=== PATIENT | female | born 1965 | race Caucasian/White ===

== ENCOUNTER 2016-06-23 14:38 | Outpatient (CLI) | payer OTHER, MEDICAID | END 2016-06-23 14:39 | disposition home or self-care (01) | DX: M47.812 Spondylosis without myelopathy or radiculopathy, cervical region (principal); M50.30 Other cervical disc degeneration, unspecified cervical region ==

== ENCOUNTER 2016-07-12 12:13 | Outpatient (CLI) | payer OTHER, MEDICARE | END 2016-07-12 12:14 | disposition home or self-care (01) | DX: I51.9 Heart disease, unspecified (principal) ==

== ENCOUNTER 2016-11-10 08:10 | Inpatient (IN) | payer OTHER, MEDICARE ==
[2016-11-10] MEDS ORDERED: IPRATROPIUM/ALBUTEROL 3 ML NEB INH ONE (08:17)
[2016-11-10] MEDS ORDERED: SODIUM CHLORIDE 0.9% 1,000 ML IV ONE (08:18)
[2016-11-10] MEDS ORDERED: DEXAMETHASONE 10 MG/ML VIAL IVP STA (08:18)
[2016-11-10] MEDS ORDERED: IPRATROPIUM/ALBUTEROL 3 ML NEB INH STA (08:18)
[2016-11-10] MEDS ORDERED: LEVALBUTEROL 1.25 MG INH ONE ×2 (08:22→10:04)
--- NOTE | 2016-11-10 08:24 | ED Physician Documentation ---
PD HPI DYSPNEA - Stated complaint Stated Complaint: SOA - Chief complaint Chief Complaint: Resp - History obtained from History obtained from: Patient, Family - History of Present Illness Timing - onset: Yesterday Timing - onset during: Rest Timing - duration: Days (1) Timing - details: Gradual onset, Still present Inciting event(s): URI Improved by: Inhaler/neb Worsened by: Exertion, Coughing Associated symptoms: Cough, Wheezing, Other (sinus congestion) Similar symptoms before: Diagnosis (COPD) Recently seen: Not recently seen - Additional information Additional information: 51-year-old female with a history of COPD was well until several days ago when she developed some sinus congestion and a cough. She has had worsening of her symptoms and has developed significant wheezing. She took four neb treatments throughout the night last night without significant relief. She did have temporary relief with each treatment. She is short of breath. She has not had fever and has not coughed up anything. Review of Systems Constitutional: denies: Fever Eyes: denies: Decreased vision Ears: denies: Ear pain Nose: reports: Rhinorrhea / runny nose, Congestion Throat: reports: Sore throat Cardiac: denies: Chest pain / pressure, Palpitations Respiratory: reports: Dyspnea, Cough, Wheezing GI: denies: Abdominal Pain, Nausea, Vomiting : denies: Dysuria, Frequency Skin: denies: Rash Musculoskeletal: denies: Neck pain PD PAST MEDICAL HISTORY - Past Medical History Cardiovascular: Coronary artery disease, [place] Respiratory: Asthma, Pneumonia, Shortness of breath, Sleep apnea, Other Neuro: Headache/migraine, Head injury Endocrine/Autoimmune: None GI: GERD FRENCH [employer]ING [employer]: Ectopic : None HEENT: Other Psych: Depression, Claustrophobia Musculoskeletal: Osteoarthritis, Chronic back pain Derm: None - Past Surgical History Past Surgical History: Yes General: Cholecystectomy, EGD Ortho: Knee replacement /FRENCH B[employer]ING FOL[employer]: Hysterectomy, Other Cardiovascular: Cardiac catheterization HEENT: Rhinoplasty - Present Medications Home Medications: Ambulatory Orders Medication Instructions Recorded Confirmed Albuterol Sulfate [Proair 1 - 52 puffs INH Q4H PRN 11/10/16 11/10/16 Respiclick] Amitriptyline [Elavil] 10 mg PO QPM 11/10/16 11/10/16 Beclomethasone 80 Mcg [Qvar 80] 1 puffs INH BID 11/10/16 11/10/16 Cholecalciferol [Vitamin D3] 5,000 unit PO DAILY 11/10/16 11/10/16 - Allergies Allergies/Adverse Reactions: Allergies Allergy/AdvReac Type Severity Reaction Status Date / Time codeine [Codeine] Allergy Severe Swelling/Hi Verified 11/10/16 08:39 ves erythromycin base Allergy Severe Anaphylaxis Verified 11/10/16 08:39 [Erythromycin Base] gabapentin Allergy Severe Anaphylaxis Verified 11/10/16 08:39 Latex, Natural Rubber Allergy Severe Blisters Verified 11/10/16 08:39 morphine Allergy Severe SOB Verified 11/10/16 08:39 pamabrom [From [facility]] Allergy Severe Respiratory Verified 11/10/16 08:39 pyrilamine maleate * Allergy Severe Respiratory Verified 11/10/16 08:39 [From [facility]] shellfish derived Allergy Severe Anaphylaxis Verified 11/10/16 08:39 venom-honey bee Allergy Severe Anaphylaxis Verified 11/10/16 08:39 [bee venom (honey bee)] chlorhexidine Allergy Intermediate Rash Verified 11/10/16 08:39 diphenhydramine Allergy Diaphoresis Verified 11/10/16 08:39 ondansetron Allergy Respiratory Verified 11/10/16 08:39 CLR AdvReac Severe Respiratory Uncoded 12/24/15 12:14 - Social History Does the pt smoke?: No Smoking Status: Former smoker Does the pt drink ETOH?: Yes Does the pt have substance abuse?: No - Immunizations Immunizations are current?: No Immunizations: Other immun not current - POLST Patient has POLST: No PD ED PE NORMAL - Vitals Vital signs reviewed: Yes (tachypneic, hypertensive and hypoxic) - General General: Well developed/nourished. No: Other (51 y/o female gasping for breath and coughing.) - HEENT HEENT: Atraumatic, PERRL, EOMI, Other (The left TM is inflamed along the umbo the right is clear) - Neck Neck: Supple, no meningeal sign, No bony TTP - Cardiac Cardiac: RRR, No murmur - Respiratory Respiratory: Other (gasping rapid shallow breaths with wheezes throughout. ) - Abdomen Abdomen: Soft, Non tender - Back Back: No CVA TTP, No spinal TTP - Derm Derm: Normal color, No rash - Extremities Extremities: No deformity, No edema - Neuro Neuro: Alert and oriented X 3, No motor deficit, No sensory deficit, Normal speech - Psych Psych: Normal mood, Normal affect Results - Vitals Vitals: Vital Signs - 24 hr 11/10/16 11/10/16 11/10/16 08:13 08:15 08:30 Temperature 36.8 C Heart Rate 99 94 94 Respiratory 42 H 26 H 24 Rate Blood Pressure 166/116 H 166/116 H 152/82 H O2 Saturation 88 L 95 96 11/10/16 11/10/16 09:00 09:25 Temperature Heart Rate 94 95 Respiratory 24 20 Rate Blood Pressure 145/62 H 140/91 H O2 Saturation 97 96 Oxygen O2 Source [With Activity] Room air O2 Source Nasal cannula Oxygen Flow Rate 4 - Labs Labs: Laboratory Tests 11/10/16 11/10/16 11/10/16 08:19 08:19 08:19 WBC 18.3 H RBC 5.08 Hgb 16.0 Hct 48.0 H MCV 94.4 MCH 31.4 H MCHC 33.3 RDW 13.6 Plt Count 212 MPV 8.1 Neut # 15.2 H Lymph # 1.6 [place] # 1.2 H Eos # 0.1 Baso # 0.1 Absolute Nucleated RBC 0.00 Nucleated RBCs 0.0 Sodium 139 Potassium 4.2 Chloride 104 Carbon Dioxide 27 Anion Gap 8.0 BUN 8 Creatinine 0.7 Estimated GFR (MDRD) 88 L Glucose 113 H Calcium 9.1 Total Bilirubin 0.8 AST 20 ALT 23 Alkaline Phosphatase 90 Troponin I < 0.04 B-Natriuretic Peptide Total Protein 7.4 Albumin 3.9 Globulin 3.5 Albumin/Globulin Ratio 1.1 Lipase 28 11/10/16 08:19 WBC RBC Hgb Hct MCV MCH MCHC RDW Plt Count MPV Neut # Lymph # [place] # Eos # Baso # Absolute Nucleated RBC Nucleated RBCs Sodium Potassium Chloride Carbon Dioxide Anion Gap BUN Creatinine Estimated GFR (MDRD) Glucose Calcium Total Bilirubin AST ALT Alkaline Phosphatase Troponin I B-Natriuretic Peptide 142 H Total Protein Albumin Globulin Albumin/Globulin Ratio Lipase - Rads (name of study) 2 view chest Radiology: Prelim report reviewed (Impression: 1. Multifocal right-sided infiltrates. 2 cardiovascular fullness, possible congestive failure.), EMP read indepedently, See rad report Procedures - IVC sono (time) 0930 Bedside IVC sono: IVC measures (cm) (1.57), IVC collapsed c insp (cm) (complete) , Dehydration PD MEDICAL DECISION MAKING - ED course Complexity details: reviewed old records, reviewed results, re-evaluated patient , considered differential, d/w patient, d/w family ED course: 51 y/o female With a history of COPD has developed cough and wheezing over the past 3 days. She normally does not have to use her inhaler more than 3-5 times per week. Today here in the emergency department she has tight wheezes and rhonchi. She is tachypneic and struggling for breath. She is administered dexamethasone 10 mg intravenously and a DuoNeb was administered followed by 3 Xopenex treatments. She remains tachypneic and hypoxic and has evidence of infiltrate on the chest x-ray and elevated white blood cell count. She is administered rocephin 1gm IV and Dr. Smith is consulted in the case and will admit the patient to the hospital. The patient states that this developed rapidly from what she thought was a sinus infection went directly into her chest. She is able to point to her chest where she feels this and she points directly to the area where she has infiltrate on her chest x-ray on the right side. The radiologist reading of the chest x-ray is questioning potential failure I suspect this is unlikely after interrogation of the patient's inferior vena cava shows a collapsing vessel. Departure - Departure Disposition: [facility] DC/Xfer Clinical Impression: COPD with acute exacerbation Pneumonia Qualifiers: Pneumonia type: due to unspecified organism Laterality: right Lung location: unspecified part of lung Qualified Code(s): J18.9 - Pneumonia, unspecified organism Condition: Fair Discharge Date/Time: 11/10/16 10:25
[2016-11-10] MEDS ORDERED: DEXAMETHASONE 10 MG/ML VIAL ONE (08:25)
[2016-11-10 08:28] LABS: BASOPHILS # (AUTO) 0.1 10^3/uL (0.0-0.1); BASOPHILS % (AUTO) 0.5 %; EOSINOPHILS # (AUTO) 0.1 10^3/uL (0.0-0.7); EOSINOPHILS % (AUTO) 0.7 %; LYMPHOCYTES # (AUTO) 1.6 10^3/uL (1.5-3.5); LYMPHOCYTES % (AUTO) 8.7 %; MEAN CORPUSCULAR HEMOGLOBIN 31.4 pg (27.0-31.0); MEAN CORPUSCULAR HGB CONC 33.3 g/dL (32.0-36.0); MEAN CORPUSCULAR VOLUME 94.4 fL (81.0-99.0); MEAN PLATELET VOLUME 8.1 fL (7.9-10.8); MONOCYTES # (AUTO) 1.2 10^3/uL (0.0-1.0); MONOCYTES % (AUTO) 6.8 %; NEUTROPHILS # (AUTO) 15.2 10^3/uL (1.5-6.6); NEUTROPHILS % (AUTO) 83.3 %; RED BLOOD COUNT 5.08 10^6/uL (4.20-5.40); RED CELL DISTRIBUTION WIDTH 13.6 % (12.0-15.0); UNCORRECTED WHITE BLOOD COUNT 18.3 x10^3/uL; WHITE BLOOD COUNT 18.3 x10^3/uL (4.8-10.8)
[2016-11-10 08:40] LABS: ALBUMIN/GLOBULIN RATIO 1.1 (1.0-2.2); BILIRUBIN,TOTAL 0.8 mg/dL (0.2-1.0); CALCIUM 9.1 mg/dL (8.5-10.3); CREATININE 0.7 mg/dL (0.4-1.0); POTASSIUM 4.2 mmol/L (3.5-5.0); TOTAL PROTEIN 7.4 g/dL (6.7-8.2)
[2016-11-10] MEDS ORDERED: LEVALBUTEROL 1.25 MG INH STA ×2 (08:40→10:03)
[2016-11-10] MEDS ORDERED: cefTRIAXone 1 GM in SODIUM CHLORIDE 0.9% MINIBAG 100 ML IV STA (09:10)
--- NOTE | 2016-11-10 09:12 | XRAY Preliminary Report ---
Exam: XR Chest 1 View IMPRESSION: 1. Multifocal right-sided infiltrates. 2. Cardiovascular fullness, possible congestive failure. [facility] SITE ID: [id number]
--- NOTE | 2016-11-10 09:14 | XRAY Report ---
EXAM: CHEST RADIOGRAPHY EXAM DATE: 11/10/2016 08:54 AM. CLINICAL HISTORY: Dyspnea, cough. COMPARISON: 15 October 2015. TECHNIQUE: 1 view. FINDINGS: Lungs/Pleura: Diffuse hazy prominence of lung markings with localized infiltrates in the right lower lobe and the right upper lobe marginating along the minor fissure. No consolidation, definite effusio n, or pneumothorax. Mediastinum: The overall heart size upper limit of normal, probably unchanged. Mild vascular fullness . Other: Degenerative changes. IMPRESSION: 1. Multifocal right-sided infiltrates. 2. Cardiovascular fullness, possible congestive failure. [facility] Referring Provider Line: [phone] SITE ID: [id number]
[2016-11-10] MEDS ORDERED: cefTRIAXone 1 GM VIAL ONE (09:16)
[2016-11-10] MEDS ORDERED: MAGNESIUM SULFATE 2 GRAM 50 ML IV ONE ×2 (09:27→09:29)
[2016-11-10] MEDS ORDERED: DOXYCYCLINE 100 MG TABLET PO STA (09:45)
[2016-11-10] MEDS ORDERED: SODIUM CHLORIDE FLUSH 0.9% 10 ML SYRINGE IVP PRN (09:54)
[2016-11-10] MEDS ORDERED: cefTRIAXone 2 GM in SODIUM CHLORIDE 0.9% MINIBAG 100 ML IV STA (09:58)
[2016-11-10] MEDS ORDERED: DOXYCYCLINE 100 MG TABLET PO ONE (10:01)
[2016-11-10] MEDS ORDERED: SODIUM CHLORIDE INHALATION 3 ML NEB ONE (10:04)
[2016-11-10] MEDS: ALBUTEROL NEB 2.5 MG/3 ML INH PRN ×2 (10:45→15:00)
[2016-11-10] MEDS ORDERED: LORazepam 0.5 MG TABLET PO PRN (10:54)
[2016-11-10] MEDS: MORPHINE 2 MG/ML SYRINGE IVP PRN ×2 (11:06→16:17)
[2016-11-10 11:10] LABS: ABG ANALYSIS TIME 1055; ABG HCO3 25.1 mmol/L (22.0-26.0); ABG O2 DEVICE NASAL CANNULA; ABG OXYGEN SATURATION 98 % (94-98); ABG PCO2 40 mmHg (34-45); ABG PO2 111 mmHg (80-100); ABG SITE OF DRAW RIGHT RADIAL; ALLEN TEST POSITIVE
[2016-11-10] MEDS: methylPREDNISolone SUCCINATE 40 MG/ML VIAL IVP SCH ×3 (11:17→21:48)
[2016-11-10] MEDS: IPRATROPIUM/ALBUTEROL 3 ML NEB INH SCH ×3 (12:30→20:30)
[2016-11-10] MEDS: SODIUM CHLORIDE FLUSH 0.9% 10 ML SYRINGE IVP SCH ×2 (13:08→21:48)
[2016-11-10] MEDS: ACETAMINOPHEN 325 MG TABLET PO PRN (13:10)
[2016-11-10] MEDS: ONDANSETRON ODT 4 MG TABLET TL PRN (18:05)
[2016-11-10] MEDS: DOXYCYCLINE 100 MG TABLET PO SCH (21:48)
[2016-11-11] MEDS: ALBUTEROL NEB 2.5 MG/3 ML INH PRN ×3 (00:05→04:40)
[2016-11-11] MEDS: ACETAMINOPHEN 325 MG TABLET PO PRN ×3 (02:08→22:20)
[2016-11-11] MEDS: guaiFENesin/CODEINE 5 ML UDC PO PRN ×4 (04:20→23:40)
[2016-11-11] MEDS: MORPHINE 2 MG/ML SYRINGE IVP PRN (05:02)
[2016-11-11] MEDS: SODIUM CHLORIDE FLUSH 0.9% 10 ML SYRINGE IVP SCH ×3 (05:03→20:30)
[2016-11-11] MEDS: methylPREDNISolone SUCCINATE 40 MG/ML VIAL IVP SCH (05:03)
--- NOTE | 2016-11-11 06:35 | HISTORY & PHYSICAL EXAMINATION ---
CHIEF COMPLAINT: Shortness of breath and wheeze. HISTORY OF PRESENT ILLNESS: Patient is a 51-year-old female with history of COPD not on home oxygen, tobacco dependence, JAVID not using CPAP, and obesity who presents with a 3 day hx of progressive congestion, cough, sob and wheeze. Pt states she initially developed nasal congestion that went into "my chest". She also reports cough and shortness of breath, as well as muscle and joint aches. On the night prior to admit, she had increased difficulty breathing and coughed up "chunks of whitish stuff covered in blood." She used her nebulizer 4 times between midnight and 7 a.m. with little improvement in her symptoms. She reports chest pain with cough and states her ears hurt and she has head pain. The patient denies nausea and vomiting. She has no dysphagia or heartburn. She states she did not take her temperature, but felt hot and had chills that started on the night prior to admission. She reports chronic lower extremity edema. No change in weight. Denies sick contacts. ALLERGIES: REVIEWED. THE PATIENT HAS A LONG LIST OF ALLERGIES INCLUDING ERYTHROMYCIN, WHICH SHE STATES CAUSES SWELLING. MEDICATIONS 1. Albuterol. 2. Beclomethasone. 3. Amitriptyline. PAST MEDICAL HISTORY: COPD, obstructive sleep apnea, depressive disorder, obesity. SOCIAL HISTORY: The patient is caring for her granddaughter. She smokes about 1/ 2 pack per day. Denies alcohol or drug use. FAMILY HISTORY: Brother of multiple sclerosis at 40. Both her mother and father had coronary artery disease and father had skin cancer. PHYSICAL EXAMINATION VITAL SIGNS: The patient is afebrile with a temperature of 36.8, heart rate is 96, blood pressure 136/90, respiratory rate 24. The patient is 96% on 4 liters and was 88% on room air on admission to the emergency department. GENERAL: The patient is a pleasant obese female. She is alert, has mild to moderate respiratory distress and audible wheeze. She is able to speak in short sentences. Is lying back in a 45-degree angle. HEENT: Pupils equal, round and reactive to light. EOMI, anicteric. Oropharynx is benign. NECK: Supple without adenopathy. HEART: Tachycardic, regular. No murmurs, rubs, or gallops appreciated. LUNGS: Coarse breath sounds, diffuse audible inspiratory and expiratory wheeze. No crackles or rhonchi appreciated. ABDOMEN: Obese, soft, nontender, nondistended. No hepatosplenomegaly appropriated. Positive bowel tones. EXTREMITIES: No clubbing, cyanosis, or edema. LABORATORY: White blood count 18.3, hematocrit 48, platelet count 212. Sodium is 139, potassium is 4.2. BUN is 8, creatinine 0.8. LFTs within normal limits. BNP is 142. Chest x-ray was personally reviewed and interpreted by me and shows right-sided infiltrate. No effusion. Possible mild cardiomegaly. ASSESSMENT AND PLAN: The patient is a 51-year-old female who has a history of chronic obstructive pulmonary disease and tobacco dependence who presents with pneumonia and COPD exacerbation. 1. Acute hypoxic respiratory failure secondary to pneumonia and chronic obstructive pulmonary disease exacerbation. The patient will be admitted to medicine. She was given Decadron in the ER and will be continued on Solu-Medrol 60 mg IV q.6 and tapered as she improves. Continue scheduled DuoNebs and as needed albuterol neb. Antibiotics for pneumonia. Recommend tobacco cessation. 2. Community acquired pneumonia. The patient was started on ceftriaxone and doxycycline. 3. Acute chronic obstructive pulmonary disease exacerbation. Suspect due to pneumonia and ongoing tobacco dependence. Treat with bronchodilators, antibiotics, and pulmonary toilet. 4. Tobacco dependence. Encouraged the patient to quit smoking tobacco. 5. Obesity. Recommend weight reduction. 6. Obstructive sleep apnea. The patient is not using a CPAP. States it was stolen. Encouraged her to follow up with her primary care provider to obtain a new machine. 7. Depressive disorder and anxiety. Suspect this is making it more difficult for her to breathe. Will treat anxiety with Ativan and low dose morphine. Encouraged the patient to follow up with a primary care provider for anxiolytic therapy. CODE STATUS: Discussed with the patient. She is full code. MTDD
[2016-11-11] MEDS: DOXYCYCLINE 100 MG TABLET PO SCH ×2 (08:20→20:26)
[2016-11-11] MEDS: DOCUSATE SODIUM 250 MG CAPSULE PO SCH (08:20)
[2016-11-11] MEDS: POLYETHYLENE GLYCOL 3350 17 GM PACKET PO SCH (08:21)
[2016-11-11] MEDS: SENNA 8.6 MG TABLET PO SCH (08:21)
[2016-11-11] MEDS: ENOXAPARIN 40 MG/0.4 ML SYRINGE SUBQ SCH (08:21)
[2016-11-11] MEDS: IPRATROPIUM/ALBUTEROL 3 ML NEB INH SCH ×3 (09:50→21:00)
[2016-11-11 10:51] LABS: BASOPHILS % (AUTO) 0.1 %; HCT - HEMATOCRIT 47.1 % (37.0-47.0); HGB - HEMOGLOBIN 15.3 g/dL (12.0-16.0); LYMPHOCYTES # (AUTO) 0.8 10^3/uL (1.5-3.5); LYMPHOCYTES % (AUTO) 3.8 %; MEAN CORPUSCULAR HEMOGLOBIN 31.3 pg (27.0-31.0); MEAN CORPUSCULAR HGB CONC 32.5 g/dL (32.0-36.0); MEAN CORPUSCULAR VOLUME 96.1 fL (81.0-99.0); MEAN PLATELET VOLUME 8.5 fL (7.9-10.8); MONOCYTES # (AUTO) 0.7 10^3/uL (0.0-1.0); MONOCYTES % (AUTO) 3.4 %; NEUTROPHILS # (AUTO) 19.9 10^3/uL (1.5-6.6); NEUTROPHILS % (AUTO) 92.7 %; NUCLEATED RED BLOOD CELLS AUTO 0.1 /100WBC; RED CELL DISTRIBUTION WIDTH 13.9 % (12.0-15.0); UNCORRECTED WHITE BLOOD COUNT 21.4 x10^3/uL; WHITE BLOOD COUNT 21.4 x10^3/uL (4.8-10.8)
[2016-11-11 10:58] LABS: CALCIUM 9.9 mg/dL (8.5-10.3); CREATININE 0.8 mg/dL (0.4-1.0); POTASSIUM 4.1 mmol/L (3.5-5.0)
[2016-11-11 11:12] LABS: HEMOGLOBIN A1C 0.71 g/dL
[2016-11-11 11:41] LABS: PLATELET ESTIMATE, MANUAL NORMAL (130-450,000) (NORMAL); PLATELET MORPHOLOGY NORMAL APPEARANCE (NORMAL)
[2016-11-11] MEDS: QUEtiapine 25 MG TABLET PO SCH ×2 (12:00→20:27)
[2016-11-11] MEDS: predniSONE 20 MG TABLET PO SCH (12:04)
--- NOTE | 2016-11-11 14:57 | PROVIDER PROGRESS NOTE ---
Assessment/Plan - Problem List (1) Pneumonia Qualifiers: Pneumonia type: due to unspecified organism Laterality: right Lung location: unspecified part of lung Qualified Code(s): J18.9 - Pneumonia, unspecified organism Assessment/Plan: # Acute hypoxic respiratory failure due to copd exacerbation and CAP supplemental oxygen, abx, steroids and bronchodilators # CAP continue Ceftriaxone and doxycycline # Acute COPD exacerbation not on oxygen at baseline was 88% on RA on admit. continue rx as above # Tobacco dependence recommend cessation # Hyperglycemia - new problem due to steroids pt also eating a lot of sugary / high carb snacks change to carb controlled diet # Morbid obesity BMI 40, encouraged dietary changes and had nutrition make recommendations to pt. - Current Meds Current Meds: Current Medications Generic Name Dose Route Start Last Admin Trade Name Freq PRN Reason Stop Dose Admin Acetaminophen 650 mg 11/10/16 09:54 11/11/16 14:15 Tylenol PO 650 mg Q4HR PRN Administration Pain 1 to 4 Albuterol 2.5 mg 11/10/16 10:15 11/11/16 04:40 INH 11/13/16 10:14 2.5 mg Q2HR PRN Administration Shortness of Air/Wheezing Albuterol/Ipratropium 3 ml 11/10/16 13:00 11/11/16 09:50 Duoneb INH 3 ml RTTID ROMAN Administration Docusate Sodium 250 - 500 mg 11/11/16 09:00 11/11/16 08:20 Colace 250mg Capsule PO 250 mg DAILY ROMAN Administration Doxycycline Hyclate 100 mg 11/10/16 21:00 11/11/16 08:20 Vibramycin PO 100 mg BID ROMAN Administration Enoxaparin Sodium 40 mg 11/11/16 09:00 11/11/16 08:21 Lovenox SUBQ 40 mg DAILY ROMAN Administration Guaifenesin/Codeine Phosphate 5 ml 11/11/16 02:34 11/11/16 12:04 Robitussin Ac PO 5 ml Q6HR PRN Administration Cough Ondansetron HCl 4 mg 11/10/16 09:54 11/10/16 18:05 Zofran Odt TL 4 mg Q6HR PRN Administration Nausea / Vomiting Polyethylene Glycol 17 gm 11/11/16 09:00 11/11/16 08:21 Miralax PO 17 gm DAILY ROMAN Administration Prednisone 60 mg 11/11/16 12:00 11/11/16 12:04 Deltasone PO 60 mg DAILYWM ROMAN Administration Quetiapine Fumarate 25 mg 11/11/16 12:00 11/11/16 12:00 Seroquel PO Not Given BID ROMAN Senna 8.6 - 17.2 mg 11/11/16 09:00 11/11/16 08:21 Senokot PO 8.6 mg DAILY ROMAN Administration Sodium Chloride 10 ml 11/10/16 14:00 11/11/16 14:31 Normal Saline Flush 0.9% IVP 10 ml Q8HR ROMAN Administration - Lab Result Lab results reviewed: Yes Fish Bone Diagrams: 11/11/16 10:34 11/11/16 10:34 - Additional Planning My Orders: My Active Orders 11/10/16 14:00 Sodium Chloride Flush 0.9% [Normal Saline Flush 0.9%] 10 ml IVP Q8HR 11/10/16 21:00 Doxycycline [Vibramycin] 100 mg PO BID 11/11/16 09:00 Docusate Sodium 250Mg Capsule [Colace 250Mg Capsule] 250 - 500 mg PO DAILY Enoxaparin [Lovenox] 40 mg SUBQ DAILY Polyethylene Glycol 3350 [Miralax] 17 gm PO DAILY Senna [Senokot] 8.6 - 17.2 mg PO DAILY 11/11/16 12:00 QUEtiapine [SEROquel] 25 mg PO BID predniSONE [Deltasone] 60 mg PO DAILYWM 11/11/16 Lunch Carb-controlled Diet [DIET] 11/12/16 05:00 CBC W/O DIFF (HEMOGRAM) [HEME] DAILYLAB Chem 8 [BMP - BASIC METABOLIC PANEL] [CHEM] DAILYLAB Subjective - Subjective Patient Reports: Shortness of Breath (pt continues to have sob, wheeze. denies n/v or cp) Nursing Reports: Other (pt's wheeze is not improved with nebs. was better for several hrs after she recieved IV morphine) Objective Vital Signs: Vital Signs - 24 hr 11/10/16 11/10/16 11/10/16 15:00 16:20 17:50 Temperature 36.6 C Heart Rate 89 85 Heart Rate [ 107 H Brachial] Respiratory 20 20 18 Rate Blood Pressure 135/35 H [Right Brachial artery] O2 Saturation 95 11/10/16 11/10/16 11/11/16 20:30 20:45 00:05 Temperature 36.3 C L Heart Rate 93 84 Heart Rate [ 108 H Brachial] Respiratory 22 20 20 Rate Blood Pressure 150/74 H [Right Brachial artery] O2 Saturation 96 11/11/16 11/11/16 11/11/16 00:54 02:15 04:40 Temperature 36.9 C Heart Rate 97 102 H Heart Rate [ 95 Brachial] Respiratory 24 22 20 Rate Blood Pressure 151/76 H [Right Brachial artery] O2 Saturation 92 11/11/16 11/11/16 11/11/16 04:48 08:25 09:50 Temperature 36.6 C 36.5 C Heart Rate 74 Heart Rate [ 67 44 L Brachial] Respiratory 24 20 20 Rate Blood Pressure 124/68 128/46 L [Right Brachial artery] O2 Saturation 100 93 11/11/16 12:41 Temperature 36.5 C Heart Rate Heart Rate [ 80 Brachial] Respiratory 18 Rate Blood Pressure 135/67 H [Right Brachial artery] O2 Saturation 96 Oxygen O2 Source Nasal cannula I&O (Last 24 Hrs): Intake and Output Totals x24h 11/09/16 11/10/16 11/11/16 23:59 23:59 23:59 Intake Total 1640 956 Output Total 500 Balance 1140 956 General: Alert, Oriented x3, No acute distress Cardiovascular: Regular rate, Normal S1, Normal S2, No murmurs Respiratory: Chest non-tender, No respiratory distress, Other (audible wheeze, worse with pt sitting up and when family in room. She appeared comfortable reading when I first entered the room) Abdomen: Normal bowel sounds, Soft, No tenderness, No masses (obese) Extremities: No clubbing, No edema, No tenderness/swelling - Results Results: Laboratory Results WBC 21.4 x10^3/uL (4.8-10.8) H 11/11/16 10:34 RBC 4.90 10^6/uL (4.20-5.40) 11/11/16 10:34 Hgb 15.3 g/dL (12.0-16.0) 11/11/16 10:34 Hct 47.1 % (37.0-47.0) H 11/11/16 10:34 MCV 96.1 fL (81.0-99.0) 11/11/16 10:34 MCH 31.3 pg (27.0-31.0) H 11/11/16 10:34 MCHC 32.5 g/dL (32.0-36.0) 11/11/16 10:34 RDW 13.9 % (12.0-15.0) 11/11/16 10:34 Plt Count 212 10^3/uL (130-450) 11/11/16 10:34 MPV 8.5 fL (7.9-10.8) 11/11/16 10:34 Neut # 19.9 10^3/uL (1.5-6.6) H 11/11/16 10:34 Lymph # 0.8 10^3/uL (1.5-3.5) L 11/11/16 10:34 [place] # 0.7 10^3/uL (0.0-1.0) 11/11/16 10:34 Eos # 0.0 10^3/uL (0.0-0.7) 11/11/16 10:34 Baso # 0.0 10^3/uL (0.0-0.1) 11/11/16 10:34 Absolute Nucleated RBC 0.01 x10^3/uL 11/11/16 10:34 Nucleated RBCs 0.1 /100WBC 11/11/16 10:34 Manual Slide Review Indicated 11/11/16 10:34 Platelet Estimate NORMAL (130-450,000) (NORMAL) 11/11/16 10:34 Platelet Morphology NORMAL APPEARANCE (NORMAL) 11/11/16 10:34 RBC Morph Micro Appear NORMAL APPEARANCE (NORMAL) 11/11/16 10:34 Bld Gas Analysis Time 1055 11/10/16 10:45 Sample Site RIGHT RADIAL 11/10/16 10:45 ABG pH 7.40 (7.35-7.45) 11/10/16 10:45 ABG pCO2 40 mmHg (34-45) 11/10/16 10:45 ABG pO2 111 mmHg (80-100) H 11/10/16 10:45 ABG HCO3 25.1 mmol/L (22.0-26.0) 11/10/16 10:45 ABG Total CO2 26.0 MMOL/L (21.0-29.0) 11/10/16 10:45 ABG O2 Saturation 98 % (94-98) 11/10/16 10:45 ABG Base Excess 0.0 mmol/L (-2.0-3.0) 11/10/16 10:45 Elio Test POSITIVE 11/10/16 10:45 O2 Delivery Device NASAL CANNULA 11/10/16 10:45 O2 Liters/Min 4.00 LPM 11/10/16 10:45 Sodium 137 mmol/L (135-145) 11/11/16 10:34 Potassium 4.1 mmol/L (3.5-5.0) 11/11/16 10:34 Chloride 103 mmol/L (101-111) 11/11/16 10:34 Carbon Dioxide 26 mmol/L (21-32) 11/11/16 10:34 Anion Gap 8.0 (6-13) 11/11/16 10:34 BUN 14 mg/dL (6-20) 11/11/16 10:34 Creatinine 0.8 mg/dL (0.4-1.0) 11/11/16 10:34 Estimated GFR (MDRD) 75 (>89) L 11/11/16 10:34 Glucose 316 mg/dL (70-100) H 11/11/16 10:34 POC Whole Bld Glucose 220 mg/dL (70 - 100) H 11/11/16 07:57 Glycated Hemoglobin 6.0 % (4.6-6.2) 11/11/16 10:34 Estim Average Glucose 126 (70-100) H 11/11/16 10:34 Calcium 9.9 mg/dL (8.5-10.3) 11/11/16 10:34 Total Bilirubin 0.8 mg/dL (0.2-1.0) 11/10/16 08:19 AST 20 IU/L (10-42) 11/10/16 08:19 ALT 23 IU/L (10-60) 11/10/16 08:19 Alkaline Phosphatase 90 IU/L (42-121) 11/10/16 08:19 Troponin I < 0.04 ng/mL (<0.49) 11/10/16 08:19 B-Natriuretic Peptide 142 pg/mL (5-100) H 11/10/16 08:19 Total Protein 7.4 g/dL (6.7-8.2) 11/10/16 08:19 Albumin 3.9 g/dL (3.2-5.5) 11/10/16 08:19 Globulin 3.5 g/dL (2.1-4.2) 11/10/16 08:19 Albumin/Globulin Ratio 1.1 (1.0-2.2) 11/10/16 08:19 Lipase 28 U/L (22-51) 11/10/16 08:19 - Procedures Procedures: Procedures ESOPHAGOGASTRODUODENOSCOPY [EGD] W/CLOSED BIOPSY (11/29/13) MANUAL RUPT JOINT ADHES (04/27/14) TOTAL KNEE REPLACEMENT (06/16/14)
[2016-11-11] MEDS: ONDANSETRON ODT 4 MG TABLET TL PRN (17:29)
[2016-11-11] MEDS ORDERED: BISACODYL 10 MG SUPP PR SCH (19:18)
[2016-11-11] MEDS ORDERED: KETOROLAC 60 MG/2 ML VIAL IVP STA (20:41)
[2016-11-11] MEDS ORDERED: KETOROLAC 30 MG/ML VIAL IVP SCH (22:20)
[2016-11-12] MEDS: ALBUTEROL NEB 2.5 MG/3 ML INH PRN ×2 (02:15)
[2016-11-12] MEDS: ACETAMINOPHEN 325 MG TABLET PO PRN ×2 (02:47→15:17)
[2016-11-12] MEDS: BENZONATATE 100 MG CAPSULE PO PRN (02:48)
[2016-11-12] MEDS: BENZOCAINE/MENTHOL LOZENGE MM PRN ×2 (03:15→13:11)
[2016-11-12 06:39] LABS: HCT - HEMATOCRIT 45.1 % (37.0-47.0); HGB - HEMOGLOBIN 14.9 g/dL (12.0-16.0); MEAN CORPUSCULAR HEMOGLOBIN 31.8 pg (27.0-31.0); MEAN CORPUSCULAR HGB CONC 33.1 g/dL (32.0-36.0); MEAN CORPUSCULAR VOLUME 96.1 fL (81.0-99.0); MEAN PLATELET VOLUME 8.4 fL (7.9-10.8); RED BLOOD COUNT 4.7 10^6/uL (4.20-5.40); RED CELL DISTRIBUTION WIDTH 13.8 % (12.0-15.0); WHITE BLOOD COUNT 21.3 x10^3/uL (4.8-10.8)
[2016-11-12 06:45] LABS: CALCIUM 9.8 mg/dL (8.5-10.3); POTASSIUM 5.5 mmol/L (3.5-5.0)
[2016-11-12] MEDS: SODIUM CHLORIDE FLUSH 0.9% 10 ML SYRINGE IVP SCH ×3 (07:02→20:30)
[2016-11-12] MEDS: IPRATROPIUM/ALBUTEROL 3 ML NEB INH SCH ×4 (07:42→21:05)
[2016-11-12] MEDS ORDERED: SODIUM CHLORIDE 0.9% 1,000 ML IV ONE (07:44)
[2016-11-12] MEDS: guaiFENesin/CODEINE 5 ML UDC PO PRN ×2 (08:48→16:57)
[2016-11-12] MEDS: DOXYCYCLINE 100 MG TABLET PO SCH ×2 (08:51→20:30)
[2016-11-12] MEDS: ENOXAPARIN 40 MG/0.4 ML SYRINGE SUBQ SCH (08:51)
[2016-11-12] MEDS: SENNA 8.6 MG TABLET PO SCH (08:51)
[2016-11-12] MEDS: predniSONE 20 MG TABLET PO SCH (08:51)
[2016-11-12] MEDS: DOCUSATE SODIUM 250 MG CAPSULE PO SCH (08:51)
[2016-11-12] MEDS: POLYETHYLENE GLYCOL 3350 17 GM PACKET PO SCH (08:52)
[2016-11-12] MEDS ORDERED: LACTULOSE 10 GM /15 ML UDC PO SCH (09:00)
--- NOTE | 2016-11-12 12:10 | PROVIDER PROGRESS NOTE ---
Assessment/Plan - Problem List (1) Pneumonia Qualifiers: Pneumonia type: due to unspecified organism Laterality: right Lung location: unspecified part of lung Qualified Code(s): J18.9 - Pneumonia, unspecified organism Assessment/Plan: # Acute hypoxic respiratory failure due to copd exacerbation and CAP overall improving, on RA. supplemental oxygen, abx, steroids and bronchodilators # CAP continue Ceftriaxone and doxycycline # Acute COPD exacerbation not on oxygen at baseline was 88% on RA on admit, now on RA. taper prednisone 60 mg to 40 mg 11/12 continue bronchodilators # Tobacco dependence recommend cessation # Hyperglycemia - new problem due to steroids pt also eating a lot of sugary / high carb snacks improved with change to carb controlled diet # Morbid obesity BMI 40, encouraged dietary changes and had nutrition make recommendations to pt. # DVT ppx Lovenox - Current Meds Current Meds: Current Medications Generic Name Dose Route Start Last Admin Trade Name Freq PRN Reason Stop Dose Admin Acetaminophen 650 mg 11/10/16 09:54 11/12/16 02:47 Tylenol PO 650 mg Q4HR PRN Administration Pain 1 to 4 Albuterol 2.5 mg 11/10/16 10:15 11/12/16 02:15 INH 11/13/16 10:14 2.5 mg Q2HR PRN Administration Shortness of Air/Wheezing Albuterol/Ipratropium 3 ml 11/10/16 13:00 11/12/16 07:42 Duoneb INH 3 ml RTTID ROMAN Administration Benzonatate 100 mg 11/11/16 02:34 11/12/16 02:48 Tessalon PO 100 mg TID PRN Administration Cough Docusate Sodium 250 - 500 mg 11/11/16 09:00 11/12/16 08:51 Colace 250mg Capsule PO 250 mg DAILY ROMAN Administration Doxycycline Hyclate 100 mg 11/10/16 21:00 11/12/16 08:51 Vibramycin PO 100 mg BID ROMAN Administration Enoxaparin Sodium 40 mg 11/11/16 09:00 11/12/16 08:51 Lovenox SUBQ 40 mg DAILY ROMAN Administration Guaifenesin/Codeine Phosphate 5 ml 11/11/16 02:34 11/12/16 08:48 Robitussin Ac PO 5 ml Q6HR PRN Administration Cough Sodium Chloride 1,000 mls @ 200 mls/hr 11/12/16 07:44 11/12/16 08:49 Normal Saline 0.9% IV 11/12/16 12:43 200 mls/hr ONCE ONE Administration Ondansetron HCl 4 mg 11/10/16 09:54 11/11/16 17:29 Zofran Odt TL 4 mg Q6HR PRN Administration Nausea / Vomiting Polyethylene Glycol 17 gm 11/11/16 09:00 11/12/16 08:52 Miralax PO 17 gm DAILY ROMAN Administration Prednisone 60 mg 11/11/16 12:00 11/12/16 08:51 Deltasone PO 60 mg DAILYWM ROMAN Administration Senna 8.6 - 17.2 mg 11/11/16 09:00 11/12/16 08:51 Senokot PO 8.6 mg DAILY ROMAN Administration Sodium Chloride 10 ml 11/10/16 09:54 11/11/16 22:46 Normal Saline Flush 0.9% IVP 10 ml PRN PRN Administration NEEDED PER PROVIDER ORDERS Sodium Chloride 10 ml 11/10/16 14:00 11/12/16 07:02 Normal Saline Flush 0.9% IVP 10 ml Q8HR ROMAN Administration Throat Lozenges 1 lozenge 11/12/16 02:49 11/12/16 03:15 Cepacol MM 1 lozenge Q2HR PRN Administration Throat pain - Lab Result Fish Bone Diagrams: 11/12/16 05:53 11/12/16 05:53 - Additional Planning My Orders: My Active Orders 11/11/16 12:00 predniSONE [Deltasone] 60 mg PO DAILYWM 11/11/16 Lunch Carb-controlled Diet [DIET] 11/12/16 02:49 Benzocaine/Menthol [Cepacol] 1 lozenge MM Q2HR PRN 11/12/16 07:44 Sodium Chloride 0.9% [Normal Saline 0.9%] 1,000 ml IV ONCE Subjective - Subjective Patient Reports: Shortness of Breath (continues to wheeze and feel sob although feeling better than yesterday. doing well with carb controlled diet.) Objective Vital Signs: Vital Signs - 24 hr 11/11/16 11/11/16 11/11/16 12:41 15:57 16:30 Temperature 36.5 C 36.6 C Heart Rate 76 Heart Rate [ 80 70 Brachial] Respiratory 18 16 16 Rate Blood Pressure 135/67 H 129/67 [Right Brachial artery] O2 Saturation 96 92 11/11/16 11/11/16 11/11/16 20:30 21:00 23:43 Temperature 36.7 C 36.6 C Heart Rate 64 Heart Rate [ 67 79 Brachial] Respiratory 16 16 16 Rate Blood Pressure 132/81 H 156/92 H [Right Brachial artery] O2 Saturation 97 92 11/12/16 11/12/16 11/12/16 00:00 02:15 05:00 Temperature 36.6 C Heart Rate 76 78 Heart Rate [ 77 Brachial] Respiratory 16 16 18 Rate Blood Pressure 133/72 H [Right Brachial artery] O2 Saturation 96 11/12/16 11/12/16 11/12/16 07:50 08:31 11:50 Temperature 36.7 C 36.7 C Heart Rate 84 Heart Rate [ 76 66 Brachial] Respiratory 20 16 19 Rate Blood Pressure 137/73 H 84/55 L [Right Brachial artery] O2 Saturation 93 96 Oxygen O2 Source Room air I&O (Last 24 Hrs): Intake and Output Totals x24h 11/10/16 11/11/16 11/12/16 23:59 23:59 23:59 Intake Total 1640 1456 570 Output Total 500 Balance 1140 1456 570 General: Alert (sitting up at side of bed, nad) Cardiovascular: Regular rate, Normal S1, Normal S2 Respiratory: Chest non-tender (diffuse wheeze, less labored/ anxious than yesterday) Abdomen: Normal bowel sounds, Soft (obese), No tenderness, No masses Extremities: No edema, No tenderness/swelling - Results Results: Laboratory Results WBC 21.3 x10^3/uL (4.8-10.8) H 11/12/16 05:53 RBC 4.70 10^6/uL (4.20-5.40) 11/12/16 05:53 Hgb 14.9 g/dL (12.0-16.0) 11/12/16 05:53 Hct 45.1 % (37.0-47.0) 11/12/16 05:53 MCV 96.1 fL (81.0-99.0) 11/12/16 05:53 MCH 31.8 pg (27.0-31.0) H 11/12/16 05:53 MCHC 33.1 g/dL (32.0-36.0) 11/12/16 05:53 RDW 13.8 % (12.0-15.0) 11/12/16 05:53 Plt Count 214 10^3/uL (130-450) 11/12/16 05:53 MPV 8.4 fL (7.9-10.8) 11/12/16 05:53 Neut # 19.9 10^3/uL (1.5-6.6) H 11/11/16 10:34 Lymph # 0.8 10^3/uL (1.5-3.5) L 11/11/16 10:34 [place] # 0.7 10^3/uL (0.0-1.0) 11/11/16 10:34 Eos # 0.0 10^3/uL (0.0-0.7) 11/11/16 10:34 Baso # 0.0 10^3/uL (0.0-0.1) 11/11/16 10:34 Absolute Nucleated RBC 0.01 x10^3/uL 11/11/16 10:34 Nucleated RBCs 0.1 /100WBC 11/11/16 10:34 Manual Slide Review Indicated 11/11/16 10:34 Platelet Estimate NORMAL (130-450,000) (NORMAL) 11/11/16 10:34 Platelet Morphology NORMAL APPEARANCE (NORMAL) 11/11/16 10:34 RBC Morph Micro Appear NORMAL APPEARANCE (NORMAL) 11/11/16 10:34 Bld Gas Analysis Time 1055 11/10/16 10:45 Sample Site RIGHT RADIAL 11/10/16 10:45 ABG pH 7.40 (7.35-7.45) 11/10/16 10:45 ABG pCO2 40 mmHg (34-45) 11/10/16 10:45 ABG pO2 111 mmHg (80-100) H 11/10/16 10:45 ABG HCO3 25.1 mmol/L (22.0-26.0) 11/10/16 10:45 ABG Total CO2 26.0 MMOL/L (21.0-29.0) 11/10/16 10:45 ABG O2 Saturation 98 % (94-98) 11/10/16 10:45 ABG Base Excess 0.0 mmol/L (-2.0-3.0) 11/10/16 10:45 Elio Test POSITIVE 11/10/16 10:45 O2 Delivery Device NASAL CANNULA 11/10/16 10:45 O2 Liters/Min 4.00 LPM 11/10/16 10:45 Sodium 137 mmol/L (135-145) 11/12/16 05:53 Potassium 5.5 mmol/L (3.5-5.0) H 11/12/16 05:53 Chloride 102 mmol/L (101-111) 11/12/16 05:53 Carbon Dioxide 28 mmol/L (21-32) 11/12/16 05:53 Anion Gap 7.0 (6-13) 11/12/16 05:53 BUN 30 mg/dL (6-20) H 11/12/16 05:53 Creatinine 1.0 mg/dL (0.4-1.0) 11/12/16 05:53 Estimated GFR (MDRD) 58 (>89) L 11/12/16 05:53 Glucose 145 mg/dL (70-100) H 11/12/16 05:53 POC Whole Bld Glucose 136 mg/dL (70 - 100) H 11/12/16 07:42 Glycated Hemoglobin 6.0 % (4.6-6.2) 11/11/16 10:34 Estim Average Glucose 126 (70-100) H 11/11/16 10:34 Calcium 9.8 mg/dL (8.5-10.3) 11/12/16 05:53 Total Bilirubin 0.8 mg/dL (0.2-1.0) 11/10/16 08:19 AST 20 IU/L (10-42) 11/10/16 08:19 ALT 23 IU/L (10-60) 11/10/16 08:19 Alkaline Phosphatase 90 IU/L (42-121) 11/10/16 08:19 Troponin I < 0.04 ng/mL (<0.49) 11/10/16 08:19 B-Natriuretic Peptide 142 pg/mL (5-100) H 11/10/16 08:19 Total Protein 7.4 g/dL (6.7-8.2) 11/10/16 08:19 Albumin 3.9 g/dL (3.2-5.5) 11/10/16 08:19 Globulin 3.5 g/dL (2.1-4.2) 11/10/16 08:19 Albumin/Globulin Ratio 1.1 (1.0-2.2) 11/10/16 08:19 Lipase 28 U/L (22-51) 11/10/16 08:19 - Procedures Procedures: Procedures ESOPHAGOGASTRODUODENOSCOPY [EGD] W/CLOSED BIOPSY (11/29/13) MANUAL RUPT JOINT ADHES (04/27/14) TOTAL KNEE REPLACEMENT (06/16/14)
[2016-11-12] MEDS ORDERED: MAGNESIUM CITRATE 296 ML BOTTLE PO PRN (17:00)
[2016-11-13] MEDS: guaiFENesin/CODEINE 5 ML UDC PO PRN ×2 (00:05→06:08)
[2016-11-13] MEDS: BENZOCAINE/MENTHOL LOZENGE MM PRN ×2 (01:17→10:11)
[2016-11-13] MEDS: ALBUTEROL NEB 2.5 MG/3 ML INH PRN (02:05)
[2016-11-13] MEDS: ACETAMINOPHEN 325 MG TABLET PO PRN ×2 (02:23→06:07)
[2016-11-13] MEDS: BENZONATATE 100 MG CAPSULE PO PRN (02:24)
[2016-11-13] MEDS: SODIUM CHLORIDE FLUSH 0.9% 10 ML SYRINGE IVP SCH (06:08)
[2016-11-13] MEDS: IPRATROPIUM/ALBUTEROL 3 ML NEB INH SCH (07:30)
[2016-11-13] MEDS ORDERED: predniSONE 20 MG TABLET PO SCH (08:00)
[2016-11-13 08:03] VITALS: BP 121/70
[2016-11-13] MEDS: SENNA 8.6 MG TABLET PO SCH (08:42)
[2016-11-13] MEDS: DOXYCYCLINE 100 MG TABLET PO SCH (08:42)
[2016-11-13] MEDS: POLYETHYLENE GLYCOL 3350 17 GM PACKET PO SCH (08:42)
[2016-11-13] MEDS: DOCUSATE SODIUM 250 MG CAPSULE PO SCH (08:42)
--- NOTE | 2016-11-13 09:55 | Discharge Plan ---
Discharge Plan Disposition: 01 Home, Self Care Condition: Fair No Smoking: If you smoke, Please STOP! Call for help.
[2016-11-13] MEDS: ENOXAPARIN 40 MG/0.4 ML SYRINGE SUBQ SCH (10:11)
--- NOTE | 2016-11-14 09:46 | DISCHARGE SUMMARY ---
DISCHARGE DATE: 11/13/2016 DISCHARGE DIAGNOSES 1. Acute hypoxic respiratory failure due to chronic obstructive pulmonary disease exacerbation and community-acquired pneumonia. 2. Community-acquired pneumonia. 3. Acute chronic obstructive pulmonary disease exacerbation. 4. Tobacco dependence. 5. Hyperglycemia due to steroids. 6. Morbid obesity. HOSPITAL COURSE 1. Acute hypoxic respiratory failure: The patient presented with significant wheezing, shortness of breath, and hypoxia. This improved fairly rapidly with supplemental oxygen, antibiotics, steroids, and bronchodilators. She appeared much worse off than what her vital signs would suggest, and a lot of her wheezing appeared to be generated from her neck area. Her oxygen saturation on discharge was in the mid-90s even with ambulation. 2. Community-acquired pneumonia: The patient was treated with ceftriaxone and doxycycline. She was discharged home with doxycycline 100 mg b.i.d. for an additional 5 days. 3. Acute chronic obstructive pulmonary disease exacerbation: She was saturating 88% on room air on the day of admission. She was started on Solu-Medrol and switched to prednisone 60 mg and tapered to 40 mg on November 12. On discharge, she was given a steroid taper 40 mg for 5 days, 20 mg for 5 days, and 10 mg for 5 days, and told to continue her bronchodilators. 4. Tobacco dependence: Recommend that the patient quit smoking tobacco, and there is a significant risk for progression of lung disease and recurrent chronic obstructive pulmonary disease exacerbations. 5. Hyperglycemia: The patient was noted to have hyperglycemia and that she was eating a lot of sugary, high-carbohydrate snacks. Her diet was changed to a carbohydrate-control, with some improvement in her blood sugar. Her hemoglobin A1c was 6.0. She has risk factors for progressing to diabetes and was encouraged to stay on a fairly low carbohydrate and low sugar diet. 6. Morbid obesity: Recommend weight reduction with dietary modification and increased activity. DISCHARGE MEDICATIONS The patient was given a prescription for: 1. Prednisone 40 mg x5 days, 20 mg x5 days, and 10 mg x5 days. 2. Doxycycline 100 b.i.d. for 5 days. Continue: 1. Albuterol. 2. Amitriptyline. 3. Qvar. 4. Vitamin D. Stop taking: Augmentin. DISCHARGE CONDITION: The patient was discharged in stable condition. FOLLOWUP: She was instructed to follow up with her primary care provider to be reevaluated in the next one to two weeks. TIME SPENT: Thirty-five minutes were spent on the discharge of this patient. NICHELLE
== END 2016-11-13 10:50 | disposition home or self-care (01) | DRG 189 ==
LOC: ED 08:10 → MS 09:48
PROVIDERS: ADMIT Internal Medicine; ATTEND Internal Medicine
DX: J96.01 Acute respiratory failure with hypoxia (principal); J18.9 Pneumonia, unspecified organism; J44.0 Chronic obstructive pulmonary disease with (acute) lower respiratory infection; J44.1 Chronic obstructive pulmonary disease with (acute) exacerbation; Z68.42 Body mass index [BMI] 45.0-49.9, adult; T38.0X5A Adverse effect of glucocorticoids and synthetic analogues, initial encounter; R73.9 Hyperglycemia, unspecified; E66.01 Morbid (severe) obesity due to excess calories; G47.33 Obstructive sleep apnea (adult) (pediatric); F32.9 Major depressive disorder, single episode, unspecified; F17.210 Nicotine dependence, cigarettes, uncomplicated; F41.9 Anxiety disorder, unspecified; I25.10 Atherosclerotic heart disease of native coronary artery without angina pectoris; Z82.49 Family history of ischemic heart disease and other diseases of the circulatory system; Z79.51 Long term (current) use of inhaled steroids; Z79.52 Long term (current) use of systemic steroids; Z79.899 Other long term (current) drug therapy; Z98.61 Coronary angioplasty status; I25.2 Old myocardial infarction; Z96.659 Presence of unspecified artificial knee joint
CPT/HCPCS: 36415; 36600; 71010; 80048; 80053; 82803; 83036; 83690; 83880; 84484; 85025; 87040; 94640; 96361; 96365; 96368; 96375; 99284; 99285

== ENCOUNTER 2016-11-14 13:59 | Outpatient (CLI) | payer OTHER, MEDICARE ==
--- NOTE | 2016-11-14 15:51 | XRAY Report ---
TWO VIEW CHEST: 11/14/2016 CLINICAL INDICATION: Pneumonia, COPD, followup. COMPARISON: 11/10/2016. FINDINGS: Frontal and lateral views of the chest demonstrate a normal cardiac silhouette. The previo usly seen right-sided infiltrates have resolved. No new consolidation, effusion, or pneumothorax is e vident. IMPRESSION: RESOLUTION OF PREVIOUSLY SEEN RIGHT-SIDED INFILTRATES. NO EVIDENCE OF ACUTE CARDIOPULMON JERMAINE DISEASE. JOB #: [id number] EXT JOB #:[id number]
== END 2016-11-14 14:00 | disposition home or self-care (01) ==
LOC: DI.N 13:59
PROVIDERS: ATTEND Nurse Practitioner Gerontology
DX: J18.9 Pneumonia, unspecified organism (principal)
CPT/HCPCS: 71020

== ENCOUNTER 2017-02-09 14:25 | Outpatient (CLI) | payer OTHER, MEDICARE | END 2017-02-09 14:26 | disposition critical access hospital (66) | LOC: EMS 14:25 | PROVIDERS: ATTEND Surgery | DX: R06.02 Shortness of breath (principal) | CPT/HCPCS: A0425; A0427 ==

== ENCOUNTER 2017-02-09 14:46 | Inpatient (IN) | payer OTHER, MEDICARE ==
[2017-02-09] MEDS ORDERED: ALBUTEROL NEB 2.5 MG/3 ML INH STA ×4 (14:52→19:31)
[2017-02-09] MEDS ORDERED: methylPREDNISolone SUCCINATE 125 MG/2 ML VIAL IVP STA (14:52)
[2017-02-09] MEDS ORDERED: SODIUM CHLORIDE 0.9% 1,000 ML IV ONE (14:52)
[2017-02-09] MEDS ORDERED: ALBUTEROL NEB 2.5 MG/3 ML INH ONE ×5 (14:56→19:28)
--- NOTE | 2017-02-09 14:58 | ED Physician Documentation ---
PD HPI DYSPNEA - Stated complaint Stated Complaint: SOA - Chief complaint Chief Complaint: Resp - History obtained from History obtained from: Patient, EMS - History of Present Illness Timing - onset: Other (This is a 51-year-old woman with history of COPD, not on home oxygen, tobacco use and obstructive sleep apnea as well as morbid obesity who got sick about a week ago with what she describes as sinusitis. It was going around the house and she developed green nasal congestion. There is no associated fever. Over the last couple of days it developed into more of a chest cold with increasing shortness of breath, productive cough with green and yellow sputum. Still no fevers, "I have never run a fever in my life, Even when I was on life support for 2 weeks." For paramedics she was hypoxic down to 88 which responded to supplemental oxygen and she received a DuoNeb en route with some symptomatic improvement. She is supposed to be on multiple medications including Qvar, albuterol, but she says due to some sort of insurance issues she is not getting any medications right now.) Review of Systems Ten Systems: 10 systems reviewed and negative Constitutional: reports: Fatigue. denies: Fever, Chills Ears: reports: Reviewed and negative Nose: reports: Rhinorrhea / runny nose, Congestion, Sinus pressure / pain Throat: denies: Dental pain / toothache, Sore throat Cardiac: denies: Chest pain / pressure, Palpitations Respiratory: reports: Dyspnea, Cough, Wheezing. 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 ADVISOR: Ectopic : None HEENT: Other Psych: Depression, Claustrophobia Musculoskeletal: Osteoarthritis, Chronic back pain Derm: None - Past Surgical History Past Surgical History: Yes General: Cholecystectomy, EGD Ortho: Knee replacement /INFORMATION TECHNOLOGY ADVISOR: Hysterectomy, Other Cardiovascular: Cardiac catheterization HEENT: Rhinoplasty - Allergies Allergies/Adverse Reactions: Allergies Allergy/AdvReac Type Severity Reaction Status Date / Time codeine [Codeine] Allergy Severe Swelling/Hi Verified 11/10/16 08:39 ves erythromycin base Allergy Severe Anaphylaxis Verified 11/10/16 08:39 [Erythromycin Base] gabapentin Allergy Severe Anaphylaxis Verified 11/10/16 08:39 Latex, Natural Rubber Allergy Severe Blisters Verified 11/10/16 08:39 morphine Allergy Severe SOB Verified 11/10/16 08:39 pamabrom [From [facility]] Allergy Severe Respiratory Verified 11/10/16 08:39 pyrilamine maleate * Allergy Severe Respiratory Verified 11/10/16 08:39 [From [facility]] shellfish derived Allergy Severe Anaphylaxis Verified 11/10/16 08:39 venom-honey bee Allergy Severe Anaphylaxis Verified 11/10/16 08:39 [bee venom (honey bee)] chlorhexidine Allergy Intermediate Rash Verified 11/10/16 08:39 ondansetron Allergy Respiratory Verified 11/10/16 08:39 CLR AdvReac Severe Respiratory Uncoded 12/24/15 12:14 - Social History Does the pt smoke?: No Smoking Status: Former smoker Does the pt drink ETOH?: Yes Does the pt have substance abuse?: No - Family History Family history: reports: Non contributory - Immunizations Immunizations are current?: No Immunizations: Other immun not current - POLST Patient has POLST: No PD ED PE NORMAL - Vitals Vital signs reviewed: Yes (Hypoxic, tachypneic, tachycardic) - General General: Alert and oriented X 3, Other (Mildly labored breathing is speaking in full sentences) - HEENT HEENT: PERRL, EOMI, Pharynx benign - Neck Neck: Supple, no meningeal sign, No bony TTP - Cardiac Cardiac: No murmur, Other (tachy, reg) - Respiratory Respiratory: Other (Modest respiratory distress with tachypnea, coarse inspiratory and expiratory rhonchi and wheezes throughout with medium air movement.) - Abdomen Abdomen: Soft, Non tender - Back Back: No CVA TTP, No spinal TTP - Derm Derm: Normal color, Warm and dry - Extremities Extremities: No edema, No calf tenderness / cord - Neuro Neuro: Alert and oriented X 3, Normal speech - Psych Psych: Normal mood, Normal affect Results - Vitals Vitals: Vital Signs - 24 hr 02/09/17 02/09/17 02/09/17 14:50 15:15 15:30 Temperature 36.3 C L 36.4 C L Heart Rate 107 H 80 80 Respiratory 30 H 30 H 36 H Rate Blood Pressure 126/85 H 102/49 L 117/73 O2 Saturation 89 L 95 92 02/09/17 15:38 Temperature Heart Rate 79 Respiratory 20 Rate Blood Pressure O2 Saturation Oxygen O2 Source [] Room air O2 Source Nasal cannula Oxygen Flow Rate 3 - EKG (time done) 1512 Rate: Rate (enter#) (102) Rhythm: NSR (with bogeminal PVCs) [place]: Normal Intervals: Normal MA QRS: Normal Ischemia: Normal ST segments - Labs Labs: Laboratory Tests 02/09/17 02/09/17 02/09/17 15:04 15:04 15:04 WBC 12.3 H RBC 5.15 Hgb 16.1 H Hct 48.6 H MCV 94.2 MCH 31.3 H MCHC 33.3 RDW 13.3 Plt Count 252 MPV 8.0 Neut # 8.1 H Lymph # 2.8 [place] # 1.0 Eos # 0.2 Baso # 0.1 Absolute Nucleated RBC 0.00 Nucleated RBC % 0.0 Sodium 140 Potassium 4.1 Chloride 102 Carbon Dioxide 29 Anion Gap 9.0 BUN 12 Creatinine 1.2 H Estimated GFR (MDRD) 47 L Glucose 102 H Calcium 9.2 Total Bilirubin 0.6 AST 23 ALT 22 Alkaline Phosphatase 92 Troponin I < 0.04 Total Protein 6.8 Albumin 3.5 Globulin 3.3 Albumin/Globulin Ratio 1.1 Lipase 78 H - Rads (name of study) 1v chest Radiology: EMP read contemporaneously (NAD) PD MEDICAL DECISION MAKING - ED course ED course: 51-year-old woman presents with asthma exacerbation/COPD exacerbation in the setting of URI symptoms. She is afebrile with normal blood pressure. Her lungs are quite rhonchorous, she was administered a DuoNeb in route and initially 1 albuterol here which did not improve her much and this was followed by 3 [id number] albuterol's, also Solu-Medrol magnesium IV and IV fluids. Her chest x-ray is clear. On recheck she was still hypoxic if we turned off the oxygen, down to 89% on room air, I spoke with Dr. Harris for admission at 4:17 PM. She was administered Rocephin. - Critical Care Time(min): 42 Time Includes: Direct patient care, Review records, Reassess patient, Document care, Coordinate care, Medical consult Data interpretation: Labs, Pulse ox Procedures excluded from critical care time: EKG Departure - Departure Disposition: 66 [facility] DC/Xfer Clinical Impression: COPD with acute exacerbation, Hypoxia Condition: Serious
[2017-02-09] MEDS ORDERED: SODIUM CHLORIDE FLUSH 0.9% 10 ML SYRINGE IVP ONE (15:01)
[2017-02-09] MEDS ORDERED: methylPREDNISolone SUCCINATE 125 MG/2 ML VIAL ONE (15:01)
[2017-02-09] MEDS ORDERED: MAGNESIUM SULFATE 2 GRAM 2 GM/50 ML BAG IV ONE ×2 (15:06→15:25)
[2017-02-09 15:32] LABS: ALBUMIN/GLOBULIN RATIO 1.1 (1.0-2.2); BASOPHILS # (AUTO) 0.1 10^3/uL (0.0-0.1); BASOPHILS % (AUTO) 0.9 %; BILIRUBIN,TOTAL 0.6 mg/dL (0.2-1.0); CALCIUM 9.2 mg/dL (8.5-10.3); CREATININE 1.2 mg/dL (0.4-1.0); EOSINOPHILS # (AUTO) 0.2 10^3/uL (0.0-0.7); EOSINOPHILS % (AUTO) 1.9 %; HCT - HEMATOCRIT 48.6 % (37.0-47.0); HGB - HEMOGLOBIN 16.1 g/dL (12.0-16.0); LYMPHOCYTES # (AUTO) 2.8 10^3/uL (1.5-3.5); LYMPHOCYTES % (AUTO) 22.9 %; MEAN CORPUSCULAR HEMOGLOBIN 31.3 pg (27.0-31.0); MEAN CORPUSCULAR HGB CONC 33.3 g/dL (32.0-36.0); MEAN CORPUSCULAR VOLUME 94.2 fL (81.0-99.0); MONOCYTES % (AUTO) 8.2 %; NEUTROPHILS # (AUTO) 8.1 10^3/uL (1.5-6.6); NEUTROPHILS % (AUTO) 66.1 %; POTASSIUM 4.1 mmol/L (3.5-5.0); RED BLOOD COUNT 5.15 10^6/uL (4.20-5.40); RED CELL DISTRIBUTION WIDTH 13.3 % (12.0-15.0); TOTAL PROTEIN 6.8 g/dL (6.7-8.2); UNCORRECTED WHITE BLOOD COUNT 12.3 x10^3/uL; WHITE BLOOD COUNT 12.3 x10^3/uL (4.8-10.8)
--- NOTE | 2017-02-09 15:52 | XRAY Preliminary Report ---
Exam: XR Chest 1 View IMPRESSION: No acute intrathoracic plain film abnormality. [facility] SITE ID: [id number]
--- NOTE | 2017-02-09 15:54 | XRAY Report ---
EXAM: CHEST RADIOGRAPHY EXAM DATE: 02/09/2017 03:26 PM. CLINICAL HISTORY: Cough. COMPARISON: 11/14/2016. TECHNIQUE: 1 view. FINDINGS: Lungs/Pleura: No focal opacities evident. No pleural effusion. No pneumothorax. Mediastinum: There is mild cardiomegaly. This is probably accentuated by lordotic AP technique. Other: None. IMPRESSION: No acute intrathoracic plain film abnormality. [facility] Referring Provider Line: [phone] SITE ID: [id number]
[2017-02-09] MEDS ORDERED: BENZONATATE 100 MG CAPSULE PO STA (16:14)
[2017-02-09] MEDS ORDERED: cefTRIAXone 1 GM in SODIUM CHLORIDE 0.9% MINIBAG 100 ML IV STA (16:14)
[2017-02-09] MEDS ORDERED: BENZONATATE 100 MG CAPSULE PO ONE (16:24)
[2017-02-09] MEDS ORDERED: cefTRIAXone 1 GM VIAL ONE (16:25)
[2017-02-09] MEDS ORDERED: IPRATROPIUM/ALBUTEROL 3 ML NEB INH STA ×2 (17:31→18:58)
[2017-02-09] MEDS ORDERED: IPRATROPIUM/ALBUTEROL 3 ML NEB INH ONE (17:42)
[2017-02-09] MEDS ORDERED: methylPREDNISolone SUCCINATE 40 MG/ML VIAL IVP SCH (19:00)
[2017-02-09] MEDS ORDERED: ALBUTEROL NEB 2.5 MG/3 ML INH SCH (19:00)
--- NOTE | 2017-02-09 20:54 | HISTORY & PHYSICAL EXAMINATION ---
DATE OF ADMISSION: 02/09/2017 HISTORY OF PRESENT ILLNESS: This is a 51-year-old white female with history of morbid obesity, tobacco abuse, COPD with multiple exacerbations requiring admission this year. Her last admission was 2 months ago when she had community- acquired pneumonia and hypoxic respiratory failure with a COPD exacerbation. She was placed on ceftriaxone and doxycycline and then discharged home on doxycycline p.o. The patient has known noncompliance of meds and continues to smoke. The patient has been on no medications whatsoever, no inhalers, for unknown duration. She states that she was exposed to somebody with an upper respiratory infection and that this caused her to get nasal congestion and then a new cough and then progressively worsening shortness of breath. When she presented to the emergency room today, she had a respiratory rate of 30, and room air saturation of 89%. She was given multiple inhaler treatments in the emergency room with some improvement of her respiratory distress, minimally improved respiratory rate, and improved wheezing only slightly. She is being admitted for COPD exacerbation. MEDICATIONS AT HOME: None. ALLERGIES: 1. CODEINE. 2. ERYTHROMYCIN. 3. GABAPENTIN. 4. LATEX. 5. NATURAL RUBBER. 6. THERE ARE MORE, NOT LISTED. FAMILY HISTORY: Her brother had multiple sclerosis, mother had coronary disease , father had coronary disease and skin cancer. SOCIAL HISTORY: She smokes 1/2 pack per day, denies drug use or alcohol intake. REVIEW OF SYSTEMS: She has had no fever, chest pain, palpitations, leg edema, syncope. A comprehensive review of systems was performed and the pertinent positives and negatives are stated here and in the HPI. The remainder of the review of systems is negative. PHYSICAL EXAMINATION: GENERAL: Reveals an obese white female. She is sitting upright on a gurney in the emergency room and is in moderate respiratory distress. VITAL SIGNS: Blood pressure 126/85, pulse is 107 and sinus tachycardia. She is afebrile. Her respiratory rate is 30, and as high as 36 in the emergency room. HEENT: Shows moist oral mucosa and she has rubor of her cheeks and cyanosis of her lower lip. Her neck shows no JVD in a vertical position. NECK: No carotid bruits or thyromegaly. CHEST: Increased AP diameter. She has diffuse wheezing in all lung mathews anteriorly and posteriorly, apex to base. ABDOMEN: Obese. I cannot rule out organomegaly or ascites. She is nontender. EXTREMITIES: Trace pedal edema. Her fingernails show cyanosis, but there is no clubbing. NEUROLOGIC: Grossly intact. LABORATORY: BMP within normal limits except BUN 12 and creatinine 1.2, glucose is 102. Normal liver tests. Troponin is not detectable. Lipase is 78, which is mildly elevated, white blood count 12.3 with a left shift, hemoglobin 16.1, platelet count normal. There was no INR done. Blood gas shows pH of 7.4, pCO2 of 40, pO2 111. CHEST X-RAY: No acute intrathoracic process. EKG, Is tachycardia at a rate of 102 with ventricular bigeminy, but otherwise within normal limits. IMPRESSION: 1. Chronic obstructive pulmonary disease exacerbation with diffuse wheezing, respiratory distress, tachypnea, hypoxemia. 2. Tobacco abuse. 3. Morbid obesity. 4. Mild renal insufficiency (probable dehydration.) 5. Elevated lipase. PLAN: Admit the patient, place on telemetry to watch her tachycardia. Start IV hydration at a slow rate. Start IV steroids, IV antibiotics, inhalers and nebulizers and cough medications. Obtain sputum sample for gram stain and culture. If she spikes a temperature, obtain blood culture. Follow her labs and chest x-ray for changes. Tobacco cessation was discussed with the patient. She may require a Nicoderm patch while here. JOB #: [id number] EXT JOB #:[id number] NICHELLE
[2017-02-09] MEDS ORDERED: cefTRIAXone 1 GM in SODIUM CHLORIDE 0.9% MINIBAG 100 ML IV SCH (21:00)
[2017-02-09] MEDS: ACETAMINOPHEN 325 MG TABLET PO PRN (21:34)
[2017-02-09 21:49] LABS: ABG ANALYSIS TIME 2135; ABG HCO3 22.1 mmol/L (22.0-26.0); ABG OXYGEN SATURATION 100 % (94-98); ABG PCO2 37 mmHg (34-45); ABG PH 7.38 (7.35-7.45)
[2017-02-09 21:50] LABS: ABG O2 DEVICE NASAL CANNULA; ABG SATURATION PULSE OXIMETRY% 97 %; ABG SITE OF DRAW LEFT RADIAL; ALLEN TEST POSITIVE
[2017-02-09 21:51] LABS: ABG PO2 207 mmHg (80-100)
[2017-02-09] MEDS: LORazepam 2 MG/ML SYRINGE IVP PRN (22:02)
[2017-02-09] MEDS: SODIUM CHLORIDE FLUSH 0.9% 10 ML SYRINGE IVP SCH (22:03)
[2017-02-09] MEDS: methylPREDNISolone SUCCINATE 40 MG/ML VIAL IVP SCH (23:30)
[2017-02-10] MEDS: IPRATROPIUM/ALBUTEROL 3 ML NEB INH PRN ×6 (00:54→20:40)
[2017-02-10] MEDS ORDERED: cefTRIAXone 1 GM in SODIUM CHLORIDE 0.9% MINIBAG 100 ML IV SCH (04:00)
[2017-02-10] MEDS: ACETAMINOPHEN 325 MG TABLET PO PRN (06:02)
[2017-02-10] MEDS: methylPREDNISolone SUCCINATE 40 MG/ML VIAL IVP SCH ×3 (06:02→23:58)
[2017-02-10] MEDS: SODIUM CHLORIDE FLUSH 0.9% 10 ML SYRINGE IVP SCH ×3 (06:02→23:58)
[2017-02-10 06:13] LABS: PHOSPHORUS 3.2 mg/dL (2.5-4.6)
--- NOTE | 2017-02-10 06:26 | XRAY Preliminary Report ---
Exam: XR Chest 1 View IMPRESSION: New mild/moderate CHF pattern. [facility] SITE ID: [id number]
[2017-02-10] MEDS ORDERED: FUROSEMIDE 20 MG/2 ML VIAL IVP SCH (06:36)
--- NOTE | 2017-02-10 06:37 | XRAY Report ---
EXAM: CHEST RADIOGRAPHY EXAM DATE: 02/10/2017 05:24 AM. CLINICAL HISTORY: COPD exacerbation, followup. COMPARISON: 02/09/2017. TECHNIQUE: 1 view. FINDINGS: Lungs/Pleura: Small lung volume. There is accentuation of the interstitial and vascular markings. Thi s is new from the prior exam. No consolidation, effusion, or definite pneumothorax. Mediastinum: Mild enlargement of the cardiac silhouette is noted. Other: Suspect a hiatal hernia. Right upper quadrant clips indicate prior cholecystectomy. IMPRESSION: New mild/moderate CHF pattern. [facility] Referring Provider Line: [phone] SITE ID: [id number]
[2017-02-10 06:47] LABS: BASOPHILS % (AUTO) 0.3 %; HGB - HEMOGLOBIN 15.5 g/dL (12.0-16.0); LYMPHOCYTES % (AUTO) 4.6 %; MEAN CORPUSCULAR HEMOGLOBIN 31.4 pg (27.0-31.0); MEAN CORPUSCULAR HGB CONC 32.9 g/dL (32.0-36.0); MEAN CORPUSCULAR VOLUME 95.4 fL (81.0-99.0); MEAN PLATELET VOLUME 8.1 fL (7.9-10.8); MONOCYTES % (AUTO) 1.3 %; NEUTROPHILS % (AUTO) 93.8 %; RED BLOOD COUNT 4.93 10^6/uL (4.20-5.40); RED CELL DISTRIBUTION WIDTH 13.4 % (12.0-15.0); UNCORRECTED WHITE BLOOD COUNT 16.3 x10^3/uL; WHITE BLOOD COUNT 16.3 x10^3/uL (4.8-10.8)
[2017-02-10 06:54] LABS: ALBUMIN/GLOBULIN RATIO 1.1 (1.0-2.2); BILIRUBIN,TOTAL 0.5 mg/dL (0.2-1.0); BUN - BLOOD UREA NITROGEN 14 mg/dL (6-20); CALCIUM 9.6 mg/dL (8.5-10.3); CARBON DIOXIDE - CO2 25 mmol/L (21-32); CHLORIDE 103 mmol/L (101-111); CREATININE 0.8 mg/dL (0.4-1.0); GFR - MDRD 75 (>89); GLUCOSE 193 mg/dL (70-100); POTASSIUM 3.8 mmol/L (3.5-5.0); SODIUM 140 mmol/L (135-145); TOTAL PROTEIN 6.9 g/dL (6.7-8.2)
[2017-02-10 07:31] LABS: BAND NEUTROPHILS % (MANUAL) 5 %; LYMPHOCYTES % (MANUAL) 9 %; NEUTROPHILS % (MANUAL) 85 %; PLATELET ESTIMATE, MANUAL NORMAL (130-450,000) (NORMAL); TOTAL CELLS COUNTED 100
[2017-02-10 07:32] LABS: NP AUTO DIFFERENTIAL? YES; NP MAN DIFFERENTIAL? NO
[2017-02-10] MEDS: LORazepam 2 MG/ML SYRINGE IVP PRN ×2 (07:55→10:54)
[2017-02-10] MEDS: SODIUM CHLORIDE FLUSH 0.9% 10 ML SYRINGE IVP PRN ×4 (07:56→19:44)
[2017-02-10] MEDS: FAMOTIDINE 20 MG TABLET PO SCH (08:27)
[2017-02-10] MEDS: POLYETHYLENE GLYCOL 3350 17 GM PACKET PO SCH (08:27)
[2017-02-10] MEDS: oxyCODONE 5 MG TABLET PO PRN ×2 (08:58→16:01)
[2017-02-10] MEDS: cefTRIAXone 1 GM in SODIUM CHLORIDE 0.9% MINIBAG 100 ML IV SCH (12:34)
[2017-02-10] MEDS ORDERED: guaiFENesin/DEXTROMETHORPHAN 10 ML UDC PO PRN (19:01)
--- NOTE | 2017-02-10 19:06 | PROVIDER PROGRESS NOTE ---
Assessment/Plan - Problem List (1) COPD with acute exacerbation Assessment/Plan: Pt was moved into ICU last night due to worsening respiratory distrss, RR 40. Today, she is moving air minimally better, no wheezing. Cough is severe and non-productive and causing a headache. Will add Robitussin, Mucinex, and Pt wants ASA with caffeine for her headache, which we don't carry here. Will try Fioricet. (2) CHF (congestive heart failure) Qualifiers: Congestive heart failure type: systolic Assessment/Plan: New finding of LVEF 45%. Trops were neg. Will continue iv Lasix. Pt will need W/U for cardiomyopathy when respiratory status more stable. - Current Meds Current Meds: Current Medications Generic Name Dose Route Start Last Admin Trade Name Freq PRN Reason Stop Dose Admin Acetaminophen 650 mg 02/09/17 18:05 02/10/17 06:02 Tylenol PO 650 mg Q4HR PRN Administration Pain 1 to 4 Albuterol/Ipratropium 3 ml 02/09/17 18:14 02/10/17 15:28 Duoneb INH 3 ml Q4HR PRN Administration Wheezing Famotidine 20 mg 02/10/17 09:00 02/10/17 08:27 Pepcid PO 20 mg DAILY ROMAN Administration Ceftriaxone Sodium 1 gm/ 100 mls @ 200 mls/hr 02/10/17 12:00 02/10/17 13:05 Sodium Chloride IV Infused DAILY ROMAN Infusion Lorazepam 1 mg 02/09/17 21:33 02/10/17 10:54 Ativan Inj IVP 1 mg Q2HR PRN Administration Anxiety Methylprednisolone 80 mg 02/09/17 23:00 02/10/17 14:57 Solu-Medrol (40mg Vial) IVP 80 mg Q8H ROMAN Administration Polyethylene Glycol 17 gm 02/10/17 09:00 02/10/17 08:27 Miralax PO 17 gm DAILY ROMAN Administration Sodium Chloride 10 ml 02/09/17 18:05 02/10/17 14:59 Normal Saline Flush 0.9% IVP 10 ml PRN PRN Administration NEEDED PER PROVIDER ORDERS Sodium Chloride 10 ml 02/09/17 22:00 02/10/17 12:34 Normal Saline Flush 0.9% IVP 10 ml Q8HR ROMAN Administration - Lab Result Fish Bone Diagrams: 02/10/17 05:00 02/10/17 05:00 - Additional Planning My Orders: My Active Orders 02/09/17 18:14 Ipratropium/Albuterol [Duoneb] 3 ml INH Q4HR PRN 02/09/17 20:30 CUL, MRSA SCREEN [RM] Urgent 02/09/17 23:00 methylPREDNISolone SUCCINATE [SOLU-Medrol (40MG VIAL)] 80 mg IVP Q8H 02/10/17 06:00 CUL, RESPIRATORY [RM] Routine 02/10/17 18:56 Butalb/Acetam/Caff 50/325/40 [Fioricet] 1 tab PO Q4HR PRN 02/10/17 19:01 guaiFENesin/DEXTROMETHORPHAN [Robitussin Dm] 10 ml PO Q6HR PRN 02/10/17 20:00 FUROSEMIDE INJ 40mg VIAL [LASIX INJ 40 mg VIAL] 40 mg IVP BIDDIURETIC guaiFENesin [Mucinex] 1,200 mg PO BID 02/11/17 05:00 BMP - BASIC METABOLIC PANEL [CHEM] DAILYLAB CBC - COMP BLD CT W/AUTO DIFF [HEME] DAILYLAB CBC - COMP BLD CT W/AUTO DIFF [HEME] DAILYLAB Objective Vital Signs: Vital Signs - 24 hr 02/09/17 02/09/17 02/09/17 19:19 19:37 21:08 Temperature 37.2 C Heart Rate 99 103 H Heart Rate [ 100 Apical] Heart Rate [ Monitoring electrodes] Respiratory 42 H 40 H 20 Rate Blood Pressure 153/54 H Blood Pressure 117/58 L [Left Brachial artery] O2 Saturation 92 96 02/09/17 02/10/17 02/10/17 23:00 00:55 01:00 Temperature 36.9 C Heart Rate 97 Heart Rate [ Apical] Heart Rate [ 109 H 94 Monitoring electrodes] Respiratory 17 24 24 Rate Blood Pressure Blood Pressure 113/66 144/70 H [Left Brachial artery] O2 Saturation 100 92 02/10/17 02/10/17 02/10/17 03:00 04:40 05:00 Temperature 36.7 C Heart Rate 92 Heart Rate [ Apical] Heart Rate [ 90 91 Monitoring electrodes] Respiratory 24 28 H 20 Rate Blood Pressure Blood Pressure 150/70 H 139/73 H [Left Brachial artery] O2 Saturation 97 96 02/10/17 02/10/1717 06:57 08:00 08:45 Temperature Heart Rate 104 H Heart Rate [ Apical] Heart Rate [ 91 99 Monitoring electrodes] Respiratory 16 20 30 H Rate Blood Pressure Blood Pressure 125/59 L 136/75 H [Left Brachial artery] O2 Saturation 95 96 02/10/17 02/10/17 02/10/17 09:00 10:04 11:00 Temperature 36.9 C 36.9 C 37.1 C Heart Rate Heart Rate [ Apical] Heart Rate [ 93 102 H 99 Monitoring electrodes] Respiratory 21 26 H 20 Rate Blood Pressure Blood Pressure 145/71 H 142/84 H 135/62 H [Left Brachial artery] O2 Saturation 96 94 95 02/10/17 02/10/17 02/10/17 11:21 11:25 12:00 Temperature Heart Rate 99 Heart Rate [ Apical] Heart Rate [ 102 H Monitoring electrodes] Respiratory 25 H 23 Rate Blood Pressure Blood Pressure 159/74 H [Left Brachial artery] O2 Saturation 94 95 02/10/17 02/10/17 02/10/17 12:40 14:00 15:09 Temperature 36.7 C Heart Rate Heart Rate [ Apical] Heart Rate [ 90 93 Monitoring electrodes] Respiratory 25 H 23 Rate Blood Pressure Blood Pressure 126/56 L 147/88 H [Left Brachial artery] O2 Saturation 95 94 02/10/17 02/10/17 02/10/17 15:30 15:34 17:00 Temperature 37.1 C Heart Rate 97 Heart Rate [ Apical] Heart Rate [ 98 Monitoring electrodes] Respiratory 27 H 27 H 30 H Rate Blood Pressure Blood Pressure 136/70 H [Left Brachial artery] O2 Saturation 96 95 02/10/17 02/10/17 18:00 19:01 Temperature Heart Rate Heart Rate [ Apical] Heart Rate [ 98 97 Monitoring electrodes] Respiratory 32 H 34 H Rate Blood Pressure Blood Pressure 123/75 116/53 L [Left Brachial artery] O2 Saturation 95 95 Oxygen O2 Source Nasal cannula I&O (Last 24 Hrs): Intake and Output Totals x24h 02/08/17 02/09/17 02/10/17 23:59 23:59 23:59 Intake Total 500 4250 Output Total 250 4935 Balance 250 -685 - Results Results: Laboratory Results WBC 16.3 x10^3/uL (4.8-10.8) H 02/10/17 05:00 RBC 4.93 10^6/uL (4.20-5.40) 02/10/17 05:00 Hgb 15.5 g/dL (12.0-16.0) 02/10/17 05:00 Hct 47.0 % (37.0-47.0) 02/10/17 05:00 MCV 95.4 fL (81.0-99.0) 02/10/17 05:00 MCH 31.4 pg (27.0-31.0) H 02/10/17 05:00 MCHC 32.9 g/dL (32.0-36.0) 02/10/17 05:00 RDW 13.4 % (12.0-15.0) 02/10/17 05:00 Plt Count 229 10^3/uL (130-450) 02/10/17 05:00 MPV 8.1 fL (7.9-10.8) 02/10/17 05:00 Neut # Not Reportable 02/10/17 05:00 Lymph # Not Reportable 02/10/17 05:00 [place] # Not Reportable 02/10/17 05:00 Eos # Not Reportable 02/10/17 05:00 Baso # Not Reportable 02/10/17 05:00 Absolute Nucleated RBC Not Reportable 02/10/17 05:00 Total Counted 100 02/10/17 05:00 Band Neuts % (Manual) 5 % (0-10) 02/10/17 05:00 Nucleated RBC % Not Reportable 02/10/17 05:00 Neutrophils # (Manual) 14.7 10^3/uL (1.5-6.6) H 02/10/17 05:00 Lymphocytes # (Manual) 1.5 10^3/uL (1.5-3.5) 02/10/17 05:00 Monocytes # (Manual) 0.2 10^3/uL (0.0-1.0) 02/10/17 05:00 Differential Comment MANUAL DIFFERENTIAL 02/10/17 05:00 Platelet Estimate NORMAL (130-450,000) (NORMAL) 02/10/17 05:00 RBC Morph Micro Appear NORMAL APPEARANCE (NORMAL) 02/10/17 05:00 Bld Gas Analysis Time 213402/09/17 21:35 Sample Site LEFT RADIAL 02/09/17 21:35 ABG pH 7.38 (7.35-7.45) 02/09/17 21:35 ABG pCO2 37 mmHg (34-45) 02/09/17 21:35 ABG pO2 207 mmHg (80-100) H* 02/09/17 21:35 ABG HCO3 22.1 mmol/L (22.0-26.0) 02/09/17 21:35 ABG Total CO2 23.0 MMOL/L (21.0-29.0) 02/09/17 21:35 ABG O2 Saturation 100 % (94-98) H 02/09/17 21:35 ABG Oximetry Spot Check 97 % 02/09/17 21:35 ABG Base Excess -3.0 mmol/L (-2.0-3.0) L 02/09/17 21:35 Elio Test POSITIVE 02/09/17 21:35 O2 Delivery Device NASAL CANNULA 02/09/17 21:35 O2 Liters/Min 6.00 LPM 02/09/17 21:35 Sodium 140 mmol/L (135-145) 02/10/17 05:00 Potassium 3.8 mmol/L (3.5-5.0) 02/10/17 05:00 Chloride 103 mmol/L (101-111) 02/10/17 05:00 Carbon Dioxide 25 mmol/L (21-32) 02/10/17 05:00 Anion Gap 12.0 (6-13) 02/10/17 05:00 BUN 14 mg/dL (6-20) 02/10/17 05:00 Creatinine 0.8 mg/dL (0.4-1.0) 02/10/17 05:00 Estimated GFR (MDRD) 75 (>89) L 02/10/17 05:00 Glucose 193 mg/dL (70-100) H 02/10/17 05:00 Calcium 9.6 mg/dL (8.5-10.3) 02/10/17 05:00 Ionized Calcium NO 02/10/17 05:00 Phosphorus 3.2 mg/dL (2.5-4.6) 02/10/17 05:00 Magnesium 2.0 mg/dL (1.7-2.8) 02/10/17 05:00 Total Bilirubin 0.5 mg/dL (0.2-1.0) 02/10/17 05:00 AST 19 IU/L (10-42) 02/10/17 05:00 ALT 20 IU/L (10-60) 02/10/17 05:00 Alkaline Phosphatase 87 IU/L (42-121) 02/10/17 05:00 Troponin I < 0.04 ng/mL (<0.49) 02/09/17 15:04 Total Protein 6.9 g/dL (6.7-8.2) 02/10/17 05:00 Albumin 3.6 g/dL (3.2-5.5) 02/10/17 05:00 Globulin 3.3 g/dL (2.1-4.2) 02/10/17 05:00 Albumin/Globulin Ratio 1.1 (1.0-2.2) 02/10/17 05:00 Lipase 78 U/L (22-51) H 02/09/17 15:04 - Procedures Procedures: Procedures ESOPHAGOGASTRODUODENOSCOPY [EGD] W/CLOSED BIOPSY (11/29/13) MANUAL RUPT JOINT ADHES (04/27/14) TOTAL KNEE REPLACEMENT (06/16/14)
[2017-02-10] MEDS: FUROSEMIDE 40 MG/4 ML VIAL IVP SCH (19:43)
[2017-02-10] MEDS: guaiFENesin 600 MG TABLET PO SCH ×2 (19:50→23:57)
[2017-02-10] MEDS: BUTALB/ACETAM/CAFF 50/325/40MG TABLET PO PRN (20:05)
[2017-02-11] MEDS ORDERED: cefTRIAXone 1 GM in SODIUM CHLORIDE 0.9% MINIBAG 100 ML IV SCH (04:00)
[2017-02-11 05:59] LABS: BASOPHILS % (AUTO) 0.4 %; HCT - HEMATOCRIT 47.9 % (37.0-47.0); HGB - HEMOGLOBIN 15.5 g/dL (12.0-16.0); LYMPHOCYTES % (AUTO) 3.8 %; MEAN CORPUSCULAR HGB CONC 32.3 g/dL (32.0-36.0); MEAN CORPUSCULAR VOLUME 95.7 fL (81.0-99.0); MONOCYTES % (AUTO) 1.8 %; RED CELL DISTRIBUTION WIDTH 13.8 % (12.0-15.0); UNCORRECTED WHITE BLOOD COUNT 25.6 x10^3/uL; WHITE BLOOD COUNT 25.6 x10^3/uL (4.8-10.8)
[2017-02-11 06:07] LABS: CALCIUM 9.7 mg/dL (8.5-10.3); CREATININE 0.8 mg/dL (0.4-1.0); POTASSIUM 4.6 mmol/L (3.5-5.0)
[2017-02-11] MEDS: SODIUM CHLORIDE FLUSH 0.9% 10 ML SYRINGE IVP SCH ×3 (06:08→21:57)
[2017-02-11] MEDS: FUROSEMIDE 40 MG/4 ML VIAL IVP SCH ×2 (06:08→14:55)
[2017-02-11 07:17] LABS: BAND NEUTROPHILS % (MANUAL) 6 %; LYMPHOCYTES % (MANUAL) 6 %; NEUTROPHILS % (MANUAL) 83 %; NP AUTO DIFFERENTIAL? YES; NP MAN DIFFERENTIAL? NO; PLATELET ESTIMATE, MANUAL NORMAL (130-450,000) (NORMAL); TOTAL CELLS COUNTED 100
[2017-02-11] MEDS: IPRATROPIUM/ALBUTEROL 3 ML NEB INH PRN ×3 (07:32→20:20)
[2017-02-11] MEDS: BUTALB/ACETAM/CAFF 50/325/40MG TABLET PO PRN ×3 (08:18→21:21)
[2017-02-11] MEDS: methylPREDNISolone SUCCINATE 40 MG/ML VIAL IVP SCH ×3 (08:19→23:05)
[2017-02-11] MEDS: cefTRIAXone 1 GM in SODIUM CHLORIDE 0.9% MINIBAG 100 ML IV SCH (10:06)
[2017-02-11] MEDS: POLYETHYLENE GLYCOL 3350 17 GM PACKET PO SCH (10:07)
[2017-02-11] MEDS: FAMOTIDINE 20 MG TABLET PO SCH (10:07)
[2017-02-11] MEDS: guaiFENesin 600 MG TABLET PO SCH ×2 (10:07→21:21)
[2017-02-11] MEDS: SPIRONOLACTONE 25 MG TABLET PO SCH (18:16)
[2017-02-11] MEDS ORDERED: FUROSEMIDE 20 MG/2 ML VIAL IVP STA (21:13)
--- NOTE | 2017-02-11 22:18 | PROVIDER PROGRESS NOTE ---
Assessment/Plan - Problem List (1) COPD with acute exacerbation Assessment/Plan: Pt minimally improved, no wheezing but only moving air minimally Continue present care (2) CHF (congestive heart failure) Qualifiers: Congestive heart failure type: systolic Assessment/Plan: Pt able to give more history, since conversing more, due to less SOB She has had 3 MIs and several angios. She was seen at both [facility] in [place] and at [facility] by Cardiology in last 2 & 3 years Will ask for records of those visits Will continue Lasix and add B-1 selective B-julius, SARAH-I and Spironolactone - Current Meds Current Meds: Current Medications Generic Name Dose Route Start Last Admin Trade Name Freq PRN Reason Stop Dose Admin Acetaminophen 650 mg 02/09/17 18:05 02/10/17 06:02 Tylenol PO 650 mg Q4HR PRN Administration Pain 1 to 4 Acetaminophen/Butalbital/Caffeine 1 tab 02/10/17 18:56 02/11/17 21:21 Fioricet PO 1 tab Q4HR PRN Administration HEADACHE Albuterol/Ipratropium 3 ml 02/09/17 18:14 02/11/17 20:20 Duoneb INH 3 ml Q4HR PRN Administration Wheezing Famotidine 20 mg 02/10/17 09:00 02/11/17 10:07 Pepcid PO 20 mg DAILY ROMAN Administration Furosemide 40 mg 02/10/17 20:00 02/11/17 14:55 Lasix Inj 40 Mg Vial IVP 40 mg BIDDIURETIC ROMAN Administration Guaifenesin 10 ml 02/10/17 19:01 02/11/17 20:04 Robitussin Dm PO 10 ml Q6HR PRN Administration Cough Guaifenesin 1,200 mg 02/10/17 20:00 02/11/17 21:21 Mucinex PO 1,200 mg BID ROMAN Administration Ceftriaxone Sodium 1 gm/ 100 mls @ 200 mls/hr 02/10/17 12:00 02/11/17 10:06 Sodium Chloride IV 200 mls/hr DAILY ROMAN Administration Lorazepam 1 mg 02/09/17 21:33 02/10/17 10:54 Ativan Inj IVP 1 mg Q2HR PRN Administration Anxiety Methylprednisolone 80 mg 02/09/17 23:00 02/11/17 16:01 Solu-Medrol (40mg Vial) IVP 80 mg Q8H ROMAN Administration Polyethylene Glycol 17 gm 02/10/17 09:00 02/11/17 10:07 Miralax PO 17 gm DAILY ROMAN Administration Sodium Chloride 10 ml 02/09/17 18:05 02/10/17 19:44 Normal Saline Flush 0.9% IVP 10 ml PRN PRN Administration NEEDED PER PROVIDER ORDERS Sodium Chloride 10 ml 02/09/17 22:00 02/11/17 21:57 Normal Saline Flush 0.9% IVP 10 ml Q8HR ROMAN Administration Spironolactone 25 mg 02/11/17 18:00 02/11/17 18:16 Aldactone PO 25 mg DAILY ROMAN Administration - Lab Result Fish Bone Diagrams: 02/11/17 05:02 02/12/17 06:21 - Additional Planning My Orders: My Active Orders 02/11/17 18:00 Metoprolol Tartrate [Lopressor] 6.25 mg PO BID Spironolactone [Aldactone] 25 mg PO DAILY 02/12/17 05:00 CALCIUM [CHEM] DAILYLAB MAGNESIUM [CHEM] DAILYLAB PHOSPHORUS [CHEM] DAILYLAB POTASSIUM [CHEM] DAILYLAB 02/12/17 09:00 Lisinopril [Zestril] 5 mg PO DAILY Subjective - Subjective Patient Reports: Headache, Other Nursing Reports: Other (RN reports that Pt vomits about a tbsp when gets nervous ) Objective Vital Signs: Vital Signs - 24 hr 02/10/17 02/11/17 02/11/17 23:00 01:00 03:00 Temperature Heart Rate Heart Rate [ 98 85 87 Monitoring electrodes] Respiratory 25 H 20 18 Rate Blood Pressure 133/74 H 132/72 H 107/71 [Left Brachial artery] O2 Saturation 95 93 98 02/11/17 02/11/17 02/11/17 05:00 07:00 07:34 Temperature Heart Rate 85 Heart Rate [ 71 78 Monitoring electrodes] Respiratory 24 22 20 Rate Blood Pressure 125/72 126/71 [Left Brachial artery] O2 Saturation 94 95 02/11/17 02/11/17 02/11/17 09:00 11:00 13:00 Temperature 36.6 C Heart Rate Heart Rate [ 67 89 89 Monitoring electrodes] Respiratory 20 22 22 Rate Blood Pressure 120/59 L 122/58 L 116/75 [Left Brachial artery] O2 Saturation 95 96 95 02/11/17 02/11/17 02/11/17 14:39 15:00 17:00 Temperature Heart Rate 77 Heart Rate [ 79 94 Monitoring electrodes] Respiratory 22 18 23 Rate Blood Pressure 89/75 L 135/96 H [Left Brachial artery] O2 Saturation 94 91 L 02/11/17 02/11/17 02/11/17 18:00 20:00 20:20 Temperature Heart Rate 87 Heart Rate [ 96 98 Monitoring electrodes] Respiratory 15 36 H 20 Rate Blood Pressure 138/74 H 163/92 H [Left Brachial artery] O2 Saturation 95 92 02/11/17 22:00 Temperature Heart Rate Heart Rate [ 85 Monitoring electrodes] Respiratory 22 Rate Blood Pressure 157/94 H [Left Brachial artery] O2 Saturation 94 Oxygen O2 Source Nasal cannula I&O (Last 24 Hrs): Intake and Output Totals x24h 02/09/17 02/10/17 02/11/17 23:59 23:59 23:59 Intake Total 500 5250 2270 Output Total 250 7120 5025 Balance 250 -1870 -2755 General: Alert, Oriented x3 HEENT: Mucous membr. moist/pink Neck: Supple Cardiovascular: Other (Distant HS) Respiratory: Other (Poor air movement but no rales or wheezes) Abdomen: Other (Obese) Extremities: Other (1+ edema) - Results Results: Laboratory Results WBC 25.6 x10^3/uL (4.8-10.8) H 02/11/17 05:02 RBC 5.00 10^6/uL (4.20-5.40) 02/11/17 05:02 Hgb 15.5 g/dL (12.0-16.0) 02/11/17 05:02 Hct 47.9 % (37.0-47.0) H 02/11/17 05:02 MCV 95.7 fL (81.0-99.0) 02/11/17 05:02 MCH 31.0 pg (27.0-31.0) 02/11/17 05:02 MCHC 32.3 g/dL (32.0-36.0) 02/11/17 05:02 RDW 13.8 % (12.0-15.0) 02/11/17 05:02 Plt Count 237 10^3/uL (130-450) 02/11/17 05:02 MPV 8.0 fL (7.9-10.8) 02/11/17 05:02 Neut # Not Reportable 02/11/17 05:02 Lymph # Not Reportable 02/11/17 05:02 [place] # Not Reportable 02/11/17 05:02 Eos # Not Reportable 02/11/17 05:02 Baso # Not Reportable 02/11/17 05:02 Absolute Nucleated RBC Not Reportable 02/11/17 05:02 Total Counted 100 02/11/17 05:02 Band Neuts % (Manual) 6 % (0-10) 02/11/17 05:02 Metamyelocytes % 1 % (-0) H 02/11/17 05:02 Myelocytes % 1 % (-0) H 02/11/17 05:02 Nucleated RBC % Not Reportable 02/11/17 05:02 Neutrophils # (Manual) 22.8 10^3/uL (1.5-6.6) H 02/11/17 05:02 Lymphocytes # (Manual) 1.5 10^3/uL (1.5-3.5) 02/11/17 05:02 Monocytes # (Manual) 0.8 10^3/uL (0.0-1.0) 02/11/17 05:02 Differential Comment MANUAL DIFFERENTIAL 02/11/17 05:02 Platelet Estimate NORMAL (130-450,000) (NORMAL) 02/11/17 05:02 RBC Morph Micro Appear NORMAL APPEARANCE (NORMAL) 02/11/17 05:02 Bld Gas Analysis Time 213402/09/17 21:35 Sample Site LEFT RADIAL 02/09/17 21:35 ABG pH 7.38 (7.35-7.45) 02/09/17 21:35 ABG pCO2 37 mmHg (34-45) 02/09/17 21:35 ABG pO2 207 mmHg (80-100) H* 02/09/17 21:35 ABG HCO3 22.1 mmol/L (22.0-26.0) 02/09/17 21:35 ABG Total CO2 23.0 MMOL/L (21.0-29.0) 02/09/17 21:35 ABG O2 Saturation 100 % (94-98) H 02/09/17 21:35 ABG Oximetry Spot Check 97 % 02/09/17 21:35 ABG Base Excess -3.0 mmol/L (-2.0-3.0) L 02/09/17 21:35 Elio Test POSITIVE 02/09/17 21:35 O2 Delivery Device NASAL CANNULA 02/09/17 21:35 O2 Liters/Min 6.00 LPM 02/09/17 21:35 Sodium 138 mmol/L (135-145) 02/11/17 05:02 Potassium 4.6 mmol/L (3.5-5.0) 02/11/17 05:02 Chloride 99 mmol/L (101-111) L 02/11/17 05:02 Carbon Dioxide 27 mmol/L (21-32) 02/11/17 05:02 Anion Gap 12.0 (6-13) 02/11/17 05:02 BUN 18 mg/dL (6-20) 02/11/17 05:02 Creatinine 0.8 mg/dL (0.4-1.0) 02/11/17 05:02 Estimated GFR (MDRD) 75 (>89) L 02/11/17 05:02 Glucose 156 mg/dL (70-100) H 02/11/17 05:02 Calcium 9.7 mg/dL (8.5-10.3) 02/11/17 05:02 Ionized Calcium NO 02/10/17 05:00 Phosphorus 3.2 mg/dL (2.5-4.6) 02/10/17 05:00 Magnesium 2.0 mg/dL (1.7-2.8) 02/10/17 05:00 Total Bilirubin 0.5 mg/dL (0.2-1.0) 02/10/17 05:00 AST 19 IU/L (10-42) 02/10/17 05:00 ALT 20 IU/L (10-60) 02/10/17 05:00 Alkaline Phosphatase 87 IU/L (42-121) 02/10/17 05:00 Troponin I < 0.04 ng/mL (<0.49) 02/09/17 15:04 Total Protein 6.9 g/dL (6.7-8.2) 02/10/17 05:00 Albumin 3.6 g/dL (3.2-5.5) 02/10/17 05:00 Globulin 3.3 g/dL (2.1-4.2) 02/10/17 05:00 Albumin/Globulin Ratio 1.1 (1.0-2.2) 02/10/17 05:00 Lipase 78 U/L (22-51) H 02/09/17 15:04 - Procedures Procedures: Procedures ESOPHAGOGASTRODUODENOSCOPY [EGD] W/CLOSED BIOPSY (11/29/13) MANUAL RUPT JOINT ADHES (04/27/14) TOTAL KNEE REPLACEMENT (06/16/14)
[2017-02-11] MEDS: LORazepam 2 MG/ML SYRINGE IVP PRN (23:06)
[2017-02-11] MEDS: SODIUM CHLORIDE FLUSH 0.9% 10 ML SYRINGE IVP PRN (23:08)
[2017-02-12] MEDS: IPRATROPIUM/ALBUTEROL 3 ML NEB INH PRN ×2 (05:30→07:35)
[2017-02-12] MEDS: SODIUM CHLORIDE FLUSH 0.9% 10 ML SYRINGE IVP SCH ×3 (06:22→22:42)
[2017-02-12] MEDS: methylPREDNISolone SUCCINATE 40 MG/ML VIAL IVP SCH ×3 (06:22→22:42)
[2017-02-12] MEDS: FUROSEMIDE 40 MG/4 ML VIAL IVP SCH ×2 (06:22→14:26)
[2017-02-12] MEDS: BUTALB/ACETAM/CAFF 50/325/40MG TABLET PO PRN ×2 (06:39→13:50)
[2017-02-12 07:05] LABS: CALCIUM 9.7 mg/dL (8.5-10.3); MAGNESIUM 2.4 mg/dL (1.7-2.8); PHOSPHORUS 3.9 mg/dL (2.5-4.6); POTASSIUM 4.1 mmol/L (3.5-5.0)
[2017-02-12] MEDS: PROCHLORPERAZINE 10 MG/2 ML VIAL IVP PRN (08:50)
[2017-02-12] MEDS: METOPROLOL TARTRATE 25 MG TABLET PO SCH (09:59)
[2017-02-12] MEDS: guaiFENesin 600 MG TABLET PO SCH ×2 (10:18→20:40)
[2017-02-12] MEDS: METOPROLOL SUCCINATE 25 MG TABLET PO SCH (10:18)
[2017-02-12] MEDS: LISINOPRIL 5 MG TABLET PO SCH (10:18)
[2017-02-12] MEDS: FAMOTIDINE 20 MG TABLET PO SCH (10:19)
[2017-02-12] MEDS: POLYETHYLENE GLYCOL 3350 17 GM PACKET PO SCH (10:19)
[2017-02-12] MEDS: SPIRONOLACTONE 25 MG TABLET PO SCH (10:19)
[2017-02-12] MEDS: cefTRIAXone 1 GM in SODIUM CHLORIDE 0.9% MINIBAG 100 ML IV SCH (10:20)
[2017-02-12] MEDS: LORazepam 2 MG/ML SYRINGE IVP PRN ×2 (12:00→14:00)
[2017-02-12] MEDS: SODIUM CHLORIDE FLUSH 0.9% 10 ML SYRINGE IVP PRN ×2 (14:26→22:42)
--- NOTE | 2017-02-12 14:35 | CT Preliminary Report ---
Exam: CT Head W/O IMPRESSION: 1. No acute intracranial abnormality is identified. 2. Mild left maxillary sinus disease. [facility] SITE ID: [id number]
--- NOTE | 2017-02-12 14:37 | CT Report ---
EXAM: CT HEAD EXAM DATE: 02/12/2017 02:08 PM. CLINICAL HISTORY: Headaches, possible Hx of brain tumor. COMPARISON: 11/30/2012. TECHNIQUE: Multiaxial CT images were obtained from the foramen magnum to the vertex. IV contrast: Non e. Reformats: Coronal. In accordance with CT protocol optimization, one or more of the following dose reduction techniques w ere utilized for this exam: automated exposure control, adjustment of mA and/or KV based on patient s ize, or use of iterative reconstructive technique. FINDINGS: Parenchyma: No intraparenchymal hemorrhage. No evidence of mass, midline shift, or CT findings of inf arction. Garcia-white differentiation is distinct. Extraaxial Spaces: Normal for age. No subdural or epidural collections identified. Ventricles: Normal in size and position. Sinuses: Mild left maxillary sinus disease. Remainder of the paranasal sinuses and mastoid air cells are clear. Bones: No evidence of fracture or calvarial defect. Other: Globes and orbits are unremarkable. IMPRESSION: 1. No acute intracranial abnormality is identified. 2. Mild left maxillary sinus disease. [facility] Referring Provider Line: [phone] SITE ID: [id number]
[2017-02-12] MEDS: SODIUM CHLORIDE INHALATION 3 ML NEB INH PRN ×2 (17:00→21:00)
[2017-02-12] MEDS: LEVALBUTEROL 1.25 MG INH PRN ×2 (17:00→21:00)
--- NOTE | 2017-02-12 17:43 | PROVIDER PROGRESS NOTE ---
Assessment/Plan - Problem List (1) COPD with acute exacerbation Assessment/Plan: Continue present iv antibiotics, steroids and inhalers (2) CHF (congestive heart failure) Qualifiers: Congestive heart failure type: systolic Assessment/Plan: Coronary angio from 2014 showed no CAD, normal LVEF and elevated LVEDP. Continue Lasix, SARAH and Spironolactone, Toprol XL will be ordered. (3) Headache Qualifiers: Headache type: tension-type Assessment/Plan: Will obtain head CT given her new info of "brain tumor". - Current Meds Current Meds: Current Medications Generic Name Dose Route Start Last Admin Trade Name Freq PRN Reason Stop Dose Admin Acetaminophen 650 mg 02/09/17 18:05 02/10/17 06:02 Tylenol PO 650 mg Q4HR PRN Administration Pain 1 to 4 Acetaminophen/Butalbital/Caffeine 1 tab 02/10/17 18:56 02/12/17 13:50 Fioricet PO 1 tab Q4HR PRN Administration HEADACHE Famotidine 20 mg 02/10/17 09:00 02/12/17 10:19 Pepcid PO 20 mg DAILY ROMAN Administration Furosemide 40 mg 02/10/17 20:00 02/12/17 14:26 Lasix Inj 40 Mg Vial IVP 40 mg BIDDIURETIC ROMAN Administration Guaifenesin 10 ml 02/10/17 19:01 02/11/17 20:04 Robitussin Dm PO 10 ml Q6HR PRN Administration Cough Guaifenesin 1,200 mg 02/10/17 20:00 02/12/17 10:18 Mucinex PO 1,200 mg BID ROMAN Administration Ceftriaxone Sodium 1 gm/ 100 mls @ 200 mls/hr 02/10/17 12:00 02/12/17 14:35 Sodium Chloride IV Infused DAILY ROMAN Infusion Levalbuterol HCl 1.25 mg 02/12/17 08:58 02/12/17 17:00 Xopenex INH 1.25 mg RTQ4H PRN Administration WHEEZING/DYSPNEA Lisinopril 5 mg 02/12/17 09:00 02/12/17 10:18 Zestril PO 5 mg DAILY ROMAN Administration Lorazepam 1 mg 02/09/17 21:33 02/12/17 14:00 Ativan Inj IVP 1 mg Q2HR PRN Administration Anxiety Methylprednisolone 80 mg 02/09/17 23:00 02/12/17 15:14 Solu-Medrol (40mg Vial) IVP 80 mg Q8H ROMAN Administration Metoprolol Succinate 12.5 mg 02/12/17 09:00 02/12/17 10:18 Toprol Xl PO 12.5 mg DAILY ROMAN Administration Polyethylene Glycol 17 gm 02/10/17 09:00 02/12/17 10:19 Miralax PO 17 gm DAILY ROMAN Administration Prochlorperazine Edisylate 10 mg 02/09/17 18:05 02/12/17 08:50 Compazine Inj IVP 10 mg Q6HR PRN Administration Nausea / Vomiting Sodium Chloride 10 ml 02/09/17 18:05 02/12/17 14:26 Normal Saline Flush 0.9% IVP 10 ml PRN PRN Administration NEEDED PER PROVIDER ORDERS Sodium Chloride 10 ml 02/09/17 22:00 02/12/17 08:50 Normal Saline Flush 0.9% IVP 10 ml Q8HR ROMAN Administration Sodium Chloride 3 ml 02/12/17 08:58 02/12/17 17:00 Normal Saline INH 3 ml PRN PRN Administration Levalbuterol treatment Spironolactone 25 mg 02/11/17 18:00 02/12/17 10:19 Aldactone PO 25 mg DAILY ROMAN Administration - Lab Result Fish Bone Diagrams: 02/11/17 05:02 02/12/17 06:21 - Additional Planning My Orders: My Active Orders 02/11/17 18:00 Spironolactone [Aldactone] 25 mg PO DAILY 02/12/17 08:58 Levalbuterol [Xopenex] 1.25 mg INH RTQ4H PRN Sodium Chloride [Normal Saline] 3 ml INH PRN PRN 02/12/17 09:00 Lisinopril [Zestril] 5 mg PO DAILY Metoprolol Succinate [Toprol Xl] 12.5 mg PO DAILY Subjective - Subjective Patient Reports: Feeling Better Nursing Reports: Other (Less SOB New info from Pt that she "may have a brain tumor") Objective Vital Signs: Vital Signs - 24 hr 02/11/17 02/11/17 02/11/17 18:00 20:00 20:20 Temperature Heart Rate 87 Heart Rate [ 96 98 Monitoring electrodes] Respiratory 15 36 H 20 Rate Blood Pressure 138/74 H 163/92 H [Left Brachial artery] Blood Pressure [Right Brachial artery] O2 Saturation 95 92 02/11/17 02/12/17 02/12/17 22:00 00:00 02:00 Temperature 36.8 C Heart Rate Heart Rate [ 85 78 72 Monitoring electrodes] Respiratory 22 20 22 Rate Blood Pressure 157/94 H 125/72 [Left Brachial artery] Blood Pressure [Right Brachial artery] O2 Saturation 94 92 92 02/12/17 02/12/17 02/12/17 04:00 05:30 06:00 Temperature 36.7 C Heart Rate 71 Heart Rate [ 71 78 Monitoring electrodes] Respiratory 22 20 24 Rate Blood Pressure [Left Brachial artery] Blood Pressure 162/99 H 138/85 H [Right Brachial artery] O2 Saturation 97 92 02/12/17 02/12/17 02/12/17 07:35 08:00 10:00 Temperature 36.8 C Heart Rate 77 Heart Rate [ 80 78 Monitoring electrodes] Respiratory 16 17 19 Rate Blood Pressure [Left Brachial artery] Blood Pressure 147/96 H 172/120 H [Right Brachial artery] O2 Saturation 92 92 02/12/17 02/12/17 02/12/17 12:00 14:00 16:00 Temperature 36.8 C Heart Rate Heart Rate [ 75 85 66 Monitoring electrodes] Respiratory 23 22 20 Rate Blood Pressure [Left Brachial artery] Blood Pressure 126/70 [Right Brachial artery] O2 Saturation 93 95 02/12/17 17:00 Temperature Heart Rate 73 Heart Rate [ Monitoring electrodes] Respiratory 22 Rate Blood Pressure [Left Brachial artery] Blood Pressure [Right Brachial artery] O2 Saturation Oxygen O2 Source Nasal cannula I&O (Last 24 Hrs): Intake and Output Totals x24h 02/10/17 02/11/17 02/12/17 23:59 23:59 23:59 Intake Total 5350 2470 2840 Output Total 7120 5375 2580 Balance -1770 -2905 260 General: Alert, Oriented x3 HEENT: Mucous membr. moist/pink Neck: Supple Cardiovascular: Other (Distant HS) Respiratory: Wheezes (L base) Abdomen: Other (Obese with pannus) Extremities: No edema (, except hand where iv infiltrated) - Results Results: Laboratory Results WBC 25.6 x10^3/uL (4.8-10.8) H 02/11/17 05:02 RBC 5.00 10^6/uL (4.20-5.40) 02/11/17 05:02 Hgb 15.5 g/dL (12.0-16.0) 02/11/17 05:02 Hct 47.9 % (37.0-47.0) H 02/11/17 05:02 MCV 95.7 fL (81.0-99.0) 02/11/17 05:02 MCH 31.0 pg (27.0-31.0) 02/11/17 05:02 MCHC 32.3 g/dL (32.0-36.0) 02/11/17 05:02 RDW 13.8 % (12.0-15.0) 02/11/17 05:02 Plt Count 237 10^3/uL (130-450) 02/11/17 05:02 MPV 8.0 fL (7.9-10.8) 02/11/17 05:02 Neut # Not Reportable 02/11/17 05:02 Lymph # Not Reportable 02/11/17 05:02 [place] # Not Reportable 02/11/17 05:02 Eos # Not Reportable 02/11/17 05:02 Baso # Not Reportable 02/11/17 05:02 Absolute Nucleated RBC Not Reportable 02/11/17 05:02 Total Counted 100 02/11/17 05:02 Band Neuts % (Manual) 6 % (0-10) 02/11/17 05:02 Metamyelocytes % 1 % (-0) H 02/11/17 05:02 Myelocytes % 1 % (-0) H 02/11/17 05:02 Nucleated RBC % Not Reportable 02/11/17 05:02 Neutrophils # (Manual) 22.8 10^3/uL (1.5-6.6) H 02/11/17 05:02 Lymphocytes # (Manual) 1.5 10^3/uL (1.5-3.5) 02/11/17 05:02 Monocytes # (Manual) 0.8 10^3/uL (0.0-1.0) 02/11/17 05:02 Differential Comment MANUAL DIFFERENTIAL 02/11/17 05:02 Platelet Estimate NORMAL (130-450,000) (NORMAL) 02/11/17 05:02 RBC Morph Micro Appear NORMAL APPEARANCE (NORMAL) 02/11/17 05:02 Bld Gas Analysis Time 213402/09/17 21:35 Sample Site LEFT RADIAL 02/09/17 21:35 ABG pH 7.38 (7.35-7.45) 02/09/17 21:35 ABG pCO2 37 mmHg (34-45) 02/09/17 21:35 ABG pO2 207 mmHg (80-100) H* 02/09/17 21:35 ABG HCO3 22.1 mmol/L (22.0-26.0) 02/09/17 21:35 ABG Total CO2 23.0 MMOL/L (21.0-29.0) 02/09/17 21:35 ABG O2 Saturation 100 % (94-98) H 02/09/17 21:35 ABG Oximetry Spot Check 97 % 02/09/17 21:35 ABG Base Excess -3.0 mmol/L (-2.0-3.0) L 02/09/17 21:35 Elio Test POSITIVE 02/09/17 21:35 O2 Delivery Device NASAL CANNULA 02/09/17 21:35 O2 Liters/Min 6.00 LPM 02/09/17 21:35 Sodium 138 mmol/L (135-145) 02/11/17 05:02 Potassium 4.1 mmol/L (3.5-5.0) 02/12/17 06:21 Chloride 99 mmol/L (101-111) L 02/11/17 05:02 Carbon Dioxide 27 mmol/L (21-32) 02/11/17 05:02 Anion Gap 12.0 (6-13) 02/11/17 05:02 BUN 18 mg/dL (6-20) 02/11/17 05:02 Creatinine 0.8 mg/dL (0.4-1.0) 02/11/17 05:02 Estimated GFR (MDRD) 75 (>89) L 02/11/17 05:02 Glucose 156 mg/dL (70-100) H 02/11/17 05:02 Calcium 9.7 mg/dL (8.5-10.3) 02/12/17 06:21 Ionized Calcium NO 02/10/17 05:00 Phosphorus 3.9 mg/dL (2.5-4.6) 02/12/17 06:21 Magnesium 2.4 mg/dL (1.7-2.8) 02/12/17 06:21 Total Bilirubin 0.5 mg/dL (0.2-1.0) 02/10/17 05:00 AST 19 IU/L (10-42) 02/10/17 05:00 ALT 20 IU/L (10-60) 02/10/17 05:00 Alkaline Phosphatase 87 IU/L (42-121) 02/10/17 05:00 Troponin I < 0.04 ng/mL (<0.49) 02/09/17 15:04 Total Protein 6.9 g/dL (6.7-8.2) 02/10/17 05:00 Albumin 3.6 g/dL (3.2-5.5) 02/10/17 05:00 Globulin 3.3 g/dL (2.1-4.2) 02/10/17 05:00 Albumin/Globulin Ratio 1.1 (1.0-2.2) 02/10/17 05:00 Lipase 78 U/L (22-51) H 02/09/17 15:04 - Procedures Procedures: Procedures ESOPHAGOGASTRODUODENOSCOPY [EGD] W/CLOSED BIOPSY (11/29/13) MANUAL RUPT JOINT ADHES (04/27/14) TOTAL KNEE REPLACEMENT (06/16/14)
[2017-02-12] MEDS: ACETAMINOPHEN 325 MG TABLET PO PRN (20:40)
[2017-02-13] MEDS: SODIUM CHLORIDE INHALATION 3 ML NEB INH PRN ×4 (00:45→16:50)
[2017-02-13] MEDS: LEVALBUTEROL 1.25 MG INH PRN ×4 (00:45→16:50)
[2017-02-13] MEDS: ACETAMINOPHEN 325 MG TABLET PO PRN (00:46)
[2017-02-13] MEDS: LORazepam 2 MG/ML SYRINGE IVP PRN ×2 (01:05→23:45)
[2017-02-13] MEDS: IBUPROFEN 600 MG TABLET PO PRN ×2 (03:38→22:46)
[2017-02-13 06:22] LABS: BASOPHILS % (AUTO) 0.1 %; HCT - HEMATOCRIT 50.1 % (37.0-47.0); HGB - HEMOGLOBIN 16.4 g/dL (12.0-16.0); LYMPHOCYTES # (AUTO) 1.1 10^3/uL (1.5-3.5); LYMPHOCYTES % (AUTO) 7.8 %; MEAN CORPUSCULAR HEMOGLOBIN 31.2 pg (27.0-31.0); MEAN CORPUSCULAR HGB CONC 32.8 g/dL (32.0-36.0); MEAN CORPUSCULAR VOLUME 95.1 fL (81.0-99.0); MEAN PLATELET VOLUME 8.3 fL (7.9-10.8); MONOCYTES # (AUTO) 0.5 10^3/uL (0.0-1.0); MONOCYTES % (AUTO) 3.5 %; NEUTROPHILS # (AUTO) 12.6 10^3/uL (1.5-6.6); NEUTROPHILS % (AUTO) 88.6 %; NUCLEATED RED BLOOD CELLS AUTO 0.1 /100WBC; RED BLOOD COUNT 5.26 10^6/uL (4.20-5.40); RED CELL DISTRIBUTION WIDTH 13.8 % (12.0-15.0); UNCORRECTED WHITE BLOOD COUNT 14.2 x10^3/uL; WHITE BLOOD COUNT 14.2 x10^3/uL (4.8-10.8)
[2017-02-13 06:27] LABS: ALBUMIN/GLOBULIN RATIO 1.1 (1.0-2.2); BILIRUBIN,TOTAL 0.6 mg/dL (0.2-1.0); CALCIUM 9.3 mg/dL (8.5-10.3); MAGNESIUM 2.4 mg/dL (1.7-2.8); PHOSPHORUS 4.6 mg/dL (2.5-4.6); POTASSIUM 3.9 mmol/L (3.5-5.0); TOTAL PROTEIN 6.7 g/dL (6.7-8.2)
[2017-02-13] MEDS: FUROSEMIDE 40 MG/4 ML VIAL IVP SCH ×2 (06:28→15:04)
[2017-02-13] MEDS: methylPREDNISolone SUCCINATE 40 MG/ML VIAL IVP SCH ×3 (06:28→22:39)
[2017-02-13] MEDS: SODIUM CHLORIDE FLUSH 0.9% 10 ML SYRINGE IVP PRN ×2 (06:29→23:45)
[2017-02-13] MEDS: SODIUM CHLORIDE FLUSH 0.9% 10 ML SYRINGE IVP SCH ×3 (06:29→22:39)
[2017-02-13] MEDS: BUTALB/ACETAM/CAFF 50/325/40MG TABLET PO PRN ×3 (06:39→21:16)
[2017-02-13 06:59] LABS: CALCIUM, IONIZED 1.17 mmol/L (1.15-1.33); VBG PH 7.371 (7.31-7.41)
[2017-02-13 08:06] LABS: HEMOGLOBIN A1C 0.85 g/dL
[2017-02-13] MEDS: cefTRIAXone 1 GM in SODIUM CHLORIDE 0.9% MINIBAG 100 ML IV SCH (08:58)
[2017-02-13] MEDS: FAMOTIDINE 20 MG TABLET PO SCH (08:59)
[2017-02-13] MEDS: guaiFENesin 600 MG TABLET PO SCH ×2 (08:59→21:15)
[2017-02-13] MEDS: POLYETHYLENE GLYCOL 3350 17 GM PACKET PO SCH (09:00)
[2017-02-13] MEDS: METOPROLOL SUCCINATE 25 MG TABLET PO SCH (09:00)
[2017-02-13] MEDS: LISINOPRIL 5 MG TABLET PO SCH (09:00)
[2017-02-13] MEDS: SPIRONOLACTONE 25 MG TABLET PO SCH (09:01)
[2017-02-13] MEDS: PROCHLORPERAZINE 10 MG/2 ML VIAL IVP PRN (11:59)
--- NOTE | 2017-02-13 17:17 | PROVIDER PROGRESS NOTE ---
Assessment/Plan - Problem List (1) COPD with acute exacerbation Assessment/Plan: Continue iv antibiotics, iv steroids, inhalers and O2 Pt can be moved out of ICU to Med-Surg room (2) CHF (congestive heart failure) Qualifiers: Congestive heart failure type: systolic Assessment/Plan: Continue diuresis Pt has already had W/U for Cardiomyopathy with L heart cath and cor angio 2 years ago (Outside records reviewed) (3) Headache Qualifiers: Headache type: tension-type Assessment/Plan: Slowly improving Continue Fioricet prn - Current Meds Current Meds: Current Medications Generic Name Dose Route Start Last Admin Trade Name Freq PRN Reason Stop Dose Admin Acetaminophen 650 mg 02/09/17 18:05 02/13/17 00:46 Tylenol PO 650 mg Q4HR PRN Administration Pain 1 to 4 Acetaminophen/Butalbital/Caffeine 1 tab 02/10/17 18:56 02/13/17 11:59 Fioricet PO 1 tab Q4HR PRN Administration HEADACHE Famotidine 20 mg 02/10/17 09:00 02/13/17 08:59 Pepcid PO 20 mg DAILY ROMAN Administration Furosemide 40 mg 02/10/17 20:00 02/13/17 15:04 Lasix Inj 40 Mg Vial IVP 40 mg BIDDIURETIC ROMAN Administration Guaifenesin 10 ml 02/10/17 19:01 02/11/17 20:04 Robitussin Dm PO 10 ml Q6HR PRN Administration Cough Guaifenesin 1,200 mg 02/10/17 20:00 02/13/17 08:59 Mucinex PO 1,200 mg BID ROMAN Administration Ceftriaxone Sodium 1 gm/ 100 mls @ 200 mls/hr 02/10/17 12:00 02/13/17 09:40 Sodium Chloride IV Infused DAILY ROMAN Infusion Ibuprofen 600 mg 02/13/17 03:01 02/13/17 03:38 Motrin PO 600 mg Q6HR PRN Administration PAIN Levalbuterol HCl 1.25 mg 02/12/17 08:58 02/13/17 16:50 Xopenex INH 1.25 mg RTQ4H PRN Administration WHEEZING/DYSPNEA Lisinopril 5 mg 02/12/17 09:00 02/13/17 09:00 Zestril PO Not Given DAILY ROMAN Lorazepam 1 mg 02/09/17 21:33 02/13/17 01:05 Ativan Inj IVP 1 mg Q2HR PRN Administration Anxiety Methylprednisolone 80 mg 02/09/17 23:00 02/13/17 15:05 Solu-Medrol (40mg Vial) IVP 80 mg Q8H ROMAN Administration Metoprolol Succinate 12.5 mg 02/12/17 09:00 02/13/17 09:00 Toprol Xl PO 12.5 mg DAILY ROMAN Administration Polyethylene Glycol 17 gm 02/10/17 09:00 02/13/17 09:00 Miralax PO 17 gm DAILY ROMAN Administration Prochlorperazine Edisylate 10 mg 02/09/17 18:05 02/13/17 11:59 Compazine Inj IVP 10 mg Q6HR PRN Administration Nausea / Vomiting Sodium Chloride 10 ml 02/09/17 18:05 02/13/17 06:29 Normal Saline Flush 0.9% IVP 10 ml PRN PRN Administration NEEDED PER PROVIDER ORDERS Sodium Chloride 10 ml 02/09/17 22:00 02/13/17 15:05 Normal Saline Flush 0.9% IVP 10 ml Q8HR ROMAN Administration Sodium Chloride 3 ml 02/12/17 08:58 02/13/17 16:50 Normal Saline INH 3 ml PRN PRN Administration Levalbuterol treatment Spironolactone 25 mg 02/11/17 18:00 02/13/17 09:01 Aldactone PO 25 mg DAILY ROMAN Administration - Lab Result Fish Bone Diagrams: 02/13/17 04:54 02/13/17 04:54 - Additional Planning My Orders: My Active Orders 02/13/17 17:13 Admit \ Transfer \ Status [RC] .ONCE Subjective - Subjective Patient Reports: Feeling Better Nursing Reports: No Complaints Objective Vital Signs: Vital Signs - 24 hr 02/12/17 02/12/17 02/12/17 18:00 20:00 21:00 Temperature 36.5 C Heart Rate 60 Heart Rate [ 79 79 Monitoring electrodes] Respiratory 21 16 20 Rate Blood Pressure 129/57 L [Left Brachial artery] Blood Pressure 131/69 H [Right Brachial artery] O2 Saturation 96 92 02/12/17 02/13/17 02/13/17 22:00 00:00 00:45 Temperature 36.9 C Heart Rate 62 Heart Rate [ 63 56 L Monitoring electrodes] Respiratory 19 21 16 Rate Blood Pressure [Left Brachial artery] Blood Pressure 142/73 H 155/75 H [Right Brachial artery] O2 Saturation 92 94 02/13/17 02/13/17 02/13/17 02:00 04:00 06:00 Temperature 36.5 C Heart Rate Heart Rate [ 54 L 91 58 L Monitoring electrodes] Respiratory 19 14 21 Rate Blood Pressure [Left Brachial artery] Blood Pressure 122/62 141/75 H 111/68 [Right Brachial artery] O2 Saturation 91 L 96 94 02/13/17 02/13/17 02/13/17 07:30 08:00 09:00 Temperature 36.2 C L Heart Rate 64 Heart Rate [ 67 78 Monitoring electrodes] Respiratory 14 20 18 Rate Blood Pressure [Left Brachial artery] Blood Pressure 117/73 114/66 [Right Brachial artery] O2 Saturation 97 95 02/13/17 02/13/17 02/13/17 10:00 12:14 12:45 Temperature 36.8 C Heart Rate 64 Heart Rate [ 65 70 Monitoring electrodes] Respiratory 20 16 14 Rate Blood Pressure [Left Brachial artery] Blood Pressure 105/58 L 120/69 [Right Brachial artery] O2 Saturation 95 93 02/13/17 02/13/17 02/13/17 14:00 16:00 16:50 Temperature Heart Rate 58 L Heart Rate [ 55 L 63 Monitoring electrodes] Respiratory 18 20 11 L Rate Blood Pressure [Left Brachial artery] Blood Pressure 114/70 108/92 H [Right Brachial artery] O2 Saturation 91 L 92 Oxygen O2 Source Nasal cannula I&O (Last 24 Hrs): Intake and Output Totals x24h 02/11/17 02/12/17 02/13/17 23:59 23:59 23:59 Intake Total 2470 3230 1780 Output Total 5375 4030 2801 Balance -2905 -800 -1021 General: Alert HEENT: Mucous membr. moist/pink Neck: Supple Cardiovascular: Regular rate Respiratory: Other (Slightly improved air movement, intermittent wheezes) Extremities: No edema - Results Results: Laboratory Results WBC 14.2 x10^3/uL (4.8-10.8) H 02/13/17 04:54 RBC 5.26 10^6/uL (4.20-5.40) 02/13/17 04:54 Hgb 16.4 g/dL (12.0-16.0) H 02/13/17 04:54 Hct 50.1 % (37.0-47.0) H 02/13/17 04:54 MCV 95.1 fL (81.0-99.0) 02/13/17 04:54 MCH 31.2 pg (27.0-31.0) H 02/13/17 04:54 MCHC 32.8 g/dL (32.0-36.0) 02/13/17 04:54 RDW 13.8 % (12.0-15.0) 02/13/17 04:54 Plt Count 259 10^3/uL (130-450) 02/13/17 04:54 MPV 8.3 fL (7.9-10.8) 02/13/17 04:54 Neut # 12.6 10^3/uL (1.5-6.6) H 02/13/17 04:54 Lymph # 1.1 10^3/uL (1.5-3.5) L 02/13/17 04:54 [place] # 0.5 10^3/uL (0.0-1.0) 02/13/17 04:54 Eos # 0.0 10^3/uL (0.0-0.7) 02/13/17 04:54 Baso # 0.0 10^3/uL (0.0-0.1) 02/13/17 04:54 Absolute Nucleated RBC 0.01 x10^3/uL 02/13/17 04:54 Total Counted 100 02/11/17 05:02 Band Neuts % (Manual) 6 % (0-10) 02/11/17 05:02 Metamyelocytes % 1 % (-0) H 02/11/17 05:02 Myelocytes % 1 % (-0) H 02/11/17 05:02 Nucleated RBC % 0.1 /100WBC 02/13/17 04:54 Neutrophils # (Manual) 22.8 10^3/uL (1.5-6.6) H 02/11/17 05:02 Lymphocytes # (Manual) 1.5 10^3/uL (1.5-3.5) 02/11/17 05:02 Monocytes # (Manual) 0.8 10^3/uL (0.0-1.0) 02/11/17 05:02 Differential Comment MANUAL DIFFERENTIAL 02/11/17 05:02 Platelet Estimate NORMAL (130-450,000) (NORMAL) 02/11/17 05:02 RBC Morph Micro Appear NORMAL APPEARANCE (NORMAL) 02/11/17 05:02 Bld Gas Analysis Time 213402/09/17 21:35 Sample Site LEFT RADIAL 02/09/17 21:35 ABG pH 7.38 (7.35-7.45) 02/09/17 21:35 ABG pCO2 37 mmHg (34-45) 02/09/17 21:35 ABG pO2 207 mmHg (80-100) H* 02/09/17 21:35 ABG HCO3 22.1 mmol/L (22.0-26.0) 02/09/17 21:35 ABG Total CO2 23.0 MMOL/L (21.0-29.0) 02/09/17 21:35 ABG O2 Saturation 100 % (94-98) H 02/09/17 21:35 ABG Oximetry Spot Check 97 % 02/09/17 21:35 ABG Base Excess -3.0 mmol/L (-2.0-3.0) L 02/09/17 21:35 Elio Test POSITIVE 02/09/17 21:35 VBG pH 7.371 (7.31-7.41) 02/13/17 04:54 Ionized Calcium 1.17 mmol/L (1.15-1.33) 02/13/17 04:54 O2 Delivery Device NASAL CANNULA 02/09/17 21:35 O2 Liters/Min 6.00 LPM 02/09/17 21:35 Sodium 137 mmol/L (135-145) 02/13/17 04:54 Potassium 3.9 mmol/L (3.5-5.0) 02/13/17 04:54 Chloride 95 mmol/L (101-111) L 02/13/17 04:54 Carbon Dioxide 28 mmol/L (21-32) 02/13/17 04:54 Anion Gap 14.0 (6-13) H 02/13/17 04:54 BUN 36 mg/dL (6-20) H 02/13/17 04:54 Creatinine 1.0 mg/dL (0.4-1.0) 02/13/17 04:54 Estimated GFR (MDRD) 58 (>89) L 02/13/17 04:54 Glucose 245 mg/dL (70-100) H 02/13/17 04:54 Glycated Hemoglobin 6.5 % (4.6-6.2) H 02/13/17 04:54 Estim Average Glucose 140 (70-100) H 02/13/17 04:54 Calcium 9.3 mg/dL (8.5-10.3) 02/13/17 04:54 Ionized Calcium NO 02/10/17 05:00 Phosphorus 4.6 mg/dL (2.5-4.6) 02/13/17 04:54 Magnesium 2.4 mg/dL (1.7-2.8) 02/13/17 04:54 Total Bilirubin 0.6 mg/dL (0.2-1.0) 02/13/17 04:54 AST 51 IU/L (10-42) H 02/13/17 04:54 ALT 55 IU/L (10-60) 02/13/17 04:54 Alkaline Phosphatase 80 IU/L (42-121) 02/13/17 04:54 Troponin I < 0.04 ng/mL (<0.49) 02/09/17 15:04 Total Protein 6.7 g/dL (6.7-8.2) 02/13/17 04:54 Albumin 3.5 g/dL (3.2-5.5) 02/13/17 04:54 Globulin 3.2 g/dL (2.1-4.2) 02/13/17 04:54 Albumin/Globulin Ratio 1.1 (1.0-2.2) 02/13/17 04:54 Lipase 78 U/L (22-51) H 02/09/17 15:04 - Procedures Procedures: Procedures ESOPHAGOGASTRODUODENOSCOPY [EGD] W/CLOSED BIOPSY (11/29/13) MANUAL RUPT JOINT ADHES (04/27/14) TOTAL KNEE REPLACEMENT (06/16/14)
[2017-02-14] MEDS: SODIUM CHLORIDE INHALATION 3 ML NEB INH PRN ×4 (04:16→19:58)
[2017-02-14] MEDS: LEVALBUTEROL 1.25 MG INH PRN ×4 (04:16→19:57)
[2017-02-14] MEDS: methylPREDNISolone SUCCINATE 40 MG/ML VIAL IVP SCH ×2 (06:32→15:21)
[2017-02-14] MEDS: SODIUM CHLORIDE FLUSH 0.9% 10 ML SYRINGE IVP SCH ×3 (06:33→20:32)
[2017-02-14] MEDS: FUROSEMIDE 40 MG/4 ML VIAL IVP SCH ×2 (06:33→15:20)
[2017-02-14] MEDS: IBUPROFEN 600 MG TABLET PO PRN ×3 (06:46→20:31)
[2017-02-14] MEDS: BUTALB/ACETAM/CAFF 50/325/40MG TABLET PO PRN ×3 (06:47→20:31)
[2017-02-14] MEDS: cefTRIAXone 1 GM in SODIUM CHLORIDE 0.9% MINIBAG 100 ML IV SCH (08:54)
[2017-02-14] MEDS: FAMOTIDINE 20 MG TABLET PO SCH (08:56)
[2017-02-14] MEDS: guaiFENesin 600 MG TABLET PO SCH ×2 (08:56→20:32)
[2017-02-14] MEDS: METOPROLOL SUCCINATE 25 MG TABLET PO SCH (08:57)
[2017-02-14] MEDS: POLYETHYLENE GLYCOL 3350 17 GM PACKET PO SCH (08:58)
[2017-02-14] MEDS: SPIRONOLACTONE 25 MG TABLET PO SCH (08:58)
[2017-02-14] MEDS: LISINOPRIL 5 MG TABLET PO SCH ×2 (08:59→09:04)
[2017-02-14] MEDS: PROCHLORPERAZINE 10 MG/2 ML VIAL IVP PRN (09:01)
[2017-02-14] MEDS: SODIUM CHLORIDE FLUSH 0.9% 10 ML SYRINGE IVP PRN (09:01)
--- NOTE | 2017-02-14 17:22 | PROVIDER PROGRESS NOTE ---
Assessment/Plan - Problem List (1) COPD with acute exacerbation Assessment/Plan: Continue iv antibiotics, iv steroids, inhalers and O2 Patient improving Down to room air but still feels short of breath with exertion Will have patient ambulate today without O2 If patient does well today could be discharged tomorrow (2) CHF (congestive heart failure) Qualifiers: Congestive heart failure type: systolic Assessment/Plan: Continue diuresis Pt has already had W/U for Cardiomyopathy with L heart cath and cor angio 2 years ago (Outside records reviewed) EF 55-60% Fluid restriction 2L Improving (3) Headache Qualifiers: Headache type: tension-type Assessment/Plan: Slowly improving Continue Fioricet prn (4) Nausea Assessment/Plan: Patient does not feel good this morning she is having nausea after breakfast Patients nausea is likely secondary to constipation Will continue stool softners and patients advised to ambulate the [place] - Current Meds Current Meds: Current Medications Generic Name Dose Route Start Last Admin Trade Name Freq PRN Reason Stop Dose Admin Acetaminophen 650 mg 02/09/17 18:05 02/13/17 00:46 Tylenol PO 650 mg Q4HR PRN Administration Pain 1 to 4 Acetaminophen/Butalbital/Caffeine 1 tab 02/10/17 18:56 02/14/17 10:13 Fioricet PO 1 tab Q4HR PRN Administration HEADACHE Famotidine 20 mg 02/10/17 09:00 02/14/17 08:56 Pepcid PO 20 mg DAILY ROMAN Administration Furosemide 40 mg 02/10/17 20:00 02/14/17 15:20 Lasix Inj 40 Mg Vial IVP 40 mg BIDDIURETIC ROMAN Administration Guaifenesin 10 ml 02/10/17 19:01 02/11/17 20:04 Robitussin Dm PO 10 ml Q6HR PRN Administration Cough Guaifenesin 1,200 mg 02/10/17 20:00 02/14/17 08:56 Mucinex PO 1,200 mg BID ROMAN Administration Ceftriaxone Sodium 1 gm/ 100 mls @ 200 mls/hr 02/10/17 12:00 02/14/17 11:14 Sodium Chloride IV Infused DAILY ROMAN Infusion Ibuprofen 600 mg 02/13/17 03:01 02/14/17 10:12 Motrin PO 600 mg Q6HR PRN Administration PAIN Levalbuterol HCl 1.25 mg 02/12/17 08:58 02/14/17 14:05 Xopenex INH 1.25 mg RTQ4H PRN Administration WHEEZING/DYSPNEA Lisinopril 5 mg 02/12/17 09:00 02/14/17 09:04 Zestril PO Not Given DAILY ROMAN Lorazepam 1 mg 02/09/17 21:33 02/13/17 23:45 Ativan Inj IVP 1 mg Q2HR PRN Administration Anxiety Metoprolol Succinate 12.5 mg 02/12/17 09:00 02/14/17 08:57 Toprol Xl PO 12.5 mg DAILY ROMAN Administration Polyethylene Glycol 17 gm 02/10/17 09:00 02/14/17 08:58 Miralax PO 17 gm DAILY ROMAN Administration Prochlorperazine Edisylate 10 mg 02/09/17 18:05 02/14/17 09:01 Compazine Inj IVP 10 mg Q6HR PRN Administration Nausea / Vomiting Sodium Chloride 10 ml 02/09/17 18:05 02/14/17 09:01 Normal Saline Flush 0.9% IVP 10 ml PRN PRN Administration NEEDED PER PROVIDER ORDERS Sodium Chloride 10 ml 02/09/17 22:00 02/14/17 15:21 Normal Saline Flush 0.9% IVP 10 ml Q8HR ROMAN Administration Sodium Chloride 3 ml 02/12/17 08:58 02/14/17 14:05 Normal Saline INH 3 ml PRN PRN Administration Levalbuterol treatment Spironolactone 25 mg 02/11/17 18:00 02/14/17 08:58 Aldactone PO 25 mg DAILY ROMAN Administration - Lab Result Lab results reviewed: Yes Fish Bone Diagrams: 02/13/17 04:54 02/13/17 04:54 - Diagnostic Imaging Results Diagnostic Imaging Results: Final report reviewed - Additional Planning Condition/Complexity: Guarded My Orders: My Active Orders 02/14/17 15:48 Fluid Restriction [RC] ONCE 02/14/17 16:00 predniSONE [Deltasone] 40 mg PO DAILYWM Plan Discussed with:: Patient Time Spent: 31-60 minutes Subjective - Subjective Patient Reports: Constipation (Patient constipated), Nausea (Patient nauseated this morning after her breakfast.), Shortness of Breath (States she is still short of breath with exertion. No fevers, cough improved. No chest pain.) Nursing Reports: No Complaints Objective Vital Signs: Vital Signs - 24 hr 02/13/17 02/13/17 02/13/17 20:00 21:46 23:37 Temperature 37.2 C 36.9 C Heart Rate Heart Rate [ 62 51 L Monitoring electrodes] Respiratory 22 24 Rate Blood Pressure 117/65 136/77 H [Right Brachial artery] O2 Saturation 93 95 97 02/14/17 02/14/17 02/14/17 04:05 04:16 07:25 Temperature 36.9 C Heart Rate 65 88 Heart Rate [ 73 Monitoring electrodes] Respiratory 20 16 12 Rate Blood Pressure 122/69 [Right Brachial artery] O2 Saturation 93 02/14/17 02/14/17 02/14/17 08:00 08:59 12:00 Temperature 36.6 C 37 C Heart Rate Heart Rate [ 66 73 68 Monitoring electrodes] Respiratory 18 20 16 Rate Blood Pressure 112/59 L 111/55 L 104/65 [Right Brachial artery] O2 Saturation 93 92 93 02/14/17 02/14/17 14:05 15:21 Temperature 36.9 C Heart Rate 64 Heart Rate [ 65 Monitoring electrodes] Respiratory 14 15 Rate Blood Pressure 127/61 [Right Brachial artery] O2 Saturation 95 Oxygen O2 Source Room air I&O (Last 24 Hrs): Intake and Output Totals x24h 02/12/17 02/13/17 02/14/17 23:59 23:59 23:59 Intake Total 3230 2120 1440 Output Total 4030 3751 3600 Balance -800 -1631 -2160 General: Alert, Oriented x3, Cooperative, Other (Obese) HEENT: Atraumatic, PERRLA, EOMI, Mucous membr. moist/pink Neck: Supple, No JVD, No thyromegaly, +2 carotid pulse wo bruit, No LAD Lymphatic: no adenopathy Neuro: Non Focal, CN 2-12 Grossly Intact, Oriented Times 3 Cardiovascular: Regular rate, Normal S1, Normal S2, No murmurs Respiratory: Chest non-tender, No respiratory distress, Wheezes, Rales Abdomen: Normal bowel sounds, Soft, No tenderness, No hepatospenomegaly Extremities: No clubbing, No cyanosis, No edema, Normal pulses, No tenderness/ swelling Skin: No rashes, No breakdown - Results Results: Laboratory Results WBC 14.2 x10^3/uL (4.8-10.8) H 02/13/17 04:54 RBC 5.26 10^6/uL (4.20-5.40) 02/13/17 04:54 Hgb 16.4 g/dL (12.0-16.0) H 02/13/17 04:54 Hct 50.1 % (37.0-47.0) H 02/13/17 04:54 MCV 95.1 fL (81.0-99.0) 02/13/17 04:54 MCH 31.2 pg (27.0-31.0) H 02/13/17 04:54 MCHC 32.8 g/dL (32.0-36.0) 02/13/17 04:54 RDW 13.8 % (12.0-15.0) 02/13/17 04:54 Plt Count 259 10^3/uL (130-450) 02/13/17 04:54 MPV 8.3 fL (7.9-10.8) 02/13/17 04:54 Neut # 12.6 10^3/uL (1.5-6.6) H 02/13/17 04:54 Lymph # 1.1 10^3/uL (1.5-3.5) L 02/13/17 04:54 [place] # 0.5 10^3/uL (0.0-1.0) 02/13/17 04:54 Eos # 0.0 10^3/uL (0.0-0.7) 02/13/17 04:54 Baso # 0.0 10^3/uL (0.0-0.1) 02/13/17 04:54 Absolute Nucleated RBC 0.01 x10^3/uL 02/13/17 04:54 Total Counted 100 02/11/17 05:02 Band Neuts % (Manual) 6 % (0-10) 02/11/17 05:02 Metamyelocytes % 1 % (-0) H 02/11/17 05:02 Myelocytes % 1 % (-0) H 02/11/17 05:02 Nucleated RBC % 0.1 /100WBC 02/13/17 04:54 Neutrophils # (Manual) 22.8 10^3/uL (1.5-6.6) H 02/11/17 05:02 Lymphocytes # (Manual) 1.5 10^3/uL (1.5-3.5) 02/11/17 05:02 Monocytes # (Manual) 0.8 10^3/uL (0.0-1.0) 02/11/17 05:02 Differential Comment MANUAL DIFFERENTIAL 02/11/17 05:02 Platelet Estimate NORMAL (130-450,000) (NORMAL) 02/11/17 05:02 RBC Morph Micro Appear NORMAL APPEARANCE (NORMAL) 02/11/17 05:02 Bld Gas Analysis Time 213402/09/17 21:35 Sample Site LEFT RADIAL 02/09/17 21:35 ABG pH 7.38 (7.35-7.45) 02/09/17 21:35 ABG pCO2 37 mmHg (34-45) 02/09/17 21:35 ABG pO2 207 mmHg (80-100) H* 02/09/17 21:35 ABG HCO3 22.1 mmol/L (22.0-26.0) 02/09/17 21:35 ABG Total CO2 23.0 MMOL/L (21.0-29.0) 02/09/17 21:35 ABG O2 Saturation 100 % (94-98) H 02/09/17 21:35 ABG Oximetry Spot Check 97 % 02/09/17 21:35 ABG Base Excess -3.0 mmol/L (-2.0-3.0) L 02/09/17 21:35 Elio Test POSITIVE 02/09/17 21:35 VBG pH 7.371 (7.31-7.41) 02/13/17 04:54 Ionized Calcium 1.17 mmol/L (1.15-1.33) 02/13/17 04:54 O2 Delivery Device NASAL CANNULA 02/09/17 21:35 O2 Liters/Min 6.00 LPM 02/09/17 21:35 Sodium 137 mmol/L (135-145) 02/13/17 04:54 Potassium 3.9 mmol/L (3.5-5.0) 02/13/17 04:54 Chloride 95 mmol/L (101-111) L 02/13/17 04:54 Carbon Dioxide 28 mmol/L (21-32) 02/13/17 04:54 Anion Gap 14.0 (6-13) H 02/13/17 04:54 BUN 36 mg/dL (6-20) H 02/13/17 04:54 Creatinine 1.0 mg/dL (0.4-1.0) 02/13/17 04:54 Estimated GFR (MDRD) 58 (>89) L 02/13/17 04:54 Glucose 245 mg/dL (70-100) H 02/13/17 04:54 Glycated Hemoglobin 6.5 % (4.6-6.2) H 02/13/17 04:54 Estim Average Glucose 140 (70-100) H 02/13/17 04:54 Calcium 9.3 mg/dL (8.5-10.3) 02/13/17 04:54 Ionized Calcium NO 02/10/17 05:00 Phosphorus 4.6 mg/dL (2.5-4.6) 02/13/17 04:54 Magnesium 2.4 mg/dL (1.7-2.8) 02/13/17 04:54 Total Bilirubin 0.6 mg/dL (0.2-1.0) 02/13/17 04:54 AST 51 IU/L (10-42) H 02/13/17 04:54 ALT 55 IU/L (10-60) 02/13/17 04:54 Alkaline Phosphatase 80 IU/L (42-121) 02/13/17 04:54 Troponin I < 0.04 ng/mL (<0.49) 02/09/17 15:04 Total Protein 6.7 g/dL (6.7-8.2) 02/13/17 04:54 Albumin 3.5 g/dL (3.2-5.5) 02/13/17 04:54 Globulin 3.2 g/dL (2.1-4.2) 02/13/17 04:54 Albumin/Globulin Ratio 1.1 (1.0-2.2) 02/13/17 04:54 Lipase 78 U/L (22-51) H 02/09/17 15:04 - Procedures Procedures: Procedures ESOPHAGOGASTRODUODENOSCOPY [EGD] W/CLOSED BIOPSY (11/29/13) MANUAL RUPT JOINT ADHES (04/27/14) TOTAL KNEE REPLACEMENT (06/16/14)
[2017-02-14] MEDS: predniSONE 20 MG TABLET PO SCH (17:29)
[2017-02-15] MEDS: BUTALB/ACETAM/CAFF 50/325/40MG TABLET PO PRN (01:40)
[2017-02-15] MEDS: SODIUM CHLORIDE FLUSH 0.9% 10 ML SYRINGE IVP SCH (06:01)
[2017-02-15] MEDS: FUROSEMIDE 40 MG/4 ML VIAL IVP SCH (06:01)
[2017-02-15] MEDS: SODIUM CHLORIDE INHALATION 3 ML NEB INH PRN (07:20)
[2017-02-15] MEDS: LEVALBUTEROL 1.25 MG INH PRN (07:20)
[2017-02-15] MEDS: SPIRONOLACTONE 25 MG TABLET PO SCH (09:18)
[2017-02-15] MEDS: METOPROLOL SUCCINATE 25 MG TABLET PO SCH (09:18)
[2017-02-15] MEDS: guaiFENesin 600 MG TABLET PO SCH (09:18)
[2017-02-15] MEDS: FAMOTIDINE 20 MG TABLET PO SCH (09:18)
[2017-02-15] MEDS: LISINOPRIL 5 MG TABLET PO SCH (09:18)
[2017-02-15] MEDS: predniSONE 20 MG TABLET PO SCH (09:26)
[2017-02-15] MEDS: cefTRIAXone 1 GM in SODIUM CHLORIDE 0.9% MINIBAG 100 ML IV SCH (09:31)
--- NOTE | 2017-02-15 10:07 | Discharge Plan ---
Discharge Plan Disposition: 01 Home, Self Care Condition: Fair Prescriptions: Fluticasone/Salmeterol [Advair 250-50 Diskus] 1 each IH BID #1 blst.w.dev Lisinopril [Zestril] 5 mg PO DAILY #30 tablet Metoprolol Succinate [Toprol Xl] 12.5 mg PO DAILY #30 tablet predniSONE [Deltasone] 20 mg PO DAILYWM #8 tablet Spironolactone [Aldactone] 25 mg PO DAILY #30 tablet Diet: Low Sodium Activity Restrictions: No Restrictions Shower Restrictions: No Driving Restrictions: No Weight Bearing: Full Weight Additional Instructions or Follow Up instructions: You have been started on new medications for heart failure which should help to keep the fluid down in your legs and in your lungs. You have also been prescribed a medication (Metoprolol) which should allow your heart to slow down and fill up with every beat to pump more blood. You will also need to complete a taper of steroids with prednisone. I have started you on a new inhaler called Advair that you should take 2 times a day every day and should help to keep you out of the hospital. Please drink no more than 2 L of fluid a day. No Smoking: If you smoke, Please STOP! Call for help. Follow-up with: Fiorella Rivera ARNP [Primary Care Provider] -
[2017-02-15] MEDS: POLYETHYLENE GLYCOL 3350 17 GM PACKET PO SCH (10:52)
[2017-02-15 11:29] VITALS: BP 135/75
--- NOTE | 2017-02-15 17:01 | DISCHARGE SUMMARY ---
Discharge Summary Admit Date: 02/09/17 Discharge Date: 02/15/17 Discharging Provider: Chintan Dean MD Primary Care Provider: Yesenia FLORIAN Code Status: Attempt Resuscitation Condition at Discharge: Fair Discharge Disposition: 01 Home, Self Care - DIAGNOSES Admission Diagnoses: 1. COPD exacerbation 2. Tobacco abuse 3. Morbid obesity 4. Mild renal insufficiency 5. Elevated lipase Discharge Diagnoses with Status of Each Condition: 1. COPD exacerbation: Resolving 2. Diastolic heart failure with preserved ejection fraction 3. Migraine 4. Morbid obesity 5. Tobacco abuse - HPI History of Present Illness: Patient is a 51-year-old female with a history of morbid obesity, tobacco abuse , COPD with multiple exacerbations requiring admission in the past year. She presented to the emergency department with a chief complaint of shortness of air. She stated that she had been exposed to somebody with an upper respiratory infection which it caused her nasal congestion and then she started having a new cough with progressively worsening shortness of breath. When the patient presented to the emergency department she was tachypneic with respiratory rate in the 30s, hypoxic with oxygen saturation in the 80s and was treated in the emergency department with nebulizers and steroids but only had minimal improvement. The patient also had significant wheezing despite treatment in the emergency department. The patient continued to be very tachypneic and eventually was admitted to the intensive care unit on BiPAP. - HOSPITAL COURSE Hospital Course: Patient was admitted with acute respiratory failure secondary to COPD exacerbation and placed on BiPAP in the ICU. The patient was weaned off BiPAP over the course of 1 night. She was also found to have pulmonary edema and was treated with IV Lasix along with duo nebs, IV steroids and antibiotics. The patient's echocardiogram showed a preserved ejection fraction but grade 2 diastolic dysfunction. The patient was placed on optimal treatment for congestive heart failure with lisinopril, spironolactone and metoprolol. The patient received IV Lasix and was placed on a fluid restriction for several days. The patient had significant improvement in her symptoms she was eventually weaned off of oxygen. The patient completed a course of antibiotics in the hospital with IV ceftriaxone. The patient was counseled on smoking cessation and is committed to quitting tobacco use. The patient was also given education on congestive heart failure and understands that she needs to eat a low-salt diet and restrict her fluid intake. The patient was discharged home with prednisone, Advair, lisinopril, metoprolol and spironolactone. The patient was also told to continue using her home nebulizer as needed. At the time of discharge the patient appeared to be in stable condition she was walking the halls without requiring oxygen and was in stable respiratory condition. The patient was asked to follow-up with her primary care physician in the next 1-2 weeks. - ALLERGIES Allergies/Adverse Reactions: Allergies Allergy/AdvReac Type Severity Reaction Status Date / Time codeine [Codeine] Allergy Severe Swelling/Hi Verified 11/10/16 08:39 ves erythromycin base Allergy Severe Anaphylaxis Verified 11/10/16 08:39 [Erythromycin Base] gabapentin Allergy Severe Anaphylaxis Verified 11/10/16 08:39 Latex, Natural Rubber Allergy Severe Blisters Verified 11/10/16 08:39 pamabrom [From Midol] Allergy Severe Respiratory Verified 11/10/16 08:39 pyrilamine maleate * Allergy Severe Respiratory Verified 11/10/16 08:39 [From Midol] shellfish derived Allergy Severe Anaphylaxis Verified 11/10/16 08:39 venom-honey bee Allergy Severe Anaphylaxis Verified 11/10/16 08:39 [bee venom (honey bee)] chlorhexidine Allergy Intermediate Rash Verified 11/10/16 08:39 ondansetron Allergy Respiratory Verified 11/10/16 08:39 CLR AdvReac Severe Respiratory Uncoded 12/24/15 12:14 - MEDICATIONS Home Medications: Ambulatory Orders Medication Instructions Recorded Confirmed Albuterol Sulfate [Proair Hfa 1 puffs INH Q6H PRN 02/10/17 02/10/17 Inhaler] Fluticasone/Salmeterol [Advair 1 each IH BID #1 blst.w.dev 02/15/17 250-50 Diskus] Lisinopril [Zestril] 5 mg PO DAILY #30 tablet 02/15/17 Metoprolol Succinate [Toprol Xl] 12.5 mg PO DAILY #30 tablet 02/15/17 Spironolactone [Aldactone] 25 mg PO DAILY #30 tablet 02/15/17 predniSONE [Deltasone] 20 mg PO DAILYWM #8 tablet 02/15/17 - PHYSICAL EXAM AT DISCHARGE General Appearance: positive: No acute distress, Alert, Other (pbese) Eyes Bilateral: positive: Normal inspection, PERRL, EOMI, No lid inflammation, Conjunctivae nml, No scleral icterus ENT: positive: ENT inspection nml, Pharynx nml, No signs of dehydration. negative: Purulent nasal drainage, Pharyngeal erythema, Oral lesions Neck: positive: Nml inspection, Thyroid nml, No JVD, Trachea midline. negative : Thyromegaly, Lymphadenopathy (R), Lymphadenopathy (L), Carotid bruit, Tracheal deviation Respiratory: positive: Chest non-tender, No respiratory distress, Breath sounds nml. negative: Wheezes, Rales, Rhonchi Cardiovascular: positive: Regular rate & rhythm, No murmur, No gallop Peripheral Pulses: positive: 2+ Abdomen: positive: Non-tender, No organomegaly, Nml bowel sounds, No distention. negative: Guarding, Rebound, Hepatomegaly Back: positive: Nml inspection. negative: CVA tenderness (R), CVA tenderness (L ) Skin: positive: Color nml, No rash, Warm. negative: Cyanosis, Diaphoresis, Pallor Extremities: positive: Non-tender, Full ROM, Nml appearance, No pedal edema Neurologic/Psychiatric: positive: Oriented x3, CN's nml (2-12), Motor nml, Sensation nml, Mood/affect nml - LABS Result Diagrams: 02/13/17 04:54 02/13/17 04:54 Other Lab Results: Laboratory Results WBC 14.2 x10^3/uL (4.8-10.8) H 02/13/17 04:54 RBC 5.26 10^6/uL (4.20-5.40) 02/13/17 04:54 Hgb 16.4 g/dL (12.0-16.0) H 02/13/17 04:54 Hct 50.1 % (37.0-47.0) H 02/13/17 04:54 MCV 95.1 fL (81.0-99.0) 02/13/17 04:54 MCH 31.2 pg (27.0-31.0) H 02/13/17 04:54 MCHC 32.8 g/dL (32.0-36.0) 02/13/17 04:54 RDW 13.8 % (12.0-15.0) 02/13/17 04:54 Plt Count 259 10^3/uL (130-450) 02/13/17 04:54 MPV 8.3 fL (7.9-10.8) 02/13/17 04:54 Neut # 12.6 10^3/uL (1.5-6.6) H 02/13/17 04:54 Lymph # 1.1 10^3/uL (1.5-3.5) L 02/13/17 04:54 [place] # 0.5 10^3/uL (0.0-1.0) 02/13/17 04:54 Eos # 0.0 10^3/uL (0.0-0.7) 02/13/17 04:54 Baso # 0.0 10^3/uL (0.0-0.1) 02/13/17 04:54 Absolute Nucleated RBC 0.01 x10^3/uL 02/13/17 04:54 Total Counted 100 02/11/17 05:02 Band Neuts % (Manual) 6 % (0-10) 02/11/17 05:02 Metamyelocytes % 1 % (-0) H 02/11/17 05:02 Myelocytes % 1 % (-0) H 02/11/17 05:02 Nucleated RBC % 0.1 /100WBC 02/13/17 04:54 Neutrophils # (Manual) 22.8 10^3/uL (1.5-6.6) H 02/11/17 05:02 Lymphocytes # (Manual) 1.5 10^3/uL (1.5-3.5) 02/11/17 05:02 Monocytes # (Manual) 0.8 10^3/uL (0.0-1.0) 02/11/17 05:02 Differential Comment MANUAL DIFFERENTIAL 02/11/17 05:02 Platelet Estimate NORMAL (130-450,000) (NORMAL) 02/11/17 05:02 RBC Morph Micro Appear NORMAL APPEARANCE (NORMAL) 02/11/17 05:02 Bld Gas Analysis Time 213402/09/17 21:35 Sample Site LEFT RADIAL 02/09/17 21:35 ABG pH 7.38 (7.35-7.45) 02/09/17 21:35 ABG pCO2 37 mmHg (34-45) 02/09/17 21:35 ABG pO2 207 mmHg (80-100) H* 02/09/17 21:35 ABG HCO3 22.1 mmol/L (22.0-26.0) 02/09/17 21:35 ABG Total CO2 23.0 MMOL/L (21.0-29.0) 02/09/17 21:35 ABG O2 Saturation 100 % (94-98) H 02/09/17 21:35 ABG Oximetry Spot Check 97 % 02/09/17 21:35 ABG Base Excess -3.0 mmol/L (-2.0-3.0) L 02/09/17 21:35 Elio Test POSITIVE 02/09/17 21:35 VBG pH 7.371 (7.31-7.41) 02/13/17 04:54 Ionized Calcium 1.17 mmol/L (1.15-1.33) 02/13/17 04:54 O2 Delivery Device NASAL CANNULA 02/09/17 21:35 O2 Liters/Min 6.00 LPM 02/09/17 21:35 Sodium 137 mmol/L (135-145) 02/13/17 04:54 Potassium 3.9 mmol/L (3.5-5.0) 02/13/17 04:54 Chloride 95 mmol/L (101-111) L 02/13/17 04:54 Carbon Dioxide 28 mmol/L (21-32) 02/13/17 04:54 Anion Gap 14.0 (6-13) H 02/13/17 04:54 BUN 36 mg/dL (6-20) H 02/13/17 04:54 Creatinine 1.0 mg/dL (0.4-1.0) 02/13/17 04:54 Estimated GFR (MDRD) 58 (>89) L 02/13/17 04:54 Glucose 245 mg/dL (70-100) H 02/13/17 04:54 Glycated Hemoglobin 6.5 % (4.6-6.2) H 02/13/17 04:54 Estim Average Glucose 140 (70-100) H 02/13/17 04:54 Calcium 9.3 mg/dL (8.5-10.3) 02/13/17 04:54 Ionized Calcium NO 02/10/17 05:00 Phosphorus 4.6 mg/dL (2.5-4.6) 02/13/17 04:54 Magnesium 2.4 mg/dL (1.7-2.8) 02/13/17 04:54 Total Bilirubin 0.6 mg/dL (0.2-1.0) 02/13/17 04:54 AST 51 IU/L (10-42) H 02/13/17 04:54 ALT 55 IU/L (10-60) 02/13/17 04:54 Alkaline Phosphatase 80 IU/L (42-121) 02/13/17 04:54 Troponin I < 0.04 ng/mL (<0.49) 02/09/17 15:04 Total Protein 6.7 g/dL (6.7-8.2) 02/13/17 04:54 Albumin 3.5 g/dL (3.2-5.5) 02/13/17 04:54 Globulin 3.2 g/dL (2.1-4.2) 02/13/17 04:54 Albumin/Globulin Ratio 1.1 (1.0-2.2) 02/13/17 04:54 Lipase 78 U/L (22-51) H 02/09/17 15:04 - DIAGNOSTIC IMAGING Diagnostic Imaging Results: Final report reviewed Diagnostic Imaging Results Comments: Chest x-ray Impression: No acute intrathoracic plain film abnormality. Chest x-ray Impression: New mild/moderate CHF pattern CT head Impression: 1. No acute intracranial abnormality is identified. 2. Mild left maxillary sinus disease. - FOLLOW UP Follow Up: Patient discharged home with a course of prednisone and a new prescription for Advair. The patient was also told to continue using her inhaler and nebulizer as needed. Patient was also discharged with new prescription for lisinopril, spironolactone and metoprolol for treatment of congestive heart failure and hypertension. The patient was given education on CHF as well as on tobacco cessation. The patient will follow up with her primary care physician for further outpatient management. - TIME SPENT Time Spent in Discharge (Minutes): 40 (Fax to PCP)
== END 2017-02-15 11:00 | disposition home or self-care (01) | DRG 191 ==
LOC: EDUNIT# → ED 14:46 → MS2 18:05 → ICU 19:41
PROVIDERS: ADMIT Internal Medicine; ATTEND Internal Medicine
DX: J44.1 Chronic obstructive pulmonary disease with (acute) exacerbation (principal); I50.30 Unspecified diastolic (congestive) heart failure; Z68.41 Body mass index [BMI] 40.0-44.9, adult; E66.01 Morbid (severe) obesity due to excess calories; G43.909 Migraine, unspecified, not intractable, without status migrainosus; E86.0 Dehydration; R94.8 Abnormal results of function studies of other organs and systems; F17.210 Nicotine dependence, cigarettes, uncomplicated; J32.0 Chronic maxillary sinusitis; K59.00 Constipation, unspecified; Z87.01 Personal history of pneumonia (recurrent)
CPT/HCPCS: 36415; 36600; 70450; 71010; 80048; 80053; 82310; 82330; 82803; 83036; 83690; 83735; 84100; 84132; 84484; 85025; 87070; 87081; 87205; 93005; 93306; 94640; 94664; 96361; 96365; 96366; 96375; 99285; 99291

== ENCOUNTER 2017-02-21 13:30 | Outpatient (CLI) | payer OTHER, MEDICARE | END 2017-02-21 14:00 | disposition home or self-care (01) | LOC: RT.N 13:30 | PROVIDERS: ATTEND Family Medicine | DX: I50.9 Heart failure, unspecified (principal) | CPT/HCPCS: 93005 ==

== ENCOUNTER 2017-08-29 15:34 | Emergency (ER) | payer OTHER, MEDICARE ==
[2017-08-29 15:42] VITALS: BP 100/55
[2017-08-29] MEDS ORDERED: predniSONE 20 MG TABLET PO STA (15:58)
[2017-08-29] MEDS ORDERED: oxyCOD/ACETAMIN 5 MG/325 MG TABLET PO STA (15:58)
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
== END 2017-08-29 16:11 | disposition home or self-care (01) ==
LOC: ED 15:34
DX: M54.12 Radiculopathy, cervical region (principal); I25.2 Old myocardial infarction; I25.10 Atherosclerotic heart disease of native coronary artery without angina pectoris; J45.909 Unspecified asthma, uncomplicated; Z87.891 Personal history of nicotine dependence
CPT/HCPCS: 99283; A9270; J7512

== ENCOUNTER 2017-09-09 20:23 | Outpatient (CLI) | payer OTHER, MEDICARE | END 2017-09-09 20:24 | disposition critical access hospital (66) | LOC: EMS 20:23 | PROVIDERS: ATTEND Surgery | DX: R06.02 Shortness of breath (principal); R04.2 Hemoptysis | CPT/HCPCS: A0425; A0427 ==

== ENCOUNTER 2017-09-09 20:42 | Inpatient (IN) | payer OTHER, MEDICARE ==
[2017-09-09] MEDS ORDERED: TERBUTALINE 1 MG/ML VIAL SUBQ STA (20:50)
[2017-09-09] MEDS ORDERED: MAGNESIUM SULFATE 2 GRAM 2 GM/50 ML BAG IV ONE (20:50)
[2017-09-09] MEDS: ALBUTEROL NEB 2.5 MG/3 ML INH STA ×2 (20:52→21:16)
[2017-09-09] MEDS ORDERED: ALBUTEROL NEB 2.5 MG/3 ML INH ONE (20:59)
[2017-09-09] MEDS ORDERED: TERBUTALINE 1 MG/ML VIAL SUBQ ONE (21:13)
[2017-09-09 21:14] LABS: BASOPHILS # (AUTO) 0.1 10^3/uL (0.0-0.1); BASOPHILS % (AUTO) 0.7 %; EOSINOPHILS # (AUTO) 0.3 10^3/uL (0.0-0.7); EOSINOPHILS % (AUTO) 1.4 %; HGB - HEMOGLOBIN 16.2 g/dL (12.0-16.0); LYMPHOCYTES % (AUTO) 15.7 %; MEAN CORPUSCULAR HEMOGLOBIN 31.9 pg (27.0-31.0); MEAN CORPUSCULAR HGB CONC 33.5 g/dL (32.0-36.0); MEAN PLATELET VOLUME 8.5 fL (7.9-10.8); MONOCYTES # (AUTO) 1.2 10^3/uL (0.0-1.0); MONOCYTES % (AUTO) 6.3 %; NEUTROPHILS # (AUTO) 14.6 10^3/uL (1.5-6.6); NEUTROPHILS % (AUTO) 75.9 %; PLT - PLATELET COUNT 238 10^3/uL (130-450); RED BLOOD COUNT 5.08 10^6/uL (4.20-5.40); RED CELL DISTRIBUTION WIDTH 14.2 % (12.0-15.0); WHITE BLOOD COUNT 19.3 x10^3/uL (4.8-10.8)
--- NOTE | 2017-09-09 21:21 | ED Physician Documentation ---
PD HPI DYSPNEA - Stated complaint Stated Complaint: SOA - Chief complaint Chief Complaint: Resp - History obtained from History obtained from: Patient, EMS - History of Present Illness Timing - onset: Yesterday Timing - details: Gradual onset, Still present Inciting event(s): URI Improved by: O2, Inhaler/neb Associated symptoms: Cough, Wheezing Similar symptoms before: Work up / diagnostics, Treatment Recently seen: Not recently seen - Additional information Additional information: Patient is a 52 year old female with a history of morbid obesity, copd with multiple admissions for copd who is presenting to the emergency department for shortness of breath. according to patient and ems the symptoms have been going on for the last few days. patient has been using her inhaler with little relief. Review of Systems Constitutional: denies: Fever, Chills Ears: reports: Reviewed and negative Nose: reports: Reviewed and negative Throat: reports: Reviewed and negative Cardiac: denies: Chest pain / pressure, Pedal edema Respiratory: reports: Dyspnea, Cough, Wheezing GI: denies: Nausea, Vomiting Musculoskeletal: denies: Neck pain, Back pain Neurologic: reports: Reviewed and negative Immunocompromised: denies: Immunocompromised PD PAST MEDICAL HISTORY - Past Medical History Cardiovascular: Coronary artery disease, [place] Respiratory: Asthma, Pneumonia, Shortness of breath, Sleep apnea, Other Neuro: Headache/migraine, Head injury Endocrine/Autoimmune: None GI: GERD 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 HEENT: Other Psych: Depression, Claustrophobia Musculoskeletal: Osteoarthritis, Chronic back pain Derm: None - Past Surgical History Past Surgical History: Yes General: Cholecystectomy, EGD Ortho: Knee replacement /LANDSCAPE ACCOUNT MANAGER: Hysterectomy, Other Cardiovascular: Cardiac catheterization HEENT: Rhinoplasty - Present Medications Home Medications: Ambulatory Orders Medication Instructions Recorded Confirmed Lisinopril [Zestril] 5 mg PO DAILY #30 tablet 02/15/17 Spironolactone [Aldactone] 25 mg PO DAILY #30 tablet 02/15/17 Oxycodone HCl/Acetaminophen 1 - 2 tab PO Q4H PRN #15 tablet 08/29/17 [Percocet 5-325 mg Tablet] Physical Therapy 1 unit TD ONCE #1 08/29/17 predniSONE [Deltasone] 60 mg PO DAILY 5 Days tablet 08/29/17 - Allergies Allergies/Adverse Reactions: Allergies Allergy/AdvReac Type Severity Reaction Status Date / Time codeine [Codeine] Allergy Severe Swelling/Hi Verified 08/29/17 15:42 ves erythromycin base Allergy Severe Anaphylaxis Verified 08/29/17 15:42 [Erythromycin Base] gabapentin Allergy Severe Anaphylaxis Verified 08/29/17 15:42 Latex, Natural Rubber Allergy Severe Blisters Verified 08/29/17 15:42 pamabrom [From Midol] Allergy Severe Respiratory Verified 08/29/17 15:42 pyrilamine maleate * Allergy Severe Respiratory Verified 08/29/17 15:42 [From Midol] shellfish derived Allergy Severe Anaphylaxis Verified 08/29/17 15:42 venom-honey bee Allergy Severe Anaphylaxis Verified 08/29/17 15:42 [bee venom (honey bee)] chlorhexidine Allergy Intermediate Rash Verified 08/29/17 15:42 ondansetron Allergy Respiratory Verified 08/29/17 15:42 CLR AdvReac Severe Respiratory Uncoded 12/24/15 12:14 - Social History Does the pt smoke?: No Smoking Status: Never smoker Does the pt drink ETOH?: Yes Does the pt have substance abuse?: No - Immunizations Immunizations are current?: No Immunizations: Other immun not current - POLST Patient has POLST: No PD ED PE NORMAL - General General: Alert and oriented X 3 - HEENT HEENT: Atraumatic - Neck Neck: No JVD - Abdomen Abdomen: Non distended - Derm Derm: Normal color, No rash - Neuro Neuro: Alert and oriented X 3, No motor deficit Eye Opening: Spontaneous PD ED PE EXPANDED - General General: Alert, Disheveled, poorly kept, In distress - Cardiac Cardiac: Tachy - Respiratory Respiratory: Labored, Accessory mm use, Wheezing, Rhonchi, Right upper lobe, Right middle lobe, Right lower lobe, Left upper lobe, Left lower lobe Results - Vitals Vitals: Vital Signs - 24 hr 09/09/17 09/09/17 09/09/17 20:45 21:04 21:05 Temperature 36.3 C L Heart Rate 114 H 99 Respiratory 48 H 18 32 H Rate Blood Pressure 139/76 H O2 Saturation 99 96 09/09/17 09/09/17 09/09/17 21:09 21:19 21:25 Temperature Heart Rate 98 94 100 Respiratory 36 H 18 18 Rate Blood Pressure 111/39 L 111/39 L O2 Saturation 97 96 09/09/17 09/09/17 09/09/17 21:40 21:41 21:48 Temperature 36.7 C Heart Rate 115 H 105 H Respiratory 30 H Rate Blood Pressure 97/58 L 168/81 H O2 Saturation 93 Oxygen O2 Source [With Activity] Room air O2 Source Simple Mask Oxygen Flow Rate 2 - EKG (time done) 2103 Rate: Rate (enter#) (97) Rhythm: NSR [place]: Normal Intervals: Normal AR QRS: LVH Ischemia: Q waves Compare to prior EKG: Unchanged from prior EKG, Other (multiple pvcs) - Labs Labs: Laboratory Tests 09/09/17 09/09/17 09/09/17 21:04 21:04 21:04 WBC 19.3 H RBC 5.08 Hgb 16.2 H Hct 48.2 H MCV 95.0 MCH 31.9 H MCHC 33.5 RDW 14.2 Plt Count 238 MPV 8.5 Neut # 14.6 H Lymph # 3.0 Mora # 1.2 H Eos # 0.3 Baso # 0.1 Absolute Nucleated RBC 0.01 Nucleated RBC % 0.0 Sodium 140 Potassium 3.7 Chloride 103 Carbon Dioxide 28 Anion Gap 9.0 BUN 17 Creatinine 0.7 Estimated GFR (MDRD) 87 L Glucose 131 H Calcium 9.2 Total Bilirubin 0.4 AST 18 ALT 27 Alkaline Phosphatase 99 Troponin I < 0.04 B-Natriuretic Peptide Total Protein 7.4 Albumin 4.0 Globulin 3.4 Albumin/Globulin Ratio 1.2 Lipase 33 09/09/17 21:04 WBC RBC Hgb Hct MCV MCH MCHC RDW Plt Count MPV Neut # Lymph # Mora # Eos # Baso # Absolute Nucleated RBC Nucleated RBC % Sodium Potassium Chloride Carbon Dioxide Anion Gap BUN Creatinine Estimated GFR (MDRD) Glucose Calcium Total Bilirubin AST ALT Alkaline Phosphatase Troponin I B-Natriuretic Peptide 25 Total Protein Albumin Globulin Albumin/Globulin Ratio Lipase - Rads (name of study) chest x-ray Radiology: Final report received (no acute edema or infiltrate) PD MEDICAL DECISION MAKING - ED course Complexity details: reviewed old records, reviewed results, re-evaluated patient , considered differential, d/w patient, d/w applications consultant ED course: Patient was seen and examined. patient was short of breath with accessory muscle use. patient had received duonebs, as well has 5mg of albuterol and solumedrol in the field. patient was placed on another 5mg of albuterol, magnesium and terbutaline. ekg was performed and showed no acute ischemic changes. chest x-ray was performed and showed no acute infiltrate. patient's breathing's improved slightly but patient required prolonged care. Hospitalist was contacted and case was discussed with her. patient was admitted for further evaluation and care. - Critical Care Time(min): 30 Time Includes: Direct patient care Data interpretation: Labs, Pulse ox, CXR, Prior EKG, Cardiac output Departure - Departure Disposition: 66 [facility] DC/Xfer Clinical Impression: COPD with acute exacerbation, Hypoxia Condition: Stable
--- NOTE | 2017-09-09 21:23 | XRAY Report ---
EXAM: CHEST RADIOGRAPHY EXAM DATE: 09/09/2017 09:04 PM. CLINICAL HISTORY: Cough and shortness of breath COMPARISON: 07/26/2015. TECHNIQUE: 1 view. FINDINGS: Lungs/Pleura: No focal consolidation or evidence of edema. No pleural effusion or pneumothorax. Mediastinum: Normal cardiomediastinal contour. Other: Midthoracic spine DISH. IMPRESSION: No acute cardiopulmonary abnormality. [facility] Referring Provider Line: [phone] SITE ID: [id number]
--- NOTE | 2017-09-09 21:23 | XRAY Preliminary Report ---
Exam: XR CHEST 1 VIEW X-RAY IMPRESSION: No acute cardiopulmonary abnormality. [facility] SITE ID: [id number]
[2017-09-09 21:25] LABS: ALBUMIN/GLOBULIN RATIO 1.2 (1.0-2.2); BILIRUBIN,TOTAL 0.4 mg/dL (0.2-1.0); CALCIUM 9.2 mg/dL (8.5-10.3); CREATININE 0.7 mg/dL (0.4-1.0); TOTAL PROTEIN 7.4 g/dL (6.7-8.2)
[2017-09-09] MEDS ORDERED: PROCHLORPERAZINE 10 MG/2 ML VIAL IVP PRN (22:19)
[2017-09-09] MEDS ORDERED: [UNRECOGNIZED DRUG - REMARK] TD SCH (22:30)
--- NOTE | 2017-09-09 22:38 | HISTORY & PHYSICAL EXAMINATION ---
Chief Complaint - Chief Complaint Chief Complaint: shortness of breath, hemoptysis History of Present Illness - Admitted From Admitted From:: home - History Obtained From History obtained from: patient, ED physician - History of Present Illness HPI Comment/Other: Mrs. Ester Benavides is a very pleasant 52-year-old female with a history of COPD who has been having increasing shortness of breath for the last 3-4 days. She came to the emergency department at [facility] when she began experiencing hemoptysis this morning. Upon admission to the emergency department the patient was found to have oxygen saturation in the 70s on room air; this was brought up to 89% on room air following a couple of treatments however the patient remained severely tachypneic and weak and unable to care for herself so she will be admitted to the hospital for an acute exacerbation of COPD. Of note is that the patient relates that she ran out of her cardiac medications 2-3 days ago because her former primary care provider no longer takes her insurance and she ran out of her prescriptions, however a BNP on admission was 25 and the chest x-ray did not show any signs of vascular congestion. She will need to be set up with a new primary care provider on discharge who accepts her insurance. History - Past Medical History Cardiovascular: reports: Coronary artery disease, [place] Respiratory: reports: Asthma, Emphysema, Pneumonia, Shortness of breath, Sleep apnea, Other Neuro: reports: Headache/migraine, Head injury Endocrine/Autoimmune: reports: None GI: reports: GERD SPARE HAND: reports: Ectopic : reports: None HEENT: reports: Other Psych: reports: Depression, Claustrophobia Musculoskeletal: reports: Osteoarthritis, Chronic back pain Derm: reports: None MRSA Hx?: No - Past Surgical History General: reports: Cholecystectomy, EGD Ortho: reports: Knee replacement /SPARE HAND: reports: Hysterectomy, Other Cardiovascular: reports: Cardiac catheterization HEENT: reports: Rhinoplasty - Family & Social History Family History: Mother: Alive and Well, Alzheimer's Disease, Hyperlipidemia, Hypertension, Father: , Cancer, Other family: CVA/TIA, Diabetes, Type 1 , [place] Living arrangement: At home Living Situation: With spouse/s.o. - Substance History Use: Uses substance without health or social issues: NONE Abuse: Recurrent use of substance despite neg consequences: NONE Dependence: Experiences withdrawal or developed tolerances: NONE Tobacco Details: Other (Patient quit smoking 6 months ago.) - POLST Patient has POLST: No POLST Status: Full Code Meds/Allgy - Home Medications Home Medications: Ambulatory Orders Medication Instructions Recorded Confirmed Lisinopril [Zestril] 5 mg PO DAILY #30 tablet 02/15/17 Spironolactone [Aldactone] 25 mg PO DAILY #30 tablet 02/15/17 Oxycodone HCl/Acetaminophen 1 - 2 tab PO Q4H PRN #15 tablet 08/29/17 [Percocet 5-325 mg Tablet] Physical Therapy 1 unit TD ONCE #1 08/29/17 predniSONE [Deltasone] 60 mg PO DAILY 5 Days tablet 08/29/17 - Allergies Allergies/Adverse Reactions: Allergies Allergy/AdvReac Type Severity Reaction Status Date / Time codeine [Codeine] Allergy Severe Swelling/Hi Verified 08/29/17 15:42 ves erythromycin base Allergy Severe Anaphylaxis Verified 08/29/17 15:42 [Erythromycin Base] gabapentin Allergy Severe Anaphylaxis Verified 08/29/17 15:42 Latex, Natural Rubber Allergy Severe Blisters Verified 08/29/17 15:42 pamabrom [From Midol] Allergy Severe Respiratory Verified 08/29/17 15:42 pyrilamine maleate * Allergy Severe Respiratory Verified 08/29/17 15:42 [From Midol] shellfish derived Allergy Severe Anaphylaxis Verified 08/29/17 15:42 venom-honey bee Allergy Severe Anaphylaxis Verified 08/29/17 15:42 [bee venom (honey bee)] chlorhexidine Allergy Intermediate Rash Verified 08/29/17 15:42 ondansetron Allergy Respiratory Verified 08/29/17 15:42 CLR AdvReac Severe Respiratory Uncoded 12/24/15 12:14 Review of Systems - Constitutional Constitutional: reports: Fatigue, Weakness. denies: Fever, Chills, Malaise, Night sweats - Eyes Eyes: denies: Pain, Blurred vision, Vision loss, Dipolpia - Ears, Nose & Throat Ears, Nose & Throat: denies: Ear pain, Hearing aids, Tinnitus, Vertigo, Nasal pain, Nosebleeds - Cardiovascular Cariovascular: reports: Edema. denies: Irregular heart rate, Palpitations, Chest pain, Syncope - Respiratory Respiratory: reports: Cough, Hemoptysis, Orthopnea, SOB at rest, SOB with exertion - Gastrointestinal Gastrointestinal: denies: Abdominal pain, Constipation, Diarrhea, Rectal bleeding, Nausea, Vomiting, Bari blood emesis - Genitourinary Genitourinary: denies: Dysuria, Frequency, Hematuria - Musculoskeletal Musculoskeletal: denies: Muscle pain, Back pain, Muscle aches, Stiffness - Integumentary Integumentary: denies: Rash, Pruritis, Lesions, Dryness - Neurological Neurological: reports: General weakness. denies: Focal weakness, Headache, Dizziness - Psychiatric Psychiatric: denies: Depression, Anxiety, Suicidal, Hallucinations - Endocrine Endocrine: denies: Polyuria, Polydypsia, Polyphagia - Hematologic/Lymphatic Hematologic/Lymphatic: denies: Anemia, Bruising, Petechiae, Lymphadenopathy - All Other Systems All Other Systems: reports: Reviewed and negative Exam - Vital Signs Reviewed Vital Signs: Yes Vital Signs: Vital Signs x48h Temp Pulse Resp BP Pulse Ox 09/09/17 22:17 16 95 09/09/17 22:08 21 96 09/09/17 21:58 32 H 94 09/09/17 21:48 105 H 168/81 H 09/09/17 21:41 36.7 C 09/09/17 21:40 115 H 30 H 97/58 L 93 09/09/17 21:25 100 18 111/39 L 96 09/09/17 21:19 94 18 09/09/17 21:09 98 36 H 111/39 L 97 09/09/17 21:05 99 32 H 09/09/17 21:04 18 96 09/09/17 20:45 36.3 C L 114 H 48 H 139/76 H 99 - Physical Exam General Appearance: positive: Alert, Mild distress, Anxious Eyes Bilateral: positive: Normal inspection, PERRL, EOMI, No lid inflammation, Conjunctivae nml, No scleral icterus ENT: positive: ENT inspection nml, Pharynx nml, No signs of dehydration Neck: positive: Nml inspection, Thyroid nml, No JVD, Trachea midline. negative : Thyromegaly Respiratory: positive: Chest non-tender, Other (Breath sounds diminished in all mathews, patient is tachypneic with respiratory rate in the 30s). negative: Wheezes, Rales, Rhonchi Cardiovascular: positive: Regular rate & rhythm, No murmur, No gallop Peripheral Pulses: positive: 1+ Abdomen: positive: Non-tender, No organomegaly, Nml bowel sounds, No distention. negative: Guarding, Rebound, Hepatomegaly, Splenomegaly, Mass Back: positive: Nml inspection. negative: CVA tenderness (R), CVA tenderness (L ) Skin: positive: Color nml, No rash, Warm, Dry. negative: Cyanosis Extremities: positive: Non-tender, Full ROM, Nml appearance, No pedal edema Neurologic/Psychiatric: positive: Oriented x3, CN's nml (2-12), Motor nml, Sensation nml, Mood/affect nml Conclusion/Plan - Problem List (1) COPD with acute exacerbation Conclusion/Plan: We will admit the patient to medical surgical bed and give her [id number] nebulizer treatments as well as steroids. Although the patient stopped taking her Spironolactone 3 days ago at the onset of this exacerbation, this does not appear to be related as the patient's BNP is not elevated and her chest x-ray shows no signs of vascular congestion. We will therefore treat this as a pure exacerbation of her COPD but will monitor her fluid status while she is inpatient. We will restart her on her home CPAP for obstructive sleep apnea which will likely also help her respiratory status as well. (2) Hypertension Conclusion/Plan: We will restart the patient on her spironolactone and lisinopril which he has not had for several days. If necessary we will add a third blood pressure medication. (3) Obstructive sleep apnea hypopnea, moderate Conclusion/Plan: We will start the patient on a CPAP at night and if possible we will asked the patient to bring in her home mask as this typically fits better than the generic one from the hospital. - Lab Results Fish Bones: 09/09/17 21:04 09/09/17 21:04 - Diagnostic Imaging Results Diagnostic Imaging Results: positive: Final report reviewed Diagnostic Imaging Results Comments: EXAM: CHEST RADIOGRAPHY EXAM DATE: 09/09/2017 09:04 PM. CLINICAL HISTORY: Cough and shortness of breath COMPARISON: 07/26/2015. TECHNIQUE: 1 view. FINDINGS: Lungs/Pleura: No focal consolidation or evidence of edema. No pleural effusion or pneumothorax. Mediastinum: Normal cardiomediastinal contour. Other: Midthoracic spine DISH. IMPRESSION: No acute cardiopulmonary abnormality. Core Measures - Anticipated LOS I expect patient to be DC'd or transferred within 96 hours.: Yes - DVT/VTE - Prophylaxis VTE/DVT Device ordered at admit?: Yes
[2017-09-10] MEDS: D5.45NS W/20 MEQ KCL 1,000 ML IV SCH ×2 (00:19→13:11)
[2017-09-10] MEDS: SODIUM CHLORIDE FLUSH 0.9% 10 ML SYRINGE IVP SCH ×3 (00:19→16:41)
[2017-09-10] MEDS: LORazepam 2 MG/ML VIAL IVP PRN ×4 (03:32→19:29)
[2017-09-10] MEDS ORDERED: IPRATROPIUM/ALBUTEROL 3 ML NEB INH ONE (03:56)
[2017-09-10] MEDS ORDERED: PHENOL THROAT SPRAY 177 ML MM PRN (03:58)
[2017-09-10] MEDS ORDERED: DEXAMETHASONE 10 MG/ML VIAL IVP SCH (06:00)
[2017-09-10] MEDS: SODIUM CHLORIDE FLUSH 0.9% 10 ML SYRINGE IVP PRN (06:36)
[2017-09-10 06:50] LABS: HGB - HEMOGLOBIN 14.9 g/dL (12.0-16.0); MEAN CORPUSCULAR HEMOGLOBIN 31.4 pg (27.0-31.0); MEAN CORPUSCULAR HGB CONC 32.7 g/dL (32.0-36.0); MEAN CORPUSCULAR VOLUME 96.3 fL (81.0-99.0); MEAN PLATELET VOLUME 8.3 fL (7.9-10.8); RED BLOOD COUNT 4.74 10^6/uL (4.20-5.40); RED CELL DISTRIBUTION WIDTH 14.1 % (12.0-15.0)
[2017-09-10 07:05] LABS: CREATININE 0.8 mg/dL (0.4-1.0)
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
[2017-09-10] MEDS: POLYETHYLENE GLYCOL 3350 17 GM PACKET PO SCH (08:53)
[2017-09-10] MEDS ORDERED: predniSONE 20 MG TABLET PO SCH (09:00)
[2017-09-10] MEDS: methylPREDNISolone SUCCINATE 125 MG/2 ML VIAL IVP SCH ×3 (09:01→21:43)
[2017-09-10] MEDS: FAMOTIDINE 20 MG TABLET PO SCH (09:02)
[2017-09-10] MEDS: SPIRONOLACTONE 25 MG TABLET PO SCH (09:02)
[2017-09-10] MEDS: LISINOPRIL 5 MG TABLET PO SCH (09:02)
[2017-09-10] MEDS: guaiFENesin 600 MG TABLET PO SCH ×2 (09:02→21:43)
[2017-09-10] MEDS: MAGNESIUM OXIDE 400 MG TABLET PO SCH ×2 (09:02→21:44)
[2017-09-10] MEDS: MORPHINE 2 MG/ML SYRINGE IVP PRN ×2 (09:05→20:05)
[2017-09-10] MEDS: PIPERACILLIN/TAZOBACTAM 4.5 GM in SODIUM CHLORIDE 0.9% MINIBAG 100 ML IV SCH ×2 (09:09→14:53)
[2017-09-10 09:44] LABS: ABG HCO3 23.3 mmol/L (22.0-26.0); ABG PCO2 45 mmHg (34-45); ABG PH 7.33 (7.35-7.45); ABG PO2 74 mmHg (80-100); ABG TCO2 24.7 MMOL/L (21.0-29.0)
[2017-09-10 09:45] LABS: ABG BASE EXCESS -2.8 mmol/L (-2.0-3.0); ABG OXYGEN SATURATION 95 % (94-98); ALLEN TEST POSITIVE
[2017-09-10] MEDS: IPRATROPIUM/ALBUTEROL 3 ML NEB INH SCH ×4 (12:45→19:19)
[2017-09-10] MEDS: BUDESONIDE 0.5 MG/2 ML NEB INH SCH ×2 (12:45→19:18)
[2017-09-10] MEDS: FUROSEMIDE 20 MG/2 ML VIAL IVP SCH (14:15)
[2017-09-10] MEDS ORDERED: diphenhydrAMINE 25 MG CAPSULE PO SCH (16:18)
[2017-09-10] MEDS: BENZOCAINE/MENTHOL LOZENGE MM PRN (16:33)
[2017-09-10] MEDS: levoFLOXacin 750 MG/150 ML 750 MG/150 ML BAG IV SCH (16:33)
[2017-09-10] MEDS ORDERED: SODIUM CHLORIDE 0.65% NASAL SPRAY NAS PRN (19:27)
[2017-09-10] MEDS: OXYMETAZOLINE NASAL SPRAY NAS SCH (19:44)
[2017-09-10] MEDS ORDERED: TRIAMCINOLONE 55 MCG NASAL SPRAY NAS SCH (20:00)
[2017-09-10] MEDS: TEMAZEPAM 15 MG CAPSULE PO PRN (21:43)
[2017-09-11] MEDS: MORPHINE 2 MG/ML SYRINGE IVP PRN ×6 (01:04→19:37)
[2017-09-11] MEDS: SODIUM CHLORIDE FLUSH 0.9% 10 ML SYRINGE IVP SCH ×3 (01:06→15:31)
[2017-09-11] MEDS: IPRATROPIUM/ALBUTEROL 3 ML NEB INH PRN (01:10)
[2017-09-11] MEDS: LORazepam 2 MG/ML VIAL IVP PRN ×3 (01:16→21:17)
[2017-09-11] MEDS: SODIUM CHLORIDE FLUSH 0.9% 10 ML SYRINGE IVP PRN ×3 (01:16→18:22)
[2017-09-11] MEDS: D5.45NS W/20 MEQ KCL 1,000 ML IV SCH ×2 (04:02→15:30)
[2017-09-11 05:24] LABS: HGB - HEMOGLOBIN 14.6 g/dL (12.0-16.0); MEAN CORPUSCULAR HEMOGLOBIN 30.9 pg (27.0-31.0); MEAN CORPUSCULAR VOLUME 96.5 fL (81.0-99.0); MEAN PLATELET VOLUME 8.1 fL (7.9-10.8); RED BLOOD COUNT 4.75 10^6/uL (4.20-5.40); RED CELL DISTRIBUTION WIDTH 14.3 % (12.0-15.0); WHITE BLOOD COUNT 19.1 x10^3/uL (4.8-10.8)
[2017-09-11 05:33] LABS: CALCIUM 9.3 mg/dL (8.5-10.3); CREATININE 0.8 mg/dL (0.4-1.0)
[2017-09-11] MEDS: methylPREDNISolone SUCCINATE 125 MG/2 ML VIAL IVP SCH ×3 (05:58→21:18)
[2017-09-11] MEDS: IPRATROPIUM/ALBUTEROL 3 ML NEB INH SCH ×4 (07:18→20:30)
[2017-09-11] MEDS: BUDESONIDE 0.5 MG/2 ML NEB INH SCH ×2 (07:18→20:30)
[2017-09-11] MEDS: POLYETHYLENE GLYCOL 3350 17 GM PACKET PO SCH (07:58)
[2017-09-11] MEDS: guaiFENesin 600 MG TABLET PO SCH ×2 (08:23→21:18)
[2017-09-11] MEDS: FAMOTIDINE 20 MG TABLET PO SCH (08:23)
[2017-09-11] MEDS: LISINOPRIL 5 MG TABLET PO SCH (08:23)
[2017-09-11] MEDS: SPIRONOLACTONE 25 MG TABLET PO SCH (08:23)
[2017-09-11] MEDS: MAGNESIUM OXIDE 400 MG TABLET PO SCH ×2 (08:23→21:18)
[2017-09-11] MEDS: FUROSEMIDE 20 MG/2 ML VIAL IVP SCH (08:24)
[2017-09-11] MEDS: FLUTICASONE NASAL SPRAY NAS SCH (08:27)
[2017-09-11] MEDS: OXYMETAZOLINE NASAL SPRAY NAS SCH ×2 (08:27→21:19)
[2017-09-11] MEDS: levoFLOXacin 750 MG/150 ML 750 MG/150 ML BAG IV SCH (15:30)
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
[2017-09-11] MEDS ORDERED: INSULIN ASPART 300 UNIT/3 ML PEN SUBQ SCH (17:00)
[2017-09-11] MEDS ORDERED: INSULIN GLARGINE 300 UNIT/3 ML PEN SUBQ SCH (21:00)
[2017-09-12] MEDS: oxyCOD/ACETAMIN 5 MG/325 MG TABLET PO PRN (00:12)
[2017-09-12] MEDS: MORPHINE 2 MG/ML SYRINGE IVP PRN ×4 (00:13→22:32)
[2017-09-12] MEDS: SODIUM CHLORIDE FLUSH 0.9% 10 ML SYRINGE IVP SCH ×3 (00:13→15:53)
[2017-09-12] MEDS: IPRATROPIUM/ALBUTEROL 3 ML NEB INH PRN (03:11)
[2017-09-12] MEDS: methylPREDNISolone SUCCINATE 125 MG/2 ML VIAL IVP SCH ×3 (05:38→21:09)
[2017-09-12] MEDS: SODIUM CHLORIDE FLUSH 0.9% 10 ML SYRINGE IVP PRN ×6 (05:39→22:33)
[2017-09-12 06:03] LABS: HGB - HEMOGLOBIN 14.5 g/dL (12.0-16.0); MEAN CORPUSCULAR HEMOGLOBIN 31.2 pg (27.0-31.0); MEAN CORPUSCULAR VOLUME 97.4 fL (81.0-99.0); MEAN PLATELET VOLUME 8.2 fL (7.9-10.8); RED BLOOD COUNT 4.65 10^6/uL (4.20-5.40); RED CELL DISTRIBUTION WIDTH 14.5 % (12.0-15.0); WHITE BLOOD COUNT 17.5 x10^3/uL (4.8-10.8)
[2017-09-12 06:14] LABS: ALBUMIN 3.3 g/dL (3.2-5.5); ALBUMIN/GLOBULIN RATIO 1.1 (1.0-2.2); ALKALINE PHOSPHATASE 70 IU/L (42-121); ALT ALANINE AMINOTRANSFERASE 23 IU/L (10-60); AST ASPARTATE AMINOTRANSFERASE 20 IU/L (10-42); BILIRUBIN,TOTAL < 0.2 mg/dL (0.2-1.0); BUN - BLOOD UREA NITROGEN 17 mg/dL (6-20); CALCIUM 9.3 mg/dL (8.5-10.3); CARBON DIOXIDE - CO2 30 mmol/L (21-32); CHLORIDE 100 mmol/L (101-111); CREATININE 0.7 mg/dL (0.4-1.0); GFR - MDRD 87 (>89); GLUCOSE 188 mg/dL (70-100); SODIUM 137 mmol/L (135-145); TOTAL PROTEIN 6.3 g/dL (6.7-8.2)
[2017-09-12 06:27] LABS: HB2 TOTAL 16.7 g/dL; HEMOGLOBIN A1C 0.78 g/dL; HEMOGLOBIN A1C % 6.4 % (4.6-6.2)
[2017-09-12] MEDS: LORazepam 2 MG/ML VIAL IVP PRN ×3 (06:33→20:59)
[2017-09-12] MEDS: BUDESONIDE 0.5 MG/2 ML NEB INH SCH ×2 (08:04→16:50)
[2017-09-12] MEDS: FUROSEMIDE 20 MG/2 ML VIAL IVP SCH (08:09)
[2017-09-12] MEDS: FAMOTIDINE 20 MG TABLET PO SCH (08:10)
[2017-09-12] MEDS: MAGNESIUM OXIDE 400 MG TABLET PO SCH ×2 (08:10→20:58)
[2017-09-12] MEDS: guaiFENesin 600 MG TABLET PO SCH ×2 (08:10→20:58)
[2017-09-12] MEDS: POLYETHYLENE GLYCOL 3350 17 GM PACKET PO SCH (08:10)
[2017-09-12] MEDS: LISINOPRIL 5 MG TABLET PO SCH (08:10)
[2017-09-12] MEDS: SPIRONOLACTONE 25 MG TABLET PO SCH (08:10)
[2017-09-12] MEDS: FLUTICASONE NASAL SPRAY NAS SCH (08:14)
[2017-09-12] MEDS: OXYMETAZOLINE NASAL SPRAY NAS SCH ×2 (08:15→21:12)
[2017-09-12] MEDS: IPRATROPIUM/ALBUTEROL 3 ML NEB INH SCH ×4 (08:18→20:20)
--- NOTE | 2017-09-12 10:29 | XRAY Report ---
FRONTAL CHEST: 09/12/2017 CLINICAL INDICATION: Shortness of breath. COMPARISON: 09/09/2017. FINDINGS: Frontal view of the chest demonstrates a normal cardiac silhouette. There is a developing right basilar infiltrate present. No effusion or pneumothorax is present. IMPRESSION: DEVELOPING RIGHT BASILAR INFILTRATE. TD: 09/12/2017 10:28
[2017-09-12 11:16] LABS: ABG HCO3 29.9 mmol/L (22.0-26.0); ABG PCO2 51 mmHg (34-45); ABG PH 7.39 (7.35-7.45); ABG PO2 71 mmHg (80-100); ABG TCO2 31.5 MMOL/L (21.0-29.0)
[2017-09-12 11:17] LABS: ABG BASE EXCESS 3.7 mmol/L (-2.0-3.0); ABG OXYGEN SATURATION 95 % (94-98); ALLEN TEST POSITIVE
[2017-09-12] MEDS: CALCIUM CARBONATE CHEW 500 MG TABLET PO SCH ×2 (11:55→20:58)
[2017-09-12] MEDS ORDERED: VANCOMYCIN PER PHARMACY 1.5 GM in SODIUM CHLORIDE 0.9% 250 ML IV SCH (14:00)
[2017-09-12] MEDS: CHOLECALCIFEROL 1,000 UNIT TABLET PO SCH (14:09)
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
[2017-09-12] MEDS: levoFLOXacin 750 MG/150 ML 750 MG/150 ML BAG IV SCH (15:53)
[2017-09-12] MEDS: VANCOMYCIN INJ 1.5 GM in SODIUM CHLORIDE 0.9% 500 ML IV SCH (17:32)
[2017-09-13] MEDS: SODIUM CHLORIDE FLUSH 0.9% 10 ML SYRINGE IVP SCH ×4 (00:37→23:53)
[2017-09-13] MEDS: oxyCOD/ACETAMIN 5 MG/325 MG TABLET PO PRN ×4 (00:42→20:30)
[2017-09-13] MEDS: SODIUM CHLORIDE FLUSH 0.9% 10 ML SYRINGE IVP PRN ×2 (04:51→05:20)
[2017-09-13] MEDS: LORazepam 2 MG/ML VIAL IVP PRN ×3 (04:51→17:48)
[2017-09-13] MEDS: methylPREDNISolone SUCCINATE 125 MG/2 ML VIAL IVP SCH ×3 (05:19→21:22)
[2017-09-13] MEDS: VANCOMYCIN INJ 1.5 GM in SODIUM CHLORIDE 0.9% 500 ML IV SCH ×2 (05:20→17:10)
[2017-09-13 05:35] LABS: HGB - HEMOGLOBIN 14.6 g/dL (12.0-16.0); MEAN CORPUSCULAR HEMOGLOBIN 31.2 pg (27.0-31.0); MEAN CORPUSCULAR HGB CONC 32.3 g/dL (32.0-36.0); MEAN CORPUSCULAR VOLUME 96.5 fL (81.0-99.0); MEAN PLATELET VOLUME 8.3 fL (7.9-10.8); RED BLOOD COUNT 4.68 10^6/uL (4.20-5.40); RED CELL DISTRIBUTION WIDTH 14.2 % (12.0-15.0); WHITE BLOOD COUNT 15.7 x10^3/uL (4.8-10.8)
[2017-09-13 05:44] LABS: ALBUMIN 3.4 g/dL (3.2-5.5); ALBUMIN/GLOBULIN RATIO 1.2 (1.0-2.2); BILIRUBIN,TOTAL 0.4 mg/dL (0.2-1.0); CALCIUM 9.4 mg/dL (8.5-10.3); CREATININE 0.7 mg/dL (0.4-1.0); TOTAL PROTEIN 6.2 g/dL (6.7-8.2)
[2017-09-13] MEDS ORDERED: VANCOMYCIN 1 GM VIAL ONE (06:00)
[2017-09-13] MEDS ORDERED: SODIUM CHLORIDE 0.9% 500 ML IV ONE (06:03)
[2017-09-13] MEDS: IPRATROPIUM/ALBUTEROL 3 ML NEB INH SCH ×4 (07:22→19:17)
[2017-09-13] MEDS: BUDESONIDE 0.5 MG/2 ML NEB INH SCH ×2 (07:22→19:17)
[2017-09-13] MEDS: MAGNESIUM OXIDE 400 MG TABLET PO SCH ×2 (08:58→20:30)
[2017-09-13] MEDS: FAMOTIDINE 20 MG TABLET PO SCH (08:58)
[2017-09-13] MEDS: LISINOPRIL 5 MG TABLET PO SCH (08:58)
[2017-09-13] MEDS: CHOLECALCIFEROL 1,000 UNIT TABLET PO SCH (08:58)
[2017-09-13] MEDS: SPIRONOLACTONE 25 MG TABLET PO SCH (08:58)
[2017-09-13] MEDS: guaiFENesin 600 MG TABLET PO SCH ×2 (08:58→20:30)
[2017-09-13] MEDS: POLYETHYLENE GLYCOL 3350 17 GM PACKET PO SCH (08:59)
[2017-09-13] MEDS: FUROSEMIDE 20 MG/2 ML VIAL IVP SCH (08:59)
[2017-09-13] MEDS: CALCIUM CARBONATE CHEW 500 MG TABLET PO SCH ×2 (09:00→20:29)
[2017-09-13] MEDS: OXYMETAZOLINE NASAL SPRAY NAS SCH (09:00)
[2017-09-13] MEDS: FLUTICASONE NASAL SPRAY NAS SCH (09:00)
[2017-09-13] MEDS: MORPHINE 2 MG/ML SYRINGE IVP PRN (11:24)
[2017-09-13] MEDS ORDERED: ALBUTEROL NEB 2.5 MG/3 ML INH PRN (11:42)
[2017-09-13 12:06] LABS: VBG PCO2 54.3 mmHg (41-51); VBG PH 7.394 (7.31-7.41)
[2017-09-13] MEDS ORDERED: IOPAMIDOL-300 100 ML VIAL ONE (15:27)
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
[2017-09-13] MEDS ORDERED: IOPAMIDOL-300 100 ML VIAL IVP ONE (17:38)
--- NOTE | 2017-09-13 18:15 | CT Report ---
EXAM: CT ANGIOGRAM CHEST EXAM DATE: 09/13/2017 05:38 PM. CLINICAL HISTORY: Dyspnea COMPARISON: None. TECHNIQUE: Routine helical imaging was performed through the chest in the pulmonary arterial phase. I V Contrast: 80 cc Isovue 300. Reconstructions: Coronal 3-D MIP reconstructions.Sagittal and coronal. In accordance with CT protocol optimization, one or more of the following dose reduction techniques w ere utilized for this exam: automated exposure control, adjustment of mA and/or KV based on patient s ize, or use of iterative reconstructive technique. FINDINGS: Pulmonary Arteries: Diagnostic quality: Adequate through the proximal to mid segmental arteries. Respiratory motion obscu res portions of distal vessels. No evidence for acute or chronic pulmonary emboli. RV/LV is within normal limits. There is no interventricular septal bowing. There is no reflux of cont rast material in the IVC. Lungs/Pleura: No evidence of lobar infiltrate. There is a calcified granuloma within the right latera l chest. Mild mosaic parenchymal pattern on this expiratory series. No pleural effusion. No pneumotho rax. Mediastinum: There is mild cardiomegaly. There are no enlarged axillary, supraclavicular, mediastinal , or hilar lymph nodes. Thoracic Aorta: Unremarkable. Upper Abdomen: Unremarkable. Other: None. IMPRESSION: 1. No evidence of acute pulmonary embolism through the proximal to mid segmental branch level. 2. No evidence of acute consolidation or effusion. 3. No thoracic aortic dissection. 4. There is mild cardiomegaly. 5. Mild mosaic parenchymal pattern within the lungs on this expiratory study could represent air-trap ping secondary to small to medium airway disease. [facility] Referring Provider Line: [phone] SITE ID: [id number]
[2017-09-13] MEDS ORDERED: levoFLOXacin 750 MG/150 ML 750 MG/150 ML BAG IV SCH (20:00)
[2017-09-14] MEDS: MORPHINE 2 MG/ML SYRINGE IVP PRN ×2 (01:07→07:00)
[2017-09-14] MEDS: LORazepam 2 MG/ML VIAL IVP PRN ×2 (01:26→07:02)
[2017-09-14] MEDS: TEMAZEPAM 15 MG CAPSULE PO PRN (01:58)
[2017-09-14 05:31] LABS: HGB - HEMOGLOBIN 14.6 g/dL (12.0-16.0); MEAN CORPUSCULAR HEMOGLOBIN 31.3 pg (27.0-31.0); MEAN CORPUSCULAR HGB CONC 32.7 g/dL (32.0-36.0); MEAN CORPUSCULAR VOLUME 95.8 fL (81.0-99.0); MEAN PLATELET VOLUME 7.9 fL (7.9-10.8); RED BLOOD COUNT 4.65 10^6/uL (4.20-5.40); RED CELL DISTRIBUTION WIDTH 13.9 % (12.0-15.0); WHITE BLOOD COUNT 12.6 x10^3/uL (4.8-10.8)
[2017-09-14 05:40] LABS: ALBUMIN 3.3 g/dL (3.2-5.5); ALBUMIN/GLOBULIN RATIO 1.1 (1.0-2.2); BILIRUBIN,TOTAL 0.5 mg/dL (0.2-1.0); CALCIUM 9.4 mg/dL (8.5-10.3); CREATININE 0.7 mg/dL (0.4-1.0); TOTAL PROTEIN 6.2 g/dL (6.7-8.2)
[2017-09-14] MEDS: methylPREDNISolone SUCCINATE 125 MG/2 ML VIAL IVP SCH ×3 (05:53→21:47)
[2017-09-14] MEDS: SODIUM CHLORIDE FLUSH 0.9% 10 ML SYRINGE IVP PRN ×2 (07:01→21:48)
[2017-09-14] MEDS: IPRATROPIUM/ALBUTEROL 3 ML NEB INH SCH ×4 (07:45→20:06)
[2017-09-14] MEDS: BUDESONIDE 0.5 MG/2 ML NEB INH SCH ×2 (07:45→20:06)
[2017-09-14] MEDS: FAMOTIDINE 20 MG TABLET PO SCH (09:30)
[2017-09-14] MEDS: CALCIUM CARBONATE CHEW 500 MG TABLET PO SCH ×2 (09:30→21:47)
[2017-09-14] MEDS: LISINOPRIL 5 MG TABLET PO SCH (09:30)
[2017-09-14] MEDS: DOCUSATE SODIUM 250 MG CAPSULE PO SCH (09:30)
[2017-09-14] MEDS: FUROSEMIDE 40 MG TABLET PO SCH (09:30)
[2017-09-14] MEDS: guaiFENesin 600 MG TABLET PO SCH ×2 (09:31→21:47)
[2017-09-14] MEDS: MAGNESIUM OXIDE 400 MG TABLET PO SCH ×2 (09:31→21:47)
[2017-09-14] MEDS: SPIRONOLACTONE 25 MG TABLET PO SCH (09:31)
[2017-09-14] MEDS: POLYETHYLENE GLYCOL 3350 17 GM PACKET PO SCH (09:31)
[2017-09-14] MEDS: SENNA 8.6 MG TABLET PO SCH (09:31)
[2017-09-14] MEDS: CHOLECALCIFEROL 1,000 UNIT TABLET PO SCH (09:31)
[2017-09-14] MEDS: SODIUM CHLORIDE FLUSH 0.9% 10 ML SYRINGE IVP SCH ×2 (09:32→18:13)
[2017-09-14] MEDS: FLUTICASONE NASAL SPRAY NAS SCH (11:04)
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
[2017-09-15] MEDS: oxyCOD/ACETAMIN 5 MG/325 MG TABLET PO PRN ×3 (00:16→07:43)
[2017-09-15] MEDS: TEMAZEPAM 15 MG CAPSULE PO PRN (00:16)
[2017-09-15] MEDS: SODIUM CHLORIDE FLUSH 0.9% 10 ML SYRINGE IVP SCH ×3 (00:18→10:47)
[2017-09-15] MEDS: BUDESONIDE 0.5 MG/2 ML NEB INH SCH (06:03)
[2017-09-15] MEDS: IPRATROPIUM/ALBUTEROL 3 ML NEB INH SCH ×2 (06:03→10:50)
[2017-09-15] MEDS: methylPREDNISolone SUCCINATE 125 MG/2 ML VIAL IVP SCH (06:14)
[2017-09-15] MEDS: SODIUM CHLORIDE FLUSH 0.9% 10 ML SYRINGE IVP PRN (06:14)
[2017-09-15 07:31] VITALS: BP 151/73
[2017-09-15] MEDS: BENZOCAINE/MENTHOL LOZENGE MM PRN (07:59)
[2017-09-15] MEDS: POLYETHYLENE GLYCOL 3350 17 GM PACKET PO SCH (08:00)
[2017-09-15] MEDS: DOCUSATE SODIUM 250 MG CAPSULE PO SCH (08:01)
[2017-09-15] MEDS: SENNA 8.6 MG TABLET PO SCH (08:01)
[2017-09-15] MEDS: guaiFENesin 600 MG TABLET PO SCH (08:02)
[2017-09-15] MEDS: FUROSEMIDE 40 MG TABLET PO SCH (08:03)
[2017-09-15] MEDS: FAMOTIDINE 20 MG TABLET PO SCH (08:03)
[2017-09-15] MEDS: MAGNESIUM OXIDE 400 MG TABLET PO SCH (08:03)
[2017-09-15] MEDS: CHOLECALCIFEROL 1,000 UNIT TABLET PO SCH (08:04)
[2017-09-15] MEDS: LISINOPRIL 5 MG TABLET PO SCH (08:04)
[2017-09-15] MEDS: FLUTICASONE NASAL SPRAY NAS SCH (08:22)
[2017-09-15] MEDS: CALCIUM CARBONATE CHEW 500 MG TABLET PO SCH (08:22)
[2017-09-15 08:49] LABS: BASOPHILS % (AUTO) 0.1 %; HGB - HEMOGLOBIN 15.6 g/dL (12.0-16.0); LYMPHOCYTES % (AUTO) 4.4 %; MEAN CORPUSCULAR HEMOGLOBIN 31.1 pg (27.0-31.0); MEAN CORPUSCULAR HGB CONC 32.5 g/dL (32.0-36.0); MEAN CORPUSCULAR VOLUME 95.7 fL (81.0-99.0); MONOCYTES % (AUTO) 4.9 %; NEUTROPHILS % (AUTO) 90.6 %; PLT - PLATELET COUNT 208 10^3/uL (130-450); RED BLOOD COUNT 5.01 10^6/uL (4.20-5.40); RED CELL DISTRIBUTION WIDTH 14.2 % (12.0-15.0); WHITE BLOOD COUNT 13.5 x10^3/uL (4.8-10.8)
[2017-09-15 08:53] LABS: ABNORMAL LYMPHS % (MANUAL) 0 %; BAND NEUTROPHILS % (MANUAL) 0 %
[2017-09-15 09:22] LABS: CALCIUM 9.5 mg/dL (8.5-10.3)
[2017-09-15 09:23] LABS: BILIRUBIN,TOTAL 0.7 mg/dL (0.2-1.0); TOTAL PROTEIN 6.6 g/dL (6.7-8.2)
[2017-09-15 09:24] LABS: ALBUMIN 3.5 g/dL (3.2-5.5); ALBUMIN/GLOBULIN RATIO 1.1 (1.0-2.2)
[2017-09-15 10:00] LABS: LYMPHOCYTES # (MANUAL) 0.8 10^3/uL (1.5-3.5); LYMPHOCYTES % (MANUAL) 4 %; MONOCYTES # (MANUAL) 0.3 10^3/uL (0.0-1.0); NEUTROPHILS # (MANUAL) 12.4 10^3/uL (1.5-6.6); NEUTROPHILS % (MANUAL) 92 %
[2017-09-15 10:01] LABS: DIFFERENTIAL COMMENT MANUAL DIFFERENTIAL; PLATELET ESTIMATE, MANUAL NORMAL (130-450,000) (NORMAL); PLATELET MORPHOLOGY NORMAL APPEARANCE (NORMAL); RBC MORPHOLOGY (MULTIPLE) NORMAL APPEARANCE (NORMAL)
[2017-09-15] MEDS: MORPHINE 2 MG/ML SYRINGE IVP PRN (10:46)
[2017-09-15] MEDS: SPIRONOLACTONE 25 MG TABLET PO SCH (12:49)
--- NOTE | 2017-09-15 13:44 | Discharge Plan ---
Discharge Plan Disposition: Home Health Service Condition: Poor Prescriptions: oxyCODONE/ACET 5/325 [Percocet 5 mg/325 mg] 1 tab PO Q4HR PRN #20 tablet PRN Reason: Pain Albuterol 2.5 mg INH Q4H PRN #30 neb PRN Reason: Wheezing guaiFENesin/CODEINE [Robitussin AC] 5 ml PO Q6H PRN #20 udc PRN Reason: Cough Ipratropium/Albuterol [Duoneb] 3 ml INH Q6H PRN #30 neb PRN Reason: Wheezing predniSONE [Deltasone] 20 mg PO [id number] #21 tab Diet: Regular Activity Restrictions: Activity as Tolerated Shower Restrictions: No (fall precaution, caregiver closely monitor) Assistance Devices: Walker Weight Bearing: Full Weight Instruction Topics: COPD, Oxygen Home Use, Prednisone tablets, Codeine Guaifenesin oral solution or syrup, Acetaminophen Oxycodone capsules, Albuterol inhalation solution, Albuterol Ipratropium solution for inhalation Additional Instructions or Follow Up instructions: May follow up your PCP in 2-3 days, follow up the pulmonary rehab, follow up hydrator as out-pt, follow up home oxygen safely usage as RT instruction. Should your symptoms return or worsen, may present ER or call 911 for help. Follow-Up Care: [facility] - Pulmonary No Smoking: If you smoke, Please STOP! Call for help. Follow-up with: Lindsey Bolden MD [Physician No Access] -
--- NOTE | 2017-09-15 14:08 | DISCHARGE SUMMARY ---
Discharge Summary Discharge Date: 09/15/17 Discharging Provider: MENDENHALL Primary Care Provider: Dr. Bolden Condition at Discharge: Poor Discharge Disposition: 01 Home, Self Care Discharge Facility Name: home - DIAGNOSES Admission Diagnoses: (1) COPD with acute exacerbation (2) Hypertension (3) Obstructive sleep apnea hypopnea, moderate Discharge Diagnoses with Status of Each Condition: (1) COPD with acute exacerbation Pt state she feels much better breathing today, request to be discharged to home today. Pt was hypoxic with ambulation, room air with O2 sats of 87%, with exertion on 2 lpm her sats were 90% at 50 feet. I am ordering home O2 at 2 lpm via nasal cannula with ambulation. Pt states she smoked cigarette for long time, recent quitted, pt state she will let people smoke at her home more. (2) Depressive disorder stable, continue PCP management (3) Obstructive sleep apnea stable, continue PCP and follow up out-pt education reporter management (4) Cardiomyopathy stable, continue home meds, follow up PCP (5) Hypoxia 97% O2 sats at 3 liter of O2 at hospital. Home O2 is order as the above. The home nebulizer machine ordered for administration of bronchodialators. (6) Hyperglycemia, unspecified stable. A1C 6.4, likely caused by steroid usage in the hospital. follow up PCP - HPI History of Present Illness: refer from Dr. Will's HPI for pt as the following: Mrs. Ester Benavides is a very pleasant 52-year-old female with a history of COPD who has been having increasing shortness of breath for the last 3-4 days. She came to the emergency department at [facility] when she began experiencing hemoptysis this morning. Upon admission to the emergency department the patient was found to have oxygen saturation in the 70s on room air; this was brought up to 89% on room air following a couple of treatments however the patient remained severely tachypneic and weak and unable to care for herself so she will be admitted to the hospital for an acute exacerbation of COPD. Of note is that the patient relates that she ran out of her cardiac medications 2-3 days ago because her former primary care provider no longer takes her insurance and she ran out of her prescriptions, however a BNP on admission was 25 and the chest x-ray did not show any signs of vascular congestion. She will need to be set up with a new primary care provider on discharge who accepts her insurance. - HOSPITAL COURSE Hospital Course: pt was admitted for COPD exacerbation. It was difficult to control her symptoms. After continuing to be treated by INH and steroid, the symptoms was controlled. pt felt better and requested to be d/c today. 97% O2 sats at 3 liter of O2 at hospital. Home O2 is ordered. Pulmonary rehab is arranged for pt. - ALLERGIES Allergies/Adverse Reactions: Allergies Allergy/AdvReac Type Severity Reaction Status Date / Time codeine [Codeine] Allergy Severe Swelling/Hi Verified 08/29/17 15:42 ves erythromycin base Allergy Severe Anaphylaxis Verified 08/29/17 15:42 [Erythromycin Base] gabapentin Allergy Severe Anaphylaxis Verified 08/29/17 15:42 Latex, Natural Rubber Allergy Severe Blisters Verified 08/29/17 15:42 pamabrom [From Midol] Allergy Severe Respiratory Verified 08/29/17 15:42 pyrilamine maleate * Allergy Severe Respiratory Verified 08/29/17 15:42 [From Midol] shellfish derived Allergy Severe Anaphylaxis Verified 08/29/17 15:42 venom-honey bee Allergy Severe Anaphylaxis Verified 08/29/17 15:42 [bee venom (honey bee)] chlorhexidine Allergy Intermediate Rash Verified 08/29/17 15:42 ondansetron Allergy Respiratory Verified 08/29/17 15:42 piperacillin [From Zosyn] AdvReac Rash Verified 09/10/17 15:59 tazobactam [From Zosyn] AdvReac Rash Verified 09/10/17 15:59 CLR AdvReac Severe Respiratory Uncoded 12/24/15 12:14 - MEDICATIONS Home Medications: Ambulatory Orders Medication Instructions Recorded Confirmed Lisinopril [Zestril] 5 mg PO DAILY #30 tablet 02/15/17 09/10/17 Spironolactone [Aldactone] 25 mg PO DAILY #30 tablet 02/15/17 09/10/17 Albuterol Sulfate [Proair Hfa 2 puffs INH Q4H PRN 09/10/17 09/10/17 Inhaler] Fluticasone/Salmeterol [Advair 1 puffs INH BID 09/10/17 09/10/17 250-50 Diskus] Albuterol 2.5 mg INH Q4H PRN #30 neb 09/15/17 Albuterol Sulfate [Proair Hfa 1 - 2 puffs INH Q4H PRN #1 inhaler 09/15/17 Inhaler] Fluticasone/Salmeterol [Advair Hfa 8 gm IH BID PRN #1 hfa.aer.ad 09/15/17 230-21 Mcg Inhaler] Ipratropium/Albuterol [Duoneb] 3 ml INH Q6H PRN #30 neb 09/15/17 guaiFENesin/CODEINE [Robitussin AC] 5 ml PO Q6H PRN #20 udc 09/15/17 oxyCODONE/ACET 5/325 [Percocet 5 1 tab PO Q4HR PRN #20 tablet 09/15/17 mg/325 mg] predniSONE [Deltasone] 20 mg PO [id number] #21 tab 09/15/17 - PHYSICAL EXAM AT DISCHARGE General Appearance: positive: No acute distress, Alert. negative: Lethargic Eyes Bilateral: positive: Normal inspection, PERRL, No lid inflammation, Conjunctivae nml ENT: positive: ENT inspection nml, Pharynx nml, No signs of dehydration. negative: Purulent nasal drainage, Pharyngeal erythema, Oral lesions Neck: positive: Nml inspection, Thyroid nml, No JVD, Trachea midline. negative : Thyromegaly, Lymphadenopathy (R), Lymphadenopathy (L), Stiff neck, Swelling/ bruising, Tracheal deviation Respiratory: positive: Chest non-tender, No respiratory distress, Wheezes (mild wheezes, it is much reduced from the previous. ). negative: Rales, Rhonchi Cardiovascular: positive: Regular rate & rhythm, No murmur, No gallop. negative : Irregularly irregular, Extrasystoles, Tachycardia, Bradycardia, Systolic murmur, Diastolic murmur Peripheral Pulses: positive: 2+ Abdomen: positive: Non-tender, No organomegaly, Nml bowel sounds, No distention. negative: Tenderness, Guarding, Rebound Back: positive: Nml inspection. negative: CVA tenderness (R), CVA tenderness (L ) Skin: positive: Color nml, No rash, Warm, Dry. negative: Cyanosis, Diaphoresis , Pallor Extremities: positive: Non-tender, Full ROM, Nml appearance. negative: Calf tenderness, Joint swelling, Glenny's sign/cords Neurologic/Psychiatric: positive: Oriented x3, Motor nml, Sensation nml. negative: Weakness, Sensory loss, Facial droop, Slurred/abnml speech, Depressed mood/affect - LABS Result Diagrams: 09/15/17 08:40 09/15/17 08:40 - FOLLOW UP Follow Up: May follow up your PCP in 2-3 days, follow up the pulmonary rehab, follow up education reporter as out-pt, follow up home oxygen safely usage as RT instruction. Should your symptoms return or worsen, may present ER or call 911 for help. You request pain medication for your pain around ribs, and cough medication. special education was advised to you. Guaifenesin oral solution or syrup, Acetaminophen Oxycodone capsules were used when you were in the hospital. Because both medications had codeine, you was educated: do not use these two medications at the same time. it must be at least 4 hours interval to be administrated. You stated you understood, and will follow. - TIME SPENT Time Spent in Discharge (Minutes): 55
[2017-09-15] MEDS ORDERED: INSULIN ASPART 300 UNIT/3 ML PEN SUBQ SCH (17:00)
== END 2017-09-15 14:35 | disposition home or self-care (01) | DRG 190 ==
LOC: EDUNIT# → ED 20:42 → MS2 22:19
PROVIDERS: ADMIT Hospitalist; ATTEND Nurse Practitioner Gerontology
DX: J44.1 Chronic obstructive pulmonary disease with (acute) exacerbation (principal); J18.9 Pneumonia, unspecified organism; I42.9 Cardiomyopathy, unspecified; Z68.41 Body mass index [BMI] 40.0-44.9, adult; I10 Essential (primary) hypertension; G47.33 Obstructive sleep apnea (adult) (pediatric); R09.02 Hypoxemia; J44.0 Chronic obstructive pulmonary disease with (acute) lower respiratory infection; F32.9 Major depressive disorder, single episode, unspecified; R73.9 Hyperglycemia, unspecified; T38.0X5A Adverse effect of glucocorticoids and synthetic analogues, initial encounter; E66.01 Morbid (severe) obesity due to excess calories; I25.10 Atherosclerotic heart disease of native coronary artery without angina pectoris; G43.909 Migraine, unspecified, not intractable, without status migrainosus; K21.9 Gastro-esophageal reflux disease without esophagitis; F40.240 Claustrophobia; M19.90 Unspecified osteoarthritis, unspecified site; G89.29 Other chronic pain; M54.9 Dorsalgia, unspecified; Z99.81 Dependence on supplemental oxygen; Z79.52 Long term (current) use of systemic steroids; Z79.891 Long term (current) use of opiate analgesic; Z79.899 Other long term (current) drug therapy; I25.2 Old myocardial infarction; Z96.659 Presence of unspecified artificial knee joint; Z87.01 Personal history of pneumonia (recurrent); Z87.828 Personal history of other (healed) physical injury and trauma; Z87.891 Personal history of nicotine dependence; Z91.19 Patient's noncompliance with other medical treatment and regimen; Z71.3 Dietary counseling and surveillance
CPT/HCPCS: 36415; 36600; 71045; 71275; 80048; 80053; 82803; 83036; 83690; 83735; 83880; 84484; 85025; 87070; 87205; 93005; 93306; 94640; 94761; 96365; 96372; 99284; 99285; 99291

== ENCOUNTER 2017-09-28 08:00 | Outpatient (CLI) | payer OTHER, MEDICARE ==
[2017-09-28 18:52] LABS: HGB - HEMOGLOBIN 15.3 g/dL (12.0-16.0); MEAN CORPUSCULAR HEMOGLOBIN 30.8 pg (27.0-31.0); MEAN CORPUSCULAR HGB CONC 32.3 g/dL (32.0-36.0); MEAN CORPUSCULAR VOLUME 95.1 fL (81.0-99.0); MEAN PLATELET VOLUME 8.8 fL (7.9-10.8); RED BLOOD COUNT 4.98 10^6/uL (4.20-5.40); RED CELL DISTRIBUTION WIDTH 13.9 % (12.0-15.0); WHITE BLOOD COUNT 19.2 x10^3/uL (4.8-10.8)
[2017-09-28 19:10] LABS: CALCIUM 9.7 mg/dL (8.5-10.3); CREATININE 0.8 mg/dL (0.4-1.0)
== END 2017-09-28 08:01 ==
LOC: LAB.WCP 08:00
PROVIDERS: ATTEND Family Medicine
DX: J44.9 Chronic obstructive pulmonary disease, unspecified (principal); I50.9 Heart failure, unspecified
CPT/HCPCS: 36415; 80048; 83880; 85027

== ENCOUNTER 2017-11-21 08:00 | Outpatient (CLI) | payer OTHER, MEDICARE ==
[2017-11-21 19:11] LABS: HGB - HEMOGLOBIN 15.9 g/dL (12.0-16.0); MEAN CORPUSCULAR HEMOGLOBIN 32.8 pg (27.0-31.0); MEAN CORPUSCULAR HGB CONC 33.5 g/dL (32.0-36.0); MEAN CORPUSCULAR VOLUME 97.9 fL (81.0-99.0); RED BLOOD COUNT 4.84 10^6/uL (4.20-5.40); RED CELL DISTRIBUTION WIDTH 14.7 % (12.0-15.0); WHITE BLOOD COUNT 17.2 x10^3/uL (4.8-10.8)
[2017-11-21 19:45] LABS: CALCIUM 9.2 mg/dL (8.5-10.3); CREATININE 0.8 mg/dL (0.4-1.0)
== END 2017-11-21 08:01 | disposition home or self-care (01) ==
LOC: LAB.WCP 08:00
PROVIDERS: ATTEND Family Medicine
DX: I50.9 Heart failure, unspecified (principal); J44.9 Chronic obstructive pulmonary disease, unspecified
CPT/HCPCS: 36415; 80048; 83880; 85027

== ENCOUNTER 2017-12-28 22:16 | Outpatient (CLI) | payer OTHER, MEDICARE | END 2017-12-28 22:17 | disposition critical access hospital (66) | LOC: EMS 22:16 | PROVIDERS: ATTEND Surgery | DX: R06.00 Dyspnea, unspecified (principal); X58.XXXA Exposure to other specified factors, initial encounter; Y92.039 Unspecified place in apartment as the place of occurrence of the external cause | CPT/HCPCS: A0425; A0427 ==

== ENCOUNTER 2017-12-28 22:34 | Inpatient (IN) | payer OTHER, MEDICARE ==
[2017-12-28] MEDS ORDERED: EPINEPHrine 1 MG/ML AMP ONE (22:40)
[2017-12-28] MEDS ORDERED: EPINEPHrine 1 MG/ML AMP IM STA (22:43)
[2017-12-28] MEDS ORDERED: FAMOTIDINE 20 MG/2 ML VIAL IVP STA (22:44)
--- NOTE | 2017-12-28 22:47 | ED Physician Documentation ---
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 She took 2 epi-pens at home, but there efficacy was questionable. She had another EpiPen for paramedics. After that her blood pressure was running about 90/60 with a heart rate of 120 and she was still quite symptomatic. On route she also received 50 mg of Benadryl, 125 mg of Solu -Medrol, and a DuoNeb.) Review of Systems Ten Systems: 10 systems reviewed and negative Constitutional: denies: Fever, Chills Cardiac: denies: Chest pain / pressure Respiratory: reports: Dyspnea, Cough GI: denies: Abdominal Pain PD PAST MEDICAL HISTORY - Past Medical History Cardiovascular: Coronary artery disease, [place] Respiratory: Asthma, Emphysema, Pneumonia, Shortness of breath, Sleep apnea, Other Endocrine/Autoimmune: None GI: GERD DICTAPHONE TYPIST: Ectopic : None, Frequency HEENT: Other Psych: Depression, Claustrophobia Musculoskeletal: Osteoarthritis, Chronic back pain Derm: None - Past Surgical History Past Surgical History: Yes General: Cholecystectomy, EGD Ortho: Knee replacement /DICTAPHONE TYPIST: Hysterectomy, Other Cardiovascular: Cardiac catheterization HEENT: Rhinoplasty - Present Medications Home Medications: Ambulatory Orders Medication Instructions Recorded Confirmed Lisinopril [Zestril] 5 mg PO DAILY #30 tablet 02/15/17 09/10/17 Spironolactone [Aldactone] 25 mg PO DAILY #30 tablet 02/15/17 09/10/17 Albuterol Sulfate [Proair Hfa 2 puffs INH Q4H PRN 09/10/17 09/10/17 Inhaler] Fluticasone/Salmeterol [Advair 1 puffs INH BID 09/10/17 09/10/17 250-50 Diskus] Albuterol 2.5 mg INH Q4H PRN #30 neb 09/15/17 Albuterol Sulfate [Proair Hfa 1 - 2 puffs INH Q4H PRN #1 inhaler 09/15/17 Inhaler] Fluticasone/Salmeterol [Advair Hfa 8 gm IH BID PRN #1 hfa.aer.ad 09/15/17 230-21 Mcg Inhaler] Ipratropium/Albuterol [Duoneb] 3 ml INH Q6H PRN #30 neb 09/15/17 guaiFENesin/CODEINE [Robitussin AC] 5 ml PO Q6H PRN #20 udc 09/15/17 oxyCODONE/ACET 5/325 [Percocet 5 1 tab PO Q4HR PRN #20 tablet 09/15/17 mg/325 mg] predniSONE [Deltasone] 20 mg PO [id number] #21 tab 09/15/17 - Allergies Allergies/Adverse Reactions: Allergies Allergy/AdvReac Type Severity Reaction Status Date / Time codeine [Codeine] Allergy Severe Swelling/Hi Verified 12/28/17 22:36 ves erythromycin base Allergy Severe Anaphylaxis Verified 12/28/17 22:36 [Erythromycin Base] gabapentin Allergy Severe Anaphylaxis Verified 12/28/17 22:36 Latex, Natural Rubber Allergy Severe Blisters Verified 12/28/17 22:36 pamabrom [From Midol] Allergy Severe Respiratory Verified 12/28/17 22:36 pyrilamine maleate * Allergy Severe Respiratory Verified 12/28/17 22:36 [From Midol] shellfish derived Allergy Severe Anaphylaxis Verified 12/28/17 22:36 venom-honey bee Allergy Severe Anaphylaxis Verified 12/28/17 22:36 [bee venom (honey bee)] chlorhexidine Allergy Intermediate Rash Verified 12/28/17 22:36 ondansetron Allergy Respiratory Verified 12/28/17 22:36 piperacillin [From Zosyn] AdvReac Rash Verified 09/10/17 15:59 tazobactam [From Zosyn] AdvReac Rash Verified 09/10/17 15:59 CLR AdvReac Severe Respiratory Uncoded 12/24/15 12:14 - Social History Does the pt smoke?: No Smoking Status: Former smoker Does the pt drink ETOH?: Yes Does the pt have substance abuse?: No - Family History Family history: reports: Non contributory - Immunizations Immunizations are current?: No Immunizations: Other immun not current - POLST Patient has POLST: No POLST Status: Full Code PD ED PE NORMAL - Vitals Vital signs reviewed: Yes - General General: Alert and oriented X 3, Other (She appears breathless with room air sats in the mid 80s and loud expiratory wheezes heard at the bedside.) - HEENT HEENT: PERRL, EOMI, Other (Visualized portions of the oropharynx are without evidence of obvious angina) - Neck Neck: Supple, no meningeal sign, No bony TTP - Cardiac Cardiac: RRR (Tachycardic without murmur) - Respiratory Respiratory: Other (Tachypneic and labored with rhonchi and wheezes throughout.) - Abdomen Abdomen: Normal bowel sounds, Soft, Non tender - Extremities Extremities: No edema, No calf tenderness / cord - Neuro Neuro: Alert and oriented X 3, Normal speech - Psych Psych: Normal mood, Normal affect Results - Vitals Vitals: Vital Signs - 24 hr 12/28/17 12/29/17 22:38 00:09 Temperature 36.5 C Heart Rate 88 95 Respiratory 26 H 28 H Rate Blood Pressure 95/76 134/89 H O2 Saturation 100 99 Oxygen O2 Source [] Room air O2 Source Room air - EKG (time done) 2242 Rate: Rate (enter#) (90) Rhythm: NSR (With frequent PVCs) [place]: Normal Intervals: Normal [place] QRS: Normal Ischemia: Non specific changes Computer interpretation: Agree with computer - Labs Labs: Laboratory Tests 12/28/17 12/28/17 12/28/17 23:30 23:30 23:30 WBC 13.7 H RBC 4.53 Hgb 15.1 Hct 43.8 MCV 96.7 MCH 33.3 H MCHC 34.4 RDW 13.8 Plt Count 234 MPV 8.7 Neut # (Auto) 9.8 H Lymph # (Auto) 2.8 [place] # (Auto) 0.8 Eos # (Auto) 0.2 Baso # (Auto) 0.1 Absolute Nucleated RBC 0.00 Nucleated RBC % 0.0 Sodium 136 Potassium 3.0 L Chloride 104 Carbon Dioxide 26 Anion Gap 6.0 BUN 15 Creatinine 0.9 Estimated GFR (MDRD) 65 L Glucose 251 H Calcium 9.3 Total Bilirubin 0.3 AST 25 ALT 22 Alkaline Phosphatase 87 Total Creatine Kinase 98 CK-MB (CK-2) 3.2 Troponin I < 0.04 Total Protein 6.4 L Albumin 3.5 Globulin 2.9 Albumin/Globulin Ratio 1.2 Lipase 35 Procedures - Central Line Central Line Preparation: Consent Obtained, Time out completed, Ultrasound used , Sterile prep and drape Central line location: Right IJ Central line type: Triple lumen Central line aftercare: Chlorhexidine disc placed, Secured, Placement confirmed , No pneumothorax, No complications, Bundle checklist complete, Pt tolerated well PD MEDICAL DECISION MAKING - ED course ED course: 52-year-old woman with anaphylactic shock after a bee sting reaction on the left arm. Prior to arrival she received 3 EpiPen since still had low blood pressures and tachycardia with respiratory distress. On arrival here we gave her a fourth epinephrine injection, and I placed a central line thinking she would probably need an epinephrine drip, but her blood pressure stabilized after that. She was still quite wheezy. I added Pepcid IV to the Solu-Medrol and Benadryl she had also received prior to arrival and I spoke with Dr. Will for admission at 11:30 PM. - Critical Care Time(min): 42 Time Includes: Direct patient care, Review records, Reassess patient, Document care, Coordinate care, Medical consult, Family consult for tx dec Data interpretation: Labs Procedures excluded from critical care time: Central IV, EKG - Sepsis Event Vital Signs: Vital Signs - 24 hr 12/28/17 12/29/17 22:38 00:09 Temperature 36.5 C Heart Rate 88 95 Respiratory 26 H 28 H Rate Blood Pressure 95/76 134/89 H O2 Saturation 100 99 Oxygen O2 Source [] Room air O2 Source Room air Departure - Departure Disposition: [facility] DC/Xfer Clinical Impression: Anaphylactic shock Condition: Critical
--- NOTE | 2017-12-28 23:09 | XRAY Report ---
Procedure Date: 12/28/2017 Accession Number: [id number] / [id number] Procedure: XR - Chest 1 View X-Ray CPT Code: 29183 FULL RESULT: EXAM: CHEST RADIOGRAPHY EXAM DATE: 12/28/2017 10:54 PM. CLINICAL HISTORY: Dyspnea, anaphylaxis. COMPARISON: CHEST 2 VIEW PA/LAT 11/21/2017. TECHNIQUE: 1 view. FINDINGS: Lungs/Pleura: There is new pulmonary vascular congestion and interstitial edema. No definite effusion or pneumothorax. Mediastinum: Cardiomegaly. Other: None. IMPRESSION: Cardiomegaly, pulmonary vascular congestion, and interstitial edema, compatible with congestive failure. RADIA
[2017-12-28] MEDS ORDERED: EPINEPHrine 1 MG/ML AMP IM PRN (23:41)
[2017-12-28] MEDS ORDERED: D5NS W/20 MEQ KCL 1,000 ML IV SCH (23:45)
--- NOTE | 2017-12-28 23:49 | XRAY Report ---
Procedure Date: 12/28/2017 Accession Number: [id number] / [id number] Procedure: XR - Chest 1 View X-Ray CPT Code: 54597 FULL RESULT: EXAM: CHEST RADIOGRAPHY EXAM DATE: 12/28/2017 11:32 PM. CLINICAL HISTORY: CENTRAL LINE PLACEMENT. COMPARISON: CHEST 1 VIEW 12/28/2017. TECHNIQUE: 1 view. FINDINGS: Lungs/Pleura: Pulmonary vascular congestion. Possible slight interstitial edema. No alveolar consolidation or pleural effusion seen. No pneumothorax. Mediastinum: Mild cardiomegaly. Aortic atherosclerosis. Other: Right internal jugular catheter with the tip at the cavoatrial junction. IMPRESSION: 1. Right IJ catheter tip at the cavoatrial junction. 2. Cardiomegaly with pulmonary vascular congestion and possible slight interstitial edema. RADIA
[2017-12-28 23:51] LABS: BASOPHILS # (AUTO) 0.1 10^3/uL (0.0-0.1); BASOPHILS % (AUTO) 0.5 %; EOSINOPHILS # (AUTO) 0.2 10^3/uL (0.0-0.7); EOSINOPHILS % (AUTO) 1.2 %; HGB - HEMOGLOBIN 15.1 g/dL (12.0-16.0); LYMPHOCYTES # (AUTO) 2.8 10^3/uL (1.5-3.5); LYMPHOCYTES % (AUTO) 20.6 %; MEAN CORPUSCULAR HEMOGLOBIN 33.3 pg (27.0-31.0); MEAN CORPUSCULAR HGB CONC 34.4 g/dL (32.0-36.0); MEAN CORPUSCULAR VOLUME 96.7 fL (81.0-99.0); MEAN PLATELET VOLUME 8.7 fL (7.9-10.8); MONOCYTES # (AUTO) 0.8 10^3/uL (0.0-1.0); NEUTROPHILS # (AUTO) 9.8 10^3/uL (1.5-6.6); NEUTROPHILS % (AUTO) 71.7 %; PLT - PLATELET COUNT 234 10^3/uL (130-450); RED BLOOD COUNT 4.53 10^6/uL (4.20-5.40); RED CELL DISTRIBUTION WIDTH 13.8 % (12.0-15.0); WHITE BLOOD COUNT 13.7 x10^3/uL (4.8-10.8)
[2017-12-28] MEDS ORDERED: SALMETEROL IH PRN (23:53)
[2017-12-28] MEDS ORDERED: FLUTICASONE IH PRN (23:53)
[2017-12-28] MEDS ORDERED: IPRATROPIUM/ALBUTEROL 3 ML NEB INH PRN (23:53)
[2017-12-28] MEDS ORDERED: guaiFENesin/CODEINE 5 ML UDC PO PRN (23:53)
[2017-12-29 00:02] LABS: ALBUMIN 3.5 g/dL (3.2-5.5); ALBUMIN/GLOBULIN RATIO 1.2 (1.0-2.2); BILIRUBIN,TOTAL 0.3 mg/dL (0.2-1.0); CALCIUM 9.3 mg/dL (8.5-10.3); CREATININE 0.9 mg/dL (0.4-1.0); TOTAL PROTEIN 6.4 g/dL (6.7-8.2)
[2017-12-29 00:06] LABS: TROPONIN I < 0.04 ng/mL (<0.49)
[2017-12-29 00:08] LABS: CREATINE KINASE MB 3.2 ng/mL (0.6-6.3)
--- NOTE | 2017-12-29 00:30 | HISTORY & PHYSICAL EXAMINATION ---
Chief Complaint - Chief Complaint Chief Complaint: shortness of breath History of Present Illness - Admitted From Admitted From:: home via EMS - History Obtained From History obtained from: Patient, ED physician - History of Present Illness HPI Comment/Other: Mrs. Ester Benavides is a very pleasant 52-year-old woman with an extensive past medical history significant for chronic bronchitis/COPD, coronary artery disease with 4 myocardial infarctions, and congestive heart failure. 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 This evening, around 10 PM the patient was stung by a bee on her left arm. She had 2 epi-pens at home (with questionable potency) which she took but these failed to relieve her shortness of breath and so she called 911 and was brought to the hospital via EMS. On the way the patient received another dose of epinephrine, and she received a fourth dose in the emergency department which seemed to finally stop her anaphylactic reaction. In the ED the patient's vital signs were stable, however she was very hypoxic without supplemental oxygen and desaturated to the 80s when she was off of supplemental oxygen for just a few minutes. Because her blood pressure kept dropping a central line was placed in the patient's external jugular by the emergency department physician. After the fourth dose of epinephrine the patient's blood pressure stabilized and her wheezing abated. At this time we will admit the patient to the intensive care unit on telemetry and monitor her oxygen saturation rate carefully. She will have around-the- clock Benadryl and glucocorticoids started and we will have epinephrine available should she begin to experience respiratory distress. We will address her comorbidities and when she is stabilized transfer her to the medical floor in anticipation of discharge. History - Past Medical History Cardiovascular: reports: Coronary artery disease, [place] Respiratory: reports: Asthma, Emphysema, Pneumonia, Shortness of breath, Sleep apnea, Other (chronic bronchitis) Endocrine/Autoimmune: reports: None GI: reports: GERD WALL ATTENDANT: reports: Ectopic : reports: None, Frequency HEENT: reports: Other Psych: reports: Depression, Claustrophobia Musculoskeletal: reports: Osteoarthritis, Chronic back pain Derm: reports: None MRSA Hx?: No - Past Surgical History General: reports: Cholecystectomy, EGD Ortho: reports: Knee replacement /WALL ATTENDANT: reports: Hysterectomy, Other Cardiovascular: reports: Cardiac catheterization HEENT: reports: Rhinoplasty - Family & Social History Family History: Mother: Alive and Well, Alzheimer's Disease, Hyperlipidemia, Hypertension, Father: , Cancer, Other family: CVA/TIA, Diabetes, Type 1 , MD Living arrangement: At home Living Situation: With spouse/s.o., With family Social History Notes: The patient lives at home with her and granddaughter - Substance History Use: Uses substance without health or social issues: NONE Tobacco Details: Cigarettes (The patient says she quit smoking the last time she was admitted which was at the end of August 2017.) - POLST Patient has POLST: No POLST Status: Full Code Meds/Allgy - Home Medications Home Medications: Ambulatory Orders Medication Instructions Recorded Confirmed Lisinopril [Zestril] 5 mg PO DAILY #30 tablet 02/15/17 09/10/17 Spironolactone [Aldactone] 25 mg PO DAILY #30 tablet 02/15/17 09/10/17 Albuterol Sulfate [Proair Hfa 2 puffs INH Q4H PRN 09/10/17 09/10/17 Inhaler] Fluticasone/Salmeterol [Advair 1 puffs INH BID 09/10/17 09/10/17 250-50 Diskus] Albuterol 2.5 mg INH Q4H PRN #30 neb 09/15/17 Albuterol Sulfate [Proair Hfa 1 - 2 puffs INH Q4H PRN #1 inhaler 09/15/17 Inhaler] Fluticasone/Salmeterol [Advair Hfa 8 gm IH BID PRN #1 hfa.aer.ad 09/15/17 230-21 Mcg Inhaler] Ipratropium/Albuterol [Duoneb] 3 ml INH Q6H PRN #30 neb 09/15/17 guaiFENesin/CODEINE [Robitussin AC] 5 ml PO Q6H PRN #20 udc 09/15/17 oxyCODONE/ACET 5/325 [Percocet 5 1 tab PO Q4HR PRN #20 tablet 09/15/17 mg/325 mg] predniSONE [Deltasone] 20 mg PO [id number] #21 tab 09/15/17 - Allergies Allergies/Adverse Reactions: Allergies Allergy/AdvReac Type Severity Reaction Status Date / Time codeine [Codeine] Allergy Severe Swelling/Hi Verified 12/28/17 22:36 ves erythromycin base Allergy Severe Anaphylaxis Verified 12/28/17 22:36 [Erythromycin Base] gabapentin Allergy Severe Anaphylaxis Verified 12/28/17 22:36 Latex, Natural Rubber Allergy Severe Blisters Verified 12/28/17 22:36 pamabrom [From Midol] Allergy Severe Respiratory Verified 12/28/17 22:36 pyrilamine maleate * Allergy Severe Respiratory Verified 12/28/17 22:36 [From Midol] shellfish derived Allergy Severe Anaphylaxis Verified 12/28/17 22:36 venom-honey bee Allergy Severe Anaphylaxis Verified 12/28/17 22:36 [bee venom (honey bee)] chlorhexidine Allergy Intermediate Rash Verified 12/28/17 22:36 ondansetron Allergy Respiratory Verified 12/28/17 22:36 piperacillin [From Zosyn] AdvReac Rash Verified 09/10/17 15:59 tazobactam [From Zosyn] AdvReac Rash Verified 09/10/17 15:59 CLR AdvReac Severe Respiratory Uncoded 12/24/15 12:14 Review of Systems - Constitutional Constitutional: reports: Weakness. denies: Fatigue, Fever, Chills, Malaise - Eyes Eyes: denies: Pain, Irritation, Amaurosis, Blurred vision, Vision loss, Dipolpia - Ears, Nose & Throat Ears, Nose & Throat: denies: Ear pain, Hearing loss, Hearing aids, Tinnitus, Vertigo, Nasal pain, Nasal discharge, Nosebleeds - Cardiovascular Cariovascular: denies: Irregular heart rate, Palpitations, Chest pain, Edema, Syncope - Respiratory Respiratory: reports: SOB at rest, SOB with exertion. denies: Cough, Sputum production, Wheezing, Snoring, Hemoptysis, Orthopnea - Gastrointestinal Gastrointestinal: denies: Abdominal pain, Abdominal distention, Constipation, Diarrhea, Change in bowel habits, Rectal bleeding - Genitourinary Genitourinary: denies: Dysuria, Frequency, Urgency, Hematuria - Musculoskeletal Musculoskeletal: denies: Muscle pain, Back pain, Muscle aches, Stiffness, Muscle weakness, Gout, Joint pain - Integumentary Integumentary: denies: Rash, Pruritis, Lesions - Neurological Neurological: denies: General weakness, Focal weakness, Headache, Dizziness - Psychiatric Psychiatric: denies: Depression, Anxiety, Suicidal, Hallucinations - Endocrine Endocrine: denies: Polyuria, Polydypsia, Polyphagia - Hematologic/Lymphatic Hematologic/Lymphatic: denies: Anemia, Bruising, Petechiae - All Other Systems All Other Systems: reports: Reviewed and negative Exam - Vital Signs Reviewed Vital Signs: Yes Vital Signs: Vital Signs x48h Temp Pulse Resp BP Pulse Ox 12/29/17 00:09 95 28 H 134/89 H 99 12/28/17 22:38 36.5 C 88 26 H 95/76 100 - Physical Exam General Appearance: positive: Alert, Mild distress Eyes Bilateral: positive: Normal inspection, PERRL, No lid inflammation, Conjunctivae nml, No scleral icterus ENT: positive: ENT inspection nml, Pharynx nml, No signs of dehydration Neck: positive: Nml inspection, Thyroid nml, No JVD, Trachea midline. negative : Thyromegaly, Stiff neck, Swelling/bruising, Tracheal deviation Respiratory: positive: Chest non-tender, Breath sounds nml, Other (Patient is slightly tachypneic but her oxygen saturation is 100% on 6 L via nasal cannula) . negative: Wheezes, Rales, Rhonchi Cardiovascular: positive: Regular rate & rhythm, No murmur, No gallop Peripheral Pulses: positive: 1+ Abdomen: positive: Non-tender, No organomegaly, Nml bowel sounds, No distention. negative: Guarding, Rebound Back: positive: Nml inspection. negative: CVA tenderness (R), CVA tenderness (L ) Skin: positive: Color nml, No rash, Warm, Dry. negative: Cyanosis Extremities: positive: Non-tender, Full ROM, Nml appearance, No pedal edema Neurologic/Psychiatric: positive: Oriented x3, CN's nml (2-12), Motor nml, Sensation nml, Mood/affect nml Conclusion/Plan - Problem List (1) Anaphylactic reaction Conclusion/Plan: The patient has a known history of allergic reactions to bee stings and had one this evening. The 2 epinephrine pens that she had at home may have been close to expiration and she received 2 further doses of epinephrine which have stopped the reaction. She is still short of breath and requiring supplemental oxygen at this time but her blood pressure has stabilized and overall she appears to be much improved. We will admit her to the intensive care unit under close observation on telemetry and continue with as needed epinephrine dosing as well as [id number] Benadryl and glucocorticoids. When she is stabilized she will be moved to the medical surgical floor in anticipation of discharge. (2) Diastolic congestive heart failure with preserved left ventricular function , NYHA class 2 Conclusion/Plan: The patient has a history of grade 2 diastolic dysfunction with an ejection fraction of 55-60% and mild concentric left ventricular hypertrophy. We will continue her on her home medication regimen. (3) COPD (chronic obstructive pulmonary disease) Conclusion/Plan: Patient has a history of COPD from chronic bronchitis and smoking all of her adult life up until about 4 months ago. We will continue on her on her long acting beta agonists and give her [id number] nebulizer treatments with DuoNeb. She will also receive oral glucocorticoids. (4) Morbid obesity Conclusion/Plan: The patient is morbidly obese with a BMI of 45. Will obtain nutritional consult. - Lab Results Lab results reviewed: Yes Fish Bones: 12/29/17 04:45 12/29/17 04:45 - Diagnostic Imaging Results Diagnostic Imaging Results: positive: Final report reviewed Diagnostic Imaging Results Comments: EXAM: CHEST RADIOGRAPHY EXAM DATE: 12/28/2017 10:54 PM. CLINICAL HISTORY: Dyspnea, anaphylaxis. COMPARISON: CHEST 2 VIEW PA/LAT 11/21/2017. TECHNIQUE: 1 view. FINDINGS: Lungs/Pleura: There is new pulmonary vascular congestion and interstitial edema. No definite effusion or pneumothorax. Mediastinum: Cardiomegaly. Other: None. IMPRESSION: Cardiomegaly, pulmonary vascular congestion, and interstitial edema, compatible with congestive failure. EXAM: CHEST RADIOGRAPHY EXAM DATE: 12/28/2017 11:32 PM. CLINICAL HISTORY: CENTRAL LINE PLACEMENT. COMPARISON: CHEST 1 VIEW 12/28/2017. TECHNIQUE: 1 view. FINDINGS: Lungs/Pleura: Pulmonary vascular congestion. Possible slight interstitial edema. No alveolar consolidation or pleural effusion seen. No pneumothorax. Mediastinum: Mild cardiomegaly. Aortic atherosclerosis. Other: Right internal jugular catheter with the tip at the cavoatrial junction. IMPRESSION: 1. Right IJ catheter tip at the cavoatrial junction. 2. Cardiomegaly with pulmonary vascular congestion and possible slight interstitial edema. - EKG Results EKG Interpreted Independently: Yes EKG Comparison: Old EKG unavailable EKG Findings: Normal sinus rhythm, rate 90 with multiple unifocal PVCs Core Measures - Anticipated LOS I expect patient to be DC'd or transferred within 96 hours.: Yes - DVT/VTE - Prophylaxis VTE/DVT Device ordered at admit?: Yes
[2017-12-29] MEDS: diphenhydrAMINE INJ 50 MG/ML VIAL IVP SCH ×6 (01:31→19:50)
[2017-12-29] MEDS: SODIUM CHLORIDE FLUSH 0.9% 10 ML SYRINGE IVP SCH ×3 (01:31→19:50)
[2017-12-29] MEDS: SODIUM CHLORIDE FLUSH 0.9% 10 ML SYRINGE IVP PRN ×3 (01:32→14:14)
[2017-12-29] MEDS: IPRATROPIUM/ALBUTEROL 3 ML NEB INH SCH ×5 (01:41→16:00)
[2017-12-29] MEDS ORDERED: methylPREDNISolone 4 MG TABLET PO SCH (02:00)
[2017-12-29] MEDS: predniSONE 20 MG TABLET PO SCH ×2 (03:04→08:25)
[2017-12-29 05:20] LABS: MEAN CORPUSCULAR HEMOGLOBIN 33.1 pg (27.0-31.0); MEAN CORPUSCULAR HGB CONC 33.6 g/dL (32.0-36.0); MEAN CORPUSCULAR VOLUME 98.5 fL (81.0-99.0); MEAN PLATELET VOLUME 8.8 fL (7.9-10.8); RED BLOOD COUNT 4.54 10^6/uL (4.20-5.40); RED CELL DISTRIBUTION WIDTH 13.6 % (12.0-15.0); WHITE BLOOD COUNT 11.5 x10^3/uL (4.8-10.8)
[2017-12-29 05:30] LABS: CALCIUM 9.4 mg/dL (8.5-10.3); CREATININE 0.9 mg/dL (0.4-1.0); MAGNESIUM 1.9 mg/dL (1.7-2.8); PHOSPHORUS 2.9 mg/dL (2.5-4.6)
[2017-12-29 05:59] LABS: HB2 TOTAL 16.2 g/dL; HEMOGLOBIN A1C 0.86 g/dL
[2017-12-29] MEDS ORDERED: FLUTICASONE/SALMETEROL 250/50 INHALER INH SCH (07:00)
[2017-12-29] MEDS: POTASSIUM CHLORIDE 20 MEQ TABLET PO SCH ×2 (08:26→16:10)
[2017-12-29] MEDS: FORMOTEROL FUMARATE NEB 20 MCG/2 ML INH SCH ×2 (08:46→19:34)
[2017-12-29] MEDS: BUDESONIDE 0.5 MG/2 ML NEB INH SCH ×2 (08:46→19:34)
[2017-12-29] MEDS ORDERED: SPIRONOLACTONE 25 MG TABLET PO SCH (09:00)
[2017-12-29] MEDS ORDERED: POLYETHYLENE GLYCOL 3350 17 GM PACKET PO SCH (09:00)
[2017-12-29] MEDS ORDERED: LISINOPRIL 5 MG TABLET PO SCH (09:00)
[2017-12-29] MEDS ORDERED: FUROSEMIDE 20 MG/2 ML VIAL IVP SCH (14:01)
--- NOTE | 2017-12-29 16:23 | PROVIDER PROGRESS NOTE ---
Assessment/Plan - Problem List (1) Anaphylactic shock Assessment/Plan: Shock has resolved without pressors, but she got alot of iv fluids i resuscitation. Continue supportive care. (2) COPD (chronic obstructive pulmonary disease) Assessment/Plan: Continue nebs, steroids. (3) Pulmonary edema Assessment/Plan: CXR at admission and today were read as having vascular congestion. Will give iv Lasix. Follow CXR and daily labs. - Current Meds Current Meds: Current Medications Generic Name Dose Route Start Last Admin Trade Name Freq PRN Reason Stop Dose Admin Albuterol/Ipratropium 3 ml 12/29/17 01:00 12/29/17 16:00 Duoneb INH 3 ml Q4HR ROMAN Administration Budesonide 0.5 mg 12/29/17 08:00 12/29/17 08:46 Pulmicort INH 0.5 mg RTBID ROMAN Administration Diphenhydramine HCl 50 mg 12/28/17 23:45 12/29/17 16:10 Benadryl Inj IVP 50 mg Q4H ROMAN Administration Formoterol Fumarate 20 mcg 12/29/17 08:00 12/29/17 08:46 Perforomist INH 20 mcg RTBID ROMAN Administration Polyethylene Glycol 17 gm 12/29/17 09:00 12/29/17 08:27 Miralax PO Not Given DAILY ROMAN Potassium Chloride 20 meq 12/29/17 08:00 12/29/17 16:10 K-Dur PO 20 meq BIDWM ROMAN Administration Prednisone 40 mg 12/29/17 03:00 12/29/17 08:25 Deltasone PO 40 mg DAILYWM ROMAN Administration Sodium Chloride 10 ml 12/28/17 23:46 12/29/17 14:14 Normal Saline Flush 0.9% IVP 10 ml PRN PRN Administration NEEDED PER PROVIDER ORDERS Sodium Chloride 10 ml 12/29/17 01:00 12/29/17 09:09 Normal Saline Flush 0.9% IVP 10 ml 0100,0900,1700 ROMAN Administration Spironolactone 25 mg 12/29/17 09:00 12/29/17 08:42 Aldactone PO 25 mg DAILY ROMAN Administration - Lab Result Fish Bone Diagrams: 12/29/17 04:45 12/29/17 04:45 - Additional Planning My Orders: My Active Orders 12/29/17 08:09 Echo Transthoracic Complete [ECHO] Routine 12/30/17 09:00 Lisinopril [Zestril] 5 mg PO DAILY Subjective - Subjective Patient Reports: Shortness of Breath Objective Vital Signs: Vital Signs - 24 hr 12/29/17 12/29/17 12/29/17 00:09 00:30 01:00 Temperature 37 C Heart Rate 95 Heart Rate [ 90 91 Monitoring electrodes] Respiratory 28 H 30 H 24 Rate Blood Pressure 134/89 H Blood Pressure 118/48 L 120/50 L [Right Brachial artery] O2 Saturation 99 95 95 12/29/17 12/29/17 12/29/17 01:41 02:00 03:00 Temperature Heart Rate 92 Heart Rate [ 94 89 Monitoring electrodes] Respiratory 27 H 28 H 23 Rate Blood Pressure Blood Pressure 117/60 123/56 L [Right Brachial artery] O2 Saturation 93 93 12/29/17 12/29/17 12/29/17 04:00 05:00 05:55 Temperature 37 C Heart Rate 82 Heart Rate [ 88 87 Monitoring electrodes] Respiratory 22 23 21 Rate Blood Pressure Blood Pressure 136/75 H 123/74 [Right Brachial artery] O2 Saturation 94 97 12/29/17 12/29/17 12/29/17 06:00 07:00 07:30 Temperature Heart Rate Heart Rate [ 83 85 78 Monitoring electrodes] Respiratory 21 19 22 Rate Blood Pressure Blood Pressure 112/53 L 131/75 H 131/79 H [Right Brachial artery] O2 Saturation 100 96 95 12/29/17 12/29/17 12/29/17 08:00 08:35 08:49 Temperature 36.6 C Heart Rate 88 Heart Rate [ 65 Monitoring electrodes] Respiratory 16 20 Rate Blood Pressure Blood Pressure 145/76 H [Right Brachial artery] O2 Saturation 96 12/29/17 12/29/17 12/29/17 09:30 09:39 10:15 Temperature Heart Rate Heart Rate [ 100 97 88 Monitoring electrodes] Respiratory 21 22 24 Rate Blood Pressure Blood Pressure 111/67 111/67 134/70 H [Right Brachial artery] O2 Saturation 94 95 96 12/29/17 12/29/17 12/29/17 11:00 12:02 13:00 Temperature Heart Rate 97 Heart Rate [ 92 90 Monitoring electrodes] Respiratory 20 22 22 Rate Blood Pressure Blood Pressure 131/74 H 128/60 [Right Brachial artery] O2 Saturation 95 97 12/29/17 12/29/17 12/29/17 13:07 14:00 15:00 Temperature 36.9 C Heart Rate Heart Rate [ 87 93 85 Monitoring electrodes] Respiratory 24 22 23 Rate Blood Pressure Blood Pressure 115/57 L 117/78 131/75 H [Right Brachial artery] O2 Saturation 96 98 96 12/29/17 12/29/17 16:00 16:01 Temperature Heart Rate 82 Heart Rate [ 100 Monitoring electrodes] Respiratory 22 24 Rate Blood Pressure Blood Pressure 112/54 L [Right Brachial artery] O2 Saturation 98 Oxygen O2 Source Nasal cannula I&O (Last 24 Hrs): Intake and Output Totals x24h 12/27/17 12/28/17 12/29/17 23:59 23:59 23:59 Intake Total 2105 Output Total 2450 Balance -345 General: Mild distress, Other (Cushingoid appearing) HEENT: Mucous membr. moist/pink Neck: Other (Obese) Neuro: Non Focal Cardiovascular: Regular rate Respiratory: Breath sounds nml Abdomen: Other (Obese with pannus) Extremities: No edema - Results Results: Laboratory Results WBC 11.5 x10^3/uL (4.8-10.8) H 12/29/17 04:45 RBC 4.54 10^6/uL (4.20-5.40) 12/29/17 04:45 Hgb 15.0 g/dL (12.0-16.0) 12/29/17 04:45 Hct 44.8 % (37.0-47.0) 12/29/17 04:45 MCV 98.5 fL (81.0-99.0) 12/29/17 04:45 MCH 33.1 pg (27.0-31.0) H 12/29/17 04:45 MCHC 33.6 g/dL (32.0-36.0) 12/29/17 04:45 RDW 13.6 % (12.0-15.0) 12/29/17 04:45 Plt Count 208 10^3/uL (130-450) 12/29/17 04:45 MPV 8.8 fL (7.9-10.8) 12/29/17 04:45 Neut # (Auto) 9.8 10^3/uL (1.5-6.6) H 12/28/17 23:30 Lymph # (Auto) 2.8 10^3/uL (1.5-3.5) 12/28/17 23:30 [place] # (Auto) 0.8 10^3/uL (0.0-1.0) 12/28/17 23:30 Eos # (Auto) 0.2 10^3/uL (0.0-0.7) 12/28/17 23:30 Baso # (Auto) 0.1 10^3/uL (0.0-0.1) 12/28/17 23:30 Absolute Nucleated RBC 0.00 x10^3/uL 12/28/17 23:30 Nucleated RBC % 0.0 /100WBC 12/28/17 23:30 Sodium 138 mmol/L (135-145) 12/29/17 04:45 Potassium 3.7 mmol/L (3.5-5.0) 12/29/17 04:45 Chloride 106 mmol/L (101-111) 12/29/17 04:45 Carbon Dioxide 24 mmol/L (21-32) 12/29/17 04:45 Anion Gap 8.0 (6-13) 12/29/17 04:45 BUN 14 mg/dL (6-20) 12/29/17 04:45 Creatinine 0.9 mg/dL (0.4-1.0) 12/29/17 04:45 Estimated GFR (MDRD) 65 (>89) L 12/29/17 04:45 Glucose 249 mg/dL (70-100) H 12/29/17 04:45 Glycated Hemoglobin 7.0 % (4.6-6.2) H 12/29/17 04:45 Estim Average Glucose 154 (70-100) H 12/29/17 04:45 Calcium 9.4 mg/dL (8.5-10.3) 12/29/17 04:45 Phosphorus 2.9 mg/dL (2.5-4.6) 12/29/17 04:45 Magnesium 1.9 mg/dL (1.7-2.8) 12/29/17 04:45 Total Bilirubin 0.3 mg/dL (0.2-1.0) 12/28/17 23:30 AST 25 IU/L (10-42) 12/28/17 23:30 ALT 22 IU/L (10-60) 12/28/17 23:30 Alkaline Phosphatase 87 IU/L (42-121) 12/28/17 23:30 Total Creatine Kinase 98 IU/L (22-269) 12/28/17 23:30 CK-MB (CK-2) 3.2 ng/mL (0.6-6.3) 12/28/17 23:30 Troponin I < 0.04 ng/mL (<0.49) 12/28/17 23:30 B-Natriuretic Peptide 77 pg/mL (5-100) 12/29/17 04:45 Total Protein 6.4 g/dL (6.7-8.2) L 12/28/17 23:30 Albumin 3.5 g/dL (3.2-5.5) 12/28/17 23:30 Globulin 2.9 g/dL (2.1-4.2) 12/28/17 23:30 Albumin/Globulin Ratio 1.2 (1.0-2.2) 12/28/17 23:30 Lipase 35 U/L (22-51) 12/28/17 23:30 - Procedures Procedures: Procedures ESOPHAGOGASTRODUODENOSCOPY [EGD] W/CLOSED BIOPSY (11/29/13) MANUAL RUPT JOINT ADHES (04/27/14) TOTAL KNEE REPLACEMENT (06/16/14)
[2017-12-29] MEDS ORDERED: SODIUM CHLORIDE FLUSH 0.9% 10 ML SYRINGE IVP PRN (20:00)
[2017-12-29] MEDS ORDERED: MORPHINE 2 MG/ML SYRINGE IVP PRN (20:40)
[2017-12-29] MEDS: ENOXAPARIN 100 MG/ML SYRINGE SUBQ SCH ×2 (20:51→21:14)
[2017-12-29] MEDS ORDERED: NITROGLYCERIN 2% PASTE TOP SCH (21:00)
[2017-12-29] MEDS ORDERED: METOPROLOL TARTRATE 25 MG TABLET PO SCH (21:00)
[2017-12-29] MEDS ORDERED: ATORVASTATIN 40 MG TABLET PO SCH (21:00)
[2017-12-29] MEDS ORDERED: ALTEPLASE 100 MG VIAL ONE (21:22)
[2017-12-29] MEDS ORDERED: ALTEPLASE 100 MG in WATER FOR INJECTION,STERILE 100 ML IV ONE (21:39)
--- NOTE | 2017-12-29 21:46 | Discharge Plan ---
Discharge Plan Disposition: 02 Transfer Acute Care Hosp Condition: Critical Diet: Cardiac Activity Restrictions: Activity as Tolerated Shower Restrictions: No Driving Restrictions: No No Smoking: If you smoke, Please STOP! Call for help.
--- NOTE | 2017-12-29 21:50 | DISCHARGE SUMMARY ---
Discharge Summary Admit Date: 12/29/17 Discharge Date: 12/29/17 Discharging Provider: Dhruv Will DO Primary Care Provider: John Cedillo Code Status: Attempt Resuscitation Condition at Discharge: Critical Discharge Disposition: 02 Transfer Acute Care Hosp Discharge Facility Name: [facility] - DIAGNOSES Admission Diagnoses: 1. Anaphylactic reaction 2. Diastolic congestive heart failure with preserved left ventricular function , [place] Heart Association class II 3. COPD 4. Morbid obesity 5. Coronary artery disease Discharge Diagnoses with Status of Each Condition: 1. Acute myocardial infarction, left anterior descending. The patient will be transferred out via medevac helicopter to [facility] in [place]. She has been started on TPA, has been given 1 mg/kg of Lovenox, has been started on metoprolol, given supplemental oxygen, Nitropaste, and her symptoms have resolved. Dr. Reyes, hog tender manager front office, has accepted her. 2. Anaphylactic reaction- The patient appears to have had an anaphylactic reaction to bee sting about 24 hours ago. This is resolved. 3. Diastolic congestive heart failure with preserved left ventricular function , [place] Heart Association class II- There are no signs of acute exacerbation of CHF at this time. 4. COPD- The patient had been having an oxygen saturation in the mid to high 90s on 3 L of oxygen however we increased this 1 she showed signs of the myocardial infarction. She is not showing any signs of acute exacerbation of the COPD at this time. 5. Morbid obesity. - HPI History of Present Illness: Mrs. Ester Benavides is a very pleasant 52-year-old woman with an extensive past medical history significant for chronic bronchitis/COPD, coronary artery disease with 4 myocardial infarctions, and congestive heart failure. 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 This evening, around 10 PM the patient was stung by a bee on her left arm. She had 2 epi-pens at home (with questionable potency) which she took but these failed to relieve her shortness of breath and so she called 911 and was brought to the hospital via EMS. On the way the patient received another dose of epinephrine, and she received a fourth dose in the emergency department which seemed to finally stop her anaphylactic reaction. In the ED the patient's vital signs were stable, however she was very hypoxic without supplemental oxygen and desaturated to the 80s when she was off of supplemental oxygen for just a few minutes. Because her blood pressure kept dropping a central line was placed in the patient's external jugular by the emergency department physician. After the fourth dose of epinephrine the patient's blood pressure stabilized and her wheezing abated. At this time we will admit the patient to the intensive care unit on telemetry and monitor her oxygen saturation rate carefully. She will have around-the- clock Benadryl and glucocorticoids started and we will have epinephrine available should she begin to experience respiratory distress. We will address her comorbidities and when she is stabilized transfer her to the medical floor in anticipation of discharge. - HOSPITAL COURSE Hospital Course: Patient was admitted from the emergency room to the intensive care unit because of her anaphylactic reaction. Her breathing improved and she was able to be on just a nasal cannula when she arrived to the intensive care unit and her oxygen saturation remained in in the mid to high 90s. She continued to slowly improve until around 8 PM when she began to have chest pain. A 12-lead EKG showed ST segment elevations in leads V2 through V5 and she was diagnosed with a left anterior descending myocardial infarction. Dr. Reyes in [facility] , the hog tender on-call, was presented the case and accepted her, directing us to start her on alteplase and to have her airlifted over. - ALLERGIES Allergies/Adverse Reactions: Allergies Allergy/AdvReac Type Severity Reaction Status Date / Time codeine [Codeine] Allergy Severe Swelling/Hi Verified 12/28/17 22:36 ves erythromycin base Allergy Severe Anaphylaxis Verified 12/28/17 22:36 [Erythromycin Base] gabapentin Allergy Severe Anaphylaxis Verified 12/28/17 22:36 Latex, Natural Rubber Allergy Severe Blisters Verified 12/28/17 22:36 pamabrom [From Midol] Allergy Severe Respiratory Verified 12/28/17 22:36 pyrilamine maleate * Allergy Severe Respiratory Verified 12/28/17 22:36 [From Midol] shellfish derived Allergy Severe Anaphylaxis Verified 12/28/17 22:36 venom-honey bee Allergy Severe Anaphylaxis Verified 12/28/17 22:36 [bee venom (honey bee)] chlorhexidine Allergy Intermediate Rash Verified 12/28/17 22:36 ondansetron Allergy Respiratory Verified 12/28/17 22:36 piperacillin [From Zosyn] AdvReac Rash Verified 09/10/17 15:59 tazobactam [From Zosyn] AdvReac Rash Verified 09/10/17 15:59 CLR AdvReac Severe Respiratory Uncoded 12/24/15 12:14 - MEDICATIONS Home Medications: Ambulatory Orders Medication Instructions Recorded Confirmed Lisinopril [Zestril] 5 mg PO DAILY #30 tablet 02/15/17 12/29/17 Spironolactone [Aldactone] 25 mg PO DAILY #30 tablet 02/15/17 12/29/17 Albuterol Sulfate [Proair Hfa 2 puffs INH Q4H PRN 09/10/17 12/29/17 Inhaler] Albuterol 2.5 mg INH DAILY 12/29/17 12/29/17 Atorvastatin [Lipitor] 20 mg PO QPM tablet 12/29/17 Beclomethasone Dipropionate [Qvar 2 puffs INH TID 12/29/17 12/29/17 Redihaler] Budesonide [Pulmicort] 0.5 mg INH RTBID neb 12/29/17 Formoterol Fumarate [Perforomist] 20 mcg INH RTBID neb 12/29/17 Furosemide 20 mg PO DAILY 12/29/17 12/29/17 Ipratropium/Albuterol Sulfate 3 ml INH BID PRN 12/29/17 12/29/17 [Iprat-Albut 0.5-3(2.5) mg/3 ml] Metoprolol Tartrate [Lopressor] 25 mg PO BID tablet 12/29/17 guaiFENesin/CODEINE [Robitussin AC] 5 ml PO Q6H PRN udc 12/29/17 - PHYSICAL EXAM AT DISCHARGE General Appearance: positive: Alert, Mild distress Eyes Bilateral: positive: Normal inspection, PERRL, EOMI, No lid inflammation, Conjunctivae nml, No scleral icterus ENT: positive: ENT inspection nml, Pharynx nml, No signs of dehydration Neck: positive: Nml inspection, Thyroid nml, No JVD, Trachea midline. negative : Thyromegaly Respiratory: positive: Chest non-tender, No respiratory distress, Breath sounds nml. negative: Wheezes, Rales, Rhonchi Cardiovascular: positive: Regular rate & rhythm, No murmur, No gallop, Extrasystoles Peripheral Pulses: positive: 1+ Abdomen: positive: Non-tender, No organomegaly, Nml bowel sounds, No distention. negative: Guarding, Rebound Back: positive: Nml inspection. negative: CVA tenderness (R), CVA tenderness (L ) Skin: positive: Color nml, No rash, Warm, Dry. negative: Cyanosis Extremities: positive: Non-tender, Full ROM, Nml appearance, No pedal edema Neurologic/Psychiatric: positive: Oriented x3, CN's nml (2-12), Motor nml, Sensation nml, Mood/affect nml - LABS Result Diagrams: 12/29/17 04:45 12/29/17 04:45 - FOLLOW UP Follow Up: The patient should follow-up with her primary care physician and with a hog tender on discharge. - TIME SPENT Time Spent in Discharge (Minutes): 60
[2017-12-29 22:25] VITALS: BP 126/68
[2017-12-29] MEDS ORDERED: SODIUM CHLORIDE 0.9% 1,000 ML IV ONE (22:27)
[2017-12-30] MEDS ORDERED: LISINOPRIL 5 MG TABLET PO SCH (09:00)
== END 2017-12-29 23:00 | disposition short-term general hospital (02) | DRG 917 ==
LOC: EDUNIT# → ED 22:34 → ICU 23:47
PROVIDERS: ADMIT Hospitalist; ATTEND Internal Medicine
PROC: 02HV33Z Insertion of Infusion Device into Superior Vena Cava, Percutaneous Approach (ICD-10-PCS; principal; 2017-12-29)
DX: T63.441A Toxic effect of venom of bees, accidental (unintentional), initial encounter (principal); I21.02 ST elevation (STEMI) myocardial infarction involving left anterior descending coronary artery; T78.2XXA Anaphylactic shock, unspecified, initial encounter; I50.32 Chronic diastolic (congestive) heart failure; Z68.42 Body mass index [BMI] 45.0-49.9, adult; J44.9 Chronic obstructive pulmonary disease, unspecified; Z87.891 Personal history of nicotine dependence; E66.01 Morbid (severe) obesity due to excess calories; I25.2 Old myocardial infarction
CPT/HCPCS: 36415; 71045; 80048; 80053; 82550; 82553; 83036; 83690; 83735; 83880; 84100; 84484; 85025; 85027; 87150; 93005; 93306; 94640; 96372; 96374; 99284; 99291

== ENCOUNTER 2018-05-30 08:55 | Outpatient (CLI) | payer OTHER, MEDICARE ==
[2018-05-30 12:23] LABS: HGB - HEMOGLOBIN 16.6 g/dL (12.0-16.0); MEAN CORPUSCULAR HEMOGLOBIN 32.6 pg (27.0-31.0); MEAN CORPUSCULAR HGB CONC 33.8 g/dL (32.0-36.0); MEAN CORPUSCULAR VOLUME 96.4 fL (81.0-99.0); MEAN PLATELET VOLUME 8.9 fL (7.9-10.8); RED BLOOD COUNT 5.1 10^6/uL (4.20-5.40); RED CELL DISTRIBUTION WIDTH 13.5 % (12.0-15.0); WHITE BLOOD COUNT 10.3 x10^3/uL (4.8-10.8)
[2018-05-30 12:49] LABS: CALCIUM 9.3 mg/dL (8.5-10.3); CREATININE 0.7 mg/dL (0.4-1.0)
== END 2018-05-30 23:59 | disposition home or self-care (01) ==
LOC: LAB.WCP 08:55
PROVIDERS: ATTEND Family Medicine
DX: J44.1 Chronic obstructive pulmonary disease with (acute) exacerbation (principal)
CPT/HCPCS: 36415; 80048; 83880; 85027

== ENCOUNTER 2018-07-09 15:13 | Outpatient (CLI) | payer OTHER, MEDICARE ==
--- NOTE | 2018-07-09 16:32 | XRAY Report ---
Reason: ANKLE JOINT PAIN, LEFT Procedure Date: 07/09/2018 Accession Number: [id number] / [id number] Procedure: WCP - Ankle 2 View LT CPT Code: FULL RESULT: EXAM: LEFT ANKLE RADIOGRAPHY EXAM DATE: 07/09/2018 03:36 PM. CLINICAL HISTORY: ANKLE JOINT PAIN, LEFT. COMPARISON: None available. TECHNIQUE: 2 views. FINDINGS: Bones: There is a very thin sclerotic density projecting at the lateral mortise clear space on the AP projection, which may represent a subtle fracture. Bones are otherwise intact and normally aligned. Degenerative calcaneal spurring along the plantar surface. Joints: No joint effusion. Mild narrowing of the tibiotalar joint space. Soft Tissues: Diffuse soft tissue swelling, lateral more than medial. IMPRESSION: Diffuse soft tissue swelling, lateral more than medial. Possible acute avulsion fracture involving the distal lateral malleolus, as described above. RADIA
--- NOTE | 2018-07-09 16:40 | XRAY Report ---
Reason: WRIST JOINT PAIN, RIGHT LEFT Procedure Date: 07/09/2018 Accession Number: [id number] / [id number] Procedure: WCP - Wrist 3 View BILAT CPT Code: FULL RESULT: EXAM: BILATERAL WRIST RADIOGRAPHY EXAM DATE: 07/09/2018 03:36 PM. CLINICAL HISTORY: WRIST JOINT PAIN, RIGHT LEFT. COMPARISON: WRIST 4 VIEW LT 08/07/2015 11:57 AM. TECHNIQUE: 4 views each. FINDINGS: Bones: The bones are osteopenic. No acute fracture or dislocation visualized. Small lucencies in the right carpal bones, which may represent subchondral cysts. Joints: Moderate to severe degenerative changes at the first carpometacarpal joint bilaterally, left more than right. There is a 4 mm subchondral cyst in the base of the left first metacarpal. Soft Tissues: Unremarkable. IMPRESSION: Osteopenia. No acute fracture or dislocation visualized. RADIA
== END 2018-07-09 15:14 | disposition home or self-care (01) ==
LOC: DI.WCP 15:13
PROVIDERS: ATTEND Family Medicine
DX: M25.472 Effusion, left ankle (principal); M19.072 Primary osteoarthritis, left ankle and foot; M18.0 Bilateral primary osteoarthritis of first carpometacarpal joints; M85.88 Other specified disorders of bone density and structure, other site; M85.68 Other cyst of bone, other site

== ENCOUNTER 2018-08-29 09:54 | Outpatient (CLI) | payer OTHER, MEDICARE ==
--- NOTE | 2018-08-29 10:33 | XRAY Report ---
Reason: ASTHMA WITH ACUTE EXACERBATION Procedure Date: 08/29/2018 Accession Number: [id number] / [id number] Procedure: WCP - Chest 2 View X-Ray CPT Code: 48020 FULL RESULT: EXAM: CHEST RADIOGRAPHY EXAM DATE: 08/29/2018 10:09 AM. CLINICAL HISTORY: ASTHMA WITH ACUTE EXACERBATION. COMPARISON: CHEST 2 VIEW PA/LAT 05/30/2018 8:31 AM. TECHNIQUE: 2 views. FINDINGS: Lungs/Pleura: No significant abnormality. No change in tiny right upper lobe calcified granuloma. No acute consolidation. No hyperinflation. Mediastinum: Heart and mediastinal contours are unremarkable. Other: None. IMPRESSION: 1. Old granulomatous disease. 2. No acute cardiopulmonary abnormality. RADIA
== END 2018-08-29 09:55 | disposition home or self-care (01) ==
LOC: DI.WCP 09:54
PROVIDERS: ATTEND Family Medicine
DX: J45.901 Unspecified asthma with (acute) exacerbation (principal)
CPT/HCPCS: 71046

== ENCOUNTER 2018-09-17 14:46 | Emergency (ER) | payer OTHER, MEDICARE ==
--- NOTE | 2018-09-17 14:54 | ED Physician Documentation ---
PD HPI LOWER EXT INJURY - Stated complaint Stated Complaint: FALL - History obtained from History obtained from: Patient, EMS - History of Present Illness PD HPI LOW EXT INJURY LOCATION: Left (She was standing on a bucket washing her car in the bucket collapsed and she fell down to her left. She injured the left wrist but more so the left leg and ankle. She is unable to walk or bear weight. The pain is severe. No head or neck injury. She has a history of IA, not diabetic.) Review of Systems Ten Systems: 10 systems reviewed and negative Constitutional: reports: Reviewed and negative Throat: reports: Reviewed and negative Cardiac: reports: Reviewed and negative Respiratory: reports: Reviewed and negative PD PAST MEDICAL HISTORY - Past Medical History Cardiovascular: Coronary artery disease, IA Respiratory: Asthma, Emphysema, Pneumonia, Shortness of breath, Sleep apnea, Other (chronic bronchitis) Endocrine/Autoimmune: None GI: GERD MEDIA MARKETING MANAGER: Ectopic : None, Frequency HEENT: Other Psych: Depression, Claustrophobia Musculoskeletal: Osteoarthritis, Chronic back pain Derm: None - Past Surgical History Past Surgical History: Yes General: Cholecystectomy, EGD Ortho: Knee replacement /MEDIA MARKETING MANAGER: Hysterectomy, Other Cardiovascular: Cardiac catheterization HEENT: Rhinoplasty - Present Medications Home Medications: Ambulatory Orders Medication Instructions Recorded Confirmed Lisinopril [Zestril] 5 mg PO DAILY #30 tablet 02/15/17 12/29/17 Spironolactone [Aldactone] 25 mg PO DAILY #30 tablet 02/15/17 12/29/17 Albuterol Sulfate [Proair Hfa 2 puffs INH Q4H PRN 09/10/17 12/29/17 Inhaler] Albuterol 2.5 mg INH DAILY 12/29/17 12/29/17 Atorvastatin [Lipitor] 20 mg PO QPM tablet 12/29/17 Beclomethasone Dipropionate [Qvar 2 puffs INH TID 12/29/17 12/29/17 Redihaler (80 mcg)] Budesonide [Pulmicort] 0.5 mg INH RTBID neb 12/29/17 Formoterol Fumarate [Perforomist] 20 mcg INH RTBID neb 12/29/17 Furosemide 20 mg PO DAILY 12/29/17 12/29/17 Ipratropium/Albuterol Sulfate 3 ml INH BID PRN 12/29/17 12/29/17 [Iprat-Albut 0.5-3(2.5) mg/3 ml] Metoprolol Tartrate [Lopressor] 25 mg PO BID tablet 12/29/17 guaiFENesin/CODEINE [Robitussin AC] 5 ml PO Q6H PRN udc 12/29/17 Oxycodone HCl/Acetaminophen 1 - 2 each PO Q6H PRN #14 tablet 09/17/18 [Percocet 5-325 mg Tablet] - Allergies Allergies/Adverse Reactions: Allergies Allergy/AdvReac Type Severity Reaction Status Date / Time codeine [Codeine] Allergy Severe Swelling/Hi Verified 09/17/18 14:54 ves erythromycin base Allergy Severe Anaphylaxis Verified 09/17/18 14:54 [Erythromycin Base] gabapentin Allergy Severe Anaphylaxis Verified 09/17/18 14:54 Latex, Natural Rubber Allergy Severe Blisters Verified 09/17/18 14:54 pamabrom [From Midol] Allergy Severe Respiratory Verified 09/17/18 14:54 pyrilamine maleate * Allergy Severe Respiratory Verified 09/17/18 14:54 [From Midol] shellfish derived Allergy Severe Anaphylaxis Verified 09/17/18 14:54 venom-honey bee Allergy Severe Anaphylaxis Verified 09/17/18 14:54 [bee venom (honey bee)] chlorhexidine Allergy Intermediate Rash Verified 09/17/18 14:54 ondansetron Allergy Respiratory Verified 09/17/18 14:54 piperacillin [From Zosyn] AdvReac Rash Verified 09/17/18 14:54 tazobactam [From Zosyn] AdvReac Rash Verified 09/17/18 14:54 CLR AdvReac Severe Respiratory Uncoded 09/17/18 14:54 - Social History Does the pt smoke?: No Smoking Status: Former smoker Does the pt drink ETOH?: Yes Does the pt have substance abuse?: No - Immunizations Immunizations are current?: No Immunizations: Other immun not current - POLST Patient has POLST: No POLST Status: Full Code PD ED PE NORMAL - Vitals Vital signs reviewed: Yes - General General: Alert and oriented X 3, No acute distress - HEENT HEENT: PERRL, EOMI - Neck Neck: Supple, no meningeal sign, No bony TTP - Cardiac Cardiac: RRR, No murmur - Respiratory Respiratory: No respiratory distress, Clear bilaterally - Abdomen Abdomen: Normal bowel sounds, Soft, Non tender - Back Back: No CVA TTP, No spinal TTP - Derm Derm: Normal color, Warm and dry - Extremities Extremities: Other (Mild tenderness to the left wrist but no deformity or limited range of motion. She has abrasions over the lateral part of the left calf and severe tenderness about the ankle and mild tenderness to the proximal fibula. The ankle is deformed and internally rotated. The foot is dusky with about 4 to 5-second capillary refill. I do not appreciate pedal pulses, I asked the nurse to Doppler for them. She is having decreased sensation of the lateral part of her foot and says she is insensate on the medial part of the foot.) - Neuro Neuro: Alert and oriented X 3, Normal speech Results - Vitals Vitals: Vital Signs - 24 hr 09/17/18 09/17/18 14:48 17:22 Temperature 36.9 C 36.8 C Heart Rate 90 108 H Respiratory 20 18 Rate Blood Pressure 103/37 L 98/68 O2 Saturation 98 95 Oxygen O2 Source [With Activity] Room air O2 Source Room air - Labs Labs: Laboratory Tests 09/17/18 09/17/18 09/17/18 13:13 13:13 13:13 WBC 15.3 H RBC 5.30 Hgb 16.6 H Hct 50.7 H MCV 95.6 MCH 31.4 H MCHC 32.8 RDW 13.8 Plt Count 256 MPV 8.9 Neut # (Auto) 12.6 H Lymph # (Auto) 1.6 [place] # (Auto) 0.9 Eos # (Auto) 0.0 Baso # (Auto) 0.1 Absolute Nucleated RBC 0.01 Nucleated RBC % 0.0 PT 11.4 INR 1.0 Sodium 140 Potassium 4.4 Chloride 99 L Carbon Dioxide 28 Anion Gap 13.0 BUN 23 H Creatinine 0.9 Estimated GFR (MDRD) 65 L Glucose 112 H Calcium 9.3 - Rads (name of study) Xray L wrist, tib/fib and ankle Radiology: EMP read contemporaneously (neg) PD MEDICAL DECISION MAKING - ED course Complexity details: re-evaluated patient (I am able to doppler pulses in the L foot.) ED course: 53-year-old woman with fall off of the bucket today. She was holding the ankle internally rotated and seems more like a ankle sprain after work-up than anything else. She felt like she could walk at that point. Departure - Departure Disposition: 01 Home, Self Care Clinical Impression: Left ankle sprain Qualifiers: Encounter type: initial encounter Involved ligament of ankle: anterior talofibular ligament Qualified Code(s): S93.492A - Sprain of other ligament of left ankle, initial encounter Left wrist sprain Qualifiers: Encounter type: initial encounter Qualified Code(s): S63.502A - Unspecified sprain of left wrist, initial encounter Condition: Good Record reviewed to determine appropriate education?: Yes Instructions: ED Sprain Ankle W X Ray Prescriptions: Oxycodone HCl/Acetaminophen [Percocet 5-325 mg Tablet] 1 - 2 each PO Q6H PRN #14 tablet PRN Reason: pain Comments: Call your doctor to arrange a follow-up appointment, make the next available appointment. In the interim, return anytime if worse or if new symptoms develop.
[2018-09-17] MEDS ORDERED: ONDANSETRON 4 MG/2 ML VIAL IVP STA (15:06)
[2018-09-17] MEDS ORDERED: HYDROmorphone 1 MG/ML CARPUJECT IVP STA ×2 (15:06→18:03)
[2018-09-17 15:24] LABS: BASOPHILS # (AUTO) 0.1 10^3/uL (0.0-0.1); BASOPHILS % (AUTO) 0.8 %; EOSINOPHILS % (AUTO) 0.2 %; HGB - HEMOGLOBIN 16.6 g/dL (12.0-16.0); LYMPHOCYTES # (AUTO) 1.6 10^3/uL (1.5-3.5); LYMPHOCYTES % (AUTO) 10.5 %; MEAN CORPUSCULAR HEMOGLOBIN 31.4 pg (27.0-31.0); MEAN CORPUSCULAR HGB CONC 32.8 g/dL (32.0-36.0); MEAN CORPUSCULAR VOLUME 95.6 fL (81.0-99.0); MEAN PLATELET VOLUME 8.9 fL (7.9-10.8); MONOCYTES # (AUTO) 0.9 10^3/uL (0.0-1.0); MONOCYTES % (AUTO) 6.2 %; NEUTROPHILS # (AUTO) 12.6 10^3/uL (1.5-6.6); NEUTROPHILS % (AUTO) 82.3 %; PLT - PLATELET COUNT 256 10^3/uL (130-450); RED CELL DISTRIBUTION WIDTH 13.8 % (12.0-15.0); WHITE BLOOD COUNT 15.3 x10^3/uL (4.8-10.8)
[2018-09-17 15:40] LABS: CALCIUM 9.3 mg/dL (8.5-10.3); CREATININE 0.9 mg/dL (0.4-1.0)
[2018-09-17 15:42] LABS: PT - PROTHROMBIN TIME 11.4 secs (9.9-12.6)
[2018-09-17] MEDS ORDERED: KETOROLAC 30 MG/ML VIAL IVP STA (16:04)
--- NOTE | 2018-09-17 16:59 | XRAY Report ---
Reason: leg injury Procedure Date: 09/17/2018 Accession Number: [id number] / [id number] Procedure: XR - Wrist 4 View LT CPT Code: FULL RESULT: EXAM: LEFT WRIST RADIOGRAPHY EXAM DATE: 09/17/2018 03:47 PM. CLINICAL HISTORY: Fall earlier today. Pain. COMPARISON: WRIST 3 VIEW BILAT 07/09/2018 3:16 PM. TECHNIQUE: 4 views. FINDINGS: Bones: Normal. No fractures or bone lesions. Joints: Stable moderate to marked degenerative changes consisting of moderate narrowing and grade 2 subluxation at the first carpometacarpal joint with a moderate amount of subcortical sclerosis and cyst formation. Stable 7 mm subcortical cyst and mild subcortical sclerosis involving the distal radial articulating surface. Soft Tissues: Normal. No soft tissue swelling. IMPRESSION: No acute bony abnormality. RADIA
--- NOTE | 2018-09-17 17:02 | XRAY Report ---
Reason: leg injury Procedure Date: 09/17/2018 Accession Number: [id number] / [id number] Procedure: XR - Tib/Fib LT CPT Code: FULL RESULT: EXAM: LEFT TIBIA/FIBULA RADIOGRAPHY EXAM DATE: 09/17/2018 03:47 PM. CLINICAL HISTORY: Fall today with lower leg pain. COMPARISON: Left ankle 07/09/2018. TECHNIQUE: 4 views. FINDINGS: Bones: Normal. No fracture or bone lesion. Joints: Prior left total knee replacement. Surgical hardware intact. Bones in anatomic alignment. No ankle nor knee effusion. Soft Tissues: Normal. No soft tissue swelling. IMPRESSION: No acute bony abnormality. RADIA
[2018-09-17 17:24] VITALS: BP 98/68
[2018-09-17] MEDS ORDERED: BACITRACIN OINT TOP STA (18:12)
== END 2018-09-17 18:32 | disposition home or self-care (01) ==
LOC: EDUNIT# → ED 14:46
DX: S93.492A Sprain of other ligament of left ankle, initial encounter (principal); S63.502A Unspecified sprain of left wrist, initial encounter; W17.89XA Other fall from one level to another, initial encounter; S80.812A Abrasion, left lower leg, initial encounter; I25.10 Atherosclerotic heart disease of native coronary artery without angina pectoris; Z87.891 Personal history of nicotine dependence
CPT/HCPCS: 36415; 73110; 73590; 73610; 80048; 85025; 85610; 96374; 96375; 96376; 99283; 99284; A9270; J1170

== ENCOUNTER 2018-09-17 19:10 | Outpatient (CLI) | payer OTHER, MEDICARE | END 2018-09-17 19:11 | disposition critical access hospital (66) | LOC: EMS 19:10 | PROVIDERS: ATTEND Surgery | DX: S89.92XA Unspecified injury of left lower leg, initial encounter (principal); W17.89XA Other fall from one level to another, initial encounter; Y92.008 Other place in unspecified non-institutional (private) residence as the place of occurrence of the external cause | CPT/HCPCS: A0425; A0429 ==

== ENCOUNTER 2019-01-10 08:00 | Outpatient (CLI) | payer OTHER, MEDICARE ==
[2019-01-10 12:15] LABS: BASOPHILS # (AUTO) 0.1 10^3/uL (0.0-0.1); BASOPHILS % (AUTO) 0.6 %; EOSINOPHILS # (AUTO) 0.2 10^3/uL (0.0-0.7); EOSINOPHILS % (AUTO) 2.3 %; HGB - HEMOGLOBIN 17.6 g/dL (12.0-16.0); LYMPHOCYTES # (AUTO) 2.4 10^3/uL (1.5-3.5); LYMPHOCYTES % (AUTO) 24.3 %; MEAN CORPUSCULAR HEMOGLOBIN 32.8 pg (27.0-31.0); MEAN CORPUSCULAR HGB CONC 33.4 g/dL (32.0-36.0); MEAN CORPUSCULAR VOLUME 98.1 fL (81.0-99.0); MEAN PLATELET VOLUME 10.8 fL (7.9-10.8); MONOCYTES # (AUTO) 0.9 10^3/uL (0.0-1.0); MONOCYTES % (AUTO) 9.2 %; NEUTROPHILS # (AUTO) 6.2 10^3/uL (1.5-6.6); PLT - PLATELET COUNT 249 10^3/uL (130-450); RED BLOOD COUNT 5.37 10^6/uL (4.20-5.40); RED CELL DISTRIBUTION WIDTH 13.3 % (12.0-15.0); WHITE BLOOD COUNT 9.8 x10^3/uL (4.8-10.8)
[2019-01-10 12:29] LABS: ALBUMIN 3.7 g/dL (3.2-5.5); ALBUMIN/GLOBULIN RATIO 1.1 (1.0-2.2); BILIRUBIN,TOTAL 0.6 mg/dL (0.2-1.0); CALCIUM 9.7 mg/dL (8.5-10.3); CREATININE 0.9 mg/dL (0.4-1.0)
== END 2019-01-10 09:45 | disposition home or self-care (01) ==
LOC: LAB.N 08:00
PROVIDERS: ATTEND Family Medicine
DX: J44.1 Chronic obstructive pulmonary disease with (acute) exacerbation (principal)
CPT/HCPCS: 36415; 80053; 85025

== ENCOUNTER 2019-01-24 10:51 | Outpatient (CLI) | payer OTHER, MEDICARE ==
--- NOTE | 2019-01-24 12:22 | XRAY Report ---
Reason: COPD Procedure Date: 01/24/2019 Accession Number: [id number] / [id number] Procedure: XRN - Chest 2 View X-Ray CPT Code: 91806 FULL RESULT: EXAM: CHEST RADIOGRAPHY EXAM DATE: 01/24/2019 11:11 AM. CLINICAL HISTORY: COPD. Acute exacerbation. Short of breath. COMPARISON: CHEST 2 VIEW 08/29/2018. TECHNIQUE: 2 views. FINDINGS: Lungs/Pleura: Subtle increased reticulonodular opacities throughout both lungs. No large consolidation or effusion. No pneumothorax. Mediastinum: Heart and mediastinal contours are unremarkable. Other: None. IMPRESSION: Increased reticulonodular densities throughout both lungs, suspicious for bronchopneumonia. Differential would include respiratory bronchiolitis and interstitial lung disease or possibly hypersensitivity pneumonitis in the appropriate clinical setting. Chest CT could be considered if indicated. RADIA
== END 2019-01-24 10:52 | disposition home or self-care (01) ==
LOC: DI.N 10:51
PROVIDERS: ATTEND Family Medicine
DX: R91.8 Other nonspecific abnormal finding of lung field (principal)
CPT/HCPCS: 71046

== ENCOUNTER 2019-01-31 13:15 | Outpatient (CLI) | payer OTHER, MEDICARE | END 2019-01-31 13:16 | disposition critical access hospital (66) | LOC: EMS 13:15 | PROVIDERS: ATTEND Surgery | DX: T63.441A Toxic effect of venom of bees, accidental (unintentional), initial encounter (principal); R06.00 Dyspnea, unspecified | CPT/HCPCS: A0425; A0427 ==

== ENCOUNTER 2019-01-31 13:31 | Inpatient (IN) | payer OTHER, MEDICARE ==
[2019-01-31] MEDS ORDERED: DEXAMETHASONE 10 MG/ML VIAL IVP STA (13:37)
[2019-01-31] MEDS ORDERED: IPRATROPIUM/ALBUTEROL 3 ML NEB INH STA ×2 (13:39→16:09)
--- NOTE | 2019-01-31 13:39 | ED Physician Documentation ---
PD HPI DYSPNEA - Stated complaint Stated Complaint: RESPIRATORY DISTRESS - History obtained from History obtained from: Patient, EMS - History of Present Illness Timing - onset: Today Timing - onset during: Rest Timing - duration: Minutes Timing - details: Abrupt onset, Still present Inciting event(s): Other (bee sting) Worsened by: Exertion Associated symptoms: Wheezing, Diaphoresis Similar symptoms before: Diagnosis (bee sting anaphylaxis) Recently seen: Not recently seen - Additional information Additional information: 53-year-old female with a history of bee sting reaction with anaphylaxis has been stung by a bee and she was unable to administer her own EpiPen and law enforcement was able to do this when they arrived at her home. Medics arrived shortly after and were able to infuse 50 mg of Benadryl intravenously and provide a DuoNeb treatment. The patient has some improvement in route to the hospital. Review of Systems Constitutional: denies: Fever Eyes: denies: Decreased vision Ears: denies: Ear pain Nose: denies: Congestion Throat: denies: Sore throat Cardiac: denies: Chest pain / pressure, Palpitations Respiratory: reports: Dyspnea (now). denies: Cough GI: reports: Nausea. denies: Abdominal Pain, Vomiting Skin: reports: Bite / sting PD PAST MEDICAL HISTORY - Past Medical History Cardiovascular: Coronary artery disease, PA Respiratory: Asthma, Emphysema, Pneumonia, Shortness of breath, Sleep apnea, Other (chronic bronchitis) Endocrine/Autoimmune: None GI: GERD PRODUCT SAFETY TECHNICIAN: Ectopic : None, Frequency HEENT: Other Psych: Depression, Claustrophobia Musculoskeletal: Osteoarthritis, Chronic back pain Derm: None - Past Surgical History Past Surgical History: Yes General: Cholecystectomy, EGD Ortho: Knee replacement /PRODUCT SAFETY TECHNICIAN: Hysterectomy, Other Cardiovascular: Cardiac catheterization HEENT: Rhinoplasty - Present Medications Home Medications: Ambulatory Orders Medication Instructions Recorded Confirmed Lisinopril [Zestril] 5 mg PO DAILY #30 tablet 02/15/17 12/29/17 Spironolactone [Aldactone] 25 mg PO DAILY #30 tablet 02/15/17 12/29/17 Albuterol Sulfate [Proair Hfa 2 puffs INH Q4H PRN 09/10/17 12/29/17 Inhaler] Albuterol 2.5 mg INH DAILY 12/29/17 12/29/17 Atorvastatin [Lipitor] 20 mg PO QPM tablet 12/29/17 Beclomethasone Dipropionate [Qvar 2 puffs INH TID 12/29/17 12/29/17 Redihaler (80 mcg)] Budesonide [Pulmicort] 0.5 mg INH RTBID neb 12/29/17 Formoterol Fumarate [Perforomist] 20 mcg INH RTBID neb 12/29/17 Furosemide 20 mg PO DAILY 12/29/17 12/29/17 Ipratropium/Albuterol Sulfate 3 ml INH BID PRN 12/29/17 12/29/17 [Iprat-Albut 0.5-3(2.5) mg/3 ml] Metoprolol Tartrate [Lopressor] 25 mg PO BID tablet 12/29/17 guaiFENesin/CODEINE [Robitussin AC] 5 ml PO Q6H PRN udc 12/29/17 Oxycodone HCl/Acetaminophen 1 - 2 each PO Q6H PRN #14 tablet 09/17/18 [Percocet 5-325 mg Tablet] - Allergies Allergies/Adverse Reactions: Allergies Allergy/AdvReac Type Severity Reaction Status Date / Time codeine [Codeine] Allergy Severe Swelling/Hi Verified 01/31/19 13:38 ves erythromycin base Allergy Severe Anaphylaxis Verified 01/31/19 13:38 [Erythromycin Base] gabapentin Allergy Severe Anaphylaxis Verified 01/31/19 13:38 Latex, Natural Rubber Allergy Severe Blisters Verified 01/31/19 13:38 pamabrom [From Midol] Allergy Severe Respiratory Verified 01/31/19 13:38 pyrilamine maleate * Allergy Severe Respiratory Verified 01/31/19 13:38 [From Midol] shellfish derived Allergy Severe Anaphylaxis Verified 01/31/19 13:38 venom-honey bee Allergy Severe Anaphylaxis Verified 01/31/19 13:38 [bee venom (honey bee)] chlorhexidine Allergy Intermediate Rash Verified 01/31/19 13:38 ondansetron Allergy Respiratory Verified 01/31/19 13:38 piperacillin [From Zosyn] AdvReac Rash Verified 01/31/19 13:38 tazobactam [From Zosyn] AdvReac Rash Verified 01/31/19 13:38 CLR AdvReac Severe Respiratory Uncoded 09/17/18 14:54 - Social History Does the pt smoke?: No Smoking Status: Former smoker Does the pt drink ETOH?: Yes Does the pt have substance abuse?: No - Immunizations Immunizations are current?: No Immunizations: Other immun not current - POLST Patient has POLST: No POLST Status: Full Code PD ED PE NORMAL - Vitals Vital signs reviewed: Yes (wide pulse pressure and tachypnea) - General General: Alert and oriented X 3, Well developed/nourished, Other (The patient is breathing rapidly and shallow She is able to talk 1-2 words at a time. ) - HEENT HEENT: Atraumatic, PERRL, EOMI - Neck Neck: Supple, no meningeal sign, No bony TTP - Cardiac Cardiac: RRR, No murmur - Respiratory Respiratory: Other (tachypnea with short shallow breaths with wheezes and rhonchi throughout) - Abdomen Abdomen: Soft, Non tender - Back Back: No CVA TTP, No spinal TTP - Derm Derm: Normal color, Warm and dry, No rash - Extremities Extremities: No deformity, No edema - Neuro Neuro: Alert and oriented X 3, alarm field technician 2-12 intact, No motor deficit, No sensory deficit, Normal speech Eye Opening: Spontaneous Motor: Obeys Commands Verbal: Oriented GCS Score: 15 - Psych Psych: Normal mood, Normal affect Results - Vitals Vitals: Vital Signs - 24 hr 01/31/19 01/31/19 01/31/19 13:33 13:42 13:56 Temperature 36.5 C Heart Rate 93 80 76 Respiratory 48 H 30 H 29 H Rate Blood Pressure 130/51 L 116/99 H O2 Saturation 94 93 01/31/19 01/31/19 01/31/19 14:04 14:31 14:44 Temperature Heart Rate 77 85 80 Respiratory 27 H 34 H 27 H Rate Blood Pressure 105/58 L 111/56 L O2 Saturation 90 L 92 01/31/19 01/31/19 01/31/19 15:00 15:14 15:34 Temperature Heart Rate 78 83 89 Respiratory 35 H 26 H 26 H Rate Blood Pressure 97/57 L 117/58 L 126/72 O2 Saturation 91 L 90 L 91 L 01/31/19 01/31/19 01/31/19 15:54 16:00 16:30 Temperature Heart Rate 88 85 90 Respiratory 43 H 26 H 46 H Rate Blood Pressure 107/45 L 126/75 126/63 O2 Saturation 92 91 L 92 Oxygen O2 Source [] Room air O2 Source Nasal cannula - EKG (time done) 1455 Rate: Rate (enter#) (82) Rhythm: NSR, Other (PVC's) Intervals: RBBB Compare to prior EKG: Changed from prior EKG (SPT 12-28-17 QRS has widened and the voltage has increased. ) Computer interpretation: Disagree with computer (I do not see ventricular pre- excitation there is LVH with strain ) - Labs Labs: Laboratory Tests 01/31/19 01/31/19 01/31/19 15:12 15:12 15:12 WBC RBC Hgb Hct MCV MCH MCHC RDW Plt Count MPV Neut # (Auto) Lymph # (Auto) [place] # (Auto) Eos # (Auto) Baso # (Auto) Absolute Nucleated RBC Nucleated RBC % Sodium 140 Potassium 3.7 Chloride 104 Carbon Dioxide 25 Anion Gap 11.0 BUN 17 Creatinine 0.9 Estimated GFR (MDRD) 65 L Glucose 108 H Calcium 9.6 Total Bilirubin 0.7 AST 16 ALT 18 Alkaline Phosphatase 72 Troponin I High Sens 13.9 B-Natriuretic Peptide 95 Total Protein 7.0 Albumin 3.9 Globulin 3.1 Albumin/Globulin Ratio 1.3 Lipase 35 01/31/19 15:33 WBC 15.7 H RBC 4.94 Hgb 16.1 H Hct 48.6 H MCV 98.4 MCH 32.6 H MCHC 33.1 RDW 13.6 Plt Count 188 MPV 10.1 Neut # (Auto) 13.2 H Lymph # (Auto) 1.6 [place] # (Auto) 0.6 Eos # (Auto) 0.1 Baso # (Auto) 0.1 Absolute Nucleated RBC 0.00 Nucleated RBC % 0.0 Sodium Potassium Chloride Carbon Dioxide Anion Gap BUN Creatinine Estimated GFR (MDRD) Glucose Calcium Total Bilirubin AST ALT Alkaline Phosphatase Troponin I High Sens B-Natriuretic Peptide Total Protein Albumin Globulin Albumin/Globulin Ratio Lipase - Rads (name of study) chest 1 veiw Radiology: Prelim report reviewed (Impression: New borderline cardiomegaly.), EMP read indepedently, See rad report Procedures - IVC sono (time) 1600 Bedside IVC sono: IVC measures (cm) (1.55), IVC collapsed c insp (cm) (complete), Dehydration (est <500ml deficit) PD MEDICAL DECISION MAKING - ED course Complexity details: reviewed old records, reviewed results, re-evaluated patient, considered differential, d/w patient ED course: 53-year-old female with a prior history of anaphylactic reaction to bee stings was stung by bees she is used an autoinjector at her home she is been given 50 mg of Benadryl intravenously in route to the hospital and a DuoNeb treatment she arrives to the emergency department with some improvement and she is still in respiratory distress. She is administered 10 mg of dexamethasone intravenously as well as a second DuoNeb treatment. She has continued improvement.The right side of her neck where she was stung by a bee is examined carefully with magnification for any remnant of a stinger and none is found. This patient with a history of COPD has had multiple admissions to the hospital for COPD and for bee sting allergy. She arrives short on air and she is treated with the decadron and multiple neb treatments as well as magnesium. She has slow steady improvement. Her record indicates she has had admission each time she arrives to the ED short of breath. She wants to go home today and we are working on achieving that and we are far from out goal. Respiratory therapist has recommended BIPAP and the patient has agreed. Departure - Departure Disposition: [facility] DC/Xfer Clinical Impression: Hypoxia Bee sting-induced anaphylaxis Qualifiers: Encounter type: initial encounter Injury intent: accidental or unintentional Qualified Code(s): T63.441A - Toxic effect of venom of bees, accidental (unintentional), initial encounter
--- NOTE | 2019-01-31 14:08 | XRAY Report ---
Reason: dyspnea Procedure Date: 01/31/2019 Accession Number: [id number] / [id number] Procedure: XR - Chest 1 View X-Ray CPT Code: 54521 FULL RESULT: EXAM: CHEST RADIOGRAPHY EXAM DATE: 01/31/2019 01:45 PM. CLINICAL HISTORY: COPD. Allergic reaction, dyspnea. COMPARISON: CHEST 2 VIEW 01/24/2019 11:12 AM. TECHNIQUE: 1 view. FINDINGS: Lungs/Pleura: No focal opacities evident. No pleural effusion. No pneumothorax. Mediastinum: New borderline cardiomegaly. No tracheal shift. Other: None. IMPRESSION: New borderline cardiomegaly. RADIA
[2019-01-31] MEDS ORDERED: ALBUTEROL NEB 2.5 MG/3 ML INH STA ×2 (14:24→15:05)
[2019-01-31] MEDS ORDERED: MAGNESIUM SULFATE 2 GRAM 2 GM/50 ML BAG IV ONE (14:44)
[2019-01-31 15:37] LABS: BASOPHILS # (AUTO) 0.1 10^3/uL (0.0-0.1); BASOPHILS % (AUTO) 0.4 %; EOSINOPHILS # (AUTO) 0.1 10^3/uL (0.0-0.7); EOSINOPHILS % (AUTO) 0.4 %; HGB - HEMOGLOBIN 16.1 g/dL (12.0-16.0); LYMPHOCYTES # (AUTO) 1.6 10^3/uL (1.5-3.5); LYMPHOCYTES % (AUTO) 10.1 %; MEAN CORPUSCULAR HEMOGLOBIN 32.6 pg (27.0-31.0); MEAN CORPUSCULAR HGB CONC 33.1 g/dL (32.0-36.0); MEAN CORPUSCULAR VOLUME 98.4 fL (81.0-99.0); MEAN PLATELET VOLUME 10.1 fL (7.9-10.8); MONOCYTES # (AUTO) 0.6 10^3/uL (0.0-1.0); MONOCYTES % (AUTO) 3.9 %; NEUTROPHILS # (AUTO) 13.2 10^3/uL (1.5-6.6); NEUTROPHILS % (AUTO) 84.4 %; PLT - PLATELET COUNT 188 10^3/uL (130-450); RED BLOOD COUNT 4.94 10^6/uL (4.20-5.40); RED CELL DISTRIBUTION WIDTH 13.6 % (12.0-15.0); WHITE BLOOD COUNT 15.7 x10^3/uL (4.8-10.8)
[2019-01-31 15:54] LABS: ALBUMIN 3.9 g/dL (3.2-5.5); ALBUMIN/GLOBULIN RATIO 1.3 (1.0-2.2); BILIRUBIN,TOTAL 0.7 mg/dL (0.2-1.0); CALCIUM 9.6 mg/dL (8.5-10.3); CREATININE 0.9 mg/dL (0.4-1.0)
[2019-01-31] MEDS ORDERED: SODIUM CHLORIDE 0.9% 1,000 ML IV ONE ×2 (16:09→20:56)
[2019-01-31] MEDS ORDERED: ONDANSETRON 4 MG/2 ML VIAL IVP PRN (16:50)
[2019-01-31] MEDS ORDERED: PROCHLORPERAZINE 10 MG/2 ML VIAL IVP PRN (17:58)
[2019-01-31 18:17] LABS: ABG PCO2 39 mmHg (34-45); ABG PH 7.35 (7.35-7.45); ABG PO2 72 mmHg (80-100)
[2019-01-31 18:18] LABS: ABG BASE EXCESS -4.2 mmol/L (-2.0-3.0); ABG HCO3 21.1 mmol/L (22.0-26.0); ABG OXYGEN SATURATION 95 % (94-98); ABG TCO2 22.3 MMOL/L (21.0-29.0); ALLEN TEST POSITIVE
[2019-01-31] MEDS: SODIUM CHLORIDE FLUSH 0.9% 10 ML SYRINGE IVP SCH (19:08)
[2019-01-31] MEDS: BUDESONIDE 0.5 MG/2 ML NEB INH SCH (19:17)
[2019-01-31] MEDS: IPRATROPIUM/ALBUTEROL 3 ML NEB INH PRN (19:18)
--- NOTE | 2019-01-31 19:57 | HISTORY & PHYSICAL EXAMINATION ---
DATE OF SERVICE: 01/31/2019 Physician: Loretta Coles MD PRIMARY CARE PROVIDER: CHIQUI Umaña and John Cedillo MD ADMITTING PROVIDER: Loretta Coles MD CHIEF COMPLAINT: Severe shortness of breath after a bee sting. HISTORY OF PRESENT ILLNESS: Obtained from [facility] and [facility]. Patient has BiPAP on and difficult for her to speak. Much of this is "yes" or "no" answers. Patient is a 53-year-old morbidly obese female who is 5 feet 3 inches tall and weighs 99.7 kg. She has a history of asthma with COPD, as well as congestive heart failure. Her first hospitalization for COPD was 01/2014, then 07/2015, then 10/2016, [id number], and 08/2017. She did have an episode of severe shortness of breath with a bee sting in 12/2017. She was seen in the emergency room and had chest pain. EKG showed ST changes, she received tPA, and she was transferred to [facility]. When the case was reviewed in [facility], they disagreed with the reading of ST elevation. Myoview scan was done. The patient is intermittently compliant with her medications. Finances have a large part to play with it. She was also diagnosed with congestive heart failure. Back in approximately 2013, she describes having a stress test where she was told that she had an ejection fraction of 45%. She had global hypokinesia at that time. When she was formally diagnosed with congestive heart failure in 03/2017 and treated with beta blockers, diuretics, SARAH inhibitors, her echocardiogram was with a normal ejection fraction. The most recent echocardiogram was 08/2017 where her ejection fraction was 55-60%, and she has severe left atrial enlargement. She has had intermittent atrial fibrillation in the past, but has not been felt to be chronically atrial fibrillation. She is followed by her primary care provider in the office, most recently seen by Dr. Cedillo, 01/24/2019, for her COPD. She had an exacerbation in December and was put on Levaquin and a 20-day care taper of prednisone. At that time, she was also to get a chest x-ray, but was unable to get to [place]. By 01/24/2019, she was still coughing, but feeling better. She also had a rash at that time with scaling. She is adamant that she has not smoked since 05/2017. Unfortunately today, she was stung by a bee. She was unable to administer her own Epi Pen and law enforcement was able to do this when they arrived at her home. EMS arrived shortly thereafter and gave her 50 mg of Benadryl IV and a DuoNeb treatment. She was having wheezing, sweats, and chest tightness. She had some improvement with this treatment while en route to the hospital. While in the emergency room, she was seen by Dr. Gunn, and received more albuterol, Decadron IV push, DuoNeb, magnesium, IV fluids in the form of normal saline. She was not responding, becoming more and more obtunded, and as such she was put on BiPAP. The patient is now admitted to ICU because of BiPAP protocol. Her x-ray does not show infiltrate. Mild congestive heart failure. Troponin high sensitivity is negative. BNP is 95. PAST MEDICAL HISTORY 1. Asthma, COPD as above. Numerous hospitalizations as elucidated above. She has been referred to pulmonology. I am not quite sure why she has not followed through, although there is a note of pulmonary spirometry. 2. Congestive heart failure that appears to be diastolic by echo report, grade 1. The most severe was grade 2. Above history noted in history of present illness. 3. Morbid obesity. 4. Multiple bilateral knee surgeries. She had a left total knee replacement in 04/2014 and a right total knee replacement 06/2014. 5. Obstructive sleep apnea that is severe. She was noncompliant with the machine because he had broken for 2 years. Then, in the postoperative setting of her left total knee replacement, she had postoperative decompensation and required BiPAP in the ICU. She is very claustrophobic, so it is not clear if she is really using her machine right now. 6. Self diagnosed myocardial infarctions x4. However, a coronary angiogram in 04/2013 showed insignificant coronary artery disease. Again, the tPA given with 12/2017 admission. 7. Gastroesophageal reflux disease. She has had episodes of epigastric abdominal pain. An EGD was done 11/2013. She is treated usually with proton pump inhibitors and H2 blockers intermittently. 8. Depression with anxiety. 9. History of migraine headaches, treated with Elavil, but the medicine is poorly tolerated. 10. Recent fall with left lateral malleolar fracture. 11. Latent TB noted on her problem list from 2016. 12. Chronic neck and back pain treated with intermittent physical therapy, anti-inflammatories, Tylenol. 13. G6, P4-0-2-4. She has had a hysterectomy of only her uterus for cervical cancer. ALLERGIES 1. CODEINE CAUSES SWELLING AND HIVES. 2. ERYTHROMYCIN CAUSES ANAPHYLAXIS. 3. GABAPENTIN ANAPHYLAXIS. 4. LATEX CAUSES BLISTERS. 5. MIDOL CAUSES RESPIRATORY FAILURE. 6. EMESIS WITH PAMABROM AND PYRILAMINE. 7. SHELLFISH CAUSES ANAPHYLAXIS. 8. BEE STINGS CAUSE ANAPHYLAXIS. 9. CHLORHEXIDINE CAUSES A RASH 10. ZOFRAN CAUSES RESPIRATORY FAILURE. 11. PIPERACILLIN FROM ZOSYN AND TAZOBACTAM FROM ZOSYN CAUSES RASH. MEDICATIONS 1. Albuterol via nebulizer every 4 hours as needed. 2. ProAir handheld inhaler 2 puffs every 4 hours as needed. 3. Pulmicort via nebulizer t.i.d. 4. Epinephrine subcutaneous pen as needed. 5. Flonase nasal spray b.i.d. 6. Lasix 20 mg daily. 7. DuoNeb 3 mL via inhaler 4 times a day as needed. 8. Lactulose as needed. 9. Lisinopril 2.5 mg daily. 10. Spironolactone 25 mg daily. SOCIAL HISTORY: She lives with her in their own home. She states she is able to drive a car, do activities of daily living, do shopping, and cleaning house. She smoked anywhere from 1-2 packs per day since the age of 7. She has attempted to quit multiple times. In the medical record alone, she says she quit in 01/2014, 07/2015, 02/2017, and 08/2017. With today's visit, she tells me that she quit in 05/2017. She has no history of alcohol abuse. She currently only lives with her . A granddaughter came to live with her temporarily in 07/2016. Granddaughter was an inpatient psych unit in [place] for 10 months and came to live with her grandparents. Currently, granddaughter lives in her own apartment here in [place]. The patient denies any recreational substance abuse. FAMILY HISTORY: Mom has dementia, cardiac disease with coronary artery disease and arrhythmia, diabetes, hypertension. Dad has coronary artery disease, skin cancer, hypertension and diabetes. Of her siblings, one brother at age of 40 of MS. Two brothers have had myocardial infarctions. There is cancer and rheumatoid arthritis in the rest. Children are healthy. REVIEW OF SYSTEMS: Difficult to obtain. Her has already left. The patient is on BiPAP. Very difficult for her to converse with me. PHYSICAL EXAMINATION: VITAL SIGNS: In the ICU, she is seen with a temperature of 36.6, heart rate of 83, blood pressure 115/65, respirations anywhere from 25-30. She was high as 50 in the ER. In the ER, she was obtunded, and right now she is alert and answering my questions, at least trying to through the mask. She is 95% saturated on 30% FiO2 on the BiPAP. GENERAL: She is a short, stocky, severely obese, middle-aged female. On BiPAP. Looks her stated age. She is 5 feet 3 inches tall and weighs 99.79 kg. HEAD AND NECK: Unremarkable. She seems to have some nasal congestion from the BiPAP, but facial symmetry is intact. Speech is normal. Pupils equal, round and reactive. Neck is short statured. I do not feel any goiter. Difficult to assess for JVD. LUNGS: Coarse upper airway sounds from the BiPAP. Wheezing. Still a little tachypneic, but no use of accessory muscles. Respiratory therapy has been taking care of her nonstop from the ER to now, so she is tremendously improved with less obtundation, slower respiratory rate, but every time we take her off the BiPAP her respiratory rate starts increasing again. CARDIAC: Has a regular rate and rhythm. Difficult to assess for murmurs. ABDOMEN: Obese, soft, nontender. Normal bowel sounds. Unable to assess for organomegaly. EXTREMITIES: Cool. Trace edema. Ropey varicose veins of both calves. All of her toes have quite a bit of prominent rubor. She says her toes are always that color. Good dorsalis pedis pulses. Diffuse onychomycosis of the toenails. She has an interesting way of growing her finger nails. Her thumb and pinky finger of both hands have a severely elongated nail with the other nails cut short. She shrugs her shoulders and says that is just how she likes them. NEUROLOGIC: She appears to be alert, oriented to person, place and time. Is able to follow my commands. No focal deficits on strength testing with hand grasp, movement of arms and legs for me. LABORATORY DATA: Sodium 140, potassium 3.7, BUN 17, creatinine 0.9, random glucose 108. Troponin 13.8. BNP 95. Blood gas after she had been on BiPAP shows a pH of 7.35, pCO2 39, pO2 72, bicarb 21, base excess -1.4. Her respiratory rate is 16, FiO2 30, EPAP 5, IPAP 12. White cell count is 15.7, hemoglobin 16.1, hematocrit 48.6, platelets 188. Chest x-ray has new borderline cardiomegaly not seen on previous x-ray. ASSESSMENT/PLAN 1. Acute respiratory failure with hypoxia secondary to anaphylaxis. PLAN: -Inpatient stay. In review of the record, this patient usually stays anywhere from 2-5 days when she has acute chronic obstructive pulmonary disease exacerbation. -ATTESTATION: The patient will be discharged within 96 hours. -She has already received steroids in the emergency room and they will be continued here with Solu-Medrol q.6 hours. DuoNeb will be 4 times a day with albuterol being supplemental 2 hours p.r.n. -BiPAP to continue. ICU overnight. Hopefully, she will improve enough tomorrow morning that we can remove the BiPAP because she is so claustrophobic and anxious. 2. Chronic obstructive pulmonary disease exacerbation. Treatment as above. 3. Obstructive sleep apnea with risk of obtundation and respiratory failure. Again, on BiPAP. 4. Questionable congestive heart failure history. The echocardiogram from 2012 is unavailable. Even the sizer hand who saw this patient in consultation in 03/2017, had no access to the self reported congestive heart failure. Stress test done at the same time as that first echo was negative. She has been evaluated by cardiology as most recently as 12/2017 for the supposed elevation of ST segments resulting in tPA. Her most recent echocardiogram from 08/2017 shows an ejection fraction of 55-60%, left atrial enlargement. Her usual medication list in the past included spironolactone, Lasix, and metoprolol, as well as lisinopril. Plan: Her current medication lists have been reconciled, and she is on lisinopril 2.5 and spironolactone 25. Those will be resumed in the morning. Currently, she is not in acute failure. 5. Deep venous thrombosis prophylaxis with AVTAR chandler. 6. FULL CODE STATUS. TD: 01/31/2019 19:09 MTDD
[2019-01-31] MEDS ORDERED: METOPROLOL TARTRATE 25 MG TABLET PO SCH (21:00)
[2019-01-31] MEDS ORDERED: CHLORHEXIDINE GLUCONATE 15 ML UDC PO SCH (21:00)
[2019-01-31] MEDS: methylPREDNISolone SUCCINATE 125 MG/2 ML VIAL IVP SCH (22:36)
[2019-02-01 00:49] LABS: BILIRUBIN,URINE NEGATIVE (NEGATIVE); GLUCOSE, URINE (UA) >=1000 mg/dL (NEGATIVE); KETONES,URINE (UA) NEGATIVE (NEGATIVE); LEUKOCYTE ESTERASE, URINE NEGATIVE (NEGATIVE); NITRITE,URINE NEGATIVE (NEGATIVE); OCCULT BLOOD,URINE NEGATIVE (NEGATIVE); PH,URINE 5.5 PH (5.0-7.5); PROTEIN,URINE NEGATIVE (NEGATIVE); UROBILINOGEN,URINE 0.2 (NORMAL) E.U./dL (NORMAL)
[2019-02-01 00:52] LABS: BACTERIA,URINE None Seen /HPF (None Seen); CLARITY,URINE CLEAR (CLEAR); RBC,URINE None Seen /HPF (0-5); SQUAMOUS EPITHELIAL CELL,UR RARE Squamous (<= Few)
[2019-02-01] MEDS: SODIUM CHLORIDE FLUSH 0.9% 10 ML SYRINGE IVP SCH ×4 (04:37→23:52)
[2019-02-01 04:49] LABS: BASOPHILS % (AUTO) 0.1 %; LYMPHOCYTES # (AUTO) 0.6 10^3/uL (1.5-3.5); LYMPHOCYTES % (AUTO) 4.2 %; MEAN CORPUSCULAR HEMOGLOBIN 31.8 pg (27.0-31.0); MEAN CORPUSCULAR HGB CONC 32.3 g/dL (32.0-36.0); MEAN CORPUSCULAR VOLUME 98.6 fL (81.0-99.0); MEAN PLATELET VOLUME 10.5 fL (7.9-10.8); MONOCYTES # (AUTO) 0.2 10^3/uL (0.0-1.0); MONOCYTES % (AUTO) 1.2 %; NEUTROPHILS # (AUTO) 13.8 10^3/uL (1.5-6.6); NEUTROPHILS % (AUTO) 93.8 %; PLT - PLATELET COUNT 205 10^3/uL (130-450); RED BLOOD COUNT 5.03 10^6/uL (4.20-5.40); RED CELL DISTRIBUTION WIDTH 13.9 % (12.0-15.0); WHITE BLOOD COUNT 14.7 x10^3/uL (4.8-10.8)
[2019-02-01 04:59] LABS: CALCIUM 9.7 mg/dL (8.5-10.3); CREATININE 0.8 mg/dL (0.4-1.0)
[2019-02-01] MEDS: methylPREDNISolone SUCCINATE 125 MG/2 ML VIAL IVP SCH (06:20)
[2019-02-01] MEDS: PANTOPRAZOLE 40 MG VIAL IVP SCH (06:20)
[2019-02-01] MEDS: BUDESONIDE 0.5 MG/2 ML NEB INH SCH ×2 (08:10→19:14)
[2019-02-01] MEDS: IPRATROPIUM/ALBUTEROL 3 ML NEB INH PRN (08:10)
[2019-02-01] MEDS ORDERED: LISINOPRIL 5 MG TABLET PO SCH (09:00)
[2019-02-01] MEDS ORDERED: FUROSEMIDE 20 MG TABLET PO SCH (09:00)
[2019-02-01] MEDS ORDERED: SPIRONOLACTONE 25 MG TABLET PO SCH (09:00)
[2019-02-01] MEDS ORDERED: POLYETHYLENE GLYCOL 3350 17 GM PACKET PO SCH (09:00)
[2019-02-01 09:15] LABS: HB2 TOTAL 16.8 g/dL; HEMOGLOBIN A1C 0.78 g/dL; HEMOGLOBIN A1C % 6.4 % (4.6-6.2)
[2019-02-01] MEDS: ACETAMINOPHEN 325 MG TABLET PO PRN ×2 (09:24→23:55)
[2019-02-01] MEDS: SODIUM CHLORIDE FLUSH 0.9% 10 ML SYRINGE IVP PRN ×2 (09:28→15:07)
--- NOTE | 2019-02-01 10:28 | PROVIDER PROGRESS NOTE ---
Subjective - Prog Note Date Prog Note Date: 02/01/19 Prog Note Time: 10:26 - Subjective Pt reports feeling: Improved Subjective: she has been off of BiPAP since 6 am. Resp rate was in 30's all night at best. Still mildly tachypneic. If speaks gets more sob. Granddaughter at bedside and patient is on phone until I can get to her. Current Medications - Current Medications Current Medications: Active Medications Acetaminophen (Tylenol) 650 mg PO Q4HR PRN PRN Reason: Pain 1 to 4 Last Admin: 02/01/19 09:24 Dose: 650 mg Albuterol () 2.5 mg INH RTQ4H PRN PRN Reason: Wheezing Albuterol/Ipratropium (Duoneb) 3 ml INH Q4HR PRN PRN Reason: Wheezing Last Admin: 02/01/19 08:10 Dose: 3 ml Budesonide (Pulmicort) 0.5 mg INH RTBID ROMAN Last Admin: 02/01/19 08:10 Dose: 0.5 mg Furosemide (Lasix) 20 mg PO DAILY [facility] Last Admin: 02/01/19 08:39 Dose: 20 mg Insulin Aspart (Novolog) 1 - 9 unit SUBQ 0800,1200,1700,2100 [facility]; Protocol Lisinopril (Zestril) 5 mg PO DAILY [facility] Last Admin: 02/01/19 08:39 Dose: 5 mg Methylprednisolone (Solu-Medrol (40mg Vial)) 80 mg IVP TID ROMAN Oxycodone HCl (Roxicodone) 5 mg PO Q4HR PRN PRN Reason: Pain 5 to 7 Pantoprazole Sodium (Protonix) 40 mg IVP QDAC [facility] Last Admin: 02/01/19 06:20 Dose: 40 mg Polyethylene Glycol (Miralax) 17 gm PO DAILY [facility] Last Admin: 02/01/19 08:45 Dose: 17 gm Prochlorperazine Edisylate (Compazine Inj) 10 mg IVP Q4HR PRN PRN Reason: Nausea / Vomiting Sodium Chloride (Normal Saline Flush 0.9%) 10 ml IVP PRN PRN PRN Reason: NEEDED PER PROVIDER ORDERS Last Admin: 02/01/19 09:28 Dose: 10 ml Sodium Chloride (Normal Saline Flush 0.9%) 10 ml IVP 0100,0900,1700 [facility] Last Admin: 02/01/19 09:25 Dose: Not Given Spironolactone (Aldactone) 25 mg PO DAILY [facility] Last Admin: 02/01/19 08:39 Dose: 25 mg Albuterol Sulfate [Proair Hfa Inhaler] 2 puffs INH Q4H PRN 09/10/17 Albuterol 2.5 mg INH Q4H PRN 12/29/17 Furosemide 20 mg PO DAILY 12/29/17 Budesonide [Pulmicort] 0.5 mg INH TID 01/31/19 EPINEPHrine [Epinephrine] 0.3 mg IM PRN PRN 01/31/19 Fluticasone [Flonase] 1 sprays CLARISA BID 01/31/19 Ipratropium/Albuterol [Duoneb] 3 ml INH QID PRN 01/31/19 Lactulose [Constulose] 20 g PO Q4H PRN 01/31/19 Lisinopril 2.5 mg PO DAILY 01/31/19 Objective - Vital Signs/Intake & Output Reviewed Vital Signs: Yes Vital Signs: Vital Signs Temp Pulse Pulse Resp BP BP Pulse Ox 02/01/19 10:00 98 25 H 110/86 H 97 02/01/19 09:00 97 25 H 124/78 94 02/01/19 08:10 78 24 02/01/19 08:00 36.7 C 80 24 117/69 98 02/01/19 07:00 90 23 114/66 96 Intake & Output: Intake & Output 01/29/19 01/30/19 01/31/19 02/01/19 23:59 23:59 23:59 23:59 Intake Total 1885 3157 Output Total 350 1800 Balance 1535 1357 - Objective General Appearance: positive: Alert, Mild distress, Other (plethoric appearance. Her face, body is redish hued. Blanches with touch.) Eyes Bilateral: positive: PERRL, EOMI ENT: positive: Pharynx nml Respiratory: positive: Wheezes, Rhonchi, Other (still tachypneia but no use of acessory muscles) Cardiovascular: positive: Regular rate & rhythm. negative: Gallop/S4, Friction rub Abdomen: positive: Non-tender, Nml bowel sounds, No distention. negative: Guarding, Rebound Skin: positive: Warm, Dry, Other (rubor diffusely) Extremities: positive: Full ROM, Pedal edema (1+ edema of skin of thighs, upper calves where there is no compression hose), Other (large ropey varicose veins of legs,) Neurologic/Psychiatric: positive: Oriented x3, CN's nml (2-12), Motor nml - Lab Results Fish Bones: 02/01/19 04:25 02/01/19 04:25 Other Labs: Lab Results x24hrs 02/01/19 02/01/19 02/01/19 Range/Units 04:25 04:25 04:25 WBC 14.7 H (4.8-10.8) x10^3/uL RBC 5.03 (4.20-5.40) 10^6/uL Hgb 16.0 (12.0-16.0) g/dL Hct 49.6 H (37.0-47.0) % MCV 98.6 (81.0-99.0) fL MCH 31.8 H (27.0-31.0) pg MCHC 32.3 (32.0-36.0) g/dL RDW 13.9 (12.0-15.0) % Plt Count 205 (130-450) 10^3/uL MPV 10.5 (7.9-10.8) fL Neut # (Auto) 13.8 H (1.5-6.6) 10^3/uL Lymph # (Auto) 0.6 L (1.5-3.5) 10^3/uL [place] # (Auto) 0.2 (0.0-1.0) 10^3/uL Eos # (Auto) 0.0 (0.0-0.7) 10^3/uL Baso # (Auto) 0.0 (0.0-0.1) 10^3/uL Absolute Nucleated RBC 0.00 x10^3/uL Nucleated RBC % 0.0 /100WBC Bld Gas Analysis Time Sample Site ABG pH (7.35-7.45) ABG pCO2 (34-45) mmHg ABG pO2 (80-100) mmHg ABG HCO3 (22.0-26.0) mmol/L ABG Total CO2 (21.0-29.0) MMOL/L ABG O2 Saturation (94-98) % ABG Base Excess (-2.0-3.0) mmol/L Elio Test Respiration Rate b/min O2 Delivery Device FiO2 EPAP cmH2O IPAP cmH2O Sodium 143 (135-145) mmol/L Potassium 4.5 (3.5-5.0) mmol/L Chloride 111 (101-111) mmol/L Carbon Dioxide 23 (21-32) mmol/L Anion Gap 9.0 (6-13) BUN 16 (6-20) mg/dL Creatinine 0.8 (0.4-1.0) mg/dL Estimated GFR (MDRD) 74 L (>89) Glucose 220 H (70-100) mg/dL Glycated Hemoglobin 6.4 H (4.6-6.2) % Estim Average Glucose 137 H (70-100) Calcium 9.7 (8.5-10.3) mg/dL Total Bilirubin (0.2-1.0) mg/dL AST (10-42) IU/L ALT (10-60) IU/L Alkaline Phosphatase (42-121) IU/L Troponin I High Sens (2.3-14.8) pg/mL B-Natriuretic Peptide (5-100) pg/mL Total Protein (6.7-8.2) g/dL Albumin (3.2-5.5) g/dL Globulin (2.1-4.2) g/dL Albumin/Globulin Ratio (1.0-2.2) Lipase (22-51) U/L Urine Color Urine Clarity (CLEAR) Urine pH (5.0-7.5) PH Ur Specific [place] (1.002-1.030) Urine Protein (NEGATIVE) mg/dL Urine Glucose (UA) (NEGATIVE) mg/dL Urine Ketones (NEGATIVE) mg/dL Urine Occult Blood (NEGATIVE) Urine Nitrite (NEGATIVE) Urine Bilirubin (NEGATIVE) Urine Urobilinogen (NORMAL) E.U./dL Ur Leukocyte Esterase (NEGATIVE) Urine RBC (0-5) /HPF Urine WBC (0-5) /HPF Ur Squamous Epith Cells (<= Few) Urine Bacteria (None Seen) /HPF Urine Culture Comments Nasal Screen MRSA (PCR) (NEGATIVE) 02/01/19 01/31/19 01/31/19 Range/Units 00:15 18:07 17:55 WBC (4.8-10.8) x10^3/uL RBC (4.20-5.40) 10^6/uL Hgb (12.0-16.0) g/dL Hct (37.0-47.0) % MCV (81.0-99.0) fL MCH (27.0-31.0) pg MCHC (32.0-36.0) g/dL RDW (12.0-15.0) % Plt Count (130-450) 10^3/uL MPV (7.9-10.8) fL Neut # (Auto) (1.5-6.6) 10^3/uL Lymph # (Auto) (1.5-3.5) 10^3/uL [place] # (Auto) (0.0-1.0) 10^3/uL Eos # (Auto) (0.0-0.7) 10^3/uL Baso # (Auto) (0.0-0.1) 10^3/uL Absolute Nucleated RBC x10^3/uL Nucleated RBC % /100WBC Bld Gas Analysis Time 1807 Sample Site LEFT RADIAL ABG pH 7.35 (7.35-7.45) ABG pCO2 39 (34-45) mmHg ABG pO2 72 L (80-100) mmHg ABG HCO3 21.1 L (22.0-26.0) mmol/L ABG Total CO2 22.3 (21.0-29.0) MMOL/L ABG O2 Saturation 95 (94-98) % ABG Base Excess -4.2 L (-2.0-3.0) mmol/L Elio Test POSITIVE Respiration Rate 16 b/min O2 Delivery Device BiPAP FiO2 30.00 EPAP 5 cmH2O IPAP 12 cmH2O Sodium (135-145) mmol/L Potassium (3.5-5.0) mmol/L Chloride (101-111) mmol/L Carbon Dioxide (21-32) mmol/L Anion Gap (6-13) BUN (6-20) mg/dL Creatinine (0.4-1.0) mg/dL Estimated GFR (MDRD) (>89) Glucose (70-100) mg/dL Glycated Hemoglobin (4.6-6.2) % Estim Average Glucose (70-100) Calcium (8.5-10.3) mg/dL Total Bilirubin (0.2-1.0) mg/dL AST (10-42) IU/L ALT (10-60) IU/L Alkaline Phosphatase (42-121) IU/L Troponin I High Sens (2.3-14.8) pg/mL B-Natriuretic Peptide (5-100) pg/mL Total Protein (6.7-8.2) g/dL Albumin (3.2-5.5) g/dL Globulin (2.1-4.2) g/dL Albumin/Globulin Ratio (1.0-2.2) Lipase (22-51) U/L Urine Color YELLOW Urine Clarity CLEAR (CLEAR) Urine pH 5.5 (5.0-7.5) PH Ur Specific [place] 1.010 (1.002-1.030) Urine Protein NEGATIVE (NEGATIVE) mg/dL Urine Glucose (UA) >=1000 H (NEGATIVE) mg/dL Urine Ketones NEGATIVE (NEGATIVE) mg/dL Urine Occult Blood NEGATIVE (NEGATIVE) Urine Nitrite NEGATIVE (NEGATIVE) Urine Bilirubin NEGATIVE (NEGATIVE) Urine Urobilinogen 0.2 (NORMAL) (NORMAL) E.U./dL Ur Leukocyte Esterase NEGATIVE (NEGATIVE) Urine RBC None Seen (0-5) /HPF Urine WBC 0-3 (0-5) /HPF Ur Squamous Epith Cells RARE Squamous (<= Few) Urine Bacteria None Seen (None Seen) /HPF Urine Culture Comments NOT INDICATED Nasal Screen MRSA (PCR) NEGATIVE (NEGATIVE) 01/31/19 01/31/19 01/31/19 Range/Units 15:33 15:12 15:12 WBC 15.7 H (4.8-10.8) x10^3/uL RBC 4.94 (4.20-5.40) 10^6/uL Hgb 16.1 H (12.0-16.0) g/dL Hct 48.6 H (37.0-47.0) % MCV 98.4 (81.0-99.0) fL MCH 32.6 H (27.0-31.0) pg MCHC 33.1 (32.0-36.0) g/dL RDW 13.6 (12.0-15.0) % Plt Count 188 (130-450) 10^3/uL MPV 10.1 (7.9-10.8) fL Neut # (Auto) 13.2 H (1.5-6.6) 10^3/uL Lymph # (Auto) 1.6 (1.5-3.5) 10^3/uL [place] # (Auto) 0.6 (0.0-1.0) 10^3/uL Eos # (Auto) 0.1 (0.0-0.7) 10^3/uL Baso # (Auto) 0.1 (0.0-0.1) 10^3/uL Absolute Nucleated RBC 0.00 x10^3/uL Nucleated RBC % 0.0 /100WBC Bld Gas Analysis Time Sample Site ABG pH (7.35-7.45) ABG pCO2 (34-45) mmHg ABG pO2 (80-100) mmHg ABG HCO3 (22.0-26.0) mmol/L ABG Total CO2 (21.0-29.0) MMOL/L ABG O2 Saturation (94-98) % ABG Base Excess (-2.0-3.0) mmol/L Elio Test Respiration Rate b/min O2 Delivery Device FiO2 EPAP cmH2O IPAP cmH2O Sodium (135-145) mmol/L Potassium (3.5-5.0) mmol/L Chloride (101-111) mmol/L Carbon Dioxide (21-32) mmol/L Anion Gap (6-13) BUN (6-20) mg/dL Creatinine (0.4-1.0) mg/dL Estimated GFR (MDRD) (>89) Glucose (70-100) mg/dL Glycated Hemoglobin (4.6-6.2) % Estim Average Glucose (70-100) Calcium (8.5-10.3) mg/dL Total Bilirubin (0.2-1.0) mg/dL AST (10-42) IU/L ALT (10-60) IU/L Alkaline Phosphatase (42-121) IU/L Troponin I High Sens 13.9 (2.3-14.8) pg/mL B-Natriuretic Peptide 95 (5-100) pg/mL Total Protein (6.7-8.2) g/dL Albumin (3.2-5.5) g/dL Globulin (2.1-4.2) g/dL Albumin/Globulin Ratio (1.0-2.2) Lipase (22-51) U/L Urine Color Urine Clarity (CLEAR) Urine pH (5.0-7.5) PH Ur Specific [place] (1.002-1.030) Urine Protein (NEGATIVE) mg/dL Urine Glucose (UA) (NEGATIVE) mg/dL Urine Ketones (NEGATIVE) mg/dL Urine Occult Blood (NEGATIVE) Urine Nitrite (NEGATIVE) Urine Bilirubin (NEGATIVE) Urine Urobilinogen (NORMAL) E.U./dL Ur Leukocyte Esterase (NEGATIVE) Urine RBC (0-5) /HPF Urine WBC (0-5) /HPF Ur Squamous Epith Cells (<= Few) Urine Bacteria (None Seen) /HPF Urine Culture Comments Nasal Screen MRSA (PCR) (NEGATIVE) 01/31/19 Range/Units 15:12 WBC (4.8-10.8) x10^3/uL RBC (4.20-5.40) 10^6/uL Hgb (12.0-16.0) g/dL Hct (37.0-47.0) % MCV (81.0-99.0) fL MCH (27.0-31.0) pg MCHC (32.0-36.0) g/dL RDW (12.0-15.0) % Plt Count (130-450) 10^3/uL MPV (7.9-10.8) fL Neut # (Auto) (1.5-6.6) 10^3/uL Lymph # (Auto) (1.5-3.5) 10^3/uL [place] # (Auto) (0.0-1.0) 10^3/uL Eos # (Auto) (0.0-0.7) 10^3/uL Baso # (Auto) (0.0-0.1) 10^3/uL Absolute Nucleated RBC x10^3/uL Nucleated RBC % /100WBC Bld Gas Analysis Time Sample Site ABG pH (7.35-7.45) ABG pCO2 (34-45) mmHg ABG pO2 (80-100) mmHg ABG HCO3 (22.0-26.0) mmol/L ABG Total CO2 (21.0-29.0) MMOL/L ABG O2 Saturation (94-98) % ABG Base Excess (-2.0-3.0) mmol/L Elio Test Respiration Rate b/min O2 Delivery Device FiO2 EPAP cmH2O IPAP cmH2O Sodium 140 (135-145) mmol/L Potassium 3.7 (3.5-5.0) mmol/L Chloride 104 (101-111) mmol/L Carbon Dioxide 25 (21-32) mmol/L Anion Gap 11.0 (6-13) BUN 17 (6-20) mg/dL Creatinine 0.9 (0.4-1.0) mg/dL Estimated GFR (MDRD) 65 L (>89) Glucose 108 H (70-100) mg/dL Glycated Hemoglobin (4.6-6.2) % Estim Average Glucose (70-100) Calcium 9.6 (8.5-10.3) mg/dL Total Bilirubin 0.7 (0.2-1.0) mg/dL AST 16 (10-42) IU/L ALT 18 (10-60) IU/L Alkaline Phosphatase 72 (42-121) IU/L Troponin I High Sens (2.3-14.8) pg/mL B-Natriuretic Peptide (5-100) pg/mL Total Protein 7.0 (6.7-8.2) g/dL Albumin 3.9 (3.2-5.5) g/dL Globulin 3.1 (2.1-4.2) g/dL Albumin/Globulin Ratio 1.3 (1.0-2.2) Lipase 35 (22-51) U/L Urine Color Urine Clarity (CLEAR) Urine pH (5.0-7.5) PH Ur Specific [place] (1.002-1.030) Urine Protein (NEGATIVE) mg/dL Urine Glucose (UA) (NEGATIVE) mg/dL Urine Ketones (NEGATIVE) mg/dL Urine Occult Blood (NEGATIVE) Urine Nitrite (NEGATIVE) Urine Bilirubin (NEGATIVE) Urine Urobilinogen (NORMAL) E.U./dL Ur Leukocyte Esterase (NEGATIVE) Urine RBC (0-5) /HPF Urine WBC (0-5) /HPF Ur Squamous Epith Cells (<= Few) Urine Bacteria (None Seen) /HPF Urine Culture Comments Nasal Screen MRSA (PCR) (NEGATIVE) Assessment/Plan - Problem List (1) Acute respiratory failure with hypoxia Impression: Has improved to the point that I can take her off BiPAP. However she is still with mild to moderate respiratory distress with wheezing, tachypnea and shortness of breath at rest. Plan: Leave her in the ICU. BiPAP cannot be used on MedSurg. She may need to go back on BiPAP during the day depending on how she improves. Or does not. (2) Anaphylactic reaction Impression: Resolved Qualifiers: Encounter type: subsequent encounter Qualified Code(s): T78.2XXD - Anaphyl actic shock, unspecified, subsequent encounter (3) COPD exacerbation Impression: In combination with her anaphylaxis, COPD flared up. This woman seems already be in the midst of a tapering steroid dose with her PCP. Just getting better from her previous episode treated with Levaquin for 10 days. I think the anaphylaxis and COPD it with caused the acute respiratory failure. Plan: Decrease Solu-Medrol from 125 mg IV every 6 hours to 80 mg IV every 6 hours and then tomorrow at 40 mg IV every 6 hours then p.o. Continue DuoNeb's 4 times a day. Continue albuterol every 2 hours as needed (4) Drug-induced hyperglycemia Impression: In the past, she has had an A1c that is above 6%. But she has not been formally diagnosed with diabetes. Steroids given with her COPD tapering in the outpatient setting, combined with the high-dose steroids in the inpatient setting, have resulted in hyperglycemia. A1c is 6.3%. Plan: Moderate dose SS insulin before meals. (5) JAVID (obstructive sleep apnea) Impression: not using her mask at home. In examining her, because of her plethoric appearance, She has a high hct. I suspect she has obesity hypoventilation as well with chronic hypoxia at home. I will attempt to educate the patient of this pathophysiology to see if it makes a difference for the mask use. But she does have claustrophobia and it makes it more difficult to stay compliant. (6) Chronic diastolic heart failure of unknown etiology Impression: on spironolactone and lisinopril. Check echo to compare to 12/2017 an see if pulmonary pressure are rising with JAVID/COPD/OHS
[2019-02-01] MEDS: oxyCODONE 5 MG TABLET PO PRN ×2 (11:33→20:25)
[2019-02-01] MEDS: INSULIN ASPART 300 UNIT/3 ML PEN SUBQ SCH ×3 (12:01→21:31)
[2019-02-01] MEDS: methylPREDNISolone SUCCINATE 40 MG/ML VIAL IVP SCH ×2 (15:06→21:32)
[2019-02-01] MEDS: ALBUTEROL NEB 2.5 MG/3 ML INH PRN (19:14)
[2019-02-02] MEDS: ALBUTEROL NEB 2.5 MG/3 ML INH PRN (00:04)
[2019-02-02 05:38] LABS: BASOPHILS % (AUTO) 0.1 %; HGB - HEMOGLOBIN 15.5 g/dL (12.0-16.0); LYMPHOCYTES # (AUTO) 0.7 10^3/uL (1.5-3.5); LYMPHOCYTES % (AUTO) 2.9 %; MEAN CORPUSCULAR HEMOGLOBIN 31.6 pg (27.0-31.0); MEAN CORPUSCULAR HGB CONC 32.1 g/dL (32.0-36.0); MEAN CORPUSCULAR VOLUME 98.6 fL (81.0-99.0); MEAN PLATELET VOLUME 10.7 fL (7.9-10.8); MONOCYTES # (AUTO) 0.9 10^3/uL (0.0-1.0); MONOCYTES % (AUTO) 3.8 %; NEUTROPHILS # (AUTO) 21.6 10^3/uL (1.5-6.6); NEUTROPHILS % (AUTO) 92.3 %; PLT - PLATELET COUNT 184 10^3/uL (130-450); RED CELL DISTRIBUTION WIDTH 14.2 % (12.0-15.0); WHITE BLOOD COUNT 23.5 x10^3/uL (4.8-10.8)
[2019-02-02 05:46] LABS: CALCIUM 9.6 mg/dL (8.5-10.3); CREATININE 0.7 mg/dL (0.4-1.0)
[2019-02-02] MEDS: methylPREDNISolone SUCCINATE 40 MG/ML VIAL IVP SCH (06:29)
[2019-02-02] MEDS: SODIUM CHLORIDE FLUSH 0.9% 10 ML SYRINGE IVP PRN (06:29)
[2019-02-02] MEDS: PANTOPRAZOLE 40 MG VIAL IVP SCH (06:29)
--- NOTE | 2019-02-02 07:22 | Discharge Plan ---
Discharge Plan Problem Reviewed?: Yes Disposition: 01 Home, Self Care Condition: Fair Diet: Regular Activity Restrictions: Activity as Tolerated Shower Restrictions: No Driving Restrictions: No Health Concerns: You came to our emergency room already in the midst of a recent tapering of steroids and antibiotics for acute worsening of your COPD. Then you were stung by a bee and had a reaction. You were brought in by ambulance with severe breathing problems due to the bee sting and your COPD. you required breathing support with a machine called BiPAP. Plan of Treatment: 1. We identified you as having body changes from chronic lack of oxygen and you may have 3 diseases at the same time from your weight and your emphysema. Obtructive Sleep Apnea, Obesity Hypoventilation Syndrome and COPD. 2. For the apnea, please have Dr. Interiano refer you to the sleep center and be fitted for a new mask. You already knew you had apnea when you lived in [place] but your machine broke years ago and you never got a new one. 3. For the Obesity hypoventilation syndrome, please have Dr. Interiano refer you for supervised exercise to the [facility] here at the hospital. Also get a consultation with a spray cementer for diet advice. 4. For the COPD, I am not changing your medicines at home. See Dr. Interiano in followup to get your lungs examined to make sure you are on the mend. As of yesterday, [facility] does not have your new senior computer specialist referral. They told me that you had a referral in 03/2017 and they called you 04/11/17 but you were not able to make an appointment. They tried to call you again but you never were able to get back to them. 5. For congestive heart failure, they were able to make an appointment for you 03/14/17 to see a Cider Maker but they discharged you from the practice when you cancelled your next two visits and was a no show for the 04/2017 visit. You explained that your Granddaughter made those appointments and you never knew about them. Please ask Dr. Interiano to re-refer you again for followup. If you would like, the [facility] has Cardiologists that [place] [facility]. That may be easier for you to see. Care Goals: 1. To try and lose 4 lbs a month 2. To walk 0.25 miles a day for the next week. 3. Make sure you take your emphysema meds. 4. To treat the above diseases so you can live a longer, more mobile life. Assessment: Patient will try to follow thru but [place] experience difficulty [place] No Smoking: If you smoke, Please STOP! Call for help. Follow-up with: CHACORTA INTERIANO MD [Primary Care Provider] -
[2019-02-02] MEDS: IPRATROPIUM/ALBUTEROL 3 ML NEB INH PRN (07:46)
[2019-02-02] MEDS: BUDESONIDE 0.5 MG/2 ML NEB INH SCH (07:46)
[2019-02-02 08:03] VITALS: BP 105/67
[2019-02-02] MEDS: oxyCODONE 5 MG TABLET PO PRN (08:09)
[2019-02-02] MEDS: INSULIN ASPART 300 UNIT/3 ML PEN SUBQ SCH (08:09)
--- NOTE | 2019-02-02 09:28 | DISCHARGE SUMMARY ---
Discharge Summary Condition at Discharge: Fair Discharge Disposition: 01 Home, Self Care - DIAGNOSES Discharge Diagnoses with Status of Each Condition: 1. Acute respiratory failure with hypoxia 2. Bee sting induced anaphylaxis 3. COPD exacerbation 4. Drug-induced hyperglycemia 5. Obstructive sleep apnea 6. History of congestive heart failure 7. [place] - ALLERGIES Allergies/Adverse Reactions: Allergies Allergy/AdvReac Type Severity Reaction Status Date / Time codeine [Codeine] Allergy Severe Swelling/Hi Verified 01/31/19 13:38 ves erythromycin base Allergy Severe Anaphylaxis Verified 01/31/19 13:38 [Erythromycin Base] gabapentin Allergy Severe Anaphylaxis Verified 01/31/19 13:38 Latex, Natural Rubber Allergy Severe Blisters Verified 01/31/19 13:38 pamabrom [From Midol] Allergy Severe Respiratory Verified 01/31/19 13:38 pyrilamine maleate * Allergy Severe Respiratory Verified 01/31/19 13:38 [From Midol] shellfish derived Allergy Severe Anaphylaxis Verified 01/31/19 13:38 venom-honey bee Allergy Severe Anaphylaxis Verified 01/31/19 13:38 [bee venom (honey bee)] chlorhexidine Allergy Intermediate Rash Verified 01/31/19 13:38 ondansetron Allergy Respiratory Verified 01/31/19 13:38 piperacillin [From Zosyn] AdvReac Rash Verified 01/31/19 13:38 tazobactam [From Zosyn] AdvReac Rash Verified 01/31/19 13:38 - MEDICATIONS Home Medications: Ambulatory Orders Medication Instructions Recorded Confirmed Spironolactone [Aldactone] 25 mg PO DAILY #30 tablet 02/15/17 01/31/19 Albuterol Sulfate [Proair Hfa 2 puffs INH Q4H PRN 09/10/17 01/31/19 Inhaler] Albuterol 2.5 mg INH Q4H PRN 12/29/17 01/31/19 Furosemide 20 mg PO DAILY 12/29/17 01/31/19 Budesonide [Pulmicort] 0.5 mg INH TID 01/31/19 01/31/19 EPINEPHrine [Epinephrine] 0.3 mg IM PRN PRN 01/31/19 01/31/19 Fluticasone [Flonase] 1 sprays CLARISA BID 01/31/19 01/31/19 Ipratropium/Albuterol [Duoneb] 3 ml INH QID PRN 01/31/19 01/31/19 Lactulose [Constulose] 20 g PO Q4H PRN 01/31/19 01/31/19 Lisinopril 2.5 mg PO DAILY 01/31/19 01/31/19 - LABS Result Diagrams: 02/02/19 05:10 02/02/19 05:10
--- NOTE | 2019-02-02 16:27 | DISCHARGE SUMMARY ---
Discharge Summary Admit Date: 01/31/19 Discharge Date: 02/02/19 Discharging Provider: Loretta Coles MD Primary Care Provider: Jaime Mckee MD Code Status: Attempt Resuscitation Condition at Discharge: Fair Discharge Disposition: 01 Home, Self Care - DIAGNOSES Discharge Diagnoses with Status of Each Condition: 1. Acute respiratory failure with hypoxia 2. Bee sting induced anaphylaxis 3. COPD exacerbation 4. Drug-induced hyperglycemia 5. Obstructive sleep apnea 6. History of congestive heart failure 7. [place] - HPI History of Present Illness: 53-year-old morbidly obese female who is 5 foot 3 inches tall and weighs 99.78 kg the presents with bee sting resulting in respiratory distress superimposed on a patient who has chronic COPD. She had just been seen by her primary care provider in the last month and was placed on a 10-day course of Levaquin as well as a 20-day course of tapering steroids. She says she is no longer on those. But she still having shortness of breath, coughing, and a little bit of wheezing. She was stung by bee. She is very allergic to bee stings. She already had an anaphylaxis admission in December 2017. For the same problem. She was unable to give her self EpiPen, law enforcement did it when they arrived on the scene. EMS arrived shortly thereafter and she received Benadryl and DuoNeb. She was having wheezing, sweats, chest tightness. She was transferred to our ER and received albuterol, Decadron, DuoNeb magnesium, IV fluids. She was not responding and becoming more and more obtunded, as such she was put on BiPAP. The first blood gas was not done until BiPAP at already been done. Dr. Lau am good however you so I have a lady that came in with severe septic shock yesterday and we attributed her septic shock to her ruptured appendix that was q uite massively adhesed with lots of pus in her belly so she got operated on last night she has been on multiple pressors IV fluids antibiotics and she is stable and that we are maintaining urine output but I was the surgeon was concerned that may be her hypotension and shock was out of proportion to the appendix and the appendicitis she is growing out gram-negative rods in her blood so I did try to find her note I did her troponins this morning her EKG looks normal so I was not impressed with that her initial troponin was 165 this morning and again over 161 and then 6 hours later her troponin is 1495 yes I got intubated she is amazingly alert appropriately able to communicate with us just cannot believe she is awake but she has she is 61 years old and let me go to her risk factors a lot of she is 61 female has high cholesterol and that set you okay just for my teaching purposes because I the supersensitive troponins have been just an annoyance week if troponins of 170 they are all positive but the patient clinically just does not message troponins this is a first time ever seen 1400 so went to the alumnae secretary get interested in supersensitive troponin level level is that okay we will defer off problem me know at our facility and has read her echo this was only done Monday through Monday we will have attack on Monday and Monday - CONSULTS | PROCEDURES Procedures: 1. Chest x-ray is with new borderline cardiomegaly. 2. Echocardiogram is limited. Underlying rhythm is atrial fibrillation. Severe left ventricular enlargement. Left ventricular wall thickness normal. Left ventricular ejection fraction moderately impaired with an ejection fraction of 35-40%. As compared to previous echo left ventricular systolic function is reduced left ventricular enlargement is progressed. Normal right particular systolic pressures at less than 35%. - HOSPITAL COURSE Hospital Course: Over the first 24 hours the patient responded well to BiPAP. She is kept in the ICU. Her initial respiratory rate was in the 50s and with BiPAP and steroid she was able to come down into 30s. Even off BiPAP, the patient maintains a high respiratory rate in the 20s. This is at baseline. COPD exacerbation was tr eated with steroids, duo nebs, albuterol. She had some drug-induced hyperglycemia. A1c was 6.3%. On physical examination I noticed quite a bit of plethora of her face chest arms and feet. My concern is a combination of obstructive sleep apnea with obesity hypoventilation syndrome and her COPD. She needs to do cardiopulmonary exercise, lose weight, and be compliant with her BiPAP. She had many reasons why she was not compliant with her cardiology or pulmonology visit. Most of it she laid at the feet of her granddaughter who is "a selfish" person. Apparently her granddaughter made many appointments for her without her knowledge. As such the patient was a no show with cardiology at [facility] and they have refused to see her any further. Pulmonology gave up trying to call her and make appointments. Patient says that she will try to make these appointments again. Transportation is an issue. I explained that she could at least see [facility] cardiology here at the [facility]. [place]. [place] is discharged on her same medication list without change. Strongly encouraged to make an appointment with the sleep lab to get a new sleep mask. Strongly encouraged to keep appointment with primary care provider to she can be referred to appropritate followup, especially pulmonology and cardiology. At discharge she is 5 foot 3 inches tall 99.79 kg. Temperature is 36.7 pulse is 64 blood pressure is 105/67 respirations 22 and 99% on room air. Morbidly obese plethoric female. Neck is short and thick and 2 difficult to assess for JVD. But no goiter palpable and no bruits audible. Lungs have coarse upper airway sounds. Both inspiratory and expiratory. No out right wheezing but she does have very distinct prolonged and exhalation phase. Regular rate and rhythm. Abdomen obese soft and nontender. Extremities without clubbing cyanosis or edema but deformed by onychomycosis of her toenails, and an interesting growth of thumb and fifth finger nails on both hands. - ALLERGIES Allergies/Adverse Reactions: Allergies Allergy/AdvReac Type Severity Reaction Status Date / Time codeine [Codeine] Allergy Severe Swelling/Hi Verified 01/31/19 13:38 ves erythromycin base Allergy Severe Anaphylaxis Verified 01/31/19 13:38 [Erythromycin Base] gabapentin Allergy Severe Anaphylaxis Verified 01/31/19 13:38 Latex, Natural Rubber Allergy Severe Blisters Verified 01/31/19 13:38 pamabrom [From Midol] Allergy Severe Respiratory Verified 01/31/19 13:38 pyrilamine maleate * Allergy Severe Respiratory Verified 01/31/19 13:38 [From Midol] shellfish derived Allergy Severe Anaphylaxis Verified 01/31/19 13:38 venom-honey bee Allergy Severe Anaphylaxis Verified 01/31/19 13:38 [bee venom (honey bee)] chlorhexidine Allergy Intermediate Rash Verified 01/31/19 13:38 ondansetron Allergy Respiratory Verified 01/31/19 13:38 piperacillin [From Zosyn] AdvReac Rash Verified 01/31/19 13:38 tazobactam [From Zosyn] AdvReac Rash Verified 01/31/19 13:38 - MEDICATIONS Home Medications: Ambulatory Orders Medication Instructions Recorded Confirmed Spironolactone [Aldactone] 25 mg PO DAILY #30 tablet 02/15/17 01/31/19 Albuterol Sulfate [Proair Hfa 2 puffs INH Q4H PRN 09/10/17 01/31/19 Inhaler] Albuterol 2.5 mg INH Q4H PRN 12/29/17 01/31/19 Furosemide 20 mg PO DAILY 12/29/17 01/31/19 Budesonide [Pulmicort] 0.5 mg INH TID 01/31/19 01/31/19 EPINEPHrine [Epinephrine] 0.3 mg IM PRN PRN 01/31/19 01/31/19 Fluticasone [Flonase] 1 sprays CLARISA BID 01/31/19 01/31/19 Ipratropium/Albuterol [Duoneb] 3 ml INH QID PRN 01/31/19 01/31/19 Lactulose [Constulose] 20 g PO Q4H PRN 01/31/19 01/31/19 Lisinopril 2.5 mg PO DAILY 01/31/19 01/31/19 - LABS Result Diagrams: 02/02/19 05:10 02/02/19 05:10
== END 2019-02-02 08:40 | disposition home or self-care (01) | DRG 915 ==
LOC: EDUNIT# → ED 13:31 → ICU 16:50 → MS2 02-01 15:56
PROVIDERS: ADMIT Specialist; ATTEND Specialist
DX: T78.2XXA Anaphylactic shock, unspecified, initial encounter (principal); J96.01 Acute respiratory failure with hypoxia; E66.2 Morbid (severe) obesity with alveolar hypoventilation; I50.32 Chronic diastolic (congestive) heart failure; J43.9 Emphysema, unspecified; T63.441A Toxic effect of venom of bees, accidental (unintentional), initial encounter; R23.2 Flushing; I48.91 Unspecified atrial fibrillation; I25.10 Atherosclerotic heart disease of native coronary artery without angina pectoris; K21.9 Gastro-esophageal reflux disease without esophagitis; F41.8 Other specified anxiety disorders; G43.909 Migraine, unspecified, not intractable, without status migrainosus; R76.11 Nonspecific reaction to tuberculin skin test without active tuberculosis; G89.29 Other chronic pain; M54.9 Dorsalgia, unspecified; M54.2 Cervicalgia; R73.9 Hyperglycemia, unspecified; T38.0X5A Adverse effect of glucocorticoids and synthetic analogues, initial encounter; F40.240 Claustrophobia; Z96.659 Presence of unspecified artificial knee joint; Y92.009 Unspecified place in unspecified non-institutional (private) residence as the place of occurrence of the external cause; Z68.39 Body mass index [BMI] 39.0-39.9, adult; Z79.51 Long term (current) use of inhaled steroids; Z87.891 Personal history of nicotine dependence; Z85.41 Personal history of malignant neoplasm of cervix uteri; Z91.19 Patient's noncompliance with other medical treatment and regimen
CPT/HCPCS: 36415; 36600; 71045; 80048; 80053; 81001; 82803; 83036; 83690; 83880; 84484; 85025; 87150; 93005; 93308; 94640; 94660; 96365; 96375; 99284; 99285; A9270; J7626; 87086

== ENCOUNTER 2019-03-15 09:11 | Outpatient (CLI) | payer OTHER, MEDICARE | END 2019-03-15 09:12 | disposition short-term general hospital (02) | LOC: EMS 09:11 | PROVIDERS: ATTEND Surgery | DX: R55 Syncope and collapse (principal); R09.89 Other specified symptoms and signs involving the circulatory and respiratory systems; M54.2 Cervicalgia ==

== ENCOUNTER 2019-03-29 13:13 | Outpatient (CLI) | payer OTHER, MEDICARE ==
[2019-03-29 18:54] LABS: HGB - HEMOGLOBIN 15.9 g/dL (12.0-16.0); MEAN CORPUSCULAR HEMOGLOBIN 31.7 pg (27.0-31.0); MEAN CORPUSCULAR HGB CONC 32.3 g/dL (32.0-36.0); MEAN CORPUSCULAR VOLUME 98.2 fL (81.0-99.0); RED BLOOD COUNT 5.02 10^6/uL (4.20-5.40); WHITE BLOOD COUNT 9.6 x10^3/uL (4.8-10.8)
[2019-03-29 19:05] LABS: CALCIUM 9.3 mg/dL (8.5-10.3); CREATININE 1.1 mg/dL (0.4-1.0)
== END 2019-03-29 23:59 ==
LOC: LAB.N 13:13
PROVIDERS: ATTEND Family Medicine
DX: I50.9 Heart failure, unspecified (principal)
CPT/HCPCS: 36415; 80048; 83880; 85027

== ENCOUNTER 2019-03-29 13:32 | Outpatient (CLI) | payer OTHER, MEDICARE ==
--- NOTE | 2019-03-30 15:47 | XRAY Report ---
Reason: CHF Procedure Date: 03/29/2019 Accession Number: [id number] / [id number] Procedure: XRN - Chest 2 View X-Ray CPT Code: 07852 Final Report FULL RESULT: EXAM: CHEST RADIOGRAPHY EXAM DATE: 03/29/2019 01:53 PM. CLINICAL HISTORY: Congestive heart failure. COMPARISON: CHEST 1 VIEW 01/31/2019 1:30 PM. TECHNIQUE: 2 views. FINDINGS: Lungs/Pleura: No alveolar consolidation or pleural effusion seen. Pulmonary vascular congestion. No pneumothorax. Mediastinum: Mild cardiomegaly. Aortic atherosclerosis. Other: None. IMPRESSION: 1. Cardiomegaly and pulmonary vascular congestion. RADIA
== END 2019-03-29 13:33 | disposition home or self-care (01) ==
LOC: DI.N 13:32
PROVIDERS: ATTEND Family Medicine
DX: I50.9 Heart failure, unspecified (principal); I51.7 Cardiomegaly
CPT/HCPCS: 36415; 71046; 80048; 83880; 85027

== ENCOUNTER 2019-04-19 08:00 | Outpatient (CLI) | payer OTHER, MEDICARE ==
[2019-04-19 18:32] LABS: MEAN CORPUSCULAR HEMOGLOBIN 32.3 pg (27.0-31.0); MEAN CORPUSCULAR HGB CONC 32.9 g/dL (32.0-36.0); MEAN CORPUSCULAR VOLUME 98.1 fL (81.0-99.0); MEAN PLATELET VOLUME 10.8 fL (7.9-10.8); RED BLOOD COUNT 5.27 10^6/uL (4.20-5.40); RED CELL DISTRIBUTION WIDTH 13.2 % (12.0-15.0); WHITE BLOOD COUNT 13.5 x10^3/uL (4.8-10.8)
[2019-04-19 19:02] LABS: CALCIUM 9.8 mg/dL (8.5-10.3)
== END 2019-04-19 23:59 | disposition home or self-care (01) ==
LOC: LAB.N 08:00
PROVIDERS: ATTEND Family Medicine
DX: I50.9 Heart failure, unspecified (principal)
CPT/HCPCS: 36415; 80048; 83880; 85027

== ENCOUNTER 2019-05-17 14:04 | Outpatient (CLI) | payer MEDICARE, OTHER ==
--- NOTE | 2019-05-20 09:16 | XRAY Report ---
Reason: COPD Procedure Date: 05/17/2019 Accession Number: [id number] / [id number] Procedure: XRN - Chest 2 View X-Ray CPT Code: 24924 Final Report FULL RESULT: EXAM: CHEST RADIOGRAPHY EXAM DATE: 05/17/2019 02:26 PM. CLINICAL HISTORY: COPD. Short of breath. COMPARISON: CHEST 2 VIEW 03/29/2019 2:00 PM. TECHNIQUE: 2 views. FINDINGS: Lungs/Pleura: Diffuse prominence of lung markings similar to previous study, with mild hyperexpansion and peribronchial cuffing. No localized infiltrate, consolidation, effusion, or pneumothorax. Mediastinum: Mild cardiomegaly, unchanged. Mild diffuse vascular fullness. Other: Degenerative changes. IMPRESSION: Cardiovascular fullness similar to previous study and other chronic findings. RADIA
== END 2019-05-17 14:05 | disposition home or self-care (01) ==
LOC: DI.N 14:04
PROVIDERS: ATTEND Family Medicine
DX: J44.9 Chronic obstructive pulmonary disease, unspecified (principal); I51.7 Cardiomegaly; I50.9 Heart failure, unspecified
CPT/HCPCS: 36415; 71046; 80048; 83880; 85027

== ENCOUNTER 2019-05-17 14:43 | Outpatient (CLI) | payer MEDICARE, OTHER ==
[2019-05-17 18:39] LABS: CALCIUM 9.7 mg/dL (8.5-10.3); CREATININE 1.3 mg/dL (0.4-1.0)
[2019-05-17 18:42] LABS: HGB - HEMOGLOBIN 17.1 g/dL (12.0-16.0); MEAN CORPUSCULAR HEMOGLOBIN 32.4 pg (27.0-31.0); MEAN CORPUSCULAR HGB CONC 33.6 g/dL (32.0-36.0); MEAN CORPUSCULAR VOLUME 96.6 fL (81.0-99.0); MEAN PLATELET VOLUME 10.3 fL (7.9-10.8); RED BLOOD COUNT 5.27 10^6/uL (4.20-5.40); RED CELL DISTRIBUTION WIDTH 13.2 % (12.0-15.0); WHITE BLOOD COUNT 16.2 x10^3/uL (4.8-10.8)
== END 2019-05-17 23:59 | disposition home or self-care (01) ==
LOC: LAB.N 14:43
PROVIDERS: ATTEND Family Medicine
DX: I50.9 Heart failure, unspecified (principal)
CPT/HCPCS: 36415; 80048; 83880; 85027

== ENCOUNTER 2019-06-26 09:26 | Outpatient (CLI) | payer MEDICARE, OTHER ==
[2019-06-26 12:14] LABS: BASOPHILS # (AUTO) 0.1 10^3/uL (0.0-0.1); BASOPHILS % (AUTO) 0.4 %; EOSINOPHILS # (AUTO) 0.1 10^3/uL (0.0-0.7); HGB - HEMOGLOBIN 16.4 g/dL (12.0-16.0); LYMPHOCYTES % (AUTO) 22.6 %; MEAN CORPUSCULAR HEMOGLOBIN 31.8 pg (27.0-31.0); MEAN CORPUSCULAR HGB CONC 32.7 g/dL (32.0-36.0); MEAN CORPUSCULAR VOLUME 97.3 fL (81.0-99.0); MEAN PLATELET VOLUME 10.6 fL (7.9-10.8); MONOCYTES % (AUTO) 7.4 %; NEUTROPHILS # (AUTO) 9.1 10^3/uL (1.5-6.6); NEUTROPHILS % (AUTO) 67.6 %; PLT - PLATELET COUNT 270 10^3/uL (130-450); RED BLOOD COUNT 5.15 10^6/uL (4.20-5.40); RED CELL DISTRIBUTION WIDTH 13.3 % (12.0-15.0); WHITE BLOOD COUNT 13.5 x10^3/uL (4.8-10.8)
[2019-06-26 12:41] LABS: HB2 TOTAL 16.4 g/dL; HEMOGLOBIN A1C 0.94 g/dL; HEMOGLOBIN A1C % 7.4 % (4.6-6.2)
[2019-06-26 12:53] LABS: ALBUMIN 3.8 g/dL (3.2-5.5); ALBUMIN/GLOBULIN RATIO 1.2 (1.0-2.2); ALKALINE PHOSPHATASE 76 IU/L (42-121); ALT ALANINE AMINOTRANSFERASE 26 IU/L (10-60); AST ASPARTATE AMINOTRANSFERASE 21 IU/L (10-42); BILIRUBIN,TOTAL 0.9 mg/dL (0.2-1.0); BUN - BLOOD UREA NITROGEN 18 mg/dL (6-20); CALCIUM 9.4 mg/dL (8.5-10.3); CARBON DIOXIDE - CO2 30 mmol/L (21-32); CHLORIDE 99 mmol/L (101-111); CHOLESTEROL 190 mg/dL; CREATININE 0.8 mg/dL (0.4-1.0); GFR - MDRD 74 (>89); GLUCOSE 141 mg/dL (70-100); HDL CHOLESTEROL 47 mg/dL; LDL CHOLESTEROL,CALCULATED 93 mg/dL; SODIUM 139 mmol/L (135-145); VLDL CHOLESTEROL 50 mg/dL
== END 2019-06-26 23:59 | disposition home or self-care (01) ==
LOC: LAB.N 09:26
PROVIDERS: ATTEND Family Medicine
DX: I49.9 Cardiac arrhythmia, unspecified (principal); R73.03 Prediabetes; J44.9 Chronic obstructive pulmonary disease, unspecified
CPT/HCPCS: 36415; 80053; 80061; 83036; 83721; 84443; 85025

== ENCOUNTER 2019-07-10 08:40 | Outpatient (CLI) | payer OTHER, MEDICARE ==
--- NOTE | 2019-07-10 16:05 | XRAY Report ---
Reason: COPD Procedure Date: 07/10/2019 Accession Number: [id number] / [id number] Procedure: XRN - Chest 2 View X-Ray CPT Code: 49962 Final Report FULL RESULT: EXAM: CHEST RADIOGRAPHY 2 views EXAM DATE: 07/10/2019 09:09 AM. CLINICAL HISTORY: Chronic obstructive pulmonary disease exacerbation. COMPARISON: PA and lateral chest on 05/17/2019. TECHNIQUE: PA and lateral views. FINDINGS: Lungs/Pleura: Normal vasculature. Linear opacity anterior to the right hilum, not present on the prior examination, and slight increase in density in the posterior inferior left lower lobe. Lungs otherwise appear unchanged. No pleural fluid or pneumothorax. Mediastinum: Mild cardiomegaly is unchanged. Otherwise normal mediastinal contours. Bones: Degenerative changes of the spine. Other: Right upper abdomen cholecystectomy clips. IMPRESSION: Small hazy opacity in the posterior inferior left lower lung consistent with a small region of atelectasis or pneumonia. Diskoid atelectasis anterior to the right hilum, not present on the prior examination. Cardiomegaly and other findings are unchanged. Recommend follow-up chest radiography in 2-3 weeks. RADIA
== END 2019-07-10 08:41 | disposition home or self-care (01) ==
LOC: DI.N 08:40
PROVIDERS: ATTEND Family Medicine
DX: J44.1 Chronic obstructive pulmonary disease with (acute) exacerbation (principal); J98.11 Atelectasis; I51.7 Cardiomegaly
CPT/HCPCS: 71046

== ENCOUNTER 2019-07-10 08:42 | Outpatient (CLI) | payer MEDICARE, OTHER ==
[2019-07-10 12:04] LABS: HGB - HEMOGLOBIN 15.2 g/dL (12.0-16.0); MEAN CORPUSCULAR HEMOGLOBIN 31.7 pg (27.0-31.0); MEAN CORPUSCULAR HGB CONC 32.3 g/dL (32.0-36.0); MEAN CORPUSCULAR VOLUME 98.1 fL (81.0-99.0); MEAN PLATELET VOLUME 10.9 fL (7.9-10.8); RED BLOOD COUNT 4.8 10^6/uL (4.20-5.40); RED CELL DISTRIBUTION WIDTH 13.2 % (12.0-15.0); WHITE BLOOD COUNT 8.8 x10^3/uL (4.8-10.8)
[2019-07-10 12:11] LABS: CREATININE 0.8 mg/dL (0.4-1.0)
== END 2019-07-10 23:59 | disposition home or self-care (01) ==
LOC: LAB.N 08:42
PROVIDERS: ATTEND Family Medicine
DX: I50.9 Heart failure, unspecified (principal)
CPT/HCPCS: 36415; 80048; 83880; 85027

== ENCOUNTER 2019-07-31 08:30 | Outpatient (CLI) | payer OTHER, MEDICARE | END 2019-07-31 08:31 | disposition critical access hospital (66) | LOC: EMS 08:30 | PROVIDERS: ATTEND Surgery | DX: R06.2 Wheezing (principal) | CPT/HCPCS: A0425; A0427 ==

== ENCOUNTER 2019-08-23 08:00 | Outpatient (CLI) | payer OTHER, MEDICARE ==
[2019-08-23 16:50] LABS: HGB - HEMOGLOBIN 16.1 g/dL (12.0-16.0); MEAN CORPUSCULAR HEMOGLOBIN 33.2 pg (27.0-31.0); MEAN CORPUSCULAR HGB CONC 33.6 g/dL (32.0-36.0); MEAN CORPUSCULAR VOLUME 98.8 fL (81.0-99.0); MEAN PLATELET VOLUME 10.6 fL (7.9-10.8); RED BLOOD COUNT 4.85 10^6/uL (4.20-5.40); RED CELL DISTRIBUTION WIDTH 12.2 % (12.0-15.0); WHITE BLOOD COUNT 10.6 x10^3/uL (4.8-10.8)
[2019-08-23 17:02] LABS: CALCIUM 9.1 mg/dL (8.5-10.3); CREATININE 0.9 mg/dL (0.4-1.0)
== END 2019-08-23 23:59 | disposition home or self-care (01) ==
LOC: LAB.WCP 08:00
PROVIDERS: ATTEND Family Medicine
DX: I50.9 Heart failure, unspecified (principal)
CPT/HCPCS: 36415; 80048; 83880; 85027

== ENCOUNTER 2019-09-24 08:57 | Outpatient (CLI) | payer OTHER, MEDICARE | END 2019-09-24 08:58 | disposition critical access hospital (66) | LOC: EMS 08:57 | PROVIDERS: ATTEND Surgery | DX: I46.9 Cardiac arrest, cause unspecified (principal); R55 Syncope and collapse | CPT/HCPCS: A0425; A0433 ==

== ENCOUNTER 2019-09-24 09:14 | Emergency (ER) | payer OTHER, MEDICARE ==
[2019-09-24] MEDS ORDERED: MAGNESIUM SULFATE 1 GM/2 ML VIAL IV ONE (09:15)
[2019-09-24] MEDS ORDERED: EPINEPHrine ABBOJECT 1 MG/10 ML SYRINGE IVP ONE (09:15)
[2019-09-24 09:55] LABS: ABG BASE EXCESS -20.5 mmol/L (-2.0-3.0); ABG PO2 56 mmHg (80-100); ALLEN TEST POSITIVE
[2019-09-24 09:58] LABS: ABG OXYGEN SATURATION 73 % (94-98); ABG PCO2 63 mmHg (34-45); ABG PH 6.94 (7.35-7.45)
[2019-09-24] MEDS: EPINEPHrine 4 MG in DEXTROSE 5% 246 ML IVP STA (10:02)
[2019-09-24] MEDS ORDERED: MIDAZOLAM 2 MG/2 ML VIAL ONE (10:03)
--- NOTE | 2019-09-24 10:03 | ED Physician Documentation ---
PD HPI CPR - Stated complaint Stated Complaint: CPR - History obtained from History obtained from: EMS - History of Present Illness Timing - onset: Enter time (0800), Today Timing - onset during: Rest Preceding symptoms: Unknown Contributing factors: Diabetes, Recent hospital/surgery, Other (COPD) Recently seen: Admitted (in July) Witnessed: Arrest witnessed Fall: No fall Bystander CPR: Bystander CPR EMS findings: Unresponsive, Apneic, Pulseless, V fib Treatment [employer] LAB[employer]ER: CPR, Defibrillated, Intubated, Epi, Amiodarone, Sodium Bicarb, IO Advanced directive: No advanced directive - Additional information Additional information: 54-year-old female with a history of COPD, Diastolic CHF, steroid-induced diabetes and a recent admission for pneumonia with latent TB was on her couch this morning when she was seen by her to collapse and he began CPR immediately. Medics arrived to find the patient in V. fib she received multiple rounds of epinephrine and multiple shocks she was intubated there is significant amount of bloody output from the ET tube with CPR ongoing there appeared to be adequate capnography. On arrival to the hospital the patient was in PEA. She has most recent admission to the hospital in July of this year for pneumonia not responding to antibiotic. Review of Systems Unable to obtain: Intubated PD PAST MEDICAL HISTORY - Past Medical History Cardiovascular: Congestive heart failure, Hypertension, High cholesterol, Coronary artery disease, [place], Atrial fibrillation, Murmur, Arrhythmia Respiratory: Asthma, COPD, Emphysema, Pneumonia, Shortness of breath, Other (recurrent PNA) Neuro: Headaches, Tremors Endocrine/Autoimmune: None GI: GERD ACIDIZER WATER WELL: Ectopic , Other (cervical cancer at age 18) : None, Frequency HEENT: Chronic vision loss, Chronic sinusitis, Chronic hearing loss Psych: Depression, Anxiety, Claustrophobia Musculoskeletal: Osteoarthritis, Fatigue, Chronic back pain Derm: None - Past Surgical History Past Surgical History: Yes General: Cholecystectomy, EGD Ortho: Knee replacement /ACIDIZER WATER WELL: Hysterectomy (partial at age 18 for cervical CA), LEEP (Cervical surgery) Cardiovascular: Cardiac catheterization HEENT: Rhinoplasty - Present Medications Home Medications: Ambulatory Orders Medication Instructions Recorded Confirmed Albuterol Sulfate [Proair Hfa 2 puffs INH Q4H PRN 09/10/17 07/31/19 Inhaler] Albuterol 2.5 mg INH Q4H PRN 12/29/17 07/31/19 Budesonide [Pulmicort] 0.5 mg INH TID 01/31/19 07/31/19 EPINEPHrine [Epinephrine] 0.3 mg IM PRN PRN 01/31/19 07/31/19 Fluticasone [Flonase] 1 sprays CLARISA BID 01/31/19 07/31/[address] [Voltaren] 75 mg PO BIDWM 07/31/19 07/31/19 Ipratropium/Albuterol [Combivent 1 puffs INH QID PRN 07/31/19 07/31/19 Respimat] Azithromycin [Zithromax] 250 mg PO DAILY #30 tab 08/03/19 Furosemide 40 mg PO DAILY #30 tablet 08/03/19 Lactulose 30 gm ORAL DAILY #30 bottle 08/03/19 Metoprolol Succinate [Toprol Xl] 25 mg PO BIDWM #60 tab.er.24h 08/03/19 Spironolactone [Aldactone] 25 mg PO DAILY #30 tablet 08/03/19 Theophylline [Theodur] 150 mg PO BID #30 tablet 08/03/19 guaiFENesin [Mucinex] 600 mg PO BID #60 tablet 08/03/19 - Allergies Allergies/Adverse Reactions: Allergies Allergy/AdvReac Type Severity Reaction Status Date / Time codeine [Codeine] Allergy Severe Swelling/Hi Verified 07/31/19 08:53 ves erythromycin base Allergy Severe Anaphylaxis Verified 07/31/19 08:53 [Erythromycin Base] gabapentin Allergy Severe Anaphylaxis Verified 07/31/19 08:53 Latex, Natural Rubber Allergy Severe Blisters Verified 07/31/19 08:53 pamabrom [From Midol] Allergy Severe Respiratory Verified 07/31/19 08:53 pyrilamine maleate * Allergy Severe Respiratory Verified 07/31/19 08:53 [From Midol] shellfish derived Allergy Severe Anaphylaxis Verified 07/31/19 08:53 venom-honey bee Allergy Severe Anaphylaxis Verified 07/31/19 08:53 [bee venom (honey bee)] chlorhexidine Allergy Intermediate Rash Verified 07/31/19 08:53 morphine Allergy Respiratory Verified 08/01/19 17:47 ondansetron Allergy Respiratory Verified 07/31/19 08:53 piperacillin [From Zosyn] AdvReac Rash Verified 03/18/20 08:53 tazobactam [From Zosyn] AdvReac Rash Verified 07/31/19 08:53 - Social History Does the pt smoke?: No Smoking Status: Former smoker Does the pt drink ETOH?: No Does the pt have substance abuse?: No - Immunizations Immunizations are current?: No Immunizations: Other immun not current - POLST Patient has POLST: No POLST Status: Full Code PD ED PE NORMAL - Vitals Vital signs reviewed: Yes - General General: Well developed/nourished, Other (Mottled patient with ET tube in place with bloody discharge and the patient is making effort to breath. ) - HEENT HEENT: Atraumatic, Other (On initial evaluation her pupils are fixed and dilated. After recusitation pupils are equal and reactive. ) - Neck Neck: No JVD - Cardiac Cardiac: Other (no palpable peripheral pulses and minimal squeeze to the heart on bedside ultrasound. Not much volume in the ventricles) - Respiratory Respiratory: Other (tachypnea with coarse breath sounds bilaterally ) - Abdomen Abdomen: Other (obese mottled skin ) - Extremities Extremities: No edema, Other (mottled extremeties) - Neuro Neuro: Other (pupils equal and reactive. Respiratory effort is present) Results - Vitals Vitals: Vital Signs - 24 hr 09/24/19 09/24/19 09/24/19 09:30 09:40 09:55 Heart Rate 55 L 55 L 62 Respiratory 22 25 H 29 H Rate Blood Pressure 144/118 H 159/144 H 160/118 H O2 Saturation 81 L 68 L 67 L 09/24/19 09/24/19 09/24/19 10:09 10:15 10:30 Heart Rate 61 54 L 61 Respiratory 38 H 24 34 H Rate Blood Pressure 97/61 103/35 L 81/38 L O2 Saturation 70 L 69 L 71 L 09/24/19 09/24/19 09/24/19 10:38 10:45 11:00 Heart Rate 61 63 66 Respiratory 36 H 38 H 38 H Rate Blood Pressure 117/72 107/46 L 118/67 O2 Saturation 73 L 73 L 73 L Oxygen O2 Source [] Room air O2 Source Mechanical ventilator Oxygen Flow Rate 100 - EKG (time done) 0931 Rate: Rate (enter#) (60) Rhythm: NSR Intervals: RBBB, Other (short ND) QRS: LVH (with strain pattern) Ischemia: ST elevation c/w ischemia (inferior ) Compare to prior EKG: Changed from prior EKG (SPT 07-31-[address] elevation has occurrred, T wave inversions in V1/2 are present.) Computer interpretation: Agree with computer - Labs Labs: Laboratory Tests 09/24/19 09/24/19 09/24/19 09:43 10:16 10:16 WBC 25.9 H RBC 4.66 Hgb 15.7 Hct 49.0 H MCV 105.2 H MCH 33.7 H MCHC 32.0 RDW 12.5 Plt Count 202 MPV 10.4 Neut # (Auto) Not Reportable Lymph # (Auto) Not Reportable [place] # (Auto) Not Reportable Eos # (Auto) Not Reportable Baso # (Auto) Not Reportable Absolute Nucleated RBC Not Reportable Total Counted 100 Band Neuts % (Manual) 3 Reactive Lymphs % (Man) 13 Abnorm Lymph % (Manual) 0 Myelocytes % 2 H Nucleated RBC % Not Reportable Neutrophils # (Manual) 18.1 H Lymphocytes # (Manual) 6.7 H Monocytes # (Manual) 0.0 Eosinophils # (Manual) 0.5 Basophils # (Manual) 0.0 Differential Comment MANUAL DIFFERENTIAL Manual Slide Review Indicated RBC Morph Micro Appear 1+ ANISOCYTOSIS Bld Gas Analysis Time 0943 Sample Site RIGHT RADIAL ABG pH 6.94 L* ABG pCO2 63 H* ABG pO2 56 L ABG HCO3 13.0 L ABG Total CO2 15.0 L ABG O2 Saturation 73 L* ABG Base Excess -20.5 L Elio Test POSITIVE Respiration Rate 18 O2 Delivery Device VENTILATOR Vent Mode SIMV FiO2 100.00 Tidal Volume 450 PEEP 5 Pressure Support Vent 10 Sodium Potassium Chloride Carbon Dioxide Anion Gap BUN Creatinine Estimated GFR (MDRD) Glucose Lactic Acid Calcium Total Bilirubin AST ALT Alkaline Phosphatase Troponin I High Sens B-Natriuretic Peptide 160 H Total Protein Albumin Globulin Albumin/Globulin Ratio Lipase 09/24/19 09/24/19 09/24/19 10:16 10:36 10:36 WBC RBC Hgb Hct MCV MCH MCHC RDW Plt Count MPV Neut # (Auto) Lymph # (Auto) [place] # (Auto) Eos # (Auto) Baso # (Auto) Absolute Nucleated RBC Total Counted Band Neuts % (Manual) Reactive Lymphs % (Man) Abnorm Lymph % (Manual) Myelocytes % Nucleated RBC % Neutrophils # (Manual) Lymphocytes # (Manual) Monocytes # (Manual) Eosinophils # (Manual) Basophils # (Manual) Differential Comment Manual Slide Review RBC Morph Micro Appear Bld Gas Analysis Time Sample Site ABG pH ABG pCO2 ABG pO2 ABG HCO3 ABG Total CO2 ABG O2 Saturation ABG Base Excess Elio Test Respiration Rate O2 Delivery Device Vent Mode FiO2 Tidal Volume PEEP Pressure Support Vent Sodium 142 Potassium 3.6 Chloride 106 Carbon Dioxide 19 L Anion Gap 17.0 H BUN 24 H Creatinine 1.4 H Estimated GFR (MDRD) 39 L Glucose 358 H Lactic Acid > 10.0 H* Calcium 7.3 L Total Bilirubin 1.0 AST 140 H ALT 84 H Alkaline Phosphatase 119 Troponin I High Sens 826.3 H* B-Natriuretic Peptide Total Protein 4.7 L Albumin 2.3 L Globulin 2.4 Albumin/Globulin Ratio 1.0 Lipase 55 H - Rads (name of study) chest Radiology: Prelim report reviewed (Impression: 1. ET tube present with tip 4.4 cm from the lai. Diffuse bilateral nodular interstitial airspace opacities which may be due to edema.), EMP read indepedently, See rad report Procedures - Bedside sono Bedside sono by EMP: With use of bedside ultrasound the heart is imaged there is very little motion there is some bowel motion the ventricles are not dilated. - IVC sono (time) 1000 Bedside IVC sono: IVC measures (cm) (1.51), Euvolemia (after 2 liters infused) PD MEDICAL DECISION MAKING - ED course Complexity details: reviewed results, re-evaluated patient, considered different ial, d/w practice management consultant (Dr. Gonsalves steam hoist operator at [facility] will accept. ) ED course: 54-year-old female comes into the emergency department with ongoing CPR that have been ongoing for nearly 1 hour. When she arrived we had little hope that we would have anything to add for her care. She had an IO in the right calf and fluid was infusing she had a rhythm without a palpable pulse and our initial intervention was to apply magnesium sulfate 2 g intravenously with ongoing CPR followed by 1 mg of epinephrine. This was our terminal effort and we stopped CPR at that point to find the patient had a blood pressure and maintain an oxygen saturation. She continued to have a respiratory effort and her pupils return to a normal size and are reactive. Her electrocardiogram was concerning for ST elevation in the inferior leads this was reviewed with the emergency department physician at [facility] who in turn reviewed this with the assistant professor of criminal justice at [facility] and we elected to transfer the patient to the intensive care unit at [facility] for further care. Dr. Gonsalves is accepting to the CCU. This patient with advanced lung disease has had what appears to be a v-fib a rrest now has ROSC and is breathing as well. She has had a significant amount of blood from her ET tube and old blood in the stomach. Chest shows edema. - Critical Care Time(min): 65 Time Includes: Direct patient care, Review records, Reassess patient, Document care, Coordinate care, Medical consult, Family consult for tx dec, See progress note Data interpretation: Labs, Pulse ox, ABG, CXR, Prior EKG Procedures excluded from critical care time: EKG Departure - Departure Disposition: 02 Transfer Acute Care Hosp Clinical Impression: Cardiac arrest Discharge Date/Time: 09/24/19 11:15
--- NOTE | 2019-09-24 10:04 | XRAY Report ---
Reason: ACTIVE CPR Procedure Date: 09/24/2019 Accession Number: [id number] / [id number] Procedure: XR - Chest 1 View X-Ray CPT Code: 31669 Final Report FULL RESULT: EXAM: CHEST RADIOGRAPHY EXAM DATE: 09/24/2019 09:47 AM. CLINICAL HISTORY: ACTIVE CPR. Loss of consciousness. Unresponsive. COMPARISON: CHEST 1 VIEW 08/02/2019 2:47 PM. TECHNIQUE: 1 view. FINDINGS: Lungs/Pleura: Bilateral diffuse nodular interstitial and airspace opacities. No definitive pneumothorax. Mediastinum: Heart size and mediastinal contour are stable. Other: ET tube present with the tip 4.4 cm from the lai. IMPRESSION: 1. ET tube present with the tip 4.4 cm from the lai. 2. Diffuse bilateral nodular interstitial and airspace opacities which may be due to edema. RADIA
[2019-09-24 10:25] LABS: BASOPHILS % (AUTO) 0.7 %; EOSINOPHILS % (AUTO) 1.2 %; HGB - HEMOGLOBIN 15.7 g/dL (12.0-16.0); LYMPHOCYTES % (AUTO) 26.1 %; MEAN CORPUSCULAR HEMOGLOBIN 33.7 pg (27.0-31.0); MEAN CORPUSCULAR VOLUME 105.2 fL (81.0-99.0); MEAN PLATELET VOLUME 10.4 fL (7.9-10.8); NEUTROPHILS % (AUTO) 62.7 %; PLT - PLATELET COUNT 202 10^3/uL (130-450); RED BLOOD COUNT 4.66 10^6/uL (4.20-5.40); RED CELL DISTRIBUTION WIDTH 12.5 % (12.0-15.0); WHITE BLOOD COUNT 25.9 x10^3/uL (4.8-10.8)
[2019-09-24] MEDS ORDERED: fentaNYL 100 MCG/2 ML VIAL ONE (10:30)
[2019-09-24] MEDS: fentaNYL 100 MCG/2 ML VIAL IVP STA (10:39)
[2019-09-24 10:51] LABS: ABNORMAL LYMPHS % (MANUAL) 0 %
[2019-09-24 10:54] LABS: BAND NEUTROPHILS % (MANUAL) 3 %; DIFFERENTIAL COMMENT MANUAL DIFFERENTIAL; EOSINOPHILS # (MANUAL) 0.5 10^3/uL (0-0.7); LYMPHOCYTES # (MANUAL) 6.7 10^3/uL (1.5-3.5); LYMPHOCYTES % (MANUAL) 13 %; MYELOCYTES % (MANUAL) 2 %; RBC MORPHOLOGY (MULTIPLE) 1+ ANISOCYTOSIS (NORMAL)
[2019-09-24 11:00] LABS: ALBUMIN 2.3 g/dL (3.2-5.5); CALCIUM 7.3 mg/dL (8.5-10.3); CREATININE 1.4 mg/dL (0.4-1.0); TOTAL PROTEIN 4.7 g/dL (6.7-8.2)
[2019-09-24] MEDS: MIDAZOLAM DRIP 50 MG/100 ML BAG IV STA (11:09)
[2019-09-24 11:35] VITALS: BP 118/67
== END 2019-09-24 11:15 | disposition short-term general hospital (02) ==
LOC: EDBD → EDUNIT# → ED 09:14
DX: I46.9 Cardiac arrest, cause unspecified (principal); I49.01 Ventricular fibrillation; R94.31 Abnormal electrocardiogram [ECG] [EKG]; I45.10 Unspecified right bundle-branch block; J43.9 Emphysema, unspecified; I11.0 Hypertensive heart disease with heart failure; I50.30 Unspecified diastolic (congestive) heart failure; I25.10 Atherosclerotic heart disease of native coronary artery without angina pectoris; I25.2 Old myocardial infarction; E09.9 Drug or chemical induced diabetes mellitus without complications; T38.0X5A Adverse effect of glucocorticoids and synthetic analogues, initial encounter; Z85.41 Personal history of malignant neoplasm of cervix uteri; Z87.891 Personal history of nicotine dependence
CPT/HCPCS: 36415; 36600; 71045; 80053; 82803; 83605; 83690; 83880; 84484; 85025; 85610; 85730; 92950; 93005; 94770; 96374; 96375; 99291

== ENCOUNTER 2019-11-08 18:04 | Outpatient (CLI) | payer OTHER, MEDICARE | END 2019-11-08 18:05 | disposition short-term general hospital (02) | LOC: EMS 18:04 | PROVIDERS: ATTEND Surgery | DX: R07.9 Chest pain, unspecified (principal) | CPT/HCPCS: A0425; A0427 ==

== ENCOUNTER 2019-11-19 10:02 | Emergency (ER) | payer OTHER, MEDICARE ==
[2019-11-19] MEDS ORDERED: CLINDAMYCIN 900 MG/50 ML 50 ML IV ONE (11:02)
--- NOTE | 2019-11-19 11:05 | ED Physician Documentation ---
History of Present Illness - Stated complaint Stated Complaint: POST OP COMPLICATION - Chief complaint Chief Complaint: General - History obtained from History obtained from: Patient - History of Present Illness Timing: How many weeks ago (1) Pain level max: 0 Pain level now: 0 - Additonal information Additional information: 54-year-old female presents to the emergency department stating that she had a pacemaker placed approximately 2 months ago. She states that the wound opened slightly a few weeks ago and has had some drainage over the past week. Called her doctor and was directed to the emergency department for evaluation. Nothing makes it better or worse. No fevers. No chills. Review of Systems Constitutional: denies: Fever, Chills Ears: denies: Ear pain Nose: denies: Rhinorrhea / runny nose, Congestion Throat: denies: Sore throat Cardiac: denies: Chest pain / pressure, Palpitations Respiratory: denies: Dyspnea GI: denies: Nausea, Vomiting, Diarrhea : denies: Dysuria Skin: denies: Rash Musculoskeletal: denies: Neck pain, Back pain Neurologic: denies: Headache PD PAST MEDICAL HISTORY - Past Medical History Cardiovascular: Congestive heart failure, Hypertension, High cholesterol, Coronary artery disease, [place], Atrial fibrillation, Murmur, Arrhythmia Respiratory: Asthma, COPD, Emphysema, Pneumonia, Shortness of breath, Other (recurrent PNA) Neuro: Headaches, Tremors Endocrine/Autoimmune: None GI: GERD LEAD SCIENTIST: Ectopic , Other (cervical cancer at age 18) : None, Frequency HEENT: Chronic vision loss, Chronic sinusitis, Chronic hearing loss Psych: Depression, Anxiety, Claustrophobia Musculoskeletal: Osteoarthritis, Fatigue, Chronic back pain Derm: None - Past Surgical History Past Surgical History: Yes General: Cholecystectomy, EGD Ortho: Knee replacement /LEAD SCIENTIST: Hysterectomy (partial at age 18 for cervical CA), LEEP (Cervical surgery) Cardiovascular: Cardiac catheterization HEENT: Rhinoplasty - Present Medications Home Medications: Ambulatory Orders Medication Instructions Recorded Confirmed Albuterol Sulfate [Proair Hfa 2 puffs INH Q4H PRN 09/10/17 07/31/19 Inhaler] Albuterol 2.5 mg INH Q4H PRN 12/29/17 07/31/19 Budesonide [Pulmicort] 0.5 mg INH TID 01/31/19 07/31/19 EPINEPHrine [Epinephrine] 0.3 mg IM PRN PRN 01/31/19 07/31/19 Fluticasone [Flonase] 1 sprays CLARISA BID 01/31/19 07/31/[address] [Voltaren] 75 mg PO BIDWM 07/31/19 07/31/19 Ipratropium/Albuterol [Combivent 1 puffs INH QID PRN 07/31/19 07/31/19 Respimat] Azithromycin [Zithromax] 250 mg PO DAILY #30 tab 08/03/19 Furosemide 40 mg PO DAILY #30 tablet 08/03/19 Lactulose 30 gm ORAL DAILY #30 bottle 08/03/19 Metoprolol Succinate [Toprol Xl] 25 mg PO BIDWM #60 tab.er.24h 08/03/19 Spironolactone [Aldactone] 25 mg PO DAILY #30 tablet 08/03/19 Theophylline [Theodur] 150 mg PO BID #30 tablet 08/03/19 guaiFENesin [Mucinex] 600 mg PO BID #60 tablet 08/03/19 Clindamycin HCl [Clindamycin 300MG 300 mg PO Q6H #40 capsule 11/19/19 CAP] - Allergies Allergies/Adverse Reactions: Allergies Allergy/AdvReac Type Severity Reaction Status Date / Time codeine [Codeine] Allergy Severe Swelling/Hi Verified 11/19/19 10:16 ves erythromycin base Allergy Severe Anaphylaxis Verified 11/19/19 10:16 [Erythromycin Base] gabapentin Allergy Severe Anaphylaxis Verified 11/19/19 10:16 Latex, Natural Rubber Allergy Severe Blisters Verified 11/19/19 10:16 pamabrom [From Midol] Allergy Severe Respiratory Verified 11/19/19 10:16 pyrilamine maleate * Allergy Severe Respiratory Verified 11/19/19 10:16 [From Midol] shellfish derived Allergy Severe Anaphylaxis Verified 11/19/19 10:16 venom-honey bee Allergy Severe Anaphylaxis Verified 11/19/19 10:16 [bee venom (honey bee)] chlorhexidine Allergy Intermediate Rash Verified 11/19/19 10:16 morphine Allergy Respiratory Verified 11/19/19 10:16 ondansetron Allergy Respiratory Verified 07/31/19 08:53 piperacillin [From Zosyn] AdvReac Rash Verified 07/31/19 08:53 tazobactam [From Zosyn] AdvReac Rash Verified 07/31/19 08:53 - Social History Does the pt smoke?: No Smoking Status: Former smoker Does the pt drink ETOH?: No Does the pt have substance abuse?: No - Immunizations Immunizations are current?: No Immunizations: Other immun not current - POLST Patient has POLST: No POLST Status: Full Code PD ED PE NORMAL - Vitals Vital signs reviewed: Yes - General General: Alert and oriented X 3, No acute distress, Well developed/nourished - HEENT HEENT: PERRL, Moist mucous membranes - Neck Neck: Supple, no meningeal sign - Cardiac Cardiac: RRR, Strong equal pulses - Respiratory Respiratory: No respiratory distress, Clear bilaterally - Abdomen Abdomen: Normal bowel sounds, Soft, Non tender, Non distended - Derm Derm: Warm and dry - Extremities Extremities: Normal ROM s pain - Neuro Neuro: Alert and oriented X 3 - Psych Psych: Normal mood, Normal affect - Free text exam Free text exam: Incision in the left upper chest with mild dehiscence of approximately 1 cm x 1 cm. There is a small amount of white drainage. No abscess. Minimal erythema s urrounding. No tenderness. Results - Vitals Vitals: Vital Signs - 24 hr 11/19/19 11/19/19 10:17 12:08 Temperature 36.5 C 36.9 C Heart Rate 61 65 Respiratory 16 16 Rate Blood Pressure 95/62 111/53 L O2 Saturation 95 93 Oxygen O2 Source [With Activity] Room air O2 Source Room air - Labs Labs: Microbiology 11/19/19 11:25 Wound Culture - Preliminary Chest Laboratory Tests 11/19/19 11/19/19 11/19/19 11:32 11:32 11:32 WBC 11.9 H RBC 4.52 Hgb 14.8 Hct 44.9 MCV 99.3 H MCH 32.7 H MCHC 33.0 RDW 12.8 Plt Count 244 MPV 9.4 Neut # (Auto) 8.9 H Lymph # (Auto) 1.8 [place] # (Auto) 0.9 Eos # (Auto) 0.3 Baso # (Auto) 0.1 Absolute Nucleated RBC 0.00 Nucleated RBC % 0.0 ESR 17 Sodium 139 Potassium 3.2 L Chloride 96 L Carbon Dioxide 33 H Anion Gap 10.0 BUN 12 Creatinine 0.9 Estimated GFR (MDRD) 65 L Glucose 121 H Calcium 9.3 C-Reactive Protein 3.4 H PD MEDICAL DECISION MAKING - ED course Complexity details: reviewed results, re-evaluated patient, considered differential, d/w patient ED course: Patient with what appears to be a mild cellulitis of the chest wall. Given IV antibiotics and will place on oral antibiotics for home. She is well-appearing, nontoxic. Afebrile. Given clindamycin. No drainable abscess. No fevers. No sepsis. Patient counseled regarding signs and symptoms for which I believe and urgent re-evaluation would be necessary. Patient with good understanding of and agreement to plan and is comfortable going home at this time This document was made in part using voice recognition software. While efforts are made to proofread this document, sound alike and grammatical errors may occur. Departure - Departure Disposition: 01 Home, Self Care Clinical Impression: Wound dehiscence Cellulitis Qualifiers: Site of cellulitis: trunk Site of cellulitis of trunk: chest wall Qualified Code(s): L03.313 - Cellulitis of chest wall Condition: Good Instructions: ED Infec Skin Cellulitis Follow-Up: CHACORTA INTERIANO MD [Primary Care Provider] - Within 3 Days Prescriptions: Clindamycin HCl [Clindamycin 300MG CAP] 300 mg PO Q6H #40 capsule Comments: Follow up with your doctor in 3 days for a wound check. Discharge Date/Time: 11/19/19 12:33
[2019-11-19 11:37] LABS: BASOPHILS # (AUTO) 0.1 10^3/uL (0.0-0.1); BASOPHILS % (AUTO) 0.5 %; EOSINOPHILS # (AUTO) 0.3 10^3/uL (0.0-0.7); EOSINOPHILS % (AUTO) 2.1 %; HGB - HEMOGLOBIN 14.8 g/dL (12.0-16.0); LYMPHOCYTES # (AUTO) 1.8 10^3/uL (1.5-3.5); LYMPHOCYTES % (AUTO) 14.7 %; MEAN CORPUSCULAR HEMOGLOBIN 32.7 pg (27.0-31.0); MEAN CORPUSCULAR VOLUME 99.3 fL (81.0-99.0); MEAN PLATELET VOLUME 9.4 fL (7.9-10.8); MONOCYTES # (AUTO) 0.9 10^3/uL (0.0-1.0); MONOCYTES % (AUTO) 7.9 %; NEUTROPHILS # (AUTO) 8.9 10^3/uL (1.5-6.6); NEUTROPHILS % (AUTO) 74.3 %; PLT - PLATELET COUNT 244 10^3/uL (130-450); RED BLOOD COUNT 4.52 10^6/uL (4.20-5.40); RED CELL DISTRIBUTION WIDTH 12.8 % (12.0-15.0); WHITE BLOOD COUNT 11.9 x10^3/uL (4.8-10.8)
[2019-11-19 11:53] LABS: CALCIUM 9.3 mg/dL (8.5-10.3); CREATININE 0.9 mg/dL (0.4-1.0); CRP - C-REACTIVE PROTEIN 3.4 mg/dL (0-1.0)
[2019-11-19 12:09] VITALS: BP 111/53
== END 2019-11-19 12:33 | disposition home or self-care (01) ==
LOC: ED 10:02
DX: T81.31XA Disruption of external operation (surgical) wound, not elsewhere classified, initial encounter (principal); L03.313 Cellulitis of chest wall; I10 Essential (primary) hypertension; Z87.891 Personal history of nicotine dependence; Z95.0 Presence of cardiac pacemaker
CPT/HCPCS: 36415; 80048; 85025; 85651; 86140; 87070; 87181; 87205; 96365; 99284

== ENCOUNTER 2019-11-21 12:08 | Outpatient (CLI) | payer OTHER, MEDICARE | END 2019-11-21 12:09 | disposition EMS.NT | LOC: EMS 12:08 | PROVIDERS: ATTEND Surgery | DX: R06.02 Shortness of breath (principal) ==

== ENCOUNTER 2020-02-09 19:30 | Outpatient (CLI) | payer OTHER, MEDICARE | END 2020-02-09 23:59 | disposition home or self-care (01) | LOC: SC 19:30 | PROVIDERS: ATTEND Nurse Practitioner Family | DX: R06.83 Snoring (principal); G47.10 Hypersomnia, unspecified; R53.83 Other fatigue; G47.8 Other sleep disorders; R06.81 Apnea, not elsewhere classified; I49.9 Cardiac arrhythmia, unspecified; I51.9 Heart disease, unspecified; E66.9 Obesity, unspecified; Z68.39 Body mass index [BMI] 39.0-39.9, adult | CPT/HCPCS: 95806 ==

== ENCOUNTER 2020-03-04 15:52 | Outpatient (CLI) | payer OTHER, MEDICARE ==
--- NOTE | 2020-03-04 15:15 | SLEEP CARE CONSULTATION ---
Information from patient questionnaire entered by Erlinda Martin. I have reviewed and concur with the information entered by Erlinda Martin. This document represents the service I personally performed and the decisions made by , Rachel Pinon ARNP. History of Present Illness Service Date and Time: 03/04/2020 09 Initial [place] Sleepiness Scale score: 16 (in 2019) Additional HPI information: PATRICE BREWSTER returns for follow up and results of the recently performed home sleep study. The patient was informed of the following findings: HST was poor quality due to almost complete loss of pulse oximeter signal. Results showing average AHI 1.4, supine AHI 21.4 and non-supine 0.7 AHI. Her joe oxygen saturation was 86.3%. Patient does not have significant sleep disordered breathing but has elevated AHI in supine position so advised patient not to sleep supine. Methods to achieve positional management therapy were discussed; such as, positioning with pillows or wearing a T-shirt with tennis balls sewn into the back. Patient has moderate snoring. Snoring can be reduced by weight loss. Weight loss is best achieved with diet consult. Patient instructed to contact PCP for referral. Snoring can also be treated with an oral appliance from a dentist. Ad vised to check insurance coverage. In addition, an ENT evaluation can be do to see if other treatment is indicated. Patient was cautioned about risks of drowsy driving until sleepiness symptoms resolve. Sleep Study - Results Type of Sleep Study: Home sleep study Prior sleep studies: Yes Year and Where: 01/2020 [facility] - not sure when Polysomnography/Home Sleep Study results: SLEEP TIME AND EFFICIENCY: The sleep study recording began at 09:20:18 PM and ended at 02:34:56 AM. Total recording time was 314.6 minutes. The total sleep time was 266.5 minutes. The sleep efficiency was 84.7 percent. The patient spent 8.4 minutes supine, and spent 258.1 minutes non-supine. The patients own estimate of sleep time was 5.20 hours. RESPIRATORY DATA: The AHI in this report is indexed to sleep time based on actigraphy. The AASM defines this as JOSE G. The AHI on this type 3 Home Sleep Study may understate the AHI determined on a type 1 or 2 study, since EEG is not monitored resulting in the inability to score non-desaturating hypopneas. Based on 4% Calculation: The AHI4% calculation of 1.4 per hour of recording time was based on a total of 4 scored apneas and 2 scored hypopneas with 4% desaturations. Supine AHI4%: 21.4 per hour. Non-supine AHI4%: 0.7 per hour. Oxygen Summary: Patient's baseline O2 saturation was 93.7 %. The patient spent 0.1 minutes at an oxygen saturation less than 90%, and 0.0 minutes less than 85%. The desaturation index was 0.7 events per hour sleep time. The lowest saturation was 86.3 %. SNORING: The percent of the study time spent snoring was 0.0 %. The Snoring Count was 0 . The Snoring Index was 0.0 . PULSE RATE REVIEW: The mean heart rate was 61 beats per minute. The rate ranged from a low of 48 to a high of 87 beats per minute. DIAGNOSIS CODE: suspected Obstructive Sleep Apnea (ICD-10 G47.30) Impression: The test quality is poor due to near complete loss of pulse oximeter signal. The test duration is adequate. The respiratory data revealed no significant sleep disordered breathing. The pulse rate was within normal limits. Recommendation: Due to the poor quality, this home sleep apnea test is non-diagnostic. An in- laboratory poloysomnography is recommended. Allergies and Home Medications Drug allergies reviewed: Yes (see chart list) Home medication list reviewed: Yes (no changes) Review of Systems Review of systems same as previous: Yes (no changes) Physical Exam Vital signs obtained and entered by: Telemed visit, did not obtain vital signs Height: 5 ft 3 in Impression and Plan 1. Suspected Obstructive Sleep Apnea-Hypopnea Syndrome, as suggested by a history of loud and irregular snoring, observed cessation of breath while asleep, morning headaches, unrefreshed sleep, and excessive daytime sleepiness. Patient has a history of arrhythmia, CHF, anxiety, and asthma. Patient on a Telehealth visit for follow up on her HST. Her study was non-diagnostic due to the poor quality of the test. I recommend proceeding to in lab polysomnography to confirm the diagnosis and to assess severity. If the patient has significant sleep disordered breathing, a manual CPAP titration study will also be performed to find the optimal treatment pressure. The pathophysiology of obstructive sleep apnea-hypopnea syndrome was discussed with the patient and health risks of cardiovascular and cerebrovascular disease if not treated. * Schedule polysomnography +- manual CPAP titration study. * Avoid long distance driving or driving when feeling sleepy. * Avoid alcohol, sedative and muscle relaxant around bedtime. * Attempt to lose weight. * Review instructions provided by trained office staff on how to prepare for the sleep study. * Return for follow-up after sleep study completed. Counseling Topics: Sleeping position, Weight loss health impact Visit Type: Telehealth Phone Video Type: [facility] Patient Location: [facility] Location of Provider: Home Patient agrees and consents to this telehealth visit type: Yes Patient agrees to have their insurance billed: Yes Time Spent with Patient (minutes): 10 Provider Statement: I spent 100% of the Telehealth Phone Call with the patient with greater than 50% spent counseling the patient and coordination of care.
== END 2020-03-04 15:53 | disposition home or self-care (01) ==
LOC: SC 15:52
PROVIDERS: ATTEND Nurse Practitioner Family
DX: G47.10 Hypersomnia, unspecified (principal); R06.83 Snoring; R53.83 Other fatigue; G47.8 Other sleep disorders; R06.81 Apnea, not elsewhere classified; I49.9 Cardiac arrhythmia, unspecified; R51.9 Headache, unspecified

== ENCOUNTER 2020-06-26 08:00 | Outpatient (CLI) | payer MEDICARE, OTHER ==
--- NOTE | 2020-06-26 09:47 | XRAY Report ---
PROCEDURE: Knee 3 View LT INDICATIONS: LT KNEE PAIN, GLF TECHNIQUE: 2 views of the left knee(s) were acquired. COMPARISON: None. FINDINGS: Bones: Expected appearance of total left knee arthroplasty. No evidence of hardware failure or loosen ing. No fractures or dislocations. No suspicious bony lesions. Soft tissues: No joint effusion. No suspicious soft tissue calcifications. Diffuse edema. Probable varicosities. IMPRESSION: No evidence acute fracture or dislocation. Reviewed by: Papo Reyes MD on 06/26/2020 9:46 AM PST Approved by: Papo Reyes MD on 06/26/2020 9:46 AM PST Station ID: [id number]
--- NOTE | 2020-06-26 09:49 | XRAY Report ---
PROCEDURE: Shoulder 3 View RT INDICATIONS: RT SHOULDER PAIN GLF TECHNIQUE: 3 views of the shoulder were acquired. COMPARISON: None. FINDINGS: Bones: No fractures or dislocations. Mild clinical humeral joint degenerative change. Old healed rig ht rib fractures. No suspicious bony lesions. Visualized ribs appear intact. Soft tissues: No suspicious soft tissue calcifications. IMPRESSION: No evidence acute bony abnormality of the right shoulder. If clinical suspicion and/or symptoms persist, further assessment with repeat plain films or advanced imaging (e.g., CT, MRI, or bone scan) may be helpful for further assessment. Reviewed by: Papo Reyes MD on 06/26/2020 9:47 AM PST Approved by: Papo Reyes MD on 06/26/2020 9:47 AM PST Station ID: [id number]
--- NOTE | 2020-06-26 09:52 | XRAY Report ---
PROCEDURE: Wrist 4 View LT INDICATIONS: LEFT WRIST PAIN, GLF TECHNIQUE: 4 views of the wrist were acquired. COMPARISON: 09/17/2018 FINDINGS: Bones: No fractures or dislocations. No suspicious bony lesions. Severe degenerative arthritis of the first carpometacarpal joint. Small cystic regions in the base of the first metacarpal, scaphoid, and radius are stable. Scaphoid view: Scaphoid intact Soft tissues: No suspicious soft tissue calcifications. IMPRESSION: 1. No evidence acute fracture or dislocation. 2. Stable findings. Advanced degenerative arthritis at the base of the thumb. Reviewed by: Papo Reyes MD on 06/26/2020 9:50 AM PST Approved by: Papo Reyes MD on 06/26/2020 9:50 AM PST Station ID: [id number]
== END 2020-06-26 23:59 | disposition home or self-care (01) ==
LOC: DI.N 08:00
PROVIDERS: ATTEND Family Medicine
DX: M25.562 Pain in left knee (principal); M25.532 Pain in left wrist; M25.511 Pain in right shoulder; M19.042 Primary osteoarthritis, left hand

== ENCOUNTER 2020-09-07 05:14 | Inpatient (IN) | payer MEDICARE, MEDICAID ==
--- OUTSIDE RECORDS SUMMARY | 2020-09-07 05:26 | EXTERNAL MEDICAL SUMMARY RPT | Continuity of Care Document ---
:1965 Demographics Phone Unavailable Preferred Language Unknown Marital Status Unknown [employer] Affiliation Unknown Race Unknown Ethnic Group Unknown Author Organization [facility] Address [address] [phone] Phone Social History date description facility [id number]
[2020-09-07] MEDS ORDERED: IPRATROPIUM/ALBUTEROL 3 ML NEB INH STA (05:36)
--- NOTE | 2020-09-07 05:36 | ED Physician Documentation ---
PD HPI DYSPNEA - Stated complaint Stated Complaint: SOA - Chief complaint Chief Complaint: Resp - History obtained from History obtained from: Patient - History of Present Illness Timing - onset: How many months ago (3) Timing - onset during: Light activity Timing - duration: Months (3) Timing - details: Gradual onset, Still present Inciting event(s): Out of meds Improved by: Inhaler/neb Worsened by: Exertion, Coughing Associated symptoms: Cough, Wheezing. No: Fever, Chest pain / discomfort, Palpitations, Diaphoresis, Bilateral edema, Unilateral edema Similar symptoms before: Diagnosis (COPD., pneumonia) Recently seen: Not recently seen - Additional information Additional information: 55-year-old female with a history of COPD has not been in to see her doctor in over 6 months and over the past 3 months she has required more and more help at home to get up the stairs without collapsing. She has a prior history of cardiac arrest requiring more than 1 hour of CPR and when everything else was given up and CPR was stopped she developed a pulse and blood pressure. She was in the OB delivery room witnessing the of a great grandchild and she had a near syncopal episode. Review of Systems Constitutional: denies: Fever Ears: denies: Ear pain Nose: denies: Congestion Throat: denies: Sore throat Cardiac: denies: Chest pain / pressure Respiratory: reports: Dyspnea, Cough, Wheezing GI: denies: Vomiting PD PAST MEDICAL HISTORY - Past Medical History Cardiovascular: Congestive heart failure, Hypertension, High cholesterol, Coronary artery disease, [place], Atrial fibrillation, Murmur, Arrhythmia Respiratory: Asthma, COPD, Emphysema, Pneumonia, Shortness of breath, Other (recurrent PNA) Neuro: Headaches, Tremors Endocrine/Autoimmune: None GI: GERD PHOTO INTERN: Ectopic , Other (cervical cancer at age 18) : None, Frequency HEENT: Chronic vision loss, Chronic sinusitis, Chronic hearing loss Psych: Depression, Anxiety, Claustrophobia Musculoskeletal: Osteoarthritis, Fatigue, Chronic back pain Derm: None - Past Surgical History Past Surgical History: Yes General: Cholecystectomy, EGD Ortho: Knee replacement /PHOTO INTERN: Hysterectomy (partial at age 18 for cervical CA), LEEP (Cervical surgery) Cardiovascular: Cardiac catheterization HEENT: Rhinoplasty - Present Medications Home Medications: Ambulatory Orders Medication Instructions Recorded Confirmed Albuterol Sulfate [Proair Hfa 2 puffs INH Q4H PRN 09/10/17 07/31/19 Inhaler] Albuterol 2.5 mg INH Q4H PRN 12/29/17 07/31/19 Budesonide [Pulmicort] 0.5 mg INH TID 01/31/19 07/31/19 EPINEPHrine [Epinephrine] 0.3 mg IM PRN PRN 01/31/19 07/31/19 Fluticasone [Flonase] 1 sprays CLARISA BID 01/31/19 07/31/[address] [Voltaren] 75 mg PO BIDWM 07/31/19 07/31/19 Ipratropium/Albuterol [Combivent 1 puffs INH QID PRN 07/31/19 07/31/19 Respimat] Azithromycin [Zithromax] 250 mg PO DAILY #30 tab 08/03/19 Furosemide 40 mg PO DAILY #30 tablet 08/03/19 Lactulose 30 gm ORAL DAILY #30 bottle 08/03/19 Metoprolol Succinate [Toprol Xl] 25 mg PO BIDWM #60 tab.er.24h 08/03/19 Spironolactone [Aldactone] 25 mg PO DAILY #30 tablet 08/03/19 Theophylline [Theodur] 150 mg PO BID #30 tablet 08/03/19 guaiFENesin [Mucinex] 600 mg PO BID #60 tablet 08/03/19 Clindamycin HCl [Clindamycin 300MG 300 mg PO Q6H #40 capsule 11/19/19 CAP] - Allergies Allergies/Adverse Reactions: Allergies Allergy/AdvReac Type Severity Reaction Status Date / Time codeine [Codeine] Allergy Severe Swelling/Hi Verified 11/19/19 10:16 ves erythromycin base Allergy Severe Anaphylaxis Verified 11/19/19 10:16 [Erythromycin Base] gabapentin Allergy Severe Anaphylaxis Verified 11/19/19 10:16 Latex, Natural Rubber Allergy Severe Blisters Verified 11/19/19 10:16 pamabrom [From Midol] Allergy Severe Respiratory Verified 11/19/19 10:16 pyrilamine maleate * Allergy Severe Respiratory Verified 11/19/19 10:16 [From Midol] shellfish derived Allergy Severe Anaphylaxis Verified 11/19/19 10:16 venom-honey bee Allergy Severe Anaphylaxis Verified 11/19/19 10:16 [bee venom (honey bee)] chlorhexidine Allergy Intermediate Rash Verified 11/19/19 10:16 morphine Allergy Respiratory Verified 11/19/19 10:16 ondansetron Allergy Respiratory Verified 07/31/19 08:53 piperacillin [From Zosyn] AdvReac Rash Verified 07/31/19 08:53 tazobactam [From Zosyn] AdvReac Rash Verified 07/31/19 08:53 - Social History Does the pt smoke?: No Smoking Status: Former smoker Does the pt drink ETOH?: No Does the pt have substance abuse?: No - Immunizations Immunizations are current?: No Immunizations: Other immun not current - POLST Patient has POLST: No POLST Status: Full Code PD ED PE NORMAL - Vitals Vital signs reviewed: Yes (hypotensive ) - General General: Alert and oriented X 3, No acute distress, Well developed/nourished - HEENT HEENT: Atraumatic, PERRL, EOMI - Neck Neck: Supple, no meningeal sign, No bony TTP - Cardiac Cardiac: RRR, No murmur - Respiratory Respiratory: Other (wheezes and rhonchi throughout) - Abdomen Abdomen: Soft, Non tender - Back Back: No CVA TTP, No spinal TTP - Derm Derm: Normal color, Warm and dry, No rash - Extremities Extremities: No deformity, No edema - Neuro Neuro: Alert and oriented X 3, student union consultant 2-12 intact, No motor deficit, No sensory deficit, Normal speech Eye Opening: Spontaneous Motor: Obeys Commands Verbal: Oriented GCS Score: 15 - Psych Psych: Normal mood, Normal affect Results - Vitals Vitals: Vital Signs - 24 hr 09/07/20 09/07/20 09/07/20 05:15 05:38 05:39 Temperature 37.1 C Heart Rate 60 66 60 Respiratory 22 20 20 Rate Blood Pressure 109/59 L 115/69 O2 Saturation 97 97 09/07/20 09/07/20 09/07/20 05:50 05:55 06:07 Temperature Heart Rate 60 60 64 Respiratory 17 25 H 26 H Rate Blood Pressure 136/83 H 115/69 O2 Saturation 97 96 Oxygen O2 Source [] Room air O2 Source Nasal cannula Oxygen Flow Rate 2 - Labs Labs: Laboratory Tests 09/07/20 09/07/20 05:54 06:15 WBC 9.5 RBC 4.71 Hgb 15.2 Hct 46.7 MCV 99.2 H MCH 32.3 H MCHC 32.5 RDW 12.6 Plt Count 244 MPV 9.5 Neut # (Auto) 5.9 Lymph # (Auto) 2.5 [place] # (Auto) 0.8 Eos # (Auto) 0.2 Baso # (Auto) 0.1 Absolute Nucleated RBC 0.00 Nucleated RBC % 0.0 Lactic Acid 1.9 - Rads (name of study) chest Radiology: Prelim report reviewed (Impression: 1. Cardiomegaly. No acute pulmonary finding.), EMP read indepedently, See rad report PD MEDICAL DECISION MAKING - ED course Complexity details: considered differential, d/w patient ED course: 55-year-old female with a history of COPD and medical noncompliance has had an event while witnessing the of her great grandchild and she has presented to the emergency department with shortness of breath. She has wheezing and rhonchi on exam a work-up is ensued she is administered a DuoNeb treatment followed by an albuterol treatment and at shift change care is turned over to the capable Dr. Caleb Finch.
[2020-09-07] MEDS ORDERED: ALBUTEROL NEB 2.5 MG/3 ML INH STA ×2 (05:52→06:35)
[2020-09-07 06:25] LABS: BASOPHILS # (AUTO) 0.1 10^3/uL (0.0-0.1); BASOPHILS % (AUTO) 0.5 %; EOSINOPHILS # (AUTO) 0.2 10^3/uL (0.0-0.7); EOSINOPHILS % (AUTO) 2.5 %; HCT - HEMATOCRIT 46.7 % (37.0-47.0); HGB - HEMOGLOBIN 15.2 g/dL (12.0-16.0); LYMPHOCYTES # (AUTO) 2.5 10^3/uL (1.5-3.5); LYMPHOCYTES % (AUTO) 26.1 %; MEAN CORPUSCULAR HEMOGLOBIN 32.3 pg (27.0-31.0); MEAN CORPUSCULAR HGB CONC 32.5 g/dL (32.0-36.0); MEAN CORPUSCULAR VOLUME 99.2 fL (81.0-99.0); MEAN PLATELET VOLUME 9.5 fL (7.9-10.8); MONOCYTES # (AUTO) 0.8 10^3/uL (0.0-1.0); MONOCYTES % (AUTO) 8.4 %; NEUTROPHILS # (AUTO) 5.9 10^3/uL (1.5-6.6); NEUTROPHILS % (AUTO) 61.9 %; PLT - PLATELET COUNT 244 10^3/uL (130-450); RED BLOOD COUNT 4.71 10^6/uL (4.20-5.40); RED CELL DISTRIBUTION WIDTH 12.6 % (12.0-15.0); WHITE BLOOD COUNT 9.5 x10^3/uL (4.8-10.8)
[2020-09-07] MEDS ORDERED: FUROSEMIDE 40 MG/4 ML VIAL IVP STA (06:36)
[2020-09-07 06:38] LABS: ALBUMIN 3.8 g/dL (3.2-5.5); ALBUMIN/GLOBULIN RATIO 1.2 (1.0-2.2); BILIRUBIN,TOTAL 0.6 mg/dL (0.2-1.0); CALCIUM 9.1 mg/dL (8.5-10.3); POTASSIUM 3.6 mmol/L (3.5-5.0); TOTAL PROTEIN 6.9 g/dL (6.7-8.2)
--- NOTE | 2020-09-07 07:03 | ED Physician Documentation ---
ED Addendum - Addendum Addendum: 09/07/20 07:00 He states she has been having increasing troubles with wheezing and dyspnea. She has noticed this over several days or week or more, "this time of year". She states she did not have any help so had to mow the lawn herself over the weekend and this created more wheezing. She had had brief improvement with her inhalers but they did not last according to the patient. She was having more trouble breathing this morning while watching her granddaughter deliver a baby. She is brought to the ER. She came to us on oxygen. I do not know room air oximetry. She states at home she was prescribed oxygen and her insurance had canceled so she is not having it due to being unable to afford it. She states her baseline oxygenation is 92 to 94% on room air. Here for on recheck she still has some prolonged expirations and diffuse wheeziness. There is perhaps some very faint fine crackles at the bases. She has 1+ edema in both legs which she states is common for her. She is able to talk in sentences. She is lying semireclined. Oxygenation is about 92% on 2 L. With some coughing she did go down to 88 to 89% and the nursing pushed her oxygenation supplement up. We will repeat inhalers and nebulizers here in the ER. I gave some Lasix for potential of some element of CHF but it sounds predominantly COPD.
[2020-09-07 07:07] LABS: CORONAVIRUS 229E-RESP PCR NOT DETECTED; CORONAVIRUS HKU1-RESP PCR NOT DETECTED; CORONAVIRUS NL63-RESP PCR NOT DETECTED; CORONAVIRUS OC43-RESP PCR NOT DETECTED; HUMAN METAPNEUMOVIRUS NOT DETECTED; INFLUENZA A- RESP PCR PANEL NOT DETECTED; INFLUENZA B - RESP PCR PANEL NOT DETECTED; PARAINFLUENZA VIRUS 1 NOT DETECTED; PARAINFLUENZA VIRUS 2 NOT DETECTED; PARAINFLUENZA VIRUS 3 NOT DETECTED; RHINOVIRUS/ENTEROVIRUS NOT DETECTED; SARS-CoV-2 -RESP PCR PANEL NOT DETECTED
[2020-09-07 07:08] LABS: B. PARAPERTUSSIS- RESP PCR PAN NOT DETECTED; B. PERTUSSIS- RESP PCR PANEL NOT DETECTED; C. PNEUMONIAE- RESP PCR PANEL NOT DETECTED; M. PNEUMONIAE- RESP PCR PANEL NOT DETECTED; PARAINFLUENZA VIRUS 4 NOT DETECTED; RSV- RESP PCR PANEL NOT DETECTED
[2020-09-07 07:25] LABS: BILIRUBIN,URINE NEGATIVE (NEGATIVE); GLUCOSE, URINE (UA) NEGATIVE (NEGATIVE); KETONES,URINE (UA) NEGATIVE (NEGATIVE); LEUKOCYTE ESTERASE, URINE NEGATIVE (NEGATIVE); NITRITE,URINE NEGATIVE (NEGATIVE); OCCULT BLOOD,URINE NEGATIVE (NEGATIVE); PH,URINE 6.5 PH (5.0-7.5); PROTEIN,URINE NEGATIVE (NEGATIVE); UROBILINOGEN,URINE 0.2 (NORMAL) E.U./dL (NORMAL)
[2020-09-07 07:26] LABS: CLARITY,URINE CLEAR (CLEAR)
[2020-09-07] MEDS ORDERED: ONDANSETRON 4 MG/2 ML VIAL IVP PRN (08:17)
[2020-09-07] MEDS ORDERED: ACETAMINOPHEN 325 MG TABLET PO PRN (08:17)
--- NOTE | 2020-09-07 08:22 | XRAY Report ---
PROCEDURE: Chest 1 View X-Ray INDICATIONS: chest pain TECHNIQUE: One view of the chest was acquired. COMPARISON: 09/24/2019 chest plain film. FINDINGS: Surgical changes and devices: Dual-chamber cardiac pacemaking device and leads appear normal. Lungs and pleura: No pleural effusions or pneumothorax. Lungs are mildly edematous. Mediastinum: Mediastinal contours appear normal. Heart size is normal. Bones and chest wall: No suspicious bony lesions. Overlying soft tissues appear unremarkable. IMPRESSION: Mild cardiomegaly, suspect mild acute CHF. Pacemaker and leads appear normal. Reviewed by: Brody Franks MD on 09/07/2020 8:21 AM PDT Approved by: Brody Franks MD on 09/07/2020 8:21 AM PDT Station ID: [id number]
[2020-09-07] MEDS ORDERED: IPRATROPIUM/ALBUTEROL 3 ML NEB INH PRN (08:23)
--- NOTE | 2020-09-07 08:28 | HISTORY & PHYSICAL EXAMINATION ---
History of Present Illness - Admitted From Admitted From:: ER - History of Present Illness HPI Comment/Other: This is a 55-year-old white female with a history of latent TB, COPD, gets COPD exacerbations in the spring when plants blossom, history of cardiomyopathy with last ejection fraction 40 to 45% 1 year ago, remote history of cardiac arrest, steroid-induced diabetes, morbid obesity, sleep apnea not compliant with CPAP. Patient states that she has been getting more short of breath over the past 1 week as everything is blooming. She had to mow the grass 2 days ago which also worsened her wheezing and shortness of breath. Overnight she was watching her granddaughter deliver a baby in our Labor and Delivery unit and became near syncopal and was brought to the ER. She was found to have significant wheezing and tachypnea and had marked effort in work of breathing. She was given IV Lasix, nebulizers, Decadron and oxygen. She desaturated on room air to 88%. The Hospitalist team was contacted for further inpatient management of a COPD exacerbation. History - Past Medical History Cardiovascular: reports: Congestive heart failure, Hypertension, High cholesterol, Coronary artery disease, MD, Atrial fibrillation, Murmur, Arrhythmia Respiratory: reports: Asthma, COPD, Emphysema, Pneumonia, Shortness of breath, Other (recurrent PNA) Neuro: reports: Headaches, Tremors Endocrine/Autoimmune: reports: None GI: reports: GERD CARD SORTER: reports: Ectopic , Other (cervical cancer at age 18) : reports: None, Frequency HEENT: reports: Chronic vision loss, Chronic sinusitis, Chronic hearing loss Psych: reports: Depression, Anxiety, Claustrophobia Musculoskeletal: reports: Osteoarthritis, Fatigue, Chronic back pain Derm: reports: None MRSA Hx?: No - Past Surgical History General: reports: Cholecystectomy, EGD Ortho: reports: Knee replacement /CARD SORTER: reports: Hysterectomy (partial at age 18 for cervical CA), LEEP (Cervical surgery) Cardiovascular: reports: Cardiac catheterization HEENT: reports: Rhinoplasty - Family & Social History Family History: Mother: Alive and Well, Alzheimer's Disease, Hyperlipidemia, Hypertension, Father: , Cancer, Other family: CVA/TIA, Diabetes, Type 1, MD Family History Comment/Other: Father: arthritis, DM, CAD, osteoporosis, and some type of cancer. Mother: DM, CAD, HTN, ostoporosis Social History Notes: The patient lives at home with her , Rajat. 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 She denies a history of alcoholism, stopped smoking 2 years ago (started at age 7), denies illicit drug use. She wishes to be a FULL code. - Substance History Use: Uses substance without health or social issues: NONE - POLST Patient has POLST: No POLST Status: Full Code Meds/Allgy - Home Medications Home Medications: Ambulatory Orders Medication Instructions Recorded Confirmed Albuterol Sulfate [Proair Hfa 2 puffs INH Q4H PRN 09/10/17 09/07/20 Inhaler] Albuterol 2.5 mg INH Q4H PRN 12/29/17 09/07/20 Budesonide [Pulmicort] 0.5 mg INH BID 01/31/19 09/07/20 Fluticasone [Flonase] 1 sprays CLARISA BID 01/31/19 09/07/20 Spironolactone [Aldactone] 25 mg PO DAILY #30 tablet 08/03/19 09/07/20 Amiodarone HCl 200 mg PO DAILY 09/07/20 09/07/20 Arformoterol Tartrate [Brovana] 15 mcg NEB BID 09/07/20 09/07/20 Aspirin [Aspirin EC] 81 mg PO DAILY 09/07/20 09/07/20 Furosemide 40 mg PO BID 09/07/20 09/07/20 Metoprolol Succinate [Toprol Xl] 100 mg PO BID 09/07/20 09/07/20 Montelukast [Singulair] 10 mg PO QPM 09/07/20 09/07/20 - Allergies Allergies/Adverse Reactions: Allergies Allergy/AdvReac Type Severity Reaction Status Date / Time codeine [Codeine] Allergy Severe Swelling/Hi Verified 11/19/19 10:16 ves erythromycin base Allergy Severe Anaphylaxis Verified 11/19/19 10:16 [Erythromycin Base] gabapentin Allergy Severe Anaphylaxis Verified 11/19/19 10:16 Latex, Natural Rubber Allergy Severe Blisters Verified 11/19/19 10:16 pamabrom [From Midol] Allergy Severe Respiratory Verified 11/19/19 10:16 pyrilamine maleate * Allergy Severe Respiratory Verified 11/19/19 10:16 [From Midol] shellfish derived Allergy Severe Anaphylaxis Verified 11/19/19 10:16 venom-honey bee Allergy Severe Anaphylaxis Verified 11/19/19 10:16 [bee venom (honey bee)] chlorhexidine Allergy Intermediate Rash Verified 11/19/19 10:16 morphine Allergy Respiratory Verified 11/19/19 10:16 ondansetron Allergy Respiratory Verified 07/31/19 08:53 piperacillin [From Zosyn] AdvReac Rash Verified 07/31/19 08:53 tazobactam [From Zosyn] AdvReac Rash Verified 07/31/19 08:53 Review of Systems - Cardiovascular Cariovascular: reports: Edema (She has chronic mild leg edema.), Lightheadednes s, Syncope (Near-syncope today) - Respiratory Respiratory: reports: Cough, Wheezing, SOB at rest, SOB with exertion - All Other Systems All Other Systems: reports: Reviewed and negative Exam - Vital Signs Vital Signs: Vital Signs x48h Temp Pulse Resp BP Pulse Ox 09/07/20 08:03 91 20 133/69 H 92 09/07/20 07:39 59 L 92 09/07/20 07:32 61 22 118/56 L 88 L 09/07/20 07:00 64 108/83 H 100 09/07/20 06:55 66 22 09/07/20 06:10 36.3 C L 60 23 115/69 93 09/07/20 06:07 64 26 H 115/69 96 09/07/20 05:55 60 25 H 09/07/20 05:50 60 17 136/83 H 97 09/07/20 05:39 60 20 115/69 97 09/07/20 05:38 66 20 09/07/20 05:15 37.1 C 60 22 109/59 L 97 - Physical Exam General Appearance: positive: Alert, Mild distress (from SOB) Eyes Bilateral: positive: Normal inspection ENT: positive: No signs of dehydration, Other (Edentulous) Neck: positive: Nml inspection, No JVD Respiratory: positive: Wheezes, Other (Poor air movement) Cardiovascular: positive: Regular rate & rhythm, No murmur (distant heart sounds) Abdomen: positive: Other (Obese with pannus, cannot R/O organomegaly or fluid wave) Skin: positive: Warm, Dry Extremities: positive: Other (1+ pedal edema) Neurologic/Psychiatric: positive: Oriented x3 Conclusion/Plan - Problem List (1) Acute respiratory failure with hypoxia Conclusion/Plan: Related to her slowly worsening pulmonary status and the current COPD exacerbation, since she does not appear fluid overloaded today and has a normal BNP of 68. We will treat her COPD exacerbation (see below). (2) COPD with acute exacerbation Conclusion/Plan: Start scheduled and as needed nebs,IV steroids, empiric IV antibiotics, Mucinex and supplemental oxygen. (3) Near syncope Conclusion/Plan: Her BNP is within normal limits, and she was on diyretics, I suspect she has volume depletion as the cause of the near syncope. Will order orthostatic vital sign checks. If she is orthostatic, will hold her diuretics and give very low-dose IV hydration at 40 or 50 cc/h (4) Cardiomegaly Conclusion/Plan: Will obtain echo to evaluate cardiac size and LVEF (5) HFrEF (heart failure with reduced ejection fraction) Conclusion/Plan: Currently there are no signs of volume overload especially with a normal BNP. We will check echo to reestablish LVEF (6) Steroid-induced diabetes mellitus Conclusion/Plan: As per history in her previous admissions. If morning glucose is elevated, will consider adding sliding scale insulin while she is on high doses of IV steroids (7) Sleep apnea Conclusion/Plan: As per history. She apparently does not use a CPAP. (8) Morbid obesity with BMI of 40.0-44.9, adult Conclusion/Plan: As per Hx (9) History of latent tuberculosis Conclusion/Plan: As per old records - Lab Results Fish Bones: 09/07/20 06:15 09/07/20 06:15
--- OUTSIDE RECORDS SUMMARY | 2020-09-07 08:33 | EXTERNAL MEDICAL SUMMARY RPT | Continuity of Care Document ---
:1965 Demographics Phone Unavailable Preferred Language Unknown Marital Status Unknown Muslim Affiliation Unknown Race Unknown Ethnic Group Unknown Author Organization [place] Address [address] [id number] Phone Social History date description facility [phone]
[2020-09-07] MEDS ORDERED: THEOPHYLLINE ER 300 MG TABLET PO SCH (09:00)
[2020-09-07] MEDS: SPIRONOLACTONE 25 MG TABLET PO SCH (10:48)
[2020-09-07] MEDS: METOPROLOL SUCCINATE 25 MG TABLET PO SCH ×2 (10:48→21:34)
[2020-09-07] MEDS: guaiFENesin 600 MG TABLET PO SCH ×2 (10:49→21:35)
[2020-09-07] MEDS: ENOXAPARIN 40 MG/0.4 ML SYRINGE SUBQ SCH ×2 (10:49→21:35)
[2020-09-07] MEDS: SODIUM CHLORIDE FLUSH 0.9% 10 ML SYRINGE IVP SCH ×2 (10:50→17:44)
--- NOTE | 2020-09-07 11:06 | PHARMACY PROGRESS NOTE ---
- Best Possible Medication History Admit Date and Time: 09/07/20 0815 Processed by: Pharmacy Medication History completed: Yes Patient Interview: Completed Secondary Source(s): Pharmacy records, Insurance records Patient was prescribed Eliquis in April. She filled the 90-day prescription but is unable to afford a refill of the medication so she has not been taking Eliquis since the 90-d supply ran out. She also cannot afford refills of her v itamins so she is not taking them anymore. As the person ultimately responsible for medication therapy, providers are able to order a medication from an existing home medication list in [facility] via the "Reconcile Routine" prior to Confirmation of that medication by product support engineer. Such practice is discouraged except when the physician, in their clinical judgment, deems that a medical need exists for a medication without regard to previous use.
[2020-09-07] MEDS: IPRATROPIUM/ALBUTEROL 3 ML NEB INH SCH ×3 (11:10→20:01)
[2020-09-07] MEDS: methylPREDNISolone SUCCINATE 40 MG/ML VIAL IVP SCH ×2 (14:27→21:43)
[2020-09-07] MEDS: SODIUM CHLORIDE 0.9% 1,000 ML IV SCH (17:44)
[2020-09-07] MEDS ORDERED: BUDESONIDE 0.5 MG/2 ML NEB INH SCH (19:00)
[2020-09-07] MEDS: SODIUM CHLORIDE FLUSH 0.9% 10 ML SYRINGE IVP PRN (19:12)
[2020-09-07] MEDS ORDERED: AZITHROMYCIN 250 MG TABLET PO STA (19:22)
[2020-09-07] MEDS: BUDESONIDE 0.5 MG/2 ML NEB INH SCH ×2 (20:01→20:02)
[2020-09-07] MEDS: PROCHLORPERAZINE 10 MG/2 ML VIAL IVP PRN (21:29)
[2020-09-07] MEDS: levoFLOXacin 750 MG/150 ML 750 MG/150 ML BAG IV SCH (21:50)
[2020-09-07] MEDS ORDERED: ALBUTEROL NEB 2.5 MG/3 ML INH PRN (22:04)
[2020-09-08] MEDS: SODIUM CHLORIDE FLUSH 0.9% 10 ML SYRINGE IVP SCH ×3 (00:14→17:15)
[2020-09-08] MEDS: IPRATROPIUM/ALBUTEROL 3 ML NEB INH SCH ×6 (02:23→22:46)
[2020-09-08] MEDS: methylPREDNISolone SUCCINATE 40 MG/ML VIAL IVP SCH ×3 (06:02→22:09)
[2020-09-08] MEDS: BUDESONIDE 0.5 MG/2 ML NEB INH SCH ×2 (06:16→18:19)
[2020-09-08] MEDS: SODIUM CHLORIDE 0.9% 1,000 ML IV SCH (06:50)
[2020-09-08 08:52] LABS: ESTIMATED AVERAGE GLUCOSE 148 mg/dL (70-100); HEMOGLOBIN A1c% 6.8 % (4.27-6.07)
[2020-09-08] MEDS ORDERED: cefTRIAXone 2 GM VIAL IVP SCH (09:00)
[2020-09-08] MEDS ORDERED: AZITHROMYCIN 250 MG TABLET PO SCH (09:00)
[2020-09-08] MEDS: ENOXAPARIN 40 MG/0.4 ML SYRINGE SUBQ SCH ×2 (09:03→20:31)
[2020-09-08] MEDS: polyethylene glycoL 3350 17 GM PACKET PO SCH (09:03)
[2020-09-08] MEDS: METOPROLOL SUCCINATE 25 MG TABLET PO SCH ×2 (09:03→20:32)
[2020-09-08] MEDS: guaiFENesin 600 MG TABLET PO SCH ×2 (09:03→20:31)
[2020-09-08] MEDS: SPIRONOLACTONE 25 MG TABLET PO SCH (09:04)
[2020-09-08 11:30] LABS: CALCIUM 10.1 mg/dL (8.5-10.3); POTASSIUM 3.7 mmol/L (3.5-5.0)
[2020-09-08] MEDS: INSULIN ASPART 300 UNIT/3 ML PEN SUBQ SCH ×2 (17:14→20:31)
--- NOTE | 2020-09-08 17:48 | PROVIDER PROGRESS NOTE ---
Assessment/Plan - Problem List (1) Acute respiratory failure with hypoxia Assessment/Plan: (1) Acute respiratory failure with hypoxia Conclusion/Plan: Likely r/t COPD exacerbation. No evidence of overload on physical exam, normal BNP, awaiting formal echo. We will treat her COPD exacerbation (see next problem). (2) COPD with acute exacerbation Conclusion/Plan: Continue scheduled and PRN Nebs and steroids. Continue scheduled levofloxacin. Continue to monitor oxygen needs. (3) Near syncope Conclusion/Plan: Pt has received two liters NS since admission. Currently about 1800cc net posit imani. Pt morning BP is not orthostatic. Will continue to hold diuretic today. Will stop IV fluids as patient taking PO. Will reevaluate IV hydration after echo results. If no evidence of syncope or dizziness with ambulation. Will consider restarting diuretics tomorrow. (4) Cardiomegaly Conclusion/Plan: Mild cardiomegaly on CXR. Echo ordered. Waiting for echo to evaluate cardiac size and LVEF (5) HFrEF (heart failure with reduced ejection fraction) Conclusion/Plan: Currently there are no signs of volume overload especially with a normal BNP. We will check echo to reestablish LVEF (6) Steroid-induced diabetes mellitus Conclusion/Plan: Hx of DMII A1C 6.8. Not currently on DM meds. Continuing high dose steroids secondary to problem 2. Ordered daily BMP Started on 5 units lantus at night and sliding scale short acting insulin. (7) Sleep apnea Conclusion/Plan: As per history. She apparently does not use a CPAP. Will need discharge education regarding CPAP and assess patient barriers to use. (8) Morbid obesity with BMI of 40.0-44.9, adult Conclusion/Plan: As per Hx. (9) History of latent tuberculosis Conclusion/Plan: As per old records - Current Meds Current Meds: Current Medications Generic Name Dose Route Start Last Admin Trade Name Freq PRN Reason Stop Dose Admin Albuterol/Ipratropium 3 ml 09/08/20 01:00 09/08/20 15:12 Ipratropium/Albuterol 3 Ml Neb INH 3 ml Q4HR ROMAN Administration Budesonide 0.5 mg 09/07/20 09:00 09/08/20 06:16 Budesonide 0.5 Mg/2 Ml Neb INH 0.5 mg RTBID ROMAN Administration Enoxaparin Sodium 40 mg 09/07/20 09:00 09/08/20 09:03 Enoxaparin 40 Mg/0.4 Ml Syringe SUBQ 40 mg BID ROMAN Administration Guaifenesin 600 mg 09/07/20 09:00 09/08/20 09:03 Guaifenesin 600 Mg Tablet PO 600 mg BID ROMAN Administration Levofloxacin 750 mg in 150 mls @ 100 mls/hr 09/07/20 21:00 09/08/20 00:14 Levaquin 750 Mg/150 Ml IV 09/11/20 22:29 Infused Q24H [facility] Infusion Insulin Aspart 1 - 5 unit 09/08/20 17:00 09/08/20 17:14 Insulin Aspart 300 Unit/3 Ml Pen SUBQ Not Given 0800,1200,1700,2100 [facility] Protocol Methylprednisolone 120 mg 09/07/20 14:00 09/08/20 14:15 Methylprednisolone Succinate 40 Mg/Ml Vial IVP 120 mg TID [facility] Administration Metoprolol Succinate 25 mg 09/07/20 09:00 09/08/20 09:03 Metoprolol Succinate 25 Mg Tablet PO 25 mg BID [facility] Administration Polyethylene Glycol 17 gm 09/08/20 09:00 09/08/20 09:03 Polyethylene Glycol 3350 17 Gm Packet PO Not Given DAILY [facility] Prochlorperazine Edisylate 10 mg 09/07/20 20:15 09/07/20 21:29 Prochlorperazine 10 Mg/2 Ml Vial IVP 10 mg Q6HR PRN Administration Nausea / Vomiting Sodium Chloride 10 ml 09/07/20 08:17 09/07/20 19:12 Sodium Chloride Flush 0.9% 10 Ml Syringe IVP 10 ml PRN PRN Administration NEEDED PER PROVIDER ORDERS Sodium Chloride 10 ml 09/07/20 09:00 09/08/20 17:15 Sodium Chloride Flush 0.9% 10 Ml Syringe IVP Not Given 0100,0900,1700 [facility] Spironolactone 25 mg 09/07/20 09:00 09/08/20 09:04 Spironolactone 25 Mg Tablet PO 25 mg DAILY ROMAN Administration - Lab Result Lab results reviewed: Yes Fish Bone Diagrams: 09/07/20 06:15 09/08/20 05:13 - Additional Planning Condition/Complexity: Stable Plan Discussed with:: Patient Time Spent: 15-30 minutes Subjective - Subjective Patient Reports: Headache (09/21 MOSER, asked if she wanted anything for pain, said no not at this time. She was concerned for being labeled as a drug seaker. I told her she has pain medication available and if she wants to please as the primary RN for pain meds.), Shortness of Breath (Continues to have wheeze, but feels that it is better from when she was admitted.) Nursing Reports: No Complaints Objective Vital Signs: Vital Signs - 24 hr 09/07/20 09/07/20 09/07/20 19:40 21:00 22:04 Temperature 36.9 C Heart Rate 60 63 Heart Rate [ Brachial] Heart Rate [ 59 L Radial] Respiratory 20 24 24 Rate Blood Pressure 126/46 L [Left Brachial artery] Blood Pressure [Right Brachial artery] O2 Saturation 96 09/08/20 09/08/20 09/08/20 00:16 02:26 04:29 Temperature 36.7 C 36.7 C Heart Rate 65 Heart Rate [ Brachial] Heart Rate [ 65 59 L Radial] Respiratory 24 20 22 Rate Blood Pressure 128/60 [Left Brachial artery] Blood Pressure 120/61 [Right Brachial artery] O2 Saturation 98 93 09/08/20 09/08/20 09/08/20 06:20 09:00 09:02 Temperature 36.4 C L Heart Rate 65 Heart Rate [ 65 60 Brachial] Heart Rate [ Radial] Respiratory 24 18 Rate Blood Pressure 112/42 L 101/42 L [Left Brachial artery] Blood Pressure [Right Brachial artery] O2 Saturation 96 09/08/20 09/08/20 09/08/20 10:12 11:00 11:59 Temperature Heart Rate 59 L Heart Rate [ Brachial] Heart Rate [ Radial] Respiratory 24 22 18 Rate Blood Pressure [Left Brachial artery] Blood Pressure [Right Brachial artery] O2 Saturation 98 93 09/08/20 09/08/20 09/08/20 12:19 15:12 15:19 Temperature 36.6 C 36.6 C Heart Rate 68 68 Heart Rate [ 70 Brachial] Heart Rate [ Radial] Respiratory 20 18 18 Rate Blood Pressure 137/54 H [Left Brachial artery] Blood Pressure [Right Brachial artery] O2 Saturation 96 93 09/08/20 16:12 Temperature 36.6 C Heart Rate Heart Rate [ 61 Brachial] Heart Rate [ Radial] Respiratory 20 Rate Blood Pressure 123/51 L [Left Brachial artery] Blood Pressure [Right Brachial artery] O2 Saturation 92 Oxygen O2 Source [With Activity] Room air O2 Source Room air Oxygen Flow Rate 2 I&O (Last 24 Hrs): Intake and Output Totals x24h 09/06/20 09/07/20 09/08/20 23:59 23:59 23:59 Intake Total 1301.53 2628.47 Output Total 1200 850 Balance 101.53 1778.47 General: Alert, Oriented x3, Cooperative, Mild distress HEENT: Atraumatic Neck: Supple Lymphatic: no adenopathy Neuro: Alert, Non Focal, Oriented Times 3 Cardiovascular: Regular rate, Normal S1, Normal S2, No murmurs, Other Respiratory: Chest non-tender, Wheezes (Expiratory wheeze heard in all lung mathews. Wheeze is audible without stethoscope.) Abdomen: Normal bowel sounds (Patients states normal is once a week, followed by a couple episodes of diarrhea. No BM in 5 days.), Soft, Other (Tenderness to papation over the RUQ. Pt states this pain is not new. Pt would not allow for deep palpation for hepatomegaly.) Genitourinary: Normal External, No Bleeding, No Discharge Extremities: Normal pulses, No tenderness/swelling, Other (Edema to BLE which are also tender to touch.) - Results Results: Laboratory Results WBC 9.5 x10^3/uL (4.8-10.8) 09/07/20 06:15 RBC 4.71 10^6/uL (4.20-5.40) 09/07/20 06:15 Hgb 15.2 g/dL (12.0-16.0) 09/07/20 06:15 Hct 46.7 % (37.0-47.0) 09/07/20 06:15 MCV 99.2 fL (81.0-99.0) H 09/07/20 06:15 MCH 32.3 pg (27.0-31.0) H 09/07/20 06:15 MCHC 32.5 g/dL (32.0-36.0) 09/07/20 06:15 RDW 12.6 % (12.0-15.0) 09/07/20 06:15 Plt Count 244 10^3/uL (130-450) 09/07/20 06:15 MPV 9.5 fL (7.9-10.8) 09/07/20 06:15 Neut # (Auto) 5.9 10^3/uL (1.5-6.6) 09/07/20 06:15 Lymph # (Auto) 2.5 10^3/uL (1.5-3.5) 09/07/20 06:15 Davison # (Auto) 0.8 10^3/uL (0.0-1.0) 09/07/20 06:15 Eos # (Auto) 0.2 10^3/uL (0.0-0.7) 09/07/20 06:15 Baso # (Auto) 0.1 10^3/uL (0.0-0.1) 09/07/20 06:15 Absolute Nucleated RBC 0.00 x10^3/uL 09/07/20 06:15 Nucleated RBC % 0.0 /100WBC 09/07/20 06:15 Sodium 139 mmol/L (135-145) 09/08/20 05:13 Potassium 3.7 mmol/L (3.5-5.0) 09/08/20 05:13 Chloride 98 mmol/L (101-111) L 09/08/20 05:13 Carbon Dioxide 28 mmol/L (21-32) 09/08/20 05:13 Anion Gap 13.0 (6-13) 09/08/20 05:13 BUN 20 mg/dL (6-20) 09/08/20 05:13 Creatinine 1.0 mg/dL (0.4-1.0) 09/08/20 05:13 Estimated GFR (MDRD) 57 (>89) L 09/08/20 05:13 Glucose 196 mg/dL (70-100) H 09/08/20 05:13 Estimat Average Glucose 148 mg/dL (70-100) H 09/08/20 05:13 Hemoglobin A1c % 6.8 % (4.27-6.07) H 09/08/20 05:13 Lactic Acid 1.9 mmol/L (0.5-2.2) 09/07/20 05:54 Calcium 10.1 mg/dL (8.5-10.3) 09/08/20 05:13 Magnesium 2.4 mg/dL (1.7-2.8) 09/08/20 05:13 Total Bilirubin 0.6 mg/dL (0.2-1.0) 09/07/20 06:15 AST 19 IU/L (10-42) 09/07/20 06:15 ALT 18 IU/L (10-60) 09/07/20 06:15 Alkaline Phosphatase 107 IU/L (42-121) 09/07/20 06:15 Troponin I High Sens 7.5 ng/L (2.3-14.8) 09/07/20 09:57 B-Natriuretic Peptide 68 pg/mL (5-100) 09/07/20 06:15 Total Protein 6.9 g/dL (6.7-8.2) 09/07/20 06:15 Albumin 3.8 g/dL (3.2-5.5) 09/07/20 06:15 Globulin 3.1 g/dL (2.1-4.2) 09/07/20 06:15 Albumin/Globulin Ratio 1.2 (1.0-2.2) 09/07/20 06:15 Lipase 38 U/L (22-51) 09/07/20 06:15 Urine Color LT. YELLOW 09/07/20 07:10 Urine Clarity CLEAR (CLEAR) 09/07/20 07:10 Urine pH 6.5 PH (5.0-7.5) 09/07/20 07:10 Ur Specific [place] 1.015 (1.002-1.030) 09/07/20 07:10 Urine Protein NEGATIVE mg/dL (NEGATIVE) 09/07/20 07:10 Urine Glucose (UA) NEGATIVE mg/dL (NEGATIVE) 09/07/20 07:10 Urine Ketones NEGATIVE mg/dL (NEGATIVE) 09/07/20 07:10 Urine Occult Blood NEGATIVE (NEGATIVE) 09/07/20 07:10 Urine Nitrite NEGATIVE (NEGATIVE) 09/07/20 07:10 Urine Bilirubin NEGATIVE (NEGATIVE) 09/07/20 07:10 Urine Urobilinogen 0.2 (NORMAL) E.U./dL (NORMAL) 09/07/20 07:10 Ur Leukocyte Esterase NEGATIVE (NEGATIVE) 09/07/20 07:10 Ur Microscopic Review NOT INDICATED 09/07/20 07:10 Urine Culture Comments NOT INDICATED 09/07/20 07:10 Nasal Adenovirus (PCR) NOT DETECTED 09/07/20 06:00 Nasal B. parapertussis DNA (PCR) NOT DETECTED 09/07/20 06:00 Nasal Coronavir 229E PCR NOT DETECTED 09/07/20 06:00 Nasal Coronavir HKU1 PCR NOT DETECTED 09/07/20 06:00 Nasal Coronavir NL63 PCR NOT DETECTED 09/07/20 06:00 Nasal Coronavir OC43 PCR NOT DETECTED 09/07/20 06:00 Nasal Enterovir/Rhinovir PCR NOT DETECTED 09/07/20 06:00 Nasal Influenza B PCR NOT DETECTED 09/07/20 06:00 Nasal Influenza A PCR NOT DETECTED 09/07/20 06:00 Nasal Parainfluen 1 PCR NOT DETECTED 09/07/20 06:00 Nasal Parainfluen 2 PCR NOT DETECTED 09/07/20 06:00 Nasal Parainfluen 3 PCR NOT DETECTED 09/07/20 06:00 Nasal Parainfluen 4 PCR NOT DETECTED 09/07/20 06:00 Nasal RSV (PCR) NOT DETECTED 09/07/20 06:00 Nasal B.pertussis DNA PCR NOT DETECTED 09/07/20 06:00 Nasal C.pneumoniae (PCR) NOT DETECTED 09/07/20 06:00 Clarisa Human Metapneumo PCR NOT DETECTED 09/07/20 06:00 Nasal M.pneumoniae (PCR) NOT DETECTED 09/07/20 06:00 Nasal SARS-CoV-2 (PCR) NOT DETECTED 09/07/20 06:00 - Procedures Procedures: Procedures ESOPHAGOGASTRODUODENOSCOPY [EGD] W/CLOSED BIOPSY (11/29/13) INSERTION OF INFUSION DEV INTO SUP VENA CAVA, PERC APPROACH (12/28/17) MANUAL RUPT JOINT ADHES (04/27/14) TOTAL KNEE REPLACEMENT (06/16/14) ABX Reporting Has patient been on IV antibiotics over the past 48 hours?: Yes Current Medications - Current Medications Current Medications: Active Medications Generic Name Dose Route Start Last Admin Trade Name Freq PRN Reason Stop Dose Admin Acetaminophen 650 mg 09/07/20 08:17 Acetaminophen 325 Mg Tablet PO Q4HR PRN Pain or Fever > 38C (100.4F) Albuterol 2.5 mg 09/07/20 22:04 Albuterol Neb 2.5 Mg/3 Ml INH Q2HR PRN Wheezing Albuterol/Ipratropium 3 ml 09/08/20 01:00 09/08/20 15:12 Ipratropium/Albuterol 3 Ml Neb INH 3 ml Q4HR ROMAN Administration Budesonide 0.5 mg 09/07/20 09:00 09/08/20 06:16 Budesonide 0.5 Mg/2 Ml Neb INH 0.5 mg RTBID ROMAN Administration Enoxaparin Sodium 40 mg 09/07/20 09:00 09/08/20 09:03 Enoxaparin 40 Mg/0.4 Ml Syringe SUBQ 40 mg BID ROMAN Administration Guaifenesin 600 mg 09/07/20 09:00 09/08/20 09:03 Guaifenesin 600 Mg Tablet PO 600 mg BID [facility] Administration Levofloxacin 750 mg in 150 mls @ 100 mls/hr 09/07/20 21:00 09/08/20 00:14 Levaquin 750 Mg/150 Ml IV 09/11/20 22:29 Infused Q24H [facility] Infusion Insulin Aspart 1 - 5 unit 09/08/20 17:00 09/08/20 17:14 Insulin Aspart 300 Unit/3 Ml Pen SUBQ Not Given 0800,1200,1700,2100 [facility] Protocol Insulin Glargine 5 unit 09/08/20 21:00 Insulin Glargine 300 Unit/3 Ml Pen SUBQ QPM [facility] Methylprednisolone 120 mg 09/07/20 14:00 09/08/20 14:15 Methylprednisolone Succinate 40 Mg/Ml Vial IVP 120 mg TID [facility] Administration Metoprolol Succinate 25 mg 09/07/20 09:00 09/08/20 09:03 Metoprolol Succinate 25 Mg Tablet PO 25 mg BID [facility] Administration Polyethylene Glycol 17 gm 09/08/20 09:00 09/08/20 09:03 Polyethylene Glycol 3350 17 Gm Packet PO Not Given DAILY [facility] Prochlorperazine Edisylate 10 mg 09/07/20 20:15 09/07/20 21:29 Prochlorperazine 10 Mg/2 Ml Vial IVP 10 mg Q6HR PRN Administration Nausea / Vomiting Sodium Chloride 10 ml 09/07/20 08:17 09/07/20 19:12 Sodium Chloride Flush 0.9% 10 Ml Syringe IVP 10 ml PRN PRN Administration NEEDED PER PROVIDER ORDERS Sodium Chloride 10 ml 09/07/20 09:00 09/08/20 17:15 Sodium Chloride Flush 0.9% 10 Ml Syringe IVP Not Given 0100,0900,1700 [facility] Spironolactone 25 mg 09/07/20 09:00 09/08/20 09:04 Spironolactone 25 Mg Tablet PO 25 mg DAILY [facility] Administration Albuterol Sulfate [Proair Hfa Inhaler] 2 puffs INH Q4H PRN 09/10/17 Albuterol 2.5 mg INH Q4H PRN 12/29/17 Budesonide [Pulmicort] 0.5 mg INH BID 01/31/19 Fluticasone [Flonase] 1 sprays CLARISA BID 01/31/19 Amiodarone HCl 200 mg PO DAILY 09/07/20 Arformoterol Tartrate [Brovana] 15 mcg NEB BID 09/07/20 Aspirin [Aspirin EC] 81 mg PO DAILY 09/07/20 Furosemide 40 mg PO BID 09/07/20 Metoprolol Succinate [Toprol Xl] 100 mg PO BID 09/07/20 Montelukast [Singulair] 10 mg PO QPM 09/07/20
[2020-09-08] MEDS: levoFLOXacin 750 MG/150 ML 750 MG/150 ML BAG IV SCH (20:27)
[2020-09-08] MEDS: INSULIN GLARGINE 300 UNIT/3 ML PEN SUBQ SCH (20:31)
[2020-09-09] MEDS: SODIUM CHLORIDE FLUSH 0.9% 10 ML SYRINGE IVP SCH ×3 (00:21→18:28)
[2020-09-09] MEDS: IPRATROPIUM/ALBUTEROL 3 ML NEB INH SCH ×5 (02:41→19:15)
[2020-09-09 05:45] LABS: CALCIUM 9.8 mg/dL (8.5-10.3); CREATININE 1.1 mg/dL (0.4-1.0); POTASSIUM 3.9 mmol/L (3.5-5.0)
[2020-09-09] MEDS: methylPREDNISolone SUCCINATE 40 MG/ML VIAL IVP SCH ×3 (06:02→21:30)
[2020-09-09] MEDS: SODIUM CHLORIDE FLUSH 0.9% 10 ML SYRINGE IVP PRN ×3 (06:03→14:52)
[2020-09-09] MEDS: BUDESONIDE 0.5 MG/2 ML NEB INH SCH ×2 (07:25→19:15)
[2020-09-09] MEDS: ENOXAPARIN 40 MG/0.4 ML SYRINGE SUBQ SCH ×2 (08:37→21:39)
[2020-09-09] MEDS: INSULIN ASPART 300 UNIT/3 ML PEN SUBQ SCH ×4 (08:37→21:59)
[2020-09-09] MEDS: guaiFENesin 600 MG TABLET PO SCH ×2 (08:38→21:27)
[2020-09-09] MEDS: levoFLOXacin 250 MG TABLET PO SCH (08:38)
[2020-09-09] MEDS: polyethylene glycoL 3350 17 GM PACKET PO SCH (08:38)
[2020-09-09] MEDS: METOPROLOL SUCCINATE 25 MG TABLET PO SCH ×2 (08:38→21:27)
[2020-09-09] MEDS: SPIRONOLACTONE 25 MG TABLET PO SCH (08:38)
--- NOTE | 2020-09-09 10:27 | PROVIDER PROGRESS NOTE ---
Assessment/Plan - Problem List (1) Acute respiratory failure with hypoxia Assessment/Plan: Likely r/t COPD exacerbation. No evidence of overload on physical exam, normal BNP, no significant changes to Echo to suggest cardiac in nature. We will treat her COPD exacerbation (see next problem). (2) COPD with acute exacerbation Assessment/Plan: Continue scheduled and PRN Nebs and steroids. Continue scheduled levofloxacin transition to PO today. No oxygen requirements now, wheezing improved, will continue to monitor. Oxygen therapy as needed. (3) Near syncope Assessment/Plan: Pt has received two liters NS since admission. Currently remains net positive 2.8L. Pt morning BP is remains non-orthostatic. Echo shows EF of 54% with slightly worsening left ventricular end diastolic diameter. IV fluids stopped. Will restart diuretic today. (4) Cardiomegaly Assessment/Plan: Mild cardiomegaly on CXR. Echo shows EF of 54% with slightly worsening left ventricular end diastolic diameter No evidence of valvular disease noted. (5) HFrEF (heart failure with reduced ejection fraction) Assessment/Plan: Currently there are no signs of volume overload especially with a normal BNP. LVEF improved with EF of 54%. (6) Diabetes mellitus type 2 in obese Assessment/Plan: Hx of DMII on lab A1C 6.8. Previous recorded A1c 7.4. Not currently on DM meds. Pt is refusing BS checks and insulin. Pt feels this will cause her to become diabetes. Provided reeducation regarding fact patient was diabetic prior to admission. Educated patient risks of diabetes and elevated BS on COPD and history of HF and DC. Continues to refuse treatment, will need education from PCP to encourage proper med management and understanding of her underlying health conditions. (7) Sleep apnea Qualifiers: Sleep apnea type: unspecified type Qualified Code(s): G47.30 - Sleep apnea, unspecified Assessment/Plan: As per history. She apparently does not use a CPAP. Will need discharge education regarding CPAP and assess patient barriers to use. (8) Morbid obesity with BMI of 40.0-44.9, adult Assessment/Plan: As per Hx currently 5'3" and 118kg. (9) History of latent tuberculosis Assessment/Plan: As per old records - Current Meds Current Meds: Current Medications Generic Name Dose Route Start Last Admin Trade Name Freq PRN Reason Stop Dose Admin Budesonide 0.5 mg 09/07/20 09:00 09/09/20 07:25 Budesonide 0.5 Mg/2 Ml Neb INH 0.5 mg RTBID ROMAN Administration Enoxaparin Sodium 40 mg 09/07/20 09:00 09/09/20 08:37 Enoxaparin 40 Mg/0.4 Ml Syringe SUBQ 40 mg BID ROMAN Administration Guaifenesin 600 mg 09/07/20 09:00 09/09/20 08:38 Guaifenesin 600 Mg Tablet PO 600 mg BID ROMAN Administration Insulin Aspart 1 - 5 unit 09/08/20 17:00 09/09/20 08:37 Insulin Aspart 300 Unit/3 Ml Pen SUBQ Not Given 0800,1200,1700,2100 [facility] Protocol Insulin Glargine 5 unit 09/08/20 21:00 09/08/20 20:31 Insulin Glargine 300 Unit/3 Ml Pen SUBQ Not Given QPM [facility] Levofloxacin 750 mg 09/09/20 09:00 09/09/20 08:38 Levofloxacin 250 Mg Tablet PO 750 mg DAILY ROMAN Administration Methylprednisolone 120 mg 09/07/20 14:00 09/09/20 06:02 Methylprednisolone Succinate 40 Mg/Ml Vial IVP 120 mg TID ROMAN Administration Metoprolol Succinate 25 mg 09/07/20 09:00 09/09/20 08:38 Metoprolol Succinate 25 Mg Tablet PO 25 mg BID ROMAN Administration Polyethylene Glycol 17 gm 09/08/20 09:00 09/09/20 08:38 Polyethylene Glycol 3350 17 Gm Packet PO Not Given DAILY [facility] Prochlorperazine Edisylate 10 mg 09/07/20 20:15 09/07/20 21:29 Prochlorperazine 10 Mg/2 Ml Vial IVP 10 mg Q6HR PRN Administration Nausea / Vomiting Sodium Chloride 10 ml 09/07/20 08:17 09/09/20 06:03 Sodium Chloride Flush 0.9% 10 Ml Syringe IVP 10 ml PRN PRN Administration NEEDED PER PROVIDER ORDERS Sodium Chloride 10 ml 09/07/20 09:00 09/09/20 08:40 Sodium Chloride Flush 0.9% 10 Ml Syringe IVP 10 ml 0100,0900,1700 ROMAN Administration Spironolactone 25 mg 09/07/20 09:00 09/09/20 08:38 Spironolactone 25 Mg Tablet PO 25 mg DAILY ROMAN Administration - Lab Result Lab results reviewed: Yes Fish Bone Diagrams: 09/07/20 06:15 09/09/20 05:30 - Diagnostic Imaging Results Diagnostic Imaging Results: Final report reviewed - Additional Planning Condition/Complexity: Improved Plan Discussed with:: Patient Time Spent: 31-60 minutes Subjective - Subjective Patient Reports: Abdominal Pain (Pt is upset regarding diagnosis of diabetes and doesnt believe it to be accurate. After explaining her A1c and risks related to not managing her blood sugars, especially in the setting steroid therapy, she still does not want insulin and is refusing BS checks.), Headache, Shortness of Breath Objective Vital Signs: Vital Signs - 24 hr 09/08/20 09/08/20 09/08/20 11:00 11:59 12:19 Temperature 36.6 C Heart Rate 59 L Heart Rate [ 70 Brachial] Respiratory 22 18 20 Rate Blood Pressure 137/54 H [Left Brachial artery] Blood Pressure [Right Brachial artery] O2 Saturation 93 96 09/08/20 09/08/20 09/08/20 15:12 15:19 16:12 Temperature 36.6 C 36.6 C Heart Rate 68 68 Heart Rate [ 61 Brachial] Respiratory 18 18 20 Rate Blood Pressure 123/51 L [Left Brachial artery] Blood Pressure [Right Brachial artery] O2 Saturation 93 92 09/08/20 09/08/20 09/08/20 18:20 21:00 22:46 Temperature 36.8 C Heart Rate 65 65 Heart Rate [ 61 Brachial] Respiratory 18 20 24 Rate Blood Pressure [Left Brachial artery] Blood Pressure 137/65 H [Right Brachial artery] O2 Saturation 95 09/09/20 09/09/20 09/09/20 00:24 02:42 05:00 Temperature 36.8 C 36.4 C L Heart Rate 62 Heart Rate [ 61 69 Brachial] Respiratory 22 20 20 Rate Blood Pressure [Left Brachial artery] Blood Pressure 122/47 L 139/60 H [Right Brachial artery] O2 Saturation 95 97 09/09/20 09/09/20 07:25 09:00 Temperature 36.4 C L Heart Rate 65 Heart Rate [ 59 L Brachial] Respiratory 18 24 Rate Blood Pressure 118/52 L [Left Brachial artery] Blood Pressure [Right Brachial artery] O2 Saturation 94 Oxygen O2 Source [With Activity] Room air O2 Source Room air Oxygen Flow Rate 2 I&O (Last 24 Hrs): Intake and Output Totals x24h 09/07/20 09/08/20 09/09/20 23:59 23:59 23:59 Intake Total 1301.53 4258.47 600 Output Total 1200 1650 510 Balance 101.53 2608.47 90 General: Alert, Oriented x3, Cooperative, Mild distress HEENT: Atraumatic Neck: Supple Lymphatic: no adenopathy Neuro: Alert, Non Focal, Oriented Times 3, Other (Persistant MOSER increased in pain intensity to 7/10, but did not want tylenol) Cardiovascular: Regular rate, Normal S1, Normal S2, No murmurs, Other (Distant heart sounds) Respiratory: Chest non-tender, Wheezes (expiratory wheeze in all lung mathews) Abdomen: Normal bowel sounds, Other (RUQ pain to palpation) Genitourinary: Normal External Extremities: Normal pulses, Other (decreased cap refill in lower extremities) Skin: No rashes, No breakdown, No significant lesion - Results Results: Laboratory Results WBC 9.5 x10^3/uL (4.8-10.8) 09/07/20 06:15 RBC 4.71 10^6/uL (4.20-5.40) 09/07/20 06:15 Hgb 15.2 g/dL (12.0-16.0) 09/07/20 06:15 Hct 46.7 % (37.0-47.0) 09/07/20 06:15 MCV 99.2 fL (81.0-99.0) H 09/07/20 06:15 MCH 32.3 pg (27.0-31.0) H 09/07/20 06:15 MCHC 32.5 g/dL (32.0-36.0) 09/07/20 06:15 RDW 12.6 % (12.0-15.0) 09/07/20 06:15 Plt Count 244 10^3/uL (130-450) 09/07/20 06:15 MPV 9.5 fL (7.9-10.8) 09/07/20 06:15 Neut # (Auto) 5.9 10^3/uL (1.5-6.6) 09/07/20 06:15 Lymph # (Auto) 2.5 10^3/uL (1.5-3.5) 09/07/20 06:15 [place] # (Auto) 0.8 10^3/uL (0.0-1.0) 09/07/20 06:15 Eos # (Auto) 0.2 10^3/uL (0.0-0.7) 09/07/20 06:15 Baso # (Auto) 0.1 10^3/uL (0.0-0.1) 09/07/20 06:15 Absolute Nucleated RBC 0.00 x10^3/uL 09/07/20 06:15 Nucleated RBC % 0.0 /100WBC 09/07/20 06:15 Sodium 138 mmol/L (135-145) 09/09/20 05:30 Potassium 3.9 mmol/L (3.5-5.0) 09/09/20 05:30 Chloride 99 mmol/L (101-111) L 09/09/20 05:30 Carbon Dioxide 29 mmol/L (21-32) 09/09/20 05:30 Anion Gap 10.0 (6-13) 09/09/20 05:30 BUN 24 mg/dL (6-20) H 09/09/20 05:30 Creatinine 1.1 mg/dL (0.4-1.0) H 09/09/20 05:30 Estimated GFR (MDRD) 51 (>89) L 09/09/20 05:30 Glucose 235 mg/dL (70-100) H 09/09/20 05:30 Estimat Average Glucose 148 mg/dL (70-100) H 09/08/20 05:13 Hemoglobin A1c % 6.8 % (4.27-6.07) H 09/08/20 05:13 Lactic Acid 1.9 mmol/L (0.5-2.2) 09/07/20 05:54 Calcium 9.8 mg/dL (8.5-10.3) 09/09/20 05:30 Magnesium 2.4 mg/dL (1.7-2.8) 09/08/20 05:13 Total Bilirubin 0.6 mg/dL (0.2-1.0) 09/07/20 06:15 AST 19 IU/L (10-42) 09/07/20 06:15 ALT 18 IU/L (10-60) 09/07/20 06:15 Alkaline Phosphatase 107 IU/L (42-121) 09/07/20 06:15 Troponin I High Sens 7.5 ng/L (2.3-14.8) 09/07/20 09:57 B-Natriuretic Peptide 68 pg/mL (5-100) 09/07/20 06:15 Total Protein 6.9 g/dL (6.7-8.2) 09/07/20 06:15 Albumin 3.8 g/dL (3.2-5.5) 09/07/20 06:15 Globulin 3.1 g/dL (2.1-4.2) 09/07/20 06:15 Albumin/Globulin Ratio 1.2 (1.0-2.2) 09/07/20 06:15 Lipase 38 U/L (22-51) 09/07/20 06:15 Urine Color LT. YELLOW 09/07/20 07:10 Urine Clarity CLEAR (CLEAR) 09/07/20 07:10 Urine pH 6.5 PH (5.0-7.5) 09/07/20 07:10 Ur Specific [place] 1.015 (1.002-1.030) 09/07/20 07:10 Urine Protein NEGATIVE mg/dL (NEGATIVE) 09/07/20 07:10 Urine Glucose (UA) NEGATIVE mg/dL (NEGATIVE) 09/07/20 07:10 Urine Ketones NEGATIVE mg/dL (NEGATIVE) 09/07/20 07:10 Urine Occult Blood NEGATIVE (NEGATIVE) 09/07/20 07:10 Urine Nitrite NEGATIVE (NEGATIVE) 09/07/20 07:10 Urine Bilirubin NEGATIVE (NEGATIVE) 09/07/20 07:10 Urine Urobilinogen 0.2 (NORMAL) E.U./dL (NORMAL) 09/07/20 07:10 Ur Leukocyte Esterase NEGATIVE (NEGATIVE) 09/07/20 07:10 Ur Microscopic Review NOT INDICATED 09/07/20 07:10 Urine Culture Comments NOT INDICATED 09/07/20 07:10 Nasal Adenovirus (PCR) NOT DETECTED 09/07/20 06:00 Nasal B. parapertussis DNA (PCR) NOT DETECTED 09/07/20 06:00 Nasal Coronavir 229E PCR NOT DETECTED 09/07/20 06:00 Nasal Coronavir HKU1 PCR NOT DETECTED 09/07/20 06:00 Nasal Coronavir NL63 PCR NOT DETECTED 09/07/20 06:00 Nasal Coronavir OC43 PCR NOT DETECTED 09/07/20 06:00 Nasal Enterovir/Rhinovir PCR NOT DETECTED 09/07/20 06:00 Nasal Influenza B PCR NOT DETECTED 09/07/20 06:00 Nasal Influenza A PCR NOT DETECTED 09/07/20 06:00 Nasal Parainfluen 1 PCR NOT DETECTED 09/07/20 06:00 Nasal Parainfluen 2 PCR NOT DETECTED 09/07/20 06:00 Nasal Parainfluen 3 PCR NOT DETECTED 09/07/20 06:00 Nasal Parainfluen 4 PCR NOT DETECTED 09/07/20 06:00 Nasal RSV (PCR) NOT DETECTED 09/07/20 06:00 Nasal B.pertussis DNA PCR NOT DETECTED 09/07/20 06:00 Nasal C.pneumoniae (PCR) NOT DETECTED 09/07/20 06:00 Clarisa Human Metapneumo PCR NOT DETECTED 09/07/20 06:00 Nasal M.pneumoniae (PCR) NOT DETECTED 09/07/20 06:00 Nasal SARS-CoV-2 (PCR) NOT DETECTED 09/07/20 06:00 - Procedures Procedures: Procedures ESOPHAGOGASTRODUODENOSCOPY [EGD] W/CLOSED BIOPSY (11/29/13) INSERTION OF INFUSION DEV INTO SUP VENA CAVA, PERC APPROACH (12/28/17) MANUAL RUPT JOINT ADHES (04/27/14) TOTAL KNEE REPLACEMENT (06/16/14) ABX Reporting Has patient been on IV antibiotics over the past 48 hours?: Yes Current Medications - Current Medications Current Medications: Active Medications Generic Name Dose Route Start Last Admin Trade Name Freq PRN Reason Stop Dose Admin Acetaminophen 650 mg 09/07/20 08:17 Acetaminophen 325 Mg Tablet PO Q4HR PRN Pain or Fever > 38C (100.4F) Albuterol 2.5 mg 09/07/20 22:04 Albuterol Neb 2.5 Mg/3 Ml INH Q2HR PRN Wheezing Albuterol/Ipratropium 3 ml 09/09/20 09:49 Ipratropium/Albuterol 3 Ml Neb INH RTQID ROMAN Budesonide 0.5 mg 09/07/20 09:00 09/09/20 07:25 Budesonide 0.5 Mg/2 Ml Neb INH 0.5 mg RTBID ROMAN Administration Enoxaparin Sodium 40 mg 09/07/20 09:00 09/09/20 08:37 Enoxaparin 40 Mg/0.4 Ml Syringe SUBQ 40 mg BID [facility] Administration Guaifenesin 600 mg 09/07/20 09:00 09/09/20 08:38 Guaifenesin 600 Mg Tablet PO 600 mg BID ROMAN Administration Insulin Aspart 1 - 5 unit 09/08/20 17:00 09/09/20 08:37 Insulin Aspart 300 Unit/3 Ml Pen SUBQ Not Given 0800,1200,1700,2100 [facility] Protocol Insulin Glargine 5 unit 09/08/20 21:00 09/08/20 20:31 Insulin Glargine 300 Unit/3 Ml Pen SUBQ Not Given QPM [facility] Levofloxacin 750 mg 09/09/20 09:00 09/09/20 08:38 Levofloxacin 250 Mg Tablet PO 750 mg DAILY [facility] Administration Methylprednisolone 120 mg 09/07/20 14:00 09/09/20 06:02 Methylprednisolone Succinate 40 Mg/Ml Vial IVP 120 mg TID [facility] Administration Metoprolol Succinate 25 mg 09/07/20 09:00 09/09/20 08:38 Metoprolol Succinate 25 Mg Tablet PO 25 mg BID [facility] Administration Polyethylene Glycol 17 gm 09/08/20 09:00 09/09/20 08:38 Polyethylene Glycol 3350 17 Gm Packet PO Not Given DAILY [facility] Prochlorperazine Edisylate 10 mg 09/07/20 20:15 09/07/20 21:29 Prochlorperazine 10 Mg/2 Ml Vial IVP 10 mg Q6HR PRN Administration Nausea / Vomiting Sodium Chloride 10 ml 09/07/20 08:17 09/09/20 06:03 Sodium Chloride Flush 0.9% 10 Ml Syringe IVP 10 ml PRN PRN Administration NEEDED PER PROVIDER ORDERS Sodium Chloride 10 ml 09/07/20 09:00 09/09/20 08:40 Sodium Chloride Flush 0.9% 10 Ml Syringe IVP 10 ml 0100,0900,1700 [facility] Administration Spironolactone 25 mg 09/07/20 09:00 09/09/20 08:38 Spironolactone 25 Mg Tablet PO 25 mg DAILY ROMAN Administration Albuterol Sulfate [Proair Hfa Inhaler] 2 puffs INH Q4H PRN 09/10/17 Albuterol 2.5 mg INH Q4H PRN 12/29/17 Budesonide [Pulmicort] 0.5 mg INH BID 01/31/19 Fluticasone [Flonase] 1 sprays CLARISA BID 01/31/19 Amiodarone HCl 200 mg PO DAILY 09/07/20 Arformoterol Tartrate [Brovana] 15 mcg NEB BID 09/07/20 Aspirin [Aspirin EC] 81 mg PO DAILY 09/07/20 Furosemide 40 mg PO BID 09/07/20 Metoprolol Succinate [Toprol Xl] 100 mg PO BID 09/07/20 Montelukast [Singulair] 10 mg PO QPM 09/07/20
[2020-09-09] MEDS: PROCHLORPERAZINE 10 MG/2 ML VIAL IVP PRN ×2 (14:51→21:33)
--- NOTE | 2020-09-09 16:52 | CT Report ---
PROCEDURE: HEAD WO INDICATIONS: headache TECHNIQUE: Noncontrast 4.5 mm thick angled axial sections acquired from the foramen magnum to the vertex. For r adiation dose reduction, the following was used: automated exposure control, adjustment of mA and/or kV according to patient size. COMPARISON: 02/12/2017 FINDINGS: Image quality: Streak artifact can be seen through the skull base. CSF spaces: Basal cisterns are patent. No extra-axial fluid collections. Ventricles are normal in size and shape. Brain: No midline shift. No intracranial masses or hemorrhage. Garcia-white matter interface is norm al. Skull and face: Calvarium and visualized facial bones are intact, without suspicious lesions. Sinuses: Visualized sinuses and mastoids are clear. IMPRESSION: A cause of headache cannot be seen on these images. No intracranial hemorrhage is seen. The previously described paranasal sinus disease is no longer seen. Reviewed by: Jaime Fowler MD on 09/09/2020 3:51 PM JORGE L Approved by: Jaime Fowler MD on 09/09/2020 3:51 PM JORGE L Station ID: [id number]
[2020-09-09] MEDS ORDERED: PROMETHAZINE INJ 25 MG in SODIUM CHLORIDE 0.9% 50 ML IV PRN (19:06)
[2020-09-09] MEDS: INSULIN GLARGINE 300 UNIT/3 ML PEN SUBQ SCH (22:00)
[2020-09-10] MEDS: SODIUM CHLORIDE FLUSH 0.9% 10 ML SYRINGE IVP SCH ×3 (01:10→19:22)
[2020-09-10] MEDS: SODIUM CHLORIDE FLUSH 0.9% 10 ML SYRINGE IVP PRN ×3 (05:31→15:02)
[2020-09-10] MEDS: methylPREDNISolone SUCCINATE 40 MG/ML VIAL IVP SCH ×3 (05:31→22:39)
[2020-09-10 05:43] LABS: CALCIUM 9.4 mg/dL (8.5-10.3); CREATININE 1.1 mg/dL (0.4-1.0); POTASSIUM 4.1 mmol/L (3.5-5.0)
[2020-09-10] MEDS: INSULIN ASPART 300 UNIT/3 ML PEN SUBQ SCH ×4 (07:25→21:02)
[2020-09-10] MEDS: BUDESONIDE 0.5 MG/2 ML NEB INH SCH ×2 (07:49→19:05)
[2020-09-10] MEDS: IPRATROPIUM/ALBUTEROL 3 ML NEB INH SCH ×4 (07:49→19:05)
[2020-09-10] MEDS: ENOXAPARIN 40 MG/0.4 ML SYRINGE SUBQ SCH ×2 (08:00→22:45)
[2020-09-10] MEDS: guaiFENesin 600 MG TABLET PO SCH ×2 (08:00→22:39)
[2020-09-10] MEDS: levoFLOXacin 250 MG TABLET PO SCH (08:00)
[2020-09-10] MEDS: SPIRONOLACTONE 25 MG TABLET PO SCH (08:00)
[2020-09-10] MEDS: polyethylene glycoL 3350 17 GM PACKET PO SCH (08:01)
[2020-09-10] MEDS: METOPROLOL SUCCINATE 25 MG TABLET PO SCH ×2 (08:01→22:39)
[2020-09-10] MEDS: PROCHLORPERAZINE 10 MG/2 ML VIAL IVP PRN ×2 (12:31→19:21)
[2020-09-10] MEDS: BUTALB/ACETAM/CAFF 50/325/40MG TABLET PO PRN (19:21)
[2020-09-10] MEDS: INSULIN GLARGINE 300 UNIT/3 ML PEN SUBQ SCH (21:02)
[2020-09-11] MEDS: SODIUM CHLORIDE FLUSH 0.9% 10 ML SYRINGE IVP SCH ×2 (01:00→09:13)
[2020-09-11] MEDS: BUTALB/ACETAM/CAFF 50/325/40MG TABLET PO PRN (04:13)
[2020-09-11 05:28] LABS: CALCIUM 9.3 mg/dL (8.5-10.3); POTASSIUM 4.5 mmol/L (3.5-5.0)
[2020-09-11] MEDS: methylPREDNISolone SUCCINATE 40 MG/ML VIAL IVP SCH (06:35)
[2020-09-11] MEDS: BUDESONIDE 0.5 MG/2 ML NEB INH SCH (08:20)
[2020-09-11] MEDS: IPRATROPIUM/ALBUTEROL 3 ML NEB INH SCH ×2 (08:20→11:34)
[2020-09-11] MEDS: INSULIN ASPART 300 UNIT/3 ML PEN SUBQ SCH ×2 (09:06→11:36)
[2020-09-11] MEDS: polyethylene glycoL 3350 17 GM PACKET PO SCH (09:11)
[2020-09-11] MEDS: levoFLOXacin 250 MG TABLET PO SCH (09:11)
[2020-09-11] MEDS: guaiFENesin 600 MG TABLET PO SCH (09:11)
[2020-09-11] MEDS: SPIRONOLACTONE 25 MG TABLET PO SCH (09:11)
[2020-09-11] MEDS: ENOXAPARIN 40 MG/0.4 ML SYRINGE SUBQ SCH (09:12)
[2020-09-11] MEDS: METOPROLOL SUCCINATE 25 MG TABLET PO SCH (09:13)
[2020-09-11 09:52] VITALS: BP 128/48
--- NOTE | 2020-09-11 11:32 | Discharge Plan ---
Discharge Plan Problem Reviewed?: Yes Disposition: Home, Self Care Condition: Good Diet: Regular Activity Restrictions: Activity as Tolerated Shower Restrictions: No Driving Restrictions: No Health Concerns: You presented to our emergency room with wheezing after mowing the lawn. You had also just been in labor and delivery watching your new great granddaughter get delivered and almost passed out on labor and delivery. In the emergency room and found to have wheezing, low oxygen levels and we admitted you for nebulizers, steroids, and to make sure that you were not passing out because of heart attack, stroke, blocked arteries or valve heart problems. None of those were found. You also shared with us that you run out of your medicine since May of this year since you had lost your insurance. After all of this treatment you have improved but you have a terrible headache. That headache has been getting worse over the last few years. We have also di agnosed you with uncontrolled diabetes. Your previous primary care provider has been checking your sugars here and there and he does feel you have diabetes when we review his notes. You have just been diet control and not needed medications up until now. Plan of Treatment: 1. Reestablish yourself with a primary care provider so that you can get prescriptions 2. Consider entering into a cardiopulmonary rehab program that will help your insurance tremendously 3. Make sure you take your long-acting bronchodilator daily and your short acting rescue inhaler as needed Care Goals: To have your asthma under control and not have to come back to the hospital Assessment: Patient will try and follow through with follow-ups and prescriptions No Smoking: If you smoke, Please STOP! Call for help. Follow-up with: Oren Del Real MD [Primary Care Provider] -
--- NOTE | 2020-09-11 14:23 | DISCHARGE SUMMARY ---
Discharge Summary Admit Date: 09/07/20 Discharge Date: 09/11/20 Discharging Provider: Loretta Coles MD Primary Care Provider: Oren Del Real MD Code Status: Attempt Resuscitation Condition at Discharge: Good Discharge Disposition: 01 Home, Self Care - DIAGNOSES Discharge Diagnoses with Status of Each Condition: 1. Acute respiratory failure with hypoxia 2. COPD with acute exacerbation 3. Near syncope 4. Heart failure with reduced ejection fraction 5. Steroid-induced diabetes mellitus 6. Obstructive sleep apnea 7. Morbid obesity 8. History of latent tuberculosis 9. Headache - HPI History of Present Illness: This is a 55-year-old white female with a history of latent TB, COPD, gets COPD exacerbations in the spring when plants blossom, history of cardiomyopathy with last ejection fraction 40 to 45% 1 year ago, remote history of cardiac arrest, steroid-induced diabetes, morbid obesity, sleep apnea not compliant with CPAP. Patient states that she has been getting more short of breath over the past 1 week as everything is blooming. She had to mow the grass 2 days ago which also worsened her wheezing and shortness of breath. Overnight she was watching her granddaughter deliver a baby in our Labor and Delivery unit and became near syncopal and was brought to the ER. She was found to have significant wheezing and tachypnea and had marked effort in work of breathing. She was given IV Lasix, nebulizers, Decadron and oxygen. She desaturated on room air to 88%. The Hospitalist team was contacted for further inpatient management of a COPD exacerbation. 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 SPECIAL EDUCATION: reports: Ectopic , Other (cervical cancer at age 18) : reports: None, Frequency HEENT: reports: Chronic vision loss, Chronic sinusitis, Chronic hearing loss Psych: reports: Depression, Anxiety, Claustrophobia Musculoskeletal: reports: Osteoarthritis, Fatigue, Chronic back pain Derm: reports: None MRSA Hx?: No - Past Surgical History General: reports: Cholecystectomy, EGD Ortho: reports: Knee replacement /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 Chest x-ray with mild cardiomegaly, suspect mild acute CHF. Pacemaker and leads appear normal. 2. Head CT without intracranial hemorrhage, previously described paranasal sinus disease is no longer seen. 3. Blood cultures negative after 2 days 4. Sputum Gram stain with many epithelial cells, gram-positive cocci, gram- positive cocci in pairs, gram-positive rods and gram-negative rods. - HOSPITAL COURSE Hospital Course: The patient was started on long-acting bronchodilators, short acting bronchod ilators, steroids. Steroids induced worsening of her baseline glucose. Before steroids were started A1c was checked and she was 6.8%. She is stoutly maintains that she does not have diabetes and it is only because of steroids. In review of her medical records with her primary care provider she does have diabetes, and for the most part it is diet controlled. Steroids definitely make it worse. During her stay she refused glucose checks or treatment of the glucose. During her stay she also refused CPAP. She says that she acknowledges that she has obstructive sleep apnea and does not want to use our machine because of claustrophobia. Headache was a problem and CT of the head was done and was negative. We did think about doing an MRI because the headache continued during her stay. It is unilateral, right side, associated with occasional blurred vision and occasional "black spots" floating in front of her eyes but no neurological exam findings. She is too large at 113 kg with her girth to fit on the MRI table. She also balks at an MRI because she is severely claustrophobic. As such if an MRI needs to be done it will need to be done in the outpatient setting with an open MRI center. Initially we thought that her exacerbation was due to allergies since she had recently mowed the lawn. However she later shared with us that she has not had any of her medications since May. She used to be on her 's insurance and it was discontinued before she realized what was happening. She never had a chance to go to a new insurance and as such lost the ability to get refills. Echocardiogram (done for her description of near her syncope) showed improvement. In 2017 her ejection fraction was 50 to 55%. In 2018 she was down to 40 to 45%. July 2019 her ejection fraction was 40% with moderate global hypokinesis and a dilated left ventricle. With the echocardiogram here she has moderate left ventricular enlargement, pacemaker leads in place, and ejection fraction of 54%. She has normal RVSP pressures. It took quite some time to break her wheezing. The main problem at discharge was headache. She herself states that she is almost back to baseline. She does not want to be here anymore and would like to go home. Exam at discharge had a temperature of 36.5. Pulse 58. Supine blood pressure 128/48. Sitting blood pressure 122/57. Standing blood pressure 111/61. She is 94 to 96% on room air. She is 5 feet 3 inches tall and weighs 113 pounds. She is a short statured large abdominal girth female who looks her stated age. Neck is difficult to assess for JVD but supple without bruits. The last few days have been scattered faint wheezing and there is none today. That is at rest. When she tries to get up or speak, she does get dyspneic, still has occasional wheezing. No tachypnea no increased respiratory effort. She has a regular rate and rhythm. Huge abdominal pannus is nontender with hypoactive bowel sounds. She does have 1+ edema. Greater than 30 minutes was spent coordinating discharge. - ALLERGIES Allergies/Adverse Reactions: Allergies Allergy/AdvReac Type Severity Reaction Status Date / Time codeine [Codeine] Allergy Severe Swelling/Hi Verified 11/19/19 10:16 ves erythromycin base Allergy Severe Anaphylaxis Verified 11/19/19 10:16 [Erythromycin Base] gabapentin Allergy Severe Anaphylaxis Verified 11/19/19 10:16 Latex, Natural Rubber Allergy Severe Blisters Verified 11/19/19 10:16 pamabrom [From Midol] Allergy Severe Respiratory Verified 11/19/19 10:16 pyrilamine maleate * Allergy Severe Respiratory Verified 11/19/19 10:16 [From Midol] shellfish derived Allergy Severe Anaphylaxis Verified 11/19/19 10:16 venom-honey bee Allergy Severe Anaphylaxis Verified 11/19/19 10:16 [bee venom (honey bee)] chlorhexidine Allergy Intermediate Rash Verified 11/19/19 10:16 morphine Allergy Respiratory Verified 11/19/19 10:16 ondansetron Allergy Respiratory Verified 07/31/19 08:53 piperacillin [From Zosyn] AdvReac Rash Verified 07/31/19 08:53 tazobactam [From Zosyn] AdvReac Rash Verified 07/31/19 08:53 - MEDICATIONS Home Medications: Ambulatory Orders Medication Instructions Recorded Confirmed Albuterol Sulfate [Proair Hfa 2 puffs INH Q4H PRN 09/10/17 09/07/20 Inhaler] Albuterol 2.5 mg INH Q4H PRN 12/29/17 09/07/20 Budesonide [Pulmicort] 0.5 mg INH BID 01/31/19 09/07/20 Fluticasone [Flonase] 1 sprays CLARISA BID 01/31/19 09/07/20 Spironolactone [Aldactone] 25 mg PO DAILY #30 tablet 08/03/19 09/07/20 Amiodarone HCl 200 mg PO DAILY 09/07/20 09/07/20 Arformoterol Tartrate [Brovana] 15 mcg NEB BID 09/07/20 09/07/20 Aspirin [Aspirin EC] 81 mg PO DAILY 09/07/20 09/07/20 Furosemide 40 mg PO BID 09/07/20 09/07/20 Metoprolol Succinate [Toprol Xl] 100 mg PO BID 09/07/20 09/07/20 Montelukast [Singulair] 10 mg PO QPM 09/07/20 09/07/20 - LABS Result Diagrams: 09/07/20 06:15 09/11/20 05:05
== END 2020-09-11 12:30 | disposition home or self-care (01) | DRG 189 ==
LOC: ED 05:14 → MS2 08:15
PROVIDERS: ADMIT Internal Medicine; ATTEND Internal Medicine
DX: R06.03 Acute respiratory distress (principal); J96.01 Acute respiratory failure with hypoxia; R09.02 Hypoxemia; Z68.41 Body mass index [BMI] 40.0-44.9, adult; I50.20 Unspecified systolic (congestive) heart failure; I43 Cardiomyopathy in diseases classified elsewhere; J43.9 Emphysema, unspecified; E11.9 Type 2 diabetes mellitus without complications; R55 Syncope and collapse; G47.33 Obstructive sleep apnea (adult) (pediatric); J45.909 Unspecified asthma, uncomplicated; E66.01 Morbid (severe) obesity due to excess calories; R51.9 Headache, unspecified; I50.9 Heart failure, unspecified; E78.00 Pure hypercholesterolemia, unspecified; I11.0 Hypertensive heart disease with heart failure; R01.1 Cardiac murmur, unspecified; I48.91 Unspecified atrial fibrillation; I25.10 Atherosclerotic heart disease of native coronary artery without angina pectoris; Z20.822 Contact with and (suspected) exposure to COVID-19; F40.240 Claustrophobia; H54.7 Unspecified visual loss; Z91.120 Patient's intentional underdosing of medication regimen due to financial hardship; H91.90 Unspecified hearing loss, unspecified ear; Z96.659 Presence of unspecified artificial knee joint; R35.0 Frequency of micturition; Z79.82 Long term (current) use of aspirin; Z91.19 Patient's noncompliance with other medical treatment and regimen; Z79.899 Other long term (current) drug therapy; Z87.01 Personal history of pneumonia (recurrent); Z86.15 Personal history of latent tuberculosis infection; Z86.74 Personal history of sudden cardiac arrest; Z87.891 Personal history of nicotine dependence; Z95.0 Presence of cardiac pacemaker; I25.2 Old myocardial infarction
CPT/HCPCS: 36415; 70450; 71045; 80048; 80053; 81003; 83036; 83605; 83690; 83735; 83880; 84484; 85025; 87040; 87205; 87631; 93005; 93306; 94640; 96374; 99284; 99285; A9270; J1650; J7626; 0202U; 81001; 87070; 87086

== ENCOUNTER 2020-09-16 13:52 | Outpatient (CLI) | payer MEDICARE, OTHER ==
[2020-09-16 18:13] LABS: ALBUMIN 3.8 g/dL (3.2-5.5); ALBUMIN/GLOBULIN RATIO 1.3 (1.0-2.2); BILIRUBIN,TOTAL 0.5 mg/dL (0.2-1.0); CALCIUM 9.1 mg/dL (8.5-10.3); CREATININE 1.2 mg/dL (0.4-1.0); POTASSIUM 3.9 mmol/L (3.5-5.0); TOTAL PROTEIN 6.8 g/dL (6.7-8.2)
[2020-09-16 18:32] LABS: BASOPHILS # (AUTO) 0.1 10^3/uL (0.0-0.1); BASOPHILS % (AUTO) 0.4 %; EOSINOPHILS # (AUTO) 0.3 10^3/uL (0.0-0.7); EOSINOPHILS % (AUTO) 2.7 %; HCT - HEMATOCRIT 47.4 % (37.0-47.0); HGB - HEMOGLOBIN 15.5 g/dL (12.0-16.0); LYMPHOCYTES # (AUTO) 3.6 10^3/uL (1.5-3.5); MEAN CORPUSCULAR HEMOGLOBIN 32.6 pg (27.0-31.0); MEAN CORPUSCULAR HGB CONC 32.7 g/dL (32.0-36.0); MEAN CORPUSCULAR VOLUME 99.8 fL (81.0-99.0); MEAN PLATELET VOLUME 10.6 fL (7.9-10.8); MONOCYTES # (AUTO) 1.1 10^3/uL (0.0-1.0); MONOCYTES % (AUTO) 8.9 %; NEUTROPHILS # (AUTO) 7.4 10^3/uL (1.5-6.6); NEUTROPHILS % (AUTO) 58.1 %; PLT - PLATELET COUNT 209 10^3/uL (130-450); RED BLOOD COUNT 4.75 10^6/uL (4.20-5.40); RED CELL DISTRIBUTION WIDTH 13.2 % (12.0-15.0); WHITE BLOOD COUNT 12.7 x10^3/uL (4.8-10.8)
[2020-09-16 19:55] LABS: ESTIMATED AVERAGE GLUCOSE 160 mg/dL (70-100); HEMOGLOBIN A1c% 7.2 % (4.27-6.07)
== END 2020-09-16 13:53 | disposition home or self-care (01) ==
LOC: LAB.N 13:52
PROVIDERS: ATTEND Nurse Practitioner Family
DX: J44.1 Chronic obstructive pulmonary disease with (acute) exacerbation (principal); E11.9 Type 2 diabetes mellitus without complications
CPT/HCPCS: 36415; 80053; 83036; 85025

== ENCOUNTER 2020-09-16 14:02 | Outpatient (CLI) | payer MEDICARE, OTHER ==
--- NOTE | 2020-09-16 14:59 | XRAY Report ---
PROCEDURE: Chest 2 View X-Ray INDICATIONS: COPD TECHNIQUE: 2 view(s) of the chest. COMPARISON: None. FINDINGS: Surgical changes and devices: Left chest wall pacemaker leads are seen in the region of right atrium and right ventricle. Lungs and pleura: No pleural effusions or pneumothorax. There is mild hyperinflation. Likely small c alcified granuloma is again seen in right upper lobe. No focal infiltrate. Mediastinum: Mediastinal contours are normal. Heart size is enlarged. Bones and chest wall: No suspicious bony abnormalities. Soft tissues appear unremarkable. IMPRESSION: Mild hyperinflation. No focal infiltrate, pleural effusion or pneumothorax. Reviewed by: Edgar Bueno MD on 09/16/2020 2:57 PM PDT Approved by: Edgar Bueno MD on 09/16/2020 2:57 PM PDT Station ID: [id number]
== END 2020-09-16 14:03 | disposition home or self-care (01) ==
LOC: DI.N 14:02
PROVIDERS: ATTEND Nurse Practitioner Family
DX: J44.1 Chronic obstructive pulmonary disease with (acute) exacerbation (principal); E11.9 Type 2 diabetes mellitus without complications
CPT/HCPCS: 36415; 80053; 83036; 85025

== ENCOUNTER 2020-10-24 12:29 | Inpatient (IN) | payer MEDICARE, MEDICAID ==
--- OUTSIDE RECORDS SUMMARY | 2020-10-24 12:32 | EXTERNAL MEDICAL SUMMARY RPT | Continuity of Care Document ---
:1965 Demographics Phone Unavailable Preferred Language Unknown Marital Status Unknown Episcopal Affiliation Unknown Race Unknown Ethnic Group Unknown Author Organization [facility] Address [address] [phone] Phone Allergies Encounters Medications Problems Results
--- OUTSIDE RECORDS SUMMARY | 2020-10-24 12:37 | EXTERNAL MEDICAL SUMMARY RPT | Continuity of Care Document ---
:1965 Demographics Phone Unavailable Preferred Language Unknown Marital Status Unknown Mandaeism Affiliation Unknown Race Unknown Ethnic Group Unknown Author Organization [facility] Address [address] [phone] Phone Allergies Encounters Medications Problems Results
[2020-10-24] MEDS ORDERED: IPRATROPIUM/ALBUTEROL 3 ML NEB INH STA (12:49)
[2020-10-24] MEDS ORDERED: methylPREDNISolone SUCCINATE 125 MG/2 ML VIAL IVP STA (12:57)
--- NOTE | 2020-10-24 12:58 | ED Physician Documentation ---
History of Present Illness - Stated complaint Stated Complaint: SOA/DIZZINESS - Chief complaint Chief Complaint: Resp - Additonal information Additional information: 55-year-old female who carries a history COPD, heart failure with reduced ej ection fraction, obstructive sleep apnea, morbid obesity comes to the emergency department with 3 days of shortness of air productive cough and orthopnea. She was hospitalized for 4 days in late August with acute respiratory failure and hypoxia. She is a former smoker quitting 1 year ago. He she does not require home O2 but stated that 3 days ago she began developing a cough and was unable to exert herself without significant shortness of breath. She has been unable to lay supine for at least 3 days. She presents to the emergency department quite dyspneic and labored respiratory rate approaching 30. She was 87% on room air therefore was placed on 3 L nasal cannula with resultant rise in saturations to 92%. Review of Systems Constitutional: denies: Fever, Chills Eyes: reports: Reviewed and negative Ears: reports: Reviewed and negative Nose: reports: Reviewed and negative Throat: reports: Reviewed and negative Cardiac: reports: Palpitations. denies: Chest pain / pressure, Pedal edema, Calf pain Respiratory: reports: Dyspnea, Cough, Wheezing. denies: Hemoptysis GI: denies: Abdominal Pain, Nausea, Vomiting : denies: Dysuria, Frequency Skin: denies: Rash, Lesions Musculoskeletal: denies: Neck pain, Back pain Neurologic: reports: Reviewed and negative PD PAST MEDICAL HISTORY - Past Medical History Cardiovascular: Congestive heart failure, Hypertension, High cholesterol, Coronary artery disease, [place], Atrial fibrillation, Murmur, Arrhythmia Respiratory: Asthma, COPD, Emphysema, Pneumonia, Shortness of breath, Other (recurrent PNA) Neuro: Headaches, Tremors Endocrine/Autoimmune: None GI: GERD QA ARCHITECT: Ectopic , Other (cervical cancer at age 18) : None, Frequency HEENT: Chronic vision loss, Chronic sinusitis, Chronic hearing loss Psych: Depression, Anxiety, Claustrophobia Musculoskeletal: Osteoarthritis, Fatigue, Chronic back pain Derm: None - Past Surgical History Past Surgical History: Yes General: Cholecystectomy, EGD Ortho: Knee replacement /QA ARCHITECT: Hysterectomy (partial at age 18 for cervical CA), LEEP (Cervical surgery) Cardiovascular: Cardiac catheterization HEENT: Rhinoplasty - Present Medications Home Medications: Ambulatory Orders Medication Instructions Recorded Confirmed Albuterol Sulfate [Proair Hfa 2 puffs INH Q4H PRN 09/10/17 10/24/20 Inhaler] Albuterol 2.5 mg INH Q4H PRN 12/29/17 10/24/20 Budesonide [Pulmicort] 0.5 mg INH BID 01/31/19 10/24/20 Fluticasone [Flonase] 1 sprays CLARISA BID 01/31/19 10/24/20 Arformoterol Tartrate [Brovana] 15 mcg NEB BID 09/07/20 10/24/20 Furosemide 40 mg PO BID 09/07/20 10/24/20 Metoprolol Succinate [Toprol Xl] 100 mg PO BID 09/07/20 10/24/20 Apixaban [Eliquis] 5 mg PO BID 10/24/20 10/24/20 - Allergies Allergies/Adverse Reactions: Allergies Allergy/AdvReac Type Severity Reaction Status Date / Time codeine [Codeine] Allergy Severe Swelling/Hi Verified 10/24/20 12:39 ves erythromycin base Allergy Severe Anaphylaxis Verified 10/24/20 12:39 [Erythromycin Base] gabapentin Allergy Severe Anaphylaxis Verified 10/24/20 12:39 Latex, Natural Rubber Allergy Severe Blisters Verified 10/24/20 12:39 pamabrom [From Midol] Allergy Severe Respiratory Verified 10/24/20 12:39 pyrilamine maleate * Allergy Severe Respiratory Verified 10/24/20 12:39 [From Midol] shellfish derived Allergy Severe Anaphylaxis Verified 10/24/20 12:39 venom-honey bee Allergy Severe Anaphylaxis Verified 10/24/20 12:39 [bee venom (honey bee)] chlorhexidine Allergy Intermediate Rash Verified 10/24/20 12:39 morphine Allergy Respiratory Verified 10/24/20 12:39 ondansetron Allergy Respiratory Verified 10/24/20 12:39 piperacillin [From Zosyn] AdvReac Rash Verified 10/24/20 12:39 tazobactam [From Zosyn] AdvReac Rash Verified 10/24/20 12:39 - Social History Does the pt smoke?: No Smoking Status: Former smoker Does the pt drink ETOH?: No Does the pt have substance abuse?: No - Immunizations Immunizations are current?: No Immunizations: Other immun not current - POLST Patient has POLST: No POLST Status: Full Code PD ED PE EXPANDED - General General: In distress, Other (obese) - Neck Neck: Supple w/out meningeal sx - Cardiac Cardiac: Regular Rate, Murmur Present, Radial strong equal, Pedal strong equal, Cap refill < 2 sec - Respiratory Respiratory: Distress, Labored, Accessory mm use, Wheezing, Rhonchi - Abdomen Abdomen: Normal Bowel sounds, Other (could not lay supine for abdominal exam). No: Tender to palpation - Neuro Neuro: Alert and Oriented X 3, CNII-XII intact, Normal speech - GCS Eye Opening: Spontaneous Motor: Obeys Commands Verbal: Oriented Total: 15 Results - Vitals Vitals: Vital Signs - 24 hr 10/24/20 10/24/20 10/24/20 12:36 13:00 13:15 Temperature 36.6 C Heart Rate 64 62 60 Respiratory 26 H 24 30 H Rate Blood Pressure 95/62 122/90 H 125/96 H O2 Saturation 93 87 L 92 10/24/20 10/24/20 10/24/20 13:30 14:00 14:30 Temperature Heart Rate 61 64 60 Respiratory 20 25 H 23 Rate Blood Pressure 115/80 94/56 L 133/59 H O2 Saturation 94 92 94 Oxygen O2 Source [With Activity] Room air O2 Source Nasal cannula Oxygen Flow Rate 2 - EKG (time done) 1236 Rate: Rate (enter#) (64) Rhythm: Other (atrial paced) Intervals: RBBB QRS: LVH Ischemia: Q waves (inferior) Compare to prior EKG: Unchanged from prior EKG Computer interpretation: Agree with computer - Labs Labs: Laboratory Tests 10/24/20 10/24/20 10/24/20 13:00 13:00 13:00 WBC 8.8 RBC 4.81 Hgb 15.8 Hct 47.7 H MCV 99.2 H MCH 32.8 H MCHC 33.1 RDW 12.8 Plt Count 254 MPV 9.8 Neut # (Auto) 6.0 Lymph # (Auto) 1.7 [place] # (Auto) 0.8 Eos # (Auto) 0.2 Baso # (Auto) 0.0 Absolute Nucleated RBC 0.00 Nucleated RBC % 0.0 VBG pH VBG pCO2 VBG pO2 VBG HCO3 VBG Total CO2 VBG O2 Saturation VBG Base Excess Sodium 139 Potassium 3.6 Chloride 98 L Carbon Dioxide 29 Anion Gap 12.0 BUN 18 Creatinine 1.4 H Estimated GFR (MDRD) 39 L Glucose 186 H Calcium 9.3 Total Bilirubin 0.6 AST 22 ALT 25 Alkaline Phosphatase 117 Troponin I High Sens B-Natriuretic Peptide 70 Total Protein 7.4 Albumin 3.9 Globulin 3.5 Albumin/Globulin Ratio 1.1 Lipase 36 Nasal Adenovirus (PCR) Nasal B. parapertussis DNA (PCR) Nasal Coronavir 229E PCR Nasal Coronavir HKU1 PCR Nasal Coronavir NL63 PCR Nasal Coronavir OC43 PCR Nasal Enterovir/Rhinovir PCR Nasal Influenza B PCR Nasal Influenza A PCR Nasal Parainfluen 1 PCR Nasal Parainfluen 2 PCR Nasal Parainfluen 3 PCR Nasal Parainfluen 4 PCR Nasal RSV (PCR) Nasal B.pertussis DNA PCR Nasal C.pneumoniae (PCR) Clarisa Human Metapneumo PCR Nasal M.pneumoniae (PCR) Nasal SARS-CoV-2 (PCR) 10/24/20 10/24/20 10/24/20 13:00 13:10 13:12 WBC RBC Hgb Hct MCV MCH MCHC RDW Plt Count MPV Neut # (Auto) Lymph # (Auto) [place] # (Auto) Eos # (Auto) Baso # (Auto) Absolute Nucleated RBC Nucleated RBC % VBG pH 7.369 VBG pCO2 52.1 H VBG pO2 38.2 VBG HCO3 29.4 H VBG Total CO2 31.0 H VBG O2 Saturation 75.5 VBG Base Excess 2.8 H Sodium Potassium Chloride Carbon Dioxide Anion Gap BUN Creatinine Estimated GFR (MDRD) Glucose Calcium Total Bilirubin AST ALT Alkaline Phosphatase Troponin I High Sens 8.2 B-Natriuretic Peptide Total Protein Albumin Globulin Albumin/Globulin Ratio Lipase Nasal Adenovirus (PCR) NOT DETECTED Nasal B. parapertussis DNA (PCR) NOT DETECTED Nasal Coronavir 229E PCR NOT DETECTED Nasal Coronavir HKU1 PCR NOT DETECTED Nasal Coronavir NL63 PCR NOT DETECTED Nasal Coronavir OC43 PCR NOT DETECTED Nasal Enterovir/Rhinovir PCR DETECTED A Nasal Influenza B PCR NOT DETECTED Nasal Influenza A PCR NOT DETECTED Nasal Parainfluen 1 PCR NOT DETECTED Nasal Parainfluen 2 PCR NOT DETECTED Nasal Parainfluen 3 PCR NOT DETECTED Nasal Parainfluen 4 PCR NOT DETECTED Nasal RSV (PCR) NOT DETECTED Nasal B.pertussis DNA PCR NOT DETECTED Nasal C.pneumoniae (PCR) NOT DETECTED Clarisa Human Metapneumo PCR NOT DETECTED Nasal M.pneumoniae (PCR) NOT DETECTED Nasal SARS-CoV-2 (PCR) NOT DETECTED - Rads (name of study) CXR Radiology: Final report received (Interstitial prominence is seen which is nonspecific. Differential diagnosis includes pulmonary edema. Please also consider atypical infection.) PD MEDICAL DECISION MAKING - ED course Complexity details: reviewed old records, reviewed results, re-evaluated patient, considered differential, d/w patient ED course: 55-year-old female who has a history of COPD and recent admission for hypoxic respiratory failure presents the emergency department with 3 days of cough and d yspnea and orthopnea. On presentation she was quite labored and dyspneic with room air saturations of 87%. She was placed on 4 L nasal cannula with resultant rise in her oxygenation to 92%. Initially patient was given a DuoNeb in the emergency department with minimal relief of her symptoms it was then followed by 5 mg of albuterol nebulizer. Her respiratory rate did slow but patient felt that she continued to be labored. She was still unable to lay supine. Chest x-ray did not show any obvious focal infiltrates. EKG is a paced atrial rhythm. High-sensitivity troponin and BNP are not elevated. However given productive cough hypoxia and dyspnea she will be admitted to the hospital for further evaluation and treatment of what I suspect to be a repeat COPD exacerbation. Respiratory PCR is negative for COVID-19 but she is positive for rhino/enterovirus likely a common cold causing a COPD exacerbation. Patient was given 125 mg of Solu-Medrol in the emergency department as well as ceftriaxone and Levaquin given her allergy history. I spoke with Dr. Nikhil Cespedes who agrees to bring the patient in for further evaluation and treatment of her hypoxic respiratory failure. Departure - Departure Disposition: [facility] DC/Xfer Clinical Impression: Respiratory failure Qualifiers: Chronicity: acute on chronic Respiratory failure complication: hypoxia Qualified Code(s): J96.21 - Acute and chronic respiratory failure with hypoxia COPD (chronic obstructive pulmonary disease) Qualifiers: COPD type: unspecified COPD Qualified Code(s): J44.9 - Chronic obstructive pulmonary disease, unspecified Discharge Date/Time: 10/24/20 15:29
[2020-10-24] MEDS ORDERED: AZITHROMYCIN INJ 500 MG in SODIUM CHLORIDE 0.9% 250 ML IV STA (13:07)
[2020-10-24] MEDS ORDERED: levoFLOXacin 500 MG/100 ML 500 MG/100 ML BAG IV STA (13:08)
[2020-10-24 13:10] LABS: BASOPHILS % (AUTO) 0.5 %; EOSINOPHILS # (AUTO) 0.2 10^3/uL (0.0-0.7); EOSINOPHILS % (AUTO) 1.8 %; HCT - HEMATOCRIT 47.7 % (37.0-47.0); HGB - HEMOGLOBIN 15.8 g/dL (12.0-16.0); LYMPHOCYTES # (AUTO) 1.7 10^3/uL (1.5-3.5); LYMPHOCYTES % (AUTO) 19.9 %; MEAN CORPUSCULAR HEMOGLOBIN 32.8 pg (27.0-31.0); MEAN CORPUSCULAR HGB CONC 33.1 g/dL (32.0-36.0); MEAN CORPUSCULAR VOLUME 99.2 fL (81.0-99.0); MEAN PLATELET VOLUME 9.8 fL (7.9-10.8); MONOCYTES # (AUTO) 0.8 10^3/uL (0.0-1.0); MONOCYTES % (AUTO) 9.2 %; NEUTROPHILS % (AUTO) 68.3 %; PLT - PLATELET COUNT 254 10^3/uL (130-450); RED BLOOD COUNT 4.81 10^6/uL (4.20-5.40); RED CELL DISTRIBUTION WIDTH 12.8 % (12.0-15.0); WHITE BLOOD COUNT 8.8 x10^3/uL (4.8-10.8)
[2020-10-24] MEDS ORDERED: ALBUTEROL NEB 2.5 MG/3 ML INH STA (13:10)
[2020-10-24 13:18] LABS: VBG BASE EXCESS 2.8 mmol/L (-2 - +2); VBG HCO3 29.4 mmol/L (23-28); VBG OXYGEN SATURATION 75.5 % (60-80); VBG PCO2 52.1 mmHg (41-51); VBG PH 7.369 (7.31-7.41); VBG PO2 38.2 mmHg (25-47)
[2020-10-24 13:21] LABS: ALBUMIN 3.9 g/dL (3.2-5.5); ALBUMIN/GLOBULIN RATIO 1.1 (1.0-2.2); BILIRUBIN,TOTAL 0.6 mg/dL (0.2-1.0); CALCIUM 9.3 mg/dL (8.5-10.3); CREATININE 1.4 mg/dL (0.4-1.0); POTASSIUM 3.6 mmol/L (3.5-5.0); TOTAL PROTEIN 7.4 g/dL (6.7-8.2)
--- NOTE | 2020-10-24 13:25 | XRAY Report ---
PROCEDURE: Chest 1 View X-Ray INDICATIONS: Chest Pain TECHNIQUE: One view of the chest was acquired. COMPARISON: 09/16/2020, 09/24/2019 FINDINGS: Surgical changes and devices: An AICD can be seen. Lungs and pleura: No pleural effusions or pneumothorax. Low lung volumes can be seen, causing a microbiology teacher wded appearance to the lung markings. Mild generalized interstitial prominence can be seen. At least one calcified granuloma can be seen. Mediastinum: Mediastinal contours appear normal. Heart size is normal. Calcification is seen of th e aortic arch. Bones and chest wall: No suspicious bony lesions. Age-appropriate degenerative changes are seen. Overlying soft tissues appear unremarkable. IMPRESSION: Interstitial prominence is seen, which is nonspecific. Differential diagnosis includes pulmonary valdo a and artifact. Please also consider atypical infection. Please consider a short-term follow-up 2 view chest series (performed in deep inspiration) for furthe r evaluation. Postoperative and degenerative changes are seen. Reviewed by: Jaime Fowler MD on 10/24/2020 12:24 PM JORGE L Approved by: Jaime Fowler MD on 10/24/2020 12:24 PM JORGE L Station ID: [id number]
[2020-10-24] MEDS ORDERED: ALBUTEROL NEB 2.5 MG/3 ML INH ONE (13:29)
[2020-10-24 14:05] LABS: B. PARAPERTUSSIS- RESP PCR PAN NOT DETECTED; B. PERTUSSIS- RESP PCR PANEL NOT DETECTED; C. PNEUMONIAE- RESP PCR PANEL NOT DETECTED; CORONAVIRUS 229E-RESP PCR NOT DETECTED; CORONAVIRUS HKU1-RESP PCR NOT DETECTED; CORONAVIRUS NL63-RESP PCR NOT DETECTED; CORONAVIRUS OC43-RESP PCR NOT DETECTED; HUMAN METAPNEUMOVIRUS NOT DETECTED; INFLUENZA A- RESP PCR PANEL NOT DETECTED; INFLUENZA B - RESP PCR PANEL NOT DETECTED; M. PNEUMONIAE- RESP PCR PANEL NOT DETECTED; PARAINFLUENZA VIRUS 1 NOT DETECTED; PARAINFLUENZA VIRUS 2 NOT DETECTED; PARAINFLUENZA VIRUS 3 NOT DETECTED; PARAINFLUENZA VIRUS 4 NOT DETECTED; RHINOVIRUS/ENTEROVIRUS DETECTED; RSV- RESP PCR PANEL NOT DETECTED; SARS-CoV-2 -RESP PCR PANEL NOT DETECTED
[2020-10-24] MEDS ORDERED: ALBUTEROL NEB 2.5 MG/3 ML INH PRN (14:42)
[2020-10-24] MEDS ORDERED: PROCHLORPERAZINE 10 MG/2 ML VIAL IVP PRN (14:45)
--- NOTE | 2020-10-24 14:46 | HISTORY & PHYSICAL EXAMINATION ---
Chief Complaint - Chief Complaint Chief Complaint: Shortness of breath. History of Present Illness - Admitted From Admitted From:: Home - History Obtained From Records Reviewed: Yes History obtained from: Patient, ER Provider, EMR - History of Present Illness HPI Comment/Other: This is a 55-year-old female with a past medical history significant for COPD, heart failure with reduced ejection fraction, obstructive sleep apnea, atrial fibrillation, history of cardiac arrest with ICD in place who presents today complaining of shortness of breath. She states she has felt short of breath for the past 3 days and this has progressed. She reports her granddaughter was sick with an upper respiratory infection and she believes that she became ill from her. She reports no cough but she has had significant wheezing. She has tried her home inhalers with only minimal relief. She reports no fevers or chills. Denies chest pain but does have some discomfort with her cough and deep breaths. She reports receiving the [employer] Covid vaccine about 4 days ago. She believes her lower extremities may be a little bit swollen and this has been present over the past 2 weeks. She denies any dysuria, urgency, hematuria but does complain of bilateral flank pain. She denies abdominal pain but does report nausea without vomiting. She states that she has been ill she has had minimal p.o. intake. She believes she may have had a little bit of diarrhea over the past couple of days as well. In the emergency department, she was found to be afebrile. Her heart rate was in the 60s and she was normotensive. She was tachypneic with a respiratory rate in the 20s and required 4 L of oxygen via nasal cannula to maintain oxygen saturation in the 90s. Her labs were significant for a creatinine of 1.4. Her respiratory PCR panel was positive for enterovirus/rhinovirus. Her chest x-ray was concerning for possible edema or artifact versus atypical infection. She was given Levaquin, steroids, duo nebs in the emergency department. Given the above findings, medicine was consulted for admission. We did discuss goals of care and she would like to be a full code. History - Past Medical History Cardiovascular: reports: Congestive heart failure, Hypertension, High cholestero l, Coronary artery disease, PR, Atrial fibrillation, Arrhythmia, Other (History of cardiac arrest.) Respiratory: reports: Asthma, COPD, Emphysema, Pneumonia, Shortness of breath Neuro: reports: Headaches, Tremors Endocrine/Autoimmune: reports: None GI: reports: GERD CONTACT CENTER MANAGER: reports: Ectopic , Other (History of Cervical cancer at age 18) : reports: None, Frequency HEENT: reports: Chronic vision loss, Chronic sinusitis, Chronic hearing loss Psych: reports: Depression, Anxiety, Claustrophobia Musculoskeletal: reports: Osteoarthritis, Fatigue, Chronic back pain Derm: reports: None MRSA Hx?: No - Past Surgical History General: reports: Cholecystectomy, EGD Ortho: reports: Knee replacement /CONTACT CENTER MANAGER: reports: Hysterectomy, LEEP (Cervical surgery) Cardiovascular: reports: AICD, Cardiac catheterization HEENT: reports: Rhinoplasty - Family & Social History Family History: Mother: Alive and Well, Alzheimer's Disease, Hyperlipidemia, Hypertension, Father: , Cancer, Other family: CVA/TIA, Diabetes, Type 1, PR Family History Comment/Other: To her knowledge, her father from an unknown cancer. She denies a family history of heart disease or diabetes but review of prior records reveal that both her parents had coronary artery disease and diabetes. Living arrangement: At home Living Situation: With family Social History Notes: She lives at home with her ex-, federico. She has other by members living there as well. She currently does not work. She denies alcohol use and reports that she quit smoking about a year ago. She started at the age of 7 and smoked up to 1.5 packs a day. - Substance History Use: Uses substance without health or social issues: NONE - POLST Patient has POLST: No POLST Status: Full Code Meds/Allgy - Home Medications Home Medications: Ambulatory Orders Medication Instructions Recorded Confirmed Albuterol Sulfate [Proair Hfa 2 puffs INH Q4H PRN 09/10/17 10/24/20 Inhaler] Albuterol 2.5 mg INH Q4H PRN 12/29/17 10/24/20 Budesonide [Pulmicort] 0.5 mg INH BID 01/31/19 10/24/20 Fluticasone [Flonase] 1 sprays CLARISA BID 01/31/19 10/24/20 Arformoterol Tartrate [Brovana] 15 mcg NEB BID 09/07/20 10/24/20 Furosemide 40 mg PO BID 09/07/20 10/24/20 Metoprolol Succinate [Toprol Xl] 100 mg PO BID 09/07/20 10/24/20 Apixaban [Eliquis] 5 mg PO BID 10/24/20 10/24/20 - Allergies Allergies/Adverse Reactions: Allergies Allergy/AdvReac Type Severity Reaction Status Date / Time codeine [Codeine] Allergy Severe Swelling/Hi Verified 10/24/20 12:39 ves erythromycin base Allergy Severe Anaphylaxis Verified 10/24/20 12:39 [Erythromycin Base] gabapentin Allergy Severe Anaphylaxis Verified 10/24/20 12:39 Latex, Natural Rubber Allergy Severe Blisters Verified 10/24/20 12:39 pamabrom [From Midol] Allergy Severe Respiratory Verified 10/24/20 12:39 pyrilamine maleate * Allergy Severe Respiratory Verified 10/24/20 12:39 [From Midol] shellfish derived Allergy Severe Anaphylaxis Verified 10/24/20 12:39 venom-honey bee Allergy Severe Anaphylaxis Verified 10/24/20 12:39 [bee venom (honey bee)] chlorhexidine Allergy Intermediate Rash Verified 10/24/20 12:39 morphine Allergy Respiratory Verified 10/24/20 12:39 ondansetron Allergy Respiratory Verified 10/24/20 12:39 piperacillin [From Zosyn] AdvReac Rash Verified 10/24/20 12:39 tazobactam [From Zosyn] AdvReac Rash Verified 10/24/20 12:39 Review of Systems - Constitutional Constitutional: reports: Poor appetite. denies: Fever, Chills - Ears, Nose & Throat Ears, Nose & Throat: reports: Nasal congestion. denies: Nasal discharge - Cardiovascular Cariovascular: reports: Edema, Lightheadedness, Exertional dyspnea, Decr. exercise tolerance. denies: Chest pain - Respiratory Respiratory: reports: Wheezing, SOB at rest, SOB with exertion. denies: Cough, Sputum production - Gastrointestinal Gastrointestinal: reports: Diarrhea, Nausea. denies: Abdominal pain, Vomiting - Genitourinary Genitourinary: reports: Flank pain. denies: Dysuria, Frequency, Urgency, Hematuria - Integumentary Integumentary: denies: Rash - Neurological Neurological: reports: General weakness, Dizziness. denies: Focal weakness - Hematologic/Lymphatic Hematologic/Lymphatic: reports: Bruising. denies: Anemia - All Other Systems All Other Systems: reports: Reviewed and negative Prior Level of Functionality: She is independent with her ADLs. Exam - Vital Signs Reviewed Vital Signs: Yes Vital Signs: Vital Signs x48h Temp Pulse Resp BP Pulse Ox 10/24/20 14:30 60 23 133/59 H 94 10/24/20 14:00 64 25 H 94/56 L 92 10/24/20 13:30 61 20 115/80 94 10/24/20 13:15 60 30 H 125/96 H 92 10/24/20 13:00 62 24 122/90 H 87 L 10/24/20 12:36 36.6 C 64 26 H 95/62 93 - Physical Exam General Appearance: positive: Alert, Mild distress Eyes Bilateral: positive: Normal inspection, Conjunctivae nml ENT: positive: ENT inspection nml, Other (Nasal cannula in place.) Neck: positive: Nml inspection Respiratory: positive: No respiratory distress, Wheezes, Rhonchi, Other (She is nondistressed but is tachypneic. She has rhonchi throughout all lung mahtews and expiratory wheezes.) Cardiovascular: positive: Regular rate & rhythm, No murmur. negative: Tachycardia Abdomen: positive: Non-tender, No distention. negative: Tenderness Back: positive: CVA tenderness (R), CVA tenderness (L) Skin: positive: Warm, Dry Extremities: positive: Full ROM, No pedal edema. negative: Pedal edema Neurologic/Psychiatric: negative: Disoriented to person, Disoriented to place Conclusion/Plan - Problem List (1) Acute respiratory failure with hypoxia Conclusion/Plan: This is secondary to a COPD exacerbation and likely viral pneumonia. She is requiring 4 L of oxygen to maintain her saturations. X-ray is concerning for possible atypical infection. Her respiratory PCR panel is positive for enterovirus/rhinovirus. We will admit her under inpatient status and start her on Levaquin IV daily for the COPD exacerbation. We will place her on Solu- Medrol 60 mg IV 3 times daily. Duo nebs [id number] with albuterol as needed. Continue supplemental oxygen for goal saturation greater than 88%. (2) COPD with acute exacerbation Conclusion/Plan: She has been admitted in the past for exacerbation of her COPD. The plan will be as mentioned above. She will need an exercise desaturation test prior to discharge. (3) Rhinovirus infection Conclusion/Plan: Her respiratory PCR panel is positive for enterovirus/rhinovirus. This likely contributed to her COPD exacerbation. Continue supportive measures and management as mentioned above. (4) Acute kidney injury Conclusion/Plan: Her creatinine is elevated at 1.4 compared to her baseline of 1.0. Suspect this is likely prerenal injury. We will hold her home diuretics for time being and gently hydrate her overnight. Recheck renal function in the morning. (5) Chronic HFrEF (heart failure with reduced ejection fraction) Conclusion/Plan: This appears stable and not in exacerbation. Her most recent echocardiogram revealed a preserved ejection fraction. We will continue her home metoprolol. We will hold her Lasix for the time being as we gently hydrate her given the mild acute kidney injury. (6) Flank pain Conclusion/Plan: She reports bilateral flank pain for the past week. Denies a prior history of nephrolithiasis. Although she has no dysuria or urgency, will check a urinalysis to evaluate for pyelonephritisl (7) Chronic atrial fibrillation Conclusion/Plan: She is currently paced. We will continue her home metoprolol and Eliquis. (8) Type 2 diabetes mellitus Conclusion/Plan: She has a history of type 2 diabetes mellitus and her last A1c was 7.2%. This is a diet controlled. Given she will be on steroids, will start her on Lantus 10 units in the evening and sliding scale. Carb controlled diet. - Lab Results Lab results reviewed: Yes Fish Bones: 10/24/20 13:00 10/24/20 13:00 - Diagnostic Imaging Results Diagnostic Imaging Results: positive: Final report reviewed - EKG Results EKG Interpreted Independently: Yes EKG Comparison: Unchanged from prior EKG EKG Findings: EKG reveals an atrial paced rhythm with a right bundle branch block. Core Measures - Anticipated LOS I expect patient to be DC'd or transferred within 96 hours.: Yes - Issues Hospital Issues and Management Plan: This is a 55-year-old female with a past medical history significant for COPD presents with dyspnea found to have a COPD exacerbation and a viral infection. We will admit her for antibiotics, steroids, duo nebs. - DVT/VTE - Prophylaxis VTE/DVT Device ordered at admit?: No VTE/DVT Prophylaxis med ordered at admit?: No
--- OUTSIDE RECORDS SUMMARY | 2020-10-24 15:47 | EXTERNAL MEDICAL SUMMARY RPT | Continuity of Care Document ---
:1965 Demographics Phone Unavailable Preferred Language Unknown Marital Status Unknown Islam Affiliation Unknown Race Unknown Ethnic Group Unknown Author Organization [facility] Address [address] [phone] Phone Allergies Encounters Medications Problems Results
[2020-10-24] MEDS: IPRATROPIUM/ALBUTEROL 3 ML NEB INH SCH ×2 (16:12→20:37)
[2020-10-24] MEDS: LACTATED RINGERS 1,000 ML IV SCH (16:56)
[2020-10-24] MEDS: SODIUM CHLORIDE FLUSH 0.9% 10 ML SYRINGE IVP SCH (16:57)
[2020-10-24] MEDS: INSULIN ASPART 300 UNIT/3 ML PEN SUBQ SCH ×2 (17:33→21:15)
[2020-10-24 19:21] LABS: BILIRUBIN,URINE NEGATIVE (NEGATIVE); GLUCOSE, URINE (UA) NEGATIVE (NEGATIVE); KETONES,URINE (UA) NEGATIVE (NEGATIVE); LEUKOCYTE ESTERASE, URINE NEGATIVE (NEGATIVE); NITRITE,URINE NEGATIVE (NEGATIVE); OCCULT BLOOD,URINE NEGATIVE (NEGATIVE); PROTEIN,URINE NEGATIVE (NEGATIVE); UROBILINOGEN,URINE 0.2 (NORMAL) E.U./dL (NORMAL)
[2020-10-24 19:27] LABS: AMORPHOUS SEDIMENT,UR Rare /LPF; BACTERIA,URINE Rare /HPF (None Seen); CLARITY,URINE CLEAR (CLEAR); MUCUS,URINE Few Strands; RBC,URINE 0-5 /HPF (0-5); SQUAMOUS EPITHELIAL CELL,UR RARE Squamous (<= Few); WBC,URINE 0-3 /HPF (0-5)
[2020-10-24] MEDS ORDERED: INSULIN GLARGINE 300 UNIT/3 ML PEN SUBQ SCH (21:00)
[2020-10-24] MEDS: FLUTICASONE NASAL SPRAY NAS SCH (21:16)
[2020-10-24] MEDS: APIXABAN 5 MG TABLET PO SCH (21:16)
[2020-10-24] MEDS: guaiFENesin 600 MG TABLET PO SCH (21:17)
[2020-10-24] MEDS: METOPROLOL SUCCINATE 50 MG TABLET PO SCH (21:17)
[2020-10-24] MEDS: methylPREDNISolone SUCCINATE 40 MG/ML VIAL IVP SCH (22:15)
[2020-10-25] MEDS: LACTATED RINGERS 1,000 ML IV SCH (03:10)
[2020-10-25] MEDS: SODIUM CHLORIDE FLUSH 0.9% 10 ML SYRINGE IVP SCH ×3 (03:13→17:20)
[2020-10-25] MEDS: IPRATROPIUM/ALBUTEROL 3 ML NEB INH SCH ×7 (04:28→22:43)
[2020-10-25 05:22] LABS: BASOPHILS % (AUTO) 0.2 %; HCT - HEMATOCRIT 46.4 % (37.0-47.0); HGB - HEMOGLOBIN 14.8 g/dL (12.0-16.0); LYMPHOCYTES % (AUTO) 10.9 %; MEAN CORPUSCULAR HGB CONC 31.9 g/dL (32.0-36.0); MEAN CORPUSCULAR VOLUME 100.4 fL (81.0-99.0); PLT - PLATELET COUNT 249 10^3/uL (130-450); RED BLOOD COUNT 4.62 10^6/uL (4.20-5.40); RED CELL DISTRIBUTION WIDTH 12.7 % (12.0-15.0); WHITE BLOOD COUNT 11.1 x10^3/uL (4.8-10.8)
[2020-10-25 05:27] LABS: ABNORMAL LYMPHS % (MANUAL) 0 %; BAND NEUTROPHILS % (MANUAL) 0 %
[2020-10-25 05:32] LABS: CALCIUM 9.8 mg/dL (8.5-10.3); MAGNESIUM 2.2 mg/dL (1.7-2.8); POTASSIUM 4.2 mmol/L (3.5-5.0)
[2020-10-25 05:49] LABS: LYMPHOCYTES % (MANUAL) 9 %; MONOCYTES # (MANUAL) 0.1 10^3/uL (0.0-1.0); PLATELET MORPHOLOGY NORMAL APPEARANCE (NORMAL); RBC MORPHOLOGY (MULTIPLE) NORMAL APPEARANCE (NORMAL)
[2020-10-25 05:50] LABS: DIFFERENTIAL COMMENT MANUAL DIFFERENTIAL; PLATELET ESTIMATE, MANUAL NORMAL (130-450,000) (NORMAL); WBC MORPHOLOGY (MULTIPLE) NORMAL APPEARANCE (NORMAL)
[2020-10-25] MEDS: methylPREDNISolone SUCCINATE 40 MG/ML VIAL IVP SCH ×3 (05:55→21:52)
--- NOTE | 2020-10-25 07:26 | PROVIDER PROGRESS NOTE ---
Subjective - Prog Note Date Prog Note Date: 10/25/20 - Subjective Subjective: She feels improved compared to yesterday but still has a cough and still feels quite dyspneic with minimal exertion. She also has difficulty sleeping as she cannot lay flat in bed due to the concerns that she may stop breathing or her breathing would get worse. Current Medications - Current Medications Current Medications: Active Medications Acetaminophen (Acetaminophen 325 Mg Tablet) 650 mg PO Q4HR PRN PRN Reason: Pain 1 to 4 Albuterol (Albuterol Neb 2.5 Mg/3 Ml) 2.5 mg INH RTQ4H PRN PRN Reason: Wheezing Albuterol/Ipratropium (Ipratropium/Albuterol 3 Ml Neb) 3 ml INH Q4HR [facility] Last Admin: 10/25/20 06:59 Dose: 3 ml Documented by: Apixaban (Apixaban 5 Mg Tablet) 5 mg PO BID [facility] Last Admin: 10/24/20 21:16 Dose: 5 mg Documented by: Benzonatate (Benzonatate 100 Mg Capsule) 100 mg PO TID PRN PRN Reason: Cough Fluticasone Propionate (Fluticasone Nasal [place]) 1 sprays CLARISA BID [facility] Last Admin: 10/24/20 21:16 Dose: 1 spr Documented by: Guaifenesin (Guaifenesin 600 Mg Tablet) 600 mg PO BID [facility] Last Admin: 10/24/20 21:17 Dose: 600 mg Documented by: Levofloxacin (Levaquin 750 Mg/150 Ml) 750 mg in 150 mls @ 100 mls/hr IV Q24H [facility] Stop: 10/28/20 10:29 Insulin Aspart (Insulin Aspart 300 Unit/3 Ml Pen) 1 - 9 unit SUBQ 0800,1200,1700,2100 [facility]; Protocol Last Admin: 10/24/20 21:15 Dose: 5 unit Documented by: Insulin Glargine (Insulin Glargine 300 Unit/3 Ml Pen) 10 unit SUBQ QPM [facility] Last Admin: 10/24/20 21:18 Dose: 10 unit Documented by: Methylprednisolone (Methylprednisolone Succinate 40 Mg/Ml Vial) 60 mg IVP TID [facility] Last Admin: 10/25/20 05:55 Dose: 60 mg Documented by: Metoprolol Succinate (Metoprolol Succinate 50 Mg Tablet) 100 mg PO BID [facility] Last Admin: 10/24/20 21:17 Dose: 100 mg Documented by: Prochlorperazine Edisylate (Prochlorperazine 10 Mg/2 Ml Vial) 10 mg IVP Q6HR PRN PRN Reason: Nausea / Vomiting Sodium Chloride (Sodium Chloride Flush 0.9% 10 Ml Syringe) 10 ml IVP PRN PRN PRN Reason: NEEDED PER PROVIDER ORDERS Sodium Chloride (Sodium Chloride Flush 0.9% 10 Ml Syringe) 10 ml IVP 0100,0900,1700 [facility] Last Admin: 10/25/20 03:13 Dose: Not Given Documented by: Albuterol Sulfate [Proair Hfa Inhaler] 2 puffs INH Q4H PRN 09/10/17 Albuterol 2.5 mg INH Q4H PRN 12/29/17 Budesonide [Pulmicort] 0.5 mg INH BID 01/31/19 Fluticasone [Flonase] 1 sprays CLARISA BID 01/31/19 Arformoterol Tartrate [Brovana] 15 mcg NEB BID 09/07/20 Furosemide 40 mg PO BID 09/07/20 Metoprolol Succinate [Toprol Xl] 100 mg PO BID 09/07/20 Apixaban [Eliquis] 5 mg PO BID 10/24/20 Objective - Vital Signs/Intake & Output Reviewed Vital Signs: Yes Vital Signs: Vital Signs x48h Temp Pulse Pulse Resp BP Pulse Ox 10/25/20 07:01 66 26 H 10/25/20 05:41 68 18 10/25/20 04:50 36.2 C L 62 27 H 118/52 L 93 10/25/20 00:15 36.4 C L 65 24 125/58 L 97 Intake & Output: Intake & Output 10/22/20 10/23/20 10/24/20 10/25/20 23:59 23:59 23:59 23:59 Intake Total 1280 1450 Output Total 800 Balance 480 1450 - Objective General Appearance: positive: Alert Eyes Bilateral: positive: Normal inspection, Conjunctivae nml ENT: positive: ENT inspection nml, Other (Nasal Cannula in place.) Neck: positive: Nml inspection Respiratory: positive: No respiratory distress, Other (She is not in distress but she is slightly tachypneic at rest. Still has expiratory wheezes throughout all lung mathews. Rhonchi sound improved today.) Cardiovascular: positive: Regular rate & rhythm. negative: Tachycardia, Systolic murmur Skin: positive: Warm, Dry Extremities: positive: No pedal edema Neurologic/Psychiatric: negative: Disoriented to person, Disoriented to place - Lab Results Fish Bones: 10/25/20 04:50 10/25/20 04:50 Other Labs: Lab Results x24hrs 10/25/20 10/25/20 10/24/20 Range/Units 04:50 04:50 20:30 WBC 11.1 H (4.8-10.8) x10^3/uL RBC 4.62 (4.20-5.40) 10^6/uL Hgb 14.8 (12.0-16.0) g/dL Hct 46.4 (37.0-47.0) % MCV 100.4 H (81.0-99.0) fL MCH 32.0 H (27.0-31.0) pg MCHC 31.9 L (32.0-36.0) g/dL RDW 12.7 (12.0-15.0) % Plt Count 249 (130-450) 10^3/uL MPV 10.0 (7.9-10.8) fL Neut # (Auto) Not Reportable (1.5-6.6) 10^3/uL Lymph # (Auto) Not Reportable (1.5-3.5) 10^3/uL [place] # (Auto) Not Reportable (0.0-1.0) 10^3/uL Eos # (Auto) Not Reportable (0.0-0.7) 10^3/uL Baso # (Auto) Not Reportable (0.0-0.1) 10^3/uL Absolute Nucleated RBC Not Reportable x10^3/uL Total Counted 100 Band Neuts % (Manual) 0 (0 - 10) % Abnorm Lymph % (Manual) 0 % Nucleated RBC % Not Reportable /100WBC Neutrophils # (Manual) 10.0 H (1.5-6.6) 10^3/uL Lymphocytes # (Manual) 1.0 L (1.5-3.5) 10^3/uL Monocytes # (Manual) 0.1 (0.0-1.0) 10^3/uL Eosinophils # (Manual) 0.0 (0-0.7) 10^3/uL Basophils # (Manual) 0.0 (0-0.1) 10^3/uL Differential Comment MANUAL DIFFERENTIAL WBC Morphology NORMAL APPEARANCE (NORMAL) Platelet Estimate NORMAL (130-450,000) (NORMAL) Platelet Morphology NORMAL APPEARANCE (NORMAL) RBC Morph Micro Appear NORMAL APPEARANCE (NORMAL) VBG pH (7.31-7.41) VBG pCO2 (41-51) mmHg VBG pO2 (25-47) mmHg VBG HCO3 (23-28) mmol/L VBG Total CO2 (24-29) mmol/L VBG O2 Saturation (60-80) % VBG Base Excess (-2 - +2) mmol/L Sodium 138 (135-145) mmol/L Potassium 4.2 (3.5-5.0) mmol/L Chloride 102 (101-111) mmol/L Carbon Dioxide 25 (21-32) mmol/L Anion Gap 11.0 (6-13) BUN 19 (6-20) mg/dL Creatinine 1.0 (0.4-1.0) mg/dL Estimated GFR (MDRD) 57 L (>89) Glucose 192 H (70-100) mg/dL POC Whole Bld Glucose 268 H (70 - 100) mg/dL Calcium 9.8 (8.5-10.3) mg/dL Magnesium 2.2 (1.7-2.8) mg/dL Total Bilirubin (0.2-1.0) mg/dL AST (10-42) IU/L ALT (10-60) IU/L Alkaline Phosphatase (42-121) IU/L Troponin I High Sens (2.3-14.8) ng/L B-Natriuretic Peptide (5-100) pg/mL Total Protein (6.7-8.2) g/dL Albumin (3.2-5.5) g/dL Globulin (2.1-4.2) g/dL Albumin/Globulin Ratio (1.0-2.2) Lipase (22-51) U/L Urine Color Urine Clarity (CLEAR) Urine pH (5.0-7.5) PH Ur Specific [place] (1.002-1.030) Urine Protein (NEGATIVE) mg/dL Urine Glucose (UA) (NEGATIVE) mg/dL Urine Ketones (NEGATIVE) mg/dL Urine Occult Blood (NEGATIVE) Urine Nitrite (NEGATIVE) Urine Bilirubin (NEGATIVE) Urine Urobilinogen (NORMAL) E.U./dL Ur Leukocyte Esterase (NEGATIVE) Urine RBC (0-5) /HPF Urine WBC (0-5) /HPF Ur Squamous Epith Cells (<= Few) Amorphous Sediment /LPF Urine Bacteria (None Seen) /HPF Urine Mucus Urine Culture Comments Nasal Adenovirus (PCR) Nasal B. parapertussis DNA (PCR) Nasal Coronavir 229E PCR Nasal Coronavir HKU1 PCR Nasal Coronavir NL63 PCR Nasal Coronavir OC43 PCR Nasal Enterovir/Rhinovir PCR Nasal Influenza B PCR Nasal Influenza A PCR Nasal Parainfluen 1 PCR Nasal Parainfluen 2 PCR Nasal Parainfluen 3 PCR Nasal Parainfluen 4 PCR Nasal RSV (PCR) Nasal B.pertussis DNA PCR Nasal C.pneumoniae (PCR) Clarisa Human Metapneumo PCR Nasal M.pneumoniae (PCR) Nasal SARS-CoV-2 (PCR) 10/24/20 10/24/20 10/24/20 Range/Units 19:00 16:42 13:12 WBC (4.8-10.8) x10^3/uL RBC (4.20-5.40) 10^6/uL Hgb (12.0-16.0) g/dL Hct (37.0-47.0) % MCV (81.0-99.0) fL MCH (27.0-31.0) pg MCHC (32.0-36.0) g/dL RDW (12.0-15.0) % Plt Count (130-450) 10^3/uL MPV (7.9-10.8) fL Neut # (Auto) (1.5-6.6) 10^3/uL Lymph # (Auto) (1.5-3.5) 10^3/uL [place] # (Auto) (0.0-1.0) 10^3/uL Eos # (Auto) (0.0-0.7) 10^3/uL Baso # (Auto) (0.0-0.1) 10^3/uL Absolute Nucleated RBC x10^3/uL Total Counted Band Neuts % (Manual) (0 - 10) % Abnorm Lymph % (Manual) % Nucleated RBC % /100WBC Neutrophils # (Manual) (1.5-6.6) 10^3/uL Lymphocytes # (Manual) (1.5-3.5) 10^3/uL Monocytes # (Manual) (0.0-1.0) 10^3/uL Eosinophils # (Manual) (0-0.7) 10^3/uL Basophils # (Manual) (0-0.1) 10^3/uL Differential Comment WBC Morphology (NORMAL) Platelet Estimate (NORMAL) Platelet Morphology (NORMAL) RBC Morph Micro Appear (NORMAL) VBG pH (7.31-7.41) VBG pCO2 (41-51) mmHg VBG pO2 (25-47) mmHg VBG HCO3 (23-28) mmol/L VBG Total CO2 (24-29) mmol/L VBG O2 Saturation (60-80) % VBG Base Excess (-2 - +2) mmol/L Sodium (135-145) mmol/L Potassium (3.5-5.0) mmol/L Chloride (101-111) mmol/L Carbon Dioxide (21-32) mmol/L Anion Gap (6-13) BUN (6-20) mg/dL Creatinine (0.4-1.0) mg/dL Estimated GFR (MDRD) (>89) Glucose (70-100) mg/dL POC Whole Bld Glucose 153 H (70 - 100) mg/dL Calcium (8.5-10.3) mg/dL Magnesium (1.7-2.8) mg/dL Total Bilirubin (0.2-1.0) mg/dL AST (10-42) IU/L ALT (10-60) IU/L Alkaline Phosphatase (42-121) IU/L Troponin I High Sens (2.3-14.8) ng/L B-Natriuretic Peptide (5-100) pg/mL Total Protein (6.7-8.2) g/dL Albumin (3.2-5.5) g/dL Globulin (2.1-4.2) g/dL Albumin/Globulin Ratio (1.0-2.2) Lipase (22-51) U/L Urine Color YELLOW Urine Clarity CLEAR (CLEAR) Urine pH 6.0 (5.0-7.5) PH Ur Specific [place] 1.020 (1.002-1.030) Urine Protein NEGATIVE (NEGATIVE) mg/dL Urine Glucose (UA) NEGATIVE (NEGATIVE) mg/dL Urine Ketones NEGATIVE (NEGATIVE) mg/dL Urine Occult Blood NEGATIVE (NEGATIVE) Urine Nitrite NEGATIVE (NEGATIVE) Urine Bilirubin NEGATIVE (NEGATIVE) Urine Urobilinogen 0.2 (NORMAL) (NORMAL) E.U./dL Ur Leukocyte Esterase NEGATIVE (NEGATIVE) Urine RBC 0-5 (0-5) /HPF Urine WBC 0-3 (0-5) /HPF Ur Squamous Epith Cells RARE Squamous (<= Few) Amorphous Sediment Rare /LPF Urine Bacteria Rare (None Seen) /HPF Urine Mucus Few Strands Urine Culture Comments NOT INDICATED Nasal Adenovirus (PCR) NOT DETECTED Nasal B. parapertussis DNA (PCR) NOT DETECTED Nasal Coronavir 229E PCR NOT DETECTED Nasal Coronavir HKU1 PCR NOT DETECTED Nasal Coronavir NL63 PCR NOT DETECTED Nasal Coronavir OC43 PCR NOT DETECTED Nasal Enterovir/Rhinovir PCR DETECTED A Nasal Influenza B PCR NOT DETECTED Nasal Influenza A PCR NOT DETECTED Nasal Parainfluen 1 PCR NOT DETECTED Nasal Parainfluen 2 PCR NOT DETECTED Nasal Parainfluen 3 PCR NOT DETECTED Nasal Parainfluen 4 PCR NOT DETECTED Nasal RSV (PCR) NOT DETECTED Nasal B.pertussis DNA PCR NOT DETECTED Nasal C.pneumoniae (PCR) NOT DETECTED Clarias Human Metapneumo PCR NOT DETECTED Nasal M.pneumoniae (PCR) NOT DETECTED Nasal SARS-CoV-2 (PCR) NOT DETECTED 10/24/20 10/24/20 10/24/20 Range/Units 13:10 13:00 13:00 WBC (4.8-10.8) x10^3/uL RBC (4.20-5.40) 10^6/uL Hgb (12.0-16.0) g/dL Hct (37.0-47.0) % MCV (81.0-99.0) fL MCH (27.0-31.0) pg MCHC (32.0-36.0) g/dL RDW (12.0-15.0) % Plt Count (130-450) 10^3/uL MPV (7.9-10.8) fL Neut # (Auto) (1.5-6.6) 10^3/uL Lymph # (Auto) (1.5-3.5) 10^3/uL [place] # (Auto) (0.0-1.0) 10^3/uL Eos # (Auto) (0.0-0.7) 10^3/uL Baso # (Auto) (0.0-0.1) 10^3/uL Absolute Nucleated RBC x10^3/uL Total Counted Band Neuts % (Manual) (0 - 10) % Abnorm Lymph % (Manual) % Nucleated RBC % /100WBC Neutrophils # (Manual) (1.5-6.6) 10^3/uL Lymphocytes # (Manual) (1.5-3.5) 10^3/uL Monocytes # (Manual) (0.0-1.0) 10^3/uL Eosinophils # (Manual) (0-0.7) 10^3/uL Basophils # (Manual) (0-0.1) 10^3/uL Differential Comment WBC Morphology (NORMAL) Platelet Estimate (NORMAL) Platelet Morphology (NORMAL) RBC Morph Micro Appear (NORMAL) VBG pH 7.369 (7.31-7.41) VBG pCO2 52.1 H (41-51) mmHg VBG pO2 38.2 (25-47) mmHg VBG HCO3 29.4 H (23-28) mmol/L VBG Total CO2 31.0 H (24-29) mmol/L VBG O2 Saturation 75.5 (60-80) % VBG Base Excess 2.8 H (-2 - +2) mmol/L Sodium 139 (135-145) mmol/L Potassium 3.6 (3.5-5.0) mmol/L Chloride 98 L (101-111) mmol/L Carbon Dioxide 29 (21-32) mmol/L Anion Gap 12.0 (6-13) BUN 18 (6-20) mg/dL Creatinine 1.4 H (0.4-1.0) mg/dL Estimated GFR (MDRD) 39 L (>89) Glucose 186 H (70-100) mg/dL POC Whole Bld Glucose (70 - 100) mg/dL Calcium 9.3 (8.5-10.3) mg/dL Magnesium (1.7-2.8) mg/dL Total Bilirubin 0.6 (0.2-1.0) mg/dL AST 22 (10-42) IU/L ALT 25 (10-60) IU/L Alkaline Phosphatase 117 (42-121) IU/L Troponin I High Sens 8.2 (2.3-14.8) ng/L B-Natriuretic Peptide (5-100) pg/mL Total Protein 7.4 (6.7-8.2) g/dL Albumin 3.9 (3.2-5.5) g/dL Globulin 3.5 (2.1-4.2) g/dL Albumin/Globulin Ratio 1.1 (1.0-2.2) Lipase 36 (22-51) U/L Urine Color Urine Clarity (CLEAR) Urine pH (5.0-7.5) PH Ur Specific [place] (1.002-1.030) Urine Protein (NEGATIVE) mg/dL Urine Glucose (UA) (NEGATIVE) mg/dL Urine Ketones (NEGATIVE) mg/dL Urine Occult Blood (NEGATIVE) Urine Nitrite (NEGATIVE) Urine Bilirubin (NEGATIVE) Urine Urobilinogen (NORMAL) E.U./dL Ur Leukocyte Esterase (NEGATIVE) Urine RBC (0-5) /HPF Urine WBC (0-5) /HPF Ur Squamous Epith Cells (<= Few) Amorphous Sediment /LPF Urine Bacteria (None Seen) /HPF Urine Mucus Urine Culture Comments Nasal Adenovirus (PCR) Nasal B. parapertussis DNA (PCR) Nasal Coronavir 229E PCR Nasal Coronavir HKU1 PCR Nasal Coronavir NL63 PCR Nasal Coronavir OC43 PCR Nasal Enterovir/Rhinovir PCR Nasal Influenza B PCR Nasal Influenza A PCR Nasal Parainfluen 1 PCR Nasal Parainfluen 2 PCR Nasal Parainfluen 3 PCR Nasal Parainfluen 4 PCR Nasal RSV (PCR) Nasal B.pertussis DNA PCR Nasal C.pneumoniae (PCR) Clarisa Human Metapneumo PCR Nasal M.pneumoniae (PCR) Nasal SARS-CoV-2 (PCR) 10/24/20 10/24/20 Range/Units 13:00 13:00 WBC 8.8 (4.8-10.8) x10^3/uL RBC 4.81 (4.20-5.40) 10^6/uL Hgb 15.8 (12.0-16.0) g/dL Hct 47.7 H (37.0-47.0) % MCV 99.2 H (81.0-99.0) fL MCH 32.8 H (27.0-31.0) pg MCHC 33.1 (32.0-36.0) g/dL RDW 12.8 (12.0-15.0) % Plt Count 254 (130-450) 10^3/uL MPV 9.8 (7.9-10.8) fL Neut # (Auto) 6.0 (1.5-6.6) 10^3/uL Lymph # (Auto) 1.7 (1.5-3.5) 10^3/uL [place] # (Auto) 0.8 (0.0-1.0) 10^3/uL Eos # (Auto) 0.2 (0.0-0.7) 10^3/uL Baso # (Auto) 0.0 (0.0-0.1) 10^3/uL Absolute Nucleated RBC 0.00 x10^3/uL Total Counted Band Neuts % (Manual) (0 - 10) % Abnorm Lymph % (Manual) % Nucleated RBC % 0.0 /100WBC Neutrophils # (Manual) (1.5-6.6) 10^3/uL Lymphocytes # (Manual) (1.5-3.5) 10^3/uL Monocytes # (Manual) (0.0-1.0) 10^3/uL Eosinophils # (Manual) (0-0.7) 10^3/uL Basophils # (Manual) (0-0.1) 10^3/uL Differential Comment WBC Morphology (NORMAL) Platelet Estimate (NORMAL) Platelet Morphology (NORMAL) RBC Morph Micro Appear (NORMAL) VBG pH (7.31-7.41) VBG pCO2 (41-51) mmHg VBG pO2 (25-47) mmHg VBG HCO3 (23-28) mmol/L VBG Total CO2 (24-29) mmol/L VBG O2 Saturation (60-80) % VBG Base Excess (-2 - +2) mmol/L Sodium (135-145) mmol/L Potassium (3.5-5.0) mmol/L Chloride (101-111) mmol/L Carbon Dioxide (21-32) mmol/L Anion Gap (6-13) BUN (6-20) mg/dL Creatinine (0.4-1.0) mg/dL Estimated GFR (MDRD) (>89) Glucose (70-100) mg/dL POC Whole Bld Glucose (70 - 100) mg/dL Calcium (8.5-10.3) mg/dL Magnesium (1.7-2.8) mg/dL Total Bilirubin (0.2-1.0) mg/dL AST (10-42) IU/L ALT (10-60) IU/L Alkaline Phosphatase (42-121) IU/L Troponin I High Sens (2.3-14.8) ng/L B-Natriuretic Peptide 70 (5-100) pg/mL Total Protein (6.7-8.2) g/dL Albumin (3.2-5.5) g/dL Globulin (2.1-4.2) g/dL Albumin/Globulin Ratio (1.0-2.2) Lipase (22-51) U/L Urine Color Urine Clarity (CLEAR) Urine pH (5.0-7.5) PH Ur Specific [place] (1.002-1.030) Urine Protein (NEGATIVE) mg/dL Urine Glucose (UA) (NEGATIVE) mg/dL Urine Ketones (NEGATIVE) mg/dL Urine Occult Blood (NEGATIVE) Urine Nitrite (NEGATIVE) Urine Bilirubin (NEGATIVE) Urine Urobilinogen (NORMAL) E.U./dL Ur Leukocyte Esterase (NEGATIVE) Urine RBC (0-5) /HPF Urine WBC (0-5) /HPF Ur Squamous Epith Cells (<= Few) Amorphous Sediment /LPF Urine Bacteria (None Seen) /HPF Urine Mucus Urine Culture Comments Nasal Adenovirus (PCR) Nasal B. parapertussis DNA (PCR) Nasal Coronavir 229E PCR Nasal Coronavir HKU1 PCR Nasal Coronavir NL63 PCR Nasal Coronavir OC43 PCR Nasal Enterovir/Rhinovir PCR Nasal Influenza B PCR Nasal Influenza A PCR Nasal Parainfluen 1 PCR Nasal Parainfluen 2 PCR Nasal Parainfluen 3 PCR Nasal Parainfluen 4 PCR Nasal RSV (PCR) Nasal B.pertussis DNA PCR Nasal C.pneumoniae (PCR) Clarisa Human Metapneumo PCR Nasal M.pneumoniae (PCR) Nasal SARS-CoV-2 (PCR) ABX Reporting Has patient been on IV antibiotics over the past 48 hours?: Yes Assessment/Plan - Problem List (1) Acute respiratory failure with hypoxia Impression: This is secondary to the COPD exacerbation. She is still requiring 3 L of oxygen to maintain a saturation in the low 90s. Although improved, she still quite dyspneic and continues to require oxygen. There is no evidence of heart failure at this time given her normal BNP and lack of peripheral edema. At this time we will keep her on Solu-Medrol 60 mg IV 3 times daily with today being day 2. We will keep her on Levaquin IV with today being day 2. Continue duo nebs [id number] with albuterol as needed. Continue oxygen for goal saturation greater than 88%. We did discuss the potential use of morphine but she states last time she took it she felt much more short of breath and so we will hold off on using morphine. (2) COPD with acute exacerbation Impression: This is the cause of her acute respiratory failure with hypoxia. We did obtain an ABG this morning but this was a venous blood gas. This was repeated shortly after and although her PO2 is slightly decreased, her oxygen saturations are in the low 90s which is appropriate given her COPD. There is no evidence of hypercapnia. We will continue with current management as mentioned above. (3) Rhinovirus infection Impression: This is the cause of her COPD exacerbation. Her respiratory PCR panel was positive for enterovirus/rhinovirus. Continue supportive measures and plan as mentioned above. (4) Acute kidney injury Impression: This resolved with IV fluids. This was likely prerenal injury due to poor oral intake from her illness over the past few days. We will discontinue IV fluids and look to resume her Lasix tomorrow. (5) Chronic HFrEF (heart failure with reduced ejection fraction) Impression: Stable and not in exacerbation. Her most recent echocardiogram revealed a preserved ejection fraction. She has a normal BNP without evidence of periphera l edema. We have continued her home metoprolol and will resume her home Lasix tomorrow. (6) Flank pain Impression: Her urinalysis was unremarkable and doubt that she would have nephrolithiasis given lack of blood on her urinalysis and the fact that her pain is bilateral. This is likely secondary to her viral illness and may be musculoskeletal in nature. We will continue with Tylenol as needed. (7) Chronic atrial fibrillation Impression: She is currently paced. We will continue her home metoprolol and Eliquis. (8) Type 2 diabetes mellitus Impression: Her blood glucose was elevated yesterday evening but we did start her on Lantus 10 units and will continue with sliding scale given she is receiving Solu- Medrol. We will continue carb controlled diet.
[2020-10-25 07:27] LABS: ABG PCO2 43 mmHg (34-45)
[2020-10-25 07:28] LABS: ABG BASE EXCESS 1.2 mmol/L (-2.0-3.0); ABG HCO3 26.3 mmol/L (22.0-26.0); ABG PO2 35 mmHg (80-100); ABG TCO2 27.6 MMOL/L (21.0-29.0)
[2020-10-25 07:29] LABS: ABG OXYGEN SATURATION 70 % (94-98); ALLEN TEST POSITIVE
--- NOTE | 2020-10-25 07:40 | PHARMACY PROGRESS NOTE ---
- Best Possible Medication History Admit Date and Time: 10/24/20 1438 Processed by: Nursing Medication History completed: Yes Patient Interview: Completed Secondary Source(s): Pharmacy records, Insurance records As the person ultimately responsible for medication therapy, providers are able to order a medication from an existing home medication list in [facility] via the "Reconcile Routine" prior to Confirmation of that medication by end user support specialist. Such practice is discouraged except when the physician, in their clinical judgment, deems that a medical need exists for a medication without regard to previous use.
[2020-10-25 07:58] LABS: ABG BASE EXCESS 1.7 mmol/L (-2.0-3.0); ABG HCO3 26.9 mmol/L (22.0-26.0); ABG OXYGEN SATURATION 91 % (94-98); ABG PCO2 45 mmHg (34-45); ABG PO2 60 mmHg (80-100); ABG TCO2 28.3 MMOL/L (21.0-29.0)
[2020-10-25] MEDS: INSULIN ASPART 300 UNIT/3 ML PEN SUBQ SCH ×4 (08:19→21:10)
[2020-10-25] MEDS: guaiFENesin 600 MG TABLET PO SCH ×2 (09:05→21:12)
[2020-10-25] MEDS: FLUTICASONE NASAL SPRAY NAS SCH ×2 (09:05→21:11)
[2020-10-25] MEDS: levoFLOXacin 750 MG/150 ML 750 MG/150 ML BAG IV SCH (09:05)
[2020-10-25] MEDS: APIXABAN 5 MG TABLET PO SCH ×2 (09:05→21:11)
[2020-10-25] MEDS: METOPROLOL SUCCINATE 50 MG TABLET PO SCH ×2 (09:13→21:12)
[2020-10-25] MEDS ORDERED: INSULIN GLARGINE 300 UNIT/3 ML PEN SUBQ SCH (21:00)
[2020-10-26] MEDS: SODIUM CHLORIDE FLUSH 0.9% 10 ML SYRINGE IVP SCH ×3 (02:33→16:33)
[2020-10-26] MEDS: IPRATROPIUM/ALBUTEROL 3 ML NEB INH SCH ×5 (02:56→21:26)
[2020-10-26 04:54] LABS: BASOPHILS % (AUTO) 0.2 %; HCT - HEMATOCRIT 44.5 % (37.0-47.0); HGB - HEMOGLOBIN 14.5 g/dL (12.0-16.0); LYMPHOCYTES # (AUTO) 1.2 10^3/uL (1.5-3.5); LYMPHOCYTES % (AUTO) 6.1 %; MEAN CORPUSCULAR HEMOGLOBIN 32.5 pg (27.0-31.0); MEAN CORPUSCULAR HGB CONC 32.6 g/dL (32.0-36.0); MEAN CORPUSCULAR VOLUME 99.8 fL (81.0-99.0); MEAN PLATELET VOLUME 9.8 fL (7.9-10.8); MONOCYTES # (AUTO) 0.6 10^3/uL (0.0-1.0); MONOCYTES % (AUTO) 2.9 %; NEUTROPHILS # (AUTO) 17.2 10^3/uL (1.5-6.6); NEUTROPHILS % (AUTO) 89.7 %; PLT - PLATELET COUNT 241 10^3/uL (130-450); RED BLOOD COUNT 4.46 10^6/uL (4.20-5.40); RED CELL DISTRIBUTION WIDTH 12.9 % (12.0-15.0); WHITE BLOOD COUNT 19.2 x10^3/uL (4.8-10.8)
[2020-10-26 05:12] LABS: CALCIUM 9.7 mg/dL (8.5-10.3); CREATININE 1.3 mg/dL (0.4-1.0); MAGNESIUM 2.6 mg/dL (1.7-2.8); POTASSIUM 3.8 mmol/L (3.5-5.0)
[2020-10-26] MEDS: methylPREDNISolone SUCCINATE 40 MG/ML VIAL IVP SCH ×3 (05:31→21:46)
[2020-10-26] MEDS: SODIUM CHLORIDE FLUSH 0.9% 10 ML SYRINGE IVP PRN (05:31)
[2020-10-26] MEDS: ACETAMINOPHEN 325 MG TABLET PO PRN (05:33)
--- NOTE | 2020-10-26 07:26 | PROVIDER PROGRESS NOTE ---
Subjective - Prog Note Date Prog Note Date: 10/26/20 - Subjective Subjective: She feels like she is improving but still feels short of breath especially with exertion. Still has a significant cough which has not improved with Tessalon. She prefers a heated high flow compared to nasal cannula but she will consider trying the nasal cannula again today. Current Medications - Current Medications Current Medications: Active Medications Acetaminophen (Acetaminophen 325 Mg Tablet) 650 mg PO Q4HR PRN PRN Reason: Pain 1 to 4 Last Admin: 10/26/20 05:33 Dose: 650 mg Documented by: Albuterol (Albuterol Neb 2.5 Mg/3 Ml) 2.5 mg INH RTQ4H PRN PRN Reason: Wheezing Albuterol/Ipratropium (Ipratropium/Albuterol 3 Ml Neb) 3 ml INH Q4HR [facility]AN Last Admin: 10/26/20 02:56 Dose: 3 ml Documented by: Apixaban (Apixaban 5 Mg Tablet) 5 mg PO BID [facility] Last Admin: 10/25/20 21:11 Dose: 5 mg Documented by: Benzonatate (Benzonatate 100 Mg Capsule) 100 mg PO TID PRN PRN Reason: Cough Fluticasone Propionate (Fluticasone Nasal [place]) 1 sprays CLARISA BID [facility] Last Admin: 10/25/20 21:11 Dose: 1 spr Documented by: Guaifenesin (Guaifenesin 600 Mg Tablet) 600 mg PO BID [facility] Last Admin: 10/25/20 21:12 Dose: 600 mg Documented by: Levofloxacin (Levaquin 750 Mg/150 Ml) 750 mg in 150 mls @ 100 mls/hr IV Q24H [facility] Stop: 10/28/20 10:29 Last Infusion: 10/25/20 10:38 Dose: Infused Documented by: Insulin Aspart (Insulin Aspart 300 Unit/3 Ml Pen) 2 - 10 unit SUBQ 0800,1200,1700,2100 [facility]; Protocol Last Admin: 10/25/20 21:10 Dose: 10 unit Documented by: Insulin Glargine (Insulin Glargine 300 Unit/3 Ml Pen) 25 unit SUBQ QPM [facility] Methylprednisolone (Methylprednisolone Succinate 40 Mg/Ml Vial) 60 mg IVP TID [facility] Last Admin: 10/26/20 05:31 Dose: 60 mg Documented by: Metoprolol Succinate (Metoprolol Succinate 50 Mg Tablet) 100 mg PO BID [facility] Last Admin: 10/25/20 21:12 Dose: 100 mg Documented by: Prochlorperazine Edisylate (Prochlorperazine 10 Mg/2 Ml Vial) 10 mg IVP Q6HR PRN PRN Reason: Nausea / Vomiting Sodium Chloride (Sodium Chloride Flush 0.9% 10 Ml Syringe) 10 ml IVP PRN PRN PRN Reason: NEEDED PER PROVIDER ORDERS Last Admin: 10/26/20 05:31 Dose: 10 ml Documented by: Sodium Chloride (Sodium Chloride Flush 0.9% 10 Ml Syringe) 10 ml IVP 0100,0900,1700 [facility] Last Admin: 10/26/20 02:33 Dose: 10 ml Documented by: Albuterol Sulfate [Proair Hfa Inhaler] 2 puffs INH Q4H PRN 09/10/17 Albuterol 2.5 mg INH Q4H PRN 12/29/17 Budesonide [Pulmicort] 0.5 mg INH BID 01/31/19 Fluticasone [Flonase] 1 sprays CLARISA BID 01/31/19 Arformoterol Tartrate [Brovana] 15 mcg NEB BID 09/07/20 Furosemide 40 mg PO BID 09/07/20 Metoprolol Succinate [Toprol Xl] 100 mg PO BID 09/07/20 Apixaban [Eliquis] 5 mg PO BID 10/24/20 Objective - Vital Signs/Intake & Output Reviewed Vital Signs: Yes Vital Signs: Vital Signs x48h Temp Pulse Pulse Resp BP Pulse Ox 10/26/20 05:00 36.3 C L 60 22 123/56 L 93 10/26/20 02:56 68 18 10/26/20 00:25 36.7 C 64 24 123/59 L 95 Intake & Output: Intake & Output 10/23/20 10/24/20 10/25/20 10/26/20 23:59 23:59 23:59 23:59 Intake Total 1280 4220 Output Total 800 Balance 480 4220 - Objective General Appearance: positive: No acute distress, Alert Eyes Bilateral: positive: Normal inspection, Conjunctivae nml ENT: positive: ENT inspection nml Neck: positive: Nml inspection Respiratory: positive: No respiratory distress, Wheezes (Wheezes throughout all lung mathews, slightly improved.), Rhonchi (Faint rhonci bilaterally.) Cardiovascular: positive: Regular rate & rhythm. negative: Tachycardia Skin: positive: Warm, Dry Extremities: positive: Pedal edema (Trace edema in bilateral lower extremities.) Neurologic/Psychiatric: negative: Disoriented to person, Disoriented to place - Lab Results Fish Bones: 10/26/20 04:45 10/26/20 04:45 Other Labs: Lab Results x24hrs 10/26/20 10/26/20 10/25/20 Range/Units 04:45 04:45 20:56 WBC 19.2 H (4.8-10.8) x10^3/uL RBC 4.46 (4.20-5.40) 10^6/uL Hgb 14.5 (12.0-16.0) g/dL Hct 44.5 (37.0-47.0) % MCV 99.8 H (81.0-99.0) fL MCH 32.5 H (27.0-31.0) pg MCHC 32.6 (32.0-36.0) g/dL RDW 12.9 (12.0-15.0) % Plt Count 241 (130-450) 10^3/uL MPV 9.8 (7.9-10.8) fL Neut # (Auto) 17.2 H (1.5-6.6) 10^3/uL Lymph # (Auto) 1.2 L (1.5-3.5) 10^3/uL [place] # (Auto) 0.6 (0.0-1.0) 10^3/uL Eos # (Auto) 0.0 (0.0-0.7) 10^3/uL Baso # (Auto) 0.0 (0.0-0.1) 10^3/uL Absolute Nucleated RBC 0.00 x10^3/uL Nucleated RBC % 0.0 /100WBC Bld Gas Analysis Time Sample Site ABG pH (7.35-7.45) ABG pCO2 (34-45) mmHg ABG pO2 (80-100) mmHg ABG HCO3 (22.0-26.0) mmol/L ABG Total CO2 (21.0-29.0) MMOL/L ABG O2 Saturation (94-98) % ABG Base Excess (-2.0-3.0) mmol/L Elio Test O2 Delivery Device O2 Liters/Min LPM Sodium 139 (135-145) mmol/L Potassium 3.8 (3.5-5.0) mmol/L Chloride 102 (101-111) mmol/L Carbon Dioxide 26 (21-32) mmol/L Anion Gap 11.0 (6-13) BUN 30 H (6-20) mg/dL Creatinine 1.3 H (0.4-1.0) mg/dL Estimated GFR (MDRD) 42 L (>89) Glucose 285 H (70-100) mg/dL POC Whole Bld Glucose 351 H (70 - 100) mg/dL Calcium 9.7 (8.5-10.3) mg/dL Magnesium 2.6 (1.7-2.8) mg/dL 10/25/20 10/25/20 10/25/20 Range/Units 16:25 12:05 07:45 WBC (4.8-10.8) x10^3/uL RBC (4.20-5.40) 10^6/uL Hgb (12.0-16.0) g/dL Hct (37.0-47.0) % MCV (81.0-99.0) fL MCH (27.0-31.0) pg MCHC (32.0-36.0) g/dL RDW (12.0-15.0) % Plt Count (130-450) 10^3/uL MPV (7.9-10.8) fL Neut # (Auto) (1.5-6.6) 10^3/uL Lymph # (Auto) (1.5-3.5) 10^3/uL [place] # (Auto) (0.0-1.0) 10^3/uL Eos # (Auto) (0.0-0.7) 10^3/uL Baso # (Auto) (0.0-0.1) 10^3/uL Absolute Nucleated RBC x10^3/uL Nucleated RBC % /100WBC Bld Gas Analysis Time 0754 Sample Site RIGHT BRACHIAL ABG pH 7.40 (7.35-7.45) ABG pCO2 45 (34-45) mmHg ABG pO2 60 L (80-100) mmHg ABG HCO3 26.9 H (22.0-26.0) mmol/L ABG Total CO2 28.3 (21.0-29.0) MMOL/L ABG O2 Saturation 91 L (94-98) % ABG Base Excess 1.7 (-2.0-3.0) mmol/L Elio Test NOT APPLICABLE O2 Delivery Device NASAL CANNULA O2 Liters/Min 2.00 LPM Sodium (135-145) mmol/L Potassium (3.5-5.0) mmol/L Chloride (101-111) mmol/L Carbon Dioxide (21-32) mmol/L Anion Gap (6-13) BUN (6-20) mg/dL Creatinine (0.4-1.0) mg/dL Estimated GFR (MDRD) (>89) Glucose (70-100) mg/dL POC Whole Bld Glucose 237 H 241 H (70 - 100) mg/dL Calcium (8.5-10.3) mg/dL Magnesium (1.7-2.8) mg/dL 10/25/20 10/25/20 Range/Units 07:41 07:17 WBC (4.8-10.8) x10^3/uL RBC (4.20-5.40) 10^6/uL Hgb (12.0-16.0) g/dL Hct (37.0-47.0) % MCV (81.0-99.0) fL MCH (27.0-31.0) pg MCHC (32.0-36.0) g/dL RDW (12.0-15.0) % Plt Count (130-450) 10^3/uL MPV (7.9-10.8) fL Neut # (Auto) (1.5-6.6) 10^3/uL Lymph # (Auto) (1.5-3.5) 10^3/uL [place] # (Auto) (0.0-1.0) 10^3/uL Eos # (Auto) (0.0-0.7) 10^3/uL Baso # (Auto) (0.0-0.1) 10^3/uL Absolute Nucleated RBC x10^3/uL Nucleated RBC % /100WBC Bld Gas Analysis Time 0723 Sample Site RIGHT RADIAL ABG pH 7.40 (7.35-7.45) ABG pCO2 43 (34-45) mmHg ABG pO2 35 L* (80-100) mmHg ABG HCO3 26.3 H (22.0-26.0) mmol/L ABG Total CO2 27.6 (21.0-29.0) MMOL/L ABG O2 Saturation 70 L* (94-98) % ABG Base Excess 1.2 (-2.0-3.0) mmol/L Elio Test POSITIVE O2 Delivery Device NASAL CANNULA O2 Liters/Min 2.00 LPM Sodium (135-145) mmol/L Potassium (3.5-5.0) mmol/L Chloride (101-111) mmol/L Carbon Dioxide (21-32) mmol/L Anion Gap (6-13) BUN (6-20) mg/dL Creatinine (0.4-1.0) mg/dL Estimated GFR (MDRD) (>89) Glucose (70-100) mg/dL POC Whole Bld Glucose 183 H (70 - 100) mg/dL Calcium (8.5-10.3) mg/dL Magnesium (1.7-2.8) mg/dL ABX Reporting Has patient been on IV antibiotics over the past 48 hours?: Yes Assessment/Plan - Problem List (1) Acute respiratory failure with hypoxia Impression: She was placed on heated high flow nasal cannula yesterday as she felt this made her feel more comfortable. She is requiring 40 L a minute at an FiO2 of 35%. She does appear to be improved but she still does have significant dyspnea and wheezing throughout all lung mathews. Low suspicion for heart failure at this time. I believe this is her COPD that has flared up secondary to the rhinovirus infection. We will keep her on Levaquin, duo nebs [id number] and albuterol as needed. We will continue Solu-Medrol with today being day 3. We will look to switch her to p.o. steroids tomorrow. We we will trial nasal cannula again this afternoon. Continue supplemental oxygen for goal saturation greater than 88%. She is improving but quite slowly and she will likely need a few more days of hospitalization. (2) COPD with acute exacerbation Impression: This is the cause of her respiratory failure as mentioned above. We will continue with management with antibiotics, duo nebs, albuterol, steroids. (3) Rhinovirus infection Impression: This is the likely trigger of her COPD exacerbation. Continue supportive management (4) Acute kidney injury Impression: Creatinine is slightly increased again today. We had discontinued her IV fluids yesterday. We will continue to monitor her renal function off of IV fluids and will continue to hold her Lasix. (5) Chronic HFrEF (heart failure with reduced ejection fraction) Impression: This does not appear to be in exacerbation. We will hold her home Lasix another day given the mild increase in her creatinine. (6) Chronic atrial fibrillation Impression: She is rate controlled. We will continue metoprolol and Eliquis. (7) Type 2 diabetes mellitus Impression: Her blood glucose has been poorly controlled given she received steroids. We did increase her Lantus yesterday evening and we will further increase this today to 25 units. If she remains hyperglycemic we will add NovoLog with meals. Continue carb controlled diet.
[2020-10-26] MEDS: guaiFENesin 600 MG TABLET PO SCH ×2 (08:10→21:45)
[2020-10-26] MEDS: METOPROLOL SUCCINATE 50 MG TABLET PO SCH ×2 (08:10→21:45)
[2020-10-26] MEDS: FLUTICASONE NASAL SPRAY NAS SCH ×2 (08:10→21:46)
[2020-10-26] MEDS: levoFLOXacin 750 MG/150 ML 750 MG/150 ML BAG IV SCH (08:10)
[2020-10-26] MEDS: APIXABAN 5 MG TABLET PO SCH ×2 (08:10→21:45)
[2020-10-26] MEDS: INSULIN ASPART 300 UNIT/3 ML PEN SUBQ SCH ×5 (08:10→21:49)
[2020-10-26] MEDS: guaiFENesin 100 MG/5 ML UDC PO PRN (16:32)
[2020-10-26] MEDS: BENZONATATE 100 MG CAPSULE PO PRN (16:32)
[2020-10-26] MEDS: INSULIN GLARGINE 300 UNIT/3 ML PEN SUBQ SCH (21:49)
[2020-10-27] MEDS: IPRATROPIUM/ALBUTEROL 3 ML NEB INH SCH ×6 (01:45→21:47)
[2020-10-27] MEDS: SODIUM CHLORIDE FLUSH 0.9% 10 ML SYRINGE IVP SCH ×4 (04:40→23:40)
[2020-10-27 05:42] LABS: BASOPHILS % (AUTO) 0.2 %; HCT - HEMATOCRIT 45.1 % (37.0-47.0); HGB - HEMOGLOBIN 14.7 g/dL (12.0-16.0); LYMPHOCYTES % (AUTO) 5.8 %; MEAN CORPUSCULAR HEMOGLOBIN 32.8 pg (27.0-31.0); MEAN CORPUSCULAR HGB CONC 32.6 g/dL (32.0-36.0); MEAN CORPUSCULAR VOLUME 100.7 fL (81.0-99.0); MONOCYTES % (AUTO) 3.4 %; NEUTROPHILS % (AUTO) 88.9 %; PLT - PLATELET COUNT 263 10^3/uL (130-450); RED BLOOD COUNT 4.48 10^6/uL (4.20-5.40); WHITE BLOOD COUNT 18.2 x10^3/uL (4.8-10.8)
[2020-10-27 05:43] LABS: ABNORMAL LYMPHS % (MANUAL) 0 %; BAND NEUTROPHILS % (MANUAL) 0 %
[2020-10-27 05:52] LABS: CALCIUM 9.8 mg/dL (8.5-10.3); MAGNESIUM 2.7 mg/dL (1.7-2.8)
[2020-10-27 06:00] LABS: LYMPHOCYTES % (MANUAL) 11 %; MONOCYTES # (MANUAL) 0.5 10^3/uL (0.0-1.0); NEUTROPHILS # (MANUAL) 15.7 10^3/uL (1.5-6.6); PLATELET ESTIMATE, MANUAL NORMAL (130-450,000) (NORMAL); PLATELET MORPHOLOGY NORMAL APPEARANCE (NORMAL); RBC MORPHOLOGY (MULTIPLE) NORMAL APPEARANCE (NORMAL); WBC MORPHOLOGY (MULTIPLE) NORMAL APPEARANCE (NORMAL)
[2020-10-27 06:01] LABS: DIFFERENTIAL COMMENT MANUAL DIFFERENTIAL
[2020-10-27] MEDS: methylPREDNISolone SUCCINATE 40 MG/ML VIAL IVP SCH ×3 (06:05→21:11)
[2020-10-27] MEDS: guaiFENesin 100 MG/5 ML UDC PO PRN (06:05)
[2020-10-27] MEDS: BENZONATATE 100 MG CAPSULE PO PRN (06:06)
[2020-10-27] MEDS: ACETAMINOPHEN 325 MG TABLET PO PRN ×2 (06:06→13:30)
[2020-10-27] MEDS: INSULIN ASPART 300 UNIT/3 ML PEN SUBQ SCH ×7 (08:09→21:12)
[2020-10-27] MEDS: guaiFENesin 600 MG TABLET PO SCH ×2 (08:24→21:11)
[2020-10-27] MEDS: METOPROLOL SUCCINATE 50 MG TABLET PO SCH ×2 (08:24→21:10)
[2020-10-27] MEDS: APIXABAN 5 MG TABLET PO SCH ×2 (08:24→21:11)
[2020-10-27] MEDS: polyethylene glycoL 3350 17 GM PACKET PO SCH (08:25)
[2020-10-27] MEDS: levoFLOXacin 750 MG/150 ML 750 MG/150 ML BAG IV SCH (08:25)
[2020-10-27] MEDS: FLUTICASONE NASAL SPRAY NAS SCH ×2 (08:26→21:11)
--- NOTE | 2020-10-27 08:43 | PROVIDER PROGRESS NOTE ---
Assessment/Plan - Problem List (1) Acute respiratory failure with hypoxia Assessment/Plan: She still needs O2 suppl and has significant dyspnea and wheezing throughout all lung mathews. I believe this is her COPD that has flared up secondary to the rhinovirus infection. Low suspicion for heart failure at this time, without peg edema. We will keep her on Levaquin, duo nebs [id number] and albuterol as needed. We will continue Solu-Medrol iv. We will look to switch her to p.o. steroids soon. We we will trial nasal cannula again this afternoon. Continue supplemental oxygen for goal saturation greater than 88%. She is improving but quite slowly and she will likely need a few more days of hospitalization. (2) COPD with acute exacerbation Impression: This is the cause of her respiratory failure as mentioned above. We will continue with management with antibiotics, duo nebs, albuterol, steroids. (3) Rhinovirus infection Impression: This is the likely trigger of her COPD exacerbation. Continue supportive management (4) Acute kidney injury Impression: Creatinine has improved, it was slightly increased yesterday, but BUN/creat ratio still up. She is off IV fluids for 2 days. We will continue to monitor her renal function off of IV fluids and will continue to hold her Lasix, possibly resume it tomorrow. (5) Chronic HFrEF (heart failure with reduced ejection fraction) Impression: This does not appear to be in exacerbation. We will hold her home Lasix another day given the mild increase in her BUN/creatinine ratio. (6) Chronic atrial fibrillation Impression: She is rate controlled. We will continue her home doses of metoprolol and Eliquis. (7) Type 2 diabetes mellitus Impression: Her blood glucose has been poorly controlled given she received steroids. We did increase her Lantus evening dose. If she remains hyperglycemic we will add NovoLog with meals. Continue carb controlled diet. (8) Morbid obesity, BMI 40-45 As per hx. - Current Meds Current Meds: Current Medications Generic Name Dose Route Start Last Admin Trade Name Freq PRN Reason Stop Dose Admin Acetaminophen 650 mg 10/24/20 14:38 10/27/20 06:06 Acetaminophen 325 Mg Tablet PO 650 mg Q4HR PRN Administration Pain 1 to 4 Albuterol/Ipratropium 3 ml 10/24/20 17:00 10/27/20 08:17 Ipratropium/Albuterol 3 Ml Neb INH 3 ml Q4HR ROMAN Administration Apixaban 5 mg 10/24/20 21:00 10/27/20 08:24 Apixaban 5 Mg Tablet PO 5 mg BID [facility] Administration Benzonatate 100 mg 10/24/20 14:45 10/27/20 06:06 Benzonatate 100 Mg Capsule PO 100 mg TID PRN Administration Cough Fluticasone Propionate 1 sprays 10/24/20 21:00 10/27/20 08:26 Fluticasone Nasal [place] CLARISA 1 spr BID [facility] Administration Guaifenesin 600 mg 10/24/20 21:00 10/27/20 08:24 Guaifenesin 600 Mg Tablet PO 600 mg BID [facility] Administration Guaifenesin 100 mg 10/26/20 07:58 10/27/20 06:05 Guaifenesin 100 Mg/5 Ml Udc PO 100 mg Q6HR PRN Administration Cough Levofloxacin 750 mg in 150 mls @ 100 mls/hr 10/25/20 09:00 10/27/20 08:25 Levaquin 750 Mg/150 Ml IV 10/28/20 10:29 100 mls/hr Q24H [facility] Administration Insulin Aspart 3 - 11 unit 10/26/20 17:00 10/27/20 08:10 Insulin Aspart 300 Unit/3 Ml Pen SUBQ 7 unit 0800,1200,1700,2100 [facility] Administration Protocol Insulin Aspart 7 unit 10/27/20 08:00 10/27/20 08:09 Insulin Aspart 300 Unit/3 Ml Pen SUBQ 7 unit TIDWM [facility] Administration Insulin Glargine 25 unit 10/26/20 21:00 10/26/20 21:49 Insulin Glargine 300 Unit/3 Ml Pen SUBQ 25 unit QPM [facility] Administration Methylprednisolone 60 mg 10/24/20 22:00 10/27/20 06:05 Methylprednisolone Succinate 40 Mg/Ml Vial IVP 60 mg TID [facility] Administration Metoprolol Succinate 100 mg 10/24/20 21:00 10/27/20 08:24 Metoprolol Succinate 50 Mg Tablet PO 100 mg BID [facility] Administration Polyethylene Glycol 17 gm 10/27/20 09:00 10/27/20 08:25 Polyethylene Glycol 3350 17 Gm Packet PO Not Given DAILY [facility] Sodium Chloride 10 ml 10/24/20 14:38 10/26/20 05:31 Sodium Chloride Flush 0.9% 10 Ml Syringe IVP 10 ml PRN PRN Administration NEEDED PER PROVIDER ORDERS Sodium Chloride 10 ml 10/24/20 17:00 10/27/20 08:25 Sodium Chloride Flush 0.9% 10 Ml Syringe IVP 10 ml 0100,0900,1700 [facility] Administration - Lab Result Fish Bone Diagrams: 10/27/20 05:12 10/27/20 05:12 Subjective - Subjective Patient Reports: Feeling Better ("slowly better each day") Nursing Reports: Shortness of Breath (wheezing still audible, ruth after a neb tx, per RT.) Objective Vital Signs: Vital Signs - 24 hr 10/26/20 10/26/20 10/26/20 12:01 12:59 16:37 Temperature 36.6 C 36.6 C Heart Rate 59 L Heart Rate [ 59 L 60 Monitoring electrodes] Respiratory 18 24 18 Rate Blood Pressure 136/74 H 129/66 [Right Brachial artery] O2 Saturation 96 93 10/26/20 10/26/20 10/26/20 17:38 21:00 21:28 Temperature 36.2 C L Heart Rate 60 62 Heart Rate [ 74 Monitoring electrodes] Respiratory 26 H 18 20 Rate Blood Pressure 116/68 [Right Brachial artery] O2 Saturation 91 L 10/27/20 10/27/20 10/27/20 00:00 01:45 05:24 Temperature 36.4 C L Heart Rate 57 L 62 Heart Rate [ 60 Monitoring electrodes] Respiratory 18 20 20 Rate Blood Pressure 131/54 H [Right Brachial artery] O2 Saturation 95 10/27/20 10/27/20 10/27/20 06:01 07:28 08:18 Temperature 36.4 C L 36.1 C L Heart Rate 65 Heart Rate [ 60 60 Monitoring electrodes] Respiratory 17 20 26 H Rate Blood Pressure 131/57 H 136/63 H [Right Brachial artery] O2 Saturation 97 98 Oxygen O2 Source [With Activity] Room air O2 Source Nasal cannula Oxygen Flow Rate 2 I&O (Last 24 Hrs): Intake and Output Totals x24h 10/25/20 10/26/20 10/27/20 23:59 23:59 23:59 Intake Total 4220 2690 Balance 4220 2690 General: Alert, Oriented x3, Other (Obese, face flushed. Fan in room.) HEENT: Mucous membr. moist/pink Neck: Supple, Other (Cannot visualize neck for JVP, due to obesity.) Neuro: Alert, Non Focal Cardiovascular: Regular rate Respiratory: Wheezes (diffuse posteriorly.) Abdomen: Soft, Other (Obese with pannus) Extremities: No clubbing, No edema - Results Results: Laboratory Results WBC 18.2 x10^3/uL (4.8-10.8) H 10/27/20 05:12 RBC 4.48 10^6/uL (4.20-5.40) 10/27/20 05:12 Hgb 14.7 g/dL (12.0-16.0) 10/27/20 05:12 Hct 45.1 % (37.0-47.0) 10/27/20 05:12 MCV 100.7 fL (81.0-99.0) H 10/27/20 05:12 MCH 32.8 pg (27.0-31.0) H 10/27/20 05:12 MCHC 32.6 g/dL (32.0-36.0) 10/27/20 05:12 RDW 13.0 % (12.0-15.0) 10/27/20 05:12 Plt Count 263 10^3/uL (130-450) 10/27/20 05:12 MPV 10.0 fL (7.9-10.8) 10/27/20 05:12 Neut # (Auto) Not Reportable 10/27/20 05:12 Lymph # (Auto) Not Reportable 10/27/20 05:12 [place] # (Auto) Not Reportable 10/27/20 05:12 Eos # (Auto) Not Reportable 10/27/20 05:12 Baso # (Auto) Not Reportable 10/27/20 05:12 Absolute Nucleated RBC Not Reportable 10/27/20 05:12 Total Counted 100 10/27/20 05:12 Band Neuts % (Manual) 0 % (0-10) 10/27/20 05:12 Abnorm Lymph % (Manual) 0 % 10/27/20 05:12 Nucleated RBC % Not Reportable 10/27/20 05:12 Neutrophils # (Manual) 15.7 10^3/uL (1.5-6.6) H 10/27/20 05:12 Lymphocytes # (Manual) 2.0 10^3/uL (1.5-3.5) 10/27/20 05:12 Monocytes # (Manual) 0.5 10^3/uL (0.0-1.0) 10/27/20 05:12 Eosinophils # (Manual) 0.0 10^3/uL (0-0.7) 10/27/20 05:12 Basophils # (Manual) 0.0 10^3/uL (0-0.1) 10/27/20 05:12 Differential Comment MANUAL DIFFERENTIAL 10/27/20 05:12 WBC Morphology NORMAL APPEARANCE (NORMAL) 10/27/20 05:12 Platelet Estimate NORMAL (130-450,000) (NORMAL) 10/27/20 05:12 Platelet Morphology NORMAL APPEARANCE (NORMAL) 10/27/20 05:12 RBC Morph Micro Appear NORMAL APPEARANCE (NORMAL) 10/27/20 05:12 Bld Gas Analysis Time 0754 10/25/20 07:45 Sample Site RIGHT BRACHIAL 10/25/20 07:45 ABG pH 7.40 (7.35-7.45) 10/25/20 07:45 ABG pCO2 45 mmHg (34-45) 10/25/20 07:45 ABG pO2 60 mmHg (80-100) L 10/25/20 07:45 ABG HCO3 26.9 mmol/L (22.0-26.0) H 10/25/20 07:45 ABG Total CO2 28.3 MMOL/L (21.0-29.0) 10/25/20 07:45 ABG O2 Saturation 91 % (94-98) L 10/25/20 07:45 ABG Base Excess 1.7 mmol/L (-2.0-3.0) 10/25/20 07:45 Elio Test NOT APPLICABLE 10/25/20 07:45 VBG pH 7.369 (7.31-7.41) 10/24/20 13:10 VBG pCO2 52.1 mmHg (41-51) H 10/24/20 13:10 VBG pO2 38.2 mmHg (25-47) 10/24/20 13:10 VBG HCO3 29.4 mmol/L (23-28) H 10/24/20 13:10 VBG Total CO2 31.0 mmol/L (24-29) H 10/24/20 13:10 VBG O2 Saturation 75.5 % (60-80) 10/24/20 13:10 VBG Base Excess 2.8 mmol/L (-2 - +2) H 10/24/20 13:10 O2 Delivery Device NASAL CANNULA 10/25/20 07:45 O2 Liters/Min 2.00 LPM 10/25/20 07:45 Sodium 140 mmol/L (135-145) 10/27/20 05:12 Potassium 4.0 mmol/L (3.5-5.0) 10/27/20 05:12 Chloride 103 mmol/L (101-111) 10/27/20 05:12 Carbon Dioxide 27 mmol/L (21-32) 10/27/20 05:12 Anion Gap 10.0 (6-13) 10/27/20 05:12 BUN 29 mg/dL (6-20) H 10/27/20 05:12 Creatinine 1.0 mg/dL (0.4-1.0) 10/27/20 05:12 Estimated GFR (MDRD) 57 (>89) L 10/27/20 05:12 Glucose 293 mg/dL (70-100) H 10/27/20 05:12 POC Whole Bld Glucose 274 mg/dL (70 - 100) H 10/27/20 07:26 Calcium 9.8 mg/dL (8.5-10.3) 10/27/20 05:12 Magnesium 2.7 mg/dL (1.7-2.8) 10/27/20 05:12 Total Bilirubin 0.6 mg/dL (0.2-1.0) 10/24/20 13:00 AST 22 IU/L (10-42) 10/24/20 13:00 ALT 25 IU/L (10-60) 10/24/20 13:00 Alkaline Phosphatase 117 IU/L (42-121) 10/24/20 13:00 Troponin I High Sens 8.2 ng/L (2.3-14.8) 10/24/20 13:00 B-Natriuretic Peptide 70 pg/mL (5-100) 10/24/20 13:00 Total Protein 7.4 g/dL (6.7-8.2) 10/24/20 13:00 Albumin 3.9 g/dL (3.2-5.5) 10/24/20 13:00 Globulin 3.5 g/dL (2.1-4.2) 10/24/20 13:00 Albumin/Globulin Ratio 1.1 (1.0-2.2) 10/24/20 13:00 Lipase 36 U/L (22-51) 10/24/20 13:00 Urine Color YELLOW 10/24/20 19:00 Urine Clarity CLEAR (CLEAR) 10/24/20 19:00 Urine pH 6.0 PH (5.0-7.5) 10/24/20 19:00 Ur Specific [place] 1.020 (1.002-1.030) 10/24/20 19:00 Urine Protein NEGATIVE mg/dL (NEGATIVE) 10/24/20 19:00 Urine Glucose (UA) NEGATIVE mg/dL (NEGATIVE) 10/24/20 19:00 Urine Ketones NEGATIVE mg/dL (NEGATIVE) 10/24/20 19:00 Urine Occult Blood NEGATIVE (NEGATIVE) 10/24/20 19:00 Urine Nitrite NEGATIVE (NEGATIVE) 10/24/20 19:00 Urine Bilirubin NEGATIVE (NEGATIVE) 10/24/20 19:00 Urine Urobilinogen 0.2 (NORMAL) E.U./dL (NORMAL) 10/24/20 19:00 Ur Leukocyte Esterase NEGATIVE (NEGATIVE) 10/24/20 19:00 Urine RBC 0-5 /HPF (0-5) 10/24/20 19:00 Urine WBC 0-3 /HPF (0-5) 10/24/20 19:00 Ur Squamous Epith Cells RARE Squamous (<= Few) 10/24/20 19:00 Amorphous Sediment Rare /LPF 10/24/20 19:00 Urine Bacteria Rare /HPF (None Seen) 10/24/20 19:00 Urine Mucus Few Strands 10/24/20 19:00 Urine Culture Comments NOT INDICATED 10/24/20 19:00 Nasal Adenovirus (PCR) NOT DETECTED 10/24/20 13:12 Nasal B. parapertussis DNA (PCR) NOT DETECTED 10/24/20 13:12 Nasal Coronavir 229E PCR NOT DETECTED 10/24/20 13:12 Nasal Coronavir HKU1 PCR NOT DETECTED 10/24/20 13:12 Nasal Coronavir NL63 PCR NOT DETECTED 10/24/20 13:12 Nasal Coronavir OC43 PCR NOT DETECTED 10/24/20 13:12 Nasal Enterovir/Rhinovir PCR DETECTED A 10/24/20 13:12 Nasal Influenza B PCR NOT DETECTED 10/24/20 13:12 Nasal Influenza A PCR NOT DETECTED 10/24/20 13:12 Nasal Parainfluen 1 PCR NOT DETECTED 10/24/20 13:12 Nasal Parainfluen 2 PCR NOT DETECTED 10/24/20 13:12 Nasal Parainfluen 3 PCR NOT DETECTED 10/24/20 13:12 Nasal Parainfluen 4 PCR NOT DETECTED 10/24/20 13:12 Nasal RSV (PCR) NOT DETECTED 10/24/20 13:12 Nasal B.pertussis DNA PCR NOT DETECTED 10/24/20 13:12 Nasal C.pneumoniae (PCR) NOT DETECTED 10/24/20 13:12 Clarisa Human Metapneumo PCR NOT DETECTED 10/24/20 13:12 Nasal M.pneumoniae (PCR) NOT DETECTED 10/24/20 13:12 Nasal SARS-CoV-2 (PCR) NOT DETECTED 10/24/20 13:12 - Procedures Procedures: Procedures ESOPHAGOGASTRODUODENOSCOPY [EGD] W/CLOSED BIOPSY (11/29/13) INSERTION OF INFUSION DEV INTO SUP VENA CAVA, PERC APPROACH (12/28/17) MANUAL RUPT JOINT ADHES (04/27/14) TOTAL KNEE REPLACEMENT (06/16/14)
[2020-10-27] MEDS: SODIUM CHLORIDE FLUSH 0.9% 10 ML SYRINGE IVP PRN (13:31)
[2020-10-27] MEDS: INSULIN GLARGINE 300 UNIT/3 ML PEN SUBQ SCH (21:12)
[2020-10-28] MEDS: IPRATROPIUM/ALBUTEROL 3 ML NEB INH SCH ×6 (01:41→21:57)
[2020-10-28 05:05] LABS: BASOPHILS # (AUTO) 0.1 10^3/uL (0.0-0.1); BASOPHILS % (AUTO) 0.5 %; HCT - HEMATOCRIT 45.4 % (37.0-47.0); HGB - HEMOGLOBIN 14.4 g/dL (12.0-16.0); LYMPHOCYTES % (AUTO) 6.6 %; MEAN CORPUSCULAR HEMOGLOBIN 31.9 pg (27.0-31.0); MEAN CORPUSCULAR HGB CONC 31.7 g/dL (32.0-36.0); MEAN CORPUSCULAR VOLUME 100.4 fL (81.0-99.0); MEAN PLATELET VOLUME 9.8 fL (7.9-10.8); MONOCYTES # (AUTO) 0.5 10^3/uL (0.0-1.0); MONOCYTES % (AUTO) 3.2 %; NEUTROPHILS # (AUTO) 13.2 10^3/uL (1.5-6.6); NEUTROPHILS % (AUTO) 87.4 %; PLT - PLATELET COUNT 268 10^3/uL (130-450); RED BLOOD COUNT 4.52 10^6/uL (4.20-5.40); WHITE BLOOD COUNT 15.1 x10^3/uL (4.8-10.8)
[2020-10-28 05:10] LABS: CALCIUM 9.3 mg/dL (8.5-10.3); CREATININE 1.1 mg/dL (0.4-1.0); MAGNESIUM 2.7 mg/dL (1.7-2.8); POTASSIUM 4.4 mmol/L (3.5-5.0)
[2020-10-28] MEDS: methylPREDNISolone SUCCINATE 40 MG/ML VIAL IVP SCH ×3 (05:17→21:46)
[2020-10-28] MEDS: SODIUM CHLORIDE FLUSH 0.9% 10 ML SYRINGE IVP PRN (05:17)
[2020-10-28] MEDS: FLUTICASONE NASAL SPRAY NAS SCH ×2 (08:12→21:41)
[2020-10-28] MEDS: DOCUSATE SODIUM 250 MG CAPSULE PO SCH (08:12)
[2020-10-28] MEDS: polyethylene glycoL 3350 17 GM PACKET PO SCH (08:12)
[2020-10-28] MEDS: SENNA 8.6 MG TABLET PO SCH (08:13)
[2020-10-28] MEDS: INSULIN ASPART 300 UNIT/3 ML PEN SUBQ SCH ×7 (08:14→21:41)
[2020-10-28] MEDS: guaiFENesin 600 MG TABLET PO SCH ×2 (08:15→21:29)
[2020-10-28] MEDS: APIXABAN 5 MG TABLET PO SCH ×2 (08:15→21:29)
[2020-10-28] MEDS: ACETAMINOPHEN 325 MG TABLET PO PRN ×3 (08:15→20:21)
[2020-10-28] MEDS: METOPROLOL SUCCINATE 50 MG TABLET PO SCH ×2 (08:15→23:05)
[2020-10-28] MEDS: SODIUM CHLORIDE FLUSH 0.9% 10 ML SYRINGE IVP SCH ×3 (08:16→23:54)
[2020-10-28] MEDS: levoFLOXacin 750 MG/150 ML 750 MG/150 ML BAG IV SCH (08:19)
--- NOTE | 2020-10-28 08:39 | XRAY Report ---
PROCEDURE: Chest 1 View X-Ray INDICATIONS: CHF vs pneumonia vs bronchitis TECHNIQUE: One view of the chest was acquired. COMPARISON: Chest single view 10/24/2020 and 09/16/2020 FINDINGS: Surgical changes and devices: Pacemaking device and leads in stable over time. Lungs and pleura: No pleural effusions or pneumothorax. Lungs are edematous, moderate in severity, in addition to large body habitus.. Mediastinum: Mediastinal contours appear normal. Heart size is mildly enlarged. Bones and chest wall: No suspicious bony lesions. Overlying soft tissues appear unremarkable. IMPRESSION: Mild cardiomegaly, mild generalized pulmonary edema likely cardiogenic in origin. No pleural effusion seen. No focal pneumonia found. Reviewed by: Brody Franks MD on 10/28/2020 8:37 AM PDT Approved by: Brody Franks MD on 10/28/2020 8:37 AM PDT Station ID: [id number]
[2020-10-28] MEDS: FUROSEMIDE 40 MG TABLET PO SCH ×2 (10:15→14:07)
--- NOTE | 2020-10-28 10:47 | PROVIDER PROGRESS NOTE ---
Assessment/Plan - Problem List (1) Acute respiratory failure with hypoxia Assessment/Plan: She still needs O2 suppl and has wheezing throughout all lung mathews, but appears less dyspneic. This was her COPD that has flared up secondary to the rhinovirus infection. CXR today shows fluid acculumation as well. Continue Levaquin empiric for bronchitis, duo nebs [id number] and albuterol as needed. Continue steroids, will change to p.o. steroids tomorrow. Will add pm Montelukast today. Continue supplemental oxygen for goal saturation greater than 88%. Will need an oximetry walk test at discharge, and may need (?new) home O2 order. Will resume the diuretic today. (2) COPD with acute exacerbation Impression: This was the likely cause of her respiratory failure as mentioned above. We will continue with management with antibiotics, duo nebs, albuterol, steroids. Will add pm Montelukast today. (3) Rhinovirus infection Impression: This is the likely trigger of her COPD exacerbation. Continue supportive man agement (4) Chronic HFrEF (heart failure with reduced ejection fraction) Impression: CXR done today showed mild CHF. Her home Lasix dose will restart today. (5) Acute kidney injury Impression: BUN/creat ratio up. She is off IV fluids for 3 days. Lasix will be resumed today. (6) Chronic atrial fibrillation Impression: She is rate controlled. We will continue her home doses of metoprolol and Eliquis. (7) Type 2 diabetes mellitus Impression: Her blood glucose has been poorly controlled given she received steroids. We did increase her Lantus evening dose. Continue carb controlled diet and ss Insulin coverage. (8) Constipation She has had no BM since admission and says she has a BM sometimes 7-10 days apart. I spoke to the RN regarding bowel protocol and was told she is refusing all bowel meds. I readdressed this with patient and indeed she wants none of it, and no enemas or suppositories. (9) Morbid obesity, BMI 40-45 As per hx. - Current Meds Current Meds: Current Medications Generic Name Dose Route Start Last Admin Trade Name Freq PRN Reason Stop Dose Admin Acetaminophen 650 mg 10/24/20 14:38 10/28/20 08:15 Acetaminophen 325 Mg Tablet PO 650 mg Q4HR PRN Administration Pain 1 to 4 Albuterol/Ipratropium 3 ml 10/24/20 17:00 10/28/20 09:24 Ipratropium/Albuterol 3 Ml Neb INH 3 ml Q4HR ROMAN Administration Apixaban 5 mg 10/24/20 21:00 10/28/20 08:15 Apixaban 5 Mg Tablet PO 5 mg BID ROMAN Administration Benzonatate 100 mg 10/24/20 14:45 10/27/20 06:06 Benzonatate 100 Mg Capsule PO 100 mg TID PRN Administration Cough Docusate Sodium 250 - 500 mg 10/28/20 09:00 10/28/20 08:12 Docusate Sodium 250 Mg Capsule PO Not Given DAILY ROMAN Fluticasone Propionate 1 sprays 10/24/20 21:00 10/28/20 08:12 Fluticasone Nasal [place] CLARISA 1 spr BID ROMAN Administration Furosemide 40 mg 10/28/20 09:30 10/28/20 10:15 Furosemide 40 Mg Tablet PO 40 mg BIDDIURETIC ROMAN Administration Guaifenesin 600 mg 10/24/20 21:00 10/28/20 08:15 Guaifenesin 600 Mg Tablet PO 600 mg BID ROMAN Administration Guaifenesin 100 mg 10/26/20 07:58 10/27/20 06:05 Guaifenesin 100 Mg/5 Ml Udc PO 100 mg Q6HR PRN Administration Cough Insulin Aspart 3 - 11 unit 10/26/20 17:00 10/28/20 08:14 Insulin Aspart 300 Unit/3 Ml Pen SUBQ 7 unit 0800,1200,1700,2100 ROMAN Administration Protocol Insulin Aspart 7 unit 10/27/20 08:00 10/28/20 08:14 Insulin Aspart 300 Unit/3 Ml Pen SUBQ 7 unit TIDWM ROMAN Administration Insulin Glargine 25 unit 10/26/20 21:00 10/27/20 21:12 Insulin Glargine 300 Unit/3 Ml Pen SUBQ 25 unit QPM RMOAN Administration Methylprednisolone 60 mg 10/24/20 22:00 10/28/20 05:17 Methylprednisolone Succinate 40 Mg/Ml Vial IVP 60 mg TID ROMAN Administration Metoprolol Succinate 100 mg 10/24/20 21:00 10/28/20 08:15 Metoprolol Succinate 50 Mg Tablet PO 100 mg BID ROMAN Administration Polyethylene Glycol 17 gm 10/27/20 09:00 10/28/20 08:12 Polyethylene Glycol 3350 17 Gm Packet PO Not Given DAILY ROMAN Senna 8.6 - 17.2 mg 10/28/20 09:00 10/28/20 08:13 Senna 8.6 Mg Tablet PO Not Given DAILY ROMAN Sodium Chloride 10 ml 10/24/20 14:38 10/28/20 05:17 Sodium Chloride Flush 0.9% 10 Ml Syringe IVP 10 ml PRN PRN Administration NEEDED PER PROVIDER ORDERS Sodium Chloride 10 ml 10/24/20 17:00 10/28/20 08:16 Sodium Chloride Flush 0.9% 10 Ml Syringe IVP 10 ml 0100,0900,1700 ROMAN Administration - Lab Result Fish Bone Diagrams: 10/28/20 04:39 10/28/20 04:39 - Diagnostic Imaging Results Diagnostic Imaging Results: Final report reviewed Diagnostic Imaging Results Comments: CXR done today showed mild CHF - Additional Planning My Orders: My Active Orders 10/28/20 07:51 Miscellaenous Nursing Order [RC] QSHIFT 10/28/20 09:00 Docusate Sodium 250Mg Capsule [Colace 250Mg Capsule] 250 - 500 mg PO DAILY Senna [Senokot] 8.6 - 17.2 mg PO DAILY 10/28/20 09:30 Furosemide [Lasix] 40 mg PO BIDDIURETIC 10/28/20 21:00 Montelukast [Singulair] 10 mg PO QPM Subjective - Subjective Patient Reports: Feeling Better, Resting Comfortably, No Complaints Objective Vital Signs: Vital Signs - 24 hr 10/27/20 10/27/20 10/27/20 12:57 13:50 15:48 Temperature 36.5 C 36.6 C Heart Rate 60 Heart Rate [ 63 107 H Brachial] Heart Rate [ Monitoring electrodes] Respiratory 16 24 24 Rate Blood Pressure 126/52 L 110/66 [Right Brachial artery] O2 Saturation 96 97 10/27/20 10/27/20 10/27/20 17:48 19:37 21:50 Temperature 37.7 C Heart Rate 59 L 60 Heart Rate [ 61 Brachial] Heart Rate [ Monitoring electrodes] Respiratory 22 24 20 Rate Blood Pressure 137/63 H [Right Brachial artery] O2 Saturation 95 10/27/20 10/28/20 10/28/20 23:42 01:42 04:11 Temperature 36.4 C L 36.5 C Heart Rate 62 Heart Rate [ 70 Brachial] Heart Rate [ 63 Monitoring electrodes] Respiratory 23 20 24 Rate Blood Pressure 99/76 114/85 H [Right Brachial artery] O2 Saturation 95 93 10/28/20 10/28/20 10/28/20 05:45 07:29 09:24 Temperature 36.5 C Heart Rate 64 60 Heart Rate [ 63 Brachial] Heart Rate [ Monitoring electrodes] Respiratory 20 18 22 Rate Blood Pressure 138/61 H [Right Brachial artery] O2 Saturation 93 Oxygen O2 Source [With Activity] Room air O2 Source Nasal cannula Oxygen Flow Rate 2 I&O (Last 24 Hrs): Intake and Output Totals x24h 10/26/20 10/27/20 10/28/20 23:59 23:59 23:59 Intake Total 2690 2467 690 Balance 2690 2467 690 General: Alert, Oriented x3 HEENT: Mucous membr. moist/pink, Other (Flushed face. Obese.) Neck: Supple Neuro: Alert, Non Focal Cardiovascular: No murmurs Respiratory: Wheezes, Rales (Fine scattered rales and exp wheezing heard in all lung mathews.) Abdomen: Soft (Obese with pannus) Extremities: No clubbing, No edema - Results Results: Laboratory Results WBC 15.1 x10^3/uL (4.8-10.8) H 10/28/20 04:39 RBC 4.52 10^6/uL (4.20-5.40) 10/28/20 04:39 Hgb 14.4 g/dL (12.0-16.0) 10/28/20 04:39 Hct 45.4 % (37.0-47.0) 10/28/20 04:39 MCV 100.4 fL (81.0-99.0) H 10/28/20 04:39 MCH 31.9 pg (27.0-31.0) H 10/28/20 04:39 MCHC 31.7 g/dL (32.0-36.0) L 10/28/20 04:39 RDW 13.0 % (12.0-15.0) 10/28/20 04:39 Plt Count 268 10^3/uL (130-450) 10/28/20 04:39 MPV 9.8 fL (7.9-10.8) 10/28/20 04:39 Neut # (Auto) 13.2 10^3/uL (1.5-6.6) H 10/28/20 04:39 Lymph # (Auto) 1.0 10^3/uL (1.5-3.5) L 10/28/20 04:39 [place] # (Auto) 0.5 10^3/uL (0.0-1.0) 10/28/20 04:39 Eos # (Auto) 0.0 10^3/uL (0.0-0.7) 10/28/20 04:39 Baso # (Auto) 0.1 10^3/uL (0.0-0.1) 10/28/20 04:39 Absolute Nucleated RBC 0.00 x10^3/uL 10/28/20 04:39 Total Counted 100 10/27/20 05:12 Band Neuts % (Manual) 0 % (0-10) 10/27/20 05:12 Abnorm Lymph % (Manual) 0 % 10/27/20 05:12 Nucleated RBC % 0.0 /100WBC 10/28/20 04:39 Neutrophils # (Manual) 15.7 10^3/uL (1.5-6.6) H 10/27/20 05:12 Lymphocytes # (Manual) 2.0 10^3/uL (1.5-3.5) 10/27/20 05:12 Monocytes # (Manual) 0.5 10^3/uL (0.0-1.0) 10/27/20 05:12 Eosinophils # (Manual) 0.0 10^3/uL (0-0.7) 10/27/20 05:12 Basophils # (Manual) 0.0 10^3/uL (0-0.1) 10/27/20 05:12 Differential Comment MANUAL DIFFERENTIAL 10/27/20 05:12 WBC Morphology NORMAL APPEARANCE (NORMAL) 10/27/20 05:12 Platelet Estimate NORMAL (130-450,000) (NORMAL) 10/27/20 05:12 Platelet Morphology NORMAL APPEARANCE (NORMAL) 10/27/20 05:12 RBC Morph Micro Appear NORMAL APPEARANCE (NORMAL) 10/27/20 05:12 Bld Gas Analysis Time 0754 10/25/20 07:45 Sample Site RIGHT BRACHIAL 10/25/20 07:45 ABG pH 7.40 (7.35-7.45) 10/25/20 07:45 ABG pCO2 45 mmHg (34-45) 10/25/20 07:45 ABG pO2 60 mmHg (80-100) L 10/25/20 07:45 ABG HCO3 26.9 mmol/L (22.0-26.0) H 10/25/20 07:45 ABG Total CO2 28.3 MMOL/L (21.0-29.0) 10/25/20 07:45 ABG O2 Saturation 91 % (94-98) L 10/25/20 07:45 ABG Base Excess 1.7 mmol/L (-2.0-3.0) 10/25/20 07:45 Elio Test NOT APPLICABLE 10/25/20 07:45 VBG pH 7.369 (7.31-7.41) 10/24/20 13:10 VBG pCO2 52.1 mmHg (41-51) H 10/24/20 13:10 VBG pO2 38.2 mmHg (25-47) 10/24/20 13:10 VBG HCO3 29.4 mmol/L (23-28) H 10/24/20 13:10 VBG Total CO2 31.0 mmol/L (24-29) H 10/24/20 13:10 VBG O2 Saturation 75.5 % (60-80) 10/24/20 13:10 VBG Base Excess 2.8 mmol/L (-2 - +2) H 10/24/20 13:10 O2 Delivery Device NASAL CANNULA 10/25/20 07:45 O2 Liters/Min 2.00 LPM 10/25/20 07:45 Sodium 137 mmol/L (135-145) 10/28/20 04:39 Potassium 4.4 mmol/L (3.5-5.0) 10/28/20 04:39 Chloride 102 mmol/L (101-111) 10/28/20 04:39 Carbon Dioxide 27 mmol/L (21-32) 10/28/20 04:39 Anion Gap 8.0 (6-13) 10/28/20 04:39 BUN 28 mg/dL (6-20) H 10/28/20 04:39 Creatinine 1.1 mg/dL (0.4-1.0) H 10/28/20 04:39 Estimated GFR (MDRD) 51 (>89) L 10/28/20 04:39 Glucose 302 mg/dL (70-100) H 10/28/20 04:39 POC Whole Bld Glucose 265 mg/dL (70 - 100) H 10/28/20 07:28 Calcium 9.3 mg/dL (8.5-10.3) 10/28/20 04:39 Magnesium 2.7 mg/dL (1.7-2.8) 10/28/20 04:39 Total Bilirubin 0.6 mg/dL (0.2-1.0) 10/24/20 13:00 AST 22 IU/L (10-42) 10/24/20 13:00 ALT 25 IU/L (10-60) 10/24/20 13:00 Alkaline Phosphatase 117 IU/L (42-121) 10/24/20 13:00 Troponin I High Sens 8.2 ng/L (2.3-14.8) 10/24/20 13:00 B-Natriuretic Peptide 70 pg/mL (5-100) 10/24/20 13:00 Total Protein 7.4 g/dL (6.7-8.2) 10/24/20 13:00 Albumin 3.9 g/dL (3.2-5.5) 10/24/20 13:00 Globulin 3.5 g/dL (2.1-4.2) 10/24/20 13:00 Albumin/Globulin Ratio 1.1 (1.0-2.2) 10/24/20 13:00 Lipase 36 U/L (22-51) 10/24/20 13:00 Urine Color YELLOW 10/24/20 19:00 Urine Clarity CLEAR (CLEAR) 10/24/20 19:00 Urine pH 6.0 PH (5.0-7.5) 10/24/20 19:00 Ur Specific [place] 1.020 (1.002-1.030) 10/24/20 19:00 Urine Protein NEGATIVE mg/dL (NEGATIVE) 10/24/20 19:00 Urine Glucose (UA) NEGATIVE mg/dL (NEGATIVE) 10/24/20 19:00 Urine Ketones NEGATIVE mg/dL (NEGATIVE) 10/24/20 19:00 Urine Occult Blood NEGATIVE (NEGATIVE) 10/24/20 19:00 Urine Nitrite NEGATIVE (NEGATIVE) 10/24/20 19:00 Urine Bilirubin NEGATIVE (NEGATIVE) 10/24/20 19:00 Urine Urobilinogen 0.2 (NORMAL) E.U./dL (NORMAL) 10/24/20 19:00 Ur Leukocyte Esterase NEGATIVE (NEGATIVE) 10/24/20 19:00 Urine RBC 0-5 /HPF (0-5) 10/24/20 19:00 Urine WBC 0-3 /HPF (0-5) 10/24/20 19:00 Ur Squamous Epith Cells RARE Squamous (<= Few) 10/24/20 19:00 Amorphous Sediment Rare /LPF 10/24/20 19:00 Urine Bacteria Rare /HPF (None Seen) 10/24/20 19:00 Urine Mucus Few Strands 10/24/20 19:00 Urine Culture Comments NOT INDICATED 10/24/20 19:00 Nasal Adenovirus (PCR) NOT DETECTED 10/24/20 13:12 Nasal B. parapertussis DNA (PCR) NOT DETECTED 10/24/20 13:12 Nasal Coronavir 229E PCR NOT DETECTED 10/24/20 13:12 Nasal Coronavir HKU1 PCR NOT DETECTED 10/24/20 13:12 Nasal Coronavir NL63 PCR NOT DETECTED 10/24/20 13:12 Nasal Coronavir OC43 PCR NOT DETECTED 10/24/20 13:12 Nasal Enterovir/Rhinovir PCR DETECTED A 10/24/20 13:12 Nasal Influenza B PCR NOT DETECTED 10/24/20 13:12 Nasal Influenza A PCR NOT DETECTED 10/24/20 13:12 Nasal Parainfluen 1 PCR NOT DETECTED 10/24/20 13:12 Nasal Parainfluen 2 PCR NOT DETECTED 10/24/20 13:12 Nasal Parainfluen 3 PCR NOT DETECTED 10/24/20 13:12 Nasal Parainfluen 4 PCR NOT DETECTED 10/24/20 13:12 Nasal RSV (PCR) NOT DETECTED 10/24/20 13:12 Nasal B.pertussis DNA PCR NOT DETECTED 10/24/20 13:12 Nasal C.pneumoniae (PCR) NOT DETECTED 10/24/20 13:12 Clarisa Human Metapneumo PCR NOT DETECTED 10/24/20 13:12 Nasal M.pneumoniae (PCR) NOT DETECTED 10/24/20 13:12 Nasal SARS-CoV-2 (PCR) NOT DETECTED 10/24/20 13:12 - Procedures Procedures: Procedures ESOPHAGOGASTRODUODENOSCOPY [EGD] W/CLOSED BIOPSY (11/29/13) INSERTION OF INFUSION DEV INTO SUP VENA CAVA, PERC APPROACH (12/28/17) MANUAL RUPT JOINT ADHES (04/27/14) TOTAL KNEE REPLACEMENT (06/16/14)
[2020-10-28] MEDS ORDERED: MONTELUKAST 10 MG TABLET PO SCH (21:00)
[2020-10-28] MEDS: INSULIN GLARGINE 300 UNIT/3 ML PEN SUBQ SCH (21:42)
[2020-10-29] MEDS: guaiFENesin 100 MG/5 ML UDC PO PRN ×2 (00:16→09:04)
[2020-10-29] MEDS: IPRATROPIUM/ALBUTEROL 3 ML NEB INH SCH ×3 (02:13→11:36)
[2020-10-29] MEDS: BENZONATATE 100 MG CAPSULE PO PRN (02:48)
[2020-10-29] MEDS: ACETAMINOPHEN 325 MG TABLET PO PRN (02:56)
[2020-10-29 05:36] LABS: BASOPHILS # (AUTO) 0.1 10^3/uL (0.0-0.1); BASOPHILS % (AUTO) 0.6 %; HCT - HEMATOCRIT 44.9 % (37.0-47.0); HGB - HEMOGLOBIN 14.7 g/dL (12.0-16.0); LYMPHOCYTES # (AUTO) 0.9 10^3/uL (1.5-3.5); LYMPHOCYTES % (AUTO) 6.9 %; MEAN CORPUSCULAR HEMOGLOBIN 32.3 pg (27.0-31.0); MEAN CORPUSCULAR HGB CONC 32.7 g/dL (32.0-36.0); MEAN CORPUSCULAR VOLUME 98.7 fL (81.0-99.0); MEAN PLATELET VOLUME 9.9 fL (7.9-10.8); MONOCYTES # (AUTO) 0.6 10^3/uL (0.0-1.0); MONOCYTES % (AUTO) 4.2 %; NEUTROPHILS # (AUTO) 11.1 10^3/uL (1.5-6.6); PLT - PLATELET COUNT 263 10^3/uL (130-450); RED BLOOD COUNT 4.55 10^6/uL (4.20-5.40); RED CELL DISTRIBUTION WIDTH 13.1 % (12.0-15.0); WHITE BLOOD COUNT 13.2 x10^3/uL (4.8-10.8)
[2020-10-29 05:40] LABS: CALCIUM 9.1 mg/dL (8.5-10.3); CREATININE 1.2 mg/dL (0.4-1.0); MAGNESIUM 2.8 mg/dL (1.7-2.8); POTASSIUM 4.3 mmol/L (3.5-5.0)
[2020-10-29 06:13] LABS: DIFFERENTIAL COMMENT MANUAL=AUTO DIFF; PLATELET ESTIMATE, MANUAL NORMAL (130-450,000) (NORMAL); RBC MORPHOLOGY (MULTIPLE) NORMAL APPEARANCE (NORMAL)
[2020-10-29] MEDS: FUROSEMIDE 40 MG TABLET PO SCH (06:24)
[2020-10-29] MEDS: methylPREDNISolone SUCCINATE 40 MG/ML VIAL IVP SCH (06:25)
[2020-10-29] MEDS: INSULIN ASPART 300 UNIT/3 ML PEN SUBQ SCH ×4 (08:35→12:22)
[2020-10-29] MEDS: METOPROLOL SUCCINATE 50 MG TABLET PO SCH (09:04)
[2020-10-29] MEDS: guaiFENesin 600 MG TABLET PO SCH (09:04)
[2020-10-29] MEDS: APIXABAN 5 MG TABLET PO SCH (09:04)
[2020-10-29] MEDS: DOCUSATE SODIUM 250 MG CAPSULE PO SCH (09:08)
[2020-10-29] MEDS: FLUTICASONE NASAL SPRAY NAS SCH (09:08)
[2020-10-29] MEDS: polyethylene glycoL 3350 17 GM PACKET PO SCH (09:08)
[2020-10-29] MEDS: SENNA 8.6 MG TABLET PO SCH (09:08)
[2020-10-29] MEDS: SODIUM CHLORIDE FLUSH 0.9% 10 ML SYRINGE IVP SCH (09:09)
--- NOTE | 2020-10-29 11:54 | Discharge Plan ---
Discharge Plan Problem Reviewed?: Yes Disposition: Home, Self Care Condition: Fair Prescriptions: Albuterol 2.5 mg INH Q4H PRN #14 units PRN Reason: Shortness Of Air/Wheezing Spironolactone [Aldactone] 25 mg PO DAILY #30 tablet predniSONE [Deltasone] 15 mg PO 0800 #30 tablet guaiFENesin [Leydi-Tussin] 100 mg PO TID PRN #60 ml PRN Reason: Cough metFORMIN [Glucophage] 850 mg PO BID #60 tablet guaiFENesin [Guaifenesin ER] 600 mg PO BID 7 Days #14 tab Formoterol Fumarate [Perforomist] 20 mcg IH BID #10 ml Albuterol Sulfate [Proair Hfa Inhaler] 2 puffs INH Q4H PRN #1 inh PRN Reason: Wheezing Budesonide [Pulmicort] 0.5 mg INH BID #14 units Benzonatate [Tessalon] 100 mg PO TID PRN #21 cap PRN Reason: Cough Diet: Diabetic Activity Restrictions: Activity as Tolerated Shower Restrictions: No Instruction Topics: Diabetes Carbs Health Concerns: You were admitted with a worsening episode of emphysema, you needed nebulizers, steroids and antibiotics. Your diuretic water pills were restarted when fluid started to accumulate. You are being discharged and should take a course of slowly tapering steroids and the medicines you have requested for refill were ordered electronically to your [facility] pharmacy in [place]. There is also that new order for 15 days of a steroid taper, medicines for the cough and oral Metformin tablets for sugar control. Please resume all your other pre-hospital medications. Please see your Primary Care Provider for hospital follow-up visit at his office in the next 1-2 weeks in order to check your lungs and check your sugar control. Keep the appointment for the pulmonary function test this summer and then the Pulmonology appointment after that. You qualify to restart in pulmonary rehab here at the "[facility]" also. You were tested to see if you need a home oxygen order and you do, therefore a new order for Home O2 is being sent to an oxygen company, to be delivered to your home. Plan of Treatment: As above. Care Goals: Improvement in symptoms and stabilization are the goals. Assessment: Patient understands and is agreeable with the plan. Additional Instructions or Follow Up instructions: If you have new or worsening symptoms, call your PCP for advice or come to the ER. Follow-Up Care: [facility] - Pulmonary No Smoking: If you smoke, Please STOP! Call for help.
[2020-10-29 12:08] VITALS: BP 109/54
--- NOTE | 2020-10-29 12:09 | DISCHARGE SUMMARY ---
Discharge Summary Admit Date: 10/24/20 Discharge Date: 10/29/20 Discharging Provider: Dr Esme Dockery Primary Care Provider: Dr Oren Del Real Condition at Discharge: Fair Discharge Disposition: 01 Home, Self Care - HPI History of Present Illness: From the admission H&P of Dr Nikhil Cespedes: This is a 55-year-old female with a past medical history significant for COPD, heart failure with reduced ejection fraction, obstructive sleep apnea, atrial fibrillation, history of cardiac arrest with ICD in place who presents today complaining of shortness of breath. She states she has felt short of breath for the past 3 days and this has progressed. She reports her granddaughter was sick with an upper respiratory infection and she believes that she became ill from her. She reports no cough but she has had significant wheezing. She has tried her home inhalers with only minimal relief. She reports no fevers or chills. Denies chest pain but does have some discomfort with her cough and deep breaths. She reports receiving the [employer] Covid vaccine about 4 days ago. She believes her lower extremities may be a little bit swollen and this has been present over the past 2 weeks. She denies any dysuria, urgency, hematuria but does complain of bilateral flank pain. She denies abdominal pain but does report nausea without vomiting. She states that she has been ill she has had minimal p.o. intake. She believes she may have had a little bit of diarrhea over the past couple of days as well. In the emergency department, she was found to be afebrile. Her heart rate was in the 60s and she was normotensive. She was tachypneic with a respiratory rate in the 20s and required 4 L of oxygen via nasal cannula to maintain oxygen saturation in the 90s. Her labs were significant for a creatinine of 1.4. Her respiratory PCR panel was positive for enterovirus/rhinovirus. Her chest x-ray was concerning for possible edema or artifact versus atypical infection. She was given Levaquin, steroids, duo nebs in the emergency department. Given the above findings, medicine was consulted for admission. We did discuss goals of care and she would like to be a full code. - HOSPITAL COURSE Hospital Course: (1) Acute respiratory failure with hypoxia She needed O2 supplemental and was treated for her COPD flare up (secondary to the rhinovirus infection). On the day before discharge, a CXR showed fluid accumulation and her Lasix was restarted. On the day of discharge she underwent an oximetry study at rest and with exertion. At rest, on room air, her oxygen saturation was 94%, but with exertion on room air, her O2 sats were 85%. Then adding supplemental oxygen at 2 L/min by nasal cannula, with exertion, gave her oxygen saturations to 90%. I am ordering home O2; room air at rest, 2 L/min with exertion, to help treat her COPD, hypoxia and chronic respiratory failure. (2) COPD with acute exacerbation She has recurrent admissions for COPD exacerbations. She was managed with Levaquin empiric for her cough, duo nebs, albuterol nebs, and iv steroids. She received Mucinex, Robitussin liquid as needed and Tessalon Perles for her cough. She was discharged when oxygen saturations at rest on room air were greater than 90%, with plan to resume her home nebs and inhalers and to take Prednisone 15 mg for 5 days, then 10 mg for 5 days, then 5 mg for 5 days, then stop. This patient requires nocturnal and daytime ventilation prn dyspnea. Home BiPAP is insufficient due to the severity of her COPD (J 44.9) and chronic respiratory failure (J 96.20). I am ordering a Trilogy NHV to decrease work of breathing and to reduce hospitalizations and improve patient health. BiPAP was considered and was deemed ineffective. (3) Rhinovirus infection This was the likely trigger of her COPD exacerbation. Droplet isolation precautions were ordered. (4) Chronic HFrEF (heart failure with reduced ejection fraction) When rales were audible on the day before discharge, her b.i.d. oral Lasix was resumed. There was no leg edema during this admission. Her Echo was not repeated. She requested a refill of her home Spironolactone, at discharge, and is to continue Lasix and Metoprolol. (5) Acute kidney injury BUN/creat ratio was slightly abnormal. She did get iv fluids for a day and Las ix was on hold. When rales were audible on the day before discharge, her b.i.d. oral Lasix was resumed. (6) Chronic atrial fibrillation She had good heart rate control. We continued her home doses of Metoprolol and Eliquis. (7) Type 2 diabetes mellitus, steroid-induced Her blood glucose is poorly controlled when on steroids. She was on a carb- controlled diet, Lantus bid and ss Insulin coverage. She claimed she has "Borderline diabetes" and did not want to use Insulin at home. She did agree to use Metformin, while taking the 15 day slow taper of steroids that she was discharged to get. She was advised to see her PCP in 1-2 weeks for a hospital follow-up visit, for lung and glucose check. (8) Constipation She had no BM since admission and says she has a BM sometimes 7-10 days apart. She was also refusing all bowel meds. I readdressed this with patient and indeed she wanted none of it, and no enemas or suppositories. (9) Morbid obesity, BMI 40-45 As per hx. - ALLERGIES Allergies/Adverse Reactions: Allergies Allergy/AdvReac Type Severity Reaction Status Date / Time codeine [Codeine] Allergy Severe Swelling/Hi Verified 10/24/20 12:39 ves erythromycin base Allergy Severe Anaphylaxis Verified 10/24/20 12:39 [Erythromycin Base] gabapentin Allergy Severe Anaphylaxis Verified 10/24/20 12:39 Latex, Natural Rubber Allergy Severe Blisters Verified 10/24/20 12:39 pamabrom [From Midol] Allergy Severe Respiratory Verified 10/24/20 12:39 pyrilamine maleate * Allergy Severe Respiratory Verified 10/24/20 12:39 [From Midol] shellfish derived Allergy Severe Anaphylaxis Verified 10/24/20 12:39 venom-honey bee Allergy Severe Anaphylaxis Verified 10/24/20 12:39 [bee venom (honey bee)] chlorhexidine Allergy Intermediate Rash Verified 10/24/20 12:39 morphine Allergy Respiratory Verified 10/24/20 12:39 ondansetron Allergy Respiratory Verified 10/24/20 12:39 piperacillin [From Zosyn] AdvReac Rash Verified 10/24/20 12:39 tazobactam [From Zosyn] AdvReac Rash Verified 10/24/20 12:39 - MEDICATIONS Home Medications: Ambulatory Orders Medication Instructions Recorded Confirmed Fluticasone [Flonase] 1 sprays CLARISA BID 01/31/19 10/24/20 Furosemide 40 mg PO BID 09/07/20 10/24/20 Metoprolol Succinate [Toprol Xl] 100 mg PO BID 09/07/20 10/24/20 Apixaban [Eliquis] 5 mg PO BID 10/24/20 10/24/20 Albuterol 2.5 mg INH Q4H PRN #14 units 10/29/20 Albuterol Sulfate [Proair Hfa 2 puffs INH Q4H PRN #1 inh 10/29/20 Inhaler] Benzonatate [Tessalon] 100 mg PO TID PRN #21 cap 10/29/20 Budesonide [Pulmicort] 0.5 mg INH BID #14 units 10/29/20 Formoterol Fumarate [Perforomist] 20 mcg IH BID #10 ml 10/29/20 Spironolactone [Aldactone] 25 mg PO DAILY #30 tablet 10/29/20 guaiFENesin [Leydi-Tussin] 100 mg PO TID PRN #60 ml 10/29/20 guaiFENesin [Guaifenesin ER] 600 mg PO BID 7 Days #14 tab 10/29/20 metFORMIN [Glucophage] 850 mg PO BID #60 tablet 10/29/20 predniSONE [Deltasone] 15 mg PO 0800 #30 tablet 10/29/20 - PHYSICAL EXAM AT DISCHARGE General Appearance: positive: No acute distress, Alert, Other (Onese,face flushed) Eyes Bilateral: positive: Normal inspection, PERRL, EOMI ENT: positive: ENT inspection nml, No signs of dehydration Neck: positive: Nml inspection (Obese, cannot eval JVP) Respiratory: positive: Chest non-tender, Other (Scattered wheezes of the left upper lung, scattered rhonchi of both bases posteriorly, good air movement throughout.) Cardiovascular: positive: No murmur, Irregularly irregular, Other (Distant heart sounds) Abdomen: positive: Non-tender (Obese with a large pannus) Skin: positive: Warm, Dry Extremities: positive: Non-tender, No pedal edema Neurologic/Psychiatric: positive: Oriented x3 (Non-focal exam grossly) - LABS Result Diagrams: 10/29/20 04:45 10/29/20 04:45 - DIAGNOSTIC IMAGING Diagnostic Imaging Results: Final report reviewed - FOLLOW UP Follow Up: See PCP in 1-2 weeks. Keep appointment for PFTs in Dec, then first Pulmonology appointment after that.
== END 2020-10-29 12:45 | disposition home or self-care (01) | DRG 189 ==
LOC: ED 12:29 → MS2 14:38
PROVIDERS: ADMIT Internal Medicine; ATTEND Internal Medicine
DX: J96.21 Acute and chronic respiratory failure with hypoxia (principal); J12.89 Other viral pneumonia; I50.22 Chronic systolic (congestive) heart failure; N17.9 Acute kidney failure, unspecified; Z20.822 Contact with and (suspected) exposure to COVID-19; I48.20 Chronic atrial fibrillation, unspecified; I50.20 Unspecified systolic (congestive) heart failure; Z68.41 Body mass index [BMI] 40.0-44.9, adult; J43.9 Emphysema, unspecified; B34.8 Other viral infections of unspecified site; B34.1 Enterovirus infection, unspecified; I48.91 Unspecified atrial fibrillation; I25.2 Old myocardial infarction; I11.0 Hypertensive heart disease with heart failure; K59.00 Constipation, unspecified; E66.01 Morbid (severe) obesity due to excess calories; G47.33 Obstructive sleep apnea (adult) (pediatric); I25.10 Atherosclerotic heart disease of native coronary artery without angina pectoris; Z87.891 Personal history of nicotine dependence; R10.9 Unspecified abdominal pain; E11.65 Type 2 diabetes mellitus with hyperglycemia; Z95.810 Presence of automatic (implantable) cardiac defibrillator; Z86.74 Personal history of sudden cardiac arrest; Z79.01 Long term (current) use of anticoagulants; Z79.899 Other long term (current) drug therapy
CPT/HCPCS: 36415; 36600; 71045; 80048; 80053; 81001; 82803; 83690; 83735; 83880; 84484; 85025; 87631; 93005; 94640; 94761; 96365; 96368; 96375; 99284; 99285; A9270; J1815; J7120; 0202U; 87086

== ENCOUNTER 2020-11-10 08:00 | Outpatient (CLI) | payer MEDICARE, MEDICAID ==
[2020-11-10 20:44] LABS: CALCIUM 9.5 mg/dL (8.5-10.3); CREATININE 1.3 mg/dL (0.4-1.0); POTASSIUM 3.5 mmol/L (3.5-5.0)
[2020-11-10 20:45] LABS: HCT - HEMATOCRIT 46.5 % (37.0-47.0); HGB - HEMOGLOBIN 15.5 g/dL (12.0-16.0); MEAN CORPUSCULAR HGB CONC 33.3 g/dL (32.0-36.0); MEAN CORPUSCULAR VOLUME 99.1 fL (81.0-99.0); MEAN PLATELET VOLUME 10.5 fL (7.9-10.8); RED BLOOD COUNT 4.69 10^6/uL (4.20-5.40); RED CELL DISTRIBUTION WIDTH 13.2 % (12.0-15.0); WHITE BLOOD COUNT 15.1 x10^3/uL (4.8-10.8)
== END 2020-11-10 23:59 | disposition home or self-care (01) ==
LOC: LAB.N 08:00
PROVIDERS: ATTEND Family Medicine
DX: R06.09 Other forms of dyspnea (principal)
CPT/HCPCS: 36415; 80048; 83880; 85027

== ENCOUNTER 2020-11-10 15:54 | Outpatient (CLI) | payer MEDICARE, MEDICAID ==
--- NOTE | 2020-11-10 17:34 | XRAY Report ---
PROCEDURE: Chest 2 View X-Ray INDICATIONS: DYSPNEA ON EXERTION TECHNIQUE: 2 view(s) of the chest. COMPARISON: Prior chest radiograph dated 10/28/2020. FINDINGS: Surgical changes and devices: Stable appearance of left chest AICD.. Lungs and pleura: No pleural effusions or pneumothorax. Lungs are clear. Mild interstitial densitie s have slightly decreased from prior examination. Mediastinum: Mediastinal contours are normal. Heart size is enlarged. Bones and chest wall: No suspicious bony abnormalities. Soft tissues appear unremarkable. IMPRESSION: Mild CHF which appears slightly decreased from prior examination. Reviewed by: PATTI Camp on 11/10/2020 5:33 PM PDT Approved by: Brody Franks MD on 11/10/2020 5:33 PM PDT Station ID: [id number]
== END 2020-11-10 23:59 | disposition home or self-care (01) ==
LOC: DI.N 15:54
PROVIDERS: ATTEND Family Medicine
DX: I50.9 Heart failure, unspecified (principal); R06.09 Other forms of dyspnea
CPT/HCPCS: 36415; 80048; 83880; 85027

== ENCOUNTER 2020-12-01 14:37 | Outpatient (CLI) | payer MEDICARE, MEDICAID ==
[2020-12-01 18:43] LABS: ALBUMIN 3.7 g/dL (3.2-5.5); ALBUMIN/GLOBULIN RATIO 1.5 (1.0-2.2); BASOPHILS # (AUTO) 0.1 10^3/uL (0.0-0.1); BASOPHILS % (AUTO) 0.5 %; BILIRUBIN,TOTAL 0.7 mg/dL (0.2-1.0); CALCIUM 8.9 mg/dL (8.5-10.3); CREATININE 1.3 mg/dL (0.4-1.0); EOSINOPHILS % (AUTO) 0.3 %; HCT - HEMATOCRIT 43.7 % (37.0-47.0); HGB - HEMOGLOBIN 14.3 g/dL (12.0-16.0); LYMPHOCYTES # (AUTO) 2.5 10^3/uL (1.5-3.5); MEAN CORPUSCULAR HEMOGLOBIN 32.9 pg (27.0-31.0); MEAN CORPUSCULAR HGB CONC 32.7 g/dL (32.0-36.0); MEAN CORPUSCULAR VOLUME 100.5 fL (81.0-99.0); MEAN PLATELET VOLUME 10.4 fL (7.9-10.8); MONOCYTES # (AUTO) 0.9 10^3/uL (0.0-1.0); MONOCYTES % (AUTO) 6.7 %; NEUTROPHILS # (AUTO) 9.5 10^3/uL (1.5-6.6); NEUTROPHILS % (AUTO) 72.1 %; PLT - PLATELET COUNT 216 10^3/uL (130-450); POTASSIUM 3.5 mmol/L (3.5-5.0); RED BLOOD COUNT 4.35 10^6/uL (4.20-5.40); RED CELL DISTRIBUTION WIDTH 13.4 % (12.0-15.0); TOTAL PROTEIN 6.2 g/dL (6.7-8.2); WHITE BLOOD COUNT 13.1 x10^3/uL (4.8-10.8)
== END 2020-12-01 23:59 | disposition home or self-care (01) ==
LOC: LAB.WCP 14:37
PROVIDERS: ATTEND Nurse Practitioner
DX: J44.1 Chronic obstructive pulmonary disease with (acute) exacerbation (principal)
CPT/HCPCS: 36415; 80053; 85025

== ENCOUNTER 2020-12-02 08:41 | Outpatient (CLI) | payer MEDICARE, MEDICAID ==
--- NOTE | 2020-12-02 09:13 | XRAY Report ---
PROCEDURE: Chest 2 View X-Ray INDICATIONS: COPD, ACUTE EXACERBATION TECHNIQUE: 2 view(s) of the chest. COMPARISON: 11/10/2020, 10/28/2020 and 10/24/2020. FINDINGS: Surgical changes and devices: Left chest wall pacemaker leads are seen in the region of right atrium and right ventricle. Lungs and pleura: No pleural effusions or pneumothorax. Lungs are clear. Mediastinum: Mediastinal contours are normal. Heart size is enlarged. Bones and chest wall: Multiple old right anterior rib fractures are again seen unchanged from prior s tudies. Soft tissues appear unremarkable. IMPRESSION: No acute cardiopulmonary pathology. Reviewed by: Edgar Bueno MD on 12/02/2020 9:12 AM PDT Approved by: Edgar Bueno MD on 12/02/2020 9:12 AM PDT Station ID: [id number]
== END 2020-12-02 08:42 | disposition home or self-care (01) ==
LOC: DI.N 08:41
PROVIDERS: ATTEND Nurse Practitioner
DX: J44.1 Chronic obstructive pulmonary disease with (acute) exacerbation (principal)

== ENCOUNTER 2021-01-21 08:19 | Outpatient (CLI) | payer MEDICARE, MEDICAID ==
[2021-01-21 11:56] LABS: BASOPHILS # (AUTO) 0.1 10^3/uL (0.0-0.1); BASOPHILS % (AUTO) 0.6 %; EOSINOPHILS # (AUTO) 0.2 10^3/uL (0.0-0.7); EOSINOPHILS % (AUTO) 1.3 %; HCT - HEMATOCRIT 46.8 % (37.0-47.0); LYMPHOCYTES # (AUTO) 3.1 10^3/uL (1.5-3.5); LYMPHOCYTES % (AUTO) 25.3 %; MEAN CORPUSCULAR HEMOGLOBIN 32.6 pg (27.0-31.0); MEAN CORPUSCULAR HGB CONC 32.1 g/dL (32.0-36.0); MEAN CORPUSCULAR VOLUME 101.7 fL (81.0-99.0); MEAN PLATELET VOLUME 10.6 fL (7.9-10.8); MONOCYTES % (AUTO) 8.1 %; NEUTROPHILS # (AUTO) 7.8 10^3/uL (1.5-6.6); PLT - PLATELET COUNT 274 10^3/uL (130-450); RED CELL DISTRIBUTION WIDTH 13.4 % (12.0-15.0); WHITE BLOOD COUNT 12.2 x10^3/uL (4.8-10.8)
[2021-01-21 12:12] LABS: ALBUMIN 3.8 g/dL (3.2-5.5); ALBUMIN/GLOBULIN RATIO 1.3 (1.0-2.2); BILIRUBIN,TOTAL 0.7 mg/dL (0.2-1.0); CALCIUM 9.6 mg/dL (8.5-10.3); CREATININE 1.2 mg/dL (0.4-1.0); TOTAL PROTEIN 6.8 g/dL (6.7-8.2)
[2021-01-21 12:25] LABS: THYROID STIMULATING HORMONE 3.79 uIU/mL (0.34-5.60)
[2021-01-21 12:56] LABS: ESTIMATED AVERAGE GLUCOSE 169 mg/dL (70-100); HEMOGLOBIN A1c% 7.5 % (4.27-6.07)
== END 2021-01-21 08:20 | disposition home or self-care (01) ==
LOC: LAB.N 08:19
PROVIDERS: ATTEND Physician Assistant Medical
DX: E11.9 Type 2 diabetes mellitus without complications (principal); R55 Syncope and collapse
CPT/HCPCS: 36415; 80053; 83036; 84443; 85025

== ENCOUNTER 2021-01-21 08:33 | Outpatient (CLI) | payer MEDICARE, MEDICAID ==
--- NOTE | 2021-01-21 10:44 | XRAY Report ---
PROCEDURE: Chest 2 View X-Ray INDICATIONS: SYNCOPE TECHNIQUE: 2 view(s) of the chest. COMPARISON: 12/02/2020. FINDINGS: Surgical changes and devices: Left chest wall pacemaker leads are seen in the region of right atrium and right ventricle.. Lungs and pleura: No pleural effusions or pneumothorax. Calcified granuloma is again seen in lateral periphery of right upper lobe. No focal infiltrate. Mediastinum: Mediastinal contours are normal. Heart size is normal. Bones and chest wall: No suspicious bony abnormalities. Soft tissues appear unremarkable. IMPRESSION: No acute cardiopulmonary pathology. Reviewed by: Edgar Bueno MD on 01/21/2021 10:42 AM PDT Approved by: Edgar Bueno MD on 01/21/2021 10:42 AM PDT Station ID: [id number]
== END 2021-01-21 08:34 | disposition home or self-care (01) ==
LOC: DI.N 08:33
PROVIDERS: ATTEND Physician Assistant Medical
DX: R55 Syncope and collapse (principal); E11.9 Type 2 diabetes mellitus without complications
CPT/HCPCS: 36415; 80053; 83036; 84443; 85025

== ENCOUNTER 2021-02-04 09:22 | Inpatient (IN) | payer MEDICARE, MEDICAID ==
[2021-02-04] MEDS ORDERED: IPRATROPIUM/ALBUTEROL 3 ML NEB INH STA (09:38)
--- NOTE | 2021-02-04 09:49 | ED Physician Documentation ---
PD HPI DYSPNEA - Stated complaint Stated Complaint: SOA,CONFUSED - Chief complaint Chief Complaint: Resp - History obtained from History obtained from: Patient - Additional information Additional information: 55-year-old woman, former smoker with COPD and HFrEF, also history of cardiac arrest with AICD in place and A. fib with chronic anticoagulation has been sick for about 2 days with runny nose and shortness of breath. Minimal associated cough. No fevers. No significant chest pain. No increase in baseline pedal edema. She has been vaccinated for covid. Review of Systems Ten Systems: 10 systems reviewed and negative Constitutional: denies: Fever, Chills Nose: reports: Rhinorrhea / runny nose Throat: denies: Sore throat Cardiac: reports: Chest pain / pressure (minor). denies: Palpitations Respiratory: reports: Dyspnea. 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 , Other (cervical cancer at age 18) : None, Frequency HEENT: Chronic vision loss, Chronic sinusitis, Chronic hearing loss Psych: Depression, Anxiety, Claustrophobia Musculoskeletal: Osteoarthritis, Fatigue, Chronic back pain Derm: None - Past Surgical History Past Surgical History: Yes General: Cholecystectomy, EGD Ortho: Knee replacement /AUTOCAD OPERATOR: Hysterectomy (partial at age 18 for cervical CA), LEEP (Cervical surgery) Cardiovascular: Cardiac catheterization HEENT: Rhinoplasty - Present Medications Home Medications: Ambulatory Orders Medication Instructions Recorded Confirmed Furosemide 40 mg PO BID 09/07/20 02/04/21 Metoprolol Succinate [Toprol Xl] 100 mg PO BID 09/07/20 02/04/21 Apixaban [Eliquis] 5 mg PO BID 10/24/20 02/04/21 Albuterol 2.5 mg INH Q4H PRN #14 units 10/29/20 02/04/21 Albuterol Sulfate [Proair Hfa 2 puffs INH Q4H PRN #1 inh 10/29/20 02/04/21 Inhaler] Budesonide [Pulmicort] 0.5 mg INH BID #14 units 10/29/20 02/04/21 Formoterol Fumarate [Perforomist] 20 mcg IH BID #10 ml 10/29/20 02/04/21 Spironolactone [Aldactone] 25 mg PO DAILY #30 tablet 10/29/20 02/04/21 Amiodarone [Pacerone] 200 mg PO DAILY 02/04/21 02/04/21 - Allergies Allergies/Adverse Reactions: Allergies Allergy/AdvReac Type Severity Reaction Status Date / Time codeine [Codeine] Allergy Severe Swelling/Hi Verified 02/04/21 09:38 ves erythromycin base Allergy Severe Anaphylaxis Verified 02/04/21 09:38 [Erythromycin Base] gabapentin Allergy Severe Anaphylaxis Verified 02/04/21 09:38 Latex, Natural Rubber Allergy Severe Blisters Verified 02/04/21 09:38 pamabrom [From Midol] Allergy Severe Respiratory Verified 02/04/21 09:38 pyrilamine maleate * Allergy Severe Respiratory Verified 02/04/21 09:38 [From Midol] shellfish derived Allergy Severe Anaphylaxis Verified 02/04/21 09:38 venom-honey bee Allergy Severe Anaphylaxis Verified 02/04/21 09:38 [bee venom (honey bee)] chlorhexidine Allergy Intermediate Rash Verified 02/04/21 09:38 morphine Allergy Respiratory Verified 02/04/21 09:38 ondansetron Allergy Respiratory Verified 02/04/21 09:38 piperacillin [From Zosyn] AdvReac Rash Verified 02/04/21 09:38 tazobactam [From Zosyn] AdvReac Rash Verified 02/04/21 09:38 - Social History Does the pt smoke?: No Smoking Status: Former smoker Does the pt drink ETOH?: No Does the pt have substance abuse?: No - Immunizations Immunizations are current?: No Immunizations: Other immun not current - POLST Patient has POLST: No POLST Status: Full Code PD ED PE NORMAL - Vitals Vital signs reviewed: Yes - General General: Alert and oriented X 3, No acute distress - HEENT HEENT: PERRL, EOMI - Neck Neck: Supple, no meningeal sign, No bony TTP - Cardiac Cardiac: Other (Heart sounds difficult to hear due to loud respiratory noise.) - Respiratory Respiratory: Other (Moderately labored and rhonchorous throughout with mild expiratory wheezes) - Abdomen Abdomen: Soft, Non tender - Back Back: No CVA TTP, No spinal TTP - Derm Derm: Normal color, Warm and dry - Extremities Extremities: Other (Trace pitting pedal edema, symmetric, nontender calves) - Neuro Neuro: Alert and oriented X 3, Normal speech Eye Opening: Spontaneous Motor: Obeys Commands Verbal: Oriented GCS Score: 15 Results - Vitals Vitals: Vital Signs - 24 hr 02/04/21 02/04/21 02/04/21 09:30 09:45 09:57 Temperature 36.8 C Heart Rate 112 H 84 76 Respiratory 27 H 26 H 39 H Rate Blood Pressure 158/79 H 120/80 O2 Saturation 93 100 02/04/21 02/04/21 02/04/21 10:27 11:00 11:06 Temperature 36.8 C Heart Rate 65 72 72 Respiratory 20 28 H 24 Rate Blood Pressure 117/63 107/69 O2 Saturation 94 95 02/04/21 11:30 Temperature 36.9 C Heart Rate 65 Respiratory 24 Rate Blood Pressure 107/69 O2 Saturation 97 Oxygen O2 Source [With Activity] Room air O2 Source Room air - EKG (time done) 0944 Rate: Rate (enter#) (65) Rhythm: NSR Intervals: LBBB Compare to prior EKG: Changed from prior EKG (2Compared with October 24, 2020, she has progressed from a right bundle left bundle branch block.) Computer interpretation: Agree with computer (except don't think STEMI) - Labs Labs: Laboratory Tests 02/04/21 02/04/21 02/04/21 09:12 09:52 09:52 WBC 8.3 RBC 4.62 Hgb 15.4 Hct 46.3 MCV 100.2 H MCH 33.3 H MCHC 33.3 RDW 13.0 Plt Count 218 MPV 10.1 Neut # (Auto) 5.7 Lymph # (Auto) 1.8 Coos # (Auto) 0.7 Eos # (Auto) 0.1 Baso # (Auto) 0.1 Absolute Nucleated RBC 0.00 Nucleated RBC % 0.0 VBG pH VBG pCO2 VBG pO2 VBG HCO3 VBG Total CO2 VBG O2 Saturation VBG Base Excess Sodium 144 Potassium 3.5 Chloride 103 Carbon Dioxide 30 Anion Gap 11.0 BUN 14 Creatinine 0.9 Estimated GFR (MDRD) 65 L Glucose 184 H Calcium 9.9 Magnesium 2.1 Troponin I High Sens B-Natriuretic Peptide Nasal Adenovirus (PCR) NOT DETECTED Nasal B. parapertussis DNA (PCR) NOT DETECTED Nasal Coronavir 229E PCR NOT DETECTED Nasal Coronavir HKU1 PCR NOT DETECTED Nasal Coronavir NL63 PCR NOT DETECTED Nasal Coronavir OC43 PCR NOT DETECTED Nasal Enterovir/Rhinovir PCR NOT DETECTED Nasal Influenza B PCR NOT DETECTED Nasal Influenza A PCR NOT DETECTED Nasal Parainfluen 1 PCR NOT DETECTED Nasal Parainfluen 2 PCR NOT DETECTED Nasal Parainfluen 3 PCR NOT DETECTED Nasal Parainfluen 4 PCR NOT DETECTED Nasal RSV (PCR) NOT DETECTED Nasal B.pertussis DNA PCR NOT DETECTED Nasal C.pneumoniae (PCR) NOT DETECTED Azar Human Metapneumo PCR NOT DETECTED Nasal M.pneumoniae (PCR) NOT DETECTED Nasal SARS-CoV-2 (PCR) DETECTED A 02/04/21 02/04/21 02/04/21 09:52 09:52 09:52 WBC RBC Hgb Hct MCV MCH MCHC RDW Plt Count MPV Neut # (Auto) Lymph # (Auto) Coos # (Auto) Eos # (Auto) Baso # (Auto) Absolute Nucleated RBC Nucleated RBC % VBG pH 7.344 VBG pCO2 57.5 H VBG pO2 29.5 VBG HCO3 30.6 H VBG Total CO2 32.4 H VBG O2 Saturation 62.2 VBG Base Excess 3.1 H Sodium Potassium Chloride Carbon Dioxide Anion Gap BUN Creatinine Estimated GFR (MDRD) Glucose Calcium Magnesium Troponin I High Sens 9.3 B-Natriuretic Peptide 131 H Nasal Adenovirus (PCR) Nasal B. parapertussis DNA (PCR) Nasal Coronavir 229E PCR Nasal Coronavir HKU1 PCR Nasal Coronavir NL63 PCR Nasal Coronavir OC43 PCR Nasal Enterovir/Rhinovir PCR Nasal Influenza B PCR Nasal Influenza A PCR Nasal Parainfluen 1 PCR Nasal Parainfluen 2 PCR Nasal Parainfluen 3 PCR Nasal Parainfluen 4 PCR Nasal RSV (PCR) Nasal B.pertussis DNA PCR Nasal C.pneumoniae (PCR) Azar Human Metapneumo PCR Nasal M.pneumoniae (PCR) Nasal SARS-CoV-2 (PCR) - Rads (name of study) 1v chest Radiology: EMP read contemporaneously (Vascular congestion, atalectasis) PD MEDICAL DECISION MAKING - ED course ED course: 55-year-old woman with history of COPD, HFrEF, A. fib on Eliquis presents with shortness of breath and pulmonary examination consistent with a primary pulmonary cause as opposed to CAD or active CHF. She had a cardiac arrest on September [id number]. Last echo in September of this year showing moderate LVH, AICD with leads in the right atrium and right ventricle. There is documentation on the chart of coronary disease from prior H&P's but I do not know the details. She has minor chest pain and her EKG has changed. Today's EKG shows a left bundle branch block, previously a right bundle branch block, her axis has changed. Negative Sgarbossa criteria though. As such we will check biomarkers as opposed to calling a STEMI. Especially in light of the clinical syndrome being more consistent with a COPD exacerbation. Found subsequently to be positive for Covid which is probably caused exacerbation of her COPD with tachypnea and presented subsequently to Dr. Cedillo for admission. Departure - Departure Disposition: ED Place in Observation Clinical Impression: Morbid obesity with BMI of 40.0-44.9, adult, HFrEF (heart failure with reduced ejection fraction), COVID-19, Acute exacerbation of COPD with asthma Dyspnea Qualifiers: Dyspnea type: shortness of breath Qualified Code(s): R06.02 - Shortness of breath Condition: Serious Discharge Date/Time: 02/04/21 12:33
[2021-02-04 10:03] LABS: VBG BASE EXCESS 3.1 mmol/L (-2 - +2); VBG HCO3 30.6 mmol/L (23-28); VBG OXYGEN SATURATION 62.2 % (60-80); VBG PCO2 57.5 mmHg (41-51); VBG PH 7.344 (7.31-7.41); VBG PO2 29.5 mmHg (25-47); VBG TOTAL CO2 32.4 mmol/L (24-29)
[2021-02-04 10:04] LABS: BASOPHILS # (AUTO) 0.1 10^3/uL (0.0-0.1); BASOPHILS % (AUTO) 0.6 %; EOSINOPHILS # (AUTO) 0.1 10^3/uL (0.0-0.7); EOSINOPHILS % (AUTO) 1.7 %; HCT - HEMATOCRIT 46.3 % (37.0-47.0); HGB - HEMOGLOBIN 15.4 g/dL (12.0-16.0); LYMPHOCYTES # (AUTO) 1.8 10^3/uL (1.5-3.5); LYMPHOCYTES % (AUTO) 21.1 %; MEAN CORPUSCULAR HEMOGLOBIN 33.3 pg (27.0-31.0); MEAN CORPUSCULAR HGB CONC 33.3 g/dL (32.0-36.0); MEAN CORPUSCULAR VOLUME 100.2 fL (81.0-99.0); MEAN PLATELET VOLUME 10.1 fL (7.9-10.8); MONOCYTES # (AUTO) 0.7 10^3/uL (0.0-1.0); MONOCYTES % (AUTO) 7.8 %; NEUTROPHILS # (AUTO) 5.7 10^3/uL (1.5-6.6); NEUTROPHILS % (AUTO) 68.4 %; PLT - PLATELET COUNT 218 10^3/uL (130-450); RED BLOOD COUNT 4.62 10^6/uL (4.20-5.40); WHITE BLOOD COUNT 8.3 x10^3/uL (4.8-10.8)
--- NOTE | 2021-02-04 10:08 | XRAY Report ---
PROCEDURE: Chest 1 View X-Ray INDICATIONS: dyspnea TECHNIQUE: One view of the chest was acquired. COMPARISON: 01/21/2021 FINDINGS: Surgical changes and devices: Left chest wall pacer is in good position. Lungs and pleura: No pleural effusions or pneumothorax. Mild bibasilar atelectasis appears unchan ged compared to prior studies. There is pulmonary vascular congestion. Mediastinum: Mediastinal contours appear normal. Heart size is normal. Bones and chest wall: No suspicious bony lesions. Overlying soft tissues appear unremarkable. IMPRESSION: 1. Pulmonary vascular congestion or early CHF. 2. Bibasilar atelectasis. Reviewed by: Moi Gray on 02/04/2021 10:07 AM PDT Approved by: Moi Gray on 02/04/2021 10:07 AM PDT Station ID: [id number]
[2021-02-04 10:12] LABS: CALCIUM 9.9 mg/dL (8.5-10.3); CREATININE 0.9 mg/dL (0.4-1.0); MAGNESIUM 2.1 mg/dL (1.7-2.8); POTASSIUM 3.5 mmol/L (3.5-5.0)
[2021-02-04] MEDS ORDERED: ALBUTEROL NEB 2.5 MG/3 ML INH STA (10:42)
[2021-02-04 11:04] LABS: B. PARAPERTUSSIS- RESP PCR PAN NOT DETECTED; B. PERTUSSIS- RESP PCR PANEL NOT DETECTED; C. PNEUMONIAE- RESP PCR PANEL NOT DETECTED; CORONAVIRUS 229E-RESP PCR NOT DETECTED; CORONAVIRUS HKU1-RESP PCR NOT DETECTED; CORONAVIRUS NL63-RESP PCR NOT DETECTED; CORONAVIRUS OC43-RESP PCR NOT DETECTED; HUMAN METAPNEUMOVIRUS NOT DETECTED; INFLUENZA A- RESP PCR PANEL NOT DETECTED; INFLUENZA B - RESP PCR PANEL NOT DETECTED; M. PNEUMONIAE- RESP PCR PANEL NOT DETECTED; PARAINFLUENZA VIRUS 1 NOT DETECTED; PARAINFLUENZA VIRUS 2 NOT DETECTED; PARAINFLUENZA VIRUS 3 NOT DETECTED; PARAINFLUENZA VIRUS 4 NOT DETECTED; RHINOVIRUS/ENTEROVIRUS NOT DETECTED; RSV- RESP PCR PANEL NOT DETECTED
[2021-02-04 11:07] LABS: SARS-CoV-2 -RESP PCR PANEL DETECTED
[2021-02-04] MEDS ORDERED: DEXAMETHASONE 10 MG/ML VIAL IVP STA (11:12)
[2021-02-04] MEDS ORDERED: ONDANSETRON 4 MG/2 ML VIAL IVP PRN (11:33)
[2021-02-04] MEDS ORDERED: PROCHLORPERAZINE 10 MG/2 ML VIAL IVP PRN (11:37)
[2021-02-04] MEDS ORDERED: AMIODARONE 200 MG TABLET PO SCH (12:00)
--- NOTE | 2021-02-04 12:23 | PHARMACY PROGRESS NOTE ---
- Best Possible Medication History Admit Date and Time: 02/04/21 1133 Processed by: Nursing Medication History completed: Yes Patient Interview: Completed (MED REC COMPLETED BY NURSING) As the person ultimately responsible for medication therapy, providers are able to order a medication from an existing home medication list in [facility] via the "Reconcile Routine" prior to Confirmation of that medication by product support engineer. Such practice is discouraged except when the physician, in their clinical judgment, deems that a medical need exists for a medication without regard to previous use.
--- NOTE | 2021-02-04 12:40 | HISTORY & PHYSICAL EXAMINATION ---
Chief Complaint - Chief Complaint Chief Complaint: SOB, wheezy, and mild chest pain History of Present Illness - Admitted From Admitted From:: medical floor - History Obtained From Records Reviewed: [facility] History obtained from: pt Exam Limitations: no - History of Present Illness HPI Comment/Other: This is a 55-years old female with a past med medical history significant for hypertension, hyperlipidemia, coronary artery disease, congenital heart failure, history of DC, atrial fibrillation, heart murmur, arrhythmia, asthma, COPD, emphysema, previous pneumonia, shortness of breathing, headache, GERD, urinary frequency, chronic vision loss, chronic sinusitis, chronic hearing loss who present ER complain of Shortness of breathing, wheezy, mild chest pain. Patient reported she feel short of breathing, whole body ache, no energy, wheezing, cough, also she complained of mild chest pain but she denies fever, chill. She reported she have COPD with oxygen in the home as needed, she reported she is a previous cigarette smoker. Patient also report she had a pacemaker with ICD. She also was recently tested COVID-19 positive. She also reported she was vaccinated for COVID-19. VBG testing in the ER show PCO2 58, pH 7.34. Troponin test 1.3 is negative for acute DC. BNP 131.EKG show left bundle branch block which is di fferent from her previous RBBB. In the ER, patient is afebrile, with tachycardia and tachypnea on 93% to 100% oxygen saturation on room air. Chest x-ray show pulmonary vascular congestion or early CHF, bibasilar atelectasis. Discussed the care goal with the patient, patient requests full code. 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 , Other (cervical cancer at age 18) : reports: None, Frequency HEENT: reports: Chronic vision loss, Chronic sinusitis, Chronic hearing loss Psych: reports: Depression, Anxiety, Claustrophobia Musculoskeletal: reports: Osteoarthritis, Fatigue, Chronic back pain Derm: reports: None MRSA Hx?: No - Past Surgical History General: reports: Cholecystectomy, EGD Ortho: reports: Knee replacement /INSTRUMENT 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 She denies a family history of heart disease or diabetes but review of prior records reveal that both her parents had coronary artery disease and diabetes. Living Situation: With family Social History Notes: She lives at home with her ex-, federico. She has other by members living there as well. She currently does not work. She denies alcohol use and reports that she quit smoking about a year ago. She started at the age of 7 and smoked up to 1.5 packs a day.She reported she is alcoholism before but she quit her alcohol now. - Substance History Use: Uses substance without health or social issues: NONE - POLST Patient has POLST: No POLST Status: Full Code Meds/Allgy - Home Medications Home Medications: Ambulatory Orders Medication Instructions Recorded Confirmed Furosemide 40 mg PO BID 09/07/20 02/04/21 Metoprolol Succinate [Toprol Xl] 100 mg PO BID 09/07/20 02/04/21 Apixaban [Eliquis] 5 mg PO BID 10/24/20 02/04/21 Albuterol 2.5 mg INH Q4H PRN #14 units 10/29/20 02/04/21 Albuterol Sulfate [Proair Hfa 2 puffs INH Q4H PRN #1 inh 10/29/20 02/04/21 Inhaler] Budesonide [Pulmicort] 0.5 mg INH BID #14 units 10/29/20 02/04/21 Formoterol Fumarate [Perforomist] 20 mcg IH BID #10 ml 10/29/20 02/04/21 Spironolactone [Aldactone] 25 mg PO DAILY #30 tablet 10/29/20 02/04/21 Amiodarone [Pacerone] 200 mg PO DAILY 02/04/21 02/04/21 - Allergies Allergies/Adverse Reactions: Allergies Allergy/AdvReac Type Severity Reaction Status Date / Time codeine [Codeine] Allergy Severe Swelling/Hi Verified 02/04/21 09:38 ves erythromycin base Allergy Severe Anaphylaxis Verified 02/04/21 09:38 [Erythromycin Base] gabapentin Allergy Severe Anaphylaxis Verified 02/04/21 09:38 Latex, Natural Rubber Allergy Severe Blisters Verified 02/04/21 09:38 pamabrom [From Midol] Allergy Severe Respiratory Verified 02/04/21 09:38 pyrilamine maleate * Allergy Severe Respiratory Verified 02/04/21 09:38 [From Midol] shellfish derived Allergy Severe Anaphylaxis Verified 02/04/21 09:38 venom-honey bee Allergy Severe Anaphylaxis Verified 02/04/21 09:38 [bee venom (honey bee)] chlorhexidine Allergy Intermediate Rash Verified 02/04/21 09:38 morphine Allergy Respiratory Verified 02/04/21 09:38 ondansetron Allergy Respiratory Verified 02/04/21 09:38 piperacillin [From Zosyn] AdvReac Rash Verified 02/04/21 09:38 tazobactam [From Zosyn] AdvReac Rash Verified 02/04/21 09:38 Review of Systems - Constitutional Constitutional: reports: Fatigue, Malaise, Weakness. denies: Fever, Chills - Eyes Eyes: denies: Pain, Field loss, Vision loss - Ears, Nose & Throat Ears, Nose & Throat: denies: Ear pain, Nosebleeds - Cardiovascular Cariovascular: reports: Chest pain, Exertional dyspnea, Decr. exercise tolerance. denies: Irregular heart rate, Palpitations, Edema, Lightheadedness, Syncope - Respiratory Respiratory: reports: Cough, Wheezing, SOB with exertion. denies: Sputum production, Snoring, SOB at rest - Gastrointestinal Gastrointestinal: reports: Abdominal pain. denies: Diarrhea, Nausea, Vomiting - Genitourinary Genitourinary: denies: Dysuria - Musculoskeletal Musculoskeletal: reports: Muscle aches. denies: Muscle pain - Integumentary Integumentary: denies: Rash - Neurological Neurological: reports: General weakness. denies: Focal weakness, Headache, Dizziness, Numbness, Memory problems, Abnormal gait, Seizures, Incoordination, Slurred speech - Psychiatric Psychiatric: denies: Depression - Endocrine Endocrine: denies: Polyuria Exam - Vital Signs Vital Signs: Vital Signs x48h Temp Pulse Resp BP Pulse Ox 02/04/21 12:00 36.9 C 67 17 128/65 97 02/04/21 11:30 36.9 C 65 24 107/69 97 02/04/21 11:06 72 24 02/04/21 11:00 36.8 C 72 28 H 107/69 95 02/04/21 10:27 65 20 117/63 94 02/04/21 09:57 76 39 H 120/80 100 02/04/21 09:45 84 26 H 02/04/21 09:30 36.8 C 112 H 27 H 158/79 H 93 - Physical Exam General Appearance: positive: No acute distress, Alert. negative: Lethargic Eyes Bilateral: positive: Normal inspection, No lid inflammation ENT: positive: ENT inspection nml, No signs of dehydration. negative: Purulent nasal drainage, Dry mucous membranes Neck: positive: Nml inspection, Trachea midline. negative: Thyromegaly, Tracheal deviation Respiratory: positive: Chest non-tender, No respiratory distress, Wheezes Cardiovascular: positive: Regular rate & rhythm, Systolic murmur. negative: Tachycardia, Bradycardia Peripheral Pulses: positive: 2+ Abdomen: positive: Non-tender, Nml bowel sounds, No distention. negative: Tenderness Back: positive: Nml inspection Skin: positive: Color nml, Warm, Dry. negative: Cyanosis Extremities: positive: Non-tender, Full ROM, Nml appearance. negative: Calf tenderness Neurologic/Psychiatric: positive: Oriented x3, Motor nml, Sensation nml, Mood/affect nml. negative: Weakness, Sensory loss, Facial droop, Slurred/abnml speech, Depressed mood/affect Conclusion/Plan - Problem List (1) Acute exacerbation of COPD with asthma Conclusion/Plan: Patient present bilaterally significant respiratory wheezy. Patient also present shortness of breathing special on exertion. Patient also had significantly tachycardia and tachypnea in the initial admission. But the patient also has 93- 100 oxygen saturation on Room air at admission. Patient has a history of asthma and COPD and long-term cigarette smoke for 49 years. Patient also take oxygen in the home as needed. We will treated patient for COPD with asthma exacerbation, we will start with intravenous Solu-Medrol, continue Albuterol inhaler. Pulmicort inhaler. Unfortunately patient also is COVID-19 positive. We cannot use nebulization treatment for patient. (2) COVID-19 Conclusion/Plan: Patient is COVID-19 positive in the test. patient also report whole body ache, no energy. Fortunately patient had a vaccination for the COVID-19. Now she is not required oxygen. Pharmacy report because the patient has no oxygen required, we will not restart COVID-19 treatment such as Remdesivir. We will continue supportive to patient, supplemental oxygen as needed (3) Chest pain Conclusion/Plan: Patient reported she had mild chest pain, initial troponin is negative but her EKG show left bundle branch block. Patient already take Eliquis in the home. We will resume Eliquis, we will resume patient home medication metoprolol, We will continue finish serial troponin test, school lunch monitor patient, Laboratory and vital signs monitor patient. Nitroglycerin as needed for patient. We will have echo study for patient. (4) Hx of coronary artery disease Conclusion/Plan: Patient has a history of CAD, patient is hemodynamic stable now. Will resume patient home medication Eliquis, metoprolol, Lasix, Continue telemetry, laboratory, vital signs monitor patient (5) Hx of cardiac arrhythmia Conclusion/Plan: Patient has a history of cardiac arrhythmia, patient had a pacemaker with ICD. We will resume patient home medication Amiodarone, Continue phototypesetting equipment monitor patient. (6) HTN (hypertension) Conclusion/Plan: Patient is a hx of hypertension, will resume patient home blood pressure medicine, continue vital signs monitor - Lab Results Fish Bones: 02/04/21 09:52 02/04/21 09:52 Core Measures - Anticipated LOS I expect patient to be DC'd or transferred within 96 hours.: Yes - DVT/VTE - Prophylaxis VTE/DVT Device ordered at admit?: Yes VTE/DVT Prophylaxis med ordered at admit?: Yes
[2021-02-04] MEDS: methylPREDNISolone SUCCINATE 40 MG/ML VIAL IVP SCH ×2 (14:02→21:22)
[2021-02-04] MEDS ORDERED: NITROGLYCERIN SL 0.4 MG TABLET SL PRN (14:25)
[2021-02-04] MEDS: guaiFENesin 600 MG TABLET PO SCH ×2 (14:28→21:16)
[2021-02-04] MEDS ORDERED: IPRATROPIUM 0.2 MG/ML NEB INH SCH (15:00)
[2021-02-04] MEDS: ALBUTEROL 1 PUFF INH PRN ×2 (15:13→19:41)
[2021-02-04] MEDS: FLUTICASONE/SALMETEROL 250/50 INHALER INH SCH ×2 (18:20→19:42)
[2021-02-04] MEDS: SODIUM CHLORIDE FLUSH 0.9% 10 ML SYRINGE IVP SCH ×2 (18:21→20:02)
[2021-02-04] MEDS: FUROSEMIDE 40 MG TABLET PO SCH (19:58)
[2021-02-04] MEDS ORDERED: BUDESONIDE 0.5 MG/2 ML NEB INH SCH (21:00)
[2021-02-04] MEDS ORDERED: FORMOTEROL FUMARATE NEB 20 MCG/2 ML INH SCH (21:00)
[2021-02-04] MEDS: APIXABAN 5 MG TABLET PO SCH (21:17)
[2021-02-04] MEDS: METOPROLOL SUCCINATE 50 MG TABLET PO SCH (21:21)
[2021-02-04] MEDS: SODIUM CHLORIDE FLUSH 0.9% 10 ML SYRINGE IVP PRN (21:22)
[2021-02-04] MEDS: ACETAMINOPHEN 325 MG TABLET PO PRN (21:24)
[2021-02-05 05:46] LABS: BASOPHILS % (AUTO) 0.1 %; HCT - HEMATOCRIT 44.7 % (37.0-47.0); HGB - HEMOGLOBIN 14.6 g/dL (12.0-16.0); LYMPHOCYTES # (AUTO) 0.7 10^3/uL (1.5-3.5); LYMPHOCYTES % (AUTO) 4.6 %; MEAN CORPUSCULAR HEMOGLOBIN 32.7 pg (27.0-31.0); MEAN CORPUSCULAR HGB CONC 32.7 g/dL (32.0-36.0); MEAN PLATELET VOLUME 11.1 fL (7.9-10.8); MONOCYTES # (AUTO) 0.2 10^3/uL (0.0-1.0); MONOCYTES % (AUTO) 1.4 %; NEUTROPHILS # (AUTO) 14.2 10^3/uL (1.5-6.6); NEUTROPHILS % (AUTO) 93.4 %; PLT - PLATELET COUNT 226 10^3/uL (130-450); RED BLOOD COUNT 4.47 10^6/uL (4.20-5.40); RED CELL DISTRIBUTION WIDTH 12.9 % (12.0-15.0); WHITE BLOOD COUNT 15.2 x10^3/uL (4.8-10.8)
[2021-02-05 05:54] LABS: CALCIUM 9.8 mg/dL (8.5-10.3); CREATININE 1.1 mg/dL (0.4-1.0); POTASSIUM 3.7 mmol/L (3.5-5.0)
[2021-02-05] MEDS: SODIUM CHLORIDE FLUSH 0.9% 10 ML SYRINGE IVP PRN (06:16)
[2021-02-05] MEDS: methylPREDNISolone SUCCINATE 40 MG/ML VIAL IVP SCH ×3 (06:16→21:39)
[2021-02-05] MEDS: FUROSEMIDE 40 MG TABLET PO SCH (06:19)
[2021-02-05] MEDS: METOPROLOL SUCCINATE 50 MG TABLET PO SCH ×2 (08:19→21:40)
[2021-02-05] MEDS: guaiFENesin 600 MG TABLET PO SCH ×2 (08:19→21:40)
[2021-02-05] MEDS: APIXABAN 5 MG TABLET PO SCH ×2 (08:19→21:40)
[2021-02-05] MEDS: SPIRONOLACTONE 25 MG TABLET PO SCH (08:19)
[2021-02-05] MEDS: AMIODARONE 200 MG TABLET PO SCH (08:20)
[2021-02-05] MEDS: SODIUM CHLORIDE FLUSH 0.9% 10 ML SYRINGE IVP SCH ×2 (08:21→17:36)
[2021-02-05] MEDS: FLUTICASONE/SALMETEROL 250/50 INHALER INH SCH ×2 (08:42→20:32)
[2021-02-05] MEDS: ALBUTEROL 1 PUFF INH PRN ×2 (08:42→20:33)
--- NOTE | 2021-02-05 09:44 | XRAY Report ---
PROCEDURE: Chest 1 View X-Ray INDICATIONS: sob TECHNIQUE: One view of the chest was acquired. COMPARISON: CXR 02/04/2021, 01/21/2021. FINDINGS: Surgical changes and devices: Left pacemaker. Lungs and pleura: No significant pleural effusions or pneumothorax. Subtle perihilar opacity bilater ally. Mediastinum: Mediastinal contours appear unchanged. Heart size is prominent. Bones and chest wall: No suspicious bony lesions. Overlying soft tissues appear unremarkable. IMPRESSION: Suspect mild fluid overload/CHF. Reviewed by: Meet Caban MD on 02/05/2021 9:42 AM PDT Approved by: Meet Caban MD on 02/05/2021 9:42 AM PDT Station ID: [id number]
[2021-02-05] MEDS ORDERED: REMDESIVIR 100MG VIAL 200 MG in SODIUM CHLORIDE 0.9% 250 ML IV SCH (10:00)
[2021-02-05] MEDS ORDERED: INSULIN ASPART 300 UNIT/3 ML PEN SUBQ ONE ×3 (10:15→16:43)
--- NOTE | 2021-02-05 10:46 | PROVIDER PROGRESS NOTE ---
Assessment/Plan - Problem List (1) Respiratory failure with hypoxia Assessment/Plan: 02/05Patient present difficult breathing special on exertion, and present more wheezing and SOB. consult with RT, now pt need 40 HHFNC with 80% Fio2 then pt had 90% O2 sat. after treatment, pt is feeling comfortable at bed, she is playing cell phone now. ABGs is pending. we increased steroid dosage and start to treat pt with Covid 19, Continue supplemental oxygen (2) Acute exacerbation of COPD with asthma Conclusion/Plan: , patient show more wheezy, more difficulty breathing, Special on exertion. We will increase steroid dosage, Continue breathing treatment, Patient is also COVID-19 positive, Continue supplemental oxygen as needed. Patient present bilaterally significant respiratory wheezy. Patient also present shortness of breathing special on exertion. Patient also had significantly tachycardia and tachypnea in the initial admission. But the patient also has 93- 100 oxygen saturation on Room air at admission. Patient has a history of asthma and COPD and long-term cigarette smoke for 49 years. Patient also take oxygen in the home as needed. We will treated patient for COPD with asthma exacerbation, we will start with intravenous Solu-Medrol, continue Albuterol inhaler. Pulmicort inhaler. Unfortunately patient also is COVID-19 positive. We cannot use nebulization treatment for patient. (3) COVID-19 pneumonia Conclusion/Plan: , patient is a COVID-19 positive, today patient needed high flow oxygen, so called pharmacy. we will start with COVID-19 treatment we will add Remdisvir for patient, continue Eliquis, Solu-Medrol, Continue supplemental oxygen as needed Patient is COVID-19 positive in the test. patient also report whole body ache, no energy. Fortunately patient had a vaccination for the COVID-19. Now she is not required oxygen. Pharmacy report because the patient has no oxygen required, we will not restart COVID-19 treatment such as Remdesivir. We will continue supportive to patient, supplemental oxygen as needed (4) Chest pain Conclusion/Plan: 924, patient has no more complaint of chest pain, 3 time troponin test is negative, pt may have out-pt stress by her PCP. Patient reported she had mild chest pain, initial troponin is negative but her EKG show left bundle branch block. Patient already take Eliquis in the home. 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 Nitroglycerin as needed for patient. We will have echo study for patient. (5) Hx of coronary artery disease Conclusion/Plan: Patient has a history of CAD, patient is hemodynamic stable now. Will resume patient home medication Eliquis, metoprolol, Lasix, Continue telemetry, laboratory, vital signs monitor patient (6) Hx of cardiac arrhythmia Conclusion/Plan: Patient has a history of cardiac arrhythmia, patient had a pacemaker with ICD. We will resume patient home medication Amiodarone, Continue silver buffer patient. (7) HTN (hypertension) Conclusion/Plan: Patient is a hx of hypertension, will resume patient home blood pressure medicine, continue vital signs monitor (8)Systolic heart failure, NYHA, class III 02/05 new ECHO study show pt has 35-40% EF, CXR reveals Suspect mild fluid overloaded, Patient also present acute hypoxia With respiratory distress Special on exertion. we will continue Metoprolol, IV Diuretics, spironolactone, eliquis. Continue telemetry and vital signs monitor. (9)Hyperglycemia pt has close 400 glucose level, pt is on steroid. pt denies her hx of diabetes. We will check patient's A1c, we will start with sliding scale, add additional Novolog, also start with Lantus as well. - Current Meds Current Meds: Current Medications Generic Name Dose Route Start Last Admin Trade Name Freq PRN Reason Stop Dose Admin Acetaminophen 650 mg 02/04/21 11:33 02/04/21 21:24 Acetaminophen 325 Mg Tablet PO 650 mg Q4HR PRN Administration Pain 1 to 4 Albuterol 2 puffs 02/04/21 12:19 02/05/21 08:42 Albuterol 1 Puff INH 2 puffs Q4H PRN Administration Wheezing Amiodarone HCl 100 mg 02/05/21 09:00 02/05/21 08:20 Amiodarone 200 Mg Tablet PO 100 mg DAILY ROMAN Administration Apixaban 5 mg 02/04/21 21:00 02/05/21 08:19 Apixaban 5 Mg Tablet PO 5 mg BID ROMAN Administration Guaifenesin 600 mg 02/04/21 14:00 02/05/21 08:19 Guaifenesin 600 Mg Tablet PO 600 mg BID ROMAN Administration Metoprolol Succinate 100 mg 02/04/21 21:00 02/05/21 08:19 Metoprolol Succinate 50 Mg Tablet PO 100 mg BID ROMAN Administration Fluticasone/Salmeterol 1 puffs 02/05/21 09:00 02/05/21 08:42 Fluticasone/Salmeterol 250/50 Inhaler INH 1 puffs BID ROMAN Administration Sodium Chloride 10 ml 02/04/21 11:33 02/05/21 06:16 Sodium Chloride Flush 0.9% 10 Ml Syringe IVP 10 ml PRN PRN Administration NEEDED PER PROVIDER ORDERS Sodium Chloride 10 ml 02/04/21 17:00 02/05/21 08:21 Sodium Chloride Flush 0.9% 10 Ml Syringe IVP 10 ml 0100,0900,1700 ROMAN Administration Spironolactone 25 mg 02/05/21 09:00 02/05/21 08:19 Spironolactone 25 Mg Tablet PO 25 mg DAILY ROMAN Administration - Lab Result Fish Bone Diagrams: 02/05/21 04:36 02/05/21 04:36 - Additional Planning My Orders: My Active Orders 02/04/21 11:33 Activity Orders [RC] Q2HR IO [RC] IOSHIFT Initiate Bowel Care Protocol [RC] .protocol Initiate Bronchodialator Aleksey [RC] .PROTOCOL Initiate Line Care Protocol [RC] QSHIFT Initiate Personal Care Protoco [RC] .protocol Telemetry- [RC] Q4HR Vital Signs [RC] Q4HR Acetaminophen [Tylenol] 650 mg PO Q4HR PRN Ondansetron Inj [Zofran Inj] 4 mg IVP Q6HR PRN Sodium Chloride Flush 0.9% [Normal Saline Flush 0.9%] 10 ml IVP PRN PRN Code Status [OTHERS] Routine Condition of Patient [OTHERS] Routine DVT Prophylaxis [OTHERS] Routine 02/04/21 11:36 SCDs [RC] QSHIFT 02/04/21 11:37 Prochlorperazine Inj [Compazine Inj] 10 mg IVP Q6HR PRN 02/04/21 12:19 Mdi: Albuterol 2 puffs INH Q4H PRN 02/04/21 12:51 Echo Transthoracic Complete [ECHO] Routine 02/04/21 13:36 Nebulizer/MDI Tx. [RC] .Q4 PRN Resp Teach Nebulizer/MDI [RC] .ONCE 02/04/21 14:00 guaiFENesin [Mucinex] 600 mg PO BID 02/04/21 14:25 Nitroglycerin [Nitrostat] 0.4 mg SL Q5MIN PRN 02/04/21 Dinner Cardiac Diet [DIET] 02/04/21 17:00 Sodium Chloride Flush 0.9% [Normal Saline Flush 0.9%] 10 ml IVP 0100,0900,1700 02/04/21 20:10 Oxygen Therapy [RC] .PRN 02/04/21 21:00 Apixaban [Eliquis] 5 mg PO BID Metoprolol Succinate [Toprol Xl] 100 mg PO BID 02/05/21 04:36 HEMOGLOBIN A1c% [CHEM] Urgent 02/05/21 07:49 Daily Weight [RC] 0600 Fluid Restriction [RC] ONCE 02/05/21 08:50 RT - Obtain Arterial Specimen [RC] .ONCE ABG - ARTERIAL BLOOD GAS [BG] Stat 02/05/21 09:00 Amiodarone [Pacerone] 100 mg PO DAILY Fluticasone/Salmeterol 250/50 [Advair 250 Mcg/50 Mcg] 1 puffs INH BID Spironolactone [Aldactone] 25 mg PO DAILY 02/05/21 10:00 Remdesivir 100Mg Vial [Veklury] 200 mg Sodium Chloride 0.9% [Normal Saline 0.9%] 250 ml IV ONCE 02/05/21 10:15 Blood Glucose Checks - Eating [RC] 0800,1200,1700,2100 Insulin Aspart [NovoLOG] 10 unit SUBQ ONCE ONE 02/05/21 10:27 Blood Glucose Checks - Eating [RC] 0800,1200,1700,2100 Initiate Hypoglycemia Protocol [RC] .protocol 02/05/21 12:00 Insulin Aspart [NovoLOG] 2 - 10 unit SUBQ 0800,1200,1700,2100 02/05/21 14:00 FUROSEMIDE INJ 40mg VIAL [LASIX INJ 40 mg VIAL] 40 mg IVP BIDDIURETIC methylPREDNISolone SUCCINATE [SOLU-Medrol (40MG VIAL)] 60 mg IVP TID 02/06/21 05:00 BMP - BASIC METABOLIC PANEL [CHEM] DAILYLAB BNP - B-NATRIURETIC PEPTIDE [IAI] DAILYLAB CBC - COMP BLD CT W/AUTO DIFF [HEME] DAILYLAB 02/06/21 09:00 Remdesivir 100Mg Vial [Veklury] 100 mg Sodium Chloride 0.9% 100Ml [Normal Saline 0.9% 100Ml] 100 ml IV DAILY 02/07/21 05:00 BMP - BASIC METABOLIC PANEL [CHEM] DAILYLAB BNP - B-NATRIURETIC PEPTIDE [IAI] DAILYLAB CBC - COMP BLD CT W/AUTO DIFF [HEME] DAILYLAB 02/08/21 05:00 BMP - BASIC METABOLIC PANEL [CHEM] DAILYLAB BNP - B-NATRIURETIC PEPTIDE [IAI] DAILYLAB CBC - COMP BLD CT W/AUTO DIFF [HEME] DAILYLAB 02/09/21 05:00 BMP - BASIC METABOLIC PANEL [CHEM] DAILYLAB BNP - B-NATRIURETIC PEPTIDE [IAI] DAILYLAB CBC - COMP BLD CT W/AUTO DIFF [HEME] DAILYLAB Subjective - Subjective Patient Reports: Shortness of Breath Objective Vital Signs: Vital Signs - 24 hr 02/04/21 02/04/21 02/04/21 11:00 11:06 11:30 Temperature 36.8 C 36.9 C Heart Rate 72 72 65 Heart Rate [ Brachial] Heart Rate [ Radial] Respiratory 28 H 24 24 Rate Blood Pressure 107/69 107/69 Blood Pressure [Left Brachial artery] Blood Pressure [Right Brachial artery] O2 Saturation 95 97 02/04/21 02/04/21 02/04/21 12:00 12:50 15:20 Temperature 36.9 C 36.6 C Heart Rate 67 70 Heart Rate [ 68 Brachial] Heart Rate [ Radial] Respiratory 17 24 24 Rate Blood Pressure 128/65 Blood Pressure [Left Brachial artery] Blood Pressure 98/59 L [Right Brachial artery] O2 Saturation 97 96 02/04/21 02/04/21 02/04/21 15:42 15:56 18:12 Temperature 36.3 C L 36.3 C L 36.3 C L Heart Rate 64 Heart Rate [ 60 71 Brachial] Heart Rate [ Radial] Respiratory 22 22 30 H Rate Blood Pressure Blood Pressure 112/48 L [Left Brachial artery] Blood Pressure 128/54 L [Right Brachial artery] O2 Saturation 93 94 92 02/04/21 02/04/21 02/04/21 19:43 19:55 23:53 Temperature 36.4 C L 36.4 C L Heart Rate 68 Heart Rate [ Brachial] Heart Rate [ 72 74 Radial] Respiratory 18 24 24 Rate Blood Pressure Blood Pressure 127/40 L 109/46 L [Left Brachial artery] Blood Pressure [Right Brachial artery] O2 Saturation 94 94 02/05/21 02/05/21 02/05/21 05:02 08:23 08:43 Temperature 36.3 C L Heart Rate 65 Heart Rate [ Brachial] Heart Rate [ 61 69 Radial] Respiratory 24 30 H 26 H Rate Blood Pressure Blood Pressure 106/81 H 121/74 [Left Brachial artery] Blood Pressure [Right Brachial artery] O2 Saturation 96 78 L 02/05/21 10:13 Temperature Heart Rate Heart Rate [ Brachial] Heart Rate [ Radial] Respiratory Rate Blood Pressure Blood Pressure [Left Brachial artery] Blood Pressure [Right Brachial artery] O2 Saturation 90 L Oxygen O2 Source [With Activity] Room air O2 Source Oxymizer I&O (Last 24 Hrs): Intake and Output Totals x24h 02/03/21 02/04/21 02/05/21 23:59 23:59 23:59 Intake Total 1900 850 Output Total 250 Balance 1900 600 General: Alert, Oriented x3, Cooperative, Mild distress HEENT: Atraumatic Neck: Supple Lymphatic: no adenopathy Neuro: Alert, Non Focal, Oriented Times 3 Cardiovascular: Regular rate, Normal S1, Normal S2 Respiratory: Chest non-tender, Wheezes Abdomen: Normal bowel sounds, Soft, No tenderness Extremities: Normal pulses - Results Results: Laboratory Results WBC 15.2 x10^3/uL (4.8-10.8) H 02/05/21 04:36 RBC 4.47 10^6/uL (4.20-5.40) 02/05/21 04:36 Hgb 14.6 g/dL (12.0-16.0) 02/05/21 04:36 Hct 44.7 % (37.0-47.0) 02/05/21 04:36 MCV 100.0 fL (81.0-99.0) H 02/05/21 04:36 MCH 32.7 pg (27.0-31.0) H 02/05/21 04:36 MCHC 32.7 g/dL (32.0-36.0) 02/05/21 04:36 RDW 12.9 % (12.0-15.0) 02/05/21 04:36 Plt Count 226 10^3/uL (130-450) 02/05/21 04:36 MPV 11.1 fL (7.9-10.8) H 02/05/21 04:36 Neut # (Auto) 14.2 10^3/uL (1.5-6.6) H 02/05/21 04:36 Lymph # (Auto) 0.7 10^3/uL (1.5-3.5) L 02/05/21 04:36 Bond # (Auto) 0.2 10^3/uL (0.0-1.0) 02/05/21 04:36 Eos # (Auto) 0.0 10^3/uL (0.0-0.7) 02/05/21 04:36 Baso # (Auto) 0.0 10^3/uL (0.0-0.1) 02/05/21 04:36 Absolute Nucleated RBC 0.00 x10^3/uL 02/05/21 04:36 Nucleated RBC % 0.0 /100WBC 02/05/21 04:36 VBG pH 7.344 (7.31-7.41) 02/04/21 09:52 VBG pCO2 57.5 mmHg (41-51) H 02/04/21 09:52 VBG pO2 29.5 mmHg (25-47) 02/04/21 09:52 VBG HCO3 30.6 mmol/L (23-28) H 02/04/21 09:52 VBG Total CO2 32.4 mmol/L (24-29) H 02/04/21 09:52 VBG O2 Saturation 62.2 % (60-80) 02/04/21 09:52 VBG Base Excess 3.1 mmol/L (-2 - +2) H 02/04/21 09:52 Sodium 137 mmol/L (135-145) 02/05/21 04:36 Potassium 3.7 mmol/L (3.5-5.0) 02/05/21 04:36 Chloride 97 mmol/L (101-111) L 02/05/21 04:36 Carbon Dioxide 24 mmol/L (21-32) 02/05/21 04:36 Anion Gap 16.0 (6-13) H 02/05/21 04:36 BUN 20 mg/dL (6-20) 02/05/21 04:36 Creatinine 1.1 mg/dL (0.4-1.0) H 02/05/21 04:36 Estimated GFR (MDRD) 51 (>89) L 02/05/21 04:36 Glucose 376 mg/dL (70-100) H 02/05/21 04:36 Calcium 9.8 mg/dL (8.5-10.3) 02/05/21 04:36 Magnesium 2.1 mg/dL (1.7-2.8) 02/04/21 09:52 Troponin I High Sens 5.5 ng/L (2.3-14.8) 02/04/21 23:44 B-Natriuretic Peptide 316 pg/mL (5-100) H 02/05/21 04:36 Nasal Adenovirus (PCR) NOT DETECTED 02/04/21 09:12 Nasal B. parapertussis DNA (PCR) NOT DETECTED 02/04/21 09:12 Nasal Coronavir 229E PCR NOT DETECTED 02/04/21 09:12 Nasal Coronavir HKU1 PCR NOT DETECTED 02/04/21 09:12 Nasal Coronavir NL63 PCR NOT DETECTED 02/04/21 09:12 Nasal Coronavir OC43 PCR NOT DETECTED 02/04/21 09:12 Nasal Enterovir/Rhinovir PCR NOT DETECTED 02/04/21 09:12 Nasal Influenza B PCR NOT DETECTED 02/04/21 09:12 Nasal Influenza A PCR NOT DETECTED 02/04/21 09:12 Nasal Parainfluen 1 PCR NOT DETECTED 02/04/21 09:12 Nasal Parainfluen 2 PCR NOT DETECTED 02/04/21 09:12 Nasal Parainfluen 3 PCR NOT DETECTED 02/04/21 09:12 Nasal Parainfluen 4 PCR NOT DETECTED 02/04/21 09:12 Nasal RSV (PCR) NOT DETECTED 02/04/21 09:12 Nasal B.pertussis DNA PCR NOT DETECTED 02/04/21 09:12 Nasal C.pneumoniae (PCR) NOT DETECTED 02/04/21 09:12 Azar Human Metapneumo PCR NOT DETECTED 02/04/21 09:12 Nasal M.pneumoniae (PCR) NOT DETECTED 02/04/21 09:12 Nasal SARS-CoV-2 (PCR) DETECTED A 02/04/21 09:12 - Procedures Procedures: Procedures ESOPHAGOGASTRODUODENOSCOPY [EGD] W/CLOSED BIOPSY (11/29/13) INSERTION OF INFUSION DEV INTO SUP VENA CAVA, PERC APPROACH (12/28/17) MANUAL RUPT JOINT ADHES (04/27/14) TOTAL KNEE REPLACEMENT (06/16/14) ABX Reporting Has patient been on IV antibiotics over the past 48 hours?: No Current Medications - Current Medications Current Medications: Active Medications Acetaminophen (Acetaminophen 325 Mg Tablet) 650 mg PO Q4HR PRN PRN Reason: Pain 1 to 4 Last Admin: 02/04/21 21:24 Dose: 650 mg Documented by: Albuterol (Albuterol 1 Puff) 2 puffs INH Q4H PRN PRN Reason: Wheezing Last Admin: 02/05/21 08:42 Dose: 2 puffs Documented by: Amiodarone HCl (Amiodarone 200 Mg Tablet) 100 mg PO DAILY [facility] Last Admin: 02/05/21 08:20 Dose: 100 mg Documented by: Apixaban (Apixaban 5 Mg Tablet) 5 mg PO BID ROMAN Last Admin: 02/05/21 08:19 Dose: 5 mg Documented by: Furosemide (Furosemide 40 Mg/4 Ml Vial) 40 mg IVP BIDDIURETIC ROMAN Guaifenesin (Guaifenesin 600 Mg Tablet) 600 mg PO BID ROMAN Last Admin: 02/05/21 08:19 Dose: 600 mg Documented by: Remdesivir 200 mg/ Sodium (Chloride) 250 mls @ 250 mls/hr IV ONCE ROMAN Stop: 02/05/21 13:00 Remdesivir 100 mg/ Sodium (Chloride) 100 mls @ 200 mls/hr IV DAILY ROMAN Stop: 02/09/21 09:29 Insulin Aspart (Insulin Aspart 300 Unit/3 Ml Pen) 2 - 10 unit SUBQ 0800,1200,1700,2100 ROMAN; Protocol Insulin Aspart (Insulin Aspart 300 Unit/3 Ml Pen) 5 unit SUBQ TIDWM ROMAN Insulin Aspart (Insulin Aspart 300 Unit/3 Ml Pen) 10 unit SUBQ ONCE ONE Stop: 02/05/21 11:13 Insulin Glargine (Insulin Glargine 300 Unit/3 Ml Pen) 10 unit SUBQ QPM ROMAN Methylprednisolone (Methylprednisolone Succinate 40 Mg/Ml Vial) 60 mg IVP TID ROMAN Metoprolol Succinate (Metoprolol Succinate 50 Mg Tablet) 100 mg PO BID [facility] Last Admin: 02/05/21 08:19 Dose: 100 mg Documented by: Nitroglycerin (Nitroglycerin Sl 0.4 Mg Tablet) 0.4 mg SL Q5MIN PRN PRN Reason: Chest Pain Ondansetron HCl (Ondansetron 4 Mg/2 Ml Vial) 4 mg IVP Q6HR PRN PRN Reason: Nausea / Vomiting Prochlorperazine Edisylate (Prochlorperazine 10 Mg/2 Ml Vial) 10 mg IVP Q6HR PRN PRN Reason: Nausea / Vomiting Fluticasone/Salmeterol (Fluticasone/Salmeterol 250/50 Inhaler) 1 puffs INH BID [facility] Last Admin: 02/05/21 08:42 Dose: 1 puffs Documented by: Sodium Chloride (Sodium Chloride Flush 0.9% 10 Ml Syringe) 10 ml IVP PRN PRN PRN Reason: NEEDED PER PROVIDER ORDERS Last Admin: 02/05/21 06:16 Dose: 10 ml Documented by: Sodium Chloride (Sodium Chloride Flush 0.9% 10 Ml Syringe) 10 ml IVP 0100,0900,1700 [facility] Last Admin: 02/05/21 08:21 Dose: 10 ml Documented by: Spironolactone (Spironolactone 25 Mg Tablet) 25 mg PO DAILY [facility] Last Admin: 02/05/21 08:19 Dose: 25 mg Documented by: Furosemide 40 mg PO BID 09/07/20 Metoprolol Succinate [Toprol Xl] 100 mg PO BID 09/07/20 Apixaban [Eliquis] 5 mg PO BID 10/24/20 Amiodarone [Pacerone] 100 mg PO DAILY 02/04/21 Loratadine [Claritin] 10 mg PO DAILY 02/04/21
[2021-02-05] MEDS: INSULIN ASPART 300 UNIT/3 ML PEN SUBQ SCH ×5 (11:37→21:39)
[2021-02-05 12:33] LABS: ESTIMATED AVERAGE GLUCOSE 171 mg/dL (70-100); HEMOGLOBIN A1c% 7.6 % (4.27-6.07)
[2021-02-05] MEDS: FUROSEMIDE 40 MG/4 ML VIAL IVP SCH (15:00)
[2021-02-05] MEDS ORDERED: INSULIN GLARGINE 300 UNIT/3 ML PEN SUBQ SCH (21:00)
[2021-02-05] MEDS: INSULIN GLARGINE 300 UNIT/3 ML PEN SUBQ SCH (21:44)
[2021-02-06] MEDS: SODIUM CHLORIDE FLUSH 0.9% 10 ML SYRINGE IVP SCH ×3 (01:31→16:58)
[2021-02-06 05:04] LABS: BASOPHILS % (AUTO) 0.2 %; EOSINOPHILS % (AUTO) 0.2 %; HGB - HEMOGLOBIN 13.9 g/dL (12.0-16.0); LYMPHOCYTES # (AUTO) 0.6 10^3/uL (1.5-3.5); LYMPHOCYTES % (AUTO) 3.2 %; MEAN CORPUSCULAR HEMOGLOBIN 32.6 pg (27.0-31.0); MEAN CORPUSCULAR HGB CONC 32.3 g/dL (32.0-36.0); MEAN CORPUSCULAR VOLUME 100.9 fL (81.0-99.0); MEAN PLATELET VOLUME 10.5 fL (7.9-10.8); MONOCYTES # (AUTO) 0.5 10^3/uL (0.0-1.0); MONOCYTES % (AUTO) 2.4 %; NEUTROPHILS # (AUTO) 18.3 10^3/uL (1.5-6.6); NEUTROPHILS % (AUTO) 93.2 %; PLT - PLATELET COUNT 224 10^3/uL (130-450); RED BLOOD COUNT 4.26 10^6/uL (4.20-5.40); RED CELL DISTRIBUTION WIDTH 13.2 % (12.0-15.0); WHITE BLOOD COUNT 19.7 x10^3/uL (4.8-10.8)
[2021-02-06 05:22] LABS: CALCIUM 9.3 mg/dL (8.5-10.3); POTASSIUM 4.1 mmol/L (3.5-5.0)
[2021-02-06 05:31] LABS: CHOL/HDL RATIO 3.3 (<4.4); CHOLESTEROL 167 mg/dL; HDL CHOLESTEROL 50 mg/dL; LDL CHOLESTEROL,CALCULATED 107 mg/dL; LDL/HDL RATIO 2.1 (<4.4); TRIGLYCERIDES 48 mg/dL; VLDL CHOLESTEROL 10 mg/dL
[2021-02-06] MEDS: methylPREDNISolone SUCCINATE 40 MG/ML VIAL IVP SCH ×3 (06:46→21:10)
[2021-02-06] MEDS: FUROSEMIDE 40 MG/4 ML VIAL IVP SCH ×2 (06:46→13:32)
[2021-02-06] MEDS: ALBUTEROL 1 PUFF INH PRN ×2 (07:33→20:00)
[2021-02-06] MEDS: FLUTICASONE/SALMETEROL 250/50 INHALER INH SCH ×2 (07:34→20:01)
[2021-02-06] MEDS: INSULIN ASPART 300 UNIT/3 ML PEN SUBQ SCH ×8 (07:50→21:09)
--- NOTE | 2021-02-06 08:08 | PROVIDER PROGRESS NOTE ---
Assessment/Plan - Problem List (1) Respiratory failure with hypoxia Qualifiers: Chronicity: acute on chronic Qualified Code(s): J96.21 - Acute and chronic respiratory failure with hypoxia Assessment/Plan: Likely multifactorial. Secondary to COPD exacerbation and Covid 19 pneumonia. On remdesivir day 06/19. Solu-Medrol 60 mg IV 3 times daily. Currently on 4 L of oxygen via oxygen mask with oxygen saturation at 95%. This is a significant improvement from the previous day when the patient was on high flow nasal cannula. Patient was started on Rocephin and azithromycin on 02/06/2021 due to elevated WBC at 19. (2) Acute exacerbation of COPD with asthma Assessment/Plan: On remdesivir day 06/19. Solu-Medrol 60 mg IV 3 times daily. On fluticasone/salmeterol 1 puff inhalation twice daily. Currently on 4 L of oxygen via oxygen mask with oxygen saturation at 95%. This is a significant improvement from the previous day when the patient was on high flow nasal cannula. Patient was started on Rocephin and azithromycin on 02/06/2021 due to elevated WBC at 19. (3) Pneumonia due to COVID-19 virus Assessment/Plan: On remdesivir day 06/19. Solu-Medrol 60 mg IV 3 times daily. Currently on 4 L of oxygen via oxygen mask with oxygen saturation at 95%. This is a significant improvement from the previous day when the patient was on high flow nasal cannula. Patient was started on Rocephin and azithromycin on 02/06/2021 due to elevated WBC at 19. (4) Systolic heart failure Assessment/Plan: Recent echocardiogram showed EF of 35 to 40%. Patient is on metoprolol, spironolactone, Lasix, Eliquis. (5) Diabetes mellitus Assessment/Plan: Hemoglobin A1c on 02/05/2021 was 7.6. She does not take any diabetic medications at home because she maintains that she is not diabetic. Blood glucose is further elevated by steroid administration for respiratory problems. She is on Lantus 15 units every afternoon. Regular insulin 7 units 3 times daily with meals and sliding scale insulin. (6) Chest pain Assessment/Plan: Likely Musculoskeletal. Due to coughing. The chest pain was reproducible on palpation. Troponin has been trended x3 and negative. (7) HTN (hypertension) Assessment/Plan: On metoprolol succinate, spironolactone and Lasix. (8) Hx of cardiac arrhythmia Assessment/Plan: On amiodarone 100 mg p.o. daily. On metoprolol succinate Milligrams p.o. twice daily (9) Hx of coronary artery disease Assessment/Plan: On metoprolol succinate, Eliquis, - Current Meds Current Meds: Current Medications Generic Name Dose Route Start Last Admin Trade Name Freq PRN Reason Stop Dose Admin Acetaminophen 650 mg 02/04/21 11:33 02/04/21 21:24 Acetaminophen 325 Mg Tablet PO 650 mg Q4HR PRN Administration Pain 1 to 4 Albuterol 2 puffs 02/04/21 12:19 02/06/21 07:33 Albuterol 1 Puff INH 2 puffs Q4H PRN Administration Wheezing Amiodarone HCl 100 mg 02/05/21 09:00 02/05/21 08:20 Amiodarone 200 Mg Tablet PO 100 mg DAILY ROMAN Administration Apixaban 5 mg 02/04/21 21:00 02/05/21 21:40 Apixaban 5 Mg Tablet PO 5 mg BID ROMAN Administration Furosemide 40 mg 02/05/21 14:00 02/06/21 06:46 Furosemide 40 Mg/4 Ml Vial IVP 40 mg BIDDIURETIC ROMAN Administration Guaifenesin 600 mg 02/04/21 14:00 02/05/21 21:40 Guaifenesin 600 Mg Tablet PO 600 mg BID ROMAN Administration Insulin Aspart 2 - 10 unit 02/05/21 12:00 02/06/21 07:50 Insulin Aspart 300 Unit/3 Ml Pen SUBQ 4 unit 0800,1200,1700,2100 ROMAN Administration Protocol Insulin Glargine 15 unit 02/05/21 21:00 02/05/21 21:44 Insulin Glargine 300 Unit/3 Ml Pen SUBQ 15 unit QPM ROMAN Administration Methylprednisolone 60 mg 02/05/21 14:00 02/06/21 06:46 Methylprednisolone Succinate 40 Mg/Ml Vial IVP 60 mg TID ROMAN Administration Metoprolol Succinate 100 mg 02/04/21 21:00 02/05/21 21:40 Metoprolol Succinate 50 Mg Tablet PO 100 mg BID ROMAN Administration Fluticasone/Salmeterol 1 puffs 02/05/21 09:00 02/06/21 07:34 Fluticasone/Salmeterol 250/50 Inhaler INH 1 puffs BID ROMAN Administration Sodium Chloride 10 ml 02/04/21 11:33 02/05/21 06:16 Sodium Chloride Flush 0.9% 10 Ml Syringe IVP 10 ml PRN PRN Administration NEEDED PER PROVIDER ORDERS Sodium Chloride 10 ml 02/04/21 17:00 02/06/21 01:31 Sodium Chloride Flush 0.9% 10 Ml Syringe IVP 10 ml 0100,0900,1700 ROMAN Administration Spironolactone 25 mg 02/05/21 09:00 02/05/21 08:19 Spironolactone 25 Mg Tablet PO 25 mg DAILY ROMAN Administration - Lab Result Fish Bone Diagrams: 02/06/21 04:53 02/06/21 04:53 - Additional Planning My Orders: My Active Orders 02/05/21 21:00 Insulin Glargine [Lantus Solostar] 15 unit SUBQ QPM 02/06/21 08:00 Insulin Aspart [NovoLOG] 7 unit SUBQ TIDWM 02/06/21 09:00 Azithromycin Inj [Zithromax Inj] 500 mg Sodium Chloride 0.9% [Normal Saline 0.9%] 250 ml IV DAILY cefTRIAXone [Rocephin] 1 gm Sodium Chloride 0.9% Minibag [Normal Saline 0.9% Minibag] 100 ml IV DAILY Subjective - Subjective Patient Reports: Other (Patient was resting in bed at time of exam. She has a significant audible wheeze. She also appears flushed. She also has a +1 lower extremity edema. Her respiratory status is significantly improved today when compared to the previous day.) Objective Vital Signs: Vital Signs - 24 hr 02/05/21 02/05/21 02/05/21 08:23 08:43 10:13 Temperature Heart Rate 65 Heart Rate [ 69 Radial] Respiratory 30 H 26 H Rate Blood Pressure 121/74 [Left Brachial artery] O2 Saturation 78 L 90 L 02/05/21 02/05/21 02/05/21 11:11 16:38 20:30 Temperature 36.6 C 36.7 C Heart Rate 81 Heart Rate [ 74 82 Radial] Respiratory 24 24 24 Rate Blood Pressure 95/67 123/51 L [Left Brachial artery] O2 Saturation 98 97 02/05/21 02/06/2121 21:00 01:00 04:43 Temperature 36.6 C 36.4 C L Heart Rate Heart Rate [ 73 61 60 Radial] Respiratory 24 20 20 Rate Blood Pressure 103/62 105/48 L 114/52 L [Left Brachial artery] O2 Saturation 94 95 97 02/06/21 02/06/21 07:34 07:37 Temperature 36.4 C L Heart Rate 72 Heart Rate [ 78 Radial] Respiratory 22 24 Rate Blood Pressure 99/59 L [Left Brachial artery] O2 Saturation 98 Oxygen O2 Source [With Activity] Room air O2 Source [facility] I&O (Last 24 Hrs): Intake and Output Totals x24h 02/04/21 02/05/21 02/06/21 23:59 23:59 23:59 Intake Total 1900 2300 10 Output Total 1950 600 Balance 1900 350 -590 General: Alert, Oriented x3, Mild distress HEENT: PERRLA, EOMI Neck: Supple, No JVD Neuro: Alert, Non Focal, Oriented Times 3 Cardiovascular: Regular rate Respiratory: Other (Musculoskeletal pain, Significant inspiratory and expiratory wheezes.) Abdomen: Normal bowel sounds, Soft, No tenderness, No masses Extremities: No clubbing, Other (+1 edema) Skin: No rashes, No breakdown - Results Results: Laboratory Results WBC 19.7 x10^3/uL (4.8-10.8) H 02/06/21 04:53 RBC 4.26 10^6/uL (4.20-5.40) 02/06/21 04:53 Hgb 13.9 g/dL (12.0-16.0) 02/06/21 04:53 Hct 43.0 % (37.0-47.0) 02/06/21 04:53 MCV 100.9 fL (81.0-99.0) H 02/06/21 04:53 MCH 32.6 pg (27.0-31.0) H 02/06/21 04:53 MCHC 32.3 g/dL (32.0-36.0) 02/06/21 04:53 RDW 13.2 % (12.0-15.0) 02/06/21 04:53 Plt Count 224 10^3/uL (130-450) 02/06/21 04:53 MPV 10.5 fL (7.9-10.8) 02/06/21 04:53 Neut # (Auto) 18.3 10^3/uL (1.5-6.6) H 02/06/21 04:53 Lymph # (Auto) 0.6 10^3/uL (1.5-3.5) L 02/06/21 04:53 [place] # (Auto) 0.5 10^3/uL (0.0-1.0) 02/06/21 04:53 Eos # (Auto) 0.0 10^3/uL (0.0-0.7) 02/06/21 04:53 Baso # (Auto) 0.0 10^3/uL (0.0-0.1) 02/06/21 04:53 Absolute Nucleated RBC 0.00 x10^3/uL 02/06/21 04:53 Nucleated RBC % 0.0 /100WBC 02/06/21 04:53 VBG pH 7.344 (7.31-7.41) 02/04/21 09:52 VBG pCO2 57.5 mmHg (41-51) H 02/04/21 09:52 VBG pO2 29.5 mmHg (25-47) 02/04/21 09:52 VBG HCO3 30.6 mmol/L (23-28) H 02/04/21 09:52 VBG Total CO2 32.4 mmol/L (24-29) H 02/04/21 09:52 VBG O2 Saturation 62.2 % (60-80) 02/04/21 09:52 VBG Base Excess 3.1 mmol/L (-2 - +2) H 02/04/21 09:52 Sodium 140 mmol/L (135-145) 02/06/21 04:53 Potassium 4.1 mmol/L (3.5-5.0) 02/06/21 04:53 Chloride 102 mmol/L (101-111) 02/06/21 04:53 Carbon Dioxide 27 mmol/L (21-32) 02/06/21 04:53 Anion Gap 11.0 (6-13) 02/06/21 04:53 BUN 26 mg/dL (6-20) H 02/06/21 04:53 Creatinine 1.0 mg/dL (0.4-1.0) 02/06/21 04:53 Estimated GFR (MDRD) 57 (>89) L 02/06/21 04:53 Glucose 215 mg/dL (70-100) H 02/06/21 04:53 POC Whole Bld Glucose 217 mg/dL (70 - 100) H 02/06/21 07:36 Estimat Average Glucose 171 mg/dL (70-100) H 02/05/21 04:36 Hemoglobin A1c % 7.6 % (4.27-6.07) H 02/05/21 04:36 Calcium 9.3 mg/dL (8.5-10.3) 02/06/21 04:53 Magnesium 2.1 mg/dL (1.7-2.8) 02/04/21 09:52 Troponin I High Sens 7.4 ng/L (2.3-14.8) 02/05/21 17:14 B-Natriuretic Peptide 233 pg/mL (5-100) H 02/06/21 04:53 Triglycerides 48 mg/dL (-149) 02/06/21 04:53 Cholesterol 167 mg/dL (-199) 02/06/21 04:53 LDL Cholesterol, Calc 107 mg/dL (-129) 02/06/21 04:53 VLDL Cholesterol 10 mg/dL 02/06/21 04:53 HDL Cholesterol 50 mg/dL (60-) L 02/06/21 04:53 LDL/HDL Ratio 2.1 (<4.4) 02/06/21 04:53 Cholesterol/HDL Ratio 3.3 (<4.4) 02/06/21 04:53 Nasal Adenovirus (PCR) NOT DETECTED 02/04/21 09:12 Nasal B. parapertussis DNA (PCR) NOT DETECTED 02/04/21 09:12 Nasal Coronavir 229E PCR NOT DETECTED 02/04/21 09:12 Nasal Coronavir HKU1 PCR NOT DETECTED 02/04/21 09:12 Nasal Coronavir NL63 PCR NOT DETECTED 02/04/21 09:12 Nasal Coronavir OC43 PCR NOT DETECTED 02/04/21 09:12 Nasal Enterovir/Rhinovir PCR NOT DETECTED 02/04/21 09:12 Nasal Influenza B PCR NOT DETECTED 02/04/21 09:12 Nasal Influenza A PCR NOT DETECTED 02/04/21 09:12 Nasal Parainfluen 1 PCR NOT DETECTED 02/04/21 09:12 Nasal Parainfluen 2 PCR NOT DETECTED 02/04/21 09:12 Nasal Parainfluen 3 PCR NOT DETECTED 02/04/21 09:12 Nasal Parainfluen 4 PCR NOT DETECTED 02/04/21 09:12 Nasal RSV (PCR) NOT DETECTED 02/04/21 09:12 Nasal B.pertussis DNA PCR NOT DETECTED 02/04/21 09:12 Nasal C.pneumoniae (PCR) NOT DETECTED 02/04/21 09:12 Azar Human Metapneumo PCR NOT DETECTED 02/04/21 09:12 Nasal M.pneumoniae (PCR) NOT DETECTED 02/04/21 09:12 Nasal SARS-CoV-2 (PCR) DETECTED A 02/04/21 09:12 - Procedures Procedures: Procedures ESOPHAGOGASTRODUODENOSCOPY [EGD] W/CLOSED BIOPSY (11/29/13) INSERTION OF INFUSION DEV INTO SUP VENA CAVA, PERC APPROACH (12/28/17) MANUAL RUPT JOINT ADHES (04/27/14) TOTAL KNEE REPLACEMENT (06/16/14) ABX Reporting Has patient been on IV antibiotics over the past 48 hours?: Yes
[2021-02-06] MEDS: AMIODARONE 200 MG TABLET PO SCH (08:42)
[2021-02-06] MEDS: METOPROLOL SUCCINATE 50 MG TABLET PO SCH ×2 (08:42→21:10)
[2021-02-06] MEDS: APIXABAN 5 MG TABLET PO SCH ×2 (08:42→21:08)
[2021-02-06] MEDS: SPIRONOLACTONE 25 MG TABLET PO SCH (08:43)
[2021-02-06] MEDS: guaiFENesin 600 MG TABLET PO SCH ×2 (08:43→21:07)
[2021-02-06] MEDS: cefTRIAXone 1 GM in SODIUM CHLORIDE 0.9% MINIBAG 100 ML IV SCH (08:43)
[2021-02-06] MEDS ORDERED: AZITHROMYCIN INJ 500 MG in SODIUM CHLORIDE 0.9% 250 ML IV SCH (09:00)
[2021-02-06] MEDS: REMDESIVIR 100MG VIAL 100 MG in SODIUM CHLORIDE 0.9% 100ML 100 ML IV SCH (09:19)
[2021-02-06] MEDS: AZITHROMYCIN INJ 500 MG in SODIUM CHLORIDE 0.9% 250 ML IV SCH (10:02)
[2021-02-06] MEDS: SODIUM CHLORIDE FLUSH 0.9% 10 ML SYRINGE IVP PRN (13:33)
[2021-02-06] MEDS: ACETAMINOPHEN 325 MG TABLET PO PRN ×2 (15:56→21:07)
[2021-02-06] MEDS: INSULIN GLARGINE 300 UNIT/3 ML PEN SUBQ SCH (21:09)
[2021-02-07] MEDS: SODIUM CHLORIDE FLUSH 0.9% 10 ML SYRINGE IVP SCH ×4 (01:12→23:59)
[2021-02-07] MEDS: ACETAMINOPHEN 325 MG TABLET PO PRN ×4 (01:17→23:59)
[2021-02-07] MEDS ORDERED: KETOROLAC 15 MG/ML VIAL IVP SCH (03:00)
[2021-02-07] MEDS ORDERED: KETOROLAC 30 MG/ML VIAL IVP ONE (05:13)
[2021-02-07] MEDS: FUROSEMIDE 40 MG/4 ML VIAL IVP SCH ×2 (05:41→13:33)
[2021-02-07] MEDS: methylPREDNISolone SUCCINATE 40 MG/ML VIAL IVP SCH ×3 (05:42→21:03)
[2021-02-07 06:02] LABS: BASOPHILS % (AUTO) 0.1 %; HCT - HEMATOCRIT 43.7 % (37.0-47.0); HGB - HEMOGLOBIN 13.9 g/dL (12.0-16.0); LYMPHOCYTES # (AUTO) 0.7 10^3/uL (1.5-3.5); LYMPHOCYTES % (AUTO) 4.5 %; MEAN CORPUSCULAR HEMOGLOBIN 32.6 pg (27.0-31.0); MEAN CORPUSCULAR HGB CONC 31.8 g/dL (32.0-36.0); MEAN CORPUSCULAR VOLUME 102.3 fL (81.0-99.0); MEAN PLATELET VOLUME 10.7 fL (7.9-10.8); MONOCYTES # (AUTO) 0.4 10^3/uL (0.0-1.0); MONOCYTES % (AUTO) 2.6 %; NEUTROPHILS # (AUTO) 13.4 10^3/uL (1.5-6.6); NEUTROPHILS % (AUTO) 92.2 %; PLT - PLATELET COUNT 217 10^3/uL (130-450); RED BLOOD COUNT 4.27 10^6/uL (4.20-5.40); RED CELL DISTRIBUTION WIDTH 13.4 % (12.0-15.0); WHITE BLOOD COUNT 14.5 x10^3/uL (4.8-10.8)
[2021-02-07 06:05] LABS: CALCIUM 9.1 mg/dL (8.5-10.3); CREATININE 1.2 mg/dL (0.4-1.0); POTASSIUM 3.9 mmol/L (3.5-5.0)
--- NOTE | 2021-02-07 07:33 | PROVIDER PROGRESS NOTE ---
Assessment/Plan - Problem List (1) Respiratory failure with hypoxia Qualifiers: Chronicity: acute on chronic Qualified Code(s): J96.21 - Acute and chronic respiratory failure with hypoxia Assessment/Plan: Likely multifactorial. Secondary to COPD exacerbation and Covid 19 pneumonia. On remdesivir day 07/17. Solu-Medrol decreased to 40 mg IV 3 times daily. Currently on 2 L of oxygen via oxygen mask with oxygen saturation at 98%. She continues to improve daily Patient was started on Rocephin and azithromycin on 02/06/2021 due to elevated WBC at 19. WBC today 14.5. (2) Acute exacerbation of COPD with asthma Assessment/Plan: On remdesivir day 07/17. Solu-Medrol decreased to 40 mg IV 3 times daily. Currently on 2 L of oxygen via oxygen mask with oxygen saturation at 98%. She continues to improve daily Patient was started on Rocephin and azithromycin on 02/06/2021 due to elevated WBC at 19. WBC today 14.5. (3) Pneumonia due to COVID-19 virus Assessment/Plan: On remdesivir day 07/17. Solu-Medrol decreased to 40 mg IV 3 times daily. Currently on 2 L of oxygen via oxygen mask with oxygen saturation at 98%. She continues to improve daily Patient was started on Rocephin and azithromycin on 02/06/2021 due to elevated WBC at 19. WBC today 14.5. (4) Systolic heart failure Assessment/Plan: Recent echocardiogram showed EF of 35 to 40%. Patient is on metoprolol, spironolactone, Lasix, Eliquis. (5) Diabetes mellitus Assessment/Plan: Hemoglobin A1c on 02/05/2021 was 7.6. She does not take any diabetic medications at home because she maintains that she is not diabetic. Blood glucose is further elevated by steroid administration for respiratory problems. She is on Lantus 15 units every afternoon. Regular insulin 7 units 3 times daily with meals and sliding scale insulin. (6) Chest pain Assessment/Plan: Likely Musculoskeletal. Due to coughing. The chest pain was reproducible on palpation. Troponin has been trended x3 and negative. (7) HTN (hypertension) Assessment/Plan: On metoprolol succinate, spironolactone and Lasix. (8) Hx of cardiac arrhythmia Assessment/Plan: On amiodarone 100 mg p.o. daily. On metoprolol succinate Milligrams p.o. twice daily (9) Hx of coronary artery disease Assessment/Plan: On metoprolol succinate, Eliquis, - Current Meds Current Meds: Current Medications Generic Name Dose Route Start Last Admin Trade Name Freq PRN Reason Stop Dose Admin Acetaminophen 650 mg 02/04/21 11:33 02/07/21 01:17 Acetaminophen 325 Mg Tablet PO 650 mg Q4HR PRN Administration Pain 1 to 4 Albuterol 2 puffs 02/04/21 12:19 02/06/21 20:00 Albuterol 1 Puff INH 2 puffs Q4H PRN Administration Wheezing Amiodarone HCl 100 mg 02/05/21 09:00 02/06/21 08:42 Amiodarone 200 Mg Tablet PO 100 mg DAILY ROMAN Administration Apixaban 5 mg 02/04/21 21:00 02/06/21 21:08 Apixaban 5 Mg Tablet PO 5 mg BID ROMAN Administration Furosemide 40 mg 02/05/21 14:00 02/07/21 05:41 Furosemide 40 Mg/4 Ml Vial IVP 40 mg BIDDIURETIC ROMAN Administration Guaifenesin 600 mg 02/04/21 14:00 02/06/21 21:07 Guaifenesin 600 Mg Tablet PO 600 mg BID ROMAN Administration Remdesivir 100 mg/ Sodium 100 mls @ 200 mls/hr 02/06/21 09:00 02/06/21 10:00 Chloride IV 02/09/21 09:29 Infused DAILY ROMAN Infusion Ceftriaxone Sodium 1 gm/ 100 mls @ 200 mls/hr 02/06/21 09:00 02/06/21 09:15 Sodium Chloride IV 02/10/21 09:29 Infused DAILY ROMAN Infusion Azithromycin 500 mg/ Sodium 250 mls @ 250 mls/hr 02/06/21 10:30 02/06/21 11:05 Chloride IV 02/08/21 11:29 Infused 1030 ROMAN Infusion Insulin Aspart 2 - 10 unit 02/05/21 12:00 02/06/21 21:09 Insulin Aspart 300 Unit/3 Ml Pen SUBQ 8 unit 0800,1200,1700,2100 ROMAN Administration Protocol Insulin Aspart 7 unit 02/06/21 08:00 02/06/21 16:57 Insulin Aspart 300 Unit/3 Ml Pen SUBQ 7 unit TIDWM ROMAN Administration Insulin Glargine 15 unit 02/05/21 21:00 02/06/21 21:09 Insulin Glargine 300 Unit/3 Ml Pen SUBQ 15 unit QPM ROMAN Administration Metoprolol Succinate 100 mg 02/04/21 21:00 02/06/21 21:10 Metoprolol Succinate 50 Mg Tablet PO Not Given BID ROMAN Fluticasone/Salmeterol 1 puffs 02/05/21 09:00 02/06/21 20:01 Fluticasone/Salmeterol 250/50 Inhaler INH 1 puffs BID ROMAN Administration Sodium Chloride 10 ml 02/04/21 11:33 02/06/21 13:33 Sodium Chloride Flush 0.9% 10 Ml Syringe IVP 10 ml PRN PRN Administration NEEDED PER PROVIDER ORDERS Sodium Chloride 10 ml 02/04/21 17:00 02/07/21 01:12 Sodium Chloride Flush 0.9% 10 Ml Syringe IVP 10 ml 0100,0900,1700 ROMAN Administration Spironolactone 25 mg 02/05/21 09:00 02/06/21 08:43 Spironolactone 25 Mg Tablet PO 25 mg DAILY ROMAN Administration - Lab Result Fish Bone Diagrams: 02/07/21 05:06 02/07/21 05:06 - Additional Planning My Orders: My Active Orders 02/06/21 08:00 Insulin Aspart [NovoLOG] 7 unit SUBQ TIDWM 02/06/21 09:00 cefTRIAXone [Rocephin] 1 gm Sodium Chloride 0.9% Minibag [Normal Saline 0.9% Minibag] 100 ml IV DAILY 02/06/21 10:30 Azithromycin Inj [Zithromax Inj] 500 mg Sodium Chloride 0.9% [Normal Saline 0.9%] 250 ml IV 1030 02/07/21 14:00 methylPREDNISolone SUCCINATE [SOLU-Medrol (40MG VIAL)] 40 mg IVP TID Subjective - Subjective Patient Reports: Other (Patient complains of headache today. She reports improvement in her breathing but does not feel she is back to her baseline. She is currently on 2 L of oxygen via nasal cannula with oxygen saturation at 98%.) Objective Vital Signs: Vital Signs - 24 hr 02/06/21 02/06/21 02/06/21 07:34 07:37 11:40 Temperature 36.4 C L 36.6 C Heart Rate 72 Heart Rate [ Brachial] Heart Rate [ 78 62 Radial] Respiratory 22 24 20 Rate Blood Pressure 99/59 L 107/48 L [Left Brachial artery] Blood Pressure [Right Brachial artery] O2 Saturation 98 95 02/06/21 02/06/21 02/06/21 15:14 20:00 20:29 Temperature 36.7 C 36.4 C L Heart Rate 72 Heart Rate [ Brachial] Heart Rate [ 52 L 80 Radial] Respiratory 18 24 20 Rate Blood Pressure 91/61 105/77 [Left Brachial artery] Blood Pressure [Right Brachial artery] O2 Saturation 97 98 02/07/21 02/07/21 02/07/21 01:00 02:13 04:47 Temperature 36.5 C 36.3 C L Heart Rate Heart Rate [ 67 Brachial] Heart Rate [ 74 Radial] Respiratory 22 20 Rate Blood Pressure 110/51 L 194/87 H [Left Brachial artery] Blood Pressure 113/51 L [Right Brachial artery] O2 Saturation 94 97 Oxygen O2 Source [With Activity] Room air O2 Source [facility] I&O (Last 24 Hrs): Intake and Output Totals x24h 02/05/21 02/06/21 02/07/21 23:59 23:59 23:59 Intake Total 2300 1260 250 Output Total 1950 600 650 Balance 350 660 -400 General: Alert, Oriented x3, Moderate distress HEENT: Atraumatic, PERRLA, EOMI Neck: Supple, No JVD Neuro: Alert, Non Focal, Oriented Times 3 Cardiovascular: Regular rate Respiratory: Chest non-tender, Wheezes Abdomen: Normal bowel sounds, Soft Extremities: No clubbing, No cyanosis Skin: No rashes, No breakdown, No significant lesion - Results Results: Laboratory Results WBC 14.5 x10^3/uL (4.8-10.8) H 02/07/21 05:06 RBC 4.27 10^6/uL (4.20-5.40) 02/07/21 05:06 Hgb 13.9 g/dL (12.0-16.0) 02/07/21 05:06 Hct 43.7 % (37.0-47.0) 02/07/21 05:06 MCV 102.3 fL (81.0-99.0) H 02/07/21 05:06 MCH 32.6 pg (27.0-31.0) H 02/07/21 05:06 MCHC 31.8 g/dL (32.0-36.0) L 02/07/21 05:06 RDW 13.4 % (12.0-15.0) 02/07/21 05:06 Plt Count 217 10^3/uL (130-450) 02/07/21 05:06 MPV 10.7 fL (7.9-10.8) 02/07/21 05:06 Neut # (Auto) 13.4 10^3/uL (1.5-6.6) H 02/07/21 05:06 Lymph # (Auto) 0.7 10^3/uL (1.5-3.5) L 02/07/21 05:06 [place] # (Auto) 0.4 10^3/uL (0.0-1.0) 02/07/21 05:06 Eos # (Auto) 0.0 10^3/uL (0.0-0.7) 02/07/21 05:06 Baso # (Auto) 0.0 10^3/uL (0.0-0.1) 02/07/21 05:06 Absolute Nucleated RBC 0.00 x10^3/uL 02/07/21 05:06 Nucleated RBC % 0.0 /100WBC 02/07/21 05:06 VBG pH 7.344 (7.31-7.41) 02/04/21 09:52 VBG pCO2 57.5 mmHg (41-51) H 02/04/21 09:52 VBG pO2 29.5 mmHg (25-47) 02/04/21 09:52 VBG HCO3 30.6 mmol/L (23-28) H 02/04/21 09:52 VBG Total CO2 32.4 mmol/L (24-29) H 02/04/21 09:52 VBG O2 Saturation 62.2 % (60-80) 02/04/21 09:52 VBG Base Excess 3.1 mmol/L (-2 - +2) H 02/04/21 09:52 Sodium 139 mmol/L (135-145) 02/07/21 05:06 Potassium 3.9 mmol/L (3.5-5.0) 02/07/21 05:06 Chloride 99 mmol/L (101-111) L 02/07/21 05:06 Carbon Dioxide 28 mmol/L (21-32) 02/07/21 05:06 Anion Gap 12.0 (6-13) 02/07/21 05:06 BUN 36 mg/dL (6-20) H 02/07/21 05:06 Creatinine 1.2 mg/dL (0.4-1.0) H 02/07/21 05:06 Estimated GFR (MDRD) 46 (>89) L 02/07/21 05:06 Glucose 211 mg/dL (70-100) H 02/07/21 05:06 POC Whole Bld Glucose 313 mg/dL (70 - 100) H 02/06/21 20:04 Estimat Average Glucose 171 mg/dL (70-100) H 02/05/21 04:36 Hemoglobin A1c % 7.6 % (4.27-6.07) H 02/05/21 04:36 Calcium 9.1 mg/dL (8.5-10.3) 02/07/21 05:06 Magnesium 2.1 mg/dL (1.7-2.8) 02/04/21 09:52 Troponin I High Sens 7.4 ng/L (2.3-14.8) 02/05/21 17:14 B-Natriuretic Peptide 254 pg/mL (5-100) H 02/07/21 05:06 Triglycerides 48 mg/dL (-149) 02/06/21 04:53 Cholesterol 167 mg/dL (-199) 02/06/21 04:53 LDL Cholesterol, Calc 107 mg/dL (-129) 02/06/21 04:53 VLDL Cholesterol 10 mg/dL 02/06/21 04:53 HDL Cholesterol 50 mg/dL (60-) L 02/06/21 04:53 LDL/HDL Ratio 2.1 (<4.4) 02/06/21 04:53 Cholesterol/HDL Ratio 3.3 (<4.4) 02/06/21 04:53 Nasal Adenovirus (PCR) NOT DETECTED 02/04/21 09:12 Nasal B. parapertussis DNA (PCR) NOT DETECTED 02/04/21 09:12 Nasal Coronavir 229E PCR NOT DETECTED 02/04/21 09:12 Nasal Coronavir HKU1 PCR NOT DETECTED 02/04/21 09:12 Nasal Coronavir NL63 PCR NOT DETECTED 02/04/21 09:12 Nasal Coronavir OC43 PCR NOT DETECTED 02/04/21 09:12 Nasal Enterovir/Rhinovir PCR NOT DETECTED 02/04/21 09:12 Nasal Influenza B PCR NOT DETECTED 02/04/21 09:12 Nasal Influenza A PCR NOT DETECTED 02/04/21 09:12 Nasal Parainfluen 1 PCR NOT DETECTED 02/04/21 09:12 Nasal Parainfluen 2 PCR NOT DETECTED 02/04/21 09:12 Nasal Parainfluen 3 PCR NOT DETECTED 02/04/21 09:12 Nasal Parainfluen 4 PCR NOT DETECTED 02/04/21 09:12 Nasal RSV (PCR) NOT DETECTED 02/04/21 09:12 Nasal B.pertussis DNA PCR NOT DETECTED 02/04/21 09:12 Nasal C.pneumoniae (PCR) NOT DETECTED 02/04/21 09:12 Azar Human Metapneumo PCR NOT DETECTED 02/04/21 09:12 Nasal M.pneumoniae (PCR) NOT DETECTED 02/04/21 09:12 Nasal SARS-CoV-2 (PCR) DETECTED A 02/04/21 09:12 - Procedures Procedures: Procedures ESOPHAGOGASTRODUODENOSCOPY [EGD] W/CLOSED BIOPSY (11/29/13) INSERTION OF INFUSION DEV INTO SUP VENA CAVA, PERC APPROACH (12/28/17) MANUAL RUPT JOINT ADHES (04/27/14) TOTAL KNEE REPLACEMENT (06/16/14) ABX Reporting Has patient been on IV antibiotics over the past 48 hours?: Yes
[2021-02-07] MEDS: ALBUTEROL 1 PUFF INH PRN ×2 (07:58→21:26)
[2021-02-07] MEDS: FLUTICASONE/SALMETEROL 250/50 INHALER INH SCH ×2 (07:58→21:27)
[2021-02-07] MEDS: INSULIN ASPART 300 UNIT/3 ML PEN SUBQ SCH ×7 (08:11→21:03)
[2021-02-07] MEDS: METOPROLOL SUCCINATE 50 MG TABLET PO SCH ×2 (08:44→21:00)
[2021-02-07] MEDS: SPIRONOLACTONE 25 MG TABLET PO SCH (08:44)
[2021-02-07] MEDS: AMIODARONE 200 MG TABLET PO SCH (08:44)
[2021-02-07] MEDS: guaiFENesin 600 MG TABLET PO SCH ×2 (08:44→21:00)
[2021-02-07] MEDS: cefTRIAXone 1 GM in SODIUM CHLORIDE 0.9% MINIBAG 100 ML IV SCH (08:45)
[2021-02-07] MEDS: APIXABAN 5 MG TABLET PO SCH ×2 (08:45→21:00)
[2021-02-07] MEDS: REMDESIVIR 100MG VIAL 100 MG in SODIUM CHLORIDE 0.9% 100ML 100 ML IV SCH (09:21)
[2021-02-07] MEDS: AZITHROMYCIN INJ 500 MG in SODIUM CHLORIDE 0.9% 250 ML IV SCH (10:03)
[2021-02-07] MEDS: INSULIN GLARGINE 300 UNIT/3 ML PEN SUBQ SCH (21:01)
[2021-02-08] MEDS ORDERED: MORPHINE 2 MG/ML CARPUJECT ONE (00:18)
[2021-02-08] MEDS: IBUPROFEN 600 MG TABLET PO SCH ×5 (00:58→23:43)
[2021-02-08] MEDS: methylPREDNISolone SUCCINATE 40 MG/ML VIAL IVP SCH ×3 (05:29→21:03)
[2021-02-08] MEDS: FUROSEMIDE 40 MG/4 ML VIAL IVP SCH ×2 (05:29→14:03)
[2021-02-08] MEDS: SODIUM CHLORIDE FLUSH 0.9% 10 ML SYRINGE IVP PRN ×3 (05:30→14:06)
[2021-02-08 05:43] LABS: BASOPHILS % (AUTO) 0.1 %; HCT - HEMATOCRIT 44.6 % (37.0-47.0); HGB - HEMOGLOBIN 14.4 g/dL (12.0-16.0); LYMPHOCYTES # (AUTO) 0.6 10^3/uL (1.5-3.5); LYMPHOCYTES % (AUTO) 4.6 %; MEAN CORPUSCULAR HEMOGLOBIN 32.4 pg (27.0-31.0); MEAN CORPUSCULAR HGB CONC 32.3 g/dL (32.0-36.0); MEAN CORPUSCULAR VOLUME 100.5 fL (81.0-99.0); MEAN PLATELET VOLUME 10.2 fL (7.9-10.8); MONOCYTES # (AUTO) 0.4 10^3/uL (0.0-1.0); MONOCYTES % (AUTO) 3.3 %; NEUTROPHILS # (AUTO) 11.3 10^3/uL (1.5-6.6); NEUTROPHILS % (AUTO) 90.9 %; PLT - PLATELET COUNT 226 10^3/uL (130-450); RED BLOOD COUNT 4.44 10^6/uL (4.20-5.40); RED CELL DISTRIBUTION WIDTH 13.2 % (12.0-15.0); WHITE BLOOD COUNT 12.5 x10^3/uL (4.8-10.8)
[2021-02-08 05:50] LABS: CALCIUM 8.8 mg/dL (8.5-10.3); CREATININE 1.3 mg/dL (0.4-1.0); POTASSIUM 4.1 mmol/L (3.5-5.0)
[2021-02-08] MEDS: FLUTICASONE/SALMETEROL 250/50 INHALER INH SCH ×2 (07:38→21:01)
[2021-02-08] MEDS: ALBUTEROL 1 PUFF INH PRN (07:38)
--- NOTE | 2021-02-08 08:01 | PROVIDER PROGRESS NOTE ---
Assessment/Plan - Problem List (1) Respiratory failure with hypoxia Qualifiers: Chronicity: acute on chronic Qualified Code(s): J96.21 - Acute and chronic respiratory failure with hypoxia Assessment/Plan: Likely multifactorial. Secondary to COPD exacerbation and Covid 19 pneumonia. On remdesivir day 08/17. Solu-Medrol 40 mg IV 3 times daily. Currently on 2 L of oxygen via nasal canula with oxygen saturation at 93%. She continues to improve daily Patient was started on Rocephin and azithromycin on 02/06/2021 due to elevated WBC at 19. WBC today 12.5. Anticipate discharge tomorrow (2) Acute exacerbation of COPD with asthma Assessment/Plan: On remdesivir day 08/17. Solu-Medrol 40 mg IV 3 times daily. Currently on 2 L of oxygen via nasal canula with oxygen saturation at 93%. She continues to improve daily Patient was started on Rocephin and azithromycin on 02/06/2021 due to elevated WBC at 19. WBC today 12.5. (3) Pneumonia due to COVID-19 virus Assessment/Plan: On remdesivir day 08/17. Solu-Medrol 40 mg IV 3 times daily. Currently on 2 L of oxygen via nasal canula with oxygen saturation at 93%. She continues to improve daily Patient was started on Rocephin and azithromycin on 02/06/2021 due to elevated WBC at 19. WBC today 12.5. (4) Systolic heart failure Assessment/Plan: Recent echocardiogram showed EF of 35 to 40%. Patient is on metoprolol, spironolactone, Lasix, Eliquis. (5) Diabetes mellitus Assessment/Plan: Hemoglobin A1c on 02/05/2021 was 7.6. She does not take any diabetic medications at home because she maintains that she is not diabetic. Blood glucose is further elevated by steroid administration for respiratory problems. Lantus increased to 18 units every afternoon today. Regular insulin increased to 10 units 3 times daily with meals and sliding scale insulin. (6) Chest pain Assessment/Plan: Likely Musculoskeletal. Due to coughing. The chest pain was reproducible on palpation. Troponin has been trended x3 and negative. (7) HTN (hypertension) Assessment/Plan: On metoprolol succinate, spironolactone and Lasix. (8) Hx of cardiac arrhythmia Assessment/Plan: On amiodarone 100 mg p.o. daily. On metoprolol succinate Milligrams p.o. twice daily (9) Hx of coronary artery disease Assessment/Plan: On metoprolol succinate, Eliquis - Current Meds Current Meds: Current Medications Generic Name Dose Route Start Last Admin Trade Name Freq PRN Reason Stop Dose Admin Acetaminophen 650 mg 02/04/21 11:33 02/07/21 23:59 Acetaminophen 325 Mg Tablet PO 650 mg Q4HR PRN Administration Pain 1 to 4 Albuterol 2 puffs 02/04/21 12:19 02/08/21 07:38 Albuterol 1 Puff INH 2 puffs Q4H PRN Administration Wheezing Amiodarone HCl 100 mg 02/05/21 09:00 02/07/21 08:44 Amiodarone 200 Mg Tablet PO 100 mg DAILY ROMAN Administration Apixaban 5 mg 02/04/21 21:00 02/07/21 21:00 Apixaban 5 Mg Tablet PO 5 mg BID ROMAN Administration Furosemide 40 mg 02/05/21 14:00 02/08/21 05:29 Furosemide 40 Mg/4 Ml Vial IVP 40 mg BIDDIURETIC ROMAN Administration Guaifenesin 600 mg 02/04/21 14:00 02/07/21 21:00 Guaifenesin 600 Mg Tablet PO 600 mg BID ROMAN Administration Remdesivir 100 mg/ Sodium 100 mls @ 200 mls/hr 02/06/21 09:00 02/07/21 10:00 Chloride IV 02/09/21 09:29 Infused DAILY ROMAN Infusion Ceftriaxone Sodium 1 gm/ 100 mls @ 200 mls/hr 02/06/21 09:00 02/07/21 09:15 Sodium Chloride IV 02/10/21 09:29 Infused DAILY ROMAN Infusion Azithromycin 500 mg/ Sodium 250 mls @ 250 mls/hr 02/06/21 10:30 02/07/21 11:15 Chloride IV 02/08/21 11:29 Infused 1030 [facility]AN Infusion Ibuprofen 600 mg 02/08/21 01:00 02/08/21 05:29 Ibuprofen 600 Mg Tablet PO 600 mg Q6HR ROMAN Administration Insulin Aspart 2 - 10 unit 02/05/21 12:00 02/07/21 21:03 Insulin Aspart 300 Unit/3 Ml Pen SUBQ 8 unit 0800,1200,1700,2100 ROMAN Administration Protocol Insulin Aspart 7 unit 02/06/21 08:00 02/07/21 17:04 Insulin Aspart 300 Unit/3 Ml Pen SUBQ 7 unit TIDWM ROMAN Administration Methylprednisolone 40 mg 02/07/21 14:00 02/08/21 05:29 Methylprednisolone Succinate 40 Mg/Ml Vial IVP 40 mg TID ROMAN Administration Metoprolol Succinate 100 mg 02/04/21 21:00 02/07/21 21:00 Metoprolol Succinate 50 Mg Tablet PO 100 mg BID ROMAN Administration Nitroglycerin 0.4 mg 02/04/21 14:25 02/08/21 00:19 Nitroglycerin Sl 0.4 Mg Tablet SL 0.4 mg Q5MIN PRN Administration Chest Pain Fluticasone/Salmeterol 1 puffs 02/05/21 09:00 02/08/21 07:38 Fluticasone/Salmeterol 250/50 Inhaler INH 1 puffs BID ROMAN Administration Sodium Chloride 10 ml 02/04/21 11:33 02/08/21 05:30 Sodium Chloride Flush 0.9% 10 Ml Syringe IVP 10 ml PRN PRN Administration NEEDED PER PROVIDER ORDERS Sodium Chloride 10 ml 02/04/21 17:00 02/07/21 23:59 Sodium Chloride Flush 0.9% 10 Ml Syringe IVP 10 ml 0100,0900,1700 ROMAN Administration Spironolactone 25 mg 02/05/21 09:00 02/07/21 08:44 Spironolactone 25 Mg Tablet PO 25 mg DAILY ROMAN Administration - Lab Result Fish Bone Diagrams: 02/08/21 05:24 02/08/21 05:24 - Additional Planning My Orders: My Active Orders 02/07/21 14:00 methylPREDNISolone SUCCINATE [SOLU-Medrol (40MG VIAL)] 40 mg IVP TID 02/08/21 21:00 Insulin Glargine [Lantus Solostar] 18 unit SUBQ QPM Subjective - Subjective Patient Reports: Other (Patient's respiratory status is significantly better today. Her wheezing has significantly diminished.She is currently on 2L oxygen via nasal cannula with oxygen saturation at 93%. This is her baseline requirement at home) Objective Vital Signs: Vital Signs - 24 hr 02/07/21 02/07/21 02/07/21 12:07 16:27 20:37 Temperature 36.5 C 36.4 C L 36.6 C Heart Rate Heart Rate [ 61 60 63 Brachial] Heart Rate [ Radial] Respiratory 22 24 24 Rate Blood Pressure Blood Pressure 117/54 L 125/64 120/67 [Left Brachial artery] Blood Pressure [Right Brachial artery] Blood Pressure [Right Radial artery] O2 Saturation 97 94 95 02/07/21 02/08/21 02/08/21 21:28 00:00 00:11 Temperature 36.3 C L Heart Rate 60 Heart Rate [ 84 58 L Brachial] Heart Rate [ Radial] Respiratory 20 22 Rate Blood Pressure Blood Pressure 135/71 H [Left Brachial artery] Blood Pressure 103/70 [Right Brachial artery] Blood Pressure [Right Radial artery] O2 Saturation 97 02/08/21 02/08/21 02/08/21 00:19 00:24 05:28 Temperature 36.3 C L Heart Rate 60 Heart Rate [ 59 L Brachial] Heart Rate [ 59 L Radial] Respiratory 24 Rate Blood Pressure 135/71 H Blood Pressure [Left Brachial artery] Blood Pressure 126/79 [Right Brachial artery] Blood Pressure 127/63 [Right Radial artery] O2 Saturation 97 02/08/21 07:39 Temperature Heart Rate 69 Heart Rate [ Brachial] Heart Rate [ Radial] Respiratory 14 Rate Blood Pressure Blood Pressure [Left Brachial artery] Blood Pressure [Right Brachial artery] Blood Pressure [Right Radial artery] O2 Saturation Oxygen O2 Source [With Activity] Room air O2 Source Nasal cannula I&O (Last 24 Hrs): Intake and Output Totals x24h 02/06/21 02/07/21 02/08/21 23:59 23:59 23:59 Intake Total 1260 1940 Output Total 600 2125 700 Balance 660 -185 -700 Comments/Notes: General: Alert, Oriented x3, Mild distress HEENT: Atraumatic, PERRLA, EOMI Neck: Supple, No JVD Neuro: Alert, Non Focal, Oriented Times 3 Cardiovascular: Regular rate Respiratory: Chest non-tender, Wheezes Abdomen: Normal bowel sounds, Soft Extremities: No clubbing, No cyanosis Skin: No rashes, No breakdown, No significant lesion - Results Results: Laboratory Results WBC 12.5 x10^3/uL (4.8-10.8) H 02/08/21 05:24 RBC 4.44 10^6/uL (4.20-5.40) 02/08/21 05:24 Hgb 14.4 g/dL (12.0-16.0) 02/08/21 05:24 Hct 44.6 % (37.0-47.0) 02/08/21 05:24 MCV 100.5 fL (81.0-99.0) H 02/08/21 05:24 MCH 32.4 pg (27.0-31.0) H 02/08/21 05:24 MCHC 32.3 g/dL (32.0-36.0) 02/08/21 05:24 RDW 13.2 % (12.0-15.0) 02/08/21 05:24 Plt Count 226 10^3/uL (130-450) 02/08/21 05:24 MPV 10.2 fL (7.9-10.8) 02/08/21 05:24 Neut # (Auto) 11.3 10^3/uL (1.5-6.6) H 02/08/21 05:24 Lymph # (Auto) 0.6 10^3/uL (1.5-3.5) L 02/08/21 05:24 Ray # (Auto) 0.4 10^3/uL (0.0-1.0) 02/08/21 05:24 Eos # (Auto) 0.0 10^3/uL (0.0-0.7) 02/08/21 05:24 Baso # (Auto) 0.0 10^3/uL (0.0-0.1) 02/08/21 05:24 Absolute Nucleated RBC 0.00 x10^3/uL 02/08/21 05:24 Nucleated RBC % 0.0 /100WBC 02/08/21 05:24 VBG pH 7.344 (7.31-7.41) 02/04/21 09:52 VBG pCO2 57.5 mmHg (41-51) H 02/04/21 09:52 VBG pO2 29.5 mmHg (25-47) 02/04/21 09:52 VBG HCO3 30.6 mmol/L (23-28) H 02/04/21 09:52 VBG Total CO2 32.4 mmol/L (24-29) H 02/04/21 09:52 VBG O2 Saturation 62.2 % (60-80) 02/04/21 09:52 VBG Base Excess 3.1 mmol/L (-2 - +2) H 02/04/21 09:52 Sodium 143 mmol/L (135-145) 02/08/21 05:24 Potassium 4.1 mmol/L (3.5-5.0) 02/08/21 05:24 Chloride 101 mmol/L (101-111) 02/08/21 05:24 Carbon Dioxide 30 mmol/L (21-32) 02/08/21 05:24 Anion Gap 12.0 (6-13) 02/08/21 05:24 BUN 44 mg/dL (6-20) H 02/08/21 05:24 Creatinine 1.3 mg/dL (0.4-1.0) H 02/08/21 05:24 Estimated GFR (MDRD) 42 (>89) L 02/08/21 05:24 Glucose 219 mg/dL (70-100) H 02/08/21 05:24 POC Whole Bld Glucose 274 mg/dL (70 - 100) H 02/08/21 07:25 Estimat Average Glucose 171 mg/dL (70-100) H 02/05/21 04:36 Hemoglobin A1c % 7.6 % (4.27-6.07) H 02/05/21 04:36 Calcium 8.8 mg/dL (8.5-10.3) 02/08/21 05:24 Magnesium 2.1 mg/dL (1.7-2.8) 02/04/21 09:52 Troponin I High Sens 7.4 ng/L (2.3-14.8) 02/05/21 17:14 B-Natriuretic Peptide 285 pg/mL (5-100) H 02/08/21 05:24 Triglycerides 48 mg/dL (-149) 02/06/21 04:53 Cholesterol 167 mg/dL (-199) 02/06/21 04:53 LDL Cholesterol, Calc 107 mg/dL (-129) 02/06/21 04:53 VLDL Cholesterol 10 mg/dL 02/06/21 04:53 HDL Cholesterol 50 mg/dL (60-) L 02/06/21 04:53 LDL/HDL Ratio 2.1 (<4.4) 02/06/21 04:53 Cholesterol/HDL Ratio 3.3 (<4.4) 02/06/21 04:53 Nasal Adenovirus (PCR) NOT DETECTED 02/04/21 09:12 Nasal B. parapertussis DNA (PCR) NOT DETECTED 02/04/21 09:12 Nasal Coronavir 229E PCR NOT DETECTED 02/04/21 09:12 Nasal Coronavir HKU1 PCR NOT DETECTED 02/04/21 09:12 Nasal Coronavir NL63 PCR NOT DETECTED 02/04/21 09:12 Nasal Coronavir OC43 PCR NOT DETECTED 02/04/21 09:12 Nasal Enterovir/Rhinovir PCR NOT DETECTED 02/04/21 09:12 Nasal Influenza B PCR NOT DETECTED 02/04/21 09:12 Nasal Influenza A PCR NOT DETECTED 02/04/21 09:12 Nasal Parainfluen 1 PCR NOT DETECTED 02/04/21 09:12 Nasal Parainfluen 2 PCR NOT DETECTED 02/04/21 09:12 Nasal Parainfluen 3 PCR NOT DETECTED 02/04/21 09:12 Nasal Parainfluen 4 PCR NOT DETECTED 02/04/21 09:12 Nasal RSV (PCR) NOT DETECTED 02/04/21 09:12 Nasal B.pertussis DNA PCR NOT DETECTED 02/04/21 09:12 Nasal C.pneumoniae (PCR) NOT DETECTED 02/04/21 09:12 Azar Human Metapneumo PCR NOT DETECTED 02/04/21 09:12 Nasal M.pneumoniae (PCR) NOT DETECTED 02/04/21 09:12 Nasal SARS-CoV-2 (PCR) DETECTED A 02/04/21 09:12 - Procedures Procedures: Procedures ESOPHAGOGASTRODUODENOSCOPY [EGD] W/CLOSED BIOPSY (11/29/13) INSERTION OF INFUSION DEV INTO SUP VENA CAVA, PERC APPROACH (12/28/17) MANUAL RUPT JOINT ADHES (04/27/14) TOTAL KNEE REPLACEMENT (06/16/14) ABX Reporting Has patient been on IV antibiotics over the past 48 hours?: Yes
[2021-02-08] MEDS: AMIODARONE 200 MG TABLET PO SCH (08:27)
[2021-02-08] MEDS: SPIRONOLACTONE 25 MG TABLET PO SCH (08:29)
[2021-02-08] MEDS: APIXABAN 5 MG TABLET PO SCH ×2 (08:29→21:01)
[2021-02-08] MEDS: guaiFENesin 600 MG TABLET PO SCH ×2 (08:30→21:01)
[2021-02-08] MEDS: cefTRIAXone 1 GM in SODIUM CHLORIDE 0.9% MINIBAG 100 ML IV SCH (08:47)
[2021-02-08] MEDS: SODIUM CHLORIDE FLUSH 0.9% 10 ML SYRINGE IVP SCH ×3 (08:51→23:44)
[2021-02-08] MEDS: INSULIN ASPART 300 UNIT/3 ML PEN SUBQ SCH ×7 (08:51→21:04)
[2021-02-08] MEDS: REMDESIVIR 100MG VIAL 100 MG in SODIUM CHLORIDE 0.9% 100ML 100 ML IV SCH (10:25)
[2021-02-08] MEDS: polyethylene glycoL 3350 17 GM PACKET PO SCH (10:26)
[2021-02-08] MEDS: AZITHROMYCIN INJ 500 MG in SODIUM CHLORIDE 0.9% 250 ML IV SCH (11:31)
[2021-02-08] MEDS: METOPROLOL SUCCINATE 50 MG TABLET PO SCH ×2 (11:32→21:01)
[2021-02-08] MEDS: DOCUSATE SODIUM 250 MG CAPSULE PO SCH (12:16)
[2021-02-08] MEDS ORDERED: AZITHROMYCIN 250 MG TABLET PO STA (13:18)
[2021-02-08] MEDS ORDERED: INSULIN GLARGINE 300 UNIT/3 ML PEN SUBQ SCH (21:00)
[2021-02-09] MEDS: ACETAMINOPHEN 325 MG TABLET PO PRN ×3 (01:51→18:06)
[2021-02-09 05:14] LABS: BASOPHILS % (AUTO) 0.2 %; HCT - HEMATOCRIT 45.2 % (37.0-47.0); HGB - HEMOGLOBIN 14.7 g/dL (12.0-16.0); LYMPHOCYTES # (AUTO) 0.6 10^3/uL (1.5-3.5); LYMPHOCYTES % (AUTO) 4.5 %; MEAN CORPUSCULAR HEMOGLOBIN 32.5 pg (27.0-31.0); MEAN CORPUSCULAR HGB CONC 32.5 g/dL (32.0-36.0); MEAN CORPUSCULAR VOLUME 99.8 fL (81.0-99.0); MEAN PLATELET VOLUME 10.3 fL (7.9-10.8); MONOCYTES # (AUTO) 0.6 10^3/uL (0.0-1.0); MONOCYTES % (AUTO) 4.6 %; NEUTROPHILS # (AUTO) 11.8 10^3/uL (1.5-6.6); NEUTROPHILS % (AUTO) 89.6 %; PLT - PLATELET COUNT 228 10^3/uL (130-450); RED BLOOD COUNT 4.53 10^6/uL (4.20-5.40); RED CELL DISTRIBUTION WIDTH 13.1 % (12.0-15.0); WHITE BLOOD COUNT 13.2 x10^3/uL (4.8-10.8)
[2021-02-09 05:24] LABS: CALCIUM 8.5 mg/dL (8.5-10.3); CREATININE 1.3 mg/dL (0.4-1.0)
[2021-02-09] MEDS: IBUPROFEN 600 MG TABLET PO SCH ×3 (05:54→18:06)
[2021-02-09] MEDS: FUROSEMIDE 40 MG/4 ML VIAL IVP SCH (05:54)
[2021-02-09] MEDS: methylPREDNISolone SUCCINATE 40 MG/ML VIAL IVP SCH (05:54)
[2021-02-09] MEDS: SODIUM CHLORIDE FLUSH 0.9% 10 ML SYRINGE IVP PRN (05:55)
[2021-02-09] MEDS: SODIUM CHLORIDE FLUSH 0.9% 10 ML SYRINGE IVP SCH ×2 (05:55→16:56)
[2021-02-09] MEDS: INSULIN ASPART 300 UNIT/3 ML PEN SUBQ SCH ×6 (08:01→20:20)
[2021-02-09] MEDS: guaiFENesin 600 MG TABLET PO SCH ×2 (08:49→20:20)
[2021-02-09] MEDS: DOCUSATE SODIUM 250 MG CAPSULE PO SCH (08:49)
[2021-02-09] MEDS: SPIRONOLACTONE 25 MG TABLET PO SCH (08:49)
[2021-02-09] MEDS: AMIODARONE 200 MG TABLET PO SCH (08:49)
[2021-02-09] MEDS: METOPROLOL SUCCINATE 50 MG TABLET PO SCH ×2 (08:50→20:22)
[2021-02-09] MEDS: cefTRIAXone 1 GM in SODIUM CHLORIDE 0.9% MINIBAG 100 ML IV SCH (08:51)
[2021-02-09] MEDS: polyethylene glycoL 3350 17 GM PACKET PO SCH (08:52)
[2021-02-09] MEDS ORDERED: FUROSEMIDE 40 MG TABLET PO SCH (09:00)
[2021-02-09] MEDS: APIXABAN 5 MG TABLET PO SCH ×2 (09:01→20:20)
[2021-02-09] MEDS: REMDESIVIR 100MG VIAL 100 MG in SODIUM CHLORIDE 0.9% 100ML 100 ML IV SCH (09:50)
[2021-02-09] MEDS: lisinopriL 5 MG TABLET PO SCH (09:50)
[2021-02-09] MEDS ORDERED: PANTOPRAZOLE 40 MG TABLET PO STA (11:37)
--- NOTE | 2021-02-09 11:37 | PROVIDER PROGRESS NOTE ---
Subjective - Prog Note Date Prog Note Date: 02/09/21 - Subjective Subjective: She reports feeling worse today compared to yesterday. She complains of mild abdominal pain. She reports she not had a bowel movement in quite a few days which is not unusual for her. She feels like her breathing is relatively stable although may be slightly worse today. She does want to go home but understands that she may need to stay given she feels worse. She also complains of chest pressure which has been present for about 40 hours. Current Medications - Current Medications Current Medications: Active Medications Acetaminophen (Acetaminophen 325 Mg Tablet) 650 mg PO Q4HR PRN PRN Reason: Pain 1 to 4 Last Admin: 02/09/21 08:52 Dose: 650 mg Documented by: Albuterol (Albuterol 1 Puff) 2 puffs INH Q4H PRN PRN Reason: Wheezing Last Admin: 02/08/21 07:38 Dose: 2 puffs Documented by: Amiodarone HCl (Amiodarone 200 Mg Tablet) 100 mg PO DAILY [facility] Last Admin: 02/09/21 08:49 Dose: 100 mg Documented by: Apixaban (Apixaban 5 Mg Tablet) 5 mg PO BID [facility] Last Admin: 02/09/21 09:01 Dose: 5 mg Documented by: Docusate Sodium (Docusate Sodium 250 Mg Capsule) 250 - 500 mg PO DAILY [facility] Last Admin: 02/09/21 08:49 Dose: 250 mg Documented by: Furosemide (Furosemide 40 Mg Tablet) 40 mg PO BIDDIURETIC ROMAN Guaifenesin (Guaifenesin 600 Mg Tablet) 600 mg PO BID [facility] Last Admin: 02/09/21 08:49 Dose: 600 mg Documented by: Ceftriaxone Sodium 1 gm/ (Sodium Chloride) 100 mls @ 200 mls/hr IV DAILY ROMAN Stop: 02/10/21 09:29 Last Infusion: 02/09/21 09:25 Dose: Infused Documented by: Ibuprofen (Ibuprofen 600 Mg Tablet) 600 mg PO Q6HR [facility] Last Admin: 02/09/21 11:37 Dose: 600 mg Documented by: Insulin Aspart (Insulin Aspart 300 Unit/3 Ml Pen) 3 - 11 unit SUBQ 0800,1200, 1700,2100 ROMAN; Protocol Last Admin: 02/09/21 11:37 Dose: 7 unit Documented by: Insulin Aspart (Insulin Aspart 300 Unit/3 Ml Pen) 10 unit SUBQ TIDWM [facility] Last Admin: 02/09/21 11:38 Dose: 10 unit Documented by: Insulin Glargine (Insulin Glargine 300 Unit/3 Ml Pen) 18 unit SUBQ QPM [facility] Last Admin: 02/08/21 21:03 Dose: 18 unit Documented by: Lisinopril (Lisinopril 5 Mg Tablet) 5 mg PO DAILY [facility] Last Admin: 02/09/21 09:50 Dose: 5 mg Documented by: Metoprolol Succinate (Metoprolol Succinate 50 Mg Tablet) 100 mg PO BID [facility] Last Admin: 02/09/21 08:50 Dose: 100 mg Documented by: Nitroglycerin (Nitroglycerin Sl 0.4 Mg Tablet) 0.4 mg SL Q5MIN PRN PRN Reason: Chest Pain Last Admin: 02/08/21 00:19 Dose: 0.4 mg Documented by: Ondansetron HCl (Ondansetron 4 Mg/2 Ml Vial) 4 mg IVP Q6HR PRN PRN Reason: Nausea / Vomiting Polyethylene Glycol (Polyethylene Glycol 3350 17 Gm Packet) 17 gm PO DAILY [facility] Last Admin: 02/09/21 08:52 Dose: Not Given Documented by: Prochlorperazine Edisylate (Prochlorperazine 10 Mg/2 Ml Vial) 10 mg IVP Q6HR PRN PRN Reason: Nausea / Vomiting Fluticasone/Salmeterol (Fluticasone/Salmeterol 250/50 Inhaler) 1 puffs INH BID [facility] Last Admin: 02/08/21 21:01 Dose: 1 puffs Documented by: Sodium Chloride (Sodium Chloride Flush 0.9% 10 Ml Syringe) 10 ml IVP PRN PRN PRN Reason: NEEDED PER PROVIDER ORDERS Last Admin: 02/09/21 05:55 Dose: 10 ml Documented by: Sodium Chloride (Sodium Chloride Flush 0.9% 10 Ml Syringe) 10 ml IVP 0100,0 900,1700 [facility] Last Admin: 02/09/21 05:55 Dose: 10 ml Documented by: Spironolactone (Spironolactone 25 Mg Tablet) 25 mg PO DAILY [facility] Last Admin: 02/09/21 08:49 Dose: 25 mg Documented by: Furosemide 40 mg PO BID 09/07/20 Metoprolol Succinate [Toprol Xl] 100 mg PO BID 09/07/20 Apixaban [Eliquis] 5 mg PO BID 10/24/20 Amiodarone [Pacerone] 100 mg PO DAILY 02/04/21 Loratadine [Claritin] 10 mg PO DAILY 02/04/21 Objective - Vital Signs/Intake & Output Reviewed Vital Signs: Yes Vital Signs: Vital Signs x48h Temp Pulse Resp BP Pulse Ox 02/09/21 07:59 36.8 C 60 20 118/48 L 97 Intake & Output: Intake & Output 02/06/21 02/07/21 02/08/21 02/09/21 23:59 23:59 23:59 23:59 Intake Total 1260 1940 3547.205 1664 Output Total 600 2125 4700 1300 Balance 998 -604 -2274.833 -270 - Objective General Appearance: positive: No acute distress, Alert Eyes Bilateral: positive: Normal inspection, Conjunctivae nml ENT: positive: ENT inspection nml, Other (Nasal cannula in place.) Neck: positive: Nml inspection Respiratory: positive: Wheezes (Faint expiratory wheezes.) Cardiovascular: positive: Regular rate & rhythm. negative: Tachycardia, Systolic murmur Abdomen: positive: Nml bowel sounds, No distention, Tenderness (Diffuse tenderness.). negative: Guarding, Rebound Skin: positive: Warm, Dry Extremities: positive: Pedal edema (Trace edema in bilateral lower extremities.) Neurologic/Psychiatric: positive: Motor nml. negative: Disoriented to person, Disoriented to place - Lab Results Fish Bones: 02/09/21 04:50 02/09/21 04:50 Other Labs: Lab Results x24hrs 02/09/21 02/09/21 02/09/21 Range/Units 11:23 07:55 04:50 WBC (4.8-10.8) x10^3/uL RBC (4.20-5.40) 10^6/uL Hgb (12.0-16.0) g/dL Hct (37.0-47.0) % MCV (81.0-99.0) fL MCH (27.0-31.0) pg MCHC (32.0-36.0) g/dL RDW (12.0-15.0) % Plt Count (130-450) 10^3/uL MPV (7.9-10.8) fL Neut # (Auto) (1.5-6.6) 10^3/uL Lymph # (Auto) (1.5-3.5) 10^3/uL [place] # (Auto) (0.0-1.0) 10^3/uL Eos # (Auto) (0.0-0.7) 10^3/uL Baso # (Auto) (0.0-0.1) 10^3/uL Absolute Nucleated RBC x10^3/uL Nucleated RBC % /100WBC Sodium (135-145) mmol/L Potassium (3.5-5.0) mmol/L Chloride (101-111) mmol/L Carbon Dioxide (21-32) mmol/L Anion Gap (6-13) BUN (6-20) mg/dL Creatinine (0.4-1.0) mg/dL Estimated GFR (MDRD) (>89) Glucose (70-100) mg/dL POC Whole Bld Glucose 244 H 263 H (70 - 100) mg/dL Calcium (8.5-10.3) mg/dL B-Natriuretic Peptide 177 H (5-100) pg/mL 02/09/21 02/09/21 02/08/21 Range/Units 04:50 04:50 20:30 WBC 13.2 H (4.8-10.8) x10^3/uL RBC 4.53 (4.20-5.40) 10^6/uL Hgb 14.7 (12.0-16.0) g/dL Hct 45.2 (37.0-47.0) % MCV 99.8 H (81.0-99.0) fL MCH 32.5 H (27.0-31.0) pg MCHC 32.5 (32.0-36.0) g/dL RDW 13.1 (12.0-15.0) % Plt Count 228 (130-450) 10^3/uL MPV 10.3 (7.9-10.8) fL Neut # (Auto) 11.8 H (1.5-6.6) 10^3/uL Lymph # (Auto) 0.6 L (1.5-3.5) 10^3/uL [place] # (Auto) 0.6 (0.0-1.0) 10^3/uL Eos # (Auto) 0.0 (0.0-0.7) 10^3/uL Baso # (Auto) 0.0 (0.0-0.1) 10^3/uL Absolute Nucleated RBC 0.00 x10^3/uL Nucleated RBC % 0.0 /100WBC Sodium 139 (135-145) mmol/L Potassium 4.0 (3.5-5.0) mmol/L Chloride 99 L (101-111) mmol/L Carbon Dioxide 30 (21-32) mmol/L Anion Gap 10.0 (6-13) BUN 41 H (6-20) mg/dL Creatinine 1.3 H (0.4-1.0) mg/dL Estimated GFR (MDRD) 42 L (>89) Glucose 309 H (70-100) mg/dL POC Whole Bld Glucose 311 H (70 - 100) mg/dL Calcium 8.5 (8.5-10.3) mg/dL B-Natriuretic Peptide (5-100) pg/mL 02/08/21 Range/Units 16:34 WBC (4.8-10.8) x10^3/uL RBC (4.20-5.40) 10^6/uL Hgb (12.0-16.0) g/dL Hct (37.0-47.0) % MCV (81.0-99.0) fL MCH (27.0-31.0) pg MCHC (32.0-36.0) g/dL RDW (12.0-15.0) % Plt Count (130-450) 10^3/uL MPV (7.9-10.8) fL Neut # (Auto) (1.5-6.6) 10^3/uL Lymph # (Auto) (1.5-3.5) 10^3/uL [place] # (Auto) (0.0-1.0) 10^3/uL Eos # (Auto) (0.0-0.7) 10^3/uL Baso # (Auto) (0.0-0.1) 10^3/uL Absolute Nucleated RBC x10^3/uL Nucleated RBC % /100WBC Sodium (135-145) mmol/L Potassium (3.5-5.0) mmol/L Chloride (101-111) mmol/L Carbon Dioxide (21-32) mmol/L Anion Gap (6-13) BUN (6-20) mg/dL Creatinine (0.4-1.0) mg/dL Estimated GFR (MDRD) (>89) Glucose (70-100) mg/dL POC Whole Bld Glucose 295 H (70 - 100) mg/dL Calcium (8.5-10.3) mg/dL B-Natriuretic Peptide (5-100) pg/mL ABX Reporting Has patient been on IV antibiotics over the past 48 hours?: No Assessment/Plan - Problem List (1) Acute on chronic respiratory failure with hypoxia Impression: This is resolved and she is now back to her baseline oxygen requirements of 2 L of oxygen. This was likely multifactorial related to a COPD exacerbation as well as acute on chronic systolic heart failure. There may have also been a component of COVID-19 infection. She has already completed 5 days of remdesivir. She was treated with IV diuretics and was transitioned to oral diuretics today. If she remains stable on oral diuretics and will look to discharge her tomorrow. We will perform an exercise desaturation test prior to discharge. Continue supplemental oxygen for goal saturation greater than 88%. (2) Acute exacerbation of COPD with asthma Impression: There was concern for acute exacerbation of her COPD contributing to her acute on chronic respiratory failure. She still has faint expiratory wheezes but this is improved. She already completed 5 days of Solu-Medrol so steroids to be discontinued. She also completed azithromycin but she does remain on ceftriaxone which she will continue to complete 5 days of therapy. Continue with her current inhaler therapy. (3) COVID-19 Impression: She is Covid positive and is vaccinated with [employer] vaccine. Her x- ray does not really suggest your typical viral pneumonia. She has already completed a course of remdesivir and she was on Solu-Medrol for her COPD which h ave since been discontinued. We will hold off steroids at this time given she is back to her baseline oxygen requirements. Continue contact precautions. (4) Chronic HFrEF (heart failure with reduced ejection fraction) Impression: This was initially in exacerbation but now appears to be stable. We have changed her to oral Lasix. She remains on Toprol and we have initiated lisinopril given her ejection fraction of 35 to 40%. 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 (5) Chest pain Impression: Initial EKG showed left bundle branch block troponins have been negative. Although low suspicion for ACS, we will repeat an EKG and recheck a troponin. Suspect her chest pain is likely related to her COPD dissipation and Covid infection. (6) Abdominal pain Impression: Her pain is generalized and I suspect related to constipation. We will order abdominal film to evaluate for potential obstruction. If there is no evidence obstruction will trial her on a laxative. If her pain persists then we can consider CT although I do not think this will show much at this time given she is tolerating a diet and appears relatively comfortable. We will also start her on Protonix given she had been on steroids and there could be a component of gastritis. (7) Chronic atrial fibrillation Impression: Currently paced. We will continue her metoprolol and Eliquis. (8) Steroid-induced diabetes mellitus Impression: Has been poorly controlled to the use of Solu-Medrol. She has been started on Lantus and NovoLog. Her blood glucose is improved today to the 200s now we have discontinued the Solu-Medrol. We discussed the diagnosis of steroid-induced diabetes and I recommended management with Metformin or insulin. She has declined both of these and prefers to follow-up with her primary care physician. I have asked her to at least monitor her blood glucose on discharge and she is agreeable to this. We will continue her current insulin regimen for the time being.
--- NOTE | 2021-02-09 12:14 | XRAY Report ---
PROCEDURE: Abdomen 1 View X-Ray INDICATIONS: Abdominal pain. Constipation. TECHNIQUE: 1 view of the abdomen were acquired. COMPARISON: 08/02/2019 FINDINGS: Exam is limited by patient body habitus. There is no obviously abnormally dilated loops of bowel. No gross evidence of pneumoperitoneum. No suspicious abdominal or pelvic calcification identified. IMPRESSION: Exam limited due to patient body habitus. No gross acute abnormality. Reviewed by: Gaston Thorne MD on 02/09/2021 12:13 PM PDT Approved by: Gaston Thorne MD on 02/09/2021 12:13 PM PDT Station ID: [id number]
[2021-02-09] MEDS: ALBUTEROL 1 PUFF INH PRN (13:00)
[2021-02-09] MEDS: FUROSEMIDE 40 MG TABLET PO SCH (13:46)
[2021-02-09] MEDS ORDERED: MAGNESIUM HYDROXIDE 2,400 MG/30 ML UDC PO ONE (17:05)
[2021-02-09] MEDS: FLUTICASONE/SALMETEROL 250/50 INHALER INH SCH ×2 (19:42→20:20)
[2021-02-09] MEDS ORDERED: BISACODYL 10 MG SUPP PR ONE (20:57)
[2021-02-10] MEDS: IBUPROFEN 600 MG TABLET PO SCH ×4 (02:18→20:57)
[2021-02-10] MEDS: SODIUM CHLORIDE FLUSH 0.9% 10 ML SYRINGE IVP SCH ×3 (02:18→15:56)
[2021-02-10] MEDS: FUROSEMIDE 40 MG TABLET PO SCH ×2 (06:57→14:11)
[2021-02-10 07:07] LABS: CALCIUM 8.5 mg/dL (8.5-10.3); CREATININE 1.1 mg/dL (0.4-1.0); MAGNESIUM 3.2 mg/dL (1.7-2.8)
[2021-02-10 07:13] LABS: BASOPHILS % (AUTO) 0.3 %; EOSINOPHILS % (AUTO) 0.2 %; HGB - HEMOGLOBIN 15.2 g/dL (12.0-16.0); LYMPHOCYTES # (AUTO) 2.2 10^3/uL (1.5-3.5); LYMPHOCYTES % (AUTO) 18.8 %; MEAN CORPUSCULAR HEMOGLOBIN 32.2 pg (27.0-31.0); MEAN CORPUSCULAR HGB CONC 32.3 g/dL (32.0-36.0); MEAN CORPUSCULAR VOLUME 99.6 fL (81.0-99.0); MEAN PLATELET VOLUME 10.7 fL (7.9-10.8); MONOCYTES % (AUTO) 8.7 %; NEUTROPHILS # (AUTO) 8.3 10^3/uL (1.5-6.6); NEUTROPHILS % (AUTO) 70.4 %; PLT - PLATELET COUNT 221 10^3/uL (130-450); RED BLOOD COUNT 4.72 10^6/uL (4.20-5.40); WHITE BLOOD COUNT 11.8 x10^3/uL (4.8-10.8)
[2021-02-10] MEDS: ALBUTEROL 1 PUFF INH PRN ×2 (07:33→22:25)
[2021-02-10] MEDS: FLUTICASONE/SALMETEROL 250/50 INHALER INH SCH ×2 (07:33→22:24)
[2021-02-10] MEDS: INSULIN ASPART 300 UNIT/3 ML PEN SUBQ SCH ×4 (08:17→20:46)
[2021-02-10] MEDS: DOCUSATE SODIUM 250 MG CAPSULE PO SCH (08:21)
[2021-02-10] MEDS: lisinopriL 5 MG TABLET PO SCH (08:22)
[2021-02-10] MEDS: AMIODARONE 200 MG TABLET PO SCH (08:23)
[2021-02-10] MEDS: guaiFENesin 600 MG TABLET PO SCH ×2 (08:24→20:46)
[2021-02-10] MEDS: METOPROLOL SUCCINATE 50 MG TABLET PO SCH ×2 (08:25→20:45)
[2021-02-10] MEDS: APIXABAN 5 MG TABLET PO SCH ×2 (08:25→20:46)
[2021-02-10] MEDS: SPIRONOLACTONE 25 MG TABLET PO SCH (08:25)
[2021-02-10] MEDS: polyethylene glycoL 3350 17 GM PACKET PO SCH (08:26)
[2021-02-10] MEDS ORDERED: IOVERSOL 320 100 ML VIAL IVP ONE (09:08)
[2021-02-10] MEDS ORDERED: IOVERSOL 320 50 ML VIAL ONE (09:23)
--- NOTE | 2021-02-10 10:45 | Discharge Plan ---
Discharge Plan Problem Reviewed?: Yes Disposition: Home, Self Care Condition: Stable Prescriptions: Metoprolol Succinate [Toprol Xl] 50 mg PO DAILY #30 tablet lisinopriL [Zestril] 2.5 mg PO DAILY #30 tablet Diet: Cardiac Activity Restrictions: Activity as Tolerated Instruction Topics: COPD, Heart Failure Meds Control, Heart Failure Dc Health Concerns: You were admitted to the hospital because of a COPD exacerbation likely due to COVID-19 infection. You were treated with steroids and antibiotics. We are also concerned that he may have been in heart failure and so we gave you IV Lasix. Your breathing has since improved and you are now back to baseline. We did do an ultrasound of your heart which showed that your ejection fraction is about 35%. You need to continue Lasix and metoprolol at home. Please take the new prescription of lisinopril. You will need to follow-up with your gas singer for further evaluation of this heart failure. We have decreased the dose of the metoprolol as your blood pressure has been low at times. Given you had nausea as well as abdominal pain, we ordered a CT scan which showed nonspecific edema in your abdomen. You have been able to tolerate a diet and finally had a bowel movement and so you are now stable for discharge. Plan of Treatment: The plan is to take your inhalers as previously prescribed. Please continue take your Lasix twice a day as well as metoprolol. Please begin to take lisinopril 2.55 mg every day. This is to help with your heart failure. Please now take metoprolol 50 mg daily instead of 100 mg twice daily. Because of your COVID-19 infection, you should still quarantine and self isolate for another week as you are still contagious. Care Goals: The goal is to prevent further exacerbations of your COPD. Assessment: The patient expressed understanding of the treatment plan. Additional Instructions or Follow Up instructions: Please follow-up with your primary care for in 1 week. You will also need follow-up with your gas singer. Follow-Up Care: [facility], [facility] No Smoking: If you smoke, Please STOP! Call for help. Follow-up with: Rohini Ceron PA-C [Primary Care Provider] -
--- NOTE | 2021-02-10 13:02 | CT Report ---
PROCEDURE: Abdomen/Pelvis WO INDICATIONS: Abdominal pain, vomiting, constipation TECHNIQUE: Noncontrast 5 mm thick sections acquired from the diaphragms to the symphysis. 5 mm coronal and sagi ttal reformats were then performed. For radiation dose reduction, the following was used: automated exposure control, adjustment of mA and/or kV according to patient size. COMPARISON: None. FINDINGS: Image quality: Excellent. ABDOMEN: Lung bases: Lung bases are clear. Heart size is normal. Solid organs: Evaluation is limited due to the lack of IV contrast. Grossly unremarkable unenhanced l iver, spleen, adrenal glands, and pancreas. Status post cholecystectomy. Peritoneum and bowel: There is no abnormally dilated or thickened loops of bowel. There is no pericol onic fat stranding. There is diffuse edema in the central and left mesentery, nonspecific. Nodes and vessels: No retroperitoneal or mesenteric adenopathy by size criteria. Aorta and inferior vena cava are normal in caliber. Miscellaneous: No ventral hernias. PELVIS: Genitourinary: Bladder wall thickness is normal. Status post hysterectomy. Miscellaneous: No inguinal hernias or adenopathy. Bones: No suspicious bony lesions. No vertebral body compression fractures. IMPRESSION: Edema in the central and left mesentery is of uncertain clinical significance. This could indicate an acute infectious or inflammatory small bowel process versus mesenteric radiculitis. There are no enl arged mesenteric lymph nodes to suggest mesenteric lymphoma. Reviewed by: Gaston Thorne MD on 02/10/2021 1:00 PM PDT Approved by: Gaston Thorne MD on 02/10/2021 1:00 PM PDT Station ID: [id number]
--- NOTE | 2021-02-10 17:27 | PROVIDER PROGRESS NOTE ---
Subjective - Prog Note Date Prog Note Date: 02/10/21 - Subjective Subjective: She feels improved compared to yesterday afternoon but did have emesis last night and again today after lunch. She states she still abdominal pain although this feels better. Still no bowel movement. She feels her breathing is "okay." She feels close to her baseline. Current Medications - Current Medications Current Medications: Active Medications Acetaminophen (Acetaminophen 325 Mg Tablet) 650 mg PO Q4HR PRN PRN Reason: Pain 1 to 4 Last Admin: 02/09/21 18:06 Dose: 650 mg Documented by: Albuterol (Albuterol 1 Puff) 2 puffs INH Q4H PRN PRN Reason: Wheezing Last Admin: 02/10/21 07:33 Dose: 2 puffs Documented by: Amiodarone HCl (Amiodarone 200 Mg Tablet) 100 mg PO DAILY [facility] Last Admin: 02/10/21 08:23 Dose: 100 mg Documented by: Apixaban (Apixaban 5 Mg Tablet) 5 mg PO BID [facility] Last Admin: 02/10/21 08:25 Dose: 5 mg Documented by: Cefuroxime Axetil (Cefuroxime Axetil 250 Mg Tablet) 500 mg PO BID [facility] Last Admin: 02/10/21 09:26 Dose: 500 mg Documented by: Docusate Sodium (Docusate Sodium 250 Mg Capsule) 250 - 500 mg PO DAILY [facility] Last Admin: 02/10/21 08:21 Dose: 250 mg Documented by: Furosemide (Furosemide 40 Mg Tablet) 40 mg PO BIDDIURETIC [facility] Last Admin: 02/10/21 14:11 Dose: 40 mg Documented by: Guaifenesin (Guaifenesin 600 Mg Tablet) 600 mg PO BID [facility] Last Admin: 02/10/21 08:24 Dose: 600 mg Documented by: Ibuprofen (Ibuprofen 600 Mg Tablet) 600 mg PO Q6H [facility] Last Admin: 02/10/21 14:11 Dose: 600 mg Documented by: Insulin Aspart (Insulin Aspart 300 Unit/3 Ml Pen) 3 - 11 unit SUBQ 0800,1200,1700,2100 [facility]; Protocol Last Admin: 02/10/21 12:07 Dose: 5 unit Documented by: Lisinopril (Lisinopril 5 Mg Tablet) 5 mg PO DAILY [facility] Last Admin: 02/10/21 08:22 Dose: 5 mg Documented by: Metoprolol Succinate (Metoprolol Succinate 50 Mg Tablet) 100 mg PO BID [facility] Last Admin: 02/10/21 08:25 Dose: 100 mg Documented by: Nitroglycerin (Nitroglycerin Sl 0.4 Mg Tablet) 0.4 mg SL Q5MIN PRN PRN Reason: Chest Pain Last Admin: 02/08/21 00:19 Dose: 0.4 mg Documented by: Ondansetron HCl (Ondansetron 4 Mg/2 Ml Vial) 4 mg IVP Q6HR PRN PRN Reason: Nausea / Vomiting Last Admin: 02/09/21 18:11 Dose: 4 mg Documented by: Polyethylene Glycol (Polyethylene Glycol 3350 17 Gm Packet) 17 gm PO DAILY [facility] Last Admin: 02/10/21 08:26 Dose: Not Given Documented by: Prochlorperazine Edisylate (Prochlorperazine 10 Mg/2 Ml Vial) 10 mg IVP Q6HR P RN PRN Reason: Nausea / Vomiting Last Admin: 02/09/21 20:23 Dose: 10 mg Documented by: Fluticasone/Salmeterol (Fluticasone/Salmeterol 250/50 Inhaler) 1 puffs INH BID [facility] Last Admin: 02/10/21 07:33 Dose: 1 puffs Documented by: Sodium Chloride (Sodium Chloride Flush 0.9% 10 Ml Syringe) 10 ml IVP PRN PRN PRN Reason: NEEDED PER PROVIDER ORDERS Last Admin: 02/09/21 05:55 Dose: 10 ml Documented by: Sodium Chloride (Sodium Chloride Flush 0.9% 10 Ml Syringe) 10 ml IVP 0100,0900,1700 [facility] Last Admin: 02/10/21 15:56 Dose: Not Given Documented by: Spironolactone (Spironolactone 25 Mg Tablet) 25 mg PO DAILY [facility] Last Admin: 02/10/21 08:25 Dose: 25 mg Documented by: Furosemide 40 mg PO BID 09/07/20 Metoprolol Succinate [Toprol Xl] 100 mg PO BID 09/07/20 Apixaban [Eliquis] 5 mg PO BID 10/24/20 Amiodarone [Pacerone] 100 mg PO DAILY 02/04/21 Loratadine [Claritin] 10 mg PO DAILY 02/04/21 Objective - Vital Signs/Intake & Output Reviewed Vital Signs: Yes Vital Signs: Vital Signs x48h Temp Pulse Resp BP BP Pulse Ox 02/10/21 15:49 36.5 C 61 18 104/47 L 93 02/10/21 13:22 56 L 17 108/44 L 02/10/21 13:04 36.4 C L 63 20 73/42 L 95 Intake & Output: Intake & Output 02/07/21 02/08/21 02/09/21 02/10/21 23:59 23:59 23:59 23:59 Intake Total 1940 8505.603 3642 1550 Output Total 2125 4700 3000 2575 Balance -185 -0568.833 -3650 -1025 - Objective General Appearance: positive: Alert, Mild distress Eyes Bilateral: positive: Normal inspection, Conjunctivae nml ENT: positive: ENT inspection nml, Other (Nasal cannula in place.) Neck: positive: Nml inspection Respiratory: positive: No respiratory distress, Wheezes (Faint expiratory wheezes.) Cardiovascular: negative: Irregularly irregular, Tachycardia, Systolic murmur Abdomen: positive: No distention, Tenderness (Mild diffuse tenderness.). negative: Non-tender, Guarding, Rebound Skin: positive: Warm, Dry Extremities: positive: Pedal edema (Trace edema.) Neurologic/Psychiatric: negative: Disoriented to person, Disoriented to place - Lab Results Fish Bones: 02/10/21 03:44 02/10/21 03:44 Other Labs: Lab Results x24hrs 02/10/21 02/10/21 02/10/21 Range/Units 17:04 11:36 07:36 WBC (4.8-10.8) x10^3/uL RBC (4.20-5.40) 10^6/uL Hgb (12.0-16.0) g/dL Hct (37.0-47.0) % MCV (81.0-99.0) fL MCH (27.0-31.0) pg MCHC (32.0-36.0) g/dL RDW (12.0-15.0) % Plt Count (130-450) 10^3/uL MPV (7.9-10.8) fL Neut # (Auto) (1.5-6.6) 10^3/uL Lymph # (Auto) (1.5-3.5) 10^3/uL [place] # (Auto) (0.0-1.0) 10^3/uL Eos # (Auto) (0.0-0.7) 10^3/uL Baso # (Auto) (0.0-0.1) 10^3/uL Absolute Nucleated RBC x10^3/uL Nucleated RBC % /100WBC Sodium (135-145) mmol/L Potassium (3.5-5.0) mmol/L Chloride (101-111) mmol/L Carbon Dioxide (21-32) mmol/L Anion Gap (6-13) BUN (6-20) mg/dL Creatinine (0.4-1.0) mg/dL Estimated GFR (MDRD) (>89) Glucose (70-100) mg/dL POC Whole Bld Glucose 256 H 204 H 177 H (70 - 100) mg/dL Calcium (8.5-10.3) mg/dL Magnesium (1.7-2.8) mg/dL 02/10/21 02/10/21 02/09/21 Range/Units 03:44 03:44 20:14 WBC 11.8 H (4.8-10.8) x10^3/uL RBC 4.72 (4.20-5.40) 10^6/uL Hgb 15.2 (12.0-16.0) g/dL Hct 47.0 (37.0-47.0) % MCV 99.6 H (81.0-99.0) fL MCH 32.2 H (27.0-31.0) pg MCHC 32.3 (32.0-36.0) g/dL RDW 13.0 (12.0-15.0) % Plt Count 221 (130-450) 10^3/uL MPV 10.7 (7.9-10.8) fL Neut # (Auto) 8.3 H (1.5-6.6) 10^3/uL Lymph # (Auto) 2.2 (1.5-3.5) 10^3/uL [place] # (Auto) 1.0 (0.0-1.0) 10^3/uL Eos # (Auto) 0.0 (0.0-0.7) 10^3/uL Baso # (Auto) 0.0 (0.0-0.1) 10^3/uL Absolute Nucleated RBC 0.00 x10^3/uL Nucleated RBC % 0.0 /100WBC Sodium 143 (135-145) mmol/L Potassium 4.0 (3.5-5.0) mmol/L Chloride 99 L (101-111) mmol/L Carbon Dioxide 34 H (21-32) mmol/L Anion Gap 10.0 (6-13) BUN 42 H (6-20) mg/dL Creatinine 1.1 H (0.4-1.0) mg/dL Estimated GFR (MDRD) 51 L (>89) Glucose 194 H (70-100) mg/dL POC Whole Bld Glucose 255 H (70 - 100) mg/dL Calcium 8.5 (8.5-10.3) mg/dL Magnesium 3.2 H (1.7-2.8) mg/dL - Diagnostic Imaging Diagnostic Imaging Results: positive: Final report reviewed Assessment/Plan - Problem List (1) Abdominal pain Impression: Now having emesis and her abdominal pain persists. Although low suspicion for bowel obstruction given the unremarkable abdominal film yesterday, we will pro ceed with a CT of the abdomen and pelvis. She has no IV access and given treatment difficult stick and the plan is to discharge her tomorrow, we will obtain this with just p.o. contrast. This ultimately ended up showing nonspecific mesenteric edema. Given she had emesis with lunch, we will observe for 1 more night and continue with antiemetics and pain control with plan to discharge tomorrow. (2) Acute on chronic respiratory failure with hypoxia Impression: She is back to her baseline oxygen requirements of 2 L. This was likely secondary to COPD dissipation as well as acute on chronic systolic heart failure. She completed treatment with remdesivir and received sign Medrol for 5 days. She is now on oral diuretics. We will perform an exercise desaturation test and then discharge her home tomorrow. (3) Acute exacerbation of COPD with asthma Impression: This is resolved. She completed 5 days of Solu-Medrol as well as the azithromycin. Today's last day of Ceftin. (4) COVID-19 Impression: She is Covid positive and is vaccinated with [employer] vaccine. Her x- ray does not really suggest your typical viral pneumonia. She has already completed a course of remdesivir and she was on Solu-Medrol for her COPD which have since been discontinued. We will hold off steroids at this time given she is back to her baseline oxygen requirements. Continue contact precautions. (5) Chronic HFrEF (heart failure with reduced ejection fraction) Impression: Impression: This was initially in exacerbation but now appears to be stable. We have changed her to oral Lasix. She remains on Toprol and we have initiated mitra nopril given her ejection fraction of 35 to 40%. She will need outpatient follow-up with her machine buffer on discharge. (6) Chest pain Impression: This is likely musculoskeletal or pleuritic in nature. Low suspicion for ACS given unremarkable EKG and troponins. (7) Chronic atrial fibrillation Impression: Currently paced. We will continue her metoprolol and Eliquis. (8) Steroid-induced diabetes mellitus Impression: Her blood glucose is improved since discontinuing the steroids. We also stopped her Lantus given she will not be on insulin on discharge as she declined this. Her blood glucose has varied from 170 to 210s. We will discussed once again with her regarding the importance of Metformin and insulin but she has declined these therapies in the past and she prefers to follow-up with her primary care physician.
[2021-02-11] MEDS: IBUPROFEN 600 MG TABLET PO SCH ×2 (02:36→08:41)
[2021-02-11] MEDS: SODIUM CHLORIDE FLUSH 0.9% 10 ML SYRINGE IVP SCH ×2 (05:12→08:48)
[2021-02-11] MEDS: ACETAMINOPHEN 325 MG TABLET PO PRN (05:29)
[2021-02-11] MEDS ORDERED: FUROSEMIDE 40 MG TABLET PO SCH (07:11)
[2021-02-11 07:49] LABS: BASOPHILS % (AUTO) 0.2 %; EOSINOPHILS # (AUTO) 0.3 10^3/uL (0.0-0.7); EOSINOPHILS % (AUTO) 2.4 %; HCT - HEMATOCRIT 45.7 % (37.0-47.0); HGB - HEMOGLOBIN 15.2 g/dL (12.0-16.0); LYMPHOCYTES # (AUTO) 2.5 10^3/uL (1.5-3.5); LYMPHOCYTES % (AUTO) 20.6 %; MEAN CORPUSCULAR HGB CONC 33.3 g/dL (32.0-36.0); MEAN CORPUSCULAR VOLUME 99.3 fL (81.0-99.0); MEAN PLATELET VOLUME 10.2 fL (7.9-10.8); MONOCYTES # (AUTO) 0.9 10^3/uL (0.0-1.0); MONOCYTES % (AUTO) 7.7 %; NEUTROPHILS # (AUTO) 8.2 10^3/uL (1.5-6.6); NEUTROPHILS % (AUTO) 67.9 %; PLT - PLATELET COUNT 208 10^3/uL (130-450); RED CELL DISTRIBUTION WIDTH 12.8 % (12.0-15.0)
[2021-02-11 07:51] LABS: CALCIUM 8.4 mg/dL (8.5-10.3); CREATININE 1.2 mg/dL (0.4-1.0); POTASSIUM 3.9 mmol/L (3.5-5.0)
[2021-02-11] MEDS: ALBUTEROL 1 PUFF INH PRN (07:55)
[2021-02-11] MEDS: FLUTICASONE/SALMETEROL 250/50 INHALER INH SCH (07:56)
[2021-02-11] MEDS: DOCUSATE SODIUM 250 MG CAPSULE PO SCH (08:42)
[2021-02-11] MEDS: APIXABAN 5 MG TABLET PO SCH (08:43)
[2021-02-11] MEDS: AMIODARONE 200 MG TABLET PO SCH (08:43)
[2021-02-11] MEDS: guaiFENesin 600 MG TABLET PO SCH (08:43)
[2021-02-11] MEDS: polyethylene glycoL 3350 17 GM PACKET PO SCH (08:47)
[2021-02-11] MEDS: METOPROLOL SUCCINATE 50 MG TABLET PO SCH (08:47)
[2021-02-11] MEDS: INSULIN ASPART 300 UNIT/3 ML PEN SUBQ SCH ×2 (08:49→12:16)
[2021-02-11] MEDS ORDERED: lisinopriL 5 MG TABLET PO SCH (09:00)
[2021-02-11] MEDS: SPIRONOLACTONE 25 MG TABLET PO SCH (09:25)
[2021-02-11 11:10] VITALS: BP 113/54
--- NOTE | 2021-02-11 11:23 | DISCHARGE SUMMARY ---
"Discharge Summary Admit Date: 02/04/21 Discharge Date: 02/11/21 Discharging Provider: Nikhil Cespedes Primary Care Provider: Rohini Ceron Code Status: Attempt Resuscitation Condition at Discharge: Stable Discharge Disposition: 01 Home, Self Care - DIAGNOSES Admission Diagnoses: Acute exacerbation of COPD with asthma COVID-19 Chest pain History of coronary artery disease History of cardiac arrhythmia Hypertension Discharge Diagnoses with Status of Each Condition: Abdominal pain - improved. Acute on chronic respiratory failure with hypoxia - resolved. Acute exacerbation of COPD - resolved. COVID-19 - stable. Chronic HFrEF - stable. Chest pain - resolved. Chronic atrial fibrillation - stable. Steroid-induced diabetes mellitus - stable. - HPI History of Present Illness: H&P per CHIQUI Alvarez: This is a 55-years old female with a past med medical history significant for hypertension, hyperlipidemia, coronary artery disease, congenital heart failure, history of KS, atrial fibrillation, heart murmur, arrhythmia, asthma, COPD, emphysema, previous pneumonia, shortness of breathing, headache, GERD, urinary frequency, chronic vision loss, chronic sinusitis, chronic hearing loss who present ER complain of Shortness of breathing, wheezy, mild chest pain. Patient reported she feel short of breathing, whole body ache, no energy, wheezing, cough, also she complained of mild chest pain but she denies fever, chill. She reported she have COPD with oxygen in the home as needed, she reported she is a previous cigarette smoker. Patient also report she had a pacemaker with ICD. She also was recently tested COVID-19 positive. She also reported she was vaccinated for COVID-19. VBG testing in the ER show PCO2 58, pH 7.34. Troponin test 1.3 is negative for acute KS. BNP 131.EKG show left bundle branch block which is different from her previous RBBB. In the ER, patient is afebrile, with tachycardia and tachypnea on 93% to 100% oxygen saturation on room air. Chest x- ray show pulmonary vascular congestion or early CHF, bibasilar atelectasis. Discussed the care goal with the patient, patient requests full code. - CONSULTS | PROCEDURES Procedures: Echocardiogram showed an ejection fraction of 35 to 40%. Pacemaker lead seen in the right atrium and right ventricle. No significant cardiac valve disease. - HOSPITAL COURSE Hospital Course: She was admitted for acute on chronic respiratory failure secondary to COPD exacerbation which was felt to be triggered by COVID-19. She was treated empirically with Solu-Medrol, ceftriaxone, azithromycin. She was also started on remdesivir which she completed 5 days of. Her respiratory status improved over the next 3 days but she remained hypoxic and it was felt that there could be a component of acute on chronic congestive heart failure with reduced ej ection fraction. An echocardiogram was obtained which showed her EF was decreased at 35%. She was started on IV diuretics with further improvement in her oxygenation. She was then transition to oral diuretics. She completed 5 days of antibiotics, remdesivir, and Solu-Medrol. She returned back to her baseline oxygen requirements. The plan was to discharge her home but then she developed nausea/vomiting as well as abdominal pain. EKG and troponins were rechecked and these were unremarkable. We initially ordered an abdominal film which was unremarkable. She was observed again overnight but continued to have emesis and so a CT of the abdomen pelvis was obtained which showed nonspecific mesenteric edema. She felt that her vomiting had improved and her pain was tolerable that she requested to go home. She felt that she can continue her recovery at home. We did adjust her medications during his hospitalization given her new heart failure. We decreased her Toprol to 50 mg daily for monitor milligrams twice daily due to borderline hypotension at times. She is also started on lisinopril 2.5 mg daily. She was asked to follow-up with her disciplinary hearing officer given the reduction in her ejection fraction and she will need a repeat echocardiogram down the road. She was asked to continue her diuretics as previously prescribed. She was referred to a CHF class. We did discuss managing her steroid-induced diabetes but she declined therapies including Metformin and insulin. She prefers to follow-up with her primary care physician. - ALLERGIES Allergies/Adverse Reactions: Allergies Allergy/AdvReac Type Severity Reaction Status Date / Time codeine [Codeine] Allergy Severe Swelling/Hi Verified 02/04/21 09:38 ves erythromycin base Allergy Severe Anaphylaxis Verified 02/04/21 09:38 [Erythromycin Base] gabapentin Allergy Severe Anaphylaxis Verified 02/04/21 09:38 Latex, Natural Rubber Allergy Severe Blisters Verified 02/04/21 09:38 pamabrom [From Midol] Allergy Severe Respiratory Verified 02/04/21 09:38 pyrilamine maleate * Allergy Severe Respiratory Verified 02/04/21 09:38 [From Midol] shellfish derived Allergy Severe Anaphylaxis Verified 02/04/21 09:38 venom-honey bee Allergy Severe Anaphylaxis Verified 02/04/21 09:38 [bee venom (honey bee)] chlorhexidine Allergy Intermediate Rash Verified 02/04/21 09:38 morphine Allergy Respiratory Verified 02/04/21 09:38 ondansetron Allergy Respiratory Verified 02/04/21 09:38 piperacillin [From Zosyn] AdvReac Rash Verified 02/04/21 09:38 tazobactam [From Zosyn] AdvReac Rash Verified 02/04/21 09:38 - MEDICATIONS Home Medications: Ambulatory Orders Medication Instructions Recorded Confirmed Furosemide 40 mg PO BID 09/07/20 02/04/21 Apixaban [Eliquis] 5 mg PO BID 10/24/20 02/04/21 Albuterol 2.5 mg INH Q4H PRN #14 units 10/29/20 02/04/21 Albuterol Sulfate [Proair Hfa 2 puffs INH Q4H PRN #1 inh 10/29/20 02/04/21 Inhaler] Budesonide [Pulmicort] 0.5 mg INH BID #14 units 10/29/20 02/04/21 Formoterol Fumarate [Perforomist] 20 mcg IH BID #10 ml 10/29/20 02/04/21 Spironolactone [Aldactone] 25 mg PO DAILY #30 tablet 10/29/20 02/04/21 Amiodarone [Pacerone] 100 mg PO DAILY 02/04/21 02/04/21 Loratadine [Claritin] 10 mg PO DAILY 02/04/21 02/04/21 Metoprolol Succinate [Toprol Xl] 50 mg PO DAILY #30 tablet 02/11/21 lisinopriL [Zestril] 2.5 mg PO DAILY #30 tablet 02/11/21 - PHYSICAL EXAM AT DISCHARGE General Appearance: positive: No acute distress, Alert Eyes Bilateral: positive: Normal inspection, Conjunctivae nml ENT: positive: ENT inspection nml, Other (Nasal cannula in place.) Neck: positive: Nml inspection Respiratory: positive: No respiratory distress, Wheezes (Faint expiratory wheezes.) Cardiovascular: positive: Regular rate & rhythm. negative: Tachycardia, Systolic murmur Abdomen: positive: Nml bowel sounds, Tenderness (Mild diffuse tenderness). n egative: Guarding, Rebound Skin: positive: Warm, Dry Extremities: positive: Pedal edema (Trace edema in bilateral lower extremities.). negative: No pedal edema Neurologic/Psychiatric: positive: Motor nml. negative: Disoriented to person, Disoriented to time Physical Exam Other/Comments: Vital Signs - 24 hr 02/10/21 02/10/21 02/11/21 20:43 22:25 00:49 Temperature 36.5 C Heart Rate 59 L Heart Rate [ Brachial] Heart Rate [ 59 L 68 Radial] Respiratory 18 18 20 Rate Blood Pressure 99/43 L [Left Radial artery] Blood Pressure 110/38 L [Right Brachial artery] Blood Pressure [Right Radial artery] O2 Saturation 93 97 02/11/21 02/11/21 02/11/21 02:34 05:32 07:56 Temperature Heart Rate 72 Heart Rate [ 58 L 52 L Brachial] Heart Rate [ Radial] Respiratory 20 20 Rate Blood Pressure [Left Radial artery] Blood Pressure 100/40 L 96/43 L [Right Brachial artery] Blood Pressure [Right Radial artery] O2 Saturation 94 02/11/21 02/11/21 02/11/21 07:58 09:01 11:09 Temperature Heart Rate 84 Heart Rate [ Brachial] Heart Rate [ 50 L Radial] Respiratory 17 Rate Blood Pressure [Left Radial artery] Blood Pressure [Right Brachial artery] Blood Pressure 98/41 L 113/54 L [Right Radial artery] O2 Saturation 97 Oxygen O2 Source [With Activity] Room air O2 Source Nasal cannula - LABS Result Diagrams: 02/11/21 07:35 02/11/21 07:35 - DIAGNOSTIC IMAGING Diagnostic Imaging Results: Final report reviewed - FOLLOW UP Follow Up: She was asked to follow-up with her primary care physician in 1 week and to follow-up with her disciplinary hearing officer given her new heart failure with reduced ejec tion fraction. - TIME SPENT Time Spent in Discharge (Minutes): 35"
[2021-02-12] MEDS ORDERED: METOPROLOL SUCCINATE 50 MG TABLET PO SCH (09:00)
== END 2021-02-11 12:25 | disposition home or self-care (01) | DRG 177 ==
LOC: ED 09:22 → MS2 11:33 → OBSVTOIN 02-05 11:01
PROVIDERS: ADMIT Nurse Practitioner Gerontology; ATTEND Internal Medicine
PROC: XW033E5 Introduction of Remdesivir Anti-infective into Peripheral Vein, Percutaneous Approach, New Technology Group 5 (ICD-10-PCS; principal; 2021-02-05)
DX: U07.1 COVID-19 (principal); J96.91 Respiratory failure, unspecified with hypoxia; J96.21 Acute and chronic respiratory failure with hypoxia; I50.23 Acute on chronic systolic (congestive) heart failure; J45.901 Unspecified asthma with (acute) exacerbation; R73.9 Hyperglycemia, unspecified; I48.20 Chronic atrial fibrillation, unspecified; J43.9 Emphysema, unspecified; I48.91 Unspecified atrial fibrillation; I11.0 Hypertensive heart disease with heart failure; I44.7 Left bundle-branch block, unspecified; E09.65 Drug or chemical induced diabetes mellitus with hyperglycemia; T38.0X5A Adverse effect of glucocorticoids and synthetic analogues, initial encounter; I34.0 Nonrheumatic mitral (valve) insufficiency; R07.89 Other chest pain; R10.9 Unspecified abdominal pain; E78.5 Hyperlipidemia, unspecified; K21.9 Gastro-esophageal reflux disease without esophagitis; F10.21 Alcohol dependence, in remission; I25.10 Atherosclerotic heart disease of native coronary artery without angina pectoris; J32.9 Chronic sinusitis, unspecified; R35.0 Frequency of micturition; H54.7 Unspecified visual loss; F40.240 Claustrophobia; H91.90 Unspecified hearing loss, unspecified ear; Z96.659 Presence of unspecified artificial knee joint; Z99.81 Dependence on supplemental oxygen; I25.2 Old myocardial infarction; Z87.891 Personal history of nicotine dependence; Z87.01 Personal history of pneumonia (recurrent); Z79.01 Long term (current) use of anticoagulants; Z79.899 Other long term (current) drug therapy; Z95.0 Presence of cardiac pacemaker
CPT/HCPCS: 36415; 71045; 74018; 74176; 80048; 80061; 82803; 83036; 83735; 83880; 84484; 85025; 87631; 93005; 93306; 94640; 96374; 96375; 96376; 99285; A9270; C9399; G0378; J1815; 0202U; 83721

== ENCOUNTER 2021-03-15 09:33 | Inpatient (IN) | payer MEDICARE, MEDICAID ==
[2021-03-15 10:31] LABS: BASOPHILS # (AUTO) 0.1 10^3/uL (0.0-0.1); BASOPHILS % (AUTO) 0.4 %; EOSINOPHILS # (AUTO) 0.1 10^3/uL (0.0-0.7); EOSINOPHILS % (AUTO) 1.1 %; HCT - HEMATOCRIT 48.2 % (37.0-47.0); HGB - HEMOGLOBIN 15.6 g/dL (12.0-16.0); LYMPHOCYTES # (AUTO) 2.6 10^3/uL (1.5-3.5); MEAN CORPUSCULAR HEMOGLOBIN 32.6 pg (27.0-31.0); MEAN CORPUSCULAR HGB CONC 32.4 g/dL (32.0-36.0); MEAN CORPUSCULAR VOLUME 100.8 fL (81.0-99.0); MEAN PLATELET VOLUME 10.2 fL (7.9-10.8); MONOCYTES # (AUTO) 0.9 10^3/uL (0.0-1.0); MONOCYTES % (AUTO) 7.3 %; NEUTROPHILS # (AUTO) 8.5 10^3/uL (1.5-6.6); NEUTROPHILS % (AUTO) 69.5 %; PLT - PLATELET COUNT 216 10^3/uL (130-450); RED BLOOD COUNT 4.78 10^6/uL (4.20-5.40); RED CELL DISTRIBUTION WIDTH 12.6 % (12.0-15.0); WHITE BLOOD COUNT 12.2 x10^3/uL (4.8-10.8)
--- NOTE | 2021-03-15 10:42 | XRAY Report ---
PROCEDURE: Chest 1 View X-Ray INDICATIONS: Chest pain TECHNIQUE: One view of the chest was acquired. COMPARISON: February 05, 2021 FINDINGS: SUPPORT DEVICES: Redemonstrated left cardiac device. LUNGS/PLEURA: No focal consolidation, pleural effusion or space-occupying pneumothorax. Mildly promin ent interstitial markings. MEDIASTINUM: The cardiomediastinal silhouette is within normal limits. BONES/SOFT TISSUES: No acute abnormality. Remote right rib fracture deformities. IMPRESSION: 1.Mildly prominent interstitial markings, which may reflect pulmonary vascular congestion and/or violent crimes detective rachel change. Reviewed by: Edmundo Becker MD on 03/15/2021 10:40 AM PDT Approved by: Edmundo Becker MD on 03/15/2021 10:40 AM PDT Station ID: [id number]
[2021-03-15 10:48] LABS: ALBUMIN 3.9 g/dL (3.2-5.5); ALBUMIN/GLOBULIN RATIO 1.3 (1.0-2.2); BILIRUBIN,TOTAL 0.8 mg/dL (0.2-1.0); CALCIUM 9.8 mg/dL (8.5-10.3); CREATININE 1.3 mg/dL (0.4-1.0); POTASSIUM 3.8 mmol/L (3.5-5.0); TOTAL PROTEIN 6.8 g/dL (6.7-8.2)
--- NOTE | 2021-03-15 11:23 | ED Physician Documentation ---
History of Present Illness - Stated complaint Stated Complaint: LOW BLOOD PRESSURE - Chief complaint Chief Complaint: Cardiac - History obtained from History obtained from: Patient, Family - History of Present Illness Timing: How many weeks ago (4) - Additonal information Additional information: 55-year-old female with a history of COPD has recovered from Covid in the hospital 1 month ago and she is having increased shortness of breath and is feeling weak. She has a history of A. fib is on Eliquis and she has a history of cardiac arrest from which she was resuscitated after a prolonged resuscitation. She has a AICD. She went in to her doctors office this morning and was sent to the ED with low blood pressure. Her chief complaint is weakness and shortness of breath. Review of Systems Constitutional: reports: Fatigue, Sweats. denies: Fever Eyes: denies: Photophobia Ears: denies: Ear pain Nose: reports: Congestion. denies: Rhinorrhea / runny nose Throat: denies: Sore throat Cardiac: denies: Chest pain / pressure, Palpitations, Pedal edema, Calf pain Respiratory: reports: Dyspnea, Cough, Wheezing GI: denies: Abdominal Pain, Nausea, Vomiting : denies: Dysuria, Frequency Skin: denies: Rash Musculoskeletal: denies: Neck pain, Back pain, Extremity pain Neurologic: reports: Generalized weakness. 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 , Other : None, Frequency HEENT: Chronic vision loss, Chronic sinusitis, Chronic hearing loss Psych: Depression, Anxiety, Claustrophobia Musculoskeletal: Osteoarthritis, Fatigue, Chronic back pain Derm: None - Past Surgical History Past Surgical History: Yes General: Cholecystectomy, EGD Ortho: Knee replacement /MACHINE CLOTHING MAN: Hysterectomy, LEEP (Cervical surgery) Cardiovascular: Cardiac catheterization HEENT: Rhinoplasty - Present Medications Home Medications: Ambulatory Orders Medication Instructions Recorded Confirmed Furosemide 40 mg PO BID 09/07/20 02/04/21 Apixaban [Eliquis] 5 mg PO BID 10/24/20 02/04/21 Albuterol 2.5 mg INH Q4H PRN #14 units 10/29/20 02/04/21 Albuterol Sulfate [Proair Hfa 2 puffs INH Q4H PRN #1 inh 10/29/20 02/04/21 Inhaler] Budesonide [Pulmicort] 0.5 mg INH BID #14 units 10/29/20 02/04/21 Formoterol Fumarate [Perforomist] 20 mcg IH BID #10 ml 10/29/20 02/04/21 Spironolactone [Aldactone] 25 mg PO DAILY #30 tablet 10/29/20 02/04/21 Amiodarone [Pacerone] 100 mg PO DAILY 02/04/21 02/04/21 Loratadine [Claritin] 10 mg PO DAILY 02/04/21 02/04/21 Metoprolol Succinate [Toprol Xl] 50 mg PO DAILY #30 tablet 02/11/21 lisinopriL [Zestril] 2.5 mg PO DAILY #30 tablet 02/11/21 - Allergies Allergies/Adverse Reactions: Allergies Allergy/AdvReac Type Severity Reaction Status Date / Time codeine [Codeine] Allergy Severe Swelling/Hi Verified 03/15/21 09:43 ves erythromycin base Allergy Severe Anaphylaxis Verified 03/15/21 09:43 [Erythromycin Base] gabapentin Allergy Severe Anaphylaxis Verified 03/15/21 09:43 Latex, Natural Rubber Allergy Severe Blisters Verified 03/15/21 09:43 pamabrom [From Midol] Allergy Severe Respiratory Verified 03/15/21 09:43 pyrilamine maleate * Allergy Severe Respiratory Verified 03/15/21 09:43 [From Midol] shellfish derived Allergy Severe Anaphylaxis Verified 03/15/21 09:43 venom-honey bee Allergy Severe Anaphylaxis Verified 03/15/21 09:43 [bee venom (honey bee)] chlorhexidine Allergy Intermediate Rash Verified 03/15/21 09:43 morphine Allergy Respiratory Verified 03/15/21 09:43 ondansetron Allergy Respiratory Verified 03/15/21 09:43 piperacillin [From Zosyn] AdvReac Rash Verified 03/15/21 09:43 tazobactam [From Zosyn] AdvReac Rash Verified 03/15/21 09:43 - Social History Does the pt smoke?: No Smoking Status: Never smoker Does the pt drink ETOH?: No Does the pt have substance abuse?: No - Immunizations Immunizations are current?: No Immunizations: Other immun not current - POLST Patient has POLST: No POLST Status: Full Code PD ED PE NORMAL - Vitals Vital signs reviewed: Yes (hypotensive ) - General General: Alert and oriented X 3, Well developed/nourished, Other (covered with blankets moves slowly and has speech latency of 2-3 sec .) - HEENT HEENT: Atraumatic, PERRL, EOMI, Other (dry mucous membranes) - Neck Neck: Supple, no meningeal sign, No bony TTP - Cardiac Cardiac: RRR, No murmur - Respiratory Respiratory: No respiratory distress, Other (rhonchi bilat worse on the right mid lung field) - Abdomen Abdomen: Soft, Non tender - Back Back: No CVA TTP, No spinal TTP - Derm Derm: Normal color, Warm and dry, No rash - Extremities Extremities: No deformity, No edema - Neuro Neuro: Alert and oriented X 3, voucher examiner 2-12 intact, No motor deficit, No sensory deficit, Normal speech Eye Opening: Spontaneous Motor: Obeys Commands Verbal: Oriented GCS Score: 15 - Psych Psych: Other (mood is withdrawn and affect is blunted. ) Results - Vitals Vitals: Vital Signs - 24 hr 03/15/21 03/15/21 03/15/21 09:43 10:24 12:00 Temperature 36.8 C Heart Rate 75 73 60 Respiratory 20 16 18 Rate Blood Pressure 92/59 L 89/41 L 101/72 O2 Saturation 97 98 95 03/15/21 03/15/21 03/15/21 13:20 13:59 14:55 Temperature Heart Rate 65 66 77 Respiratory 25 H 18 16 Rate Blood Pressure 91/41 L O2 Saturation 93 03/15/21 15:30 Temperature Heart Rate 84 Respiratory 26 H Rate Blood Pressure 103/57 L O2 Saturation 91 L Oxygen O2 Source [] Room air O2 Source Room air - EKG (time done) 1007 Rate: Rate (enter#) (74) Rhythm: NSR Intervals: LBBB Ischemia: ST elevation c/w repol (LBBB) Compare to prior EKG: Unchanged from prior EKG (SPT 02-04-2021 no sig changes ) Computer interpretation: Agree with computer - Labs Labs: Laboratory Tests 03/15/21 03/15/21 03/15/21 10:22 10:22 10:22 WBC 12.2 H RBC 4.78 Hgb 15.6 Hct 48.2 H MCV 100.8 H MCH 32.6 H MCHC 32.4 RDW 12.6 Plt Count 216 MPV 10.2 Neut # (Auto) 8.5 H Lymph # (Auto) 2.6 Bledsoe # (Auto) 0.9 Eos # (Auto) 0.1 Baso # (Auto) 0.1 Absolute Nucleated RBC 0.00 Nucleated RBC % 0.0 Sodium 139 Potassium 3.8 Chloride 99 L Carbon Dioxide 31 Anion Gap 9.0 BUN 28 H Creatinine 1.3 H Estimated GFR (MDRD) 42 L Glucose 167 H Calcium 9.8 Total Bilirubin 0.8 AST 14 ALT 22 Alkaline Phosphatase 73 Troponin I High Sens 8.1 Total Protein 6.8 Albumin 3.9 Globulin 2.9 Albumin/Globulin Ratio 1.3 Lipase 99 H Nasal Adenovirus (PCR) Nasal B. parapertussis DNA (PCR) Nasal Coronavir 229E PCR Nasal Coronavir HKU1 PCR Nasal Coronavir NL63 PCR Nasal Coronavir OC43 PCR Nasal Enterovir/Rhinovir PCR Nasal Influenza B PCR Nasal Influenza A PCR Nasal Parainfluen 1 PCR Nasal Parainfluen 2 PCR Nasal Parainfluen 3 PCR Nasal Parainfluen 4 PCR Nasal RSV (PCR) Nasal B.pertussis DNA PCR Nasal C.pneumoniae (PCR) Azar Human Metapneumo PCR Nasal M.pneumoniae (PCR) Nasal SARS-CoV-2 (PCR) 03/15/21 11:58 WBC RBC Hgb Hct MCV MCH MCHC RDW Plt Count MPV Neut # (Auto) Lymph # (Auto) Bledsoe # (Auto) Eos # (Auto) Baso # (Auto) Absolute Nucleated RBC Nucleated RBC % Sodium Potassium Chloride Carbon Dioxide Anion Gap BUN Creatinine Estimated GFR (MDRD) Glucose Calcium Total Bilirubin AST ALT Alkaline Phosphatase Troponin I High Sens Total Protein Albumin Globulin Albumin/Globulin Ratio Lipase Nasal Adenovirus (PCR) NOT DETECTED Nasal B. parapertussis DNA (PCR) NOT DETECTED Nasal Coronavir 229E PCR NOT DETECTED Nasal Coronavir HKU1 PCR NOT DETECTED Nasal Coronavir NL63 PCR NOT DETECTED Nasal Coronavir OC43 PCR NOT DETECTED Nasal Enterovir/Rhinovir PCR NOT DETECTED Nasal Influenza B PCR NOT DETECTED Nasal Influenza A PCR NOT DETECTED Nasal Parainfluen 1 PCR NOT DETECTED Nasal Parainfluen 2 PCR NOT DETECTED Nasal Parainfluen 3 PCR NOT DETECTED Nasal Parainfluen 4 PCR NOT DETECTED Nasal RSV (PCR) NOT DETECTED Nasal B.pertussis DNA PCR NOT DETECTED Nasal C.pneumoniae (PCR) NOT DETECTED Azar Human Metapneumo PCR NOT DETECTED Nasal M.pneumoniae (PCR) NOT DETECTED Nasal SARS-CoV-2 (PCR) NOT DETECTED - Rads (name of study) chest Radiology: Prelim report reviewed (Impression: 1. Mildly prominent interstitial markings, which may reflect pulmonary vascular congestion and/or chronic change.), EMP read indepedently, See rad report Procedures - IVC sono (time) 1130 Bedside IVC sono: IVC measures (cm) (0.83), Dehydration (est 2 liter deficit) PD MEDICAL DECISION MAKING - ED course Complexity details: reviewed old records, reviewed results, re-evaluated patient, considered differential, d/w patient, d/w family ED course: 55-year-old female with a complicated medical history including a past history of cardiac arrest with prolonged resuscitation and survival after the code was called. She has been treated for Covid here in the hospital with a 10-day stay starting on 02 February. She finished all of her treatment and went home she was on no specific treatment at home for Covid and she is complained of weakness and fatigue. She is having some difficulty breathing which is worsening over time. She was seen in the doctor's office today in follow-up and sent to the emergency department for evaluation with hypotension. She arrived to the emergency department chilling and under the covers withdrawn. She was found to be dehydrated was given intravenous saline and had some improvement. She has wheezing on exam and she was administered a DuoNeb treatment without much improvement and an albuterol treatment again without much further improvement. She has remained hypotensive with systolics in the 90s. In review of her case she has been given steroid for an extended period of time 1 month ago and she is given a dose of steroid for potential Telfair's. Departure - Departure Disposition: [facility] DC/Xfer Clinical Impression: Dehydration COPD (chronic obstructive pulmonary disease) Qualifiers: COPD type: COPD with acute exacerbation Qualified Code(s): J44.1 - Chronic obstructive pulmonary disease with (acute) exacerbation Hypotension Qualifiers: Hypotension type: unspecified hypotension type Qualified Code(s): I95.9 - Hypotension, unspecified
[2021-03-15] MEDS ORDERED: SODIUM CHLORIDE 0.9% 1,000 ML IV STA ×2 (11:38→13:36)
[2021-03-15 13:16] LABS: B. PARAPERTUSSIS- RESP PCR PAN NOT DETECTED; B. PERTUSSIS- RESP PCR PANEL NOT DETECTED; C. PNEUMONIAE- RESP PCR PANEL NOT DETECTED; CORONAVIRUS 229E-RESP PCR NOT DETECTED; CORONAVIRUS HKU1-RESP PCR NOT DETECTED; CORONAVIRUS NL63-RESP PCR NOT DETECTED; CORONAVIRUS OC43-RESP PCR NOT DETECTED; HUMAN METAPNEUMOVIRUS NOT DETECTED; INFLUENZA A- RESP PCR PANEL NOT DETECTED; INFLUENZA B - RESP PCR PANEL NOT DETECTED; M. PNEUMONIAE- RESP PCR PANEL NOT DETECTED; PARAINFLUENZA VIRUS 1 NOT DETECTED; PARAINFLUENZA VIRUS 2 NOT DETECTED; PARAINFLUENZA VIRUS 3 NOT DETECTED; PARAINFLUENZA VIRUS 4 NOT DETECTED; RHINOVIRUS/ENTEROVIRUS NOT DETECTED; RSV- RESP PCR PANEL NOT DETECTED; SARS-CoV-2 -RESP PCR PANEL NOT DETECTED
[2021-03-15] MEDS ORDERED: IPRATROPIUM/ALBUTEROL 3 ML NEB INH STA (13:36)
[2021-03-15] MEDS ORDERED: ALBUTEROL NEB 2.5 MG/3 ML INH STA (14:40)
[2021-03-15] MEDS ORDERED: DEXAMETHASONE 10 MG/ML VIAL IVP STA (15:24)
--- NOTE | 2021-03-15 16:50 | HISTORY & PHYSICAL EXAMINATION ---
Chief Complaint - Chief Complaint Chief Complaint: sent in from doctor's office for low BP History of Present Illness - Admitted From Admitted From:: ED - History Obtained From History obtained from: ED provider and the patient - History of Present Illness HPI Comment/Other: This is a 55-year-old female with history of morbid obesity, ex-smoker, COPD on inhalers and Trilogy mask, steroid induced DM, cardiomyopathy with EF 35% on Echo done 3 months ago, history of cardiac arrest requiring resuscitation and subsequent AICD implant. She was hospitalized here a month ago for Covid pneumonia and was has been home and recently developed shortness of breath and weakness and went to see her doctor today. At the doctor's office her blood pressure was 60 and she was sent into the ED for evaluation. On presentation to the ED she described being short of breath, feeling weak and the first blood pressure was 89 systolic. She was felt to be dehydrated by ED work-up and has received 2 L of saline. She has received inhaler treatment with minimal improvement. Because of being on previous steroids she received a dose of Decadron for the possibility of Addisonian crisis causing the hypotension. Despite this her blood pressure is still "soft" at 100 systolic and she is still short of breath and is being admitted to manage these. History - Past Medical History Cardiovascular: reports: Congestive heart failure, Hypertension, High cholesterol, Coronary artery disease, [place], Atrial fibrillation, Murmur, Arrhythmia Respiratory: reports: Asthma, COPD, Emphysema, Pneumonia, Shortness of breath, Other Neuro: reports: Headaches, Tremors Endocrine/Autoimmune: reports: None GI: reports: GERD SENIOR DEVELOPER: reports: Ectopic , Other : reports: None, Frequency HEENT: reports: Chronic vision loss, Chronic sinusitis, Chronic hearing loss Psych: reports: Depression, Anxiety, Claustrophobia Musculoskeletal: reports: Osteoarthritis, Fatigue, Chronic back pain Derm: reports: None MRSA Hx?: No - Past Surgical History General: reports: Cholecystectomy, EGD Ortho: reports: Knee replacement /SENIOR DEVELOPER: reports: Hysterectomy, LEEP (Cervical surgery) Cardiovascular: reports: Cardiac catheterization HEENT: reports: Rhinoplasty - Family & Social History Family History: Mother: Alive and Well, Alzheimer's Disease, Hyperlipidemia, Hypertension, Father: , Cancer, Other family: CVA/TIA, Diabetes, Type 1, [place] Family History Comment/Other: To her knowledge, her father from an unknown cancer. She denies a family history of heart disease or diabetes but review of prior records reveal that both her parents had coronary artery disease and diabetes. Living arrangement: At home Living Situation: With family Social History Notes: She lives with her grand-daughter's boyfriend who she is trying to evict. 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 She reports that she quit smoking about a year ago. She started at the age of 7 and smoked up to 1.5 packs a day. She reported she had alcoholism but she quit alcohol use. - Substance History Use: Uses substance without health or social issues: NONE - POLST Patient has POLST: No POLST Status: Full Code Meds/Allgy - Home Medications Home Medications: Ambulatory Orders Medication Instructions Recorded Confirmed Furosemide 40 mg PO BID 09/07/20 03/16/21 Apixaban [Eliquis] 5 mg PO BID 10/24/20 03/16/21 Albuterol 2.5 mg INH Q4H PRN #14 units 10/29/20 03/16/21 Albuterol Sulfate [Proair Hfa 2 puffs INH Q4H PRN #1 inh 10/29/20 03/16/21 Inhaler] Budesonide [Pulmicort] 0.5 mg INH BID #14 units 10/29/20 03/16/21 Formoterol Fumarate [Perforomist] 20 mcg IH BID #10 ml 10/29/20 03/16/21 Amiodarone [Pacerone] 100 mg PO DAILY 02/04/21 03/16/21 Loratadine [Claritin] 10 mg PO DAILY 02/04/21 03/16/21 Metoprolol Succinate [Toprol Xl] 50 mg PO DAILY #30 tablet 02/11/21 03/16/21 lisinopriL [Zestril] 2.5 mg PO DAILY #30 tablet 02/11/21 03/16/21 Arformoterol Tartrate [Brovana] 2 ml INH BID 03/16/21 03/16/21 Metformin HCl [Glumetza] 500 mg PO DAILY 03/16/21 03/16/21 Montelukast [Singulair] 10 mg PO DAILY 11/02/21 11/02/21 Nitroglycerin [Nitrostat] 0.4 mg PO Q5MIN PRN 03/16/21 03/16/21 - Allergies Allergies/Adverse Reactions: Allergies Allergy/AdvReac Type Severity Reaction Status Date / Time codeine [Codeine] Allergy Severe Swelling/Hi Verified 03/15/21 09:43 ves erythromycin base Allergy Severe Anaphylaxis Verified 03/15/21 09:43 [Erythromycin Base] gabapentin Allergy Severe Anaphylaxis Verified 03/15/21 09:43 Latex, Natural Rubber Allergy Severe Blisters Verified 03/15/21 09:43 pamabrom [From Midol] Allergy Severe Respiratory Verified 03/15/21 09:43 pyrilamine maleate * Allergy Severe Respiratory Verified 03/15/21 09:43 [From Midol] shellfish derived Allergy Severe Anaphylaxis Verified 03/15/21 09:43 venom-honey bee Allergy Severe Anaphylaxis Verified 03/15/21 09:43 [bee venom (honey bee)] chlorhexidine Allergy Intermediate Rash Verified 03/15/21 09:43 morphine Allergy Respiratory Verified 03/15/21 09:43 ondansetron Allergy Respiratory Verified 03/15/21 09:43 piperacillin [From Zosyn] AdvReac Rash Verified 03/15/21 09:43 tazobactam [From Zosyn] AdvReac Rash Verified 03/15/21 09:43 Review of Systems - Constitutional Constitutional: reports: Fatigue, Weakness, Other (Having EF of 35%, she is never experienced leg edema and wonders if it is from being Addisonian and having a chronic low BP) - All Other Systems All Other Systems: reports: Reviewed and negative Exam - Vital Signs Vital Signs: Vital Signs x48h Temp Pulse Resp BP Pulse Ox 03/15/21 15:30 84 26 H 103/57 L 91 L 03/15/21 14:55 77 16 03/15/21 13:59 66 18 03/15/21 13:20 65 25 H 91/41 L 93 03/15/21 12:00 60 18 101/72 95 03/15/21 10:24 73 16 89/41 L 98 03/15/21 09:43 36.8 C 75 20 92/59 L 97 - Physical Exam General Appearance: positive: No acute distress, Alert Eyes Bilateral: positive: Normal inspection, EOMI ENT: positive: ENT inspection nml, No signs of dehydration, Other (Wearing O2 by nasal cannula) Neck: positive: Nml inspection, No JVD Respiratory: positive: Wheezes (Diffuse anterior and posterior prolonged wheezes and prolonged expiratory phase) Cardiovascular: positive: Regular rate & rhythm, No murmur Abdomen: positive: Non-tender, Other (Obese with pannus) Skin: positive: Warm, Dry Extremities: positive: Non-tender, No pedal edema Neurologic/Psychiatric: positive: Oriented x3 (Non-focal) Conclusion/Plan - Problem List (1) Hypotension Conclusion/Plan: The ED provider, Dr. Gunn, felt that she had dehydration and she has received saline to manage her low blood pressure which has brought it up somewhat. By her labs showing prerenal azotemia, she is probably somewhat dehydrated, being on Lasix and spironolactone. After 2 L of IV saline, will not give any more fluids until she equilibrates this fluid load. We will rule out septic shock by obtaining lactic acid level. We will rule out cardiogenic shock by obtaining troponins. Monitor vital signs frequently to make adjustments in meds. We will hold several of her home medications that cause a drop in blood pressure. Qualifiers: Hypotension type: unspecified hypotension type Qualified Code(s): I95.9 - Hypotension, unspecified (2) Dyspnea Conclusion/Plan: Since this patient's dyspnea was her symptom before getting 2 L of IV fluid, suspect that her this current presentation is a COPD exacerbation. Alternatively she may have cardiac ischemia causing dyspnea, without chest pain. Finally, her shortness of breath may be getting worse if she is getting volume overloaded after 2 L of IV fluids were administered. Today, she has tested Covid negative; she had Covid pneumonia a month ago. Plan to start the patient on scheduled nebulizers 4 times daily and as needed every 4 hours. Will start IV steroids. Will continue any other respiratory medications such as Singulair or Mucinex. We will give supplemental oxygen to keep saturations greater than 88% if needed. We will order her home trilogy machine if she is really using this. Will follow her I's and O's strictly, so that we do not institute pulmonary vascular congestion. Qualifiers: Dyspnea type: shortness of breath Qualified Code(s): R06.02 - Shortness of breath; R06.00 - Dyspnea, unspecified; R06.01 - Orthopnea (3) Chronic HFrEF (heart failure with reduced ejection fraction) Conclusion/Plan: Echo was done about 3 months ago and showed LVEF of 35%. After 2 L of fluid given in the ED, will not order further IV hydration We will continue with telemetry and she has her AICD in place. We will resume her beta-julius, SARAH and spironolactone when blood pressure has improved. Follow strict I's and O's so that we do not add to pulmonary vascular congestion. (4) Diabetes mellitus Conclusion/Plan: Will order a carb controlled diet, fingerstick checks and cover with sliding scale insulin coverage. Starting IV steroids will likely raise her sugars, watch for this. Check A1c with morning lab Qualifiers: Diabetes mellitus type: type 2 - Lab Results Fish Bones: 03/17/21 05:40 03/17/21 05:40
[2021-03-15] MEDS ORDERED: LEVALBUTEROL 1.25 MG/3 ML NEB INH SCH (17:00)
[2021-03-15] MEDS: LEVALBUTEROL 1.25 MG/3 ML NEB INH SCH (19:35)
[2021-03-16] MEDS: SODIUM CHLORIDE FLUSH 0.9% 10 ML SYRINGE IVP SCH ×5 (00:17→23:31)
[2021-03-16] MEDS: methylPREDNISolone SUCCINATE 40 MG/ML VIAL IVP SCH ×4 (00:17→21:40)
[2021-03-16] MEDS: LEVALBUTEROL 1.25 MG/3 ML NEB INH SCH ×4 (07:40→19:30)
--- NOTE | 2021-03-16 11:14 | PHARMACY PROGRESS NOTE ---
- Best Possible Medication History Admit Date and Time: 03/15/21 1637 Processed by: Pharmacy Medication History completed: Yes Patient Interview: Completed Secondary Source(s): Physician records, Pharmacy records, Insurance records (patient able to confirm home medications ) As the person ultimately responsible for medication therapy, providers are able to order a medication from an existing home medication list in [facility] via the "Reconcile Routine" prior to Confirmation of that medication by business support liaison. Such practice is discouraged except when the physician, in their clinical judgment, deems that a medical need exists for a medication without regard to previous use.
[2021-03-16] MEDS ORDERED: INSULIN ASPART 300 UNIT/3 ML PEN SUBQ SCH ×2 (12:00→21:39)
[2021-03-16] MEDS: SODIUM CHLORIDE FLUSH 0.9% 10 ML SYRINGE IVP PRN (14:11)
[2021-03-16] MEDS: INSULIN ASPART 300 UNIT/3 ML PEN SUBQ SCH ×2 (17:25→21:41)
--- NOTE | 2021-03-16 21:33 | PROVIDER PROGRESS NOTE ---
Assessment/Plan - Problem List (1) Hypotension Qualifiers: Hypotension type: unspecified hypotension type Qualified Code(s): I95.9 - Hypotension, unspecified Assessment/Plan: Improved/ Resolved BP currently 120/60 Hypotension was likely due to dehydration and from antihypertensive medication Patient was give 2 L of IV fluids. Will continue to monitor overnight and resume patient's home medications tomorrow (2) COPD (chronic obstructive pulmonary disease) Qualifiers: COPD type: COPD with acute exacerbation Qualified Code(s): J44.1 - Chronic obstructive pulmonary disease with (acute) exacerbation Assessment/Plan: On 2-3L of O2 at baseline O2Sats currently 95-97% Solumedrol 40mg tid Xopenex q4h (3) Chronic HFrEF (heart failure with reduced ejection fraction) Assessment/Plan: Plan to resume beta-julius, SARAH and spironolactonein the morning 03/17/21 if blood pressure permits (4) Diabetes mellitus Qualifiers: Diabetes mellitus type: type 2 Assessment/Plan: On carb controlled diet On SSI. Accu checks qAC and hs Lantus 10 units qpm added Patient may also require insulin tid with meals - Current Meds Current Meds: Current Medications Generic Name Dose Route Start Last Admin Trade Name Freq PRN Reason Stop Dose Admin Insulin Aspart 1 - 9 unit 03/16/21 17:00 03/16/21 17:25 Insulin Aspart 300 Unit/3 Ml Pen SUBQ 9 unit 0800,1200,1700,2100 ROMAN Administration Protocol Levalbuterol HCl 1.25 mg 03/15/21 19:00 03/16/21 19:30 Levalbuterol 1.25 Mg/3 Ml Neb INH 1.25 mg RTQ4H ROMAN Administration Methylprednisolone 40 mg 03/15/21 22:00 03/16/21 14:10 Methylprednisolone Succinate 40 Mg/Ml Vial IVP 40 mg TID ROMAN Administration Sodium Chloride 10 ml 03/15/21 16:37 03/16/21 14:11 Sodium Chloride Flush 0.9% 10 Ml Syringe IVP 10 ml PRN PRN Administration NEEDED PER PROVIDER ORDERS Sodium Chloride 10 ml 03/15/21 17:00 03/16/21 17:25 Sodium Chloride Flush 0.9% 10 Ml Syringe IVP 10 ml 0100,0900,1700 ROMAN Administration - Lab Result Fish Bone Diagrams: 03/15/21 10:22 03/15/21 10:22 Subjective - Subjective Patient Reports: Other (Resting comfortably in bed. Appeared to be breathing comfortably. Has significant inspiratory and expiratory wheezes.) Objective Vital Signs: Vital Signs - 24 hr 03/15/21 03/16/21 03/16/21 23:00 01:00 03:00 Temperature 36.7 C 37.0 C 36.6 C Heart Rate Heart Rate [ 77 70 65 Brachial] Respiratory 24 21 24 Rate Blood Pressure 122/57 L 129/57 L 122/55 L [Right Brachial artery] O2 Saturation 94 94 93 03/16/21 03/16/21 03/16/21 05:00 07:00 07:40 Temperature 36.6 C 37.2 C Heart Rate 68 Heart Rate [ 76 40 L Brachial] Respiratory 23 22 20 Rate Blood Pressure 113/61 114/48 L [Right Brachial artery] O2 Saturation 92 92 03/16/21 03/16/21 03/16/21 09:00 11:13 11:20 Temperature 36.8 C 36.8 C Heart Rate 76 Heart Rate [ 68 78 Brachial] Respiratory 20 20 20 Rate Blood Pressure 131/54 H 121/75 [Right Brachial artery] O2 Saturation 95 97 03/16/21 03/16/21 03/16/21 13:00 14:52 15:30 Temperature 37.2 C 36.6 C Heart Rate 78 Heart Rate [ 89 79 Brachial] Respiratory 18 20 16 Rate Blood Pressure 128/46 L 134/72 H [Right Brachial artery] O2 Saturation 94 94 03/16/21 03/16/21 03/16/21 16:10 19:00 19:30 Temperature 37.4 C 36.8 C Heart Rate 77 Heart Rate [ 85 72 Brachial] Respiratory 24 26 H 20 Rate Blood Pressure 126/60 120/57 L [Right Brachial artery] O2 Saturation 96 96 Oxygen O2 Source [With Activity] Room air O2 Source Room air I&O (Last 24 Hrs): Intake and Output Totals x24h 03/14/21 03/15/21 03/16/21 23:59 23:59 23:59 Intake Total 2750 1920 Balance 2750 1920 General: Alert, Oriented x3, Mild distress HEENT: PERRLA, EOMI Neck: Supple, No JVD Neuro: Alert, Oriented Times 3 Cardiovascular: Regular rate Respiratory: Chest non-tender, No respiratory distress, Wheezes Abdomen: Normal bowel sounds, Soft, No tenderness Extremities: No clubbing, No cyanosis, No edema Skin: No rashes, No breakdown, No significant lesion - Results Results: Laboratory Results WBC 12.2 x10^3/uL (4.8-10.8) H 03/15/21 10:22 RBC 4.78 10^6/uL (4.20-5.40) 03/15/21 10:22 Hgb 15.6 g/dL (12.0-16.0) 03/15/21 10:22 Hct 48.2 % (37.0-47.0) H 03/15/21 10:22 MCV 100.8 fL (81.0-99.0) H 03/15/21 10:22 MCH 32.6 pg (27.0-31.0) H 03/15/21 10:22 MCHC 32.4 g/dL (32.0-36.0) 03/15/21 10:22 RDW 12.6 % (12.0-15.0) 03/15/21 10:22 Plt Count 216 10^3/uL (130-450) 03/15/21 10:22 MPV 10.2 fL (7.9-10.8) 03/15/21 10:22 Neut # (Auto) 8.5 10^3/uL (1.5-6.6) H 03/15/21 10:22 Lymph # (Auto) 2.6 10^3/uL (1.5-3.5) 03/15/21 10:22 [place] # (Auto) 0.9 10^3/uL (0.0-1.0) 03/15/21 10:22 Eos # (Auto) 0.1 10^3/uL (0.0-0.7) 03/15/21 10:22 Baso # (Auto) 0.1 10^3/uL (0.0-0.1) 03/15/21 10:22 Absolute Nucleated RBC 0.00 x10^3/uL 03/15/21 10:22 Nucleated RBC % 0.0 /100WBC 03/15/21 10:22 Sodium 139 mmol/L (135-145) 03/15/21 10:22 Potassium 3.8 mmol/L (3.5-5.0) 03/15/21 10:22 Chloride 99 mmol/L (101-111) L 03/15/21 10:22 Carbon Dioxide 31 mmol/L (21-32) 03/15/21 10:22 Anion Gap 9.0 (6-13) 03/15/21 10:22 BUN 28 mg/dL (6-20) H 03/15/21 10:22 Creatinine 1.3 mg/dL (0.4-1.0) H 03/15/21 10:22 Estimated GFR (MDRD) 42 (>89) L 03/15/21 10:22 Glucose 167 mg/dL (70-100) H 03/15/21 10:22 POC Whole Bld Glucose 402 mg/dL (70 - 100) H 03/16/21 16:36 Lactic Acid 2.9 mmol/L (0.5-2.2) H 03/15/21 16:52 Calcium 9.8 mg/dL (8.5-10.3) 03/15/21 10:22 Total Bilirubin 0.8 mg/dL (0.2-1.0) 03/15/21 10:22 AST 14 IU/L (10-42) 03/15/21 10:22 ALT 22 IU/L (10-60) 03/15/21 10:22 Alkaline Phosphatase 73 IU/L (42-121) 03/15/21 10:22 Troponin I High Sens 8.1 ng/L (2.3-14.8) 03/15/21 16:52 B-Natriuretic Peptide 32 pg/mL (5-100) 03/15/21 10:22 Total Protein 6.8 g/dL (6.7-8.2) 03/15/21 10:22 Albumin 3.9 g/dL (3.2-5.5) 03/15/21 10:22 Globulin 2.9 g/dL (2.1-4.2) 03/15/21 10:22 Albumin/Globulin Ratio 1.3 (1.0-2.2) 03/15/21 10:22 Lipase 99 U/L (22-51) H 03/15/21 10:22 Nasal Adenovirus (PCR) NOT DETECTED 03/15/21 11:58 Nasal B. parapertussis DNA (PCR) NOT DETECTED 03/15/21 11:58 Nasal Coronavir 229E PCR NOT DETECTED 03/15/21 11:58 Nasal Coronavir HKU1 PCR NOT DETECTED 03/15/21 11:58 Nasal Coronavir NL63 PCR NOT DETECTED 03/15/21 11:58 Nasal Coronavir OC43 PCR NOT DETECTED 03/15/21 11:58 Nasal Enterovir/Rhinovir PCR NOT DETECTED 03/15/21 11:58 Nasal Influenza B PCR NOT DETECTED 03/15/21 11:58 Nasal Influenza A PCR NOT DETECTED 03/15/21 11:58 Nasal Parainfluen 1 PCR NOT DETECTED 03/15/21 11:58 Nasal Parainfluen 2 PCR NOT DETECTED 03/15/21 11:58 Nasal Parainfluen 3 PCR NOT DETECTED 03/15/21 11:58 Nasal Parainfluen 4 PCR NOT DETECTED 03/15/21 11:58 Nasal RSV (PCR) NOT DETECTED 03/15/21 11:58 Nasal B.pertussis DNA PCR NOT DETECTED 03/15/21 11:58 Nasal C.pneumoniae (PCR) NOT DETECTED 03/15/21 11:58 Azar Human Metapneumo PCR NOT DETECTED 03/15/21 11:58 Nasal M.pneumoniae (PCR) NOT DETECTED 03/15/21 11:58 Nasal SARS-CoV-2 (PCR) NOT DETECTED 03/15/21 11:58 - Procedures Procedures: Procedures (02/05/21) ESOPHAGOGASTRODUODENOSCOPY [EGD] W/CLOSED BIOPSY (11/29/13) INSERTION OF INFUSION DEV INTO SUP VENA CAVA, PERC APPROACH (12/28/17) MANUAL RUPT JOINT ADHES (04/27/14) TOTAL KNEE REPLACEMENT (06/16/14) ABX Reporting Has patient been on IV antibiotics over the past 48 hours?: No
[2021-03-16] MEDS: INSULIN GLARGINE 300 UNIT/3 ML PEN SUBQ SCH (22:41)
[2021-03-16] MEDS ORDERED: INSULIN GLARGINE 300 UNIT/3 ML PEN SUBQ ONE (22:42)
[2021-03-17] MEDS: methylPREDNISolone SUCCINATE 40 MG/ML VIAL IVP SCH ×2 (05:31→21:08)
[2021-03-17] MEDS: LEVALBUTEROL 1.25 MG/3 ML NEB INH SCH ×4 (07:25→20:15)
[2021-03-17] MEDS ORDERED: INSULIN ASPART 300 UNIT/3 ML PEN SUBQ SCH (08:00)
[2021-03-17] MEDS: INSULIN ASPART 300 UNIT/3 ML PEN SUBQ SCH ×4 (08:03→22:10)
[2021-03-17] MEDS ORDERED: ALBUTEROL SULFATE 90 MCG INH PRN (09:00)
[2021-03-17] MEDS ORDERED: METOPROLOL SUCCINATE 50 MG TABLET PO SCH (09:00)
[2021-03-17] MEDS ORDERED: ALBUTEROL NEB 2.5 MG/3 ML INH PRN (09:00)
[2021-03-17] MEDS ORDERED: ARFORMOTEROL TARTRATE 15 MCG/2 ML INH SCH (09:00)
[2021-03-17 09:11] LABS: BASOPHILS % (AUTO) 0.2 %; HCT - HEMATOCRIT 43.9 % (37.0-47.0); HGB - HEMOGLOBIN 14.1 g/dL (12.0-16.0); LYMPHOCYTES # (AUTO) 0.7 10^3/uL (1.5-3.5); LYMPHOCYTES % (AUTO) 3.5 %; MEAN CORPUSCULAR HEMOGLOBIN 32.4 pg (27.0-31.0); MEAN CORPUSCULAR HGB CONC 32.1 g/dL (32.0-36.0); MEAN CORPUSCULAR VOLUME 100.9 fL (81.0-99.0); MONOCYTES # (AUTO) 0.6 10^3/uL (0.0-1.0); MONOCYTES % (AUTO) 2.8 %; NEUTROPHILS # (AUTO) 19.3 10^3/uL (1.5-6.6); NEUTROPHILS % (AUTO) 92.7 %; PLT - PLATELET COUNT 206 10^3/uL (130-450); RED BLOOD COUNT 4.35 10^6/uL (4.20-5.40); RED CELL DISTRIBUTION WIDTH 12.6 % (12.0-15.0); WHITE BLOOD COUNT 20.8 x10^3/uL (4.8-10.8)
[2021-03-17 09:15] LABS: CALCIUM 9.9 mg/dL (8.5-10.3)
[2021-03-17 09:17] LABS: SLIDE REVIEW? Indicated
[2021-03-17] MEDS: APIXABAN 5 MG TABLET PO SCH ×2 (09:40→22:08)
[2021-03-17] MEDS: AMIODARONE 200 MG TABLET PO SCH (09:40)
[2021-03-17] MEDS: MONTELUKAST 10 MG TABLET PO SCH (09:40)
[2021-03-17] MEDS: lisinopriL 5 MG TABLET PO SCH (09:41)
[2021-03-17] MEDS: guaiFENesin 600 MG TABLET PO SCH ×2 (09:41→22:08)
[2021-03-17] MEDS: LORATADINE 10 MG TABLET PO SCH (09:41)
[2021-03-17] MEDS: SODIUM CHLORIDE FLUSH 0.9% 10 ML SYRINGE IVP SCH ×2 (09:44→17:44)
[2021-03-17 10:05] LABS: RBC MORPHOLOGY (MULTIPLE) 1+ ANISOCYTOSIS (NORMAL)
[2021-03-17] MEDS: FORMOTEROL FUMARATE NEB 20 MCG/2 ML INH SCH ×2 (11:07→20:15)
[2021-03-17] MEDS: BUDESONIDE 0.5 MG/2 ML NEB INH SCH ×2 (11:07→20:15)
[2021-03-17 11:30] LABS: ESTIMATED AVERAGE GLUCOSE 186 mg/dL (70-100); HEMOGLOBIN A1c% 8.1 % (4.27-6.07)
[2021-03-17] MEDS: ACETAMINOPHEN 325 MG TABLET PO PRN (16:00)
--- NOTE | 2021-03-17 16:27 | PROVIDER PROGRESS NOTE ---
Assessment/Plan - Problem List (1) Hypotension Qualifiers: Hypotension type: unspecified hypotension type Qualified Code(s): I95.9 - Hypotension, unspecified Assessment/Plan: By her admission labs showing prerenal azotemia, she was probably somewhat dehydrated, being on Lasix and spironolactone. She got 2L saline in ED, then none further due to LVEF 35%. We held several of her home medications until BP improved today to 120's systolic We ruled out septic shock by normal lactic acid level. We ruled out cardiogenic shock with stable troponins. Her morning cortisol is very low, suggesting sever adrenal insufficiency. Will start replacement doses of adrenal meds. We resumed her beta-julius, SARAH and spironolactone today, since her blood press ure has improved. I suspect her doses will need to be adjusted down however. Qualifiers: Hypotension type: unspecified hypotension type Qualified Code(s): I95.9 - Hypotension, unspecified (2) Fall during current hospitalization Qualifiers: Encounter type: initial encounter Qualified Code(s): W19.XXXA - Unspecified fall, initial encounter; Y92.239 - Unspecified place in hospital as the place of occurrence of the external cause Assessment/Plan: She was not lightheaded and had a normal BP today. She describes getting tangled in her oxygen tubing, causing the fall. A STAT head CT was ordered and showed no fracture and no bleeding. (3) COPD exacerbation Assessment/Plan: Since this patient's dyspnea was her symptom before getting 2 L of IV fluid, suspect gianna this current presentation was also a COPD exacerbation. She has tested Covid negative; she had Covid pneumonia a month ago. Continue scheduled nebulizers 4 times daily and prn every 4 hours. Conture IV steroids. Will continue any other respiratory medications such as Singulair or Mucinex. We will give supplemental oxygen to keep saturations greater than 88% We will order her home Trilogy machine if she is really using this. Will follow her I's and O's strictly, so that we do not institute pulmonary vascular congestion. (4) Chronic HFrEF (heart failure with reduced ejection fraction) Assessment/Plan: Echo was done about 3 months ago and showed LVEF of 35%. After 2 L of fluid given in the ED, will not order further IV hydration We will continue with telemetry and she has her AICD in place. We resumed her beta-julius, SARAH and spironolactone since her blood pressure has improved. I suspect her doses will need to be adjusted down however. Follow strict I's and O's so that we do not add to pulmonary vascular congestion. (5) Diabetes mellitus Qualifiers: Diabetes mellitus type: type 2 Assessment/Plan: She was ordered to take Metformin only when she was on Prednisone, she claimed. her A1c came back at 8.1 We ordered a carb controlled diet, fingerstick checks and cover with sliding scale insulin coverage. Starting IV steroids is raising her sugars, and we need to add Lantus. - Current Meds Current Meds: Current Medications Generic Name Dose Route Start Last Admin Trade Name Freq PRN Reason Stop Dose Admin Acetaminophen 650 mg 03/15/21 16:37 03/17/21 16:00 Acetaminophen 325 Mg Tablet PO 650 mg Q4HR PRN Administration Pain 1 to 4 Amiodarone HCl 100 mg 03/17/21 09:00 03/17/21 09:40 Amiodarone 200 Mg Tablet PO 100 mg DAILY ROMAN Administration Apixaban 5 mg 03/17/21 09:00 03/17/21 09:40 Apixaban 5 Mg Tablet PO 5 mg BID ROMAN Administration Budesonide 0.5 mg 03/17/21 09:00 03/17/21 11:07 Budesonide 0.5 Mg/2 Ml Neb INH 0.5 mg RTBID ROMAN Administration Formoterol Fumarate 20 mcg 03/17/21 09:00 03/17/21 11:07 Formoterol Fumarate Neb 20 Mcg/2 Ml INH 20 mcg RTBID ROMAN Administration Guaifenesin 600 mg 03/17/21 09:00 03/17/21 09:41 Guaifenesin 600 Mg Tablet PO 600 mg BID ROMAN Administration Insulin Aspart 3 - 11 unit 03/17/21 08:00 03/17/21 13:56 Insulin Aspart 300 Unit/3 Ml Pen SUBQ Not Given 0800,1200,1700,2100 ROMAN Protocol Insulin Glargine 10 unit 03/16/21 21:00 03/16/21 22:41 Insulin Glargine 300 Unit/3 Ml Pen SUBQ 10 unit QPM ROMAN Administration Levalbuterol HCl 1.25 mg 03/15/21 19:00 03/17/21 15:02 Levalbuterol 1.25 Mg/3 Ml Neb INH 1.25 mg RTQ4H ROMAN Administration Lisinopril 2.5 mg 03/17/21 09:00 03/17/21 09:41 Lisinopril 5 Mg Tablet PO 2.5 mg DAILY ROMAN Administration Loratadine 10 mg 03/17/21 09:00 03/17/21 09:41 Loratadine 10 Mg Tablet PO 10 mg DAILY ROMAN Administration Methylprednisolone 40 mg 03/15/21 22:00 03/17/21 05:31 Methylprednisolone Succinate 40 Mg/Ml Vial IVP 40 mg TID ROMAN Administration Montelukast Sodium 10 mg 03/17/21 09:00 03/17/21 09:40 Montelukast 10 Mg Tablet PO 10 mg DAILY ROMAN Administration Sodium Chloride 10 ml 03/15/21 16:37 03/16/21 14:11 Sodium Chloride Flush 0.9% 10 Ml Syringe IVP 10 ml PRN PRN Administration NEEDED PER PROVIDER ORDERS Sodium Chloride 10 ml 03/15/21 17:00 03/17/21 09:44 Sodium Chloride Flush 0.9% 10 Ml Syringe IVP 10 ml 0100,0900,1700 ROMAN Administration - Lab Result Fish Bone Diagrams: 03/17/21 05:40 03/17/21 05:40 - Additional Planning My Orders: My Active Orders 03/17/21 08:00 Insulin Aspart [NovoLOG] 3 - 11 unit SUBQ 0800,1200,1700,2100 03/17/21 08:48 Dietary [Nutrition Consult] [CONS] Routine 03/17/21 08:55 Orthostatic [Vital Signs - Orthostatic] [RC] QSHIFT 03/17/21 09:00 Albuterol 2.5 mg INH Q4H PRN Amiodarone [Pacerone] 100 mg PO DAILY Apixaban [Eliquis] 5 mg PO BID Budesonide [Pulmicort] 0.5 mg INH RTBID Formoterol Fumarate [Perforomist] 20 mcg INH RTBID Loratadine [Claritin] 10 mg PO DAILY Montelukast [Singulair] 10 mg PO DAILY guaiFENesin [Mucinex] 600 mg PO BID lisinopriL [Zestril] 2.5 mg PO DAILY 03/17/21 Dinner DIET [Regular Diet] [DIET] 03/17/21 16:25 HEAD WO [CT] Stat 03/18/21 09:00 Metoprolol Succinate [Toprol Xl] 25 mg PO DAILY Subjective - Subjective Patient Reports: Other (Fell in her room, got tanbgled in O2 tubing, landed on floor om back of head, no syncope. Feels unchanged SOB.) Objective Vital Signs: Vital Signs - 24 hr 03/16/21 03/16/21 03/16/21 19:00 19:30 21:00 Temperature 36.8 C 36.7 C Heart Rate 77 Heart Rate [ 72 75 Brachial] Heart Rate [ Monitoring electrodes] Respiratory 26 H 20 18 Rate Blood Pressure [Left Brachial artery] Blood Pressure 120/57 L 121/60 [Right Brachial artery] O2 Saturation 96 97 03/16/21 03/17/21 03/17/21 23:30 03:19 07:26 Temperature 36.5 C 37.1 C Heart Rate 64 Heart Rate [ 79 Brachial] Heart Rate [ 75 Monitoring electrodes] Respiratory 24 18 20 Rate Blood Pressure 122/62 [Left Brachial artery] Blood Pressure 111/41 L [Right Brachial artery] O2 Saturation 95 95 03/17/21 03/17/21 03/17/21 07:44 09:36 11:02 Temperature 36.6 C Heart Rate 70 Heart Rate [ 61 Brachial] Heart Rate [ 51 L Monitoring electrodes] Respiratory 20 20 Rate Blood Pressure [Left Brachial artery] Blood Pressure 108/53 L 106/45 L [Right Brachial artery] O2 Saturation 96 03/17/21 03/17/21 03/17/21 13:06 15:02 15:47 Temperature 36.6 C 36.8 C Heart Rate 80 Heart Rate [ 69 Brachial] Heart Rate [ 60 Monitoring electrodes] Respiratory 22 16 28 H Rate Blood Pressure [Left Brachial artery] Blood Pressure 131/50 H 121/57 L [Right Brachial artery] O2 Saturation 99 97 Oxygen O2 Source [With Activity] Room air O2 Source Nasal cannula I&O (Last 24 Hrs): Intake and Output Totals x24h 03/15/21 03/16/21 03/17/21 23:59 23:59 23:59 Intake Total 2750 2570 1470 Balance 2750 2570 1470 General: Alert, Oriented x3 HEENT: Mucous membr. moist/pink, Other (Tender over occiput, no swelling or bleeding) Neck: Supple, No JVD Neuro: Alert, Non Focal Cardiovascular: Regular rate, No murmurs Respiratory: Wheezes Abdomen: Soft (Obese with pannus) Extremities: No clubbing, No edema - Results Results: Laboratory Results WBC 20.8 x10^3/uL (4.8-10.8) H 03/17/21 05:40 RBC 4.35 10^6/uL (4.20-5.40) 03/17/21 05:40 Hgb 14.1 g/dL (12.0-16.0) 03/17/21 05:40 Hct 43.9 % (37.0-47.0) 03/17/21 05:40 MCV 100.9 fL (81.0-99.0) H 03/17/21 05:40 MCH 32.4 pg (27.0-31.0) H 03/17/21 05:40 MCHC 32.1 g/dL (32.0-36.0) 03/17/21 05:40 RDW 12.6 % (12.0-15.0) 03/17/21 05:40 Plt Count 206 10^3/uL (130-450) 03/17/21 05:40 MPV 11.0 fL (7.9-10.8) H 03/17/21 05:40 Neut # (Auto) 19.3 10^3/uL (1.5-6.6) H 03/17/21 05:40 Lymph # (Auto) 0.7 10^3/uL (1.5-3.5) L 03/17/21 05:40 Miner # (Auto) 0.6 10^3/uL (0.0-1.0) 03/17/21 05:40 Eos # (Auto) 0.0 10^3/uL (0.0-0.7) 03/17/21 05:40 Baso # (Auto) 0.0 10^3/uL (0.0-0.1) 03/17/21 05:40 Absolute Nucleated RBC 0.00 x10^3/uL 03/17/21 05:40 Nucleated RBC % 0.0 /100WBC 03/17/21 05:40 Manual Slide Review Indicated 03/17/21 05:40 RBC Morph Micro Appear 1+ ANISOCYTOSIS (NORMAL) 03/17/21 05:40 Sodium 138 mmol/L (135-145) 03/17/21 05:40 Potassium 5.0 mmol/L (3.5-5.0) 03/17/21 05:40 Chloride 106 mmol/L (101-111) 03/17/21 05:40 Carbon Dioxide 23 mmol/L (21-32) 03/17/21 05:40 Anion Gap 9.0 (6-13) 03/17/21 05:40 BUN 23 mg/dL (6-20) H 03/17/21 05:40 Creatinine 1.0 mg/dL (0.4-1.0) 03/17/21 05:40 Estimated GFR (MDRD) 57 (>89) L 03/17/21 05:40 Glucose 298 mg/dL (70-100) H 03/17/21 05:40 POC Whole Bld Glucose 429 mg/dL (70 - 100) H 03/17/21 11:11 Estimat Average Glucose 186 mg/dL (70-100) H 03/17/21 05:40 Hemoglobin A1c % 8.1 % (4.27-6.07) H 03/17/21 05:40 Lactic Acid 2.9 mmol/L (0.5-2.2) H 03/15/21 16:52 Calcium 9.9 mg/dL (8.5-10.3) 03/17/21 05:40 Total Bilirubin 0.8 mg/dL (0.2-1.0) 03/15/21 10:22 AST 14 IU/L (10-42) 03/15/21 10:22 ALT 22 IU/L (10-60) 03/15/21 10:22 Alkaline Phosphatase 73 IU/L (42-121) 03/15/21 10:22 Troponin I High Sens 8.1 ng/L (2.3-14.8) 03/15/21 16:52 B-Natriuretic Peptide 32 pg/mL (5-100) 03/15/21 10:22 Total Protein 6.8 g/dL (6.7-8.2) 03/15/21 10:22 Albumin 3.9 g/dL (3.2-5.5) 03/15/21 10:22 Globulin 2.9 g/dL (2.1-4.2) 03/15/21 10:22 Albumin/Globulin Ratio 1.3 (1.0-2.2) 03/15/21 10:22 Lipase 99 U/L (22-51) H 03/15/21 10:22 Cortisol AM Sample 2.7 ug/dL 03/17/21 05:40 Nasal Adenovirus (PCR) NOT DETECTED 03/15/21 11:58 Nasal B. parapertussis DNA (PCR) NOT DETECTED 03/15/21 11:58 Nasal Coronavir 229E PCR NOT DETECTED 03/15/21 11:58 Nasal Coronavir HKU1 PCR NOT DETECTED 03/15/21 11:58 Nasal Coronavir NL63 PCR NOT DETECTED 03/15/21 11:58 Nasal Coronavir OC43 PCR NOT DETECTED 03/15/21 11:58 Nasal Enterovir/Rhinovir PCR NOT DETECTED 03/15/21 11:58 Nasal Influenza B PCR NOT DETECTED 03/15/21 11:58 Nasal Influenza A PCR NOT DETECTED 03/15/21 11:58 Nasal Parainfluen 1 PCR NOT DETECTED 03/15/21 11:58 Nasal Parainfluen 2 PCR NOT DETECTED 03/15/21 11:58 Nasal Parainfluen 3 PCR NOT DETECTED 03/15/21 11:58 Nasal Parainfluen 4 PCR NOT DETECTED 03/15/21 11:58 Nasal RSV (PCR) NOT DETECTED 03/15/21 11:58 Nasal B.pertussis DNA PCR NOT DETECTED 03/15/21 11:58 Nasal C.pneumoniae (PCR) NOT DETECTED 03/15/21 11:58 Azar Human Metapneumo PCR NOT DETECTED 03/15/21 11:58 Nasal M.pneumoniae (PCR) NOT DETECTED 03/15/21 11:58 Nasal SARS-CoV-2 (PCR) NOT DETECTED 03/15/21 11:58 - Procedures Procedures: Procedures (02/05/21) ESOPHAGOGASTRODUODENOSCOPY [EGD] W/CLOSED BIOPSY (11/29/13) INSERTION OF INFUSION DEV INTO SUP VENA CAVA, PERC APPROACH (12/28/17) MANUAL RUPT JOINT ADHES (04/27/14) TOTAL KNEE REPLACEMENT (06/16/14)
--- NOTE | 2021-03-17 17:33 | CT Report ---
PROCEDURE: HEAD WO INDICATIONS: fell in hosp room, hit posterior head TECHNIQUE: Noncontrast 4.5 mm thick angled axial sections acquired from the foramen magnum to the vertex. For r adiation dose reduction, the following was used: automated exposure control, adjustment of mA and/or kV according to patient size. COMPARISON: None. FINDINGS: Image quality: Excellent. CSF spaces: Basal cisterns are patent. No extra-axial fluid collections. Ventricles are normal in size and shape. Brain: No midline shift. No intracranial masses or hemorrhage. Garcia-white matter interface is norm al. Skull and face: Calvarium and visualized facial bones are intact, without suspicious lesions. Sinuses: Visualized sinuses and mastoids are clear. IMPRESSION: No acute intracranial disease process. Reviewed by: aMra Payne MD, PhD on 03/17/2021 4:32 PM [email or web address] Approved by: Mara Payne MD, PhD on 03/17/2021 4:32 PM [facility]DT Station ID: [id number]
[2021-03-17] MEDS: traMADol 50 MG TABLET PO PRN (21:22)
[2021-03-17] MEDS: INSULIN GLARGINE 300 UNIT/3 ML PEN SUBQ SCH (22:15)
[2021-03-18] MEDS: traMADol 50 MG TABLET PO PRN ×3 (03:54→21:14)
[2021-03-18] MEDS: methylPREDNISolone SUCCINATE 40 MG/ML VIAL IVP SCH ×3 (05:40→21:15)
[2021-03-18] MEDS: ACETAMINOPHEN 325 MG TABLET PO PRN (05:40)
[2021-03-18] MEDS: LEVALBUTEROL 1.25 MG/3 ML NEB INH SCH ×4 (07:22→19:44)
[2021-03-18] MEDS: FORMOTEROL FUMARATE NEB 20 MCG/2 ML INH SCH ×2 (07:23→19:44)
[2021-03-18] MEDS: BUDESONIDE 0.5 MG/2 ML NEB INH SCH ×2 (07:23→19:44)
[2021-03-18] MEDS ORDERED: METOPROLOL SUCCINATE 50 MG TABLET PO SCH (09:00)
--- NOTE | 2021-03-18 09:13 | PROVIDER PROGRESS NOTE ---
Assessment/Plan - Problem List (1) Adrenal insufficiency Assessment/Plan: This is felt to be the cause of her marked hypotension She had been sent into the ED because blood pressure at a PCP visit was 60 sys tolic. The patient reported that she has been feeling very weak ever since discharge from her Covid admission a month ago (perhaps people felt she had "long Covid"). She then reported that she always runs low blood pressures, measures them at home because she is on cardiac meds and has many days of running 68/40, 70/50. By her admission labs showing prerenal azotemia, she was probably somewhat d ehydrated, being on Lasix and spironolactone. She got 2L saline in ED, then none further due to LVEF 35%. We held several of her home medications until BP improved yesterday to 120's systolic, then meds resumed. We ruled out septic shock by normal lactic acid level. We ruled out cardiogenic shock with stable troponins. Her morning cortisol is very low, suggesting severe adrenal insufficiency. Will start replacement doses of adrenal meds: will change the solumedrol to Predisone daily (and then she needs a taper down very slowly as an outpt to probably 10 mg daily chronically. Will also start a.m. Fludrocortisome 0.1 mg daily. Follow BMP daily. I moved the Lisinopril to hs, since she is developing supine HTN. She should go home with dosing Lisinopril that way. I explained this amd all the above to her. She understood and is agreeable with the plan. (2) COPD exacerbation Assessment/Plan: Since this patient's dyspnea was her symptom before getting 2 L of IV fluid in the ED, suspect that this current presentation with SOB complaint, was a COPD exacerbation. This parallels her stating that she had just come off her oral steroids, it was tapered to off. Continue scheduled nebulizers 4 times daily and prn every 4 hours. Continue IV steroids today, then change to oral Prednisone tomorrow. Will continue all other respiratory medications such as Singulair or Mucinex. She was on home O2. We will give supplemental oxygen to keep saturations greater than 88%. We will order her home Trilogy machine to use here. Patient states her home nebulizer machine is broken, therefore I am ordering a home nebulizer machine to administer bronchodilators to treat her COPD. (3) Supine hypertension Assessment/Plan: This was documented with orthostatic VS checks. I moved the Lisinopril to hs, since she is developing supine HTN. She should go home with dosing Lisinopril that way. (4) Chronic HFrEF (heart failure with reduced ejection fraction) Assessment/Plan: Echo was done about 3 months ago and showed LVEF of 35%. After 2 L of fluid given in the ED, we did not order further IV hydration We will continue with telemetry and she has her AICD in place. We resumed her beta-julius, SARAH and spironolactone since her blood pressure has improved. I moved her SARAH to bedtime, for supine HTN management. Follow strict I's and O's so that we do not add to pulmonary vascular congestion. (5) Diabetes mellitus Qualifiers: Diabetes mellitus type: type 2 Assessment/Plan: She was ordered to take Metformin at home only when she was on Prednisone, she claimed. She is on a Reg diet (at her request to Dietary), fingerstick checks and coverage with sliding scale insulin coverage. Her A1c came back at 8.1 Starting IV steroids is raising her sugars, and we need to add Lantus. The plan is to start oral agents chronically, and maximize their doses, because she refuses to take insulin at home. She does understand she has to be on some diabetic management because she will now be on some form of steroids chronically. (6) Morbid obesity with BMI of 45.0-49.9, adult Assessment/Plan: As per Hx (7) Fall during current hospitalization Qualifiers: Encounter type: subsequent encounter Qualified Code(s): W19.XXXD - Unspecified fall, subsequent encounter; Y92.239 - Unspecified place in hospital as the place of occurrence of the external cause Assessment/Plan: This happened on 03/17/21 at about 1330. She was not lightheaded and had a normal BP. She describes getting tangled in her oxygen tubing, causing the fall. A STAT head CT was ordered and showed no fracture and no bleeding. - Current Meds Current Meds: Current Medications Generic Name Dose Route Start Last Admin Trade Name Freq PRN Reason Stop Dose Admin Acetaminophen 650 mg 03/15/21 16:37 03/18/21 05:40 Acetaminophen 325 Mg Tablet PO 650 mg Q4HR PRN Administration Pain 1 to 4 Amiodarone HCl 100 mg 03/17/21 09:00 03/17/21 09:40 Amiodarone 200 Mg Tablet PO 100 mg DAILY ROMAN Administration Apixaban 5 mg 03/17/21 09:00 03/17/21 22:08 Apixaban 5 Mg Tablet PO 5 mg BID ROMAN Administration Budesonide 0.5 mg 03/17/21 09:00 03/18/21 07:23 Budesonide 0.5 Mg/2 Ml Neb INH 0.5 mg RTBID ROMAN Administration Formoterol Fumarate 20 mcg 03/17/21 09:00 03/18/21 07:23 Formoterol Fumarate Neb 20 Mcg/2 Ml INH 20 mcg RTBID ROMAN Administration Guaifenesin 600 mg 03/17/21 09:00 03/17/21 22:08 Guaifenesin 600 Mg Tablet PO 600 mg BID ROMAN Administration Insulin Aspart 3 - 11 unit 03/17/21 08:00 03/17/21 22:10 Insulin Aspart 300 Unit/3 Ml Pen SUBQ 11 unit 0800,1200,1700,2100 ROMAN Administration Protocol Insulin Glargine 10 unit 03/16/21 21:00 03/17/21 22:15 Insulin Glargine 300 Unit/3 Ml Pen SUBQ 10 unit QPM ROMAN Administration Levalbuterol HCl 1.25 mg 03/15/21 19:00 03/18/21 07:22 Levalbuterol 1.25 Mg/3 Ml Neb INH 1.25 mg RTQ4H ROMAN Administration Lisinopril 2.5 mg 03/17/21 09:00 03/17/21 09:41 Lisinopril 5 Mg Tablet PO 2.5 mg DAILY ROMAN Administration Loratadine 10 mg 03/17/21 09:00 03/17/21 09:41 Loratadine 10 Mg Tablet PO 10 mg DAILY ROMAN Administration Methylprednisolone 40 mg 03/15/21 22:00 03/18/21 05:40 Methylprednisolone Succinate 40 Mg/Ml Vial IVP 40 mg TID ROMAN Administration Montelukast Sodium 10 mg 03/17/21 09:00 03/17/21 09:40 Montelukast 10 Mg Tablet PO 10 mg DAILY ROMAN Administration Sodium Chloride 10 ml 03/15/21 16:37 03/16/21 14:11 Sodium Chloride Flush 0.9% 10 Ml Syringe IVP 10 ml PRN PRN Administration NEEDED PER PROVIDER ORDERS Sodium Chloride 10 ml 03/15/21 17:00 03/18/21 00:00 Sodium Chloride Flush 0.9% 10 Ml Syringe IVP 10 ml 0100,0900,1700 ROMAN Administration Tramadol HCl 50 mg 03/17/21 20:57 03/18/21 03:54 Tramadol 50 Mg Tablet PO 50 mg Q4HR PRN Administration PAIN - Lab Result Fish Bone Diagrams: 03/17/21 05:40 03/17/21 05:40 - Additional Planning My Orders: My Active Orders 03/17/21 08:48 Dietary [Nutrition Consult] [CONS] Routine 03/17/21 08:55 Orthostatic [Vital Signs - Orthostatic] [RC] QSHIFT 03/17/21 09:00 Albuterol 2.5 mg INH Q4H PRN Amiodarone [Pacerone] 100 mg PO DAILY Apixaban [Eliquis] 5 mg PO BID Budesonide [Pulmicort] 0.5 mg INH RTBID Formoterol Fumarate [Perforomist] 20 mcg INH RTBID Loratadine [Claritin] 10 mg PO DAILY Montelukast [Singulair] 10 mg PO DAILY guaiFENesin [Mucinex] 600 mg PO BID lisinopriL [Zestril] 2.5 mg PO DAILY 03/17/21 Dinner DIET [Regular Diet] [DIET] 03/18/21 09:00 Metoprolol Succinate [Toprol Xl] 25 mg PO DAILY 03/19/21 05:00 BMP - BASIC METABOLIC PANEL [CHEM] DAILYLAB CBC - COMP BLD CT W/AUTO DIFF [HEME] DAILYLAB 03/20/21 05:00 BMP - BASIC METABOLIC PANEL [CHEM] DAILYLAB CBC - COMP BLD CT W/AUTO DIFF [HEME] DAILYLAB 03/21/21 05:00 BMP - BASIC METABOLIC PANEL [CHEM] DAILYLAB CBC - COMP BLD CT W/AUTO DIFF [HEME] DAILYLAB Subjective - Subjective Patient Reports: Dizzines (and Lightheaded when walks to bathroom), Shortness of Breath (Wheezy) Objective Vital Signs: Vital Signs - 24 hr 03/17/21 03/17/21 03/17/21 09:36 11:02 13:06 Temperature 36.6 C Heart Rate 70 Heart Rate [ 61 69 Brachial] Heart Rate [ Monitoring electrodes] Respiratory 20 22 Rate Blood Pressure 106/45 L 131/50 H [Right Brachial artery] O2 Saturation 99 03/17/21 03/17/21 03/17/21 15:02 15:47 20:03 Temperature 36.8 C 36.8 C Heart Rate 80 Heart Rate [ 76 Brachial] Heart Rate [ 60 46 L Monitoring electrodes] Respiratory 16 28 H 24 Rate Blood Pressure 121/57 L 110/38 L [Right Brachial artery] O2 Saturation 97 97 03/17/21 03/17/21 03/17/21 20:17 20:31 22:33 Temperature Heart Rate 46 L Heart Rate [ Brachial] Heart Rate [ 83 Monitoring electrodes] Respiratory 18 Rate Blood Pressure 116/40 L [Right Brachial artery] O2 Saturation 03/18/21 03/18/21 03/18/21 00:03 05:19 07:30 Temperature 36.4 C L 36.6 C Heart Rate 37 L Heart Rate [ 60 Brachial] Heart Rate [ 75 Monitoring electrodes] Respiratory 20 20 18 Rate Blood Pressure 125/72 124/61 [Right Brachial artery] O2 Saturation 100 98 Oxygen O2 Source [With Activity] Room air O2 Source Nasal cannula I&O (Last 24 Hrs): Intake and Output Totals x24h 03/16/21 03/17/21 03/18/21 23:59 23:59 23:59 Intake Total 2570 1870 440 Balance 2570 1870 440 General: Alert, Oriented x3 HEENT: Mucous membr. moist/pink Neck: Supple, Other (Obese) Neuro: Alert, Non Focal Cardiovascular: Regular rate, No murmurs Respiratory: Wheezes (diffuse ant and posterior) Abdomen: Soft (Obese with pannus) Extremities: No edema, No tenderness/swelling - Results Results: Laboratory Results WBC 20.8 x10^3/uL (4.8-10.8) H 03/17/21 05:40 RBC 4.35 10^6/uL (4.20-5.40) 03/17/21 05:40 Hgb 14.1 g/dL (12.0-16.0) 03/17/21 05:40 Hct 43.9 % (37.0-47.0) 03/17/21 05:40 MCV 100.9 fL (81.0-99.0) H 03/17/21 05:40 MCH 32.4 pg (27.0-31.0) H 03/17/21 05:40 MCHC 32.1 g/dL (32.0-36.0) 03/17/21 05:40 RDW 12.6 % (12.0-15.0) 03/17/21 05:40 Plt Count 206 10^3/uL (130-450) 03/17/21 05:40 MPV 11.0 fL (7.9-10.8) H 03/17/21 05:40 Neut # (Auto) 19.3 10^3/uL (1.5-6.6) H 03/17/21 05:40 Lymph # (Auto) 0.7 10^3/uL (1.5-3.5) L 03/17/21 05:40 [place] # (Auto) 0.6 10^3/uL (0.0-1.0) 03/17/21 05:40 Eos # (Auto) 0.0 10^3/uL (0.0-0.7) 03/17/21 05:40 Baso # (Auto) 0.0 10^3/uL (0.0-0.1) 03/17/21 05:40 Absolute Nucleated RBC 0.00 x10^3/uL 03/17/21 05:40 Nucleated RBC % 0.0 /100WBC 03/17/21 05:40 Manual Slide Review Indicated 03/17/21 05:40 RBC Morph Micro Appear 1+ ANISOCYTOSIS (NORMAL) 03/17/21 05:40 Sodium 138 mmol/L (135-145) 03/17/21 05:40 Potassium 5.0 mmol/L (3.5-5.0) 03/17/21 05:40 Chloride 106 mmol/L (101-111) 03/17/21 05:40 Carbon Dioxide 23 mmol/L (21-32) 03/17/21 05:40 Anion Gap 9.0 (6-13) 03/17/21 05:40 BUN 23 mg/dL (6-20) H 03/17/21 05:40 Creatinine 1.0 mg/dL (0.4-1.0) 03/17/21 05:40 Estimated GFR (MDRD) 57 (>89) L 03/17/21 05:40 Glucose 298 mg/dL (70-100) H 03/17/21 05:40 POC Whole Bld Glucose 332 mg/dL (70 - 100) H 03/18/21 07:57 Estimat Average Glucose 186 mg/dL (70-100) H 03/17/21 05:40 Hemoglobin A1c % 8.1 % (4.27-6.07) H 03/17/21 05:40 Lactic Acid 2.9 mmol/L (0.5-2.2) H 03/15/21 16:52 Calcium 9.9 mg/dL (8.5-10.3) 03/17/21 05:40 Total Bilirubin 0.8 mg/dL (0.2-1.0) 03/15/21 10:22 AST 14 IU/L (10-42) 03/15/21 10:22 ALT 22 IU/L (10-60) 03/15/21 10:22 Alkaline Phosphatase 73 IU/L (42-121) 03/15/21 10:22 Troponin I High Sens 8.1 ng/L (2.3-14.8) 03/15/21 16:52 B-Natriuretic Peptide 32 pg/mL (5-100) 03/15/21 10:22 Total Protein 6.8 g/dL (6.7-8.2) 03/15/21 10:22 Albumin 3.9 g/dL (3.2-5.5) 03/15/21 10:22 Globulin 2.9 g/dL (2.1-4.2) 03/15/21 10:22 Albumin/Globulin Ratio 1.3 (1.0-2.2) 03/15/21 10:22 Lipase 99 U/L (22-51) H 03/15/21 10:22 Cortisol AM Sample 2.7 ug/dL 03/17/21 05:40 Nasal Adenovirus (PCR) NOT DETECTED 03/15/21 11:58 Nasal B. parapertussis DNA (PCR) NOT DETECTED 03/15/21 11:58 Nasal Coronavir 229E PCR NOT DETECTED 03/15/21 11:58 Nasal Coronavir HKU1 PCR NOT DETECTED 03/15/21 11:58 Nasal Coronavir NL63 PCR NOT DETECTED 03/15/21 11:58 Nasal Coronavir OC43 PCR NOT DETECTED 03/15/21 11:58 Nasal Enterovir/Rhinovir PCR NOT DETECTED 03/15/21 11:58 Nasal Influenza B PCR NOT DETECTED 03/15/21 11:58 Nasal Influenza A PCR NOT DETECTED 03/15/21 11:58 Nasal Parainfluen 1 PCR NOT DETECTED 03/15/21 11:58 Nasal Parainfluen 2 PCR NOT DETECTED 03/15/21 11:58 Nasal Parainfluen 3 PCR NOT DETECTED 03/15/21 11:58 Nasal Parainfluen 4 PCR NOT DETECTED 03/15/21 11:58 Nasal RSV (PCR) NOT DETECTED 03/15/21 11:58 Nasal B.pertussis DNA PCR NOT DETECTED 03/15/21 11:58 Nasal C.pneumoniae (PCR) NOT DETECTED 03/15/21 11:58 Azar Human Metapneumo PCR NOT DETECTED 03/15/21 11:58 Nasal M.pneumoniae (PCR) NOT DETECTED 03/15/21 11:58 Nasal SARS-CoV-2 (PCR) NOT DETECTED 03/15/21 11:58 - Procedures Procedures: Procedures (02/05/21) ESOPHAGOGASTRODUODENOSCOPY [EGD] W/CLOSED BIOPSY (11/29/13) INSERTION OF INFUSION DEV INTO SUP VENA CAVA, PERC APPROACH (12/28/17) MANUAL RUPT JOINT ADHES (04/27/14) TOTAL KNEE REPLACEMENT (06/16/14)
[2021-03-18] MEDS: INSULIN ASPART 300 UNIT/3 ML PEN SUBQ SCH ×4 (10:31→21:19)
[2021-03-18] MEDS: MONTELUKAST 10 MG TABLET PO SCH (10:34)
[2021-03-18] MEDS: APIXABAN 5 MG TABLET PO SCH ×2 (10:34→21:14)
[2021-03-18] MEDS: guaiFENesin 600 MG TABLET PO SCH ×2 (10:35→21:14)
[2021-03-18] MEDS: LORATADINE 10 MG TABLET PO SCH (10:35)
[2021-03-18] MEDS: lisinopriL 5 MG TABLET PO SCH ×2 (10:35→21:13)
[2021-03-18] MEDS: METOPROLOL SUCCINATE 25 MG TABLET PO SCH (10:36)
[2021-03-18] MEDS: AMIODARONE 200 MG TABLET PO SCH (12:36)
[2021-03-18] MEDS: FLUDROCORTISONE 0.1 MG TABLET PO SCH (12:38)
[2021-03-18] MEDS: metFORMIN 500 MG TABLET PO SCH (12:38)
[2021-03-18] MEDS: SODIUM CHLORIDE FLUSH 0.9% 10 ML SYRINGE IVP SCH ×4 (12:45→23:46)
[2021-03-18] MEDS: SODIUM CHLORIDE FLUSH 0.9% 10 ML SYRINGE IVP PRN (15:11)
[2021-03-18] MEDS ORDERED: INSULIN GLARGINE 300 UNIT/3 ML PEN SUBQ SCH (21:00)
[2021-03-18] MEDS: ZOLPIDEM 5 MG TABLET PO PRN (21:14)
[2021-03-19] MEDS: traMADol 50 MG TABLET PO PRN ×5 (02:56→21:29)
[2021-03-19 06:09] LABS: BASOPHILS % (AUTO) 0.3 %; HCT - HEMATOCRIT 44.7 % (37.0-47.0); HGB - HEMOGLOBIN 14.5 g/dL (12.0-16.0); LYMPHOCYTES # (AUTO) 0.7 10^3/uL (1.5-3.5); LYMPHOCYTES % (AUTO) 4.2 %; MEAN CORPUSCULAR HEMOGLOBIN 32.4 pg (27.0-31.0); MEAN CORPUSCULAR HGB CONC 32.4 g/dL (32.0-36.0); MEAN CORPUSCULAR VOLUME 99.8 fL (81.0-99.0); MEAN PLATELET VOLUME 10.6 fL (7.9-10.8); MONOCYTES # (AUTO) 0.6 10^3/uL (0.0-1.0); MONOCYTES % (AUTO) 3.5 %; NEUTROPHILS # (AUTO) 14.3 10^3/uL (1.5-6.6); PLT - PLATELET COUNT 218 10^3/uL (130-450); RED BLOOD COUNT 4.48 10^6/uL (4.20-5.40); RED CELL DISTRIBUTION WIDTH 12.8 % (12.0-15.0); WHITE BLOOD COUNT 15.9 x10^3/uL (4.8-10.8)
[2021-03-19 06:22] LABS: CALCIUM 9.5 mg/dL (8.5-10.3); CREATININE 1.1 mg/dL (0.4-1.0); MAGNESIUM 2.3 mg/dL (1.7-2.8); POTASSIUM 4.9 mmol/L (3.5-5.0)
--- NOTE | 2021-03-19 09:01 | PROVIDER PROGRESS NOTE ---
Subjective - Prog Note Date Prog Note Date: 03/19/21 - Subjective Subjective: She still complains of headache since she fell. Still feels short of breath and sometimes lightheaded when standing up quickly. She been able to ambulate and shower. Current Medications - Current Medications Current Medications: Active Medications Acetaminophen (Acetaminophen 325 Mg Tablet) 650 mg PO Q4HR PRN PRN Reason: Pain 1 to 4 Last Admin: 03/18/21 05:40 Dose: 650 mg Documented by: Albuterol (Albuterol Neb 2.5 Mg/3 Ml) 2.5 mg INH Q4H PRN PRN Reason: Shortness of Air/Wheezing Amiodarone HCl (Amiodarone 200 Mg Tablet) 100 mg PO DAILY [facility] Last Admin: 03/18/21 12:36 Dose: 100 mg Documented by: Apixaban (Apixaban 5 Mg Tablet) 5 mg PO BID [facility] Last Admin: 03/18/21 21:14 Dose: 5 mg Documented by: Budesonide (Budesonide 0.5 Mg/2 Ml Neb) 0.5 mg INH RTBID [facility] Last Admin: 03/18/21 19:44 Dose: 0.5 mg Documented by: Fludrocortisone Acetate (Fludrocortisone 0.1 Mg Tablet) 0.1 mg PO DAILY [facility] Last Admin: 03/18/21 12:38 Dose: 0.1 mg Documented by: Formoterol Fumarate (Formoterol Fumarate Neb 20 Mcg/2 Ml) 20 mcg INH RTBID [facility] Last Admin: 03/18/21 19:44 Dose: 20 mcg Documented by: Guaifenesin (Guaifenesin 600 Mg Tablet) 600 mg PO BID [facility] Last Admin: 03/18/21 21:14 Dose: 600 mg Documented by: Insulin Aspart (Insulin Aspart 300 Unit/3 Ml Pen) 3 - 11 unit SUBQ 0800 ,1200,1700,2100 [facility]; Protocol Last Admin: 03/18/21 21:19 Dose: 7 unit Documented by: Insulin Glargine (Insulin Glargine 300 Unit/3 Ml Pen) 14 unit SUBQ QPM [facility] Last Admin: 03/18/21 21:18 Dose: 14 unit Documented by: Lisinopril (Lisinopril 5 Mg Tablet) 2.5 mg PO QPM [facility] Last Admin: 03/18/21 21:13 Dose: 2.5 mg Documented by: Loratadine (Loratadine 10 Mg Tablet) 10 mg PO DAILY [facility] Last Admin: 03/18/21 10:35 Dose: 10 mg Documented by: Metformin HCl (Metformin 500 Mg Tablet) 500 mg PO DAILYWM [facility] Last Admin: 03/18/21 12:38 Dose: 500 mg Documented by: Metoprolol Succinate (Metoprolol Succinate 25 Mg Tablet) 25 mg PO DAILY [facility] Last Admin: 03/18/21 10:36 Dose: 25 mg Documented by: Montelukast Sodium (Montelukast 10 Mg Tablet) 10 mg PO DAILY [facility] Last Admin: 03/18/21 10:34 Dose: 10 mg Documented by: Prednisone (Prednisone 20 Mg Tablet) 40 mg PO DAILYWM [facility] Sodium Chloride (Sodium Chloride Flush 0.9% 10 Ml Syringe) 10 ml IVP PRN PRN PRN Reason: NEEDED PER PROVIDER ORDERS Last Admin: 03/18/21 15:11 Dose: 10 ml Documented by: Sodium Chloride (Sodium Chloride Flush 0.9% 10 Ml Syringe) 10 ml IVP 0100,0900,1700 [facility] Last Admin: 03/18/21 23:46 Dose: 10 ml Documented by: Tramadol HCl (Tramadol 50 Mg Tablet) 50 mg PO Q4HR PRN PRN Reason: PAIN Last Admin: 03/19/21 07:28 Dose: 50 mg Documented by: Zolpidem Tartrate (Zolpidem 5 Mg Tablet) 5 mg PO QPM PRN PRN Reason: Insomnia Last Admin: 03/18/21 21:14 Dose: 5 mg Documented by: Furosemide 40 mg PO BID 09/07/20 Apixaban [Eliquis] 5 mg PO BID 10/24/20 Amiodarone [Pacerone] 100 mg PO DAILY 02/04/21 Loratadine [Claritin] 10 mg PO DAILY 02/04/21 Arformoterol Tartrate [Brovana] 2 ml INH BID 03/16/21 Metformin HCl [Glumetza] 500 mg PO DAILY 03/16/21 Montelukast [Singulair] 10 mg PO DAILY 03/16/21 Nitroglycerin [Nitrostat] 0.4 mg PO Q5MIN PRN 03/16/21 Objective - Vital Signs/Intake & Output Reviewed Vital Signs: Yes Vital Signs: Vital Signs x48h Temp Pulse Resp BP Pulse Ox 03/19/21 04:58 36.7 C 78 18 124/48 L 96 Intake & Output: Intake & Output 03/16/21 03/17/21 03/18/21 03/19/21 23:59 23:59 23:59 23:59 Intake Total 2570 1870 2620 900 Balance 2570 1870 2620 900 - Objective General Appearance: positive: No acute distress, Alert Eyes Bilateral: positive: Normal inspection, Conjunctivae nml ENT: positive: ENT inspection nml, Other (Nasal cannula in place.) Neck: positive: Nml inspection Respiratory: positive: No respiratory distress, Wheezes, Other (She is tachypneic and has wheezing throughout all lung mathews.) Cardiovascular: positive: Regular rate & rhythm. negative: Tachycardia Abdomen: positive: Non-tender, No distention. negative: Tenderness Skin: positive: Warm, Dry Extremities: positive: Pedal edema (Trace edema.) Neurologic/Psychiatric: negative: Disoriented to person, Disoriented to place - Lab Results Fish Bones: 03/19/21 05:35 03/19/21 05:35 Other Labs: Lab Results x24hrs 03/19/21 03/19/21 03/19/21 Range/Units 07:24 05:35 05:35 WBC 15.9 H (4.8-10.8) x10^3/uL RBC 4.48 (4.20-5.40) 10^6/uL Hgb 14.5 (12.0-16.0) g/dL Hct 44.7 (37.0-47.0) % MCV 99.8 H (81.0-99.0) fL MCH 32.4 H (27.0-31.0) pg MCHC 32.4 (32.0-36.0) g/dL RDW 12.8 (12.0-15.0) % Plt Count 218 (130-450) 10^3/uL MPV 10.6 (7.9-10.8) fL Neut # (Auto) 14.3 H (1.5-6.6) 10^3/uL Lymph # (Auto) 0.7 L (1.5-3.5) 10^3/uL [place] # (Auto) 0.6 (0.0-1.0) 10^3/uL Eos # (Auto) 0.0 (0.0-0.7) 10^3/uL Baso # (Auto) 0.0 (0.0-0.1) 10^3/uL Absolute Nucleated RBC 0.00 x10^3/uL Nucleated RBC % 0.0 /100WBC Sodium 131 L (135-145) mmol/L Potassium 4.9 (3.5-5.0) mmol/L Chloride 97 L (101-111) mmol/L Carbon Dioxide 22 (21-32) mmol/L Anion Gap 12.0 (6-13) BUN 31 H (6-20) mg/dL Creatinine 1.1 H (0.4-1.0) mg/dL Estimated GFR (MDRD) 51 L (>89) Glucose 356 H (70-100) mg/dL POC Whole Bld Glucose 271 H (70 - 100) mg/dL Calcium 9.5 (8.5-10.3) mg/dL Magnesium 2.3 (1.7-2.8) mg/dL 03/18/21 03/18/21 03/18/21 Range/Units 21:04 16:33 11:49 WBC (4.8-10.8) x10^3/uL RBC (4.20-5.40) 10^6/uL Hgb (12.0-16.0) g/dL Hct (37.0-47.0) % MCV (81.0-99.0) fL MCH (27.0-31.0) pg MCHC (32.0-36.0) g/dL RDW (12.0-15.0) % Plt Count (130-450) 10^3/uL MPV (7.9-10.8) fL Neut # (Auto) (1.5-6.6) 10^3/uL Lymph # (Auto) (1.5-3.5) 10^3/uL [place] # (Auto) (0.0-1.0) 10^3/uL Eos # (Auto) (0.0-0.7) 10^3/uL Baso # (Auto) (0.0-0.1) 10^3/uL Absolute Nucleated RBC x10^3/uL Nucleated RBC % /100WBC Sodium (135-145) mmol/L Potassium (3.5-5.0) mmol/L Chloride (101-111) mmol/L Carbon Dioxide (21-32) mmol/L Anion Gap (6-13) BUN (6-20) mg/dL Creatinine (0.4-1.0) mg/dL Estimated GFR (MDRD) (>89) Glucose (70-100) mg/dL POC Whole Bld Glucose 260 H 253 H 374 H (70 - 100) mg/dL Calcium (8.5-10.3) mg/dL Magnesium (1.7-2.8) mg/dL Assessment/Plan - Problem List (1) COPD exacerbation Impression: This is improved but still ongoing. She is down to her baseline oxygen requirements but still has wheezing throughout all lung mathews and appears tachypneic at rest. She is now on prednisone 40 mg daily we will continue with duo nebs [id number]. I am hopeful she will be able to be discharged home tomorrow on a prednisone taper. (2) Hypotension Impression: This is now resolved. Suspect this is likely related to her heart failure medications although there is concern as well for potentially secondary adrenal insufficiency due to her frequent steroid use. Continue to monitor on her current dose of antihypertensives. Qualifiers: Hypotension type: unspecified hypotension type Qualified Code(s): I95.9 - Hypotension, unspecified (3) Adrenal insufficiency Impression: There was concern for adrenal insufficiency given her a.m. cortisol was 2.7. This was unfortunately checked while she was receiving IV Solu-Medrol for the COPD exacerbation which can cause cortisol suppression. She has been started on fludrocortisone 0.1 mg daily and is currently on prednisone for COPD exacerbation. I discussed with the patient today that at this point in time, I cannot definitively say that she has secondary adrenal insufficiency secondary to her prednisone use but that at this time, we will continue to treat her with fludrocortisone and will discharge her on a prednisone taper when she is stable. I have recommended that she follow-up with her primary care provider for recheck of her morning cortisol and ACTH stim test when she is off of steroids for a brief period of time. I discussed with her that we cannot do this during this hospitalization as she requires the steroids for the COPD exacerbation. (4) Diabetes mellitus Impression: Her blood glucose has been poorly controlled due to her diabetes and the fact she is receiving steroids. Her Lantus dose was increased yesterday evening. She is also now on Metformin. She is once again adamant that she will not take any insulin. She is agreeable to Metformin and we discussed willing to taper this over 1 to 2 weeks. She will also likely need a second oral hypoglycemic agent such as glipizide. She will need close follow-up with her primary care physician. Qualifiers: Diabetes mellitus type: type 2 (5) Chronic HFrEF (heart failure with reduced ejection fraction) Impression: Stable and not in exacerbation. We are continuing her metoprolol but decrease the dose to 5 mg daily given the hypotension. She is also on lisinopril 2.5 mg but this is given in the evening. We will resume her home diuretics today. (6) Chronic atrial fibrillation Impression: She is rate controlled and has varied from a sinus rhythm to a paced rhythm. She is on metoprolol and amiodarone. She also remains on Eliquis for anticoagulation. (7) Fall during current hospitalization Impression: She fell on March 17 this was a mechanical fall has her oxygen tubing became tangled in her bed. Head CT showed no acute abnormalities. Qualifiers: Encounter type: subsequent encounter Qualified Code(s): W19.XXXD - Unspecified fall, subsequent encounter; Y92.239 - Unspecified place in hospital as the place of occurrence of the external cause
[2021-03-19] MEDS: INSULIN ASPART 300 UNIT/3 ML PEN SUBQ SCH ×4 (09:07→21:31)
[2021-03-19] MEDS: ACETAMINOPHEN 325 MG TABLET PO PRN ×3 (09:15→21:27)
[2021-03-19] MEDS: AMIODARONE 200 MG TABLET PO SCH (09:22)
[2021-03-19] MEDS: APIXABAN 5 MG TABLET PO SCH ×2 (09:23→21:28)
[2021-03-19] MEDS: FLUDROCORTISONE 0.1 MG TABLET PO SCH (09:23)
[2021-03-19] MEDS: guaiFENesin 600 MG TABLET PO SCH ×2 (09:24→21:28)
[2021-03-19] MEDS: METOPROLOL SUCCINATE 25 MG TABLET PO SCH (09:25)
[2021-03-19] MEDS: LORATADINE 10 MG TABLET PO SCH (09:25)
[2021-03-19] MEDS: MONTELUKAST 10 MG TABLET PO SCH (09:25)
[2021-03-19] MEDS: SODIUM CHLORIDE FLUSH 0.9% 10 ML SYRINGE IVP SCH ×2 (09:26→16:09)
[2021-03-19] MEDS: metFORMIN 500 MG TABLET PO SCH (09:38)
[2021-03-19] MEDS: predniSONE 20 MG TABLET PO SCH (09:39)
[2021-03-19] MEDS: FUROSEMIDE 40 MG TABLET PO SCH ×2 (09:39→21:28)
[2021-03-19] MEDS: FORMOTEROL FUMARATE NEB 20 MCG/2 ML INH SCH ×2 (10:26→20:23)
[2021-03-19] MEDS: IPRATROPIUM/ALBUTEROL 3 ML NEB INH SCH ×3 (10:26→20:23)
[2021-03-19] MEDS: BUDESONIDE 0.5 MG/2 ML NEB INH SCH ×2 (10:26→20:23)
[2021-03-19] MEDS ORDERED: PROCHLORPERAZINE 10 MG/2 ML VIAL IVP PRN (18:21)
[2021-03-19] MEDS ORDERED: lisinopriL 5 MG TABLET PO SCH (21:00)
[2021-03-19] MEDS ORDERED: INSULIN GLARGINE 300 UNIT/3 ML PEN SUBQ SCH (21:00)
[2021-03-19] MEDS: lisinopriL 5 MG TABLET PO SCH (21:28)
[2021-03-19] MEDS: ZOLPIDEM 5 MG TABLET PO PRN (21:44)
[2021-03-20] MEDS: IPRATROPIUM/ALBUTEROL 3 ML NEB INH SCH ×2 (07:16→10:39)
[2021-03-20] MEDS: FORMOTEROL FUMARATE NEB 20 MCG/2 ML INH SCH (07:16)
[2021-03-20] MEDS: BUDESONIDE 0.5 MG/2 ML NEB INH SCH (07:16)
[2021-03-20 07:36] LABS: BASOPHILS # (AUTO) 0.1 10^3/uL (0.0-0.1); BASOPHILS % (AUTO) 0.5 %; EOSINOPHILS # (AUTO) 0.1 10^3/uL (0.0-0.7); EOSINOPHILS % (AUTO) 0.3 %; HCT - HEMATOCRIT 46.4 % (37.0-47.0); HGB - HEMOGLOBIN 15.3 g/dL (12.0-16.0); LYMPHOCYTES # (AUTO) 2.8 10^3/uL (1.5-3.5); LYMPHOCYTES % (AUTO) 18.8 %; MEAN CORPUSCULAR HEMOGLOBIN 32.8 pg (27.0-31.0); MEAN CORPUSCULAR VOLUME 99.4 fL (81.0-99.0); MEAN PLATELET VOLUME 10.3 fL (7.9-10.8); MONOCYTES # (AUTO) 1.4 10^3/uL (0.0-1.0); MONOCYTES % (AUTO) 9.1 %; NEUTROPHILS # (AUTO) 10.4 10^3/uL (1.5-6.6); NEUTROPHILS % (AUTO) 69.3 %; PLT - PLATELET COUNT 216 10^3/uL (130-450); RED BLOOD COUNT 4.67 10^6/uL (4.20-5.40); RED CELL DISTRIBUTION WIDTH 12.8 % (12.0-15.0); WHITE BLOOD COUNT 15.1 x10^3/uL (4.8-10.8)
[2021-03-20] MEDS: SODIUM CHLORIDE FLUSH 0.9% 10 ML SYRINGE IVP SCH ×2 (07:48→09:55)
[2021-03-20] MEDS: INSULIN ASPART 300 UNIT/3 ML PEN SUBQ SCH ×2 (07:48→11:43)
[2021-03-20 07:50] LABS: CALCIUM 9.5 mg/dL (8.5-10.3); CREATININE 1.2 mg/dL (0.4-1.0); POTASSIUM 3.9 mmol/L (3.5-5.0)
[2021-03-20] MEDS: ACETAMINOPHEN 325 MG TABLET PO PRN (08:34)
[2021-03-20] MEDS: metFORMIN 500 MG TABLET PO SCH (08:35)
[2021-03-20] MEDS: AMIODARONE 200 MG TABLET PO SCH (08:36)
[2021-03-20] MEDS: predniSONE 20 MG TABLET PO SCH (08:36)
[2021-03-20] MEDS: LORATADINE 10 MG TABLET PO SCH (08:36)
[2021-03-20] MEDS: APIXABAN 5 MG TABLET PO SCH (08:38)
[2021-03-20] MEDS: MONTELUKAST 10 MG TABLET PO SCH (08:38)
[2021-03-20] MEDS: FLUDROCORTISONE 0.1 MG TABLET PO SCH (08:38)
[2021-03-20] MEDS: FUROSEMIDE 40 MG TABLET PO SCH (08:38)
[2021-03-20] MEDS: METOPROLOL SUCCINATE 25 MG TABLET PO SCH (08:38)
[2021-03-20] MEDS: guaiFENesin 600 MG TABLET PO SCH (08:38)
--- NOTE | 2021-03-20 09:04 | Discharge Plan ---
Discharge Plan Problem Reviewed?: Yes Disposition: Home, Self Care Condition: Stable Prescriptions: predniSONE [Deltasone] 1 tablet PO 0800 #40 tablet Metoprolol Succinate [Toprol Xl] 25 mg PO DAILY #30 tablet Diet: Cardiac Activity Restrictions: Activity as Tolerated Health Concerns: You were seen in the hospital because of low blood pressure. This was felt to be due to some of the medications you are taking at home like metoprolol and lisinopril. Your metoprolol dose was reduced. There was also concern that there may be adrenal insufficiency which is when your adrenal glands do not make enough thyroid hormone. This can happen in someone who takes chronic steroids. As mentioned, it is unclear if this applies to you as the lab value was checked when you are already receiving steroids which would make the lab value low. We will therefore recommend you continue taking the prednisone taper as prescribed and then follow-up with your primary care physician to have repeat testing in the future when you are off of steroids. Plan of Treatment: Take the prednisone taper as prescribed. You will need to be tested again in the future to see if you truly have adrenal insufficiency or not. If your cortisol levels are okay in the future then these medications may be discontinued but it would be important to follow-up with your primary care physician. Please also take a reduced dose of metoprolol. You will now take 25 mg once a day. Please take your lisinopril in the evening. Care Goals: The goal is to treat your underlying COPD and to prevent further episodes of low blood pressure. Assessment: Patient expressed understanding of the treatment plan. Additional Instructions or Follow Up instructions: It is important that you follow-up with your primary care physician as you will need repeat testing to evaluate for adrenal insufficiency when you are off of steroids. You should see your primary care physician in 1 week. No Smoking: If you smoke, Please STOP! Call for help. Follow-up with: Rohini Ceron PA-C [Primary Care Provider] -
--- NOTE | 2021-03-20 11:04 | DISCHARGE SUMMARY ---
Discharge Summary Admit Date: 03/15/21 Discharge Date: 03/20/21 Discharging Provider: iNkhil Cespedes Primary Care Provider: Rohini Ceron Code Status: Attempt Resuscitation Condition at Discharge: Stable Discharge Disposition: Home, Self Care - DIAGNOSES Admission Diagnoses: Hypotension Dyspnea Chronic HFrEF Diabetes mellitus Discharge Diagnoses with Status of Each Condition: COPD exacerbation - improved. Hypotension - resolved. Possible adrenal insufficiency - stable. Diabetes mellitus - stable. Chronic HFrEF - stable. Chronic atrial fibrillation - stable. Fall during current hospitalization - resolved. - HPI History of Present Illness: H&P per Dr. Dockery: This is a 55-year-old female with history of morbid obesity, ex-smoker, COPD on inhalers and Trilogy mask, steroid induced DM, cardiomyopathy with EF 35% on Echo done 3 months ago, history of cardiac arrest requiring resuscitation and subsequent AICD implant. She was hospitalized here a month ago for Covid pneumonia and was has been home and recently developed shortness of breath and weakness and went to see her doctor today. At the doctor's office her blood pressure was 60 and she was sent into the ED for evaluation. On presentation to the ED she described being short of breath, feeling weak and the first blood pressure was 89 systolic. She was felt to be dehydrated by ED work-up and has received 2 L of saline. She has received inhaler treatment with minimal improvement. Because of being on previous steroids she received a dose of Decadron for the possibility of Addisonian crisis causing the hypotension. Despite this her blood pressure is still "soft" at 100 systolic and she is still short of breath and is being admitted to manage these. - HOSPITAL COURSE Hospital Course: She was admitted to the floor for hypotension and a COPD exacerbation. She was given 2 L normal saline initially with improvement in her blood pressure. She was treated with Solu-Medrol and duo nebs for her COPD exacerbation. She had improvement in her dyspnea with this treatment. Her blood pressure also improved as we decreased her home antihypertensives. An a.m. cortisol was checked but this was obtained while she had already received Solu-Medrol and was noted to be quite low at 2.3. She was started on fludrocortisone in addition to the prednisone as it was thought she may have adrenal insufficiency. The patient's blood pressure and dyspnea remained stable. She was transitioned to oral prednisone. She was ultimately discharged on a prednisone taper but not fludrocortisone as it was felt to likely did not have adrenal insufficiency and if she did it may be from her chronic prednisone use over the past few months due to her multiple COPD exacerbations. Because of this, she was discharged on a prednisone taper and asked to follow-up with her primary care physician to have a recheck of an a.m. cortisol when she is off of steroids. She was agreeable to Metformin for her diabetes but absolutely declined the use of insulin. Her blood sugars were difficult to control during his hospitalization due to the steroids but she did receive Lantus while she was here. She was discharged on Metformin and this will be titrated by her primary care physician. She may ultimately need a second oral hypoglycemic agent. The patient did have a fall during his hospitalization after she tripped over her oxygen tubing after he got tangled of the bed. CT of the head showed no acute abnormalities. - ALLERGIES Allergies/Adverse Reactions: Allergies Allergy/AdvReac Type Severity Reaction Status Date / Time codeine [Codeine] Allergy Severe Swelling/Hi Verified 03/15/21 09:43 ves erythromycin base Allergy Severe Anaphylaxis Verified 03/15/21 09:43 [Erythromycin Base] gabapentin Allergy Severe Anaphylaxis Verified 03/15/21 09:43 Latex, Natural Rubber Allergy Severe Blisters Verified 03/15/21 09:43 pamabrom [From Midol] Allergy Severe Respiratory Verified 03/15/21 09:43 pyrilamine maleate * Allergy Severe Respiratory Verified 03/15/21 09:43 [From Midol] shellfish derived Allergy Severe Anaphylaxis Verified 03/15/21 09:43 venom-honey bee Allergy Severe Anaphylaxis Verified 03/15/21 09:43 [bee venom (honey bee)] chlorhexidine Allergy Intermediate Rash Verified 03/15/21 09:43 morphine Allergy Respiratory Verified 03/15/21 09:43 ondansetron Allergy Respiratory Verified 03/15/21 09:43 piperacillin [From Zosyn] AdvReac Rash Verified 03/15/21 09:43 tazobactam [From Zosyn] AdvReac Rash Verified 03/15/21 09:43 - MEDICATIONS Home Medications: Ambulatory Orders Medication Instructions Recorded Confirmed Furosemide 40 mg PO BID 09/07/20 03/16/21 Apixaban [Eliquis] 5 mg PO BID 10/24/20 03/16/21 Albuterol 2.5 mg INH Q4H PRN #14 units 10/29/20 03/16/21 Albuterol Sulfate [Proair Hfa 2 puffs INH Q4H PRN #1 inh 10/29/20 03/16/21 Inhaler] Budesonide [Pulmicort] 0.5 mg INH BID #14 units 10/29/20 03/16/21 Formoterol Fumarate [Perforomist] 20 mcg IH BID #10 ml 10/29/20 03/16/21 Amiodarone [Pacerone] 100 mg PO DAILY 02/04/21 03/16/21 lisinopriL [Zestril] 2.5 mg PO DAILY #30 tablet 02/11/21 03/16/21 Metformin HCl [Glumetza] 500 mg PO DAILY 03/16/21 03/16/21 Montelukast [Singulair] 10 mg PO DAILY 03/16/21 03/16/21 Nitroglycerin [Nitrostat] 0.4 mg PO Q5MIN PRN 03/16/21 03/16/21 Metoprolol Succinate [Toprol Xl] 25 mg PO DAILY #30 tablet 03/20/21 predniSONE [Deltasone] 1 tablet PO 0800 #40 tablet 03/20/21 - PHYSICAL EXAM AT DISCHARGE General Appearance: positive: No acute distress, Alert Eyes Bilateral: positive: Normal inspection, Conjunctivae nml ENT: positive: ENT inspection nml, Other (Nasal cannula in place.) Neck: positive: Nml inspection Respiratory: positive: No respiratory distress, Wheezes. negative: Rales, Rhonchi Cardiovascular: positive: Regular rate & rhythm, No murmur. negative: Tachycardia Abdomen: positive: Non-tender, No distention. negative: Tenderness Skin: positive: Warm, Dry Extremities: positive: Pedal edema (Trace edema in bilateral lower extremities.) Neurologic/Psychiatric: negative: Disoriented to person, Disoriented to place Physical Exam Other/Comments: Vital Signs - 24 hr 03/19/21 03/19/21 03/19/21 20:25 21:00 23:59 Temperature 36.5 C 36.4 C L Heart Rate 59 L Heart Rate [ 60 59 L Brachial] Respiratory 20 18 16 Rate Blood Pressure 131/65 H [Left Brachial artery] Blood Pressure 138/72 H [Right Brachial artery] O2 Saturation 96 97 03/20/21 03/20/21 03/20/21 04:40 07:15 08:00 Temperature 36.5 C 36.7 C Heart Rate 60 Heart Rate [ 60 64 Brachial] Respiratory 18 22 20 Rate Blood Pressure 127/58 L [Left Brachial artery] Blood Pressure 142/65 H [Right Brachial artery] O2 Saturation 100 100 03/20/21 03/20/21 10:40 12:52 Temperature 36.8 C Heart Rate 65 Heart Rate [ 69 Brachial] Respiratory 22 16 Rate Blood Pressure 101/52 L [Left Brachial artery] Blood Pressure [Right Brachial artery] O2 Saturation 96 Oxygen O2 Source [With Activity] Room air O2 Source Room air - LABS Result Diagrams: 03/20/21 07:18 03/20/21 07:18 - DIAGNOSTIC IMAGING Diagnostic Imaging Results: Final report reviewed - FOLLOW UP Follow Up: She was asked to follow-up with her primary care physician in 1 week. She will need a repeat a.m. cortisol and possibly an ACTH stim test when she is off of steroids to see if she truly does have adrenal insufficiency. - TIME SPENT Time Spent in Discharge (Minutes): 34
[2021-03-20] MEDS: traMADol 50 MG TABLET PO PRN (11:51)
[2021-03-20 12:54] VITALS: BP 101/52
== END 2021-03-20 13:20 | disposition home or self-care (01) | DRG 191 ==
LOC: ED 09:33 → MS2 16:37
PROVIDERS: ADMIT Internal Medicine; ATTEND Internal Medicine
DX: J43.9 Emphysema, unspecified (principal); I50.22 Chronic systolic (congestive) heart failure; I48.20 Chronic atrial fibrillation, unspecified; I42.9 Cardiomyopathy, unspecified; E27.40 Unspecified adrenocortical insufficiency; Z20.822 Contact with and (suspected) exposure to COVID-19; I25.10 Atherosclerotic heart disease of native coronary artery without angina pectoris; I48.91 Unspecified atrial fibrillation; Z68.42 Body mass index [BMI] 45.0-49.9, adult; I50.9 Heart failure, unspecified; Z79.899 Other long term (current) drug therapy; I95.9 Hypotension, unspecified; I11.0 Hypertensive heart disease with heart failure; Z79.01 Long term (current) use of anticoagulants; Z87.891 Personal history of nicotine dependence; E09.9 Drug or chemical induced diabetes mellitus without complications; T38.0X5A Adverse effect of glucocorticoids and synthetic analogues, initial encounter; Z86.74 Personal history of sudden cardiac arrest; Z95.810 Presence of automatic (implantable) cardiac defibrillator; E66.01 Morbid (severe) obesity due to excess calories; Z86.16 Personal history of COVID-19; E86.0 Dehydration; R79.89 Other specified abnormal findings of blood chemistry; W01.0XXA Fall on same level from slipping, tripping and stumbling without subsequent striking against object, initial encounter; Y92.239 Unspecified place in hospital as the place of occurrence of the external cause
CPT/HCPCS: 36415; 70450; 71045; 80048; 80053; 82533; 83036; 83605; 83690; 83735; 83880; 84484; 85025; 87631; 93005; 94640; 94664; 96361; 96374; 99283; 99285; A9270; J1815; J7512; J7626; 0202U

== ENCOUNTER 2021-03-23 07:00 | Outpatient (CLI) | payer MEDICARE, MEDICAID ==
[2021-03-23 17:49] LABS: BASOPHILS # (AUTO) 0.1 10^3/uL (0.0-0.1); BASOPHILS % (AUTO) 0.5 %; EOSINOPHILS % (AUTO) 0.1 %; HCT - HEMATOCRIT 45.6 % (37.0-47.0); HGB - HEMOGLOBIN 14.9 g/dL (12.0-16.0); LYMPHOCYTES # (AUTO) 1.2 10^3/uL (1.5-3.5); LYMPHOCYTES % (AUTO) 6.2 %; MEAN CORPUSCULAR HEMOGLOBIN 32.1 pg (27.0-31.0); MEAN CORPUSCULAR HGB CONC 32.7 g/dL (32.0-36.0); MEAN CORPUSCULAR VOLUME 98.3 fL (81.0-99.0); MEAN PLATELET VOLUME 11.1 fL (7.9-10.8); MONOCYTES # (AUTO) 0.5 10^3/uL (0.0-1.0); MONOCYTES % (AUTO) 2.8 %; NEUTROPHILS # (AUTO) 16.3 10^3/uL (1.5-6.6); NEUTROPHILS % (AUTO) 88.6 %; PLT - PLATELET COUNT 244 10^3/uL (130-450); RED BLOOD COUNT 4.64 10^6/uL (4.20-5.40); RED CELL DISTRIBUTION WIDTH 12.8 % (12.0-15.0); WHITE BLOOD COUNT 18.4 x10^3/uL (4.8-10.8)
[2021-03-23 17:50] LABS: BILIRUBIN,URINE NEGATIVE (NEGATIVE); GLUCOSE, URINE (UA) >=1000 mg/dL (NEGATIVE); KETONES,URINE (UA) NEGATIVE (NEGATIVE); LEUKOCYTE ESTERASE, URINE NEGATIVE (NEGATIVE); NITRITE,URINE NEGATIVE (NEGATIVE); OCCULT BLOOD,URINE NEGATIVE (NEGATIVE); PROTEIN,URINE NEGATIVE (NEGATIVE); UROBILINOGEN,URINE 0.2 (NORMAL) E.U./dL (NORMAL)
[2021-03-23 17:51] LABS: CLARITY,URINE CLEAR (CLEAR)
[2021-03-23 17:58] LABS: ALBUMIN 3.5 g/dL (3.2-5.5); ALBUMIN/GLOBULIN RATIO 1.3 (1.0-2.2); BILIRUBIN,TOTAL 0.5 mg/dL (0.2-1.0); CALCIUM 9.4 mg/dL (8.5-10.3); CREATININE 1.3 mg/dL (0.4-1.0); POTASSIUM 3.6 mmol/L (3.5-5.0); TOTAL PROTEIN 6.2 g/dL (6.7-8.2)
[2021-03-23 18:14] LABS: BACTERIA,URINE None Seen /HPF (None Seen); CRYSTALS,URINE 11-25 Ca Oxalate /LPF; RBC,URINE None Seen /HPF (0-5); SQUAMOUS EPITHELIAL CELL,UR FEW Squamous (<= Few); WBC,URINE 0-3 /HPF (0-5)
== END 2021-03-23 23:59 | disposition home or self-care (01) ==
LOC: LAB.WCP 07:00
PROVIDERS: ATTEND Nurse Practitioner
DX: I42.9 Cardiomyopathy, unspecified (principal); E11.9 Type 2 diabetes mellitus without complications; N28.9 Disorder of kidney and ureter, unspecified; I10 Essential (primary) hypertension; R30.0 Dysuria
CPT/HCPCS: 36415; 80053; 81001; 85025; 87086

== ENCOUNTER 2021-05-20 07:00 | Outpatient (CLI) | payer MEDICARE, MEDICAID ==
[2021-05-20 11:57] LABS: BASOPHILS % (AUTO) 0.5 %; EOSINOPHILS # (AUTO) 0.2 10^3/uL (0.0-0.7); HCT - HEMATOCRIT 44.3 % (37.0-47.0); HGB - HEMOGLOBIN 14.3 g/dL (12.0-16.0); LYMPHOCYTES # (AUTO) 1.8 10^3/uL (1.5-3.5); LYMPHOCYTES % (AUTO) 30.5 %; MEAN CORPUSCULAR HEMOGLOBIN 32.3 pg (27.0-31.0); MEAN CORPUSCULAR HGB CONC 32.3 g/dL (32.0-36.0); MEAN PLATELET VOLUME 10.5 fL (7.9-10.8); MONOCYTES # (AUTO) 0.6 10^3/uL (0.0-1.0); MONOCYTES % (AUTO) 10.3 %; NEUTROPHILS # (AUTO) 3.3 10^3/uL (1.5-6.6); NEUTROPHILS % (AUTO) 55.5 %; PLT - PLATELET COUNT 228 10^3/uL (130-450); RED BLOOD COUNT 4.43 10^6/uL (4.20-5.40); RED CELL DISTRIBUTION WIDTH 13.5 % (12.0-15.0)
[2021-05-20 12:24] LABS: ALBUMIN 3.5 g/dL (3.2-5.5); ALBUMIN/GLOBULIN RATIO 1.1 (1.0-2.2); BILIRUBIN,TOTAL 0.4 mg/dL (0.2-1.0); CREATININE 0.9 mg/dL (0.4-1.0); POTASSIUM 3.9 mmol/L (3.5-5.0); TOTAL PROTEIN 6.6 g/dL (6.7-8.2)
== END 2021-05-20 23:59 | disposition home or self-care (01) ==
LOC: LAB.WCP 07:00
PROVIDERS: ATTEND Nurse Practitioner
DX: I10 Essential (primary) hypertension (principal); E11.9 Type 2 diabetes mellitus without complications; E27.40 Unspecified adrenocortical insufficiency
CPT/HCPCS: 36415; 80053; 82533; 85025

== ENCOUNTER 2021-05-26 16:52 | Outpatient (CLI) | payer MEDICARE, MEDICAID | END 2021-05-26 16:53 | disposition EMS.NT | LOC: EMS 16:52 | DX: R53.1 Weakness (principal) ==

== ENCOUNTER 2021-07-06 12:50 | Outpatient (CLI) | payer MEDICARE, MEDICAID | END 2021-07-06 12:51 | disposition short-term general hospital (02) | LOC: EMS 12:50 | DX: M25.551 Pain in right hip (principal); M25.571 Pain in right ankle and joints of right foot; M25.561 Pain in right knee; M25.522 Pain in left elbow; W01.0XXA Fall on same level from slipping, tripping and stumbling without subsequent striking against object, initial encounter; Y92.000 Kitchen of unspecified non-institutional (private) residence as the place of occurrence of the external cause; Z79.01 Long term (current) use of anticoagulants | CPT/HCPCS: A0425; A0427 ==

== ENCOUNTER 2021-12-10 12:42 | Inpatient (IN) | payer MEDICARE, MEDICAID ==
[2021-12-10 13:41] LABS: BASOPHILS # (AUTO) 0.1 10^3/uL (0.0-0.1); BASOPHILS % (AUTO) 0.4 %; EOSINOPHILS # (AUTO) 0.3 10^3/uL (0.0-0.7); EOSINOPHILS % (AUTO) 2.2 %; HCT - HEMATOCRIT 46.4 % (37.0-47.0); HGB - HEMOGLOBIN 15.7 g/dL (12.0-16.0); LYMPHOCYTES # (AUTO) 2.4 10^3/uL (1.5-3.5); LYMPHOCYTES % (AUTO) 20.8 %; MEAN CORPUSCULAR HEMOGLOBIN 32.2 pg (27.0-31.0); MEAN CORPUSCULAR HGB CONC 33.8 g/dL (32.0-36.0); MEAN CORPUSCULAR VOLUME 95.1 fL (81.0-99.0); MEAN PLATELET VOLUME 9.9 fL (7.9-10.8); MONOCYTES # (AUTO) 1.1 10^3/uL (0.0-1.0); NEUTROPHILS # (AUTO) 7.8 10^3/uL (1.5-6.6); NEUTROPHILS % (AUTO) 67.2 %; PLT - PLATELET COUNT 234 10^3/uL (130-450); RED BLOOD COUNT 4.88 10^6/uL (4.20-5.40); RED CELL DISTRIBUTION WIDTH 12.7 % (12.0-15.0); WHITE BLOOD COUNT 11.6 x10^3/uL (4.8-10.8)
[2021-12-10 13:51] LABS: ALBUMIN 3.9 g/dL (3.2-5.5); ALBUMIN/GLOBULIN RATIO 1.2 (1.0-2.2); BILIRUBIN,TOTAL 0.6 mg/dL (0.2-1.0); CALCIUM 9.6 mg/dL (8.5-10.3); CREATININE 2.5 mg/dL (0.4-1.0); POTASSIUM 3.7 mmol/L (3.5-5.0); TOTAL PROTEIN 7.1 g/dL (6.7-8.2)
[2021-12-10] MEDS ORDERED: SODIUM CHLORIDE 0.9% 1,000 ML IV STA ×2 (14:55→16:16)
--- NOTE | 2021-12-10 15:10 | ED Physician Documentation ---
History of Present Illness - Stated complaint Stated Complaint: DIZZY/LOW BP - Chief complaint Chief Complaint: General - Additonal information Additional information: 56-year-old female was referred to the emergency department from her primary care office for evaluation of hypotension. She had been at her PCP [facility] this morning to discuss tingling and pain over the last few weeks in her right forearm. While there they noted that she was hypotensive. Patient describes a blood pressure in the 70s over 40s. At baseline she has a history of hypertension, congestive heart failure as well as COPD. She does have an AICD/pacer in place. She is anticoagulated on Eliquis. She reports that she has been feeling generally unwell and weak for the last few weeks. No changes in her routine medications. No fevers or vomiting. She is denying chest pain. On arrival to the emergency department she is alert and oriented. She has a paced ECG rhythm at the bedside. Room air saturations are 97%. She is modestly hypotensive in the 80s over 50s Meds: Spironolactone, lisinopril, budesonide, albuterol, furosemide, metoprolol, Eliquis. Review of Systems Constitutional: denies: Fever, Chills Eyes: reports: Reviewed and negative Nose: reports: Reviewed and negative Throat: reports: Reviewed and negative Cardiac: denies: Chest pain / pressure, Palpitations Respiratory: reports: Dyspnea (baseline) GI: reports: Reviewed and negative : reports: Reviewed and negative Skin: reports: Reviewed and negative Musculoskeletal: reports: Extremity pain Neurologic: reports: Generalized weakness. denies: Syncope, Seizure, Headache PD PAST MEDICAL HISTORY - Past Medical History Cardiovascular: Congestive heart failure, Hypertension, High cholesterol, Coronary artery disease, HI, Atrial fibrillation, Murmur, Arrhythmia Respiratory: Asthma, COPD, Emphysema, Pneumonia, Shortness of breath, Other Neuro: Headaches, Tremors Endocrine/Autoimmune: None GI: GERD [employer]: Ectopic , Other : None, Frequency HEENT: Chronic vision loss, Chronic sinusitis, Chronic hearing loss Psych: Depression, Anxiety, Claustrophobia Musculoskeletal: Osteoarthritis, Fatigue, Chronic back pain Derm: None - Past Surgical History Past Surgical History: Yes General: Cholecystectomy, EGD Ortho: Knee replacement /[employer]: Hysterectomy, LEEP (Cervical surgery) Cardiovascular: Cardiac catheterization HEENT: Rhinoplasty - Present Medications Home Medications: Ambulatory Orders Medication Instructions Recorded Confirmed Furosemide 40 mg PO BID 09/07/20 03/16/21 Apixaban [Eliquis] 5 mg PO BID 10/24/20 03/16/21 Albuterol 2.5 mg INH Q4H PRN #14 units 10/29/20 03/16/21 Albuterol Sulfate [Proair Hfa 2 puffs INH Q4H PRN #1 inh 10/29/20 03/16/21 Inhaler] Budesonide [Pulmicort] 0.5 mg INH BID #14 units 10/29/20 03/16/21 Formoterol Fumarate [Perforomist] 20 mcg IH BID #10 ml 10/29/20 03/16/21 Amiodarone [Pacerone] 100 mg PO DAILY 02/04/21 03/16/21 lisinopriL [Zestril] 2.5 mg PO DAILY #30 tablet 02/11/21 03/16/21 Metformin HCl [Glumetza] 500 mg PO DAILY 03/16/21 03/16/21 Montelukast [Singulair] 10 mg PO DAILY 03/16/21 03/16/21 Nitroglycerin [Nitrostat] 0.4 mg PO Q5MIN PRN 03/16/21 03/16/21 Metoprolol Succinate [Toprol Xl] 25 mg PO DAILY #30 tablet 03/20/21 predniSONE [Deltasone] 1 tablet PO 0800 #40 tablet 03/20/21 Azithromycin [Zithromax] 0 mg PO DAILY #6 tablet 10/21/21 Guaifenesin/Pseudoephedrne HCl 1 each PO BID #14 10/21/21 [Mucinex D ER 1,200-120 mg Tab] predniSONE [Deltasone] 40 mg PO DAILY 5 Days #10 tablet 10/21/21 - Allergies Allergies/Adverse Reactions: Allergies Allergy/AdvReac Type Severity Reaction Status Date / Time codeine [Codeine] Allergy Severe Swelling/Hi Verified 12/10/21 12:54 ves erythromycin base Allergy Severe Anaphylaxis Verified 12/10/21 12:54 [Erythromycin Base] gabapentin Allergy Severe Anaphylaxis Verified 12/10/21 12:54 Latex, Natural Rubber Allergy Severe Blisters Verified 12/10/21 12:54 pamabrom [From Midol] Allergy Severe Respiratory Verified 12/10/21 12:54 pyrilamine maleate * Allergy Severe Respiratory Verified 12/10/21 12:54 [From Midol] shellfish derived Allergy Severe Anaphylaxis Verified 12/10/21 12:54 venom-honey bee Allergy Severe Anaphylaxis Verified 12/10/21 12:54 [bee venom (honey bee)] chlorhexidine Allergy Intermediate Rash Verified 12/10/21 12:54 morphine Allergy Respiratory Verified 12/10/21 12:54 ondansetron Allergy Respiratory Verified 10/21/21 16:09 piperacillin [From Zosyn] AdvReac Rash Verified 10/21/21 16:09 tazobactam [From Zosyn] AdvReac Rash Verified 10/21/21 16:09 - Social History Does the pt smoke?: No Smoking Status: Former smoker Does the pt drink ETOH?: No Does the pt have substance abuse?: No - Immunizations Immunizations are current?: No Immunizations: Other immun not current - POLST Patient has POLST: No POLST Status: Full Code PD ED PE EXPANDED - General General: Alert, Other (Appearsolder than stated age) - Cardiac Cardiac: Regular Rate, Radial strong equal, Pedal strong equal, Cap refill < 2 sec, Other (paced) - Respiratory Respiratory: Clear to ausultation nura. No: Distress, Labored - Abdomen Abdomen: Normal Bowel sounds. No: Tender to palpation - Back Back: Normal exam. No: Vertebral tenderness - Neuro Neuro: Alert and Oriented X 3, CNII-XII intact - GCS Eye Opening: Spontaneous Motor: Obeys Commands Verbal: Oriented Total: 15 Results - Vitals Vitals: Vital Signs - 24 hr 12/10/21 12/10/21 12:49 15:18 Temperature 36.3 C L Heart Rate 60 63 Respiratory 18 11 L Rate Blood Pressure 94/39 L 82/53 L O2 Saturation 98 99 Oxygen O2 Source [With Activity] Room air O2 Source Room air - Labs Labs: Laboratory Tests 12/10/21 12/10/21 12/10/21 13:30 13:30 13:30 WBC 11.6 H RBC 4.88 Hgb 15.7 Hct 46.4 MCV 95.1 MCH 32.2 H MCHC 33.8 RDW 12.7 Plt Count 234 MPV 9.9 Neut # (Auto) 7.8 H Lymph # (Auto) 2.4 Cascade # (Auto) 1.1 H Eos # (Auto) 0.3 Baso # (Auto) 0.1 Absolute Nucleated RBC 0.00 Nucleated RBC % 0.0 Sodium 136 Potassium 3.7 Chloride 95 L Carbon Dioxide 29 Anion Gap 12.0 BUN 50 H Creatinine 2.5 H Estimated GFR (MDRD) 20 L Glucose 117 H Calcium 9.6 Magnesium 2.0 Total Bilirubin 0.6 AST 18 ALT 18 Alkaline Phosphatase 92 B-Natriuretic Peptide 32 Total Protein 7.1 Albumin 3.9 Globulin 3.2 Albumin/Globulin Ratio 1.2 Lipase 74 H SARS-CoV-2 (PCR) 12/10/21 12/10/21 15:15 15:23 WBC RBC Hgb Hct MCV MCH MCHC RDW Plt Count MPV Neut # (Auto) Lymph # (Auto) Cascade # (Auto) Eos # (Auto) Baso # (Auto) Absolute Nucleated RBC Nucleated RBC % Sodium Potassium Chloride Carbon Dioxide Anion Gap BUN Creatinine Estimated GFR (MDRD) Glucose Calcium Magnesium Total Bilirubin AST ALT Alkaline Phosphatase B-Natriuretic Peptide 37 Total Protein Albumin Globulin Albumin/Globulin Ratio Lipase SARS-CoV-2 (PCR) NOT DETECTED PD MEDICAL DECISION MAKING - ED course Complexity details: reviewed results, re-evaluated patient, d/w patient, d/w family ED course: 56-year-old female comes to the emergency department for evaluation of hypotension noted at her primary care office. She was there to follow-up on bilateral arm pain and neck pain that she is been having for quite some time. She does have a history of COPD, congestive heart failure, atrial fib anticoagulant Eliquis. She is on multiple antihypertensives. In the primary office her blood pressures in the 70s over 40s. They have typically been in the 80s over 50s here. Despite these pressures she is alert oriented and well- appearing. Screening labs show some likely modest dehydration and acute kidney injury. She was initially given a liter of crystalloid here in the emergency department with transient response in her blood pressure thus it was repeated again. There is some concerning history in the past for possible cortisone/cortisol insufficiency. Thus cortisol level was obtained randomly but she was given 100 mg of hydrocortisone here in the ER. Given the hypotension however we did consult our hospitalist Dr. Cedillo for admission and he graciously agrees to admit the patient. A CT of the cervical spine is pending for evaluation of possible cervical radiculopathy leading to the bilateral arm pain and numbness Departure - Departure Disposition: 66 [facility] DC/Xfer Clinical Impression: Bilateral arm pain Hypotension Qualifiers: Hypotension type: unspecified hypotension type Qualified Code(s): I95.9 - Hypotension, unspecified
--- NOTE | 2021-12-10 15:31 | XRAY Report ---
PROCEDURE: Chest 1 View X-Ray INDICATIONS: chest pain TECHNIQUE: One view of the chest was acquired. COMPARISON: Chest radiographs 10/21/2021, 03/15/2021. CT pulmonary angiogram 09/13/2017. FINDINGS: Surgical changes and devices: Left chest AICD. Lungs and pleura: No suspicious focal airspace opacity. Redemonstrated calcified granuloma right mid- upper lung. No pleural effusion or pneumothorax. Mediastinum: Cardiac silhouette is at the upper limits of normal in size. Mediastinal and hilar cont ours are similar to before. Bones and chest wall: No suspicious bony lesions. Overlying soft tissues appear unremarkable. IMPRESSION: No acute cardiopulmonary abnormality. Reviewed by: Amari Burgos MD on 12/10/2021 3:29 PM PDT Approved by: Amari Burgos MD on 12/10/2021 3:29 PM PDT Station ID: [id number]
[2021-12-10] MEDS ORDERED: HYDROCORTISONE SUCCINATE 100 MG/2 ML VIAL IVP STA (16:17)
[2021-12-10] MEDS ORDERED: HYDROmorphone 1 MG/ML CARPUJECT IVP STA (16:42)
[2021-12-10] MEDS ORDERED: SODIUM CHLORIDE FLUSH 0.9% 10 ML SYRINGE IVP PRN (16:48)
[2021-12-10] MEDS ORDERED: ACETAMINOPHEN 325 MG TABLET PO PRN (16:55)
[2021-12-10] MEDS ORDERED: ONDANSETRON 4 MG/2 ML VIAL IVP PRN (16:55)
--- NOTE | 2021-12-10 17:02 | HISTORY & PHYSICAL EXAMINATION ---
Chief Complaint - Chief Complaint Chief Complaint: hypotension History of Present Illness - Admitted From [facility] - History Obtained From Records Reviewed: yes History obtained from: patient - History of Present Illness HPI Comment/Other: Patient is a 56-year-old female with medical history significant for COPD, heart failure with reduced ejection fraction, obstructive sleep apnea, atrial fibrillation, history of cardiac arrest with ICD in place who presented to the ED today at the request of her primary care provider because she was noted to have very low blood pressure at her appointment today. Her blood pressure was as low as 70/40. She had gone to see her primary care physician because of bilateral upper extre mity numbness from her elbow down to her fingers and pain around her neck. In the ED she was found to have a systolic blood pressure of about 85. Despite 1 L bolus of fluid she stayed in the 80s. She is on several antihypertensives and diuretics which include Lisinopril, furosemide and metoprolol. She has been experiencing increased urination and diarrhea lately as well. Work-up in the ED showed a creatinine of 2.5, BUN 50 and estimated GFR 20. As a result of the above she was presented for admission for further treatment. She has chronic dyspnea due to COPD and CHF. She reports abdominal pain lately associated with the diarrhea. She reported some nausea but no vomiting. She does not have fever or chills. Picking her upper extremities full ranges of motion at the shoulder produces significant pain in her shoulders and neck. History - Past Medical History Cardiovascular: reports: Congestive heart failure, Hypertension, High cholesterol, Coronary artery disease, SC, Atrial fibrillation, Murmur, Arrhythmia Respiratory: reports: Asthma, COPD, Emphysema, Pneumonia, Shortness of breath, Other Neuro: reports: Headaches, Tremors Endocrine/Autoimmune: reports: None GI: reports: GERD WEB CONTENT EXECUTIVE: reports: Ectopic , Other : reports: None, Frequency HEENT: reports: Chronic vision loss, Chronic sinusitis, Chronic hearing loss Psych: reports: Depression, Anxiety, Claustrophobia Musculoskeletal: reports: Osteoarthritis, Fatigue, Chronic back pain Derm: reports: None MRSA Hx?: No - Past Surgical History General: reports: Cholecystectomy, EGD Ortho: reports: Knee replacement /WEB CONTENT EXECUTIVE: reports: Hysterectomy, LEEP (Cervical surgery) Cardiovascular: reports: Cardiac catheterization HEENT: reports: Rhinoplasty - Family & Social History Family History: Mother: Alive and Well, Alzheimer's Disease, Hyperlipidemia, Hypertension, Father: , Cancer, Other family: CVA/TIA, Diabetes, Type 1, SC Family History Comment/Other: To her knowledge, her father from an unknown cancer. She denies a family history of heart disease or diabetes but review of prior records reveal that both her parents had coronary artery disease and diabetes. Living Situation: With family Social History Notes: She lives with her grand-daughter's boyfriend who she is trying to evict. 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 She reports that she quit smoking about a year ago. She started at the age of 7 and smoked up to 1.5 packs a day. She reported she had alcoholism but she quit alcohol use. - Substance History Use: Uses substance without health or social issues: NONE - POLST Patient has POLST: No POLST Status: Full Code Meds/Allgy - Home Medications Home Medications: Ambulatory Orders Medication Instructions Recorded Confirmed Furosemide 40 mg PO BID 09/07/20 03/16/21 Apixaban [Eliquis] 5 mg PO BID 10/24/20 03/16/21 Albuterol 2.5 mg INH Q4H PRN #14 units 10/29/20 03/16/21 Albuterol Sulfate [Proair Hfa 2 puffs INH Q4H PRN #1 inh 10/29/20 03/16/21 Inhaler] Budesonide [Pulmicort] 0.5 mg INH BID #14 units 10/29/20 03/16/21 Formoterol Fumarate [Perforomist] 20 mcg IH BID #10 ml 10/29/20 03/16/21 Amiodarone [Pacerone] 100 mg PO DAILY 02/04/21 03/16/21 lisinopriL [Zestril] 2.5 mg PO DAILY #30 tablet 02/11/21 03/16/21 Metformin HCl [Glumetza] 500 mg PO DAILY 03/16/21 03/16/21 Montelukast [Singulair] 10 mg PO DAILY 03/16/21 03/16/21 Nitroglycerin [Nitrostat] 0.4 mg PO Q5MIN PRN 11/02/21 11/02/21 Metoprolol Succinate [Toprol Xl] 25 mg PO DAILY #30 tablet 03/20/21 predniSONE [Deltasone] 1 tablet PO 0800 #40 tablet 03/20/21 Azithromycin [Zithromax] 0 mg PO DAILY #6 tablet 10/21/21 Guaifenesin/Pseudoephedrne HCl 1 each PO BID #14 10/21/21 [Mucinex D ER 1,200-120 mg Tab] predniSONE [Deltasone] 40 mg PO DAILY 5 Days #10 tablet 10/21/21 - Allergies Allergies/Adverse Reactions: Allergies Allergy/AdvReac Type Severity Reaction Status Date / Time codeine [Codeine] Allergy Severe Swelling/Hi Verified 12/10/21 12:54 ves erythromycin base Allergy Severe Anaphylaxis Verified 12/10/21 12:54 [Erythromycin Base] gabapentin Allergy Severe Anaphylaxis Verified 12/10/21 12:54 Latex, Natural Rubber Allergy Severe Blisters Verified 12/10/21 12:54 pamabrom [From Midol] Allergy Severe Respiratory Verified 12/10/21 12:54 pyrilamine maleate * Allergy Severe Respiratory Verified 12/10/21 12:54 [From Midol] shellfish derived Allergy Severe Anaphylaxis Verified 12/10/21 12:54 venom-honey bee Allergy Severe Anaphylaxis Verified 12/10/21 12:54 [bee venom (honey bee)] chlorhexidine Allergy Intermediate Rash Verified 12/10/21 12:54 morphine Allergy Respiratory Verified 12/10/21 12:54 ondansetron Allergy Respiratory Verified 10/21/21 16:09 piperacillin [From Zosyn] AdvReac Rash Verified 10/21/21 16:09 tazobactam [From Zosyn] AdvReac Rash Verified 10/21/21 16:09 Review of Systems - Other Findings Other Findings: A 12 point review of system was done and found to be negative except was mentioned in the HPI Prior Level of Functionality: She is normally independent of activities of daily living Exam - Vital Signs Vital Signs: Vital Signs x48h Temp Pulse Resp BP Pulse Ox 12/10/21 15:18 63 11 L 82/53 L 99 12/10/21 12:49 36.3 C L 60 18 94/39 L 98 - Physical Exam General Appearance: positive: Alert, Moderate distress Eyes Bilateral: positive: PERRL, EOMI ENT: positive: Dry mucous membranes Neck: positive: No JVD, Trachea midline Respiratory: positive: Chest non-tender, No respiratory distress, Wheezes Cardiovascular: positive: Other (regular rate, irregular rhythm) Abdomen: positive: Non-tender, Nml bowel sounds, No distention. negative: Guarding, Rebound Back: positive: Nml inspection Skin: positive: Color nml, No rash, Warm, Dry Extremities: positive: No pedal edema, Other (Pain with range of motion at shoulders) Neurologic/Psychiatric: positive: Oriented x3, Mood/affect nml Conclusion/Plan - Problem List (1) Hypotension Conclusion/Plan: Systolic blood pressure was 82 in the ED. Suspect etiology is multifactorial from volume depletion and medication use. We will hold patient's lisinopril, Lasix and metoprolol. Will administer IV hydration with normal saline at 100 mL/h. Patient was given a liter bolus of normal saline in the ED. Patient was also given a dose of Solu-Cortef 100 mg IV x1. Will continue Cortef 10 mg p.o. daily. Qualifiers: Hypotension type: unspecified hypotension type Qualified Code(s): I95.9 - Hypotension, unspecified (2) Acute on chronic kidney failure Conclusion/Plan: Prerenal Due to diarrhea. Also likely secondary to medication. We will hold patient's Lasix, lisinopril and metoprolol. IV hydration with normal saline (3) Cervical radiculopathy Conclusion/Plan: This is likely the cause of the patient's numbness and her upper extremities bilaterally. Patient had significant pain in the neck and shoulder region when range of m otion was attempted. Pain management as needed with Tylenol, oxycodone and Dilaudid. Cervical CT ordered. Patient may subsequently need cervical MRI (4) Chronic atrial fibrillation Conclusion/Plan: Currently rate controlled. We will continue patient's Eliquis at a reduced dose of 2.5 mg p.o. twice daily while renal function is poor with an estimated GFR of 20. Will resume metoprolol when patient's blood pressure is improved. Will continue amiodarone (5) Chronic pain Conclusion/Plan: Pain management as needed with Tylenol, oxycodone and Dilaudid as needed (6) Diabetes mellitus type 2 in obese Conclusion/Plan: Accu-Cheks q. ACH S. Sliding scale insulin. Metformin held due to acute kidney injury. (7) Systolic heart failure Conclusion/Plan: Currently not in exacerbation. We will hold metoprolol, lisinopril and Lasix while hydrating patient for hypotension. Will resume medications once blood pressure improves (8) Tobacco dependence in remission Conclusion/Plan: Nicotine patch ordered. - Lab Results Fish Bones: 12/10/21 13:30 12/10/21 13:30 Core Measures - Anticipated LOS I expect patient to be DC'd or transferred within 96 hours.: Yes - DVT/VTE - Prophylaxis VTE/DVT Device ordered at admit?: Yes
[2021-12-10] MEDS ORDERED: HYDROmorphone 0.5 MG/0.5 ML SYRINGE IVP PRN (17:04)
--- NOTE | 2021-12-10 17:19 | CT Report ---
PROCEDURE: CERVICAL SPINE WO INDICATIONS: Bilateral arm and shoulder pain TECHNIQUE: Noncontrast 3 mm thick sections acquired from the skull base to the T4 level. Sagittal and coronal r eformats were then constructed. For radiation dose reduction, the following was used: automated exp osure control, adjustment of mA and/or kV according to patient size. COMPARISON: None. FINDINGS: Image quality: Excellent. Bones: No acute fractures or dislocations. Straightening of normal cervical lordosis. Moderate-sever e multilevel cervical spondylosis with degenerative endplate changes, disc space loss, and endplate o steophyte formation. Findings are most severe from C6-7 through C7-T1. Advanced bilateral facet arthr opathy throughout the imaged cervical spine. Cranial cervical junction is intact. Moderate bilateral neuroforaminal stenosis at C3-4 through C5-6, as well as C6-7. No significant spinal canal stenosis. Visualized superior ribs are intact. Soft tissues: Prevertebral soft tissues are normal in thickness. No paravertebral hematomas. No ap ical pneumothoraces. IMPRESSION: Cervical spine without acute fracture or traumatic malalignment. Straightening of cervical lordosis likely related to positioning and/or concurrent muscle spasms Moderate-severe multilevel cervical spondylosis with moderate bilateral neural foraminal stenosis fro m C3-4 through C6-7. No significant spinal canal stenosis. Reviewed by: Jorge Luis Snow MD on 12/10/2021 5:17 PM PDT Approved by: Jorge Luis Snow MD on 12/10/2021 5:17 PM PDT Station ID: [id number]
[2021-12-10] MEDS ORDERED: NICOTINE 14 MG PATCH TOP STA (17:52)
[2021-12-10] MEDS: SODIUM CHLORIDE 0.9% 1,000 ML IV SCH (18:20)
[2021-12-10] MEDS: SODIUM CHLORIDE FLUSH 0.9% 10 ML SYRINGE IVP SCH (18:27)
[2021-12-10] MEDS: INSULIN LISPRO 300 UNIT/3 ML PEN SUBQ SCH (21:06)
[2021-12-10] MEDS: APIXABAN 2.5 MG TABLET PO SCH (21:06)
[2021-12-11] MEDS: oxyCODONE 5 MG TABLET PO PRN ×3 (01:33→23:58)
[2021-12-11] MEDS: SODIUM CHLORIDE 0.9% 1,000 ML IV SCH ×3 (04:38→23:57)
[2021-12-11 05:58] LABS: BASOPHILS % (AUTO) 0.4 %; EOSINOPHILS # (AUTO) 0.2 10^3/uL (0.0-0.7); EOSINOPHILS % (AUTO) 1.7 %; HCT - HEMATOCRIT 39.9 % (37.0-47.0); HGB - HEMOGLOBIN 13.4 g/dL (12.0-16.0); LYMPHOCYTES # (AUTO) 2.5 10^3/uL (1.5-3.5); LYMPHOCYTES % (AUTO) 23.5 %; MEAN CORPUSCULAR HEMOGLOBIN 32.2 pg (27.0-31.0); MEAN CORPUSCULAR HGB CONC 33.6 g/dL (32.0-36.0); MEAN CORPUSCULAR VOLUME 95.9 fL (81.0-99.0); MEAN PLATELET VOLUME 10.2 fL (7.9-10.8); MONOCYTES # (AUTO) 0.8 10^3/uL (0.0-1.0); MONOCYTES % (AUTO) 7.1 %; NEUTROPHILS # (AUTO) 7.1 10^3/uL (1.5-6.6); PLT - PLATELET COUNT 186 10^3/uL (130-450); RED BLOOD COUNT 4.16 10^6/uL (4.20-5.40); RED CELL DISTRIBUTION WIDTH 12.8 % (12.0-15.0); WHITE BLOOD COUNT 10.5 x10^3/uL (4.8-10.8)
[2021-12-11 06:06] LABS: CALCIUM 8.5 mg/dL (8.5-10.3); CREATININE 1.5 mg/dL (0.4-1.0); POTASSIUM 3.8 mmol/L (3.5-5.0)
[2021-12-11] MEDS: INSULIN LISPRO 300 UNIT/3 ML PEN SUBQ SCH ×4 (08:26→21:02)
[2021-12-11] MEDS: HYDROCORTISONE 10 MG TABLET PO SCH (08:26)
[2021-12-11] MEDS: APIXABAN 2.5 MG TABLET PO SCH ×2 (08:26→19:41)
[2021-12-11] MEDS: AMIODARONE 200 MG TABLET PO SCH (08:26)
[2021-12-11] MEDS: SODIUM CHLORIDE FLUSH 0.9% 10 ML SYRINGE IVP SCH ×4 (08:27→20:21)
--- NOTE | 2021-12-11 08:29 | PROVIDER PROGRESS NOTE ---
Assessment/Plan - Problem List (1) Hypotension Qualifiers: Hypotension type: unspecified hypotension type Qualified Code(s): I95.9 - Hypotension, unspecified Assessment/Plan: Likely secondary to dehydration and medication use. Continue to hold lis inopril, Lasix and metoprolol. Patient's systolic blood pressure improved with reading of 112 today. Continue IV hydration with normal saline at 100 mL/h. Continue Cortef 10 mg p.o. daily. (2) Acute on chronic kidney failure Assessment/Plan: Improved. Patient's creatinine today was 1.5. This is an improvement from 2.5 the previous day. Suspected that acute kidney injury was due to dehydration in the setting of continued use of Lasix, lisinopril and metoprolol. (3) Cervical radiculopathy Assessment/Plan: Cervical spine CT done yesterday was negative for any acute fracture or traumatic malalignment. Straightening of the cervical lordosis was thought to be related to concurrent muscle spasm. Moderate to severe multilevel cervical spondylosis With moderate bilateral neural foraminal stenosis from C3-C4 through C6-C7 No significant spinal canal stenosis noted. Continue pain management with Tylenol, oxycodone and Dilaudid as needed. Flexeril was ordered for muscle relaxant. (4) Chronic atrial fibrillation Assessment/Plan: Currently rate controlled. We will continue patient's Eliquis at a reduced dose of 2.5 mg p.o. twice daily while renal function is poor with an estimated GFR of 20. Will resume metoprolol when patient's blood pressure is improved. Will continue amiodarone (5) Chronic pain Assessment/Plan: Pain management as needed with Tylenol, oxycodone and Dilaudid as neede (6) Diabetes mellitus type 2 in obese Assessment/Plan: Accu-Cheks q. ACH S. Sliding scale insulin. Metformin held due to acute kidney injury. (7) Systolic heart failure Assessment/Plan: Currently not in exacerbation. We will hold metoprolol, lisinopril and Lasix while hydrating patient for hypotension. Will resume medications once blood pressure improves (8) Tobacco dependence in remission Assessment/Plan: Nicotine patch ordered. - Current Meds Current Meds: Current Medications Generic Name Dose Route Start Last Admin Trade Name Freq PRN Reason Stop Dose Admin Acetaminophen 650 mg 12/10/21 16:55 12/11/21 01:33 Acetaminophen 325 Mg Tablet PO 650 mg Q4HR PRN Administration Pain 1 to 4, or Fever Amiodarone HCl 100 mg 12/11/21 09:00 12/11/21 08:26 Amiodarone 200 Mg Tablet PO 100 mg DAILY ROMAN Administration Apixaban 2.5 mg 12/10/21 21:00 12/11/21 08:26 Apixaban 2.5 Mg Tablet PO 2.5 mg BID ROMAN Administration Hydrocortisone 10 mg 12/11/21 08:00 12/11/21 08:26 Hydrocortisone 10 Mg Tablet PO 10 mg DAILYWM ROMAN Administration Sodium Chloride 1,000 mls @ 100 mls/hr 12/10/21 17:00 12/11/21 04:38 Normal Saline 0.9% IV 100 mls/hr .Q10H ROMAN Administration Insulin Human Lispro 1 - 9 unit 12/10/21 21:00 12/11/21 08:26 Insulin Lispro 300 Unit/3 Ml Pen SUBQ Not Given 0800,1200,1700,2100 [facility] Protocol Oxycodone HCl 5 mg 12/10/21 16:55 12/11/21 01:33 Oxycodone 5 Mg Tablet PO 5 mg Q4HR PRN Administration Pain 5 to 7 Sodium Chloride 10 ml 12/10/21 17:00 12/11/21 08:27 Sodium Chloride Flush 0.9% 10 Ml Syringe IVP 10 ml 0100,0900,1700 ROMAN Administration - Lab Result Fish Bone Diagrams: 12/11/21 05:45 12/11/21 05:45 - Additional Planning My Orders: My Active Orders 12/10/21 Dinner Carb-controlled Diet [DIET] 12/10/21 16:48 Activity Orders [RC] Q2HR IO [RC] IOSHIFT Incentive Spirometry - RT [RC] TID Initiate Bowel Care Protocol [RC] .protocol Initiate Line Care Protocol [RC] QSHIFT Initiate Personal Care Protoco [RC] .protocol Oxygen Therapy [RC] .PRN Telemetry- [RC] Q4HR Vital Signs [RC] Q4HR Sodium Chloride Flush 0.9% [Normal Saline Flush 0.9%] 10 ml IVP PRN PRN Code Status [OTHERS] Routine Condition of Patient [OTHERS] Routine DVT Prophylaxis [OTHERS] Routine 12/10/21 16:55 Acetaminophen [Tylenol] 650 mg PO Q4HR PRN Ondansetron Inj [Zofran Inj] 4 mg IVP Q6HR PRN oxyCODONE [Roxicodone] 5 mg PO Q4HR PRN 12/10/21 17:00 Sodium Chloride 0.9% [Normal Saline 0.9%] 1,000 ml IV 100 mls/hr Sodium Chloride Flush 0.9% [Normal Saline Flush 0.9%] 10 ml IVP 0100,0900,1700 12/10/21 17:04 Blood Glucose Checks - Eating [RC] 0800,1200,1700,2100 Initiate Hypoglycemia Protocol [RC] .protocol HYDROmorphone 0.5MG SYRINGE [Dilaudid 0.5MG Syringe] 0.5 mg IVP Q3H PRN 12/10/21 21:00 Apixaban [Eliquis] 2.5 mg PO BID Insulin Lispro [Humalog Kwikpen U-100] 1 - 9 unit SUBQ 0800,1200,1700,2100 12/11/21 08:00 Hydrocortisone [Cortef] 10 mg PO DAILYWM 12/11/21 09:00 Amiodarone [Pacerone] 100 mg PO DAILY 12/12/21 05:00 BMP - BASIC METABOLIC PANEL [CHEM] DAILYLAB CBC - COMP BLD CT W/AUTO DIFF [HEME] DAILYLAB 12/13/21 05:00 BMP - BASIC METABOLIC PANEL [CHEM] DAILYLAB CBC - COMP BLD CT W/AUTO DIFF [HEME] DAILYLAB 12/14/21 05:00 BMP - BASIC METABOLIC PANEL [CHEM] DAILYLAB CBC - COMP BLD CT W/AUTO DIFF [HEME] DAILYLAB 12/15/21 05:00 BMP - BASIC METABOLIC PANEL [CHEM] DAILYLAB CBC - COMP BLD CT W/AUTO DIFF [HEME] DAILYLAB Subjective - Subjective Patient Reports: Other (Patient was resting comfortably in bed. Neck pain persists.) Objective Vital Signs: Vital Signs - 24 hr 12/10/21 12/10/21 12/10/21 12:49 15:18 17:08 Temperature 36.3 C L 36.6 C Heart Rate 60 63 60 Heart Rate [ Brachial] Respiratory 18 11 L 19 Rate Blood Pressure 94/39 L 82/53 L 88/47 L Blood Pressure [Left Brachial artery] Blood Pressure [Left Radial artery] Blood Pressure [Right Brachial artery] O2 Saturation 98 99 96 12/10/21 12/10/21 12/10/21 18:20 21:00 21:22 Temperature 36.5 C 37.2 C Heart Rate Heart Rate [ 68 64 64 Brachial] Respiratory 22 24 Rate Blood Pressure Blood Pressure 91/41 L [Left Brachial artery] Blood Pressure 106/55 L [Left Radial artery] Blood Pressure 100/64 [Right Brachial artery] O2 Saturation 97 90 L 12/10/21 12/11/21 12/11/21 23:47 04:34 07: Temperature 36.4 C L 36.5 C Heart Rate Heart Rate [ 59 L 59 L 61 Brachial] Respiratory 20 18 18 Rate Blood Pressure Blood Pressure 96/39 L 93/38 L 92/50 L [Left Brachial artery] Blood Pressure [Left Radial artery] Blood Pressure [Right Brachial artery] O2 Saturation 94 91 L 95 Oxygen O2 Source [With Activity] Room air O2 Source Room air I&O (Last 24 Hrs): Intake and Output Totals x24h 12/09/21 12/10/21 12/11/21 23:59 23:59 23:59 Intake Total 2820 1540 Output Total 700 600 Balance 2120 940 General: Alert, Oriented x3, No acute distress HEENT: PERRLA, EOMI Neck: Supple, No JVD Neuro: Alert, Oriented Times 3 Cardiovascular: Regular rate, Normal S1, Normal S2 Respiratory: Chest non-tender, No respiratory distress, Wheezes Abdomen: Normal bowel sounds, Soft Extremities: No clubbing, No edema Skin: No rashes, No breakdown, No significant lesion - Results Results: Laboratory Results WBC 10.5 x10^3/uL (4.8-10.8) 12/11/21 05:45 RBC 4.16 10^6/uL (4.20-5.40) L 12/11/21 05:45 Hgb 13.4 g/dL (12.0-16.0) 12/11/21 05:45 Hct 39.9 % (37.0-47.0) 12/11/21 05:45 MCV 95.9 fL (81.0-99.0) 12/11/21 05:45 MCH 32.2 pg (27.0-31.0) H 12/11/21 05:45 MCHC 33.6 g/dL (32.0-36.0) 12/11/21 05:45 RDW 12.8 % (12.0-15.0) 12/11/21 05:45 Plt Count 186 10^3/uL (130-450) 12/11/21 05:45 MPV 10.2 fL (7.9-10.8) 12/11/21 05:45 Neut # (Auto) 7.1 10^3/uL (1.5-6.6) H 12/11/21 05:45 Lymph # (Auto) 2.5 10^3/uL (1.5-3.5) 12/11/21 05:45 [place] # (Auto) 0.8 10^3/uL (0.0-1.0) 12/11/21 05:45 Eos # (Auto) 0.2 10^3/uL (0.0-0.7) 12/11/21 05:45 Baso # (Auto) 0.0 10^3/uL (0.0-0.1) 12/11/21 05:45 Absolute Nucleated RBC 0.00 x10^3/uL 12/11/21 05:45 Nucleated RBC % 0.0 /100WBC 12/11/21 05:45 Sodium 136 mmol/L (135-145) 12/11/21 05:45 Potassium 3.8 mmol/L (3.5-5.0) 12/11/21 05:45 Chloride 104 mmol/L (101-111) 12/11/21 05:45 Carbon Dioxide 24 mmol/L (21-32) 12/11/21 05:45 Anion Gap 8.0 (6-13) 12/11/21 05:45 BUN 39 mg/dL (6-20) H 12/11/21 05:45 Creatinine 1.5 mg/dL (0.4-1.0) H 12/11/21 05:45 Estimated GFR (MDRD) 36 (>89) L 12/11/21 05:45 Glucose 172 mg/dL (70-100) H 12/11/21 05:45 POC Whole Bld Glucose 120 mg/dL (70 - 100) H 12/11/21 07:23 Lactic Acid 0.9 mmol/L (0.5-2.2) 12/10/21 16:26 Calcium 8.5 mg/dL (8.5-10.3) 12/11/21 05:45 Magnesium 2.0 mg/dL (1.7-2.8) 12/10/21 13:30 Total Bilirubin 0.6 mg/dL (0.2-1.0) 12/10/21 13:30 AST 18 IU/L (10-42) 12/10/21 13:30 ALT 18 IU/L (10-60) 12/10/21 13:30 Alkaline Phosphatase 92 IU/L (42-121) 12/10/21 13:30 B-Natriuretic Peptide 37 pg/mL (5-100) 12/10/21 15:23 Total Protein 7.1 g/dL (6.7-8.2) 12/10/21 13:30 Albumin 3.9 g/dL (3.2-5.5) 12/10/21 13:30 Globulin 3.2 g/dL (2.1-4.2) 12/10/21 13:30 Albumin/Globulin Ratio 1.2 (1.0-2.2) 12/10/21 13:30 Lipase 74 U/L (22-51) H 12/10/21 13:30 Cortisol 3.6 ug/dL 12/10/21 16:26 SARS-CoV-2 (PCR) NOT DETECTED 12/10/21 15:15 - Procedures Procedures: Procedures (02/05/21) ESOPHAGOGASTRODUODENOSCOPY [EGD] W/CLOSED BIOPSY (11/29/13) INSERTION OF INFUSION DEV INTO SUP VENA CAVA, PERC APPROACH (12/28/17) MANUAL RUPT JOINT ADHES (04/27/14) TOTAL KNEE REPLACEMENT (06/16/14) ABX Reporting Has patient been on IV antibiotics over the past 48 hours?: No
[2021-12-11] MEDS: CYCLOBENZAPRINE 10 MG TABLET PO PRN ×2 (12:32→19:41)
--- NOTE | 2021-12-11 13:31 | PHARMACY PROGRESS NOTE ---
- Best Possible Medication History Admit Date and Time: 12/10/21 2134 Processed by: Pharmacy Medication History completed: Yes Secondary Source(s): Physician records, Pharmacy records, Insurance records, Previous admit records As the person ultimately responsible for medication therapy, providers are able to order a medication from an existing home medication list in [facility] via the "Reconcile Routine" prior to Confirmation of that medication by windows server support technician. Such practice is discouraged except when the physician, in their clinical judgment, deems that a medical need exists for a medication without regard to previous use.
[2021-12-12] MEDS ORDERED: ZINC OXIDE 20% OINT 30 GM TUBE TOP PRN (05:00)
[2021-12-12 05:09] LABS: BASOPHILS % (AUTO) 0.4 %; EOSINOPHILS # (AUTO) 0.2 10^3/uL (0.0-0.7); EOSINOPHILS % (AUTO) 2.4 %; HCT - HEMATOCRIT 45.9 % (37.0-47.0); HGB - HEMOGLOBIN 14.8 g/dL (12.0-16.0); LYMPHOCYTES # (AUTO) 2.4 10^3/uL (1.5-3.5); LYMPHOCYTES % (AUTO) 30.4 %; MEAN CORPUSCULAR HEMOGLOBIN 31.2 pg (27.0-31.0); MEAN CORPUSCULAR HGB CONC 32.2 g/dL (32.0-36.0); MEAN CORPUSCULAR VOLUME 96.8 fL (81.0-99.0); MEAN PLATELET VOLUME 10.3 fL (7.9-10.8); MONOCYTES # (AUTO) 0.7 10^3/uL (0.0-1.0); MONOCYTES % (AUTO) 9.2 %; NEUTROPHILS # (AUTO) 4.5 10^3/uL (1.5-6.6); NEUTROPHILS % (AUTO) 57.3 %; PLT - PLATELET COUNT 194 10^3/uL (130-450); RED BLOOD COUNT 4.74 10^6/uL (4.20-5.40); RED CELL DISTRIBUTION WIDTH 12.7 % (12.0-15.0); WHITE BLOOD COUNT 7.9 x10^3/uL (4.8-10.8)
[2021-12-12 05:13] LABS: CALCIUM 9.2 mg/dL (8.5-10.3); POTASSIUM 4.2 mmol/L (3.5-5.0)
--- NOTE | 2021-12-12 07:24 | Discharge Plan ---
Discharge Plan Problem Reviewed?: Yes Disposition: Home, Self Care Condition: Stable Prescriptions: Cyclobenzaprine [Flexeril] 10 mg PO TID PRN 6 Days #20 tablet PRN Reason: Spasms HYDROcod/ACETAM 5/325 [[place] 5/325] 1 tab PO Q6H PRN #15 tablet PRN Reason: Pain Diet: Cardiac Activity Restrictions: Activity as Tolerated Weight Bearing: Full Weight Health Concerns: Patient is a 56-year-old female Who was admitted on 12/10/2021 with hypotension. Systolic blood pressure was as low as 70 at the primary care physician's office. This was suspected to be due to dehydration while continuing to take her cardiac medications. Her creatinine at time of presentation was 2.5. Patient was given 2 L bolus of normal saline in the ED and started on IV hydration with normal saline at 100 mL/h upon admission to the [facility] floor. Over 24 hours her blood pressure improved to the 90s. Her creatinine was 1.5. By the day of discharge creatinine was 1.0 with estimated GFR 57. The patient was also treated with Cortef 10 mg p.o. daily during her hospital stay. She has cervical radiculopathy and due to significant neck and shoulder pain a Cervical spine CT was done. It was negative for any acute fracture or traumatic malalignment. Straightening of the cervical lordosis was thought to be related to concurrent muscle spasm. Moderate to severe multilevel cervical spondylosis with moderate bilateral neural foraminal stenosis from C3-C4 through C6-C7. No significant spinal canal stenosis noted. She will be prescribed [place] and Flexeril upon discharge. Patient will need to follow-up with her primary care physician for referral to a spine surgeon. She would likely need to undergo significant cardiac evaluation by a gear machine operator prior to any potential surgery. The above was explained to the patient, she expressed understanding and was in agreement No Smoking: If you smoke, Please STOP! Call for help. Follow-up with: Yolanda Thacker ARNP [Primary Care Provider] -
--- NOTE | 2021-12-12 07:24 | DISCHARGE SUMMARY ---
Discharge Summary Admit Date: 12/10/21 Discharge Date: 12/12/21 Discharging Provider: Shayne Cedillo Primary Care Provider: Yolanda Thacker Code Status: Attempt Resuscitation Condition at Discharge: Stable Discharge Disposition: 01 Home, Self Care - DIAGNOSES Admission Diagnoses: Hypotension Acute on chronic kidney failure Cervical radiculopathy Chronic atrial fibrillation Chronic pain Diabetes mellitus type 2 in obese Systolic heart failure Tobacco dependence in remission Discharge Diagnoses with Status of Each Condition: Hypotension: Acute. Resolved. This was secondary to dehydration while taking cardiac medications. Acute on chronic kidney failure: Resolved. This was secondary to dehydration. Cervical radiculopathy: Chronic. Moderate spondylosis. Patient to follow-up with her primary care physician for referral to a spine surgeon. Chronic atrial fibrillation: Stable. Continue home medications Chronic pain: Diabetes mellitus type 2 in obese: Continue home medications Systolic heart failure: Stable. Continue home medications Tobacco dependence in remission - HPI History of Present Illness: Patient is a 56-year-old female with medical history significant for COPD, heart failure with reduced ejection fraction, obstructive sleep apnea, atrial fibrillation, history of cardiac arrest with ICD in place who presented to the ED today at the request of her primary care provider because she was noted to have very low blood pressure at her appointment today. Her blood pressure was as low as 70/40. She had gone to see her primary care physician because of bilateral upper extremity numbness from her elbow down to her fingers and pain around her neck. In the ED she was found to have a systolic blood pressure of about 85. Despite 1 L bolus of fluid she stayed in the 80s. She is on several antihypertensives and diuretics which include Lisinopril, furosemide and metoprolol. She has been experiencing increased urination and diarrhea lately as well. Work-up in the ED showed a creatinine of 2.5, BUN 50 and estimated GFR 20. As a result of the above she was presented for admission for further treatment. She has chronic dyspnea due to COPD and CHF. She reports abdominal pain lately associated with the diarrhea. She reported some nausea but no vomiting. She does not have fever or chills. Picking her upper extremities full ranges of motion at the shoulder produces significant pain in her shoulders and neck. - HOSPITAL COURSE Hospital Course: Patient is a 56-year-old female Who was admitted on 12/10/2021 with hypotension. Systolic blood pressure was as low as 70 at the primary care physician's office. This was suspected to be due to dehydration while continuing to take her cardiac medications. Her creatinine at time of presentation was 2.5. Patient was given 2 L bolus of normal saline in the ED and started on IV hy dration with normal saline at 100 mL/h upon admission to the [facility] floor. Over 24 hours her blood pressure improved to the 90s. Her creatinine was 1.5. By the day of discharge creatinine was 1.0 with estimated GFR 57. The patient was also treated with Cortef 10 mg p.o. daily during her hospital s isaac. She has cervical radiculopathy and due to significant neck and shoulder pain a Cervical spine CT was done. It was negative for any acute fracture or traumatic malalignment. Straightening of the cervical lordosis was thought to be related to concurrent muscle spasm. Moderate to severe multilevel cervical spondylosis with moderate bilateral neural foraminal stenosis from C3-C4 through C6-C7. No significant spinal canal stenosis noted. She will be prescribed [place] and Flexeril upon discharge. Patient will need to follow-up with her primary care physician for referral to a spine surgeon. She would likely need to undergo significant cardiac evaluation by a soap drier tender prior to any potential surgery. The above was explained to the patient, she expressed understanding and was in agreement - ALLERGIES Allergies/Adverse Reactions: Allergies Allergy/AdvReac Type Severity Reaction Status Date / Time codeine [Codeine] Allergy Severe Swelling/Hi Verified 12/10/21 12:54 ves erythromycin base Allergy Severe Anaphylaxis Verified 12/10/21 12:54 [Erythromycin Base] gabapentin Allergy Severe Anaphylaxis Verified 12/10/21 12:54 Latex, Natural Rubber Allergy Severe Blisters Verified 12/10/21 12:54 pamabrom [From Midol] Allergy Severe Respiratory Verified 12/10/21 12:54 pyrilamine maleate * Allergy Severe Respiratory Verified 12/10/21 12:54 [From Midol] shellfish derived Allergy Severe Anaphylaxis Verified 12/10/21 12:54 venom-honey bee Allergy Severe Anaphylaxis Verified 12/10/21 12:54 [bee venom (honey bee)] chlorhexidine Allergy Intermediate Rash Verified 12/10/21 12:54 morphine Allergy Respiratory Verified 12/10/21 12:54 ondansetron Allergy Respiratory Verified 10/21/21 16:09 piperacillin [From Zosyn] AdvReac Rash Verified 10/21/21 16:09 tazobactam [From Zosyn] AdvReac Rash Verified 10/21/21 16:09 - MEDICATIONS Home Medications: Ambulatory Orders Medication Instructions Recorded Confirmed Furosemide 40 mg PO BIDDIURETIC 09/07/20 12/11/21 Apixaban [Eliquis] 5 mg PO BID 10/24/20 12/11/21 Albuterol Sulfate [Proair Hfa 2 puffs INH Q4H PRN #1 inh 10/29/20 12/11/21 Inhaler] Amiodarone [Pacerone] 100 mg PO DAILY 02/04/21 12/11/21 Nitroglycerin [Nitrostat] 0.4 mg PO Q5MIN PRN 03/16/21 12/11/21 EPINEPHrine [Epinephrine] 0.3 mg IM PRN PRN 12/11/21 12/11/21 Glipizide [Glipizide ER] 5 mg PO DAILY 12/11/21 12/11/21 Metoprolol Succinate [Toprol Xl] 50 mg PO BID 12/11/21 12/11/21 Spironolactone [Aldactone] 25 mg PO DAILY 12/11/21 12/11/21 lisinopriL [Zestril] 5 mg PO DAILY 12/11/21 12/11/21 Cyclobenzaprine [Flexeril] 10 mg PO TID PRN 6 Days #20 tablet 12/12/21 HYDROcod/ACETAM 5/325 [[place] 5/325] 1 tab PO Q6H PRN #15 tablet 12/12/21 - PHYSICAL EXAM AT DISCHARGE General Appearance: positive: Moderate distress Eyes Bilateral: positive: PERRL, EOMI ENT: positive: No signs of dehydration Neck: positive: No JVD, Trachea midline Respiratory: positive: Chest non-tender, No respiratory distress, Wheezes (chronic) Cardiovascular: positive: Irregularly irregular. negative: Tachycardia Abdomen: positive: Non-tender, No organomegaly, Nml bowel sounds, No distention. negative: Guarding, Rebound Back: positive: Nml inspection Skin: positive: Color nml, No rash, Warm, Dry Extremities: positive: No pedal edema Neurologic/Psychiatric: positive: Oriented x3, Mood/affect nml - LABS Result Diagrams: 12/12/21 04:36 12/12/21 04:36 - TIME SPENT Time Spent in Discharge (Minutes): 20
[2021-12-12] MEDS: INSULIN LISPRO 300 UNIT/3 ML PEN SUBQ SCH (07:38)
[2021-12-12] MEDS: APIXABAN 2.5 MG TABLET PO SCH (08:44)
[2021-12-12] MEDS: AMIODARONE 200 MG TABLET PO SCH (08:44)
[2021-12-12] MEDS: CYCLOBENZAPRINE 10 MG TABLET PO PRN (08:44)
[2021-12-12] MEDS: SODIUM CHLORIDE FLUSH 0.9% 10 ML SYRINGE IVP SCH (08:44)
[2021-12-12] MEDS: HYDROCORTISONE 10 MG TABLET PO SCH (08:44)
[2021-12-12 10:51] VITALS: BP 96/48
== END 2021-12-12 12:15 | disposition home or self-care (01) | DRG 641 ==
LOC: ED 12:42 → MS2 16:48 → OBSVTOIN 12-11 12:21
PROVIDERS: ADMIT Internal Medicine; ATTEND Internal Medicine
DX: I95.9 Hypotension, unspecified (principal); E86.0 Dehydration; I13.0 Hypertensive heart and chronic kidney disease with heart failure and stage 1 through stage 4 chronic kidney disease, or unspecified chronic kidney disease; N17.9 Acute kidney failure, unspecified; I50.22 Chronic systolic (congestive) heart failure; I48.20 Chronic atrial fibrillation, unspecified; N18.9 Chronic kidney disease, unspecified; M47.22 Other spondylosis with radiculopathy, cervical region; E11.22 Type 2 diabetes mellitus with diabetic chronic kidney disease; E78.00 Pure hypercholesterolemia, unspecified; G89.29 Other chronic pain; M54.9 Dorsalgia, unspecified; I25.10 Atherosclerotic heart disease of native coronary artery without angina pectoris; F17.201 Nicotine dependence, unspecified, in remission; J43.9 Emphysema, unspecified; H54.7 Unspecified visual loss; H91.90 Unspecified hearing loss, unspecified ear; F32.A Depression, unspecified; M79.602 Pain in left arm; M79.601 Pain in right arm; M25.511 Pain in right shoulder; M25.512 Pain in left shoulder; M48.02 Spinal stenosis, cervical region; G47.33 Obstructive sleep apnea (adult) (pediatric); F41.9 Anxiety disorder, unspecified; I25.2 Old myocardial infarction; Z20.822 Contact with and (suspected) exposure to COVID-19; K21.9 Gastro-esophageal reflux disease without esophagitis; Z79.01 Long term (current) use of anticoagulants; Z79.52 Long term (current) use of systemic steroids; Z79.84 Long term (current) use of oral hypoglycemic drugs; Z79.899 Other long term (current) drug therapy; Z80.9 Family history of malignant neoplasm, unspecified; Z82.3 Family history of stroke; Z82.49 Family history of ischemic heart disease and other diseases of the circulatory system; Z83.3 Family history of diabetes mellitus; Z90.49 Acquired absence of other specified parts of digestive tract; Z90.710 Acquired absence of both cervix and uterus; Z95.810 Presence of automatic (implantable) cardiac defibrillator; Z96.659 Presence of unspecified artificial knee joint
CPT/HCPCS: 36415; 71045; 72125; 80048; 80053; 82533; 83605; 83690; 83735; 83880; 85025; 87635; 93005; 96361; 96374; 96375; 99283; 99285; A9270; J1170

== ENCOUNTER 2022-02-07 19:49 | Inpatient (IN) | payer OTHER, MEDICARE, MEDICAID ==
[2022-02-07] MEDS ORDERED: SODIUM CHLORIDE 0.9% 1,000 ML IV STA ×2 (20:29→20:31)
[2022-02-07] MEDS ORDERED: IPRATROPIUM/ALBUTEROL 3 ML NEB INH STA (20:33)
[2022-02-07 20:36] LABS: BASOPHILS # (AUTO) 0.1 10^3/uL (0.0-0.1); BASOPHILS % (AUTO) 0.5 %; EOSINOPHILS # (AUTO) 0.1 10^3/uL (0.0-0.7); EOSINOPHILS % (AUTO) 1.1 %; HCT - HEMATOCRIT 46.5 % (37.0-47.0); HGB - HEMOGLOBIN 15.9 g/dL (12.0-16.0); LYMPHOCYTES # (AUTO) 1.7 10^3/uL (1.5-3.5); LYMPHOCYTES % (AUTO) 12.6 %; MEAN CORPUSCULAR HEMOGLOBIN 32.3 pg (27.0-31.0); MEAN CORPUSCULAR HGB CONC 34.2 g/dL (32.0-36.0); MEAN CORPUSCULAR VOLUME 94.5 fL (81.0-99.0); MEAN PLATELET VOLUME 9.9 fL (7.9-10.8); MONOCYTES # (AUTO) 1.3 10^3/uL (0.0-1.0); MONOCYTES % (AUTO) 9.7 %; NEUTROPHILS % (AUTO) 75.6 %; PLT - PLATELET COUNT 242 10^3/uL (130-450); RED BLOOD COUNT 4.92 10^6/uL (4.20-5.40); RED CELL DISTRIBUTION WIDTH 12.6 % (12.0-15.0); WHITE BLOOD COUNT 13.2 x10^3/uL (4.8-10.8)
[2022-02-07 20:46] LABS: ALBUMIN 3.9 g/dL (3.2-5.5); ALBUMIN/GLOBULIN RATIO 1.1 (1.0-2.2); BILIRUBIN,TOTAL 0.7 mg/dL (0.2-1.0); CALCIUM 9.7 mg/dL (8.5-10.3); CREATININE 1.8 mg/dL (0.4-1.0); POTASSIUM 4.1 mmol/L (3.5-5.0); TOTAL PROTEIN 7.3 g/dL (6.7-8.2)
[2022-02-07] MEDS ORDERED: LORazepam 2 MG/ML VIAL IVP STA (20:47)
--- NOTE | 2022-02-07 20:51 | XRAY Report ---
PROCEDURE: Chest 1 View X-Ray INDICATIONS: Chest pain TECHNIQUE: One view of the chest was acquired. COMPARISON: 12/10/2021 FINDINGS: Surgical changes and devices: Left chest wall cardiac pacing device again noted. Lungs and pleura: No pleural effusions or pneumothorax. Mild pulmonary vascular engorgement/congesti on. Mediastinum: Mediastinal contours appear normal. Heart size is normal. Bones and chest wall: No suspicious bony lesions. Overlying soft tissues appear unremarkable. IMPRESSION: No acute finding. Mild pulmonary vascular congestion. Reviewed by: Gaston Thorne MD on 02/07/2022 8:50 PM PDT Approved by: Gaston Thorne MD on 02/07/2022 8:50 PM PDT Station ID: [id number]
[2022-02-07] MEDS ORDERED: KETOROLAC 30 MG/ML VIAL IVP STA (20:57)
[2022-02-07] MEDS ORDERED: HYDROmorphone 1 MG/ML CARPUJECT IVP STA (20:57)
[2022-02-07] MEDS ORDERED: DEXAMETHASONE 10 MG/ML VIAL IV STA (20:57)
[2022-02-07] MEDS ORDERED: ALBUTEROL NEB 2.5 MG/3 ML INH STA (20:58)
[2022-02-07 22:03] LABS: CORONAVIRUS 229E-RESP PCR NOT DETECTED; CORONAVIRUS HKU1-RESP PCR NOT DETECTED; CORONAVIRUS NL63-RESP PCR NOT DETECTED; CORONAVIRUS OC43-RESP PCR NOT DETECTED; HUMAN METAPNEUMOVIRUS NOT DETECTED; INFLUENZA A- RESP PCR PANEL NOT DETECTED; INFLUENZA B - RESP PCR PANEL NOT DETECTED; RHINOVIRUS/ENTEROVIRUS NOT DETECTED; SARS-CoV-2 -RESP PCR PANEL NOT DETECTED
[2022-02-07 22:04] LABS: B. PARAPERTUSSIS- RESP PCR PAN NOT DETECTED; B. PERTUSSIS- RESP PCR PANEL NOT DETECTED; C. PNEUMONIAE- RESP PCR PANEL NOT DETECTED; M. PNEUMONIAE- RESP PCR PANEL NOT DETECTED; PARAINFLUENZA VIRUS 1 NOT DETECTED; PARAINFLUENZA VIRUS 2 NOT DETECTED; PARAINFLUENZA VIRUS 3 NOT DETECTED; PARAINFLUENZA VIRUS 4 NOT DETECTED; RSV- RESP PCR PANEL DETECTED
[2022-02-08] MEDS ORDERED: ALBUTEROL SULFATE 90 MCG INH PRN (00:27)
--- NOTE | 2022-02-08 00:32 | ED Physician Documentation ---
PD HPI DYSPNEA - Stated complaint Stated Complaint: HEAD PAIN,BODY ACHE,DIZZY - Chief complaint Chief Complaint: Resp - History obtained from History obtained from: Patient, Family - Additional information Additional information: Patient comes to the emergency department with chief complaint of shortness of breath and dizziness. She was exposed to her grandchild who is positive for RSV and has not been feeling well for the last few days. She has had a cough, congestion, and shortness of breath. Patient has a history of COPD and CHF, as well as pacemaker/defibrillator placement and anxiety/panic disorder. The patient has a nebulizer machine at home but for unclear reasons has not tried using it. She states she hurts everywhere. No measured fevers. She states that she has lower extremity edema chronically but it is not any worse right now than usual. No other complaints at this time. Review of Systems Ten Systems: 10 systems reviewed and negative Constitutional: reports: Reviewed and negative Eyes: reports: Reviewed and negative Ears: reports: Reviewed and negative Nose: reports: Rhinorrhea / runny nose, Congestion Throat: reports: Reviewed and negative Cardiac: reports: Pedal edema Respiratory: reports: Dyspnea, Cough GI: reports: Reviewed and negative : reports: Reviewed and negative Skin: reports: Reviewed and negative Musculoskeletal: reports: Reviewed and negative Neurologic: reports: Reviewed and negative Psychiatric: reports: Reviewed and negative Endocrine: reports: Reviewed and negative Immunocompromised: reports: Reviewed and negative PD PAST MEDICAL HISTORY - Past Medical History Past Medical History: Yes Cardiovascular: Congestive heart failure, Hypertension, High cholesterol, Coronary artery disease, [place], Atrial fibrillation, Murmur, Arrhythmia Respiratory: Asthma, COPD, Emphysema, Pneumonia, Shortness of breath, Other Neuro: Headaches, Tremors Endocrine/Autoimmune: None GI: GERD 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: Ectopic , Other : None, Frequency HEENT: Chronic vision loss, Chronic sinusitis, Chronic hearing loss Psych: Depression, Anxiety, Claustrophobia Musculoskeletal: Osteoarthritis, Fatigue, Chronic back pain Derm: None - Past Surgical History Past Surgical History: Yes General: Cholecystectomy, EGD Ortho: Knee replacement /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 TECHNICIAN: Hysterectomy, LEEP (Cervical surgery) Cardiovascular: Cardiac catheterization HEENT: Rhinoplasty - Present Medications Home Medications: Ambulatory Orders Medication Instructions Recorded Confirmed Furosemide 40 mg PO BIDDIURETIC 09/07/20 02/07/22 Apixaban [Eliquis] 5 mg PO BID 10/24/20 02/07/22 Albuterol Sulfate [Proair Hfa 2 puffs INH Q4H PRN #1 inh 10/29/20 02/07/22 Inhaler] Amiodarone [Pacerone] 100 mg PO DAILY 02/04/21 02/07/22 Nitroglycerin [Nitrostat] 0.4 mg PO Q5MIN PRN 03/16/21 02/07/22 EPINEPHrine [Epinephrine] 0.3 mg IM PRN PRN 12/11/21 02/07/22 Glipizide [Glipizide ER] 5 mg PO DAILY 12/11/21 02/07/22 Metoprolol Succinate [Toprol Xl] 50 mg PO BID 12/11/21 02/07/22 Spironolactone [Aldactone] 25 mg PO DAILY 12/11/21 02/07/22 lisinopriL [Zestril] 5 mg PO DAILY 12/11/21 02/07/22 Cyclobenzaprine [Flexeril] 10 mg PO TID PRN 6 Days #20 tablet 12/12/21 02/07/22 HYDROcod/ACETAM 5/325 [[place] 5/325] 1 tab PO Q6H PRN #15 tablet 12/12/21 02/07/22 - Allergies Allergies/Adverse Reactions: Allergies Allergy/AdvReac Type Severity Reaction Status Date / Time codeine [Codeine] Allergy Severe Swelling/Hi Verified 02/07/22 20:12 ves erythromycin base Allergy Severe Anaphylaxis Verified 02/07/22 20:12 [Erythromycin Base] gabapentin Allergy Severe Anaphylaxis Verified 02/07/22 20:12 Latex, Natural Rubber Allergy Severe Blisters Verified 02/07/22 20:12 pamabrom [From Midol] Allergy Severe Respiratory Verified 02/07/22 20:12 pyrilamine maleate * Allergy Severe Respiratory Verified 02/07/22 20:12 [From Midol] shellfish derived Allergy Severe Anaphylaxis Verified 02/07/22 20:12 venom-honey bee Allergy Severe Anaphylaxis Verified 02/07/22 20:12 [bee venom (honey bee)] chlorhexidine Allergy Intermediate Rash Verified 02/07/22 20:12 morphine Allergy Respiratory Verified 02/07/22 20:12 ondansetron Allergy Respiratory Verified 02/07/22 20:12 piperacillin [From Zosyn] AdvReac Rash Verified 02/07/22 20:12 tazobactam [From Zosyn] AdvReac Rash Verified 02/07/22 20:12 - Social History Does the pt smoke?: No Smoking Status: Never smoker Does the pt drink ETOH?: No Does the pt have substance abuse?: No - Immunizations Immunizations are current?: No Immunizations: Other immun not current - POLST Patient has POLST: No POLST Status: Full Code PD ED PE NORMAL - Vitals Vital signs reviewed: Yes - General General: Alert and oriented X 3, No acute distress, Well developed/nourished - HEENT HEENT: Atraumatic, PERRL, EOMI, Moist mucous membranes - Neck Neck: Supple, no meningeal sign - Cardiac Cardiac: RRR, No murmur, Strong equal pulses - Respiratory Respiratory: Other (Moderate respiratory distress, decreased air movement, moderate, bilaterally; expiratory wheezes throughout all lung mathews) - Abdomen Abdomen: Soft, Non tender, Non distended - Derm Derm: Normal color, Warm and dry, No rash - Extremities Extremities: No deformity, Other (Trace pitting edema bilateral lower extremities) - Neuro Neuro: Alert and oriented X 3, airline security representative 2-12 intact, Normal speech - Psych Psych: Other (The patient is anxious) Results - Vitals Vitals: Vital Signs - 24 hr 02/07/22 02/07/22 02/07/22 20:08 20:41 20:49 Temperature 36.8 C Heart Rate 91 88 79 Respiratory 26 H 29 H 20 Rate Blood Pressure 69/39 L 73/42 L O2 Saturation 89 L 94 If not protocol 2 3 : Oxygen Flow, liters/minute 02/07/22 02/07/22 02/07/22 20:55 21:12 21:28 Temperature Heart Rate 82 90 82 Respiratory 27 H 26 H 27 H Rate Blood Pressure 83/40 L 83/61 L 80/48 L O2 Saturation 92 94 95 If not protocol 3 4 : Oxygen Flow, liters/minute 02/07/22 02/07/22 02/07/22 21:30 21:31 21:56 Temperature Heart Rate 78 78 74 Respiratory 25 H 20 26 H Rate Blood Pressure 88/70 L 102/36 L O2 Saturation 93 92 If not protocol 3 3 3 : Oxygen Flow, liters/minute 02/07/22 02/07/22 02/07/22 22:00 22:14 22:23 Temperature Heart Rate 74 73 84 Respiratory 22 25 H 24 Rate Blood Pressure 125/80 101/50 L 99/50 L O2 Saturation 93 92 92 If not protocol 3 3 3 : Oxygen Flow, liters/minute 02/07/22 02/07/22 02/07/22 22:30 23:00 23:25 Temperature 36.8 C Heart Rate 74 74 63 Respiratory 21 23 26 H Rate Blood Pressure 91/48 L 93/50 L 96/55 L O2 Saturation 91 L 91 L 91 L If not protocol 3 3 3 : Oxygen Flow, liters/minute 02/07/22 02/08/22 02/08/22 23:30 00:00 00:07 Temperature Heart Rate 63 62 67 Respiratory 25 H 25 H 28 H Rate Blood Pressure 93/46 L 91/50 L 96/52 L O2 Saturation 914 H 91 L 91 L If not protocol 3 3 3 : Oxygen Flow, liters/minute 02/08/22 00:30 Temperature Heart Rate 61 Respiratory 16 Rate Blood Pressure 98/52 L O2 Saturation 92 If not protocol 3 : Oxygen Flow, liters/minute Oxygen O2 Source [With Activity] Room air O2 Source Oxymask Oxygen Flow Rate 3 - EKG (time done) 2021 Rate: Rate (enter#) (96) Rhythm: NSR [place]: Normal Intervals: Normal RI, RBBB QRS: LVH Ischemia: Normal ST segments, Non specific changes Compare to prior EKG: Old EKG unavailable Computer interpretation: Agree with computer - Labs Labs: Laboratory Tests 02/07/22 02/07/22 02/07/22 20:21 20:21 20:21 WBC 13.2 H RBC 4.92 Hgb 15.9 Hct 46.5 MCV 94.5 MCH 32.3 H MCHC 34.2 RDW 12.6 Plt Count 242 MPV 9.9 Neut # (Auto) 10.0 H Lymph # (Auto) 1.7 [place] # (Auto) 1.3 H Eos # (Auto) 0.1 Baso # (Auto) 0.1 Absolute Nucleated RBC 0.00 Nucleated RBC % 0.0 Sodium 137 Potassium 4.1 Chloride 99 L Carbon Dioxide 27 Anion Gap 11.0 BUN 18 Creatinine 1.8 H Estimated GFR (MDRD) 29 L Glucose 170 H Lactic Acid 1.5 Calcium 9.7 Total Bilirubin 0.7 AST 21 ALT 20 Alkaline Phosphatase 101 Troponin I High Sens B-Natriuretic Peptide Total Protein 7.3 Albumin 3.9 Globulin 3.4 Albumin/Globulin Ratio 1.1 Lipase 42 Nasal Adenovirus (PCR) Nasal B. parapertussis DNA (PCR) Nasal Coronavir 229E PCR Nasal Coronavir HKU1 PCR Nasal Coronavir NL63 PCR Nasal Coronavir OC43 PCR Nasal Enterovir/Rhinovir PCR Nasal Influenza B PCR Nasal Influenza A PCR Nasal Parainfluen 1 PCR Nasal Parainfluen 2 PCR Nasal Parainfluen 3 PCR Nasal Parainfluen 4 PCR Nasal RSV (PCR) Nasal B.pertussis DNA PCR Nasal C.pneumoniae (PCR) [place] Human Metapneumo PCR Nasal M.pneumoniae (PCR) Nasal SARS-CoV-2 (PCR) 02/07/22 02/07/22 02/07/22 20:21 20:21 20:30 WBC RBC Hgb Hct MCV MCH MCHC RDW Plt Count MPV Neut # (Auto) Lymph # (Auto) [place] # (Auto) Eos # (Auto) Baso # (Auto) Absolute Nucleated RBC Nucleated RBC % Sodium Potassium Chloride Carbon Dioxide Anion Gap BUN Creatinine Estimated GFR (MDRD) Glucose Lactic Acid Calcium Total Bilirubin AST ALT Alkaline Phosphatase Troponin I High Sens 9.8 B-Natriuretic Peptide 42 Total Protein Albumin Globulin Albumin/Globulin Ratio Lipase Nasal Adenovirus (PCR) NOT DETECTED Nasal B. parapertussis DNA (PCR) NOT DETECTED Nasal Coronavir 229E PCR NOT DETECTED Nasal Coronavir HKU1 PCR NOT DETECTED Nasal Coronavir NL63 PCR NOT DETECTED Nasal Coronavir OC43 PCR NOT DETECTED Nasal Enterovir/Rhinovir PCR NOT DETECTED Nasal Influenza B PCR NOT DETECTED Nasal Influenza A PCR NOT DETECTED Nasal Parainfluen 1 PCR NOT DETECTED Nasal Parainfluen 2 PCR NOT DETECTED Nasal Parainfluen 3 PCR NOT DETECTED Nasal Parainfluen 4 PCR NOT DETECTED Nasal RSV (PCR) DETECTED A Nasal B.pertussis DNA PCR NOT DETECTED Nasal C.pneumoniae (PCR) NOT DETECTED [place] Human Metapneumo PCR NOT DETECTED Nasal M.pneumoniae (PCR) NOT DETECTED Nasal SARS-CoV-2 (PCR) NOT DETECTED 02/07/22 22:23 WBC RBC Hgb Hct MCV MCH MCHC RDW Plt Count MPV Neut # (Auto) Lymph # (Auto) [place] # (Auto) Eos # (Auto) Baso # (Auto) Absolute Nucleated RBC Nucleated RBC % Sodium Potassium Chloride Carbon Dioxide Anion Gap BUN Creatinine Estimated GFR (MDRD) Glucose Lactic Acid Calcium Total Bilirubin AST ALT Alkaline Phosphatase Troponin I High Sens 8.5 B-Natriuretic Peptide Total Protein Albumin Globulin Albumin/Globulin Ratio Lipase Nasal Adenovirus (PCR) Nasal B. parapertussis DNA (PCR) Nasal Coronavir 229E PCR Nasal Coronavir HKU1 PCR Nasal Coronavir NL63 PCR Nasal Coronavir OC43 PCR Nasal Enterovir/Rhinovir PCR Nasal Influenza B PCR Nasal Influenza A PCR Nasal Parainfluen 1 PCR Nasal Parainfluen 2 PCR Nasal Parainfluen 3 PCR Nasal Parainfluen 4 PCR Nasal RSV (PCR) Nasal B.pertussis DNA PCR Nasal C.pneumoniae (PCR) [place] Human Metapneumo PCR Nasal M.pneumoniae (PCR) Nasal SARS-CoV-2 (PCR) - Rads (name of study) Chest x-ray Radiology: Final report received, EMP read indepedently, See rad report (Mild pulmonary vascular congestion) PD MEDICAL DECISION MAKING - ED course Complexity details: reviewed results, re-evaluated patient, considered differential, d/w patient, d/w solutions consultant ED course: The patient was given a DuoNeb as well as an albuterol nebulizer treatment and a dose of Decadron. She was also given IV Ativan and Dilaudid. The patient felt a little better but was still significantly wheezy and was still reporting dyspnea. She had come in hypotensive and was treated with IV fluid bolus with improvement in her blood pressure. She was also hypoxic when she arrived with O2 sats on room air in the mid 80s but did improve to the low 90s after treatments and with 2 L of oxygen per nasal cannula. EKG was unremarkable and labs showed a normal BNP and normal serial troponins. I felt this patient was having COPD exacerbation secondary to RSV, which she was found to have on her PCR panel. I did not feel this patient had improved enough to go home and felt she was in need of admission to the hospital. I spoke with telemetry hospitalist Dr. Kim, who agreed to admit the patient. Patient is also agreeable to the plan. - Critical Care Time(min): 45 Comments: Critical care time was necessary, secondary to high likelihood of imminent decline leading to , due to COPD exacerbation with hypoxia and Also due to hypotension. Time Includes: Direct patient care, Review records, Reassess patient, Document care, Coordinate care, Medical consult, See progress note Data interpretation: Labs, Pulse ox, CXR, Cardiac output, See progress note Departure - Departure Disposition: ED Place in Observation Clinical Impression: COPD exacerbation, RSV infection, Hypoxia, Dehydration Hypotension Qualifiers: Hypotension type: unspecified hypotension type Qualified Code(s): I95.9 - Hypotension, unspecified Condition: Serious Discharge Date/Time: 02/08/22 01:32
--- NOTE | 2022-02-08 01:11 | HISTORY & PHYSICAL EXAMINATION ---
Chief Complaint - Chief Complaint Chief Complaint: sob History of Present Illness - History Obtained From History obtained from: ED staff - History of Present Illness HPI Comment/Other: pt presents with progressive SOB and decreased PO intake for several days. pt's grandchild diagnosed with RSV. no chest pain reported but pt has felt tired and SOB. h/o copd. not on home O2. no fevers or chills reported. History - Past Medical History Cardiovascular: reports: Congestive heart failure, Hypertension, High cholesterol, Coronary artery disease, [place], Atrial fibrillation, Murmur, Arrhythmia Respiratory: reports: Asthma, COPD, Emphysema, Pneumonia, Shortness of breath, Other Neuro: reports: Headaches, Tremors Endocrine/Autoimmune: reports: None GI: reports: GERD TOOL/DIE MAKER: reports: Ectopic , Other : reports: None, Frequency HEENT: reports: Chronic vision loss, Chronic sinusitis, Chronic hearing loss Psych: reports: Depression, Anxiety, Claustrophobia Musculoskeletal: reports: Osteoarthritis, Fatigue, Chronic back pain Derm: reports: None MRSA Hx?: No - Past Surgical History General: reports: Cholecystectomy, EGD Ortho: reports: Knee replacement /TOOL/DIE MAKER: reports: Hysterectomy, LEEP (Cervical surgery) Cardiovascular: reports: Cardiac catheterization HEENT: reports: Rhinoplasty - Family & Social History Family History: Mother: Alive and Well, Alzheimer's Disease, Hyperlipidemia, Hypertension, Father: , Cancer, Other family: CVA/TIA, Diabetes, Type 1, [place] Family History Comment/Other: To her knowledge, her father from an unknown cancer. She denies a family history of heart disease or diabetes but review of prior records reveal that both her parents had coronary artery disease and diabetes. Living Situation: With family Social History Notes: She lives with her grand-daughter's boyfriend who she is trying to evict. 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 She reports that she quit smoking about a year ago. She started at the age of 7 and smoked up to 1.5 packs a day. She reported she had alcoholism but she quit alcohol use. - Substance History Use: Uses substance without health or social issues: NONE - POLST Patient has POLST: No POLST Status: Full Code Meds/Allgy - Home Medications Home Medications: Ambulatory Orders Medication Instructions Recorded Confirmed Furosemide 40 mg PO BIDDIURETIC 09/07/20 02/07/22 Apixaban [Eliquis] 5 mg PO BID 10/24/20 02/07/22 Albuterol Sulfate [Proair Hfa 2 puffs INH Q4H PRN #1 inh 10/29/20 02/07/22 Inhaler] Amiodarone [Pacerone] 100 mg PO DAILY 02/04/21 02/07/22 Nitroglycerin [Nitrostat] 0.4 mg PO Q5MIN PRN 03/16/21 02/07/22 EPINEPHrine [Epinephrine] 0.3 mg IM PRN PRN 12/11/21 02/07/22 Glipizide [Glipizide ER] 5 mg PO DAILY 12/11/21 02/07/22 Metoprolol Succinate [Toprol Xl] 50 mg PO BID 12/11/21 02/07/22 Spironolactone [Aldactone] 25 mg PO DAILY 12/11/21 02/07/22 lisinopriL [Zestril] 5 mg PO DAILY 12/11/21 02/07/22 Cyclobenzaprine [Flexeril] 10 mg PO TID PRN 6 Days #20 tablet 12/12/21 02/07/22 HYDROcod/ACETAM 5/325 [[place] 5/325] 1 tab PO Q6H PRN #15 tablet 12/12/21 02/07/22 - Allergies Allergies/Adverse Reactions: Allergies Allergy/AdvReac Type Severity Reaction Status Date / Time codeine [Codeine] Allergy Severe Swelling/Hi Verified 02/07/22 20:12 ves erythromycin base Allergy Severe Anaphylaxis Verified 02/07/22 20:12 [Erythromycin Base] gabapentin Allergy Severe Anaphylaxis Verified 02/07/22 20:12 Latex, Natural Rubber Allergy Severe Blisters Verified 02/07/22 20:12 pamabrom [From Midol] Allergy Severe Respiratory Verified 02/07/22 20:12 pyrilamine maleate * Allergy Severe Respiratory Verified 02/07/22 20:12 [From Midol] shellfish derived Allergy Severe Anaphylaxis Verified 02/07/22 20:12 venom-honey bee Allergy Severe Anaphylaxis Verified 02/07/22 20:12 [bee venom (honey bee)] chlorhexidine Allergy Intermediate Rash Verified 02/07/22 20:12 morphine Allergy Respiratory Verified 02/07/22 20:12 ondansetron Allergy Respiratory Verified 02/07/22 20:12 piperacillin [From Zosyn] AdvReac Rash Verified 02/07/22 20:12 tazobactam [From Zosyn] AdvReac Rash Verified 02/07/22 20:12 Review of Systems - Other Findings Other Findings: unable to obtain as pt is very sleepy / tired. wakes up and falls back asleep. Exam - Vital Signs Vital Signs: Vital Signs x48h Temp Pulse Resp BP Pulse Ox O2 Flow Rate 02/08/22 01:00 62 21 97/80 91 L 3 02/08/22 00:30 61 16 98/52 L 92 3 02/08/22 00:07 67 28 H 96/52 L 91 L 3 02/08/22 00:00 62 25 H 91/50 L 91 L 3 02/07/22 23:30 63 25 H 93/46 L 914 H 3 02/07/22 23:25 36.8 C 63 26 H 96/55 L 91 L 3 02/07/22 23:00 74 23 93/50 L 91 L 3 02/07/22 22:30 74 21 91/48 L 91 L 3 02/07/22 22:23 84 24 99/50 L 92 3 02/07/22 22:14 73 25 H 101/50 L 92 3 02/07/22 22:00 74 22 125/80 93 3 02/07/22 21:56 74 26 H 102/36 L 92 3 02/07/22 21:31 78 20 3 02/07/22 21:30 78 25 H 88/70 L 93 3 02/07/22 21:28 82 27 H 80/48 L 95 02/07/22 21:12 90 26 H 83/61 L 94 4 02/07/22 20:55 82 27 H 83/40 L 92 3 02/07/22 20:49 79 20 73/42 L 94 3 02/07/22 20:41 88 29 H 2 02/07/22 20:08 36.8 C 91 26 H 69/39 L 89 L - Physical Exam Comments/Other: unable to perform exam d/t cart IT issues. please refer to ED and hospital recruiter Conclusion/Plan - Lab Results Fish Bones: 02/07/22 20:21 02/07/22 20:21 - Other Other Results/Comments: pt with - - acute, hypoxemic resp failure in setting of copd exacerbation in setting of RSV infection on O2 via face mask, CXR without infiltrates further details below - copd exacerbation contributory to above no infiltrates on CXR --> hold of on antibiotics O2, steroids, nebs, supportive mgmt - LESLEY vs LESLEY on CKD stage 3 likely d/t decreased PO intake gentle IVF, check renal sono - low BP contributory to LESLEY gentle IVF f/u labs, replete electrolytes further orders per clinical course
[2022-02-08] MEDS: IPRATROPIUM/ALBUTEROL 3 ML NEB INH SCH ×5 (01:52→20:16)
[2022-02-08] MEDS: BUDESONIDE 0.5 MG/2 ML NEB INH SCH ×3 (01:53→20:16)
[2022-02-08] MEDS: SODIUM CHLORIDE 0.9% 1,000 ML IV SCH ×2 (01:56→15:51)
[2022-02-08] MEDS: SODIUM CHLORIDE FLUSH 0.9% 10 ML SYRINGE IVP SCH ×3 (01:57→18:38)
[2022-02-08] MEDS: BENZONATATE 100 MG CAPSULE PO PRN ×2 (02:39→16:59)
[2022-02-08 05:32] LABS: BASOPHILS % (AUTO) 0.2 %; HGB - HEMOGLOBIN 14.1 g/dL (12.0-16.0); LYMPHOCYTES % (AUTO) 7.3 %; MEAN CORPUSCULAR HEMOGLOBIN 32.2 pg (27.0-31.0); MEAN CORPUSCULAR HGB CONC 33.6 g/dL (32.0-36.0); MEAN CORPUSCULAR VOLUME 95.9 fL (81.0-99.0); MEAN PLATELET VOLUME 10.1 fL (7.9-10.8); NEUTROPHILS % (AUTO) 90.6 %; PLT - PLATELET COUNT 226 10^3/uL (130-450); RED BLOOD COUNT 4.38 10^6/uL (4.20-5.40); RED CELL DISTRIBUTION WIDTH 12.9 % (12.0-15.0); WHITE BLOOD COUNT 12.2 x10^3/uL (4.8-10.8)
[2022-02-08 05:47] LABS: BAND NEUTROPHILS % (MANUAL) 0 %
[2022-02-08 05:54] LABS: ABNORMAL LYMPHS % (MANUAL) 1 %; LYMPHOCYTES # (MANUAL) 0.7 10^3/uL (1.5-3.5); LYMPHOCYTES % (MANUAL) 5 %; MONOCYTES # (MANUAL) 0.5 10^3/uL (0.0-1.0)
[2022-02-08 05:55] LABS: DIFFERENTIAL COMMENT MANUAL DIFFERENTIAL; PLATELET ESTIMATE, MANUAL NORMAL (130-450,000) (NORMAL); PLATELET MORPHOLOGY NORMAL APPEARANCE (NORMAL); RBC MORPHOLOGY (MULTIPLE) NORMAL APPEARANCE (NORMAL); WBC MORPHOLOGY (MULTIPLE) NORMAL APPEARANCE (NORMAL)
[2022-02-08 05:56] LABS: ALBUMIN 3.3 g/dL (3.2-5.5); ALKALINE PHOSPHATASE 91 IU/L (42-121); ALT ALANINE AMINOTRANSFERASE 19 IU/L (10-60); AST ASPARTATE AMINOTRANSFERASE 16 IU/L (10-42); BILIRUBIN,TOTAL 0.5 mg/dL (0.2-1.0); BUN - BLOOD UREA NITROGEN 25 mg/dL (6-20); CALCIUM 8.7 mg/dL (8.5-10.3); CARBON DIOXIDE - CO2 22 mmol/L (21-32); CHLORIDE 104 mmol/L (101-111); CHOL/HDL RATIO 4.3 (<4.4); CHOLESTEROL 146 mg/dL; CREATININE 2.3 mg/dL (0.4-1.0); GFR - MDRD 22 (>89); GLUCOSE 198 mg/dL (70-100); HDL CHOLESTEROL 34 mg/dL; LDL CHOLESTEROL,CALCULATED 102 mg/dL; POTASSIUM 4.1 mmol/L (3.5-5.0); SODIUM 134 mmol/L (135-145); TOTAL PROTEIN 6.6 g/dL (6.7-8.2); TRIGLYCERIDES 50 mg/dL; VLDL CHOLESTEROL 10 mg/dL
[2022-02-08] MEDS: FUROSEMIDE 40 MG TABLET PO SCH ×2 (06:32→15:49)
[2022-02-08 08:35] LABS: ABG PCO2 45 mmHg (34-45); ABG PH 7.32 (7.35-7.45); ABG PO2 63 mmHg (80-100)
[2022-02-08 08:36] LABS: ABG BASE EXCESS -3.8 mmol/L (-2.0-3.0); ABG HCO3 22.4 mmol/L (22.0-26.0); ABG OXYGEN SATURATION 92 % (94-98); ABG TCO2 23.8 MMOL/L (21.0-29.0); ALLEN TEST POSITIVE
[2022-02-08] MEDS ORDERED: lisinopriL 5 MG TABLET PO SCH (09:00)
[2022-02-08] MEDS ORDERED: SPIRONOLACTONE 25 MG TABLET PO SCH (09:00)
[2022-02-08] MEDS: ASCORBIC ACID 500 MG TABLET PO SCH (09:42)
[2022-02-08] MEDS: METOPROLOL SUCCINATE 50 MG TABLET PO SCH ×2 (09:42→21:03)
[2022-02-08] MEDS: APIXABAN 5 MG TABLET PO SCH ×2 (09:42→21:01)
[2022-02-08] MEDS: predniSONE 20 MG TABLET PO SCH (09:42)
[2022-02-08] MEDS: guaiFENesin 600 MG TABLET PO SCH (09:43)
[2022-02-08] MEDS: MULTIVITAMIN TABLET PO SCH (09:43)
[2022-02-08] MEDS: AMIODARONE 200 MG TABLET PO SCH (09:43)
--- NOTE | 2022-02-08 11:24 | Ultrasound Report ---
PROCEDURE: Arterial Visceral Complete INDICATIONS: LESLEY TECHNIQUE: Real time scanning was performed of both kidneys, followed by Color and pulsed Doppler in terrogation of the renal vessels. COMPARISON: CT abdomen pelvis 12/10/2020 FINDINGS: Aortic peak systolic velocity: 111 cm/s. Right side: Garcia-scale imaging: Kidney is 12.2 cm long; renal cortical thickness is 1.2 cm. No hydronephrosis. No nephrolithiasis. Renal cortex is normal in echogenicity. No suspicious solid renal masses. Proximal renal artery peak systolic velocity: 338 cm/s. Mid renal artery peak systolic velocity: 348 cm/s. Distal renal artery peak systolic velocity: 234 cm/s. Renal vein: Patent, without thrombus. Peak renal/aortic ratio (RAR): 3.1. Left side: Garcia-scale imaging: Kidney is 11.2 cm long; renal cortical thickness is 1.6 cm. No hydronephrosis. No nephrolithiasis. Renal cortex is normal in echogenicity. No suspicious solid renal masses. Proximal renal artery peak systolic velocity: 246 cm/s. Mid-renal artery peak systolic velocity: 355 cm/s. Distal renal artery peak systolic velocity: 245 cm/s. Renal vein: Patent, without thrombus. Peak renal/aortic ratio (RAR): 3.2. IMPRESSION: It is noted that there is elevated peak renal artery systolic velocities greater than 300 cm/s, most suggestive of stenosis greater than 60% bilaterally, right greater than left. Reviewed by: Tania Kat MD on 02/08/2022 11:23 AM PDT Approved by: Tania Kat MD on 02/08/2022 11:23 AM PDT Station ID: [id number]
[2022-02-08] MEDS ORDERED: PROCHLORPERAZINE 5 MG TABLET PO PRN (12:57)
[2022-02-08] MEDS: PROCHLORPERAZINE 10 MG/2 ML VIAL IVP PRN (13:22)
[2022-02-08 13:24] LABS: ESTIMATED AVERAGE GLUCOSE 128 mg/dL (70-100); HEMOGLOBIN A1c% 6.1 % (4.27-6.07)
--- NOTE | 2022-02-08 13:31 | PROVIDER PROGRESS NOTE ---
Subjective - Prog Note Date Prog Note Date: 02/08/22 Prog Note Time: 13:28 - Subjective Subjective: She is on droplet precaution. She reported to the emergency room yesterday feeling short of breath with a known history of COPD. She had a cough, body ach es, headache, dizziness and sinus and chest congestion for 2 days. Getting steadily worse over the day of admission. Her grandchild has respiratory syncytial virus. She was evaluated by ER MD and she was then admitted by Telemedicine. In the emergency room her room air saturation was 89%. She was struggling to breathe. Chest x-ray did not have any infiltrate. Respiratory panel was positive for respiratory syncytial virus. Overnight she did receive albuterol, DuoNeb, Pulmicort, ketorolac 15 mg once, dexamethasone once, and has received Lasix 40 p.o. this morning. Lisinopril was held because of low blood pressure. She did receive 2 L wide-open in the ER. And she is on a maintenance 75 cc an hour of normal saline. This morning she continues to be coughing, short of breath. Overnight she required oxy mask, 3 L. This morning she is down to 2 L nasal cannula and is saturating 94%. Still has some congestion. But overall feels improved. She was hypotensive in the emergency room and continues to be hypotensive on Med Surg. Systolic is 91, 101, 102. Her baseline creatinine is 1.0. Yesterday in the ER she was 1.8 and today she is 2.3. She has had almost no urine output. Between midnight and this morning she is at 100 cc out and that is it. Arterial ultrasound was done of her kidneys and she is felt to have right greater than left arterial disease. Nothing approaching more than 60%. She does not have hydronephrosis. No nephrolithiasis. No suspicious renal masses. She has had several echocardiograms. December 2017, January 2019, July 2019, August 2020, and finally February 04, 2021. She has been steadily losing ejection fraction. In 2017 she was 50 to 55%. In 2018 she was 40 to 45%. In July 2019 she was 40% with moderately global hypokinesia. This January 2021 echo shows her overall left ventricular systolic function is globally impaired with an ejection fraction of 35 to 40%. Moderate right ventricular enlargement. Right ventricular systolic function normal. Pacemaker lead seen in the right atrium and right ventricle. Current Medications - Current Medications Current Medications: Active Medications Albuterol (Albuterol Neb 2.5 Mg/3 Ml) 2.5 mg INH RTQ4H PRN PRN Reason: Wheezing Albuterol/Ipratropium (Ipratropium/Albuterol 3 Ml Neb) 3 ml INH Q4HR [facility] Last Admin: 02/08/22 11:42 Dose: 3 ml Amiodarone HCl (Amiodarone 200 Mg Tablet) 100 mg PO DAILY [facility] Last Admin: 02/08/22 09:43 Dose: 100 mg Apixaban (Apixaban 5 Mg Tablet) 5 mg PO BID [facility] Last Admin: 02/08/22 09:42 Dose: 5 mg Ascorbic Acid (Ascorbic Acid 500 Mg Tablet) 500 mg PO DAILY [facility] Last Admin: 02/08/22 09:42 Dose: 500 mg Benzonatate (Benzonatate 100 Mg Capsule) 100 mg PO TID PRN PRN Reason: Cough Last Admin: 02/08/22 02:39 Dose: 100 mg Budesonide (Budesonide 0.5 Mg/2 Ml Neb) 0.5 mg INH RTBID [facility] Last Admin: 02/08/22 07:34 Dose: 0.5 mg Furosemide (Furosemide 40 Mg Tablet) 40 mg PO BIDDIURETIC [facility] Last Admin: 02/08/22 06:32 Dose: 40 mg Guaifenesin (Guaifenesin 600 Mg Tablet) 600 mg PO DAILY [facility] Last Admin: 02/08/22 09:43 Dose: 600 mg Sodium Chloride (Normal Saline 0.9%) 1,000 mls @ 75 mls/hr IV .[id number] [facility] Last Admin: 02/08/22 01:56 Dose: 75 mls/hr Lisinopril (Lisinopril 5 Mg Tablet) 2.5 mg PO DAILY [facility] Metoprolol Succinate (Metoprolol Succinate 50 Mg Tablet) 50 mg PO BID [facility] Last Admin: 02/08/22 09:42 Dose: 50 mg Multivitamins (Multivitamin Tablet) 1 tab PO DAILYWM [facility] Last Admin: 02/08/22 09:43 Dose: 1 tab Prednisone (Prednisone 20 Mg Tablet) 20 mg PO DAILYWM [facility] Last Admin: 02/08/22 09:42 Dose: 20 mg Prochlorperazine Edisylate (Prochlorperazine 10 Mg/2 Ml Vial) 10 mg IVP Q6HR PRN PRN Reason: Nausea / Vomiting Last Admin: 02/08/22 13:22 Dose: 10 mg Prochlorperazine Maleate (Prochlorperazine 5 Mg Tablet) 5 mg PO Q6HR PRN PRN Reason: Nausea / Vomiting Sodium Chloride (Sodium Chloride Flush 0.9% 10 Ml Syringe) 10 ml IVP PRN PRN PRN Reason: NEEDED PER PROVIDER ORDERS Sodium Chloride (Sodium Chloride Flush 0.9% 10 Ml Syringe) 10 ml IVP 0100,0900,1700 ROMAN Last Admin: 02/08/22 12:05 Dose: Not Given Spironolactone (Spironolactone 25 Mg Tablet) 25 mg PO DAILY [facility] Furosemide 40 mg PO BIDDIURETIC 09/07/20 Apixaban [Eliquis] 5 mg PO BID 10/24/20 Amiodarone [Pacerone] 100 mg PO DAILY 02/04/21 Nitroglycerin [Nitrostat] 0.4 mg PO Q5MIN PRN 03/16/21 EPINEPHrine [Epinephrine] 0.3 mg IM PRN PRN 12/11/21 Glipizide [Glipizide ER] 5 mg PO DAILY 12/11/21 Metoprolol Succinate [Toprol Xl] 50 mg PO BID 12/11/21 Spironolactone [Aldactone] 25 mg PO DAILY 12/11/21 lisinopriL [Zestril] 5 mg PO DAILY 12/11/21 Cetirizine [ZyrTEC] 10 mg PO DAILY PRN 02/08/22 Fluticasone [Flonase] 2 sprays CLARISA DAILY 02/08/22 Montelukast [Singulair] 10 mg PO QPM PRN 02/08/22 Objective - Vital Signs/Intake & Output Reviewed Vital Signs: Yes Vital Signs: Vital Signs x48h Temp Pulse Pulse Resp BP Pulse Ox O2 Flow Rate 02/08/22 12:36 84 102/40 L 02/08/22 11:43 74 22 02/08/22 11:04 36.7 C 74 24 91/39 L 94 2 02/08/22 07:35 36.6 C 64 59 L 20 101/38 L 92 3 02/08/22 06:33 60 103/43 L 02/08/22 06:00 36.6 C 64 20 104/46 L 95 3 Intake & Output: Intake & Output 02/05/22 02/06/22 02/07/22 02/08/22 23:59 23:59 23:59 23:59 Intake Total 2009 200 Output Total 100 Balance 2009 100 - Objective General Appearance: positive: Alert, Other (Short statured moderately obese female who looks older than stated age, hoarse voice, congested voice. No rhin orrhea or coryza but is I can hear wheezing even without stethoscope) Eyes Bilateral: positive: PERRL, EOMI Neck: negative: Stiff neck Respiratory: positive: Wheezes. negative: Rales, Rhonchi Cardiovascular: positive: Regular rate & rhythm Abdomen: positive: Non-tender, No organomegaly, Nml bowel sounds, No distention Skin: positive: Warm, Dry Extremities: positive: Full ROM, No pedal edema Neurologic/Psychiatric: positive: Oriented x3, CN's nml (2-12), Motor nml - Lab Results Fish Bones: 02/08/22 05:10 02/08/22 05:10 Other Labs: Lab Results x24hrs 02/08/22 02/08/22 02/08/22 Range/Units 08:29 05:10 05:10 WBC 12.2 H (4.8-10.8) x10^3/uL RBC 4.38 (4.20-5.40) 10^6/uL Hgb 14.1 (12.0-16.0) g/dL Hct 42.0 (37.0-47.0) % MCV 95.9 (81.0-99.0) fL MCH 32.2 H (27.0-31.0) pg MCHC 33.6 (32.0-36.0) g/dL RDW 12.9 (12.0-15.0) % Plt Count 226 (130-450) 10^3/uL MPV 10.1 (7.9-10.8) fL Neut # (Auto) Not Reportable (1.5-6.6) 10^3/uL Lymph # (Auto) Not Reportable (1.5-3.5) 10^3/uL [place] # (Auto) Not Reportable (0.0-1.0) 10^3/uL Eos # (Auto) Not Reportable (0.0-0.7) 10^3/uL Baso # (Auto) Not Reportable (0.0-0.1) 10^3/uL Absolute Nucleated RBC Not Reportable x10^3/uL Total Counted 100 Band Neuts % (Manual) 0 (0 - 10) % Abnorm Lymph % (Manual) 1 % Nucleated RBC % Not Reportable /100WBC Neutrophils # (Manual) 11.0 H (1.5-6.6) 10^3/uL Lymphocytes # (Manual) 0.7 L (1.5-3.5) 10^3/uL Monocytes # (Manual) 0.5 (0.0-1.0) 10^3/uL Eosinophils # (Manual) 0.0 (0-0.7) 10^3/uL Basophils # (Manual) 0.0 (0-0.1) 10^3/uL Differential Comment MANUAL DIFFERENTIAL WBC Morphology NORMAL APPEARANCE (NORMAL) Platelet Estimate NORMAL (130-450,000) (NORMAL) Platelet Morphology NORMAL APPEARANCE (NORMAL) RBC Morph Micro Appear NORMAL APPEARANCE (NORMAL) Bld Gas Analysis Time 0829 Sample Site RIGHT RADIAL ABG pH 7.32 L (7.35-7.45) ABG pCO2 45 (34-45) mmHg ABG pO2 63 L (80-100) mmHg ABG HCO3 22.4 (22.0-26.0) mmol/L ABG Total CO2 23.8 (21.0-29.0) MMOL/L ABG O2 Saturation 92 L (94-98) % ABG Base Excess -3.8 L (-2.0-3.0) mmol/L Elio Test POSITIVE O2 Delivery Device NASAL CANNULA O2 Liters/Min 2.00 LPM Sodium (135-145) mmol/L Potassium (3.5-5.0) mmol/L Chloride (101-111) mmol/L Carbon Dioxide (21-32) mmol/L Anion Gap (6-13) BUN (6-20) mg/dL Creatinine (0.4-1.0) mg/dL Estimated GFR (MDRD) (>89) Glucose (70-100) mg/dL Lactic Acid (0.5-2.2) mmol/L Calcium (8.5-10.3) mg/dL Magnesium (1.7-2.8) mg/dL Total Bilirubin (0.2-1.0) mg/dL AST (10-42) IU/L ALT (10-60) IU/L Alkaline Phosphatase (42-121) IU/L Troponin I High Sens (2.3-14.8) ng/L B-Natriuretic Peptide (5-100) pg/mL Total Protein (6.7-8.2) g/dL Albumin (3.2-5.5) g/dL Globulin (2.1-4.2) g/dL Albumin/Globulin Ratio (1.0-2.2) Triglycerides ( - 149) mg/dL Cholesterol ( - 199) mg/dL LDL Cholesterol, Calc ( - 129) mg/dL VLDL Cholesterol mg/dL HDL Cholesterol (60 - ) mg/dL LDL/HDL Ratio (<4.4) Cholesterol/HDL Ratio (<4.4) Lipase (22-51) U/L TSH 1.49 (0.34-5.60) uIU/mL Nasal Adenovirus (PCR) Nasal B. parapertussis DNA (PCR) Nasal Coronavir 229E PCR Nasal Coronavir HKU1 PCR Nasal Coronavir NL63 PCR Nasal Coronavir OC43 PCR Nasal Enterovir/Rhinovir PCR Nasal Influenza B PCR Nasal Influenza A PCR Nasal Parainfluen 1 PCR Nasal Parainfluen 2 PCR Nasal Parainfluen 3 PCR Nasal Parainfluen 4 PCR Nasal RSV (PCR) Nasal B.pertussis DNA PCR Nasal C.pneumoniae (PCR) Clarisa Human Metapneumo PCR Nasal M.pneumoniae (PCR) Nasal SARS-CoV-2 (PCR) 02/08/22 02/07/22 02/07/22 Range/Units 05:10 22:23 20:30 WBC (4.8-10.8) x10^3/uL RBC (4.20-5.40) 10^6/uL Hgb (12.0-16.0) g/dL Hct (37.0-47.0) % MCV (81.0-99.0) fL MCH (27.0-31.0) pg MCHC (32.0-36.0) g/dL RDW (12.0-15.0) % Plt Count (130-450) 10^3/uL MPV (7.9-10.8) fL Neut # (Auto) (1.5-6.6) 10^3/uL Lymph # (Auto) (1.5-3.5) 10^3/uL [place] # (Auto) (0.0-1.0) 10^3/uL Eos # (Auto) (0.0-0.7) 10^3/uL Baso # (Auto) (0.0-0.1) 10^3/uL Absolute Nucleated RBC x10^3/uL Total Counted Band Neuts % (Manual) (0 - 10) % Abnorm Lymph % (Manual) % Nucleated RBC % /100WBC Neutrophils # (Manual) (1.5-6.6) 10^3/uL Lymphocytes # (Manual) (1.5-3.5) 10^3/uL Monocytes # (Manual) (0.0-1.0) 10^3/uL Eosinophils # (Manual) (0-0.7) 10^3/uL Basophils # (Manual) (0-0.1) 10^3/uL Differential Comment WBC Morphology (NORMAL) Platelet Estimate (NORMAL) Platelet Morphology (NORMAL) RBC Morph Micro Appear (NORMAL) Bld Gas Analysis Time Sample Site ABG pH (7.35-7.45) ABG pCO2 (34-45) mmHg ABG pO2 (80-100) mmHg ABG HCO3 (22.0-26.0) mmol/L ABG Total CO2 (21.0-29.0) MMOL/L ABG O2 Saturation (94-98) % ABG Base Excess (-2.0-3.0) mmol/L Elio Test O2 Delivery Device O2 Liters/Min LPM Sodium 134 L (135-145) mmol/L Potassium 4.1 (3.5-5.0) mmol/L Chloride 104 (101-111) mmol/L Carbon Dioxide 22 (21-32) mmol/L Anion Gap 8.0 (6-13) BUN 25 H (6-20) mg/dL Creatinine 2.3 H (0.4-1.0) mg/dL Estimated GFR (MDRD) 22 L (>89) Glucose 198 H (70-100) mg/dL Lactic Acid (0.5-2.2) mmol/L Calcium 8.7 (8.5-10.3) mg/dL Magnesium 2.0 (1.7-2.8) mg/dL Total Bilirubin 0.5 (0.2-1.0) mg/dL AST 16 (10-42) IU/L ALT 19 (10-60) IU/L Alkaline Phosphatase 91 (42-121) IU/L Troponin I High Sens 8.5 (2.3-14.8) ng/L B-Natriuretic Peptide (5-100) pg/mL Total Protein 6.6 L (6.7-8.2) g/dL Albumin 3.3 (3.2-5.5) g/dL Globulin 3.3 (2.1-4.2) g/dL Albumin/Globulin Ratio 1.0 (1.0-2.2) Triglycerides 50 ( - 149) mg/dL Cholesterol 146 ( - 199) mg/dL LDL Cholesterol, Calc 102 ( - 129) mg/dL VLDL Cholesterol 10 mg/dL HDL Cholesterol 34 L (60 - ) mg/dL LDL/HDL Ratio 3.0 (<4.4) Cholesterol/HDL Ratio 4.3 (<4.4) Lipase (22-51) U/L TSH (0.34-5.60) uIU/mL Nasal Adenovirus (PCR) NOT DETECTED Nasal B. parapertussis DNA (PCR) NOT DETECTED Nasal Coronavir 229E PCR NOT DETECTED Nasal Coronavir HKU1 PCR NOT DETECTED Nasal Coronavir NL63 PCR NOT DETECTED Nasal Coronavir OC43 PCR NOT DETECTED Nasal Enterovir/Rhinovir PCR NOT DETECTED Nasal Influenza B PCR NOT DETECTED Nasal Influenza A PCR NOT DETECTED Nasal Parainfluen 1 PCR NOT DETECTED Nasal Parainfluen 2 PCR NOT DETECTED Nasal Parainfluen 3 PCR NOT DETECTED Nasal Parainfluen 4 PCR NOT DETECTED Nasal RSV (PCR) DETECTED A Nasal B.pertussis DNA PCR NOT DETECTED Nasal C.pneumoniae (PCR) NOT DETECTED Clarisa Human Metapneumo PCR NOT DETECTED Nasal M.pneumoniae (PCR) NOT DETECTED Nasal SARS-CoV-2 (PCR) NOT DETECTED 02/07/22 02/07/22 02/07/22 Range/Units 20:21 20:21 20:21 WBC (4.8-10.8) x10^3/uL RBC (4.20-5.40) 10^6/uL Hgb (12.0-16.0) g/dL Hct (37.0-47.0) % MCV (81.0-99.0) fL MCH (27.0-31.0) pg MCHC (32.0-36.0) g/dL RDW (12.0-15.0) % Plt Count (130-450) 10^3/uL MPV (7.9-10.8) fL Neut # (Auto) (1.5-6.6) 10^3/uL Lymph # (Auto) (1.5-3.5) 10^3/uL [place] # (Auto) (0.0-1.0) 10^3/uL Eos # (Auto) (0.0-0.7) 10^3/uL Baso # (Auto) (0.0-0.1) 10^3/uL Absolute Nucleated RBC x10^3/uL Total Counted Band Neuts % (Manual) (0 - 10) % Abnorm Lymph % (Manual) % Nucleated RBC % /100WBC Neutrophils # (Manual) (1.5-6.6) 10^3/uL Lymphocytes # (Manual) (1.5-3.5) 10^3/uL Monocytes # (Manual) (0.0-1.0) 10^3/uL Eosinophils # (Manual) (0-0.7) 10^3/uL Basophils # (Manual) (0-0.1) 10^3/uL Differential Comment WBC Morphology (NORMAL) Platelet Estimate (NORMAL) Platelet Morphology (NORMAL) RBC Morph Micro Appear (NORMAL) Bld Gas Analysis Time Sample Site ABG pH (7.35-7.45) ABG pCO2 (34-45) mmHg ABG pO2 (80-100) mmHg ABG HCO3 (22.0-26.0) mmol/L ABG Total CO2 (21.0-29.0) MMOL/L ABG O2 Saturation (94-98) % ABG Base Excess (-2.0-3.0) mmol/L Elio Test O2 Delivery Device O2 Liters/Min LPM Sodium (135-145) mmol/L Potassium (3.5-5.0) mmol/L Chloride (101-111) mmol/L Carbon Dioxide (21-32) mmol/L Anion Gap (6-13) BUN (6-20) mg/dL Creatinine (0.4-1.0) mg/dL Estimated GFR (MDRD) (>89) Glucose (70-100) mg/dL Lactic Acid 1.5 (0.5-2.2) mmol/L Calcium (8.5-10.3) mg/dL Magnesium (1.7-2.8) mg/dL Total Bilirubin (0.2-1.0) mg/dL AST (10-42) IU/L ALT (10-60) IU/L Alkaline Phosphatase (42-121) IU/L Troponin I High Sens 9.8 (2.3-14.8) ng/L B-Natriuretic Peptide 42 (5-100) pg/mL Total Protein (6.7-8.2) g/dL Albumin (3.2-5.5) g/dL Globulin (2.1-4.2) g/dL Albumin/Globulin Ratio (1.0-2.2) Triglycerides ( - 149) mg/dL Cholesterol ( - 199) mg/dL LDL Cholesterol, Calc ( - 129) mg/dL VLDL Cholesterol mg/dL HDL Cholesterol (60 - ) mg/dL LDL/HDL Ratio (<4.4) Cholesterol/HDL Ratio (<4.4) Lipase (22-51) U/L TSH (0.34-5.60) uIU/mL Nasal Adenovirus (PCR) Nasal B. parapertussis DNA (PCR) Nasal Coronavir 229E PCR Nasal Coronavir HKU1 PCR Nasal Coronavir NL63 PCR Nasal Coronavir OC43 PCR Nasal Enterovir/Rhinovir PCR Nasal Influenza B PCR Nasal Influenza A PCR Nasal Parainfluen 1 PCR Nasal Parainfluen 2 PCR Nasal Parainfluen 3 PCR Nasal Parainfluen 4 PCR Nasal RSV (PCR) Nasal B.pertussis DNA PCR Nasal C.pneumoniae (PCR) Clarisa Human Metapneumo PCR Nasal M.pneumoniae (PCR) Nasal SARS-CoV-2 (PCR) 02/07/22 02/07/22 Range/Units 20:21 20:21 WBC 13.2 H (4.8-10.8) x10^3/uL RBC 4.92 (4.20-5.40) 10^6/uL Hgb 15.9 (12.0-16.0) g/dL Hct 46.5 (37.0-47.0) % MCV 94.5 (81.0-99.0) fL MCH 32.3 H (27.0-31.0) pg MCHC 34.2 (32.0-36.0) g/dL RDW 12.6 (12.0-15.0) % Plt Count 242 (130-450) 10^3/uL MPV 9.9 (7.9-10.8) fL Neut # (Auto) 10.0 H (1.5-6.6) 10^3/uL Lymph # (Auto) 1.7 (1.5-3.5) 10^3/uL [place] # (Auto) 1.3 H (0.0-1.0) 10^3/uL Eos # (Auto) 0.1 (0.0-0.7) 10^3/uL Baso # (Auto) 0.1 (0.0-0.1) 10^3/uL Absolute Nucleated RBC 0.00 x10^3/uL Total Counted Band Neuts % (Manual) (0 - 10) % Abnorm Lymph % (Manual) % Nucleated RBC % 0.0 /100WBC Neutrophils # (Manual) (1.5-6.6) 10^3/uL Lymphocytes # (Manual) (1.5-3.5) 10^3/uL Monocytes # (Manual) (0.0-1.0) 10^3/uL Eosinophils # (Manual) (0-0.7) 10^3/uL Basophils # (Manual) (0-0.1) 10^3/uL Differential Comment WBC Morphology (NORMAL) Platelet Estimate (NORMAL) Platelet Morphology (NORMAL) RBC Morph Micro Appear (NORMAL) Bld Gas Analysis Time Sample Site ABG pH (7.35-7.45) ABG pCO2 (34-45) mmHg ABG pO2 (80-100) mmHg ABG HCO3 (22.0-26.0) mmol/L ABG Total CO2 (21.0-29.0) MMOL/L ABG O2 Saturation (94-98) % ABG Base Excess (-2.0-3.0) mmol/L Elio Test O2 Delivery Device O2 Liters/Min LPM Sodium 137 (135-145) mmol/L Potassium 4.1 (3.5-5.0) mmol/L Chloride 99 L (101-111) mmol/L Carbon Dioxide 27 (21-32) mmol/L Anion Gap 11.0 (6-13) BUN 18 (6-20) mg/dL Creatinine 1.8 H (0.4-1.0) mg/dL Estimated GFR (MDRD) 29 L (>89) Glucose 170 H (70-100) mg/dL Lactic Acid (0.5-2.2) mmol/L Calcium 9.7 (8.5-10.3) mg/dL Magnesium (1.7-2.8) mg/dL Total Bilirubin 0.7 (0.2-1.0) mg/dL AST 21 (10-42) IU/L ALT 20 (10-60) IU/L Alkaline Phosphatase 101 (42-121) IU/L Troponin I High Sens (2.3-14.8) ng/L B-Natriuretic Peptide (5-100) pg/mL Total Protein 7.3 (6.7-8.2) g/dL Albumin 3.9 (3.2-5.5) g/dL Globulin 3.4 (2.1-4.2) g/dL Albumin/Globulin Ratio 1.1 (1.0-2.2) Triglycerides ( - 149) mg/dL Cholesterol ( - 199) mg/dL LDL Cholesterol, Calc ( - 129) mg/dL VLDL Cholesterol mg/dL HDL Cholesterol (60 - ) mg/dL LDL/HDL Ratio (<4.4) Cholesterol/HDL Ratio (<4.4) Lipase 42 (22-51) U/L TSH (0.34-5.60) uIU/mL Nasal Adenovirus (PCR) Nasal B. parapertussis DNA (PCR) Nasal Coronavir 229E PCR Nasal Coronavir HKU1 PCR Nasal Coronavir NL63 PCR Nasal Coronavir OC43 PCR Nasal Enterovir/Rhinovir PCR Nasal Influenza B PCR Nasal Influenza A PCR Nasal Parainfluen 1 PCR Nasal Parainfluen 2 PCR Nasal Parainfluen 3 PCR Nasal Parainfluen 4 PCR Nasal RSV (PCR) Nasal B.pertussis DNA PCR Nasal C.pneumoniae (PCR) Clarisa Human Metapneumo PCR Nasal M.pneumoniae (PCR) Nasal SARS-CoV-2 (PCR) Assessment/Plan - Problem List (1) Acute respiratory failure with hypoxemia Impression: This lady has documented COPD and now ends up with an RSV infection from her grandchild. Her COPD is compensated on home meds and does not require oxyg enation. At this time we feel that her respiratory failure is acute, and the medical problems of COPD, no urine output will be addressed. (2) COPD exacerbation Impression: Due to RSV infection. Home medications are fluticasone nasal spray, Singulair, Zyrtec, and ProAir HFA inhaler. Here she is on DuoNeb, albuterol, budesonide inhalation, Deltasone orally. She is requiring slightly less oxygen support. We will add Singulair from her home med list. (3) Acute renal failure Impression: This unfortunate female has no urine output. At this time I am unclear as to the cause but we have evaluated her for obstruction, and none is present. She already has a low ejection fraction as baseline, was hypotensive in the emergency room at 69/39. Baseline creatinine of 0.9/1.0 was 1.8 in the e mergency room already. She then received ketorolac, has remained hypotensive and creatinine is now 2.3 with no urine output. My suspicion is prerenal ATN. Will monitor intake and output and avoid giving her florid congestive heart failure. We will continue to monitor BMP and avoid nephrotoxic agents. Ballard to more accurately measure output Qualifiers: Acute renal failure type: unspecified Qualified Code(s): N17.9 - Acute kidney failure, unspecified (4) Diabetes mellitus type 2 in obese Impression: She is on an oral hypoglycemic at home in the form as of [facility] urea. She is not on metformin. Plan: A1c already checked and is 6.1%. Glucose this morning was 198. Start sliding scale insulin before meals (5) Hypotension Impression: It is unclear why this lady has become so hypotensive again. In the emergency room she was 63 systolic and is responded to 2 L of IV normal saline and that her systolic is now in the high 90s/low 100s. She was not felt to be septic. She is not hemorrhaging or anemic. In reviewing the medical record she has presented twice in the last year or so with hypotension. 1 was in the face of diarrhea, and the other was not clear why this lady was hypotensive and her home medications were gradually reduced. But once her blood pressure rebounded she was discharged on her home blood pressure meds. Her most recent admission was in November 2021. Again she was felt to be hypotensive in the face of taking cardiac medications while dehydrated. Plan: Check troponin Check EKG Qualifiers: Hypotension type: unspecified hypotension type Qualified Code(s): I95.9 - Hypotension, unspecified (6) Chronic systolic congestive heart failure Impression: This unfortunate female had V. fib in 2019 requiring close to an hour of CPR and multiple cardioversions. She finally regained pulse and pressure and was transferred to [facility]. Since that time she has had an AICD in place and is also on long-term anticoagulation for this as well as intermittent atrial fibrillation.She is on beta-julius, spironolactone, Lasix, lisinopril at home. She is also on Eliquis. Plan: Avoid over hydrating her Resume anticoagulation Give blood pressure parameters to her spironolactone, beta-julius and lisinopril Troponin already being checked
[2022-02-08] MEDS ORDERED: MONTELUKAST 10 MG TABLET PO PRN (14:38)
[2022-02-08 16:39] LABS: CALCIUM 9.1 mg/dL (8.5-10.3); CREATININE 2.6 mg/dL (0.4-1.0); POTASSIUM 3.7 mmol/L (3.5-5.0)
[2022-02-08] MEDS: INSULIN LISPRO 300 UNIT/3 ML PEN SUBQ SCH ×2 (17:02→21:02)
[2022-02-09] MEDS: SODIUM CHLORIDE FLUSH 0.9% 10 ML SYRINGE IVP SCH ×3 (00:48→16:48)
[2022-02-09] MEDS: BENZONATATE 100 MG CAPSULE PO PRN ×3 (00:48→20:56)
[2022-02-09] MEDS: SODIUM CHLORIDE 0.9% 1,000 ML IV SCH ×2 (04:22→17:04)
[2022-02-09] MEDS: IPRATROPIUM/ALBUTEROL 3 ML NEB INH SCH ×6 (04:30→19:01)
[2022-02-09 05:03] LABS: BASOPHILS % (AUTO) 0.2 %; HCT - HEMATOCRIT 41.6 % (37.0-47.0); HGB - HEMOGLOBIN 14.1 g/dL (12.0-16.0); LYMPHOCYTES % (AUTO) 6.9 %; MEAN CORPUSCULAR HEMOGLOBIN 32.4 pg (27.0-31.0); MEAN CORPUSCULAR HGB CONC 33.9 g/dL (32.0-36.0); MEAN CORPUSCULAR VOLUME 95.6 fL (81.0-99.0); MEAN PLATELET VOLUME 10.2 fL (7.9-10.8); MONOCYTES % (AUTO) 5.3 %; NEUTROPHILS % (AUTO) 61.5 %; PLT - PLATELET COUNT 222 10^3/uL (130-450); RED BLOOD COUNT 4.35 10^6/uL (4.20-5.40); RED CELL DISTRIBUTION WIDTH 13.1 % (12.0-15.0)
[2022-02-09 05:07] LABS: ABNORMAL LYMPHS % (MANUAL) 0 %; BAND NEUTROPHILS % (MANUAL) 0 %
[2022-02-09 05:10] LABS: CALCIUM 9.2 mg/dL (8.5-10.3); CREATININE 1.7 mg/dL (0.4-1.0); POTASSIUM 4.4 mmol/L (3.5-5.0)
[2022-02-09 05:19] LABS: DIFFERENTIAL COMMENT MANUAL DIFFERENTIAL; LYMPHOCYTES # (MANUAL) 1.9 10^3/uL (1.5-3.5); LYMPHOCYTES % (MANUAL) 9 %; MONOCYTES # (MANUAL) 0.8 10^3/uL (0.0-1.0); NEUTROPHILS # (MANUAL) 18.3 10^3/uL (1.5-6.6); PLATELET ESTIMATE, MANUAL NORMAL (130-450,000) (NORMAL); PLATELET MORPHOLOGY NORMAL APPEARANCE (NORMAL); RBC MORPHOLOGY (MULTIPLE) NORMAL APPEARANCE (NORMAL); WBC MORPHOLOGY (MULTIPLE) NORMAL APPEARANCE (NORMAL)
[2022-02-09] MEDS: FUROSEMIDE 40 MG TABLET PO SCH ×2 (06:00→14:16)
[2022-02-09] MEDS: BUDESONIDE 0.5 MG/2 ML NEB INH SCH ×2 (07:45→19:01)
[2022-02-09] MEDS: SPIRONOLACTONE 25 MG TABLET PO SCH (08:05)
[2022-02-09] MEDS: MULTIVITAMIN TABLET PO SCH (08:05)
[2022-02-09] MEDS: APIXABAN 5 MG TABLET PO SCH ×2 (08:05→20:56)
[2022-02-09] MEDS: predniSONE 20 MG TABLET PO SCH (08:06)
[2022-02-09] MEDS: guaiFENesin 600 MG TABLET PO SCH (08:06)
[2022-02-09] MEDS: AMIODARONE 200 MG TABLET PO SCH (08:06)
[2022-02-09] MEDS: lisinopriL 5 MG TABLET PO SCH (08:07)
[2022-02-09] MEDS: METOPROLOL SUCCINATE 50 MG TABLET PO SCH ×2 (08:08→20:56)
[2022-02-09] MEDS: INSULIN LISPRO 300 UNIT/3 ML PEN SUBQ SCH ×4 (08:08→20:57)
[2022-02-09] MEDS: FLUTICASONE NASAL SPRAY NAS SCH (08:09)
[2022-02-09] MEDS: ASCORBIC ACID 500 MG TABLET PO SCH (08:10)
[2022-02-09] MEDS: methocarbamoL 500 MG TABLET PO PRN ×2 (14:16→20:56)
--- NOTE | 2022-02-09 18:41 | PROVIDER PROGRESS NOTE ---
Subjective - Prog Note Date Prog Note Date: 02/09/22 Prog Note Time: 18:39 - Subjective Subjective: Tired, mild cough, mild shortness of breath but no change in status. Blood pressures,. Urine output has come up. Creatinine is improving. Current Medications - Current Medications Current Medications: Active Medications Albuterol (Albuterol Neb 2.5 Mg/3 Ml) 2.5 mg INH RTQ4H PRN PRN Reason: Wheezing Albuterol/Ipratropium (Ipratropium/Albuterol 3 Ml Neb) 3 ml INH RTQID ROMAN Last Admin: 02/09/22 15:11 Dose: 3 ml Amiodarone HCl (Amiodarone 200 Mg Tablet) 100 mg PO DAILY [facility] [place] Last Admin: 02/09/22 08:06 Dose: 100 mg Apixaban (Apixaban 5 Mg Tablet) 5 mg PO BID [facility] [place] Last Admin: 02/09/22 08:05 Dose: 5 mg Ascorbic Acid (Ascorbic Acid 500 Mg Tablet) 500 mg PO DAILY [facility] [place] Last Admin: 02/09/22 08:10 Dose: 500 mg Benzonatate (Benzonatate 100 Mg Capsule) 100 mg PO TID PRN PRN Reason: Cough Last Admin: 02/09/22 14:17 Dose: 100 mg Budesonide (Budesonide 0.5 Mg/2 Ml Neb) 0.5 mg INH RTBID ROMAN Last Admin: 02/09/22 07:45 Dose: 0.5 mg Fluticasone Propionate (Fluticasone Nasal [place]) 2 sprays CLARISA DAILY [facility] [place] Last Admin: 02/09/22 08:09 Dose: 1 spr Furosemide (Furosemide 40 Mg Tablet) 40 mg PO BIDDIURETIC [facility] [place] Last Admin: 02/09/22 14:16 Dose: 40 mg Guaifenesin (Guaifenesin 600 Mg Tablet) 600 mg PO DAILY [facility] [place] Last Admin: 02/09/22 08:06 Dose: 600 mg Sodium Chloride (Normal Saline 0.9%) 1,000 mls @ 75 mls/hr IV .[id number] [facility] [place] Last Admin: 02/09/22 17:04 Dose: 75 mls/hr Insulin Glargine (Insulin Glargine 300 Unit/3 Ml Pen) 5 unit SUBQ QPM [facility] [place] Insulin Human Lispro (Insulin Lispro 300 Unit/3 Ml Pen) 1 - 9 unit SUBQ 0800, 1200,1700,2100 [facility] [place]; Protocol Last Admin: 02/09/22 17:03 Dose: 5 unit Lisinopril (Lisinopril 5 Mg Tablet) 2.5 mg PO DAILY [facility] [place] Last Admin: 02/09/22 08:07 Dose: 2.5 mg Methocarbamol (Methocarbamol 500 Mg Tablet) 500 mg PO Q6HR PRN PRN Reason: Spasms Last Admin: 02/09/22 14:16 Dose: 500 mg Metoprolol Succinate (Metoprolol Succinate 50 Mg Tablet) 50 mg PO BID [facility] [place] Last Admin: 02/09/22 08:08 Dose: 50 mg Montelukast Sodium (Montelukast 10 Mg Tablet) 10 mg PO QPM PRN PRN Reason: Allergy Symptoms Multivitamins (Multivitamin Tablet) 1 tab PO DAILYWM [facility] [place] Last Admin: 02/09/22 08:05 Dose: 1 tab Prednisone (Prednisone 20 Mg Tablet) 20 mg PO DAILYWM [facility] [place] Last Admin: 02/09/22 08:06 Dose: 20 mg Prochlorperazine Edisylate (Prochlorperazine 10 Mg/2 Ml Vial) 10 mg IVP Q6HR PRN PRN Reason: Nausea / Vomiting Last Admin: 02/08/22 13:22 Dose: 10 mg Prochlorperazine Maleate (Prochlorperazine 5 Mg Tablet) 5 mg PO Q6HR PRN PRN Reason: Nausea / Vomiting Sodium Chloride (Sodium Chloride Flush 0.9% 10 Ml Syringe) 10 ml IVP PRN PRN PRN Reason: NEEDED PER PROVIDER ORDERS Sodium Chloride (Sodium Chloride Flush 0.9% 10 Ml Syringe) 10 ml IVP 0100,0900,1700 [facility] [place] Last Admin: 02/09/22 16:48 Dose: Not Given Spironolactone (Spironolactone 25 Mg Tablet) 25 mg PO DAILY [facility] [place] Last Admin: 02/09/22 08:05 Dose: 25 mg Furosemide 40 mg PO BIDDIURETIC 09/07/20 Apixaban [Eliquis] 5 mg PO BID 10/24/20 Amiodarone [Pacerone] 100 mg PO DAILY 02/04/21 Nitroglycerin [Nitrostat] 0.4 mg PO Q5MIN PRN 03/16/21 EPINEPHrine [Epinephrine] 0.3 mg IM PRN PRN 12/11/21 Glipizide [Glipizide ER] 5 mg PO DAILY 12/11/21 Metoprolol Succinate [Toprol Xl] 50 mg PO BID 12/11/21 Spironolactone [Aldactone] 25 mg PO DAILY 12/11/21 lisinopriL [Zestril] 5 mg PO DAILY 12/11/21 Cetirizine [ZyrTEC] 10 mg PO DAILY PRN 02/08/22 Fluticasone [Flonase] 2 sprays CLARISA DAILY 02/08/22 Montelukast [Singulair] 10 mg PO QPM PRN 02/08/22 Objective - Vital Signs/Intake & Output Reviewed Vital Signs: Yes Vital Signs: Vital Signs x48h Temp Pulse Pulse Pulse Pulse Resp BP 02/09/22 16:03 36.7 C 60 20 02/09/22 15:14 70 24 02/09/22 11:37 86 22 02/09/22 11:20 36.6 C 67 21 02/09/22 11:00 60 59 L 122/49 L BP BP Pulse Ox Pulse Ox Pulse Ox O2 Flow Rate 02/09/22 16:03 108/39 L 95 2 02/09/22 15:14 02/09/22 11:37 02/09/22 11:20 122/49 L 96 2 02/09/22 11:00 114/42 L 95 95 Intake & Output: Intake & Output 02/06/22 02/07/22 02/08/22 02/09/22 23:59 23:59 23:59 23:59 Intake Total 2009 1590 3351.25 Output Total 1050 4925 Balance 2009 540 -2043.75 - Objective General Appearance: positive: Alert, Mild distress, Other (Easily fatigued and short of breath with simple movement of going from supine to sitting. Able to get up and walk to her chair with a gait belt. Tearful.) Eyes Bilateral: positive: PERRL ENT: positive: Pharynx nml Neck: positive: No JVD Respiratory: positive: No respiratory distress, Other. negative: Wheezes, Rales, Rhonchi Cardiovascular: positive: Regular rate & rhythm Abdomen: positive: Non-tender, No organomegaly, Nml bowel sounds, No distention Skin: positive: Warm, Dry Extremities: positive: No pedal edema Neurologic/Psychiatric: positive: Oriented x3, CN's nml (2-12), Motor nml, Sensation nml, Other (Forgetful, vague at times, tearful at times) - Lab Results Fish Bones: 02/09/22 04:37 02/09/22 04:37 Other Labs: Lab Results x24hrs 02/09/22 02/09/22 02/09/22 Range/Units 16:54 11:23 07:29 WBC (4.8-10.8) x10^3/uL RBC (4.20-5.40) 10^6/uL Hgb (12.0-16.0) g/dL Hct (37.0-47.0) % MCV (81.0-99.0) fL MCH (27.0-31.0) pg MCHC (32.0-36.0) g/dL RDW (12.0-15.0) % Plt Count (130-450) 10^3/uL MPV (7.9-10.8) fL Neut # (Auto) Lymph # (Auto) [place] # (Auto) Eos # (Auto) Baso # (Auto) Absolute Nucleated RBC Total Counted Band Neuts % (Manual) (0 - 10) % Abnorm Lymph % (Manual) % Nucleated RBC % Neutrophils # (Manual) (1.5-6.6) 10^3/uL Lymphocytes # (Manual) (1.5-3.5) 10^3/uL Monocytes # (Manual) (0.0-1.0) 10^3/uL Eosinophils # (Manual) (0-0.7) 10^3/uL Basophils # (Manual) (0-0.1) 10^3/uL Differential Comment WBC Morphology (NORMAL) Platelet Estimate (NORMAL) Platelet Morphology (NORMAL) RBC Morph Micro Appear (NORMAL) Sodium (135-145) mmol/L Potassium (3.5-5.0) mmol/L Chloride (101-111) mmol/L Carbon Dioxide (21-32) mmol/L Anion Gap (6-13) BUN (6-20) mg/dL Creatinine (0.4-1.0) mg/dL Estimated GFR (MDRD) (>89) Glucose (70-100) mg/dL POC Whole Bld Glucose 263 H 166 H 149 H (70 - 100) mg/dL Calcium (8.5-10.3) mg/dL 02/09/22 02/09/22 02/08/22 Range/Units 04:37 04:37 20:57 WBC 21.0 H (4.8-10.8) x10^3/uL RBC 4.35 (4.20-5.40) 10^6/uL Hgb 14.1 (12.0-16.0) g/dL Hct 41.6 (37.0-47.0) % MCV 95.6 (81.0-99.0) fL MCH 32.4 H (27.0-31.0) pg MCHC 33.9 (32.0-36.0) g/dL RDW 13.1 (12.0-15.0) % Plt Count 222 (130-450) 10^3/uL MPV 10.2 (7.9-10.8) fL Neut # (Auto) Not Reportable Lymph # (Auto) Not Reportable [place] # (Auto) Not Reportable Eos # (Auto) Not Reportable Baso # (Auto) Not Reportable Absolute Nucleated RBC Not Reportable Total Counted 100 Band Neuts % (Manual) 0 (0 - 10) % Abnorm Lymph % (Manual) 0 % Nucleated RBC % Not Reportable Neutrophils # (Manual) 18.3 H (1.5-6.6) 10^3/uL Lymphocytes # (Manual) 1.9 (1.5-3.5) 10^3/uL Monocytes # (Manual) 0.8 (0.0-1.0) 10^3/uL Eosinophils # (Manual) 0.0 (0-0.7) 10^3/uL Basophils # (Manual) 0.0 (0-0.1) 10^3/uL Differential Comment MANUAL DIFFERENTIAL WBC Morphology NORMAL APPEARANCE (NORMAL) Platelet Estimate NORMAL (130-450,000) (NORMAL) Platelet Morphology NORMAL APPEARANCE (NORMAL) RBC Morph Micro Appear NORMAL APPEARANCE (NORMAL) Sodium 137 (135-145) mmol/L Potassium 4.4 (3.5-5.0) mmol/L Chloride 105 (101-111) mmol/L Carbon Dioxide 22 (21-32) mmol/L Anion Gap 10.0 (6-13) BUN 35 H (6-20) mg/dL Creatinine 1.7 H (0.4-1.0) mg/dL Estimated GFR (MDRD) 31 L (>89) Glucose 168 H (70-100) mg/dL POC Whole Bld Glucose 269 H (70 - 100) mg/dL Calcium 9.2 (8.5-10.3) mg/dL Assessment/Plan - Problem List (1) Acute respiratory failure with hypoxemia Impression: This lady has documented COPD and now ends up with an RSV infection from her grandchild. Her COPD is compensated on home meds and It did require oxygenation in the emergency room. Between yesterday and today she has been at a steady 2 L/min. No change in oxygen requirement. At this time we feel that her respiratory failure is acute, and the medical problems of COPD, no urine output will continue to be addressed.Case management states to keep her observation status because of her insurance. (2) COPD exacerbation Impression: Due to RSV infection. Home medications are fluticasone nasal spray, Singulair, Zyrtec, and ProAir HFA inhaler. Here she is on DuoNeb, albuterol, budesonide inhalation, Deltasone orally.Singulair added last night. She is requiring Stable, same oxygen support. (3) Acute renal failure improving, due to ATN from hypotension Impression: This unfortunate female has no urine output. At this time I am unclear as to the cause but we have evaluated her for obstruction, and none is present. She already has a low ejection fraction as baseline, was hypotensive in the emergency room at 69/39. Baseline creatinine of 0.9/1.0 was 1.8 in the emergency room already. She then received ketorolac, has remained hypotensive and creatinine is now 2.3 with no urine output. My suspicion is prerenal ATN. Overnight she received 1590 cc. Today she received 3350 cc. Even with that she is -1573 cc for balance today. Blood pressure has come up. She is 122, 114, 108 systolic. Urine output was 4925. And creatinine has come down to 1.7. continue to monitor Qualifiers: Acute renal failure type: unspecified Qualified Code(s): N17.9 - Acute kidney failure, unspecified (4) Diabetes mellitus type 2 in obese Impression: She is on an oral hypoglycemic at home in the form as of [facility] urea. She is not on metformin. Since yesterday she is required anywhere between 1 units to 5 units before meals. On a regular basis. Glucose yesterday was 193, 269, and this morning she is 149, 166 and 263. Plan: Add Lantus 5 units at night to her sliding scale (5) Hypotension Impression: It is unclear why this lady has become so hypotensive again. In the emergency room she was 63 systolic and is responded to 2 L of IV normal saline and that her systolic is now in the high 90s/low 100s. She was not felt to be septic. She is not hemorrhaging or anemic. In reviewing the medical record she has presented twice in the last year or so with hypotension. 1 was in the face of diarrhea, and the other was not clear why this lady was hypotensive and her home medications were gradually reduced. But once her blood pressure rebounded she was discharged on her home blood pressure meds. Her most recent admission was in November 2021. Again she was felt to be hypotensive in the face of taking cardiac medications while dehydrated. Troponins yesterday do not indicate NH. EKG is without change. Plan: Consider not resuming blood pressure medicines at home and following her carefully. Qualifiers: Hypotension type: unspecified hypotension type Qualified Code(s): I95.9 - Hypotension, unspecified (6) Chronic systolic congestive heart failure Impression: This unfortunate female had V. fib in 2019 requiring close to an hour of CPR and multiple cardioversions. She finally regained pulse and pressure and was transferred to [facility]. Since that time she has had an AICD in place and is also on long-term anticoagulation for this as well as intermittent atrial fibrillation.She is on beta-julius, spironolactone, Lasix, lisinopril at home. She is also on Eliquis. Plan: Avoid over hydrating her Resume anticoagulation Give blood pressure parameters to her spironolactone, beta-julius and lisinopril (5) Hypotension Qualifiers: Qualified Code(s): I95.9 - Hypotension, unspecified
[2022-02-09] MEDS: INSULIN GLARGINE-YFGN 300 UNIT/3 ML PEN SUBQ SCH (20:58)
[2022-02-09] MEDS: ALBUTEROL NEB 2.5 MG/3 ML INH PRN (23:28)
[2022-02-10] MEDS: SODIUM CHLORIDE FLUSH 0.9% 10 ML SYRINGE IVP SCH ×3 (00:52→17:11)
[2022-02-10] MEDS: methocarbamoL 500 MG TABLET PO PRN ×2 (03:34→20:29)
[2022-02-10] MEDS: BENZONATATE 100 MG CAPSULE PO PRN ×2 (03:36→20:29)
[2022-02-10 05:14] LABS: BASOPHILS % (AUTO) 0.2 %; EOSINOPHILS % (AUTO) 0.1 %; HCT - HEMATOCRIT 41.7 % (37.0-47.0); LYMPHOCYTES # (AUTO) 2.4 10^3/uL (1.5-3.5); LYMPHOCYTES % (AUTO) 13.2 %; MEAN CORPUSCULAR HEMOGLOBIN 32.3 pg (27.0-31.0); MEAN CORPUSCULAR HGB CONC 33.6 g/dL (32.0-36.0); MEAN CORPUSCULAR VOLUME 96.3 fL (81.0-99.0); MONOCYTES # (AUTO) 1.4 10^3/uL (0.0-1.0); MONOCYTES % (AUTO) 7.9 %; NEUTROPHILS # (AUTO) 13.8 10^3/uL (1.5-6.6); NEUTROPHILS % (AUTO) 77.7 %; PLT - PLATELET COUNT 244 10^3/uL (130-450); RED BLOOD COUNT 4.33 10^6/uL (4.20-5.40); RED CELL DISTRIBUTION WIDTH 13.2 % (12.0-15.0); WHITE BLOOD COUNT 17.7 x10^3/uL (4.8-10.8)
[2022-02-10 05:26] LABS: CALCIUM 9.4 mg/dL (8.5-10.3); CREATININE 1.2 mg/dL (0.4-1.0); POTASSIUM 3.8 mmol/L (3.5-5.0)
[2022-02-10] MEDS: IPRATROPIUM/ALBUTEROL 3 ML NEB INH SCH ×4 (06:10→17:43)
[2022-02-10] MEDS: BUDESONIDE 0.5 MG/2 ML NEB INH SCH ×2 (06:10→17:43)
[2022-02-10] MEDS: SODIUM CHLORIDE 0.9% 1,000 ML IV SCH ×2 (06:35→23:19)
[2022-02-10] MEDS: FUROSEMIDE 40 MG TABLET PO SCH (06:36)
[2022-02-10] MEDS ORDERED: SODIUM CHLORIDE 0.9% 500 ML IV ONE (07:54)
[2022-02-10] MEDS: INSULIN LISPRO 300 UNIT/3 ML PEN SUBQ SCH ×4 (08:16→20:25)
[2022-02-10] MEDS: ASCORBIC ACID 500 MG TABLET PO SCH (08:19)
[2022-02-10] MEDS: AMIODARONE 200 MG TABLET PO SCH (08:19)
[2022-02-10] MEDS: guaiFENesin 600 MG TABLET PO SCH (08:20)
[2022-02-10] MEDS: APIXABAN 5 MG TABLET PO SCH ×2 (08:20→20:24)
[2022-02-10] MEDS: MULTIVITAMIN TABLET PO SCH (08:20)
[2022-02-10] MEDS: SPIRONOLACTONE 25 MG TABLET PO SCH (08:20)
[2022-02-10] MEDS: lisinopriL 5 MG TABLET PO SCH (08:20)
[2022-02-10] MEDS: predniSONE 20 MG TABLET PO SCH (08:20)
[2022-02-10] MEDS: METOPROLOL SUCCINATE 50 MG TABLET PO SCH ×2 (08:20→20:23)
[2022-02-10] MEDS: FLUTICASONE NASAL SPRAY NAS SCH (08:22)
--- NOTE | 2022-02-10 16:56 | PROVIDER PROGRESS NOTE ---
Subjective - Prog Note Date Prog Note Date: 02/10/22 Prog Note Time: 16:54 - Subjective Subjective: She reports that she is a little bit better but not by much. She reluctantly got out of bed with physical therapy and the nurses today and sat in the chair. She states that she just cannot get comfortable because her tailbone hurts so much. So whether she is sitting in a chair or laying in bed she is just not comfortable. She also finds that orthopnea is still severe. She could not sleep last night at all because even laying back more than 45 degrees caused her to be short of breath. She still has a dry cough. She is still wheezing and is audible just standing in the doorway without listing with a stethoscope. The cough is so severe that she sometimes feels like her ribs are retracting and spasming. It is giving her paraspinal back spasm. She is asking for a muscle relaxant. Current Medications - Current Medications Current Medications: Active Medications Albuterol (Albuterol Neb 2.5 Mg/3 Ml) 2.5 mg INH RTQ4H PRN PRN Reason: Wheezing Last Admin: 02/09/22 23:28 Dose: 2.5 mg Albuterol/Ipratropium (Ipratropium/Albuterol 3 Ml Neb) 3 ml INH RTQID [facility] Last Admin: 02/10/22 14:42 Dose: 3 ml Amiodarone HCl (Amiodarone 200 Mg Tablet) 100 mg PO DAILY [facility] Last Admin: 02/10/22 08:19 Dose: 100 mg Apixaban (Apixaban 5 Mg Tablet) 5 mg PO BID [facility] Last Admin: 02/10/22 08:20 Dose: 5 mg Ascorbic Acid (Ascorbic Acid 500 Mg Tablet) 500 mg PO DAILY [facility] Last Admin: 02/10/22 08:19 Dose: 500 mg Benzonatate (Benzonatate 100 Mg Capsule) 100 mg PO TID PRN PRN Reason: Cough Last Admin: 02/10/22 03:36 Dose: 100 mg Budesonide (Budesonide 0.5 Mg/2 Ml Neb) 0.5 mg INH RTBID [facility] Last Admin: 02/10/22 06:10 Dose: 0.5 mg Fluticasone Propionate (Fluticasone Nasal [place]) 2 sprays CLARISA DAILY [facility] Last Admin: 02/10/22 08:22 Dose: 2 spr Guaifenesin (Guaifenesin 600 Mg Tablet) 600 mg PO DAILY [facility] Last Admin: 02/10/22 08:20 Dose: 600 mg Sodium Chloride (Normal Saline 0.9%) 1,000 mls @ 75 mls/hr IV .[id number] [facility] Last Admin: 02/10/22 06:35 Dose: 75 mls/hr Insulin Glargine-yfgn (Insulin Glargine-Yfgn 300 Unit/3 Ml Pen) 5 unit SUBQ QPM [facility] Last Admin: 02/09/22 20:58 Dose: 5 unit Insulin Human Lispro (Insulin Lispro 300 Unit/3 Ml Pen) 1 - 9 unit SUBQ 0800,1200,1700,2100 [facility]; Protocol Last Admin: 02/10/22 11:40 Dose: Not Given Lisinopril (Lisinopril 5 Mg Tablet) 2.5 mg PO DAILY [facility] Last Admin: 02/10/22 08:20 Dose: 2.5 mg Methocarbamol (Methocarbamol 500 Mg Tablet) 500 mg PO Q6HR PRN PRN Reason: Spasms Last Admin: 02/10/22 03:34 Dose: 500 mg Metoprolol Succinate (Metoprolol Succinate 50 Mg Tablet) 50 mg PO BID [facility] Last Admin: 02/10/22 08:20 Dose: 50 mg Montelukast Sodium (Montelukast 10 Mg Tablet) 10 mg PO QPM PRN PRN Reason: Allergy Symptoms Multivitamins (Multivitamin Tablet) 1 tab PO DAILYWM [facility] Last Admin: 02/10/22 08:20 Dose: 1 tab Prednisone (Prednisone 20 Mg Tablet) 20 mg PO DAILYWM [facility] Last Admin: 02/10/22 08:20 Dose: 20 mg Prochlorperazine Edisylate (Prochlorperazine 10 Mg/2 Ml Vial) 10 mg IVP Q6HR PRN PRN Reason: Nausea / Vomiting Last Admin: 02/08/22 13:22 Dose: 10 mg Prochlorperazine Maleate (Prochlorperazine 5 Mg Tablet) 5 mg PO Q6HR PRN PRN Reason: Nausea / Vomiting Sodium Chloride (Sodium Chloride Flush 0.9% 10 Ml Syringe) 10 ml IVP PRN PRN PRN Reason: NEEDED PER PROVIDER ORDERS Sodium Chloride (Sodium Chloride Flush 0.9% 10 Ml Syringe) 10 ml IVP 0100,0900,1700 [facility] Last Admin: 02/10/22 08:21 Dose: 10 ml Spironolactone (Spironolactone 25 Mg Tablet) 25 mg PO DAILY [facility] Last Admin: 02/10/22 08:20 Dose: 25 mg Furosemide 40 mg PO BIDDIURETIC 09/07/20 Apixaban [Eliquis] 5 mg PO BID 10/24/20 Amiodarone [Pacerone] 100 mg PO DAILY 02/04/21 Nitroglycerin [Nitrostat] 0.4 mg PO Q5MIN PRN 03/16/21 EPINEPHrine [Epinephrine] 0.3 mg IM PRN PRN 12/11/21 Glipizide [Glipizide ER] 5 mg PO DAILY 12/11/21 Metoprolol Succinate [Toprol Xl] 50 mg PO BID 12/11/21 Spironolactone [Aldactone] 25 mg PO DAILY 12/11/21 lisinopriL [Zestril] 5 mg PO DAILY 12/11/21 Cetirizine [ZyrTEC] 10 mg PO DAILY PRN 02/08/22 Fluticasone [Flonase] 2 sprays CLARISA DAILY 02/08/22 Montelukast [Singulair] 10 mg PO QPM PRN 02/08/22 Objective - Vital Signs/Intake & Output Reviewed Vital Signs: Yes Vital Signs: Vital Signs x48h Temp Pulse Pulse Resp BP Pulse Ox O2 Flow Rate 02/10/22 16:03 36.9 C 60 20 98/46 L 93 2 02/10/22 14:43 79 20 2 02/10/22 11:58 36.9 C 61 21 102/43 L 92 2 02/10/22 11:19 20 L 21 2 02/10/22 09:03 2 Intake & Output: Intake & Output 02/07/22 02/08/22 02/09/22 02/10/22 23:59 23:59 23:59 23:59 Intake Total 2009 1590 4151.25 2310 Output Total 1050 1300 4378 Balance 2009 540 -4378.75 -215 - Objective General Appearance: positive: Alert, Moderate distress, Other (Short statured white female who looks older than stated age. Voice is hoarse. Wheezing at rest.) Eyes Bilateral: positive: PERRL, EOMI Neck: positive: No JVD. negative: Stiff neck Respiratory: positive: No respiratory distress, Wheezes, Rhonchi Cardiovascular: positive: Regular rate & rhythm Abdomen: positive: Non-tender, No organomegaly, Nml bowel sounds, No distention, Other (Protuberant obese pannus, Urine output has picked up. I was concerned because of oliguria. On the she put out 1050 cc. Yesterday she put out 6300 cc. As of this notes dictation she is put out 2525 cc.) Skin: positive: Warm, Dry Extremities: positive: Full ROM, Pedal edema Neurologic/Psychiatric: positive: Oriented x3, CN's nml (2-12), Motor nml - Lab Results Fish Bones: 02/10/22 04:51 02/10/22 04:51 Other Labs: Lab Results x24hrs 02/10/22 02/10/22 02/10/22 Range/Units 16:35 11:30 07:13 WBC (4.8-10.8) x10^3/uL RBC (4.20-5.40) 10^6/uL Hgb (12.0-16.0) g/dL Hct (37.0-47.0) % MCV (81.0-99.0) fL MCH (27.0-31.0) pg MCHC (32.0-36.0) g/dL RDW (12.0-15.0) % Plt Count (130-450) 10^3/uL MPV (7.9-10.8) fL Neut # (Auto) (1.5-6.6) 10^3/uL Lymph # (Auto) (1.5-3.5) 10^3/uL [place] # (Auto) (0.0-1.0) 10^3/uL Eos # (Auto) (0.0-0.7) 10^3/uL Baso # (Auto) (0.0-0.1) 10^3/uL Absolute Nucleated RBC x10^3/uL Nucleated RBC % /100WBC Sodium (135-145) mmol/L Potassium (3.5-5.0) mmol/L Chloride (101-111) mmol/L Carbon Dioxide (21-32) mmol/L Anion Gap (6-13) BUN (6-20) mg/dL Creatinine (0.4-1.0) mg/dL Estimated GFR (MDRD) (>89) Glucose (70-100) mg/dL POC Whole Bld Glucose 203 H 140 H 91 (70 - 100) mg/dL Calcium (8.5-10.3) mg/dL 02/10/22 02/10/22 02/09/22 Range/Units 04:51 04:51 20:41 WBC 17.7 H (4.8-10.8) x10^3/uL RBC 4.33 (4.20-5.40) 10^6/uL Hgb 14.0 (12.0-16.0) g/dL Hct 41.7 (37.0-47.0) % MCV 96.3 (81.0-99.0) fL MCH 32.3 H (27.0-31.0) pg MCHC 33.6 (32.0-36.0) g/dL RDW 13.2 (12.0-15.0) % Plt Count 244 (130-450) 10^3/uL MPV 10.0 (7.9-10.8) fL Neut # (Auto) 13.8 H (1.5-6.6) 10^3/uL Lymph # (Auto) 2.4 (1.5-3.5) 10^3/uL [place] # (Auto) 1.4 H (0.0-1.0) 10^3/uL Eos # (Auto) 0.0 (0.0-0.7) 10^3/uL Baso # (Auto) 0.0 (0.0-0.1) 10^3/uL Absolute Nucleated RBC 0.00 x10^3/uL Nucleated RBC % 0.0 /100WBC Sodium 139 (135-145) mmol/L Potassium 3.8 (3.5-5.0) mmol/L Chloride 104 (101-111) mmol/L Carbon Dioxide 28 (21-32) mmol/L Anion Gap 7.0 (6-13) BUN 33 H (6-20) mg/dL Creatinine 1.2 H (0.4-1.0) mg/dL Estimated GFR (MDRD) 46 L (>89) Glucose 126 H (70-100) mg/dL POC Whole Bld Glucose 208 H (70 - 100) mg/dL Calcium 9.4 (8.5-10.3) mg/dL 02/09/22 Range/Units 16:54 WBC (4.8-10.8) x10^3/uL RBC (4.20-5.40) 10^6/uL Hgb (12.0-16.0) g/dL Hct (37.0-47.0) % MCV (81.0-99.0) fL MCH (27.0-31.0) pg MCHC (32.0-36.0) g/dL RDW (12.0-15.0) % Plt Count (130-450) 10^3/uL MPV (7.9-10.8) fL Neut # (Auto) (1.5-6.6) 10^3/uL Lymph # (Auto) (1.5-3.5) 10^3/uL [place] # (Auto) (0.0-1.0) 10^3/uL Eos # (Auto) (0.0-0.7) 10^3/uL Baso # (Auto) (0.0-0.1) 10^3/uL Absolute Nucleated RBC x10^3/uL Nucleated RBC % /100WBC Sodium (135-145) mmol/L Potassium (3.5-5.0) mmol/L Chloride (101-111) mmol/L Carbon Dioxide (21-32) mmol/L Anion Gap (6-13) BUN (6-20) mg/dL Creatinine (0.4-1.0) mg/dL Estimated GFR (MDRD) (>89) Glucose (70-100) mg/dL POC Whole Bld Glucose 263 H (70 - 100) mg/dL Calcium (8.5-10.3) mg/dL Assessment/Plan - Problem List (1) Acute respiratory failure with hypoxemia Impression: This lady has documented COPD and now ends up with an RSV infection from her grandchild. Her COPD is compensated on home meds and It did require oxygenation in the emergency room. Between Admission and today she has been at a steady 2 L/min. No change in oxygen requirement. At this time we feel that her respiratory failure is acute, and the medical problems of COPD/no urine output will continue to be addressed. Case management Has asked that she be changed to inpatient status. (2) COPD exacerbation Impression: Due to RSV infection. Home medications are fluticasone nasal spray, Singulair, Zyrtec, and ProAir HFA inhaler. Here she is on DuoNeb, albuterol, budesonide inhalation, Deltasone ora lly. Singulair added last night. She is requiring same oxygen support. While I can state that she is not requiring more oxygen since admission, she is not improved on lung exam. She is reluctantly gotten up out of bed today to sit in a chair for us and ambulate in the room. She is severely short of breath, tachypneic, and wheezing is audible even without a stethoscope. Plan: Continue the fixed dose and scheduled DuoNeb. As needed albuterol. Fixed scheduled Pulmicort. She is on oral steroids and I will not change that.I have added Robaxin for the muscle spasms from the coughing. (3) Acute renal failure improving, due to ATN from hypotension Impression: This unfortunate female had no urine output on admission. At this time I am unclear as to the cause but we have evaluated her for renal obstruction, and none is present. She already has a low ejection fraction as baseline, was hypotensive in the emergency room at 69/39. Baseline creatinine of 0.9/1.0 was 1.8 in the emergency room already. She then received ketorolac, has remained hy potensive and creatinine went to 2.3 with no urine output. My suspicion is prerenal ATN. Once her pressure came up, she started diuresing. Yesterday she diuresed 6300 cc. Today 2525. Creatinine peaked at 2.6 and has come down to 1.2 today. continue to monitor Qualifiers: Acute renal failure type: unspecified Qualified Code(s): N17.9 - Acute kidney failure, unspecified (4) Diabetes mellitus type 2 in obese Impression: She is on an oral hypoglycemic at home in the form as of sulfonylurea. She is not on metformin. She has required anywhere between 1 units to 5 units before meals. On a regular basis. Lantus 5 units at night added 9/28. . Plan: This a.m. her fasting glucose was 126 and then came down to 91. For the rest the day she has been 140 and 203. No change in management. (5) Hypotension Impression: It is unclear why this lady has become so hypotensive again. In the emergency room she was 63 systolic and is responded to 2 L of IV normal saline and that her systolic is now in the high 90s/low 100s. She was not felt to be septic. She is not hemorrhaging or anemic. In reviewing the medical record she has presented twice in the last year or so with hypotension. 1 was in the face of diarrhea, and the other was not clear why this lady was hypotensive and her home medications were gradually reduced. But once her blood pressure rebounded she was discharged on her home blood pressure meds. Her most recent admission was in November 2021. Again she was felt to be hypotensive in the face of taking cardiac medications while dehydrated. Troponins yesterday do not indicate UT. EKG is without change. Plan: Consider not resuming blood pressure medicines at home and following her carefully. Qualifiers: Hypotension type: unspecified hypotension type Qualified Code(s): I95.9 - Hypotension, unspecified (6) Chronic systolic congestive heart failure Impression: This unfortunate female had V. fib in 2019 requiring close to an hour of CPR and multiple cardioversions. She finally regained pulse and pressure and [facility] Since that time she has had an AICD in place and is also on long-term anticoagulation for this as well as intermittent atrial fibrillation.She is on beta-julius, spironolactone, Lasix, lisinopril at home. She is also on Eliquis. Plan: Avoid over hydrating her Resume anticoagulation Give blood pressure parameters to her spironolactone, beta-julius and lisinop ril
[2022-02-10] MEDS: INSULIN GLARGINE-YFGN 300 UNIT/3 ML PEN SUBQ SCH (20:24)
[2022-02-10] MEDS: ALBUTEROL NEB 2.5 MG/3 ML INH PRN (23:38)
[2022-02-11] MEDS: SODIUM CHLORIDE FLUSH 0.9% 10 ML SYRINGE IVP SCH ×3 (01:23→17:02)
[2022-02-11] MEDS: methocarbamoL 500 MG TABLET PO PRN ×3 (04:36→20:20)
[2022-02-11] MEDS: BENZONATATE 100 MG CAPSULE PO PRN ×2 (04:36→10:28)
[2022-02-11 05:22] LABS: BASOPHILS % (AUTO) 0.2 %; EOSINOPHILS # (AUTO) 0.1 10^3/uL (0.0-0.7); EOSINOPHILS % (AUTO) 0.3 %; HCT - HEMATOCRIT 40.5 % (37.0-47.0); HGB - HEMOGLOBIN 13.4 g/dL (12.0-16.0); LYMPHOCYTES # (AUTO) 2.7 10^3/uL (1.5-3.5); LYMPHOCYTES % (AUTO) 15.2 %; MEAN CORPUSCULAR HEMOGLOBIN 31.9 pg (27.0-31.0); MEAN CORPUSCULAR HGB CONC 33.1 g/dL (32.0-36.0); MEAN CORPUSCULAR VOLUME 96.4 fL (81.0-99.0); MEAN PLATELET VOLUME 10.1 fL (7.9-10.8); MONOCYTES # (AUTO) 1.6 10^3/uL (0.0-1.0); MONOCYTES % (AUTO) 8.9 %; NEUTROPHILS # (AUTO) 13.5 10^3/uL (1.5-6.6); NEUTROPHILS % (AUTO) 74.7 %; PLT - PLATELET COUNT 245 10^3/uL (130-450); RED CELL DISTRIBUTION WIDTH 13.4 % (12.0-15.0); WHITE BLOOD COUNT 18.1 x10^3/uL (4.8-10.8)
[2022-02-11 05:45] LABS: CALCIUM 9.3 mg/dL (8.5-10.3); CREATININE 1.2 mg/dL (0.4-1.0); POTASSIUM 3.9 mmol/L (3.5-5.0)
[2022-02-11 05:49] LABS: DIFFERENTIAL COMMENT MANUAL=AUTO DIFF; PLATELET ESTIMATE, MANUAL NORMAL (130-450,000) (NORMAL); RBC MORPHOLOGY (MULTIPLE) NORMAL APPEARANCE (NORMAL)
[2022-02-11] MEDS: IPRATROPIUM/ALBUTEROL 3 ML NEB INH SCH ×4 (06:20→21:05)
[2022-02-11] MEDS: BUDESONIDE 0.5 MG/2 ML NEB INH SCH ×2 (06:20→21:05)
[2022-02-11] MEDS: ASCORBIC ACID 500 MG TABLET PO SCH (08:03)
[2022-02-11] MEDS: MULTIVITAMIN TABLET PO SCH (08:03)
[2022-02-11] MEDS: APIXABAN 5 MG TABLET PO SCH ×2 (08:04→21:21)
[2022-02-11] MEDS: AMIODARONE 200 MG TABLET PO SCH (08:04)
[2022-02-11] MEDS: METOPROLOL SUCCINATE 50 MG TABLET PO SCH ×2 (08:05→21:20)
[2022-02-11] MEDS: predniSONE 20 MG TABLET PO SCH (08:05)
[2022-02-11] MEDS: lisinopriL 5 MG TABLET PO SCH (08:05)
[2022-02-11] MEDS: SPIRONOLACTONE 25 MG TABLET PO SCH (08:05)
[2022-02-11] MEDS: guaiFENesin 600 MG TABLET PO SCH (08:05)
[2022-02-11] MEDS: INSULIN LISPRO 300 UNIT/3 ML PEN SUBQ SCH ×4 (08:07→21:17)
[2022-02-11] MEDS: FLUTICASONE NASAL SPRAY NAS SCH (08:08)
[2022-02-11] MEDS: SODIUM CHLORIDE 0.9% 1,000 ML IV SCH ×2 (11:31→17:00)
--- NOTE | 2022-02-11 14:37 | PROVIDER PROGRESS NOTE ---
Subjective - Prog Note Date Prog Note Date: 02/11/22 Prog Note Time: 14:35 - Subjective Subjective: Tearful in her misery. She just cannot sleep because she cannot lay down due to shortness of breath. She had COVID and was hospitalized for acute respiratory failure in the past. She tells me that this is worse than having COVID. She is not hungry, she is refused her breakfast and is going to eat about 25% of her lunch from what I can tell. She is on her insulin so her glucose was 79 this morning and had to be given juice. She is able to walk a few steps with physical therapy. She is sitting up in a chair in her room. She continues to have a chronic cough. And she tells me that even though she is wheezing, she does not know what is more miserable for her: The cough and wheezing or the sinus congestion that does not let her breathe through her nose. The oxygen is giving her bloody noses. Current Medications - Current Medications Current Medications: Active Medications Albuterol (Albuterol Neb 2.5 Mg/3 Ml) 2.5 mg INH RTQ4H PRN PRN Reason: Wheezing Last Admin: 02/10/22 23:38 Dose: 2.5 mg Albuterol/Ipratropium (Ipratropium/Albuterol 3 Ml Neb) 3 ml INH RTQID ROMAN Last Admin: 02/11/22 11:14 Dose: 3 ml Amiodarone HCl (Amiodarone 200 Mg Tablet) 100 mg PO DAILY ROMAN Last Admin: 02/11/22 08:04 Dose: 100 mg Apixaban (Apixaban 5 Mg Tablet) 5 mg PO BID ROMAN Last Admin: 02/11/22 08:04 Dose: 5 mg Ascorbic Acid (Ascorbic Acid 500 Mg Tablet) 500 mg PO DAILY ROMAN Last Admin: 02/11/22 08:03 Dose: 500 mg Benzonatate (Benzonatate 100 Mg Capsule) 100 mg PO TID PRN PRN Reason: Cough Last Admin: 02/11/22 10:28 Dose: 100 mg Budesonide (Budesonide 0.5 Mg/2 Ml Neb) 0.5 mg INH RTBID [facility] Last Admin: 02/11/22 06:20 Dose: 0.5 mg Fluticasone Propionate (Fluticasone Nasal Moody) 2 sprays CLARISA DAILY [facility] Last Admin: 02/11/22 08:08 Dose: 2 spr Guaifenesin (Guaifenesin 600 Mg Tablet) 600 mg PO DAILY [facility] Last Admin: 02/11/22 08:05 Dose: 600 mg Sodium Chloride (Normal Saline 0.9%) 1,000 mls @ 75 mls/hr IV .[id number] [facility] Last Admin: 02/11/22 11:31 Dose: Not Given Insulin Glargine-yfgn (Insulin Glargine-Yfgn 300 Unit/3 Ml Pen) 5 unit SUBQ QPM [facility] Last Admin: 02/10/22 20:24 Dose: 5 unit Insulin Human Lispro (Insulin Lispro 300 Unit/3 Ml Pen) 1 - 9 unit SUBQ 0800,1200,1700,2100 [facility]; Protocol Last Admin: 02/11/22 08:07 Dose: Not Given Lisinopril (Lisinopril 5 Mg Tablet) 2.5 mg PO DAILY [facility] Last Admin: 02/11/22 08:05 Dose: 2.5 mg Methocarbamol (Methocarbamol 500 Mg Tablet) 500 mg PO Q6HR PRN PRN Reason: Spasms Last Admin: 02/11/22 10:27 Dose: 500 mg Metoprolol Succinate (Metoprolol Succinate 50 Mg Tablet) 50 mg PO BID [facility] Last Admin: 02/11/22 08:05 Dose: 50 mg Montelukast Sodium (Montelukast 10 Mg Tablet) 10 mg PO QPM PRN PRN Reason: Allergy Symptoms Multivitamins (Multivitamin Tablet) 1 tab PO DAILYWM [facility] Last Admin: 02/11/22 08:03 Dose: 1 tab Prednisone (Prednisone 20 Mg Tablet) 20 mg PO DAILYWM [facility] Last Admin: 02/11/22 08:05 Dose: 20 mg Prochlorperazine Edisylate (Prochlorperazine 10 Mg/2 Ml Vial) 10 mg IVP Q6HR PRN PRN Reason: Nausea / Vomiting Last Admin: 02/08/22 13:22 Dose: 10 mg Prochlorperazine Maleate (Prochlorperazine 5 Mg Tablet) 5 mg PO Q6HR PRN PRN Reason: Nausea / Vomiting Sodium Chloride (Sodium Chloride Flush 0.9% 10 Ml Syringe) 10 ml IVP PRN PRN PRN Reason: NEEDED PER PROVIDER ORDERS Sodium Chloride (Sodium Chloride Flush 0.9% 10 Ml Syringe) 10 ml IVP 0100,0900,1700 [facility] Last Admin: 02/11/22 08:08 Dose: 10 ml Spironolactone (Spironolactone 25 Mg Tablet) 25 mg PO DAILY [facility] Last Admin: 02/11/22 08:05 Dose: 25 mg Furosemide 40 mg PO BIDDIURETIC 09/07/20 Apixaban [Eliquis] 5 mg PO BID 10/24/20 Amiodarone [Pacerone] 100 mg PO DAILY 02/04/21 Nitroglycerin [Nitrostat] 0.4 mg PO Q5MIN PRN 03/16/21 EPINEPHrine [Epinephrine] 0.3 mg IM PRN PRN 12/11/21 Glipizide [Glipizide ER] 5 mg PO DAILY 12/11/21 Metoprolol Succinate [Toprol Xl] 50 mg PO BID 12/11/21 Spironolactone [Aldactone] 25 mg PO DAILY 12/11/21 lisinopriL [Zestril] 5 mg PO DAILY 12/11/21 Cetirizine [ZyrTEC] 10 mg PO DAILY PRN 02/08/22 Fluticasone [Flonase] 2 sprays CLARISA DAILY 02/08/22 Montelukast [Singulair] 10 mg PO QPM PRN 02/08/22 Objective - Vital Signs/Intake & Output Reviewed Vital Signs: Yes Vital Signs: Vital Signs x48h Temp Pulse Pulse Resp BP BP Pulse Ox 02/11/22 13:00 37.5 C 20 88/76 L 91 L 02/11/22 11:15 87 19 02/11/22 07:45 37.4 C 66 20 89/66 L 96/36 L 92 O2 Flow Rate 02/11/22 13:00 2 02/11/22 11:15 2 02/11/22 07:45 3 Intake & Output: Intake & Output 02/08/22 02/09/22 02/10/22 02/11/22 23:59 23:59 23:59 23:59 Intake Total 1590 4151.25 2666.25 300 Output Total 1050 6300 3100 1300 Balance 540 -2148.75 -433.75 -1000 - Objective General Appearance: positive: Alert, Mild distress (Sitting comfortably in a chair, no pursed lips. Nasal tone of voice, congested tone of voice, rhinorrhea and coryza present. Tears in her eyes that she talks about how miserable she is) Eyes Bilateral: positive: PERRL, EOMI ENT: positive: No signs of dehydration Neck: positive: No JVD. negative: Stiff neck Respiratory: positive: Wheezes, Rhonchi, Other (When she is sitting talking to me she is comfortable and able to complete full sentences. But when she stands to transfer to get back in bed abrupt increase in shortness of breath, drops her O2 sats, takes about 5 minutes to recover.). negative: Rales Cardiovascular: positive: Regular rate & rhythm Abdomen: positive: Non-tender, Nml bowel sounds, No distention, Other (Huge abdominal pannus) Skin: positive: Warm, Dry Extremities: positive: Full ROM, Pedal edema (1+ around malleoli) Neurologic/Psychiatric: positive: Oriented x3, CN's nml (2-12), Motor nml, Other (Wide-based waddling gait) - Lab Results Fish Bones: 02/11/22 04:43 02/11/22 04:43 Other Labs: Lab Results x24hrs 02/11/22 02/11/22 02/11/22 Range/Units 11:27 07:41 04:43 WBC (4.8-10.8) x10^3/uL RBC (4.20-5.40) 10^6/uL Hgb (12.0-16.0) g/dL Hct (37.0-47.0) % MCV (81.0-99.0) fL MCH (27.0-31.0) pg MCHC (32.0-36.0) g/dL RDW (12.0-15.0) % Plt Count (130-450) 10^3/uL MPV (7.9-10.8) fL Neut # (Auto) (1.5-6.6) 10^3/uL Lymph # (Auto) (1.5-3.5) 10^3/uL Bracken # (Auto) (0.0-1.0) 10^3/uL Eos # (Auto) (0.0-0.7) 10^3/uL Baso # (Auto) (0.0-0.1) 10^3/uL Absolute Nucleated RBC x10^3/uL Band Neuts % (Manual) Abnorm Lymph % (Manual) Nucleated RBC % /100WBC Neutrophils # (Manual) Lymphocytes # (Manual) Monocytes # (Manual) Eosinophils # (Manual) Basophils # (Manual) Differential Comment Platelet Estimate (NORMAL) RBC Morph Micro Appear (NORMAL) Sodium 139 (135-145) mmol/L Potassium 3.9 (3.5-5.0) mmol/L Chloride 105 (101-111) mmol/L Carbon Dioxide 27 (21-32) mmol/L Anion Gap 7.0 (6-13) BUN 26 H (6-20) mg/dL Creatinine 1.2 H (0.4-1.0) mg/dL Estimated GFR (MDRD) 46 L (>89) Glucose 89 (70-100) mg/dL POC Whole Bld Glucose 139 H 76 (70 - 100) mg/dL Calcium 9.3 (8.5-10.3) mg/dL 02/11/22 02/10/22 02/10/22 Range/Units 04:43 20:13 16:35 WBC 18.1 H (4.8-10.8) x10^3/uL RBC 4.20 (4.20-5.40) 10^6/uL Hgb 13.4 (12.0-16.0) g/dL Hct 40.5 (37.0-47.0) % MCV 96.4 (81.0-99.0) fL MCH 31.9 H (27.0-31.0) pg MCHC 33.1 (32.0-36.0) g/dL RDW 13.4 (12.0-15.0) % Plt Count 245 (130-450) 10^3/uL MPV 10.1 (7.9-10.8) fL Neut # (Auto) 13.5 H (1.5-6.6) 10^3/uL Lymph # (Auto) 2.7 (1.5-3.5) 10^3/uL Bracken # (Auto) 1.6 H (0.0-1.0) 10^3/uL Eos # (Auto) 0.1 (0.0-0.7) 10^3/uL Baso # (Auto) 0.0 (0.0-0.1) 10^3/uL Absolute Nucleated RBC 0.00 x10^3/uL Band Neuts % (Manual) Not Reportable Abnorm Lymph % (Manual) Not Reportable Nucleated RBC % 0.0 /100WBC Neutrophils # (Manual) Not Reportable Lymphocytes # (Manual) Not Reportable Monocytes # (Manual) Not Reportable Eosinophils # (Manual) Not Reportable Basophils # (Manual) Not Reportable Differential Comment MANUAL=AUTO DIFF Platelet Estimate NORMAL (130-450,000) (NORMAL) RBC Morph Micro Appear NORMAL APPEARANCE (NORMAL) Sodium (135-145) mmol/L Potassium (3.5-5.0) mmol/L Chloride (101-111) mmol/L Carbon Dioxide (21-32) mmol/L Anion Gap (6-13) BUN (6-20) mg/dL Creatinine (0.4-1.0) mg/dL Estimated GFR (MDRD) (>89) Glucose (70-100) mg/dL POC Whole Bld Glucose 122 H 203 H (70 - 100) mg/dL Calcium (8.5-10.3) mg/dL ABX Reporting Has patient been on IV antibiotics over the past 48 hours?: No Assessment/Plan - Problem List (1) Acute respiratory failure with hypoxemia Impression: This lady has documented COPD and now ends up with an RSV infection from her grandchild. Her COPD had compensated in spite of being on home meds and It did require increased oxygenation needs in the emergency room. Between Admission and today she has been at a steady 2 L/min. No change in oxygen requirement. She continues to struggle to breathe. She is on 2 L nasal cannula. Humidification is already placed in the tubing. I will investigate to see if we can do some nasal flushes (2) COPD exacerbation Impression: Due to RSV infection. I have tried to be as reassuring as possible. I know that it feels like this is going to go on forever but RSV is usually done within 7 to 10 days. She is already been here 3 days and was sick even before she got here. She will slowly start improving. Home medications are fluticasone nasal spray, Singulair, Zyrtec, and ProAir HFA inhaler. Here she is on DuoNeb, albuterol, budesonide inhalation, Deltasone orally. Singulair added last night. She is requiring same oxygen support. Medications at home Singulair, Zyrtec, albuterol. She says she took over-the- counter NyQuil or DayQuil in the days before she came here. Medications now are: albuterol as needed, DuoNeb 4 times a day, Tessalon, Pulmicort, nasal Flonase, Mucinex, Deltasone 20 mg daily. I will give 2 doses of Solu-Medrol. (3) Acute renal failure improving, due to ATN from hypotension Impression: This unfortunate female had no urine output on admission. At this time I am unclear as to the cause but we have evaluated her for renal obstruction, and none is present. She already has a low ejection fraction as baseline, was hypotensive in the emergency room at 69/39. Baseline creatinine of 0.9/1.0 was 1.8 in the emergency room already. She then received ketorolac, has remained hypotensive and creatinine went to 2.3 with no urine output. My suspicion is prerenal ATN. Once her pressure came up, she started diuresing. February 09 she urinated 6300 cc. February 10 she urinated 3100 cc. So far today she is 1300 cc out. She is hypotensive with this again. She is on 75 cc/hr. I will increase rate to 125 cc and give 500 cc bolus Qualifiers: Acute renal failure type: unspecified Qualified Code(s): N17.9 - Acute kidney failure, unspecified (4) Diabetes mellitus type 2 in obese Impression: She is on an oral hypoglycemic at home in the form as of sulfonylurea. She is not on metformin. She has required anywhere between 1 units to 5 units before meals. On a regular basis. Lantus 5 units at night added 02/09. . Plan: On 5 units of Lantus yesterday she was 91, 140, 203, 122. This morning she is 76 and before lunch 139. No change in management. (5) Hypotension Impression: It is unclear why this lady has become so hypotensive again. In the emergency room she was 63 systolic and is responded to 2 L of IV normal saline and that her systolic is now in the high 90s/low 100s. She was not felt to be septic. She is not hemorrhaging or anemic. In reviewing the medical record she has presented twice in the last year or so with hypotension. 1 was in the face of diarrhea, and the other was not clear why this lady was hypotensive and her home medications were gradually reduced. But once her blood pressure rebounded she was discharged on her home blood pressure meds. Her most recent admission was in November 2021. Again she was felt to be hypotensive in the face of taking cardiac medications while dehydrated. Troponins do not indicate AR. EKG is without change. Plan: Consider not resuming blood pressure medicines at home and following her carefully. today she will get a 500 cc bolus and increase IVF,, Qualifiers: Hypotension type: unspecified hypotension type Qualified Code(s): I95.9 - Hypotension, unspecified (6) Chronic systolic congestive heart failure Impression: This unfortunate female had V. fib in 2019 requiring close to an hour of CPR and multiple cardioversions. She finally regained pulse and pressure and was transferred to [facility]. Since that time she has had an AICD in place and is also on long-term anticoagulation for this as well as intermittent atrial fibrillation.She is on beta-julius, spironolactone, Lasix, lisinopril at home. She is also on Eliquis. Plan: Avoid over hydrating her but she is hypotensive w brisk urine output so will give 500 cc bolus and ivf @ 125 cc/hr. Resume anticoagulation Give blood pressure parameters to her spironolactone, beta-julius and lisinopril
[2022-02-11] MEDS ORDERED: SODIUM CHLORIDE 0.9% 500 ML IV ONE (14:49)
[2022-02-11] MEDS: methylPREDNISolone SUCCINATE 40 MG/ML VIAL IVP SCH ×2 (17:55→21:21)
[2022-02-11] MEDS: PROCHLORPERAZINE 10 MG/2 ML VIAL IVP PRN (17:55)
[2022-02-11] MEDS: INSULIN GLARGINE-YFGN 300 UNIT/3 ML PEN SUBQ SCH (21:18)
[2022-02-12] MEDS: SODIUM CHLORIDE 0.9% 1,000 ML IV SCH ×3 (01:19→19:54)
[2022-02-12] MEDS: SODIUM CHLORIDE FLUSH 0.9% 10 ML SYRINGE IVP SCH ×3 (01:20→16:49)
[2022-02-12 04:56] LABS: BASOPHILS % (AUTO) 0.2 %; HCT - HEMATOCRIT 40.9 % (37.0-47.0); HGB - HEMOGLOBIN 13.8 g/dL (12.0-16.0); LYMPHOCYTES # (AUTO) 1.2 10^3/uL (1.5-3.5); LYMPHOCYTES % (AUTO) 6.7 %; MEAN CORPUSCULAR HEMOGLOBIN 32.3 pg (27.0-31.0); MEAN CORPUSCULAR HGB CONC 33.7 g/dL (32.0-36.0); MEAN CORPUSCULAR VOLUME 95.8 fL (81.0-99.0); MEAN PLATELET VOLUME 9.8 fL (7.9-10.8); MONOCYTES # (AUTO) 0.4 10^3/uL (0.0-1.0); MONOCYTES % (AUTO) 2.1 %; NEUTROPHILS # (AUTO) 16.5 10^3/uL (1.5-6.6); NEUTROPHILS % (AUTO) 89.5 %; PLT - PLATELET COUNT 244 10^3/uL (130-450); RED BLOOD COUNT 4.27 10^6/uL (4.20-5.40); WHITE BLOOD COUNT 18.4 x10^3/uL (4.8-10.8)
[2022-02-12 05:06] LABS: CALCIUM 9.5 mg/dL (8.5-10.3); CREATININE 0.9 mg/dL (0.4-1.0); POTASSIUM 4.4 mmol/L (3.5-5.0)
[2022-02-12] MEDS: BUDESONIDE 0.5 MG/2 ML NEB INH SCH ×2 (05:55→18:15)
[2022-02-12] MEDS: IPRATROPIUM/ALBUTEROL 3 ML NEB INH SCH ×4 (05:56→18:15)
[2022-02-12] MEDS: methylPREDNISolone SUCCINATE 40 MG/ML VIAL IVP SCH (06:58)
[2022-02-12] MEDS: methocarbamoL 500 MG TABLET PO PRN ×3 (06:58→20:36)
[2022-02-12] MEDS: INSULIN LISPRO 300 UNIT/3 ML PEN SUBQ SCH ×4 (08:03→20:35)
[2022-02-12] MEDS: AMIODARONE 200 MG TABLET PO SCH (08:04)
[2022-02-12] MEDS: guaiFENesin 600 MG TABLET PO SCH (08:04)
[2022-02-12] MEDS: lisinopriL 5 MG TABLET PO SCH (08:04)
[2022-02-12] MEDS: APIXABAN 5 MG TABLET PO SCH ×2 (08:04→19:54)
[2022-02-12] MEDS: METOPROLOL SUCCINATE 50 MG TABLET PO SCH ×2 (08:04→19:54)
[2022-02-12] MEDS: ASCORBIC ACID 500 MG TABLET PO SCH (08:05)
[2022-02-12] MEDS: MULTIVITAMIN TABLET PO SCH (08:05)
[2022-02-12] MEDS: SPIRONOLACTONE 25 MG TABLET PO SCH (08:05)
[2022-02-12] MEDS: FLUTICASONE NASAL SPRAY NAS SCH (08:06)
--- NOTE | 2022-02-12 12:27 | PROVIDER PROGRESS NOTE ---
Subjective - Prog Note Date Prog Note Date: 02/12/22 Prog Note Time: 12:25 - Subjective Subjective: Still gets tears in her eyes when she talks about how miserable she is. She misses her dog and would love to see her dog. But she does feel like she is a t eeny tiny bit better from yesterday to today. She feels like her lungs are little looser. Still with a loose, rhonchorous cough Pain is in her sacrum from a broken tailbone. Pain is in her rib cage from coughing and it just hurts to cough more. Pain is from neuropathy. At home she has been taking Flexeril as needed, and had a 30 tablet order of [place] when she was discharged December 12. Other than that her primary care providers do not give her opiates or other chronic pain meds. Yesterday she dropped her pressure again to 88 systolic, 96, 99. I gave her a fluid bolus and increased her IV fluids. This morning she was 105 systolic, then 128 systolic and right now with exam 127 systolic. She has been getting lisinopril 2.5 mg because of heart failure with low ejection fraction. Also on amiodarone, spironolactone. Current Medications - Current Medications Current Medications: Active Medications Albuterol (Albuterol Neb 2.5 Mg/3 Ml) 2.5 mg INH RTQ4H PRN PRN Reason: Wheezing Last Admin: 02/10/22 23:38 Dose: 2.5 mg Albuterol/Ipratropium (Ipratropium/Albuterol 3 Ml Neb) 3 ml INH RTQID [facility] Last Admin: 02/12/22 10:00 Dose: 3 ml Amiodarone HCl (Amiodarone 200 Mg Tablet) 100 mg PO DAILY [facility] Last Admin: 02/12/22 08:04 Dose: 100 mg Apixaban (Apixaban 5 Mg Tablet) 5 mg PO BID [facility] Last Admin: 02/12/22 08:04 Dose: 5 mg Ascorbic Acid (Ascorbic Acid 500 Mg Tablet) 500 mg PO DAILY [facility] Last Admin: 02/12/22 08:05 Dose: 500 mg Benzonatate (Benzonatate 100 Mg Capsule) 100 mg PO TID PRN PRN Reason: Cough Last Admin: 02/11/22 10:28 Dose: 100 mg Budesonide (Budesonide 0.5 Mg/2 Ml Neb) 0.5 mg INH RTBID [facility] Last Admin: 02/12/22 05:55 Dose: 0.5 mg Fluticasone Propionate (Fluticasone Nasal [place]) 2 sprays [place] DAILY [facility] Last Admin: 02/12/22 08:06 Dose: 2 spr Guaifenesin (Guaifenesin 600 Mg Tablet) 600 mg PO DAILY [facility] Last Admin: 02/12/22 08:04 Dose: 600 mg Sodium Chloride (Normal Saline 0.9%) 1,000 mls @ 125 mls/hr IV .Q8H [facility] Last Admin: 02/12/22 11:25 Dose: 125 mls/hr Insulin Glargine-yfgn (Insulin Glargine-Yfgn 300 Unit/3 Ml Pen) 5 unit SUBQ QPM [facility] Last Admin: 02/11/22 21:18 Dose: 5 unit Insulin Human Lispro (Insulin Lispro 300 Unit/3 Ml Pen) 1 - 9 unit SUBQ 0800,1200,1700,2100 [facility]; Protocol Last Admin: 02/12/22 11:25 Dose: 1 unit Lisinopril (Lisinopril 5 Mg Tablet) 2.5 mg PO DAILY [facility] Last Admin: 02/12/22 08:04 Dose: 2.5 mg Methocarbamol (Methocarbamol 500 Mg Tablet) 500 mg PO Q6HR PRN PRN Reason: Spasms Last Admin: 02/12/22 06:58 Dose: 500 mg Metoprolol Succinate (Metoprolol Succinate 50 Mg Tablet) 50 mg PO BID [facility] Last Admin: 02/12/22 08:04 Dose: 50 mg Montelukast Sodium (Montelukast 10 Mg Tablet) 10 mg PO QPM PRN PRN Reason: Allergy Symptoms Multivitamins (Multivitamin Tablet) 1 tab PO DAILYWM [facility] Last Admin: 02/12/22 08:05 Dose: 1 tab Prochlorperazine Edisylate (Prochlorperazine 10 Mg/2 Ml Vial) 10 mg IVP Q6HR PRN PRN Reason: Nausea / Vomiting Last Admin: 02/11/22 17:55 Dose: 10 mg Prochlorperazine Maleate (Prochlorperazine 5 Mg Tablet) 5 mg PO Q6HR PRN PRN Reason: Nausea / Vomiting Sodium Chloride (Sodium Chloride Flush 0.9% 10 Ml Syringe) 10 ml IVP PRN PRN PRN Reason: NEEDED PER PROVIDER ORDERS Sodium Chloride (Sodium Chloride Flush 0.9% 10 Ml Syringe) 10 ml IVP 0100,0900,1700 [facility] Last Admin: 02/12/22 08:06 Dose: 10 ml Spironolactone (Spironolactone 25 Mg Tablet) 25 mg PO DAILY [facility] Last Admin: 02/12/22 08:05 Dose: 25 mg Furosemide 40 mg PO BIDDIURETIC 09/07/20 Apixaban [Eliquis] 5 mg PO BID 10/24/20 Amiodarone [Pacerone] 100 mg PO DAILY 02/04/21 Nitroglycerin [Nitrostat] 0.4 mg PO Q5MIN PRN 03/16/21 EPINEPHrine [Epinephrine] 0.3 mg IM PRN PRN 12/11/21 Glipizide [Glipizide ER] 5 mg PO DAILY 12/11/21 Metoprolol Succinate [Toprol Xl] 50 mg PO BID 12/11/21 Spironolactone [Aldactone] 25 mg PO DAILY 12/11/21 lisinopriL [Zestril] 5 mg PO DAILY 12/11/21 Cetirizine [ZyrTEC] 10 mg PO DAILY PRN 02/08/22 Fluticasone [Flonase] 2 sprays CL[place] DAILY 02/08/22 Montelukast [Singulair] 10 mg PO QPM PRN 02/08/22 Objective - Vital Signs/Intake & Output Reviewed Vital Signs: Yes Vital Signs: Vital Signs x48h Temp Pulse Pulse Resp BP Pulse Ox O2 Flow Rate 02/12/22 10:01 66 24 2 02/12/22 07:43 36.5 C 59 L 18 127/55 L 93 2 02/12/22 05:56 65 18 3 02/12/22 05:00 36.7 C 60 20 128/46 L 92 2 Intake & Output: Intake & Output 02/09/22 02/10/22 02/11/22 02/12/22 23:59 23:59 23:59 23:59 Intake Total 4151.25 2666.25 1830 2240 Output Total 6300 3100 4550 1575 Balance -2148.75 -433.75 -2720 665 - Objective General Appearance: positive: Alert, Mild distress, Other (Short statured female at 5 foot 3 inches tall. 107 kg. Nasal cannula oxygen in place. She has a little bit of rhinorrhea, some coryza. She has a nasal tone of voice. Loose phlegmy cough that is not bringing up anything right now. She ate her breakfast. Good bc not eating. Able to walk 30') Eyes Bilateral: positive: PERRL, EOMI ENT: positive: No signs of dehydration Neck: positive: No JVD. negative: Stiff neck Respiratory: positive: Wheezes, Rhonchi, Other (Wheezing is not audible today. Have to listen with a stethoscope and she does have wheezing but good air movement. Its diffuse). negative: Rales Cardiovascular: positive: Regular rate & rhythm Abdomen: positive: Non-tender, No organomegaly, Nml bowel sounds, No distention, Other (Obese pannus) Skin: positive: Warm, Dry Extremities: positive: No pedal edema Neurologic/Psychiatric: positive: Oriented x3, CN's nml (2-12), Motor nml - Lab Results Fish Bones: 02/12/22 04:41 02/12/22 04:41 Other Labs: Lab Results x24hrs 02/12/22 02/12/22 02/12/22 Range/Units 11:23 07:37 04:41 WBC (4.8-10.8) x10^3/uL RBC (4.20-5.40) 10^6/uL Hgb (12.0-16.0) g/dL Hct (37.0-47.0) % MCV (81.0-99.0) fL MCH (27.0-31.0) pg MCHC (32.0-36.0) g/dL RDW (12.0-15.0) % Plt Count (130-450) 10^3/uL MPV (7.9-10.8) fL Neut # (Auto) (1.5-6.6) 10^3/uL Lymph # (Auto) (1.5-3.5) 10^3/uL [place] # (Auto) (0.0-1.0) 10^3/uL Eos # (Auto) (0.0-0.7) 10^3/uL Baso # (Auto) (0.0-0.1) 10^3/uL Absolute Nucleated RBC x10^3/uL Nucleated RBC % /100WBC Sodium (135-145) mmol/L Potassium (3.5-5.0) mmol/L Chloride (101-111) mmol/L Carbon Dioxide (21-32) mmol/L Anion Gap (6-13) BUN (6-20) mg/dL Creatinine (0.4-1.0) mg/dL Estimated GFR (MDRD) (>89) Glucose (70-100) mg/dL POC Whole Bld Glucose 180 H 207 H (70 - 100) mg/dL Calcium (8.5-10.3) mg/dL Cortisol AM Sample 2.4 ug/dL 02/12/22 02/12/22 02/11/22 Range/Units 04:41 04:41 20:23 WBC 18.4 H (4.8-10.8) x10^3/uL RBC 4.27 (4.20-5.40) 10^6/uL Hgb 13.8 (12.0-16.0) g/dL Hct 40.9 (37.0-47.0) % MCV 95.8 (81.0-99.0) fL MCH 32.3 H (27.0-31.0) pg MCHC 33.7 (32.0-36.0) g/dL RDW 13.0 (12.0-15.0) % Plt Count 244 (130-450) 10^3/uL MPV 9.8 (7.9-10.8) fL Neut # (Auto) 16.5 H (1.5-6.6) 10^3/uL Lymph # (Auto) 1.2 L (1.5-3.5) 10^3/uL [place] # (Auto) 0.4 (0.0-1.0) 10^3/uL Eos # (Auto) 0.0 (0.0-0.7) 10^3/uL Baso # (Auto) 0.0 (0.0-0.1) 10^3/uL Absolute Nucleated RBC 0.00 x10^3/uL Nucleated RBC % 0.0 /100WBC Sodium 140 (135-145) mmol/L Potassium 4.4 (3.5-5.0) mmol/L Chloride 106 (101-111) mmol/L Carbon Dioxide 27 (21-32) mmol/L Anion Gap 7.0 (6-13) BUN 25 H (6-20) mg/dL Creatinine 0.9 (0.4-1.0) mg/dL Estimated GFR (MDRD) 64 L (>89) Glucose 190 H (70-100) mg/dL POC Whole Bld Glucose 175 H (70 - 100) mg/dL Calcium 9.5 (8.5-10.3) mg/dL Cortisol AM Sample ug/dL 02/11/22 Range/Units 16:27 WBC (4.8-10.8) x10^3/uL RBC (4.20-5.40) 10^6/uL Hgb (12.0-16.0) g/dL Hct (37.0-47.0) % MCV (81.0-99.0) fL MCH (27.0-31.0) pg MCHC (32.0-36.0) g/dL RDW (12.0-15.0) % Plt Count (130-450) 10^3/uL MPV (7.9-10.8) fL Neut # (Auto) (1.5-6.6) 10^3/uL Lymph # (Auto) (1.5-3.5) 10^3/uL [place] # (Auto) (0.0-1.0) 10^3/uL Eos # (Auto) (0.0-0.7) 10^3/uL Baso # (Auto) (0.0-0.1) 10^3/uL Absolute Nucleated RBC x10^3/uL Nucleated RBC % /100WBC Sodium (135-145) mmol/L Potassium (3.5-5.0) mmol/L Chloride (101-111) mmol/L Carbon Dioxide (21-32) mmol/L Anion Gap (6-13) BUN (6-20) mg/dL Creatinine (0.4-1.0) mg/dL Estimated GFR (MDRD) (>89) Glucose (70-100) mg/dL POC Whole Bld Glucose 156 H (70 - 100) mg/dL Calcium (8.5-10.3) mg/dL Cortisol AM Sample ug/dL ABX Reporting Has patient been on IV antibiotics over the past 48 hours?: No Assessment/Plan - Problem List (1) Acute respiratory failure with hypoxemia Impression: This lady has documented COPD and now ends up with an RSV infection from her grandchild. Her COPD had compensated in spite of being on home meds and It did require increased oxygenation needs in the emergency room. Between Admission and today she has been at a steady 2 L/min. No change in oxygen requirement. She continues to cough, be short of breath, wheeze. Sinus congestion. But today conversation is easier, lung exam shows it to be slightly looser. I am hoping she is turning the corner. Plan: Continue nasal cannula oxygen supplementation with humidification (2) COPD exacerbation Impression: Due to RSV infection. Again, I have tried to be as reassuring as possible. I know that it feels like this is going to go on forever but RSV is usually done within 7 to 10 days. She is already been here 4 days and was sick even before she got here. She will slowly start improving. She is requiring same oxygen support. Medications at home Singulair, Zyrtec, albuterol. She says she took [id number] NyQuil or DayQuil in the days before she came here. Medications now are: albuterol as needed, DuoNeb 4 times a day, Tessalon, Pulmicort, nasal Flonase, Mucinex, Deltasone 20 mg daily. Have given her 2 doses of Solu-Medrol.She seems to have improved slightly today subjectively. Exam is about the same (3) Acute renal failure resolved, due to ATN from hypotension Impression: This unfortunate female had no urine output on admission. At this time I am unclear as to the cause but we have evaluated her for renal obstruction, and none is present. She already has a low ejection fraction as baseline, was hypotensive in the emergency room at 69/39. Baseline creatinine of 0.9/1.0 was 1.8 in the emergency room already. She then received ketorolac, has remained hypotensive and creatinine went to 2.3 with no urine output. My suspicion is prerenal ATN.She may have been dehydrated due to p.o. intake problems. She has not been eating very much. Once her pressure came up, she started diuresing. February 09 she urinated 6300 cc. February 10 she urinated 3100 cc. February 11 4550 cc out and was hypotensive again on lisinopril 2.5 mg. Today she is 1575 cc out. Creatinine now normal at 0.9. BP normal. My suspicion is that of post ATN diuresis. I am keeping up with her outtake by having increased her IV fluids yesterday. She seems to be stable. Once urine output start slowing down I will slow down on IV intake Qualifiers: Acute renal failure type: unspecified Qualified Code(s): N17.9 - Acute kidney failure, unspecified (4) Diabetes mellitus type 2 in obese Impression: She is on an oral hypoglycemic at home in the form as of sulfonylurea. She is not on metformin. She has required anywhere between 1 units to 5 units before meals. On a regular basis. Lantus 5 units at night added 02/09. February 11 she was 76, 139, 156, 175 This morning she is 207 and before lunch she is 180 Plan: No change (5) Hypotension Impression: It is unclear why this lady has become so hypotensive again. In the emergency room she was 63 systolic and is responded to 2 L of IV normal saline and that her systolic is now in the high 90s/low 100s. She was not felt to be septic. She is not hemorrhaging or anemic. In reviewing the medical record she has presented twice in the last year or so with hypotension. 1 was in the face of diarrhea, and the other was not clear why this lady was hypotensive and her home medications were gradually reduced. But once her blood pressure rebounded she was discharged on her home blood pressure meds. Her most recent admission was in November 2021. Again she was felt to be hypotensive in the face of taking cardiac medications while dehydrated. Troponins do not indicate NE. EKG is without change. Plan: Consider not resuming blood pressure medicines at home and following her carefully. Starting 02/11 on increased IVF Qualifiers: Hypotension type: unspecified hypotension type Qualified Code(s): I95.9 - Hypotension, unspecified (6) Chronic systolic congestive heart failure Impression: This unfortunate female had V. fib in 2019 requiring close to an hour of CPR and multiple cardioversions. She finally regained pulse and pressure and was transferred to [facility]. Since that time she has had an AICD in place and is also on long-term anticoagulation for this as well as intermittent atrial fibrillation.She is on beta-julius, spironolactone, Lasix, lisinopril at home. She is also on Eliquis. Her echocardiogram February 09 has mild left ventricular enlargement, moderate global hypokinesis with diastolic dysfunction indeterminate. Ejection fraction is 30 to 35%. When compared to previous echoes, December 2017 ejection fraction 50 to 55%. January 2019 ejection fraction 40 to 45%. July 2019 ejection fraction 40%. Plan: Avoid over hydrating her but she is hypotensive w brisk urine output so given 500 cc bolus and ivf @ 125 cc/hr on 02/11. today BP better, keep on 125 cc since still w brisk UOP. Resume anticoagulation Give blood pressure parameters to her spironolactone, beta-julius and lisinopril
[2022-02-12] MEDS: INSULIN GLARGINE-YFGN 300 UNIT/3 ML PEN SUBQ SCH (20:35)
[2022-02-13] MEDS: SODIUM CHLORIDE FLUSH 0.9% 10 ML SYRINGE IVP SCH ×3 (00:08→16:56)
[2022-02-13] MEDS: ALBUTEROL NEB 2.5 MG/3 ML INH PRN (00:52)
[2022-02-13] MEDS: SODIUM CHLORIDE 0.9% 1,000 ML IV SCH ×2 (03:24→11:11)
[2022-02-13] MEDS: BENZONATATE 100 MG CAPSULE PO PRN ×2 (03:24→16:57)
[2022-02-13] MEDS: methocarbamoL 500 MG TABLET PO PRN ×2 (03:24→21:06)
[2022-02-13] MEDS: IPRATROPIUM/ALBUTEROL 3 ML NEB INH SCH ×4 (07:14→19:43)
[2022-02-13] MEDS: BUDESONIDE 0.5 MG/2 ML NEB INH SCH ×2 (07:14→19:43)
[2022-02-13] MEDS: guaiFENesin 600 MG TABLET PO SCH (09:02)
[2022-02-13] MEDS: APIXABAN 5 MG TABLET PO SCH ×2 (09:03→21:06)
[2022-02-13] MEDS: METOPROLOL SUCCINATE 50 MG TABLET PO SCH (09:03)
[2022-02-13] MEDS: MULTIVITAMIN TABLET PO SCH (09:03)
[2022-02-13] MEDS: SPIRONOLACTONE 25 MG TABLET PO SCH (09:03)
[2022-02-13] MEDS: AMIODARONE 200 MG TABLET PO SCH (09:03)
[2022-02-13] MEDS: ASCORBIC ACID 500 MG TABLET PO SCH (09:03)
[2022-02-13] MEDS: lisinopriL 5 MG TABLET PO SCH (09:03)
[2022-02-13] MEDS: polyethylene glycoL 3350 17 GM PACKET PO SCH (09:04)
[2022-02-13] MEDS: FLUTICASONE NASAL SPRAY NAS SCH (09:04)
[2022-02-13] MEDS: INSULIN LISPRO 300 UNIT/3 ML PEN SUBQ SCH ×4 (09:05→21:06)
[2022-02-13] MEDS ORDERED: NITROGLYCERIN SL 0.4 MG TABLET SL PRN (10:55)
--- NOTE | 2022-02-13 11:38 | XRAY Report ---
PROCEDURE: Chest 1 View X-Ray INDICATIONS: sudden left sided cp TECHNIQUE: One view of the chest was acquired. COMPARISON: 02/07/2022 FINDINGS: Surgical changes and devices: Right-sided dual-chamber pacemaker/defibrillator present. Lungs and pleura: Heart size is enlarged but is moderate vascular congestion and obscuration of the left hemidiaphragm, increased from the prior exam. Mediastinum: As above Bones and chest wall: Old healed anterior rib fractures noted on the right IMPRESSION: Cardiomegaly, moderate vascular congestion and new left-sided pleural effusion with atelectasis and o r infiltrate Reviewed by: David Garcia MD on 02/13/2022 10:36 AM JORGE L Approved by: David Garcia MD on 02/13/2022 10:36 AM JORGE L Station ID: [id number]
--- NOTE | 2022-02-13 13:37 | PROVIDER PROGRESS NOTE ---
Subjective - Prog Note Date Prog Note Date: 02/13/22 Prog Note Time: 13:35 - Subjective Subjective: I had seen her this morning and she was still complaining of how hard she was coughing. How much it caused her rib cage to ache. And how much her tailbone hurts. But she was less tearful. Less desperate. But did not sleep last night because of the cough. She then complained of left-sided chest pain that was anterior, radiating to the left shoulder and down her left arm. It did not really change with sublingual nitroglycerin. Troponin was negative, EKG has a left bundle branch block which is not new. Chest x-ray was done and she has cardiomegaly with moderate vascular congestion and a new left-sided pleural effusion with atelectasis/infiltrate. Current Medications - Current Medications Current Medications: Active Medications Albuterol (Albuterol Neb 2.5 Mg/3 Ml) 2.5 mg INH RTQ4H PRN PRN Reason: Wheezing Last Admin: 02/13/22 00:52 Dose: 2.5 mg Albuterol/Ipratropium (Ipratropium/Albuterol 3 Ml Neb) 3 ml INH RTQID [facility] Last Admin: 02/13/22 13:35 Dose: Not Given Amiodarone HCl (Amiodarone 200 Mg Tablet) 100 mg PO DAILY [facility] Last Admin: 02/13/22 09:03 Dose: 100 mg Apixaban (Apixaban 5 Mg Tablet) 5 mg PO BID [facility] Last Admin: 02/13/22 09:03 Dose: 5 mg Ascorbic Acid (Ascorbic Acid 500 Mg Tablet) 500 mg PO DAILY [facility] Last Admin: 02/13/22 09:03 Dose: 500 mg Benzonatate (Benzonatate 100 Mg Capsule) 100 mg PO TID PRN PRN Reason: Cough Last Admin: 02/13/22 03:24 Dose: 100 mg Budesonide (Budesonide 0.5 Mg/2 Ml Neb) 0.5 mg INH RTBID [facility] Last Admin: 02/13/22 07:14 Dose: 0.5 mg Fluticasone Propionate (Fluticasone Nasal Stacy) 2 sprays CLARISA DAILY [facility] Last Admin: 02/13/22 09:04 Dose: 2 spr Guaifenesin (Guaifenesin 600 Mg Tablet) 600 mg PO DAILY [facility] Last Admin: 02/13/22 09:02 Dose: 600 mg Cefepime HCl 1 gm/ Sodium (Chloride) 100 mls @ 200 mls/hr IV TID [facility] Insulin Glargine-yfgn (Insulin Glargine-Yfgn 300 Unit/3 Ml Pen) 5 unit SUBQ QPM [facility] Last Admin: 02/12/22 20:35 Dose: 5 unit Insulin Human Lispro (Insulin Lispro 300 Unit/3 Ml Pen) 2 - 10 unit SUBQ 0800,1200,1700,2100 [facility]; Protocol Last Admin: 02/13/22 11:37 Dose: Not Given Lisinopril (Lisinopril 5 Mg Tablet) 2.5 mg PO DAILY [facility] Last Admin: 02/13/22 09:03 Dose: 2.5 mg Methocarbamol (Methocarbamol 500 Mg Tablet) 500 mg PO Q6HR PRN PRN Reason: Spasms Last Admin: 02/13/22 03:24 Dose: 500 mg Metoprolol Succinate (Metoprolol Succinate 50 Mg Tablet) 50 mg PO BID [facility] Last Admin: 02/13/22 09:03 Dose: 50 mg Montelukast Sodium (Montelukast 10 Mg Tablet) 10 mg PO QPM PRN PRN Reason: Allergy Symptoms Multivitamins (Multivitamin Tablet) 1 tab PO DAILYWM [facility] Last Admin: 02/13/22 09:03 Dose: 1 tab Nitroglycerin (Nitroglycerin Sl 0.4 Mg Tablet) 0.4 mg SL Q5MIN PRN PRN Reason: Chest Pain Last Admin: 02/13/22 11:04 Dose: 0.4 mg Polyethylene Glycol (Polyethylene Glycol 3350 17 Gm Packet) 17 gm PO DAILY [facility] Last Admin: 02/13/22 09:04 Dose: 17 gm Prochlorperazine Edisylate (Prochlorperazine 10 Mg/2 Ml Vial) 10 mg IVP Q6HR PRN PRN Reason: Nausea / Vomiting Last Admin: 02/11/22 17:55 Dose: 10 mg Prochlorperazine Maleate (Prochlorperazine 5 Mg Tablet) 5 mg PO Q6HR PRN PRN Reason: Nausea / Vomiting Sodium Chloride (Sodium Chloride Flush 0.9% 10 Ml Syringe) 10 ml IVP PRN PRN PRN Reason: NEEDED PER PROVIDER ORDERS Sodium Chloride (Sodium Chloride Flush 0.9% 10 Ml Syringe) 10 ml IVP 0100,0 900,1700 [facility] Last Admin: 02/13/22 09:04 Dose: Not Given Spironolactone (Spironolactone 25 Mg Tablet) 25 mg PO DAILY [facility] Last Admin: 02/13/22 09:03 Dose: 25 mg Vancomycin HCl (Vancomycin: Pharmacy To Dose) 1 each ONCE PRN PRN Reason: PER PHARMACY Furosemide 40 mg PO BIDDIURETIC 09/07/20 Apixaban [Eliquis] 5 mg PO BID 10/24/20 Amiodarone [Pacerone] 100 mg PO DAILY 02/04/21 Nitroglycerin [Nitrostat] 0.4 mg PO Q5MIN PRN 03/16/21 EPINEPHrine [Epinephrine] 0.3 mg IM PRN PRN 12/11/21 Glipizide [Glipizide ER] 5 mg PO DAILY 12/11/21 Metoprolol Succinate [Toprol Xl] 50 mg PO BID 12/11/21 Spironolactone [Aldactone] 25 mg PO DAILY 12/11/21 lisinopriL [Zestril] 5 mg PO DAILY 12/11/21 Cetirizine [ZyrTEC] 10 mg PO DAILY PRN 02/08/22 Fluticasone [Flonase] 2 sprays CLARISA DAILY 02/08/22 Montelukast [Singulair] 10 mg PO QPM PRN 02/08/22 Objective - Vital Signs/Intake & Output Reviewed Vital Signs: Yes Vital Signs: Vital Signs x48h Temp Pulse Pulse Resp BP BP Pulse Ox 02/13/22 11:04 62 105/54 L 02/13/22 10:55 36.9 C 60 19 102/37 L 94 02/13/22 07:44 36.7 C 100 21 121/42 L 93 02/13/22 07:15 69 22 O2 Flow Rate 02/13/22 11:04 02/13/22 10:55 2 02/13/22 07:44 02/13/22 07:15 2 Intake & Output: Intake & Output 02/10/22 02/11/22 02/12/22 02/13/22 23:59 23:59 23:59 23:59 Intake Total 2666.25 1830 4100 2656.417 Output Total 3100 4550 3850 2400 Balance -433.75 -2720 250 256.417 - Objective General Appearance: positive: Alert (She alternates between sitting in bed and sitting in a chair. Upright. Cannot lay down flat because the coughing is much worse.), Other (Nasal tone of voice) Eyes Bilateral: positive: PERRL, EOMI ENT: positive: Other (Rhinorrhea, less coryza today) Neck: positive: No JVD. negative: Stiff neck Respiratory: positive: Wheezes, Rhonchi, Other (More wheezing today. More musical. I am hearing more air movement than yesterday. Diminished breath sounds on the left lower lung and there is some egophony. Bronchitic phlegmy cough during exam.) Cardiovascular: positive: Regular rate & rhythm Abdomen: positive: Non-tender, Nml bowel sounds, No distention Skin: positive: Warm, Dry Extremities: positive: Full ROM, Pedal edema Neurologic/Psychiatric: positive: Oriented x3, CN's nml (2-12), Motor nml - Lab Results Fish Bones: 02/12/22 04:41 02/12/22 04:41 Other Labs: Lab Results x24hrs 02/13/22 02/13/22 02/13/22 Range/Units 11:17 11:08 07:39 POC Whole Bld Glucose 85 92 (70 - 100) mg/dL Troponin I High Sens 7.1 (2.3-14.8) ng/L 02/12/22 02/12/22 Range/Units 20:34 16:34 POC Whole Bld Glucose 231 H 274 H (70 - 100) mg/dL Troponin I High Sens (2.3-14.8) ng/L Assessment/Plan - Problem List (1) Secondary bacterial pneumonia Impression: I think she is developed a secondary bacterial pneumonia after a viral infection. Initial troponin is negative for her chest pain. We will repeat troponin to trend it. Plan: Sputum cultures, blood cultures, then give cefepime and vancomycin. (2) Acute respiratory failure with hypoxemia Impression: This lady has documented COPD and now ends up with an RSV infection from her grandchild. Her COPD had compensated in spite of being on home meds and It did require increased oxygenation needs in the emergency room. Between Admission and today she has been at a steady 2 L/min. No change in oxygen requirement during this stay. Not better but not worse. She continues to cough, be short of breath, wheeze. Sinus congestion. But yesterday and today conversation is easier, lung exam shows it to be slightly looser. I am hoping she is turning the corner. Unfortunaely now w CXR changes of pna. Plan: Continue nasal cannula oxygen supplementation with humidification (3) COPD exacerbation Impression: Due to RSV infection. Again, I have tried to be as reassuring as possible. I know that it feels like this is going to go on forever but RSV is usually done within 7 to 10 days. She is already been here 4 days and was sick even before she got here. She will slowly start improving. She is requiring same oxygen support. Medications at home Singulair, Zyrtec, albuterol. She says she took [id number] NyQuil or DayQuil in the days before she came here. Medications now are: albuterol as needed, DuoNeb 4 times a day, Tessalon, Pulmicort, nasal Flonase, Mucinex, Deltasone 20 mg daily. Have given her 2 doses of Solu-Medrol. She seems to have improved slightly since 02/12 subjectively. Exam is slightly better today with not as tight sounding lungs. (4) Acute renal failure resolved, due to ATN from hypotension Impression: This unfortunate female had no urine output on admission. At this time I am unclear as to the cause but we have evaluated her for renal obstruction, and n one is present. She already has a low ejection fraction as baseline, was hypotensive in the emergency room at 69/39. Baseline creatinine of 0.9/1.0 was 1.8 in the emergency room already. She then received ketorolac, has remained hypotensive and creatinine went to 2.3 with no urine output. My suspicion is prerenal ATN.She may have been dehydrated due to p.o. intake problems. She has not been eating very much. Once her pressure came up, she started diuresing. February 09 she urinated 6300 cc. February 10 she urinated 3100 cc. February 11 4550 cc out and was hypotensive again on lisinopril 2.5 mg. February 12 had 3850 cc urine output.Creatinine now normal at 0.9. BP normal. Today she has had 2400 cc out. BP is low 100s. My suspicion is that of post ATN diuresis. I am worried about dehydration again at the brisk rate she is urinating. So I increased her IV fluid rate yesterday. Now with an effusion on chest x-ray and possible pulmonary edema, I will decrease maintenance IV fluids. She will get increased IV fluids with the antibiotics. Qualifiers: Acute renal failure type: unspecified Qualified Code(s): N17.9 - Acute kidney failure, unspecified (5) Diabetes mellitus type 2 in obese Impression: She is on an oral hypoglycemic at home in the form as of sulfonylurea. She is not on metformin. She has required anywhere between 1 units to 5 units before meals. On a regular basis. Lantus 5 units at night added 02/09. February 11 she was 76, 139, 156, 175 February 12 she was 207, 180, 274, 231 with the 2 doses of Solu-Medrol Today she is 92 and 85 with no Solu-Medrol Plan: No change (6) Hypotension Impression: It is unclear why this lady had become so hypotensive again on admission. In the emergency room she was 63 systolic and is responded to 2 L of IV normal saline in that her systolic went to the high 90s/low 100s. She was not felt to be septic. She is not hemorrhaging or anemic. In reviewing the medical record she has presented twice in the last year or so with hypotension. 1 was in the face of diarrhea, and the other was not clear why this lady was hypotensive and her home medications were gradually reduced. But once her blood pressure rebounded she was discharged on her home blood pressure meds. Her most recent admission was in November 2021. Again she was felt to be hypotensive in the face of taking cardiac medications while dehydrated. Troponins do not indicate OK. EKG is without change on admission. She had another low BP 02/11 that responded to an increase in IVF. Meds at home are spironolactone, Lasix, amiodarone, metoprolol, lisinopril. Here she is on amiodarone resumed on admission, Zestril resumed 02/08 at 2.5 mg a day, Toprol resumed 02/12 at 50 mg twice daily.. Pulse his 60 for the most part. But blood pressure is a little low again today. 102/37, 105/54. Plan:Decrease Toprol to 25 mg twice a day. Qualifiers: Hypotension type: unspecified hypotension type Qualified Code(s): I95.9 - Hypotension, unspecified (7) Chronic systolic congestive heart failure Impression: This unfortunate female had V. fib in 2019 requiring close to an hour of CPR and multiple cardioversions. She finally regained pulse and pressure and was transferred to [facility]. Since that time she has had an AICD in place and is also on long-term anticoagulation for this as well as intermittent atrial fibrillation.She is on beta-julius, spironolactone, Lasix, lisinopril at home. She is also on Eliquis. Her echocardiogram February 09 has mild left ventricular enlargement, moderate global hypokinesis with diastolic dysfunction indeterminate. Ejection fraction is 30 to 35%. When compared to previous echoes, December 2017 ejection fraction 50 to 55%. January 2019 ejection fraction 40 to 45%. July 2019 ejection fraction 40%. Plan: Avoid over hydrating her but she is hypotensive w brisk urine output so given 500 cc bolus and ivf @ 125 cc/hr on 02/11. In view of the chest x-ray from today with a left effusion, I will decrease her IV fluid rate as maintenance, she will have increased IV fluids because of the antibiotics. Blood pressure is a little low as mentioned above and I will reduce her Metoprolol.She is already on anticoagulation Give blood pressure parameters to her spironolactone, beta-julius and lisinopril
[2022-02-13] MEDS: CEFEPIME 1 GM in SODIUM CHLORIDE 0.9% MINIBAG 100 ML IV SCH ×2 (14:21→21:06)
[2022-02-13] MEDS ORDERED: VANCOMYCIN INJ 2 GM, VANCOMYCIN INJ 500 MG in SODIUM CHLORIDE 0.9% 500 ML IV ONE (16:00)
[2022-02-13] MEDS: HYDROmorphone 2 MG TABLET PO PRN (16:57)
[2022-02-13] MEDS: INSULIN GLARGINE-YFGN 300 UNIT/3 ML PEN SUBQ SCH (21:05)
[2022-02-13] MEDS: METOPROLOL SUCCINATE 25 MG TABLET PO SCH (21:30)
[2022-02-14] MEDS: HYDROmorphone 2 MG TABLET PO PRN ×4 (00:20→20:36)
[2022-02-14] MEDS: SODIUM CHLORIDE FLUSH 0.9% 10 ML SYRINGE IVP SCH ×3 (00:21→20:36)
[2022-02-14] MEDS ORDERED: VANCOMYCIN INJ 1 GM, VANCOMYCIN INJ 500 MG in SODIUM CHLORIDE 0.9% 500 ML IV SCH (04:00)
[2022-02-14] MEDS: SODIUM CHLORIDE FLUSH 0.9% 10 ML SYRINGE IVP PRN ×4 (04:22→21:46)
[2022-02-14] MEDS: BENZONATATE 100 MG CAPSULE PO PRN ×3 (04:33→20:36)
[2022-02-14] MEDS: methocarbamoL 500 MG TABLET PO PRN ×2 (04:33→12:47)
[2022-02-14 06:23] LABS: BASOPHILS % (AUTO) 0.5 %; EOSINOPHILS % (AUTO) 2.4 %; HCT - HEMATOCRIT 40.4 % (37.0-47.0); HGB - HEMOGLOBIN 13.2 g/dL (12.0-16.0); LYMPHOCYTES % (AUTO) 26.4 %; MEAN CORPUSCULAR HEMOGLOBIN 32.3 pg (27.0-31.0); MEAN CORPUSCULAR HGB CONC 32.7 g/dL (32.0-36.0); MEAN CORPUSCULAR VOLUME 98.8 fL (81.0-99.0); MEAN PLATELET VOLUME 9.7 fL (7.9-10.8); NEUTROPHILS % (AUTO) 59.7 %; PLT - PLATELET COUNT 262 10^3/uL (130-450); RED BLOOD COUNT 4.09 10^6/uL (4.20-5.40); RED CELL DISTRIBUTION WIDTH 13.2 % (12.0-15.0); WHITE BLOOD COUNT 14.1 x10^3/uL (4.8-10.8)
[2022-02-14 06:32] LABS: ABNORMAL LYMPHS % (MANUAL) 0 %
[2022-02-14 06:39] LABS: CALCIUM 8.8 mg/dL (8.5-10.3); CREATININE 1.1 mg/dL (0.4-1.0)
[2022-02-14 06:49] LABS: BAND NEUTROPHILS % (MANUAL) 1 %; DIFFERENTIAL COMMENT MANUAL DIFFERENTIAL; LYMPHOCYTES # (MANUAL) 4.4 10^3/uL (1.5-3.5); LYMPHOCYTES % (MANUAL) 31 %; NEUTROPHILS # (MANUAL) 7.8 10^3/uL (1.5-6.6); PLATELET ESTIMATE, MANUAL NORMAL (130-450,000) (NORMAL); PLATELET MORPHOLOGY NORMAL APPEARANCE (NORMAL); RBC MORPHOLOGY (MULTIPLE) NORMAL APPEARANCE (NORMAL); WBC MORPHOLOGY (MULTIPLE) NORMAL APPEARANCE (NORMAL)
[2022-02-14] MEDS: BUDESONIDE 0.5 MG/2 ML NEB INH SCH (06:55)
[2022-02-14] MEDS: IPRATROPIUM/ALBUTEROL 3 ML NEB INH SCH ×3 (06:55→15:32)
[2022-02-14] MEDS: CEFEPIME 1 GM in SODIUM CHLORIDE 0.9% MINIBAG 100 ML IV SCH ×3 (07:35→21:42)
[2022-02-14] MEDS: INSULIN LISPRO 300 UNIT/3 ML PEN SUBQ SCH ×4 (07:49→20:36)
[2022-02-14] MEDS: MULTIVITAMIN TABLET PO SCH (08:19)
[2022-02-14] MEDS: ASCORBIC ACID 500 MG TABLET PO SCH (08:19)
[2022-02-14] MEDS: guaiFENesin 600 MG TABLET PO SCH (08:19)
[2022-02-14] MEDS: APIXABAN 5 MG TABLET PO SCH ×2 (08:19→20:36)
[2022-02-14] MEDS: polyethylene glycoL 3350 17 GM PACKET PO SCH (08:21)
[2022-02-14] MEDS: AMIODARONE 200 MG TABLET PO SCH (08:21)
[2022-02-14] MEDS: FLUTICASONE NASAL SPRAY NAS SCH (08:23)
[2022-02-14] MEDS: SPIRONOLACTONE 25 MG TABLET PO SCH (10:06)
[2022-02-14] MEDS: METOPROLOL SUCCINATE 25 MG TABLET PO SCH ×2 (10:07→20:37)
[2022-02-14] MEDS: lisinopriL 5 MG TABLET PO SCH (10:08)
--- NOTE | 2022-02-14 14:07 | PROVIDER PROGRESS NOTE ---
Subjective - Prog Note Date Prog Note Date: 02/14/22 Prog Note Time: 14:04 - Subjective Subjective: In spite of her misery this patient is able to walk 30 feet. She steps up on a stepstool to do 1 step. PT is recommending a walker or a cane at home. But they worried the walker may not fit in her house. Current Medications - Current Medications Current Medications: Active Medications Albuterol (Albuterol Neb 2.5 Mg/3 Ml) 2.5 mg INH RTQ4H PRN PRN Reason: Wheezing Last Admin: 02/13/22 00:52 Dose: 2.5 mg Albuterol/Ipratropium (Ipratropium/Albuterol 3 Ml Neb) 3 ml INH RTQID COUNT INCLUDES THE [facility] Last Admin: 02/14/22 11:21 Dose: 3 ml Amiodarone HCl (Amiodarone 200 Mg Tablet) 100 mg PO DAILY COUNT INCLUDES THE [facility] Last Admin: 02/14/22 08:21 Dose: 100 mg Apixaban (Apixaban 5 Mg Tablet) 5 mg PO BID ROMAN Last Admin: 02/14/22 08:19 Dose: 5 mg Ascorbic Acid (Ascorbic Acid 500 Mg Tablet) 500 mg PO DAILY COUNT INCLUDES THE [facility] Last Admin: 02/14/22 08:19 Dose: 500 mg Benzonatate (Benzonatate 100 Mg Capsule) 100 mg PO TID PRN PRN Reason: Cough Last Admin: 02/14/22 12:47 Dose: 100 mg Budesonide (Budesonide 0.5 Mg/2 Ml Neb) 0.5 mg INH RTBID COUNT INCLUDES THE [facility] Last Admin: 02/14/22 06:55 Dose: 0.5 mg Fluticasone Propionate (Fluticasone Nasal [place]) 2 sprays CLARISA DAILY COUNT INCLUDES THE [facility] Last Admin: 02/14/22 08:23 Dose: 2 spr Guaifenesin (Guaifenesin 600 Mg Tablet) 600 mg PO DAILY COUNT INCLUDES THE [facility] Last Admin: 02/14/22 08:19 Dose: 600 mg Hydromorphone HCl (Hydromorphone 2 Mg Tablet) 2 mg PO Q6HR PRN PRN Reason: Severe Pain Last Admin: 02/14/22 08:19 Dose: 2 mg Cefepime HCl 1 gm/ Sodium (Chloride) 100 mls @ 200 mls/hr IV TID COUNT INCLUDES THE [facility] Last Admin: 02/14/22 13:44 Dose: 200 mls/hr Vancomycin HCl 2 gm/ Sodium (Chloride) 500 mls @ 250 mls/hr IV Q24H COUNT INCLUDES THE [facility] Insulin Glargine-yfgn (Insulin Glargine-Yfgn 300 Unit/3 Ml Pen) 5 unit SUBQ QPM COUNT INCLUDES THE [facility] Last Admin: 02/13/22 21:05 Dose: 5 unit Insulin Human Lispro (Insulin Lispro 300 Unit/3 Ml Pen) 2 - 10 unit SUBQ 0800,1200,1700,2100 COUNT INCLUDES THE [facility]; Protocol Last Admin: 02/14/22 11:49 Dose: Not Given Lisinopril (Lisinopril 5 Mg Tablet) 2.5 mg PO DAILY COUNT INCLUDES THE [facility] Last Admin: 02/14/22 10:08 Dose: Not Given Methocarbamol (Methocarbamol 500 Mg Tablet) 500 mg PO Q6HR PRN PRN Reason: Spasms Last Admin: 02/14/22 12:47 Dose: 500 mg Metoprolol Succinate (Metoprolol Succinate 25 Mg Tablet) 25 mg PO BID COUNT INCLUDES THE [facility] Last Admin: 02/14/22 10:07 Dose: Not Given Montelukast Sodium (Montelukast 10 Mg Tablet) 10 mg PO QPM PRN PRN Reason: Allergy Symptoms Multivitamins (Multivitamin Tablet) 1 tab PO DAILYWM COUNT INCLUDES THE [facility] Last Admin: 02/14/22 08:19 Dose: 1 tab Nitroglycerin (Nitroglycerin Sl 0.4 Mg Tablet) 0.4 mg SL Q5MIN PRN PRN Reason: Chest Pain Last Admin: 02/13/22 11:04 Dose: 0.4 mg Polyethylene Glycol (Polyethylene Glycol 3350 17 Gm Packet) 17 gm PO DAILY COUNT INCLUDES THE [facility] Last Admin: 02/14/22 08:21 Dose: Not Given Prochlorperazine Edisylate (Prochlorperazine 10 Mg/2 Ml Vial) 10 mg IVP Q6HR PRN PRN Reason: Nausea / Vomiting Last Admin: 02/11/22 17:55 Dose: 10 mg Prochlorperazine Maleate (Prochlorperazine 5 Mg Tablet) 5 mg PO Q6HR PRN PRN Reason: Nausea / Vomiting Last Admin: 02/14/22 00:21 Dose: 5 mg Sodium Chloride (Sodium Chloride Flush 0.9% 10 Ml Syringe) 10 ml IVP PRN PRN PRN Reason: NEEDED PER PROVIDER ORDERS Last Admin: 02/14/22 13:44 Dose: 10 ml Sodium Chloride (Sodium Chloride Flush 0.9% 10 Ml Syringe) 10 ml IVP 0100,0900,1700 COUNT INCLUDES THE [facility] Last Admin: 02/14/22 08:23 Dose: 10 ml Spironolactone (Spironolactone 25 Mg Tablet) 25 mg PO DAILY COUNT INCLUDES THE [facility] Last Admin: 02/14/22 10:06 Dose: 25 mg Furosemide 40 mg PO BIDDIURETIC 09/07/20 Apixaban [Eliquis] 5 mg PO BID 10/24/20 Amiodarone [Pacerone] 100 mg PO DAILY 02/04/21 Nitroglycerin [Nitrostat] 0.4 mg PO Q5MIN PRN 03/16/21 EPINEPHrine [Epinephrine] 0.3 mg IM PRN PRN 12/11/21 Glipizide [Glipizide ER] 5 mg PO DAILY 12/11/21 Metoprolol Succinate [Toprol Xl] 50 mg PO BID 12/11/21 Spironolactone [Aldactone] 25 mg PO DAILY 12/11/21 lisinopriL [Zestril] 5 mg PO DAILY 12/11/21 Cetirizine [ZyrTEC] 10 mg PO DAILY PRN 02/08/22 Fluticasone [Flonase] 2 sprays CLARISA DAILY 02/08/22 Montelukast [Singulair] 10 mg PO QPM PRN 02/08/22 Objective - Vital Signs/Intake & Output Reviewed Vital Signs: Yes Vital Signs: Vital Signs x48h Temp Pulse Pulse Resp BP Pulse Ox O2 Flow Rate 02/14/22 11:20 56 L 18 2 02/14/22 11:18 59 L 19 104/47 L 90 L 2 02/14/22 10:05 62 103/45 L 02/14/22 09:40 60 106/47 L 02/14/22 09:08 60 106/47 L 02/14/22 08:24 60 94/41 L 02/14/22 07:25 36.6 C 63 20 103/46 L 92 2 02/14/22 06:55 55 L 18 2 Intake & Output: Intake & Output 02/11/22 02/12/22 02/13/22 02/14/22 23:59 23:59 23:59 23:59 Intake Total 1830 4100 4686.417 1800 Output Total 4550 3850 4225 3100 Balance -2720 250 461.417 -1300 - Lab Results Fish Bones: 02/14/22 05:40 02/14/22 05:40 Other Labs: Lab Results x24hrs 02/14/22 02/14/22 02/14/22 Range/Units 11:16 07:23 05:40 WBC (4.8-10.8) x10^3/uL RBC (4.20-5.40) 10^6/uL Hgb (12.0-16.0) g/dL Hct (37.0-47.0) % MCV (81.0-99.0) fL MCH (27.0-31.0) pg MCHC (32.0-36.0) g/dL RDW (12.0-15.0) % Plt Count (130-450) 10^3/uL MPV (7.9-10.8) fL Neut # (Auto) Lymph # (Auto) Steele # (Auto) Eos # (Auto) Baso # (Auto) Absolute Nucleated RBC Total Counted Band Neuts % (Manual) (0 - 10) % Abnorm Lymph % (Manual) % Nucleated RBC % Neutrophils # (Manual) (1.5-6.6) 10^3/uL Lymphocytes # (Manual) (1.5-3.5) 10^3/uL Monocytes # (Manual) (0.0-1.0) 10^3/uL Eosinophils # (Manual) (0-0.7) 10^3/uL Basophils # (Manual) (0-0.1) 10^3/uL Differential Comment WBC Morphology (NORMAL) Platelet Estimate (NORMAL) Platelet Morphology (NORMAL) RBC Morph Micro Appear (NORMAL) Sodium 138 (135-145) mmol/L Potassium 4.0 (3.5-5.0) mmol/L Chloride 105 (101-111) mmol/L Carbon Dioxide 29 (21-32) mmol/L Anion Gap 4.0 L (6-13) BUN 28 H (6-20) mg/dL Creatinine 1.1 H (0.4-1.0) mg/dL Estimated GFR (MDRD) 51 L (>89) Glucose 127 H (70-100) mg/dL POC Whole Bld Glucose 99 85 (70 - 100) mg/dL Calcium 8.8 (8.5-10.3) mg/dL Troponin I High Sens (2.3-14.8) ng/L 02/14/22 02/13/22 02/13/22 Range/Units 05:40 20:21 16:33 WBC 14.1 H (4.8-10.8) x10^3/uL RBC 4.09 L (4.20-5.40) 10^6/uL Hgb 13.2 (12.0-16.0) g/dL Hct 40.4 (37.0-47.0) % MCV 98.8 (81.0-99.0) fL MCH 32.3 H (27.0-31.0) pg MCHC 32.7 (32.0-36.0) g/dL RDW 13.2 (12.0-15.0) % Plt Count 262 (130-450) 10^3/uL MPV 9.7 (7.9-10.8) fL Neut # (Auto) Not Reportable Lymph # (Auto) Not Reportable Steele # (Auto) Not Reportable Eos # (Auto) Not Reportable Baso # (Auto) Not Reportable Absolute Nucleated RBC Not Reportable Total Counted 100 Band Neuts % (Manual) 1 (0 - 10) % Abnorm Lymph % (Manual) 0 % Nucleated RBC % Not Reportable Neutrophils # (Manual) 7.8 H (1.5-6.6) 10^3/uL Lymphocytes # (Manual) 4.4 H (1.5-3.5) 10^3/uL Monocytes # (Manual) 1.0 (0.0-1.0) 10^3/uL Eosinophils # (Manual) 1.0 H (0-0.7) 10^3/uL Basophils # (Manual) 0.0 (0-0.1) 10^3/uL Differential Comment MANUAL DIFFERENTIAL WBC Morphology NORMAL APPEARANCE (NORMAL) Platelet Estimate NORMAL (130-450,000) (NORMAL) Platelet Morphology NORMAL APPEARANCE (NORMAL) RBC Morph Micro Appear NORMAL APPEARANCE (NORMAL) Sodium (135-145) mmol/L Potassium (3.5-5.0) mmol/L Chloride (101-111) mmol/L Carbon Dioxide (21-32) mmol/L Anion Gap (6-13) BUN (6-20) mg/dL Creatinine (0.4-1.0) mg/dL Estimated GFR (MDRD) (>89) Glucose (70-100) mg/dL POC Whole Bld Glucose 99 112 H (70 - 100) mg/dL Calcium (8.5-10.3) mg/dL Troponin I High Sens (2.3-14.8) ng/L 02/13/22 Range/Units 14:00 WBC (4.8-10.8) x10^3/uL RBC (4.20-5.40) 10^6/uL Hgb (12.0-16.0) g/dL Hct (37.0-47.0) % MCV (81.0-99.0) fL MCH (27.0-31.0) pg MCHC (32.0-36.0) g/dL RDW (12.0-15.0) % Plt Count (130-450) 10^3/uL MPV (7.9-10.8) fL Neut # (Auto) Lymph # (Auto) Steele # (Auto) Eos # (Auto) Baso # (Auto) Absolute Nucleated RBC Total Counted Band Neuts % (Manual) (0 - 10) % Abnorm Lymph % (Manual) % Nucleated RBC % Neutrophils # (Manual) (1.5-6.6) 10^3/uL Lymphocytes # (Manual) (1.5-3.5) 10^3/uL Monocytes # (Manual) (0.0-1.0) 10^3/uL Eosinophils # (Manual) (0-0.7) 10^3/uL Basophils # (Manual) (0-0.1) 10^3/uL Differential Comment WBC Morphology (NORMAL) Platelet Estimate (NORMAL) Platelet Morphology (NORMAL) RBC Morph Micro Appear (NORMAL) Sodium (135-145) mmol/L Potassium (3.5-5.0) mmol/L Chloride (101-111) mmol/L Carbon Dioxide (21-32) mmol/L Anion Gap (6-13) BUN (6-20) mg/dL Creatinine (0.4-1.0) mg/dL Estimated GFR (MDRD) (>89) Glucose (70-100) mg/dL POC Whole Bld Glucose (70 - 100) mg/dL Calcium (8.5-10.3) mg/dL Troponin I High Sens 6.9 (2.3-14.8) ng/L ABX Reporting Has patient been on IV antibiotics over the past 48 hours?: Yes Assessment/Plan - Problem List (1) Secondary bacterial pneumonia Impression: She complained of chest pain that radiated to her left arm. I did a chest x-ray EKG and troponin. With the chest x-ray result, I think she is developed a secondary bacterial pneumonia after a viral infection.Blood culture from February 13 is negative. Preliminary sputum culture has gram-positive cocci in pairs but no bacterial identification. I did trend her troponins. Her troponin with chest pain was 7.1, and the second 1 was 6.9. In retrospect I think her chest pain was due to the pleural effusion. Plan: Cefepime and vancomycin day 2 (2) Acute respiratory failure with hypoxemia Impression: This lady has documented COPD and now ends up with an RSV infection from her grandchild. Her COPD had decompensated in spite of being on home meds and tt did require increased oxygenation needs in the emergency room. Between Admission and today she has been at a steady 2 L/min. No change in oxygen requirement during this stay. Not better but not worse. She continues to cough, be short of breath, wheeze. Sinus congestion. By 02/12, conversation is easier, lung exam shows it to be slightly looser. I am hoping she is turning the corner. Unfortunately she developed cp and a chest xray showed 02/13 demonstrated changes of pna. Plan: Continue nasal cannula oxygen supplementation with humidification (3) COPD exacerbation Impression: Due to RSV infection. Slow improvement with lots of tears because she is so truly miserable. Coughing caused rib pain and back spasms. I started dilaudid 02/13 for cough suppression and back pain She is requiring same oxygen support. Medications at home Singulair, Zyrtec, albuterol. She says she took [id number] NyQuil or DayQuil in the days before she came here. Medications now are: albuterol as needed, DuoNeb 4 times a day, Tessalon, Pulmicort, nasal Flonase, Mucinex. She was on deltasone 20 mg daily and then I gave her 2 doses of Solu-Medrol. She seems to have improved slightly since 02/12 subjectively. Exam is slightly better with not as tight sounding lungs. (4) Acute renal failure resolved, due to ATN from hypotension Impression: This unfortunate female had no urine output on admission. At this time I am unclear as to the cause but we have evaluated her for renal obstruction, and none is present. She already has a low ejection fraction as baseline, was hypotensive in the emergency room at 69/39. Baseline creatinine of 0.9/1.0 was 1.8 in the emergency room already. She then received ketorolac, has remained hypotensive and creatinine went to 2.3 with no urine output. My suspicion is prerenal ATN. She may have been dehydrated due to p.o. intake problems. She has not been eating very much. Creatinine came down to 0.9 on February 12. Today she is 1.1. I do have her on Zestril 2.5, Toprol 25 twice daily and Aldactone 25 daily for her congestive heart failure. I have parameters in place to hold her medications if her blood pressure is below 110 systolic. Or pulse less than 60. Medications were held again this morning because her blood pressure is again low. She is 106/47, 103/45, 104/47. Urine output yesterday was 4225. By 2 PM today she is down 3100 cc of urine output. Overall fluid status today is 1300 cc negative. I stopped her IV fluids yesterday Because her creatinine was normal and her repeat chest x-ray showed pleural effusion with CHF pattern. Her pattern for the last few days is to be negative in her balance. I think she has a post ATN diuresis and I was giving her IV fluids to keep up with a negative fluid balance. With today's hypotension I wonder if she still needs maintenance medication after all. I had thought that the IV fluids associated with her antibiotics would be enough intake as well as her p.o. intake. But I hesitate. Chest x-ray showed new pleural effusion, CHF pattern. It is just a difficult balance for her right now. As long as she is pushing p.o. fluids, will hold off on IV fluids. Qualifiers: Acute renal failure type: unspecified Qualified Code(s): N17.9 - Acute kidney failure, unspecified (5) Diabetes mellitus type 2 in obese Impression: She is on an oral hypoglycemic at home in the form as of sulfonylurea. She is not on metformin. She has required anywhere between 1 units to 5 units before meals. On a regular basis. Lantus 5 units at night added 02/09. February 11 she was 76, 139, 156, 175 February 12 she was 207, 180, 274, 231 with the 2 doses of Solu-Medrol February 13, , 85, 112, 99 February 14 85 and 99 Plan: stop the lantus (6) Hypotension Impression: It is unclear why this lady had become so hypotensive again on admission. In the emergency room she was 63 systolic and is responded to 2 L of IV normal saline in that her systolic went to the high 90s/low 100s. She was not felt to be septic. She is not hemorrhaging or anemic. In reviewing the medical record she has presented twice in the last year or so with hypotension. 1 was in the face of diarrhea, and the other was not clear why this lady was hypotensive and her home medications were gradually reduced. But once her blood pressure rebounded she was discharged on her home blood pressure meds. Her most recent admission was in November 2021. Again she was felt to be hypotensive in the face of taking cardiac medications while dehydrated. Troponins do not indicate MS. EKG is without change on admission. She had another low BP 02/11 that responded to an increase in IVF. Meds at home are spironolactone, Lasix, amiodarone, metoprolol, lisinopril. Here she is on amiodarone resumed on admission, Zestril resumed 02/08 at 2.5 mg a day, Toprol resumed 02/12 at 50 mg twice daily.. Pulse has been 60 for the most part. I decreased toprol to 25 mg bid 02/13, But blood pressure was little low again today at 102/37, 105/54. Toprol and zestril held today. Qualifiers: Hypotension type: unspecified hypotension type Qualified Code(s): I95.9 - Hypotension, unspecified (7) Chronic systolic congestive heart failure Impression: This unfortunate female had V. fib in 2019 requiring close to an hour of CPR and multiple cardioversions. She finally regained pulse and pressure and was transferred to [facility]. Since that time she has had an AICD in place and is also on long-term anticoagulation for this as well as intermittent atrial fibrillation.She is on beta-julius, spironolactone, Lasix, lisinopril at home. She is also on Eliquis. Her echocardiogram February 09 has mild left ventricular enlargement, moderate global hypokinesis with diastolic dysfunction indeterminate. Ejection fraction is 30 to 35%. When compared to previous echoes, December 2017 ejection fraction 50 to 55%. January 2019 ejection fraction 40 to 45%. July 2019 ejection fraction 40%. Plan: Avoid over hydrating her but she is hypotensive w brisk urine output so given 500 cc bolus and ivf @ 125 cc/hr on 02/11. In view of the chest x-ray from 02/13 with a left effusion, I decreased her IV fluid rate as maintenance taking into account she would have IV fluids because of the antibiotics. For now no further changes today. Will watch BP, urine output, creat.
[2022-02-15] MEDS: methocarbamoL 500 MG TABLET PO PRN ×3 (00:13→12:11)
[2022-02-15] MEDS: SODIUM CHLORIDE FLUSH 0.9% 10 ML SYRINGE IVP SCH ×3 (00:13→18:12)
[2022-02-15] MEDS: VANCOMYCIN INJ 2 GM in SODIUM CHLORIDE 0.9% 500 ML IV SCH (04:11)
[2022-02-15] MEDS: SODIUM CHLORIDE FLUSH 0.9% 10 ML SYRINGE IVP PRN (04:11)
[2022-02-15] MEDS: IPRATROPIUM/ALBUTEROL 3 ML NEB INH SCH ×5 (05:07→21:20)
[2022-02-15] MEDS: BUDESONIDE 0.5 MG/2 ML NEB INH SCH ×3 (05:07→21:20)
[2022-02-15 05:12] LABS: BASOPHILS % (AUTO) 0.7 %; EOSINOPHILS % (AUTO) 3.4 %; HCT - HEMATOCRIT 39.4 % (37.0-47.0); HGB - HEMOGLOBIN 12.9 g/dL (12.0-16.0); LYMPHOCYTES % (AUTO) 24.9 %; MEAN CORPUSCULAR HEMOGLOBIN 32.4 pg (27.0-31.0); MEAN CORPUSCULAR HGB CONC 32.7 g/dL (32.0-36.0); MEAN PLATELET VOLUME 9.6 fL (7.9-10.8); MONOCYTES % (AUTO) 7.7 %; NEUTROPHILS % (AUTO) 58.9 %; PLT - PLATELET COUNT 222 10^3/uL (130-450); RED BLOOD COUNT 3.98 10^6/uL (4.20-5.40); RED CELL DISTRIBUTION WIDTH 13.1 % (12.0-15.0); WHITE BLOOD COUNT 13.4 x10^3/uL (4.8-10.8)
[2022-02-15 05:13] LABS: ABNORMAL LYMPHS % (MANUAL) 0 %; BAND NEUTROPHILS % (MANUAL) 0 %
[2022-02-15 05:18] LABS: CALCIUM 8.7 mg/dL (8.5-10.3); POTASSIUM 4.1 mmol/L (3.5-5.0)
[2022-02-15 05:30] LABS: DIFFERENTIAL COMMENT MANUAL DIFFERENTIAL; LYMPHOCYTES # (MANUAL) 4.6 10^3/uL (1.5-3.5); LYMPHOCYTES % (MANUAL) 34 %; METAMYELOCYTES % (MANUAL) 2 %; MONOCYTES # (MANUAL) 0.8 10^3/uL (0.0-1.0); MYELOCYTES % (MANUAL) 2 %; NEUTROPHILS # (MANUAL) 7.5 10^3/uL (1.5-6.6); PLATELET ESTIMATE, MANUAL NORMAL (130-450,000) (NORMAL); PLATELET MORPHOLOGY NORMAL APPEARANCE (NORMAL); RBC MORPHOLOGY (MULTIPLE) NORMAL APPEARANCE (NORMAL); WBC MORPHOLOGY (MULTIPLE) NORMAL APPEARANCE (NORMAL)
[2022-02-15] MEDS: BENZONATATE 100 MG CAPSULE PO PRN ×2 (06:08→16:31)
[2022-02-15] MEDS: HYDROmorphone 2 MG TABLET PO PRN ×3 (06:13→18:11)
[2022-02-15] MEDS: CEFEPIME 1 GM in SODIUM CHLORIDE 0.9% MINIBAG 100 ML IV SCH ×3 (06:40→21:45)
[2022-02-15] MEDS: FLUTICASONE NASAL SPRAY NAS SCH (07:51)
[2022-02-15] MEDS: SPIRONOLACTONE 25 MG TABLET PO SCH (07:52)
[2022-02-15] MEDS: guaiFENesin 600 MG TABLET PO SCH ×2 (07:52→21:07)
[2022-02-15] MEDS: MULTIVITAMIN TABLET PO SCH (07:52)
[2022-02-15] MEDS: AMIODARONE 200 MG TABLET PO SCH (07:52)
[2022-02-15] MEDS: ASCORBIC ACID 500 MG TABLET PO SCH (07:52)
[2022-02-15] MEDS: APIXABAN 5 MG TABLET PO SCH ×2 (07:52→21:06)
[2022-02-15] MEDS: INSULIN LISPRO 300 UNIT/3 ML PEN SUBQ SCH ×4 (07:53→21:08)
[2022-02-15] MEDS: lisinopriL 5 MG TABLET PO SCH (09:47)
[2022-02-15] MEDS: polyethylene glycoL 3350 17 GM PACKET PO SCH (09:47)
[2022-02-15] MEDS: METOPROLOL SUCCINATE 25 MG TABLET PO SCH ×2 (09:47→21:08)
--- NOTE | 2022-02-15 16:59 | PROVIDER PROGRESS NOTE ---
Assessment/Plan - Problem List (1) Secondary bacterial pneumonia Assessment/Plan: When she complained of chest pain that radiated to her left arm, we did a chest x-ray EKG and troponin. With the chest x-ray result, she has developed a secondary bacterial pneumonia after a viral infection. Blood culture from February 13 is negative. Preliminary sputum culture has gram-positive cocci in pairs but no bacterial identification. We did trend her troponins which were 7.1, and then 6.9. Possibly her chest pain was due to the pleural effusion. Continue with Mucinex and make it twice daily not just daily Continue Cefepime and vancomycin, 7 days planned (2) Acute respiratory failure with hypoxemia Impression: This lady has documented COPD and now ends up with an RSV infection from her grandchild. Her COPD had decompensated in spite of being on home meds and she d id require increased oxygenation needs in the emergency room. Between Admission and today she has been at a steady 2 L/min. No change in oxygen requirement during this stay. Not better but not worse. She continues to cough, be short of breath, wheeze and has sinus congestion. By 02/12, conversation is easier, lung exam shows it to be slightly looser. Unfortunately then she developed cp and a chest xrayon 02/13 demonstrated a pneumonia Continue nasal cannula oxygen supplementation with humidification Continue to treat her underlying COPD, tghe pneumonia and RSV sx (3) COPD exacerbation Impression: Due to RSV infection. Slow improvement (with lots of tears) because she is so truly miserable. Coughing caused rib pain and back spasms. We started dilaudid 02/13 for rib cage and back pain She is requiring same oxygen support. Medications at home were Singulair, Zyrtec, albuterol. She says she took [id number] NyQuil or DayQuil in the days before she came here. Medications now are: albuterol as needed, DuoNeb 4 times a day, Tessalon, Pulmicort, nasal Flonase, Mucinex. She was on deltasone 20 mg daily and then I gave her 2 doses of Solu-Medrol. She seems to have improved slightly since 02/12 subjectively. Exam is slightly better with not as tight sounding lungs. We will continue with several more days of Solu-Medrol. (4) Diabetes mellitus type 2 in obese Impression: She is on an oral hypoglycemic at home in the form as of sulfonylurea. She is not on metformin. Since admission, she has required anywhere between 1 units to 5 units before meals on a regular basis. Lantus 5 units at night added 02/09. February 11 glu was 76, 139, 156, 175 February 12 she was 207, 180, 274, 231 with the 2 doses of Solu-Medrol February 13, 92, 85, 112, 99 February 14 85 and We have stopped the lantus. Continue fingerstick checks and sliding scale coverage if need (5) Hypotension Impression: It is unclear why this lady had become so hypotensive again on admission. In the emergency room she was 63 systolic and she responded to 2 L of IV normal saline in that her systolic went to the high 90s/low 100s. She was not felt to be septic. She is not hemorrhaging or anemic. In reviewing the medical record she has presented twice in the last year or so with hypotension. Once was in the face of diarrhea, and the other was not clear why this lady was hypotensive and her home medications were gradually reduced. But once her blood pressure rebounded she was discharged on her home blood pressure meds. Her most recent admission was in November 2021. Again she was felt to be hypotensive in the face of taking cardiac medications while dehydrated. Troponins do not indicate MD. EKG is without change on admission. She had another low BP 02/11 that responded to an increase in IVF. Meds at home were spironolactone, Lasix, amiodarone, metoprolol, lisinopril. Here she is on amiodarone resumed on admission, Zestril resumed 02/08 at 2.5 mg a day, Toprol resumed 02/12 at 50 mg twice daily.. Pulse has been 60 for the most part. We decreased toprol to 25 mg bid 02/13, but blood pressure has colette soft so Toprol and zestril held when needed. We will continue with several more days of Solu-Medrol. We will check a morning cortisol level. Qualifiers: Hypotension type: unspecified hypotension type Qualified Code(s): I95.9 - Hypotension, unspecified (6) Chronic systolic congestive heart failure Impression: This unfortunate female had V. fib in 2019 requiring close to an hour of CPR and multiple cardioversions. She finally regained pulse and pressure and was transferred to [facility]. Since that time she has had an A ICD in place and is also on long-term anticoagulation for this as well as intermittent atrial fibrillation.She is on beta-julius, spironolactone, Lasix, lisinopril at home. She is also on Eliquis. Her echocardiogram February 09 has mild left ventricular enlargement, moderate global hypokinesis with diastolic dysfunction indeterminate. Ejection fraction is 30 to 35%. When compared to previous echoes, December 2017 ejection fraction 50 to 55%. January 2019 ejection fraction 40 to 45%. July 2019 ejection fraction 40%. Plan: We are trying to avoid over hydrating her but she is hypotensive w brisk urine output so given 500 cc bolus and ivf @ 125 cc/hr on 02/11. In view of the chest x-ray from 02/13 with a left effusion, we decreased her IV maintenance fluid rate, taking into account she will have IV fluids from the antibiotics. Will watch BP, urine output, creat. (7) Pain Impression: She now complains of severe pain in the lower rib cage/ diaphragm area and believes it is from her severe coughing. She is allergic to morphine with a "respiratory" side effect listed. She is already on Dilaudid and this pain is not controlled. Will add tramadol prn pain We will increase her expectorant of Mucinex from daily to twice daily. Continue with Tessalon Perles for cough suppression and Robitussin as needed (8) Morbid obesity, BMI 40-45 Impression: As per Hx. (9) Acute renal failure resolved, due to ATN from hypotension Impression: This unfortunate female had no urine output on admission. We have evaluated her for renal obstruction, and none is present. She already has a low ejection fraction as baseline, was hypotensive in the emergency room at 69/39. Baseline creatinine of 0.9/1.0 was 1.8 in the emergency room already. She then received ketorolac, has remained hypotensive and creatinine went to 2.3 with no urine output. We suspect prerenal ATN. She may have been dehydrated due to p.o. intake problems. She has not been eating very much. Creatinine came down to 0.9 on February 12. She is on Zestril 2.5, Toprol twice daily and Aldactone 25 daily for her congestive heart failure. We have parameters in place to hold her medications if her blood pressure is below 110 systolic, or pulse less than 60. Her pattern for the last few days is to be negative in her balance. We think she had a post ATN diuresis and we were giving her IV fluids to keep up with a negative fluid balance. Chest x-ray showed new pleural effusion, and CHF pattern. She has difficult fluid balance right now. As long as she is taking p.o. fluids, will hold off on IV fluids. Avoid nephrotoxins. Follow BMP daily Qualifiers: Acute renal failure type: unspecified Qualified Code(s): N17.9 - Acute kidney failure, unspecified - Current Meds Current Meds: Current Medications Generic Name Dose Route Start Last Admin Trade Name Freq PRN Reason Stop Dose Admin Albuterol 2.5 mg 02/08/22 00:46 02/13/22 00:52 Albuterol Neb 2.5 Mg/3 Ml INH 2.5 mg RTQ4H PRN Administration Wheezing Albuterol/Ipratropium 3 ml 02/09/22 11:00 02/15/22 16:05 Ipratropium/Albuterol 3 Ml Neb INH 3 ml RTQID ROMAN Administration Amiodarone HCl 100 mg 02/08/22 09:00 02/15/22 07:52 Amiodarone 200 Mg Tablet PO 100 mg DAILY ROMAN Administration Apixaban 5 mg 02/08/22 09:00 02/15/22 07:52 Apixaban 5 Mg Tablet PO 5 mg BID ROMAN Administration Ascorbic Acid 500 mg 02/08/22 09:00 02/15/22 07:52 Ascorbic Acid 500 Mg Tablet PO 500 mg DAILY ROMAN Administration Benzonatate 100 mg 02/08/22 00:44 02/15/22 16:31 Benzonatate 100 Mg Capsule PO 100 mg TID PRN Administration Cough Budesonide 0.5 mg 02/08/22 00:40 02/15/22 07:15 Budesonide 0.5 Mg/2 Ml Neb INH 0.5 mg RTBID ROMAN Administration Fluticasone Propionate 2 sprays 02/09/22 09:00 02/15/22 07:51 Fluticasone Nasal [place] CLARISA 2 spr DAILY ROMAN Administration Hydromorphone HCl 2 mg 02/13/22 16:34 02/15/22 12:11 Hydromorphone 2 Mg Tablet PO 2 mg Q6HR PRN Administration Severe Pain Cefepime HCl 1 gm/ Sodium 100 mls @ 200 mls/hr 02/13/22 14:00 02/15/22 14:16 Chloride IV Infused TID [facility] Infusion Vancomycin HCl 2 gm/ Sodium 500 mls @ 250 mls/hr 02/15/22 04:00 02/15/22 06:41 Chloride IV Infused Q24H [facility] Infusion Insulin Human Lispro 2 - 10 unit 02/13/22 08:00 02/15/22 12:10 Insulin Lispro 300 Unit/3 Ml Pen SUBQ Not Given 0800,1200,1700,2100 [facility] Protocol Lisinopril 2.5 mg 02/08/22 12:27 02/15/22 09:47 Lisinopril 5 Mg Tablet PO Not Given DAILY [facility] Methocarbamol 500 mg 02/09/22 09:03 02/15/22 12:11 Methocarbamol 500 Mg Tablet PO 500 mg Q6HR PRN Administration Spasms Metoprolol Succinate 25 mg 02/13/22 21:00 02/15/22 09:47 Metoprolol Succinate 25 Mg Tablet PO Not Given BID [facility] Multivitamins 1 tab 02/08/22 08:00 02/15/22 07:52 Multivitamin Tablet PO 1 tab DAILYWM [facility] Administration Nitroglycerin 0.4 mg 02/13/22 10:55 02/13/22 11:04 Nitroglycerin Sl 0.4 Mg Tablet SL 0.4 mg Q5MIN PRN Administration Chest Pain Polyethylene Glycol 17 gm 02/13/22 09:00 02/15/22 09:47 Polyethylene Glycol 3350 17 Gm Packet PO Not Given DAILY [facility] Prochlorperazine Edisylate 10 mg 02/08/22 12:57 02/11/22 17:55 Prochlorperazine 10 Mg/2 Ml Vial IVP 10 mg Q6HR PRN Administration Nausea / Vomiting Prochlorperazine Maleate 5 mg 02/08/22 12:57 02/14/22 00:21 Prochlorperazine 5 Mg Tablet PO 5 mg Q6HR PRN Administration Nausea / Vomiting Sodium Chloride 10 ml 02/08/22 00:33 02/15/22 04:11 Sodium Chloride Flush 0.9% 10 Ml Syringe IVP 10 ml PRN PRN Administration NEEDED PER PROVIDER ORDERS Sodium Chloride 10 ml 02/08/22 01:00 02/15/22 09:47 Sodium Chloride Flush 0.9% 10 Ml Syringe IVP Not Given 0100,0900,1700 ROMAN Spironolactone 25 mg 02/08/22 12:28 02/15/22 07:52 Spironolactone 25 Mg Tablet PO 25 mg DAILY ROMAN Administration - Lab Result Fish Bone Diagrams: 02/15/22 04:54 02/15/22 04:54 - Additional Planning My Orders: My Active Orders 02/15/22 16:42 traMADol [Ultram] 50 mg PO Q4HR PRN 02/15/22 21:00 Montelukast [Singulair] 10 mg PO QPM guaiFENesin [Mucinex] 600 mg PO BID Subjective - Subjective Patient Reports: Pain (She has severe pain in the lower rib cage area, worsened when she coughs which is still frequently. She remains short of breath needs supplemental oxygen.) Objective Vital Signs: Vital Signs - 24 hr 02/14/22 02/14/22 02/15/22 22:50 23:58 07:19 Temperature 36.4 C L Heart Rate 59 L Heart Rate [ 60 Brachial] Heart Rate [ Radial] Respiratory 20 20 Rate Blood Pressure 111/50 L [Right Brachial artery] O2 Saturation 95 If not protocol 3 3 3 : Oxygen Flow, liters/minute 02/15/22 02/15/22 02/15/22 07:30 07:55 12:37 Temperature 36.4 C L Heart Rate 80 Heart Rate [ 58 L Brachial] Heart Rate [ Radial] Respiratory 20 18 Rate Blood Pressure 94/52 L [Right Brachial artery] O2 Saturation 93 If not protocol 3 3 3 : Oxygen Flow, liters/minute 02/15/22 02/15/22 16:04 16:06 Temperature 36.7 C Heart Rate 86 Heart Rate [ Brachial] Heart Rate [ 75 Radial] Respiratory 18 19 Rate Blood Pressure 107/36 L [Right Brachial artery] O2 Saturation 96 If not protocol 3 3 : Oxygen Flow, liters/minute Oxygen O2 Source [With Activity] Room air O2 Source Nasal cannula Oxygen Flow Rate 3 I&O (Last 24 Hrs): Intake and Output Totals x24h 1002/14/22 02/15/22 23:59 23:59 23:59 Intake Total 6031.484 2703 1420 Output Total 2788 0709 8892 Balance 279.184 -1181 -6640 General: Moderate distress HEENT: Mucous membr. moist/pink, Other (wearing O2 per n.c.) Neck: Supple Neuro: Alert, Non Focal Cardiovascular: Regular rate, Other (Distant heart sounds due to obesity and wheeze) Respiratory: Wheezes Abdomen: Soft (Obese with pannus) Extremities: No edema, No tenderness/swelling - Results Results: Laboratory Results WBC 13.4 x10^3/uL (4.8-10.8) H 02/15/22 04:54 RBC 3.98 10^6/uL (4.20-5.40) L 02/15/22 04:54 Hgb 12.9 g/dL (12.0-16.0) 02/15/22 04:54 Hct 39.4 % (37.0-47.0) 02/15/22 04:54 MCV 99.0 fL (81.0-99.0) 02/15/22 04:54 MCH 32.4 pg (27.0-31.0) H 02/15/22 04:54 MCHC 32.7 g/dL (32.0-36.0) 02/15/22 04:54 RDW 13.1 % (12.0-15.0) 02/15/22 04:54 Plt Count 222 10^3/uL (130-450) 02/15/22 04:54 MPV 9.6 fL (7.9-10.8) 02/15/22 04:54 Neut # (Auto) Not Reportable 02/15/22 04:54 Lymph # (Auto) Not Reportable 02/15/22 04:54 [place] # (Auto) Not Reportable 02/15/22 04:54 Eos # (Auto) Not Reportable 02/15/22 04:54 Baso # (Auto) Not Reportable 02/15/22 04:54 Absolute Nucleated RBC Not Reportable 02/15/22 04:54 Total Counted 100 02/15/22 04:54 Band Neuts % (Manual) 0 % (0-10) 02/15/22 04:54 Abnorm Lymph % (Manual) 0 % 02/15/22 04:54 Metamyelocytes % 2 % (-0) H 02/15/22 04:54 Myelocytes % 2 % (-0) H 02/15/22 04:54 Nucleated RBC % Not Reportable 02/15/22 04:54 Neutrophils # (Manual) 7.5 10^3/uL (1.5-6.6) H 02/15/22 04:54 Lymphocytes # (Manual) 4.6 10^3/uL (1.5-3.5) H 02/15/22 04:54 Monocytes # (Manual) 0.8 10^3/uL (0.0-1.0) 02/15/22 04:54 Eosinophils # (Manual) 0.0 10^3/uL (0-0.7) 02/15/22 04:54 Basophils # (Manual) 0.0 10^3/uL (0-0.1) 02/15/22 04:54 Differential Comment MANUAL DIFFERENTIAL 02/15/22 04:54 WBC Morphology NORMAL APPEARANCE (NORMAL) 02/15/22 04:54 Platelet Estimate NORMAL (130-450,000) (NORMAL) 02/15/22 04:54 Platelet Morphology NORMAL APPEARANCE (NORMAL) 02/15/22 04:54 RBC Morph Micro Appear NORMAL APPEARANCE (NORMAL) 02/15/22 04:54 Bld Gas Analysis Time 0802/08/22 08:29 Sample Site RIGHT RADIAL 02/08/22 08:29 ABG pH 7.32 (7.35-7.45) L 02/08/22 08:29 ABG pCO2 45 mmHg (34-45) 02/08/22 08:29 ABG pO2 63 mmHg (80-100) L 02/08/22 08:29 ABG HCO3 22.4 mmol/L (22.0-26.0) 02/08/22 08:29 ABG Total CO2 23.8 MMOL/L (21.0-29.0) 02/08/22 08:29 ABG O2 Saturation 92 % (94-98) L 02/08/22 08:29 ABG Base Excess -3.8 mmol/L (-2.0-3.0) L 02/08/22 08:29 Elio Test POSITIVE 02/08/22 08:29 O2 Delivery Device NASAL CANNULA 02/08/22 08:29 O2 Liters/Min 2.00 LPM 02/08/22 08:29 Sodium 137 mmol/L (135-145) 02/15/22 04:54 Potassium 4.1 mmol/L (3.5-5.0) 02/15/22 04:54 Chloride 105 mmol/L (101-111) 02/15/22 04:54 Carbon Dioxide 27 mmol/L (21-32) 02/15/22 04:54 Anion Gap 5.0 (6-13) L 02/15/22 04:54 BUN 22 mg/dL (6-20) H 02/15/22 04:54 Creatinine 1.0 mg/dL (0.4-1.0) 02/15/22 04:54 Estimated GFR (MDRD) 57 (>89) L 02/15/22 04:54 Glucose 108 mg/dL (70-100) H 02/15/22 04:54 POC Whole Bld Glucose 131 mg/dL (70 - 100) H 02/15/22 16:32 Estimat Average Glucose 128 mg/dL (70-100) H 02/08/22 05:10 Hemoglobin A1c % 6.1 % (4.27-6.07) H 02/08/22 05:10 Lactic Acid 1.5 mmol/L (0.5-2.2) 02/07/22 20:21 Calcium 8.7 mg/dL (8.5-10.3) 02/15/22 04:54 Magnesium 2.0 mg/dL (1.7-2.8) 02/08/22 05:10 Total Bilirubin 0.5 mg/dL (0.2-1.0) 02/08/22 05:10 AST 16 IU/L (10-42) 02/08/22 05:10 ALT 19 IU/L (10-60) 02/08/22 05:10 Alkaline Phosphatase 91 IU/L (42-121) 02/08/22 05:10 Troponin I High Sens 6.9 ng/L (2.3-14.8) 02/13/22 14:00 B-Natriuretic Peptide 42 pg/mL (5-100) 02/07/22 20:21 Total Protein 6.6 g/dL (6.7-8.2) L 02/08/22 05:10 Albumin 3.3 g/dL (3.2-5.5) 02/08/22 05:10 Globulin 3.3 g/dL (2.1-4.2) 02/08/22 05:10 Albumin/Globulin Ratio 1.0 (1.0-2.2) 02/08/22 05:10 Triglycerides 50 mg/dL (-149) 02/08/22 05:10 Cholesterol 146 mg/dL (-199) 02/08/22 05:10 LDL Cholesterol, Calc 102 mg/dL (-129) 02/08/22 05:10 VLDL Cholesterol 10 mg/dL 02/08/22 05:10 HDL Cholesterol 34 mg/dL (60-) L 02/08/22 05:10 LDL/HDL Ratio 3.0 (<4.4) 02/08/22 05:10 Cholesterol/HDL Ratio 4.3 (<4.4) 02/08/22 05:10 Lipase 42 U/L (22-51) 02/07/22 20:21 TSH 1.49 uIU/mL (0.34-5.60) 02/08/22 05:10 Cortisol AM Sample 2.4 ug/dL 02/12/22 04:41 Nasal Adenovirus (PCR) NOT DETECTED 02/07/22 20:30 Nasal B. parapertussis DNA (PCR) NOT DETECTED 02/07/22 20:30 Nasal Coronavir 229E PCR NOT DETECTED 02/07/22 20:30 Nasal Coronavir HKU1 PCR NOT DETECTED 02/07/22 20:30 Nasal Coronavir NL63 PCR NOT DETECTED 02/07/22 20:30 Nasal Coronavir OC43 PCR NOT DETECTED 02/07/22 20:30 Nasal Enterovir/Rhinovir PCR NOT DETECTED 02/07/22 20:30 Nasal Influenza B PCR NOT DETECTED 02/07/22 20:30 Nasal Influenza A PCR NOT DETECTED 02/07/22 20:30 Nasal Parainfluen 1 PCR NOT DETECTED 02/07/22 20:30 Nasal Parainfluen 2 PCR NOT DETECTED 02/07/22 20:30 Nasal Parainfluen 3 PCR NOT DETECTED 02/07/22 20:30 Nasal Parainfluen 4 PCR NOT DETECTED 02/07/22 20:30 Nasal RSV (PCR) DETECTED A 02/07/22 20:30 Nasal B.pertussis DNA PCR NOT DETECTED 02/07/22 20:30 Nasal C.pneumoniae (PCR) NOT DETECTED 02/07/22 20:30 Clarisa Human Metapneumo PCR NOT DETECTED 02/07/22 20:30 Nasal M.pneumoniae (PCR) NOT DETECTED 02/07/22 20:30 Nasal SARS-CoV-2 (PCR) NOT DETECTED 02/07/22 20:30 - Procedures Procedures: Procedures (02/05/21) ESOPHAGOGASTRODUODENOSCOPY [EGD] W/CLOSED BIOPSY (11/29/13) INSERTION OF INFUSION DEV INTO SUP VENA CAVA, PERC APPROACH (12/28/17) MANUAL RUPT JOINT ADHES (04/27/14) TOTAL KNEE REPLACEMENT (06/16/14)
[2022-02-15] MEDS: MONTELUKAST 10 MG TABLET PO SCH (21:08)
[2022-02-15] MEDS: traMADol 50 MG TABLET PO PRN (21:09)
[2022-02-16] MEDS: HYDROmorphone 2 MG TABLET PO PRN ×3 (01:46→16:53)
[2022-02-16] MEDS: SODIUM CHLORIDE FLUSH 0.9% 10 ML SYRINGE IVP SCH ×3 (01:46→16:53)
[2022-02-16] MEDS: BENZONATATE 100 MG CAPSULE PO PRN ×2 (01:46→16:53)
[2022-02-16] MEDS: ALBUTEROL NEB 2.5 MG/3 ML INH PRN (01:50)
[2022-02-16] MEDS: VANCOMYCIN INJ 2 GM in SODIUM CHLORIDE 0.9% 500 ML IV SCH (03:51)
[2022-02-16 05:06] LABS: BASOPHILS # (AUTO) 0.1 10^3/uL (0.0-0.1); BASOPHILS % (AUTO) 0.5 %; EOSINOPHILS # (AUTO) 0.5 10^3/uL (0.0-0.7); EOSINOPHILS % (AUTO) 3.5 %; HCT - HEMATOCRIT 39.1 % (37.0-47.0); HGB - HEMOGLOBIN 12.4 g/dL (12.0-16.0); LYMPHOCYTES # (AUTO) 3.1 10^3/uL (1.5-3.5); LYMPHOCYTES % (AUTO) 22.7 %; MEAN CORPUSCULAR HEMOGLOBIN 30.9 pg (27.0-31.0); MEAN CORPUSCULAR HGB CONC 31.7 g/dL (32.0-36.0); MEAN CORPUSCULAR VOLUME 97.5 fL (81.0-99.0); MEAN PLATELET VOLUME 9.5 fL (7.9-10.8); MONOCYTES % (AUTO) 7.6 %; NEUTROPHILS # (AUTO) 8.4 10^3/uL (1.5-6.6); PLT - PLATELET COUNT 217 10^3/uL (130-450); RED BLOOD COUNT 4.01 10^6/uL (4.20-5.40); WHITE BLOOD COUNT 13.5 x10^3/uL (4.8-10.8)
[2022-02-16 05:11] LABS: CALCIUM 8.8 mg/dL (8.5-10.3); CREATININE 0.8 mg/dL (0.4-1.0); POTASSIUM 4.1 mmol/L (3.5-5.0)
[2022-02-16] MEDS: IPRATROPIUM/ALBUTEROL 3 ML NEB INH SCH ×3 (07:11→19:40)
[2022-02-16] MEDS: CEFEPIME 1 GM in SODIUM CHLORIDE 0.9% MINIBAG 100 ML IV SCH ×3 (07:14→21:15)
[2022-02-16] MEDS: AMIODARONE 200 MG TABLET PO SCH (07:55)
[2022-02-16] MEDS: MULTIVITAMIN TABLET PO SCH (07:55)
[2022-02-16] MEDS: guaiFENesin 600 MG TABLET PO SCH ×2 (07:56→21:25)
[2022-02-16] MEDS: APIXABAN 5 MG TABLET PO SCH ×2 (07:56→21:24)
[2022-02-16] MEDS: SPIRONOLACTONE 25 MG TABLET PO SCH (07:58)
[2022-02-16] MEDS: FLUTICASONE NASAL SPRAY NAS SCH (07:59)
[2022-02-16] MEDS: ASCORBIC ACID 500 MG TABLET PO SCH (07:59)
[2022-02-16] MEDS: INSULIN LISPRO 300 UNIT/3 ML PEN SUBQ SCH (08:00)
--- NOTE | 2022-02-16 08:18 | PROVIDER PROGRESS NOTE ---
Assessment/Plan - Problem List (1) Secondary bacterial pneumonia Assessment/Plan: A repeat chest x-ray showed she has developed a secondary bacterial pneumonia after a viral infection. Blood culture from February 13 is negative. Preliminary sputum culture has gram-positive cocci in pairs but no bacterial identification. Continue with Mucinex and made it twice daily not just daily Continue Cefepime and vancomycin, 7 days planned (2) Acute respiratory failure with hypoxemia Impression: This lady has documented COPD and now has an RSV infection, caught from her g randchild. Her COPD had decompensated in spite of being on home meds and she did require increased oxygenation needs at a steady 2 L/min. She continues to cough, be short of breath, wheeze and has sinus congestion. By 02/12, conversation was easier, lung exam shows it to be slightly looser daily. Unfortunately then she developed a pneumonia Continue nasal cannula oxygen supplementation with humidification, taper keeping sats > 88% (in a COPDer) Continue to treat her underlying COPD, the pneumonia and RSV sx, with Mucinex, Tessalon Perles, and will stop the Lisinopril and start Losartan, since the SARAH- I could be adding to her incessant cough. (3) COPD exacerbation Impression: Due to RSV. Coughing causing rib pain and back spasms, for which we started dilaudid on 02/13 and added Tramadol on 02/16. Continue duo nebs scheduled and albuterol every 4 as needed. Continue inhaled Pulmicort twice daily scheduled. Will resume IV steroids which she got for the first several days only; unclear why steroids were stopped. Continue nasal cannula oxygen supplementation with humidification, and plan to taper O2, keeping sats > 88% (in a COPDer) (4) RSV infection. Slow improvement (with lots of tears) because she is so truly miserable. Coughing caused rib pain and back spasms. We started dilaudid 02/13 for rib cage and back pain and Tramadol added on 02/15 She is requiring oxygen support. Medications at home were Singulair, Zyrtec, albuterol. She says she took [id number] NyQuil or DayQuil in the days before she came here. Medications now are: albuterol as needed, DuoNeb 4 times a day, Tessalon prn, Pulmicort, nasal Flonase, Mucinex bid. She was on deltasone 20 mg daily and then she got only 2 doses of Solu-Medrol. We will continue with several more days of iv Solu-Medrol. (5) Diabetes mellitus type 2 in obese Impression: She is on an oral hypoglycemic at home in the form as of sulfonylurea. She is not on metformin. Since admission, she required ss Insulin coverage We have stopped the lantus. And will stop sliding scale Insulin since she has redused them Continue fingerstick checks for hypoglycemia protocol (6) Hypotension Impression: It is unclear why this lady had become so hypotensive again this admission. In the emergency room she was 63 systolic and she responded to 2 L of IV normal ruthy ine in that her systolic went to the high 90s/low 100s. She was not felt to be septic. She was not hemorrhaging or anemic. In reviewing the medical record she has presented twice in the last year or so with hypotension. Once was in the face of diarrhea, and the other was not clear why this lady was hypotensive and her home medications neede to be reduced. But once her blood pressure rebounded she was discharged on her same home blood pressure meds. Troponins do not indicate IA. EKG is without change on admission. Meds at home were spironolactone, Lasix, amiodarone, metoprolol, lisinopril. Here she is getting amiodarone resumed on admission, Zestril resumed 02/08 at 2.5 mg a day, Toprol resumed 02/12 at 50 mg twice daily with Pulse around 60. We decreased toprol to 25 mg bid 02/13, but blood pressure has been soft so Toprol and zestril held when needed. We will change her amiodarone to nighttime so she does not get all of her cardiac meds at once that will drop her pressure. We are changing lisinopril because of her chronic cough to Losartan today. We will check a morning cortisol level today, to R/O Addisonian crisis. Once the AM cortisol blood level is drawn, then we will restart Solumedrol for her COPD. Qualifiers: Hypotension type: unspecified hypotension type Qualified Code(s): I95.9 - Hypotension, unspecified (7) Chronic systolic congestive heart failure Impression: This unfortunate female had V. fib in 2019 requiring close to an hour of CPR and multiple cardioversions. She finally regained pulse and pressure and was transferred to [facility]. Since that time she has had an AICD in place and is also on long-term anticoagulation for this as well as intermittent atrial fibrillation. She is on beta-julius, Amio, spironolactone, Lasix, and Lisinopril at home. She is also on Eliquis. Her Echocardiogram February 09 has mild left ventricular enlargement, moderate global hypokinesis with diastolic dysfunction indeterminate. Ejection fraction is 30 to 35%. When compared to previous echoes, December 2017 ejection fraction 50 to 55%. January 2019 ejection fraction 40 to 45%. July 2019 ejection fraction 40%. Plan: We are trying to avoid over hydrating her but she had LESLEY and is mostly hypotensive In view of the chest x-ray from 02/13 with a left effusion, we decreased her IV maintenance fluid rate, taking into account she will have IV fluids from the antibiotics. Lisinopril being changed today to Losartan, because of her chronic cough which may be from the SARAH-I. Will watch BP, urine output, creat. (8) Pain Impression: She now complains of severe pain in the lower rib cage/ diaphragm area and believes it is from her severe coughing. She is allergic to morphine with a "respiratory" side effect listed. She is already on Dilaudid and her pain is not controlled with this. Will add tramadol prn pain We also increased her expectorant of Mucinex from daily to twice daily. Continue with Tessalon Perles prn for cough suppression (9) Morbid obesity, BMI 40-45 Impression: As per Hx. (10) Acute renal failure resolved, due to ATN from hypotension Impression: Resolved Avoid nephrotoxins. Follow BMP daily Qualifiers: Acute renal failure type: unspecified Qualified Code(s): N17.9 - Acute kidney failure, unspecified - Current Meds Current Meds: Current Medications Generic Name Dose Route Start Last Admin Trade Name Freq PRN Reason Stop Dose Admin Albuterol 2.5 mg 02/08/22 00:46 02/16/22 01:50 Albuterol Neb 2.5 Mg/3 Ml INH 2.5 mg RTQ4H PRN Administration Wheezing Albuterol/Ipratropium 3 ml 02/09/22 11:00 02/16/22 07:11 Ipratropium/Albuterol 3 Ml Neb INH 3 ml RTQID ROMAN Administration Apixaban 5 mg 02/08/22 09:00 02/16/22 07:56 Apixaban 5 Mg Tablet PO 5 mg BID ROMAN Administration Ascorbic Acid 500 mg 02/08/22 09:00 02/16/22 07:59 Ascorbic Acid 500 Mg Tablet PO 500 mg DAILY ROMAN Administration Benzonatate 100 mg 02/08/22 00:44 02/16/22 01:46 Benzonatate 100 Mg Capsule PO 100 mg TID PRN Administration Cough Budesonide 0.5 mg 02/08/22 00:40 02/15/22 21:20 Budesonide 0.5 Mg/2 Ml Neb INH 0.5 mg RTBID ROMAN Administration Fluticasone Propionate 2 sprays 02/09/22 09:00 02/16/22 07:59 Fluticasone Nasal [place] CLARISA 2 spr DAILY ROMAN Administration Guaifenesin 600 mg 02/15/22 21:00 02/16/22 07:56 Guaifenesin 600 Mg Tablet PO 600 mg BID ROMAN Administration Hydromorphone HCl 2 mg 02/13/22 16:34 02/16/22 07:55 Hydromorphone 2 Mg Tablet PO 2 mg Q6HR PRN Administration Severe Pain Cefepime HCl 1 gm/ Sodium 100 mls @ 200 mls/hr 02/13/22 14:00 02/16/22 07:14 Chloride IV 200 mls/hr TID ROMAN Administration Vancomycin HCl 2 gm/ Sodium 500 mls @ 250 mls/hr 02/15/22 04:00 02/16/22 03:51 Chloride IV 250 mls/hr Q24H ROMAN Administration Insulin Human Lispro 2 - 10 unit 02/13/22 08:00 02/16/22 08:00 Insulin Lispro 300 Unit/3 Ml Pen SUBQ Not Given 0800,1200,1700,2100 [facility] Protocol Methocarbamol 500 mg 02/09/22 09:03 02/15/22 12:11 Methocarbamol 500 Mg Tablet PO 500 mg Q6HR PRN Administration Spasms Metoprolol Succinate 25 mg 02/13/22 21:00 02/15/22 21:08 Metoprolol Succinate 25 Mg Tablet PO 25 mg BID ROMAN Administration Montelukast Sodium 10 mg 02/15/22 21:00 02/15/22 21:08 Montelukast 10 Mg Tablet PO 10 mg QPM ROMAN Administration Multivitamins 1 tab 02/08/22 08:00 02/16/22 07:55 Multivitamin Tablet PO 1 tab DAILYWM ROMAN Administration Nitroglycerin 0.4 mg 02/13/22 10:55 02/13/22 11:04 Nitroglycerin Sl 0.4 Mg Tablet SL 0.4 mg Q5MIN PRN Administration Chest Pain Polyethylene Glycol 17 gm 02/13/22 09:00 02/15/22 09:47 Polyethylene Glycol 3350 17 Gm Packet PO Not Given DAILY ROMAN Prochlorperazine Edisylate 10 mg 02/08/22 12:57 02/11/22 17:55 Prochlorperazine 10 Mg/2 Ml Vial IVP 10 mg Q6HR PRN Administration Nausea / Vomiting Prochlorperazine Maleate 5 mg 02/08/22 12:57 02/14/22 00:21 Prochlorperazine 5 Mg Tablet PO 5 mg Q6HR PRN Administration Nausea / Vomiting Sodium Chloride 10 ml 02/08/22 00:33 02/15/22 04:11 Sodium Chloride Flush 0.9% 10 Ml Syringe IVP 10 ml PRN PRN Administration NEEDED PER PROVIDER ORDERS Sodium Chloride 10 ml 02/08/22 01:00 02/16/22 07:58 Sodium Chloride Flush 0.9% 10 Ml Syringe IVP 10 ml 0100,0900,1700 ROMAN Administration Spironolactone 25 mg 02/08/22 12:28 02/16/22 07:58 Spironolactone 25 Mg Tablet PO 25 mg DAILY ROMAN Administration Tramadol HCl 50 mg 02/15/22 16:42 02/15/22 21:09 Tramadol 50 Mg Tablet PO 50 mg Q4HR PRN Administration PAIN - Lab Result Fish Bone Diagrams: 02/16/22 04:55 02/16/22 04:55 - Additional Planning My Orders: My Active Orders 02/15/22 16:42 traMADol [Ultram] 50 mg PO Q4HR PRN 02/15/22 21:00 Montelukast [Singulair] 10 mg PO QPM guaiFENesin [Mucinex] 600 mg PO BID 02/16/22 08:00 CORTISOL,AM [IAI] Urgent 02/16/22 09:00 Losartan [Cozaar] 25 mg PO DAILY methylPREDNISolone SUCCINATE [SOLU-Medrol (40MG VIAL)] 40 mg IVP TID 02/16/22 21:00 Amiodarone [Pacerone] 100 mg PO QPM Subjective - Subjective Patient Reports: Feeling Better (She notices a difference since yesterday, can communicate in long sentences, is no longer tripoding when she speaks), Cough, Shortness of Breath Objective Vital Signs: Vital Signs - 24 hr 02/15/22 02/15/22 02/15/22 12:37 16:04 16:06 Temperature 36.7 C Heart Rate 80 86 Heart Rate [ Brachial] Heart Rate [ 75 Radial] Respiratory 18 18 19 Rate Blood Pressure 107/36 L [Right Brachial artery] O2 Saturation 96 If not protocol 3 3 3 : Oxygen Flow, liters/minute 02/15/22 02/15/22 02/15/22 21:20 21:28 23:43 Temperature 37.0 C Heart Rate 118 H Heart Rate [ 61 Brachial] Heart Rate [ Radial] Respiratory 24 20 Rate Blood Pressure 105/45 L [Right Brachial artery] O2 Saturation 97 If not protocol 3 3 3 : Oxygen Flow, liters/minute 02/16/22 02/16/22 02/16/22 01:50 07:20 07:22 Temperature Heart Rate 62 57 L Heart Rate [ Brachial] Heart Rate [ Radial] Respiratory 24 18 Rate Blood Pressure [Right Brachial artery] O2 Saturation If not protocol 3 3 3 : Oxygen Flow, liters/minute Oxygen O2 Source [With Activity] Room air O2 Source Nasal cannula Oxygen Flow Rate 3 I&O (Last 24 Hrs): Intake and Output Totals x24h 02/14/22 02/15/22 02/16/22 23:59 23:59 23:59 Intake Total 2700 2230 730 Output Total 2294 6575 2150 Balance -2300 -9339 -1420 General: Alert, Oriented x3 HEENT: Mucous membr. moist/pink, Other (edentulous) Neuro: Alert, Non Focal Cardiovascular: Regular rate Respiratory: No respiratory distress (wearing O2 per n.c.), Wheezes (sscattered and minimal, good air movement in all lung mathews) Abdomen: Soft, Other (obese with pannus) Extremities: No edema, No tenderness/swelling - Results Results: Laboratory Results WBC 13.5 x10^3/uL (4.8-10.8) H 02/16/22 04:55 RBC 4.01 10^6/uL (4.20-5.40) L 02/16/22 04:55 Hgb 12.4 g/dL (12.0-16.0) 02/16/22 04:55 Hct 39.1 % (37.0-47.0) 02/16/22 04:55 MCV 97.5 fL (81.0-99.0) 02/16/22 04:55 MCH 30.9 pg (27.0-31.0) 02/16/22 04:55 MCHC 31.7 g/dL (32.0-36.0) L 02/16/22 04:55 RDW 13.0 % (12.0-15.0) 02/16/22 04:55 Plt Count 217 10^3/uL (130-450) 02/16/22 04:55 MPV 9.5 fL (7.9-10.8) 02/16/22 04:55 Neut # (Auto) 8.4 10^3/uL (1.5-6.6) H 02/16/22 04:55 Lymph # (Auto) 3.1 10^3/uL (1.5-3.5) 02/16/22 04:55 [place] # (Auto) 1.0 10^3/uL (0.0-1.0) 02/16/22 04:55 Eos # (Auto) 0.5 10^3/uL (0.0-0.7) 02/16/22 04:55 Baso # (Auto) 0.1 10^3/uL (0.0-0.1) 02/16/22 04:55 Absolute Nucleated RBC 0.00 x10^3/uL 02/16/22 04:55 Total Counted 100 02/15/22 04:54 Band Neuts % (Manual) 0 % (0-10) 02/15/22 04:54 Abnorm Lymph % (Manual) 0 % 02/15/22 04:54 Metamyelocytes % 2 % (-0) H 02/15/22 04:54 Myelocytes % 2 % (-0) H 02/15/22 04:54 Nucleated RBC % 0.0 /100WBC 02/16/22 04:55 Neutrophils # (Manual) 7.5 10^3/uL (1.5-6.6) H 02/15/22 04:54 Lymphocytes # (Manual) 4.6 10^3/uL (1.5-3.5) H 02/15/22 04:54 Monocytes # (Manual) 0.8 10^3/uL (0.0-1.0) 02/15/22 04:54 Eosinophils # (Manual) 0.0 10^3/uL (0-0.7) 02/15/22 04:54 Basophils # (Manual) 0.0 10^3/uL (0-0.1) 02/15/22 04:54 Differential Comment MANUAL DIFFERENTIAL 02/15/22 04:54 WBC Morphology NORMAL APPEARANCE (NORMAL) 02/15/22 04:54 Platelet Estimate NORMAL (130-450,000) (NORMAL) 02/15/22 04:54 Platelet Morphology NORMAL APPEARANCE (NORMAL) 02/15/22 04:54 RBC Morph Micro Appear NORMAL APPEARANCE (NORMAL) 02/15/22 04:54 Bld Gas Analysis Time 0802/08/22 08:29 Sample Site RIGHT RADIAL 02/08/22 08:29 ABG pH 7.32 (7.35-7.45) L 02/08/22 08:29 ABG pCO2 45 mmHg (34-45) 02/08/22 08:29 ABG pO2 63 mmHg (80-100) L 02/08/22 08:29 ABG HCO3 22.4 mmol/L (22.0-26.0) 02/08/22 08:29 ABG Total CO2 23.8 MMOL/L (21.0-29.0) 02/08/22 08:29 ABG O2 Saturation 92 % (94-98) L 02/08/22 08:29 ABG Base Excess -3.8 mmol/L (-2.0-3.0) L 02/08/22 08:29 Elio Test POSITIVE 02/08/22 08:29 O2 Delivery Device NASAL CANNULA 02/08/22 08:29 O2 Liters/Min 2.00 LPM 02/08/22 08:29 Sodium 138 mmol/L (135-145) 02/16/22 04:55 Potassium 4.1 mmol/L (3.5-5.0) 02/16/22 04:55 Chloride 103 mmol/L (101-111) 02/16/22 04:55 Carbon Dioxide 29 mmol/L (21-32) 02/16/22 04:55 Anion Gap 6.0 (6-13) 02/16/22 04:55 BUN 18 mg/dL (6-20) 02/16/22 04:55 Creatinine 0.8 mg/dL (0.4-1.0) 02/16/22 04:55 Estimated GFR (MDRD) 74 (>89) L 02/16/22 04:55 Glucose 127 mg/dL (70-100) H 02/16/22 04:55 POC Whole Bld Glucose 95 mg/dL (70 - 100) 02/16/22 07:20 Estimat Average Glucose 128 mg/dL (70-100) H 02/08/22 05:10 Hemoglobin A1c % 6.1 % (4.27-6.07) H 02/08/22 05:10 Lactic Acid 1.5 mmol/L (0.5-2.2) 02/07/22 20:21 Calcium 8.8 mg/dL (8.5-10.3) 02/16/22 04:55 Magnesium 2.0 mg/dL (1.7-2.8) 02/08/22 05:10 Total Bilirubin 0.5 mg/dL (0.2-1.0) 02/08/22 05:10 AST 16 IU/L (10-42) 02/08/22 05:10 ALT 19 IU/L (10-60) 02/08/22 05:10 Alkaline Phosphatase 91 IU/L (42-121) 02/08/22 05:10 Troponin I High Sens 6.9 ng/L (2.3-14.8) 02/13/22 14:00 B-Natriuretic Peptide 42 pg/mL (5-100) 02/07/22 20:21 Total Protein 6.6 g/dL (6.7-8.2) L 02/08/22 05:10 Albumin 3.3 g/dL (3.2-5.5) 02/08/22 05:10 Globulin 3.3 g/dL (2.1-4.2) 02/08/22 05:10 Albumin/Globulin Ratio 1.0 (1.0-2.2) 02/08/22 05:10 Triglycerides 50 mg/dL (-149) 02/08/22 05:10 Cholesterol 146 mg/dL (-199) 02/08/22 05:10 LDL Cholesterol, Calc 102 mg/dL (-129) 02/08/22 05:10 VLDL Cholesterol 10 mg/dL 02/08/22 05:10 HDL Cholesterol 34 mg/dL (60-) L 02/08/22 05:10 LDL/HDL Ratio 3.0 (<4.4) 02/08/22 05:10 Cholesterol/HDL Ratio 4.3 (<4.4) 02/08/22 05:10 Lipase 42 U/L (22-51) 02/07/22 20:21 TSH 1.49 uIU/mL (0.34-5.60) 02/08/22 05:10 Cortisol AM Sample 2.4 ug/dL 02/12/22 04:41 Nasal Adenovirus (PCR) NOT DETECTED 02/07/22 20:30 Nasal B. parapertussis DNA (PCR) NOT DETECTED 02/07/22 20:30 Nasal Coronavir 229E PCR NOT DETECTED 02/07/22 20:30 Nasal Coronavir HKU1 PCR NOT DETECTED 02/07/22 20:30 Nasal Coronavir NL63 PCR NOT DETECTED 02/07/22 20:30 Nasal Coronavir OC43 PCR NOT DETECTED 02/07/22 20:30 Nasal Enterovir/Rhinovir PCR NOT DETECTED 02/07/22 20:30 Nasal Influenza B PCR NOT DETECTED 02/07/22 20:30 Nasal Influenza A PCR NOT DETECTED 02/07/22 20:30 Nasal Parainfluen 1 PCR NOT DETECTED 02/07/22 20:30 Nasal Parainfluen 2 PCR NOT DETECTED 02/07/22 20:30 Nasal Parainfluen 3 PCR NOT DETECTED 02/07/22 20:30 Nasal Parainfluen 4 PCR NOT DETECTED 02/07/22 20:30 Nasal RSV (PCR) DETECTED A 02/07/22 20:30 Nasal B.pertussis DNA PCR NOT DETECTED 02/07/22 20:30 Nasal C.pneumoniae (PCR) NOT DETECTED 02/07/22 20:30 Clarisa Human Metapneumo PCR NOT DETECTED 02/07/22 20:30 Nasal M.pneumoniae (PCR) NOT DETECTED 02/07/22 20:30 Nasal SARS-CoV-2 (PCR) NOT DETECTED 02/07/22 20:30 - Procedures Procedures: Procedures (02/05/21) ESOPHAGOGASTRODUODENOSCOPY [EGD] W/CLOSED BIOPSY (11/29/13) INSERTION OF INFUSION DEV INTO SUP VENA CAVA, PERC APPROACH (12/28/17) MANUAL RUPT JOINT ADHES (04/27/14) TOTAL KNEE REPLACEMENT (06/16/14)
[2022-02-16] MEDS: polyethylene glycoL 3350 17 GM PACKET PO SCH (08:55)
[2022-02-16] MEDS: METOPROLOL SUCCINATE 25 MG TABLET PO SCH ×2 (08:55→21:28)
[2022-02-16] MEDS: LOSARTAN 50 MG TABLET PO SCH (08:55)
[2022-02-16] MEDS: methylPREDNISolone SUCCINATE 40 MG/ML VIAL IVP SCH ×3 (09:10→21:15)
[2022-02-16] MEDS: BUDESONIDE 0.5 MG/2 ML NEB INH SCH ×2 (10:59→19:40)
[2022-02-16] MEDS: MONTELUKAST 10 MG TABLET PO SCH (21:25)
[2022-02-17] MEDS: BENZONATATE 100 MG CAPSULE PO PRN ×2 (01:39→16:31)
[2022-02-17] MEDS: traMADol 50 MG TABLET PO PRN ×2 (01:39→06:57)
[2022-02-17] MEDS: VANCOMYCIN INJ 2 GM in SODIUM CHLORIDE 0.9% 500 ML IV SCH (04:10)
[2022-02-17] MEDS: SODIUM CHLORIDE FLUSH 0.9% 10 ML SYRINGE IVP SCH ×3 (04:10→17:52)
[2022-02-17 05:29] LABS: BASOPHILS % (AUTO) 0.3 %; HCT - HEMATOCRIT 40.4 % (37.0-47.0); HGB - HEMOGLOBIN 13.3 g/dL (12.0-16.0); LYMPHOCYTES % (AUTO) 5.4 %; MEAN CORPUSCULAR HEMOGLOBIN 32.1 pg (27.0-31.0); MEAN CORPUSCULAR HGB CONC 32.9 g/dL (32.0-36.0); MEAN CORPUSCULAR VOLUME 97.6 fL (81.0-99.0); MEAN PLATELET VOLUME 9.6 fL (7.9-10.8); MONOCYTES % (AUTO) 2.1 %; NEUTROPHILS % (AUTO) 89.8 %; PLT - PLATELET COUNT 228 10^3/uL (130-450); RED BLOOD COUNT 4.14 10^6/uL (4.20-5.40); RED CELL DISTRIBUTION WIDTH 13.1 % (12.0-15.0); WHITE BLOOD COUNT 21.3 x10^3/uL (4.8-10.8)
[2022-02-17 05:34] LABS: ABNORMAL LYMPHS % (MANUAL) 0 %
[2022-02-17 05:36] LABS: CALCIUM 9.2 mg/dL (8.5-10.3); CREATININE 0.9 mg/dL (0.4-1.0); POTASSIUM 4.3 mmol/L (3.5-5.0)
[2022-02-17 05:50] LABS: BAND NEUTROPHILS % (MANUAL) 3 %; LYMPHOCYTES # (MANUAL) 1.1 10^3/uL (1.5-3.5); LYMPHOCYTES % (MANUAL) 5 %; MONOCYTES # (MANUAL) 0.4 10^3/uL (0.0-1.0); NEUTROPHILS # (MANUAL) 19.8 10^3/uL (1.5-6.6)
[2022-02-17 05:51] LABS: DIFFERENTIAL COMMENT MANUAL DIFFERENTIAL; PLATELET ESTIMATE, MANUAL NORMAL (130-450,000) (NORMAL); PLATELET MORPHOLOGY NORMAL APPEARANCE (NORMAL); RBC MORPHOLOGY (MULTIPLE) NORMAL APPEARANCE (NORMAL); WBC MORPHOLOGY (MULTIPLE) NORMAL APPEARANCE (NORMAL)
[2022-02-17] MEDS: CEFEPIME 1 GM in SODIUM CHLORIDE 0.9% MINIBAG 100 ML IV SCH ×3 (06:56→21:00)
[2022-02-17] MEDS: SODIUM CHLORIDE FLUSH 0.9% 10 ML SYRINGE IVP PRN (06:57)
[2022-02-17] MEDS: methylPREDNISolone SUCCINATE 40 MG/ML VIAL IVP SCH ×2 (06:57→17:50)
[2022-02-17] MEDS: IPRATROPIUM/ALBUTEROL 3 ML NEB INH SCH ×4 (07:01→20:18)
[2022-02-17] MEDS: BUDESONIDE 0.5 MG/2 ML NEB INH SCH ×2 (07:01→20:18)
[2022-02-17] MEDS: MULTIVITAMIN TABLET PO SCH (09:03)
[2022-02-17] MEDS: polyethylene glycoL 3350 17 GM PACKET PO SCH (09:03)
[2022-02-17] MEDS: SPIRONOLACTONE 25 MG TABLET PO SCH (09:05)
[2022-02-17] MEDS: APIXABAN 5 MG TABLET PO SCH ×2 (09:05→20:44)
[2022-02-17] MEDS: LOSARTAN 50 MG TABLET PO SCH (09:05)
[2022-02-17] MEDS: ASCORBIC ACID 500 MG TABLET PO SCH (09:05)
[2022-02-17] MEDS: METOPROLOL SUCCINATE 25 MG TABLET PO SCH ×2 (09:05→20:45)
[2022-02-17] MEDS: FLUTICASONE NASAL SPRAY NAS SCH (09:06)
[2022-02-17] MEDS: INSULIN LISPRO 300 UNIT/3 ML PEN SUBQ SCH ×4 (09:06→20:46)
[2022-02-17] MEDS: guaiFENesin 600 MG TABLET PO SCH ×2 (09:06→20:45)
--- NOTE | 2022-02-17 15:39 | PROVIDER PROGRESS NOTE ---
Assessment/Plan - Problem List (1) Secondary bacterial pneumonia Assessment/Plan: A repeat chest x-ray showed she has developed a secondary bacterial pneumonia after a viral infection. Blood culture from February 13 is negative. Preliminary sputum culture has gram-positive cocci in pairs but no bacterial identification. Continue with Mucinex and made it twice daily not just daily Continue Cefepime and vancomycin, 7 days planned (2) Acute respiratory failure with hypoxemia Impression: This lady has documented COPD and now got an RSV infection, caught from her g randchild. Her COPD had decompensated in spite of being on home meds and she did require increased oxygenation needs She continues to cough, be short of breath, wheeze and has sinus congestion. By 02/12, conversation was easier, lung exam shows it to be slightly looser daily. Continue nasal cannula oxygen supplementation with humidification, taper keeping sats > 88% (in a COPDer). On day of discharge we will have her do an oximetry test to see if her home oxygen order needs to be different Continue to treat her underlying COPD, the pneumonia and RSV sx, with Mucinex, Marie Cevallos, and will stop the Lisinopril and start Losartan, since the SARAH- I could be adding to her incessant cough. (3) COPD exacerbation Impression: Due to RSV. Coughing causing rib pain and back spasms, for which we started dilaudid on 02/13 and added Tramadol on 02/16. Continue duo nebs scheduled and albuterol every 4 as needed. Continue inhaled Pulmicort twice daily scheduled. We resumed IV steroids which she got for the first several days only; unclear why steroids were stopped. We will start to taper the steroids now. At discharge she will either need a Medrol Dosepak or a slower taper with oral prednisone. Continue nasal cannula oxygen supplementation with humidification, and plan to taper O2, keeping sats > 88% (in a COPDer) (4) RSV infection. Slow improvement and she was truly miserable from this. Coughing caused rib pain and back spasms. We started dilaudid 02/13 for rib cage and back pain and Tramadol added on 02/16 She is requiring oxygen support. Medications at home were Singulair, Zyrtec, albuterol. She says she took nvlb-flr-uoudwwo NyQuil or DayQuil in the days before she came here. Medications now are: albuterol as needed, DuoNeb 4 times a day, Tessalon prn, Pulmicort, nasal Flonase, Mucinex bid. She was on deltasone 20 mg daily and then she got only 2 doses of Solu-Medrol. We ordered continuation with several more days of iv Solu-Medrol. (5) Diabetes mellitus type 2 in obese Impression: She is on an oral hypoglycemic at home in the form as of sulfonylurea. She is not on metformin. Since admission, she required ss Insulin coverage We have stopped the lantus. And will stop sliding scale Insulin since she has redused them Continue fingerstick checks for hypoglycemia protocol (6) Hypotension Impression: It is unclear why this lady had become so hypotensive again this admission. In the emergency room she was 63 systolic and she responded to 2 L of IV normal saline in that her systolic went to the high 90s/low 100s. She was not felt to be septic. She was not hemorrhaging or anemic. In reviewing the medical record she has presented twice in the last year or so with hypotension. Once was in the face of diarrhea, and the other was not clear why this lady was hypotensive and her home medications neede to be reduced. But once her blood pressure rebounded she was discharged on her same home blood pressure meds. Troponins do not indicate ID. EKG is without change on admission. Meds at home were spironolactone, Lasix, amiodarone, metoprolol, lisinopril. Here she is getting amiodarone resumed on admission, Zestril resumed 02/08 at 2.5 mg a day, Toprol resumed 02/12 at 50 mg twice daily with Pulse around 60. We decreased toprol to 25 mg bid 02/13, but blood pressure has been soft so Toprol and zestril held when needed. We will change her amiodarone to nighttime so she does not get all of her cardiac meds at once that will drop her pressure. We are changing lisinopril because of her chronic cough to Losartan today. We checked a morning cortisol level, to R/O Addisonian crisis and it was normal. Qualifiers: Hypotension type: unspecified hypotension type Qualified Code(s): I95.9 - Hypotension, unspecified (7) Chronic systolic congestive heart failure Impression: This unfortunate female had V. fib in 2019 requiring close to an hour of CPR and multiple cardioversions. She finally regained pulse and pressure and [facility] Since that time she has had an AICD in place and is also on long-term anticoagulation for this as well as intermittent atrial fibrillation. She is on beta-julius, Amio, spironolactone, Lasix, and Lisinopril at home. She is also on Eliquis. Her Echocardiogram February 09 has mild left ventricular enlargement, moderate global hypokinesis with diastolic dysfunction indeterminate. Ejection fraction is 30 to 35%. When compared to previous echoes, December 2017 ejection fraction 50 to 55%. January 2019 ejection fraction 40 to 45%. July 2019 ejection fraction 40%. Plan: We are trying to avoid over hydrating her but she had LESLEY and is mostly hypotensive In view of the chest x-ray from 02/13 with a left effusion, we decreased her IV maintenance fluid rate, taking into account she will have IV fluids from the antibiotics. Lisinopril was changed to Losartan, because of her severe cough, which may be also from the SARAH-I. Will watch BP, urine output, creat. (8) Pain Impression: She has had severe pain in the lower rib cage/ diaphragm area and believes it is from her severe coughing. She is allergic to morphine with a "respiratory" side effect listed. She is already on Dilaudid and her pain is not controlled with this. We added tramadol prn pain We also increased her expectorant of Mucinex from daily to twice daily. Continue with Tessalon Perles prn for cough suppression IS was ordered (9) Morbid obesity, BMI 40-45 Impression: As per Hx. (10) Acute renal failure resolved, due to ATN from hypotension Impression: Resolved Avoid nephrotoxins. Follow BMP daily Qualifiers: Acute renal failure type: unspecified Qualified Code(s): N17.9 - Acute kidney failure, unspecified - Current Meds Current Meds: Current Medications Generic Name Dose Route Start Last Admin Trade Name Freq PRN Reason Stop Dose Admin Albuterol 2.5 mg 02/08/22 00:46 02/16/22 01:50 Albuterol Neb 2.5 Mg/3 Ml INH 2.5 mg RTQ4H PRN Administration Wheezing Albuterol/Ipratropium 3 ml 02/09/22 11:00 02/17/22 14:19 Ipratropium/Albuterol 3 Ml Neb INH 3 ml RTQID ROMAN Administration Apixaban 5 mg 02/08/22 09:00 02/17/22 09:05 Apixaban 5 Mg Tablet PO 5 mg BID ROMAN Administration Ascorbic Acid 500 mg 02/08/22 09:00 02/17/22 09:05 Ascorbic Acid 500 Mg Tablet PO 500 mg DAILY ROMAN Administration Benzonatate 100 mg 02/08/22 00:44 02/17/22 01:39 Benzonatate 100 Mg Capsule PO 100 mg TID PRN Administration Cough Budesonide 0.5 mg 02/08/22 00:40 02/17/22 07:01 Budesonide 0.5 Mg/2 Ml Neb INH 0.5 mg RTBID ROMAN Administration Fluticasone Propionate 2 sprays 02/09/22 09:00 02/17/22 09:06 Fluticasone Nasal [place] CLARISA 1 spr DAILY ROMAN Administration Glipizide 5 mg 02/17/22 08:00 02/17/22 09:04 Glipizide Er 2.5 Mg Tablet PO 5 mg DAILYWM ROMAN Administration Guaifenesin 600 mg 02/15/22 21:00 02/17/22 09:06 Guaifenesin 600 Mg Tablet PO 600 mg BID ROMAN Administration Hydromorphone HCl 2 mg 02/13/22 16:34 02/16/22 16:53 Hydromorphone 2 Mg Tablet PO 2 mg Q6HR PRN Administration Severe Pain Cefepime HCl 1 gm/ Sodium 100 mls @ 200 mls/hr 02/13/22 14:00 02/17/22 15:00 Chloride IV 02/18/22 06:29 Infused TID ROMAN Infusion Vancomycin HCl 2 gm/ Sodium 500 mls @ 250 mls/hr 02/15/22 04:00 02/17/22 07:00 Chloride IV 02/18/22 06:30 Infused Q24H ROMAN Infusion Insulin Human Lispro 1 - 9 unit 02/17/22 08:00 02/17/22 11:55 Insulin Lispro 300 Unit/3 Ml Pen SUBQ 5 unit 0800,1200,1700,2100 ROMAN Administration Protocol Losartan Potassium 25 mg 02/16/22 09:00 02/17/22 09:05 Losartan 50 Mg Tablet PO 25 mg DAILY ROMAN Administration Methocarbamol 500 mg 02/09/22 09:03 02/15/22 12:11 Methocarbamol 500 Mg Tablet PO 500 mg Q6HR PRN Administration Spasms Metoprolol Succinate 25 mg 02/13/22 21:00 02/17/22 09:05 Metoprolol Succinate 25 Mg Tablet PO 25 mg BID ROMAN Administration Montelukast Sodium 10 mg 02/15/22 21:00 02/16/22 21:25 Montelukast 10 Mg Tablet PO 10 mg QPM ROMAN Administration Multivitamins 1 tab 02/08/22 08:00 02/17/22 09:03 Multivitamin Tablet PO 1 tab DAILYWM ROMAN Administration Nitroglycerin 0.4 mg 02/13/22 10:55 02/13/22 11:04 Nitroglycerin Sl 0.4 Mg Tablet SL 0.4 mg Q5MIN PRN Administration Chest Pain Polyethylene Glycol 17 gm 02/13/22 09:00 02/17/22 09:03 Polyethylene Glycol 3350 17 Gm Packet PO 17 gm DAILY ROMAN Administration Prochlorperazine Edisylate 10 mg 02/08/22 12:57 02/11/22 17:55 Prochlorperazine 10 Mg/2 Ml Vial IVP 10 mg Q6HR PRN Administration Nausea / Vomiting Prochlorperazine Maleate 5 mg 02/08/22 12:57 02/14/22 00:21 Prochlorperazine 5 Mg Tablet PO 5 mg Q6HR PRN Administration Nausea / Vomiting Sodium Chloride 10 ml 02/08/22 00:33 02/17/22 06:57 Sodium Chloride Flush 0.9% 10 Ml Syringe IVP 10 ml PRN PRN Administration NEEDED PER PROVIDER ORDERS Sodium Chloride 10 ml 02/08/22 01:00 02/17/22 09:06 Sodium Chloride Flush 0.9% 10 Ml Syringe IVP 10 ml 0100,0900,1700 ROMAN Administration Spironolactone 25 mg 02/08/22 12:28 02/17/22 09:05 Spironolactone 25 Mg Tablet PO 25 mg DAILY ROMAN Administration Tramadol HCl 50 mg 02/15/22 16:42 02/17/22 06:57 Tramadol 50 Mg Tablet PO 50 mg Q4HR PRN Administration PAIN - Lab Result Fish Bone Diagrams: 02/17/22 05:15 02/17/22 05:15 - Additional Planning My Orders: My Active Orders 02/17/22 08:00 Insulin Lispro [Humalog Kwikpen U-100] 1 - 9 unit SUBQ 0800,1200,1700,2100 glipiZIDE ER [Glucotrol Xl] 5 mg PO DAILYWM 02/17/22 18:00 methylPREDNISolone SUCCINATE [SOLU-Medrol (40MG VIAL)] 40 mg IVP BID 02/17/22 21:00 Amiodarone [Pacerone] 100 mg PO QPM Subjective - Subjective Patient Reports: Feeling Better (Feels congested in her front and in her right base, less wheezing, less air hunger, less pain in the front rib cage area with coughing and her cough has decreased) Objective Vital Signs: Vital Signs - 24 hr 02/16/22 02/16/22 02/17/22 15:43 19:41 00:00 Temperature 37.2 C 36.7 C Heart Rate 72 Heart Rate [ 62 98 Brachial] Respiratory 20 20 18 Rate Blood Pressure 115/39 L 123/55 L [Right Brachial artery] O2 Saturation 93 92 If not protocol 3 2 3 : Oxygen Flow, liters/minute 02/17/22 02/17/22 02/17/22 07:34 07:52 11:25 Temperature 36.7 C Heart Rate 75 72 Heart Rate [ 64 Brachial] Respiratory 18 22 22 Rate Blood Pressure 126/46 L [Right Brachial artery] O2 Saturation 92 If not protocol 2 2 : Oxygen Flow, liters/minute Oxygen O2 Source [With Activity] Room air O2 Source Nasal cannula Oxygen Flow Rate 3 I&O (Last 24 Hrs): Intake and Output Totals x24h 02/15/22 02/16/22 02/17/22 23:59 23:59 23:59 Intake Total 2230 3737 2700 Output Total 9991 0062 4669 Balance -8084 -3989 200 General: Alert, Oriented x3 HEENT: Mucous membr. moist/pink Neck: Supple, Other (Obese and cannot evaluate JVP) Neuro: Alert, Non Focal Cardiovascular: Regular rate, No murmurs Respiratory: Wheezes (Diffuse posteriorly, scattered), Rales (Right base) Abdomen: Normal bowel sounds, Soft Extremities: No clubbing, No edema - Results Results: Laboratory Results WBC 21.3 x10^3/uL (4.8-10.8) H 02/17/22 05:15 RBC 4.14 10^6/uL (4.20-5.40) L 02/17/22 05:15 Hgb 13.3 g/dL (12.0-16.0) 02/17/22 05:15 Hct 40.4 % (37.0-47.0) 02/17/22 05:15 MCV 97.6 fL (81.0-99.0) 02/17/22 05:15 MCH 32.1 pg (27.0-31.0) H 02/17/22 05:15 MCHC 32.9 g/dL (32.0-36.0) 02/17/22 05:15 RDW 13.1 % (12.0-15.0) 02/17/22 05:15 Plt Count 228 10^3/uL (130-450) 02/17/22 05:15 MPV 9.6 fL (7.9-10.8) 02/17/22 05:15 Neut # (Auto) Not Reportable 02/17/22 05:15 Lymph # (Auto) Not Reportable 02/17/22 05:15 [place] # (Auto) Not Reportable 02/17/22 05:15 Eos # (Auto) Not Reportable 02/17/22 05:15 Baso # (Auto) Not Reportable 02/17/22 05:15 Absolute Nucleated RBC Not Reportable 02/17/22 05:15 Total Counted 100 02/17/22 05:15 Band Neuts % (Manual) 3 % (0-10) 02/17/22 05:15 Abnorm Lymph % (Manual) 0 % 02/17/22 05:15 Metamyelocytes % 2 % (-0) H 02/15/22 04:54 Myelocytes % 2 % (-0) H 02/15/22 04:54 Nucleated RBC % Not Reportable 02/17/22 05:15 Neutrophils # (Manual) 19.8 10^3/uL (1.5-6.6) H 02/17/22 05:15 Lymphocytes # (Manual) 1.1 10^3/uL (1.5-3.5) L 02/17/22 05:15 Monocytes # (Manual) 0.4 10^3/uL (0.0-1.0) 02/17/22 05:15 Eosinophils # (Manual) 0.0 10^3/uL (0-0.7) 02/17/22 05:15 Basophils # (Manual) 0.0 10^3/uL (0-0.1) 02/17/22 05:15 Differential Comment MANUAL DIFFERENTIAL 02/17/22 05:15 WBC Morphology NORMAL APPEARANCE (NORMAL) 02/17/22 05:15 Platelet Estimate NORMAL (130-450,000) (NORMAL) 02/17/22 05:15 Platelet Morphology NORMAL APPEARANCE (NORMAL) 02/17/22 05:15 RBC Morph Micro Appear NORMAL APPEARANCE (NORMAL) 02/17/22 05:15 Bld Gas Analysis Time 82802/08/22 08:29 Sample Site RIGHT RADIAL 02/08/22 08:29 ABG pH 7.32 (7.35-7.45) L 02/08/22 08:29 ABG pCO2 45 mmHg (34-45) 02/08/22 08:29 ABG pO2 63 mmHg (80-100) L 02/08/22 08:29 ABG HCO3 22.4 mmol/L (22.0-26.0) 02/08/22 08:29 ABG Total CO2 23.8 MMOL/L (21.0-29.0) 02/08/22 08:29 ABG O2 Saturation 92 % (94-98) L 02/08/22 08:29 ABG Base Excess -3.8 mmol/L (-2.0-3.0) L 02/08/22 08:29 Elio Test POSITIVE 02/08/22 08:29 O2 Delivery Device NASAL CANNULA 02/08/22 08:29 O2 Liters/Min 2.00 LPM 02/08/22 08:29 Sodium 140 mmol/L (135-145) 02/17/22 05:15 Potassium 4.3 mmol/L (3.5-5.0) 02/17/22 05:15 Chloride 106 mmol/L (101-111) 02/17/22 05:15 Carbon Dioxide 27 mmol/L (21-32) 02/17/22 05:15 Anion Gap 7.0 (6-13) 02/17/22 05:15 BUN 21 mg/dL (6-20) H 02/17/22 05:15 Creatinine 0.9 mg/dL (0.4-1.0) 02/17/22 05:15 Estimated GFR (MDRD) 64 (>89) L 02/17/22 05:15 Glucose 205 mg/dL (70-100) H 02/17/22 05:15 POC Whole Bld Glucose 245 mg/dL (70 - 100) H 02/17/22 11:04 Estimat Average Glucose 128 mg/dL (70-100) H 02/08/22 05:10 Hemoglobin A1c % 6.1 % (4.27-6.07) H 02/08/22 05:10 Lactic Acid 1.5 mmol/L (0.5-2.2) 02/07/22 20:21 Calcium 9.2 mg/dL (8.5-10.3) 02/17/22 05:15 Magnesium 2.0 mg/dL (1.7-2.8) 02/08/22 05:10 Total Bilirubin 0.5 mg/dL (0.2-1.0) 02/08/22 05:10 AST 16 IU/L (10-42) 02/08/22 05:10 ALT 19 IU/L (10-60) 02/08/22 05:10 Alkaline Phosphatase 91 IU/L (42-121) 02/08/22 05:10 Troponin I High Sens 6.9 ng/L (2.3-14.8) 02/13/22 14:00 B-Natriuretic Peptide 42 pg/mL (5-100) 02/07/22 20:21 Total Protein 6.6 g/dL (6.7-8.2) L 02/08/22 05:10 Albumin 3.3 g/dL (3.2-5.5) 02/08/22 05:10 Globulin 3.3 g/dL (2.1-4.2) 02/08/22 05:10 Albumin/Globulin Ratio 1.0 (1.0-2.2) 02/08/22 05:10 Triglycerides 50 mg/dL (-149) 02/08/22 05:10 Cholesterol 146 mg/dL (-199) 02/08/22 05:10 LDL Cholesterol, Calc 102 mg/dL (-129) 02/08/22 05:10 VLDL Cholesterol 10 mg/dL 02/08/22 05:10 HDL Cholesterol 34 mg/dL (60-) L 02/08/22 05:10 LDL/HDL Ratio 3.0 (<4.4) 02/08/22 05:10 Cholesterol/HDL Ratio 4.3 (<4.4) 02/08/22 05:10 Lipase 42 U/L (22-51) 02/07/22 20:21 TSH 1.49 uIU/mL (0.34-5.60) 02/08/22 05:10 Cortisol AM Sample 7.4 ug/dL 02/16/22 08:08 Nasal Adenovirus (PCR) NOT DETECTED 02/07/22 20:30 Nasal B. parapertussis DNA (PCR) NOT DETECTED 02/07/22 20:30 Nasal Coronavir 229E PCR NOT DETECTED 02/07/22 20:30 Nasal Coronavir HKU1 PCR NOT DETECTED 02/07/22 20:30 Nasal Coronavir NL63 PCR NOT DETECTED 02/07/22 20:30 Nasal Coronavir OC43 PCR NOT DETECTED 02/07/22 20:30 Nasal Enterovir/Rhinovir PCR NOT DETECTED 02/07/22 20:30 Nasal Influenza B PCR NOT DETECTED 02/07/22 20:30 Nasal Influenza A PCR NOT DETECTED 02/07/22 20:30 Nasal Parainfluen 1 PCR NOT DETECTED 02/07/22 20:30 Nasal Parainfluen 2 PCR NOT DETECTED 02/07/22 20:30 Nasal Parainfluen 3 PCR NOT DETECTED 02/07/22 20:30 Nasal Parainfluen 4 PCR NOT DETECTED 02/07/22 20:30 Nasal RSV (PCR) DETECTED A 02/07/22 20:30 Nasal B.pertussis DNA PCR NOT DETECTED 02/07/22 20:30 Nasal C.pneumoniae (PCR) NOT DETECTED 02/07/22 20:30 Clarisa Human Metapneumo PCR NOT DETECTED 02/07/22 20:30 Nasal M.pneumoniae (PCR) NOT DETECTED 02/07/22 20:30 Nasal SARS-CoV-2 (PCR) NOT DETECTED 02/07/22 20:30 - Procedures Procedures: Procedures (02/05/21) ESOPHAGOGASTRODUODENOSCOPY [EGD] W/CLOSED BIOPSY (11/29/13) INSERTION OF INFUSION DEV INTO SUP VENA CAVA, PERC APPROACH (12/28/17) MANUAL RUPT JOINT ADHES (04/27/14) TOTAL KNEE REPLACEMENT (06/16/14)
[2022-02-17] MEDS: HYDROmorphone 2 MG TABLET PO PRN (16:21)
[2022-02-17] MEDS: AMIODARONE 200 MG TABLET PO SCH (20:45)
[2022-02-17] MEDS: MONTELUKAST 10 MG TABLET PO SCH (20:45)
[2022-02-18] MEDS: SODIUM CHLORIDE FLUSH 0.9% 10 ML SYRINGE IVP SCH ×3 (00:36→18:22)
[2022-02-18] MEDS: HYDROmorphone 2 MG TABLET PO PRN ×2 (00:55→22:29)
[2022-02-18] MEDS: ALBUTEROL NEB 2.5 MG/3 ML INH PRN ×2 (01:23→22:53)
[2022-02-18] MEDS: VANCOMYCIN INJ 2 GM in SODIUM CHLORIDE 0.9% 500 ML IV SCH (03:40)
[2022-02-18 05:08] LABS: BASOPHILS % (AUTO) 0.2 %; HCT - HEMATOCRIT 40.1 % (37.0-47.0); HGB - HEMOGLOBIN 12.8 g/dL (12.0-16.0); LYMPHOCYTES % (AUTO) 4.7 %; MEAN CORPUSCULAR HEMOGLOBIN 31.8 pg (27.0-31.0); MEAN CORPUSCULAR HGB CONC 31.9 g/dL (32.0-36.0); MEAN CORPUSCULAR VOLUME 99.5 fL (81.0-99.0); MONOCYTES % (AUTO) 4.5 %; NEUTROPHILS % (AUTO) 87.8 %; PLT - PLATELET COUNT 235 10^3/uL (130-450); RED BLOOD COUNT 4.03 10^6/uL (4.20-5.40); RED CELL DISTRIBUTION WIDTH 13.3 % (12.0-15.0); WHITE BLOOD COUNT 24.4 x10^3/uL (4.8-10.8)
[2022-02-18 05:16] LABS: ABNORMAL LYMPHS % (MANUAL) 0 %; BAND NEUTROPHILS % (MANUAL) 0 %
[2022-02-18 05:17] LABS: CALCIUM 9.4 mg/dL (8.5-10.3); POTASSIUM 4.2 mmol/L (3.5-5.0)
[2022-02-18] MEDS: methocarbamoL 500 MG TABLET PO PRN ×2 (05:28→18:29)
[2022-02-18] MEDS: BENZONATATE 100 MG CAPSULE PO PRN ×2 (05:28→22:29)
[2022-02-18 05:50] LABS: LYMPHOCYTES % (MANUAL) 8 %; METAMYELOCYTES % (MANUAL) 1 %; MYELOCYTES % (MANUAL) 1 %; RBC MORPHOLOGY (MULTIPLE) NORMAL APPEARANCE (NORMAL)
[2022-02-18 05:52] LABS: DIFFERENTIAL COMMENT MANUAL DIFFERENTIAL; PLATELET ESTIMATE, MANUAL NORMAL (130-450,000) (NORMAL)
[2022-02-18] MEDS: traMADol 50 MG TABLET PO PRN ×2 (06:30→18:30)
[2022-02-18] MEDS: IPRATROPIUM/ALBUTEROL 3 ML NEB INH SCH ×4 (06:52→17:46)
[2022-02-18] MEDS: BUDESONIDE 0.5 MG/2 ML NEB INH SCH ×2 (06:52→17:46)
[2022-02-18] MEDS: CEFEPIME 1 GM in SODIUM CHLORIDE 0.9% MINIBAG 100 ML IV SCH (07:39)
[2022-02-18] MEDS: ASCORBIC ACID 500 MG TABLET PO SCH (08:02)
[2022-02-18] MEDS: guaiFENesin 600 MG TABLET PO SCH ×2 (08:02→20:47)
[2022-02-18] MEDS: SPIRONOLACTONE 25 MG TABLET PO SCH (08:02)
[2022-02-18] MEDS: APIXABAN 5 MG TABLET PO SCH ×2 (08:02→20:47)
[2022-02-18] MEDS: MULTIVITAMIN TABLET PO SCH (08:03)
[2022-02-18] MEDS: LOSARTAN 50 MG TABLET PO SCH (08:03)
[2022-02-18] MEDS: METOPROLOL SUCCINATE 25 MG TABLET PO SCH ×2 (08:04→20:47)
[2022-02-18] MEDS: INSULIN LISPRO 300 UNIT/3 ML PEN SUBQ SCH ×4 (08:06→20:47)
[2022-02-18] MEDS: methylPREDNISolone SUCCINATE 40 MG/ML VIAL IVP SCH ×2 (08:06→20:46)
[2022-02-18] MEDS: FLUTICASONE NASAL SPRAY NAS SCH (08:08)
[2022-02-18] MEDS: polyethylene glycoL 3350 17 GM PACKET PO SCH (09:03)
[2022-02-18] MEDS: IBUPROFEN 600 MG TABLET PO SCH ×3 (12:47→23:44)
[2022-02-18] MEDS: MONTELUKAST 10 MG TABLET PO SCH (20:47)
[2022-02-18] MEDS: AMIODARONE 200 MG TABLET PO SCH (20:47)
[2022-02-19] MEDS: SODIUM CHLORIDE FLUSH 0.9% 10 ML SYRINGE IVP SCH (01:06)
[2022-02-19] MEDS: IBUPROFEN 600 MG TABLET PO SCH (06:02)
[2022-02-19] MEDS: IPRATROPIUM/ALBUTEROL 3 ML NEB INH SCH (07:35)
[2022-02-19] MEDS: BUDESONIDE 0.5 MG/2 ML NEB INH SCH (07:35)
--- NOTE | 2022-02-19 07:53 | PROVIDER PROGRESS NOTE ---
Assessment/Plan - Problem List (1) COPD exacerbation Assessment/Plan: Due to RSV. Coughing causing rib pain and back spasms, for which we started dilaudid on 02/13 and added Tramadol on 02/16. Continue duo nebs scheduled and albuterol every 4 as needed. Continue inhaled Pulmicort twice daily scheduled. We resumed IV steroids which she got for the first several days only; unclear wh y steroids were stopped. We will start to taper the steroids now. At discharge she will either need a Medrol Dosepak or a slower taper with oral prednisone. Continue nasal cannula oxygen supplementation with humidification, and plan to taper O2, keeping sats > 88% (in a COPDer) (2) RSV infection. Slow improvement and she was truly miserable from this. Coughing caused rib pain and back spasms. We started dilaudid 02/13 for rib cage and back pain and Tramadol added on 02/16 She is requiring oxygen support. Medications at home were Singulair, Zyrtec, albuterol. She says she took jypb-hac-vonoewx NyQuil or DayQuil in the days before she came here. Medications now are: albuterol as needed, DuoNeb 4 times a day, Tessalon prn, Pulmicort, nasal Flonase, Mucinex bid. She was on deltasone 20 mg daily and then she got only 2 doses of Solu-Medrol. We ordered continuation with several more days of iv Solu-Medrol. (3) Diabetes mellitus type 2 in obese Impression: She is on an oral hypoglycemic at home in the form as of sulfonylurea. She is not on metformin. Since admission, she required ss Insulin coverage We have stopped the lantus. And will stop sliding scale Insulin since she has redused them Continue fingerstick checks for hypoglycemia protocol (4) Chronic systolic congestive heart failure Impression: This unfortunate female had V. fib in 2019 requiring close to an hour of CPR and multiple cardioversions. She finally regained pulse and pressure and was transferred to [facility]. Since that time she has had an AICD in place and is also on long-term anticoagulation for this as well as intermittent atrial fibrillation. She is on beta-julius, Amio, spironolactone, Lasix, and Lisinopril at home. She is also on Eliquis. Her Echocardiogram February 09 has mild left ventricular enlargement, moderate global hypokinesis with diastolic dysfunction indeterminate. Ejection fraction is 30 to 35%. When compared to previous echoes, December 2017 ejection fraction 50 to 55%. January 2019 ejection fraction 40 to 45%. July 2019 ejection fraction 40%. Plan: We are trying to avoid over hydrating her but she had LESLEY and is mostly hypotensive In view of the chest x-ray from 02/13 with a left effusion, we decreased her IV maintenance fluid rate, taking into account she will have IV fluids from the antibiotics. Lisinopril was changed to Losartan, because of her severe cough, which may be also from the SARAH-I. Will watch BP, urine output, creat. (5) Pain Impression: She has had severe pain in the lower rib cage/ diaphragm area and believes it is from her severe coughing. She is allergic to morphine with a "respiratory" side effect listed. She is already on Dilaudid and her pain is not controlled with this. We added tramadol prn pain We also increased her expectorant of Mucinex from daily to twice daily. Continue with Tessalon Perles prn for cough suppression IS was ordered (6) Morbid obesity, BMI 40-45 Impression: As per Hx. (7) Hypotension Impression: Improved. It is unclear why this lady had become so hypotensive again this admission. In the emergency room she was 63 systolic and she responded to 2 L of IV normal saline in that her systolic went to the high 90s/low 100s. She was not felt to be septic. She was not hemorrhaging or anemic. In reviewing the medical record she has presented twice in the last year or so with hypotension. Once was in the face of diarrhea, and the other was not clear why this lady was hypotensive and her home medications neede to be reduced. But once her blood pressure rebounded she was discharged on her same home blood pressure meds. Troponins do not indicate SD. EKG is without change on admission. Meds at home were spironolactone, Lasix, amiodarone, metoprolol, lisinopril. Here she is getting amiodarone resumed on admission, Zestril resumed 02/08 at 2.5 mg a day, Toprol resumed 02/12 at 50 mg twice daily with Pulse around 60. We decreased toprol to 25 mg bid 02/13, but blood pressure has been soft so Toprol and zestril held when needed. We will change her amiodarone to nighttime so she does not get all of her cardiac meds at once that will drop her pressure. We are changing lisinopril because of her chronic cough to Losartan today. We checked a morning cortisol level, to R/O Addisonian crisis and it was normal. Qualifiers: Hypotension type: unspecified hypotension type Qualified Code(s): I95.9 - Hypotension, unspecified (8) Secondary bacterial pneumonia Assessment/Plan: Improved. Antibx finish today A repeat chest x-ray showed she has developed a secondary bacterial pneumonia after a viral infection. Blood culture from February 13 is negative. Preliminary sputum culture has gram-positive cocci in pairs but no bacterial identification. Continue with Mucinex and made it twice daily not just daily Continue Cefepime and vancomycin, 7 days planned (9) Acute respiratory failure with hypoxemia Impression: Improved. She is usually on O2 This lady has documented COPD and now got an RSV infection, caught from her grandchild. Her COPD had decompensated in spite of being on home meds and she did require increased oxygenation needs She continues to cough, be short of breath, wheeze and has sinus congestion. By 02/12, conversation was easier, lung exam shows it to be slightly looser daily. Continue nasal cannula oxygen supplementation with humidification, taper keeping sats > 88% (in a COPDer). On day of discharge we will have her do an oximetry test to see if her home oxygen order needs to be different Continue to treat her underlying COPD, the pneumonia and RSV sx, with Mucinex, Marie Cevallos, and will stop the Lisinopril and start Losartan, since the SARAH- I could be adding to her incessant cough. (10) Acute renal failure resolved, due to ATN from hypotension Impression: Resolved Avoid nephrotoxins. Follow BMP daily Qualifiers: Acute renal failure type: unspecified Qualified Code(s): N17.9 - Acute kidney failure, unspecified - Current Meds Current Meds: Current Medications Generic Name Dose Route Start Last Admin Trade Name Freq PRN Reason Stop Dose Admin Albuterol 2.5 mg 02/08/22 00:46 02/18/22 22:53 Albuterol Neb 2.5 Mg/3 Ml INH 2.5 mg RTQ4H PRN Administration Wheezing Albuterol/Ipratropium 3 ml 02/09/22 11:00 02/19/22 07:35 Ipratropium/Albuterol 3 Ml Neb INH 3 ml RTQID ROMAN Administration Amiodarone HCl 100 mg 02/17/22 21:00 02/18/22 20:47 Amiodarone 200 Mg Tablet PO 100 mg QPM ROMAN Administration Apixaban 5 mg 02/08/22 09:00 02/18/22 20:47 Apixaban 5 Mg Tablet PO 5 mg BID ROMAN Administration Ascorbic Acid 500 mg 02/08/22 09:00 02/18/22 08:02 Ascorbic Acid 500 Mg Tablet PO 500 mg DAILY ROMAN Administration Benzonatate 100 mg 02/08/22 00:44 02/18/22 22:29 Benzonatate 100 Mg Capsule PO 100 mg TID PRN Administration Cough Budesonide 0.5 mg 02/08/22 00:40 02/19/22 07:35 Budesonide 0.5 Mg/2 Ml Neb INH 0.5 mg RTBID ROMAN Administration Fluticasone Propionate 2 sprays 02/09/22 09:00 02/18/22 08:08 Fluticasone Nasal [place] CLARISA 2 spr DAILY ROMAN Administration Glipizide 5 mg 02/17/22 08:00 02/18/22 09:03 Glipizide Er 2.5 Mg Tablet PO 5 mg DAILYWM ROMAN Administration Guaifenesin 600 mg 02/15/22 21:00 02/18/22 20:47 Guaifenesin 600 Mg Tablet PO 600 mg BID ROMAN Administration Hydromorphone HCl 2 mg 02/13/22 16:34 02/18/22 22:29 Hydromorphone 2 Mg Tablet PO 2 mg Q6HR PRN Administration Severe Pain Ibuprofen 600 mg 02/18/22 12:00 02/19/22 06:02 Ibuprofen 600 Mg Tablet PO 600 mg Q6HR ROMAN Administration Insulin Human Lispro 1 - 9 unit 02/17/22 08:00 02/18/22 20:47 Insulin Lispro 300 Unit/3 Ml Pen SUBQ 5 unit 0800,1200,1700,2100 ROMAN Administration Protocol Losartan Potassium 25 mg 02/16/22 09:00 02/18/22 08:03 Losartan 50 Mg Tablet PO 25 mg DAILY ROMAN Administration Methocarbamol 500 mg 02/09/22 09:03 02/18/22 18:29 Methocarbamol 500 Mg Tablet PO 500 mg Q6HR PRN Administration Spasms Methylprednisolone 40 mg 02/17/22 18:00 02/18/22 20:46 Methylprednisolone Succinate 40 Mg/Ml Vial IVP 40 mg BID ROMAN Administration Metoprolol Succinate 25 mg 02/18/22 07:39 02/18/22 20:47 Metoprolol Succinate 25 Mg Tablet PO Not Given BID ROMAN Montelukast Sodium 10 mg 02/15/22 21:00 02/18/22 20:47 Montelukast 10 Mg Tablet PO 10 mg QPM ROMAN Administration Multivitamins 1 tab 02/08/22 08:00 02/18/22 08:03 Multivitamin Tablet PO 1 tab DAILYWM ROMAN Administration Nitroglycerin 0.4 mg 02/13/22 10:55 02/13/22 11:04 Nitroglycerin Sl 0.4 Mg Tablet SL 0.4 mg Q5MIN PRN Administration Chest Pain Polyethylene Glycol 17 gm 02/13/22 09:00 02/18/22 09:03 Polyethylene Glycol 3350 17 Gm Packet PO Not Given DAILY ROMAN Sodium Chloride 10 ml 02/08/22 00:33 02/17/22 06:57 Sodium Chloride Flush 0.9% 10 Ml Syringe IVP 10 ml PRN PRN Administration NEEDED PER PROVIDER ORDERS Sodium Chloride 10 ml 02/08/22 01:00 02/19/22 01:06 Sodium Chloride Flush 0.9% 10 Ml Syringe IVP Not Given 0100,0900,1700 [facility] Spironolactone 25 mg 02/08/22 12:28 02/18/22 08:02 Spironolactone 25 Mg Tablet PO 25 mg DAILY ROMAN Administration Tramadol HCl 50 mg 02/15/22 16:42 02/18/22 18:30 Tramadol 50 Mg Tablet PO 50 mg Q4HR PRN Administration PAIN - Lab Result Fish Bone Diagrams: 02/18/22 04:37 02/18/22 04:37 - Additional Planning My Orders: My Active Orders 02/18/22 07:39 Metoprolol Succinate [Toprol Xl] 25 mg PO BID 02/18/22 12:00 Ibuprofen [Motrin] 600 mg PO Q6HR 02/19/22 07:51 Oxygen Desat. Study w/Exercise [RC] .ONCE Subjective - Subjective Patient Reports: Cough, Headache (Requesting Motrin, since Tylenol did not help.) Nursing Reports: Other (She is ambulating in the hallways with PT using a walker, on suppl O2) Objective Vital Signs: Vital Signs - 24 hr 02/18/22 02/18/22 02/18/22 10:34 15:34 15:36 Temperature Heart Rate 78 73 Heart Rate [ Brachial] Respiratory 18 20 Rate Blood Pressure [Right Brachial artery] O2 Saturation If not protocol 2 2 2 : Oxygen Flow, liters/minute 02/18/22 02/18/22 02/18/22 16:00 17:50 22:55 Temperature 36.7 C Heart Rate 69 60 Heart Rate [ 74 Brachial] Respiratory 20 20 20 Rate Blood Pressure 113/53 L [Right Brachial artery] O2 Saturation 95 If not protocol 2 2 2 : Oxygen Flow, liters/minute 02/19/22 02/19/22 02/19/22 00:09 03:10 07:23 Temperature 36.6 C 37 C 36.7 C Heart Rate Heart Rate [ 62 61 61 Brachial] Respiratory 18 20 20 Rate Blood Pressure 116/46 L 109/46 L 122/58 L [Right Brachial artery] O2 Saturation 94 95 96 If not protocol 2 2 : Oxygen Flow, liters/minute 02/19/22 07:36 Temperature Heart Rate 65 Heart Rate [ Brachial] Respiratory 22 Rate Blood Pressure [Right Brachial artery] O2 Saturation If not protocol 2 : Oxygen Flow, liters/minute Oxygen O2 Source [With Activity] Room air O2 Source Nasal cannula Oxygen Flow Rate 3 I&O (Last 24 Hrs): Intake and Output Totals x24h 02/17/22 02/18/22 02/19/22 23:59 23:59 23:59 Intake Total 4000 3815.833 480 Output Total 4700 5350 1475 Balance -700 -1154.270 -995 General: Alert, Oriented x3 HEENT: Mucous membr. moist/pink, Other ([place] O2 n.c.) Neck: Supple, Other (Obese and cannot evaluate JVP) Cardiovascular: Regular rate Respiratory: Wheezes (Scattered and minimal) Abdomen: Normal bowel sounds, Soft, Other (Obese with pannus) Extremities: No clubbing, No edema - Results Results: Laboratory Results WBC 24.4 x10^3/uL (4.8-10.8) H 02/18/22 04:37 RBC 4.03 10^6/uL (4.20-5.40) L 02/18/22 04:37 Hgb 12.8 g/dL (12.0-16.0) 02/18/22 04:37 Hct 40.1 % (37.0-47.0) 02/18/22 04:37 MCV 99.5 fL (81.0-99.0) H 02/18/22 04:37 MCH 31.8 pg (27.0-31.0) H 02/18/22 04:37 MCHC 31.9 g/dL (32.0-36.0) L 02/18/22 04:37 RDW 13.3 % (12.0-15.0) 02/18/22 04:37 Plt Count 235 10^3/uL (130-450) 02/18/22 04:37 MPV 10.0 fL (7.9-10.8) 02/18/22 04:37 Neut # (Auto) Not Reportable 02/18/22 04:37 Lymph # (Auto) Not Reportable 02/18/22 04:37 [place] # (Auto) Not Reportable 02/18/22 04:37 Eos # (Auto) Not Reportable 02/18/22 04:37 Baso # (Auto) Not Reportable 02/18/22 04:37 Absolute Nucleated RBC Not Reportable 02/18/22 04:37 Total Counted 100 02/18/22 04:37 Band Neuts % (Manual) 0 % (0-10) 02/18/22 04:37 Abnorm Lymph % (Manual) 0 % 02/18/22 04:37 Metamyelocytes % 1 % (-0) H 02/18/22 04:37 Myelocytes % 1 % (-0) H 02/18/22 04:37 Nucleated RBC % Not Reportable 02/18/22 04:37 Neutrophils # (Manual) 21.0 10^3/uL (1.5-6.6) H 02/18/22 04:37 Lymphocytes # (Manual) 2.0 10^3/uL (1.5-3.5) 02/18/22 04:37 Monocytes # (Manual) 1.0 10^3/uL (0.0-1.0) 02/18/22 04:37 Eosinophils # (Manual) 0.0 10^3/uL (0-0.7) 02/18/22 04:37 Basophils # (Manual) 0.0 10^3/uL (0-0.1) 02/18/22 04:37 Differential Comment MANUAL DIFFERENTIAL 02/18/22 04:37 WBC Morphology NORMAL APPEARANCE (NORMAL) 02/17/22 05:15 Platelet Estimate NORMAL (130-450,000) (NORMAL) 02/18/22 04:37 Platelet Morphology NORMAL APPEARANCE (NORMAL) 02/17/22 05:15 RBC Morph Micro Appear NORMAL APPEARANCE (NORMAL) 02/18/22 04:37 Bld Gas Analysis Time 82802/08/22 08:29 Sample Site RIGHT RADIAL 02/08/22 08:29 ABG pH 7.32 (7.35-7.45) L 02/08/22 08:29 ABG pCO2 45 mmHg (34-45) 02/08/22 08:29 ABG pO2 63 mmHg (80-100) L 02/08/22 08:29 ABG HCO3 22.4 mmol/L (22.0-26.0) 02/08/22 08:29 ABG Total CO2 23.8 MMOL/L (21.0-29.0) 02/08/22 08:29 ABG O2 Saturation 92 % (94-98) L 02/08/22 08:29 ABG Base Excess -3.8 mmol/L (-2.0-3.0) L 02/08/22 08:29 Elio Test POSITIVE 02/08/22 08:29 O2 Delivery Device NASAL CANNULA 02/08/22 08:29 O2 Liters/Min 2.00 LPM 02/08/22 08:29 Sodium 136 mmol/L (135-145) 02/18/22 04:37 Potassium 4.2 mmol/L (3.5-5.0) 02/18/22 04:37 Chloride 102 mmol/L (101-111) 02/18/22 04:37 Carbon Dioxide 28 mmol/L (21-32) 02/18/22 04:37 Anion Gap 6.0 (6-13) 02/18/22 04:37 BUN 27 mg/dL (6-20) H 02/18/22 04:37 Creatinine 1.0 mg/dL (0.4-1.0) 02/18/22 04:37 Estimated GFR (MDRD) 57 (>89) L 02/18/22 04:37 Glucose 241 mg/dL (70-100) H 02/18/22 04:37 POC Whole Bld Glucose 211 mg/dL (70 - 100) H 02/19/22 07:22 Estimat Average Glucose 128 mg/dL (70-100) H 02/08/22 05:10 Hemoglobin A1c % 6.1 % (4.27-6.07) H 02/08/22 05:10 Lactic Acid 1.5 mmol/L (0.5-2.2) 02/07/22 20:21 Calcium 9.4 mg/dL (8.5-10.3) 02/18/22 04:37 Magnesium 2.0 mg/dL (1.7-2.8) 02/08/22 05:10 Total Bilirubin 0.5 mg/dL (0.2-1.0) 02/08/22 05:10 AST 16 IU/L (10-42) 02/08/22 05:10 ALT 19 IU/L (10-60) 02/08/22 05:10 Alkaline Phosphatase 91 IU/L (42-121) 02/08/22 05:10 Troponin I High Sens 6.9 ng/L (2.3-14.8) 02/13/22 14:00 B-Natriuretic Peptide 42 pg/mL (5-100) 02/07/22 20:21 Total Protein 6.6 g/dL (6.7-8.2) L 02/08/22 05:10 Albumin 3.3 g/dL (3.2-5.5) 02/08/22 05:10 Globulin 3.3 g/dL (2.1-4.2) 02/08/22 05:10 Albumin/Globulin Ratio 1.0 (1.0-2.2) 02/08/22 05:10 Triglycerides 50 mg/dL (-149) 02/08/22 05:10 Cholesterol 146 mg/dL (-199) 02/08/22 05:10 LDL Cholesterol, Calc 102 mg/dL (-129) 02/08/22 05:10 VLDL Cholesterol 10 mg/dL 02/08/22 05:10 HDL Cholesterol 34 mg/dL (60-) L 02/08/22 05:10 LDL/HDL Ratio 3.0 (<4.4) 02/08/22 05:10 Cholesterol/HDL Ratio 4.3 (<4.4) 02/08/22 05:10 Lipase 42 U/L (22-51) 02/07/22 20:21 TSH 1.49 uIU/mL (0.34-5.60) 02/08/22 05:10 Cortisol AM Sample 7.4 ug/dL 02/16/22 08:08 Nasal Adenovirus (PCR) NOT DETECTED 02/07/22 20:30 Nasal B. parapertussis DNA (PCR) NOT DETECTED 02/07/22 20:30 Nasal Coronavir 229E PCR NOT DETECTED 02/07/22 20:30 Nasal Coronavir HKU1 PCR NOT DETECTED 02/07/22 20:30 Nasal Coronavir NL63 PCR NOT DETECTED 02/07/22 20:30 Nasal Coronavir OC43 PCR NOT DETECTED 02/07/22 20:30 Nasal Enterovir/Rhinovir PCR NOT DETECTED 02/07/22 20:30 Nasal Influenza B PCR NOT DETECTED 02/07/22 20:30 Nasal Influenza A PCR NOT DETECTED 02/07/22 20:30 Nasal Parainfluen 1 PCR NOT DETECTED 02/07/22 20:30 Nasal Parainfluen 2 PCR NOT DETECTED 02/07/22 20:30 Nasal Parainfluen 3 PCR NOT DETECTED 02/07/22 20:30 Nasal Parainfluen 4 PCR NOT DETECTED 02/07/22 20:30 Nasal RSV (PCR) DETECTED A 02/07/22 20:30 Nasal B.pertussis DNA PCR NOT DETECTED 02/07/22 20:30 Nasal C.pneumoniae (PCR) NOT DETECTED 02/07/22 20:30 Clarisa Human Metapneumo PCR NOT DETECTED 02/07/22 20:30 Nasal M.pneumoniae (PCR) NOT DETECTED 02/07/22 20:30 Nasal SARS-CoV-2 (PCR) NOT DETECTED 02/07/22 20:30 - Procedures Procedures: Procedures (02/05/21) ESOPHAGOGASTRODUODENOSCOPY [EGD] W/CLOSED BIOPSY (11/29/13) INSERTION OF INFUSION DEV INTO SUP VENA CAVA, PERC APPROACH (12/28/17) MANUAL RUPT JOINT ADHES (04/27/14) TOTAL KNEE REPLACEMENT (06/16/14)
[2022-02-19] MEDS: INSULIN LISPRO 300 UNIT/3 ML PEN SUBQ SCH (08:22)
[2022-02-19] MEDS: methylPREDNISolone SUCCINATE 40 MG/ML VIAL IVP SCH (08:23)
[2022-02-19] MEDS: LOSARTAN 50 MG TABLET PO SCH (08:23)
[2022-02-19] MEDS: APIXABAN 5 MG TABLET PO SCH (08:23)
[2022-02-19] MEDS: ASCORBIC ACID 500 MG TABLET PO SCH (08:24)
[2022-02-19] MEDS: METOPROLOL SUCCINATE 25 MG TABLET PO SCH (08:24)
[2022-02-19] MEDS: guaiFENesin 600 MG TABLET PO SCH (08:24)
[2022-02-19] MEDS: MULTIVITAMIN TABLET PO SCH (08:24)
[2022-02-19] MEDS: FLUTICASONE NASAL SPRAY NAS SCH (08:24)
[2022-02-19] MEDS: SPIRONOLACTONE 25 MG TABLET PO SCH (08:24)
[2022-02-19] MEDS: polyethylene glycoL 3350 17 GM PACKET PO SCH (09:06)
--- NOTE | 2022-02-19 10:24 | Discharge Plan ---
Discharge Plan Problem Reviewed?: Yes Disposition: Home Health Service Condition: Fair Prescriptions: Albuterol 2.5 mg INH RTQ4H PRN #30 ea PRN Reason: Wheezing Losartan [Cozaar] 25 mg PO DAILY #15 tab Dextromethorphan HBr 15 mg PO BID PRN #10 cap PRN Reason: Cough methylPREDNISolone [Medrol] 4 - 16 mg PO 0800 #10 tablet guaiFENesin [Mucinex] 600 mg PO BID PRN #10 tab PRN Reason: As Needed Per Provider Orders Budesonide [Pulmicort] 0.5 mg INH BID #60 ea Metoprolol Succinate [Toprol Xl] 25 mg PO BID #30 tab Diet: Diabetic (Low salt, Diabetic diet) Activity Restrictions: Activity as Tolerated Assistance Devices: Walker, Cane Health Concerns: You were hospitalized because of a COPD exacerbation caused by the Respiratory Syncytial Virus (RSV), that you probably caught from family members. You also developed a secondary bacterial pneumonia. You have finished IV antibiotics to treat the pneumonia and you needed nebulized meds and iv steroids. You are being discharged home and advised to resume your usual pre-hospital medications. But some have been changed: STOP taking Lisinopril, it is adding to your cough. In it's place you are on a new medicine called Losartan to take now. DECREASE your Toprol dose from 1 tablet twice a day to half tablet twice a day (because of low blood pressure). There are 2 new medications ordered to use via a nebulizer machine (Albuterol and Pulmicort). And a new nebulizer machine was also ordered for you through your oxygen company. A new prescription has been ordered for an oral steroid taper using Medrol. Follow the instructions on the bottle for tapering it down. There is also a new prescription for Dextromethorphan (this would substitute for Tessalon Perles), take if you need for incessant coughing. There is also a new prescription for Mucinex, to help break up the phlegm, so you can cough it up. All the new medicines were electronically prescribed to your [facility] pharmacy in [place]. You were tested to see if your home oxygen settings should be different and they should be: Set your OXYGEN at 2 L/min at rest, and increase it to 3 L/min with any activity. An order for a less heavy oxygen concentrator has also been submitted for you to your oxygen company. You will get [facility] to resume their services at your house. Plan of Treatment: As above. Care Goals: Improvement in symptoms and stabilization are the goals. Assessment: The patient understands and is agreeable with the plan. Additional Instructions or Follow Up instructions: You should see your primary care provider in 1 to 2 weeks for hospital follow-up visit. If you have new or worsening symptoms, call your primary care provider for advice, or come to the ER. You qualify for being referred to the Cardiac and Pulmonary Rehab center here (previously called the [facility]), to do pulmonary rehab, because of your COPD. An order would need to be sent in from your doctor. Follow-Up Care: [facility] - Pulmonary No Smoking: If you smoke, Please STOP! Call for help. Follow-up with: Yolanda Thacker ARNP [Primary Care Provider] -
--- NOTE | 2022-02-19 10:57 | DISCHARGE SUMMARY ---
Discharge Summary Admit Date: 02/08/22 Discharge Date: 02/19/22 Discharging Provider: Dr Esme Dockery Primary Care Provider: JO-ANN Thacker Condition at Discharge: Fair Discharge Disposition: Home Health Service - [facility] History of Present Illness: This is a 56 y/o female pt with Hx of COPD on home O2, CHF with a defibrillator, who presents with progressive SOB and decreased PO intake for several days. Her grandchild has been diagnosed with RSV. She reports rapidly progressive shortness of breath, a cough that she cannot expectorate, but has no chest pain, no fevers or chills. She reported feeling tired from coughing, and none of her inhalers have helped her and her nebulizer machine does not work, since it is very old. In the ED she was given a DuoNeb as well as an albuterol nebulizer treatment and a dose of Decadron. She was also given IV Ativan and Dilaudid. The patient felt a little better but was still significantly wheezy and was still reporting dyspnea. She had come in hypotensive and was treated with IV fluid bolus with improvement in her blood pressure. She was also hypoxic when she arrived with O2 sats on room air in the mid 80s but did improve to the low 90s after treatments and with her 2 L of oxygen per nasal cannula. EKG was unremarkable and labs showed a normal BNP and normal serial troponins. She tested (+) for RSV. We felt this patient was having COPD exacerbation secondary to RSV, and did not feel she had improved enough to go home, and needing hospitalization. The Hospitalist team admitted her. - HOSPITAL COURSE Hospital Course: (1) Acute respiratory failure with hypoxemia Her COPD had decompensated in spite of being on home meds and she did require increased oxygenation needs. She was extremely tachypneic for days and continued to cough, be short of breath, wheeze and have sinus congestion. We continued nasal cannula oxygen supplementation with humidification, tapering down keeping sats > 88% (in a COPDer). We treated her underlying COPD exacerbatiom, a secondary pneumonia (see below) and RSV sx with Mucinex, Tessalon Perles, and we stopped the Lisinopril and started Losartan, since the SARAH-I could have been adding to her incessant cough. This patient is already on home oxygen services through [facility] at 2 L/min continuously. On day of discharge, she underwent an oximetry test: Her oxygen needs have now increased. At rest, on room air, her O2 sats were 83%. On 2 L/min at rest, her O2 sats are 94%. With ambulation on 2 L/min, her O2 sat was 88%, and on 3 L/min with exertion, her O2 sats were 90%. I am adjusting her home O2 orders to: 2 L/min at rest, and 3 L/min with exertion, to treat her COPD. I am also ordering a home nebulizer machine to administer bronchodilators to also treat her COPD. Roxann has complained that her current portable oxygen concentrator is too heavy and has inhibited her mobility. I am requesting a sheet metal apprentice portable oxygen concentrator on the order sent to [facility], to help facilitate and improve her mobility. (2) COPD exacerbation Due to RSV. Severe coughing caused rib pain and back spasms, for which we started dilaudid and Tramadol. Her COPD was treated with duo nebs scheduled and albuterol every 4 as needed, Pulmicort via nebulizer, iv steroids and suppl O2. On the day of discharge, she was ordered to get a new nebulizer machine and new DuoNeb nebulized and Pulmicort nebulized were prescribed. She also got a prescription for Medrol (4 mg tablets) to do a quick taper. starting from 16 mg/day. (3) RSV infection. She had slow improvement and she was truly miserable from this. Coughing caused rib pain and back spasms for which she needed Dilaudid and Tramadol. She was on albuterol as needed, DuoNeb scheduled, Tessalon prn, Pulmicort neb, nasal Flonase, Mucinex bid. (4) Secondary bacterial pneumonia A repeat chest x-ray showed she has developed a secondary bacterial pneumonia after a viral infection. Preliminary sputum culture has gram-positive cocci in pairs but no bacterial identification. Blood cultures remained negative. She completed a 7 day course of iv Cefepime and vancomycin. (5) Diabetes mellitus type 2 in obese She is on an oral hypoglycemic at home in the form as of Glypizide, not on metformin. Glucoses were high while here, due to the steroid use. She was on sliding scale insulin doses. Her glipizide was ordered to be resumed at [facility] (6) Chronic systolic congestive heart failure This unfortunate female had V. fib in 2019 requiring close to an hour of CPR and multiple cardioversions. She finally regained pulse and pressure and was transferred to [facility]. Since that time she has had an AICD in place and is also on long-term anticoagulation for this and due to intermittent atrial fibrillation. She is on beta-julius, Amio, spironolactone, Lasix, Lisinopril and Eliquis at home. Her Echocardiogram done February 09, 2022 had mild left ventricular enlargement, moderate global hypokinesis with diastolic dysfunction indeterminate. LV Ejection fraction 30 to 35%. When com pared to previous Echoes, December 2017 ejection fraction was 50 to 55%, January 2019 ejection fraction 40 to 45%, July 2019 ejection fraction 40%. We tried to avoid over hydrating her but she had LESLEY and was hypotensive. Meds were adjusted. Lisinopril was changed to Losartan, because of her severe cough, which may be from the SARAH-I, and she was discharged on new Losartan. (7) Hypotension It is unclear why this lady had become so hypotensive again this admission. In the emergency room she had BP 63 systolic and she responded to 2 L of IV normal saline in that her systolic went to the high 90s/low 100s. She was not felt to be septic. She was not hemorrhaging or anemic. In reviewing the medical record she has presented twice in the last year or so with hypotension. Once was in the face of diarrhea, and the other was not clear why this lady was hypotensive, and her home medications needed to be reduced, but once her blood pressure rebounded she whad been discharged on her same meds. Troponins done here did not indicate CO. We checked a morning cortisol level, to R/O Addisonian crisis and it was normal. Her med doses were adjusted and meds spread out. At the time of discharge, her medicines were mostly the same but there was a change in Toprol dose decreased and Lisinopril was stopped because of her chronic cough, but Losartan started (8) Pain She had severe pain in the lower rib cage area from her severe coughing, which was treated, and she got her usual pain meds. (9) Acute renal failure resolved, due to ATN from hypotension This resolved with just a few days of iv fluids. (10) Morbid obesity, BMI 40-45 As per Hx. - ALLERGIES Allergies/Adverse Reactions: Allergies Allergy/AdvReac Type Severity Reaction Status Date / Time codeine [Codeine] Allergy Severe Swelling/Hi Verified 02/07/22 20:12 ves erythromycin base Allergy Severe Anaphylaxis Verified 02/07/22 20:12 [Erythromycin Base] gabapentin Allergy Severe Anaphylaxis Verified 02/07/22 20:12 Latex, Natural Rubber Allergy Severe Blisters Verified 02/07/22 20:12 pamabrom [From Midol] Allergy Severe Respiratory Verified 02/07/22 20:12 pyrilamine maleate * Allergy Severe Respiratory Verified 02/07/22 20:12 [From Midol] shellfish derived Allergy Severe Anaphylaxis Verified 02/07/22 20:12 venom-honey bee Allergy Severe Anaphylaxis Verified 02/07/22 20:12 [bee venom (honey bee)] chlorhexidine Allergy Intermediate Rash Verified 02/07/22 20:12 morphine Allergy Respiratory Verified 02/07/22 20:12 ondansetron Allergy Respiratory Verified 02/07/22 20:12 piperacillin [From Zosyn] AdvReac Rash Verified 02/07/22 20:12 tazobactam [From Zosyn] AdvReac Rash Verified 02/07/22 20:12 - MEDICATIONS Home Medications: Ambulatory Orders Medication Instructions Recorded Confirmed Furosemide 40 mg PO BIDDIURETIC 09/07/20 02/07/22 Apixaban [Eliquis] 5 mg PO BID 10/24/20 02/07/22 Albuterol Sulfate [Proair Hfa 2 puffs INH Q4H PRN #1 inh 10/29/20 02/07/22 Inhaler] Amiodarone [Pacerone] 100 mg PO DAILY 02/04/21 02/07/22 Nitroglycerin [Nitrostat] 0.4 mg PO Q5MIN PRN 03/16/21 02/07/22 EPINEPHrine [Epinephrine] 0.3 mg IM PRN PRN 12/11/21 02/07/22 Glipizide [Glipizide ER] 5 mg PO DAILY 12/11/21 02/07/22 Spironolactone [Aldactone] 25 mg PO DAILY 12/11/21 02/07/22 Cyclobenzaprine [Flexeril] 10 mg PO TID PRN 6 Days #20 tablet 12/12/21 02/07/22 HYDROcod/ACETAM 5/325 [[place] 5/325] 1 tab PO Q6H PRN #15 tablet 12/12/21 02/07/22 Cetirizine [ZyrTEC] 10 mg PO DAILY PRN 02/08/22 02/08/22 Fluticasone [Flonase] 2 sprays CLARISA DAILY 02/08/22 02/08/22 Montelukast [Singulair] 10 mg PO QPM PRN 02/08/22 02/08/22 Albuterol 2.5 mg INH RTQ4H PRN #30 ea 02/19/22 Budesonide [Pulmicort] 0.5 mg INH BID #60 ea 02/19/22 Dextromethorphan HBr 15 mg PO BID PRN #10 cap 02/19/22 Losartan [Cozaar] 25 mg PO DAILY #15 tab 02/19/22 Metoprolol Succinate [Toprol Xl] 25 mg PO BID #30 tab 02/19/22 Multivitamin [Theragran] 1 tab PO DAILYWM tab 02/19/22 guaiFENesin [Mucinex] 600 mg PO BID PRN #10 tab 02/19/22 methylPREDNISolone [Medrol] 4 - 16 mg PO 0800 #10 tablet 02/19/22 - PHYSICAL EXAM AT DISCHARGE General Appearance: positive: No acute distress, Alert, Other (Cushingoid appearing and flushed appearing) Eyes Bilateral: positive: Normal inspection, EOMI ENT: positive: ENT inspection nml, Other (wearing O2 per n.c.) Neck: positive: Nml inspection Respiratory: positive: No respiratory distress (on her O2), Breath sounds nml Cardiovascular: positive: Regular rate & rhythm, No murmur Abdomen: positive: Non-tender, No distention, Other (Obese with a pannus) Skin: positive: Warm, Dry Extremities: positive: Non-tender, No pedal edema Neurologic/Psychiatric: positive: Oriented x3 (Non-focal) - LABS Result Diagrams: 02/18/22 04:37 02/18/22 04:37 - DIAGNOSTIC IMAGING Diagnostic Imaging Results: Final report reviewed - FOLLOW UP Follow Up: See PCP for a hospital follow-up in 1-3 weeks. - TIME SPENT Time Spent in Discharge (Minutes): 50
[2022-02-19 10:58] VITALS: BP 124/63
== END 2022-02-19 11:35 | disposition home health service (06) | DRG 189 ==
LOC: ED 19:49 → MS2 02-08 00:31 → UNDOADMOB 02-08 00:31 → OBSVTOIN 02-10 15:10
PROVIDERS: ADMIT Student in an Organized Health Care Education/Training Program; ATTEND Internal Medicine
DX: J96.01 Acute respiratory failure with hypoxia (principal); J15.9 Unspecified bacterial pneumonia; N17.0 Acute kidney failure with tubular necrosis; I50.22 Chronic systolic (congestive) heart failure; Z68.41 Body mass index [BMI] 40.0-44.9, adult; J22 Unspecified acute lower respiratory infection; E11.65 Type 2 diabetes mellitus with hyperglycemia; I48.91 Unspecified atrial fibrillation; I95.9 Hypotension, unspecified; E66.01 Morbid (severe) obesity due to excess calories; M19.90 Unspecified osteoarthritis, unspecified site; I11.0 Hypertensive heart disease with heart failure; I25.10 Atherosclerotic heart disease of native coronary artery without angina pectoris; I25.2 Old myocardial infarction; J43.9 Emphysema, unspecified; E78.00 Pure hypercholesterolemia, unspecified; K21.9 Gastro-esophageal reflux disease without esophagitis; H54.7 Unspecified visual loss; H91.90 Unspecified hearing loss, unspecified ear; G89.29 Other chronic pain; M54.9 Dorsalgia, unspecified; I44.7 Left bundle-branch block, unspecified; F41.0 Panic disorder [episodic paroxysmal anxiety]; F41.9 Anxiety disorder, unspecified; Z20.822 Contact with and (suspected) exposure to COVID-19; Z79.84 Long term (current) use of oral hypoglycemic drugs; Z86.16 Personal history of COVID-19; Z95.0 Presence of cardiac pacemaker
CPT/HCPCS: 36415; 36600; 71045; 80048; 80053; 80061; 82533; 82803; 83036; 83605; 83690; 83735; 83880; 84443; 84484; 85025; 87040; 87070; 87205; 87633; 93005; 93306; 93975; 94640; 94761; 96361; 96374; 96375; 97110; 97116; 97162; 97166; 97530; 97535; 99285; 99291; A9270; J1170; J1815; J2060; J3370; J7512; J7626; 83721

== ENCOUNTER 2022-02-28 16:31 | Outpatient (CLI) | payer OTHER, MEDICARE, MEDICAID ==
--- NOTE | 2022-03-01 08:27 | XRAY Report ---
PROCEDURE: Chest 2 View X-Ray INDICATIONS: PNEUMONIA TECHNIQUE: AP and lateral chest. COMPARISON: Chest x-ray, 02/14/2020. FINDINGS: Surgical devices: There is a cardiac pacemaker. Lungs: A calcified nodule in the right upper lobe, most likely an old granuloma. Bilateral interstit ial prominence. Mediastinum: Cardiac silhouette is normal. Bones and chest wall: There are old right first, second, third and fourth rib fractures. IMPRESSION: 1. Bilateral interstitial prominence suggesting pulmonary congestion. No focal consolidation. 2. A calcified granuloma in the right upper lobe. 3. Multiple old right rib fractures. Reviewed by: Starla De Dios MD on 03/01/2022 8:26 AM PDT Approved by: Starla De Dios MD on 03/01/2022 8:26 AM PDT Station ID: [id number]
== END 2022-02-28 16:32 | disposition home or self-care (01) ==
LOC: DI.N 16:31
PROVIDERS: ATTEND Nurse Practitioner
DX: J18.9 Pneumonia, unspecified organism (principal); J84.10 Pulmonary fibrosis, unspecified
CPT/HCPCS: 36415; 80053; 83036; 85025

== ENCOUNTER 2022-03-01 08:00 | Outpatient (CLI) | payer OTHER, MEDICARE, MEDICAID ==
--- NOTE | 2022-03-01 10:55 | XRAY Report ---
PROCEDURE: Wrist 3 View LT INDICATIONS: L WRIST PX TECHNIQUE: 3 views of the wrist were acquired. COMPARISON: 06/26/2020 FINDINGS: Bones: No fractures or dislocations. No suspicious bony lesions. First carpometacarpal joint space narrowing with subchondral sclerosis Scaphoid view: Not utilized Soft tissues: No suspicious soft tissue calcifications. IMPRESSION: First carpometacarpal osteoarthritis Reviewed by: David Garcia MD on 03/01/2022 9:54 AM JORGE L Approved by: David Garcia MD on 03/01/2022 9:54 AM AKDT Station ID: [id number]
== END 2022-03-01 23:59 | disposition home or self-care (01) ==
LOC: DI.N 08:00
PROVIDERS: ATTEND Physician Assistant
DX: S60.212A Contusion of left wrist, initial encounter (principal); M19.032 Primary osteoarthritis, left wrist

== ENCOUNTER → 2022-04-23 | Outpatient (CLI) | payer MEDICARE, MEDICAID | END | disposition short-term general hospital (02) | LOC: EMS 10:47 | DX: J10.1 Influenza due to other identified influenza virus with other respiratory manifestations (principal); Z99.81 Dependence on supplemental oxygen; J44.9 Chronic obstructive pulmonary disease, unspecified | CPT/HCPCS: A0425; A0427; A0888 ==

== ENCOUNTER 2022-05-19 11:19 | Outpatient (CLI) | payer MEDICARE, MEDICAID ==
[2022-05-19 11:38] LABS: BASOPHILS % (AUTO) 0.5 %; EOSINOPHILS # (AUTO) 0.2 10^3/uL (0.0-0.7); EOSINOPHILS % (AUTO) 2.6 %; HCT - HEMATOCRIT 47.2 % (37.0-47.0); HGB - HEMOGLOBIN 15.1 g/dL (12.0-16.0); LYMPHOCYTES % (AUTO) 22.3 %; MEAN CORPUSCULAR HEMOGLOBIN 31.7 pg (27.0-31.0); MEAN PLATELET VOLUME 9.5 fL (7.9-10.8); MONOCYTES # (AUTO) 0.6 10^3/uL (0.0-1.0); MONOCYTES % (AUTO) 7.3 %; NEUTROPHILS # (AUTO) 5.9 10^3/uL (1.5-6.6); PLT - PLATELET COUNT 257 10^3/uL (130-450); RED BLOOD COUNT 4.77 10^6/uL (4.20-5.40); RED CELL DISTRIBUTION WIDTH 13.4 % (12.0-15.0); WHITE BLOOD COUNT 8.8 x10^3/uL (4.8-10.8)
[2022-05-19 11:48] LABS: MICROALBUM/CREATININE RATIO,UR 9.4 ug/mg (<30.0); MICROALBUMIN,URINE 2.9 mg/dL (0-300.0)
[2022-05-19 11:52] LABS: ALBUMIN 3.7 g/dL (3.2-5.5); ALBUMIN/GLOBULIN RATIO 1.1 (1.0-2.2); BILIRUBIN,TOTAL 0.7 mg/dL (0.2-1.0); CALCIUM 9.5 mg/dL (8.5-10.3); CREATININE 1.1 mg/dL (0.4-1.0); POTASSIUM 4.4 mmol/L (3.5-5.0); TOTAL PROTEIN 7.2 g/dL (6.7-8.2)
[2022-05-19 12:05] LABS: ESTIMATED AVERAGE GLUCOSE 160 mg/dL (70-100); HEMOGLOBIN A1c% 7.2 % (4.27-6.07)
--- NOTE | 2022-05-19 17:12 | XRAY Report ---
PROCEDURE: Chest 2 View X-Ray INDICATIONS: COPD TECHNIQUE: 2 views of the chest were acquired. COMPARISON: Chest x-ray, 02/28/2022 FINDINGS: Surgical changes and devices: None. Lungs and pleura: Bilateral interstitial prominence, suspicious for pulmonary edema secondary to con gestive heart failure. No pleural effusions or pneumothorax. There is a calcified granuloma in the ri ght upper lung zone. Mediastinum: Mediastinal contours are normal. Heart size is mildly increased. Bones and chest wall: No suspicious bony abnormalities. Multiple old right rib fractures are again n oted. Soft tissues appear unremarkable. IMPRESSION: Suspected mild congestive heart failure. Reviewed by: Starla De Dios MD on 05/19/2022 5:10 PM PST Approved by: Starla De Dios MD on 05/19/2022 5:10 PM PST Station ID: [id number]
== END 2022-05-19 11:20 | disposition home or self-care (01) ==
LOC: DI 11:19
PROVIDERS: ATTEND Nurse Practitioner
DX: J44.1 Chronic obstructive pulmonary disease with (acute) exacerbation (principal); R19.7 Diarrhea, unspecified; E11.9 Type 2 diabetes mellitus without complications
CPT/HCPCS: 36415; 80053; 82043; 82570; 83036; 85025

== ENCOUNTER 2022-06-10 11:09 | Emergency (ER) | payer MEDICARE, MEDICAID ==
--- NOTE | 2022-06-10 11:46 | ED Physician Documentation ---
PD HPI DYSPNEA - Stated complaint Stated Complaint: SOA/LOW BP - Chief complaint Chief Complaint: Resp - History obtained from History obtained from: Patient - Additional information Additional information: 57-year-old woman with history of COPD, ongoing tobacco abuse albeit down to 3 cigarettes a day, coronary artery disease with MN, A. fib presents with a dry cough but feeling like her lungs have been feeling over the last week associated with shortness of breath. She had purple legs yesterday and hypotension at home down to 80/48 or so. She denies chest pain or abdominal pain, no pedal edema. No fevers. No known sick contacts. Review of Systems Constitutional: reports: Fatigue. denies: Fever, Chills Cardiac: denies: Chest pain / pressure, Palpitations, Pedal edema, Calf pain Respiratory: reports: Dyspnea, Cough PD PAST MEDICAL HISTORY - Past Medical History Cardiovascular: Congestive heart failure, Hypertension, High cholesterol, Coronary artery disease, MN, Atrial fibrillation, Murmur, Arrhythmia Respiratory: Asthma, COPD, Emphysema, Pneumonia, Shortness of breath, Other Neuro: Headaches, Tremors Endocrine/Autoimmune: None GI: GERD COMPENSATION VICE PRESIDENT: Ectopic , Other : None, Frequency HEENT: Chronic vision loss, Chronic sinusitis, Chronic hearing loss Psych: Depression, Anxiety, Claustrophobia Musculoskeletal: Osteoarthritis, Fatigue, Chronic back pain Derm: None - Past Surgical History Past Surgical History: Yes General: Cholecystectomy, EGD Ortho: Knee replacement /COMPENSATION VICE PRESIDENT: Hysterectomy, LEEP (Cervical surgery) Cardiovascular: Cardiac catheterization HEENT: Rhinoplasty - Present Medications Home Medications: Ambulatory Orders Medication Instructions Recorded Confirmed Furosemide 40 mg PO BIDDIURETIC 09/07/20 02/07/22 Apixaban [Eliquis] 5 mg PO BID 10/24/20 02/07/22 Albuterol Sulfate [Proair Hfa 2 puffs INH Q4H PRN #1 inh 10/29/20 02/07/22 Inhaler] Amiodarone [Pacerone] 100 mg PO DAILY 02/04/21 02/07/22 Nitroglycerin [Nitrostat] 0.4 mg PO Q5MIN PRN 03/16/21 02/07/22 EPINEPHrine [Epinephrine] 0.3 mg IM PRN PRN 12/11/21 02/07/22 Glipizide [Glipizide ER] 5 mg PO DAILY 12/11/21 02/07/22 Spironolactone [Aldactone] 25 mg PO DAILY 12/11/21 02/07/22 Cyclobenzaprine [Flexeril] 10 mg PO TID PRN 6 Days #20 tablet 12/12/21 02/07/22 HYDROcod/ACETAM 5/325 [[place] 5/325] 1 tab PO Q6H PRN #15 tablet 12/12/21 02/07/22 Cetirizine [ZyrTEC] 10 mg PO DAILY PRN 02/08/22 02/08/22 Fluticasone [Flonase] 2 sprays CLARISA DAILY 02/08/22 02/08/22 Montelukast [Singulair] 10 mg PO QPM PRN 02/08/22 02/08/22 Albuterol 2.5 mg INH RTQ4H PRN #30 ea 02/19/22 Budesonide [Pulmicort] 0.5 mg INH BID #60 ea 02/19/22 Dextromethorphan HBr 15 mg PO BID PRN #10 cap 02/19/22 Losartan [Cozaar] 25 mg PO DAILY #15 tab 02/19/22 Metoprolol Succinate [Toprol Xl] 25 mg PO BID #30 tab 02/19/22 Multivitamin [Theragran] 1 tab PO DAILYWM tab 02/19/22 guaiFENesin [Mucinex] 600 mg PO BID PRN #10 tab 02/19/22 methylPREDNISolone [Medrol] 4 - 16 mg PO 0800 #10 tablet 02/19/22 HYDROcod/ACETAM 5/325 [[place] 5/325] 1 tab PO Q6H PRN #8 tablet 02/20/22 Benzonatate [Tessalon] 200 mg PO TID PRN #20 cap 06/10/22 Doxycycline [Vibramycin] 100 mg PO BID #14 tablet 06/10/22 predniSONE [Deltasone] 20 mg PO [id number] #21 tab 06/10/22 - Allergies Allergies/Adverse Reactions: Allergies Allergy/AdvReac Type Severity Reaction Status Date / Time codeine [Codeine] Allergy Severe Swelling/Hi Verified 06/10/22 11:18 ves erythromycin base Allergy Severe Anaphylaxis Verified 06/10/22 11:18 [Erythromycin Base] gabapentin Allergy Severe Anaphylaxis Verified 06/10/22 11:18 Latex, Natural Rubber Allergy Severe Blisters Verified 06/10/22 11:18 pamabrom [From Midol] Allergy Severe Respiratory Verified 06/10/22 11:18 pyrilamine maleate * Allergy Severe Respiratory Verified 06/10/22 11:18 [From Midol] shellfish derived Allergy Severe Anaphylaxis Verified 06/10/22 11:18 venom-honey bee Allergy Severe Anaphylaxis Verified 06/10/22 11:18 [bee venom (honey bee)] chlorhexidine Allergy Intermediate Rash Verified 06/10/22 11:18 morphine Allergy Respiratory Verified 06/10/22 11:18 ondansetron Allergy Respiratory Verified 06/10/22 11:18 piperacillin [From Zosyn] AdvReac Rash Verified 06/10/22 11:18 tazobactam [From Zosyn] AdvReac Rash Verified 06/10/22 11:18 - Social History Does the pt smoke?: Yes Smoking Status: Current every day smoker Does the pt drink ETOH?: No Does the pt have substance abuse?: No - Immunizations Immunizations are current?: No Immunizations: Other immun not current - POLST Patient has POLST: No POLST Status: Full Code PD ED PE NORMAL - Vitals Vital signs reviewed: Yes - General General: Alert and oriented X 3, No acute distress - HEENT HEENT: PERRL, EOMI - Neck Neck: Supple, no meningeal sign, No bony TTP - Cardiac Cardiac: RRR, No murmur, Other (Heart sounds difficult to evaluate due to loud breath sounds.) - Respiratory Respiratory: Other (Wheezy and rhonchorous throughout without focal findings, mild tachypnea but speaking in full sentences.) - Abdomen Abdomen: Non tender - Back Back: No CVA TTP, No spinal TTP - Derm Derm: Normal color, Warm and dry - Extremities Extremities: Other (Good pedal pulses, feet are warm and well-perfused, no edema.) - Neuro Neuro: Alert and oriented X 3, Normal speech Results - Vitals Vitals: Vital Signs - 24 hr 06/10/22 06/10/22 06/10/22 11:13 11:50 11:57 Temperature 36.9 C Heart Rate 85 90 88 Respiratory 32 H 18 20 Rate Blood Pressure 128/41 L O2 Saturation 96 96 06/10/22 06/10/22 12:28 13:11 Temperature Heart Rate 81 Respiratory 22 Rate Blood Pressure 122/37 L 104/60 O2 Saturation 94 Oxygen O2 Source [] Room air O2 Source Room air - EKG (time done) 1123 Rate: Rate (enter#) (87) Rhythm: NSR (w pvcs) Intervals: LBBB Ischemia: No: ST elevation c/w ischemia (neg sgarbossa) Computer interpretation: Agree with computer - Labs Labs: Laboratory Tests 06/10/22 06/10/22 06/10/22 11:44 11:44 11:44 WBC 7.6 RBC 4.82 Hgb 15.0 Hct 46.9 MCV 97.3 MCH 31.1 H MCHC 32.0 RDW 12.8 Plt Count 195 MPV 9.9 Neut # (Auto) 5.2 Lymph # (Auto) 1.5 [place] # (Auto) 0.7 Eos # (Auto) 0.2 Baso # (Auto) 0.0 Absolute Nucleated RBC 0.00 Nucleated RBC % 0.0 Sodium 135 Potassium 4.1 Chloride 98 L Carbon Dioxide 30 Anion Gap 7.0 BUN 20 Creatinine 1.1 H Estimated GFR (MDRD) 51 L Glucose 192 H Lactic Acid Calcium 8.9 Magnesium 2.0 Total Bilirubin 0.6 AST 15 ALT 15 Alkaline Phosphatase 83 B-Natriuretic Peptide 88 Total Protein 6.7 Albumin 3.5 Globulin 3.2 Albumin/Globulin Ratio 1.1 Nasal Adenovirus (PCR) Nasal B. parapertussis DNA (PCR) Nasal Coronavir 229E PCR Nasal Coronavir HKU1 PCR Nasal Coronavir NL63 PCR Nasal Coronavir OC43 PCR Nasal Enterovir/Rhinovir PCR Nasal Influenza B PCR Nasal Influenza A PCR Nasal Parainfluen 1 PCR Nasal Parainfluen 2 PCR Nasal Parainfluen 3 PCR Nasal Parainfluen 4 PCR Nasal RSV (PCR) Nasal B.pertussis DNA PCR Nasal C.pneumoniae (PCR) Clarisa Human Metapneumo PCR Nasal M.pneumoniae (PCR) Nasal SARS-CoV-2 (PCR) 06/10/22 06/10/22 11:44 11:45 WBC RBC Hgb Hct MCV MCH MCHC RDW Plt Count MPV Neut # (Auto) Lymph # (Auto) [place] # (Auto) Eos # (Auto) Baso # (Auto) Absolute Nucleated RBC Nucleated RBC % Sodium Potassium Chloride Carbon Dioxide Anion Gap BUN Creatinine Estimated GFR (MDRD) Glucose Lactic Acid 1.6 Calcium Magnesium Total Bilirubin AST ALT Alkaline Phosphatase B-Natriuretic Peptide Total Protein Albumin Globulin Albumin/Globulin Ratio Nasal Adenovirus (PCR) NOT DETECTED Nasal B. parapertussis DNA (PCR) NOT DETECTED Nasal Coronavir 229E PCR NOT DETECTED Nasal Coronavir HKU1 PCR NOT DETECTED Nasal Coronavir NL63 PCR NOT DETECTED Nasal Coronavir OC43 PCR NOT DETECTED Nasal Enterovir/Rhinovir PCR DETECTED A Nasal Influenza B PCR NOT DETECTED Nasal Influenza A PCR NOT DETECTED Nasal Parainfluen 1 PCR NOT DETECTED Nasal Parainfluen 2 PCR NOT DETECTED Nasal Parainfluen 3 PCR NOT DETECTED Nasal Parainfluen 4 PCR NOT DETECTED Nasal RSV (PCR) NOT DETECTED Nasal B.pertussis DNA PCR NOT DETECTED Nasal C.pneumoniae (PCR) NOT DETECTED Clarisa Human Metapneumo PCR NOT DETECTED Nasal M.pneumoniae (PCR) NOT DETECTED Nasal SARS-CoV-2 (PCR) NOT DETECTED PD Medical Decision Making - ED course ED course: 57-year-old woman presents with shortness of breath, history and physical most consistent with COPD exacerbation. She was feeling better after a DuoNeb and some IV fluids. Single view chest x-ray interpreted independently by me is nonspecific overcrowding, radiology felt consistent with potentially pulmonary edema, this does not corroborate to history and physical, nor does it corroborate to her BNP which is 88 normal. Lactic acid normal. CMP basically normal save mild hyperglycemia and depressed renal function which is chronic. CBC reviewed and normal. Besides the DuoNeb she also received her IV Solu- Medrol. On reexamination at 12:45 PM she is feeling well and eager for discharge. She has never been hypoxic here. Departure - Departure Disposition: 01 Home, Self Care Clinical Impression: COPD exacerbation Condition: Good Record reviewed to determine appropriate education?: Yes Instructions: COPD Dc Prescriptions: predniSONE [Deltasone] 20 mg PO [id number] #21 tab Benzonatate [Tessalon] 200 mg PO TID PRN #20 cap PRN Reason: Cough Doxycycline [Vibramycin] 100 mg PO BID #14 tablet Comments: I sent your prescriptions up to [facility] in [place]. Continue your excellent efforts to quit smoking, you are almost there!. Call your doctor to arrange a follow-up appointment, make the next available appointment. In the interim, return anytime if worse or if new symptoms develop. Discharge Date/Time: 06/10/22 13:14
[2022-06-10 11:54] LABS: BASOPHILS % (AUTO) 0.4 %; EOSINOPHILS # (AUTO) 0.2 10^3/uL (0.0-0.7); EOSINOPHILS % (AUTO) 2.1 %; HCT - HEMATOCRIT 46.9 % (37.0-47.0); LYMPHOCYTES # (AUTO) 1.5 10^3/uL (1.5-3.5); LYMPHOCYTES % (AUTO) 19.7 %; MEAN CORPUSCULAR HEMOGLOBIN 31.1 pg (27.0-31.0); MEAN CORPUSCULAR VOLUME 97.3 fL (81.0-99.0); MEAN PLATELET VOLUME 9.9 fL (7.9-10.8); MONOCYTES # (AUTO) 0.7 10^3/uL (0.0-1.0); MONOCYTES % (AUTO) 8.9 %; NEUTROPHILS # (AUTO) 5.2 10^3/uL (1.5-6.6); NEUTROPHILS % (AUTO) 68.6 %; PLT - PLATELET COUNT 195 10^3/uL (130-450); RED BLOOD COUNT 4.82 10^6/uL (4.20-5.40); RED CELL DISTRIBUTION WIDTH 12.8 % (12.0-15.0); WHITE BLOOD COUNT 7.6 x10^3/uL (4.8-10.8)
[2022-06-10] MEDS: IPRATROPIUM/ALBUTEROL 3 ML NEB INH STA (11:55)
[2022-06-10 12:08] LABS: ALBUMIN 3.5 g/dL (3.2-5.5); ALBUMIN/GLOBULIN RATIO 1.1 (1.0-2.2); BILIRUBIN,TOTAL 0.6 mg/dL (0.2-1.0); CALCIUM 8.9 mg/dL (8.5-10.3); CREATININE 1.1 mg/dL (0.4-1.0); POTASSIUM 4.1 mmol/L (3.5-5.0); TOTAL PROTEIN 6.7 g/dL (6.7-8.2)
--- NOTE | 2022-06-10 12:09 | XRAY Report ---
PROCEDURE: Chest 1 View X-Ray INDICATIONS: dyspnea TECHNIQUE: One view of the chest was acquired. COMPARISON: Chest x-ray 05/19/2022 FINDINGS: Surgical changes and devices: Pacemaker stable in appearance. Lungs and pleura: Mild increased pulmonary vascularity. Mediastinum: Mediastinal contours appear normal. Heart size is enlarged. Bones and chest wall: No suspicious bony lesions. Overlying soft tissues appear unremarkable. IMPRESSION: Cardiomegaly with increased vascular suggestive of edema. Reviewed by: Tania Kat MD on 06/10/2022 12:08 PM [facility] Approved by: Tania Kat MD on 06/10/2022 12:08 PM [facility] Station ID: [id number]
[2022-06-10] MEDS ORDERED: methylPREDNISolone SUCCINATE 125 MG/2 ML VIAL IVP STA (12:27)
[2022-06-10 12:48] LABS: CORONAVIRUS 229E-RESP PCR NOT DETECTED; CORONAVIRUS HKU1-RESP PCR NOT DETECTED; CORONAVIRUS NL63-RESP PCR NOT DETECTED; CORONAVIRUS OC43-RESP PCR NOT DETECTED; HUMAN METAPNEUMOVIRUS NOT DETECTED; INFLUENZA A- RESP PCR PANEL NOT DETECTED; RHINOVIRUS/ENTEROVIRUS DETECTED; SARS-CoV-2 -RESP PCR PANEL NOT DETECTED
[2022-06-10 12:49] LABS: B. PARAPERTUSSIS- RESP PCR PAN NOT DETECTED; B. PERTUSSIS- RESP PCR PANEL NOT DETECTED; C. PNEUMONIAE- RESP PCR PANEL NOT DETECTED; INFLUENZA B - RESP PCR PANEL NOT DETECTED; M. PNEUMONIAE- RESP PCR PANEL NOT DETECTED; PARAINFLUENZA VIRUS 1 NOT DETECTED; PARAINFLUENZA VIRUS 2 NOT DETECTED; PARAINFLUENZA VIRUS 3 NOT DETECTED; PARAINFLUENZA VIRUS 4 NOT DETECTED; RSV- RESP PCR PANEL NOT DETECTED
[2022-06-10 13:12] VITALS: BP 104/60
== END 2022-06-10 13:14 | disposition home or self-care (01) ==
LOC: ED 11:09
DX: J44.1 Chronic obstructive pulmonary disease with (acute) exacerbation (principal); F17.200 Nicotine dependence, unspecified, uncomplicated; Z20.822 Contact with and (suspected) exposure to COVID-19
CPT/HCPCS: 36415; 80053; 83605; 83735; 83880; 85025; 87633; 93005; 94640; 96374; 99284

== ENCOUNTER 2022-06-16 16:51 | Emergency (ER) | payer MEDICARE, MEDICAID ==
[2022-06-16] MEDS ORDERED: IPRATROPIUM/ALBUTEROL 3 ML NEB INH STA (17:20)
[2022-06-16] MEDS ORDERED: methylPREDNISolone SUCCINATE 125 MG/2 ML VIAL IVP STA (17:37)
[2022-06-16 17:40] LABS: BASOPHILS # (AUTO) 0.1 10^3/uL (0.0-0.1); BASOPHILS % (AUTO) 0.4 %; EOSINOPHILS # (AUTO) 0.3 10^3/uL (0.0-0.7); EOSINOPHILS % (AUTO) 2.4 %; HCT - HEMATOCRIT 47.7 % (37.0-47.0); HGB - HEMOGLOBIN 15.5 g/dL (12.0-16.0); LYMPHOCYTES # (AUTO) 2.9 10^3/uL (1.5-3.5); MEAN CORPUSCULAR HEMOGLOBIN 31.4 pg (27.0-31.0); MEAN CORPUSCULAR HGB CONC 32.5 g/dL (32.0-36.0); MEAN CORPUSCULAR VOLUME 96.6 fL (81.0-99.0); MEAN PLATELET VOLUME 9.9 fL (7.9-10.8); MONOCYTES # (AUTO) 0.9 10^3/uL (0.0-1.0); MONOCYTES % (AUTO) 7.9 %; NEUTROPHILS # (AUTO) 7.2 10^3/uL (1.5-6.6); PLT - PLATELET COUNT 234 10^3/uL (130-450); RED BLOOD COUNT 4.94 10^6/uL (4.20-5.40); RED CELL DISTRIBUTION WIDTH 12.7 % (12.0-15.0); WHITE BLOOD COUNT 11.5 x10^3/uL (4.8-10.8)
--- NOTE | 2022-06-16 17:48 | XRAY Report ---
PROCEDURE: Chest 1 View X-Ray INDICATIONS: Chest pain TECHNIQUE: One view of the chest was acquired. COMPARISON: 06/10/2022 FINDINGS: Surgical changes and devices: Dual-lead left-sided pacemaker present. Lungs and pleura: Diffuse thickening of the interstitial markings, most prominent in the perihilar r egions. Right lateral upper lobe nodule, stable. Overall low lung volumes. No visible effusion or pne umothorax. Mediastinum: Stable cardiomegaly and congested central vessels. Bones and chest wall: No suspicious bony lesions. Overlying soft tissues appear unremarkable. IMPRESSION: 1. Low lung volumes accentuate findings of CHF and interstitial edema. Reviewed by: Mattie Way MD on 06/16/2022 5:47 PM PST Approved by: Mattie Way MD on 06/16/2022 5:47 PM PST Station ID: [id number]
[2022-06-16 17:53] LABS: ALBUMIN 3.4 g/dL (3.2-5.5); ALBUMIN/GLOBULIN RATIO 1.1 (1.0-2.2); BILIRUBIN,TOTAL 0.3 mg/dL (0.2-1.0); CALCIUM 9.3 mg/dL (8.5-10.3); POTASSIUM 4.2 mmol/L (3.5-5.0); TOTAL PROTEIN 6.4 g/dL (6.7-8.2)
[2022-06-16] MEDS ORDERED: ALBUTEROL NEB 2.5 MG/3 ML INH STA (18:08)
[2022-06-16] MEDS ORDERED: FUROSEMIDE 40 MG/4 ML VIAL IVP STA (18:09)
--- NOTE | 2022-06-16 19:05 | ED Physician Documentation ---
PD HPI DYSPNEA - Stated complaint Stated Complaint: SOA,ABD PX,VOMITING, DIARRHEA - Chief complaint Chief Complaint: Resp - History obtained from History obtained from: Patient, Family - Additional information Additional information: This is a 57-year-old female with a history of COPD, Prior atrial fibrillation, WI, hypertension, CHF, tobacco use though now down to 3 cigarettes a day, who presents with shortness of breath, wheezing, nausea vomiting, diarrhea and right-sided abdominal pain. The patient was seen here on 06/10 for URI symptoms and tested positive for rhinovirus. She was given doxycycline for exacerbation of her COPD as well as steroids. She took the doxycycline except for today but states she feels like it immediately caused her diarrhea, nausea and vomiting. She also has some right-sided abdominal pain that she attributed to the doxycycline. It is along the entire right side of the abdomen and she cannot identify any alleviating or exacerbating factors. She also notes an exacerbation of her respiratory symptoms with coughing, wheezing and congestion. She is using her nebs at home and has been taking her diuretics as prescribed. She is on oxygen as needed at home. She states in the past they have recommended a CPAP or BiPAP to her but she has not been able to do it due to claustrophobia. Her preference would be not to stay in the hospital she feels like she can do nebulizer treatments and oxygen at home. Review of Systems Constitutional: reports: Reviewed and negative Eyes: reports: Reviewed and negative Ears: reports: Reviewed and negative Nose: reports: Rhinorrhea / runny nose, Congestion. denies: Sinus pressure / pain Throat: reports: Reviewed and negative Cardiac: reports: Reviewed and negative Respiratory: reports: Dyspnea, Cough, Wheezing. denies: Hemoptysis GI: reports: Abdominal Pain, Nausea, Vomiting, Diarrhea. denies: Abdominal Swelling, Constipation, Hematemesis, Bloody / black stool : reports: Reviewed and negative Skin: reports: Reviewed and negative Musculoskeletal: reports: Reviewed and negative Neurologic: reports: Reviewed and negative Psychiatric: reports: Reviewed and negative Endocrine: reports: Reviewed and negative PD PAST MEDICAL HISTORY - Past Medical History Cardiovascular: Congestive heart failure, Hypertension, High cholesterol, Coronary artery disease, WI, Atrial fibrillation, Murmur, Arrhythmia Respiratory: Asthma, COPD, Emphysema, Pneumonia, Shortness of breath, Other Neuro: Headaches, Tremors Endocrine/Autoimmune: None GI: GERD RELATIONSHIP MANAGEMENT LEAD: Ectopic , Other : None, Frequency HEENT: Chronic vision loss, Chronic sinusitis, Chronic hearing loss Psych: Depression, Anxiety, Claustrophobia Musculoskeletal: Osteoarthritis, Fatigue, Chronic back pain Derm: None - Past Surgical History Past Surgical History: Yes General: Cholecystectomy, EGD Ortho: Knee replacement /RELATIONSHIP MANAGEMENT LEAD: Hysterectomy, LEEP (Cervical surgery) Cardiovascular: Cardiac catheterization HEENT: Rhinoplasty - Present Medications Home Medications: Ambulatory Orders Medication Instructions Recorded Confirmed Furosemide 40 mg PO BIDDIURETIC 09/07/20 02/07/22 Apixaban [Eliquis] 5 mg PO BID 10/24/20 02/07/22 Albuterol Sulfate [Proair Hfa 2 puffs INH Q4H PRN #1 inh 10/29/20 02/07/22 Inhaler] Amiodarone [Pacerone] 100 mg PO DAILY 02/04/21 02/07/22 Nitroglycerin [Nitrostat] 0.4 mg PO Q5MIN PRN 03/16/21 02/07/22 EPINEPHrine [Epinephrine] 0.3 mg IM PRN PRN 12/11/21 02/07/22 Glipizide [Glipizide ER] 5 mg PO DAILY 12/11/21 02/07/22 Spironolactone [Aldactone] 25 mg PO DAILY 12/11/21 02/07/22 Cyclobenzaprine [Flexeril] 10 mg PO TID PRN 6 Days #20 tablet 12/12/21 02/07/22 HYDROcod/ACETAM 5/325 [Kemp 5/325] 1 tab PO Q6H PRN #15 tablet 12/12/21 02/07/22 Cetirizine [ZyrTEC] 10 mg PO DAILY PRN 02/08/22 02/08/22 Fluticasone [Flonase] 2 sprays CLARISA DAILY 02/08/22 02/08/22 Montelukast [Singulair] 10 mg PO QPM PRN 02/08/22 02/08/22 Albuterol 2.5 mg INH RTQ4H PRN #30 ea 02/19/22 Budesonide [Pulmicort] 0.5 mg INH BID #60 ea 02/19/22 Dextromethorphan HBr 15 mg PO BID PRN #10 cap 02/19/22 Losartan [Cozaar] 25 mg PO DAILY #15 tab 02/19/22 Metoprolol Succinate [Toprol Xl] 25 mg PO BID #30 tab 02/19/22 Multivitamin [Theragran] 1 tab PO DAILYWM tab 02/19/22 guaiFENesin [Mucinex] 600 mg PO BID PRN #10 tab 02/19/22 methylPREDNISolone [Medrol] 4 - 16 mg PO 0800 #10 tablet 02/19/22 HYDROcod/ACETAM 5/325 [Kemp 5/325] 1 tab PO Q6H PRN #8 tablet 02/20/22 Benzonatate [Tessalon] 200 mg PO TID PRN #20 cap 06/10/22 Doxycycline [Vibramycin] 100 mg PO BID #14 tablet 06/10/22 predniSONE [Deltasone] 20 mg PO [id number] #21 tab 06/10/22 - Allergies Allergies/Adverse Reactions: Allergies Allergy/AdvReac Type Severity Reaction Status Date / Time codeine [Codeine] Allergy Severe Swelling/Hi Verified 06/10/22 11:18 ves erythromycin base Allergy Severe Anaphylaxis Verified 06/10/22 11:18 [Erythromycin Base] gabapentin Allergy Severe Anaphylaxis Verified 06/10/22 11:18 Latex, Natural Rubber Allergy Severe Blisters Verified 06/10/22 11:18 pamabrom [From Midol] Allergy Severe Respiratory Verified 06/10/22 11:18 pyrilamine maleate * Allergy Severe Respiratory Verified 06/10/22 11:18 [From Midol] shellfish derived Allergy Severe Anaphylaxis Verified 06/10/22 11:18 venom-honey bee Allergy Severe Anaphylaxis Verified 06/10/22 11:18 [bee venom (honey bee)] chlorhexidine Allergy Intermediate Rash Verified 06/10/22 11:18 morphine Allergy Respiratory Verified 06/10/22 11:18 ondansetron Allergy Respiratory Verified 06/10/22 11:18 piperacillin [From Zosyn] AdvReac Rash Verified 06/10/22 11:18 tazobactam [From Zosyn] AdvReac Rash Verified 06/10/22 11:18 - Social History Does the pt smoke?: Yes Smoking Status: Current every day smoker Does the pt drink ETOH?: No Does the pt have substance abuse?: No - Immunizations Immunizations are current?: No Immunizations: Other immun not current - POLST Patient has POLST: No POLST Status: Full Code PD ED PE NORMAL - Vitals Vital signs reviewed: Yes - General General: Alert and oriented X 3, Well developed/nourished, Other (Appears in mild distress initially though later calms down and is chatting comfortably with her daughter.) - HEENT HEENT: Atraumatic, Moist mucous membranes, Pharynx benign - Neck Neck: Supple, no meningeal sign, No JVD - Cardiac Cardiac: RRR, No murmur - Respiratory Respiratory: Other (Diffuse expiratory wheezes and scattered bibasilar crackles, mildly tachypneic.) - Abdomen Abdomen: Normal bowel sounds, Soft, Non tender, Non distended, Other (No elicited pain on palpation of the right side.) - Back Back: No CVA TTP, No spinal TTP - Derm Derm: Normal color, Warm and dry, No rash - Extremities Extremities: No edema - Neuro Neuro: Alert and oriented X 3 Eye Opening: Spontaneous Motor: Obeys Commands Verbal: Oriented GCS Score: 15 - Psych Psych: Normal mood, Normal affect Results - Vitals Vitals: Vital Signs - 24 hr 06/16/22 06/16/22 06/16/22 16:57 17:40 18:37 Temperature 36.4 C L Heart Rate 86 78 76 Respiratory 40 H 26 H 20 Rate Blood Pressure 127/48 L O2 Saturation 97 If not protocol : Oxygen Flow, liters/minute 06/16/22 06/16/22 06/16/22 18:59 19:00 19:30 Temperature Heart Rate 79 76 78 Respiratory Rate Blood Pressure O2 Saturation 95 93 95 If not protocol 4 4 : Oxygen Flow, liters/minute 06/16/22 06/16/22 20:00 20:50 Temperature Heart Rate 78 80 Respiratory 25 H 25 H Rate Blood Pressure 117/61 133/93 H O2 Saturation 93 92 If not protocol 4 : Oxygen Flow, liters/minute Oxygen O2 Source [] Room air O2 Source Oxymask - EKG (time done) No standard instances Rate: Rate (enter#) (76) Rhythm: NSR Intervals: Wide QRS, LBBB Compare to prior EKG: Unchanged from prior EKG Computer interpretation: Agree with computer - Labs Labs: Laboratory Tests 06/16/22 06/16/22 06/16/22 17:30 17:30 17:30 WBC 11.5 H RBC 4.94 Hgb 15.5 Hct 47.7 H MCV 96.6 MCH 31.4 H MCHC 32.5 RDW 12.7 Plt Count 234 MPV 9.9 Neut # (Auto) 7.2 H Lymph # (Auto) 2.9 Thurston # (Auto) 0.9 Eos # (Auto) 0.3 Baso # (Auto) 0.1 Absolute Nucleated RBC 0.00 Nucleated RBC % 0.0 Sodium 140 Potassium 4.2 Chloride 100 L Carbon Dioxide 27 Anion Gap 13.0 BUN 17 Creatinine 1.0 Estimated GFR (MDRD) 57 L Glucose 173 H Lactic Acid Calcium 9.3 Total Bilirubin 0.3 AST 36 ALT 81 H Alkaline Phosphatase 78 Troponin I High Sens 15.4 H* B-Natriuretic Peptide Total Protein 6.4 L Albumin 3.4 Globulin 3.0 Albumin/Globulin Ratio 1.1 Lipase 34 Nasal Adenovirus (PCR) Nasal B. parapertussis DNA (PCR) Nasal Coronavir 229E PCR Nasal Coronavir HKU1 PCR Nasal Coronavir NL63 PCR Nasal Coronavir OC43 PCR Nasal Enterovir/Rhinovir PCR Nasal Influenza B PCR Nasal Influenza A PCR Nasal Parainfluen 1 PCR Nasal Parainfluen 2 PCR Nasal Parainfluen 3 PCR Nasal Parainfluen 4 PCR Nasal RSV (PCR) Nasal B.pertussis DNA PCR Nasal C.pneumoniae (PCR) Clarisa Human Metapneumo PCR Nasal M.pneumoniae (PCR) Nasal SARS-CoV-2 (PCR) 06/16/22 06/16/22 06/16/22 17:30 19:25 19:39 WBC RBC Hgb Hct MCV MCH MCHC RDW Plt Count MPV Neut # (Auto) Lymph # (Auto) Thurston # (Auto) Eos # (Auto) Baso # (Auto) Absolute Nucleated RBC Nucleated RBC % Sodium Potassium Chloride Carbon Dioxide Anion Gap BUN Creatinine Estimated GFR (MDRD) Glucose Lactic Acid 2.8 H Calcium Total Bilirubin AST ALT Alkaline Phosphatase Troponin I High Sens 14.5 B-Natriuretic Peptide Total Protein Albumin Globulin Albumin/Globulin Ratio Lipase Nasal Adenovirus (PCR) NOT DETECTED Nasal B. parapertussis DNA (PCR) NOT DETECTED Nasal Coronavir 229E PCR NOT DETECTED Nasal Coronavir HKU1 PCR NOT DETECTED Nasal Coronavir NL63 PCR NOT DETECTED Nasal Coronavir OC43 PCR NOT DETECTED Nasal Enterovir/Rhinovir PCR DETECTED A Nasal Influenza B PCR NOT DETECTED Nasal Influenza A PCR NOT DETECTED Nasal Parainfluen 1 PCR NOT DETECTED Nasal Parainfluen 2 PCR NOT DETECTED Nasal Parainfluen 3 PCR NOT DETECTED Nasal Parainfluen 4 PCR NOT DETECTED Nasal RSV (PCR) NOT DETECTED Nasal B.pertussis DNA PCR NOT DETECTED Nasal C.pneumoniae (PCR) NOT DETECTED Clarisa Human Metapneumo PCR NOT DETECTED Nasal M.pneumoniae (PCR) NOT DETECTED Nasal SARS-CoV-2 (PCR) NOT DETECTED 06/16/22 19:39 WBC RBC Hgb Hct MCV MCH MCHC RDW Plt Count MPV Neut # (Auto) Lymph # (Auto) Thurston # (Auto) Eos # (Auto) Baso # (Auto) Absolute Nucleated RBC Nucleated RBC % Sodium Potassium Chloride Carbon Dioxide Anion Gap BUN Creatinine Estimated GFR (MDRD) Glucose Lactic Acid Calcium Total Bilirubin AST ALT Alkaline Phosphatase Troponin I High Sens B-Natriuretic Peptide 89 Total Protein Albumin Globulin Albumin/Globulin Ratio Lipase Nasal Adenovirus (PCR) Nasal B. parapertussis DNA (PCR) Nasal Coronavir 229E PCR Nasal Coronavir HKU1 PCR Nasal Coronavir NL63 PCR Nasal Coronavir OC43 PCR Nasal Enterovir/Rhinovir PCR Nasal Influenza B PCR Nasal Influenza A PCR Nasal Parainfluen 1 PCR Nasal Parainfluen 2 PCR Nasal Parainfluen 3 PCR Nasal Parainfluen 4 PCR Nasal RSV (PCR) Nasal B.pertussis DNA PCR Nasal C.pneumoniae (PCR) Clarisa Human Metapneumo PCR Nasal M.pneumoniae (PCR) Nasal SARS-CoV-2 (PCR) PD Medical Decision Making - ED course Complexity details: reviewed old records, reviewed results, re-evaluated patient, considered differential, d/w patient, d/w family ED course: This is a 57-year-old female with a number of past medical conditions as described above who presented with ongoing cough and URI symptoms as well as new nausea, vomiting, diarrhea and right-sided abdominal pain after starting dox ycycline on . The patient attributed the nausea vomiting and diarrhea to the doxycycline in states she has had adverse reactions in the past to a number of different antibiotics. We will have her stop that today as she is already taken about 7 days. I did obtain labs to rule out other sources of infection and to evaluate her increasing shortness of breath. Her white blood cell count is mildly elevated at 11.5, lactate is also slightly elevated at 2.8 though she is not hypotensive. She is afebrile here, and hemodynamically stable. I have low suspicion for sepsis. Her abd is soft and non tender on exam and she had no n/v/d here. Her CMP is stable. I obtained a repeat chest x- ray today that shows some CHF and interstitial edema and the patient was given an extra dose of Lasix. Her BNP is only 89 however. Her initial troponin was mildly elevated at 15.4 though patient was in mild to respiratory distress initially, follow-up is 14.5. Her EKG showed no acute changes, initial 1 had significant artifact but this was repeated and stable Compared to prior. We did give the patient a DuoNeb with some improvement in her symptoms. She was still having expiratory wheezes however I recommended a longer albuterol treatment. The patient only tolerated this for about 6 minutes or so and then requested that it be stopped. She was feeling claustrophobic and as though she could not breathe with it. I discussed other options with patient including a BiPAP however she declined stating that in the past she has not been able to tolerate those due to claustrophobia. I advised the patient that we could continue to monitor her in the ER and try neb treatment again later as well as oxygen as needed however she states that she would prefer to go home, she has her own nebs at home as well as oxygen available to her. I discussed with patient that this likely appears to be still a viral cold exacerbating her chronic CHF and COPD. I discussed supportive measures, recommended that she double her Lasix for the next 3 days due to mild fluid overload and follow-up if worsening symptoms. Her main concern was a possible reaction to doxycycline and since she has completed 7 days, I recommended she just stop it. I do not think an additional course of abx or steroids is indicated at this time. Return precautions reviewed w/ pt and her dtr. Departure - Departure Disposition: 01 Home, Self Care Clinical Impression: Chronic systolic congestive heart failure, Hypoxia Upper respiratory tract infection Qualifiers: URI type: acute nasopharyngitis (common cold) Qualified Code(s): J00 - Acute nasopharyngitis [common cold] COPD (chronic obstructive pulmonary disease) Qualifiers: COPD type: COPD with acute exacerbation Qualified Code(s): J44.1 - Chronic obstructive pulmonary disease with (acute) exacerbation Condition: Good Instructions: Heart Failure Dc, ED Viral Syndrome Comments: You have a common cold virus on top of your congestive heart failure and COPD, which caused an exacerbation in your symptoms. Your xray here showed some increased fluid in the lungs but no pneumonia. Your oxygen level here is stable. We did discuss watching you overnight and trying BiPAP or additional nebulizer treatments however at this time your preference is to go home and continue your home nebulizers and oxygen. As you just finished antibiotics and are still on steroids, I do not recommend we continue the antibiotics at this time especially as you were concerned for possible reaction to them. Continue your regular inhalers and nebulizers at home, and you may take cough or cold medication for your common cold symptoms. As we discussed, double your Lasix for the next 3 days to help with excess fluid. If you develop worsening symptoms, return to the ER. Discharge Date/Time: 06/16/22 20:51
[2022-06-16 20:28] LABS: B. PARAPERTUSSIS- RESP PCR PAN NOT DETECTED; B. PERTUSSIS- RESP PCR PANEL NOT DETECTED; C. PNEUMONIAE- RESP PCR PANEL NOT DETECTED; CORONAVIRUS 229E-RESP PCR NOT DETECTED; CORONAVIRUS HKU1-RESP PCR NOT DETECTED; CORONAVIRUS NL63-RESP PCR NOT DETECTED; CORONAVIRUS OC43-RESP PCR NOT DETECTED; HUMAN METAPNEUMOVIRUS NOT DETECTED; INFLUENZA A- RESP PCR PANEL NOT DETECTED; INFLUENZA B - RESP PCR PANEL NOT DETECTED; M. PNEUMONIAE- RESP PCR PANEL NOT DETECTED; PARAINFLUENZA VIRUS 1 NOT DETECTED; PARAINFLUENZA VIRUS 2 NOT DETECTED; PARAINFLUENZA VIRUS 3 NOT DETECTED; PARAINFLUENZA VIRUS 4 NOT DETECTED; RHINOVIRUS/ENTEROVIRUS DETECTED; RSV- RESP PCR PANEL NOT DETECTED; SARS-CoV-2 -RESP PCR PANEL NOT DETECTED
[2022-06-16 20:51] VITALS: BP 133/93
== END 2022-06-16 20:51 | disposition home or self-care (01) ==
LOC: ED 16:51
DX: J00 Acute nasopharyngitis [common cold] (principal); I50.1 Left ventricular failure, unspecified; I50.22 Chronic systolic (congestive) heart failure; R09.02 Hypoxemia; J44.1 Chronic obstructive pulmonary disease with (acute) exacerbation; F17.200 Nicotine dependence, unspecified, uncomplicated; Z20.822 Contact with and (suspected) exposure to COVID-19
CPT/HCPCS: 36415; 80053; 83605; 83690; 83880; 84484; 85025; 87040; 87633; 93005; 94640; 96374; 99284

== ENCOUNTER 2022-06-22 09:51 | Outpatient (CLI) | payer MEDICARE, MEDICAID | END 2022-06-22 09:52 | disposition left against medical advice (07) | LOC: EMS 09:51 | DX: R06.02 Shortness of breath (principal) ==

== ENCOUNTER 2022-07-13 08:16 | Emergency (ER) | payer MEDICARE, MEDICAID ==
[2022-07-13 09:10] LABS: BASOPHILS % (AUTO) 0.2 %; EOSINOPHILS # (AUTO) 0.1 10^3/uL (0.0-0.7); EOSINOPHILS % (AUTO) 1.6 %; HCT - HEMATOCRIT 50.1 % (37.0-47.0); HGB - HEMOGLOBIN 15.9 g/dL (12.0-16.0); MEAN CORPUSCULAR HEMOGLOBIN 30.8 pg (27.0-31.0); MEAN CORPUSCULAR HGB CONC 31.7 g/dL (32.0-36.0); MEAN CORPUSCULAR VOLUME 97.1 fL (81.0-99.0); MEAN PLATELET VOLUME 10.1 fL (7.9-10.8); MONOCYTES # (AUTO) 0.5 10^3/uL (0.0-1.0); MONOCYTES % (AUTO) 5.2 %; NEUTROPHILS # (AUTO) 7.3 10^3/uL (1.5-6.6); NEUTROPHILS % (AUTO) 81.6 %; PLT - PLATELET COUNT 227 10^3/uL (130-450); RED BLOOD COUNT 5.16 10^6/uL (4.20-5.40); RED CELL DISTRIBUTION WIDTH 13.8 % (12.0-15.0)
[2022-07-13 09:24] LABS: ALBUMIN/GLOBULIN RATIO 1.3 (1.0-2.2); BILIRUBIN,TOTAL 0.9 mg/dL (0.2-1.0); CALCIUM 9.7 mg/dL (8.5-10.3); CREATININE 1.1 mg/dL (0.4-1.0); POTASSIUM 4.2 mmol/L (3.5-5.0); TOTAL PROTEIN 7.2 g/dL (6.7-8.2)
--- NOTE | 2022-07-13 10:01 | ED Physician Documentation ---
PD HPI ABD PAIN - Stated complaint Stated Complaint: N/V/D - Chief complaint Chief Complaint: Abd Pain - History obtained from History obtained from: Patient - History of Present Illness Timing - onset: How many days ago (3) Timing - duration: Days (3) Timing - details: Abrupt onset, Still present Quality: Cramping, Aching, Pain Location: All over / everywhere Radiation: No: Chest, Lower back, Left flank, Right flank Improved by: No: Vomiting Worsened by: Eating Associated symptoms: Nausea, Vomiting, Diarrhea (some loose but not overtly diarrhea.). No: Fever, Dysuria Similar symptoms before: No diagnosis (similar cramping pian, vomiting, nausea in the past without particular Dx. Had some adenopathy on cT.) Recently seen: Not recently seen Review of Systems Constitutional: reports: Myalgias. denies: Fever Nose: denies: Rhinorrhea / runny nose, Congestion Throat: denies: Sore throat Respiratory: denies: Cough GI: reports: Abdominal Pain (cramping wax and wane mid to general abd.), Nausea, Vomiting, Diarrhea : denies: Dysuria, Frequency Skin: denies: Rash, Lesions Neurologic: reports: Generalized weakness PD PAST MEDICAL HISTORY - Past Medical History Cardiovascular: Congestive heart failure, Hypertension, High cholesterol, Coronary artery disease, [place], Atrial fibrillation, Murmur, Arrhythmia Respiratory: Asthma, COPD, Emphysema, Pneumonia, Shortness of breath, Other Neuro: Headaches, Tremors Endocrine/Autoimmune: None GI: GERD MANAGER PHILOSOPHY: Ectopic , Other : None, Frequency HEENT: Chronic vision loss, Chronic sinusitis, Chronic hearing loss Psych: Depression, Anxiety, Claustrophobia Musculoskeletal: Osteoarthritis, Fatigue, Chronic back pain Derm: None - Past Surgical History Past Surgical History: Yes General: Cholecystectomy, EGD Ortho: Knee replacement /MANAGER PHILOSOPHY: Hysterectomy, LEEP (Cervical surgery) Cardiovascular: Cardiac catheterization HEENT: Rhinoplasty - Present Medications Home Medications: Ambulatory Orders Medication Instructions Recorded Confirmed Furosemide 40 mg PO BIDDIURETIC 09/07/20 02/07/22 Apixaban [Eliquis] 5 mg PO BID 10/24/20 02/07/22 Albuterol Sulfate [Proair Hfa 2 puffs INH Q4H PRN #1 inh 10/29/20 02/07/22 Inhaler] Amiodarone [Pacerone] 100 mg PO DAILY 02/04/21 02/07/22 Nitroglycerin [Nitrostat] 0.4 mg PO Q5MIN PRN 03/16/21 02/07/22 EPINEPHrine [Epinephrine] 0.3 mg IM PRN PRN 12/11/21 02/07/22 Glipizide [Glipizide ER] 5 mg PO DAILY 12/11/21 02/07/22 Spironolactone [Aldactone] 25 mg PO DAILY 12/11/21 02/07/22 Cyclobenzaprine [Flexeril] 10 mg PO TID PRN 6 Days #20 tablet 12/12/21 02/07/22 HYDROcod/ACETAM 5/325 [Alto 5/325] 1 tab PO Q6H PRN #15 tablet 12/12/21 02/07/22 Cetirizine [ZyrTEC] 10 mg PO DAILY PRN 02/08/22 02/08/22 Fluticasone [Flonase] 2 sprays CLARISA DAILY 02/08/22 02/08/22 Montelukast [Singulair] 10 mg PO QPM PRN 02/08/22 02/08/22 Albuterol 2.5 mg INH RTQ4H PRN #30 ea 02/19/22 Budesonide [Pulmicort] 0.5 mg INH BID #60 ea 02/19/22 Dextromethorphan HBr 15 mg PO BID PRN #10 cap 02/19/22 Losartan [Cozaar] 25 mg PO DAILY #15 tab 02/19/22 Metoprolol Succinate [Toprol Xl] 25 mg PO BID #30 tab 02/19/22 Multivitamin [Theragran] 1 tab PO DAILYWM tab 02/19/22 guaiFENesin [Mucinex] 600 mg PO BID PRN #10 tab 02/19/22 methylPREDNISolone [Medrol] 4 - 16 mg PO 0800 #10 tablet 02/19/22 HYDROcod/ACETAM 5/325 [[place] 5/325] 1 tab PO Q6H PRN #8 tablet 02/20/22 Benzonatate [Tessalon] 200 mg PO TID PRN #20 cap 06/10/22 Doxycycline [Vibramycin] 100 mg PO BID #14 tablet 06/10/22 predniSONE [Deltasone] 20 mg PO [id number] #21 tab 06/10/22 HYDROcod/ACETAM 5/325 [[place] 5/325] 1 ea PO Q6H PRN #18 tablet 07/13/22 Loperamide HCl [Imodium A-D] 2 mg PO Q6H PRN #12 tablet 07/13/22 Promethazine [Phenergan] 25 mg PO Q6H PRN #15 tab 07/13/22 - Allergies Allergies/Adverse Reactions: Allergies Allergy/AdvReac Type Severity Reaction Status Date / Time codeine [Codeine] Allergy Severe Swelling/Hi Verified 06/10/22 11:18 ves erythromycin base Allergy Severe Anaphylaxis Verified 06/10/22 11:18 [Erythromycin Base] gabapentin Allergy Severe Anaphylaxis Verified 06/10/22 11:18 Latex, Natural Rubber Allergy Severe Blisters Verified 06/10/22 11:18 pamabrom [From Midol] Allergy Severe Respiratory Verified 06/10/22 11:18 pyrilamine maleate * Allergy Severe Respiratory Verified 06/10/22 11:18 [From Midol] shellfish derived Allergy Severe Anaphylaxis Verified 06/10/22 11:18 venom-honey bee Allergy Severe Anaphylaxis Verified 06/10/22 11:18 [bee venom (honey bee)] chlorhexidine Allergy Intermediate Rash Verified 06/10/22 11:18 morphine Allergy Respiratory Verified 06/10/22 11:18 ondansetron Allergy Respiratory Verified 06/10/22 11:18 piperacillin [From Zosyn] AdvReac Rash Verified 06/10/22 11:18 tazobactam [From Zosyn] AdvReac Rash Verified 06/10/22 11:18 - Social History Does the pt smoke?: Yes Smoking Status: Current every day smoker Does the pt drink ETOH?: No Does the pt have substance abuse?: No - Immunizations Immunizations are current?: No Immunizations: Other immun not current - POLST Patient has POLST: No POLST Status: Full Code PD ED PE NORMAL - Vitals Vital signs reviewed: Yes - General General: Alert and oriented X 3, Well developed/nourished, Other (appears uncomfortable and holding emesis bag. ) - HEENT HEENT: Pharynx benign. No: Moist mucous membranes - Neck Neck: Supple, no meningeal sign, No adenopathy - Cardiac Cardiac: RRR - Respiratory Respiratory: Clear bilaterally - Abdomen Abdomen: Normal bowel sounds, Soft, Non distended, No organomegaly, Other (generally tender to palpation. No percussion tenderness. Bowel sounds present. ) Results - Vitals Vitals: Vital Signs - 24 hr 07/13/22 07/13/22 07/13/22 08:38 09:58 10:58 Temperature 37.4 C Heart Rate 77 62 78 Respiratory 16 18 19 Rate Blood Pressure 116/94 H 138/51 H O2 Saturation 93 96 If not protocol 3 3 : Oxygen Flow, liters/minute 07/13/22 11:00 Temperature Heart Rate 88 Respiratory 16 Rate Blood Pressure 119/70 O2 Saturation 97 If not protocol 3 : Oxygen Flow, liters/minute Oxygen O2 Source [With Activity] Room air O2 Source Nasal cannula - Labs Labs: Laboratory Tests 07/13/22 07/13/22 07/13/22 09:01 09:01 09:01 WBC 9.0 RBC 5.16 Hgb 15.9 Hct 50.1 H MCV 97.1 MCH 30.8 MCHC 31.7 L RDW 13.8 Plt Count 227 MPV 10.1 Neut # (Auto) 7.3 H Lymph # (Auto) 1.0 L Emanuel # (Auto) 0.5 Eos # (Auto) 0.1 Baso # (Auto) 0.0 Absolute Nucleated RBC 0.00 Nucleated RBC % 0.0 Sodium 142 Potassium 4.2 Chloride 104 Carbon Dioxide 28 Anion Gap 10.0 BUN 16 Creatinine 1.1 H Estimated GFR (MDRD) 51 L Glucose 130 H Calcium 9.7 Magnesium 1.9 Total Bilirubin 0.9 AST 20 ALT 17 Alkaline Phosphatase 73 Total Protein 7.2 Albumin 4.0 Globulin 3.2 Albumin/Globulin Ratio 1.3 Lipase 37 - Rads (name of study) abd/pelvic ct Radiology: Prelim report reviewed (mid abdomen subcentimter lymph nodes, similar to prior ct (when she had similar symptoms).), See rad report PD Medical Decision Making - ED course Complexity details: reviewed old records (Evaluation of her ED information exchange report showed 2 prescriptions for opioids in the last year, both of which from hospitalist and only for 12 tablets with the last being February 2022. I feel comfortable therefore with the short-term prescription for pain medicine.), reviewed results (ct showing some adenopathy. No acute findings otherwise. Consider inflammatory caused. Less likely infectious. ), considered differential (she seemed uncomfortable and has had vomiting/poor intake for few days, so shared decision for iv and fluids/meds. Feeling improved with meds. A ble to take sips/some fluids. ), d/w patient Drug Therapy Requiring Monitoring for Toxicity: given iv fluids as well as antiemetics and iv dilaudid for pain, antiemetics for nausea. no adverse symptoms and was feeling improved. Departure - Departure Disposition: 01 Home, Self Care Clinical Impression: Mesenteric adenitis Nausea and vomiting Qualifiers: Vomiting type: unspecified Qualified Code(s): R11.2 - Nausea with vomiting, unspecified Abdominal pain Qualifiers: Abdominal location: generalized Qualified Code(s): R10.84 - Generalized abdominal pain Condition: Stable Record reviewed to determine appropriate education?: Yes Instructions: ED Nausea Vomiting Follow-Up: Yolanda Thacker ARNP [Primary Care Provider] - Prescriptions: Loperamide HCl [Imodium A-D] 2 mg PO Q6H PRN #12 tablet PRN Reason: Diarrhea HYDROcod/ACETAM 5/325 [Alto 5/325] 1 ea PO Q6H PRN #18 tablet PRN Reason: Pain Promethazine [Phenergan] 25 mg PO Q6H PRN #15 tab PRN Reason: Nausea / Vomiting Comments: Your CT scan shows some small scattered lymph nodes through the abdomen. This can commonly be seen with a viral type illness or inflammatory conditions. There was not a local infection seen. I do not feel there is an indication for antibiotics with this. Typically it is treated with anti-inflammatories and good hydration and pain medicine. Use promethazine every 6 hours if needed for nausea. Tylenol 4 times daily for pains. Add hydrocodone/acetaminophen instead if needed for worse pain. Imodium if needed for diarrhea. Recheck if not improved over the next day or 2 and return if worsening. I sent your prescriptions to [facility] pharmacy in [place] Discharge Date/Time: 07/13/22 13:00
[2022-07-13] MEDS: SODIUM CHLORIDE 0.9% 500 ML IV STA (10:24)
[2022-07-13] MEDS: DROPERIDOL 5 MG/2 ML VIAL IVP STA (10:25)
[2022-07-13] MEDS: HYDROmorphone 1 MG/ML CARPUJECT IVP STA (10:27)
[2022-07-13] MEDS ORDERED: iohexoL-300 100 ML VIAL ONE (10:38)
[2022-07-13] MEDS: IPRATROPIUM/ALBUTEROL 3 ML NEB INH STA (10:45)
[2022-07-13 11:23] VITALS: BP 119/70
[2022-07-13] MEDS: iohexoL-300 100 ML VIAL IVP ONE (11:27)
--- NOTE | 2022-07-13 11:51 | CT Report ---
PROCEDURE: ABDOMEN/PELVIS W INDICATIONS: diffuse abd pain and vomiting CONTRAST: Omni 300 100ml TECHNIQUE: After the administration of IV contrast, 5 mm thick sections acquired from the diaphragms to the symp hysis. 5 mm thick coronal and sagittal reformats were acquired. For radiation dose reduction, the f ollowing was used: automated exposure control, adjustment of mA and/or kV according to patient size. COMPARISON: CT abdomen pelvis 02/10/2021 FINDINGS: Image quality: Excellent. ABDOMEN: Lung bases: Lung bases are clear. Heart size is normal. Solid organs: Liver is enlarged measuring 21.5 cm with steatosis. Low-attenuation focus along the me dial posterior hepatic dome on series 3 image 17 measuring 1.3 cm is present and suggestive of cyst. It is relatively unchanged compared to prior exam accounting for decreased conspicuousness secondary to steatosis. The spleen is normal in size and enhancement. Gallbladder has been removed. Biliary s ystem is non dilated. Pancreas enhances normally. No adrenal nodules. Kidneys demonstrate normal s ize and enhancement, without hydronephrosis. Incidental note of retroaortic renal vein. Peritoneum and bowel: Bowel loops demonstrate normal wall thickness and caliber. Appendix is normal. No free fluid or air. Prior focus of slight increased opacity within the mid mesenteric fat is agai n noted. Scattered subcentimeter lymph nodes are present. Nodes and vessels: No retroperitoneal or mesenteric adenopathy by size criteria. Aorta and inferior vena cava are normal in size. Miscellaneous: No ventral hernias. PELVIS: Genitourinary: Bladder wall thickness is normal. Miscellaneous: No inguinal hernias or adenopathy. Bones: No suspicious bony lesions. No vertebral body compression fractures. IMPRESSION: Persistent appearance of slight increased density with subcentimeter lymph nodes in the mid abdominal mesenteric fat without appreciable change. As previously noted, this can be related to infection or inflammation although nonspecific. No acute intra-abdominal or pelvic process. Reviewed by: Tania Kat MD on 07/13/2022 11:50 AM PST Approved by: Tania Kat MD on 07/13/2022 11:50 AM PST Station ID: [id number]
[2022-07-13] MEDS: DEXAMETHASONE 10 MG/ML VIAL IVP STA (12:45)
[2022-07-13] MEDS: DIPHENOX/ATROPINE 2.5/0.025 MG TABLET PO STA (12:45)
== END 2022-07-13 13:00 | disposition home or self-care (01) ==
LOC: ED 08:16
DX: I88.0 Nonspecific mesenteric lymphadenitis (principal); J43.9 Emphysema, unspecified; R11.2 Nausea with vomiting, unspecified; R10.84 Generalized abdominal pain; F17.200 Nicotine dependence, unspecified, uncomplicated; I11.0 Hypertensive heart disease with heart failure; I50.9 Heart failure, unspecified; I48.91 Unspecified atrial fibrillation
CPT/HCPCS: 36415; 74177; 80053; 83690; 83735; 85025; 94640; 96361; 96374; 96375; 99284; A9270; J1170; Q9967

== ENCOUNTER 2022-07-19 08:40 | Inpatient (IN) | payer MEDICARE, MEDICAID ==
[2022-07-19] MEDS ORDERED: IPRATROPIUM/ALBUTEROL 3 ML NEB INH ONE (08:56)
[2022-07-19] MEDS ORDERED: DEXAMETHASONE 10 MG/ML VIAL IV STA (08:58)
[2022-07-19] MEDS ORDERED: ALBUTEROL NEB 2.5 MG/3 ML INH STA (08:58)
[2022-07-19] MEDS ORDERED: IPRATROPIUM/ALBUTEROL 3 ML NEB INH STA ×2 (08:58→15:27)
[2022-07-19] MEDS ORDERED: LORazepam 2 MG/ML VIAL IVP STA (08:58)
[2022-07-19 09:16] LABS: BASOPHILS % (AUTO) 0.3 %; EOSINOPHILS # (AUTO) 0.1 10^3/uL (0.0-0.7); EOSINOPHILS % (AUTO) 0.7 %; HCT - HEMATOCRIT 46.2 % (37.0-47.0); HGB - HEMOGLOBIN 14.7 g/dL (12.0-16.0); LYMPHOCYTES # (AUTO) 1.3 10^3/uL (1.5-3.5); LYMPHOCYTES % (AUTO) 14.4 %; MEAN CORPUSCULAR HEMOGLOBIN 31.1 pg (27.0-31.0); MEAN CORPUSCULAR HGB CONC 31.8 g/dL (32.0-36.0); MEAN CORPUSCULAR VOLUME 97.9 fL (81.0-99.0); MEAN PLATELET VOLUME 9.7 fL (7.9-10.8); MONOCYTES # (AUTO) 0.9 10^3/uL (0.0-1.0); MONOCYTES % (AUTO) 9.7 %; NEUTROPHILS # (AUTO) 6.5 10^3/uL (1.5-6.6); NEUTROPHILS % (AUTO) 74.4 %; PLT - PLATELET COUNT 233 10^3/uL (130-450); RED BLOOD COUNT 4.72 10^6/uL (4.20-5.40); RED CELL DISTRIBUTION WIDTH 13.2 % (12.0-15.0); WHITE BLOOD COUNT 8.8 x10^3/uL (4.8-10.8)
--- NOTE | 2022-07-19 09:23 | XRAY Report ---
PROCEDURE: Chest 1 View X-Ray INDICATIONS: chest pain TECHNIQUE: One view of the chest was acquired. COMPARISON: CT 07/13/2022 FINDINGS: Surgical changes and devices: None. Lungs and pleura: Diffusely increased pulmonary markings. Mediastinum: Cardiomegaly. Bones and chest wall: No suspicious bony lesions. Overlying soft tissues appear unremarkable. IMPRESSION: Diffusely increased pulmonary markings and cardiomegaly, suggestive of pulmonary edema. Reviewed by: Marlon Gonzalez on 07/19/2022 9:[address] [facility] Approved by: Marlon Gonzalez on 07/19/2022 9:[address] [facility] Station ID: [id number]
[2022-07-19 09:29] LABS: ALBUMIN 3.3 g/dL (3.2-5.5); BILIRUBIN,TOTAL 0.5 mg/dL (0.2-1.0); CALCIUM 9.2 mg/dL (8.5-10.3); CREATININE 0.9 mg/dL (0.4-1.0); POTASSIUM 3.9 mmol/L (3.5-5.0); TOTAL PROTEIN 6.7 g/dL (6.7-8.2)
[2022-07-19] MEDS ORDERED: FUROSEMIDE 40 MG/4 ML VIAL IVP STA (10:31)
[2022-07-19 11:05] LABS: B. PARAPERTUSSIS- RESP PCR PAN NOT DETECTED; B. PERTUSSIS- RESP PCR PANEL NOT DETECTED; C. PNEUMONIAE- RESP PCR PANEL NOT DETECTED; CORONAVIRUS 229E-RESP PCR NOT DETECTED; CORONAVIRUS HKU1-RESP PCR NOT DETECTED; CORONAVIRUS NL63-RESP PCR NOT DETECTED; CORONAVIRUS OC43-RESP PCR NOT DETECTED; HUMAN METAPNEUMOVIRUS DETECTED; INFLUENZA A- RESP PCR PANEL NOT DETECTED; INFLUENZA B - RESP PCR PANEL NOT DETECTED; M. PNEUMONIAE- RESP PCR PANEL NOT DETECTED; PARAINFLUENZA VIRUS 1 NOT DETECTED; PARAINFLUENZA VIRUS 2 NOT DETECTED; PARAINFLUENZA VIRUS 3 NOT DETECTED; PARAINFLUENZA VIRUS 4 NOT DETECTED; RHINOVIRUS/ENTEROVIRUS NOT DETECTED; RSV- RESP PCR PANEL NOT DETECTED; SARS-CoV-2 -RESP PCR PANEL NOT DETECTED
--- NOTE | 2022-07-19 15:21 | ED Physician Documentation ---
History of Present Illness - Stated complaint Stated Complaint: SOA - Chief complaint Chief Complaint: Resp - History obtained from History obtained from: Patient - Additonal information Additional information: The patient comes to the emergency department chief complaint of severe difficulty breathing worsening overnight. She states that she took her inhalers multiple times including her steroid inhaler, and also, used her nebulizer machine. She states that nothing is helping. She has had some increase in edema in her lower extremities over the last few days as well. The patient denies recent illness. No fevers or chills. No nausea or vomiting. No chest pain. PD PAST MEDICAL HISTORY - Past Medical History Cardiovascular: Congestive heart failure, Hypertension, High cholesterol, Coronary artery disease, [place], Atrial fibrillation, Murmur, Arrhythmia Respiratory: Asthma, COPD, Emphysema, Pneumonia, Shortness of breath, Other Neuro: Headaches, Tremors Endocrine/Autoimmune: None GI: GERD DIGITAL MARKETING SPECIALIST: Ectopic , Other : None, Frequency HEENT: Chronic vision loss, Chronic sinusitis, Chronic hearing loss Psych: Depression, Anxiety, Claustrophobia Musculoskeletal: Osteoarthritis, Fatigue, Chronic back pain Derm: None - Past Surgical History Past Surgical History: Yes General: Cholecystectomy, EGD Ortho: Knee replacement /DIGITAL MARKETING SPECIALIST: Hysterectomy, LEEP (Cervical surgery) Cardiovascular: Cardiac catheterization HEENT: Rhinoplasty - Present Medications Home Medications: Ambulatory Orders Medication Instructions Recorded Confirmed Furosemide 40 mg PO BIDDIURETIC 09/07/20 02/07/22 Apixaban [Eliquis] 5 mg PO BID 10/24/20 02/07/22 Albuterol Sulfate [Proair Hfa 2 puffs INH Q4H PRN #1 inh 10/29/20 02/07/22 Inhaler] Amiodarone [Pacerone] 100 mg PO DAILY 02/04/21 02/07/22 Nitroglycerin [Nitrostat] 0.4 mg PO Q5MIN PRN 03/16/21 02/07/22 EPINEPHrine [Epinephrine] 0.3 mg IM PRN PRN 12/11/21 02/07/22 Glipizide [Glipizide ER] 5 mg PO DAILY 12/11/21 02/07/22 Spironolactone [Aldactone] 25 mg PO DAILY 12/11/21 02/07/22 Cyclobenzaprine [Flexeril] 10 mg PO TID PRN 6 Days #20 tablet 12/12/21 02/07/22 HYDROcod/ACETAM 5/325 [[place] 5/325] 1 tab PO Q6H PRN #15 tablet 12/12/21 02/07/22 Cetirizine [ZyrTEC] 10 mg PO DAILY PRN 02/08/22 02/08/22 Fluticasone [Flonase] 2 sprays CLARISA DAILY 02/08/22 02/08/22 Montelukast [Singulair] 10 mg PO QPM PRN 02/08/22 02/08/22 Albuterol 2.5 mg INH RTQ4H PRN #30 ea 02/19/22 Budesonide [Pulmicort] 0.5 mg INH BID #60 ea 02/19/22 Dextromethorphan HBr 15 mg PO BID PRN #10 cap 02/19/22 Losartan [Cozaar] 25 mg PO DAILY #15 tab 02/19/22 Metoprolol Succinate [Toprol Xl] 25 mg PO BID #30 tab 02/19/22 Multivitamin [Theragran] 1 tab PO DAILYWM tab 02/19/22 guaiFENesin [Mucinex] 600 mg PO BID PRN #10 tab 02/19/22 methylPREDNISolone [Medrol] 4 - 16 mg PO 0800 #10 tablet 02/19/22 HYDROcod/ACETAM 5/325 [[place] 5/325] 1 tab PO Q6H PRN #8 tablet 02/20/22 Benzonatate [Tessalon] 200 mg PO TID PRN #20 cap 06/10/22 Doxycycline [Vibramycin] 100 mg PO BID #14 tablet 06/10/22 predniSONE [Deltasone] 20 mg PO [id number] #21 tab 06/10/22 HYDROcod/ACETAM 5/325 [[place] 5/325] 1 ea PO Q6H PRN #18 tablet 07/13/22 Loperamide HCl [Imodium A-D] 2 mg PO Q6H PRN #12 tablet 07/13/22 Promethazine [Phenergan] 25 mg PO Q6H PRN #15 tab 07/13/22 - Allergies Allergies/Adverse Reactions: Allergies Allergy/AdvReac Type Severity Reaction Status Date / Time codeine [Codeine] Allergy Severe Swelling/Hi Verified 07/19/22 08:47 ves erythromycin base Allergy Severe Anaphylaxis Verified 07/19/22 08:47 [Erythromycin Base] gabapentin Allergy Severe Anaphylaxis Verified 07/19/22 08:47 Latex, Natural Rubber Allergy Severe Blisters Verified 07/19/22 08:47 pamabrom [From Midol] Allergy Severe Respiratory Verified 07/19/22 08:47 pyrilamine maleate * Allergy Severe Respiratory Verified 07/19/22 08:47 [From Midol] shellfish derived Allergy Severe Anaphylaxis Verified 07/19/22 08:47 venom-honey bee Allergy Severe Anaphylaxis Verified 07/19/22 08:47 [bee venom (honey bee)] chlorhexidine Allergy Intermediate Rash Verified 07/19/22 08:47 morphine Allergy Respiratory Verified 07/19/22 08:47 ondansetron Allergy Respiratory Verified 07/19/22 08:47 piperacillin [From Zosyn] AdvReac Rash Verified 07/19/22 08:47 tazobactam [From Zosyn] AdvReac Rash Verified 07/19/22 08:47 - Social History Does the pt smoke?: Yes Smoking Status: Current every day smoker Does the pt drink ETOH?: No Does the pt have substance abuse?: No - Immunizations Immunizations are current?: No Immunizations: Other immun not current - POLST Patient has POLST: No POLST Status: Full Code PD ED PE NORMAL - Vitals Vital signs reviewed: Yes - General General: Alert and oriented X 3, Well developed/nourished, Other (Moderate respiratory distress.) - HEENT HEENT: Atraumatic, PERRL, EOMI, Moist mucous membranes - Neck Neck: Supple, no meningeal sign - Cardiac Cardiac: RRR, No murmur, Strong equal pulses - Respiratory Respiratory: Other (Moderate expiratory wheezes and basilar crackles bilaterally, moderately decreased air movement bilaterally.) - Abdomen Abdomen: Soft, Non tender, Non distended - Derm Derm: Warm and dry - Extremities Extremities: No deformity - Neuro Neuro: Alert and oriented X 3 - Psych Psych: Normal mood, Normal affect Results - Vitals Vitals: Vital Signs - 24 hr 07/19/22 07/19/22 07/19/22 08:47 09:01 09:12 Temperature 37.6 C Heart Rate 51 L 85 90 Respiratory 40 H 36 H 32 H Rate Blood Pressure 107/52 L 137/67 H O2 Saturation 87 L 100 If not protocol 4 4 : Oxygen Flow, liters/minute 07/19/22 07/19/22 07/19/22 09:38 10:40 11:00 Temperature Heart Rate 85 83 80 Respiratory 30 H 34 H 38 H Rate Blood Pressure 106/51 L 133/92 H 130/88 H O2 Saturation 92 90 L 95 If not protocol 4 4 4 : Oxygen Flow, liters/minute 07/19/22 07/19/22 07/19/22 11:30 12:30 13:00 Temperature Heart Rate 85 81 83 Respiratory 35 H 32 H 32 H Rate Blood Pressure 126/69 104/53 L 108/74 O2 Saturation 93 91 L 91 L If not protocol 4 4 4 : Oxygen Flow, liters/minute 07/19/22 14:00 Temperature Heart Rate 80 Respiratory 26 H Rate Blood Pressure 123/66 O2 Saturation 92 If not protocol 4 : Oxygen Flow, liters/minute Oxygen O2 Source [With Activity] Room air O2 Source Nasal cannula Oxygen Flow Rate 4 - Labs Labs: Laboratory Tests 07/19/22 07/19/22 07/19/22 08:56 08:56 08:56 WBC 8.8 RBC 4.72 Hgb 14.7 Hct 46.2 MCV 97.9 MCH 31.1 H MCHC 31.8 L RDW 13.2 Plt Count 233 MPV 9.7 Neut # (Auto) 6.5 Lymph # (Auto) 1.3 L Gaston # (Auto) 0.9 Eos # (Auto) 0.1 Baso # (Auto) 0.0 Absolute Nucleated RBC 0.00 Nucleated RBC % 0.0 Sodium 142 Potassium 3.9 Chloride 101 Carbon Dioxide 32 Anion Gap 9.0 BUN 8 Creatinine 0.9 Estimated GFR (MDRD) 64 L Glucose 186 H Calcium 9.2 Total Bilirubin 0.5 AST 17 ALT 23 Alkaline Phosphatase 66 B-Natriuretic Peptide 162 H Total Protein 6.7 Albumin 3.3 Globulin 3.4 Albumin/Globulin Ratio 1.0 Lipase 32 Nasal Adenovirus (PCR) Nasal B. parapertussis DNA (PCR) Nasal Coronavir 229E PCR Nasal Coronavir HKU1 PCR Nasal Coronavir NL63 PCR Nasal Coronavir OC43 PCR Nasal Enterovir/Rhinovir PCR Nasal Influenza B PCR Nasal Influenza A PCR Nasal Parainfluen 1 PCR Nasal Parainfluen 2 PCR Nasal Parainfluen 3 PCR Nasal Parainfluen 4 PCR Nasal RSV (PCR) Nasal B.pertussis DNA PCR Nasal C.pneumoniae (PCR) Clarisa Human Metapneumo PCR Nasal M.pneumoniae (PCR) Nasal SARS-CoV-2 (PCR) 07/19/22 09:10 WBC RBC Hgb Hct MCV MCH MCHC RDW Plt Count MPV Neut # (Auto) Lymph # (Auto) Gaston # (Auto) Eos # (Auto) Baso # (Auto) Absolute Nucleated RBC Nucleated RBC % Sodium Potassium Chloride Carbon Dioxide Anion Gap BUN Creatinine Estimated GFR (MDRD) Glucose Calcium Total Bilirubin AST ALT Alkaline Phosphatase B-Natriuretic Peptide Total Protein Albumin Globulin Albumin/Globulin Ratio Lipase Nasal Adenovirus (PCR) NOT DETECTED Nasal B. parapertussis DNA (PCR) NOT DETECTED Nasal Coronavir 229E PCR NOT DETECTED Nasal Coronavir HKU1 PCR NOT DETECTED Nasal Coronavir NL63 PCR NOT DETECTED Nasal Coronavir OC43 PCR NOT DETECTED Nasal Enterovir/Rhinovir PCR NOT DETECTED Nasal Influenza B PCR NOT DETECTED Nasal Influenza A PCR NOT DETECTED Nasal Parainfluen 1 PCR NOT DETECTED Nasal Parainfluen 2 PCR NOT DETECTED Nasal Parainfluen 3 PCR NOT DETECTED Nasal Parainfluen 4 PCR NOT DETECTED Nasal RSV (PCR) NOT DETECTED Nasal B.pertussis DNA PCR NOT DETECTED Nasal C.pneumoniae (PCR) NOT DETECTED Clarisa Human Metapneumo PCR DETECTED A Nasal M.pneumoniae (PCR) NOT DETECTED Nasal SARS-CoV-2 (PCR) NOT DETECTED - Rads (name of study) Chest x-ray Radiology: Final report received, See rad report (Diffusely increased pulmonary markings and cardiomegaly, suggestive of pulmonary edema) PD Medical Decision Making - ED course Complexity details: reviewed results, re-evaluated patient, considered differential, d/w patient ED course: The patient was treated with IV Decadron 20 mg and both DuoNeb and albuterol nebulizer treatments. X-ray showed pulmonary edema so the patient was given 60 mg of Lasix IV. She did have good urine output after this with 800 cc of output at the time of this dictation. She stated that she did not feel much better though was found to be sleeping comfortably after receiving a small dose of Ativan. The patient was requiring more than her baseline oxygen of 2 to 3 L, as even on this, she was found to be in the upper 80s saturation mccloud on arrival. The patient was placed on 4 L of oxygen per nasal cannula which kept her sats around 93 to 94%. The patient was observed for several hours in the emergency department, but continued to have labored respirations, wheezing, and rales despite her good response to Lasix. On reevaluation, she still reported feeling very short of breath and when her oxygen was turned down to her normal levels, her oxygen saturation dropped down to around 90%. Given this in conjunction with the patient's continued sense of difficulty breathing and her continued labored respirations, I felt she should be admitted to the hospital. I spoke with Dr. Dockery, who did agree to admit the patient to her service. R espiratory therapy is not available at this time to help with the patient's respiratory care, as we have not had a respiratory therapist in house all day. She will be continued on 4 L of oxygen per nasal cannula and we will continue to give her nebulizer treatments in the emergency department while here. Departure - Departure Disposition: [facility] DC/Xfer Clinical Impression: COPD exacerbation Acute exacerbation of CHF (congestive heart failure) Qualifiers: Heart failure type: unspecified Qualified Code(s): I50.9 - Heart failure, unspecified Condition: Serious
[2022-07-19] MEDS ORDERED: NITROGLYCERIN SL 0.4 MG TABLET SL PRN (16:35)
[2022-07-19] MEDS ORDERED: CYCLOBENZAPRINE 10 MG TABLET PO PRN (16:35)
[2022-07-19] MEDS ORDERED: MONTELUKAST 10 MG TABLET PO PRN (16:35)
[2022-07-19] MEDS ORDERED: CETIRIZINE 10 MG TABLET PO PRN (16:35)
[2022-07-19] MEDS: SODIUM CHLORIDE FLUSH 0.9% 10 ML SYRINGE IVP SCH ×2 (17:33→21:03)
[2022-07-19] MEDS: INSULIN LISPRO 300 UNIT/3 ML PEN SUBQ SCH ×2 (18:31→20:59)
--- NOTE | 2022-07-19 20:01 | HISTORY & PHYSICAL EXAMINATION ---
Chief Complaint - Chief Complaint Chief Complaint: Short of air, hypoxia History of Present Illness - Admitted From Admitted From:: ED - History Obtained From History obtained from: ED provider - History of Present Illness HPI Comment/Other: This is a 57-year-old white female with history of obesity, diabetes on oral agents, systolic heart failure with a defibrillator and COPD. She was last admitted here about 1 year ago, Was discharged home with home oxygen to be set a t 2 L at rest and 3 L with activity and also a home nebulizer and nebulized meds were ordered. The patient presents with a complaint of 1 day of severe shortness of breath, denied any chest pain or changes in meds. Work-up in the ED included giving her Decadron 20 mg IV x1, 3 nebulizer treatments and Lasix 60 mg IV once her chest x-ray came back showing CHF. Patient had good urine output of 800 cc however was found to still have continued rales and expiratory wheezes. Her O2 sat on room air was 87%. She told the ED provider that her oxygen now is "to be used as needed". She was put on supplemental oxygen with improvement, saturations are 92 to 96%. EKG was done that shows her chronic left bundle branch block. A troponin was done that was normal at 16. The ED provider and I discussed her case. The patient will be admitted for COPD exacerbation and CHF exacerbation. History - Past Medical History Cardiovascular: reports: Congestive heart failure, Hypertension, High cholesterol, Coronary artery disease, [place], Atrial fibrillation, Murmur, Arrhythmia Respiratory: reports: Asthma, COPD, Emphysema, Pneumonia, Shortness of breath, Other Neuro: reports: Headaches, Tremors Endocrine/Autoimmune: reports: None GI: reports: GERD GLASS SETTER: reports: Ectopic , Other : reports: None, Frequency HEENT: reports: Chronic vision loss, Chronic sinusitis, Chronic hearing loss Psych: reports: Depression, Anxiety, Claustrophobia Musculoskeletal: reports: Osteoarthritis, Fatigue, Chronic back pain Derm: reports: None MRSA Hx?: No - Past Surgical History General: reports: Cholecystectomy, EGD Ortho: reports: Knee replacement /GLASS SETTER: reports: Hysterectomy, LEEP (Cervical surgery) Cardiovascular: reports: Cardiac catheterization HEENT: reports: Rhinoplasty - Family & Social History Family History: Mother: Alive and Well, Alzheimer's Disease, Hyperlipidemia, Hypertension, Father: , Cancer, Other family: CVA/TIA, Diabetes, Type 1, [place] Family History Comment/Other: To her knowledge, her father from an unknown cancer. She denies a family history of heart disease or diabetes but review of prior records reveal that both her parents had coronary artery disease and diabetes. Living Situation: With family Social History Notes: She lives with her grand-daughter's boyfriend who she is trying to evict. 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 She reports that she quit smoking about a year ago. She started at the age of 7 and smoked up to 1.5 packs a day. She reported she had alcoholism but she quit alcohol use. - Substance History Use: Uses substance without health or social issues: NONE - POLST Patient has POLST: No POLST Status: Full Code Meds/Allgy - Home Medications Home Medications: Ambulatory Orders Medication Instructions Recorded Confirmed Furosemide 40 mg PO BIDDIURETIC 09/07/20 07/19/22 Apixaban [Eliquis] 5 mg PO BID 10/24/20 07/19/22 Albuterol Sulfate [Proair Hfa 2 puffs INH Q4H PRN #1 inh 10/29/20 07/19/22 Inhaler] Amiodarone [Pacerone] 100 mg PO DAILY 02/04/21 07/19/22 Nitroglycerin [Nitrostat] 0.4 mg PO Q5MIN PRN 03/16/21 07/19/22 EPINEPHrine [Epinephrine] 0.3 mg IM PRN PRN 12/11/21 07/19/22 Glipizide [Glipizide ER] 5 mg PO DAILY 12/11/21 07/20/22 Spironolactone [Aldactone] 25 mg PO DAILY 12/11/21 07/19/22 Cetirizine [ZyrTEC] 10 mg PO DAILY PRN 02/08/22 07/19/22 Fluticasone [Flonase] 2 sprays CLARISA DAILY 02/08/22 07/19/22 Montelukast [Singulair] 10 mg PO QPM PRN 02/08/22 07/19/22 Albuterol 2.5 mg INH RTQ4H PRN #30 ea 02/19/22 07/19/22 Budesonide [Pulmicort] 0.5 mg INH BID #60 ea 02/19/22 07/19/22 Metoprolol Succinate [Toprol Xl] 25 mg PO BID #30 tab 02/19/22 07/19/22 Multivitamin [Theragran] 1 tab PO DAILYWM tab 02/19/22 07/19/22 guaiFENesin [Mucinex] 600 mg PO BID PRN #10 tab 02/19/22 07/19/22 Loperamide HCl [Imodium A-D] 2 mg PO Q6H PRN #12 tablet 07/13/22 07/19/22 Promethazine [Phenergan] 25 mg PO Q6H PRN #15 tab 07/13/22 07/19/22 Ascorbic Acid [Vitamin C] 1,000 mg PO DAILY 07/20/22 07/20/22 Calcium Carbonate/Vitamin D3 1 each PO DAILY 07/20/22 07/20/22 [Calcium 600-Vit D3 800 Tablet] lisinopriL [Zestril] 5 mg PO DAILY 07/20/22 07/20/22 predniSONE [Deltasone] 20 mg PO BID 07/20/22 07/20/22 - Allergies Allergies/Adverse Reactions: Allergies Allergy/AdvReac Type Severity Reaction Status Date / Time codeine [Codeine] Allergy Severe Swelling/Hi Verified 07/19/22 08:47 ves erythromycin base Allergy Severe Anaphylaxis Verified 07/19/22 08:47 [Erythromycin Base] gabapentin Allergy Severe Anaphylaxis Verified 07/19/22 08:47 Latex, Natural Rubber Allergy Severe Blisters Verified 07/19/22 08:47 pamabrom [From Midol] Allergy Severe Respiratory Verified 07/19/22 08:47 pyrilamine maleate * Allergy Severe Respiratory Verified 07/19/22 08:47 [From Midol] shellfish derived Allergy Severe Anaphylaxis Verified 07/19/22 08:47 venom-honey bee Allergy Severe Anaphylaxis Verified 07/19/22 08:47 [bee venom (honey bee)] chlorhexidine Allergy Intermediate Rash Verified 07/19/22 08:47 morphine Allergy Respiratory Verified 07/19/22 08:47 ondansetron Allergy Respiratory Verified 07/19/22 08:47 piperacillin [From Zosyn] AdvReac Rash Verified 07/19/22 08:47 tazobactam [From Zosyn] AdvReac Rash Verified 07/19/22 08:47 Review of Systems - Constitutional Constitutional: reports: Fatigue - Ears, Nose & Throat Ears, Nose & Throat: reports: Hoarseness - Respiratory Respiratory: reports: Cough, Sputum production, SOB at rest, SOB with exertion - Musculoskeletal Musculoskeletal: reports: Back pain - All Other Systems All Other Systems: reports: Reviewed and negative Exam - Vital Signs Reviewed Vital Signs: Yes Vital Signs: Vital Signs x48h Temp Pulse Pulse Resp BP BP Pulse Ox 07/19/22 17:08 36.8 C 80 17 119/64 90 L 07/19/22 17:07 07/19/22 16:10 07/19/22 16:00 37 C 84 42 H 117/53 L 94 07/19/22 15:36 75 29 H 138/50 H 90 L 07/19/22 14:00 80 26 H 123/66 92 07/19/22 13:00 83 32 H 108/74 91 L 07/19/22 12:30 81 32 H 104/53 L 91 L O2 Flow Rate 07/19/22 17:08 6 07/19/22 17:07 6 07/19/22 16:10 3 07/19/22 16:00 3 07/19/22 15:36 4 07/19/22 14:00 4 07/19/22 13:00 4 07/19/22 12:30 4 - Physical Exam General Appearance: positive: Lethargic, Other (Cushingoid appearing (BMI 43)) Eyes Bilateral: positive: Normal inspection ENT: positive: Dry mucous membranes, Other (Edentulous) Neck: positive: Nml inspection Respiratory: positive: Wheezes, Rales, Rhonchi, Other (Wearing O2 via N. Sleep) Cardiovascular: positive: Other (Distant heart sounds, not audible over her respiratory wheezes and rhonchi) Abdomen: positive: Non-tender, Other (Obese with pannus) Skin: positive: Warm, Dry Extremities: positive: Non-tender, No pedal edema Neurologic/Psychiatric: positive: Oriented x3, Motor nml Conclusion/Plan - Problem List (1) Acute respiratory failure with hypoxia Conclusion/Plan: This is likely from CHF exacerbation and COPD exacerbation Plan: Continue with supplemental O2. Treat the underlying cause is She will again need an oximetry walk test on the day of discharge to determine what her suppl O2 needs will be at [facility] (2) Acute on chronic systolic heart failure Conclusion/Plan: Etiology does not appear to be from stopping meds although she does not provide me any details of her recent history whatsoever. She has had a troponin that was normal x1. Plan: Cycle troponins to assure not rising, and no acute MN Place on telemetry watching for arrhythmias Treat with IV twice daily Lasix Follow I's and O's and daily weight We will order a total fluid restriction of 2000 cc a day Continue with her other cardiac medications (3) COPD exacerbation Conclusion/Plan: One year ago when admityted here, the etiology was an RSV infection. Cause for the current wheezing and COPD exacerbation is not clear. She does not give any details of her recent history Plan: We will order IV steroids We will order DuoNebs scheduled and as needed We will continue her other COPD meds such as montelukast and Mucinex Give supplemental O2, goal saturation of oxygen is over 88% inb a COPDer (4) Diabetes mellitus type 2 in obese Conclusion/Plan: Plan: We will order a diabetic diet, hypoglycemia protocol, fingerstick checks, sliding scale insulin coverage Check A1c with a.m. labs - Lab Results Fish Bones: 07/21/22 06:37 07/21/22 06:37 - Diagnostic Imaging Results Diagnostic Imaging Results: positive: Final report reviewed - Other Other Results/Comments: Attestation: The patient is expected to be discharged or transferred to another facility within 96 hours: Yes.
[2022-07-19] MEDS: methylPREDNISolone SUCCINATE 40 MG/ML VIAL IVP SCH (20:58)
[2022-07-19] MEDS: BUDESONIDE 0.5 MG/2 ML NEB INH SCH (21:08)
[2022-07-19] MEDS: IPRATROPIUM/ALBUTEROL 3 ML NEB INH SCH (21:08)
[2022-07-19] MEDS: APIXABAN 5 MG TABLET PO SCH (21:29)
[2022-07-19] MEDS: METOPROLOL SUCCINATE 50 MG TABLET PO SCH (22:23)
[2022-07-20] MEDS ORDERED: LORazepam 2 MG/ML VIAL IVP SCH (01:38)
[2022-07-20 01:52] LABS: CALCIUM 9.1 mg/dL (8.5-10.3); CREATININE 1.2 mg/dL (0.4-1.0); MAGNESIUM 2.4 mg/dL (1.7-2.8); POTASSIUM 4.5 mmol/L (3.5-5.0)
[2022-07-20] MEDS: IPRATROPIUM/ALBUTEROL 3 ML NEB INH PRN (02:01)
[2022-07-20 05:33] LABS: BASOPHILS % (AUTO) 0.1 %; HCT - HEMATOCRIT 43.3 % (37.0-47.0); HGB - HEMOGLOBIN 13.7 g/dL (12.0-16.0); LYMPHOCYTES % (AUTO) 9.6 %; MEAN CORPUSCULAR HEMOGLOBIN 31.2 pg (27.0-31.0); MEAN CORPUSCULAR HGB CONC 31.6 g/dL (32.0-36.0); MEAN CORPUSCULAR VOLUME 98.6 fL (81.0-99.0); MEAN PLATELET VOLUME 9.7 fL (7.9-10.8); MONOCYTES % (AUTO) 4.3 %; PLT - PLATELET COUNT 221 10^3/uL (130-450); RED BLOOD COUNT 4.39 10^6/uL (4.20-5.40); RED CELL DISTRIBUTION WIDTH 13.2 % (12.0-15.0); WHITE BLOOD COUNT 7.6 x10^3/uL (4.8-10.8)
[2022-07-20 05:49] LABS: CALCIUM 8.9 mg/dL (8.5-10.3); MAGNESIUM 2.3 mg/dL (1.7-2.8); POTASSIUM 4.3 mmol/L (3.5-5.0)
[2022-07-20 05:53] LABS: ABNORMAL LYMPHS % (MANUAL) 2 %; BAND NEUTROPHILS % (MANUAL) 2 %; DIFFERENTIAL COMMENT MANUAL DIFFERENTIAL; LYMPHOCYTES # (MANUAL) 0.7 10^3/uL (1.5-3.5); LYMPHOCYTES % (MANUAL) 7 %; MONOCYTES # (MANUAL) 0.1 10^3/uL (0.0-1.0); NEUTROPHILS # (MANUAL) 6.8 10^3/uL (1.5-6.6); PLATELET ESTIMATE, MANUAL NORMAL (130-450,000) (NORMAL); PLATELET MORPHOLOGY NORMAL APPEARANCE (NORMAL); RBC MORPHOLOGY (MULTIPLE) NORMAL APPEARANCE (NORMAL); WBC MORPHOLOGY (MULTIPLE) NORMAL APPEARANCE (NORMAL)
[2022-07-20] MEDS: methylPREDNISolone SUCCINATE 40 MG/ML VIAL IVP SCH ×3 (06:23→22:01)
[2022-07-20] MEDS: FUROSEMIDE 20 MG/2 ML VIAL IVP SCH ×2 (06:23→14:59)
[2022-07-20] MEDS: ACETAMINOPHEN 325 MG TABLET PO PRN ×3 (06:31→21:08)
[2022-07-20] MEDS: BUDESONIDE 0.5 MG/2 ML NEB INH SCH ×2 (07:20→21:20)
[2022-07-20] MEDS: IPRATROPIUM/ALBUTEROL 3 ML NEB INH SCH ×4 (07:20→21:20)
[2022-07-20] MEDS ORDERED: INSULIN LISPRO 300 UNIT/3 ML PEN SUBQ SCH (08:00)
[2022-07-20] MEDS: MULTIVITAMIN TABLET PO SCH ×2 (08:19→10:45)
[2022-07-20] MEDS ORDERED: ENOXAPARIN 40 MG/0.4 ML SYRINGE SUBQ SCH (09:00)
[2022-07-20] MEDS: AMIODARONE 200 MG TABLET PO SCH (10:43)
[2022-07-20] MEDS: METOPROLOL SUCCINATE 50 MG TABLET PO SCH ×2 (10:44→20:59)
[2022-07-20] MEDS: APIXABAN 5 MG TABLET PO SCH ×2 (10:44→20:59)
[2022-07-20] MEDS: LOSARTAN 50 MG TABLET PO SCH (10:45)
[2022-07-20] MEDS: SPIRONOLACTONE 25 MG TABLET PO SCH (10:45)
[2022-07-20] MEDS: FLUTICASONE NASAL SPRAY NAS SCH (10:45)
[2022-07-20] MEDS: SODIUM CHLORIDE FLUSH 0.9% 10 ML SYRINGE IVP SCH ×2 (10:46→17:11)
[2022-07-20 11:22] LABS: ESTIMATED AVERAGE GLUCOSE 189 mg/dL (70-100); HEMOGLOBIN A1c% 8.2 % (4.27-6.07)
--- NOTE | 2022-07-20 11:45 | PHARMACY PROGRESS NOTE ---
- Best Possible Medication History Admit Date and Time: 07/19/22 1858 Processed by: Pharmacy Medication History completed: Yes Patient Interview: Completed Secondary Source(s): Insurance records (PT states she was never allergic to Morphine until last admission when she had SOB with Morphine. Dr. Turner was in the room at that time and told her to list morphine as an allergy. ) As the person ultimately responsible for medication therapy, providers are able to order a medication from an existing home medication list in [facility] via the "Reconcile Routine" prior to Confirmation of that medication by logistics support. Such practice is discouraged except when the physician, in their clinical judgment, deems that a medical need exists for a medication without regard to previous use.
[2022-07-20] MEDS: INSULIN LISPRO 300 UNIT/3 ML PEN SUBQ SCH ×3 (11:55→20:58)
[2022-07-20] MEDS: guaiFENesin 600 MG TABLET PO PRN ×2 (12:42→21:08)
[2022-07-20] MEDS: NYSTATIN POWDER 15 GM TOP SCH ×2 (14:56→21:00)
[2022-07-20] MEDS: PROMETHAZINE 25 MG TABLET PO PRN (17:19)
--- NOTE | 2022-07-20 19:25 | PROVIDER PROGRESS NOTE ---
Assessment/Plan - Problem List (1) Acute respiratory failure with hypoxia Assessment/Plan: This is likely from CHF exacerbation and COPD exacerbation Plan: Continue with supplemental O2. Treat the underlying cause is She will again need an oximetry walk test on the day of discharge to determine what her suppl O2 needs will be at [facility] (2) Acute bronchitis due to human metapneumovirus Assessment/Plan: She tested positive for this by PCR method from her nasal swab. COVID is negative. RSV is negative. This is likely the cause of the COPD exacerbation Plan: Respiratory and droplet isolation has been ordered. There is no specific antiviral for this infection (3) COPD exacerbation Conclusion/Plan: One year ago when admitted here, the etiology was an RSV infection. Cause for the current wheezing and COPD exacerbation is the (above) virus. Plan: Cont IV steroids, Solumedrol 80 TID, given signif wheezing still heard Cont DuoNebs scheduled and as needed We will continue her other COPD meds such as montelukast and Mucinex Cont supplemental O2, goal saturation of oxygen is over 88% in a COPDer (4) Acute on chronic systolic heart failure Conclusion/Plan: Etiology does not appear to be from stopping meds. Her troponins ruled her out for OR as cause of CHF. Plan: Cont on telemetry watching for arrhythmias Cont IV twice daily Lasix Follow I's and O's and daily weight Cont total fluid restriction of 2000 cc a day Continue with her other cardiac medications (5) Diabetes mellitus type 2 in obese Conclusion/Plan: Labs were reviewed. Glu elevated while on steroids, as expected. Plan: Cont diabetic diet, hypoglycemia protocol, fingerstick checks, sliding scale insulin coverage Awaiting A1c results - Current Meds Current Meds: Current Medications Generic Name Dose Route Start Last Admin Trade Name Freq PRN Reason Stop Dose Admin Acetaminophen 650 mg 07/19/22 16:32 07/20/22 10:45 Acetaminophen 325 Mg Tablet PO 650 mg Q4HR PRN Administration Pain 1 to 4, or Fever Albuterol/Ipratropium 3 ml 07/19/22 16:39 07/20/22 02:01 Ipratropium/Albuterol 3 Ml Neb INH 3 ml Q4HR PRN Administration Wheezing Albuterol/Ipratropium 3 ml 07/19/22 19:00 07/20/22 16:23 Ipratropium/Albuterol 3 Ml Neb INH 3 ml RTQID ROMAN Administration Amiodarone HCl 100 mg 07/20/22 09:00 07/20/22 10:43 Amiodarone 200 Mg Tablet PO 100 mg DAILY ROMAN Administration Apixaban 5 mg 07/19/22 21:00 07/20/22 10:44 Apixaban 5 Mg Tablet PO 5 mg BID ROMAN Administration Budesonide 0.5 mg 07/19/22 21:00 07/20/22 07:20 Budesonide 0.5 Mg/2 Ml Neb INH 0.5 mg BID ROMAN Administration Fluticasone Propionate 2 sprays 07/20/22 09:00 07/20/22 10:45 Fluticasone Nasal [place] CLARISA 1 spray DAILY ROMAN Administration Furosemide 20 mg 07/20/22 06:00 07/20/22 14:59 Furosemide 20 Mg/2 Ml Vial IVP 20 mg BIDDIURETIC ROMAN Administration Guaifenesin 600 mg 07/19/22 16:35 07/20/22 12:42 Guaifenesin 600 Mg Tablet PO 600 mg BID PRN Administration NEEDED PER PROVIDER ORDERS Insulin Human Lispro 2 - 10 unit 07/20/22 12:00 07/20/22 17:11 Insulin Lispro 300 Unit/3 Ml Pen SUBQ 4 unit 0800,1200,1700,2100 ROMAN Administration Protocol Lorazepam 1 mg 07/20/22 01:38 07/20/22 02:25 Lorazepam 2 Mg/Ml Vial IVP 07/21/22 01:37 1 mg ONCE ROMAN Administration Losartan Potassium 25 mg 07/20/22 09:00 07/20/22 10:45 Losartan 50 Mg Tablet PO 25 mg DAILY ROMAN Administration Methylprednisolone 80 mg 07/19/22 21:00 07/20/22 14:56 Methylprednisolone Succinate 40 Mg/Ml Vial IVP 80 mg TID ROMAN Administration Metoprolol Succinate 25 mg 07/19/22 21:00 07/20/22 10:44 Metoprolol Succinate 50 Mg Tablet PO 25 mg BID ROMAN Administration Multivitamins 1 tab 07/20/22 08:00 07/20/22 10:45 Multivitamin Tablet PO 1 tab DAILYWM ROMAN Administration Nystatin 1 applic 07/20/22 11:00 07/20/22 14:56 Nystatin Powder 15 Gm TOP 1 applic BID ROMAN Administration Promethazine HCl 25 mg 07/20/22 15:33 07/20/22 17:19 Promethazine 25 Mg Tablet PO 25 mg Q6H PRN Administration Dyspnea Sodium Chloride 10 ml 07/19/22 17:00 07/20/22 17:11 Sodium Chloride Flush 0.9% 10 Ml Syringe IVP 10 ml 0100,0900,1700 ROMAN Administration Spironolactone 25 mg 07/20/22 09:00 07/20/22 10:45 Spironolactone 25 Mg Tablet PO 25 mg DAILY ROMAN Administration - Lab Result Fish Bone Diagrams: 07/20/22 05:25 07/20/22 05:25 - Additional Planning My Orders: My Active Orders 07/19/22 19:00 Ipratropium/Albuterol [Duoneb] 3 ml INH RTQID 07/19/22 21:00 Apixaban [Eliquis] 5 mg PO BID Budesonide [Pulmicort] 0.5 mg INH BID Metoprolol Succinate [Toprol Xl] 25 mg PO BID methylPREDNISolone SUCCINATE [SOLU-Medrol (40MG VIAL)] 80 mg IVP TID 07/19/22 21:11 Nebulizer [Nebulizer/MDI Tx.] [RC] QID 07/20/22 06:00 FUROSEMIDE INJ 20mg VIAL [LASIX INJ 20mg VIAL] 20 mg IVP BIDDIURETIC 07/20/22 08:00 Multivitamin [Theragran] 1 tab PO DAILYWM 07/20/22 09:00 Amiodarone [Pacerone] 100 mg PO DAILY Fluticasone [Flonase] 2 sprays CLARISA DAILY Losartan [Cozaar] 25 mg PO DAILY Spironolactone [Aldactone] 25 mg PO DAILY 07/20/22 11:00 Nystatin [Nystop] 1 applic TOP BID 07/20/22 12:00 Insulin Lispro [Humalog Kwikpen U-100] 2 - 10 unit SUBQ 0800,1200,1700,2100 07/20/22 15:33 Promethazine [Phenergan] 25 mg PO Q6H PRN 07/20/22 15:34 LORazepam INJ [Ativan Inj (Vial)] 1 mg IVP Q6H PRN 07/21/22 05:00 BMP - BASIC METABOLIC PANEL [CHEM] DAILYLAB CBC - COMP BLD CT W/AUTO DIFF [HEME] DAILYLAB MAGNESIUM [CHEM] DAILYLAB 07/21/22 08:00 glipiZIDE ER [Glucotrol Xl] 5 mg PO DAILYWM 07/21/22 09:00 Calcium Carb (Oyster Shell) [[place]-500] 500 mg PO DAILY Cholecalciferol [Vitamin D3] 800 unit PO DAILY 07/22/22 05:00 BMP - BASIC METABOLIC PANEL [CHEM] DAILYLAB CBC - COMP BLD CT W/AUTO DIFF [HEME] DAILYLAB MAGNESIUM [CHEM] DAILYLAB 07/23/22 05:00 BMP - BASIC METABOLIC PANEL [CHEM] DAILYLAB CBC - COMP BLD CT W/AUTO DIFF [HEME] DAILYLAB MAGNESIUM [CHEM] DAILYLAB 07/24/22 05:00 BMP - BASIC METABOLIC PANEL [CHEM] DAILYLAB CBC - COMP BLD CT W/AUTO DIFF [HEME] DAILYLAB Subjective - Subjective Patient Reports: Cough, Chest Pain Nursing Reports: Other (Nurse reports that when she observes her, she appears comfortable but as soon as the nurse walked into her room the patient gets tearful, dramatic, respiratory rate goes up.) Objective Vital Signs: Vital Signs - 24 hr 07/19/22 07/19/22 07/19/22 21:10 21:12 23:38 Temperature 37.0 C 36.4 C L Heart Rate 65 Heart Rate [ Brachial] Heart Rate [ Monitoring electrodes] Heart Rate [ 71 68 Radial] Respiratory 20 24 20 Rate Blood Pressure 112/61 117/43 L [Left Brachial artery] O2 Saturation 90 L 93 If not protocol 6 6 6 : Oxygen Flow, liters/minute 07/20/22 07/20/22 07/20/22 01:45 05:23 07:25 Temperature 36.4 C L Heart Rate 55 L 58 L Heart Rate [ Brachial] Heart Rate [ Monitoring electrodes] Heart Rate [ 56 L Radial] Respiratory 24 20 17 Rate Blood Pressure 120/55 L [Left Brachial artery] O2 Saturation 94 If not protocol 6 6 6 : Oxygen Flow, liters/minute 07/20/22 07/20/22 07/20/22 07:33 10:37 10:43 Temperature 36.3 C L Heart Rate Heart Rate [ Brachial] Heart Rate [ Monitoring electrodes] Heart Rate [ 73 Radial] Respiratory 22 26 H 25 H Rate Blood Pressure 109/85 H 132/50 H [Left Brachial artery] O2 Saturation 92 93 91 L If not protocol 6 6 5 : Oxygen Flow, liters/minute 07/20/22 07/20/22 07/20/22 11:13 11:23 11:30 Temperature 36.4 C L Heart Rate 89 Heart Rate [ 62 Brachial] Heart Rate [ Monitoring electrodes] Heart Rate [ Radial] Respiratory 18 28 H Rate Blood Pressure 120/58 L 129/65 [Left Brachial artery] O2 Saturation 93 If not protocol 6 5 : Oxygen Flow, liters/minute 07/20/22 07/20/22 07/20/22 12:06 12:38 12:49 Temperature Heart Rate Heart Rate [ Brachial] Heart Rate [ 59 L 81 Monitoring electrodes] Heart Rate [ Radial] Respiratory 26 H Rate Blood Pressure 99/68 72/50 L 96/71 [Left Brachial artery] O2 Saturation 90 L If not protocol 6 6 : Oxygen Flow, liters/minute 07/20/22 07/20/22 07/20/22 13:02 13:14 14:54 Temperature 36.5 C Heart Rate Heart Rate [ Brachial] Heart Rate [ 88 Monitoring electrodes] Heart Rate [ Radial] Respiratory 25 H Rate Blood Pressure 114/44 L 99/72 104/49 L [Left Brachial artery] O2 Saturation 92 92 If not protocol 6 6 : Oxygen Flow, liters/minute 07/20/22 16:23 Temperature Heart Rate 66 Heart Rate [ Brachial] Heart Rate [ Monitoring electrodes] Heart Rate [ Radial] Respiratory 19 Rate Blood Pressure [Left Brachial artery] O2 Saturation If not protocol 6 : Oxygen Flow, liters/minute Oxygen O2 Source [With Activity] Room air O2 Source Nasal cannula Oxygen Flow Rate 4 I&O (Last 24 Hrs): Intake and Output Totals x24h 07/18/22 07/19/22 07/20/22 23:59 23:59 23:59 Intake Total 240 590 Output Total 0 1700 Balance 240 -1110 General: Alert, Oriented x3, Other (Cushingoid appearing) HEENT: Mucous membr. moist/pink Neck: Supple Neuro: Alert, Non Focal Cardiovascular: Regular rate Respiratory: Wheezes, Rales Abdomen: Soft, Other (Obese) Extremities: No clubbing, No edema, No tenderness/swelling - Results Results: Laboratory Results WBC 7.6 x10^3/uL (4.8-10.8) 07/20/22 05:25 RBC 4.39 10^6/uL (4.20-5.40) 07/20/22 05:25 Hgb 13.7 g/dL (12.0-16.0) 07/20/22 05:25 Hct 43.3 % (37.0-47.0) 07/20/22 05:25 MCV 98.6 fL (81.0-99.0) 07/20/22 05:25 MCH 31.2 pg (27.0-31.0) H 07/20/22 05:25 MCHC 31.6 g/dL (32.0-36.0) L 07/20/22 05:25 RDW 13.2 % (12.0-15.0) 07/20/22 05:25 Plt Count 221 10^3/uL (130-450) 07/20/22 05:25 MPV 9.7 fL (7.9-10.8) 07/20/22 05:25 Neut # (Auto) Not Reportable 07/20/22 05:25 Lymph # (Auto) Not Reportable 07/20/22 05:25 [place] # (Auto) Not Reportable 07/20/22 05:25 Eos # (Auto) Not Reportable 07/20/22 05:25 Baso # (Auto) Not Reportable 07/20/22 05:25 Absolute Nucleated RBC Not Reportable 07/20/22 05:25 Total Counted 100 07/20/22 05:25 Band Neuts % (Manual) 2 % (0-10) 07/20/22 05:25 Abnorm Lymph % (Manual) 2 % 07/20/22 05:25 Nucleated RBC % Not Reportable 07/20/22 05:25 Neutrophils # (Manual) 6.8 10^3/uL (1.5-6.6) H 07/20/22 05:25 Lymphocytes # (Manual) 0.7 10^3/uL (1.5-3.5) L 07/20/22 05:25 Monocytes # (Manual) 0.1 10^3/uL (0.0-1.0) 07/20/22 05:25 Eosinophils # (Manual) 0.0 10^3/uL (0-0.7) 07/20/22 05:25 Basophils # (Manual) 0.0 10^3/uL (0-0.1) 07/20/22 05:25 Differential Comment MANUAL DIFFERENTIAL 07/20/22 05:25 WBC Morphology NORMAL APPEARANCE (NORMAL) 07/20/22 05:25 Platelet Estimate NORMAL (130-450,000) (NORMAL) 07/20/22 05:25 Platelet Morphology NORMAL APPEARANCE (NORMAL) 07/20/22 05:25 RBC Morph Micro Appear NORMAL APPEARANCE (NORMAL) 07/20/22 05:25 D-Dimer 215.8 ng/mL (200.0-255.0) 07/20/22 01:28 Sodium 139 mmol/L (135-145) 07/20/22 05:25 Potassium 4.3 mmol/L (3.5-5.0) 07/20/22 05:25 Chloride 100 mmol/L (101-111) L 07/20/22 05:25 Carbon Dioxide 30 mmol/L (21-32) 07/20/22 05:25 Anion Gap 9.0 (6-13) 07/20/22 05:25 BUN 19 mg/dL (6-20) 07/20/22 05:25 Creatinine 1.0 mg/dL (0.4-1.0) 07/20/22 05:25 Estimated GFR (MDRD) 57 (>89) L 07/20/22 05:25 Glucose 273 mg/dL (70-100) H 07/20/22 05:25 POC Whole Bld Glucose 192 mg/dL (70 - 100) H 07/20/22 16:28 Estimat Average Glucose 189 mg/dL (70-100) H 07/20/22 05:25 Hemoglobin A1c % 8.2 % (4.27-6.07) H 07/20/22 05:25 Calcium 8.9 mg/dL (8.5-10.3) 07/20/22 05:25 Magnesium 2.3 mg/dL (1.7-2.8) 07/20/22 05:25 Total Bilirubin 0.5 mg/dL (0.2-1.0) 07/19/22 08:56 AST 17 IU/L (10-42) 07/19/22 08:56 ALT 23 IU/L (10-60) 07/19/22 08:56 Alkaline Phosphatase 66 IU/L (42-121) 07/19/22 08:56 Troponin I High Sens 13.5 ng/L (2.3-14.8) 07/20/22 01:28 B-Natriuretic Peptide 162 pg/mL (5-100) H 07/19/22 08:56 Total Protein 6.7 g/dL (6.7-8.2) 07/19/22 08:56 Albumin 3.3 g/dL (3.2-5.5) 07/19/22 08:56 Globulin 3.4 g/dL (2.1-4.2) 07/19/22 08:56 Albumin/Globulin Ratio 1.0 (1.0-2.2) 07/19/22 08:56 Lipase 32 U/L (22-51) 07/19/22 08:56 TSH 0.41 uIU/mL (0.34-5.60) 07/20/22 01:28 Nasal Adenovirus (PCR) NOT DETECTED 07/19/22 09:10 Nasal B. parapertussis DNA (PCR) NOT DETECTED 07/19/22 09:10 Nasal Coronavir 229E PCR NOT DETECTED 07/19/22 09:10 Nasal Coronavir HKU1 PCR NOT DETECTED 07/19/22 09:10 Nasal Coronavir NL63 PCR NOT DETECTED 07/19/22 09:10 Nasal Coronavir OC43 PCR NOT DETECTED 07/19/22 09:10 Nasal Enterovir/Rhinovir PCR NOT DETECTED 07/19/22 09:10 Nasal Influenza B PCR NOT DETECTED 07/19/22 09:10 Nasal Influenza A PCR NOT DETECTED 07/19/22 09:10 Nasal Parainfluen 1 PCR NOT DETECTED 07/19/22 09:10 Nasal Parainfluen 2 PCR NOT DETECTED 07/19/22 09:10 Nasal Parainfluen 3 PCR NOT DETECTED 07/19/22 09:10 Nasal Parainfluen 4 PCR NOT DETECTED 07/19/22 09:10 Nasal RSV (PCR) NOT DETECTED 07/19/22 09:10 Nasal B.pertussis DNA PCR NOT DETECTED 07/19/22 09:10 Nasal C.pneumoniae (PCR) NOT DETECTED 07/19/22 09:10 Clarisa Human Metapneumo PCR DETECTED A 07/19/22 09:10 Nasal M.pneumoniae (PCR) NOT DETECTED 07/19/22 09:10 Nasal SARS-CoV-2 (PCR) NOT DETECTED 07/19/22 09:10 - Procedures Procedures: Procedures (02/05/21) ESOPHAGOGASTRODUODENOSCOPY [EGD] W/CLOSED BIOPSY (11/29/13) INSERTION OF INFUSION DEV INTO SUP VENA CAVA, PERC APPROACH (12/28/17) MANUAL RUPT JOINT ADHES (04/27/14) TOTAL KNEE REPLACEMENT (06/16/14)
[2022-07-20] MEDS: LORazepam 2 MG/ML VIAL IVP PRN (21:08)
[2022-07-21] MEDS: SODIUM CHLORIDE FLUSH 0.9% 10 ML SYRINGE IVP SCH ×3 (01:31→17:25)
[2022-07-21] MEDS: IPRATROPIUM/ALBUTEROL 3 ML NEB INH PRN (01:49)
[2022-07-21] MEDS: methylPREDNISolone SUCCINATE 40 MG/ML VIAL IVP SCH ×3 (06:01→21:10)
[2022-07-21] MEDS: SODIUM CHLORIDE FLUSH 0.9% 10 ML SYRINGE IVP PRN (06:01)
[2022-07-21] MEDS: PROMETHAZINE 25 MG TABLET PO PRN ×2 (06:22→13:31)
[2022-07-21 07:00] LABS: BASOPHILS % (AUTO) 0.1 %; HCT - HEMATOCRIT 46.2 % (37.0-47.0); HGB - HEMOGLOBIN 14.4 g/dL (12.0-16.0); LYMPHOCYTES % (AUTO) 8.5 %; MEAN CORPUSCULAR HGB CONC 31.2 g/dL (32.0-36.0); MEAN CORPUSCULAR VOLUME 99.6 fL (81.0-99.0); MEAN PLATELET VOLUME 10.1 fL (7.9-10.8); PLT - PLATELET COUNT 281 10^3/uL (130-450); RED BLOOD COUNT 4.64 10^6/uL (4.20-5.40); RED CELL DISTRIBUTION WIDTH 13.5 % (12.0-15.0); WHITE BLOOD COUNT 14.8 x10^3/uL (4.8-10.8)
[2022-07-21 07:04] LABS: ABNORMAL LYMPHS % (MANUAL) 0 %; BAND NEUTROPHILS % (MANUAL) 0 %
[2022-07-21 07:10] LABS: CALCIUM 9.5 mg/dL (8.5-10.3); CREATININE 0.9 mg/dL (0.4-1.0); MAGNESIUM 2.3 mg/dL (1.7-2.8); POTASSIUM 4.8 mmol/L (3.5-5.0)
[2022-07-21] MEDS: IPRATROPIUM/ALBUTEROL 3 ML NEB INH SCH ×4 (07:18→19:10)
[2022-07-21] MEDS: BUDESONIDE 0.5 MG/2 ML NEB INH SCH ×2 (07:18→19:10)
[2022-07-21 07:44] LABS: EOSINOPHILS # (MANUAL) 0.1 10^3/uL (0-0.7); LYMPHOCYTES # (MANUAL) 0.9 10^3/uL (1.5-3.5); LYMPHOCYTES % (MANUAL) 6 %; MONOCYTES # (MANUAL) 0.1 10^3/uL (0.0-1.0); NEUTROPHILS # (MANUAL) 13.5 10^3/uL (1.5-6.6)
[2022-07-21 07:45] LABS: DIFFERENTIAL COMMENT MANUAL DIFFERENTIAL; OTHER CELLS % (MANUAL) 1 %; PLATELET ESTIMATE, MANUAL NORMAL (130-450,000) (NORMAL); PLATELET MORPHOLOGY NORMAL APPEARANCE (NORMAL); RBC MORPHOLOGY (MULTIPLE) NORMAL APPEARANCE (NORMAL)
[2022-07-21] MEDS: INSULIN LISPRO 300 UNIT/3 ML PEN SUBQ SCH ×4 (08:40→21:09)
[2022-07-21] MEDS: APIXABAN 5 MG TABLET PO SCH ×2 (08:41→21:08)
[2022-07-21] MEDS: CHOLECALCIFEROL 400 UNIT TABLET PO SCH (08:41)
[2022-07-21] MEDS: FLUTICASONE NASAL SPRAY NAS SCH (08:41)
[2022-07-21] MEDS: CALCIUM CARB (OYSTER SHELL) 500 MG TABLET PO SCH (08:41)
[2022-07-21] MEDS: NYSTATIN POWDER 15 GM TOP SCH ×2 (08:42→21:09)
[2022-07-21] MEDS: LOSARTAN 50 MG TABLET PO SCH (08:49)
[2022-07-21] MEDS: METOPROLOL SUCCINATE 50 MG TABLET PO SCH ×2 (08:50→21:10)
[2022-07-21] MEDS: LORazepam 2 MG/ML VIAL IVP PRN ×2 (09:57→17:24)
[2022-07-21] MEDS: AMIODARONE 200 MG TABLET PO SCH (11:45)
[2022-07-21] MEDS: SPIRONOLACTONE 25 MG TABLET PO SCH (11:46)
[2022-07-21] MEDS: FUROSEMIDE 20 MG/2 ML VIAL IVP SCH (13:30)
[2022-07-21] MEDS: guaiFENesin 100 MG/5 ML UDC PO PRN (13:54)
--- NOTE | 2022-07-21 16:37 | PROVIDER PROGRESS NOTE ---
Assessment/Plan - Problem List (1) Acute respiratory failure with hypoxia Assessment/Plan: (1) Acute respiratory failure with hypoxia Assessment/Plan: This is likely from CHF exacerbation and COPD exacerbation Plan: Continue with supplemental O2. Treat the underlying causes She will again need an oximetry walk test on the day of discharge to determine what her suppl O2 needs will be at [facility] (2) Acute bronchitis due to human metapneumovirus Assessment/Plan: She tested positive for this by PCR method from her nasal swab. COVID is negat imani. RSV is negative. This is likely the cause of the COPD exacerbation Plan: Respiratory and droplet isolation has been ordered. There is no specific antiviral for this infection (3) COPD exacerbation Conclusion/Plan: One year ago when admitted here, the etiology was an RSV infection. Cause for the current wheezing and COPD exacerbation is the (above) virus. She has a history of extremely slow improvement when she gets a COPD exacerbation needing admission. Plan: Cont IV steroids, Solumedrol 80 TID, given signif wheezing still heard Cont DuoNebs scheduled and will increase the as needed Duonebs from q4h to q2h (advised by RT). Continue her other COPD meds such as montelukast and Mucinex, scheduled, not prn Cont supplemental O2, goal saturation of oxygen is over 88% in a COPDer (4) Acute on chronic systolic heart failure Conclusion/Plan: Etiology does not appear to be from stopping meds. Her troponins ruled her out for [facility] as cause of CHF. Plan: Cont on telemetry watching for arrhythmias Cont IV twice daily Lasix Follow I's and O's and daily weight Cont total fluid restriction of 2000 cc a day Continue with her other cardiac medications (5) Diabetes mellitus type 2 in obese Conclusion/Plan: Labs were reviewed. Glu elevated while on steroids, as expected. Plan: Cont diabetic diet, hypoglycemia protocol, fingerstick checks, sliding scale insulin coverage Awaiting A1c results (6) Chronic pain The patient is describing pain in the chest from coughing and in the upper back and neck which is her chronic pain She says that [place] balm helps this pain at home Plan: We will order adjustment of pain meds and possibly topical pain med treatment - Current Meds Current Meds: Current Medications Generic Name Dose Route Start Last Admin Trade Name Freq PRN Reason Stop Dose Admin Acetaminophen 650 mg 07/19/22 16:32 07/20/22 21:08 Acetaminophen 325 Mg Tablet PO 650 mg Q4HR PRN Administration Pain 1 to 4, or Fever Albuterol/Ipratropium 3 ml 07/19/22 16:39 07/21/22 01:49 Ipratropium/Albuterol 3 Ml Neb INH 3 ml Q4HR PRN Administration Wheezing Albuterol/Ipratropium 3 ml 07/19/22 19:00 07/21/22 15:19 Ipratropium/Albuterol 3 Ml Neb INH 3 ml RTQID ROMAN Administration Amiodarone HCl 100 mg 07/20/22 09:00 07/21/22 11:45 Amiodarone 200 Mg Tablet PO 100 mg DAILY ROMAN Administration Apixaban 5 mg 07/19/22 21:00 07/21/22 08:41 Apixaban 5 Mg Tablet PO 5 mg BID ROMAN Administration Budesonide 0.5 mg 07/19/22 21:00 07/21/22 07:18 Budesonide 0.5 Mg/2 Ml Neb INH 0.5 mg BID ROMAN Administration Calcium Carbonate/Glycine 500 mg 07/21/22 09:00 07/21/22 08:41 Calcium Carb (Oyster Shell) 500 Mg Tablet PO 500 mg DAILY ROMAN Administration Cholecalciferol 800 unit 07/21/22 09:00 07/21/22 08:41 Cholecalciferol 400 Unit Tablet PO 800 unit DAILY ROMAN Administration Fluticasone Propionate 2 sprays 07/20/22 09:00 07/21/22 08:41 Fluticasone Nasal [place] CLARISA 1 spray DAILY ROMAN Administration Furosemide 20 mg 07/20/22 06:00 07/21/22 13:30 Furosemide 20 Mg/2 Ml Vial IVP 20 mg BIDDIURETIC ROMAN Administration Glipizide 5 mg 07/21/22 08:00 07/21/22 08:40 Glipizide Er 2.5 Mg Tablet PO 5 mg DAILYWM ROMAN Administration Guaifenesin 200 mg 07/21/22 13:20 07/21/22 13:54 Guaifenesin 100 Mg/5 Ml Udc PO 200 mg Q4H PRN Administration Cough Insulin Human Lispro 3 - 11 unit 07/21/22 12:00 07/21/22 12:17 Insulin Lispro 300 Unit/3 Ml Pen SUBQ 9 unit 0800,1200,1700,2100 ROMAN Administration Protocol Lorazepam 1 mg 07/20/22 15:34 07/21/22 09:57 Lorazepam 2 Mg/Ml Vial IVP 1 mg Q6H PRN Administration Anxiety Losartan Potassium 25 mg 07/20/22 09:00 07/21/22 08:49 Losartan 50 Mg Tablet PO Not Given DAILY ROMAN Methylprednisolone 80 mg 07/19/22 21:00 07/21/22 13:31 Methylprednisolone Succinate 40 Mg/Ml Vial IVP 80 mg TID ROMAN Administration Metoprolol Succinate 25 mg 07/19/22 21:00 07/21/22 08:50 Metoprolol Succinate 50 Mg Tablet PO Not Given BID ROMAN Multivitamins 1 tab 07/20/22 08:00 07/20/22 10:45 Multivitamin Tablet PO 1 tab DAILYWM ROMAN Administration Nystatin 1 applic 07/20/22 11:00 07/21/22 08:42 Nystatin Powder 15 Gm TOP 1 applic BID ROMAN Administration Promethazine HCl 25 mg 07/20/22 15:33 07/21/22 13:31 Promethazine 25 Mg Tablet PO 25 mg Q6H PRN Administration Dyspnea Sodium Chloride 10 ml 07/19/22 16:32 07/21/22 06:01 Sodium Chloride Flush 0.9% 10 Ml Syringe IVP 10 ml PRN PRN Administration NEEDED PER PROVIDER ORDERS Sodium Chloride 10 ml 07/19/22 17:00 07/21/22 06:01 Sodium Chloride Flush 0.9% 10 Ml Syringe IVP 10 ml 0100,0900,1700 ROMAN Administration Spironolactone 25 mg 07/20/22 09:00 07/21/22 11:46 Spironolactone 25 Mg Tablet PO 25 mg DAILY ROMAN Administration - Lab Result Fish Bone Diagrams: 07/21/22 06:37 07/21/22 06:37 - Additional Planning My Orders: My Active Orders 07/21/22 08:00 glipiZIDE ER [Glucotrol Xl] 5 mg PO DAILYWM 07/21/22 09:00 Calcium Carb (Oyster Shell) [Oysco-500] 500 mg PO DAILY Cholecalciferol [Vitamin D3] 800 unit PO DAILY 07/21/22 12:00 Insulin Lispro [Humalog Kwikpen U-100] 3 - 11 unit SUBQ 0800,1200,1700,2100 07/21/22 13:20 guaiFENesin LIQUID [Robitussin Liquid] 200 mg PO Q4H PRN 07/21/22 21:00 guaiFENesin [Mucinex] 600 mg PO BID 07/22/22 05:00 BMP - BASIC METABOLIC PANEL [CHEM] DAILYLAB CBC - COMP BLD CT W/AUTO DIFF [HEME] DAILYLAB MAGNESIUM [CHEM] DAILYLAB 07/23/22 05:00 BMP - BASIC METABOLIC PANEL [CHEM] DAILYLAB CBC - COMP BLD CT W/AUTO DIFF [HEME] DAILYLAB MAGNESIUM [CHEM] DAILYLAB 07/24/22 05:00 BMP - BASIC METABOLIC PANEL [CHEM] DAILYLAB CBC - COMP BLD CT W/AUTO DIFF [HEME] DAILYLAB Subjective - Subjective Patient Reports: Pain (Cough is unchanged, shortness of breath is mildly better, mostly she complains of pain with coughing and her anterior chest and generalized upper back and neck pain which is chronic) Objective Vital Signs: Vital Signs - 24 hr 07/20/22 07/20/22 07/21/22 21:00 21:20 01:45 Temperature 36.4 C L Heart Rate 80 64 Heart Rate [ Brachial] Heart Rate [ 74 Monitoring electrodes] Respiratory 24 24 24 Rate Blood Pressure [Right Brachial artery] Blood Pressure 145/50 H [Right Radial artery] O2 Saturation 92 If not protocol 6 6 6 : Oxygen Flow, liters/minute 07/21/22 07/21/22 07/21/22 01:46 04:44 07:19 Temperature 36.5 C 36.5 C Heart Rate 74 Heart Rate [ 63 57 L Brachial] Heart Rate [ Monitoring electrodes] Respiratory 26 H 20 26 H Rate Blood Pressure 111/57 L 110/61 [Right Brachial artery] Blood Pressure [Right Radial artery] O2 Saturation 94 95 If not protocol 6 6 6 : Oxygen Flow, liters/minute 07/21/22 07/21/22 07/21/22 07:29 08:46 09:30 Temperature 36.8 C Heart Rate Heart Rate [ 58 L Brachial] Heart Rate [ 67 54 L Monitoring electrodes] Respiratory 28 H 20 28 H Rate Blood Pressure 108/54 L 105/52 L [Right Brachial artery] Blood Pressure [Right Radial artery] O2 Saturation 96 90 L 92 If not protocol 6 6 : Oxygen Flow, liters/minute 07/21/22 07/21/22 07/21/22 11:50 11:51 15:19 Temperature 36.7 C Heart Rate 80 84 Heart Rate [ 65 Brachial] Heart Rate [ Monitoring electrodes] Respiratory 26 H 26 H 26 H Rate Blood Pressure 123/55 L [Right Brachial artery] Blood Pressure [Right Radial artery] O2 Saturation 92 If not protocol 6 6 6 : Oxygen Flow, liters/minute 07/21/22 15:26 Temperature Heart Rate Heart Rate [ Brachial] Heart Rate [ Monitoring electrodes] Respiratory Rate Blood Pressure [Right Brachial artery] Blood Pressure [Right Radial artery] O2 Saturation If not protocol 6 : Oxygen Flow, liters/minute Oxygen O2 Source [With Activity] Room air O2 Source Nasal cannula Oxygen Flow Rate 4 I&O (Last 24 Hrs): Intake and Output Totals x24h 07/19/22 07/20/22 07/21/22 23:59 23:59 23:59 Intake Total 240 790 720 Output Total 0 2400 1000 Balance 240 -1610 -280 General: Alert, Oriented x3, Mild distress (From neck pain), Other (Cushingoid appearing) HEENT: Mucous membr. moist/pink, Other (Edentulous. Wearing O2 per nasal cannula) Neck: Supple Neuro: Alert, Non Focal Cardiovascular: Regular rate, Other (Heart sounds are barely audible over her wheezing and rhonchi) Abdomen: Soft, Other (Obese with pannus) Extremities: No clubbing, No edema - Results Results: Laboratory Results WBC 14.8 x10^3/uL (4.8-10.8) H 07/21/22 06:37 RBC 4.64 10^6/uL (4.20-5.40) 07/21/22 06:37 Hgb 14.4 g/dL (12.0-16.0) 07/21/22 06:37 Hct 46.2 % (37.0-47.0) 07/21/22 06:37 MCV 99.6 fL (81.0-99.0) H 07/21/22 06:37 MCH 31.0 pg (27.0-31.0) 07/21/22 06:37 MCHC 31.2 g/dL (32.0-36.0) L 07/21/22 06:37 RDW 13.5 % (12.0-15.0) 07/21/22 06:37 Plt Count 281 10^3/uL (130-450) 07/21/22 06:37 MPV 10.1 fL (7.9-10.8) 07/21/22 06:37 Neut # (Auto) Not Reportable 07/21/22 06:37 Lymph # (Auto) Not Reportable 07/21/22 06:37 [place] # (Auto) Not Reportable 07/21/22 06:37 Eos # (Auto) Not Reportable 07/21/22 06:37 Baso # (Auto) Not Reportable 07/21/22 06:37 Absolute Nucleated RBC Not Reportable 07/21/22 06:37 Total Counted 100 07/21/22 06:37 Band Neuts % (Manual) 0 % (0-10) 07/21/22 06:37 Abnorm Lymph % (Manual) 0 % 07/21/22 06:37 Other Cells % 1 % 07/21/22 06:37 Nucleated RBC % Not Reportable 07/21/22 06:37 Neutrophils # (Manual) 13.5 10^3/uL (1.5-6.6) H 07/21/22 06:37 Lymphocytes # (Manual) 0.9 10^3/uL (1.5-3.5) L 07/21/22 06:37 Monocytes # (Manual) 0.1 10^3/uL (0.0-1.0) 07/21/22 06:37 Eosinophils # (Manual) 0.1 10^3/uL (0-0.7) 07/21/22 06:37 Basophils # (Manual) 0.0 10^3/uL (0-0.1) 07/21/22 06:37 Differential Comment MANUAL DIFFERENTIAL 07/21/22 06:37 Manual Slide Review [employer]IANCE [employer] SUPERVISOR 07/21/22 06:37 WBC Morphology NORMAL APPEARANCE (NORMAL) 07/20/22 05:25 Platelet Estimate NORMAL (130-450,000) (NORMAL) 07/21/22 06:37 Platelet Morphology NORMAL APPEARANCE (NORMAL) 07/21/22 06:37 RBC Morph Micro Appear NORMAL APPEARANCE (NORMAL) 07/21/22 06:37 D-Dimer 215.8 ng/mL (200.0-255.0) 07/20/22 01:28 Sodium 142 mmol/L (135-145) 07/21/22 06:37 Potassium 4.8 mmol/L (3.5-5.0) 07/21/22 06:37 Chloride 100 mmol/L (101-111) L 07/21/22 06:37 Carbon Dioxide 34 mmol/L (21-32) H 07/21/22 06:37 Anion Gap 8.0 (6-13) 07/21/22 06:37 BUN 28 mg/dL (6-20) H 07/21/22 06:37 Creatinine 0.9 mg/dL (0.4-1.0) 07/21/22 06:37 Estimated GFR (MDRD) 64 (>89) L 07/21/22 06:37 Glucose 213 mg/dL (70-100) H 07/21/22 06:37 POC Whole Bld Glucose 297 mg/dL (70 - 100) H 07/21/22 11:21 Estimat Average Glucose 189 mg/dL (70-100) H 07/20/22 05:25 Hemoglobin A1c % 8.2 % (4.27-6.07) H 07/20/22 05:25 Calcium 9.5 mg/dL (8.5-10.3) 07/21/22 06:37 Magnesium 2.3 mg/dL (1.7-2.8) 07/21/22 06:37 Total Bilirubin 0.5 mg/dL (0.2-1.0) 07/19/22 08:56 AST 17 IU/L (10-42) 07/19/22 08:56 ALT 23 IU/L (10-60) 07/19/22 08:56 Alkaline Phosphatase 66 IU/L (42-121) 07/19/22 08:56 Troponin I High Sens 13.5 ng/L (2.3-14.8) 07/20/22 01:28 B-Natriuretic Peptide 162 pg/mL (5-100) H 07/19/22 08:56 Total Protein 6.7 g/dL (6.7-8.2) 07/19/22 08:56 Albumin 3.3 g/dL (3.2-5.5) 07/19/22 08:56 Globulin 3.4 g/dL (2.1-4.2) 07/19/22 08:56 Albumin/Globulin Ratio 1.0 (1.0-2.2) 07/19/22 08:56 Lipase 32 U/L (22-51) 07/19/22 08:56 TSH 0.41 uIU/mL (0.34-5.60) 07/20/22 01:28 Nasal Adenovirus (PCR) NOT DETECTED 07/19/22 09:10 Nasal B. parapertussis DNA (PCR) NOT DETECTED 07/19/22 09:10 Nasal Coronavir 229E PCR NOT DETECTED 07/19/22 09:10 Nasal Coronavir HKU1 PCR NOT DETECTED 07/19/22 09:10 Nasal Coronavir NL63 PCR NOT DETECTED 07/19/22 09:10 Nasal Coronavir OC43 PCR NOT DETECTED 07/19/22 09:10 Nasal Enterovir/Rhinovir PCR NOT DETECTED 07/19/22 09:10 Nasal Influenza B PCR NOT DETECTED 07/19/22 09:10 Nasal Influenza A PCR NOT DETECTED 07/19/22 09:10 Nasal Parainfluen 1 PCR NOT DETECTED 07/19/22 09:10 Nasal Parainfluen 2 PCR NOT DETECTED 07/19/22 09:10 Nasal Parainfluen 3 PCR NOT DETECTED 07/19/22 09:10 Nasal Parainfluen 4 PCR NOT DETECTED 07/19/22 09:10 Nasal RSV (PCR) NOT DETECTED 07/19/22 09:10 Nasal B.pertussis DNA PCR NOT DETECTED 07/19/22 09:10 Nasal C.pneumoniae (PCR) NOT DETECTED 07/19/22 09:10 [place] Human Metapneumo PCR DETECTED A 07/19/22 09:10 Nasal M.pneumoniae (PCR) NOT DETECTED 07/19/22 09:10 Nasal SARS-CoV-2 (PCR) NOT DETECTED 07/19/22 09:10 - Procedures Procedures: Procedures (02/05/21) ESOPHAGOGASTRODUODENOSCOPY [EGD] W/CLOSED BIOPSY (11/29/13) INSERTION OF INFUSION DEV INTO SUP VENA CAVA, PERC APPROACH (12/28/17) MANUAL RUPT JOINT ADHES (04/27/14) TOTAL KNEE REPLACEMENT (06/16/14)
[2022-07-21] MEDS ORDERED: IPRATROPIUM/ALBUTEROL 3 ML NEB INH PRN (18:27)
[2022-07-21] MEDS ORDERED: SPIRONOLACTONE 25 MG TABLET PO SCH (19:06)
[2022-07-21] MEDS: LIDOCAINE PATCH 5% TOP SCH (21:08)
[2022-07-21] MEDS: guaiFENesin 600 MG TABLET PO SCH (21:08)
[2022-07-22] MEDS: PROMETHAZINE 25 MG TABLET PO PRN ×3 (00:51→23:52)
[2022-07-22] MEDS: guaiFENesin 100 MG/5 ML UDC PO PRN ×3 (00:51→14:04)
[2022-07-22] MEDS: ACETAMINOPHEN 325 MG TABLET PO PRN ×3 (00:51→21:48)
[2022-07-22] MEDS: SODIUM CHLORIDE FLUSH 0.9% 10 ML SYRINGE IVP SCH ×4 (00:52→21:43)
[2022-07-22 05:34] LABS: BASOPHILS % (AUTO) 0.2 %; HCT - HEMATOCRIT 46.5 % (37.0-47.0); LYMPHOCYTES % (AUTO) 7.3 %; MEAN CORPUSCULAR HEMOGLOBIN 30.5 pg (27.0-31.0); MEAN CORPUSCULAR HGB CONC 30.1 g/dL (32.0-36.0); MEAN CORPUSCULAR VOLUME 101.3 fL (81.0-99.0); MEAN PLATELET VOLUME 9.7 fL (7.9-10.8); MONOCYTES % (AUTO) 3.9 %; NEUTROPHILS % (AUTO) 86.8 %; PLT - PLATELET COUNT 277 10^3/uL (130-450); RED BLOOD COUNT 4.59 10^6/uL (4.20-5.40); RED CELL DISTRIBUTION WIDTH 13.5 % (12.0-15.0); WHITE BLOOD COUNT 14.7 x10^3/uL (4.8-10.8)
[2022-07-22 05:40] LABS: ABNORMAL LYMPHS % (MANUAL) 0 %
[2022-07-22 05:43] LABS: CALCIUM 9.5 mg/dL (8.5-10.3); MAGNESIUM 2.5 mg/dL (1.7-2.8); POTASSIUM 5.2 mmol/L (3.5-5.0)
[2022-07-22] MEDS: FUROSEMIDE 20 MG/2 ML VIAL IVP SCH (05:56)
[2022-07-22] MEDS: methylPREDNISolone SUCCINATE 40 MG/ML VIAL IVP SCH ×3 (05:56→21:53)
[2022-07-22] MEDS: SODIUM CHLORIDE FLUSH 0.9% 10 ML SYRINGE IVP PRN ×2 (05:57→12:37)
[2022-07-22 06:02] LABS: BAND NEUTROPHILS % (MANUAL) 2 %; LYMPHOCYTES # (MANUAL) 1.5 10^3/uL (1.5-3.5); LYMPHOCYTES % (MANUAL) 10 %; MONOCYTES # (MANUAL) 0.6 10^3/uL (0.0-1.0); NEUTROPHILS # (MANUAL) 12.6 10^3/uL (1.5-6.6)
[2022-07-22 06:03] LABS: DIFFERENTIAL COMMENT MANUAL DIFFERENTIAL; PLATELET ESTIMATE, MANUAL NORMAL (130-450,000) (NORMAL); RBC MORPHOLOGY (MULTIPLE) NORMAL APPEARANCE (NORMAL)
[2022-07-22] MEDS: BUDESONIDE 0.5 MG/2 ML NEB INH SCH ×2 (07:09→18:43)
[2022-07-22] MEDS: IPRATROPIUM/ALBUTEROL 3 ML NEB INH SCH ×4 (07:10→18:43)
[2022-07-22] MEDS: INSULIN LISPRO 300 UNIT/3 ML PEN SUBQ SCH ×4 (08:57→21:42)
[2022-07-22] MEDS: LIDOCAINE PATCH 5% TOP SCH (09:01)
[2022-07-22] MEDS: FLUTICASONE NASAL SPRAY NAS SCH (09:01)
[2022-07-22] MEDS: CHOLECALCIFEROL 400 UNIT TABLET PO SCH (09:02)
[2022-07-22] MEDS: APIXABAN 5 MG TABLET PO SCH ×2 (09:03→21:39)
[2022-07-22] MEDS: guaiFENesin 600 MG TABLET PO SCH ×2 (09:03→21:41)
[2022-07-22] MEDS: CALCIUM CARB (OYSTER SHELL) 500 MG TABLET PO SCH (09:03)
[2022-07-22] MEDS: AMIODARONE 200 MG TABLET PO SCH (09:04)
[2022-07-22] MEDS: MULTIVITAMIN TABLET PO SCH (09:04)
[2022-07-22] MEDS: NYSTATIN POWDER 15 GM TOP SCH ×2 (09:12→21:43)
[2022-07-22] MEDS ORDERED: SPIRONOLACTONE 25 MG TABLET PO SCH ×2 (09:23→12:00)
[2022-07-22] MEDS ORDERED: NITROGLYCERIN SL 0.4 MG TABLET SL PRN (09:24)
[2022-07-22] MEDS: LORazepam 2 MG/ML VIAL IVP PRN (12:36)
[2022-07-22] MEDS: BENZOCAINE/MENTHOL LOZENGE MM PRN (14:05)
--- NOTE | 2022-07-22 14:08 | PROVIDER PROGRESS NOTE ---
Assessment/Plan - Problem List (1) Acute respiratory failure with hypoxia Assessment/Plan: This is likely from CHF exacerbation plus COPD exacerbation. VBS were reviewed. Today is the first day her supplemental O2 has been able to be decreased from 4 L down to 3 L, while maintaining saturations of 90 to 93%. Her granddaughter who is her caregiver, was at bedside today. I asked her if what the ER learned was true about the patient only using home oxygen as needed. The granddaughter Tushar said that, no she uses it all the time, set at 2 L, but recently over the last 1 month it has needed to go up to 4 L and saturations are 93% Plan: Continue with supplemental O2. Treat the underlying causes She will again need an oximetry walk test on the day of discharge to determine what her suppl O2 needs will be at [facility] (2) Acute bronchitis due to human metapneumovirus Assessment/Plan: She tested positive for this by PCR method from her nasal swab. COVID is negative. RSV is negative. This is likely the cause of the COPD exacerbation Plan: Respiratory and droplet isolation has been ordered. There is no specific antiviral for this infection (3) COPD exacerbation Conclusion/Plan: Cause for the current wheezing and COPD exacerbation is the (above) virus. She has a history of extremely slow improvement when she gets a COPD exacerbation needing admission. Plan: Cont IV steroids, Solumedrol 80mg TID today, given signif wheezing still heard We will start decreasing the Solu-Medrol to 40mg TID tomorrow, since her O2 needs and finally decreased Cont DuoNebs scheduled and cont the increased prn Duonebs from q4h to q2h (ad vised by RT). Continue her other COPD meds such as montelukast and Mucinex, give these scheduled, not prn Cont supplemental O2, goal saturation of oxygen is over 88% in a COPDer (4) Acute on chronic systolic heart failure Conclusion/Plan: Etiology does not appear to be from stopping meds. Her troponins ruled her out for PR as cause of CHF. With today's interaction, with granddaughter bringing her in extra liquids, I suspect that her CHF exacerbation was caused by taking in excessive amounts of oral liquid. Weight is down 2kg today since admission. Plan: Cont on telemetry watching for arrhythmias Will change IV twice daily Lasix to just once daily, starting today, because she is developing prerenal azotemia (all labs were reviewed) Follow I's and O's and daily weight Cont total fluid restriction of 2000 cc a day Continue with her other cardiac medications (5) Noncompliance with medications and management Yesterday RT witnessed that the patient was drinking a Big Gulp. Yesterday afternoon, her granddaughter and other lady had visited her, that is probably who brought her the Big Gulp. The volume of that was not charted in her I's and O's Today RN reported to me that the granddaughter brought in extra fluids (bottle of iced tea) because the pt called her and told her she had a dry mouth and wanted more liquids. RN [facility], instructed the granddaughter that the patient is on a total liquid restriction per day. The granddaughter replied "I will let my grandma drink what ever she wants". I was called into the pt's room by RN, while her granddaughter and another young lady were in the room, and I discussed the reason that the patient is on a fluid restriction. The granddaughter said she was bringing in fluids that the pt requested. I repeated why she needs to be on a fluid restriction. The granddaughter asked if pt can have a wet pink sponge to moisten mouth, and I agreed, and also advised a low-sugar lozenge be used to moisten mouth. Granddaughter then asked if she could give her potato chips that she brought, and I declined that and explained why there is also a salt restriction for the pt. Plan: We will order official nutrition consult for CHF teaching to pt and her caregiver, the granddaughter. (6) Hyperkalemia This could be from her worsened prerenal azotemia. She also also on spironolactone which retains potassium Plan: Will hold spironolactone for 1 day Decrease Lasix to just once daily and avoid nephrotoxins Follow BMP daily (7) Prerenal azotemia Labs were all reviewed. Her BUN/creatinine ratio is increasing ever since she has been put on IV diuretics Plan: We will decrease twice daily dosing to just once a day dosing of Lasix but continue IV diuretic Avoid nephrotoxins Follow BMP daily (8) Diabetes mellitus type 2 in obese Conclusion/Plan: Labs were reviewed. Glu all elevated >200 since being on on steroids, as expected. A1c came back at 8, last year was 7.7. Plan: Cont diabetic diet, hypoglycemia protocol, fingerstick checks, sliding scale insulin coverage Will increase her glipizide ER from 5 mg daily to 10 mg daily We will start long-acting insulin 5 units every p.m. (9) Chronic pain The patient is describing pain in the chest from coughing and in the upper back and neck which is her chronic pain She says that [place] balm helps this pain at home. Lidocaine patch was started last night, the patient said this did help her pain Plan: Continue lidocaine patch If granddaughter brings in her [place] balm topical pain med, I will order to use this as "patient's own med - Current Meds Current Meds: Current Medications Generic Name Dose Route Start Last Admin Trade Name Freq PRN Reason Stop Dose Admin Acetaminophen 650 mg 07/19/22 16:32 07/22/22 11:58 Acetaminophen 325 Mg Tablet PO 650 mg Q4HR PRN Administration Pain 1 to 4, or Fever Albuterol/Ipratropium 3 ml 07/19/22 19:00 07/22/22 11:11 Ipratropium/Albuterol 3 Ml Neb INH 3 ml RTQID ROMAN Administration Amiodarone HCl 100 mg 07/20/22 09:00 07/22/22 09:04 Amiodarone 200 Mg Tablet PO 100 mg DAILY ROMAN Administration Apixaban 5 mg 07/19/22 21:00 07/22/22 09:03 Apixaban 5 Mg Tablet PO 5 mg BID ROMAN Administration Budesonide 0.5 mg 07/19/22 21:00 07/22/22 07:09 Budesonide 0.5 Mg/2 Ml Neb INH 0.5 mg BID ROMAN Administration Calcium Carbonate/Glycine 500 mg 07/21/22 09:00 07/22/22 09:03 Calcium Carb (Oyster Shell) 500 Mg Tablet PO 500 mg DAILY ROMAN Administration Cholecalciferol 800 unit 07/21/22 09:00 07/22/22 09:02 Cholecalciferol 400 Unit Tablet PO 800 unit DAILY ROMAN Administration Fluticasone Propionate 2 sprays 07/20/22 09:00 07/22/22 09:01 Fluticasone Nasal [place] CLARISA 1 spray DAILY ROMAN Administration Guaifenesin 600 mg 07/21/22 21:00 07/22/22 09:03 Guaifenesin 600 Mg Tablet PO 600 mg BID ROMAN Administration Guaifenesin 200 mg 07/21/22 13:20 07/22/22 05:56 Guaifenesin 100 Mg/5 Ml Udc PO 200 mg Q4H PRN Administration Cough Insulin Human Lispro 3 - 11 unit 07/21/22 12:00 07/22/22 11:57 Insulin Lispro 300 Unit/3 Ml Pen SUBQ 11 unit 0800,1200,1700,2100 ROMAN Administration Protocol Lidocaine 1 patch 07/21/22 19:00 07/22/22 09:01 Lidocaine Patch 5% TOP Not Given DAILY ROMAN Lorazepam 1 mg 07/20/22 15:34 07/22/22 12:36 Lorazepam 2 Mg/Ml Vial IVP 1 mg Q6H PRN Administration Anxiety Methylprednisolone 80 mg 07/19/22 21:00 07/22/22 05:56 Methylprednisolone Succinate 40 Mg/Ml Vial IVP 80 mg TID ROMAN Administration Multivitamins 1 tab 07/20/22 08:00 07/22/22 09:04 Multivitamin Tablet PO 1 tab DAILYWM ROMAN Administration Nystatin 1 applic 07/20/22 11:00 07/22/22 09:12 Nystatin Powder 15 Gm TOP 1 applic BID ROMAN Administration Promethazine HCl 25 mg 07/20/22 15:33 07/22/22 12:04 Promethazine 25 Mg Tablet PO 25 mg Q6H PRN Administration Dyspnea Sodium Chloride 10 ml 07/19/22 16:32 07/22/22 12:37 Sodium Chloride Flush 0.9% 10 Ml Syringe IVP 10 ml PRN PRN Administration NEEDED PER PROVIDER ORDERS Sodium Chloride 10 ml 07/19/22 17:00 07/22/22 05:57 Sodium Chloride Flush 0.9% 10 Ml Syringe IVP 10 ml 0100,0900,1700 ROMAN Administration - Lab Result Fish Bone Diagrams: 07/22/22 05:28 07/22/22 05:28 - Additional Planning My Orders: My Active Orders 07/21/22 13:20 guaiFENesin LIQUID [Robitussin Liquid] 200 mg PO Q4H PRN 07/21/22 18:27 Ipratropium/Albuterol [Duoneb] 3 ml INH Q2HR PRN 07/21/22 19:00 Lidocaine Patch 5% [Lidoderm Patch] 1 patch TOP DAILY 07/21/22 21:00 guaiFENesin [Mucinex] 600 mg PO BID 07/22/22 09:23 Metoprolol Succinate [Toprol Xl] 25 mg PO BID 07/22/22 09:24 Nitroglycerin [Nitrostat] 0.4 mg SL Q5MIN PRN 07/22/22 10:27 Benzocaine/Menthol [Cepacol] 1 lozenge MM Q2HR PRN 07/22/22 21:00 Insulin Glargine-Yfgn [Semglee] 5 unit SUBQ QPM 07/23/22 05:00 BMP - BASIC METABOLIC PANEL [CHEM] DAILYLAB CBC - COMP BLD CT W/AUTO DIFF [HEME] DAILYLAB MAGNESIUM [CHEM] DAILYLAB 07/23/22 08:00 FUROSEMIDE INJ 20mg VIAL [LASIX INJ 20mg VIAL] 40 mg IVP 0800 glipiZIDE ER [Glucotrol Xl] 10 mg PO DAILYWM 07/23/22 12:00 Spironolactone [Aldactone] 25 mg PO 1200 07/23/22 21:00 Losartan [Cozaar] 25 mg PO QPM 07/24/22 05:00 BMP - BASIC METABOLIC PANEL [CHEM] DAILYLAB CBC - COMP BLD CT W/AUTO DIFF [HEME] DAILYLAB Subjective - Subjective Patient Reports: Other (Is thirsty. Has been calling her grandaughter requesting more to drink.) Nursing Reports: Other (Last megan RT told me he saw pt drinking a Big Gulp & fluid amount was not included in charted I's/O's. Today RN told me that pt's granddaughter, who is a [employer] & is her caregiver, brought in iced tea & potato chips,was told of fluid restriction, she said"I will give Grandma whatever she wants to drink") Objective Vital Signs: Vital Signs - 24 hr 07/21/22 07/21/22 07/21/22 15:19 15:26 16:47 Temperature 36.5 C Heart Rate 84 Heart Rate [ 70 Brachial] Respiratory 26 H 28 H Rate Blood Pressure 121/63 [Right Brachial artery] O2 Saturation 93 If not protocol 6 6 6 : Oxygen Flow, liters/minute 07/21/22 07/21/22 07/21/22 19:10 19:57 20:52 Temperature 36.4 C L Heart Rate 62 Heart Rate [ 56 L Brachial] Respiratory 20 25 H Rate Blood Pressure 107/52 L [Right Brachial artery] O2 Saturation 98 If not protocol 6 6 6 : Oxygen Flow, liters/minute 07/22/22 07/22/22 07/22/22 00:20 03:40 07:11 Temperature 36.9 C 36.3 C L Heart Rate 84 Heart Rate [ 71 69 Brachial] Respiratory 22 24 24 Rate Blood Pressure 144/58 H 107/54 L [Right Brachial artery] O2 Saturation 96 94 If not protocol 6 6 6 : Oxygen Flow, liters/minute 07/22/22 07/22/22 07/22/22 08:18 09:30 10:32 Temperature 37.0 C Heart Rate Heart Rate [ 65 Brachial] Respiratory 22 Rate Blood Pressure 110/87 H 110/49 L [Right Brachial artery] O2 Saturation 95 90 L 92 If not protocol 6 4 3 : Oxygen Flow, liters/minute 07/22/22 07/22/22 11:12 12:57 Temperature 36.4 C L Heart Rate 60 Heart Rate [ 59 L Brachial] Respiratory 26 H 22 Rate Blood Pressure 137/64 H [Right Brachial artery] O2 Saturation 94 If not protocol 3 3 : Oxygen Flow, liters/minute Oxygen O2 Source [With Activity] Room air O2 Source Nasal cannula Oxygen Flow Rate 4 I&O (Last 24 Hrs): Intake and Output Totals x24h 07/20/22 07/21/22 07/22/22 23:59 23:59 23:59 Intake Total 790 1420 1030 Output Total 2400 2300 300 Balance -1610 -880 730 General: Alert, Oriented x3, Other (Cushingoid appearing) HEENT: Atraumatic, Other (Cyanotic lips, is edentulous. is wearing O2 per n.c.) Neck: Supple Neuro: Alert, Non Focal Cardiovascular: Regular rate Respiratory: Wheezes, Rales Abdomen: Soft, Other (obese with pannus) Extremities: No clubbing, No edema, No tenderness/swelling - Results Results: Laboratory Results WBC 14.7 x10^3/uL (4.8-10.8) H 07/22/22 05:28 RBC 4.59 10^6/uL (4.20-5.40) 07/22/22 05:28 Hgb 14.0 g/dL (12.0-16.0) 07/22/22 05:28 Hct 46.5 % (37.0-47.0) 07/22/22 05:28 MCV 101.3 fL (81.0-99.0) H 07/22/22 05:28 MCH 30.5 pg (27.0-31.0) 07/22/22 05:28 MCHC 30.1 g/dL (32.0-36.0) L 07/22/22 05:28 RDW 13.5 % (12.0-15.0) 07/22/22 05:28 Plt Count 277 10^3/uL (130-450) 07/22/22 05:28 MPV 9.7 fL (7.9-10.8) 07/22/22 05:28 Neut # (Auto) Not Reportable 07/22/22 05:28 Lymph # (Auto) Not Reportable 07/22/22 05:28 [place] # (Auto) Not Reportable 07/22/22 05:28 Eos # (Auto) Not Reportable 07/22/22 05:28 Baso # (Auto) Not Reportable 07/22/22 05:28 Absolute Nucleated RBC Not Reportable 07/22/22 05:28 Total Counted 100 07/22/22 05:28 Band Neuts % (Manual) 2 % (0-10) 07/22/22 05:28 Abnorm Lymph % (Manual) 0 % 07/22/22 05:28 Other Cells % 1 % 07/21/22 06:37 Nucleated RBC % Not Reportable 07/22/22 05:28 Neutrophils # (Manual) 12.6 10^3/uL (1.5-6.6) H 07/22/22 05:28 Lymphocytes # (Manual) 1.5 10^3/uL (1.5-3.5) 07/22/22 05:28 Monocytes # (Manual) 0.6 10^3/uL (0.0-1.0) 07/22/22 05:28 Eosinophils # (Manual) 0.0 10^3/uL (0-0.7) 07/22/22 05:28 Basophils # (Manual) 0.0 10^3/uL (0-0.1) 07/22/22 05:28 Differential Comment MANUAL DIFFERENTIAL 07/22/22 05:28 Manual Slide Review TOP COATER 07/21/22 06:37 WBC Morphology NORMAL APPEARANCE (NORMAL) 07/20/22 05:25 Platelet Estimate NORMAL (130-450,000) (NORMAL) 07/22/22 05:28 Platelet Morphology NORMAL APPEARANCE (NORMAL) 07/21/22 06:37 RBC Morph Micro Appear NORMAL APPEARANCE (NORMAL) 07/22/22 05:28 D-Dimer 215.8 ng/mL (200.0-255.0) 07/20/22 01:28 Sodium 139 mmol/L (135-145) 07/22/22 05:28 Potassium 5.2 mmol/L (3.5-5.0) H 07/22/22 05:28 Chloride 96 mmol/L (101-111) L 07/22/22 05:28 Carbon Dioxide 35 mmol/L (21-32) H 07/22/22 05:28 Anion Gap 8.0 (6-13) 07/22/22 05:28 BUN 32 mg/dL (6-20) H 07/22/22 05:28 Creatinine 1.0 mg/dL (0.4-1.0) 07/22/22 05:28 Estimated GFR (MDRD) 57 (>89) L 07/22/22 05:28 Glucose 255 mg/dL (70-100) H 07/22/22 05:28 POC Whole Bld Glucose 322 mg/dL (70 - 100) H 07/22/22 11:07 Estimat Average Glucose 189 mg/dL (70-100) H 07/20/22 05:25 Hemoglobin A1c % 8.2 % (4.27-6.07) H 07/20/22 05:25 Calcium 9.5 mg/dL (8.5-10.3) 07/22/22 05:28 Magnesium 2.5 mg/dL (1.7-2.8) 07/22/22 05:28 Total Bilirubin 0.5 mg/dL (0.2-1.0) 07/19/22 08:56 AST 17 IU/L (10-42) 07/19/22 08:56 ALT 23 IU/L (10-60) 07/19/22 08:56 Alkaline Phosphatase 66 IU/L (42-121) 07/19/22 08:56 Troponin I High Sens 13.5 ng/L (2.3-14.8) 07/20/22 01:28 B-Natriuretic Peptide 162 pg/mL (5-100) H 07/19/22 08:56 Total Protein 6.7 g/dL (6.7-8.2) 03 08:56 Albumin 3.3 g/dL (3.2-5.5) 07/19/22 08:56 Globulin 3.4 g/dL (2.1-4.2) 07/19/22 08:56 Albumin/Globulin Ratio 1.0 (1.0-2.2) 07/19/22 08:56 Lipase 32 U/L (22-51) 07/19/22 08:56 TSH 0.41 uIU/mL (0.34-5.60) 07/20/22 01:28 Nasal Adenovirus (PCR) NOT DETECTED 07/19/22 09:10 Nasal B. parapertussis DNA (PCR) NOT DETECTED 07/19/22 09:10 Nasal Coronavir 229E PCR NOT DETECTED 07/19/22 09:10 Nasal Coronavir HKU1 PCR NOT DETECTED 07/19/22 09:10 Nasal Coronavir NL63 PCR NOT DETECTED 07/19/22 09:10 Nasal Coronavir OC43 PCR NOT DETECTED 07/19/22 09:10 Nasal Enterovir/Rhinovir PCR NOT DETECTED 07/19/22 09:10 Nasal Influenza B PCR NOT DETECTED 07/19/22 09:10 Nasal Influenza A PCR NOT DETECTED 07/19/22 09:10 Nasal Parainfluen 1 PCR NOT DETECTED 07/19/22 09:10 Nasal Parainfluen 2 PCR NOT DETECTED 07/19/22 09:10 Nasal Parainfluen 3 PCR NOT DETECTED 07/19/22 09:10 Nasal Parainfluen 4 PCR NOT DETECTED 07/19/22 09:10 Nasal RSV (PCR) NOT DETECTED 07/19/22 09:10 Nasal B.pertussis DNA PCR NOT DETECTED 07/19/22 09:10 Nasal C.pneumoniae (PCR) NOT DETECTED 07/19/22 09:10 [place] Human Metapneumo PCR DETECTED A 07/19/22 09:10 Nasal M.pneumoniae (PCR) NOT DETECTED 07/19/22 09:10 Nasal SARS-CoV-2 (PCR) NOT DETECTED 07/19/22 09:10 - Procedures Procedures: Procedures (02/05/21) ESOPHAGOGASTRODUODENOSCOPY [EGD] W/CLOSED BIOPSY (11/29/13) INSERTION OF INFUSION DEV INTO SUP VENA CAVA, PERC APPROACH (12/28/17) MANUAL RUPT JOINT ADHES (04/27/14) TOTAL KNEE REPLACEMENT (06/16/14)
[2022-07-22] MEDS: METOPROLOL SUCCINATE 50 MG TABLET PO SCH (21:40)
[2022-07-22] MEDS: INSULIN GLARGINE-YFGN 300 UNIT/3 ML PEN SUBQ SCH (21:47)
[2022-07-23 04:49] LABS: BASOPHILS % (AUTO) 0.2 %; HCT - HEMATOCRIT 48.3 % (37.0-47.0); HGB - HEMOGLOBIN 14.6 g/dL (12.0-16.0); LYMPHOCYTES # (AUTO) 0.9 10^3/uL (1.5-3.5); LYMPHOCYTES % (AUTO) 5.8 %; MEAN CORPUSCULAR HEMOGLOBIN 30.2 pg (27.0-31.0); MEAN CORPUSCULAR HGB CONC 30.2 g/dL (32.0-36.0); MEAN PLATELET VOLUME 9.4 fL (7.9-10.8); MONOCYTES # (AUTO) 0.6 10^3/uL (0.0-1.0); MONOCYTES % (AUTO) 4.2 %; NEUTROPHILS % (AUTO) 87.9 %; PLT - PLATELET COUNT 270 10^3/uL (130-450); RED BLOOD COUNT 4.83 10^6/uL (4.20-5.40); RED CELL DISTRIBUTION WIDTH 13.2 % (12.0-15.0); WHITE BLOOD COUNT 14.8 x10^3/uL (4.8-10.8)
[2022-07-23 05:04] LABS: CALCIUM 9.6 mg/dL (8.5-10.3); CREATININE 0.9 mg/dL (0.4-1.0); MAGNESIUM 2.5 mg/dL (1.7-2.8); POTASSIUM 5.1 mmol/L (3.5-5.0)
[2022-07-23] MEDS: methylPREDNISolone SUCCINATE 40 MG/ML VIAL IVP SCH ×3 (06:12→21:49)
[2022-07-23] MEDS: ACETAMINOPHEN 325 MG TABLET PO PRN ×2 (06:12→20:45)
[2022-07-23] MEDS: IPRATROPIUM/ALBUTEROL 3 ML NEB INH SCH ×4 (07:05→19:05)
[2022-07-23] MEDS: BUDESONIDE 0.5 MG/2 ML NEB INH SCH ×2 (07:05→19:05)
[2022-07-23] MEDS ORDERED: FUROSEMIDE 20 MG/2 ML VIAL IVP SCH (08:00)
[2022-07-23] MEDS: AMIODARONE 200 MG TABLET PO SCH (08:42)
[2022-07-23] MEDS: guaiFENesin 600 MG TABLET PO SCH ×2 (08:42→20:45)
[2022-07-23] MEDS: PROMETHAZINE 25 MG TABLET PO PRN ×2 (08:42→16:04)
[2022-07-23] MEDS: METOPROLOL SUCCINATE 50 MG TABLET PO SCH ×2 (08:42→21:54)
[2022-07-23] MEDS: MULTIVITAMIN TABLET PO SCH (08:42)
[2022-07-23] MEDS: APIXABAN 5 MG TABLET PO SCH ×2 (08:42→21:51)
[2022-07-23] MEDS: CHOLECALCIFEROL 400 UNIT TABLET PO SCH (08:42)
[2022-07-23] MEDS: CALCIUM CARB (OYSTER SHELL) 500 MG TABLET PO SCH (08:42)
[2022-07-23] MEDS: LIDOCAINE PATCH 5% TOP SCH (08:43)
[2022-07-23] MEDS: NYSTATIN POWDER 15 GM TOP SCH ×2 (08:44→20:47)
[2022-07-23] MEDS: FLUTICASONE NASAL SPRAY NAS SCH (08:44)
[2022-07-23] MEDS: SODIUM CHLORIDE FLUSH 0.9% 10 ML SYRINGE IVP SCH ×2 (08:45→16:04)
[2022-07-23] MEDS: INSULIN LISPRO 300 UNIT/3 ML PEN SUBQ SCH ×4 (08:45→21:54)
[2022-07-23] MEDS: BENZOCAINE/MENTHOL LOZENGE MM PRN ×4 (09:52→20:45)
[2022-07-23] MEDS ORDERED: SPIRONOLACTONE 25 MG TABLET PO SCH (12:00)
[2022-07-23] MEDS: LORazepam 2 MG/ML VIAL IVP PRN ×2 (12:13→20:18)
--- NOTE | 2022-07-23 14:17 | PROVIDER PROGRESS NOTE ---
Assessment/Plan - Problem List (1) Acute respiratory failure with hypoxia Assessment/Plan: We feel this is from CHF exacerbation plus COPD exacerbation. VS were reviewed. Her supplemental O2 has been able to be decreased from 4 L down to 2 L, while maintaining saturations of 90 to 93%. Her granddaughter Tushar told me on 07/23 that the pt uses her O2 all the time, not which she told the ER that she only uses it as needed. It is set at 2 L, but recently over the last 1 month it has needed to go up to 4 L and saturations are 93% Plan: Continue with supplemental O2. Treat the underlying causes She will again need an oximetry walk test on the day of discharge to determine what her suppl O2 needs will be at [facility] (2) Acute bronchitis due to human metapneumovirus Assessment/Plan: She tested positive for this by PCR method from her nasal swab. COVID is negative. RSV is negative. This is likely the cause of the COPD exacerbation Plan: Respiratory and droplet isolation has been ordered. There is no specific antiviral for this infection (3) COPD exacerbation Conclusion/Plan: Cause for the current wheezing and COPD exacerbation is likely the (above) virus. She has a history of extremely slow improvement when she gets a COPD exacerbation needing admission. Plan: Cont IV steroids, decreasing the Solu-Medrol to 40mg TID, since her O2 needs have decreased Cont DuoNebs scheduled but cont the increased prn Duonebs from q4h to q2h (advised by RT). Continue her other COPD meds such as Montelukast and Mucinex, give these s cheduled, not prn Cont supplemental O2, goal saturation of oxygen is over 88% in a COPDer (4) Acute on chronic systolic heart failure Conclusion/Plan: Etiology does not appear to be from stopping meds. Her troponins ruled her out for [place] as cause of CHF. We learned yesterday 07/22, that the granddaughter brings her in extra liquids, so I suspect that her CHF exacerbation was caused by taking in excessive amounts of liquids orally. Weight is down only 2kg since admission. Plan: Will stop telemetry Will change IV Lasix to oral Follow I's and O's and daily weight Will allow total fluid restriction of 2400 cc a day, due to pre-renal azotemia Continue with her other cardiac medications (5) Noncompliance with medications and management On 07/21 RT witnessed that the patient was drinking a Big Gulp after her granddaughter and other lady visited her and probably brought her the Big Gulp. The volume of that was not charted in her I's and O's On 07/22, RN reported to me that the granddaughter brought in extra fluids (bottle of iced tea) because the pt called her and told her she had a dry mouth and wanted more liquids. RN instructed the granddaughter that the patient is on a total liquid restriction per day. The granddaughter replied "I will let my grandma drink what ever she wants". I was called into the pt's room by that RN, while her granddaughter and another young lady were still in the room, and I discussed the reason that the patient is on a fluid restriction. The granddaughter said she was bringing in fluids that the pt requested. I repeated why she needs to be on a fluid restriction. The granddaughter asked if pt can have a wet pink sponge to moisten mouth, and I agreed, and also advised a low- sugar lozenge be used to moisten mouth. Granddaughter then asked if she could give her potato chips that she brought, and I declined that and explained why there is also a salt restriction for the pt. Plan: We will order official nutrition consult for CHF teaching to pt and her caregiver, the granddaughter (but today is Monday and there is no dietitian here on the weekends) (6) Hyperkalemia This could be from her worsened prerenal azotemia. She was also on spironolactone which retains potassium We held spironolactone for 1 day (07/22) and today starting po, not iv Lasix Plan: Avoid nephrotoxins Follow BMP daily (7) Prerenal azotemia Labs were all reviewed. Her BUN/creatinine ratio was increasing ever since she had been put on IV diuretics On 07/22, decreased twice daily dosing to just once a day dosing of Lasix but continue the diuretic Plan: Will allow total fluid restriction of 2400 cc a day, due to pre-renal azotemia Avoid nephrotoxins Follow BMP daily (8) Diabetes mellitus type 2 in obese Conclusion/Plan: Labs were reviewed. Glu all elevated >200 since being on on steroids, as expected. A1c came back at 8, last year was 7.7. Plan: Cont diabetic diet, hypoglycemia protocol, fingerstick checks, sliding scale insulin coverage Will increase her glipizide ER from 5 mg daily to 10 mg daily We will start long-acting insulin 5 units every p.m. (9) Chronic pain The patient is describing pain in the chest from coughing and in the upper back and neck which is her chronic pain She says that [place] balm helps this pain at home. Lidocaine patch was started last night, the patient said this did help her pain Plan: Continue lidocaine patch If granddaughter brings in her [place] balm topical pain med, I will order to use this as "patient's own med - Current Meds Current Meds: Current Medications Generic Name Dose Route Start Last Admin Trade Name Mauricioq PRN Reason Stop Dose Admin Acetaminophen 650 mg 07/19/22 16:32 07/23/22 06:12 Acetaminophen 325 Mg Tablet PO 650 mg Q4HR PRN Administration Pain 1 to 4, or Fever Albuterol/Ipratropium 3 ml 07/19/22 19:00 07/23/22 11:47 Ipratropium/Albuterol 3 Ml Neb INH 3 ml RTQID ROMAN Administration Albuterol/Ipratropium 3 ml 07/21/22 18:27 07/23/22 00:04 Ipratropium/Albuterol 3 Ml Neb INH 3 ml Q2HR PRN Administration Wheezing Amiodarone HCl 100 mg 07/20/22 09:00 07/23/22 08:42 Amiodarone 200 Mg Tablet PO 100 mg DAILY ROMAN Administration Apixaban 5 mg 07/19/22 21:00 07/23/22 08:42 Apixaban 5 Mg Tablet PO 5 mg BID ROMAN Administration Budesonide 0.5 mg 07/19/22 21:00 07/23/22 07:05 Budesonide 0.5 Mg/2 Ml Neb INH 0.5 mg BID ROMAN Administration Calcium Carbonate/Glycine 500 mg 07/21/22 09:00 07/23/22 08:42 Calcium Carb (Oyster Shell) 500 Mg Tablet PO 500 mg DAILY ROMAN Administration Cholecalciferol 800 unit 07/21/22 09:00 07/23/22 08:42 Cholecalciferol 400 Unit Tablet PO 800 unit DAILY ROMAN Administration Fluticasone Propionate 2 sprays 07/20/22 09:00 07/23/22 08:44 Fluticasone Nasal [place] CLARISA 1 spray DAILY ROMAN Administration Furosemide 40 mg 07/23/22 08:00 07/23/22 08:41 Furosemide 20 Mg/2 Ml Vial IVP 07/23/22 23:00 40 mg 0800 ROMAN Administration Glipizide 10 mg 07/23/22 09:31 07/23/22 09:53 Glipizide Er 2.5 Mg Tablet PO 10 mg DAILYWM ROMAN Administration Guaifenesin 600 mg 07/21/22 21:00 07/23/22 08:42 Guaifenesin 600 Mg Tablet PO 600 mg BID ROMAN Administration Guaifenesin 200 mg 07/21/22 13:20 07/22/22 14:04 Guaifenesin 100 Mg/5 Ml Udc PO 200 mg Q4H PRN Administration Cough Insulin Glargine-yfgn 5 unit 07/22/22 21:00 07/22/22 21:47 Insulin Glargine-Yfgn 300 Unit/3 Ml Pen SUBQ 5 unit QPM ROMAN Administration Insulin Human Lispro 3 - 11 unit 07/21/22 12:00 07/23/22 12:05 Insulin Lispro 300 Unit/3 Ml Pen SUBQ 9 unit 0800,1200,1700,2100 ROMAN Administration Protocol Lidocaine 1 patch 07/21/22 19:00 07/23/22 08:43 Lidocaine Patch 5% TOP 1 patch DAILY ROMAN Administration Lorazepam 1 mg 07/20/22 15:34 07/23/22 12:13 Lorazepam 2 Mg/Ml Vial IVP 1 mg Q6H PRN Administration Anxiety Metoprolol Succinate 25 mg 07/22/22 09:23 07/23/22 08:42 Metoprolol Succinate 50 Mg Tablet PO 25 mg BID ROMAN Administration Multivitamins 1 tab 07/20/22 08:00 07/23/22 08:42 Multivitamin Tablet PO 1 tab DAILYWM ROMAN Administration Nystatin 1 applic 07/20/22 11:00 07/23/22 08:44 Nystatin Powder 15 Gm TOP 1 applic BID ROMAN Administration Promethazine HCl 25 mg 07/20/22 15:33 07/23/22 08:42 Promethazine 25 Mg Tablet PO 25 mg Q6H PRN Administration Dyspnea Sodium Chloride 10 ml 07/19/22 16:32 07/22/22 12:37 Sodium Chloride Flush 0.9% 10 Ml Syringe IVP 10 ml PRN PRN Administration NEEDED PER PROVIDER ORDERS Sodium Chloride 10 ml 07/19/22 17:00 07/23/22 08:45 Sodium Chloride Flush 0.9% 10 Ml Syringe IVP 10 ml 0100,0900,1700 ROMAN Administration Spironolactone 25 mg 07/23/22 12:00 07/23/22 12:06 Spironolactone 25 Mg Tablet PO 25 mg 1200 ROMAN Administration Throat Lozenges 1 lozenge 07/22/22 10:27 07/23/22 09:52 Benzocaine/Menthol Lozenge MM 1 lozenge Q2HR PRN Administration Throat pain - Lab Result Fish Bone Diagrams: 07/24/22 04:53 07/24/22 04:53 - Additional Planning My Orders: My Active Orders 07/22/22 16:19 Nutrition Consult [CONS] Routine 07/22/22 21:00 Insulin Glargine-Yfgn [Semglee] 5 unit SUBQ QPM 07/23/22 08:00 FUROSEMIDE INJ 20mg VIAL [LASIX INJ 20mg VIAL] 40 mg IVP 0800 07/23/22 09:31 glipiZIDE ER [Glucotrol Xl] 10 mg PO DAILYWM 07/23/22 12:00 Spironolactone [Aldactone] 25 mg PO 1200 07/23/22 14:00 methylPREDNISolone SUCCINATE [SOLU-Medrol (40MG VIAL)] 40 mg IVP TID 07/23/22 21:00 Losartan [Cozaar] 25 mg PO QPM 07/24/22 05:00 BMP - BASIC METABOLIC PANEL [CHEM] DAILYLAB CBC - COMP BLD CT W/AUTO DIFF [HEME] DAILYLAB 07/24/22 08:00 Furosemide [Lasix] 40 mg PO 0800,1400 Subjective - Subjective Patient Reports: Cough (Has had continued cough and hard to expectorate), Pain (Has anterior chest pain when she coughs), Shortness of Breath Objective Vital Signs: Vital Signs - 24 hr 07/22/22 07/22/22 07/22/22 15:03 15:39 18:45 Temperature 36.6 C Heart Rate 64 60 Heart Rate [ 68 Brachial] Respiratory 26 H 24 24 Rate Blood Pressure [Left Brachial artery] Blood Pressure 124/60 [Right Brachial artery] O2 Saturation 93 If not protocol 4 4 4 : Oxygen Flow, liters/minute 07/22/22 07/22/22 07/23/22 21:00 23:35 00:05 Temperature 36.6 C 36.3 C L Heart Rate 60 Heart Rate [ 64 53 L Brachial] Respiratory 26 H 24 26 H Rate Blood Pressure 130/68 [Left Brachial artery] Blood Pressure 130/80 [Right Brachial artery] O2 Saturation 91 L 88 L If not protocol 4 4 6 : Oxygen Flow, liters/minute 07/23/22 07/23/22 07/23/22 04:44 05:21 07:09 Temperature 36.5 C Heart Rate 67 Heart Rate [ 62 Brachial] Respiratory 24 18 Rate Blood Pressure [Left Brachial artery] Blood Pressure 113/55 L [Right Brachial artery] O2 Saturation 90 L 98 If not protocol 6 6 4 : Oxygen Flow, liters/minute 07/23/22 07/23/22 07/23/22 07:50 11:48 13:00 Temperature 36.9 C 36.4 C L Heart Rate 78 Heart Rate [ 65 61 Brachial] Respiratory 24 19 22 Rate Blood Pressure 122/51 L 129/55 L [Left Brachial artery] Blood Pressure [Right Brachial artery] O2 Saturation 91 L 90 L If not protocol 4 4 : Oxygen Flow, liters/minute Oxygen O2 Source [With Activity] Room air O2 Source Nasal cannula Oxygen Flow Rate 4 I&O (Last 24 Hrs): Intake and Output Totals x24h 07/21/22 07/22/22 07/23/22 23:59 23:59 23:59 Intake Total 1420 1460 720 Output Total 2300 825 300 Balance -880 635 420 General: Alert, Oriented x3 HEENT: Mucous membr. moist/pink, Other (Wearing O2 per nasal cannula) Neck: Supple Neuro: Alert, Non Focal Cardiovascular: Regular rate Respiratory: Wheezes, Rales, Rhonchi Abdomen: Soft, Other (Obese with pannus) Extremities: No clubbing, No edema, No tenderness/swelling - Results Results: Laboratory Results WBC 14.8 x10^3/uL (4.8-10.8) H 07/23/22 04:36 RBC 4.83 10^6/uL (4.20-5.40) 07/23/22 04:36 Hgb 14.6 g/dL (12.0-16.0) 07/23/22 04:36 Hct 48.3 % (37.0-47.0) H 07/23/22 04:36 MCV 100.0 fL (81.0-99.0) H 07/23/22 04:36 MCH 30.2 pg (27.0-31.0) 07/23/22 04:36 MCHC 30.2 g/dL (32.0-36.0) L 07/23/22 04:36 RDW 13.2 % (12.0-15.0) 07/23/22 04:36 Plt Count 270 10^3/uL (130-450) 07/23/22 04:36 MPV 9.4 fL (7.9-10.8) 07/23/22 04:36 Neut # (Auto) 13.0 10^3/uL (1.5-6.6) H 07/23/22 04:36 Lymph # (Auto) 0.9 10^3/uL (1.5-3.5) L 07/23/22 04:36 [place] # (Auto) 0.6 10^3/uL (0.0-1.0) 07/23/22 04:36 Eos # (Auto) 0.0 10^3/uL (0.0-0.7) 07/23/22 04:36 Baso # (Auto) 0.0 10^3/uL (0.0-0.1) 07/23/22 04:36 Absolute Nucleated RBC 0.00 x10^3/uL 07/23/22 04:36 Total Counted 100 07/22/22 05:28 Band Neuts % (Manual) 2 % (0-10) 07/22/22 05:28 Abnorm Lymph % (Manual) 0 % 07/22/22 05:28 Other Cells % 1 % 07/21/22 06:37 Nucleated RBC % 0.0 /100WBC 07/23/22 04:36 Neutrophils # (Manual) 12.6 10^3/uL (1.5-6.6) H 07/22/22 05:28 Lymphocytes # (Manual) 1.5 10^3/uL (1.5-3.5) 07/22/22 05:28 Monocytes # (Manual) 0.6 10^3/uL (0.0-1.0) 07/22/22 05:28 Eosinophils # (Manual) 0.0 10^3/uL (0-0.7) 07/22/22 05:28 Basophils # (Manual) 0.0 10^3/uL (0-0.1) 07/22/22 05:28 Differential Comment MANUAL DIFFERENTIAL 07/22/22 05:28 Manual Slide Review PRE PRESS PROOFER 07/21/22 06:37 WBC Morphology NORMAL APPEARANCE (NORMAL) 07/20/22 05:25 Platelet Estimate NORMAL (130-450,000) (NORMAL) 07/22/22 05:28 Platelet Morphology NORMAL APPEARANCE (NORMAL) 07/21/22 06:37 RBC Morph Micro Appear NORMAL APPEARANCE (NORMAL) 07/22/22 05:28 D-Dimer 215.8 ng/mL (200.0-255.0) 07/20/22 01:28 Sodium 143 mmol/L (135-145) 07/23/22 04:36 Potassium 5.1 mmol/L (3.5-5.0) H 07/23/22 04:36 Chloride 97 mmol/L (101-111) L 07/23/22 04:36 Carbon Dioxide 39 mmol/L (21-32) H* 07/23/22 04:36 Anion Gap 7.0 (6-13) 07/23/22 04:36 BUN 31 mg/dL (6-20) H 07/23/22 04:36 Creatinine 0.9 mg/dL (0.4-1.0) 07/23/22 04:36 Estimated GFR (MDRD) 64 (>89) L 07/23/22 04:36 Glucose 196 mg/dL (70-100) H 07/23/22 04:36 POC Whole Bld Glucose 302 mg/dL (70 - 100) H 07/23/22 11:32 Estimat Average Glucose 189 mg/dL (70-100) H 07/20/22 05:25 Hemoglobin A1c % 8.2 % (4.27-6.07) H 07/20/22 05:25 Calcium 9.6 mg/dL (8.5-10.3) 07/23/22 04:36 Magnesium 2.5 mg/dL (1.7-2.8) 07/23/22 04:36 Total Bilirubin 0.5 mg/dL (0.2-1.0) 07/19/22 08:56 AST 17 IU/L (10-42) 07/19/22 08:56 ALT 23 IU/L (10-60) 07/19/22 08:56 Alkaline Phosphatase 66 IU/L (42-121) 07/19/22 08:56 Troponin I High Sens 13.5 ng/L (2.3-14.8) 07/20/22 01:28 B-Natriuretic Peptide 162 pg/mL (5-100) H 07/19/22 08:56 Total Protein 6.7 g/dL (6.7-8.2) 07/19/22 08:56 Albumin 3.3 g/dL (3.2-5.5) 07/19/22 08:56 Globulin 3.4 g/dL (2.1-4.2) 07/19/22 08:56 Albumin/Globulin Ratio 1.0 (1.0-2.2) 07/19/22 08:56 Lipase 32 U/L (22-51) 07/19/22 08:56 TSH 0.41 uIU/mL (0.34-5.60) 07/20/22 01:28 Nasal Adenovirus (PCR) NOT DETECTED 07/19/22 09:10 Nasal B. parapertussis DNA (PCR) NOT DETECTED 07/19/22 09:10 Nasal Coronavir 229E PCR NOT DETECTED 07/19/22 09:10 Nasal Coronavir HKU1 PCR NOT DETECTED 07/19/22 09:10 Nasal Coronavir NL63 PCR NOT DETECTED 07/19/22 09:10 Nasal Coronavir OC43 PCR NOT DETECTED 07/19/22 09:10 Nasal Enterovir/Rhinovir PCR NOT DETECTED 07/19/22 09:10 Nasal Influenza B PCR NOT DETECTED 07/19/22 09:10 Nasal Influenza A PCR NOT DETECTED 07/19/22 09:10 Nasal Parainfluen 1 PCR NOT DETECTED 07/19/22 09:10 Nasal Parainfluen 2 PCR NOT DETECTED 07/19/22 09:10 Nasal Parainfluen 3 PCR NOT DETECTED 07/19/22 09:10 Nasal Parainfluen 4 PCR NOT DETECTED 07/19/22 09:10 Nasal RSV (PCR) NOT DETECTED 07/19/22 09:10 Nasal B.pertussis DNA PCR NOT DETECTED 07/19/22 09:10 Nasal C.pneumoniae (PCR) NOT DETECTED 07/19/22 09:10 [place] Human Metapneumo PCR DETECTED A 07/19/22 09:10 Nasal M.pneumoniae (PCR) NOT DETECTED 07/19/22 09:10 Nasal SARS-CoV-2 (PCR) NOT DETECTED 07/19/22 09:10 - Procedures Procedures: Procedures (02/05/21) ESOPHAGOGASTRODUODENOSCOPY [EGD] W/CLOSED BIOPSY (11/29/13) INSERTION OF INFUSION DEV INTO SUP VENA CAVA, PERC APPROACH (12/28/17) MANUAL RUPT JOINT ADHES (04/27/14) TOTAL KNEE REPLACEMENT (06/16/14)
[2022-07-23] MEDS ORDERED: LOSARTAN 50 MG TABLET PO SCH (21:00)
[2022-07-23] MEDS: INSULIN GLARGINE-YFGN 300 UNIT/3 ML PEN SUBQ SCH (21:54)
[2022-07-24] MEDS: SODIUM CHLORIDE FLUSH 0.9% 10 ML SYRINGE IVP SCH ×2 (01:02→04:28)
[2022-07-24] MEDS: PROMETHAZINE 25 MG TABLET PO PRN ×2 (01:03→09:07)
[2022-07-24] MEDS: LORazepam 2 MG/ML VIAL IVP PRN (04:28)
[2022-07-24] MEDS: guaiFENesin 100 MG/5 ML UDC PO PRN (04:28)
[2022-07-24] MEDS: ACETAMINOPHEN 325 MG TABLET PO PRN (04:28)
[2022-07-24 05:08] LABS: BASOPHILS # (AUTO) 0.1 10^3/uL (0.0-0.1); BASOPHILS % (AUTO) 0.4 %; HCT - HEMATOCRIT 48.1 % (37.0-47.0); HGB - HEMOGLOBIN 15.3 g/dL (12.0-16.0); LYMPHOCYTES # (AUTO) 0.9 10^3/uL (1.5-3.5); LYMPHOCYTES % (AUTO) 5.5 %; MEAN CORPUSCULAR HEMOGLOBIN 31.2 pg (27.0-31.0); MEAN CORPUSCULAR HGB CONC 31.8 g/dL (32.0-36.0); MEAN PLATELET VOLUME 9.6 fL (7.9-10.8); MONOCYTES # (AUTO) 0.7 10^3/uL (0.0-1.0); MONOCYTES % (AUTO) 4.2 %; NEUTROPHILS # (AUTO) 14.5 10^3/uL (1.5-6.6); NEUTROPHILS % (AUTO) 88.1 %; PLT - PLATELET COUNT 286 10^3/uL (130-450); RED BLOOD COUNT 4.91 10^6/uL (4.20-5.40); RED CELL DISTRIBUTION WIDTH 13.3 % (12.0-15.0); WHITE BLOOD COUNT 16.4 x10^3/uL (4.8-10.8)
[2022-07-24 05:20] LABS: CALCIUM 9.8 mg/dL (8.5-10.3); CREATININE 0.9 mg/dL (0.4-1.0); POTASSIUM 4.8 mmol/L (3.5-5.0)
[2022-07-24] MEDS: methylPREDNISolone SUCCINATE 40 MG/ML VIAL IVP SCH (06:26)
[2022-07-24] MEDS: SODIUM CHLORIDE FLUSH 0.9% 10 ML SYRINGE IVP PRN (06:26)
[2022-07-24] MEDS: IPRATROPIUM/ALBUTEROL 3 ML NEB INH SCH (07:48)
[2022-07-24] MEDS: BUDESONIDE 0.5 MG/2 ML NEB INH SCH (07:48)
[2022-07-24] MEDS ORDERED: FUROSEMIDE 40 MG TABLET PO SCH (08:00)
[2022-07-24 08:36] VITALS: BP 127/81
--- NOTE | 2022-07-24 08:36 | XRAY Report ---
PROCEDURE: Chest 1 View X-Ray INDICATIONS: Persistent SOB and incr O2 needs TECHNIQUE: One view of the chest was acquired. COMPARISON: 07/24/22 FINDINGS: Surgical changes and devices: Left chest wall pulse generator and electrode leads. Lungs and pleura: Moderstae persistent diffuse lung disease. Mediastinum: Heart size is at the upper limit of normal. Bones and chest wall: No suspicious bony lesions. Overlying soft tissues appear unremarkable. IMPRESSION: Moderate diffuse lung disease, possibly edema or infection, similar to prior. Consider future imaging surveillance to assess for resolution. Reviewed by: Joao Fregoso MD on 07/24/2022 8:34 AM PDT Approved by: Joao Fregoso MD on 07/24/2022 8:34 AM PDT Station ID: [id number]
[2022-07-24] MEDS: BENZOCAINE/MENTHOL LOZENGE MM PRN (09:07)
[2022-07-24] MEDS: LIDOCAINE PATCH 5% TOP SCH (09:07)
[2022-07-24] MEDS: guaiFENesin 600 MG TABLET PO SCH (09:07)
[2022-07-24] MEDS: CALCIUM CARB (OYSTER SHELL) 500 MG TABLET PO SCH (09:08)
[2022-07-24] MEDS: CHOLECALCIFEROL 400 UNIT TABLET PO SCH (09:08)
[2022-07-24] MEDS: AMIODARONE 200 MG TABLET PO SCH (09:08)
[2022-07-24] MEDS: MULTIVITAMIN TABLET PO SCH (09:08)
[2022-07-24] MEDS: METOPROLOL SUCCINATE 50 MG TABLET PO SCH (09:08)
[2022-07-24] MEDS: INSULIN LISPRO 300 UNIT/3 ML PEN SUBQ SCH (09:09)
[2022-07-24] MEDS: APIXABAN 5 MG TABLET PO SCH (09:09)
[2022-07-24] MEDS: FLUTICASONE NASAL SPRAY NAS SCH (09:10)
[2022-07-24] MEDS: NYSTATIN POWDER 15 GM TOP SCH (09:10)
--- NOTE | 2022-07-24 10:49 | Discharge Plan ---
Discharge Plan Problem Reviewed?: Yes Disposition: Against Medical Advice Condition: Serious No Smoking: If you smoke, Please STOP! Call for help. Follow-up with: Yolanda Thacker ARNP [Primary Care Provider] -
--- NOTE | 2022-07-24 10:50 | DISCHARGE SUMMARY ---
Discharge Summary Admit Date: 07/19/22 Discharge Date: 07/24/22 Discharging Provider: Dr Esme Dockery Primary Care Provider: JO-ANN Thacker Condition at Discharge: Serious Discharge Disposition: Against Medical Advice - HPI History of Present Illness: This is a 57-year-old white female with history of obesity, diabetes on oral agents, systolic heart failure with a defibrillator and COPD. She was last admitted here about 1 year ago, was discharged home then with home oxygen to be set at 2 L at rest and 3 L with activity and also a home nebulizer and nebulized meds were ordered. The patient presents with a complaint of 1 day of severe shortness of breath, denied any chest pain or changes in meds. Work-up and treatment in the ED included giving her Decadron 20 mg IV x1, 3 nebulizer treatments and Lasix 60 mg IV, once her chest x-ray came back showing CHF. Patient had good urine output of 800 cc however was found to still have continued rales and expiratory whe ezes. Her O2 sat on room air was 87%. She told the ED provider that her oxygen now is "to be used as needed". She was put on supplemental oxygen with improvement, saturations are 92 to 96%. EKG was done that shows her chronic left bundle branch block. A troponin was done that was normal at 16. The ED provider and I discussed her case. The patient will be admitted for COPD exacerbation and CHF exacerbation. - HOSPITAL COURSE Hospital Course: (1) Acute respiratory failure with hypoxia This was felt to be from CHF exacerbation plus COPD exacerbation on top of using O2 chronically, not prn, as she reported initially, because her granddaughter Tushar, who is also her caregiver and a DIETITIAN TEACHING, per Tushar, said that the pt uses her O2 all the time, set at 2 L, but over the last 1 month it has needed to go up to 4 L. At admission, she needed O2 at 6L via n.c. This was able to be titrated down very slowly to 4L over several days. Then on 07/23, RT noted increased tachypnea and put her on Heated High Flow n.c., needing 45>> 38>> 25% O2. On the morning of 07/24/2022, the patient requested to be discharged AMA. She said the reason was because she was "scared to be in this hospital". When asked why, she said could not specify what made her scared. A (different) granddaughter was at the bedside that morning, had helped her get dressed, went to the lobby and got her a wheelchair on her own, and was calling the caregiver Tushar, who also added to the discussion. Either the patient or this granddaughter had removed her O2 per n.c. and an O2 sat was measured at 70% on room air. I ordered oxygen be put on. She was instructed that leaving in this condition, tachypneic and hypoxic was very dangerous, and could lead to heart attack, stroke or . The 2 granddaughters said that it was rude and mean that we were telling the patient she could if she left. They both said they would do whatever the pt wanted and supported their grandmother's decision to leave AMA. Tushar, on the phone, was heard instructing the other granddaughter at the bedside to "put her in the car", and "take her to [facility]". There was no Instrument Operator available in the hospital on this day, to intervene and speak with the 2 granddaughters or the patient. Despite repeating that leaving and traveling that far was not advised, was unsafe, and despite being offered to treat a panic attack, and give her continued treatment for her diagnoses, the patient signed an AMA form and was discharged against medical advice. (2) Acute bronchitis due to human metapneumovirus She tested positive for this by PCR method from her nasal swab. COVID was negative. RSV was negative. This was likely the cause of the COPD exacerbation. We treated her cough as in #3. (3) COPD exacerbation She has a history of extremely slow improvement when she gets a COPD exacerbation needing admission. Patient was put on IV steroids, suppl O2, DuoNeb treatments scheduled and prn Duonebs increased from from q4h to q2h (advised by RT), and Pulmicort nebulized. We also continued her other COPD meds Montelukast and gave scheduled Mucinex. She continued to have prolonged expiratory phase and fine wheezing during her whole stay. (4) Acute on chronic systolic heart failure Etiology did not appear to be from stopping meds, and her troponins ruled her out for RI as cause of CHF. Then we learned that the granddaughter Tushar brought her in extra liquids while here, so I suspect that her CHF exacerbation was caused by taking in excessive amounts of liquids orally. She was put on iv Lasix BID, and we continued her other cardiac medications. Weight was down only 2kg after admission, and she had neg fluid balance only the first 2 days. Her exam showed continued rales and rhonchi in all posterior lung mathews, during her whole stay. (5) Noncompliance with medications and management On 07/21 RT witnessed that the patient was drinking a Big Gulp after her 2 grand daughters visited her, thus they probably brought her the Big Gulp. The volume of that was not able to be charted in her I's and O's. On 07/22, RN reported to me that the granddaughter brought in iced tea because the pt called her and told her she had a dry mouth and wanted more liquids. RN instructed the granddaughter that the patient was on a daily fluid restriction. The granddaughter Tushar repl ied "I will let my grandma drink whatever she wants". I was called into the pt's room by that RN, while her 2 granddaughters were still in the room, and I discussed the reason that the patient was on a fluid restriction. The granddaughter said she was bringing in fluids because the pt requested that and planned on letting the pt have extra liquids. I repeated why she needed to be on a fluid restriction. Tushar then asked if a wet sponge to moisten mouth was OK, and I agreed, and also advised a low-sugar lozenge be used. Sauravughter then asked if she could give her potato chips that she also brought in, and I declined that and explained why there is also a salt restriction for the pt. We ordered an official nutrition consult for CHF teaching for the pt and her caregiver, the granddaughter, but the pt left AMA the next day before that was done. (6) Hyperkalemia She had K of 5.1 and 5.2, likely from her worsened prerenal azotemia. She was also on Spironolactone which retains potassium. We liberalized slightly her fluid restriction order, changed IV Lasix to oral, and did not give Spironolactone for a day. On the day of leaving AMA, her K was 4.8. (7) Prerenal azotemia Her BUN/creatinine ratio increased slightly daily after she had been put on IV diuretics. We liberalized her fluid restriction order, changed IV Lasix to oral, and did not give Spironolactone for a day. On the day of leaving AMA, her BUN/creat were 34/0.9. (8) Diabetes mellitus type 2 in obese Patient repeatedly claimed she does not have diabetes. She says that ever since she needed IV steroids, many years ago, that is what made her diabetic. Her BMI is 43. Her glu became elevated >200 after starting the iv steroids. A1c came back at 8, last year was 7.7. Here we ordered a diabetic diet, hypoglycemia protocol, fingerstick checks, sliding scale insulin coverage and resumed then increased her glipizide ER from 5 mg daily to 10 mg daily. (9) Chronic pain The patient had pain in the chest from coughing and in the upper back and neck, which is her chronic pain. She said that [place] helps this pain. She was ordered to get a Lidocaine patch and the patient said this did help her pain. - ALLERGIES Allergies/Adverse Reactions: Allergies Allergy/AdvReac Type Severity Reaction Status Date / Time codeine [Codeine] Allergy Severe Swelling/Hi Verified 07/19/22 08:47 ves erythromycin base Allergy Severe Anaphylaxis Verified 07/19/22 08:47 [Erythromycin Base] gabapentin Allergy Severe Anaphylaxis Verified 07/19/22 08:47 Latex, Natural Rubber Allergy Severe Blisters Verified 07/19/22 08:47 pamabrom [From Midol] Allergy Severe Respiratory Verified 07/19/22 08:47 pyrilamine maleate * Allergy Severe Respiratory Verified 07/19/22 08:47 [From Midol] shellfish derived Allergy Severe Anaphylaxis Verified 07/19/22 08:47 venom-honey bee Allergy Severe Anaphylaxis Verified 07/19/22 08:47 [bee venom (honey bee)] chlorhexidine Allergy Intermediate Rash Verified 07/19/22 08:47 morphine Allergy Respiratory Verified 07/19/22 08:47 ondansetron Allergy Respiratory Verified 07/19/22 08:47 piperacillin [From Zosyn] AdvReac Rash Verified 07/19/22 08:47 tazobactam [From Zosyn] AdvReac Rash Verified 07/19/22 08:47 - MEDICATIONS Home Medications: Ambulatory Orders Medication Instructions Recorded Confirmed Furosemide 40 mg PO BIDDIURETIC 09/07/20 07/19/22 Apixaban [Eliquis] 5 mg PO BID 10/24/20 07/19/22 Albuterol Sulfate [Proair Hfa 2 puffs INH Q4H PRN #1 inh 10/29/20 07/19/22 Inhaler] Amiodarone [Pacerone] 100 mg PO DAILY 02/04/21 07/19/22 Nitroglycerin [Nitrostat] 0.4 mg PO Q5MIN PRN 03/16/21 07/19/22 EPINEPHrine [Epinephrine] 0.3 mg IM PRN PRN 12/11/21 07/19/22 Glipizide [Glipizide ER] 5 mg PO DAILY 12/11/21 07/20/22 Spironolactone [Aldactone] 25 mg PO DAILY 12/11/21 07/19/22 Cetirizine [ZyrTEC] 10 mg PO DAILY PRN 02/08/22 07/19/22 Fluticasone [Flonase] 2 sprays CLARISA DAILY 02/08/22 07/19/22 Montelukast [Singulair] 10 mg PO QPM PRN 02/08/22 07/19/22 Albuterol 2.5 mg INH RTQ4H PRN #30 ea 02/19/22 07/19/22 Budesonide [Pulmicort] 0.5 mg INH BID #60 ea 02/19/22 07/19/22 Metoprolol Succinate [Toprol Xl] 25 mg PO BID #30 tab 02/19/22 07/19/22 Multivitamin [Theragran] 1 tab PO DAILYWM tab 02/19/22 07/19/22 guaiFENesin [Mucinex] 600 mg PO BID PRN #10 tab 02/19/22 07/19/22 Loperamide HCl [Imodium A-D] 2 mg PO Q6H PRN #12 tablet 07/13/22 07/19/22 Promethazine [Phenergan] 25 mg PO Q6H PRN #15 tab 07/13/22 07/19/22 Ascorbic Acid [Vitamin C] 1,000 mg PO DAILY 07/20/22 07/20/22 Calcium Carbonate/Vitamin D3 1 each PO DAILY 07/20/22 07/20/22 [Calcium 600-Vit D3 800 Tablet] lisinopriL [Zestril] 5 mg PO DAILY 07/20/22 07/20/22 predniSONE [Deltasone] 20 mg PO BID 07/20/22 07/20/22 - PHYSICAL EXAM AT DISCHARGE General Appearance: positive: Alert, Mild distress (from anxiety and tachypnea), Other (Cushingoid, female, appears much older than her stated age.) Eyes Bilateral: positive: Normal inspection, EOMI ENT: positive: No signs of dehydration, Other (Cyanotic lower lip) Neck: positive: Nml inspection Respiratory: positive: Other (Tachypneic, scattered rhonchi) Cardiovascular: positive: Other (Heart sounds not audible because of her pulmonary rhonchi) Abdomen: positive: Non-tender, Other (Obese with a pannus) Skin: positive: Warm, Dry Extremities: positive: Non-tender, No pedal edema Neurologic/Psychiatric: positive: Oriented x3, Motor nml, Sensation nml - LABS Result Diagrams: 07/24/22 04:53 07/24/22 04:53 - DIAGNOSTIC IMAGING Diagnostic Imaging Results: Final report reviewed - TIME SPENT Time Spent in Discharge (Minutes): 45
== END 2022-07-24 10:49 | disposition left against medical advice (07) | DRG 189 ==
LOC: ED 08:40 → MS2 16:32
PROVIDERS: ADMIT Internal Medicine; ATTEND Internal Medicine
DX: J96.01 Acute respiratory failure with hypoxia (principal); I50.23 Acute on chronic systolic (congestive) heart failure; I50.9 Heart failure, unspecified; Z68.41 Body mass index [BMI] 40.0-44.9, adult; J43.9 Emphysema, unspecified; I11.0 Hypertensive heart disease with heart failure; Z20.822 Contact with and (suspected) exposure to COVID-19; E66.9 Obesity, unspecified; J20.8 Acute bronchitis due to other specified organisms; F17.200 Nicotine dependence, unspecified, uncomplicated; E87.5 Hyperkalemia; R79.89 Other specified abnormal findings of blood chemistry; E11.9 Type 2 diabetes mellitus without complications; G89.29 Other chronic pain; M54.9 Dorsalgia, unspecified; M54.2 Cervicalgia; I48.91 Unspecified atrial fibrillation; F41.9 Anxiety disorder, unspecified; E78.00 Pure hypercholesterolemia, unspecified; I25.10 Atherosclerotic heart disease of native coronary artery without angina pectoris; Z53.29 Procedure and treatment not carried out because of patient's decision for other reasons; Z79.01 Long term (current) use of anticoagulants; Z99.81 Dependence on supplemental oxygen; Z91.118 Patient's noncompliance with dietary regimen for other reason; Z91 Personal risk factors, not elsewhere classified; Z79.84 Long term (current) use of oral hypoglycemic drugs; Z95.810 Presence of automatic (implantable) cardiac defibrillator; I25.2 Old myocardial infarction; Z87.891 Personal history of nicotine dependence
CPT/HCPCS: 36415; 71045; 80048; 80053; 83036; 83690; 83735; 83880; 84443; 84484; 85025; 85379; 87633; 93005; 94640; 96374; 96375; 99285; A9270; J1815; J2060; J7626; Q0169; 82803

== ENCOUNTER 2022-08-16 16:52 | Outpatient (CLI) | payer MEDICARE, MEDICAID ==
[2022-08-16 17:18] LABS: BASOPHILS % (AUTO) 0.4 %; EOSINOPHILS # (AUTO) 0.2 10^3/uL (0.0-0.7); EOSINOPHILS % (AUTO) 3.1 %; HCT - HEMATOCRIT 42.4 % (37.0-47.0); HGB - HEMOGLOBIN 13.9 g/dL (12.0-16.0); LYMPHOCYTES # (AUTO) 2.1 10^3/uL (1.5-3.5); LYMPHOCYTES % (AUTO) 27.9 %; MEAN CORPUSCULAR HEMOGLOBIN 31.5 pg (27.0-31.0); MEAN CORPUSCULAR HGB CONC 32.8 g/dL (32.0-36.0); MEAN CORPUSCULAR VOLUME 96.1 fL (81.0-99.0); MEAN PLATELET VOLUME 10.2 fL (7.9-10.8); MONOCYTES # (AUTO) 0.6 10^3/uL (0.0-1.0); MONOCYTES % (AUTO) 8.3 %; NEUTROPHILS # (AUTO) 4.4 10^3/uL (1.5-6.6); NEUTROPHILS % (AUTO) 59.9 %; PLT - PLATELET COUNT 242 10^3/uL (130-450); RED BLOOD COUNT 4.41 10^6/uL (4.20-5.40); WHITE BLOOD COUNT 7.4 x10^3/uL (4.8-10.8)
[2022-08-16 17:56] LABS: ALBUMIN 3.5 g/dL (3.2-5.5); ALBUMIN/GLOBULIN RATIO 1.3 (1.0-2.2); BILIRUBIN,TOTAL 0.6 mg/dL (0.2-1.0); CALCIUM 9.5 mg/dL (8.5-10.3); CREATININE 1.3 mg/dL (0.4-1.0); POTASSIUM 3.2 mmol/L (3.5-5.0); TOTAL PROTEIN 6.3 g/dL (6.7-8.2)
[2022-08-16 18:11] LABS: THYROID STIMULATING HORMONE 2.52 uIU/mL (0.34-5.60)
[2022-08-16 21:10] LABS: ESTIMATED AVERAGE GLUCOSE 197 mg/dL (70-100); HEMOGLOBIN A1c% 8.5 % (4.27-6.07)
--- NOTE | 2022-08-17 10:09 | XRAY Report ---
PROCEDURE: Shoulder 3 View RT INDICATIONS: SHOULDER JOINT PAIN, RIGHT TECHNIQUE: 3 views of the shoulder were acquired. COMPARISON: None. FINDINGS: Bones: No fractures or dislocations. No suspicious bony lesions. Visualized ribs appear intact. A cromioclavicular joint space narrowing and associated osteophytosis. Soft tissues: No suspicious soft tissue calcifications. IMPRESSION: Moderate acromioclavicular osteoarthritis. Reviewed by: Marlon Gonzalez on 08/17/2022 8:52 AM PDT Approved by: Marlon Gonzalez on 08/17/2022 8:52 AM PDT Station ID: [id number]
--- NOTE | 2022-08-17 10:09 | XRAY Report ---
PROCEDURE: Cervical Spine 2 View INDICATIONS: NECK PAIN, CHRONIC TECHNIQUE: 4 view(s) of the cervical spine were acquired. COMPARISON: None. FINDINGS: Bones: No fractures or dislocations to the C5 level. The lateral masses of C1 appear intact on the odontoid view. No suspicious bony lesions. Mild, multilevel disc height loss and facet arthrosis. Soft tissues: No prevertebral soft tissue swelling. IMPRESSION: No acute bony abnormality. Mild, multilevel degenerative disc disease and facet arthrosis. Reviewed by: Marlon Gonzalez on 08/17/2022 8:51 AM PDT Approved by: Marlon Gonzalez on 08/17/2022 8:51 AM PDT Station ID: [id number]
== END 2022-08-16 16:53 | disposition home or self-care (01) ==
LOC: DI 16:52
PROVIDERS: ATTEND Physician Assistant Medical
DX: M19.011 Primary osteoarthritis, right shoulder (principal); M47.812 Spondylosis without myelopathy or radiculopathy, cervical region; M50.30 Other cervical disc degeneration, unspecified cervical region; R53.83 Other fatigue; I48.91 Unspecified atrial fibrillation; E11.9 Type 2 diabetes mellitus without complications; Z51.81 Encounter for therapeutic drug level monitoring
CPT/HCPCS: 36415; 80053; 83036; 84443; 85025

== ENCOUNTER 2022-09-06 15:55 | Outpatient (CLI) | payer MEDICARE, MEDICAID | END 2022-09-06 15:56 | disposition short-term general hospital (02) | LOC: EMS 15:55 | DX: R06.02 Shortness of breath (principal); R06.2 Wheezing; R53.83 Other fatigue; I48.91 Unspecified atrial fibrillation; Z95.810 Presence of automatic (implantable) cardiac defibrillator | CPT/HCPCS: A0425; A0429 ==

== ENCOUNTER 2022-09-29 13:34 | Outpatient (CLI) | payer MEDICARE, MEDICAID | END 2022-09-29 13:35 | disposition critical access hospital (66) | LOC: EMS 13:34 | DX: M25.571 Pain in right ankle and joints of right foot (principal); W18.39XA Other fall on same level, initial encounter; X50.1XXA Overexertion from prolonged static or awkward postures, initial encounter; Y93.01 Activity, walking, marching and hiking; Y92.007 Garden or yard of unspecified non-institutional (private) residence as the place of occurrence of the external cause | CPT/HCPCS: A0425; A0429 ==

== ENCOUNTER 2022-09-29 14:03 | Emergency (ER) | payer MEDICARE, MEDICAID ==
--- NOTE | 2022-09-29 14:07 | ED Physician Documentation ---
PD HPI LOWER EXT INJURY - Stated complaint Stated Complaint: R ANKLE INJURY - Chief complaint Chief Complaint: Ext Problem - History obtained from History obtained from: Patient - History of Present Illness PD HPI LOW EXT INJURY LOCATION: Right, Ankle Type of injury: Twist (stepped into uneven ground/small hole, with inversion injury and pain of ankle. it did cause her to fall and struck side of face without deformity.) Timing - onset: How many hours ago (1-2), Today Timing - duration: Hours Timing - details: Abrupt onset, Still present in ED Worsened by: Moving, Palpating Associated symptoms: Swelling. No: Weakness, Numbness Similar symptoms before: Has not had sx before Review of Systems Skin: denies: Abrasion (s), Laceration (s) Neurologic: denies: Altered mental status, Headache Endocrine: reports: Easy bruising / bleeding PD PAST MEDICAL HISTORY - Past Medical History Cardiovascular: Congestive heart failure, Hypertension, High cholesterol, Coronary artery disease, [place], Atrial fibrillation, Murmur, Arrhythmia Respiratory: Asthma, COPD, Emphysema, Pneumonia, Shortness of breath, Other Neuro: Headaches, Tremors Endocrine/Autoimmune: None GI: GERD LEADERSHIP PROGRAM INTERN: Ectopic , Other : None, Frequency HEENT: Chronic vision loss, Chronic sinusitis, Chronic hearing loss Psych: Depression, Anxiety, Claustrophobia Musculoskeletal: Osteoarthritis, Fatigue, Chronic back pain Derm: None - Past Surgical History Past Surgical History: Yes General: Cholecystectomy, EGD Ortho: Knee replacement /LEADERSHIP PROGRAM INTERN: Hysterectomy, LEEP (Cervical surgery) Cardiovascular: Cardiac catheterization HEENT: Rhinoplasty - Present Medications Home Medications: Ambulatory Orders Medication Instructions Recorded Confirmed Furosemide 40 mg PO BIDDIURETIC 09/07/20 07/19/22 Apixaban [Eliquis] 5 mg PO BID 10/24/20 07/19/22 Albuterol Sulfate [Proair Hfa 2 puffs INH Q4H PRN #1 inh 10/29/20 07/19/22 Inhaler] Amiodarone [Pacerone] 100 mg PO DAILY 02/04/21 07/19/22 Nitroglycerin [Nitrostat] 0.4 mg PO Q5MIN PRN 03/16/21 07/19/22 EPINEPHrine [Epinephrine] 0.3 mg IM PRN PRN 12/11/21 07/19/22 Glipizide [Glipizide ER] 5 mg PO DAILY 12/11/21 07/20/22 Spironolactone [Aldactone] 25 mg PO DAILY 12/11/21 07/19/22 Cetirizine [ZyrTEC] 10 mg PO DAILY PRN 02/08/22 07/19/22 Fluticasone [Flonase] 2 sprays CLARISA DAILY 02/08/22 07/19/22 Montelukast [Singulair] 10 mg PO QPM PRN 02/08/22 07/19/22 Albuterol 2.5 mg INH RTQ4H PRN #30 ea 02/19/22 07/19/22 Budesonide [Pulmicort] 0.5 mg INH BID #60 ea 02/19/22 07/19/22 Metoprolol Succinate [Toprol Xl] 25 mg PO BID #30 tab 02/19/22 07/19/22 Multivitamin [Theragran] 1 tab PO DAILYWM tab 02/19/22 07/19/22 guaiFENesin [Mucinex] 600 mg PO BID PRN #10 tab 02/19/22 07/19/22 Loperamide HCl [Imodium A-D] 2 mg PO Q6H PRN #12 tablet 07/13/22 07/19/22 Promethazine [Phenergan] 25 mg PO Q6H PRN #15 tab 07/13/22 07/19/22 Ascorbic Acid [Vitamin C] 1,000 mg PO DAILY 07/20/22 07/20/22 Calcium Carbonate/Vitamin D3 1 each PO DAILY 07/20/22 07/20/22 [Calcium 600-Vit D3 800 Tablet] lisinopriL [Zestril] 5 mg PO DAILY 07/20/22 07/20/22 predniSONE [Deltasone] 20 mg PO BID 07/20/22 07/20/22 HYDROcod/ACETAM 5/325 [[place] 5/325] 1 ea PO Q6H PRN #18 tablet 09/29/22 - Allergies Allergies/Adverse Reactions: Allergies Allergy/AdvReac Type Severity Reaction Status Date / Time codeine [Codeine] Allergy Severe Swelling/Hi Verified 09/29/22 14:06 ves erythromycin base Allergy Severe Anaphylaxis Verified 09/29/22 14:06 [Erythromycin Base] gabapentin Allergy Severe Anaphylaxis Verified 09/29/22 14:06 Latex, Natural Rubber Allergy Severe Blisters Verified 09/29/22 14:06 pamabrom [From Midol] Allergy Severe Respiratory Verified 09/29/22 14:06 pyrilamine maleate * Allergy Severe Respiratory Verified 09/29/22 14:06 [From Midol] shellfish derived Allergy Severe Anaphylaxis Verified 09/29/22 14:06 venom-honey bee Allergy Severe Anaphylaxis Verified 09/29/22 14:06 [bee venom (honey bee)] chlorhexidine Allergy Intermediate Rash Verified 09/29/22 14:06 morphine Allergy Respiratory Verified 09/29/22 14:06 ondansetron Allergy Respiratory Verified 07/19/22 08:47 piperacillin [From Zosyn] AdvReac Rash Verified 07/19/22 08:47 tazobactam [From Zosyn] AdvReac Rash Verified 07/19/22 08:47 - Social History Does the pt smoke?: Yes Smoking Status: Current every day smoker Does the pt drink ETOH?: No Does the pt have substance abuse?: No - Immunizations Immunizations are current?: No Immunizations: Other immun not current - POLST Patient has POLST: No POLST Status: Full Code PD ED PE NORMAL - Vitals Vital signs reviewed: Yes - General General: Alert and oriented X 3, No acute distress, Well developed/nourished - Neck Neck: Supple, no meningeal sign, No bony TTP - Derm Derm: Normal color, Warm and dry - Extremities Extremities: Other (right ankle tender at distal fibula. Some swelling. No gross deformity. Pain but no laxity on inversion stress. Achilles not tender. ) - Neuro Neuro: Alert and oriented X 3, No motor deficit, No sensory deficit, Normal speech Results - Vitals Vitals: Vital Signs - 24 hr 09/29/22 09/29/22 09/29/22 14:02 15:19 15:27 Temperature 36.7 C Heart Rate 88 82 Respiratory 20 20 Rate Blood Pressure 102/82 H 100/50 L 137/44 H O2 Saturation 94 90 L Oxygen O2 Source [With Activity] Room air O2 Source Mechanical ventilator - Rads (name of study) head CT Relevant Findings:: Prelim report reviewed, EMP independent interpretation of test (no ICH.), See rad report right ankle Relevant Findings:: Prelim report reviewed, EMP independent interpretation of test (distal fibular fracture nondisplaced, and below the angle of the mortis. ), See rad report PD Medical Decision Making - ED course Complexity details: reviewed old records (KATHLEEN with 2 scripts for ppopioids in July 2022. Irregular meds from ER. No large amounts. ), reviewed results (distal fibular fracture nondisplaced. Head CT without ICH. ), re-evaluated patient (she is having pain at [facility]. Not on any pain contract at this time and has gotten [facility] pain med scripts.), considered differential (concern for fracture vs sprain. Can get xray. She did fall, on DOAC regularly, and some protocol is for CT head.), d/w patient, d/w family Departure - Departure Disposition: Home, Self Care Clinical Impression: Fracture of distal end of fibula, Accidental fall, Anticoagulant long-term use Condition: Stable Record reviewed to determine appropriate education?: Yes Instructions: ED Fx Ankle Lateral Malleolus Follow-Up: Rohini Ceron PA-C [Primary Care Provider] - [facility] [Provider Group] Prescriptions: HYDROcod/ACETAM 5/325 [[place] 5/325] 1 ea PO Q6H PRN #18 tablet PRN Reason: Pain Comments: Your head CT scan is good without any signs of bleeding. Your ankle shows a nondisplaced fracture at the very end of the fibula which is on the outside of the ankle. Remains to be supported with the walking boot so it does not pull or tug on it. You are not really a good candidate for crutches so the walking boot and diminished weightbearing is about the best at the moment. You could try to see if the senior center such as like a knee scooter that may help get around a little bit. These can be a little difficult to maneuver as well. Elevate and rest and ice often to reduce swelling. Tylenol every 4-6 hours if needed for pain or hydrocodone every 6 hours if needed for worse pain in the darren rt-term. I sent a prescription for this to [place]. Follow-up with orthopedics in about 1-1/2 weeks, call for an appointment. The type of fracture you have is able to heal and is stable with weightbearing though it would be more ideal for comfort if you are able to be off of it. My narcotic instructions Discharge Date/Time: 09/29/22 15:29
--- NOTE | 2022-09-29 14:24 | XRAY Report ---
PROCEDURE: Ankle 3 View RT INDICATIONS: pain/tenderness/swelling R ANKLE TECHNIQUE: views of the ankle were acquired. COMPARISON: None. FINDINGS: Bones: Ankle fracture, as follows: Lateral malleolus / distal fibula: Infrasyndesmotic ([place] A). Medial malleolus: No displaced fracture. Posterior malleolus: No displaced fracture. Medial clear space: Less than 4 mm, not widened. Lateral clear space: Less than 5 mm, within normal limits. Soft tissues: Tibiotalar effusion present. Ankle swelling present. IMPRESSION: Hammonds A ankle fracture. No radiographic features of an unstable fracture. Reviewed by: Marlon Gonzalez on 09/29/2022 2:23 PM PDT Approved by: Marlon Gonzalez on 09/29/2022 2:23 PM PDT Station ID: [id number]
[2022-09-29] MEDS ORDERED: HYDROmorphone 1 MG/ML CARPUJECT IM STA (14:25)
--- OUTSIDE RECORDS SUMMARY | 2022-09-29 14:47 | EXTERNAL MEDICAL SUMMARY RPT | Continuity of Care Document ---
Author Name Unknown Address [address] [place] [address] Phone Organization [facility] Address [address] [place] [address] Phone Care Team Providers Care Executive Vice President And Chief Operating Officer Name Role Phone Unavailable Unavailable Unavailable Rohini Ceron Unavailable Unavailable Allergies and Intolerances date description facility type (no date) Fish Containing Products [facility] (unknown) (no date) acetaminophen [facility] (unknown) (no date) bee pollen [facility] (unknown) (no date) codeine [facility] (unknown) (no date) doxycycline [facility] (unknown) (no date) erythromycin base [facility] (unknow n) (no date) iodine [facility] (unknown) (no date) latex [facility] (unknown) (no date) pamabrom [facility] (unknown) (no date) shellfish derived [facility] (unknow n) Medications date description facility 2022-07-28 00:00 Oxycodone [facility] 2022-09-06 00:00 Dextromethorphan-Guaifenesin Is [facility] 2022-07-25 00:00 Apixaban [facility] 2022-09-06 00:[address] [facility] 2022-09-06 00:00 Methocarbamol [facility] 2022-07-25 00:00 Montelukast [facility] 2022-07-25 00:[address] [facility] 2022-07-25 00:00 Lisinopril [facility] 2022-07-28 00:00 Prednisone [facility] 2022-09-09 00:00 Prednisone [facility] 2022-07-25 00:00 Prednisone [facility] 2022-07-28 00:00 Prednisone [facility] 2022-07-25 00:00 Spironolactone [facility] 2022-07-25 00:00 Furosemide [facility] 2022-07-28 00:00 Glipizide [facility] 2022-07-25 00:00 Amiodarone [facility] 2022-07-25 00:00 Hydrocodone-Acetaminophen [facility] 2022-07-25 00:00 Metoprolol Succinate [facility] 2022-09-06 00:00 Metoprolol Succinate [facility] 2022-07-25 00:00 Budesonide [facility] 2022-09-06 00:00 [facility] Problems date description facility 2022-07-24 00:00 Acute metabolic encephalopathy [facility] 2022-07-24 00:00 Acute on chronic congestive hea rt failure [facility] 2022-07-24 00:00 Congestive heart failure [facility] 2022-07-24 00:00 Human metapneumovirus (hMPV) pn eumonia [facility] 2022-07-24 00:00 Acute exacerbation o f chronic obstructive airways disease [facility] 2022-07-24 00:00 Acute respiratory failure with hypoxemia [facility] 2022-07-24 00:00 Hypoxia [facility] 2022-07-25 08:13 Metabolic encephalopathy [facility] 2022-07-25 08:13 Heart failure, unspecified [facility] 2022-07-25 08:13 Human metapneumovirus pneumonia [facility] 2022-07-25 08:13 Chronic obstructive pulmonary disease with (acute) exacerbat [facility] 2022-07-25 08:13 Acute respiratory failure with hypoxia [facility] 2022-07-25 08:13 Acute and chronic respiratory f ailure with hypoxia [facility] 2022-07-25 09:07 Metabolic encephalopathy [facility] 2022-07-25 09:07 Heart failure, unspecified [facility] 2022-07-25 09:07 Human metapneumovirus pneumonia [facility] 2022-07-25 09:07 Chronic obstructive pulmonary disease with (acute) exacerbat [facility] 2022-07-25 09:07 Acute respiratory failure with hypoxia [facility] 2022-07-25 09:07 Acute and chronic respiratory f ailure with hypoxia [facility] 2022-07-25 15:19 Metabolic encephalopathy [facility] 2022-07-25 15:19 Heart failure, unspecified [facility] 2022-07-25 15:19 Human metapneumovirus pneumonia [facility] 2022-07-25 15:19 Chronic obstructive pulmonary disease with (acute) exacerbat [facility] 2022-07-25 15:19 Acute respiratory failure with hypoxia [facility] 2022-07-25 15:19 Acute and chronic respiratory f ailure with hypoxia [facility] 2022-07-26 00:36 Metabolic encephalopathy [facility] 2022-07-26 00:36 Heart failure, unspecified [facility] 2022-07-26 00:36 Human metapneumovirus pneumonia [facility] 2022-07-26 00:36 [facility] Acute respiratory failure with hypoxia [facility] 2022-07-26 00:36 Acute and chronic respiratory f ailure with [facility] 2022-07-26 09:03 Metabolic encephalopathy [facility] 2022-07-26 09:03 Heart failure, unspecified [facility] 2022-07-26 09:03 Human metapneumovirus pneumonia [facility] 2022-07-26 09:03 [facility]:03 Acute respiratory failure with [facility] 2022-07-26 09:03 Acute and chronic respiratory f ailure with [facility] 2022-07-26 09:05 Metabolic encephalopathy [facility] 2022-07-26 09:05 Heart failure, unspecified [facility] 2022-07-26 09:05 Human metapneumovirus pneumonia [facility] 2022-07-26 09:05 [facility]:05 Acute respiratory failure with [facility] 2022-07-26 09:05 Acute and chronic respiratory f ailure with [facility] 2022-07-27 08:15 Metabolic encephalopathy [facility] 2022-07-27 08:15 Heart failure, unspecified [facility] 2022-07-27 08:15 Human metapneumovirus pneumonia [facility] 2022-07-27 08:15 Chronic obstructive pulmonary disease with (acute) exacerbat [facility] 2022-07-27 08:15 Acute respiratory failure with [facility] 2022-07-27 08:15 Acute and chronic respiratory f ailure with [facility] 2022-07-27 13:27 Metabolic encephalopathy [facility] 2022-07-27 13:27 Heart failure, unspecified [facility] 2022-07-27 13:27 Human metapneumovirus pneumonia [facility] 2022-07-27 13:27 Chronic obstructive pulmonary disease with (acute) exacerbat [facility] 2022-07-27 13:27 Acute respiratory failure with hypoxia [facility] 2022-07-27 13:27 Acute and chronic respiratory f ailure with [facility] 2022-07-27 13:32 Metabolic encephalopathy [facility] 2022-07-27 13:32 Heart failure, unspecified [facility] 2022-07-27 13:32 Human metapneumovirus pneumonia [facility] 2022-07-27 13:32 Chronic obstructive pulmonary disease with (acute) exacerbat [facility] 2022-07-27 13:32 Acute respiratory failure with [facility] 2022-07-27 13:32 Acute and chronic respiratory f ailure with [facility] 2022-07-27 15:47 Metabolic encephalopathy [facility] 2022-07-27 15:47 Heart failure, unspecified [facility] 2022-07-27 15:47 Human metapneumovirus pneumonia [facility] 2022-07-27 15:47 [facility] 15:47 Acute respiratory failure with [facility] 2022-07-27 15:47 Acute and chronic respiratory f ailure with [facility] 2022-07-28 08:38 Metabolic encephalopathy [facility] 2022-07-28 08:38 Heart failure, unspecified [facility] 2022-07-28 08:38 Human metapneumovirus pneumonia [facility] 2022-07-28 08:38 [facility] 08:38 Acute respiratory failure with [facility] 2022-07-28 08:38 Acute and chronic respiratory f ailure with [facility] 2022-07-28 10:43 Metabolic encephalopathy [facility] 2022-07-28 10:43 Heart failure, unspecified [facility] 2022-07-28 10:43 Human metapneumovirus pneumonia [facility] 2022-07-28 10:43 [facility] 10:43 Acute respiratory failure with [facility] 2022-07-28 10:43 Acute and chronic respiratory f ailure with [facility] 2022-07-28 10:52 Metabolic encephalopathy [facility] 2022-07-28 10:52 Heart failure, unspecified [facility] 2022-07-28 10:52 Human metapneumovirus pneumonia [facility] 2022-07-28 10:52 Chronic obstructive pulmonary disease with (acute) exacerbat [facility] 2022-07-28 10:52 Acute respiratory failure with hypoxia [facility] 2022-07-28 10:52 Acute and chronic respiratory f ailure with [facility] 2022-07-28 11:06 Metabolic encephalopathy [facility] 2022-07-28 11:06 Heart failure, unspecified [facility] 2022-07-28 11:06 Human metapneumovirus pneumonia [facility] 2022-07-28 11:06 [facility] 11:06 Acute respiratory failure with [facility] 2022-07-28 11:06 Acute and chronic respiratory f ailure with [facility] 2022-07-28 11:24 Metabolic encephalopathy [facility] 2022-07-28 11:24 Heart failure, unspecified [facility] 2022-07-28 11:24 Human metapneumovirus pneumonia [facility] 2022-07-28 11:24 [facility] 11:24 Acute respiratory failure with [facility] 2022-07-28 11:24 Acute and chronic respiratory f ailure with [facility] 2022-07-28 11:54 Metabolic encephalopathy [facility] 2022-07-28 11:54 Heart failure, unspecified [facility] 2022-07-28 11:54 Human metapneumovirus pneumonia [facility] 2022-07-28 11:54 [facility] 11:54 Acute respiratory failure with [facility] 2022-07-28 11:54 Acute and chronic respiratory f ailure with [facility] 2022-07-29 08:23 Metabolic encephalopathy [facility] 2022-07-29 08:23 Heart failure, unspecified [facility] 2022-07-29 08:23 Human metapneumovirus pneumonia [facility] 2022-07-29 08:23 [facility] 08:23 Acute respiratory failure with [facility] 2022-07-29 08:23 Acute and chronic respiratory f ailure with hypoxia [facility] 2022-09-06 00:00 Acute congestive heart failure [facility] 2022-09-09 09:28 Acute on chronic systolic (daniel estive) heart failure [facility] 2022-09-09 09:57 Acute on chronic systolic (daniel estive) heart failure [facility] 2022-09-09 10:44 Acute on chronic systolic (daniel estive) heart failure [facility] 2022-09-09 13:52 Acute on chronic systolic (daniel estive) heart failure [facility] 2022-09-11 09:34 Acute on chronic systolic (daniel estive) heart failure [facility] Procedures date description facility 2022-07-24 00:00 X-ray of chest, single view [facility] 2022-09-06 00:00 X-ray of chest, single view [facility] 2022-07-24 00:00 Complete Doppler echocardiograp hy [facility] 2022-09-06 00:00 Limited echocardiography [facility] 2022-07-24 00:00 assistance with resp iratory ventilation, less than 24 consecutive hours, continuous positive airway pressure [facility] Results/Labs test date author facility value unit interpretation Result panel 1 (unknown) (no date) (unknown) [facility] (no value) (units unknown) (unknown) Result panel 2 (unknown) (no date) (unknown) [facility] (no value) (units unknown) (unknown) Result panel 3 (unknown) (no date) (unknown) [facility] (no value) (units unknown) (unknown) Result panel 4 (unknown) (no date) (unknown) [facility] (no value) (units unknown) (unknown) Result panel 5 (unknown) (no date) (unknown) [facility] (no value) (units unknown) (unknown) Result panel 6 (unknown) (no date) (unknown) [facility] (no value) (units unknown) (unknown) Result panel 7 (unknown) (no date) (unknown) [facility] (no value) (units unknown) (unknown) Result panel 8 (unknown) (no date) (unknown) [facility] (no value) (units unknown) (unknown) Result panel 9 (unknown) (no date) (unknown) [facility] (no value) (units unknown) (unknown) Result panel 10 (unknown) (no date) (unknown) [facility] (no value) (units unknown) (unknown) Result panel 11 (unknown) (no date) (unknown) [facility] (no value) (units unknown) (unknown) Result panel 12 (unknown) (no date) (unknown) [facility] (no value) (units unknown) (unknown) Result panel 13 (unknown) (no date) (unknown) [facility] (no value) (units unknown) (unknown) Result panel 14 (unknown) (no date) (unknown) [facility] (no value) (units unknown) (unknown) Result panel 15 (unknown) (no date) (unknown) [facility] (no value) (units unknown) (unknown) Result panel 16 (unknown) (no date) (unknown) [facility] (no value) (units unknown) (unknown) Result panel 17 (unknown) (no date) (unknown) [facility] (no value) (units unknown) (unknown) Result panel 18 (unknown) (no date) (unknown) [facility] (no value) (units unknown) (unknown) Result panel 19 (unknown) (no date) (unknown) [facility] (no value) (units unknown) (unknown) Result panel 20 (unknown) (no date) (unknown) [facility] (no value) (units unknown) (unknown) Result panel 21 (unknown) (no date) (unknown) [facility] (no value) (units unknown) (unknown) Result panel 22 (unknown) (no date) (unknown) [facility] (no value) (units unknown) (unknown) Result panel 23 (unknown) (no date) (unknown) [facility] (no value) (units unknown) (unknown) Result panel 24 (unknown) (no date) (unknown) [facility] (no value) (units unknown) (unknown) Result panel 25 (unknown) (no date) (unknown) [facility] (no value) (units unknown) (unknown) Result panel 26 (unknown) (no date) (unknown) [facility] (no value) (units unknown) (unknown) Result panel 27 (unknown) (no date) (unknown) [facility] (no value) (units unknown) (unknown) Result panel 28 (unknown) (no date) (unknown) [facility] (no value) (units unknown) (unknown) Result panel 29 (unknown) (no date) (unknown) [facility] (no value) (units unknown) (unknown) Result panel 30 (unknown) (no date) (unknown) [facility] (no value) (units unknown) (unknown) Result panel 31 (unknown) (no date) (unknown) [facility] (no value) (units unknown) (unknown) Result panel 32 (unknown) (no date) (unknown) [facility] (no value) (units unknown) (unknown) Result panel 33 (unknown) (no date) (unknown) [facility] (no value) (units unknown) (unknown) Result panel 34 (unknown) (no date) (unknown) [facility] (no value) (units unknown) (unknown) Result panel 35 (unknown) (no date) (unknown) [facility] (no value) (units unknown) (unknown) Result panel 36 (unknown) (no date) (unknown) [facility] (no value) (units unknown) (unknown) Result panel 37 (unknown) (no date) (unknown) [facility] (no value) (units unknown) (unknown) Result panel 38 (unknown) (no date) (unknown) [facility] (no value) (units unknown) (unknown) Result panel 39 (unknown) (no date) (unknown) [facility] (no value) (units unknown) (unknown) Result panel 40 (unknown) (no date) (unknown) [facility] (no value) (units unknown) (unknown) Result panel 41 (unknown) (no date) (unknown) [facility] (no value) (units unknown) (unknown) Result panel 42 (unknown) (no date) (unknown) [facility] (no value) (units unknown) (unknown) Result panel 43 (unknown) (no date) (unknown) [facility] (no value) (units unknown) (unknown) Result panel 44 (unknown) (no date) (unknown) [facility] (no value) (units unknown) (unknown) Result panel 45 (unknown) (no date) (unknown) [facility] (no value) (units unknown) (unknown) Result panel 46 (unknown) (no date) (unknown) [facility] (no value) (units unknown) (unknown) Result panel 47 (unknown) (no date) (unknown) [facility] (no value) (units unknown) (unknown) Result panel 48 (unknown) (no date) (unknown) [facility] (no value) (units unknown) (unknown) Result panel 49 (unknown) (no date) (unknown) [facility] (no value) (units unknown) (unknown) Result panel 50 (unknown) (no date) (unknown) [facility] (no value) (units unknown) (unknown) Result panel 51 (unknown) (no date) (unknown) [facility] (no value) (units unknown) (unknown) Result panel 52 (unknown) (no date) (unknown) [facility] (no value) (units unknown) (unknown) Result panel 53 (unknown) (no date) (unknown) [facility] (no value) (units unknown) (unknown) Result panel 54 (unknown) (no date) (unknown) [facility] (no value) (units unknown) (unknown) Result panel 55 (unknown) (no date) (unknown) [facility] (no value) (units unknown) (unknown) Result panel 56 (unknown) (no date) (unknown) [facility] (no value) (units unknown) (unknown) Result panel 57 (unknown) (no date) (unknown) [facility] (no value) (units unknown) (unknown) Result panel 58 (unknown) (no date) (unknown) [facility] (no value) (units unknown) (unknown) Result panel 59 (unknown) (no date) (unknown) [facility] (no value) (units unknown) (unknown) Result panel 60 (unknown) (no date) (unknown) [facility] (no value) (units unknown) (unknown) Result panel 61 (unknown) (no date) (unknown) [facility] (no value) (units unknown) (unknown) Result panel 62 (unknown) (no date) (unknown) [facility] (no value) (units unknown) (unknown) Result panel 63 (unknown) (no date) (unknown) [facility] (no value) (units unknown) (unknown) Result panel 64 (unknown) (no date) (unknown) [facility] (no value) (units unknown) (unknown) Result panel 65 (unknown) (no date) (unknown) [facility] (no value) (units unknown) (unknown) Result panel 66 (unknown) (no date) (unknown) [facility] (no value) (units unknown) (unknown) Result panel 67 (unknown) (no date) (unknown) [facility] (no value) (units unknown) (unknown) Result panel 68 (unknown) (no date) (unknown) [facility] (no value) (units unknown) (unknown) Result panel 69 (unknown) (no date) (unknown) [facility] (no value) (units unknown) (unknown) Result panel 70 (unknown) (no date) (unknown) [facility] (no value) (units unknown) (unknown) Result panel 71 (unknown) (no date) (unknown) [facility] (no value) (units unknown) (unknown) Result panel 72 (unknown) (no date) (unknown) [facility] (no value) (units unknown) (unknown) Result panel 73 (unknown) (no date) (unknown) [facility] (no value) (units unknown) (unknown) Result panel 74 (unknown) (no date) (unknown) [facility] (no value) (units unknown) (unknown) Result panel 75 (unknown) (no date) (unknown) [facility] (no value) (units unknown) (unknown) Result panel 76 (unknown) (no date) (unknown) [facility] (no value) (units unknown) (unknown) Result panel 77 (unknown) (no date) (unknown) [facility] (no value) (units unknown) (unknown) Result panel 78 (unknown) (no date) (unknown) [facility] (no value) (units unknown) (unknown) Result panel 79 (unknown) (no date) (unknown) [facility] (no value) (units unknown) (unknown) Result panel 80 (unknown) (no date) (unknown) [facility] (no value) (units unknown) (unknown) Result panel 81 (unknown) (no date) (unknown) [facility] (no value) (units unknown) (unknown) Result panel 82 (unknown) (no date) (unknown) [facility] (no value) (units unknown) (unknown) Result panel 83 (unknown) (no date) (unknown) [facility] (no value) (units unknown) (unknown) Result panel 84 (unknown) (no date) (unknown) [facility] (no value) (units unknown) (unknown) Result panel 85 (unknown) (no date) (unknown) [facility] (no value) (units unknown) (unknown) Result panel 86 (unknown) (no date) (unknown) [facility] (no value) (units unknown) (unknown) Result panel 87 (unknown) (no date) (unknown) [facility] (no value) (units unknown) (unknown) Result panel 88 (unknown) (no date) (unknown) [facility] (no value) (units unknown) (unknown) Result panel 89 (unknown) (no date) (unknown) [facility] (no value) (units unknown) (unknown) Result panel 90 (unknown) (no date) (unknown) [facility] (no value) (units unknown) (unknown) Result panel 91 (unknown) (no date) (unknown) [facility] (no value) (units unknown) (unknown) Result panel 92 (unknown) (no date) (unknown) [facility] (no value) (units unknown) (unknown) Result panel 93 (unknown) (no date) (unknown) [facility] (no value) (units unknown) (unknown) Result panel 94 (unknown) (no date) (unknown) [facility] (no value) (units unknown) (unknown) Result panel 95 (unknown) (no date) (unknown) [facility] (no value) (units unknown) (unknown) Result panel 96 (unknown) (no date) (unknown) [facility] (no value) (units unknown) (unknown) Result panel 97 (unknown) (no date) (unknown) [facility] (no value) (units unknown) (unknown) Result panel 98 (unknown) (no date) (unknown) [facility] (no value) (units unknown) (unknown) Result panel 99 (unknown) (no date) (unknown) [facility] (no value) (units unknown) (unknown) Result panel 100 (unknown) (no date) (unknown) [facility] (no value) (units unknown) (unknown) Result panel 101 (unknown) (no date) (unknown) [facility] (no value) (units unknown) (unknown) Result panel 102 (unknown) (no date) (unknown) [facility] (no value) (units unknown) (unknown) Result panel 103 (unknown) (no date) (unknown) [facility] (no value) (units unknown) (unknown) Result panel 104 (unknown) (no date) (unknown) [facility] (no value) (units unknown) (unknown) Result panel 105 (unknown) (no date) (unknown) [facility] (no value) (units unknown) (unknown) Result panel 106 (unknown) (no date) (unknown) [facility] (no value) (units unknown) (unknown) Result panel 107 (unknown) (no date) (unknown) [facility] (no value) (units unknown) (unknown) Result panel 108 (unknown) (no date) (unknown) [facility] (no value) (units unknown) (unknown) Result panel 109 (unknown) (no date) (unknown) [facility] (no value) (units unknown) (unknown) Result panel 110 (unknown) (no date) (unknown) [facility] (no value) (units unknown) (unknown) Result panel 111 (unknown) (no date) (unknown) [facility] (no value) (units unknown) (unknown) Result panel 112 (unknown) (no date) (unknown) [facility] (no value) (units unknown) (unknown) Result panel 113 (unknown) (no date) (unknown) [facility] (no value) (units unknown) (unknown) Result panel 114 (unknown) (no date) (unknown) [facility] (no value) (units unknown) (unknown) Result panel 115 (unknown) (no date) (unknown) [facility] (no value) (units unknown) (unknown) Result panel 116 (unknown) (no date) (unknown) [facility] (no value) (units unknown) (unknown) Result panel 117 (unknown) (no date) (unknown) [facility] (no value) (units unknown) (unknown) Result panel 118 (unknown) (no date) (unknown) [facility] (no value) (units unknown) (unknown) Result panel 119 (unknown) (no date) (unknown) [facility] (no value) (units unknown) (unknown) Result panel 120 (unknown) (no date) (unknown) [facility] (no value) (units unknown) (unknown) Result panel 121 (unknown) (no date) (unknown) [facility] (no value) (units unknown) (unknown) Result panel 122 (unknown) (no date) (unknown) [facility] (no value) (units unknown) (unknown) Result panel 123 (unknown) (no date) (unknown) [facility] (no value) (units unknown) (unknown) Result panel 124 (unknown) (no date) (unknown) [facility] (no value) (units unknown) (unknown) Result panel 125 (unknown) (no date) (unknown) [facility] (no value) (units unknown) (unknown) Result panel 126 (unknown) (no date) (unknown) [facility] (no value) (units unknown) (unknown) Result panel 127 (unknown) (no date) (unknown) [facility] (no value) (units unknown) (unknown) Result panel 128 (unknown) (no date) (unknown) [facility] (no value) (units unknown) (unknown) Result panel 129 (unknown) (no date) (unknown) [facility] (no value) (units unknown) (unknown) Result panel 130 (unknown) (no date) (unknown) [facility] (no value) (units unknown) (unknown) Result panel 131 (unknown) (no date) (unknown) [facility] (no value) (units unknown) (unknown) Result panel 132 (unknown) (no date) (unknown) [facility] (no value) (units unknown) (unknown) Result panel 133 (unknown) (no date) (unknown) [facility] (no value) (units unknown) (unknown) Result panel 134 (unknown) (no date) (unknown) [facility] (no value) (units unknown) (unknown) Result panel 135 (unknown) (no date) (unknown) [facility] (no value) (units unknown) (unknown) Result panel 136 (unknown) (no date) (unknown) [facility] (no value) (units unknown) (unknown) Result panel 137 (unknown) (no date) (unknown) [facility] (no value) (units unknown) (unknown) Result panel 138 (unknown) (no date) (unknown) [facility] (no value) (units unknown) (unknown) Result panel 139 (unknown) (no date) (unknown) [facility] (no value) (units unknown) (unknown) Result panel 140 (unknown) (no date) (unknown) [facility] (no value) (units unknown) (unknown) Result panel 141 (unknown) (no date) (unknown) [facility] (no value) (units unknown) (unknown) Result panel 142 (unknown) (no date) (unknown) [facility] (no value) (units unknown) (unknown) Result panel 143 (unknown) (no date) (unknown) [facility] (no value) (units unknown) (unknown) Result panel 144 (unknown) (no date) (unknown) [facility] (no value) (units unknown) (unknown) Result panel 145 (unknown) (no date) (unknown) [facility] (no value) (units unknown) (unknown) Result panel 146 (unknown) (no date) (unknown) [facility] (no value) (units unknown) (unknown) Result panel 147 (unknown) (no date) (unknown) [facility] (no value) (units unknown) (unknown) Result panel 148 (unknown) (no date) (unknown) [facility] (no value) (units unknown) (unknown) Result panel 149 (unknown) (no date) (unknown) [facility] (no value) (units unknown) (unknown) Result panel 150 (unknown) (no date) (unknown) [facility] (no value) (units unknown) (unknown) Result panel 151 (unknown) (no date) (unknown) [facility] (no value) (units unknown) (unknown) Result panel 152 (unknown) (no date) (unknown) [facility] (no value) (units unknown) (unknown) Result panel 153 (unknown) (no date) (unknown) [facility] (no value) (units unknown) (unknown) Result panel 154 (unknown) (no date) (unknown) [facility] (no value) (units unknown) (unknown) Result panel 155 (unknown) (no date) (unknown) [facility] (no value) (units unknown) (unknown) Result panel 156 (unknown) (no date) (unknown) [facility] (no value) (units unknown) (unknown) Result panel 157 (unknown) (no date) (unknown) [facility] (no value) (units unknown) (unknown) Result panel 158 (unknown) (no date) (unknown) [facility] (no value) (units unknown) (unknown) Result panel 159 (unknown) (no date) (unknown) [facility] (no value) (units unknown) (unknown) Result panel 160 (unknown) (no date) (unknown) [facility] (no value) (units unknown) (unknown) Result panel 161 (unknown) (no date) (unknown) [facility] (no value) (units unknown) (unknown) Result panel 162 (unknown) (no date) (unknown) [facility] (no value) (units unknown) (unknown) Result panel 163 (unknown) (no date) (unknown) [facility] (no value) (units unknown) (unknown) Result panel 164 (unknown) (no date) (unknown) [facility] (no value) (units unknown) (unknown) Result panel 165 (unknown) (no date) (unknown) [facility] (no value) (units unknown) (unknown) Result panel 166 (unknown) (no date) (unknown) [facility] (no value) (units unknown) (unknown) Result panel 167 (unknown) (no date) (unknown) [facility] (no value) (units unknown) (unknown) Result panel 168 (unknown) (no date) (unknown) [facility] (no value) (units unknown) (unknown) Result panel 169 (unknown) (no date) (unknown) [facility] (no value) (units unknown) (unknown) Result panel 170 (unknown) (no date) (unknown) [facility] (no value) (units unknown) (unknown) Result panel 171 (unknown) (no date) (unknown) [facility] (no value) (units unknown) (unknown) Result panel 172 (unknown) (no date) (unknown) [facility] (no value) (units unknown) (unknown) Result panel 173 (unknown) (no date) (unknown) [facility] (no value) (units unknown) (unknown) Result panel 174 (unknown) (no date) (unknown) [facility] (no value) (units unknown) (unknown) Result panel 175 (unknown) (no date) (unknown) [facility] (no value) (units unknown) (unknown) Result panel 176 (unknown) (no date) (unknown) [facility] (no value) (units unknown) (unknown) Result panel 177 (unknown) (no date) (unknown) [facility] (no value) (units unknown) (unknown) Result panel 178 (unknown) (no date) (unknown) [facility] (no value) (units unknown) (unknown) Result panel 179 (unknown) (no date) (unknown) [facility] (no value) (units unknown) (unknown) Result panel 180 (unknown) (no date) (unknown) [facility] (no value) (units unknown) (unknown) Result panel 181 (unknown) (no date) (unknown) [facility] (no value) (units unknown) (unknown) Result panel 182 (unknown) (no date) (unknown) [facility] (no value) (units unknown) (unknown) Result panel 183 (unknown) (no date) (unknown) [facility] (no value) (units unknown) (unknown) Result panel 184 (unknown) (no date) (unknown) [facility] (no value) (units unknown) (unknown) Result panel 185 (unknown) (no date) (unknown) [facility] (no value) (units unknown) (unknown) Result panel 186 (unknown) (no date) (unknown) [facility] (no value) (units unknown) (unknown) Result panel 187 (unknown) (no date) (unknown) [facility] (no value) (units unknown) (unknown) Result panel 188 (unknown) (no date) (unknown) [facility] (no value) (units unknown) (unknown) Result panel 189 (unknown) (no date) (unknown) [facility] (no value) (units unknown) (unknown) Result panel 190 (unknown) (no date) (unknown) [facility] (no value) (units unknown) (unknown) Result panel 191 (unknown) (no date) (unknown) [facility] (no value) (units unknown) (unknown) Result panel 192 (unknown) (no date) (unknown) [facility] (no value) (units unknown) (unknown) Result panel 193 (unknown) (no date) (unknown) [facility] (no value) (units unknown) (unknown) Result panel 194 (unknown) (no date) (unknown) [facility] (no value) (units unknown) (unknown) Result panel 195 (unknown) (no date) (unknown) [facility] (no value) (units unknown) (unknown) Result panel 196 (unknown) (no date) (unknown) [facility] (no value) (units unknown) (unknown) Result panel 197 (unknown) (no date) (unknown) [facility] (no value) (units unknown) (unknown) Result panel 198 (unknown) (no date) (unknown) [facility] (no value) (units unknown) (unknown) Result panel 199 (unknown) (no date) (unknown) [facility] (no value) (units unknown) (unknown) Result panel 200 (unknown) (no date) (unknown) [facility] (no value) (units unknown) (unknown) Result panel 201 (unknown) (no date) (unknown) [facility] (no value) (units unknown) (unknown) Result panel 202 (unknown) (no date) (unknown) [facility] (no value) (units unknown) (unknown) Result panel 203 (unknown) (no date) (unknown) [facility] (no value) (units unknown) (unknown) Result panel 204 (unknown) (no date) (unknown) [facility] (no value) (units unknown) (unknown) Result panel 205 (unknown) (no date) (unknown) [facility] (no value) (units unknown) (unknown) Result panel 206 (unknown) (no date) (unknown) [facility] (no value) (units unknown) (unknown) Result panel 207 (unknown) (no date) (unknown) [facility] (no value) (units unknown) (unknown) Result panel 208 (unknown) (no date) (unknown) [facility] (no value) (units unknown) (unknown) Result panel 209 (unknown) (no date) (unknown) [facility] (no value) (units unknown) (unknown) Result panel 210 (unknown) (no date) (unknown) [facility] (no value) (units unknown) (unknown) Result panel 211 (unknown) (no date) (unknown) [facility] (no value) (units unknown) (unknown) Result panel 212 (unknown) (no date) (unknown) [facility] (no value) (units unknown) (unknown) Result panel 213 (unknown) (no date) (unknown) [facility] (no value) (units unknown) (unknown) Result panel 214 (unknown) (no date) (unknown) [facility] (no value) (units unknown) (unknown) Result panel 215 (unknown) (no date) (unknown) [facility] (no value) (units unknown) (unknown) Result panel 216 (unknown) (no date) (unknown) [facility] (no value) (units unknown) (unknown) Result panel 217 (unknown) (no date) (unknown) [facility] (no value) (units unknown) (unknown) Result panel 218 (unknown) (no date) (unknown) [facility] (no value) (units unknown) (unknown) Result panel 219 (unknown) (no date) (unknown) [facility] (no value) (units unknown) (unknown) Result panel 220 (unknown) (no date) (unknown) [facility] (no value) (units unknown) (unknown) Result panel 221 (unknown) (no date) (unknown) [facility] (no value) (units unknown) (unknown) Result panel 222 (unknown) (no date) (unknown) [facility] (no value) (units unknown) (unknown) Result panel 223 (unknown) (no date) (unknown) [facility] (no value) (units unknown) (unknown) Result panel 224 (unknown) (no date) (unknown) [facility] (no value) (units unknown) (unknown) Result panel 225 (unknown) (no date) (unknown) [facility] (no value) (units unknown) (unknown) Result panel 226 (unknown) (no date) (unknown) [facility] (no value) (units unknown) (unknown) Result panel 227 (unknown) (no date) (unknown) [facility] (no value) (units unknown) (unknown) Result panel 228 (unknown) (no date) (unknown) [facility] (no value) (units unknown) (unknown) Result panel 229 (unknown) (no date) (unknown) [facility] (no value) (units unknown) (unknown) Result panel 230 (unknown) (no date) (unknown) [facility] (no value) (units unknown) (unknown) Result panel 231 (unknown) (no date) (unknown) [facility] (no value) (units unknown) (unknown) Result panel 232 (unknown) (no date) (unknown) [facility] (no value) (units unknown) (unknown) Result panel 233 (unknown) (no date) (unknown) [facility] (no value) (units unknown) (unknown) Result panel 234 (unknown) (no date) (unknown) [facility] (no value) (units unknown) (unknown) Result panel 235 (unknown) (no date) (unknown) [facility] (no value) (units unknown) (unknown) Result panel 236 (unknown) (no date) (unknown) [facility] (no value) (units unknown) (unknown) Result panel 237 (unknown) (no date) (unknown) [facility] (no value) (units unknown) (unknown) Result panel 238 (unknown) (no date) (unknown) [facility] (no value) (units unknown) (unknown) Result panel 239 (unknown) (no date) (unknown) [facility] (no value) (units unknown) (unknown) Result panel 240 (unknown) (no date) (unknown) [facility] (no value) (units unknown) (unknown) Result panel 241 (unknown) (no date) (unknown) [facility] (no value) (units unknown) (unknown) Result panel 242 (unknown) (no date) (unknown) [facility] (no value) (units unknown) (unknown) Result panel 243 (unknown) (no date) (unknown) [facility] (no value) (units unknown) (unknown) Result panel 244 (unknown) (no date) (unknown) [facility] (no value) (units unknown) (unknown) Result panel 245 (unknown) (no date) (unknown) [facility] (no value) (units unknown) (unknown) Result panel 246 (unknown) (no date) (unknown) [facility] (no value) (units unknown) (unknown) Result panel 247 (unknown) (no date) (unknown) [facility] (no value) (units unknown) (unknown) Result panel 248 (unknown) (no date) (unknown) [facility] (no value) (units unknown) (unknown) Result panel 249 (unknown) (no date) (unknown) [facility] (no value) (units unknown) (unknown) Result panel 250 (unknown) (no date) (unknown) [facility] (no value) (units unknown) (unknown) Result panel 251 (unknown) (no date) (unknown) [facility] (no value) (units unknown) (unknown) Result panel 252 (unknown) (no date) (unknown) [facility] (no value) (units unknown) (unknown) Result panel 253 (unknown) (no date) (unknown) [facility] (no value) (units unknown) (unknown) Result panel 254 (unknown) (no date) (unknown) [facility] (no value) (units unknown) (unknown) Result panel 255 (unknown) (no date) (unknown) [facility] (no value) (units unknown) (unknown) Result panel 256 (unknown) (no date) (unknown) [facility] (no value) (units unknown) (unknown) Result panel 257 (unknown) (no date) (unknown) [facility] (no value) (units unknown) (unknown) Result panel 258 (unknown) (no date) (unknown) [facility] (no value) (units unknown) (unknown) Result panel 259 (unknown) (no date) (unknown) [facility] (no value) (units unknown) (unknown) Result panel 260 (unknown) (no date) (unknown) [facility] (no value) (units unknown) (unknown) Result panel 261 (unknown) (no date) (unknown) [facility] (no value) (units unknown) (unknown) Result panel 262 (unknown) (no date) (unknown) [facility] (no value) (units unknown) (unknown) Result panel 263 (unknown) (no date) (unknown) [facility] (no value) (units unknown) (unknown) Result panel 264 (unknown) (no date) (unknown) [facility] (no value) (units unknown) (unknown) Result panel 265 (unknown) (no date) (unknown) [facility] (no value) (units unknown) (unknown) Result panel 266 (unknown) (no date) (unknown) [facility] (no value) (units unknown) (unknown) Result panel 267 (unknown) (no date) (unknown) [facility] (no value) (units unknown) (unknown) Result panel 268 (unknown) (no date) (unknown) [facility] (no value) (units unknown) (unknown) Result panel 269 (unknown) (no date) (unknown) [facility] (no value) (units unknown) (unknown) Result panel 270 (unknown) (no date) (unknown) [facility] (no value) (units unknown) (unknown) Result panel 271 (unknown) (no date) (unknown) [facility] (no value) (units unknown) (unknown) Result panel 272 (unknown) (no date) (unknown) [facility] (no value) (units unknown) (unknown) Result panel 273 (unknown) (no date) (unknown) [facility] (no value) (units unknown) (unknown) Result panel 274 (unknown) (no date) (unknown) [facility] (no value) (units unknown) (unknown) Result panel 275 (unknown) (no date) (unknown) [facility] (no value) (units unknown) (unknown) Result panel 276 (unknown) (no date) (unknown) [facility] (no value) (units unknown) (unknown) Result panel 277 (unknown) (no date) (unknown) [facility] (no value) (units unknown) (unknown) Result panel 278 (unknown) (no date) (unknown) [facility] (no value) (units unknown) (unknown) Result panel 279 (unknown) (no date) (unknown) [facility] (no value) (units unknown) (unknown) Result panel 280 (unknown) (no date) (unknown) [facility] (no value) (units unknown) (unknown) Result panel 281 (unknown) (no date) (unknown) [facility] (no value) (units unknown) (unknown) Result panel 282 (unknown) (no date) (unknown) [facility] (no value) (units unknown) (unknown) Result panel 283 (unknown) (no date) (unknown) [facility] (no value) (units unknown) (unknown) Result panel 284 (unknown) (no date) (unknown) [facility] (no value) (units unknown) (unknown) Result panel 285 (unknown) (no date) (unknown) [facility] (no value) (units unknown) (unknown) Result panel 286 (unknown) (no date) (unknown) [facility] (no value) (units unknown) (unknown) Result panel 287 (unknown) (no date) (unknown) [facility] (no value) (units unknown) (unknown) Result panel 288 (unknown) (no date) (unknown) [facility] (no value) (units unknown) (unknown) Result panel 289 (unknown) (no date) (unknown) [facility] (no value) (units unknown) (unknown) Result panel 290 (unknown) (no date) (unknown) [facility] (no value) (units unknown) (unknown) Result panel 291 (unknown) (no date) (unknown) [facility] (no value) (units unknown) (unknown) Result panel 292 (unknown) (no date) (unknown) [facility] (no value) (units unknown) (unknown) Result panel 293 (unknown) (no date) (unknown) [facility] (no value) (units unknown) (unknown) Result panel 294 (unknown) (no date) (unknown) [facility] (no value) (units unknown) (unknown) Result panel 295 (unknown) (no date) (unknown) [facility] (no value) (units unknown) (unknown) Result panel 296 (unknown) (no date) (unknown) [facility] (no value) (units unknown) (unknown) Result panel 297 (unknown) (no date) (unknown) [facility] (no value) (units unknown) (unknown) Result panel 298 (unknown) (no date) (unknown) [facility] (no value) (units unknown) (unknown) Result panel 299 (unknown) (no date) (unknown) [facility] (no value) (units unknown) (unknown) Result panel 300 (unknown) (no date) (unknown) [facility] (no value) (units unknown) (unknown) Result panel 301 (unknown) (no date) (unknown) [facility] (no value) (units unknown) (unknown) Result panel 302 (unknown) (no date) (unknown) [facility] (no value) (units unknown) (unknown) Result panel 303 (unknown) (no date) (unknown) [facility] (no value) (units unknown) (unknown) Result panel 304 (unknown) (no date) (unknown) [facility] (no value) (units unknown) (unknown) Result panel 305 (unknown) (no date) (unknown) [facility] (no value) (units unknown) (unknown) Result panel 306 (unknown) (no date) (unknown) [facility] (no value) (units unknown) (unknown) Result panel 307 (unknown) (no date) (unknown) [facility] (no value) (units unknown) (unknown) Result panel 308 (unknown) (no date) (unknown) [facility] (no value) (units unknown) (unknown) Result panel 309 (unknown) (no date) (unknown) [facility] (no value) (units unknown) (unknown) Result panel 310 (unknown) (no date) (unknown) [facility] (no value) (units unknown) (unknown) Result panel 311 (unknown) (no date) (unknown) [facility] (no value) (units unknown) (unknown) Result panel 312 (unknown) (no date) (unknown) [facility] (no value) (units unknown) (unknown) Result panel 313 (unknown) (no date) (unknown) [facility] (no value) (units unknown) (unknown) Result panel 314 (unknown) (no date) (unknown) [facility] (no value) (units unknown) (unknown) Result panel 315 (unknown) (no date) (unknown) [facility] (no value) (units unknown) (unknown) Result panel 316 (unknown) (no date) (unknown) [facility] (no value) (units unknown) (unknown) Result panel 317 (unknown) (no date) (unknown) [facility] (no value) (units unknown) (unknown) Result panel 318 (unknown) (no date) (unknown) [facility] (no value) (units unknown) (unknown) Result panel 319 (unknown) (no date) (unknown) [facility] (no value) (units unknown) (unknown) Result panel 320 (unknown) (no date) (unknown) [facility] (no value) (units unknown) (unknown) Result panel 321 (unknown) (no date) (unknown) [facility] (no value) (units unknown) (unknown) Result panel 322 (unknown) (no date) (unknown) [facility] (no value) (units unknown) (unknown) Result panel 323 (unknown) (no date) (unknown) [facility] (no value) (units unknown) (unknown) Result panel 324 (unknown) (no date) (unknown) [facility] (no value) (units unknown) (unknown) Result panel 325 (unknown) (no date) (unknown) [facility] (no value) (units unknown) (unknown) Result panel 326 (unknown) (no date) (unknown) [facility] (no value) (units unknown) (unknown) Result panel 327 (unknown) (no date) (unknown) [facility] (no value) (units unknown) (unknown) Result panel 328 (unknown) (no date) (unknown) [facility] (no value) (units unknown) (unknown) Result panel 329 (unknown) (no date) (unknown) [facility] (no value) (units unknown) (unknown) Result panel 330 (unknown) (no date) (unknown) [facility] (no value) (units unknown) (unknown) Result panel 331 (unknown) (no date) (unknown) [facility] (no value) (units unknown) (unknown) Result panel 332 (unknown) (no date) (unknown) [facility] (no value) (units unknown) (unknown) Result panel 333 (unknown) (no date) (unknown) [facility] (no value) (units unknown) (unknown) Result panel 334 (unknown) (no date) (unknown) [facility] (no value) (units unknown) (unknown) Result panel 335 (unknown) (no date) (unknown) [facility] (no value) (units unknown) (unknown) Result panel 336 (unknown) (no date) (unknown) [facility] (no value) (units unknown) (unknown) Result panel 337 (unknown) (no date) (unknown) [facility] (no value) (units unknown) (unknown) Result panel 338 (unknown) (no date) (unknown) [facility] (no value) (units unknown) (unknown) Result panel 339 (unknown) (no date) (unknown) [facility] (no value) (units unknown) (unknown) Result panel 340 (unknown) (no date) (unknown) [facility] (no value) (units unknown) (unknown) Result panel 341 (unknown) (no date) (unknown) [facility] (no value) (units unknown) (unknown) Result panel 342 (unknown) (no date) (unknown) [facility] (no value) (units unknown) (unknown) Result panel 343 (unknown) (no date) (unknown) [facility] (no value) (units unknown) (unknown) Result panel 344 (unknown) (no date) (unknown) [facility] (no value) (units unknown) (unknown) Result panel 345 (unknown) (no date) (unknown) [facility] (no value) (units unknown) (unknown) Result panel 346 (unknown) (no date) (unknown) [facility] (no value) (units unknown) (unknown) Result panel 347 (unknown) (no date) (unknown) [facility] (no value) (units unknown) (unknown) Result panel 348 (unknown) (no date) (unknown) [facility] (no value) (units unknown) (unknown) Result panel 349 (unknown) (no date) (unknown) [facility] (no value) (units unknown) (unknown) Result panel 350 (unknown) (no date) (unknown) [facility] (no value) (units unknown) (unknown) Result panel 351 (unknown) (no date) (unknown) [facility] (no value) (units unknown) (unknown) Result panel 352 (unknown) (no date) (unknown) [facility] (no value) (units unknown) (unknown) Result panel 353 (unknown) (no date) (unknown) [facility] (no value) (units unknown) (unknown) Result panel 354 (unknown) (no date) (unknown) [facility] (no value) (units unknown) (unknown) Result panel 355 (unknown) (no date) (unknown) [facility] (no value) (units unknown) (unknown) Result panel 356 (unknown) (no date) (unknown) [facility] (no value) (units unknown) (unknown) Result panel 357 (unknown) (no date) (unknown) [facility] (no value) (units unknown) (unknown) Result panel 358 (unknown) (no date) (unknown) [facility] (no value) (units unknown) (unknown) Result panel 359 (unknown) (no date) (unknown) [facility] (no value) (units unknown) (unknown) Result panel 360 (unknown) (no date) (unknown) [facility] (no value) (units unknown) (unknown) Result panel 361 (unknown) (no date) (unknown) [facility] (no value) (units unknown) (unknown) Result panel 362 (unknown) (no date) (unknown) [facility] (no value) (units unknown) (unknown) Result panel 363 (unknown) (no date) (unknown) [facility] (no value) (units unknown) (unknown) Result panel 364 (unknown) (no date) (unknown) [facility] (no value) (units unknown) (unknown) Result panel 365 (unknown) (no date) (unknown) [facility] (no value) (units unknown) (unknown) Result panel 366 (unknown) (no date) (unknown) [facility] (no value) (units unknown) (unknown) Result panel 367 (unknown) (no date) (unknown) [facility] (no value) (units unknown) (unknown) Result panel 368 (unknown) (no date) (unknown) [facility] (no value) (units unknown) (unknown) Result panel 369 (unknown) (no date) (unknown) [facility] (no value) (units unknown) (unknown) Result panel 370 (unknown) (no date) (unknown) [facility] (no value) (units unknown) (unknown) Result panel 371 (unknown) (no date) (unknown) [facility] (no value) (units unknown) (unknown) Result panel 372 (unknown) (no date) (unknown) [facility] (no value) (units unknown) (unknown) Result panel 373 (unknown) (no date) (unknown) [facility] (no value) (units unknown) (unknown) Result panel 374 (unknown) (no date) (unknown) [facility] (no value) (units unknown) (unknown) Result panel 375 (unknown) (no date) (unknown) [facility] (no value) (units unknown) (unknown) Result panel 376 (unknown) (no date) (unknown) [facility] (no value) (units unknown) (unknown) Result panel 377 (unknown) (no date) (unknown) [facility] (no value) (units unknown) (unknown) Result panel 378 (unknown) (no date) (unknown) [facility] (no value) (units unknown) (unknown) Result panel 379 (unknown) (no date) (unknown) [facility] (no value) (units unknown) (unknown) Result panel 380 (unknown) (no date) (unknown) [facility] (no value) (units unknown) (unknown) Result panel 381 (unknown) (no date) (unknown) [facility] (no value) (units unknown) (unknown) Result panel 382 (unknown) (no date) (unknown) [facility] (no value) (units unknown) (unknown) Result panel 383 (unknown) (no date) (unknown) [facility] (no value) (units unknown) (unknown) Result panel 384 (unknown) (no date) (unknown) [facility] (no value) (units unknown) (unknown) Result panel 385 (unknown) (no date) (unknown) [facility] (no value) (units unknown) (unknown) Result panel 386 (unknown) (no date) (unknown) [facility] (no value) (units unknown) (unknown) Result panel 387 (unknown) (no date) (unknown) [facility] (no value) (units unknown) (unknown) Result panel 388 (unknown) (no date) (unknown) [facility] (no value) (units unknown) (unknown) Result panel 389 (unknown) (no date) (unknown) [facility] (no value) (units unknown) (unknown) Result panel 390 (unknown) (no date) (unknown) [facility] (no value) (units unknown) (unknown) Result panel 391 (unknown) (no date) (unknown) [facility] (no value) (units unknown) (unknown) Result panel 392 (unknown) (no date) (unknown) [facility] (no value) (units unknown) (unknown) Result panel 393 (unknown) (no date) (unknown) [facility] (no value) (units unknown) (unknown) Result panel 394 (unknown) (no date) (unknown) [facility] (no value) (units unknown) (unknown) Result panel 395 (unknown) (no date) (unknown) [facility] (no value) (units unknown) (unknown) Result panel 396 (unknown) (no date) (unknown) [facility] (no value) (units unknown) (unknown) Result panel 397 (unknown) (no date) (unknown) [facility] (no value) (units unknown) (unknown) Result panel 398 (unknown) (no date) (unknown) [facility] (no value) (units unknown) (unknown) Result panel 399 (unknown) (no date) (unknown) [facility] (no value) (units unknown) (unknown) Result panel 400 (unknown) (no date) (unknown) [facility] (no value) (units unknown) (unknown) Result panel 401 (unknown) (no date) (unknown) [facility] (no value) (units unknown) (unknown) Result panel 402 (unknown) (no date) (unknown) [facility] (no value) (units unknown) (unknown) Result panel 403 (unknown) (no date) (unknown) [facility] (no value) (units unknown) (unknown) Result panel 404 (unknown) (no date) (unknown) [facility] (no value) (units unknown) (unknown) Result panel 405 (unknown) (no date) (unknown) [facility] (no value) (units unknown) (unknown) Result panel 406 (unknown) (no date) (unknown) [facility] (no value) (units unknown) (unknown) Result panel 407 (unknown) (no date) (unknown) [facility] (no value) (units unknown) (unknown) Result panel 408 (unknown) (no date) (unknown) [facility] (no value) (units unknown) (unknown) Result panel 409 (unknown) (no date) (unknown) [facility] (no value) (units unknown) (unknown) Result panel 410 (unknown) (no date) (unknown) [facility] (no value) (units unknown) (unknown) Result panel 411 (unknown) (no date) (unknown) [facility] (no value) (units unknown) (unknown) Result panel 412 (unknown) (no date) (unknown) [facility] (no value) (units unknown) (unknown) Result panel 413 (unknown) (no date) (unknown) [facility] (no value) (units unknown) (unknown) Result panel 414 (unknown) (no date) (unknown) [facility] (no value) (units unknown) (unknown) Result panel 415 (unknown) (no date) (unknown) [facility] (no value) (units unknown) (unknown) Result panel 416 (unknown) (no date) (unknown) [facility] (no value) (units unknown) (unknown) Result panel 417 (unknown) (no date) (unknown) [facility] (no value) (units unknown) (unknown) Result panel 418 (unknown) (no date) (unknown) [facility] (no value) (units unknown) (unknown) Result panel 419 (unknown) (no date) (unknown) [facility] (no value) (units unknown) (unknown) Result panel 420 (unknown) (no date) (unknown) [facility] (no value) (units unknown) (unknown) Result panel 421 (unknown) (no date) (unknown) [facility] (no value) (units unknown) (unknown) Result panel 422 (unknown) (no date) (unknown) [facility] (no value) (units unknown) (unknown) Result panel 423 (unknown) (no date) (unknown) [facility] (no value) (units unknown) (unknown) Result panel 424 (unknown) (no date) (unknown) [facility] (no value) (units unknown) (unknown) Result panel 425 (unknown) (no date) (unknown) [facility] (no value) (units unknown) (unknown) Result panel 426 (unknown) (no date) (unknown) [facility] (no value) (units unknown) (unknown) Result panel 427 (unknown) (no date) (unknown) [facility] (no value) (units unknown) (unknown) Result panel 428 (unknown) (no date) (unknown) [facility] (no value) (units unknown) (unknown) Result panel 429 (unknown) (no date) (unknown) [facility] (no value) (units unknown) (unknown) Result panel 430 (unknown) (no date) (unknown) [facility] (no value) (units unknown) (unknown) Result panel 431 (unknown) (no date) (unknown) [facility] (no value) (units unknown) (unknown) Result panel 432 (unknown) (no date) (unknown) [facility] (no value) (units unknown) (unknown) Result panel 433 (unknown) (no date) (unknown) [facility] (no value) (units unknown) (unknown) Result panel 434 (unknown) (no date) (unknown) [facility] (no value) (units unknown) (unknown) Result panel 435 (unknown) (no date) (unknown) [facility] (no value) (units unknown) (unknown) Result panel 436 (unknown) (no date) (unknown) [facility] (no value) (units unknown) (unknown) Result panel 437 (unknown) (no date) (unknown) [facility] (no value) (units unknown) (unknown) Result panel 438 (unknown) (no date) (unknown) [facility] (no value) (units unknown) (unknown) Result panel 439 (unknown) (no date) (unknown) [facility] (no value) (units unknown) (unknown) Result panel 440 (unknown) (no date) (unknown) [facility] (no value) (units unknown) (unknown) Result panel 441 (unknown) (no date) (unknown) [facility] (no value) (units unknown) (unknown) Result panel 442 (unknown) (no date) (unknown) [facility] (no value) (units unknown) (unknown) Result panel 443 (unknown) (no date) (unknown) [facility] (no value) (units unknown) (unknown) Result panel 444 (unknown) (no date) (unknown) [facility] (no value) (units unknown) (unknown) Result panel 445 (unknown) (no date) (unknown) [facility] (no value) (units unknown) (unknown) Result panel 446 (unknown) (no date) (unknown) [facility] (no value) (units unknown) (unknown) Result panel 447 (unknown) (no date) (unknown) [facility] (no value) (units unknown) (unknown) Result panel 448 (unknown) (no date) (unknown) [facility] (no value) (units unknown) (unknown) Result panel 449 (unknown) (no date) (unknown) [facility] (no value) (units unknown) (unknown) Result panel 450 (unknown) (no date) (unknown) [facility] (no value) (units unknown) (unknown) Result panel 451 (unknown) (no date) (unknown) [facility] (no value) (units unknown) (unknown) Result panel 452 (unknown) (no date) (unknown) [facility] (no value) (units unknown) (unknown) Result panel 453 (unknown) (no date) (unknown) [facility] (no value) (units unknown) (unknown) Result panel 454 (unknown) (no date) (unknown) [facility] (no value) (units unknown) (unknown) Result panel 455 (unknown) (no date) (unknown) [facility] (no value) (units unknown) (unknown) Result panel 456 (unknown) (no date) (unknown) [facility] (no value) (units unknown) (unknown) Result panel 457 (unknown) (no date) (unknown) [facility] (no value) (units unknown) (unknown) Result panel 458 (unknown) (no date) (unknown) [facility] (no value) (units unknown) (unknown) Result panel 459 (unknown) (no date) (unknown) [facility] (no value) (units unknown) (unknown) Result panel 460 (unknown) (no date) (unknown) [facility] (no value) (units unknown) (unknown) Result panel 461 (unknown) (no date) (unknown) [facility] (no value) (units unknown) (unknown) Result panel 462 (unknown) (no date) (unknown) [facility] (no value) (units unknown) (unknown) Result panel 463 (unknown) (no date) (unknown) [facility] (no value) (units unknown) (unknown) Result panel 464 (unknown) (no date) (unknown) [facility] (no value) (units unknown) (unknown) Result panel 465 (unknown) (no date) (unknown) [facility] (no value) (units unknown) (unknown) Result panel 466 (unknown) (no date) (unknown) [facility] (no value) (units unknown) (unknown) Result panel 467 (unknown) (no date) (unknown) [facility] (no value) (units unknown) (unknown) Result panel 468 (unknown) (no date) (unknown) [facility] (no value) (units unknown) (unknown) Result panel 469 (unknown) (no date) (unknown) [facility] (no value) (units unknown) (unknown) Result panel 470 (unknown) (no date) (unknown) [facility] (no value) (units unknown) (unknown) Result panel 471 (unknown) (no date) (unknown) [facility] (no value) (units unknown) (unknown) Result panel 472 (unknown) (no date) (unknown) [facility] (no value) (units unknown) (unknown) Result panel 473 (unknown) (no date) (unknown) [facility] (no value) (units unknown) (unknown) Result panel 474 (unknown) (no date) (unknown) [facility] (no value) (units unknown) (unknown) Result panel 475 (unknown) (no date) (unknown) [facility] (no value) (units unknown) (unknown) Result panel 476 (unknown) (no date) (unknown) [facility] (no value) (units unknown) (unknown) Result panel 477 (unknown) (no date) (unknown) [facility] (no value) (units unknown) (unknown) Result panel 478 (unknown) (no date) (unknown) [facility] (no value) (units unknown) (unknown) Result panel 479 (unknown) (no date) (unknown) [facility] (no value) (units unknown) (unknown) Result panel 480 (unknown) (no date) (unknown) [facility] (no value) (units unknown) (unknown) Result panel 481 (unknown) (no date) (unknown) [facility] (no value) (units unknown) (unknown) Result panel 482 (unknown) (no date) (unknown) [facility] (no value) (units unknown) (unknown) Result panel 483 (unknown) (no date) (unknown) [facility] (no value) (units unknown) (unknown) Result panel 484 (unknown) (no date) (unknown) [facility] (no value) (units unknown) (unknown) Result panel 485 (unknown) (no date) (unknown) [facility] (no value) (units unknown) (unknown) Result panel 486 (unknown) (no date) (unknown) [facility] (no value) (units unknown) (unknown) Result panel 487 (unknown) (no date) (unknown) [facility] (no value) (units unknown) (unknown) Result panel 488 (unknown) (no date) (unknown) [facility] (no value) (units unknown) (unknown) Result panel 489 (unknown) (no date) (unknown) [facility] (no value) (units unknown) (unknown) Result panel 490 (unknown) (no date) (unknown) [facility] (no value) (units unknown) (unknown) Result panel 491 (unknown) (no date) (unknown) [facility] (no value) (units unknown) (unknown) Result panel 492 (unknown) (no date) (unknown) [facility] (no value) (units unknown) (unknown) Result panel 493 (unknown) (no date) (unknown) [facility] (no value) (units unknown) (unknown) Result panel 494 (unknown) (no date) (unknown) [facility] (no value) (units unknown) (unknown) Result panel 495 (unknown) (no date) (unknown) [facility] (no value) (units unknown) (unknown) Result panel 496 (unknown) (no date) (unknown) [facility] (no value) (units unknown) (unknown) Result panel 497 (unknown) (no date) (unknown) [facility] (no value) (units unknown) (unknown) Result panel 498 (unknown) (no date) (unknown) [facility] (no value) (units unknown) (unknown) Result panel 499 (unknown) (no date) (unknown) [facility] (no value) (units unknown) (unknown) Result panel 500 (unknown) (no date) (unknown) [facility] (no value) (units unknown) (unknown) Result panel 501 (unknown) (no date) (unknown) [facility] (no value) (units unknown) (unknown) Result panel 502 (unknown) (no date) (unknown) [facility] (no value) (units unknown) (unknown) Result panel 503 (unknown) (no date) (unknown) [facility] (no value) (units unknown) (unknown) Result panel 504 (unknown) (no date) (unknown) [facility] (no value) (units unknown) (unknown) Result panel 505 (unknown) (no date) (unknown) [facility] (no value) (units unknown) (unknown) Result panel 506 (unknown) (no date) (unknown) [facility] (no value) (units unknown) (unknown) Result panel 507 (unknown) (no date) (unknown) [facility] (no value) (units unknown) (unknown) Result panel 508 (unknown) (no date) (unknown) [facility] (no value) (units unknown) (unknown) Result panel 509 (unknown) (no date) (unknown) [facility] (no value) (units unknown) (unknown) Result panel 510 (unknown) (no date) (unknown) [facility] (no value) (units unknown) (unknown) Result panel 511 (unknown) (no date) (unknown) [facility] (no value) (units unknown) (unknown) Result panel 512 (unknown) (no date) (unknown) [facility] (no value) (units unknown) (unknown) Result panel 513 (unknown) (no date) (unknown) [facility] (no value) (units unknown) (unknown) Result panel 514 (unknown) (no date) (unknown) [facility] (no value) (units unknown) (unknown) Result panel 515 (unknown) (no date) (unknown) [facility] (no value) (units unknown) (unknown) Result panel 516 (unknown) (no date) (unknown) [facility] (no value) (units unknown) (unknown) Result panel 517 (unknown) (no date) (unknown) [facility] (no value) (units unknown) (unknown) Result panel 518 (unknown) (no date) (unknown) [facility] (no value) (units unknown) (unknown) Result panel 519 (unknown) (no date) (unknown) [facility] (no value) (units unknown) (unknown) Result panel 520 (unknown) (no date) (unknown) [facility] (no value) (units unknown) (unknown) Result panel 521 (unknown) (no date) (unknown) [facility] (no value) (units unknown) (unknown) Result panel 522 (unknown) (no date) (unknown) [facility] (no value) (units unknown) (unknown) Result panel 523 (unknown) (no date) (unknown) [facility] (no value) (units unknown) (unknown) Result panel 524 (unknown) (no date) (unknown) [facility] (no value) (units unknown) (unknown) Result panel 525 (unknown) (no date) (unknown) [facility] (no value) (units unknown) (unknown) Result panel 526 (unknown) (no date) (unknown) [facility] (no value) (units unknown) (unknown) Result panel 527 (unknown) (no date) (unknown) [facility] (no value) (units unknown) (unknown) Result panel 528 (unknown) (no date) (unknown) [facility] (no value) (units unknown) (unknown) Result panel 529 (unknown) (no date) (unknown) [facility] (no value) (units unknown) (unknown) Result panel 530 (unknown) (no date) (unknown) [facility] (no value) (units unknown) (unknown) Result panel 531 (unknown) (no date) (unknown) [facility] (no value) (units unknown) (unknown) Result panel 532 (unknown) (no date) (unknown) [facility] (no value) (units unknown) (unknown) Result panel 533 (unknown) (no date) (unknown) [facility] (no value) (units unknown) (unknown) Result panel 534 (unknown) (no date) (unknown) [facility] (no value) (units unknown) (unknown) Result panel 535 (unknown) (no date) (unknown) [facility] (no value) (units unknown) (unknown) Result panel 536 (unknown) (no date) (unknown) [facility] (no value) (units unknown) (unknown) Result panel 537 (unknown) (no date) (unknown) [facility] (no value) (units unknown) (unknown) Result panel 538 (unknown) (no date) (unknown) [facility] (no value) (units unknown) (unknown) Result panel 539 (unknown) (no date) (unknown) [facility] (no value) (units unknown) (unknown) Result panel 540 (unknown) (no date) (unknown) [facility] (no value) (units unknown) (unknown) Result panel 541 (unknown) (no date) (unknown) [facility] (no value) (units unknown) (unknown) Result panel 542 (unknown) (no date) (unknown) [facility] (no value) (units unknown) (unknown) Result panel 543 (unknown) (no date) (unknown) [facility] (no value) (units unknown) (unknown) Result panel 544 (unknown) (no date) (unknown) [facility] (no value) (units unknown) (unknown) Result panel 545 (unknown) (no date) (unknown) [facility] (no value) (units unknown) (unknown) Result panel 546 (unknown) (no date) (unknown) [facility] (no value) (units unknown) (unknown) Result panel 547 (unknown) (no date) (unknown) [facility] (no value) (units unknown) (unknown) Result panel 548 (unknown) (no date) (unknown) [facility] (no value) (units unknown) (unknown) Result panel 549 (unknown) (no date) (unknown) [facility] (no value) (units unknown) (unknown) Result panel 550 (unknown) (no date) (unknown) [facility] (no value) (units unknown) (unknown) Result panel 551 (unknown) (no date) (unknown) [facility] (no value) (units unknown) (unknown) Result panel 552 (unknown) (no date) (unknown) [facility] (no value) (units unknown) (unknown) Result panel 553 (unknown) (no date) (unknown) [facility] (no value) (units unknown) (unknown) Result panel 554 (unknown) (no date) (unknown) [facility] (no value) (units unknown) (unknown) Result panel 555 (unknown) (no date) (unknown) [facility] (no value) (units unknown) (unknown) Result panel 556 (unknown) (no date) (unknown) [facility] (no value) (units unknown) (unknown) Result panel 557 (unknown) (no date) (unknown) [facility] (no value) (units unknown) (unknown) Result panel 558 (unknown) (no date) (unknown) [facility] (no value) (units unknown) (unknown) Result panel 559 (unknown) (no date) (unknown) [facility] (no value) (units unknown) (unknown) Result panel 560 (unknown) (no date) (unknown) [facility] (no value) (units unknown) (unknown) Result panel 561 (unknown) (no date) (unknown) [facility] (no value) (units unknown) (unknown) Result panel 562 (unknown) (no date) (unknown) [facility] (no value) (units unknown) (unknown) Result panel 563 (unknown) (no date) (unknown) [facility] (no value) (units unknown) (unknown) Result panel 564 (unknown) (no date) (unknown) [facility] (no value) (units unknown) (unknown) Result panel 565 (unknown) (no date) (unknown) [facility] (no value) (units unknown) (unknown) Result panel 566 (unknown) (no date) (unknown) [facility] (no value) (units unknown) (unknown) Result panel 567 (unknown) (no date) (unknown) [facility] (no value) (units unknown) (unknown) Result panel 568 (unknown) (no date) (unknown) [facility] (no value) (units unknown) (unknown) Result panel 569 (unknown) (no date) (unknown) [facility] (no value) (units unknown) (unknown) Result panel 570 (unknown) (no date) (unknown) [facility] (no value) (units unknown) (unknown) Result panel 571 (unknown) (no date) (unknown) [facility] (no value) (units unknown) (unknown) Result panel 572 (unknown) (no date) (unknown) [facility] (no value) (units unknown) (unknown) Result panel 573 (unknown) (no date) (unknown) [facility] (no value) (units unknown) (unknown) Result panel 574 (unknown) (no date) (unknown) [facility] (no value) (units unknown) (unknown) Result panel 575 (unknown) (no date) (unknown) [facility] (no value) (units unknown) (unknown) Result panel 576 (unknown) (no date) (unknown) [facility] (no value) (units unknown) (unknown) Result panel 577 (unknown) (no date) (unknown) [facility] (no value) (units unknown) (unknown) Result panel 578 (unknown) (no date) (unknown) [facility] (no value) (units unknown) (unknown) Result panel 579 (unknown) (no date) (unknown) [facility] (no value) (units unknown) (unknown) Result panel 580 (unknown) (no date) (unknown) [facility] (no value) (units unknown) (unknown) Result panel 581 (unknown) (no date) (unknown) [facility] (no value) (units unknown) (unknown) Result panel 582 (unknown) (no date) (unknown) [facility] (no value) (units unknown) (unknown) Result panel 583 (unknown) (no date) (unknown) [facility] (no value) (units unknown) (unknown) Result panel 584 (unknown) (no date) (unknown) [facility] (no value) (units unknown) (unknown) Result panel 585 (unknown) (no date) (unknown) [facility] (no value) (units unknown) (unknown) Result panel 586 (unknown) (no date) (unknown) [facility] (no value) (units unknown) (unknown) Result panel 587 (unknown) (no date) (unknown) [facility] (no value) (units unknown) (unknown) Result panel 588 (unknown) (no date) (unknown) [facility] (no value) (units unknown) (unknown) Result panel 589 (unknown) (no date) (unknown) [facility] (no value) (units unknown) (unknown) Result panel 590 (unknown) (no date) (unknown) [facility] (no value) (units unknown) (unknown) Result panel 591 (unknown) (no date) (unknown) [facility] (no value) (units unknown) (unknown) Result panel 592 (unknown) (no date) (unknown) [facility] (no value) (units unknown) (unknown) Result panel 593 (unknown) (no date) (unknown) [facility] (no value) (units unknown) (unknown) Result panel 594 (unknown) (no date) (unknown) [facility] (no value) (units unknown) (unknown) Result panel 595 (unknown) (no date) (unknown) [facility] (no value) (units unknown) (unknown) Result panel 596 (unknown) (no date) (unknown) [facility] (no value) (units unknown) (unknown) Result panel 597 (unknown) (no date) (unknown) [facility] (no value) (units unknown) (unknown) Result panel 598 (unknown) (no date) (unknown) [facility] (no value) (units unknown) (unknown) Result panel 599 (unknown) (no date) (unknown) [facility] (no value) (units unknown) (unknown) Result panel 600 (unknown) (no date) (unknown) [facility] (no value) (units unknown) (unknown) Result panel 601 (unknown) (no date) (unknown) [facility] (no value) (units unknown) (unknown) Result panel 602 (unknown) (no date) (unknown) [facility] (no value) (units unknown) (unknown) Result panel 603 (unknown) (no date) (unknown) [facility] (no value) (units unknown) (unknown) Result panel 604 (unknown) (no date) (unknown) [facility] (no value) (units unknown) (unknown) Result panel 605 (unknown) (no date) (unknown) [facility] (no value) (units unknown) (unknown) Result panel 606 (unknown) (no date) (unknown) [facility] (no value) (units unknown) (unknown) Result panel 607 (unknown) (no date) (unknown) [facility] (no value) (units unknown) (unknown) Result panel 608 (unknown) (no date) (unknown) [facility] (no value) (units unknown) (unknown) Result panel 609 (unknown) (no date) (unknown) [facility] (no value) (units unknown) (unknown) Result panel 610 (unknown) (no date) (unknown) [facility] (no value) (units unknown) (unknown) Result panel 611 (unknown) (no date) (unknown) [facility] (no value) (units unknown) (unknown) Result panel 612 (unknown) (no date) (unknown) [facility] (no value) (units unknown) (unknown) Result panel 613 (unknown) (no date) (unknown) [facility] (no value) (units unknown) (unknown) Result panel 614 (unknown) (no date) (unknown) [facility] (no value) (units unknown) (unknown) Result panel 615 (unknown) (no date) (unknown) [facility] (no value) (units unknown) (unknown) Result panel 616 (unknown) (no date) (unknown) [facility] (no value) (units unknown) (unknown) Result panel 617 (unknown) (no date) (unknown) [facility] (no value) (units unknown) (unknown) Result panel 618 (unknown) (no date) (unknown) [facility] (no value) (units unknown) (unknown) Result panel 619 (unknown) (no date) (unknown) [facility] (no value) (units unknown) (unknown) Result panel 620 (unknown) (no date) (unknown) [facility] (no value) (units unknown) (unknown) Result panel 621 (unknown) (no date) (unknown) [facility] (no value) (units unknown) (unknown) Result panel 622 (unknown) (no date) (unknown) [facility] (no value) (units unknown) (unknown) Result panel 623 (unknown) (no date) (unknown) [facility] (no value) (units unknown) (unknown) Result panel 624 (unknown) (no date) (unknown) [facility] (no value) (units unknown) (unknown) Result panel 625 (unknown) (no date) (unknown) [facility] (no value) (units unknown) (unknown) Result panel 626 (unknown) (no date) (unknown) [facility] (no value) (units unknown) (unknown) Result panel 627 (unknown) (no date) (unknown) [facility] (no value) (units unknown) (unknown) Result panel 628 (unknown) (no date) (unknown) [facility] (no value) (units unknown) (unknown) Result panel 629 (unknown) (no date) (unknown) [facility] (no value) (units unknown) (unknown) Result panel 630 (unknown) (no date) (unknown) (unknown) (no value) (units unknown) (unknown) (unknown) (no date) (unknown) (unknown) 07/24/22 (units unknown) (unknown) (unknown) (no date) (unknown) (unknown) [address] [place] [address] (units unknown) (unknown) (unknown) (no date) (unknown) (unknown) [id number] (units unknown) (unknown) (unknown) (no date) (unknown) (unknown) Accession Number: [id number] (units unknown) (unknown) (unknown) (no date) (unknown) (unknown) Age/Sex: 57 / F Date of Service: (units unknown) (unknown) (unknown) (no date) (unknown) (unknown) [place] [address] (units unknown) (unknown) (unknown) (no date) (unknown) (unknown) Approved by: Moi Gray M.D. on 07/24/2022 at 11:50 (units unknown) (unknown) (unknown) (no date) (unknown) (unknown) Bones and chest wall : No suspicious bony lesions. Overlying soft tissues (units unknown) (unknown) (unknown) (no date) (unknown) (unknown) COMPARISON: None. (units unknown) (unknown) (unknown) (no date) (unknown) (unknown) : 1965 Acct:[id number] (units unknown) (unknown) (unknown) (no date) (unknown) (unknown) Dictated by: Moi Gray M.D. on 07/24/2022 at 11:50 (units unknown) (unknown) (unknown) (no date) (unknown) (unknown) Diffuse (units unknown) (unknown) (unknown) (no date) (unknown) (unknown) FINDINGS: (units unknown) (unknown) (unknown) (no date) (unknown) (unknown) IMPRESSION: Cardiomegaly with pulmonary vascular congestion. (units unknown) (unknown) (unknown) (no date) (unknown) (unknown) INDICATIONS: SOB (units unknown) (unknown) (unknown) (no date) (unknown) (unknown) [facility] (units unknown) (unknown) (unknown) (no date) (unknown) (unknown) Loc: ED (units unknown) (unknown) (unknown) (no date) (unknown) (unknown) Lungs and pleura: Lungs are clear. No pleural effusions or pneumothorax. (units unknown) (unknown) (unknown) (no date) (unknown) (unknown) Mediastinum: Mediastinal contours appear normal. Heart size is enlarged. (units unknown) (unknown) (unknown) (no date) (unknown) (unknown) Ordering Provider: Rufino Solorzano D.O. (units unknown) (unknown) (unknown) (no date) (unknown) (unknown) PROCEDURE: XR CHEST 1V (units unknown) (unknown) (unknown) (no date) (unknown) (unknown) Patient: Ester Benavides MR#: [id number] (units unknown) (unknown) (unknown) (no date) (unknown) (unknown) Procedure: XR chest 1V (units unknown) (unknown) (unknown) (no date) (unknown) (unknown) Signed (units unknown) (unknown) (unknown) (no date) (unknown) (unknown) Surgical changes and devices: Left chest wall pacer is seen with an intact (units unknown) (unknown) (unknown) (no date) (unknown) (unknown) TECHNIQUE: One view of the chest was acquired. (units unknown) (unknown) (unknown) (no date) (unknown) (unknown) XRay Report (units unknown) (unknown) (unknown) (no date) (unknown) (unknown) appear (units unknown) (unknown) (unknown) (no date) (unknown) (unknown) lead. (units unknown) (unknown) (unknown) (no date) (unknown) (unknown) pulmonary vascular congestion bilaterally. (units unknown) (unknown) (unknown) (no date) (unknown) (unknown) unremarkable. (units unknown) (unknown) Result panel 631 (unknown) (no date) (unknown) (unknown) (no value) (units unknown) (unknown) (unknown) (no date) (unknown) (unknown) [id number] (units unknown) (unknown) (unknown) (no date) (unknown) (unknown) Age/Sex: 57 / F (units unknown) (unknown) (unknown) (no date) (unknown) (unknown) Allergies (units unknown) (unknown) (unknown) (no date) (unknown) (unknown) Allergy/AdvReac Type Severity Reaction Status Date / Time (units unknown) (unknown) (unknown) (no date) (unknown) (unknown) : 1965 Acct:[id number] (units unknown) (unknown) (unknown) (no date) (unknown) (unknown) Date of Service: 07/24/22 (units unknown) (unknown) (unknown) (no date) (unknown) (unknown) Departure (units unknown) (unknown) (unknown) (no date) (unknown) (unknown) Discharge Plan (units unknown) (unknown) (unknown) (no date) (unknown) (unknown) ER Physician: Rufino Solorzano D.O. (units unknown) (unknown) (unknown) (no date) (unknown) (unknown) Emergency Report (units unknown) (unknown) (unknown) (no date) (unknown) (unknown) General (units unknown) (unknown) (unknown) (no date) (unknown) (unknown) HPI - General Adult (units unknown) (unknown) (unknown) (no date) (unknown) (unknown) [address] [address] (units unknown) (unknown) (unknown) (no date) (unknown) (unknown) Patient History (units unknown) (unknown) (unknown) (no date) (unknown) (unknown) Patient: Ester Benavides MR#: [id number] (units unknown) (unknown) (unknown) (no date) (unknown) (unknown) Referrals: (units unknown) (unknown) (unknown) (no date) (unknown) (unknown) Related Data (units unknown) (unknown) (unknown) (no date) (unknown) (unknown) Signed By: (units unknown) (unknown) (unknown) (no date) (unknown) (unknown) Social History (Updated 07/06/21 @ 14:34 by Rfuino Solorzano DO) (units unknown) (unknown) (unknown) (no date) (unknown) (unknown) Stated complaint: Sob, 'congestive heart failure' per pt (units unknown) (unknown) (unknown) (no date) (unknown) (unknown) Time Seen by Provider: 07/24/22 12:04 (units unknown) (unknown) (unknown) (no date) (unknown) (unknown) Rohini Ceron PA-C [Primary Care Provider] (units unknown) (unknown) (unknown) (no date) (unknown) (unknown) acetaminophen [From Midol] Allergy Verified 07/06/21 13:33 (units unknown) (unknown) (unknown) (no date) (unknown) (unknown) codeine Allergy Verified 07/06/21 13:34 (units unknown) (unknown) (unknown) (no date) (unknown) (unknown) erythromycin base Allergy Verified 07/06/21 13:34 (units unknown) (unknown) (unknown) (no date) (unknown) (unknown) lives independently: Yes (units unknown) (unknown) (unknown) (no date) (unknown) (unknown) pamabrom [From Midol ] Allergy Verified 07/06/21 13:33 (units unknown) (unknown) Result panel 632 (unknown) (no date) (unknown) (unknown) > 40 mmol/l (unknown) (unknown) (no date) (unknown) (unknown) > 40 mmol/l (unknown) (unknown) (no date) (unknown) (unknown) > 60 ml/min (unknown) (unknown) (no date) (unknown) (unknown) > 60 ml/min (unknown) (unknown) (no date) (unknown) (unknown) 0.7 mg/dl (unknown) (unknown) (no date) (unknown) (unknown) 0.80 mg/dl (unknown) (unknown) (no date) (unknown) (unknown) 1.2 (units unknown) (unknown) (unknown) (no date) (unknown) (unknown) 136 mmol/l (unknown) (unknown) (no date) (unknown) (unknown) 2.2 mmol/l (unknown) (unknown) (no date) (unknown) (unknown) 248 mg/dl (unknown) (unknown) (no date) (unknown) (unknown) 248 mg/dl (unknown) (unknown) (no date) (unknown) (unknown) 3.2 g/dl (unknown) (unknown) (no date) (unknown) (unknown) 3.8 g/dl (unknown) (unknown) (no date) (unknown) (unknown) 31 iu/l (unknown) (unknown) (no date) (unknown) (unknown) 36 u/l (unknown) (unknown) (no date) (unknown) (unknown) 4.1 mmol/l (unknown) (unknown) (no date) (unknown) (unknown) 41 mg/dl (unknown) (unknown) (no date) (unknown) (unknown) 43 u/l (unknown) (unknown) (no date) (unknown) (unknown) 51.3 (units unknown) (unknown) (unknown) (no date) (unknown) (unknown) 7.0 g/dl (unknown) (unknown) (no date) (unknown) (unknown) 74 iu/l (unknown) (unknown) (no date) (unknown) (unknown) 83 u/l (unknown) (unknown) (no date) (unknown) (unknown) 9.5 mg/dl (unknown) (unknown) (no date) (unknown) (unknown) 90 mmol/l (unknown) (unknown) (no date) (unknown) (unknown) Test not performed % (unknown) (unknown) (no date) (unknown) (unknown) Test not performed % (unknown) (unknown) (no date) (unknown) (unknown) Test not performed ng/ml (unknown) (unknown) (no date) (unknown) (unknown) Test not performed ng/ml (unknown) Result panel 633 (unknown) (no date) (unknown) (unknown) > 60 ml/min (unknown) (unknown) (no date) (unknown) (unknown) > 60 ml/min (unknown) (unknown) (no date) (unknown) (unknown) 0 /ul (unknown) (unknown) (no date) (unknown) (unknown) 0 /ul (unknown) (unknown) (no date) (unknown) (unknown) 0.0 % (unknown) (unknown) (no date) (unknown) (unknown) 0.1 % (unknown) (unknown) (no date) (unknown) (unknown) 0.7 mg/dl (unknown) (unknown) (no date) (unknown) (unknown) 0.80 mg/dl (unknown) (unknown) (no date) (unknown) (unknown) 1.2 (units unknown) (unknown) (unknown) (no date) (unknown) (unknown) 1000 /ul (unknown) (unknown) (no date) (unknown) (unknown) 136 mmol/l (unknown) (unknown) (no date) (unknown) (unknown) 14.0 % (unknown) (unknown) (no date) (unknown) (unknown) 1400 /ul (unknown) (unknown) (no date) (unknown) (unknown) 15.8 g/dl (unknown) (unknown) (no date) (unknown) (unknown) 11251 /ul (unknown) (unknown) (no date) (unknown) (unknown) 20.6 x10 3/ul (unknown) (unknown) (no date) (unknown) (unknown) 248 mg/dl (unknown) (unknown) (no date) (unknown) (unknown) 248 mg/dl (unknown) (unknown) (no date) (unknown) (unknown) 3.2 g/dl (unknown) (unknown) (no date) (unknown) (unknown) 3.8 g/dl (unknown) (unknown) (no date) (unknown) (unknown) 30.9 pg (unknown) (unknown) (no date) (unknown) (unknown) 31 iu/l (unknown) (unknown) (no date) (unknown) (unknown) 32.6 % (unknown) (unknown) (no date) (unknown) (unknown) 320 x10 3/ul (unknown) (unknown) (no date) (unknown) (unknown) 36 u/l (unknown) (unknown) (no date) (unknown) (unknown) 38 mmol/l (unknown) (unknown) (no date) (unknown) (unknown) 4.1 mmol/l (unknown) (unknown) (no date) (unknown) (unknown) 41 mg/dl (unknown) (unknown) (no date) (unknown) (unknown) 43 u/l (unknown) (unknown) (no date) (unknown) (unknown) 48.5 % (unknown) (unknown) (no date) (unknown) (unknown) 5.0 % (unknown) (unknown) (no date) (unknown) (unknown) 5.11 x10 6/ul (unknown) (unknown) (no date) (unknown) (unknown) 51.3 (units unknown) (unknown) (unknown) (no date) (unknown) (unknown) 7.0 % (unknown) (unknown) (no date) (unknown) (unknown) 7.0 g/dl (unknown) (unknown) (no date) (unknown) (unknown) 74 iu/l (unknown) (unknown) (no date) (unknown) (unknown) 83 u/l (unknown) (unknown) (no date) (unknown) (unknown) 87.9 % (unknown) (unknown) (no date) (unknown) (unknown) 9.5 mg/dl (unknown) (unknown) (no date) (unknown) (unknown) 90 mmol/l (unknown) (unknown) (no date) (unknown) (unknown) 94.8 fl (unknown) (unknown) (no date) (unknown) (unknown) Test not performed % (unknown) (unknown) (no date) (unknown) (unknown) Test not performed % (unknown) (unknown) (no date) (unknown) (unknown) Test not performed ng/ml (unknown) (unknown) (no date) (unknown) (unknown) Test not performed ng/ml (unknown) Result panel 634 (unknown) (no date) (unknown) (unknown) (no value) (units unknown) (unknown) (unknown) (no date) (unknown) (unknown) 07/24/22 12:06 (units unknown) (unknown) (unknown) (no date) (unknown) (unknown) 07/24/22 12:11 (units unknown) (unknown) (unknown) (no date) (unknown) (unknown) 07/24/22 (units unknown) (unknown) (unknown) (no date) (unknown) (unknown) 11:50 07/24/22 (units unknown) (unknown) (unknown) (no date) (unknown) (unknown) 12:18 (units unknown) (unknown) (unknown) (no date) (unknown) (unknown) [id number] (units unknown) (unknown) (unknown) (no date) (unknown) (unknown) Age/Sex: 57 / F (units unknown) (unknown) (unknown) (no date) (unknown) (unknown) Albuterol/Ipratropiu m (Albuterol/Ipratropiu m 3 Ml Ampul) 3 ml INH NOW ONE (units unknown) (unknown) (unknown) (no date) (unknown) (unknown) Allergies (units unknown) (unknown) (unknown) (no date) (unknown) (unknown) Allergy/AdvReac Type Severity Reaction Status Date / Time (units unknown) (unknown) (unknown) (no date) (unknown) (unknown) Appearance: disheveled (units unknown) (unknown) (unknown) (no date) (unknown) (unknown) Attestation: I personally reviewed and interpreted this ECG as follows: (units unknown) (unknown) (unknown) (no date) (unknown) (unknown) Auscultation: rhonch i and wheezes (units unknown) (unknown) (unknown) (no date) (unknown) (unknown) Blood Pressure 124/6 7 07/24/22 11:50 (units unknown) (unknown) (unknown) (no date) (unknown) (unknown) Blood Pressure 124/67 (units unknown) (unknown) (unknown) (no date) (unknown) (unknown) COPD (chronic obstructive pulmonary disease) (units unknown) (unknown) (unknown) (no date) (unknown) (unknown) Cardio (units unknown) (unknown) (unknown) (no date) (unknown) (unknown) Chief complaint: Shortness of Breath/Dyspnea (units unknown) (unknown) (unknown) (no date) (unknown) (unknown) Complete Blood Count AUTO DIFF Stat (units unknown) (unknown) (unknown) (no date) (unknown) (unknown) Comprehensive Metabolic Panel Stat (units unknown) (unknown) (unknown) (no date) (unknown) (unknown) Const (units unknown) (unknown) (unknown) (no date) (unknown) (unknown) Course (units unknown) (unknown) (unknown) (no date) (unknown) (unknown) : 1965 Acct:[id number] (units unknown) (unknown) (unknown) (no date) (unknown) (unknown) Date of Service: 07/24/22 (units unknown) (unknown) (unknown) (no date) (unknown) (unknown) Departure (units unknown) (unknown) (unknown) (no date) (unknown) (unknown) Discharge Plan (units unknown) (unknown) (unknown) (no date) (unknown) (unknown) Discontinued Medications (units unknown) (unknown) (unknown) (no date) (unknown) (unknown) Documented By: JZ (units unknown) (unknown) (unknown) (no date) (unknown) (unknown) ECG Data (units unknown) (unknown) (unknown) (no date) (unknown) (unknown) ED Orders (units unknown) (unknown) (unknown) (no date) (unknown) (unknown) EKG-12 Lead Stat (units unknown) (unknown) (unknown) (no date) (unknown) (unknown) ER Physician: Rufino Solorzano D.O. (units unknown) (unknown) (unknown) (no date) (unknown) (unknown) Effort + Inspection: labored, respiratory distress and tachypneic (units unknown) (unknown) (unknown) (no date) (unknown) (unknown) Emergency Report (units unknown) (unknown) (unknown) (no date) (unknown) (unknown) Exam (units unknown) (unknown) (unknown) (no date) (unknown) (unknown) Extrem (units unknown) (unknown) (unknown) (no date) (unknown) (unknown) Fraction of Inspired Oxygen 36 (units unknown) (unknown) (unknown) (no date) (unknown) (unknown) GI (units unknown) (unknown) (unknown) (no date) (unknown) (unknown) General (units unknown) (unknown) (unknown) (no date) (unknown) (unknown) General: No edema (units unknown) (unknown) (unknown) (no date) (unknown) (unknown) General: cooperative and ill appearing (units unknown) (unknown) (unknown) (no date) (unknown) (unknown) General: no rashes o r lesions noted (units unknown) (unknown) (unknown) (no date) (unknown) (unknown) General: patient alert, patient awake and moves all extremities (units unknown) (unknown) (unknown) (no date) (unknown) (unknown) Generally just does not feel very well. No abdominal pain. No lower extremity (units unknown) (unknown) (unknown) (no date) (unknown) (unknown) HENMT (units unknown) (unknown) (unknown) (no date) (unknown) (unknown) HPI - General Adult (units unknown) (unknown) (unknown) (no date) (unknown) (unknown) HPI narrative: (units unknown) (unknown) (unknown) (no date) (unknown) (unknown) Head: normal to inspection and normocephalic (units unknown) (unknown) (unknown) (no date) (unknown) (unknown) History of Present Illness (units unknown) (unknown) (unknown) (no date) (unknown) (unknown) Initial Vital Signs (units unknown) (unknown) (unknown) (no date) (unknown) (unknown) Initial Vital Signs: (units unknown) (unknown) (unknown) (no date) (unknown) (unknown) Inspection: normal t o inspection and non-distended (units unknown) (unknown) (unknown) (no date) (unknown) (unknown) Interpretation: (units unknown) (unknown) (unknown) (no date) (unknown) (unknown) [address] [address] (units unknown) (unknown) (unknown) (no date) (unknown) (unknown) Lab Data (units unknown) (unknown) (unknown) (no date) (unknown) (unknown) Lactate (Lactic Acid ) Stat (units unknown) (unknown) (unknown) (no date) (unknown) (unknown) Last Admin: 07/24/22 12:18 Dose: 3 ml (units unknown) (unknown) (unknown) (no date) (unknown) (unknown) Left bundle branch block (units unknown) (unknown) (unknown) (no date) (unknown) (unknown) Limitations: no limitations (units unknown) (unknown) (unknown) (no date) (unknown) (unknown) Lipase Stat (units unknown) (unknown) (unknown) (no date) (unknown) (unknown) Medical Decision Making (units unknown) (unknown) (unknown) (no date) (unknown) (unknown) Medical History (units unknown) (unknown) (unknown) (no date) (unknown) (unknown) Mode of arrival: Family Vehicle (units unknown) (unknown) (unknown) (no date) (unknown) (unknown) NT-proBNP (BNP-Adult 18+) Stat (units unknown) (unknown) (unknown) (no date) (unknown) (unknown) Neuro (units unknown) (unknown) (unknown) (no date) (unknown) (unknown) No ST T wave changes (units unknown) (unknown) (unknown) (no date) (unknown) (unknown) Ordered: (units unknown) (unknown) (unknown) (no date) (unknown) (unknown) Orders (units unknown) (unknown) (unknown) (no date) (unknown) (unknown) Oxygen Delivery Method Room Air 07/24/22 11:50 (units unknown) (unknown) (unknown) (no date) (unknown) (unknown) Oxygen Delivery Method Room Air Nasal Cannula (units unknown) (unknown) (unknown) (no date) (unknown) (unknown) Oxygen Flow Rate 4 (units unknown) (unknown) (unknown) (no date) (unknown) (unknown) Patient History (units unknown) (unknown) (unknown) (no date) (unknown) (unknown) Patient is a 57-year-old female. She states she is a history of COPD. Is on (units unknown) (unknown) (unknown) (no date) (unknown) (unknown) Patient: Ester Benavides MR#: [id number] (units unknown) (unknown) (unknown) (no date) (unknown) (unknown) Procalcitonin Stat (units unknown) (unknown) (unknown) (no date) (unknown) (unknown) Psych (units unknown) (unknown) (unknown) (no date) (unknown) (unknown) Pulse Oximetry 78 L 07/24/22 11:50 (units unknown) (unknown) (unknown) (no date) (unknown) (unknown) Pulse Oximetry 78 L 89 L (units unknown) (unknown) (unknown) (no date) (unknown) (unknown) Pulse Rate 73 07/24/22 11:50 (units unknown) (unknown) (unknown) (no date) (unknown) (unknown) Pulse Rate 73 89 (units unknown) (unknown) (unknown) (no date) (unknown) (unknown) ROS Unobtainable: Al l systems reviewed + are unremarkable except as noted in HPI (units unknown) (unknown) (unknown) (no date) (unknown) (unknown) RT Consult Eval and Treat Now (units unknown) (unknown) (unknown) (no date) (unknown) (unknown) Rate: regular rate (units unknown) (unknown) (unknown) (no date) (unknown) (unknown) Referrals: (units unknown) (unknown) (unknown) (no date) (unknown) (unknown) Related Data (units unknown) (unknown) (unknown) (no date) (unknown) (unknown) Resp (units unknown) (unknown) (unknown) (no date) (unknown) (unknown) Respiratory Panel (Film Array) Stat (units unknown) (unknown) (unknown) (no date) (unknown) (unknown) Respiratory Rate 24 07/24/22 11:50 (units unknown) (unknown) (unknown) (no date) (unknown) (unknown) Respiratory Rate 24 30 H (units unknown) (unknown) (unknown) (no date) (unknown) (unknown) Review of Systems (units unknown) (unknown) (unknown) (no date) (unknown) (unknown) Rhythm: regular rhythm (units unknown) (unknown) (unknown) (no date) (unknown) (unknown) Signed By: (units unknown) (unknown) (unknown) (no date) (unknown) (unknown) Sinus rhythm (units unknown) (unknown) (unknown) (no date) (unknown) (unknown) Skin (units unknown) (unknown) (unknown) (no date) (unknown) (unknown) Smoking Status: Current every day smoker (units unknown) (unknown) (unknown) (no date) (unknown) (unknown) Social History (units unknown) (unknown) (unknown) (no date) (unknown) (unknown) Source: patient (units unknown) (unknown) (unknown) (no date) (unknown) (unknown) Stated complaint: Sob, 'congestive heart failure' per pt (units unknown) (unknown) (unknown) (no date) (unknown) (unknown) Stop: 07/24/22 12:11 (units unknown) (unknown) (unknown) (no date) (unknown) (unknown) Temperature 98.1 F 07/24/22 11:50 (units unknown) (unknown) (unknown) (no date) (unknown) (unknown) Temperature 98.1 F (units unknown) (unknown) (unknown) (no date) (unknown) (unknown) This morning she lef t would be [facility] against medical advice after (units unknown) (unknown) (unknown) (no date) (unknown) (unknown) Time Seen by Provider: 07/24/22 12:04 (units unknown) (unknown) (unknown) (no date) (unknown) (unknown) Troponin + CK Cardia c Panel Stat (units unknown) (unknown) (unknown) (no date) (unknown) (unknown) Ventricular rate is 66 (units unknown) (unknown) (unknown) (no date) (unknown) (unknown) Vital Signs - 8 hr (units unknown) (unknown) (unknown) (no date) (unknown) (unknown) Vital Signs (units unknown) (unknown) (unknown) (no date) (unknown) (unknown) Vital signs: (units unknown) (unknown) (unknown) (no date) (unknown) (unknown) XR chest 1V Stat (units unknown) (unknown) (unknown) (no date) (unknown) (unknown) Rohini Ceron PA-C [Primary Care Provider] (units unknown) (unknown) (unknown) (no date) (unknown) (unknown) [Embedded Image Not Available] (units unknown) (unknown) (unknown) (no date) (unknown) (unknown) acetaminophen [From Midol] Allergy Verified 07/06/21 13:33 (units unknown) (unknown) (unknown) (no date) (unknown) (unknown) and below (units unknown) (unknown) (unknown) (no date) (unknown) (unknown) codeine Allergy Verified 07/06/21 13:34 (units unknown) (unknown) (unknown) (no date) (unknown) (unknown) describes shortness of breath and chest discomfort. No abdominal pain. (units unknown) (unknown) (unknown) (no date) (unknown) (unknown) erythromycin base Allergy Verified 07/06/21 13:34 (units unknown) (unknown) (unknown) (no date) (unknown) (unknown) exacerbation/CHF. I am not 100% convinced this. We have called to request (units unknown) (unknown) (unknown) (no date) (unknown) (unknown) from the hospital he r oxygen saturations were in the 70s. (units unknown) (unknown) (unknown) (no date) (unknown) (unknown) getting any better. There was a conflict with the providers so she decided to (units unknown) (unknown) (unknown) (no date) (unknown) (unknown) home oxygen but only occasionally. Also reports a history of heart failure. (units unknown) (unknown) (unknown) (no date) (unknown) (unknown) leave Against Medica l Advice. She came to this emergency department. Here she (units unknown) (unknown) (unknown) (no date) (unknown) (unknown) lives independently: Yes (units unknown) (unknown) (unknown) (no date) (unknown) (unknown) tereza [From [facility] ] Allergy Verified 07/06/21 13:33 (units unknown) (unknown) (unknown) (no date) (unknown) (unknown) records however what the patient states was that she was receiving nebulizer (units unknown) (unknown) (unknown) (no date) (unknown) (unknown) spending approximately 5 days in the hospital for what sounds like a COPD (units unknown) (unknown) (unknown) (no date) (unknown) (unknown) swelling. Patient wa s hypoxic upon arrival. Apparently when she was discharged (units unknown) (unknown) (unknown) (no date) (unknown) (unknown) treatments and was also on ?water restriction'. She states that she was not (units unknown) (unknown) Result panel 635 (unknown) (no date) (unknown) (unknown) > 60 ml/min (unknown) (unknown) (no date) (unknown) (unknown) > 60 ml/min (unknown) (unknown) (no date) (unknown) (unknown) < 0.012 ng/ml (unknown) (unknown) (no date) (unknown) (unknown) < 0.012 ng/ml (unknown) (unknown) (no date) (unknown) (unknown) 0.7 mg/dl (unknown) (unknown) (no date) (unknown) (unknown) 0.80 mg/dl (unknown) (unknown) (no date) (unknown) (unknown) 1.2 (units unknown) (unknown) (unknown) (no date) (unknown) (unknown) 136 mmol/l (unknown) (unknown) (no date) (unknown) (unknown) 248 mg/dl (unknown) (unknown) (no date) (unknown) (unknown) 248 mg/dl (unknown) (unknown) (no date) (unknown) (unknown) 2860 pg/ml (unknown) (unknown) (no date) (unknown) (unknown) 2860 pg/ml (unknown) (unknown) (no date) (unknown) (unknown) 3.2 g/dl (unknown) (unknown) (no date) (unknown) (unknown) 3.8 g/dl (unknown) (unknown) (no date) (unknown) (unknown) 31 iu/l (unknown) (unknown) (no date) (unknown) (unknown) 36 u/l (unknown) (unknown) (no date) (unknown) (unknown) 38 mmol/l (unknown) (unknown) (no date) (unknown) (unknown) 4.1 mmol/l (unknown) (unknown) (no date) (unknown) (unknown) 41 mg/dl (unknown) (unknown) (no date) (unknown) (unknown) 43 u/l (unknown) (unknown) (no date) (unknown) (unknown) 51.3 (units unknown) (unknown) (unknown) (no date) (unknown) (unknown) 7.0 g/dl (unknown) (unknown) (no date) (unknown) (unknown) 74 iu/l (unknown) (unknown) (no date) (unknown) (unknown) 83 u/l (unknown) (unknown) (no date) (unknown) (unknown) 9.5 mg/dl (unknown) (unknown) (no date) (unknown) (unknown) 90 mmol/l (unknown) (unknown) (no date) (unknown) (unknown) Test not performed % (unknown) (unknown) (no date) (unknown) (unknown) Test not performed % (unknown) (unknown) (no date) (unknown) (unknown) Test not performed ng/ml (unknown) (unknown) (no date) (unknown) (unknown) Test not performed ng/ml (unknown) Result panel 636 (unknown) (no date) (unknown) (unknown) > 60 ml/min (unknown) (unknown) (no date) (unknown) (unknown) > 60 ml/min (unknown) (unknown) (no date) (unknown) (unknown) < 0.012 ng/ml (unknown) (unknown) (no date) (unknown) (unknown) < 0.012 ng/ml (unknown) (unknown) (no date) (unknown) (unknown) 0.06 ng/ml (unknown) (unknown) (no date) (unknown) (unknown) 0.06 ng/ml (unknown) (unknown) (no date) (unknown) (unknown) 0.7 mg/dl (unknown) (unknown) (no date) (unknown) (unknown) 0.80 mg/dl (unknown) (unknown) (no date) (unknown) (unknown) 1.2 (units unknown) (unknown) (unknown) (no date) (unknown) (unknown) 136 mmol/l (unknown) (unknown) (no date) (unknown) (unknown) 248 mg/dl (unknown) (unknown) (no date) (unknown) (unknown) 248 mg/dl (unknown) (unknown) (no date) (unknown) (unknown) 2860 pg/ml (unknown) (unknown) (no date) (unknown) (unknown) 2860 pg/ml (unknown) (unknown) (no date) (unknown) (unknown) 3.2 g/dl (unknown) (unknown) (no date) (unknown) (unknown) 3.8 g/dl (unknown) (unknown) (no date) (unknown) (unknown) 31 iu/l (unknown) (unknown) (no date) (unknown) (unknown) 36 u/l (unknown) (unknown) (no date) (unknown) (unknown) 38 mmol/l (unknown) (unknown) (no date) (unknown) (unknown) 4.1 mmol/l (unknown) (unknown) (no date) (unknown) (unknown) 41 mg/dl (unknown) (unknown) (no date) (unknown) (unknown) 43 u/l (unknown) (unknown) (no date) (unknown) (unknown) 51.3 (units unknown) (unknown) (unknown) (no date) (unknown) (unknown) 7.0 g/dl (unknown) (unknown) (no date) (unknown) (unknown) 74 iu/l (unknown) (unknown) (no date) (unknown) (unknown) 83 u/l (unknown) (unknown) (no date) (unknown) (unknown) 9.5 mg/dl (unknown) (unknown) (no date) (unknown) (unknown) 90 mmol/l (unknown) (unknown) (no date) (unknown) (unknown) Test not performed % (unknown) (unknown) (no date) (unknown) (unknown) Test not performed % (unknown) (unknown) (no date) (unknown) (unknown) Test not performed ng/ml (unknown) (unknown) (no date) (unknown) (unknown) Test not performed ng/ml (unknown) Result panel 637 (unknown) (no date) (unknown) (unknown) (no value) (units unknown) (unknown) (unknown) (no date) (unknown) (unknown) 07/24/22 07/24/22 07/24/22 Range/Units (units unknown) (unknown) (unknown) (no date) (unknown) (unknown) 07/24/22 12:06 (units unknown) (unknown) (unknown) (no date) (unknown) (unknown) 07/24/22 12:11 (units unknown) (unknown) (unknown) (no date) (unknown) (unknown) 07/24/22 (units unknown) (unknown) (unknown) (no date) (unknown) (unknown) 11:50 07/24/22 (units unknown) (unknown) (unknown) (no date) (unknown) (unknown) 12:06 12:06 12:06 (units unknown) (unknown) (unknown) (no date) (unknown) (unknown) 12:18 (units unknown) (unknown) (unknown) (no date) (unknown) (unknown) [address] (units unknown) (unknown) (unknown) (no date) (unknown) (unknown) ? (units unknown) (unknown) (unknown) (no date) (unknown) (unknown) ALT 74 H (<35) IU/L (units unknown) (unknown) (unknown) (no date) (unknown) (unknown) AST 31 (14-36) IU/L (units unknown) (unknown) (unknown) (no date) (unknown) (unknown) Age/Sex: 57 / F (units unknown) (unknown) (unknown) (no date) (unknown) (unknown) Albumin 3.8 (3.5-5.0 ) g/dL (units unknown) (unknown) (unknown) (no date) (unknown) (unknown) Albumin/Globulin Ratio 1.2 (1.0-2.8) (units unknown) (unknown) (unknown) (no date) (unknown) (unknown) Albuterol/Ipratropiu m (Albuterol/Ipratropiu m 3 Ml Ampul) 3 ml INH NOW ONE (units unknown) (unknown) (unknown) (no date) (unknown) (unknown) Alkaline Phosphatase 83 (38-126) U/L (units unknown) (unknown) (unknown) (no date) (unknown) (unknown) Allergies (units unknown) (unknown) (unknown) (no date) (unknown) (unknown) Allergy/AdvReac Type Severity Reaction Status Date / Time (units unknown) (unknown) (unknown) (no date) (unknown) (unknown) Appearance: disheveled (units unknown) (unknown) (unknown) (no date) (unknown) (unknown) Attestation: I personally reviewed and interpreted this ECG as follows: (units unknown) (unknown) (unknown) (no date) (unknown) (unknown) Auscultation: rhonch i and wheezes (units unknown) (unknown) (unknown) (no date) (unknown) (unknown) BUN 41 H (7-17) mg/dL (units unknown) (unknown) (unknown) (no date) (unknown) (unknown) BUN/Creatinine Ratio 51.3 H (6-22) (units unknown) (unknown) (unknown) (no date) (unknown) (unknown) Baso # (Auto) 0 (0-100) /uL (units unknown) (unknown) (unknown) (no date) (unknown) (unknown) Baso % (Auto) 0.1 (0-2) % (units unknown) (unknown) (unknown) (no date) (unknown) (unknown) Blood Pressure 124/6 7 07/24/22 11:50 (units unknown) (unknown) (unknown) (no date) (unknown) (unknown) Blood Pressure 124/67 (units unknown) (unknown) (unknown) (no date) (unknown) (unknown) Bones and chest wall:? No suspicious bony lesions.? Overlying soft tissues (units unknown) (unknown) (unknown) (no date) (unknown) (unknown) CK-MB (CK-2) Rel Index TNP (units unknown) (unknown) (unknown) (no date) (unknown) (unknown) CK-MB (CK-2) TNP (units unknown) (unknown) (unknown) (no date) (unknown) (unknown) COMPARISON:? None. (units unknown) (unknown) (unknown) (no date) (unknown) (unknown) COPD (chronic obstructive pulmonary disease) (units unknown) (unknown) (unknown) (no date) (unknown) (unknown) Calcium 9.5 (8.4-10.2) mg/dL (units unknown) (unknown) (unknown) (no date) (unknown) (unknown) Carbon Dioxide 38 H (22-32) mmol/L (units unknown) (unknown) (unknown) (no date) (unknown) (unknown) Cardio (units unknown) (unknown) (unknown) (no date) (unknown) (unknown) Chest x-ray: (units unknown) (unknown) (unknown) (no date) (unknown) (unknown) Chief complaint: Shortness of Breath/Dyspnea (units unknown) (unknown) (unknown) (no date) (unknown) (unknown) Chloride 90 L (98-107) mmol/L (units unknown) (unknown) (unknown) (no date) (unknown) (unknown) Complete Blood Count AUTO DIFF Stat (units unknown) (unknown) (unknown) (no date) (unknown) (unknown) Comprehensive Metabolic Panel Stat (units unknown) (unknown) (unknown) (no date) (unknown) (unknown) Const (units unknown) (unknown) (unknown) (no date) (unknown) (unknown) Course (units unknown) (unknown) (unknown) (no date) (unknown) (unknown) Creatinine 0.80 (0.52-1.04) mg/dL (units unknown) (unknown) (unknown) (no date) (unknown) (unknown) : 1965 Acct:[id number] (units unknown) (unknown) (unknown) (no date) (unknown) (unknown) Date of Service: 07/24/22 (units unknown) (unknown) (unknown) (no date) (unknown) (unknown) Departure (units unknown) (unknown) (unknown) (no date) (unknown) (unknown) Diffuse (units unknown) (unknown) (unknown) (no date) (unknown) (unknown) Discharge Plan (units unknown) (unknown) (unknown) (no date) (unknown) (unknown) Discontinued Medications (units unknown) (unknown) (unknown) (no date) (unknown) (unknown) Documented By: JZ (units unknown) (unknown) (unknown) (no date) (unknown) (unknown) Documented By: NR (units unknown) (unknown) (unknown) (no date) (unknown) (unknown) ECG Data (units unknown) (unknown) (unknown) (no date) (unknown) (unknown) ED Orders (units unknown) (unknown) (unknown) (no date) (unknown) (unknown) EKG-12 Lead Stat (units unknown) (unknown) (unknown) (no date) (unknown) (unknown) ER Physician: Rufino Solorzano D.O. (units unknown) (unknown) (unknown) (no date) (unknown) (unknown) Effort + Inspection: labored, respiratory distress and tachypneic (units unknown) (unknown) (unknown) (no date) (unknown) (unknown) Emergency Report (units unknown) (unknown) (unknown) (no date) (unknown) (unknown) Eos # (Auto) 0 (0-450) /uL (units unknown) (unknown) (unknown) (no date) (unknown) (unknown) Eos % (Auto) 0.0 L (2-4) % (units unknown) (unknown) (unknown) (no date) (unknown) (unknown) Estimated GFR > 60 (>60) mL/min (units unknown) (unknown) (unknown) (no date) (unknown) (unknown) Exam (units unknown) (unknown) (unknown) (no date) (unknown) (unknown) Extrem (units unknown) (unknown) (unknown) (no date) (unknown) (unknown) FINDINGS:? (units unknown) (unknown) (unknown) (no date) (unknown) (unknown) Fraction of Inspired Oxygen 36 (units unknown) (unknown) (unknown) (no date) (unknown) (unknown) GI (units unknown) (unknown) (unknown) (no date) (unknown) (unknown) General (units unknown) (unknown) (unknown) (no date) (unknown) (unknown) General: No edema (units unknown) (unknown) (unknown) (no date) (unknown) (unknown) General: cooperative and ill appearing (units unknown) (unknown) (unknown) (no date) (unknown) (unknown) General: no rashes o r lesions noted (units unknown) (unknown) (unknown) (no date) (unknown) (unknown) General: patient alert, patient awake and moves all extremities (units unknown) (unknown) (unknown) (no date) (unknown) (unknown) Generally just does not feel very well. No abdominal pain. No lower extremity (units unknown) (unknown) (unknown) (no date) (unknown) (unknown) Globulin 3.2 (1.7-4.1) g/dL (units unknown) (unknown) (unknown) (no date) (unknown) (unknown) Glucose 248 H (70-100) mg/dL (units unknown) (unknown) (unknown) (no date) (unknown) (unknown) HENMT (units unknown) (unknown) (unknown) (no date) (unknown) (unknown) HPI - General Adult (units unknown) (unknown) (unknown) (no date) (unknown) (unknown) HPI narrative: (units unknown) (unknown) (unknown) (no date) (unknown) (unknown) Hct 48.5 H (36-46) % (units unknown) (unknown) (unknown) (no date) (unknown) (unknown) Head: normal to inspection and normocephalic (units unknown) (unknown) (unknown) (no date) (unknown) (unknown) Hgb 15.8 (12.0-16.0) g/dL (units unknown) (unknown) (unknown) (no date) (unknown) (unknown) History of Present Illness (units unknown) (unknown) (unknown) (no date) (unknown) (unknown) IMPRESSION:? Cardiomegaly with pulmonary vascular congestion. (units unknown) (unknown) (unknown) (no date) (unknown) (unknown) INDICATIONS:? SOB (units unknown) (unknown) (unknown) (no date) (unknown) (unknown) Imaging Data (units unknown) (unknown) (unknown) (no date) (unknown) (unknown) Initial Vital Signs (units unknown) (unknown) (unknown) (no date) (unknown) (unknown) Initial Vital Signs: (units unknown) (unknown) (unknown) (no date) (unknown) (unknown) Inspection: normal t o inspection and non-distended (units unknown) (unknown) (unknown) (no date) (unknown) (unknown) Interpretation: (units unknown) (unknown) (unknown) (no date) (unknown) (unknown) [place] [id number] (units unknown) (unknown) (unknown) (no date) (unknown) (unknown) Lab Data (units unknown) (unknown) (unknown) (no date) (unknown) (unknown) Lab Results (units unknown) (unknown) (unknown) (no date) (unknown) (unknown) Lab results reviewed : Yes I reviewed the patient's lab results. (units unknown) (unknown) (unknown) (no date) (unknown) (unknown) Labs: (units unknown) (unknown) (unknown) (no date) (unknown) (unknown) Lactate (Lactic Acid ) Stat (units unknown) (unknown) (unknown) (no date) (unknown) (unknown) Lactate 2.2 H (0.7-2.1) mmol/L (units unknown) (unknown) (unknown) (no date) (unknown) (unknown) Last Admin: 07/24/22 12:18 Dose: 3 ml (units unknown) (unknown) (unknown) (no date) (unknown) (unknown) Last Admin: 07/24/22 12:43 Dose: 125 mg (units unknown) (unknown) (unknown) (no date) (unknown) (unknown) Left bundle branch block (units unknown) (unknown) (unknown) (no date) (unknown) (unknown) Limitations: no limitations (units unknown) (unknown) (unknown) (no date) (unknown) (unknown) Lipase 43 (23-300) U/L (units unknown) (unknown) (unknown) (no date) (unknown) (unknown) Lipase Stat (units unknown) (unknown) (unknown) (no date) (unknown) (unknown) Lungs and pleura:? Lungs are clear.? No pleural effusions or pneumothorax.? (units unknown) (unknown) (unknown) (no date) (unknown) (unknown) Lymph # (Auto) 1000 L (6230-3201) /uL (units unknown) (unknown) (unknown) (no date) (unknown) (unknown) Lymph % (Auto) 5.0 L (25-40) % (units unknown) (unknown) (unknown) (no date) (unknown) (unknown) MCH 30.9 (26-34) PG (units unknown) (unknown) (unknown) (no date) (unknown) (unknown) MCHC 32.6 (30-36) % (units unknown) (unknown) (unknown) (no date) (unknown) (unknown) MCV 94.8 (80-100) fL (units unknown) (unknown) (unknown) (no date) (unknown) (unknown) Mediastinum:? Mediastinal contours appear normal.? Heart size is enlarged.? (units unknown) (unknown) (unknown) (no date) (unknown) (unknown) Medical Decision Making (units unknown) (unknown) (unknown) (no date) (unknown) (unknown) Medical History (units unknown) (unknown) (unknown) (no date) (unknown) (unknown) Methylprednisolone (Methylprednisolone 125 Mg/2 Ml Vial) 125 mg IV NOW ONE (units unknown) (unknown) (unknown) (no date) (unknown) (unknown) Mode of arrival: Family Vehicle (units unknown) (unknown) (unknown) (no date) (unknown) (unknown) [place] # (Auto) 1400 H (0-900) /uL (units unknown) (unknown) (unknown) (no date) (unknown) (unknown) [place] % (Auto) 7.0 (3-14) % (units unknown) (unknown) (unknown) (no date) (unknown) (unknown) NT-Pro-B Natriuret Pep 2860 H (<125) pg/mL (units unknown) (unknown) (unknown) (no date) (unknown) (unknown) NT-proBNP (BNP-Adult 18+) Stat (units unknown) (unknown) (unknown) (no date) (unknown) (unknown) Neuro (units unknown) (unknown) (unknown) (no date) (unknown) (unknown) Neut # (Auto) 36649 H (0845-0744) /uL (units unknown) (unknown) (unknown) (no date) (unknown) (unknown) Neut % (Auto) 87.9 H (50-75) % (units unknown) (unknown) (unknown) (no date) (unknown) (unknown) No ST T wave changes (units unknown) (unknown) (unknown) (no date) (unknown) (unknown) Ordered: (units unknown) (unknown) (unknown) (no date) (unknown) (unknown) Orders (units unknown) (unknown) (unknown) (no date) (unknown) (unknown) Oxygen Delivery Method Room Air 07/24/22 11:50 (units unknown) (unknown) (unknown) (no date) (unknown) (unknown) Oxygen Delivery Method Room Air Nasal Cannula (units unknown) (unknown) (unknown) (no date) (unknown) (unknown) Oxygen Flow Rate 4 (units unknown) (unknown) (unknown) (no date) (unknown) (unknown) PROCEDURE:? XR CHEST 1V (units unknown) (unknown) (unknown) (no date) (unknown) (unknown) Patient History (units unknown) (unknown) (unknown) (no date) (unknown) (unknown) Patient is a 57-year-old female. She states she is a history of COPD. Is on (units unknown) (unknown) (unknown) (no date) (unknown) (unknown) Patient: Ester Benavides MR#: [id number] (units unknown) (unknown) (unknown) (no date) (unknown) (unknown) Plt Count 320 (150-400) X103/uL (units unknown) (unknown) (unknown) (no date) (unknown) (unknown) Potassium 4.1 (3.4-5.1) mmol/L (units unknown) (unknown) (unknown) (no date) (unknown) (unknown) Procalcitonin 0.06 (<0.5) ng/mL (units unknown) (unknown) (unknown) (no date) (unknown) (unknown) Procalcitonin Stat (units unknown) (unknown) (unknown) (no date) (unknown) (unknown) Psych (units unknown) (unknown) (unknown) (no date) (unknown) (unknown) Pulse Oximetry 78 L 07/24/22 11:50 (units unknown) (unknown) (unknown) (no date) (unknown) (unknown) Pulse Oximetry 78 L 89 L (units unknown) (unknown) (unknown) (no date) (unknown) (unknown) Pulse Rate 73 07/24/22 11:50 (units unknown) (unknown) (unknown) (no date) (unknown) (unknown) Pulse Rate 73 89 (units unknown) (unknown) (unknown) (no date) (unknown) (unknown) RBC 5.11 (4.0-5.2) X106/uL (units unknown) (unknown) (unknown) (no date) (unknown) (unknown) RDW 14.0 (11.6-14.8) % (units unknown) (unknown) (unknown) (no date) (unknown) (unknown) ROS Unobtainable: Al l systems reviewed + are unremarkable except as noted in HPI (units unknown) (unknown) (unknown) (no date) (unknown) (unknown) RT Consult Eval and Treat Now (units unknown) (unknown) (unknown) (no date) (unknown) (unknown) Radiologist's Impression: (units unknown) (unknown) (unknown) (no date) (unknown) (unknown) Rate: regular rate (units unknown) (unknown) (unknown) (no date) (unknown) (unknown) Referrals: (units unknown) (unknown) (unknown) (no date) (unknown) (unknown) Related Data (units unknown) (unknown) (unknown) (no date) (unknown) (unknown) Resp (units unknown) (unknown) (unknown) (no date) (unknown) (unknown) Respiratory Panel (Film Array) Stat (units unknown) (unknown) (unknown) (no date) (unknown) (unknown) Respiratory Rate 24 07/24/22 11:50 (units unknown) (unknown) (unknown) (no date) (unknown) (unknown) Respiratory Rate 24 30 H (units unknown) (unknown) (unknown) (no date) (unknown) (unknown) Review of Systems (units unknown) (unknown) (unknown) (no date) (unknown) (unknown) Rhythm: regular rhythm (units unknown) (unknown) (unknown) (no date) (unknown) (unknown) Signed By: (units unknown) (unknown) (unknown) (no date) (unknown) (unknown) Sinus rhythm (units unknown) (unknown) (unknown) (no date) (unknown) (unknown) Skin (units unknown) (unknown) (unknown) (no date) (unknown) (unknown) Smoking Status: Current every day smoker (units unknown) (unknown) (unknown) (no date) (unknown) (unknown) Social History (units unknown) (unknown) (unknown) (no date) (unknown) (unknown) Sodium 136 L (137-145) mmol/L (units unknown) (unknown) (unknown) (no date) (unknown) (unknown) Source: patient (units unknown) (unknown) (unknown) (no date) (unknown) (unknown) Stated complaint: Sob, 'congestive heart failure' per pt (units unknown) (unknown) (unknown) (no date) (unknown) (unknown) Stop: 07/24/22 12:11 (units unknown) (unknown) (unknown) (no date) (unknown) (unknown) Stop: 07/24/22 12:35 (units unknown) (unknown) (unknown) (no date) (unknown) (unknown) Surgical changes and devices:? Left chest wall pacer is seen with an intact (units unknown) (unknown) (unknown) (no date) (unknown) (unknown) TECHNIQUE:? One view of the chest was acquired.? (units unknown) (unknown) (unknown) (no date) (unknown) (unknown) Temperature 98.1 F 07/24/22 11:50 (units unknown) (unknown) (unknown) (no date) (unknown) (unknown) Temperature 98.1 F (units unknown) (unknown) (unknown) (no date) (unknown) (unknown) This morning she lef t [facility] against medical advice after (units unknown) (unknown) (unknown) (no date) (unknown) (unknown) Time Seen by Provider: 07/24/22 12:04 (units unknown) (unknown) (unknown) (no date) (unknown) (unknown) Total Bilirubin 0.7 (0.2-1.3) mg/dL (units unknown) (unknown) (unknown) (no date) (unknown) (unknown) Total Creatine Kinas e 36 (30-135) U/L (units unknown) (unknown) (unknown) (no date) (unknown) (unknown) Total Protein 7.0 (6.3-8.2) g/dL (units unknown) (unknown) (unknown) (no date) (unknown) (unknown) Troponin + CK Cardia c Panel Stat (units unknown) (unknown) (unknown) (no date) (unknown) (unknown) Troponin I < 0.012 (0.01-0.034) ng/mL (units unknown) (unknown) (unknown) (no date) (unknown) (unknown) Ventricular rate is 66 (units unknown) (unknown) (unknown) (no date) (unknown) (unknown) Vital Signs - 8 hr (units unknown) (unknown) (unknown) (no date) (unknown) (unknown) Vital Signs (units unknown) (unknown) (unknown) (no date) (unknown) (unknown) Vital signs: (units unknown) (unknown) (unknown) (no date) (unknown) (unknown) WBC 20.6 H (4.5-11.0 ) X103/uL (units unknown) (unknown) (unknown) (no date) (unknown) (unknown) XR chest 1V Stat (units unknown) (unknown) (unknown) (no date) (unknown) (unknown) Rohini Ceron PA-C [Primary Care Provider] (units unknown) (unknown) (unknown) (no date) (unknown) (unknown) [Embedded Image Not Available] (units unknown) (unknown) (unknown) (no date) (unknown) (unknown) acetaminophen [From Midol] Allergy Verified 07/06/21 13:33 (units unknown) (unknown) (unknown) (no date) (unknown) (unknown) and below (units unknown) (unknown) (unknown) (no date) (unknown) (unknown) appear (units unknown) (unknown) (unknown) (no date) (unknown) (unknown) codeine Allergy Verified 07/06/21 13:34 (units unknown) (unknown) (unknown) (no date) (unknown) (unknown) describes shortness of breath and chest discomfort. No abdominal pain. (units unknown) (unknown) (unknown) (no date) (unknown) (unknown) erythromycin base Allergy Verified 07/06/21 13:34 (units unknown) (unknown) (unknown) (no date) (unknown) (unknown) exacerbation/CHF. I am not 100% convinced this. We have called to request (units unknown) (unknown) (unknown) (no date) (unknown) (unknown) from the hospital he r oxygen saturations were in the 70s. (units unknown) (unknown) (unknown) (no date) (unknown) (unknown) getting any better. There was a conflict with the providers so she decided to (units unknown) (unknown) (unknown) (no date) (unknown) (unknown) home oxygen but only occasionally. Also reports a history of heart failure. (units unknown) (unknown) (unknown) (no date) (unknown) (unknown) lead. (units unknown) (unknown) (unknown) (no date) (unknown) (unknown) leave Against Medica l Advice. She came to this emergency department. Here she (units unknown) (unknown) (unknown) (no date) (unknown) (unknown) lives independently: Yes (units unknown) (unknown) (unknown) (no date) (unknown) (unknown) pamabrom [From Midol ] Allergy Verified 07/06/21 13:33 (units unknown) (unknown) (unknown) (no date) (unknown) (unknown) pulmonary vascular congestion bilaterally. (units unknown) (unknown) (unknown) (no date) (unknown) (unknown) records however what the patient states was that she was receiving nebulizer (units unknown) (unknown) (unknown) (no date) (unknown) (unknown) spending approximately 5 days in the hospital for what sounds like a COPD (units unknown) (unknown) (unknown) (no date) (unknown) (unknown) swelling. Patient shakeel s hypoxic upon arrival. Apparently when she was discharged (units unknown) (unknown) (unknown) (no date) (unknown) (unknown) treatments and was also on ?water restriction'. She states that she was not (units unknown) (unknown) (unknown) (no date) (unknown) (unknown) unremarkable.? (units unknown) (unknown) Result panel [id number] (unknown) (no date) (unknown) (unknown) (no value) (units unknown) (unknown) (unknown) (no date) (unknown) (unknown) 07/24/22 (units unknown) (unknown) (unknown) (no date) (unknown) (unknown) [address] [place] [address] (units unknown) (unknown) (unknown) (no date) (unknown) (unknown) [id number] (units unknown) (unknown) (unknown) (no date) (unknown) (unknown) sev ratio: 0.47 (units unknown) (unknown) (unknown) (no date) (unknown) (unknown) SHARON indexed to BSA (cm2/m2): 0.86 (units unknown) (unknown) (unknown) (no date) (unknown) (unknown) Accession Number: [id number] (units unknown) (unknown) (unknown) (no date) (unknown) (unknown) Age/Sex: 57 / F Date of Service: (units unknown) (unknown) (unknown) (no date) (unknown) (unknown) [place] [id number] (units unknown) (unknown) (unknown) (no date) (unknown) (unknown) Ao V2 VTI: 37.1 cm SHARON(V,D): 1.7 cm2 (units unknown) (unknown) (unknown) (no date) (unknown) (unknown) Ao V2 max: 166.3 cm/sec LVOT Max Alexy: 74.7 cm/sec (units unknown) (unknown) (unknown) (no date) (unknown) (unknown) Ao V2 mean: 128.3 cm/sec LV V1 max P.2 mmHg (units unknown) (unknown) (unknown) (no date) (unknown) (unknown) Ao max P.1 mmHg LV V1 VTI: 17.3 cm (units unknown) (unknown) (unknown) (no date) (unknown) (unknown) Ao mean P.0 mmHg SHARON(I,D): 1.8 cm2 (units unknown) (unknown) (unknown) (no date) (unknown) (unknown) Aortic Valve: The aortic valve opens well. There is no aortic valve (units unknown) (unknown) (unknown) (no date) (unknown) (unknown) Atria: The left atrial size is normal. Right atrial size is normal. There is (units unknown) (unknown) (unknown) (no date) (unknown) (unknown) Comparison is made with the echocardiogram of 01/29/2020. EKG artifact (units unknown) (unknown) (unknown) (no date) (unknown) (unknown) : 1965 Acct:[id number] (units unknown) (unknown) (unknown) (no date) (unknown) (unknown) Doppler Measurements + Calculations (units unknown) (unknown) (unknown) (no date) (unknown) (unknown) E/E' lat: 10.4 (units unknown) (unknown) (unknown) (no date) (unknown) (unknown) E/E' med: 19.5 (units unknown) (unknown) (unknown) (no date) (unknown) (unknown) E/e' average: 15.0 (units unknown) (unknown) (unknown) (no date) (unknown) (unknown) EPSS: 2.2 cm Ao Arch Diam (Prox Trans): 3.0 cm (units unknown) (unknown) (unknown) (no date) (unknown) (unknown) Echocardiography Report (units unknown) (unknown) (unknown) (no date) (unknown) (unknown) Electronically nicole d by: Jack Jesus on 07/25/2022 (units unknown) (unknown) (unknown) (no date) (unknown) (unknown) FS: 15.9 % asc Aorta Diam: 3.4 cm (units unknown) (unknown) (unknown) (no date) (unknown) (unknown) Great Vessels: The aortic root is normal size. The dimensions of the (units unknown) (unknown) (unknown) (no date) (unknown) (unknown) IVSd: 1.1 cm (units unknown) (unknown) (unknown) (no date) (unknown) (unknown) Interpretation Summary (units unknown) (unknown) (unknown) (no date) (unknown) (unknown) [facility] (units unknown) (unknown) (unknown) (no date) (unknown) (unknown) LA A2 area: 20.8 cm2 RA long axis: 5.6 cm (units unknown) (unknown) (unknown) (no date) (unknown) (unknown) LA A4 area: 21.1 cm2 RA area: 19.3 cm2 (units unknown) (unknown) (unknown) (no date) (unknown) (unknown) LA length (vol): 5.5 cm RA vol: 56.8 ml (units unknown) (unknown) (unknown) (no date) (unknown) (unknown) LA vol index: 32.8 ml/m2 IVC diam: 1.2 cm (units unknown) (unknown) (unknown) (no date) (unknown) (unknown) LA vol: 68.4 ml RA : 27.2 ml/m2 (units unknown) (unknown) (unknown) (no date) (unknown) (unknown) LV nagy. diameter/BS A (cm/m2): 3.1 (units unknown) (unknown) (unknown) (no date) (unknown) (unknown) LV sys. diameter/BSA (cm/m2): 2.6 (units unknown) (unknown) (unknown) (no date) (unknown) (unknown) LVIDd: 6.5 cm LVOT diam: 2.2 cm (units unknown) (unknown) (unknown) (no date) (unknown) (unknown) LVIDs: 5.5 cm Ao debby t diam: 2.9 cm (units unknown) (unknown) (unknown) (no date) (unknown) (unknown) LVPWd: 0.87 cm (units unknown) (unknown) (unknown) (no date) (unknown) (unknown) Lat Peak E' Alexy: 7.2 cm/sec (units unknown) (unknown) (unknown) (no date) (unknown) (unknown) Left Ventricle: The left ventricle is moderately dilated. There is mild (units unknown) (unknown) (unknown) (no date) (unknown) (unknown) Loc: AC 210-1 (units unknown) (unknown) (unknown) (no date) (unknown) (unknown) MMode/2D Measurement s + Calculations (units unknown) (unknown) (unknown) (no date) (unknown) (unknown) MV A max alexy: 49.9 cm/sec PA V2 mean: 76.5 cm/sec (units unknown) (unknown) (unknown) (no date) (unknown) (unknown) MV E max alexy: 74.7 cm/sec PA V2 max: 109.6 cm/sec (units unknown) (unknown) (unknown) (no date) (unknown) (unknown) MV E/A: 1.5 PA mean P.5 mmHg (units unknown) (unknown) (unknown) (no date) (unknown) (unknown) MV dec time: 0.24 sec (units unknown) (unknown) (unknown) (no date) (unknown) (unknown) Med Peak E' Alexy: 3.8 cm/sec (units unknown) (unknown) (unknown) (no date) (unknown) (unknown) Mitral Valve: The mitral valve is normal in structure and function. There is (units unknown) (unknown) (unknown) (no date) (unknown) (unknown) Ordering Provider: Hallie Greco MD (units unknown) (unknown) (unknown) (no date) (unknown) (unknown) Patient: Ester Benavides MR#: [id number] (units unknown) (unknown) (unknown) (no date) (unknown) (unknown) Pericardium/ Pleura There is no pericardial effusion. There is no pleural (units unknown) (unknown) (unknown) (no date) (unknown) (unknown) Procedure: A two-dimensional transthoracic echocardiogram with color flow (units unknown) (unknown) (unknown) (no date) (unknown) (unknown) Procedure: EC echo doppler complete (units unknown) (unknown) (unknown) (no date) (unknown) (unknown) Pulmonic Valve: The pulmonic valve is not well visualized. There is no (units unknown) (unknown) (unknown) (no date) (unknown) (unknown) RVD1 (basal): 3.6 cm (units unknown) (unknown) (unknown) (no date) (unknown) (unknown) RVD2 (mid): 2.9 cm (units unknown) (unknown) (unknown) (no date) (unknown) (unknown) Reading Physician:09:48 AM (units unknown) (unknown) (unknown) (no date) (unknown) (unknown) Right Ventricle: The right ventricle is normal size. There is a pacemaker (units unknown) (unknown) (unknown) (no date) (unknown) (unknown) SV(LVOT): 66.8 ml (units unknown) (unknown) (unknown) (no date) (unknown) (unknown) Signed (units unknown) (unknown) (unknown) (no date) (unknown) (unknown) TAPSE: 1.6 cm (units unknown) (unknown) (unknown) (no date) (unknown) (unknown) The ejection fractio n is estimated to be 25-30%. (units unknown) (unknown) (unknown) (no date) (unknown) (unknown) There is a catheter/pacemaker lead seen in the right atrium. (units unknown) (unknown) (unknown) (no date) (unknown) (unknown) There is a trace or physiologic amount of tricuspid regurgitation. Pulmonary (units unknown) (unknown) (unknown) (no date) (unknown) (unknown) There is a trace or physiologic amount of tricuspid regurgitation. (units unknown) (unknown) (unknown) (no date) (unknown) (unknown) There is mild mitral regurgitation. (units unknown) (unknown) (unknown) (no date) (unknown) (unknown) There is moderate to severe global hypokinesis of the left ventricle. Severe (units unknown) (unknown) (unknown) (no date) (unknown) (unknown) Tricuspid Valve: The tricuspid valve is normal in structure and function. (units unknown) (unknown) (unknown) (no date) (unknown) (unknown) _ (units unknown) (unknown) (unknown) (no date) (unknown) (unknown) a catheter/pacemaker lead seen in the right atrium. There is no Doppler (units unknown) (unknown) (unknown) (no date) (unknown) (unknown) and Doppler was performed. The study quality was technically difficult. (units unknown) (unknown) (unknown) (no date) (unknown) (unknown) artery pressures cannot be estimated because of the lack of a measurable TR (units unknown) (unknown) (unknown) (no date) (unknown) (unknown) ascending aorta are normal. The IVC is of normal diameter and collapses (units unknown) (unknown) (unknown) (no date) (unknown) (unknown) be 25-30%. There is moderate to severe global hypokinesis of the left (units unknown) (unknown) (unknown) (no date) (unknown) (unknown) concentric left ventricular hypertrophy. The ejection fraction is estimated to (units unknown) (unknown) (unknown) (no date) (unknown) (unknown) effusion. (units unknown) (unknown) (unknown) (no date) (unknown) (unknown) evidence for an interatrial shunt. (units unknown) (unknown) (unknown) (no date) (unknown) (unknown) greater than 50% wit h a sniff. This suggests a low right atrial pressure of 3 (units unknown) (unknown) (unknown) (no date) (unknown) (unknown) hypokinesisi of the inferior wall and posterolateral wall. (units unknown) (unknown) (unknown) (no date) (unknown) (unknown) jet velocity. (units unknown) (unknown) (unknown) (no date) (unknown) (unknown) lead in the right ventricle. Right ventricular systolic function is mildly (units unknown) (unknown) (unknown) (no date) (unknown) (unknown) mild mitral regurgitation. (units unknown) (unknown) (unknown) (no date) (unknown) (unknown) mm Hg. (units unknown) (unknown) (unknown) (no date) (unknown) (unknown) pulmonic valvular regurgitation. (units unknown) (unknown) (unknown) (no date) (unknown) (unknown) reduced. (units unknown) (unknown) (unknown) (no date) (unknown) (unknown) stenosis. No aortic regurgitation is present. (units unknown) (unknown) (unknown) (no date) (unknown) (unknown) throughout exam. The heart rate ranged between 50-80 bpm during the study. (units unknown) (unknown) (unknown) (no date) (unknown) (unknown) ventricle. (units unknown) (unknown) Result panel 639 (unknown) (no date) (unknown) (unknown) (no value) (units unknown) (unknown) (unknown) (no date) (unknown) (unknown) (past 8 hours): (units unknown) (unknown) (unknown) (no date) (unknown) (unknown) 07/24/22 07/24/22 07/24/22 (units unknown) (unknown) (unknown) (no date) (unknown) (unknown) 07/24/22 12:06 (units unknown) (unknown) (unknown) (no date) (unknown) (unknown) 07/24/22 (units unknown) (unknown) (unknown) (no date) (unknown) (unknown) 11:50 07/24/22 (units unknown) (unknown) (unknown) (no date) (unknown) (unknown) 12:00 (units unknown) (unknown) (unknown) (no date) (unknown) (unknown) 12:06 12:06 12:06 (units unknown) (unknown) (unknown) (no date) (unknown) (unknown) 12:18 07/24/22 (units unknown) (unknown) (unknown) (no date) (unknown) (unknown) 12:30 07/24/22 (units unknown) (unknown) (unknown) (no date) (unknown) (unknown) 12:33 07/24/22 (units unknown) (unknown) (unknown) (no date) (unknown) (unknown) 12:33 (units unknown) (unknown) (unknown) (no date) (unknown) (unknown) [id number] (units unknown) (unknown) (unknown) (no date) (unknown) (unknown) 3 L of oxygen continuously), chronic systolic congestive heart failure, coronary (units unknown) (unknown) (unknown) (no date) (unknown) (unknown) 57-year-old female with COPD, chronic hypoxic respiratory failure (prescribed 2 (units unknown) (unknown) (unknown) (no date) (unknown) (unknown) ABD: Soft, nontender , nondistended, bowel sounds present in all 4 quadrants, no (units unknown) (unknown) (unknown) (no date) (unknown) (unknown) ALT 74 H (units unknown) (unknown) (unknown) (no date) (unknown) (unknown) AST 31 (units unknown) (unknown) (unknown) (no date) (unknown) (unknown) Age/Sex: 57 / F (units unknown) (unknown) (unknown) (no date) (unknown) (unknown) Albumin 3.8 (units unknown) (unknown) (unknown) (no date) (unknown) (unknown) Albumin/Globulin Ratio 1.2 (units unknown) (unknown) (unknown) (no date) (unknown) (unknown) Alcohol dependence i n remission (units unknown) (unknown) (unknown) (no date) (unknown) (unknown) Alkaline Phosphatase 83 (units unknown) (unknown) (unknown) (no date) (unknown) (unknown) All other systems were reviewed negative (units unknown) (unknown) (unknown) (no date) (unknown) (unknown) Allergies (units unknown) (unknown) (unknown) (no date) (unknown) (unknown) Allergy/AdvReac Type Severity Reaction Status Date / Time (units unknown) (unknown) (unknown) (no date) (unknown) (unknown) Assessment + Plan (units unknown) (unknown) (unknown) (no date) (unknown) (unknown) Atrial fibrillation on chronic anticoagulation with Eliquis (units unknown) (unknown) (unknown) (no date) (unknown) (unknown) BUN 41 H (units unknown) (unknown) (unknown) (no date) (unknown) (unknown) BUN/Creatinine Ratio 51.3 H (units unknown) (unknown) (unknown) (no date) (unknown) (unknown) Baso # (Auto) 0 (units unknown) (unknown) (unknown) (no date) (unknown) (unknown) Baso % (Auto) 0.1 (units unknown) (unknown) (unknown) (no date) (unknown) (unknown) Been Physically Hurt or No (units unknown) (unknown) (unknown) (no date) (unknown) (unknown) Blood Pressure 124/67 (units unknown) (unknown) (unknown) (no date) (unknown) (unknown) Blood Pressure 138/60 (units unknown) (unknown) (unknown) (no date) (unknown) (unknown) CHEST: Respiratory excursions symmetric, clear to auscultation bilaterally (units unknown) (unknown) (unknown) (no date) (unknown) (unknown) CK-MB (CK-2) Rel Index TNP (units unknown) (unknown) (unknown) (no date) (unknown) (unknown) CK-MB (CK-2) TNP (units unknown) (unknown) (unknown) (no date) (unknown) (unknown) CKD 3 (units unknown) (unknown) (unknown) (no date) (unknown) (unknown) COPD (chronic obstructive pulmonary disease) (units unknown) (unknown) (unknown) (no date) (unknown) (unknown) COPD exacerbation. O n July 22, she was able to be weaned from 4 L of oxygen (units unknown) (unknown) (unknown) (no date) (unknown) (unknown) CV: Regular rate and rhythm, no murmurs, rubs, gallops, PMI nondisplaced (units unknown) (unknown) (unknown) (no date) (unknown) (unknown) Calcium 9.5 (units unknown) (unknown) (unknown) (no date) (unknown) (unknown) Carbon Dioxide 38 H (units unknown) (unknown) (unknown) (no date) (unknown) (unknown) Chief complaint: Sob , 'congestive heart failure' per pt (units unknown) (unknown) (unknown) (no date) (unknown) (unknown) Chloride 90 L (units unknown) (unknown) (unknown) (no date) (unknown) (unknown) Chronic hypoxic respiratory failure, prescribed home O2 at 2 L at rest, 3 L with (units unknown) (unknown) (unknown) (no date) (unknown) (unknown) Chronic pain syndrome (units unknown) (unknown) (unknown) (no date) (unknown) (unknown) Chronic systolic congestive heart failure (units unknown) (unknown) (unknown) (no date) (unknown) (unknown) Comment: (units unknown) (unknown) (unknown) (no date) (unknown) (unknown) Coronary artery disease with prior DC (units unknown) (unknown) (unknown) (no date) (unknown) (unknown) Creatinine 0.80 (units unknown) (unknown) (unknown) (no date) (unknown) (unknown) Critical Care time: (units unknown) (unknown) (unknown) (no date) (unknown) (unknown) : 1965 Acct:[id number] (units unknown) (unknown) (unknown) (no date) (unknown) (unknown) Date of Service: 07/24/22 (units unknown) (unknown) (unknown) (no date) (unknown) (unknown) Diabetes mellitus type 2 (units unknown) (unknown) (unknown) (no date) (unknown) (unknown) EXTR: Warm, well perfused, no clubbing/cyanosis/whit ma (units unknown) (unknown) (unknown) (no date) (unknown) (unknown) Environment (units unknown) (unknown) (unknown) (no date) (unknown) (unknown) Eos # (Auto) 0 (units unknown) (unknown) (unknown) (no date) (unknown) (unknown) Eos % (Auto) 0.0 L (units unknown) (unknown) (unknown) (no date) (unknown) (unknown) Estimated GFR > 60 (units unknown) (unknown) (unknown) (no date) (unknown) (unknown) Exam Narrative: (units unknown) (unknown) (unknown) (no date) (unknown) (unknown) Exam (units unknown) (unknown) (unknown) (no date) (unknown) (unknown) Family + Social History (units unknown) (unknown) (unknown) (no date) (unknown) (unknown) Family history: (units unknown) (unknown) (unknown) (no date) (unknown) (unknown) Father from cancer (units unknown) (unknown) (unknown) (no date) (unknown) (unknown) Feels Safe in [place] t Yes (units unknown) (unknown) (unknown) (no date) (unknown) (unknown) Fraction of Inspired Oxygen 36 (units unknown) (unknown) (unknown) (no date) (unknown) (unknown) Fraction of Inspired Oxygen (units unknown) (unknown) (unknown) (no date) (unknown) (unknown) GEN: Alert and oriented x3, no acute distress (units unknown) (unknown) (unknown) (no date) (unknown) (unknown) Globulin 3.2 (units unknown) (unknown) (unknown) (no date) (unknown) (unknown) Glucose 248 H (units unknown) (unknown) (unknown) (no date) (unknown) (unknown) HEENT: Normocephalic , face symmetric, pupils equal round reactive to light, (units unknown) (unknown) (unknown) (no date) (unknown) (unknown) Hct 48.5 H (units unknown) (unknown) (unknown) (no date) (unknown) (unknown) Health Emergency Department. (units unknown) (unknown) (unknown) (no date) (unknown) (unknown) Health on July 19, 2022. She presented complaining of a 1 day history of severe (units unknown) (unknown) (unknown) (no date) (unknown) (unknown) Health today after a 5 day hospitalization. Patient was admitted to [facility] (units unknown) (unknown) (unknown) (no date) (unknown) (unknown) Her primary care provider or to hospice in June of this year. She had an (units unknown) (unknown) (unknown) (no date) (unknown) (unknown) Hgb 15.8 (units unknown) (unknown) (unknown) (no date) (unknown) (unknown) History + Physical Report (units unknown) (unknown) (unknown) (no date) (unknown) (unknown) History of Present Illness (units unknown) (unknown) (unknown) (no date) (unknown) (unknown) History of alcohol dependence in remission (units unknown) (unknown) (unknown) (no date) (unknown) (unknown) History of cardiac arrest, status post AICD placement (units unknown) (unknown) (unknown) (no date) (unknown) (unknown) History of longstanding tobacco abuse (units unknown) (unknown) (unknown) (no date) (unknown) (unknown) Home Medications and Allergies (units unknown) (unknown) (unknown) (no date) (unknown) (unknown) Hyperlipidemia (units unknown) (unknown) (unknown) (no date) (unknown) (unknown) Hypertension (units unknown) (unknown) (unknown) (no date) (unknown) (unknown) I spent a total of [ ] minutes of critical care time on this patient's care (units unknown) (unknown) (unknown) (no date) (unknown) (unknown) [address] [address] (units unknown) (unknown) (unknown) (no date) (unknown) (unknown) Laboratory Results - last 24 hr (units unknown) (unknown) (unknown) (no date) (unknown) (unknown) Labs (units unknown) (unknown) (unknown) (no date) (unknown) (unknown) Labs: (units unknown) (unknown) (unknown) (no date) (unknown) (unknown) Lactate 2.2 H (units unknown) (unknown) (unknown) (no date) (unknown) (unknown) Lipase 43 (units unknown) (unknown) (unknown) (no date) (unknown) (unknown) Lymph # (Auto) 1000 L (units unknown) (unknown) (unknown) (no date) (unknown) (unknown) Lymph % (Auto) 5.0 L (units unknown) (unknown) (unknown) (no date) (unknown) (unknown) MCH 30.9 (units unknown) (unknown) (unknown) (no date) (unknown) (unknown) MCHC 32.6 (units unknown) (unknown) (unknown) (no date) (unknown) (unknown) MCV 94.8 (units unknown) (unknown) (unknown) (no date) (unknown) (unknown) Medical History (units unknown) (unknown) (unknown) (no date) (unknown) (unknown) Meds (units unknown) (unknown) (unknown) (no date) (unknown) (unknown) [place] # (Auto) 1400 H (units unknown) (unknown) (unknown) (no date) (unknown) (unknown) [place] % (Auto) 7.0 (units unknown) (unknown) (unknown) (no date) (unknown) (unknown) Mother has Alzheimer's disease, hyperlipidemia, and hypertension (units unknown) (unknown) (unknown) (no date) (unknown) (unknown) NECK: Supple, no lymphadenopathy, thyroid without enlargement or nodularity, (units unknown) (unknown) (unknown) (no date) (unknown) (unknown) NEURO: Alert and oriented x3, cranial nerves 2 through 12 are intact and (units unknown) (unknown) (unknown) (no date) (unknown) (unknown) NT-Pro-B Natriuret Pep 2860 H (units unknown) (unknown) (unknown) (no date) (unknown) (unknown) Narrative (units unknown) (unknown) (unknown) (no date) (unknown) (unknown) Narrative: (units unknown) (unknown) (unknown) (no date) (unknown) (unknown) Neut # (Auto) 48721 H (units unknown) (unknown) (unknown) (no date) (unknown) (unknown) Neut % (Auto) 87.9 H (units unknown) (unknown) (unknown) (no date) (unknown) (unknown) Obesity with BMI of 74 (units unknown) (unknown) (unknown) (no date) (unknown) (unknown) Objective (units unknown) (unknown) (unknown) (no date) (unknown) (unknown) Oxygen Delivery Method Nasal Cannula (units unknown) (unknown) (unknown) (no date) (unknown) (unknown) Oxygen Delivery Method Room Air Nasal Cannula (units unknown) (unknown) (unknown) (no date) (unknown) (unknown) Oxygen Delivery Method (units unknown) (unknown) (unknown) (no date) (unknown) (unknown) Oxygen Flow Rate 4 (units unknown) (unknown) (unknown) (no date) (unknown) (unknown) Oxygen Flow Rate (units unknown) (unknown) (unknown) (no date) (unknown) (unknown) PSYCH: Mood and affect is within normal limits, judgment and insight are (units unknown) (unknown) (unknown) (no date) (unknown) (unknown) Past medical history: (units unknown) (unknown) (unknown) (no date) (unknown) (unknown) Patient History (units unknown) (unknown) (unknown) (no date) (unknown) (unknown) Patient quit smoking in 2020. Prior to that she had smoked 1 and half packs per (units unknown) (unknown) (unknown) (no date) (unknown) (unknown) Patient: Ester Benavides MR#: [id number] (units unknown) (unknown) (unknown) (no date) (unknown) (unknown) Plt Count 320 (units unknown) (unknown) (unknown) (no date) (unknown) (unknown) Potassium 4.1 (units unknown) (unknown) (unknown) (no date) (unknown) (unknown) Procalcitonin 0.06 (units unknown) (unknown) (unknown) (no date) (unknown) (unknown) Provider: Hallie Greco MD (units unknown) (unknown) (unknown) (no date) (unknown) (unknown) Pulse Oximetry 78 L 89 L (units unknown) (unknown) (unknown) (no date) (unknown) (unknown) Pulse Oximetry 91 89 L (units unknown) (unknown) (unknown) (no date) (unknown) (unknown) Pulse Rate 61 61 (units unknown) (unknown) (unknown) (no date) (unknown) (unknown) Pulse Rate 73 89 73 (units unknown) (unknown) (unknown) (no date) (unknown) (unknown) RBC 5.11 (units unknown) (unknown) (unknown) (no date) (unknown) (unknown) RDW 14.0 (units unknown) (unknown) (unknown) (no date) (unknown) (unknown) Respiratory Rate 24 30 H (units unknown) (unknown) (unknown) (no date) (unknown) (unknown) Respiratory Rate 38 H (units unknown) (unknown) (unknown) (no date) (unknown) (unknown) Review of Systems (units unknown) (unknown) (unknown) (no date) (unknown) (unknown) SKIN: Warm and dry, without rash (units unknown) (unknown) (unknown) (no date) (unknown) (unknown) SaO2/FiO2 Ratio 247 (units unknown) (unknown) (unknown) (no date) (unknown) (unknown) Safety + Behavioral: (units unknown) (unknown) (unknown) (no date) (unknown) (unknown) Signed By: (units unknown) (unknown) (unknown) (no date) (unknown) (unknown) Smoking Status Current every day smoker (units unknown) (unknown) (unknown) (no date) (unknown) (unknown) Social History: (units unknown) (unknown) (unknown) (no date) (unknown) (unknown) Social history: (units unknown) (unknown) (unknown) (no date) (unknown) (unknown) Sodium 136 L (units unknown) (unknown) (unknown) (no date) (unknown) (unknown) Substance Use Type does not use (units unknown) (unknown) (unknown) (no date) (unknown) (unknown) Temperature 98.1 F (units unknown) (unknown) (unknown) (no date) (unknown) (unknown) Temperature (units unknown) (unknown) (unknown) (no date) (unknown) (unknown) Threatened By a Person (units unknown) (unknown) (unknown) (no date) (unknown) (unknown) Time Spent With Patient (units unknown) (unknown) (unknown) (no date) (unknown) (unknown) Tobacco + Substance use: (units unknown) (unknown) (unknown) (no date) (unknown) (unknown) Total Bilirubin 0.7 (units unknown) (unknown) (unknown) (no date) (unknown) (unknown) Total Creatine Kinas e 36 (units unknown) (unknown) (unknown) (no date) (unknown) (unknown) Total Protein 7.0 (units unknown) (unknown) (unknown) (no date) (unknown) (unknown) Troponin I < 0.012 (units unknown) (unknown) (unknown) (no date) (unknown) (unknown) Vital Signs (units unknown) (unknown) (unknown) (no date) (unknown) (unknown) WBC 20.6 H (units unknown) (unknown) (unknown) (no date) (unknown) (unknown) [Embedded Image Not Available] (units unknown) (unknown) (unknown) (no date) (unknown) (unknown) acetaminophen [From [facility]] Allergy Verified 07/06/21 13:33 (units unknown) (unknown) (unknown) (no date) (unknown) (unknown) activity (units unknown) (unknown) (unknown) (no date) (unknown) (unknown) appropriate (units unknown) (unknown) (unknown) (no date) (unknown) (unknown) artery disease with her 1st DC at age 29 previous cardiac arrest status post (units unknown) (unknown) (unknown) (no date) (unknown) (unknown) both congestive hear t failure and COPD exacerbation. She was hypoxic in the (units unknown) (unknown) (unknown) (no date) (unknown) (unknown) carotids no bruits (units unknown) (unknown) (unknown) (no date) (unknown) (unknown) chips and extra fluids due to complaining of thirst well on the fluid restricted (units unknown) (unknown) (unknown) (no date) (unknown) (unknown) class 3 obesity, who presented after leaving Against Medical Advice from [facility] (units unknown) (unknown) (unknown) (no date) (unknown) (unknown) codeine Allergy Verified 07/06/21 13:34 (units unknown) (unknown) (unknown) (no date) (unknown) (unknown) day for nearly 50 years (units unknown) (unknown) (unknown) (no date) (unknown) (unknown) diet. This morning, patient requested to leave Against Medical Advice. She was (units unknown) (unknown) (unknown) (no date) (unknown) (unknown) emergency department and required supplemental O2. She was admitted with acute (units unknown) (unknown) (unknown) (no date) (unknown) (unknown) erythromycin base Allergy Verified 07/06/21 13:34 (units unknown) (unknown) (unknown) (no date) (unknown) (unknown) extraocular movement s intact, sclerae anicteric, conjunctiva clear, nares (units unknown) (unknown) (unknown) (no date) (unknown) (unknown) had her grandelvis harley take her from [facility] and brought her to [facility] (units unknown) (unknown) (unknown) (no date) (unknown) (unknown) informational visit with hospice but reported she continued to want aggressive (units unknown) (unknown) (unknown) (no date) (unknown) (unknown) interventions for he r disease processes (units unknown) (unknown) (unknown) (no date) (unknown) (unknown) lives independently Yes (units unknown) (unknown) (unknown) (no date) (unknown) (unknown) membranes, dentition is fair (units unknown) (unknown) (unknown) (no date) (unknown) (unknown) noted to take her oxygen off and have sats down to 70% room air. She ultimately (units unknown) (unknown) (unknown) (no date) (unknown) (unknown) on chronic hypoxic respiratory failure felt to be secondary to acute on chronic (units unknown) (unknown) (unknown) (no date) (unknown) (unknown) organomegaly or masses appreciated (units unknown) (unknown) (unknown) (no date) (unknown) (unknown) pacemaker/AICD placement, diabetes mellitus type 2 on oral antidiabetic agents, (units unknown) (unknown) (unknown) (no date) (unknown) (unknown) pamabrom [From [facility] ] Allergy Verified 07/06/21 13:33 (units unknown) (unknown) (unknown) (no date) (unknown) (unknown) patent, oropharynx reveals an intact soft and hard palate with moist mucous (units unknown) (unknown) (unknown) (no date) (unknown) (unknown) restriction of 2000 cc, IV Solu-Medrol, and her usual home medications. She did (units unknown) (unknown) (unknown) (no date) (unknown) (unknown) shortness of breath. 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 She was placed on IV diuretics, fluid (units unknown) (unknown) (unknown) (no date) (unknown) (unknown) test positive for human metapneumovirus which was felt to be the etiology of her (units unknown) (unknown) (unknown) (no date) (unknown) (unknown) throughout (units unknown) (unknown) (unknown) (no date) (unknown) (unknown) to 3 L of oxygen. However, patient was having her granddaughter bring in potato (units unknown) (unknown) (unknown) (no date) (unknown) (unknown) today; this time is exclusive of procedural time. (units unknown) (unknown) Result panel 640 (unknown) (no date) (unknown) (unknown) 24.0 mmol/l (unknown) (unknown) (no date) (unknown) (unknown) 40 (units unknown) (unknown) (unknown) (no date) (unknown) (unknown) 48 mmol/l (unknown) (unknown) (no date) (unknown) (unknown) 50 mmhg (unknown) (unknown) (no date) (unknown) (unknown) 50 mmol/l (unknown) (unknown) (no date) (unknown) (unknown) 69.4 mmhg (unknown) (unknown) (no date) (unknown) (unknown) 69.4 mmhg (unknown) (unknown) (no date) (unknown) (unknown) 7.45 (units unknown) (unknown) (unknown) (no date) (unknown) (unknown) 7.45 (units unknown) (unknown) (unknown) (no date) (unknown) (unknown) 84 % (unknown) Result panel 641 (unknown) (no date) (unknown) (unknown) (no value) (units unknown) (unknown) (unknown) (no date) (unknown) (unknown) 07/24/22 07/24/22 07/24/22 Range/Units (units unknown) (unknown) (unknown) (no date) (unknown) (unknown) 07/24/22 12:06 (units unknown) (unknown) (unknown) (no date) (unknown) (unknown) 07/24/22 12:11 (units unknown) (unknown) (unknown) (no date) (unknown) (unknown) 07/24/22 13:05 (units unknown) (unknown) (unknown) (no date) (unknown) (unknown) 07/24/22 13:06 (units unknown) (unknown) (unknown) (no date) (unknown) (unknown) 07/24/22 (units unknown) (unknown) (unknown) (no date) (unknown) (unknown) 11:50 07/24/22 (units unknown) (unknown) (unknown) (no date) (unknown) (unknown) 12:00 (units unknown) (unknown) (unknown) (no date) (unknown) (unknown) 12:06 12:06 12:06 (units unknown) (unknown) (unknown) (no date) (unknown) (unknown) 12:18 07/24/22 (units unknown) (unknown) (unknown) (no date) (unknown) (unknown) 12:30 07/24/22 (units unknown) (unknown) (unknown) (no date) (unknown) (unknown) 12:33 07/24/22 (units unknown) (unknown) (unknown) (no date) (unknown) (unknown) 12:33 (units unknown) (unknown) (unknown) (no date) (unknown) (unknown) 13:00 (units unknown) (unknown) (unknown) (no date) (unknown) (unknown) [address] (units unknown) (unknown) (unknown) (no date) (unknown) (unknown) ? (units unknown) (unknown) (unknown) (no date) (unknown) (unknown) ALT 74 H (<35) IU/L (units unknown) (unknown) (unknown) (no date) (unknown) (unknown) AST 31 (14-36) IU/L (units unknown) (unknown) (unknown) (no date) (unknown) (unknown) Acute exacerbation o f chronic obstructive airways disease, Congestive heart (units unknown) (unknown) (unknown) (no date) (unknown) (unknown) Admit Date/Time: 07/24/22 13:14 (units unknown) (unknown) (unknown) (no date) (unknown) (unknown) Admit Provider: Hallie Greco (units unknown) (unknown) (unknown) (no date) (unknown) (unknown) Age/Sex: 57 / F (units unknown) (unknown) (unknown) (no date) (unknown) (unknown) Albumin 3.8 (3.5-5.0 ) g/dL (units unknown) (unknown) (unknown) (no date) (unknown) (unknown) Albumin/Globulin Ratio 1.2 (1.0-2.8) (units unknown) (unknown) (unknown) (no date) (unknown) (unknown) Albuterol/Ipratropiu m (Albuterol/Ipratropiu m 3 Ml Ampul) 3 ml INH NOW ONE (units unknown) (unknown) (unknown) (no date) (unknown) (unknown) Alkaline Phosphatase 83 (38-126) U/L (units unknown) (unknown) (unknown) (no date) (unknown) (unknown) Allergies (units unknown) (unknown) (unknown) (no date) (unknown) (unknown) Allergy/AdvReac Type Severity Reaction Status Date / Time (units unknown) (unknown) (unknown) (no date) (unknown) (unknown) Appearance: disheveled (units unknown) (unknown) (unknown) (no date) (unknown) (unknown) Attestation: I personally reviewed and interpreted this ECG as follows: (units unknown) (unknown) (unknown) (no date) (unknown) (unknown) Auscultation: rhonch i and wheezes (units unknown) (unknown) (unknown) (no date) (unknown) (unknown) BUN 41 H (7-17) mg/dL (units unknown) (unknown) (unknown) (no date) (unknown) (unknown) BUN/Creatinine Ratio 51.3 H (6-22) (units unknown) (unknown) (unknown) (no date) (unknown) (unknown) Baso # (Auto) 0 (0-100) /uL (units unknown) (unknown) (unknown) (no date) (unknown) (unknown) Baso % (Auto) 0.1 (0-2) % (units unknown) (unknown) (unknown) (no date) (unknown) (unknown) Blood Pressure 124/6 7 07/24/22 11:50 (units unknown) (unknown) (unknown) (no date) (unknown) (unknown) Blood Pressure 124/67 (units unknown) (unknown) (unknown) (no date) (unknown) (unknown) Blood Pressure 138/60 (units unknown) (unknown) (unknown) (no date) (unknown) (unknown) Blood Pressure (units unknown) (unknown) (unknown) (no date) (unknown) (unknown) Bones and chest wall:? No suspicious bony lesions.? Overlying soft tissues (units unknown) (unknown) (unknown) (no date) (unknown) (unknown) CK-MB (CK-2) Rel Index TNP (units unknown) (unknown) (unknown) (no date) (unknown) (unknown) CK-MB (CK-2) TNP (units unknown) (unknown) (unknown) (no date) (unknown) (unknown) COMPARISON:? None. (units unknown) (unknown) (unknown) (no date) (unknown) (unknown) COPD (chronic obstructive pulmonary disease) (units unknown) (unknown) (unknown) (no date) (unknown) (unknown) Calcium 9.5 (8.4-10.2) mg/dL (units unknown) (unknown) (unknown) (no date) (unknown) (unknown) Carbon Dioxide 38 H (22-32) mmol/L (units unknown) (unknown) (unknown) (no date) (unknown) (unknown) Cardio (units unknown) (unknown) (unknown) (no date) (unknown) (unknown) Chest x-ray: (units unknown) (unknown) (unknown) (no date) (unknown) (unknown) Chief complaint: Shortness of Breath/Dyspnea (units unknown) (unknown) (unknown) (no date) (unknown) (unknown) Chloride 90 L (98-107) mmol/L (units unknown) (unknown) (unknown) (no date) (unknown) (unknown) Clinical Impression: (units unknown) (unknown) (unknown) (no date) (unknown) (unknown) Complete Blood Count AUTO DIFF Stat (units unknown) (unknown) (unknown) (no date) (unknown) (unknown) Comprehensive Metabolic Panel Stat (units unknown) (unknown) (unknown) (no date) (unknown) (unknown) Const (units unknown) (unknown) (unknown) (no date) (unknown) (unknown) Course (units unknown) (unknown) (unknown) (no date) (unknown) (unknown) Creatinine 0.80 (0.52-1.04) mg/dL (units unknown) (unknown) (unknown) (no date) (unknown) (unknown) : 1965 Acct:[id number] (units unknown) (unknown) (unknown) (no date) (unknown) (unknown) Date of Service: 07/24/22 (units unknown) (unknown) (unknown) (no date) (unknown) (unknown) Departure (units unknown) (unknown) (unknown) (no date) (unknown) (unknown) Diffuse (units unknown) (unknown) (unknown) (no date) (unknown) (unknown) Discharge Plan (units unknown) (unknown) (unknown) (no date) (unknown) (unknown) Discontinued Medications (units unknown) (unknown) (unknown) (no date) (unknown) (unknown) Documented By: OSIEL (units unknown) (unknown) (unknown) (no date) (unknown) (unknown) Documented By: NR (units unknown) (unknown) (unknown) (no date) (unknown) (unknown) Doxycycline Hyclate 100 mg/ (Sodium Chloride) 100 mls @ 100 mls/hr IV NOW ONE (units unknown) (unknown) (unknown) (no date) (unknown) (unknown) EC echo doppler complete Stat (units unknown) (unknown) (unknown) (no date) (unknown) (unknown) ECG Data (units unknown) (unknown) (unknown) (no date) (unknown) (unknown) ED Orders (units unknown) (unknown) (unknown) (no date) (unknown) (unknown) EKG-12 Lead Stat (units unknown) (unknown) (unknown) (no date) (unknown) (unknown) ER Physician: Rufino Solorzano D.O. (units unknown) (unknown) (unknown) (no date) (unknown) (unknown) Effort + Inspection: labored, respiratory distress and tachypneic (units unknown) (unknown) (unknown) (no date) (unknown) (unknown) Emergency Report (units unknown) (unknown) (unknown) (no date) (unknown) (unknown) Eos # (Auto) 0 (0-450) /uL (units unknown) (unknown) (unknown) (no date) (unknown) (unknown) Eos % (Auto) 0.0 L (2-4) % (units unknown) (unknown) (unknown) (no date) (unknown) (unknown) Estimated GFR > 60 (>60) mL/min (units unknown) (unknown) (unknown) (no date) (unknown) (unknown) Exam (units unknown) (unknown) (unknown) (no date) (unknown) (unknown) Extrem (units unknown) (unknown) (unknown) (no date) (unknown) (unknown) FINDINGS:? (units unknown) (unknown) (unknown) (no date) (unknown) (unknown) Fraction of Inspired Oxygen 36 (units unknown) (unknown) (unknown) (no date) (unknown) (unknown) Fraction of Inspired Oxygen (units unknown) (unknown) (unknown) (no date) (unknown) (unknown) GI (units unknown) (unknown) (unknown) (no date) (unknown) (unknown) General (units unknown) (unknown) (unknown) (no date) (unknown) (unknown) General: No edema (units unknown) (unknown) (unknown) (no date) (unknown) (unknown) General: cooperative and ill appearing (units unknown) (unknown) (unknown) (no date) (unknown) (unknown) General: no rashes o r lesions noted (units unknown) (unknown) (unknown) (no date) (unknown) (unknown) General: patient alert, patient awake and moves all extremities (units unknown) (unknown) (unknown) (no date) (unknown) (unknown) Generally just does not feel very well. No abdominal pain. No lower extremity (units unknown) (unknown) (unknown) (no date) (unknown) (unknown) Globulin 3.2 (1.7-4.1) g/dL (units unknown) (unknown) (unknown) (no date) (unknown) (unknown) Glucose 248 H (70-100) mg/dL (units unknown) (unknown) (unknown) (no date) (unknown) (unknown) HENMT (units unknown) (unknown) (unknown) (no date) (unknown) (unknown) HPI - General Adult (units unknown) (unknown) (unknown) (no date) (unknown) (unknown) HPI narrative: (units unknown) (unknown) (unknown) (no date) (unknown) (unknown) Hct 48.5 H (36-46) % (units unknown) (unknown) (unknown) (no date) (unknown) (unknown) Head: normal to inspection and normocephalic (units unknown) (unknown) (unknown) (no date) (unknown) (unknown) Hgb 15.8 (12.0-16.0) g/dL (units unknown) (unknown) (unknown) (no date) (unknown) (unknown) History of Present Illness (units unknown) (unknown) (unknown) (no date) (unknown) (unknown) IMPRESSION:? Cardiomegaly with pulmonary vascular congestion. (units unknown) (unknown) (unknown) (no date) (unknown) (unknown) INDICATIONS:? SOB (units unknown) (unknown) (unknown) (no date) (unknown) (unknown) Imaging Data (units unknown) (unknown) (unknown) (no date) (unknown) (unknown) Initial Vital Signs (units unknown) (unknown) (unknown) (no date) (unknown) (unknown) Initial Vital Signs: (units unknown) (unknown) (unknown) (no date) (unknown) (unknown) Inspection: normal t o inspection and non-distended (units unknown) (unknown) (unknown) (no date) (unknown) (unknown) Interpretation: (units unknown) (unknown) (unknown) (no date) (unknown) (unknown) [address] [address] (units unknown) (unknown) (unknown) (no date) (unknown) (unknown) Lab Data (units unknown) (unknown) (unknown) (no date) (unknown) (unknown) Lab Results (units unknown) (unknown) (unknown) (no date) (unknown) (unknown) Lab results reviewed : Yes I reviewed the patient's lab results. (units unknown) (unknown) (unknown) (no date) (unknown) (unknown) Labs: (units unknown) (unknown) (unknown) (no date) (unknown) (unknown) Lactate (Lactic Acid ) Stat (units unknown) (unknown) (unknown) (no date) (unknown) (unknown) Lactate 2.2 H (0.7-2.1) mmol/L (units unknown) (unknown) (unknown) (no date) (unknown) (unknown) Last Admin: 07/24/22 12:18 Dose: 3 ml (units unknown) (unknown) (unknown) (no date) (unknown) (unknown) Last Admin: 07/24/22 12:43 Dose: 125 mg (units unknown) (unknown) (unknown) (no date) (unknown) (unknown) Left bundle branch block (units unknown) (unknown) (unknown) (no date) (unknown) (unknown) Limitations: no limitations (units unknown) (unknown) (unknown) (no date) (unknown) (unknown) Lipase 43 (23-300) U/L (units unknown) (unknown) (unknown) (no date) (unknown) (unknown) Lipase Stat (units unknown) (unknown) (unknown) (no date) (unknown) (unknown) Lungs and pleura:? Lungs are clear.? No pleural effusions or pneumothorax.? (units unknown) (unknown) (unknown) (no date) (unknown) (unknown) Lymph # (Auto) 1000 L (5382-2600) /uL (units unknown) (unknown) (unknown) (no date) (unknown) (unknown) Lymph % (Auto) 5.0 L (25-40) % (units unknown) (unknown) (unknown) (no date) (unknown) (unknown) MCH 30.9 (26-34) PG (units unknown) (unknown) (unknown) (no date) (unknown) (unknown) MCHC 32.6 (30-36) % (units unknown) (unknown) (unknown) (no date) (unknown) (unknown) MCV 94.8 (80-100) fL (units unknown) (unknown) (unknown) (no date) (unknown) (unknown) Mediastinum:? Mediastinal contours appear normal.? Heart size is enlarged.? (units unknown) (unknown) (unknown) (no date) (unknown) (unknown) Medical Decision Making (units unknown) (unknown) (unknown) (no date) (unknown) (unknown) Medical History (units unknown) (unknown) (unknown) (no date) (unknown) (unknown) Methylprednisolone (Methylprednisolone 125 Mg/2 Ml Vial) 125 mg IV NOW ONE (units unknown) (unknown) (unknown) (no date) (unknown) (unknown) Mode of arrival: Family Vehicle (units unknown) (unknown) (unknown) (no date) (unknown) (unknown) [place] # (Auto) 1400 H (0-900) /uL (units unknown) (unknown) (unknown) (no date) (unknown) (unknown) [place] % (Auto) 7.0 (3-14) % (units unknown) (unknown) (unknown) (no date) (unknown) (unknown) NT-Pro-B Natriuret Pep 2860 H (<125) pg/mL (units unknown) (unknown) (unknown) (no date) (unknown) (unknown) NT-proBNP (BNP-Adult 18+) Stat (units unknown) (unknown) (unknown) (no date) (unknown) (unknown) Neuro (units unknown) (unknown) (unknown) (no date) (unknown) (unknown) Neut # (Auto) 52708 H (3672-7311) /uL (units unknown) (unknown) (unknown) (no date) (unknown) (unknown) Neut % (Auto) 87.9 H (50-75) % (units unknown) (unknown) (unknown) (no date) (unknown) (unknown) No ST T wave changes (units unknown) (unknown) (unknown) (no date) (unknown) (unknown) Ordered: (units unknown) (unknown) (unknown) (no date) (unknown) (unknown) Orders (units unknown) (unknown) (unknown) (no date) (unknown) (unknown) Oxygen Delivery Method Nasal Cannula (units unknown) (unknown) (unknown) (no date) (unknown) (unknown) Oxygen Delivery Method Room Air 07/24/22 11:50 (units unknown) (unknown) (unknown) (no date) (unknown) (unknown) Oxygen Delivery Method Room Air Nasal Cannula (units unknown) (unknown) (unknown) (no date) (unknown) (unknown) Oxygen Delivery Method (units unknown) (unknown) (unknown) (no date) (unknown) (unknown) Oxygen Flow Rate 4 (units unknown) (unknown) (unknown) (no date) (unknown) (unknown) Oxygen Flow Rate 5 (units unknown) (unknown) (unknown) (no date) (unknown) (unknown) Oxygen Flow Rate (units unknown) (unknown) (unknown) (no date) (unknown) (unknown) PROCEDURE:? XR CHEST 1V (units unknown) (unknown) (unknown) (no date) (unknown) (unknown) Patient Disposition: Admitted As Inpatient (units unknown) (unknown) (unknown) (no date) (unknown) (unknown) Patient History (units unknown) (unknown) (unknown) (no date) (unknown) (unknown) Patient is a 57-year-old female. She states she is a history of COPD. Is on (units unknown) (unknown) (unknown) (no date) (unknown) (unknown) Patient: Ester Benavides MR#: [id number] (units unknown) (unknown) (unknown) (no date) (unknown) (unknown) Plt Count 320 (150-400) X103/uL (units unknown) (unknown) (unknown) (no date) (unknown) (unknown) Potassium 4.1 (3.4-5.1) mmol/L (units unknown) (unknown) (unknown) (no date) (unknown) (unknown) Procalcitonin 0.06 (<0.5) ng/mL (units unknown) (unknown) (unknown) (no date) (unknown) (unknown) Procalcitonin Stat (units unknown) (unknown) (unknown) (no date) (unknown) (unknown) Psych (units unknown) (unknown) (unknown) (no date) (unknown) (unknown) Pulse Oximetry 78 L 07/24/22 11:50 (units unknown) (unknown) (unknown) (no date) (unknown) (unknown) Pulse Oximetry 78 L 89 L (units unknown) (unknown) (unknown) (no date) (unknown) (unknown) Pulse Oximetry 90 L (units unknown) (unknown) (unknown) (no date) (unknown) (unknown) Pulse Oximetry 91 89 L (units unknown) (unknown) (unknown) (no date) (unknown) (unknown) Pulse Rate 61 61 (units unknown) (unknown) (unknown) (no date) (unknown) (unknown) Pulse Rate 71 (units unknown) (unknown) (unknown) (no date) (unknown) (unknown) Pulse Rate 73 07/24/22 11:50 (units unknown) (unknown) (unknown) (no date) (unknown) (unknown) Pulse Rate 73 89 73 (units unknown) (unknown) (unknown) (no date) (unknown) (unknown) RBC 5.11 (4.0-5.2) X106/uL (units unknown) (unknown) (unknown) (no date) (unknown) (unknown) RDW 14.0 (11.6-14.8) % (units unknown) (unknown) (unknown) (no date) (unknown) (unknown) ROS Unobtainable: Al l systems reviewed + are unremarkable except as noted in HPI (units unknown) (unknown) (unknown) (no date) (unknown) (unknown) RT Consult Eval and Treat Now (units unknown) (unknown) (unknown) (no date) (unknown) (unknown) Radiologist's Impression: (units unknown) (unknown) (unknown) (no date) (unknown) (unknown) Rate: regular rate (units unknown) (unknown) (unknown) (no date) (unknown) (unknown) Related Data (units unknown) (unknown) (unknown) (no date) (unknown) (unknown) Resp (units unknown) (unknown) (unknown) (no date) (unknown) (unknown) Respiratory Panel (Film Array) Stat (units unknown) (unknown) (unknown) (no date) (unknown) (unknown) Respiratory Rate 24 07/24/22 11:50 (units unknown) (unknown) (unknown) (no date) (unknown) (unknown) Respiratory Rate 24 30 H (units unknown) (unknown) (unknown) (no date) (unknown) (unknown) Respiratory Rate 38 H (units unknown) (unknown) (unknown) (no date) (unknown) (unknown) Respiratory Rate (units unknown) (unknown) (unknown) (no date) (unknown) (unknown) Review of Systems (units unknown) (unknown) (unknown) (no date) (unknown) (unknown) Rhythm: regular rhythm (units unknown) (unknown) (unknown) (no date) (unknown) (unknown) Signed By: (units unknown) (unknown) (unknown) (no date) (unknown) (unknown) Sinus rhythm (units unknown) (unknown) (unknown) (no date) (unknown) (unknown) Skin (units unknown) (unknown) (unknown) (no date) (unknown) (unknown) Smoking Status: Current every day smoker (units unknown) (unknown) (unknown) (no date) (unknown) (unknown) Social History (units unknown) (unknown) (unknown) (no date) (unknown) (unknown) Sodium 136 L (137-145) mmol/L (units unknown) (unknown) (unknown) (no date) (unknown) (unknown) Source: patient (units unknown) (unknown) (unknown) (no date) (unknown) (unknown) Stated complaint: Sob, 'congestive heart failure' per pt (units unknown) (unknown) (unknown) (no date) (unknown) (unknown) Stop: 07/24/22 12:11 (units unknown) (unknown) (unknown) (no date) (unknown) (unknown) Stop: 07/24/22 12:35 (units unknown) (unknown) (unknown) (no date) (unknown) (unknown) Stop: 07/24/22 12:56 (units unknown) (unknown) (unknown) (no date) (unknown) (unknown) Surgical changes and devices:? Left chest wall pacer is seen with an intact (units unknown) (unknown) (unknown) (no date) (unknown) (unknown) TECHNIQUE:? One view of the chest was acquired.? (units unknown) (unknown) (unknown) (no date) (unknown) (unknown) Temperature 98.1 F 07/24/22 11:50 (units unknown) (unknown) (unknown) (no date) (unknown) (unknown) Temperature 98.1 F (units unknown) (unknown) (unknown) (no date) (unknown) (unknown) Temperature (units unknown) (unknown) (unknown) (no date) (unknown) (unknown) This morning she lef t would be [facility] against medical advice after (units unknown) (unknown) (unknown) (no date) (unknown) (unknown) Time Seen by Provider: 07/24/22 12:04 (units unknown) (unknown) (unknown) (no date) (unknown) (unknown) Total Bilirubin 0.7 (0.2-1.3) mg/dL (units unknown) (unknown) (unknown) (no date) (unknown) (unknown) Total Creatine Kinas e 36 (30-135) U/L (units unknown) (unknown) (unknown) (no date) (unknown) (unknown) Total Protein 7.0 (6.3-8.2) g/dL (units unknown) (unknown) (unknown) (no date) (unknown) (unknown) Troponin + CK Cardia c Panel Stat (units unknown) (unknown) (unknown) (no date) (unknown) (unknown) Troponin I < 0.012 (0.01-0.034) ng/mL (units unknown) (unknown) (unknown) (no date) (unknown) (unknown) Ventricular rate is 66 (units unknown) (unknown) (unknown) (no date) (unknown) (unknown) Vital Signs - 8 hr (units unknown) (unknown) (unknown) (no date) (unknown) (unknown) Vital Signs (units unknown) (unknown) (unknown) (no date) (unknown) (unknown) Vital signs: (units unknown) (unknown) (unknown) (no date) (unknown) (unknown) WBC 20.6 H (4.5-11.0 ) X103/uL (units unknown) (unknown) (unknown) (no date) (unknown) (unknown) XR chest 1V Stat (units unknown) (unknown) (unknown) (no date) (unknown) (unknown) [Embedded Image Not Available] (units unknown) (unknown) (unknown) (no date) (unknown) (unknown) acetaminophen [From Midol] Allergy Verified 07/06/21 13:33 (units unknown) (unknown) (unknown) (no date) (unknown) (unknown) and below (units unknown) (unknown) (unknown) (no date) (unknown) (unknown) appear (units unknown) (unknown) (unknown) (no date) (unknown) (unknown) codeine Allergy Verified 07/06/21 13:34 (units unknown) (unknown) (unknown) (no date) (unknown) (unknown) describes shortness of breath and chest discomfort. No abdominal pain. (units unknown) (unknown) (unknown) (no date) (unknown) (unknown) erythromycin base Allergy Verified 07/06/21 13:34 (units unknown) (unknown) (unknown) (no date) (unknown) (unknown) exacerbation/CHF. I am not 100% convinced this. We have called to request (units unknown) (unknown) (unknown) (no date) (unknown) (unknown) failure, Hypoxia (units unknown) (unknown) (unknown) (no date) (unknown) (unknown) from the hospital he r oxygen saturations were in the 70s. (units unknown) (unknown) (unknown) (no date) (unknown) (unknown) getting any better. There was a conflict with the providers so she decided to (units unknown) (unknown) (unknown) (no date) (unknown) (unknown) home oxygen but only occasionally. Also reports a history of heart failure. (units unknown) (unknown) (unknown) (no date) (unknown) (unknown) lead. (units unknown) (unknown) (unknown) (no date) (unknown) (unknown) leave Against Medica l Advice. She came to this emergency department. Here she (units unknown) (unknown) (unknown) (no date) (unknown) (unknown) lives independently: Yes (units unknown) (unknown) (unknown) (no date) (unknown) (unknown) tereza [From [facility] ] Allergy Verified 07/06/21 13:33 (units unknown) (unknown) (unknown) (no date) (unknown) (unknown) pulmonary vascular congestion bilaterally. (units unknown) (unknown) (unknown) (no date) (unknown) (unknown) records however what the patient states was that she was receiving nebulizer (units unknown) (unknown) (unknown) (no date) (unknown) (unknown) spending approximately 5 days in the hospital for what sounds like a COPD (units unknown) (unknown) (unknown) (no date) (unknown) (unknown) swelling. Patient wa s hypoxic upon arrival. Apparently when she was discharged (units unknown) (unknown) (unknown) (no date) (unknown) (unknown) treatments and was also on ?water restriction'. She states that she was not (units unknown) (unknown) (unknown) (no date) (unknown) (unknown) unremarkable.? (units unknown) (unknown) Result panel [id number] (unknown) (no date) (unknown) (unknown) Detected (units unknown) (unknown) (unknown) (no date) (unknown) (unknown) Not Detected (units unknown) (unknown) (unknown) (no date) (unknown) (unknown) Not Detected (units unknown) (unknown) Result panel 643 (unknown) (no date) (unknown) (unknown) (no value) (units unknown) (unknown) (unknown) (no date) (unknown) (unknown) (past 8 hours): (units unknown) (unknown) (unknown) (no date) (unknown) (unknown) 07/24/22 07/24/22 07/24/22 (units unknown) (unknown) (unknown) (no date) (unknown) (unknown) 07/24/22 12:06 (units unknown) (unknown) (unknown) (no date) (unknown) (unknown) 07/24/22 (units unknown) (unknown) (unknown) (no date) (unknown) (unknown) 11:50 07/24/22 (units unknown) (unknown) (unknown) (no date) (unknown) (unknown) 12:00 (units unknown) (unknown) (unknown) (no date) (unknown) (unknown) 12:06 12:06 12:06 (units unknown) (unknown) (unknown) (no date) (unknown) (unknown) 12:18 07/24/22 (units unknown) (unknown) (unknown) (no date) (unknown) (unknown) 12:30 07/24/22 (units unknown) (unknown) (unknown) (no date) (unknown) (unknown) 12:33 07/24/22 (units unknown) (unknown) (unknown) (no date) (unknown) (unknown) 12:33 (units unknown) (unknown) (unknown) (no date) (unknown) (unknown) 15.8, hematocrit 40.5, platelets 320. Chemistry revealed a sodium of 136, (units unknown) (unknown) (unknown) (no date) (unknown) (unknown) 58731 (units unknown) (unknown) (unknown) (no date) (unknown) (unknown) 3 L of oxygen continuously), chronic systolic congestive heart failure, coronary (units unknown) (unknown) (unknown) (no date) (unknown) (unknown) 50, bicarb 48, O2 sa t 84% on 40% FiO2. Due to her persistent respiratory (units unknown) (unknown) (unknown) (no date) (unknown) (unknown) 57-year-old female with COPD, chronic hypoxic respiratory failure (prescribed 2 (units unknown) (unknown) (unknown) (no date) (unknown) (unknown) ABD: Soft, nontender , nondistended, bowel sounds present in all 4 quadrants, no (units unknown) (unknown) (unknown) (no date) (unknown) (unknown) ALT 74 H (units unknown) (unknown) (unknown) (no date) (unknown) (unknown) AST 31 (units unknown) (unknown) (unknown) (no date) (unknown) (unknown) Age/Sex: 57 / F (units unknown) (unknown) (unknown) (no date) (unknown) (unknown) Albumin 3.8 (units unknown) (unknown) (unknown) (no date) (unknown) (unknown) Albumin/Globulin Ratio 1.2 (units unknown) (unknown) (unknown) (no date) (unknown) (unknown) Alcohol dependence i n remission (units unknown) (unknown) (unknown) (no date) (unknown) (unknown) Alkaline Phosphatase 83 (units unknown) (unknown) (unknown) (no date) (unknown) (unknown) All other systems were reviewed negative (units unknown) (unknown) (unknown) (no date) (unknown) (unknown) Allergies (units unknown) (unknown) (unknown) (no date) (unknown) (unknown) Allergy/AdvReac Type Severity Reaction Status Date / Time (units unknown) (unknown) (unknown) (no date) (unknown) (unknown) Assessment + Plan (units unknown) (unknown) (unknown) (no date) (unknown) (unknown) Atrial fibrillation on chronic anticoagulation with Eliquis (units unknown) (unknown) (unknown) (no date) (unknown) (unknown) BUN 41 H (units unknown) (unknown) (unknown) (no date) (unknown) (unknown) BUN/Creatinine Ratio 51.3 H (units unknown) (unknown) (unknown) (no date) (unknown) (unknown) Baso # (Auto) 0 (units unknown) (unknown) (unknown) (no date) (unknown) (unknown) Baso % (Auto) 0.1 (units unknown) (unknown) (unknown) (no date) (unknown) (unknown) Been Physically Hurt or No (units unknown) (unknown) (unknown) (no date) (unknown) (unknown) Blood Pressure 124/67 (units unknown) (unknown) (unknown) (no date) (unknown) (unknown) Blood Pressure 138/60 (units unknown) (unknown) (unknown) (no date) (unknown) (unknown) CHEST: Respiratory excursions symmetric, clear to auscultation bilaterally (units unknown) (unknown) (unknown) (no date) (unknown) (unknown) CK-MB (CK-2) Rel Index TNP (units unknown) (unknown) (unknown) (no date) (unknown) (unknown) CK-MB (CK-2) TNP (units unknown) (unknown) (unknown) (no date) (unknown) (unknown) CKD 3 (units unknown) (unknown) (unknown) (no date) (unknown) (unknown) COPD (chronic obstructive pulmonary disease) (units unknown) (unknown) (unknown) (no date) (unknown) (unknown) CV: Regular rate and rhythm, no murmurs, rubs, gallops, PMI nondisplaced (units unknown) (unknown) (unknown) (no date) (unknown) (unknown) Calcium 9.5 (units unknown) (unknown) (unknown) (no date) (unknown) (unknown) Carbon Dioxide 38 H (units unknown) (unknown) (unknown) (no date) (unknown) (unknown) Chief complaint: Sob , 'congestive heart failure' per pt (units unknown) (unknown) (unknown) (no date) (unknown) (unknown) Chloride 90 L (units unknown) (unknown) (unknown) (no date) (unknown) (unknown) Chronic hypoxic respiratory failure, prescribed home O2 at 2 L at rest, 3 L with (units unknown) (unknown) (unknown) (no date) (unknown) (unknown) Chronic pain syndrome (units unknown) (unknown) (unknown) (no date) (unknown) (unknown) Chronic systolic congestive heart failure (units unknown) (unknown) (unknown) (no date) (unknown) (unknown) Comment: (units unknown) (unknown) (unknown) (no date) (unknown) (unknown) Coronary artery disease with prior DC (units unknown) (unknown) (unknown) (no date) (unknown) (unknown) Creatinine 0.80 (units unknown) (unknown) (unknown) (no date) (unknown) (unknown) Critical Care time: (units unknown) (unknown) (unknown) (no date) (unknown) (unknown) : 1965 Acct:[id number] (units unknown) (unknown) (unknown) (no date) (unknown) (unknown) Date of Service: 07/24/22 (units unknown) (unknown) (unknown) (no date) (unknown) (unknown) Diabetes mellitus type 2 (units unknown) (unknown) (unknown) (no date) (unknown) (unknown) EXTR: Warm, well perfused, no clubbing/cyanosis/whit ma (units unknown) (unknown) (unknown) (no date) (unknown) (unknown) Environment (units unknown) (unknown) (unknown) (no date) (unknown) (unknown) Eos # (Auto) 0 (units unknown) (unknown) (unknown) (no date) (unknown) (unknown) Eos % (Auto) 0.0 L (units unknown) (unknown) (unknown) (no date) (unknown) (unknown) Estimated GFR > 60 (units unknown) (unknown) (unknown) (no date) (unknown) (unknown) Exam Narrative: (units unknown) (unknown) (unknown) (no date) (unknown) (unknown) Exam (units unknown) (unknown) (unknown) (no date) (unknown) (unknown) Family + Social History (units unknown) (unknown) (unknown) (no date) (unknown) (unknown) Family history: (units unknown) (unknown) (unknown) (no date) (unknown) (unknown) Father from cancer (units unknown) (unknown) (unknown) (no date) (unknown) (unknown) Feels Safe in [place] t Yes (units unknown) (unknown) (unknown) (no date) (unknown) (unknown) Fraction of Inspired Oxygen 36 (units unknown) (unknown) (unknown) (no date) (unknown) (unknown) Fraction of Inspired Oxygen (units unknown) (unknown) (unknown) (no date) (unknown) (unknown) GEN: Alert and oriented x3, no acute distress (units unknown) (unknown) (unknown) (no date) (unknown) (unknown) Globulin 3.2 (units unknown) (unknown) (unknown) (no date) (unknown) (unknown) Glucose 248 H (units unknown) (unknown) (unknown) (no date) (unknown) (unknown) HEENT: Normocephalic , face symmetric, pupils equal round reactive to light, (units unknown) (unknown) (unknown) (no date) (unknown) (unknown) Hct 48.5 H (units unknown) (unknown) (unknown) (no date) (unknown) (unknown) Health on July 19, 2022. She presented complaining of a 1 day history of severe (units unknown) (unknown) (unknown) (no date) (unknown) (unknown) Health today after a 5 day hospitalization. Patient was admitted to [facility] (units unknown) (unknown) (unknown) (no date) (unknown) (unknown) Her primary care provider referred her to hospice in June of this year. She (units unknown) (unknown) (unknown) (no date) (unknown) (unknown) Hgb 15.8 (units unknown) (unknown) (unknown) (no date) (unknown) (unknown) History + Physical Report (units unknown) (unknown) (unknown) (no date) (unknown) (unknown) History of Present Illness (units unknown) (unknown) (unknown) (no date) (unknown) (unknown) History of alcohol dependence in remission (units unknown) (unknown) (unknown) (no date) (unknown) (unknown) History of cardiac arrest, status post AICD placement (units unknown) (unknown) (unknown) (no date) (unknown) (unknown) History of longstanding tobacco abuse (units unknown) (unknown) (unknown) (no date) (unknown) (unknown) Home Medications and Allergies (units unknown) (unknown) (unknown) (no date) (unknown) (unknown) Hyperlipidemia (units unknown) (unknown) (unknown) (no date) (unknown) (unknown) Hypertension (units unknown) (unknown) (unknown) (no date) (unknown) (unknown) I spent a total of [ ] minutes of critical care time on this patient's care (units unknown) (unknown) (unknown) (no date) (unknown) (unknown) Initial lactate was 2.2. ALT was elevated at 74. BNP was 2860. Troponin was (units unknown) (unknown) (unknown) (no date) (unknown) (unknown) [address] [address] (units unknown) (unknown) (unknown) (no date) (unknown) (unknown) L via nasal cannula due to continuing low oxygen saturations. Labs revealed a (units unknown) (unknown) (unknown) (no date) (unknown) (unknown) Laboratory Results - last 24 hr (units unknown) (unknown) (unknown) (no date) (unknown) (unknown) Labs (units unknown) (unknown) (unknown) (no date) (unknown) (unknown) Labs: (units unknown) (unknown) (unknown) (no date) (unknown) (unknown) Lactate 2.2 H (units unknown) (unknown) (unknown) (no date) (unknown) (unknown) Lipase 43 (units unknown) (unknown) (unknown) (no date) (unknown) (unknown) Lymph # (Auto) 1000 L (units unknown) (unknown) (unknown) (no date) (unknown) (unknown) Lymph % (Auto) 5.0 L (units unknown) (unknown) (unknown) (no date) (unknown) (unknown) MCH 30.9 (units unknown) (unknown) (unknown) (no date) (unknown) (unknown) MCHC 32.6 (units unknown) (unknown) (unknown) (no date) (unknown) (unknown) MCV 94.8 (units unknown) (unknown) (unknown) (no date) (unknown) (unknown) Medical History (units unknown) (unknown) (unknown) (no date) (unknown) (unknown) Meds (units unknown) (unknown) (unknown) (no date) (unknown) (unknown) [place] # (Auto) 1400 H (units unknown) (unknown) (unknown) (no date) (unknown) (unknown) [place] % (Auto) 7.0 (units unknown) (unknown) (unknown) (no date) (unknown) (unknown) Mother has Alzheimer's disease, hyperlipidemia, and hypertension (units unknown) (unknown) (unknown) (no date) (unknown) (unknown) NECK: Supple, no lymphadenopathy, thyroid without enlargement or nodularity, (units unknown) (unknown) (unknown) (no date) (unknown) (unknown) NEURO: Alert and oriented x3, cranial nerves 2 through 12 are intact and (units unknown) (unknown) (unknown) (no date) (unknown) (unknown) NT-Pro-B Natriuret Pep 2860 H (units unknown) (unknown) (unknown) (no date) (unknown) (unknown) Narrative (units unknown) (unknown) (unknown) (no date) (unknown) (unknown) Narrative: (units unknown) (unknown) (unknown) (no date) (unknown) (unknown) Neut # (Auto) 57700 H (units unknown) (unknown) (unknown) (no date) (unknown) (unknown) Neut % (Auto) 87.9 H (units unknown) (unknown) (unknown) (no date) (unknown) (unknown) Obesity with BMI of 74 (units unknown) (unknown) (unknown) (no date) (unknown) (unknown) Objective (units unknown) (unknown) (unknown) (no date) (unknown) (unknown) On arrival to the emergency department, patient was noted to be hypoxic at 78% (units unknown) (unknown) (unknown) (no date) (unknown) (unknown) Oxygen Delivery Method Nasal Cannula (units unknown) (unknown) (unknown) (no date) (unknown) (unknown) Oxygen Delivery Method Room Air Nasal Cannula (units unknown) (unknown) (unknown) (no date) (unknown) (unknown) Oxygen Delivery Method (units unknown) (unknown) (unknown) (no date) (unknown) (unknown) Oxygen Flow Rate 4 (units unknown) (unknown) (unknown) (no date) (unknown) (unknown) Oxygen Flow Rate (units unknown) (unknown) (unknown) (no date) (unknown) (unknown) PSYCH: Mood and affect is within normal limits, judgment and insight are (units unknown) (unknown) (unknown) (no date) (unknown) (unknown) Past medical history: (units unknown) (unknown) (unknown) (no date) (unknown) (unknown) Patient History (units unknown) (unknown) (unknown) (no date) (unknown) (unknown) Patient quit smoking in 2020. Prior to that she had smoked 1 and half packs per (units unknown) (unknown) (unknown) (no date) (unknown) (unknown) Patient: Ester Benavides MR#: [id number] (units unknown) (unknown) (unknown) (no date) (unknown) (unknown) Plt Count 320 (units unknown) (unknown) (unknown) (no date) (unknown) (unknown) Potassium 4.1 (units unknown) (unknown) (unknown) (no date) (unknown) (unknown) Procalcitonin 0.06 (units unknown) (unknown) (unknown) (no date) (unknown) (unknown) Provider: Hallie Greco MD (units unknown) (unknown) (unknown) (no date) (unknown) (unknown) Pulse Oximetry 78 L 89 L (units unknown) (unknown) (unknown) (no date) (unknown) (unknown) Pulse Oximetry 91 89 L (units unknown) (unknown) (unknown) (no date) (unknown) (unknown) Pulse Rate 61 61 (units unknown) (unknown) (unknown) (no date) (unknown) (unknown) Pulse Rate 73 89 73 (units unknown) (unknown) (unknown) (no date) (unknown) (unknown) RBC 5.11 (units unknown) (unknown) (unknown) (no date) (unknown) (unknown) RDW 14.0 (units unknown) (unknown) (unknown) (no date) (unknown) (unknown) Respiratory Rate 24 30 H (units unknown) (unknown) (unknown) (no date) (unknown) (unknown) Respiratory Rate 38 H (units unknown) (unknown) (unknown) (no date) (unknown) (unknown) Review of Systems (units unknown) (unknown) (unknown) (no date) (unknown) (unknown) SKIN: Warm and dry, without rash (units unknown) (unknown) (unknown) (no date) (unknown) (unknown) SaO2/FiO2 Ratio 247 (units unknown) (unknown) (unknown) (no date) (unknown) (unknown) Safety + Behavioral: (units unknown) (unknown) (unknown) (no date) (unknown) (unknown) Signed By: (units unknown) (unknown) (unknown) (no date) (unknown) (unknown) Smoking Status Current every day smoker (units unknown) (unknown) (unknown) (no date) (unknown) (unknown) Social History: (units unknown) (unknown) (unknown) (no date) (unknown) (unknown) Social history: (units unknown) (unknown) (unknown) (no date) (unknown) (unknown) Sodium 136 L (units unknown) (unknown) (unknown) (no date) (unknown) (unknown) Substance Use Type does not use (units unknown) (unknown) (unknown) (no date) (unknown) (unknown) Temperature 98.1 F (units unknown) (unknown) (unknown) (no date) (unknown) (unknown) Temperature (units unknown) (unknown) (unknown) (no date) (unknown) (unknown) Threatened By a Person (units unknown) (unknown) (unknown) (no date) (unknown) (unknown) Time Spent With Patient (units unknown) (unknown) (unknown) (no date) (unknown) (unknown) Tobacco + Substance use: (units unknown) (unknown) (unknown) (no date) (unknown) (unknown) Total Bilirubin 0.7 (units unknown) (unknown) (unknown) (no date) (unknown) (unknown) Total Creatine Kinas e 36 (units unknown) (unknown) (unknown) (no date) (unknown) (unknown) Total Protein 7.0 (units unknown) (unknown) (unknown) (no date) (unknown) (unknown) Troponin I < 0.012 (units unknown) (unknown) (unknown) (no date) (unknown) (unknown) Vital Signs (units unknown) (unknown) (unknown) (no date) (unknown) (unknown) WBC 20.6 H (units unknown) (unknown) (unknown) (no date) (unknown) (unknown) [facility] and brought her to [facility] Emergency Department. (units unknown) (unknown) (unknown) (no date) (unknown) (unknown) [Embedded Image Not Available] (units unknown) (unknown) (unknown) (no date) (unknown) (unknown) acetaminophen [From Midol] Allergy Verified 07/06/21 13:33 (units unknown) (unknown) (unknown) (no date) (unknown) (unknown) activity (units unknown) (unknown) (unknown) (no date) (unknown) (unknown) admitted with acute on chronic hypoxic respiratory failure felt to be secondary (units unknown) (unknown) (unknown) (no date) (unknown) (unknown) aggressive interventions for her disease processes. With regard to her coronary (units unknown) (unknown) (unknown) (no date) (unknown) (unknown) appropriate (units unknown) (unknown) (unknown) (no date) (unknown) (unknown) artery disease with her 1st DC at age 29 previous cardiac arrest status post (units unknown) (unknown) (unknown) (no date) (unknown) (unknown) artery disease, she reportedly has had multiple MIs as noted with the 1st 1 (units unknown) (unknown) (unknown) (no date) (unknown) (unknown) be the etiology of her COPD exacerbation. On July 22, she was able to be (units unknown) (unknown) (unknown) (no date) (unknown) (unknown) carotids no bruits (units unknown) (unknown) (unknown) (no date) (unknown) (unknown) class 3 obesity, who presented after leaving Against Medical Advice from [place] (units unknown) (unknown) (unknown) (no date) (unknown) (unknown) codeine Allergy Verified 07/06/21 13:34 (units unknown) (unknown) (unknown) (no date) (unknown) (unknown) combination of both congestive heart failure and COPD exacerbation. She was (units unknown) (unknown) (unknown) (no date) (unknown) (unknown) day for nearly 50 years (units unknown) (unknown) (unknown) (no date) (unknown) (unknown) department to the ICU. RT notes since BiPAP has been placed, her respiratory (units unknown) (unknown) (unknown) (no date) (unknown) (unknown) distress and overall fatigue, BiPAP was placed upon transfer from the emergency (units unknown) (unknown) (unknown) (no date) (unknown) (unknown) diuretics, fluid restriction of 2000 cc, IV Solu-Medrol, and her usual home (units unknown) (unknown) (unknown) (no date) (unknown) (unknown) due to her shortness of breath. She was given steroids and found to have a (units unknown) (unknown) (unknown) (no date) (unknown) (unknown) erythromycin base Allergy Verified 07/06/21 13:34 (units unknown) (unknown) (unknown) (no date) (unknown) (unknown) extraocular movement s intact, sclerae anicteric, conjunctiva clear, nares (units unknown) (unknown) (unknown) (no date) (unknown) (unknown) granddaughter bring in potato chips and extra fluids due to complaining of (units unknown) (unknown) (unknown) (no date) (unknown) (unknown) granddaughter reported over the month prior she had been increasing it to 4 L (units unknown) (unknown) (unknown) (no date) (unknown) (unknown) had an informational visit with hospice but reported she continued to want (units unknown) (unknown) (unknown) (no date) (unknown) (unknown) hypoxic in the emergency department and required supplemental O2. She was (units unknown) (unknown) (unknown) (no date) (unknown) (unknown) in room air. She cam e up to 89% on 4 L. Respiratory rate increased over her (units unknown) (unknown) (unknown) (no date) (unknown) (unknown) leave Against Medica l Advice. She was noted to take her oxygen off and have (units unknown) (unknown) (unknown) (no date) (unknown) (unknown) less than 0.012. Again human metapneumovirus was positive. All other viral (units unknown) (unknown) (unknown) (no date) (unknown) (unknown) lives independently Yes (units unknown) (unknown) (unknown) (no date) (unknown) (unknown) medications. She did test positive for human metapneumovirus which was felt to (units unknown) (unknown) (unknown) (no date) (unknown) (unknown) membranes, dentition is fair (units unknown) (unknown) (unknown) (no date) (unknown) (unknown) occurring at age 29. (units unknown) (unknown) (unknown) (no date) (unknown) (unknown) of severe shortness of breath, an ABG was performed. PH was 7.45, pCO2 69, PO2 (units unknown) (unknown) (unknown) (no date) (unknown) (unknown) organomegaly or masses appreciated (units unknown) (unknown) (unknown) (no date) (unknown) (unknown) pacemaker/AICD placement, diabetes mellitus type 2 on oral antidiabetic agents, (units unknown) (unknown) (unknown) (no date) (unknown) (unknown) pamabrom [From [facility] ] Allergy Verified 07/06/21 13:33 (units unknown) (unknown) (unknown) (no date) (unknown) (unknown) patent, oropharynx reveals an intact soft and hard palate with moist mucous (units unknown) (unknown) (unknown) (no date) (unknown) (unknown) potassium 4.1, chloride 90, bicarb 38, BUN 41, creatinine 0.8, glucose 248. (units unknown) (unknown) (unknown) (no date) (unknown) (unknown) pulmonary vascular congestion. Due to worsening anemia and patient complaints (units unknown) (unknown) (unknown) (no date) (unknown) (unknown) respiratory studies were negative. Chest x-ray revealed cardiomegaly with (units unknown) (unknown) (unknown) (no date) (unknown) (unknown) sats down to 70% debby m air. She ultimately had her granddaughter take her from (units unknown) (unknown) (unknown) (no date) (unknown) (unknown) shortness of breath. She reported using 2-3 L of oxygen continuously but her (units unknown) (unknown) (unknown) (no date) (unknown) (unknown) status is improved. She is presently on FiO2 of 35%. (units unknown) (unknown) (unknown) (no date) (unknown) (unknown) symmetric bilaterally, motor strength 5/5 throughout, sensation intact (units unknown) (unknown) (unknown) (no date) (unknown) (unknown) thirst well on the fluid restricted diet. This morning, patient requested to (units unknown) (unknown) (unknown) (no date) (unknown) (unknown) throughout (units unknown) (unknown) (unknown) (no date) (unknown) (unknown) time in the emergenc y department to a max of 38. She did require titration to 5 (units unknown) (unknown) (unknown) (no date) (unknown) (unknown) to acute on chronic systolic CHF and COPD exacerbation. She was placed on IV (units unknown) (unknown) (unknown) (no date) (unknown) (unknown) today; this time is exclusive of procedural time. (units unknown) (unknown) (unknown) (no date) (unknown) (unknown) weaned from 4 L of oxygen to 3 L of oxygen. However, patient was having her (units unknown) (unknown) (unknown) (no date) (unknown) (unknown) white blood cell count of 20.6 (it was 16 at [facility] today), hemoglobin (units unknown) (unknown) Result panel 644 (unknown) (no date) (unknown) (unknown) (no value) (units unknown) (unknown) (unknown) (no date) (unknown) (unknown) (past 8 hours): (units unknown) (unknown) (unknown) (no date) (unknown) (unknown) 07/24/22 07/24/22 07/24/22 (units unknown) (unknown) (unknown) (no date) (unknown) (unknown) 07/24/22 12:06 (units unknown) (unknown) (unknown) (no date) (unknown) (unknown) 07/24/22 (units unknown) (unknown) (unknown) (no date) (unknown) (unknown) 11:50 07/24/22 (units unknown) (unknown) (unknown) (no date) (unknown) (unknown) 12:00 (units unknown) (unknown) (unknown) (no date) (unknown) (unknown) 12:06 12:06 12:06 (units unknown) (unknown) (unknown) (no date) (unknown) (unknown) 12:18 07/24/22 (units unknown) (unknown) (unknown) (no date) (unknown) (unknown) 12:30 07/24/22 (units unknown) (unknown) (unknown) (no date) (unknown) (unknown) 12:33 07/24/22 (units unknown) (unknown) (unknown) (no date) (unknown) (unknown) 12:33 (units unknown) (unknown) (unknown) (no date) (unknown) (unknown) 15.8, hematocrit 40.5, platelets 320. Chemistry revealed a sodium of 136, (units unknown) (unknown) (unknown) (no date) (unknown) (unknown) 23321 (units unknown) (unknown) (unknown) (no date) (unknown) (unknown) 3 L of oxygen continuously), chronic systolic congestive heart failure, coronary (units unknown) (unknown) (unknown) (no date) (unknown) (unknown) 50, bicarb 48, O2 sa t 84% on 40% FiO2. Due to her persistent respiratory (units unknown) (unknown) (unknown) (no date) (unknown) (unknown) 57-year-old female with COPD, chronic hypoxic respiratory failure (prescribed 2 (units unknown) (unknown) (unknown) (no date) (unknown) (unknown) ABD: Soft, nontender , nondistended, bowel sounds present in all 4 quadrants, no (units unknown) (unknown) (unknown) (no date) (unknown) (unknown) ALT 74 H (units unknown) (unknown) (unknown) (no date) (unknown) (unknown) AST 31 (units unknown) (unknown) (unknown) (no date) (unknown) (unknown) Age/Sex: 57 / F (units unknown) (unknown) (unknown) (no date) (unknown) (unknown) Albumin 3.8 (units unknown) (unknown) (unknown) (no date) (unknown) (unknown) Albumin/Globulin Ratio 1.2 (units unknown) (unknown) (unknown) (no date) (unknown) (unknown) Alcohol dependence i n remission (units unknown) (unknown) (unknown) (no date) (unknown) (unknown) Alkaline Phosphatase 83 (units unknown) (unknown) (unknown) (no date) (unknown) (unknown) All other systems were reviewed negative (units unknown) (unknown) (unknown) (no date) (unknown) (unknown) Allergies (units unknown) (unknown) (unknown) (no date) (unknown) (unknown) Allergy/AdvReac Type Severity Reaction Status Date / Time (units unknown) (unknown) (unknown) (no date) (unknown) (unknown) Assessment + Plan (units unknown) (unknown) (unknown) (no date) (unknown) (unknown) Atrial fibrillation on chronic anticoagulation with Eliquis (units unknown) (unknown) (unknown) (no date) (unknown) (unknown) BUN 41 H (units unknown) (unknown) (unknown) (no date) (unknown) (unknown) BUN/Creatinine Ratio 51.3 H (units unknown) (unknown) (unknown) (no date) (unknown) (unknown) Baso # (Auto) 0 (units unknown) (unknown) (unknown) (no date) (unknown) (unknown) Baso % (Auto) 0.1 (units unknown) (unknown) (unknown) (no date) (unknown) (unknown) Been Physically Hurt or No (units unknown) (unknown) (unknown) (no date) (unknown) (unknown) Blood Pressure 124/67 (units unknown) (unknown) (unknown) (no date) (unknown) (unknown) Blood Pressure 138/60 (units unknown) (unknown) (unknown) (no date) (unknown) (unknown) CHEST: Respiratory excursions symmetric, clear to auscultation bilaterally (units unknown) (unknown) (unknown) (no date) (unknown) (unknown) CK-MB (CK-2) Rel Index TNP (units unknown) (unknown) (unknown) (no date) (unknown) (unknown) CK-MB (CK-2) TNP (units unknown) (unknown) (unknown) (no date) (unknown) (unknown) CKD 3 (units unknown) (unknown) (unknown) (no date) (unknown) (unknown) COPD (chronic obstructive pulmonary disease) (units unknown) (unknown) (unknown) (no date) (unknown) (unknown) CV: Regular rate and rhythm, no murmurs, rubs, gallops, PMI nondisplaced (units unknown) (unknown) (unknown) (no date) (unknown) (unknown) Calcium 9.5 (units unknown) (unknown) (unknown) (no date) (unknown) (unknown) Carbon Dioxide 38 H (units unknown) (unknown) (unknown) (no date) (unknown) (unknown) Chief complaint: Sob , 'congestive heart failure' per pt (units unknown) (unknown) (unknown) (no date) (unknown) (unknown) Chloride 90 L (units unknown) (unknown) (unknown) (no date) (unknown) (unknown) Chronic hypoxic respiratory failure, prescribed home O2 at 2 L at rest, 3 L with (units unknown) (unknown) (unknown) (no date) (unknown) (unknown) Chronic pain syndrome (units unknown) (unknown) (unknown) (no date) (unknown) (unknown) Chronic systolic congestive heart failure (units unknown) (unknown) (unknown) (no date) (unknown) (unknown) Comment: (units unknown) (unknown) (unknown) (no date) (unknown) (unknown) Coronary artery disease with prior DC (units unknown) (unknown) (unknown) (no date) (unknown) (unknown) Creatinine 0.80 (units unknown) (unknown) (unknown) (no date) (unknown) (unknown) Critical Care time: (units unknown) (unknown) (unknown) (no date) (unknown) (unknown) : 1965 Acct:[id number] (units unknown) (unknown) (unknown) (no date) (unknown) (unknown) Date of Service: 07/24/22 (units unknown) (unknown) (unknown) (no date) (unknown) (unknown) Diabetes mellitus type 2 (units unknown) (unknown) (unknown) (no date) (unknown) (unknown) EXTR: Warm, well perfused, no clubbing/cyanosis/whit ma (units unknown) (unknown) (unknown) (no date) (unknown) (unknown) Environment (units unknown) (unknown) (unknown) (no date) (unknown) (unknown) Eos # (Auto) 0 (units unknown) (unknown) (unknown) (no date) (unknown) (unknown) Eos % (Auto) 0.0 L (units unknown) (unknown) (unknown) (no date) (unknown) (unknown) Estimated GFR > 60 (units unknown) (unknown) (unknown) (no date) (unknown) (unknown) Exam Narrative: (units unknown) (unknown) (unknown) (no date) (unknown) (unknown) Exam (units unknown) (unknown) (unknown) (no date) (unknown) (unknown) Family + Social History (units unknown) (unknown) (unknown) (no date) (unknown) (unknown) Family history: (units unknown) (unknown) (unknown) (no date) (unknown) (unknown) Father from cancer (units unknown) (unknown) (unknown) (no date) (unknown) (unknown) Feels Safe in [place] Yes (units unknown) (unknown) (unknown) (no date) (unknown) (unknown) Fraction of Inspired Oxygen 36 (units unknown) (unknown) (unknown) (no date) (unknown) (unknown) Fraction of Inspired Oxygen (units unknown) (unknown) (unknown) (no date) (unknown) (unknown) GEN: Alert and oriented x3, no acute distress (units unknown) (unknown) (unknown) (no date) (unknown) (unknown) Globulin 3.2 (units unknown) (unknown) (unknown) (no date) (unknown) (unknown) Glucose 248 H (units unknown) (unknown) (unknown) (no date) (unknown) (unknown) HEENT: Normocephalic , face symmetric, pupils equal round reactive to light, (units unknown) (unknown) (unknown) (no date) (unknown) (unknown) Hct 48.5 H (units unknown) (unknown) (unknown) (no date) (unknown) (unknown) Health on July 19, 2022. She presented complaining of a 1 day history of severe (units unknown) (unknown) (unknown) (no date) (unknown) (unknown) Health today after a 5 day hospitalization. Patient was admitted to [facility] (units unknown) (unknown) (unknown) (no date) (unknown) (unknown) Her primary care provider referred her to hospice in June of this year. She (units unknown) (unknown) (unknown) (no date) (unknown) (unknown) Hgb 15.8 (units unknown) (unknown) (unknown) (no date) (unknown) (unknown) History + Physical Report (units unknown) (unknown) (unknown) (no date) (unknown) (unknown) History of Present Illness (units unknown) (unknown) (unknown) (no date) (unknown) (unknown) History of alcohol dependence in remission (units unknown) (unknown) (unknown) (no date) (unknown) (unknown) History of cardiac arrest, status post AICD placement (units unknown) (unknown) (unknown) (no date) (unknown) (unknown) History of longstanding tobacco abuse (units unknown) (unknown) (unknown) (no date) (unknown) (unknown) Home Medications and Allergies (units unknown) (unknown) (unknown) (no date) (unknown) (unknown) Hyperlipidemia (units unknown) (unknown) (unknown) (no date) (unknown) (unknown) Hypertension (units unknown) (unknown) (unknown) (no date) (unknown) (unknown) I spent a total of [ ] minutes of critical care time on this patient's care (units unknown) (unknown) (unknown) (no date) (unknown) (unknown) Initial lactate was 2.2. ALT was elevated at 74. BNP was 2860. Troponin was (units unknown) (unknown) (unknown) (no date) (unknown) (unknown) [address] [id number] (units unknown) (unknown) (unknown) (no date) (unknown) (unknown) L via nasal cannula due to continuing low oxygen saturations. Labs revealed a (units unknown) (unknown) (unknown) (no date) (unknown) (unknown) Laboratory Results - last 24 hr (units unknown) (unknown) (unknown) (no date) (unknown) (unknown) Labs (units unknown) (unknown) (unknown) (no date) (unknown) (unknown) Labs: (units unknown) (unknown) (unknown) (no date) (unknown) (unknown) Lactate 2.2 H (units unknown) (unknown) (unknown) (no date) (unknown) (unknown) Lipase 43 (units unknown) (unknown) (unknown) (no date) (unknown) (unknown) Lymph # (Auto) 1000 L (units unknown) (unknown) (unknown) (no date) (unknown) (unknown) Lymph % (Auto) 5.0 L (units unknown) (unknown) (unknown) (no date) (unknown) (unknown) MCH 30.9 (units unknown) (unknown) (unknown) (no date) (unknown) (unknown) MCHC 32.6 (units unknown) (unknown) (unknown) (no date) (unknown) (unknown) MCV 94.8 (units unknown) (unknown) (unknown) (no date) (unknown) (unknown) Medical History (units unknown) (unknown) (unknown) (no date) (unknown) (unknown) Meds (units unknown) (unknown) (unknown) (no date) (unknown) (unknown) [place] # (Auto) 1400 H (units unknown) (unknown) (unknown) (no date) (unknown) (unknown) [place] % (Auto) 7.0 (units unknown) (unknown) (unknown) (no date) (unknown) (unknown) Mother has Alzheimer's disease, hyperlipidemia, and hypertension (units unknown) (unknown) (unknown) (no date) (unknown) (unknown) NECK: Supple, no lymphadenopathy, thyroid without enlargement or nodularity, (units unknown) (unknown) (unknown) (no date) (unknown) (unknown) NEURO: Alert and oriented x3, cranial nerves 2 through 12 are intact and (units unknown) (unknown) (unknown) (no date) (unknown) (unknown) NT-Pro-B Natriuret Pep 2860 H (units unknown) (unknown) (unknown) (no date) (unknown) (unknown) Narrative (units unknown) (unknown) (unknown) (no date) (unknown) (unknown) Narrative: (units unknown) (unknown) (unknown) (no date) (unknown) (unknown) Neut # (Auto) 40817 H (units unknown) (unknown) (unknown) (no date) (unknown) (unknown) Neut % (Auto) 87.9 H (units unknown) (unknown) (unknown) (no date) (unknown) (unknown) Obesity with BMI of 74 (units unknown) (unknown) (unknown) (no date) (unknown) (unknown) Objective (units unknown) (unknown) (unknown) (no date) (unknown) (unknown) On arrival to the emergency department, patient was noted to be hypoxic at 78% (units unknown) (unknown) (unknown) (no date) (unknown) (unknown) Oxygen Delivery Method Nasal Cannula (units unknown) (unknown) (unknown) (no date) (unknown) (unknown) Oxygen Delivery Method Room Air Nasal Cannula (units unknown) (unknown) (unknown) (no date) (unknown) (unknown) Oxygen Delivery Method (units unknown) (unknown) (unknown) (no date) (unknown) (unknown) Oxygen Flow Rate 4 (units unknown) (unknown) (unknown) (no date) (unknown) (unknown) Oxygen Flow Rate (units unknown) (unknown) (unknown) (no date) (unknown) (unknown) PSYCH: Mood and affect is within normal limits, judgment and insight are (units unknown) (unknown) (unknown) (no date) (unknown) (unknown) Past medical history: (units unknown) (unknown) (unknown) (no date) (unknown) (unknown) Patient History (units unknown) (unknown) (unknown) (no date) (unknown) (unknown) Patient quit smoking in 2020. Prior to that she had smoked 1 and half packs per (units unknown) (unknown) (unknown) (no date) (unknown) (unknown) Patient: Ester Benavides MR#: [id number] (units unknown) (unknown) (unknown) (no date) (unknown) (unknown) Plt Count 320 (units unknown) (unknown) (unknown) (no date) (unknown) (unknown) Potassium 4.1 (units unknown) (unknown) (unknown) (no date) (unknown) (unknown) Procalcitonin 0.06 (units unknown) (unknown) (unknown) (no date) (unknown) (unknown) Provider: Hallie Greco MD (units unknown) (unknown) (unknown) (no date) (unknown) (unknown) Pulse Oximetry 78 L 89 L (units unknown) (unknown) (unknown) (no date) (unknown) (unknown) Pulse Oximetry 91 89 L (units unknown) (unknown) (unknown) (no date) (unknown) (unknown) Pulse Rate 61 61 (units unknown) (unknown) (unknown) (no date) (unknown) (unknown) Pulse Rate 73 89 73 (units unknown) (unknown) (unknown) (no date) (unknown) (unknown) RBC 5.11 (units unknown) (unknown) (unknown) (no date) (unknown) (unknown) RDW 14.0 (units unknown) (unknown) (unknown) (no date) (unknown) (unknown) Respiratory Rate 24 30 H (units unknown) (unknown) (unknown) (no date) (unknown) (unknown) Respiratory Rate 38 H (units unknown) (unknown) (unknown) (no date) (unknown) (unknown) Review of Systems (units unknown) (unknown) (unknown) (no date) (unknown) (unknown) SKIN: Warm and dry, without rash (units unknown) (unknown) (unknown) (no date) (unknown) (unknown) SaO2/FiO2 Ratio 247 (units unknown) (unknown) (unknown) (no date) (unknown) (unknown) Safety + Behavioral: (units unknown) (unknown) (unknown) (no date) (unknown) (unknown) Signed By: (units unknown) (unknown) (unknown) (no date) (unknown) (unknown) Smoking Status Current every day smoker (units unknown) (unknown) (unknown) (no date) (unknown) (unknown) Social History: (units unknown) (unknown) (unknown) (no date) (unknown) (unknown) Social history: (units unknown) (unknown) (unknown) (no date) (unknown) (unknown) Sodium 136 L (units unknown) (unknown) (unknown) (no date) (unknown) (unknown) Substance Use Type does not use (units unknown) (unknown) (unknown) (no date) (unknown) (unknown) Temperature 98.1 F (units unknown) (unknown) (unknown) (no date) (unknown) (unknown) Temperature (units unknown) (unknown) (unknown) (no date) (unknown) (unknown) Threatened By a Person (units unknown) (unknown) (unknown) (no date) (unknown) (unknown) Time Spent With Patient (units unknown) (unknown) (unknown) (no date) (unknown) (unknown) Tobacco + Substance use: (units unknown) (unknown) (unknown) (no date) (unknown) (unknown) Total Bilirubin 0.7 (units unknown) (unknown) (unknown) (no date) (unknown) (unknown) Total Creatine Kinas e 36 (units unknown) (unknown) (unknown) (no date) (unknown) (unknown) Total Protein 7.0 (units unknown) (unknown) (unknown) (no date) (unknown) (unknown) Troponin I < 0.012 (units unknown) (unknown) (unknown) (no date) (unknown) (unknown) Vital Signs (units unknown) (unknown) (unknown) (no date) (unknown) (unknown) WBC 20.6 H (units unknown) (unknown) (unknown) (no date) (unknown) (unknown) [facility] Emergency Department. (units unknown) (unknown) (unknown) (no date) (unknown) (unknown) [Embedded Image Not Available] (units unknown) (unknown) (unknown) (no date) (unknown) (unknown) acetaminophen [From [facility]] Allergy Verified 07/06/21 13:33 (units unknown) (unknown) (unknown) (no date) (unknown) (unknown) activity (units unknown) (unknown) (unknown) (no date) (unknown) (unknown) admitted with acute on chronic hypoxic respiratory failure felt to be secondary (units unknown) (unknown) (unknown) (no date) (unknown) (unknown) aggressive interventions for her disease processes. With regard to her coronary (units unknown) (unknown) (unknown) (no date) (unknown) (unknown) appropriate (units unknown) (unknown) (unknown) (no date) (unknown) (unknown) artery disease with her 1st DC at age 29 previous cardiac arrest status post (units unknown) (unknown) (unknown) (no date) (unknown) (unknown) artery disease, she reportedly has had multiple MIs as noted with the 1st 1 (units unknown) (unknown) (unknown) (no date) (unknown) (unknown) be the etiology of her COPD exacerbation. On July 22, she was able to be (units unknown) (unknown) (unknown) (no date) (unknown) (unknown) carotids no bruits (units unknown) (unknown) (unknown) (no date) (unknown) (unknown) class 3 obesity, who presented after leaving Against Medical Advice from [facility] (units unknown) (unknown) (unknown) (no date) (unknown) (unknown) codeine Allergy Verified 07/06/21 13:34 (units unknown) (unknown) (unknown) (no date) (unknown) (unknown) combination of both congestive heart failure and COPD exacerbation. She was (units unknown) (unknown) (unknown) (no date) (unknown) (unknown) day for nearly 50 years (units unknown) (unknown) (unknown) (no date) (unknown) (unknown) department to the ICU. RT notes since BiPAP has been placed, her respiratory (units unknown) (unknown) (unknown) (no date) (unknown) (unknown) distress and overall fatigue, BiPAP was placed upon transfer from the emergency (units unknown) (unknown) (unknown) (no date) (unknown) (unknown) diuretics, fluid restriction of 2000 cc, IV Solu-Medrol, and her usual home (units unknown) (unknown) (unknown) (no date) (unknown) (unknown) due to her shortness of breath. She was given steroids and found to have a (units unknown) (unknown) (unknown) (no date) (unknown) (unknown) erythromycin base Allergy Verified 07/06/21 13:34 (units unknown) (unknown) (unknown) (no date) (unknown) (unknown) extraocular movement s intact, sclerae anicteric, conjunctiva clear, nares (units unknown) (unknown) (unknown) (no date) (unknown) (unknown) feeling better with the BiPAP. She also reiterates her full code status. (units unknown) (unknown) (unknown) (no date) (unknown) (unknown) granddaughter bring in potato chips and extra fluids due to complaining of (units unknown) (unknown) (unknown) (no date) (unknown) (unknown) granddaughter reported over the month prior she had been increasing it to 4 L (units unknown) (unknown) (unknown) (no date) (unknown) (unknown) had an informational visit with hospice but reported she continued to want (units unknown) (unknown) (unknown) (no date) (unknown) (unknown) hypoxic in the emergency department and required supplemental O2. She was (units unknown) (unknown) (unknown) (no date) (unknown) (unknown) in room air. She cam e up to 89% on 4 L. Respiratory rate increased over her (units unknown) (unknown) (unknown) (no date) (unknown) (unknown) leave Against Medica l Advice. She was noted to take her oxygen off and have (units unknown) (unknown) (unknown) (no date) (unknown) (unknown) less than 0.012. Again human metapneumovirus was positive. All other viral (units unknown) (unknown) (unknown) (no date) (unknown) (unknown) lives independently Yes (units unknown) (unknown) (unknown) (no date) (unknown) (unknown) medications. She did test positive for human metapneumovirus which was felt to (units unknown) (unknown) (unknown) (no date) (unknown) (unknown) membranes, dentition is fair (units unknown) (unknown) (unknown) (no date) (unknown) (unknown) occurring at age 29. (units unknown) (unknown) (unknown) (no date) (unknown) (unknown) of severe shortness of breath, an ABG was performed. PH was 7.45, pCO2 69, PO2 (units unknown) (unknown) (unknown) (no date) (unknown) (unknown) organomegaly or masses appreciated (units unknown) (unknown) (unknown) (no date) (unknown) (unknown) pacemaker/AICD placement, diabetes mellitus type 2 on oral antidiabetic agents, (units unknown) (unknown) (unknown) (no date) (unknown) (unknown) pamabrom [From [facility] ] Allergy Verified 07/06/21 13:33 (units unknown) (unknown) (unknown) (no date) (unknown) (unknown) patent, oropharynx reveals an intact soft and hard palate with moist mucous (units unknown) (unknown) (unknown) (no date) (unknown) (unknown) potassium 4.1, chloride 90, bicarb 38, BUN 41, creatinine 0.8, glucose 248. (units unknown) (unknown) (unknown) (no date) (unknown) (unknown) pulmonary vascular congestion. Due to worsening anemia and patient complaints (units unknown) (unknown) (unknown) (no date) (unknown) (unknown) respiratory studies were negative. Chest x-ray revealed cardiomegaly with (units unknown) (unknown) (unknown) (no date) (unknown) (unknown) sats down to 70% debby m air. She ultimately had her granddaughter take her from (units unknown) (unknown) (unknown) (no date) (unknown) (unknown) shortness of breath. She reported using 2-3 L of oxygen continuously but her (units unknown) (unknown) (unknown) (no date) (unknown) (unknown) status is improved. She is presently on FiO2 of 35%. She does answer questions (units unknown) (unknown) (unknown) (no date) (unknown) (unknown) symmetric bilaterally, motor strength 5/5 throughout, sensation intact (units unknown) (unknown) (unknown) (no date) (unknown) (unknown) thirst well on the fluid restricted diet. This morning, patient requested to (units unknown) (unknown) (unknown) (no date) (unknown) (unknown) throughout (units unknown) (unknown) (unknown) (no date) (unknown) (unknown) time in the emergenc y department to a max of 38. She did require titration to 5 (units unknown) (unknown) (unknown) (no date) (unknown) (unknown) to acute on chronic systolic CHF and COPD exacerbation. She was placed on IV (units unknown) (unknown) (unknown) (no date) (unknown) (unknown) today; this time is exclusive of procedural time. (units unknown) (unknown) (unknown) (no date) (unknown) (unknown) weaned from 4 L of oxygen to 3 L of oxygen. However, patient was having her (units unknown) (unknown) (unknown) (no date) (unknown) (unknown) white blood cell count of 20.6 (it was 16 at [facility] today), hemoglobin (units unknown) (unknown) (unknown) (no date) (unknown) (unknown) with a brief shake her head yes or no. She does outer head yes that she is (units unknown) (unknown) Result panel 645 (unknown) (no date) (unknown) (unknown) (no value) (units unknown) (unknown) (unknown) (no date) (unknown) (unknown) (past 8 hours): (units unknown) (unknown) (unknown) (no date) (unknown) (unknown) 07/24/22 07/24/22 07/24/22 (units unknown) (unknown) (unknown) (no date) (unknown) (unknown) 07/24/22 12:06 (units unknown) (unknown) (unknown) (no date) (unknown) (unknown) 07/24/22 1535 (units unknown) (unknown) (unknown) (no date) (unknown) (unknown) 07/24/22 (units unknown) (unknown) (unknown) (no date) (unknown) (unknown) 1. Acute on chronic hypoxic and hypercarbic respiratory failure (units unknown) (unknown) (unknown) (no date) (unknown) (unknown) 10. Reported CKD stage 3 (units unknown) (unknown) (unknown) (no date) (unknown) (unknown) 11. Chronic pain syndrome (units unknown) (unknown) (unknown) (no date) (unknown) (unknown) 11:50 07/24/22 (units unknown) (unknown) (unknown) (no date) (unknown) (unknown) 12. Hypertension (units unknown) (unknown) (unknown) (no date) (unknown) (unknown) 12:00 (units unknown) (unknown) (unknown) (no date) (unknown) (unknown) 12:06 12:06 12:06 (units unknown) (unknown) (unknown) (no date) (unknown) (unknown) 12:18 07/24/22 (units unknown) (unknown) (unknown) (no date) (unknown) (unknown) 12:30 07/24/22 (units unknown) (unknown) (unknown) (no date) (unknown) (unknown) 12:33 07/24/22 (units unknown) (unknown) (unknown) (no date) (unknown) (unknown) 12:33 (units unknown) (unknown) (unknown) (no date) (unknown) (unknown) 13. Hyperlipidemia (units unknown) (unknown) (unknown) (no date) (unknown) (unknown) 15.8, hematocrit 40.5, platelets 320. Chemistry revealed a sodium of 136, (units unknown) (unknown) (unknown) (no date) (unknown) (unknown) 25261 (units unknown) (unknown) (unknown) (no date) (unknown) (unknown) 2. Acute on chronic systolic congestive heart failure exacerbation (units unknown) (unknown) (unknown) (no date) (unknown) (unknown) 3 L of oxygen continuously), chronic systolic congestive heart failure, coronary (units unknown) (unknown) (unknown) (no date) (unknown) (unknown) 3. COPD exacerbation , likely secondary to metapneumovirus infection (units unknown) (unknown) (unknown) (no date) (unknown) (unknown) 4. Metapneumovirus infection (units unknown) (unknown) (unknown) (no date) (unknown) (unknown) 5. Coronary artery disease with prior DC (units unknown) (unknown) (unknown) (no date) (unknown) (unknown) 50, bicarb 48, O2 sa t 84% on 40% FiO2. Due to her persistent respiratory (units unknown) (unknown) (unknown) (no date) (unknown) (unknown) 57-year-old female with COPD, chronic hypoxic respiratory failure (prescribed 2 (units unknown) (unknown) (unknown) (no date) (unknown) (unknown) 6. History of cardia c arrest, status post pacemaker/AICD placement (units unknown) (unknown) (unknown) (no date) (unknown) (unknown) 7. Atrial fibrillation on chronic anticoagulation with Eliquis (units unknown) (unknown) (unknown) (no date) (unknown) (unknown) 8. Diabetes mellitus type 2 (units unknown) (unknown) (unknown) (no date) (unknown) (unknown) 9. Class 3 obesity with BMI of 42.2 (units unknown) (unknown) (unknown) (no date) (unknown) (unknown) ABD: Firm, obese, nontender, nondistended, bowel sounds present in all 4 (units unknown) (unknown) (unknown) (no date) (unknown) (unknown) ALT 74 H (units unknown) (unknown) (unknown) (no date) (unknown) (unknown) AST 31 (units unknown) (unknown) (unknown) (no date) (unknown) (unknown) Admit to ICU with eICU consult. I personally spoke with Dr. Medeiros. (units unknown) (unknown) (unknown) (no date) (unknown) (unknown) Age/Sex: 57 / F (units unknown) (unknown) (unknown) (no date) (unknown) (unknown) Albumin 3.8 (units unknown) (unknown) (unknown) (no date) (unknown) (unknown) Albumin/Globulin Ratio 1.2 (units unknown) (unknown) (unknown) (no date) (unknown) (unknown) Alcohol dependence i n remission (units unknown) (unknown) (unknown) (no date) (unknown) (unknown) Alkaline Phosphatase 83 (units unknown) (unknown) (unknown) (no date) (unknown) (unknown) Allergies (units unknown) (unknown) (unknown) (no date) (unknown) (unknown) Allergy/AdvReac Type Severity Reaction Status Date / Time (units unknown) (unknown) (unknown) (no date) (unknown) (unknown) Appears to be on Eliquis chronically. Await medication reconciliation (units unknown) (unknown) (unknown) (no date) (unknown) (unknown) As noted, outside documentation shows history of CKD 3. However here her GFR (units unknown) (unknown) (unknown) (no date) (unknown) (unknown) Assessment + Plan narrative: (units unknown) (unknown) (unknown) (no date) (unknown) (unknown) Assessment + Plan (units unknown) (unknown) (unknown) (no date) (unknown) (unknown) Atrial fibrillation on chronic anticoagulation with Eliquis (units unknown) (unknown) (unknown) (no date) (unknown) (unknown) Await medication reconciliation to confirm meds. (units unknown) (unknown) (unknown) (no date) (unknown) (unknown) BUN 41 H (units unknown) (unknown) (unknown) (no date) (unknown) (unknown) BUN/Creatinine Ratio 51.3 H (units unknown) (unknown) (unknown) (no date) (unknown) (unknown) Baso # (Auto) 0 (units unknown) (unknown) (unknown) (no date) (unknown) (unknown) Baso % (Auto) 0.1 (units unknown) (unknown) (unknown) (no date) (unknown) (unknown) Been Physically Hurt or No (units unknown) (unknown) (unknown) (no date) (unknown) (unknown) Blood Pressure 124/67 (units unknown) (unknown) (unknown) (no date) (unknown) (unknown) Blood Pressure 138/60 (units unknown) (unknown) (unknown) (no date) (unknown) (unknown) Blood pressures are normotensive here. Await medication reconciliation to (units unknown) (unknown) (unknown) (no date) (unknown) (unknown) CHEST: Respiratory excursions symmetric, clear to auscultation bilaterally (units unknown) (unknown) (unknown) (no date) (unknown) (unknown) CK-MB (CK-2) Rel Index TNP (units unknown) (unknown) (unknown) (no date) (unknown) (unknown) CK-MB (CK-2) TNP (units unknown) (unknown) (unknown) (no date) (unknown) (unknown) CKD 3 (units unknown) (unknown) (unknown) (no date) (unknown) (unknown) COPD (chronic obstructive pulmonary disease) (units unknown) (unknown) (unknown) (no date) (unknown) (unknown) CV: Regular rate and rhythm, no murmurs, rubs, gallops, PMI can not be palpated (units unknown) (unknown) (unknown) (no date) (unknown) (unknown) Calcium 9.5 (units unknown) (unknown) (unknown) (no date) (unknown) (unknown) Carbon Dioxide 38 H (units unknown) (unknown) (unknown) (no date) (unknown) (unknown) Chief complaint: Sob , 'congestive heart failure' per pt (units unknown) (unknown) (unknown) (no date) (unknown) (unknown) Chloride 90 L (units unknown) (unknown) (unknown) (no date) (unknown) (unknown) Chronic hypoxic respiratory failure, prescribed home O2 at 2 L at rest, 3 L with (units unknown) (unknown) (unknown) (no date) (unknown) (unknown) Chronic pain syndrome (units unknown) (unknown) (unknown) (no date) (unknown) (unknown) Chronic systolic congestive heart failure ejection fraction not known (units unknown) (unknown) (unknown) (no date) (unknown) (unknown) Code status (units unknown) (unknown) (unknown) (no date) (unknown) (unknown) Comment: (units unknown) (unknown) (unknown) (no date) (unknown) (unknown) Congestive heart failure noted on chest x-ray as well as on previous imaging (units unknown) (unknown) (unknown) (no date) (unknown) (unknown) Continue diuresis as noted above with IV Lasix and Diamox. She does have (units unknown) (unknown) (unknown) (no date) (unknown) (unknown) Continue her outpatient respiratory medications. As noted, continue IV Solu (units unknown) (unknown) (unknown) (no date) (unknown) (unknown) Coronary artery disease with prior DC (units unknown) (unknown) (unknown) (no date) (unknown) (unknown) Creatinine 0.80 (units unknown) (unknown) (unknown) (no date) (unknown) (unknown) Critical Care time: (units unknown) (unknown) (unknown) (no date) (unknown) (unknown) : 1965 Acct:[id number] (units unknown) (unknown) (unknown) (no date) (unknown) (unknown) Date of Service: 07/24/22 (units unknown) (unknown) (unknown) (no date) (unknown) (unknown) Diabetes mellitus type 2 (units unknown) (unknown) (unknown) (no date) (unknown) (unknown) Disposition (units unknown) (unknown) (unknown) (no date) (unknown) (unknown) EXTR: Warm, well perfused, no clubbing/cyanosis/whit ma (units unknown) (unknown) (unknown) (no date) (unknown) (unknown) Environment (units unknown) (unknown) (unknown) (no date) (unknown) (unknown) Eos # (Auto) 0 (units unknown) (unknown) (unknown) (no date) (unknown) (unknown) Eos % (Auto) 0.0 L (units unknown) (unknown) (unknown) (no date) (unknown) (unknown) Estimated GFR > 60 (units unknown) (unknown) (unknown) (no date) (unknown) (unknown) Exam Narrative: (units unknown) (unknown) (unknown) (no date) (unknown) (unknown) Exam (units unknown) (unknown) (unknown) (no date) (unknown) (unknown) Family + Social History (units unknown) (unknown) (unknown) (no date) (unknown) (unknown) Family history: (units unknown) (unknown) (unknown) (no date) (unknown) (unknown) Father from cancer (units unknown) (unknown) (unknown) (no date) (unknown) (unknown) Feels Safe in [place] t Yes (units unknown) (unknown) (unknown) (no date) (unknown) (unknown) Fraction of Inspired Oxygen 36 (units unknown) (unknown) (unknown) (no date) (unknown) (unknown) Fraction of Inspired Oxygen (units unknown) (unknown) (unknown) (no date) (unknown) (unknown) Full (units unknown) (unknown) (unknown) (no date) (unknown) (unknown) GEN: Acutely and chronically ill-appearing middle-aged female, drowsy but (units unknown) (unknown) (unknown) (no date) (unknown) (unknown) Globulin 3.2 (units unknown) (unknown) (unknown) (no date) (unknown) (unknown) Glucose 248 H (units unknown) (unknown) (unknown) (no date) (unknown) (unknown) HEENT: Normocephalic , face symmetric, pupils equal round reactive to light, (units unknown) (unknown) (unknown) (no date) (unknown) (unknown) Hct 48.5 H (units unknown) (unknown) (unknown) (no date) (unknown) (unknown) Health on July 19, 2022. She presented complaining of a 1 day history of severe (units unknown) (unknown) (unknown) (no date) (unknown) (unknown) Health today after a 5 day hospitalization. Patient was admitted to [facility] (units unknown) (unknown) (unknown) (no date) (unknown) (unknown) Her obesity puts her at significant risk of morbidity and mortality. Would (units unknown) (unknown) (unknown) (no date) (unknown) (unknown) Her primary care provider referred her to hospice in June of this year. She (units unknown) (unknown) (unknown) (no date) (unknown) (unknown) Hgb 15.8 (units unknown) (unknown) (unknown) (no date) (unknown) (unknown) History + Physical Report (units unknown) (unknown) (unknown) (no date) (unknown) (unknown) History of Present Illness (units unknown) (unknown) (unknown) (no date) (unknown) (unknown) History of alcohol dependence in remission (units unknown) (unknown) (unknown) (no date) (unknown) (unknown) History of cardiac arrest, status post pacemaker/AICD placement (units unknown) (unknown) (unknown) (no date) (unknown) (unknown) History of longstanding tobacco abuse (units unknown) (unknown) (unknown) (no date) (unknown) (unknown) Home Medications and Allergies (units unknown) (unknown) (unknown) (no date) (unknown) (unknown) Hyperlipidemia (units unknown) (unknown) (unknown) (no date) (unknown) (unknown) Hypertension (units unknown) (unknown) (unknown) (no date) (unknown) (unknown) I spent a total of [ ] minutes of critical care time on this patient's care (units unknown) (unknown) (unknown) (no date) (unknown) (unknown) Initial lactate was 2.2. ALT was elevated at 74. BNP was 2860. Troponin was (units unknown) (unknown) (unknown) (no date) (unknown) (unknown) [address] [address] (units unknown) (unknown) (unknown) (no date) (unknown) (unknown) L via nasal cannula due to continuing low oxygen saturations. Labs revealed a (units unknown) (unknown) (unknown) (no date) (unknown) (unknown) Laboratory Results - last 24 hr (units unknown) (unknown) (unknown) (no date) (unknown) (unknown) Labs (units unknown) (unknown) (unknown) (no date) (unknown) (unknown) Labs: (units unknown) (unknown) (unknown) (no date) (unknown) (unknown) Lactate 2.2 H (units unknown) (unknown) (unknown) (no date) (unknown) (unknown) Lipase 43 (units unknown) (unknown) (unknown) (no date) (unknown) (unknown) Lymph # (Auto) 1000 L (units unknown) (unknown) (unknown) (no date) (unknown) (unknown) Lymph % (Auto) 5.0 L (units unknown) (unknown) (unknown) (no date) (unknown) (unknown) MCH 30.9 (units unknown) (unknown) (unknown) (no date) (unknown) (unknown) MCHC 32.6 (units unknown) (unknown) (unknown) (no date) (unknown) (unknown) MCV 94.8 (units unknown) (unknown) (unknown) (no date) (unknown) (unknown) Medical History (units unknown) (unknown) (unknown) (no date) (unknown) (unknown) Medrol 80 mg q.12. Will start budesonide as well. Duo nebs 4 times daily (units unknown) (unknown) (unknown) (no date) (unknown) (unknown) Meds (units unknown) (unknown) (unknown) (no date) (unknown) (unknown) [place] # (Auto) 1400 H (units unknown) (unknown) (unknown) (no date) (unknown) (unknown) [place] % (Auto) 7.0 (units unknown) (unknown) (unknown) (no date) (unknown) (unknown) Mother has Alzheimer's disease, hyperlipidemia, and hypertension (units unknown) (unknown) (unknown) (no date) (unknown) (unknown) NECK: Supple, no lymphadenopathy, can not palpate any thyroid nodularity, (units unknown) (unknown) (unknown) (no date) (unknown) (unknown) NEURO: Drowsy, follows simple commands, ears grossly intact (units unknown) (unknown) (unknown) (no date) (unknown) (unknown) NT-Pro-B Natriuret Pep 2860 H (units unknown) (unknown) (unknown) (no date) (unknown) (unknown) Narrative (units unknown) (unknown) (unknown) (no date) (unknown) (unknown) Narrative: (units unknown) (unknown) (unknown) (no date) (unknown) (unknown) Neut # (Auto) 74631 H (units unknown) (unknown) (unknown) (no date) (unknown) (unknown) Neut % (Auto) 87.9 H (units unknown) (unknown) (unknown) (no date) (unknown) (unknown) No RVR at this time. Regular on exam. Await medication reconciliation to (units unknown) (unknown) (unknown) (no date) (unknown) (unknown) Obesity with BMI of 74 (units unknown) (unknown) (unknown) (no date) (unknown) (unknown) Objective (units unknown) (unknown) (unknown) (no date) (unknown) (unknown) On arrival to the emergency department, patient was noted to be hypoxic at 78% (units unknown) (unknown) (unknown) (no date) (unknown) (unknown) On oral medications only per report. A1c at the outside facility was reported (units unknown) (unknown) (unknown) (no date) (unknown) (unknown) Oxygen Delivery Method Nasal Cannula (units unknown) (unknown) (unknown) (no date) (unknown) (unknown) Oxygen Delivery Method Room Air Nasal Cannula (units unknown) (unknown) (unknown) (no date) (unknown) (unknown) Oxygen Delivery Method (units unknown) (unknown) (unknown) (no date) (unknown) (unknown) Oxygen Flow Rate 4 (units unknown) (unknown) (unknown) (no date) (unknown) (unknown) Oxygen Flow Rate (units unknown) (unknown) (unknown) (no date) (unknown) (unknown) PSYCH: Mood, affect, judgment, and insight can not be assessed (units unknown) (unknown) (unknown) (no date) (unknown) (unknown) Past medical history: (units unknown) (unknown) (unknown) (no date) (unknown) (unknown) Patient History (units unknown) (unknown) (unknown) (no date) (unknown) (unknown) Patient presents after leaving outside hospital Against Medical Advice after a 5 (units unknown) (unknown) (unknown) (no date) (unknown) (unknown) Patient quit smoking in 2020. Prior to that she had smoked 1 and half packs per (units unknown) (unknown) (unknown) (no date) (unknown) (unknown) Patient: Ester Benavides MR#: [id number] (units unknown) (unknown) (unknown) (no date) (unknown) (unknown) Per outside records, she reports receiving a shock a couple of times a year. I (units unknown) (unknown) (unknown) (no date) (unknown) (unknown) Plt Count 320 (units unknown) (unknown) (unknown) (no date) (unknown) (unknown) Potassium 4.1 (units unknown) (unknown) (unknown) (no date) (unknown) (unknown) Procalcitonin 0.06 (units unknown) (unknown) (unknown) (no date) (unknown) (unknown) Prophylaxis (units unknown) (unknown) (unknown) (no date) (unknown) (unknown) Provider: Hallie Greco MD (units unknown) (unknown) (unknown) (no date) (unknown) (unknown) Pulse Oximetry 78 L 89 L (units unknown) (unknown) (unknown) (no date) (unknown) (unknown) Pulse Oximetry 91 89 L (units unknown) (unknown) (unknown) (no date) (unknown) (unknown) Pulse Rate 61 61 (units unknown) (unknown) (unknown) (no date) (unknown) (unknown) Pulse Rate 73 89 73 (units unknown) (unknown) (unknown) (no date) (unknown) (unknown) RBC 5.11 (units unknown) (unknown) (unknown) (no date) (unknown) (unknown) RDW 14.0 (units unknown) (unknown) (unknown) (no date) (unknown) (unknown) Respiratory Rate 24 30 H (units unknown) (unknown) (unknown) (no date) (unknown) (unknown) Respiratory Rate 38 H (units unknown) (unknown) (unknown) (no date) (unknown) (unknown) Review of Systems (units unknown) (unknown) (unknown) (no date) (unknown) (unknown) SKIN: Warm and dry, without rash (units unknown) (unknown) (unknown) (no date) (unknown) (unknown) SaO2/FiO2 Ratio 247 (units unknown) (unknown) (unknown) (no date) (unknown) (unknown) Safety + Behavioral: (units unknown) (unknown) (unknown) (no date) (unknown) (unknown) She tested positive both at the outside hospital and on today's labs. She is (units unknown) (unknown) (unknown) (no date) (unknown) (unknown) Signed By:<Electronically signed by Hallie Greco MD> (units unknown) (unknown) (unknown) (no date) (unknown) (unknown) Smoking Status Current every day smoker (units unknown) (unknown) (unknown) (no date) (unknown) (unknown) Social History: (units unknown) (unknown) (unknown) (no date) (unknown) (unknown) Social history: (units unknown) (unknown) (unknown) (no date) (unknown) (unknown) Sodium 136 L (units unknown) (unknown) (unknown) (no date) (unknown) (unknown) Substance Use Type does not use (units unknown) (unknown) (unknown) (no date) (unknown) (unknown) Temperature 98.1 F (units unknown) (unknown) (unknown) (no date) (unknown) (unknown) Temperature (units unknown) (unknown) (unknown) (no date) (unknown) (unknown) Threatened By a Person (units unknown) (unknown) (unknown) (no date) (unknown) (unknown) Time Spent With Patient (units unknown) (unknown) (unknown) (no date) (unknown) (unknown) Tobacco + Substance use: (units unknown) (unknown) (unknown) (no date) (unknown) (unknown) Total Bilirubin 0.7 (units unknown) (unknown) (unknown) (no date) (unknown) (unknown) Total Creatine Kinas e 36 (units unknown) (unknown) (unknown) (no date) (unknown) (unknown) Total Protein 7.0 (units unknown) (unknown) (unknown) (no date) (unknown) (unknown) Troponin I < 0.012 (units unknown) (unknown) (unknown) (no date) (unknown) (unknown) Troponin here is negative. Await medication reconciliation. (units unknown) (unknown) (unknown) (no date) (unknown) (unknown) URI symptoms for the duration of her hospitalization at the outside hospital. (units unknown) (unknown) (unknown) (no date) (unknown) (unknown) Unable to obtain review of systems secondary to patient's respiratory status (units unknown) (unknown) (unknown) (no date) (unknown) (unknown) Vital Signs (units unknown) (unknown) (unknown) (no date) (unknown) (unknown) WBC 20.6 H (units unknown) (unknown) (unknown) (no date) (unknown) (unknown) [facility] and brought her to [facility] Emergency Department. (units unknown) (unknown) (unknown) (no date) (unknown) (unknown) [Embedded Image Not Available] (units unknown) (unknown) (unknown) (no date) (unknown) (unknown) acetaminophen [From [facility]] Allergy Verified 07/06/21 13:33 (units unknown) (unknown) (unknown) (no date) (unknown) (unknown) activity (units unknown) (unknown) (unknown) (no date) (unknown) (unknown) admitted with acute on chronic hypoxic respiratory failure felt to be secondary (units unknown) (unknown) (unknown) (no date) (unknown) (unknown) afebrile. She does have a leukocytosis but this is likely steroid induced (units unknown) (unknown) (unknown) (no date) (unknown) (unknown) aggressive interventions for her disease processes. With regard to her coronary (units unknown) (unknown) (unknown) (no date) (unknown) (unknown) also report of CKD 3 , but here her creatinine is normal at 0.8. We will monitor (units unknown) (unknown) (unknown) (no date) (unknown) (unknown) am uncertain when sh e last had her device interrogated. (units unknown) (unknown) (unknown) (no date) (unknown) (unknown) and creatinine are normal. Will monitor. (units unknown) (unknown) (unknown) (no date) (unknown) (unknown) appears reasonably well compensated by her ABG. (units unknown) (unknown) (unknown) (no date) (unknown) (unknown) artery disease with her 1st DC at age 29 previous cardiac arrest status post (units unknown) (unknown) (unknown) (no date) (unknown) (unknown) artery disease, she reportedly has had multiple MIs as noted with the 1st 1 (units unknown) (unknown) (unknown) (no date) (unknown) (unknown) be the etiology of her COPD exacerbation. On July 22, she was able to be (units unknown) (unknown) (unknown) (no date) (unknown) (unknown) carotid arteries can not be heard over the BiPAP and respiratory noises (units unknown) (unknown) (unknown) (no date) (unknown) (unknown) class 3 obesity, who [facility] (units [facility]) (unknown) (unknown) (no date) (unknown) (unknown) codeine Allergy Verified 07/06/21 13:34 (units unknown) (unknown) (unknown) (no date) (unknown) (unknown) combination of both congestive heart failure and COPD exacerbation. She was (units unknown) (unknown) (unknown) (no date) (unknown) (unknown) confirm meds. (units unknown) (unknown) (unknown) (no date) (unknown) (unknown) confirm that she is indeed taking Eliquis at this time. (units unknown) (unknown) (unknown) (no date) (unknown) (unknown) continue BiPAP for relief of her severe respiratory distress. Fortunately, she (units unknown) (unknown) (unknown) (no date) (unknown) (unknown) day for nearly 50 years (units unknown) (unknown) (unknown) (no date) (unknown) (unknown) day hospital stay. While there, she received diuresis, fluid restriction, IV (units unknown) (unknown) (unknown) (no date) (unknown) (unknown) department to the ICU. RT notes since BiPAP has been placed, her respiratory (units unknown) (unknown) (unknown) (no date) (unknown) (unknown) department, she was hypoxic with room air saturations of 70%, tachypneic, and (units unknown) (unknown) (unknown) (no date) (unknown) (unknown) dependence, as I suspect she also has a component of obesity hypoventilation (units unknown) (unknown) (unknown) (no date) (unknown) (unknown) distress and overall fatigue, BiPAP was placed upon transfer from the emergency (units unknown) (unknown) (unknown) (no date) (unknown) (unknown) diuretics, fluid restriction of 2000 cc, IV Solu-Medrol, and her usual home (units unknown) (unknown) (unknown) (no date) (unknown) (unknown) done at the outside hospital. No echocardiogram available in records to denote (units unknown) (unknown) (unknown) (no date) (unknown) (unknown) due to her shortness of breath. She was given steroids and found to have a (units unknown) (unknown) (unknown) (no date) (unknown) (unknown) erythromycin base Allergy Verified 07/06/21 13:34 (units unknown) (unknown) (unknown) (no date) (unknown) (unknown) extraocular movement s intact, sclerae anicteric, conjunctiva clear, (units unknown) (unknown) (unknown) (no date) (unknown) (unknown) feeling better with the BiPAP. She also reiterates her full code status. (units unknown) (unknown) (unknown) (no date) (unknown) (unknown) granddaughter bring in potato chips and extra fluids due to complaining of (units unknown) (unknown) (unknown) (no date) (unknown) (unknown) granddaughter reported over the month prior she had been increasing it to 4 L (units unknown) (unknown) (unknown) (no date) (unknown) (unknown) greatly benefit from weight reduction. (units unknown) (unknown) (unknown) (no date) (unknown) (unknown) had an informational visit with hospice but reported she continued to want (units unknown) (unknown) (unknown) (no date) (unknown) (unknown) heart failure. Exam also indicates a component of COPD exacerbation. Will (units unknown) (unknown) (unknown) (no date) (unknown) (unknown) her renal function closely. Ballard catheter will be placed. (units unknown) (unknown) (unknown) (no date) (unknown) (unknown) hypoxic in the emergency department and required supplemental O2. She was (units unknown) (unknown) (unknown) (no date) (unknown) (unknown) in room air. She cam e up to 89% on 4 L. Respiratory rate increased over her (units unknown) (unknown) (unknown) (no date) (unknown) (unknown) labs at the outside hospital. We will continue close monitoring. There is (units unknown) (unknown) (unknown) (no date) (unknown) (unknown) leave [facility]. She was noted to take her oxygen off and have (units unknown) (unknown) (unknown) (no date) (unknown) (unknown) less than 0.012. Again human metapneumovirus was positive. All other viral (units unknown) (unknown) (unknown) (no date) (unknown) (unknown) lives independently Yes (units unknown) (unknown) (unknown) (no date) (unknown) (unknown) medications. She did test positive for human metapneumovirus which was felt to (units unknown) (unknown) (unknown) (no date) (unknown) (unknown) noting severe respiratory distress. Chest x-ray reveals evidence of congestive (units unknown) (unknown) (unknown) (no date) (unknown) (unknown) occurring at age 29. (units unknown) (unknown) (unknown) (no date) (unknown) (unknown) of severe shortness of breath, an ABG was performed. PH was 7.45, pCO2 69, PO2 (units unknown) (unknown) (unknown) (no date) (unknown) (unknown) oropharyngeal exam can not be performed secondary to having BiPAP in place (units unknown) (unknown) (unknown) (no date) (unknown) (unknown) pacemaker/AICD placement, diabetes mellitus type 2 on oral antidiabetic agents, (units unknown) (unknown) (unknown) (no date) (unknown) (unknown) tereza [From [facility] ] Allergy Verified 07/06/21 13:33 (units unknown) (unknown) (unknown) (no date) (unknown) (unknown) potassium 4.1, chloride 90, bicarb 38, BUN 41, creatinine 0.8, glucose 248. (units unknown) (unknown) (unknown) (no date) (unknown) (unknown) presently complainin g of any pain. Would avoid opioids for now given her BiPAP (units unknown) (unknown) (unknown) (no date) (unknown) (unknown) pulmonary vascular congestion. Due to worsening anemia and patient complaints (units unknown) (unknown) (unknown) (no date) (unknown) (unknown) q.12. She does have significant hypercarbia thus will also add Diamox. We will (units unknown) (unknown) (unknown) (no date) (unknown) (unknown) quadrants, body habitus limits exam (units unknown) (unknown) (unknown) (no date) (unknown) (unknown) rather than related to an infection as she was afebrile and not complaining of (units unknown) (unknown) (unknown) (no date) (unknown) (unknown) respiratory studies were negative. Chest x-ray revealed cardiomegaly with (units unknown) (unknown) (unknown) (no date) (unknown) (unknown) responsive, appears to be oriented to self and situation, no acute distress (units unknown) (unknown) (unknown) (no date) (unknown) (unknown) restart furosemide 4 0 mg IV b.i.d.. Will also place on Solu-Medrol 80 mg IV (units unknown) (unknown) (unknown) (no date) (unknown) (unknown) sats down to 70% debby m air. She ultimately had her granddaughter take her from (units unknown) (unknown) (unknown) (no date) (unknown) (unknown) scheduled (units unknown) (unknown) (unknown) (no date) (unknown) (unknown) shortness of breath. She reported using 2-3 L of oxygen continuously but her (units unknown) (unknown) (unknown) (no date) (unknown) (unknown) significant azotemia with a BUN of 41 today. This appears to be consistent with (units unknown) (unknown) (unknown) (no date) (unknown) (unknown) status is improved. She is presently on FiO2 of 35%. She does answer questions (units unknown) (unknown) (unknown) (no date) (unknown) (unknown) steroids, and respiratory treatments. Upon arriving to our emergency (units unknown) (unknown) (unknown) (no date) (unknown) (unknown) syndrome. (units unknown) (unknown) (unknown) (no date) (unknown) (unknown) the severity of her congestive heart failure. Will obtain an echocardiogram. (units unknown) (unknown) (unknown) (no date) (unknown) (unknown) thirst well on the fluid restricted diet. This morning, patient requested to (units unknown) (unknown) (unknown) (no date) (unknown) (unknown) time in the emergenc y department to a max of 38. She did require titration to 5 (units unknown) (unknown) (unknown) (no date) (unknown) (unknown) to acute on chronic systolic CHF and COPD exacerbation. She was placed on IV (units unknown) (unknown) (unknown) (no date) (unknown) (unknown) to be 8%. Will place on fingersticks and sliding scale. (units unknown) (unknown) (unknown) (no date) (unknown) (unknown) today; this time is exclusive of procedural time. (units unknown) (unknown) (unknown) (no date) (unknown) (unknown) uncertain if she takes chronic opioid medication at baseline. She is not (units unknown) (unknown) (unknown) (no date) (unknown) (unknown) weaned from 4 L of oxygen to 3 L of oxygen. However, patient was having her (units unknown) (unknown) (unknown) (no date) (unknown) (unknown) white blood cell count of 20.6 (it was 16 at [facility] today), hemoglobin (units unknown) (unknown) (unknown) (no date) (unknown) (unknown) with a brief shake her head yes or no. She does outer head yes that she is (units unknown) (unknown) Result panel [id number] (unknown) (no date) (unknown) (unknown) 2.2 mmol/l (unknown) Result panel 647 (unknown) (no date) (unknown) (unknown) (no value) (units unknown) (unknown) (unknown) (no date) (unknown) (unknown) <Electronically signed by Rufino Solorzano D.O.> (units unknown) (unknown) (unknown) (no date) (unknown) (unknown) 01:38 12:06 12:06 (units unknown) (unknown) (unknown) (no date) (unknown) (unknown) 07/24/22 07/24/22 07/24/22 Range/Units (units unknown) (unknown) (unknown) (no date) (unknown) (unknown) 03/12/23 03/12/23 Range/Units (units unknown) (unknown) (unknown) (no date) (unknown) (unknown) 07/24/22 12:06 (units unknown) (unknown) (unknown) (no date) (unknown) (unknown) 07/24/22 12:11 (units unknown) (unknown) (unknown) (no date) (unknown) (unknown) 07/24/22 13:05 (units unknown) (unknown) (unknown) (no date) (unknown) (unknown) 07/24/22 13:06 (units unknown) (unknown) (unknown) (no date) (unknown) (unknown) 07/24/22 13:53 (units unknown) (unknown) (unknown) (no date) (unknown) (unknown) 07/24/22 1622 (units unknown) (unknown) (unknown) (no date) (unknown) (unknown) 07/24/22 (units unknown) (unknown) (unknown) (no date) (unknown) (unknown) 07/25/22 05:00 (units unknown) (unknown) (unknown) (no date) (unknown) (unknown) 07/26/22 05:00 (units unknown) (unknown) (unknown) (no date) (unknown) (unknown) 07/27/22 05:00 (units unknown) (unknown) (unknown) (no date) (unknown) (unknown) 11:50 07/24/22 (units unknown) (unknown) (unknown) (no date) (unknown) (unknown) 12:00 (units unknown) (unknown) (unknown) (no date) (unknown) (unknown) 12:06 13:06 (units unknown) (unknown) (unknown) (no date) (unknown) (unknown) 12:18 07/24/22 (units unknown) (unknown) (unknown) (no date) (unknown) (unknown) 12:30 07/24/22 (units unknown) (unknown) (unknown) (no date) (unknown) (unknown) 12:33 07/24/22 (units unknown) (unknown) (unknown) (no date) (unknown) (unknown) 12:33 (units unknown) (unknown) (unknown) (no date) (unknown) (unknown) 13:00 (units unknown) (unknown) (unknown) (no date) (unknown) (unknown) [id number] (units unknown) (unknown) (unknown) (no date) (unknown) (unknown) ? (units unknown) (unknown) (unknown) (no date) (unknown) (unknown) ABG Base Excess (-2-3) mmol/L (units unknown) (unknown) (unknown) (no date) (unknown) (unknown) ABG Base Excess 24.0 H (-2-3) mmol/L (units unknown) (unknown) (unknown) (no date) (unknown) (unknown) ABG HCO3 (23-27) mmol/L (units unknown) (unknown) (unknown) (no date) (unknown) (unknown) ABG HCO3 48 H (23-27 ) mmol/L (units unknown) (unknown) (unknown) (no date) (unknown) (unknown) ABG O2 Saturation (95-100) % (units unknown) (unknown) (unknown) (no date) (unknown) (unknown) ABG O2 Saturation 84 L* (95-100) % (units unknown) (unknown) (unknown) (no date) (unknown) (unknown) ABG Total CO2 (23-27 ) mmol/L (units unknown) (unknown) (unknown) (no date) (unknown) (unknown) ABG Total CO2 50 H (23-27) mmol/L (units unknown) (unknown) (unknown) (no date) (unknown) (unknown) ABG pCO2 (35-45) mmHg (units unknown) (unknown) (unknown) (no date) (unknown) (unknown) ABG pCO2 69.4 H* (35-45) mmHg (units unknown) (unknown) (unknown) (no date) (unknown) (unknown) ABG pH (7.35-7.45) (units unknown) (unknown) (unknown) (no date) (unknown) (unknown) ABG pH 7.45 (7.35-7.45) (units unknown) (unknown) (unknown) (no date) (unknown) (unknown) ABG pO2 (80-100) mmHg (units unknown) (unknown) (unknown) (no date) (unknown) (unknown) ABG pO2 50 L (80-100 ) mmHg (units unknown) (unknown) (unknown) (no date) (unknown) (unknown) ALT (<35) IU/L (units unknown) (unknown) (unknown) (no date) (unknown) (unknown) ALT 74 H (<35) IU/L (units unknown) (unknown) (unknown) (no date) (unknown) (unknown) AST (14-36) IU/L (units unknown) (unknown) (unknown) (no date) (unknown) (unknown) AST 31 (14-36) IU/L (units unknown) (unknown) (unknown) (no date) (unknown) (unknown) Acetazolamide (Acetazolamide 250 Mg Tablet) 250 mg PO BID ROMAN (units unknown) (unknown) (unknown) (no date) (unknown) (unknown) Acute exacerbation o f chronic obstructive airways disease, Congestive heart (units unknown) (unknown) (unknown) (no date) (unknown) (unknown) Adenovirus (PCR) (No t Detect) (units unknown) (unknown) (unknown) (no date) (unknown) (unknown) Adenovirus (PCR) Not detected (Not Detect) (units unknown) (unknown) (unknown) (no date) (unknown) (unknown) Admit Date/Time: 07/24/22 13:14 (units unknown) (unknown) (unknown) (no date) (unknown) (unknown) Admit Provider: Hallie Greco (units unknown) (unknown) (unknown) (no date) (unknown) (unknown) Age/Sex: 57 / F (units unknown) (unknown) (unknown) (no date) (unknown) (unknown) Albumin (3.5-5.0) g/dL (units unknown) (unknown) (unknown) (no date) (unknown) (unknown) Albumin 3.8 (3.5-5.0 ) g/dL (units unknown) (unknown) (unknown) (no date) (unknown) (unknown) Albumin/Globulin Ratio (1.0-2.8) (units unknown) (unknown) (unknown) (no date) (unknown) (unknown) Albumin/Globulin Ratio 1.2 (1.0-2.8) (units unknown) (unknown) (unknown) (no date) (unknown) (unknown) Albuterol (Albuterol 2.5 Mg/3 Ml Neb (Adult)) 2.5 mg INH [id number] PRN (units unknown) (unknown) (unknown) (no date) (unknown) (unknown) Albuterol/Ipratropiu m (Albuterol/Ipratropiu m 3 Ml Ampul) 3 ml INH NOW ONE (units unknown) (unknown) (unknown) (no date) (unknown) (unknown) Albuterol/Ipratropiu m (Albuterol/Ipratropiu m 3 Ml Ampul) 3 ml INH [id number] ROMAN (units unknown) (unknown) (unknown) (no date) (unknown) (unknown) Albuterol/Ipratropiu m (Albuterol/Ipratropiu m 3 Ml Ampul) 3 ml INH [id number] ROMAN (units unknown) (unknown) (unknown) (no date) (unknown) (unknown) Alkaline Phosphatase (38-126) U/L (units unknown) (unknown) (unknown) (no date) (unknown) (unknown) Alkaline Phosphatase 83 (38-126) U/L (units unknown) (unknown) (unknown) (no date) (unknown) (unknown) Allergies (units unknown) (unknown) (unknown) (no date) (unknown) (unknown) Allergy/AdvReac Type Severity Reaction Status Date / Time (units unknown) (unknown) (unknown) (no date) (unknown) (unknown) Appearance: disheveled (units unknown) (unknown) (unknown) (no date) (unknown) (unknown) Attestation: I personally reviewed and interpreted this ECG as follows: (units unknown) (unknown) (unknown) (no date) (unknown) (unknown) Auscultation: rhonch i and wheezes (units unknown) (unknown) (unknown) (no date) (unknown) (unknown) B. pertussis DNA (PCR) (Not Detecte) (units unknown) (unknown) (unknown) (no date) (unknown) (unknown) B. pertussis DNA (PCR) Not detected (Not Detecte) (units unknown) (unknown) (unknown) (no date) (unknown) (unknown) B.parapertussis DNA PCR (Not Detecte) (units unknown) (unknown) (unknown) (no date) (unknown) (unknown) B.parapertussis DNA PCR Not detected (Not Detecte) (units unknown) (unknown) (unknown) (no date) (unknown) (unknown) BUN (7-17) mg/dL (units unknown) (unknown) (unknown) (no date) (unknown) (unknown) BUN 41 H (7-17) mg/dL (units unknown) (unknown) (unknown) (no date) (unknown) (unknown) BUN/Creatinine Ratio (6-22) (units unknown) (unknown) (unknown) (no date) (unknown) (unknown) BUN/Creatinine Ratio 51.3 H (6-22) (units unknown) (unknown) (unknown) (no date) (unknown) (unknown) Basic Metabolic Pane l DAILY (units unknown) (unknown) (unknown) (no date) (unknown) (unknown) Baso # (Auto) (0-100 ) /uL (units unknown) (unknown) (unknown) (no date) (unknown) (unknown) Baso # (Auto) 0 (0-100) /uL (units unknown) (unknown) (unknown) (no date) (unknown) (unknown) Baso % (Auto) (0-2) % (units unknown) (unknown) (unknown) (no date) (unknown) (unknown) Baso % (Auto) 0.1 (0-2) % (units unknown) (unknown) (unknown) (no date) (unknown) (unknown) Blood Pressure 124/6 7 07/24/22 11:50 (units unknown) (unknown) (unknown) (no date) (unknown) (unknown) Blood Pressure 124/67 (units unknown) (unknown) (unknown) (no date) (unknown) (unknown) Blood Pressure 138/60 (units unknown) (unknown) (unknown) (no date) (unknown) (unknown) Blood Pressure (units unknown) (unknown) (unknown) (no date) (unknown) (unknown) Bones and chest wall:? No suspicious bony lesions.? Overlying soft tissues (units unknown) (unknown) (unknown) (no date) (unknown) (unknown) Budesonide (Budesonide 0.5 Mg/2 Ml Neb) 0.5 mg INH RTBID ROMAN (units unknown) (unknown) (unknown) (no date) (unknown) (unknown) CK-MB (CK-2) Rel Index TNP (units unknown) (unknown) (unknown) (no date) (unknown) (unknown) CK-MB (CK-2) Rel Index (units unknown) (unknown) (unknown) (no date) (unknown) (unknown) CK-MB (CK-2) TNP (units unknown) (unknown) (unknown) (no date) (unknown) (unknown) CK-MB (CK-2) (units unknown) (unknown) (unknown) (no date) (unknown) (unknown) COMPARISON:? None. (units unknown) (unknown) (unknown) (no date) (unknown) (unknown) COPD (chronic obstructive pulmonary disease) (units unknown) (unknown) (unknown) (no date) (unknown) (unknown) Calcium (8.4-10.2) mg/dL (units unknown) (unknown) (unknown) (no date) (unknown) (unknown) Calcium 9.5 (8.4-10.2) mg/dL (units unknown) (unknown) (unknown) (no date) (unknown) (unknown) Carbon Dioxide (22-32) mmol/L (units unknown) (unknown) (unknown) (no date) (unknown) (unknown) Carbon Dioxide 38 H (22-32) mmol/L (units unknown) (unknown) (unknown) (no date) (unknown) (unknown) Cardio (units unknown) (unknown) (unknown) (no date) (unknown) (unknown) Chest x-ray: (units unknown) (unknown) (unknown) (no date) (unknown) (unknown) Chief complaint: Shortness of Breath/Dyspnea (units unknown) (unknown) (unknown) (no date) (unknown) (unknown) Chlamy pneumoniae PC R (Not Detect) (units unknown) (unknown) (unknown) (no date) (unknown) (unknown) Chlamy pneumoniae PC R Not detected (Not Detect) (units unknown) (unknown) (unknown) (no date) (unknown) (unknown) Chloride (98-107) mmol/L (units unknown) (unknown) (unknown) (no date) (unknown) (unknown) Chloride 90 L (98-107) mmol/L (units unknown) (unknown) (unknown) (no date) (unknown) (unknown) Clinical Impression: (units unknown) (unknown) (unknown) (no date) (unknown) (unknown) Complete Blood Count AUTO DIFF DAILY (units unknown) (unknown) (unknown) (no date) (unknown) (unknown) Complete Blood Count AUTO DIFF Stat (units unknown) (unknown) (unknown) (no date) (unknown) (unknown) Comprehensive Metabolic Panel Stat (units unknown) (unknown) (unknown) (no date) (unknown) (unknown) Const (units unknown) (unknown) (unknown) (no date) (unknown) (unknown) Consult to Cardio/Pulmonary Rehabilitation Routine (units unknown) (unknown) (unknown) (no date) (unknown) (unknown) Consult to Discharge Planning Routine (units unknown) (unknown) (unknown) (no date) (unknown) (unknown) Consult to Occupational Therapy Evaluate + Treat (units unknown) (unknown) (unknown) (no date) (unknown) (unknown) Consult to Physical Therapy Evaluate + Treat (units unknown) (unknown) (unknown) (no date) (unknown) (unknown) Coronavirus 229E (PCR) (Not Detect) (units unknown) (unknown) (unknown) (no date) (unknown) (unknown) Coronavirus 229E (PCR) Not detected (Not Detect) (units unknown) (unknown) (unknown) (no date) (unknown) (unknown) Coronavirus HKU1 (PCR) (Not Detect) (units unknown) (unknown) (unknown) (no date) (unknown) (unknown) Coronavirus HKU1 (PCR) Not detected (Not Detect) (units unknown) (unknown) (unknown) (no date) (unknown) (unknown) Coronavirus NL63 (PCR) (Not Detect) (units unknown) (unknown) (unknown) (no date) (unknown) (unknown) Coronavirus NL63 (PCR) Not detected (Not Detect) (units unknown) (unknown) (unknown) (no date) (unknown) (unknown) Coronavirus OC43 (PCR) (Not Detect) (units unknown) (unknown) (unknown) (no date) (unknown) (unknown) Coronavirus OC43 (PCR) Not detected (Not Detect) (units unknown) (unknown) (unknown) (no date) (unknown) (unknown) Course (units unknown) (unknown) (unknown) (no date) (unknown) (unknown) Creatinine (0.52-1.04) mg/dL (units unknown) (unknown) (unknown) (no date) (unknown) (unknown) Creatinine 0.80 (0.52-1.04) mg/dL (units unknown) (unknown) (unknown) (no date) (unknown) (unknown) : 1965 Acct:[id number] (units unknown) (unknown) (unknown) (no date) (unknown) (unknown) Date of Service: 07/24/22 (units unknown) (unknown) (unknown) (no date) (unknown) (unknown) Departure (units unknown) (unknown) (unknown) (no date) (unknown) (unknown) Dextrose (Dextrose 5 0 % In Water 25 Gm/50 Ml Syringe) 25 gm IV PRN PRN (units unknown) (unknown) (unknown) (no date) (unknown) (unknown) Diffuse (units unknown) (unknown) (unknown) (no date) (unknown) (unknown) Discharge Plan (units unknown) (unknown) (unknown) (no date) (unknown) (unknown) Discontinued Medications (units unknown) (unknown) (unknown) (no date) (unknown) (unknown) Documented By: CORRIE (units unknown) (unknown) (unknown) (no date) (unknown) (unknown) Documented By: ISRRAEL (units unknown) (unknown) (unknown) (no date) (unknown) (unknown) Documented By: ISRRAEL(2) (units unknown) (unknown) (unknown) (no date) (unknown) (unknown) Documented By: NR (units unknown) (unknown) (unknown) (no date) (unknown) (unknown) Doxycycline Hyclate (Doxycycline Hyclate 100 Mg Tablet) 100 mg PO BID ROMAN (units unknown) (unknown) (unknown) (no date) (unknown) (unknown) Doxycycline Hyclate 100 mg/ (Sodium Chloride) 100 mls @ 100 mls/hr IV NOW ONE (units unknown) (unknown) (unknown) (no date) (unknown) (unknown) EC echo doppler complete Stat (units unknown) (unknown) (unknown) (no date) (unknown) (unknown) ECG Data (units unknown) (unknown) (unknown) (no date) (unknown) (unknown) ED Orders (units unknown) (unknown) (unknown) (no date) (unknown) (unknown) EKG-12 Lead Stat (units unknown) (unknown) (unknown) (no date) (unknown) (unknown) ER Physician: Rufino Solorzano D.O. (units unknown) (unknown) (unknown) (no date) (unknown) (unknown) Education, smoking cessation ONGOING (units unknown) (unknown) (unknown) (no date) (unknown) (unknown) Effort + Inspection: labored, respiratory distress and tachypneic (units unknown) (unknown) (unknown) (no date) (unknown) (unknown) Emergency Report (units unknown) (unknown) (unknown) (no date) (unknown) (unknown) Enoxaparin Sodium (Enoxaparin 40 Mg/0.4 Ml Syringe) 40 mg SUBCUT BID ROMAN (units unknown) (unknown) (unknown) (no date) (unknown) (unknown) Entero/Rhino (PCR) (Not Detect) (units unknown) (unknown) (unknown) (no date) (unknown) (unknown) Entero/Rhino (PCR) Not detected (Not Detect) (units unknown) (unknown) (unknown) (no date) (unknown) (unknown) Eos # (Auto) (0-450) /uL (units unknown) (unknown) (unknown) (no date) (unknown) (unknown) Eos # (Auto) 0 (0-450) /uL (units unknown) (unknown) (unknown) (no date) (unknown) (unknown) Eos % (Auto) (2-4) % (units unknown) (unknown) (unknown) (no date) (unknown) (unknown) Eos % (Auto) 0.0 L (2-4) % (units unknown) (unknown) (unknown) (no date) (unknown) (unknown) Estimated GFR > 60 (>60) mL/min (units unknown) (unknown) (unknown) (no date) (unknown) (unknown) Estimated GFR (>60) mL/min (units unknown) (unknown) (unknown) (no date) (unknown) (unknown) Exam (units unknown) (unknown) (unknown) (no date) (unknown) (unknown) Extrem (units unknown) (unknown) (unknown) (no date) (unknown) (unknown) FINDINGS:? (units unknown) (unknown) (unknown) (no date) (unknown) (unknown) FiO2 40 (units unknown) (unknown) (unknown) (no date) (unknown) (unknown) FiO2 (units unknown) (unknown) (unknown) (no date) (unknown) (unknown) Fannie with [facility] for admission who has access to the EMR of the (units unknown) (unknown) (unknown) (no date) (unknown) (unknown) Fraction of Inspired Oxygen 36 (units unknown) (unknown) (unknown) (no date) (unknown) (unknown) Fraction of Inspired Oxygen (units unknown) (unknown) (unknown) (no date) (unknown) (unknown) Furosemide (Furosemide 40 Mg/4 Ml Vial) 40 mg IV Q12HR ROMAN (units unknown) (unknown) (unknown) (no date) (unknown) (unknown) GI (units unknown) (unknown) (unknown) (no date) (unknown) (unknown) General (units unknown) (unknown) (unknown) (no date) (unknown) (unknown) General: No edema (units unknown) (unknown) (unknown) (no date) (unknown) (unknown) General: cooperative and ill appearing (units unknown) (unknown) (unknown) (no date) (unknown) (unknown) General: no rashes o r lesions noted (units unknown) (unknown) (unknown) (no date) (unknown) (unknown) General: patient alert, patient awake and moves all extremities (units unknown) (unknown) (unknown) (no date) (unknown) (unknown) Generally just does not feel very well. No abdominal pain. No lower extremity (units unknown) (unknown) (unknown) (no date) (unknown) (unknown) Given her presentation today patient does require admission to the hospital. (units unknown) (unknown) (unknown) (no date) (unknown) (unknown) Globulin (1.7-4.1) g/dL (units unknown) (unknown) (unknown) (no date) (unknown) (unknown) Globulin 3.2 (1.7-4.1) g/dL (units unknown) (unknown) (unknown) (no date) (unknown) (unknown) Glucose (70-100) mg/dL (units unknown) (unknown) (unknown) (no date) (unknown) (unknown) Glucose 248 H (70-100) mg/dL (units unknown) (unknown) (unknown) (no date) (unknown) (unknown) HENMT (units unknown) (unknown) (unknown) (no date) (unknown) (unknown) HPI - General Adult (units unknown) (unknown) (unknown) (no date) (unknown) (unknown) HPI narrative: (units unknown) (unknown) (unknown) (no date) (unknown) (unknown) Hct (36-46) % (units unknown) (unknown) (unknown) (no date) (unknown) (unknown) Hct 48.5 H (36-46) % (units unknown) (unknown) (unknown) (no date) (unknown) (unknown) Head: normal to inspection and normocephalic (units unknown) (unknown) (unknown) (no date) (unknown) (unknown) Hgb (12.0-16.0) g/dL (units unknown) (unknown) (unknown) (no date) (unknown) (unknown) Hgb 15.8 (12.0-16.0) g/dL (units unknown) (unknown) (unknown) (no date) (unknown) (unknown) History of Present Illness (units unknown) (unknown) (unknown) (no date) (unknown) (unknown) Human Metapneumovir PCR (Not Detect) (units unknown) (unknown) (unknown) (no date) (unknown) (unknown) Human Metapneumovir PCR Detected H (Not Detect) (units unknown) (unknown) (unknown) (no date) (unknown) (unknown) IMPRESSION:? Cardiomegaly with pulmonary vascular congestion. (units unknown) (unknown) (unknown) (no date) (unknown) (unknown) INDICATIONS:? SOB (units unknown) (unknown) (unknown) (no date) (unknown) (unknown) Imaging Data (units unknown) (unknown) (unknown) (no date) (unknown) (unknown) Influenza Type A (PCR) (Not Detect) (units unknown) (unknown) (unknown) (no date) (unknown) (unknown) Influenza Type A (PCR) Not detected (Not Detect) (units unknown) (unknown) (unknown) (no date) (unknown) (unknown) Influenza Type B (PCR) (Not Detect) (units unknown) (unknown) (unknown) (no date) (unknown) (unknown) Influenza Type B (PCR) Not detected (Not Detect) (units unknown) (unknown) (unknown) (no date) (unknown) (unknown) Initial Vital Signs (units unknown) (unknown) (unknown) (no date) (unknown) (unknown) Initial Vital Signs: (units unknown) (unknown) (unknown) (no date) (unknown) (unknown) Inspection: normal t o inspection and non-distended (units unknown) (unknown) (unknown) (no date) (unknown) (unknown) Insulin Human Lispro (Insulin Lispro 100 Unit/Ml 3ml Vial) 0 unit SUBCUT ACHS (units unknown) (unknown) (unknown) (no date) (unknown) (unknown) Interpretation: (units unknown) (unknown) (unknown) (no date) (unknown) (unknown) [address] [address] (units unknown) (unknown) (unknown) (no date) (unknown) (unknown) Lab Data (units unknown) (unknown) (unknown) (no date) (unknown) (unknown) Lab Results (units unknown) (unknown) (unknown) (no date) (unknown) (unknown) Lab results reviewed : Yes I reviewed the patient's lab results. (units unknown) (unknown) (unknown) (no date) (unknown) (unknown) Labs: (units unknown) (unknown) (unknown) (no date) (unknown) (unknown) Lactate (0.7-2.1) mmol/L (units unknown) (unknown) (unknown) (no date) (unknown) (unknown) Lactate (Lactic Acid ) Stat (units unknown) (unknown) (unknown) (no date) (unknown) (unknown) Lactate 2.2 H (0.7-2.1) mmol/L (units unknown) (unknown) (unknown) (no date) (unknown) (unknown) Last Admin: 07/24/22 12:18 Dose: 3 ml (units unknown) (unknown) (unknown) (no date) (unknown) (unknown) Last Admin: 07/24/22 12:43 Dose: 125 mg (units unknown) (unknown) (unknown) (no date) (unknown) (unknown) Last Admin: 07/24/22 14:18 Dose: Not Given (units unknown) (unknown) (unknown) (no date) (unknown) (unknown) Last Admin: 07/24/22 14:47 Dose: Not Given (units unknown) (unknown) (unknown) (no date) (unknown) (unknown) Last Admin: 07/24/22 15:05 Dose: 3 ml (units unknown) (unknown) (unknown) (no date) (unknown) (unknown) Last Admin: 07/24/22 15:19 Dose: Not Given (units unknown) (unknown) (unknown) (no date) (unknown) (unknown) Left bundle branch block (units unknown) (unknown) (unknown) (no date) (unknown) (unknown) Limitations: no limitations (units unknown) (unknown) (unknown) (no date) (unknown) (unknown) Lipase (23-300) U/L (units unknown) (unknown) (unknown) (no date) (unknown) (unknown) Lipase 43 (23-300) U/L (units unknown) (unknown) (unknown) (no date) (unknown) (unknown) Lipase Stat (units unknown) (unknown) (unknown) (no date) (unknown) (unknown) Lungs and pleura:? Lungs are clear.? No pleural effusions or pneumothorax.? (units unknown) (unknown) (unknown) (no date) (unknown) (unknown) Lymph # (Auto) (2753-7189) /uL (units unknown) (unknown) (unknown) (no date) (unknown) (unknown) Lymph # (Auto) 1000 L (8406-2319) /uL (units unknown) (unknown) (unknown) (no date) (unknown) (unknown) Lymph % (Auto) (25-40) % (units unknown) (unknown) (unknown) (no date) (unknown) (unknown) Lymph % (Auto) 5.0 L (25-40) % (units unknown) (unknown) (unknown) (no date) (unknown) (unknown) M. pneumoniae (PCR) (Not Detect) (units unknown) (unknown) (unknown) (no date) (unknown) (unknown) M. pneumoniae (PCR) Not detected (Not Detect) (units unknown) (unknown) (unknown) (no date) (unknown) (unknown) MCH (26-34) PG (units unknown) (unknown) (unknown) (no date) (unknown) (unknown) MCH 30.9 (26-34) PG (units unknown) (unknown) (unknown) (no date) (unknown) (unknown) MCHC (30-36) % (units unknown) (unknown) (unknown) (no date) (unknown) (unknown) MCHC 32.6 (30-36) % (units unknown) (unknown) (unknown) (no date) (unknown) (unknown) MCV (80-100) fL (units unknown) (unknown) (unknown) (no date) (unknown) (unknown) MCV 94.8 (80-100) fL (units unknown) (unknown) (unknown) (no date) (unknown) (unknown) MDM Narrative (units unknown) (unknown) (unknown) (no date) (unknown) (unknown) Magnesium DAILY (units unknown) (unknown) (unknown) (no date) (unknown) (unknown) Mediastinum:? Mediastinal contours appear normal.? Heart size is enlarged.? (units unknown) (unknown) (unknown) (no date) (unknown) (unknown) Medical Decision Making (units unknown) (unknown) (unknown) (no date) (unknown) (unknown) Medical History (units unknown) (unknown) (unknown) (no date) (unknown) (unknown) Medical decision making narrative: (units unknown) (unknown) (unknown) (no date) (unknown) (unknown) Methylprednisolone (Methylprednisolone 125 Mg/2 Ml Vial) 125 mg IV NOW ONE (units unknown) (unknown) (unknown) (no date) (unknown) (unknown) Methylprednisolone (Methylprednisolone 125 Mg/2 Ml Vial) 80 mg IV Q12H [facility] (units unknown) (unknown) (unknown) (no date) (unknown) (unknown) Mode of arrival: Family Vehicle (units unknown) (unknown) (unknown) (no date) (unknown) (unknown) [place] # (Auto) (0-900 ) /uL (units unknown) (unknown) (unknown) (no date) (unknown) (unknown) [place] # (Auto) 1400 H (0-900) /uL (units unknown) (unknown) (unknown) (no date) (unknown) (unknown) [place] % (Auto) (3-14) % (units unknown) (unknown) (unknown) (no date) (unknown) (unknown) [place] % (Auto) 7.0 (3-14) % (units unknown) (unknown) (unknown) (no date) (unknown) (unknown) NT-Pro-B Natriuret Pep (<125) pg/mL (units unknown) (unknown) (unknown) (no date) (unknown) (unknown) NT-Pro-B Natriuret Pep 2860 H (<125) pg/mL (units unknown) (unknown) (unknown) (no date) (unknown) (unknown) NT-proBNP (BNP-Adult 18+) Stat (units unknown) (unknown) (unknown) (no date) (unknown) (unknown) Naloxone HCl (Naloxone 0.4 Mg/Ml Vial) 0.2 mg IV Q2MIN PRN (units unknown) (unknown) (unknown) (no date) (unknown) (unknown) Neuro (units unknown) (unknown) (unknown) (no date) (unknown) (unknown) Neut # (Auto) (6589-1120) /uL (units unknown) (unknown) (unknown) (no date) (unknown) (unknown) Neut # (Auto) 35434 H (1174-3269) /uL (units unknown) (unknown) (unknown) (no date) (unknown) (unknown) Neut % (Auto) (50-75 ) % (units unknown) (unknown) (unknown) (no date) (unknown) (unknown) Neut % (Auto) 87.9 H (50-75) % (units unknown) (unknown) (unknown) (no date) (unknown) (unknown) No ST T wave changes (units unknown) (unknown) (unknown) (no date) (unknown) (unknown) Ordered: (units unknown) (unknown) (unknown) (no date) (unknown) (unknown) Orders (units unknown) (unknown) (unknown) (no date) (unknown) (unknown) Oxygen Delivery Method Nasal Cannula (units unknown) (unknown) (unknown) (no date) (unknown) (unknown) Oxygen Delivery Method Room Air 07/24/22 11:50 (units unknown) (unknown) (unknown) (no date) (unknown) (unknown) Oxygen Delivery Method Room Air Nasal Cannula (units unknown) (unknown) (unknown) (no date) (unknown) (unknown) Oxygen Delivery Method (units unknown) (unknown) (unknown) (no date) (unknown) (unknown) Oxygen Flow Rate 4 (units unknown) (unknown) (unknown) (no date) (unknown) (unknown) Oxygen Flow Rate 5 (units unknown) (unknown) (unknown) (no date) (unknown) (unknown) Oxygen Flow Rate (units unknown) (unknown) (unknown) (no date) (unknown) (unknown) PRN Reason: Hypoglycemia (units unknown) (unknown) (unknown) (no date) (unknown) (unknown) PRN Reason: Opiate Reversal (units unknown) (unknown) (unknown) (no date) (unknown) (unknown) PRN Reason: Shortnes s Of Breath (units unknown) (unknown) (unknown) (no date) (unknown) (unknown) PROCEDURE:? XR CHEST 1V (units unknown) (unknown) (unknown) (no date) (unknown) (unknown) Parainfluenza 1 (PCR ) (Not Detect) (units unknown) (unknown) (unknown) (no date) (unknown) (unknown) Parainfluenza 1 (PCR ) Not detected (Not Detect) (units unknown) (unknown) (unknown) (no date) (unknown) (unknown) Parainfluenza 2 (PCR ) (Not Detect) (units unknown) (unknown) (unknown) (no date) (unknown) (unknown) Parainfluenza 2 (PCR ) Not detected (Not Detect) (units unknown) (unknown) (unknown) (no date) (unknown) (unknown) Parainfluenza 3 (PCR ) (Not Detect) (units unknown) (unknown) (unknown) (no date) (unknown) (unknown) Parainfluenza 3 (PCR ) Not detected (Not Detect) (units unknown) (unknown) (unknown) (no date) (unknown) (unknown) Parainfluenza 4 (PCR ) (Not Detect) (units unknown) (unknown) (unknown) (no date) (unknown) (unknown) Parainfluenza 4 (PCR ) Not detected (Not Detect) (units unknown) (unknown) (unknown) (no date) (unknown) (unknown) Patient Disposition: Admitted As Inpatient (units unknown) (unknown) (unknown) (no date) (unknown) (unknown) Patient History (units unknown) (unknown) (unknown) (no date) (unknown) (unknown) Patient arrived hypoxic and in respiratory distress. Attempted to obtain (units unknown) (unknown) (unknown) (no date) (unknown) (unknown) Patient is a 57-year-old female. She states she is a history of COPD. Is on (units unknown) (unknown) (unknown) (no date) (unknown) (unknown) Patient: Ester Benavides MR#: [id number] (units unknown) (unknown) (unknown) (no date) (unknown) (unknown) Plt Count (150-400) X103/uL (units unknown) (unknown) (unknown) (no date) (unknown) (unknown) Plt Count 320 (150-400) X103/uL (units unknown) (unknown) (unknown) (no date) (unknown) (unknown) Potassium (3.4-5.1) mmol/L (units unknown) (unknown) (unknown) (no date) (unknown) (unknown) Potassium 4.1 (3.4-5.1) mmol/L (units unknown) (unknown) (unknown) (no date) (unknown) (unknown) Procalcitonin (<0.5) ng/mL (units unknown) (unknown) (unknown) (no date) (unknown) (unknown) Procalcitonin 0.06 (<0.5) ng/mL (units unknown) (unknown) (unknown) (no date) (unknown) (unknown) Procalcitonin Stat (units unknown) (unknown) (unknown) (no date) (unknown) (unknown) Psych (units unknown) (unknown) (unknown) (no date) (unknown) (unknown) Pulse Oximetry 78 L 07/24/22 11:50 (units unknown) (unknown) (unknown) (no date) (unknown) (unknown) Pulse Oximetry 78 L 89 L (units unknown) (unknown) (unknown) (no date) (unknown) (unknown) Pulse Oximetry 90 L (units unknown) (unknown) (unknown) (no date) (unknown) (unknown) Pulse Oximetry 91 89 L (units unknown) (unknown) (unknown) (no date) (unknown) (unknown) Pulse Rate 61 61 (units unknown) (unknown) (unknown) (no date) (unknown) (unknown) Pulse Rate 71 (units unknown) (unknown) (unknown) (no date) (unknown) (unknown) Pulse Rate 73 07/24/22 11:50 (units unknown) (unknown) (unknown) (no date) (unknown) (unknown) Pulse Rate 73 89 73 (units unknown) (unknown) (unknown) (no date) (unknown) (unknown) RBC (4.0-5.2) X106/uL (units unknown) (unknown) (unknown) (no date) (unknown) (unknown) RBC 5.11 (4.0-5.2) X106/uL (units unknown) (unknown) (unknown) (no date) (unknown) (unknown) RDW (11.6-14.8) % (units unknown) (unknown) (unknown) (no date) (unknown) (unknown) RDW 14.0 (11.6-14.8) % (units unknown) (unknown) (unknown) (no date) (unknown) (unknown) ROS Unobtainable: Al l systems reviewed + are unremarkable except as noted in HPI (units unknown) (unknown) (unknown) (no date) (unknown) (unknown) RSV (PCR) (Not Detect) (units unknown) (unknown) (unknown) (no date) (unknown) (unknown) RSV (PCR) Not detected (Not Detect) (units unknown) (unknown) (unknown) (no date) (unknown) (unknown) RT Consult Eval and Treat Now (units unknown) (unknown) (unknown) (no date) (unknown) (unknown) Radiologist's Impression: (units unknown) (unknown) (unknown) (no date) (unknown) (unknown) Rate: regular rate (units unknown) (unknown) (unknown) (no date) (unknown) (unknown) Related Data (units unknown) (unknown) (unknown) (no date) (unknown) (unknown) Resp (units unknown) (unknown) (unknown) (no date) (unknown) (unknown) Respiratory Panel (Film Array) Stat (units unknown) (unknown) (unknown) (no date) (unknown) (unknown) Respiratory Rate 24 07/24/22 11:50 (units unknown) (unknown) (unknown) (no date) (unknown) (unknown) Respiratory Rate 24 30 H (units unknown) (unknown) (unknown) (no date) (unknown) (unknown) Respiratory Rate 38 H (units unknown) (unknown) (unknown) (no date) (unknown) (unknown) Respiratory Rate (units unknown) (unknown) (unknown) (no date) (unknown) (unknown) Review of Systems (units unknown) (unknown) (unknown) (no date) (unknown) (unknown) Rhythm: regular rhythm (units unknown) (unknown) (unknown) (no date) (unknown) (unknown) SARS-CoV-2 (PCR) (No t Detecte) (units unknown) (unknown) (unknown) (no date) (unknown) (unknown) SARS-CoV-2 (PCR) Not detected (Not Detecte) (units unknown) (unknown) (unknown) (no date) (unknown) (unknown) [facility]AN; Protocol (units unknown) (unknown) (unknown) (no date) (unknown) (unknown) She is hypoxic. Patient stated that she is willing to be admitted to the (units unknown) (unknown) (unknown) (no date) (unknown) (unknown) Signed By: (units unknown) (unknown) (unknown) (no date) (unknown) (unknown) Sinus rhythm (units unknown) (unknown) (unknown) (no date) (unknown) (unknown) Skin (units unknown) (unknown) (unknown) (no date) (unknown) (unknown) Smoking Status: Current every day smoker (units unknown) (unknown) (unknown) (no date) (unknown) (unknown) Social History (units unknown) (unknown) (unknown) (no date) (unknown) (unknown) Sodium (137-145) mmol/L (units unknown) (unknown) (unknown) (no date) (unknown) (unknown) Sodium 136 L (137-145) mmol/L (units unknown) (unknown) (unknown) (no date) (unknown) (unknown) Source: patient (units unknown) (unknown) (unknown) (no date) (unknown) (unknown) Stated complaint: Sob, 'congestive heart failure' per pt (units unknown) (unknown) (unknown) (no date) (unknown) (unknown) Stop: 07/24/22 12:11 (units unknown) (unknown) (unknown) (no date) (unknown) (unknown) Stop: 07/24/22 12:35 (units unknown) (unknown) (unknown) (no date) (unknown) (unknown) Stop: 07/24/22 12:56 (units unknown) (unknown) (unknown) (no date) (unknown) (unknown) Surgical changes and devices:? Left chest wall pacer is seen with an intact (units unknown) (unknown) (unknown) (no date) (unknown) (unknown) TECHNIQUE:? One view of the chest was acquired.? (units unknown) (unknown) (unknown) (no date) (unknown) (unknown) Temperature 98.1 F 07/24/22 11:50 (units unknown) (unknown) (unknown) (no date) (unknown) (unknown) Temperature 98.1 F (units unknown) (unknown) (unknown) (no date) (unknown) (unknown) Temperature (units unknown) (unknown) (unknown) (no date) (unknown) (unknown) This morning she lef t would [facility] against medical advice after (units unknown) (unknown) (unknown) (no date) (unknown) (unknown) Time Seen by Provider: 07/24/22 12:04 (units unknown) (unknown) (unknown) (no date) (unknown) (unknown) Total Bilirubin (0.2-1.3) mg/dL (units unknown) (unknown) (unknown) (no date) (unknown) (unknown) Total Bilirubin 0.7 (0.2-1.3) mg/dL (units unknown) (unknown) (unknown) (no date) (unknown) (unknown) Total Creatine Kinas e (30-135) U/L (units unknown) (unknown) (unknown) (no date) (unknown) (unknown) Total Creatine Kinas e 36 (30-135) U/L (units unknown) (unknown) (unknown) (no date) (unknown) (unknown) Total Protein (6.3-8.2) g/dL (units unknown) (unknown) (unknown) (no date) (unknown) (unknown) Total Protein 7.0 (6.3-8.2) g/dL (units unknown) (unknown) (unknown) (no date) (unknown) (unknown) Troponin + CK Cardia c Panel Stat (units unknown) (unknown) (unknown) (no date) (unknown) (unknown) Troponin I < 0.012 (0.01-0.034) ng/mL (units unknown) (unknown) (unknown) (no date) (unknown) (unknown) Troponin I (0.01-0.034) ng/mL (units unknown) (unknown) (unknown) (no date) (unknown) (unknown) Unsure whether not she was being treated for pneumonia, COPD, CHF were all of (units unknown) (unknown) (unknown) (no date) (unknown) (unknown) Ventricular rate is 66 (units unknown) (unknown) (unknown) (no date) (unknown) (unknown) Vital Signs - 8 hr (units unknown) (unknown) (unknown) (no date) (unknown) (unknown) Vital Signs (units unknown) (unknown) (unknown) (no date) (unknown) (unknown) Vital signs: (units unknown) (unknown) (unknown) (no date) (unknown) (unknown) WBC (4.5-11.0) X103/uL (units unknown) (unknown) (unknown) (no date) (unknown) (unknown) WBC 20.6 H (4.5-11.0 ) X103/uL (units unknown) (unknown) (unknown) (no date) (unknown) (unknown) XR chest 1V Stat (units unknown) (unknown) (unknown) (no date) (unknown) (unknown) [Embedded Image Not Available] (units unknown) (unknown) (unknown) (no date) (unknown) (unknown) acetaminophen [From Midol] Allergy Verified 07/06/21 13:33 (units unknown) (unknown) (unknown) (no date) (unknown) (unknown) and below (units unknown) (unknown) (unknown) (no date) (unknown) (unknown) appear (units unknown) (unknown) (unknown) (no date) (unknown) (unknown) codeine Allergy Verified 07/06/21 13:34 (units unknown) (unknown) (unknown) (no date) (unknown) (unknown) describes shortness of breath and chest discomfort. No abdominal pain. (units unknown) (unknown) (unknown) (no date) (unknown) (unknown) erythromycin base Allergy Verified 07/06/21 13:34 (units unknown) (unknown) (unknown) (no date) (unknown) (unknown) exacerbation/CHF. I am not 100% convinced this. We have called to request (units unknown) (unknown) (unknown) (no date) (unknown) (unknown) facility where the patient was just discharged. She was able to look up the (units unknown) (unknown) (unknown) (no date) (unknown) (unknown) failure, Hypoxia (units unknown) (unknown) (unknown) (no date) (unknown) (unknown) from the hospital he r oxygen saturations were in the 70s. (units unknown) (unknown) (unknown) (no date) (unknown) (unknown) getting any better. There was a conflict with the providers so she decided to (units unknown) (unknown) (unknown) (no date) (unknown) (unknown) home oxygen but only occasionally. Also reports a history of heart failure. (units unknown) (unknown) (unknown) (no date) (unknown) (unknown) hospital. Medicine will admit for further evaluation and treatment. (units unknown) (unknown) (unknown) (no date) (unknown) (unknown) lead. (units unknown) (unknown) (unknown) (no date) (unknown) (unknown) leave Against Medica l Advice. She came to this emergency department. Here she (units unknown) (unknown) (unknown) (no date) (unknown) (unknown) lives independently: Yes (units unknown) (unknown) (unknown) (no date) (unknown) (unknown) tereza [From [facility] ] Allergy Verified 07/06/21 13:33 (units unknown) (unknown) (unknown) (no date) (unknown) (unknown) patient's record. It appears that she was admitted for both COPD and CHF. (units unknown) (unknown) (unknown) (no date) (unknown) (unknown) pulmonary vascular congestion bilaterally. (units unknown) (unknown) (unknown) (no date) (unknown) (unknown) records however what the patient states was that she was receiving nebulizer (units unknown) (unknown) (unknown) (no date) (unknown) (unknown) records initially from the hospital where she left Against Medical Advice. (units unknown) (unknown) (unknown) (no date) (unknown) (unknown) spending approximately 5 days in the hospital for what sounds like a COPD (units unknown) (unknown) (unknown) (no date) (unknown) (unknown) swelling. Patient wa s hypoxic upon arrival. Apparently when she was discharged (units unknown) (unknown) (unknown) (no date) (unknown) (unknown) the above. Patient was placed on oxygen. I did discuss the case with (units unknown) (unknown) (unknown) (no date) (unknown) (unknown) treatments and was also on ?water restriction'. She states that she was not (units unknown) (unknown) (unknown) (no date) (unknown) (unknown) unremarkable.? (units unknown) (unknown) Result panel [id number] (unknown) (no date) (unknown) (unknown) (no value) (units unknown) (unknown) (unknown) (no date) (unknown) (unknown) (1) Acute exacerbation of chronic obstructive airways disease: (units unknown) (unknown) (unknown) (no date) (unknown) (unknown) (2) Acute hypoxemic respiratory failure: (units unknown) (unknown) (unknown) (no date) (unknown) (unknown) (3) Acute metabolic encephalopathy: (units unknown) (unknown) (unknown) (no date) (unknown) (unknown) (4) CHF exacerbation: (units unknown) (unknown) (unknown) (no date) (unknown) (unknown) (past 8 hours): (units unknown) (unknown) (unknown) (no date) (unknown) (unknown) 01:38 12:06 12:06 (units unknown) (unknown) (unknown) (no date) (unknown) (unknown) 07/24/22 07/24/22 07/24/22 (units unknown) (unknown) (unknown) (no date) (unknown) (unknown) 07/24/22 12:06 (units unknown) (unknown) (unknown) (no date) (unknown) (unknown) 07/24/22 (units unknown) (unknown) (unknown) (no date) (unknown) (unknown) 11:50 07/24/22 (units unknown) (unknown) (unknown) (no date) (unknown) (unknown) 12:00 (units unknown) (unknown) (unknown) (no date) (unknown) (unknown) 12:06 13:06 13:30 (units unknown) (unknown) (unknown) (no date) (unknown) (unknown) 12:18 07/24/22 (units unknown) (unknown) (unknown) (no date) (unknown) (unknown) 12:30 07/24/22 (units unknown) (unknown) (unknown) (no date) (unknown) (unknown) 12:33 07/24/22 (units unknown) (unknown) (unknown) (no date) (unknown) (unknown) 12:33 (units unknown) (unknown) (unknown) (no date) (unknown) (unknown) 13:00 07/24/22 (units unknown) (unknown) (unknown) (no date) (unknown) (unknown) 13:30 07/24/22 (units unknown) (unknown) (unknown) (no date) (unknown) (unknown) 13:30 (units unknown) (unknown) (unknown) (no date) (unknown) (unknown) 13:41 07/24/22 (units unknown) (unknown) (unknown) (no date) (unknown) (unknown) 14:00 07/24/22 (units unknown) (unknown) (unknown) (no date) (unknown) (unknown) 14:18 07/24/22 (units unknown) (unknown) (unknown) (no date) (unknown) (unknown) 14:19 07/24/22 (units unknown) (unknown) (unknown) (no date) (unknown) (unknown) 14:19 (units unknown) (unknown) (unknown) (no date) (unknown) (unknown) 14:30 07/24/22 (units unknown) (unknown) (unknown) (no date) (unknown) (unknown) 15:05 (units unknown) (unknown) (unknown) (no date) (unknown) (unknown) 16:36 07/24/22 (units unknown) (unknown) (unknown) (no date) (unknown) (unknown) 17:13 (units unknown) (unknown) (unknown) (no date) (unknown) (unknown) 19594 (units unknown) (unknown) (unknown) (no date) (unknown) (unknown) 3 L of oxygen continuously), chronic systolic congestive heart failure, coronary (units unknown) (unknown) (unknown) (no date) (unknown) (unknown) 57-year-old female with COPD, chronic hypoxic respiratory failure (prescribed 2 (units unknown) (unknown) (unknown) (no date) (unknown) (unknown) ABG Base Excess 24.0 H (units unknown) (unknown) (unknown) (no date) (unknown) (unknown) ABG Base Excess (units unknown) (unknown) (unknown) (no date) (unknown) (unknown) ABG HCO3 48 H (units unknown) (unknown) (unknown) (no date) (unknown) (unknown) ABG HCO3 (units unknown) (unknown) (unknown) (no date) (unknown) (unknown) ABG O2 Saturation 84 L* (units unknown) (unknown) (unknown) (no date) (unknown) (unknown) ABG O2 Saturation (units unknown) (unknown) (unknown) (no date) (unknown) (unknown) ABG Total CO2 50 H (units unknown) (unknown) (unknown) (no date) (unknown) (unknown) ABG Total CO2 (units unknown) (unknown) (unknown) (no date) (unknown) (unknown) ABG pCO2 69.4 H* (units unknown) (unknown) (unknown) (no date) (unknown) (unknown) ABG pCO2 (units unknown) (unknown) (unknown) (no date) (unknown) (unknown) ABG pH 7.45 (units unknown) (unknown) (unknown) (no date) (unknown) (unknown) ABG pH (units unknown) (unknown) (unknown) (no date) (unknown) (unknown) ABG pO2 50 L (units unknown) (unknown) (unknown) (no date) (unknown) (unknown) ABG pO2 (units unknown) (unknown) (unknown) (no date) (unknown) (unknown) A[facility]S [facility] Administration (units unknown) (unknown) (unknown) (no date) (unknown) (unknown) ALT 74 H (units unknown) (unknown) (unknown) (no date) (unknown) (unknown) ALT (units unknown) (unknown) (unknown) (no date) (unknown) (unknown) AST 31 (units unknown) (unknown) (unknown) (no date) (unknown) (unknown) AST (units unknown) (unknown) (unknown) (no date) (unknown) (unknown) Acetazolamide 250 Mg Tablet PO Not Given (units unknown) (unknown) (unknown) (no date) (unknown) (unknown) Acetazolamide 250 mg 07/24/22 14:15 07/24/22 15:19 (units unknown) (unknown) (unknown) (no date) (unknown) (unknown) Adenovirus (PCR) Not detected (units unknown) (unknown) (unknown) (no date) (unknown) (unknown) Adenovirus (PCR) (units unknown) (unknown) (unknown) (no date) (unknown) (unknown) Age/Sex: 57 / F (units unknown) (unknown) (unknown) (no date) (unknown) (unknown) Albumin 3.8 (units unknown) (unknown) (unknown) (no date) (unknown) (unknown) Albumin (units unknown) (unknown) (unknown) (no date) (unknown) (unknown) Albumin/Globulin Ratio 1.2 (units unknown) (unknown) (unknown) (no date) (unknown) (unknown) Albumin/Globulin Ratio (units unknown) (unknown) (unknown) (no date) (unknown) (unknown) Albuterol/Ipratropiu m 3 Ml Ampul INH 3 ml (units unknown) (unknown) (unknown) (no date) (unknown) (unknown) Albuterol/Ipratropiu m 3 ml 07/24/22 15:00 07/24/22 15:05 (units unknown) (unknown) (unknown) (no date) (unknown) (unknown) Alkaline Phosphatase 83 (units unknown) (unknown) (unknown) (no date) (unknown) (unknown) Alkaline Phosphatase (units unknown) (unknown) (unknown) (no date) (unknown) (unknown) Assessment + Plan (units unknown) (unknown) (unknown) (no date) (unknown) (unknown) Assessment and plan (units unknown) (unknown) (unknown) (no date) (unknown) (unknown) B. pertussis DNA (PCR) Not detected (units unknown) (unknown) (unknown) (no date) (unknown) (unknown) B. pertussis DNA (PCR) (units unknown) (unknown) (unknown) (no date) (unknown) (unknown) B.parapertussis DNA PCR Not detected (units unknown) (unknown) (unknown) (no date) (unknown) (unknown) B.parapertussis DNA PCR (units unknown) (unknown) (unknown) (no date) (unknown) (unknown) BID ROMAN (units unknown) (unknown) (unknown) (no date) (unknown) (unknown) BUN 41 H (units unknown) (unknown) (unknown) (no date) (unknown) (unknown) BUN (units unknown) (unknown) (unknown) (no date) (unknown) (unknown) BUN/Creatinine Ratio 51.3 H (units unknown) (unknown) (unknown) (no date) (unknown) (unknown) BUN/Creatinine Ratio (units unknown) (unknown) (unknown) (no date) (unknown) (unknown) Baso # (Auto) 0 (units unknown) (unknown) (unknown) (no date) (unknown) (unknown) Baso # (Auto) (units unknown) (unknown) (unknown) (no date) (unknown) (unknown) Baso % (Auto) 0.1 (units unknown) (unknown) (unknown) (no date) (unknown) (unknown) Baso % (Auto) (units unknown) (unknown) (unknown) (no date) (unknown) (unknown) Blood Pressure 112/5 6 L (units unknown) (unknown) (unknown) (no date) (unknown) (unknown) Blood Pressure 124/67 (units unknown) (unknown) (unknown) (no date) (unknown) (unknown) Blood Pressure 129/6 0 120/54 L (units unknown) (unknown) (unknown) (no date) (unknown) (unknown) Blood Pressure 129/60 (units unknown) (unknown) (unknown) (no date) (unknown) (unknown) Blood Pressure 138/60 (units unknown) (unknown) (unknown) (no date) (unknown) (unknown) Blood Pressure (units unknown) (unknown) (unknown) (no date) (unknown) (unknown) CK-MB (CK-2) Rel Index TNP (units unknown) (unknown) (unknown) (no date) (unknown) (unknown) CK-MB (CK-2) Rel Index (units unknown) (unknown) (unknown) (no date) (unknown) (unknown) CK-MB (CK-2) TNP (units unknown) (unknown) (unknown) (no date) (unknown) (unknown) CK-MB (CK-2) (units unknown) (unknown) (unknown) (no date) (unknown) (unknown) COPD (chronic obstructive pulmonary disease) (units unknown) (unknown) (unknown) (no date) (unknown) (unknown) Calcium 9.5 (units unknown) (unknown) (unknown) (no date) (unknown) (unknown) Calcium (units unknown) (unknown) (unknown) (no date) (unknown) (unknown) Cannula (units unknown) (unknown) (unknown) (no date) (unknown) (unknown) Carbon Dioxide 38 H (units unknown) (unknown) (unknown) (no date) (unknown) (unknown) Carbon Dioxide (units unknown) (unknown) (unknown) (no date) (unknown) (unknown) Chief complaint: Sob , 'congestive heart failure' per pt (units unknown) (unknown) (unknown) (no date) (unknown) (unknown) Chlamy pneumoniae PC R Not detected (units unknown) (unknown) (unknown) (no date) (unknown) (unknown) Chlamy pneumoniae PCR (units unknown) (unknown) (unknown) (no date) (unknown) (unknown) Chloride 90 L (units unknown) (unknown) (unknown) (no date) (unknown) (unknown) Chloride (units unknown) (unknown) (unknown) (no date) (unknown) (unknown) Consent obtained for tele-credit officer care: Yes (units unknown) (unknown) (unknown) (no date) (unknown) (unknown) Consult details (units unknown) (unknown) (unknown) (no date) (unknown) (unknown) Coronavirus 229E (PCR) Not detected (units unknown) (unknown) (unknown) (no date) (unknown) (unknown) Coronavirus 229E (PCR) (units unknown) (unknown) (unknown) (no date) (unknown) (unknown) Coronavirus HKU1 (PCR) Not detected (units unknown) (unknown) (unknown) (no date) (unknown) (unknown) Coronavirus HKU1 (PCR) (units unknown) (unknown) (unknown) (no date) (unknown) (unknown) Coronavirus NL63 (PCR) Not detected (units unknown) (unknown) (unknown) (no date) (unknown) (unknown) Coronavirus NL63 (PCR) (units unknown) (unknown) (unknown) (no date) (unknown) (unknown) Coronavirus OC43 (PCR) Not detected (units unknown) (unknown) (unknown) (no date) (unknown) (unknown) Coronavirus OC43 (PCR) (units unknown) (unknown) (unknown) (no date) (unknown) (unknown) Creatinine 0.80 (units unknown) (unknown) (unknown) (no date) (unknown) (unknown) Creatinine (units unknown) (unknown) (unknown) (no date) (unknown) (unknown) Critical Care time: (units unknown) (unknown) (unknown) (no date) (unknown) (unknown) Current Medications (units unknown) (unknown) (unknown) (no date) (unknown) (unknown) : 1965 Acct:[id number] (units unknown) (unknown) (unknown) (no date) (unknown) (unknown) Date of Service: 07/24/22 (units unknown) (unknown) (unknown) (no date) (unknown) (unknown) Entero/Rhino (PCR) Not detected (units unknown) (unknown) (unknown) (no date) (unknown) (unknown) Entero/Rhino (PCR) (units unknown) (unknown) (unknown) (no date) (unknown) (unknown) Eos # (Auto) 0 (units unknown) (unknown) (unknown) (no date) (unknown) (unknown) Eos # (Auto) (units unknown) (unknown) (unknown) (no date) (unknown) (unknown) Eos % (Auto) 0.0 L (units unknown) (unknown) (unknown) (no date) (unknown) (unknown) Eos % (Auto) (units unknown) (unknown) (unknown) (no date) (unknown) (unknown) Estimated GFR > 60 (units unknown) (unknown) (unknown) (no date) (unknown) (unknown) Estimated GFR (units unknown) (unknown) (unknown) (no date) (unknown) (unknown) Exam Narrative: (units unknown) (unknown) (unknown) (no date) (unknown) (unknown) Exam (units unknown) (unknown) (unknown) (no date) (unknown) (unknown) FiO2 40 (units unknown) (unknown) (unknown) (no date) (unknown) (unknown) FiO2 (units unknown) (unknown) (unknown) (no date) (unknown) (unknown) Fraction of Inspired Oxygen 35 (units unknown) (unknown) (unknown) (no date) (unknown) (unknown) Fraction of Inspired Oxygen 36 (units unknown) (unknown) (unknown) (no date) (unknown) (unknown) Fraction of Inspired Oxygen (units unknown) (unknown) (unknown) (no date) (unknown) (unknown) Generic Name Dose Route Start Last Admin (units unknown) (unknown) (unknown) (no date) (unknown) (unknown) Globulin 3.2 (units unknown) (unknown) (unknown) (no date) (unknown) (unknown) Globulin (units unknown) (unknown) (unknown) (no date) (unknown) (unknown) Glucose 248 H (units unknown) (unknown) (unknown) (no date) (unknown) (unknown) Glucose (units unknown) (unknown) (unknown) (no date) (unknown) (unknown) Hct 48.5 H (units unknown) (unknown) (unknown) (no date) (unknown) (unknown) Hct (units unknown) (unknown) (unknown) (no date) (unknown) (unknown) Hgb 15.8 (units unknown) (unknown) (unknown) (no date) (unknown) (unknown) Hgb (units unknown) (unknown) (unknown) (no date) (unknown) (unknown) History of Present Illness (units unknown) (unknown) (unknown) (no date) (unknown) (unknown) Human Metapneumovir PCR Detected H (units unknown) (unknown) (unknown) (no date) (unknown) (unknown) Human Metapneumovir PCR (units unknown) (unknown) (unknown) (no date) (unknown) (unknown) I spent a total of [ ] minutes of critical care time on this patient's care (units unknown) (unknown) (unknown) (no date) (unknown) (unknown) Influenza Type A (PCR) Not detected (units unknown) (unknown) (unknown) (no date) (unknown) (unknown) Influenza Type A (PCR) (units unknown) (unknown) (unknown) (no date) (unknown) (unknown) Influenza Type B (PCR) Not detected (units unknown) (unknown) (unknown) (no date) (unknown) (unknown) Influenza Type B (PCR) (units unknown) (unknown) (unknown) (no date) (unknown) (unknown) Insulin Human Lispro 0 unit 07/24/22 16:45 07/24/22 17:08 (units unknown) (unknown) (unknown) (no date) (unknown) (unknown) Insulin Lispro 100 Unit/Ml 3ml Vial SUBCUT 3 unit (units unknown) (unknown) (unknown) (no date) (unknown) (unknown) [address] [address] (units unknown) (unknown) (unknown) (no date) (unknown) (unknown) Laboratory Results - last 24 hr (units unknown) (unknown) (unknown) (no date) (unknown) (unknown) Labs (units unknown) (unknown) (unknown) (no date) (unknown) (unknown) Labs: (units unknown) (unknown) (unknown) (no date) (unknown) (unknown) Lactate 2.2 H 2.2 H (units unknown) (unknown) (unknown) (no date) (unknown) (unknown) Lactate (units unknown) (unknown) (unknown) (no date) (unknown) (unknown) Lipase 43 (units unknown) (unknown) (unknown) (no date) (unknown) (unknown) Lipase (units unknown) (unknown) (unknown) (no date) (unknown) (unknown) Lymph # (Auto) 1000 L (units unknown) (unknown) (unknown) (no date) (unknown) (unknown) Lymph # (Auto) (units unknown) (unknown) (unknown) (no date) (unknown) (unknown) Lymph % (Auto) 5.0 L (units unknown) (unknown) (unknown) (no date) (unknown) (unknown) Lymph % (Auto) (units unknown) (unknown) (unknown) (no date) (unknown) (unknown) M. pneumoniae (PCR) Not detected (units unknown) (unknown) (unknown) (no date) (unknown) (unknown) M. pneumoniae (PCR) (units unknown) (unknown) (unknown) (no date) (unknown) (unknown) MCH 30.9 (units unknown) (unknown) (unknown) (no date) (unknown) (unknown) MCH (units unknown) (unknown) (unknown) (no date) (unknown) (unknown) MCHC 32.6 (units unknown) (unknown) (unknown) (no date) (unknown) (unknown) MCHC (units unknown) (unknown) (unknown) (no date) (unknown) (unknown) MCV 94.8 (units unknown) (unknown) (unknown) (no date) (unknown) (unknown) MCV (units unknown) (unknown) (unknown) (no date) (unknown) (unknown) Medical History (units unknown) (unknown) (unknown) (no date) (unknown) (unknown) Medications: (units unknown) (unknown) (unknown) (no date) (unknown) (unknown) Methylprednisolone 125 Mg/2 Ml Vial IV Not Given (units unknown) (unknown) (unknown) (no date) (unknown) (unknown) Methylprednisolone 8 0 mg 07/24/22 13:53 07/24/22 14:47 (units unknown) (unknown) (unknown) (no date) (unknown) (unknown) [place] # (Auto) 1400 H (units unknown) (unknown) (unknown) (no date) (unknown) (unknown) [place] # (Auto) (units unknown) (unknown) (unknown) (no date) (unknown) (unknown) [place] % (Auto) 7.0 (units unknown) (unknown) (unknown) (no date) (unknown) (unknown) [place] % (Auto) (units unknown) (unknown) (unknown) (no date) (unknown) (unknown) NT-Pro-B Natriuret Pep 2860 H (units unknown) (unknown) (unknown) (no date) (unknown) (unknown) NT-Pro-B Natriuret Pep (units unknown) (unknown) (unknown) (no date) (unknown) (unknown) Narrative (units unknown) (unknown) (unknown) (no date) (unknown) (unknown) Narrative: (units unknown) (unknown) (unknown) (no date) (unknown) (unknown) Neut # (Auto) 74908 H (units unknown) (unknown) (unknown) (no date) (unknown) (unknown) Neut # (Auto) (units unknown) (unknown) (unknown) (no date) (unknown) (unknown) Neut % (Auto) 87.9 H (units unknown) (unknown) (unknown) (no date) (unknown) (unknown) Neut % (Auto) (units unknown) (unknown) (unknown) (no date) (unknown) (unknown) Objective (units unknown) (unknown) (unknown) (no date) (unknown) (unknown) Oxygen Delivery Method BiPAP High Flow Nasal (units unknown) (unknown) (unknown) (no date) (unknown) (unknown) Oxygen Delivery Method High Flow Nasal Cannula (units unknown) (unknown) (unknown) (no date) (unknown) (unknown) Oxygen Delivery Method Nasal Cannula (units unknown) (unknown) (unknown) (no date) (unknown) (unknown) Oxygen Delivery Method Room Air Nasal Cannula (units unknown) (unknown) (unknown) (no date) (unknown) (unknown) Oxygen Delivery Method (units unknown) (unknown) (unknown) (no date) (unknown) (unknown) Oxygen Flow Rate 4 (units unknown) (unknown) (unknown) (no date) (unknown) (unknown) Oxygen Flow Rate 5 (units unknown) (unknown) (unknown) (no date) (unknown) (unknown) Oxygen Flow Rate (units unknown) (unknown) (unknown) (no date) (unknown) (unknown) PFSH (units unknown) (unknown) (unknown) (no date) (unknown) (unknown) Parainfluenza 1 (PCR ) Not detected (units unknown) (unknown) (unknown) (no date) (unknown) (unknown) Parainfluenza 1 (PCR) (units unknown) (unknown) (unknown) (no date) (unknown) (unknown) Parainfluenza 2 (PCR ) Not detected (units unknown) (unknown) (unknown) (no date) (unknown) (unknown) Parainfluenza 2 (PCR) (units unknown) (unknown) (unknown) (no date) (unknown) (unknown) Parainfluenza 3 (PCR ) Not detected (units unknown) (unknown) (unknown) (no date) (unknown) (unknown) Parainfluenza 3 (PCR) (units unknown) (unknown) (unknown) (no date) (unknown) (unknown) Parainfluenza 4 (PCR ) Not detected (units unknown) (unknown) (unknown) (no date) (unknown) (unknown) Parainfluenza 4 (PCR) (units unknown) (unknown) (unknown) (no date) (unknown) (unknown) Patient Location: ICU (units unknown) (unknown) (unknown) (no date) (unknown) (unknown) Patient: Ester Benavides MR#: [id number] (units unknown) (unknown) (unknown) (no date) (unknown) (unknown) Plt Count 320 (units unknown) (unknown) (unknown) (no date) (unknown) (unknown) Plt Count (units unknown) (unknown) (unknown) (no date) (unknown) (unknown) Potassium 4.1 (units unknown) (unknown) (unknown) (no date) (unknown) (unknown) Potassium (units unknown) (unknown) (unknown) (no date) (unknown) (unknown) Procalcitonin 0.06 (units unknown) (unknown) (unknown) (no date) (unknown) (unknown) Procalcitonin (units unknown) (unknown) (unknown) (no date) (unknown) (unknown) Protocol (units unknown) (unknown) (unknown) (no date) (unknown) (unknown) Provider: Myke Medeiros (units unknown) (unknown) (unknown) (no date) (unknown) (unknown) Pulse Oximetry 78 L 89 L (units unknown) (unknown) (unknown) (no date) (unknown) (unknown) Pulse Oximetry 88 L 86 L (units unknown) (unknown) (unknown) (no date) (unknown) (unknown) Pulse Oximetry 89 L 90 L (units unknown) (unknown) (unknown) (no date) (unknown) (unknown) Pulse Oximetry 90 L 93 (units unknown) (unknown) (unknown) (no date) (unknown) (unknown) Pulse Oximetry 90 L (units unknown) (unknown) (unknown) (no date) (unknown) (unknown) Pulse Oximetry 91 89 L (units unknown) (unknown) (unknown) (no date) (unknown) (unknown) Pulse Rate 30 L 59 L (units unknown) (unknown) (unknown) (no date) (unknown) (unknown) Pulse Rate 60 60 (units unknown) (unknown) (unknown) (no date) (unknown) (unknown) Pulse Rate 60 66 (units unknown) (unknown) (unknown) (no date) (unknown) (unknown) Pulse Rate 61 61 (units unknown) (unknown) (unknown) (no date) (unknown) (unknown) Pulse Rate 71 (units unknown) (unknown) (unknown) (no date) (unknown) (unknown) Pulse Rate 73 89 73 (units unknown) (unknown) (unknown) (no date) (unknown) (unknown) Q12H ROMAN (units unknown) (unknown) (unknown) (no date) (unknown) (unknown) RBC 5.11 (units unknown) (unknown) (unknown) (no date) (unknown) (unknown) RBC (units unknown) (unknown) (unknown) (no date) (unknown) (unknown) RDW 14.0 (units unknown) (unknown) (unknown) (no date) (unknown) (unknown) RDW (units unknown) (unknown) (unknown) (no date) (unknown) (unknown) RSV (PCR) Not detected (units unknown) (unknown) (unknown) (no date) (unknown) (unknown) RSV (PCR) (units unknown) (unknown) (unknown) (no date) (unknown) (unknown) [id number] ROMAN Administration (units unknown) (unknown) (unknown) (no date) (unknown) (unknown) Respiratory Rate 24 30 H (units unknown) (unknown) (unknown) (no date) (unknown) (unknown) Respiratory Rate 33 H 30 H (units unknown) (unknown) (unknown) (no date) (unknown) (unknown) Respiratory Rate 38 H (units unknown) (unknown) (unknown) (no date) (unknown) (unknown) Respiratory Rate (units unknown) (unknown) (unknown) (no date) (unknown) (unknown) Review of Systems (units unknown) (unknown) (unknown) (no date) (unknown) (unknown) SARS-CoV-2 (PCR) Not detected (units unknown) (unknown) (unknown) (no date) (unknown) (unknown) SARS-CoV-2 (PCR) (units unknown) (unknown) (unknown) (no date) (unknown) (unknown) SaO2/FiO2 Ratio 247 (units unknown) (unknown) (unknown) (no date) (unknown) (unknown) Signed By: (units unknown) (unknown) (unknown) (no date) (unknown) (unknown) Smoking Status: Current every day smoker (units unknown) (unknown) (unknown) (no date) (unknown) (unknown) Social History (units unknown) (unknown) (unknown) (no date) (unknown) (unknown) Sodium 136 L (units unknown) (unknown) (unknown) (no date) (unknown) (unknown) Sodium (units unknown) (unknown) (unknown) (no date) (unknown) (unknown) Status: Acute (units unknown) (unknown) (unknown) (no date) (unknown) (unknown) Teleintensivist Consult Note (units unknown) (unknown) (unknown) (no date) (unknown) (unknown) Temperature 97.5 F L (units unknown) (unknown) (unknown) (no date) (unknown) (unknown) Temperature 98.1 F (units unknown) (unknown) (unknown) (no date) (unknown) (unknown) Temperature (units unknown) (unknown) (unknown) (no date) (unknown) (unknown) Time Spent With Patient (units unknown) (unknown) (unknown) (no date) (unknown) (unknown) Total Bilirubin 0.7 (units unknown) (unknown) (unknown) (no date) (unknown) (unknown) Total Bilirubin (units unknown) (unknown) (unknown) (no date) (unknown) (unknown) Total Creatine Kinas e 36 (units unknown) (unknown) (unknown) (no date) (unknown) (unknown) Total Creatine Kinase (units unknown) (unknown) (unknown) (no date) (unknown) (unknown) Total Protein 7.0 (units unknown) (unknown) (unknown) (no date) (unknown) (unknown) Total Protein (units unknown) (unknown) (unknown) (no date) (unknown) (unknown) Trade Name Freq PRN Reason Stop Dose Admin (units unknown) (unknown) (unknown) (no date) (unknown) (unknown) Troponin I < 0.012 (units unknown) (unknown) (unknown) (no date) (unknown) (unknown) Troponin I (units unknown) (unknown) (unknown) (no date) (unknown) (unknown) Visit Medications (administered) (units unknown) (unknown) (unknown) (no date) (unknown) (unknown) Vital Signs (units unknown) (unknown) (unknown) (no date) (unknown) (unknown) WBC 20.6 H (units unknown) (unknown) (unknown) (no date) (unknown) (unknown) WBC (units unknown) (unknown) (unknown) (no date) (unknown) (unknown) [Embedded Image Not Available] (units unknown) (unknown) (unknown) (no date) (unknown) (unknown) acidotic. XR chest with pulmonary vascular congestion, additionaly her left (units unknown) (unknown) (unknown) (no date) (unknown) (unknown) adequate TV. 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 (units unknown) (unknown) (unknown) (no date) (unknown) (unknown) increased lately. phenotype of her COPD is unknown due ot lack of CT imaging. On (units unknown) (unknown) (unknown) (no date) (unknown) (unknown) lives independently: Yes (units unknown) (unknown) (unknown) (no date) (unknown) (unknown) pacemaker/AICD placement, diabetes mellitus type 2 on oral antidiabetic agents, (units unknown) (unknown) (unknown) (no date) (unknown) (unknown) [facility], and required bipapa due worsneign hypoxemia. She (units unknown) (unknown) (unknown) (no date) (unknown) (unknown) resp fialure which likely multifactorial from AECOPD and CHF exacerbation. Pt (units unknown) (unknown) (unknown) (no date) (unknown) (unknown) surrogate for full exam is primary team (units unknown) (unknown) (unknown) (no date) (unknown) (unknown) today; this time is exclusive of procedural time. (units unknown) (unknown) (unknown) (no date) (unknown) (unknown) unable to obtain (units unknown) (unknown) (unknown) (no date) (unknown) (unknown) was recently hospitalized and signed out AMA, however due to worsneing SOB she (units unknown) (unknown) (unknown) (no date) (unknown) (unknown) ym eval this afternoon ,she was somnolescent but synchrnous on bipap with (units unknown) (unknown) Result panel 649 (unknown) (no date) (unknown) (unknown) (no value) (units unknown) (unknown) (unknown) (no date) (unknown) (unknown) (1) Acute exacerbation of chronic obstructive airways disease: (units unknown) (unknown) (unknown) (no date) (unknown) (unknown) (2) Acute hypoxemic respiratory failure: (units unknown) (unknown) (unknown) (no date) (unknown) (unknown) (3) Acute metabolic encephalopathy: (units unknown) (unknown) (unknown) (no date) (unknown) (unknown) (4) CHF exacerbation: (units unknown) (unknown) (unknown) (no date) (unknown) (unknown) (5) Human metapneumovirus (hMPV) pneumonia: (units unknown) (unknown) (unknown) (no date) (unknown) (unknown) (past 8 hours): (units unknown) (unknown) (unknown) (no date) (unknown) (unknown) 01:38 12:06 12:06 (units unknown) (unknown) (unknown) (no date) (unknown) (unknown) 07/24/22 07/24/22 07/24/22 (units unknown) (unknown) (unknown) (no date) (unknown) (unknown) 07/24/22 12:06 (units unknown) (unknown) (unknown) (no date) (unknown) (unknown) 07/24/22 1734 (units unknown) (unknown) (unknown) (no date) (unknown) (unknown) 07/24/22 (units unknown) (unknown) (unknown) (no date) (unknown) (unknown) 11:50 07/24/22 (units unknown) (unknown) (unknown) (no date) (unknown) (unknown) 12:00 (units unknown) (unknown) (unknown) (no date) (unknown) (unknown) 12:06 13:06 13:30 (units unknown) (unknown) (unknown) (no date) (unknown) (unknown) 12:18 07/24/22 (units unknown) (unknown) (unknown) (no date) (unknown) (unknown) 12:30 07/24/22 (units unknown) (unknown) (unknown) (no date) (unknown) (unknown) 12:33 07/24/22 (units unknown) (unknown) (unknown) (no date) (unknown) (unknown) 12:33 (units unknown) (unknown) (unknown) (no date) (unknown) (unknown) 13:00 07/24/22 (units unknown) (unknown) (unknown) (no date) (unknown) (unknown) 13:30 07/24/22 (units unknown) (unknown) (unknown) (no date) (unknown) (unknown) 13:30 (units unknown) (unknown) (unknown) (no date) (unknown) (unknown) 13:41 07/24/22 (units unknown) (unknown) (unknown) (no date) (unknown) (unknown) 14:00 07/24/22 (units unknown) (unknown) (unknown) (no date) (unknown) (unknown) 14:18 07/24/22 (units unknown) (unknown) (unknown) (no date) (unknown) (unknown) 14:19 07/24/22 (units unknown) (unknown) (unknown) (no date) (unknown) (unknown) 14:19 (units unknown) (unknown) (unknown) (no date) (unknown) (unknown) 14:30 07/24/22 (units unknown) (unknown) (unknown) (no date) (unknown) (unknown) 15:05 (units unknown) (unknown) (unknown) (no date) (unknown) (unknown) 16:36 07/24/22 (units unknown) (unknown) (unknown) (no date) (unknown) (unknown) 17:13 (units unknown) (unknown) (unknown) (no date) (unknown) (unknown) [address] (units unknown) (unknown) (unknown) (no date) (unknown) (unknown) 3 L of oxygen continuously), chronic systolic congestive heart failure, coronary (units unknown) (unknown) (unknown) (no date) (unknown) (unknown) 57-year-old female with COPD, chronic hypoxic respiratory failure (prescribed 2 (units unknown) (unknown) (unknown) (no date) (unknown) (unknown) ABG Base Excess 24.0 H (units unknown) (unknown) (unknown) (no date) (unknown) (unknown) ABG Base Excess (units unknown) (unknown) (unknown) (no date) (unknown) (unknown) ABG HCO3 48 H (units unknown) (unknown) (unknown) (no date) (unknown) (unknown) ABG HCO3 (units unknown) (unknown) (unknown) (no date) (unknown) (unknown) ABG O2 Saturation 84 L* (units unknown) (unknown) (unknown) (no date) (unknown) (unknown) ABG O2 Saturation (units unknown) (unknown) (unknown) (no date) (unknown) (unknown) ABG Total CO2 50 H (units unknown) (unknown) (unknown) (no date) (unknown) (unknown) ABG Total CO2 (units unknown) (unknown) (unknown) (no date) (unknown) (unknown) ABG pCO2 69.4 H* (units unknown) (unknown) (unknown) (no date) (unknown) (unknown) ABG pCO2 (units unknown) (unknown) (unknown) (no date) (unknown) (unknown) ABG pH 7.45 (units unknown) (unknown) (unknown) (no date) (unknown) (unknown) ABG pH (units unknown) (unknown) (unknown) (no date) (unknown) (unknown) ABG pO2 50 L (units unknown) (unknown) (unknown) (no date) (unknown) (unknown) ABG pO2 (units unknown) (unknown) (unknown) (no date) (unknown) (unknown) [facility] Administration (units unknown) (unknown) (unknown) (no date) (unknown) (unknown) ALT 74 H (units unknown) (unknown) (unknown) (no date) (unknown) (unknown) ALT (units unknown) (unknown) (unknown) (no date) (unknown) (unknown) AST 31 (units unknown) (unknown) (unknown) (no date) (unknown) (unknown) AST (units unknown) (unknown) (unknown) (no date) (unknown) (unknown) Acetazolamide 250 Mg Tablet PO Not Given (units unknown) (unknown) (unknown) (no date) (unknown) (unknown) Acetazolamide 250 mg 07/24/22 14:15 07/24/22 15:19 (units unknown) (unknown) (unknown) (no date) (unknown) (unknown) Adenovirus (PCR) Not detected (units unknown) (unknown) (unknown) (no date) (unknown) (unknown) Adenovirus (PCR) (units unknown) (unknown) (unknown) (no date) (unknown) (unknown) Age/Sex: 57 / F (units unknown) (unknown) (unknown) (no date) (unknown) (unknown) Albumin 3.8 (units unknown) (unknown) (unknown) (no date) (unknown) (unknown) Albumin (units unknown) (unknown) (unknown) (no date) (unknown) (unknown) Albumin/Globulin Ratio 1.2 (units unknown) (unknown) (unknown) (no date) (unknown) (unknown) Albumin/Globulin Ratio (units unknown) (unknown) (unknown) (no date) (unknown) (unknown) Albuterol/Ipratropiu m 3 Ml Ampul INH 3 ml (units unknown) (unknown) (unknown) (no date) (unknown) (unknown) Albuterol/Ipratropiu m 3 ml 07/24/22 15:00 07/24/22 15:05 (units unknown) (unknown) (unknown) (no date) (unknown) (unknown) Alkaline Phosphatase 83 (units unknown) (unknown) (unknown) (no date) (unknown) (unknown) Alkaline Phosphatase (units unknown) (unknown) (unknown) (no date) (unknown) (unknown) Assessment + Plan narrative: (units unknown) (unknown) (unknown) (no date) (unknown) (unknown) Assessment + Plan (units unknown) (unknown) (unknown) (no date) (unknown) (unknown) Assessment and plan (units unknown) (unknown) (unknown) (no date) (unknown) (unknown) B. pertussis DNA (PCR) Not detected (units unknown) (unknown) (unknown) (no date) (unknown) (unknown) B. pertussis DNA (PCR) (units unknown) (unknown) (unknown) (no date) (unknown) (unknown) B.parapertussis DNA PCR Not detected (units unknown) (unknown) (unknown) (no date) (unknown) (unknown) B.parapertussis DNA PCR (units unknown) (unknown) (unknown) (no date) (unknown) (unknown) BID ROMAN (units unknown) (unknown) (unknown) (no date) (unknown) (unknown) BUN 41 H (units unknown) (unknown) (unknown) (no date) (unknown) (unknown) BUN (units unknown) (unknown) (unknown) (no date) (unknown) (unknown) BUN/Creatinine Ratio 51.3 H (units unknown) (unknown) (unknown) (no date) (unknown) (unknown) BUN/Creatinine Ratio (units unknown) (unknown) (unknown) (no date) (unknown) (unknown) Baso # (Auto) 0 (units unknown) (unknown) (unknown) (no date) (unknown) (unknown) Baso # (Auto) (units unknown) (unknown) (unknown) (no date) (unknown) (unknown) Baso % (Auto) 0.1 (units unknown) (unknown) (unknown) (no date) (unknown) (unknown) Baso % (Auto) (units unknown) (unknown) (unknown) (no date) (unknown) (unknown) Blood Pressure 112/5 6 L (units unknown) (unknown) (unknown) (no date) (unknown) (unknown) Blood Pressure 124/67 (units unknown) (unknown) (unknown) (no date) (unknown) (unknown) Blood Pressure 129/6 0 120/54 L (units unknown) (unknown) (unknown) (no date) (unknown) (unknown) Blood Pressure 129/60 (units unknown) (unknown) (unknown) (no date) (unknown) (unknown) Blood Pressure 138/60 (units unknown) (unknown) (unknown) (no date) (unknown) (unknown) Blood Pressure (units unknown) (unknown) (unknown) (no date) (unknown) (unknown) CK-MB (CK-2) Rel Index TNP (units unknown) (unknown) (unknown) (no date) (unknown) (unknown) CK-MB (CK-2) Rel Index (units unknown) (unknown) (unknown) (no date) (unknown) (unknown) CK-MB (CK-2) TNP (units unknown) (unknown) (unknown) (no date) (unknown) (unknown) CK-MB (CK-2) (units unknown) (unknown) (unknown) (no date) (unknown) (unknown) COPD (chronic obstructive pulmonary disease) (units unknown) (unknown) (unknown) (no date) (unknown) (unknown) Calcium 9.5 (units unknown) (unknown) (unknown) (no date) (unknown) (unknown) Calcium (units unknown) (unknown) (unknown) (no date) (unknown) (unknown) Cannula (units unknown) (unknown) (unknown) (no date) (unknown) (unknown) Carbon Dioxide 38 H (units unknown) (unknown) (unknown) (no date) (unknown) (unknown) Carbon Dioxide (units unknown) (unknown) (unknown) (no date) (unknown) (unknown) Chief complaint: Sob , 'congestive heart failure' per pt (units unknown) (unknown) (unknown) (no date) (unknown) (unknown) Chlamy pneumoniae PC R Not detected (units unknown) (unknown) (unknown) (no date) (unknown) (unknown) Chlamy pneumoniae PCR (units unknown) (unknown) (unknown) (no date) (unknown) (unknown) Chloride 90 L (units unknown) (unknown) (unknown) (no date) (unknown) (unknown) Chloride (units unknown) (unknown) (unknown) (no date) (unknown) (unknown) Consent obtained for tele-credit officer care: Yes (units unknown) (unknown) (unknown) (no date) (unknown) (unknown) Consult details (units unknown) (unknown) (unknown) (no date) (unknown) (unknown) Coronavirus 229E (PCR) Not detected (units unknown) (unknown) (unknown) (no date) (unknown) (unknown) Coronavirus 229E (PCR) (units unknown) (unknown) (unknown) (no date) (unknown) (unknown) Coronavirus HKU1 (PCR) Not detected (units unknown) (unknown) (unknown) (no date) (unknown) (unknown) Coronavirus HKU1 (PCR) (units unknown) (unknown) (unknown) (no date) (unknown) (unknown) Coronavirus NL63 (PCR) Not detected (units unknown) (unknown) (unknown) (no date) (unknown) (unknown) Coronavirus NL63 (PCR) (units unknown) (unknown) (unknown) (no date) (unknown) (unknown) Coronavirus OC43 (PCR) Not detected (units unknown) (unknown) (unknown) (no date) (unknown) (unknown) Coronavirus OC43 (PCR) (units unknown) (unknown) (unknown) (no date) (unknown) (unknown) Creatinine 0.80 (units unknown) (unknown) (unknown) (no date) (unknown) (unknown) Creatinine (units unknown) (unknown) (unknown) (no date) (unknown) (unknown) Critical Care time: (units unknown) (unknown) (unknown) (no date) (unknown) (unknown) Current Medications (units unknown) (unknown) (unknown) (no date) (unknown) (unknown) : 1965 Acct:[id number] (units unknown) (unknown) (unknown) (no date) (unknown) (unknown) Date of Service: 07/24/22 (units unknown) (unknown) (unknown) (no date) (unknown) (unknown) Entero/Rhino (PCR) Not detected (units unknown) (unknown) (unknown) (no date) (unknown) (unknown) Entero/Rhino (PCR) (units unknown) (unknown) (unknown) (no date) (unknown) (unknown) Eos # (Auto) 0 (units unknown) (unknown) (unknown) (no date) (unknown) (unknown) Eos # (Auto) (units unknown) (unknown) (unknown) (no date) (unknown) (unknown) Eos % (Auto) 0.0 L (units unknown) (unknown) (unknown) (no date) (unknown) (unknown) Eos % (Auto) (units unknown) (unknown) (unknown) (no date) (unknown) (unknown) Estimated GFR > 60 (units unknown) (unknown) (unknown) (no date) (unknown) (unknown) Estimated GFR (units unknown) (unknown) (unknown) (no date) (unknown) (unknown) Exam Narrative: (units unknown) (unknown) (unknown) (no date) (unknown) (unknown) Exam (units unknown) (unknown) (unknown) (no date) (unknown) (unknown) FiO2 40 (units unknown) (unknown) (unknown) (no date) (unknown) (unknown) FiO2 (units unknown) (unknown) (unknown) (no date) (unknown) (unknown) Fraction of Inspired Oxygen 35 (units unknown) (unknown) (unknown) (no date) (unknown) (unknown) Fraction of Inspired Oxygen 36 (units unknown) (unknown) (unknown) (no date) (unknown) (unknown) Fraction of Inspired Oxygen (units unknown) (unknown) (unknown) (no date) (unknown) (unknown) Generic Name Dose Route Start Last Admin (units unknown) (unknown) (unknown) (no date) (unknown) (unknown) Globulin 3.2 (units unknown) (unknown) (unknown) (no date) (unknown) (unknown) Globulin (units unknown) (unknown) (unknown) (no date) (unknown) (unknown) Glucose 248 H (units unknown) (unknown) (unknown) (no date) (unknown) (unknown) Glucose (units unknown) (unknown) (unknown) (no date) (unknown) (unknown) Hct 48.5 H (units unknown) (unknown) (unknown) (no date) (unknown) (unknown) Hct (units unknown) (unknown) (unknown) (no date) (unknown) (unknown) Hgb 15.8 (units unknown) (unknown) (unknown) (no date) (unknown) (unknown) Hgb (units unknown) (unknown) (unknown) (no date) (unknown) (unknown) History of Present Illness (units unknown) (unknown) (unknown) (no date) (unknown) (unknown) Human Metapneumovir PCR Detected H (units unknown) (unknown) (unknown) (no date) (unknown) (unknown) Human Metapneumovir PCR (units unknown) (unknown) (unknown) (no date) (unknown) (unknown) I spent a total of 35[] minutes of critical care time on this patient's care (units unknown) (unknown) (unknown) (no date) (unknown) (unknown) IF CAMER[facility] ACTIVATED, patient seen via real-time interactive audiovisual (units unknown) (unknown) (unknown) (no date) (unknown) (unknown) Influenza Type A (PCR) Not detected (units unknown) (unknown) (unknown) (no date) (unknown) (unknown) Influenza Type A (PCR) (units unknown) (unknown) (unknown) (no date) (unknown) (unknown) Influenza Type B (PCR) Not detected (units unknown) (unknown) (unknown) (no date) (unknown) (unknown) Influenza Type B (PCR) (units unknown) (unknown) (unknown) (no date) (unknown) (unknown) Insulin Human Lispro 0 unit 07/24/22 16:45 07/24/22 17:08 (units unknown) (unknown) (unknown) (no date) (unknown) (unknown) Insulin Lispro 100 Unit/Ml 3ml Vial SUBCUT 3 unit (units unknown) (unknown) (unknown) (no date) (unknown) (unknown) [place] [id number] (units unknown) (unknown) (unknown) (no date) (unknown) (unknown) Laboratory Results - last 24 hr (units unknown) (unknown) (unknown) (no date) (unknown) (unknown) Labs (units unknown) (unknown) (unknown) (no date) (unknown) (unknown) Labs: (units unknown) (unknown) (unknown) (no date) (unknown) (unknown) Lactate 2.2 H 2.2 H (units unknown) (unknown) (unknown) (no date) (unknown) (unknown) Lactate (units unknown) (unknown) (unknown) (no date) (unknown) (unknown) Lipase 43 (units unknown) (unknown) (unknown) (no date) (unknown) (unknown) Lipase (units unknown) (unknown) (unknown) (no date) (unknown) (unknown) Lymph # (Auto) 1000 L (units unknown) (unknown) (unknown) (no date) (unknown) (unknown) Lymph # (Auto) (units unknown) (unknown) (unknown) (no date) (unknown) (unknown) Lymph % (Auto) 5.0 L (units unknown) (unknown) (unknown) (no date) (unknown) (unknown) Lymph % (Auto) (units unknown) (unknown) (unknown) (no date) (unknown) (unknown) M. pneumoniae (PCR) Not detected (units unknown) (unknown) (unknown) (no date) (unknown) (unknown) M. pneumoniae (PCR) (units unknown) (unknown) (unknown) (no date) (unknown) (unknown) MCH 30.9 (units unknown) (unknown) (unknown) (no date) (unknown) (unknown) MCH (units unknown) (unknown) (unknown) (no date) (unknown) (unknown) MCHC 32.6 (units unknown) (unknown) (unknown) (no date) (unknown) (unknown) MCHC (units unknown) (unknown) (unknown) (no date) (unknown) (unknown) MCV 94.8 (units unknown) (unknown) (unknown) (no date) (unknown) (unknown) MCV (units unknown) (unknown) (unknown) (no date) (unknown) (unknown) Medical History (units unknown) (unknown) (unknown) (no date) (unknown) (unknown) Medications: (units unknown) (unknown) (unknown) (no date) (unknown) (unknown) Methylprednisolone 125 Mg/2 Ml Vial IV Not Given (units unknown) (unknown) (unknown) (no date) (unknown) (unknown) Methylprednisolone 8 0 mg 07/24/22 13:53 07/24/22 14:47 (units unknown) (unknown) (unknown) (no date) (unknown) (unknown) [place] # (Auto) 1400 H (units unknown) (unknown) (unknown) (no date) (unknown) (unknown) [place] # (Auto) (units unknown) (unknown) (unknown) (no date) (unknown) (unknown) [place] % (Auto) 7.0 (units unknown) (unknown) (unknown) (no date) (unknown) (unknown) [place] % (Auto) (units unknown) (unknown) (unknown) (no date) (unknown) (unknown) NPO while on bipap (units unknown) (unknown) (unknown) (no date) (unknown) (unknown) NT-Pro-B Natriuret Pep 2860 H (units unknown) (unknown) (unknown) (no date) (unknown) (unknown) NT-Pro-B Natriuret Pep (units unknown) (unknown) (unknown) (no date) (unknown) (unknown) Narrative (units unknown) (unknown) (unknown) (no date) (unknown) (unknown) Narrative: (units unknown) (unknown) (unknown) (no date) (unknown) (unknown) Neut # (Auto) 52125 H (units unknown) (unknown) (unknown) (no date) (unknown) (unknown) Neut # (Auto) (units unknown) (unknown) (unknown) (no date) (unknown) (unknown) Neut % (Auto) 87.9 H (units unknown) (unknown) (unknown) (no date) (unknown) (unknown) Neut % (Auto) (units unknown) (unknown) (unknown) (no date) (unknown) (unknown) Objective (units unknown) (unknown) (unknown) (no date) (unknown) (unknown) Other participants/roles: Dr. Greco, RN (units unknown) (unknown) (unknown) (no date) (unknown) (unknown) Oxygen Delivery Method BiPAP High Flow Nasal (units unknown) (unknown) (unknown) (no date) (unknown) (unknown) Oxygen Delivery Method High Flow Nasal Cannula (units unknown) (unknown) (unknown) (no date) (unknown) (unknown) Oxygen Delivery Method Nasal Cannula (units unknown) (unknown) (unknown) (no date) (unknown) (unknown) Oxygen Delivery Method Room Air Nasal Cannula (units unknown) (unknown) (unknown) (no date) (unknown) (unknown) Oxygen Delivery Method (units unknown) (unknown) (unknown) (no date) (unknown) (unknown) Oxygen Flow Rate 4 (units unknown) (unknown) (unknown) (no date) (unknown) (unknown) Oxygen Flow Rate 5 (units unknown) (unknown) (unknown) (no date) (unknown) (unknown) Oxygen Flow Rate (units unknown) (unknown) (unknown) (no date) (unknown) (unknown) PFSH (units unknown) (unknown) (unknown) (no date) (unknown) (unknown) Parainfluenza 1 (PCR ) Not detected (units unknown) (unknown) (unknown) (no date) (unknown) (unknown) Parainfluenza 1 (PCR) (units unknown) (unknown) (unknown) (no date) (unknown) (unknown) Parainfluenza 2 (PCR ) Not detected (units unknown) (unknown) (unknown) (no date) (unknown) (unknown) Parainfluenza 2 (PCR) (units unknown) (unknown) (unknown) (no date) (unknown) (unknown) Parainfluenza 3 (PCR ) Not detected (units unknown) (unknown) (unknown) (no date) (unknown) (unknown) Parainfluenza 3 (PCR) (units unknown) (unknown) (unknown) (no date) (unknown) (unknown) Parainfluenza 4 (PCR ) Not detected (units unknown) (unknown) (unknown) (no date) (unknown) (unknown) Parainfluenza 4 (PCR) (units unknown) (unknown) (unknown) (no date) (unknown) (unknown) Patient Location: ICU (units unknown) (unknown) (unknown) (no date) (unknown) (unknown) Patient: Ester Benavides MR#: [id number] (units unknown) (unknown) (unknown) (no date) (unknown) (unknown) Plt Count 320 (units unknown) (unknown) (unknown) (no date) (unknown) (unknown) Plt Count (units unknown) (unknown) (unknown) (no date) (unknown) (unknown) Potassium 4.1 (units unknown) (unknown) (unknown) (no date) (unknown) (unknown) Potassium (units unknown) (unknown) (unknown) (no date) (unknown) (unknown) Procalcitonin 0.06 (units unknown) (unknown) (unknown) (no date) (unknown) (unknown) Procalcitonin (units unknown) (unknown) (unknown) (no date) (unknown) (unknown) Protocol (units unknown) (unknown) (unknown) (no date) (unknown) (unknown) Provider location (State): [place] (units unknown) (unknown) (unknown) (no date) (unknown) (unknown) Provider: Myke Medeiros (units unknown) (unknown) (unknown) (no date) (unknown) (unknown) Pulse Oximetry 78 L 89 L (units unknown) (unknown) (unknown) (no date) (unknown) (unknown) Pulse Oximetry 88 L 86 L (units unknown) (unknown) (unknown) (no date) (unknown) (unknown) Pulse Oximetry 89 L 90 L (units unknown) (unknown) (unknown) (no date) (unknown) (unknown) Pulse Oximetry 90 L 93 (units unknown) (unknown) (unknown) (no date) (unknown) (unknown) Pulse Oximetry 90 L (units unknown) (unknown) (unknown) (no date) (unknown) (unknown) Pulse Oximetry 91 89 L (units unknown) (unknown) (unknown) (no date) (unknown) (unknown) Pulse Rate 30 L 59 L (units unknown) (unknown) (unknown) (no date) (unknown) (unknown) Pulse Rate 60 60 (units unknown) (unknown) (unknown) (no date) (unknown) (unknown) Pulse Rate 60 66 (units unknown) (unknown) (unknown) (no date) (unknown) (unknown) Pulse Rate 61 61 (units unknown) (unknown) (unknown) (no date) (unknown) (unknown) Pulse Rate 71 (units unknown) (unknown) (unknown) (no date) (unknown) (unknown) Pulse Rate 73 89 73 (units unknown) (unknown) (unknown) (no date) (unknown) (unknown) Q12H RMOAN (units unknown) (unknown) (unknown) (no date) (unknown) (unknown) RBC 5.11 (units unknown) (unknown) (unknown) (no date) (unknown) (unknown) RBC (units unknown) (unknown) (unknown) (no date) (unknown) (unknown) RDW 14.0 (units unknown) (unknown) (unknown) (no date) (unknown) (unknown) RDW (units unknown) (unknown) (unknown) (no date) (unknown) (unknown) RSV (PCR) Not detected (units unknown) (unknown) (unknown) (no date) (unknown) (unknown) RSV (PCR) (units unknown) (unknown) (unknown) (no date) (unknown) (unknown) [id number] ROMAN Administration (units unknown) (unknown) (unknown) (no date) (unknown) (unknown) Respiratory Rate 24 30 H (units unknown) (unknown) (unknown) (no date) (unknown) (unknown) Respiratory Rate 33 H 30 H (units unknown) (unknown) (unknown) (no date) (unknown) (unknown) Respiratory Rate 38 H (units unknown) (unknown) (unknown) (no date) (unknown) (unknown) Respiratory Rate (units unknown) (unknown) (unknown) (no date) (unknown) (unknown) Review of Systems (units unknown) (unknown) (unknown) (no date) (unknown) (unknown) SARS-CoV-2 (PCR) Not detected (units unknown) (unknown) (unknown) (no date) (unknown) (unknown) SARS-CoV-2 (PCR) (units unknown) (unknown) (unknown) (no date) (unknown) (unknown) SaO2/FiO2 Ratio 247 (units unknown) (unknown) (unknown) (no date) (unknown) (unknown) Signed By:<Electronically signed by Myke Medeiros> (units unknown) (unknown) (unknown) (no date) (unknown) (unknown) Smoking Status: Current every day smoker (units unknown) (unknown) (unknown) (no date) (unknown) (unknown) Social History (units unknown) (unknown) (unknown) (no date) (unknown) (unknown) Sodium 136 L (units unknown) (unknown) (unknown) (no date) (unknown) (unknown) Sodium (units unknown) (unknown) (unknown) (no date) (unknown) (unknown) Status: Acute (units unknown) (unknown) (unknown) (no date) (unknown) (unknown) TTE (units unknown) (unknown) (unknown) (no date) (unknown) (unknown) Teleintensivist Consult Note (units unknown) (unknown) (unknown) (no date) (unknown) (unknown) Temperature 97.5 F L (units unknown) (unknown) (unknown) (no date) (unknown) (unknown) Temperature 98.1 F (units unknown) (unknown) (unknown) (no date) (unknown) (unknown) Temperature (units unknown) (unknown) (unknown) (no date) (unknown) (unknown) Time Spent With Patient (units unknown) (unknown) (unknown) (no date) (unknown) (unknown) Total Bilirubin 0.7 (units unknown) (unknown) (unknown) (no date) (unknown) (unknown) Total Bilirubin (units unknown) (unknown) (unknown) (no date) (unknown) (unknown) Total Creatine Kinas e 36 (units unknown) (unknown) (unknown) (no date) (unknown) (unknown) Total Creatine Kinase (units unknown) (unknown) (unknown) (no date) (unknown) (unknown) Total Protein 7.0 (units unknown) (unknown) (unknown) (no date) (unknown) (unknown) Total Protein (units unknown) (unknown) (unknown) (no date) (unknown) (unknown) Trade Name Freq PRN Reason Stop Dose Admin (units unknown) (unknown) (unknown) (no date) (unknown) (unknown) Troponin I < 0.012 (units unknown) (unknown) (unknown) (no date) (unknown) (unknown) Troponin I (units unknown) (unknown) (unknown) (no date) (unknown) (unknown) Visit Medications (administered) (units unknown) (unknown) (unknown) (no date) (unknown) (unknown) Vital Signs (units unknown) (unknown) (unknown) (no date) (unknown) (unknown) WBC 20.6 H (units unknown) (unknown) (unknown) (no date) (unknown) (unknown) WBC (units unknown) (unknown) (unknown) (no date) (unknown) (unknown) [Embedded Image Not Available] (units unknown) (unknown) (unknown) (no date) (unknown) (unknown) additionaly her left hemidiaphragm is elevated - however the film is very (units unknown) (unknown) (unknown) (no date) (unknown) (unknown) 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 XR chest with pulmonary vascular congestion, (units unknown) (unknown) (unknown) (no date) (unknown) (unknown) class 3 obesity, admitted tohe ICU for furhter management of acute hypoxemic (units unknown) (unknown) (unknown) (no date) (unknown) (unknown) communication: Camer a activated (units unknown) (unknown) (unknown) (no date) (unknown) (unknown) consider CT chest when imrpoved (units unknown) (unknown) (unknown) (no date) (unknown) (unknown) continue bipap for now (units unknown) (unknown) (unknown) (no date) (unknown) (unknown) duonebs (units unknown) (unknown) (unknown) (no date) (unknown) (unknown) dvt ppx (units unknown) (unknown) (unknown) (no date) (unknown) (unknown) empric abx - though I do think her eleavted wbc is also due to steroids from (units unknown) (unknown) (unknown) (no date) (unknown) (unknown) f/u melvin cx (units unknown) (unknown) (unknown) (no date) (unknown) (unknown) goal negative balance (units unknown) (unknown) (unknown) (no date) (unknown) (unknown) her requirements hav e increased lately. phenotype of her COPD is unknown due ot (units unknown) (unknown) (unknown) (no date) (unknown) (unknown) if her respiratory function worsens oer GCS drops < 8, she will nee to be (units unknown) (unknown) (unknown) (no date) (unknown) (unknown) intubated (units unknown) (unknown) (unknown) (no date) (unknown) (unknown) lack of CT imaging. On ym eval this afternoon ,she was somnolescent but (units unknown) (unknown) (unknown) (no date) (unknown) (unknown) lives independently: Yes (units unknown) (unknown) (unknown) (no date) (unknown) (unknown) map at goal (units unknown) (unknown) (unknown) (no date) (unknown) (unknown) metapneumovirus. Pt was recently hospitalized and signed out AMA, however due to (units unknown) (unknown) (unknown) (no date) (unknown) (unknown) pacemaker/AICD placement, diabetes mellitus type 2 on oral antidiabetic agents, (units unknown) (unknown) (unknown) (no date) (unknown) (unknown) palliative care consult (units unknown) (unknown) (unknown) (no date) (unknown) (unknown) previous hospitalizaiton (units unknown) (unknown) (unknown) (no date) (unknown) (unknown) repeat XR chest (units unknown) (unknown) (unknown) (no date) (unknown) (unknown) resp fialure which likely multifactorial from AECOPD, CHF exacerbation + human (units unknown) (unknown) (unknown) (no date) (unknown) (unknown) rotated. (units unknown) (unknown) (unknown) (no date) (unknown) (unknown) steroid taper (units unknown) (unknown) (unknown) (no date) (unknown) (unknown) surrogate for full exam is primary team (units unknown) (unknown) (unknown) (no date) (unknown) (unknown) synchrnous on bipap with adequate TV. ABG with hypercapnea which likely her (units unknown) (unknown) (unknown) (no date) (unknown) (unknown) today; this time is exclusive of procedural time. (units unknown) (unknown) (unknown) (no date) (unknown) (unknown) trend ABG (units unknown) (unknown) (unknown) (no date) (unknown) (unknown) trend bmp and montor UO (units unknown) (unknown) (unknown) (no date) (unknown) (unknown) unable to obtain (units unknown) (unknown) (unknown) (no date) (unknown) (unknown) worsneign hypoxemia. She has end stage COPD at baseline and in on 2-3l NC, but (units unknown) (unknown) (unknown) (no date) (unknown) (unknown) worsneing SOB she [facility], and required bipapa due (units unknown) (unknown) Result panel 650 (unknown) (no date) (unknown) (unknown) Not Detected (units unknown) (unknown) Result panel 651 (unknown) (no date) (unknown) (unknown) (no value) (units unknown) (unknown) (unknown) (no date) (unknown) (unknown) 07/24/222038 (units unknown) (unknown) (unknown) (no date) (unknown) (unknown) [id number] (units unknown) (unknown) (unknown) (no date) (unknown) (unknown) :: (units unknown) (unknown) (unknown) (no date) (unknown) (unknown) Age/Sex: 57 / F (units unknown) (unknown) (unknown) (no date) (unknown) (unknown) : 1965 Acct:[id number] (units unknown) (unknown) (unknown) (no date) (unknown) (unknown) Date of Service: 07/24/22 (units unknown) (unknown) (unknown) (no date) (unknown) (unknown) ICU Multidisciplinar y Rounds (units unknown) (unknown) (unknown) (no date) (unknown) (unknown) [address] [address] (units unknown) (unknown) (unknown) (no date) (unknown) (unknown) Patient: Ester Benavides MR#: [id number] (units unknown) (unknown) (unknown) (no date) (unknown) (unknown) Provider: Myke Medeiros (units unknown) (unknown) (unknown) (no date) (unknown) (unknown) Signed By:<Electronically signed by Myke Medeiros> (units unknown) (unknown) (unknown) (no date) (unknown) (unknown) This patient was see n via real time interactive two-way audiovisual (units unknown) (unknown) (unknown) (no date) (unknown) (unknown) is not hypoxemic. will aim for a net negative balance, and contineu bipap (units unknown) (unknown) (unknown) (no date) (unknown) (unknown) overnight, cont nebs prn abd steroid taper. (units unknown) (unknown) (unknown) (no date) (unknown) (unknown) telecommunication. Latishaeitn seems to be improving, currently off bipap on NC and (units unknown) (unknown) Result panel 652 (unknown) (no date) (unknown) (unknown) 502 mg/dl (unknown) (unknown) (no date) (unknown) (unknown) 502 mg/dl (unknown) Result panel 653 (unknown) (no date) (unknown) (unknown) 0 /ul (unknown) (unknown) (no date) (unknown) (unknown) 0 /ul (unknown) (unknown) (no date) (unknown) (unknown) 0.0 % (unknown) (unknown) (no date) (unknown) (unknown) 0.1 % (unknown) (unknown) (no date) (unknown) (unknown) 13.9 % (unknown) (unknown) (no date) (unknown) (unknown) 15.2 g/dl (unknown) (unknown) (no date) (unknown) (unknown) [address] /ul (unknown) (unknown) (no date) (unknown) (unknown) 17.1 x10 3/ul (unknown) (unknown) (no date) (unknown) (unknown) 264 x10 3/ul (unknown) (unknown) (no date) (unknown) (unknown) 3.7 % (unknown) (unknown) (no date) (unknown) (unknown) 30.9 pg (unknown) (unknown) (no date) (unknown) (unknown) 32.7 % (unknown) (unknown) (no date) (unknown) (unknown) 4.6 % (unknown) (unknown) (no date) (unknown) (unknown) 4.92 x10 6/ul (unknown) (unknown) (no date) (unknown) (unknown) 46.5 % (unknown) (unknown) (no date) (unknown) (unknown) 600 /ul (unknown) (unknown) (no date) (unknown) (unknown) 800 /ul (unknown) (unknown) (no date) (unknown) (unknown) 91.6 % (unknown) (unknown) (no date) (unknown) (unknown) 94.5 fl (unknown) Result panel 654 (unknown) (no date) (unknown) (unknown) 1.27 mg/dl (unknown) (unknown) (no date) (unknown) (unknown) 137 mmol/l (unknown) (unknown) (no date) (unknown) (unknown) 2.3 mg/dl (unknown) (unknown) (no date) (unknown) (unknown) 290 mg/dl (unknown) (unknown) (no date) (unknown) (unknown) 290 mg/dl (unknown) (unknown) (no date) (unknown) (unknown) 33.1 (units unknown) (unknown) (unknown) (no date) (unknown) (unknown) 39 mmol/l (unknown) (unknown) (no date) (unknown) (unknown) 4.2 mmol/l (unknown) (unknown) (no date) (unknown) (unknown) 42 mg/dl (unknown) (unknown) (no date) (unknown) (unknown) 49 ml/min (unknown) (unknown) (no date) (unknown) (unknown) 49 ml/min (unknown) (unknown) (no date) (unknown) (unknown) 8.7 mg/dl (unknown) (unknown) (no date) (unknown) (unknown) 90 mmol/l (unknown) Result panel 655 (unknown) (no date) (unknown) (unknown) (no value) (units unknown) (unknown) (unknown) (no date) (unknown) (unknown) (past 8 hours): (units unknown) (unknown) (unknown) (no date) (unknown) (unknown) 01:01 07/25/22 (units unknown) (unknown) (unknown) (no date) (unknown) (unknown) 01:25 (units unknown) (unknown) (unknown) (no date) (unknown) (unknown) 01:30 07/25/22 (units unknown) (unknown) (unknown) (no date) (unknown) (unknown) 01:38 12:06 12:06 (units unknown) (unknown) (unknown) (no date) (unknown) (unknown) 02:01 07/25/22 (units unknown) (unknown) (unknown) (no date) (unknown) (unknown) 02:01 (units unknown) (unknown) (unknown) (no date) (unknown) (unknown) 02:13 07/25/22 (units unknown) (unknown) (unknown) (no date) (unknown) (unknown) 02:31 07/25/22 (units unknown) (unknown) (unknown) (no date) (unknown) (unknown) 02:31 (units unknown) (unknown) (unknown) (no date) (unknown) (unknown) 07/24/22 07/24/22 07/24/22 (units unknown) (unknown) (unknown) (no date) (unknown) (unknown) 07/24/22 07/24/22 07/25/22 (units unknown) (unknown) (unknown) (no date) (unknown) (unknown) 07/25/22 04:39 (units unknown) (unknown) (unknown) (no date) (unknown) (unknown) 03/13/23 (units unknown) (unknown) (unknown) (no date) (unknown) (unknown) 03:00 07/25/22 (units unknown) (unknown) (unknown) (no date) (unknown) (unknown) 03:00 (units unknown) (unknown) (unknown) (no date) (unknown) (unknown) 03:05 07/25/22 (units unknown) (unknown) (unknown) (no date) (unknown) (unknown) 03:30 07/25/22 (units unknown) (unknown) (unknown) (no date) (unknown) (unknown) 03:30 (units unknown) (unknown) (unknown) (no date) (unknown) (unknown) 04:00 07/25/22 (units unknown) (unknown) (unknown) (no date) (unknown) (unknown) 04:00 (units unknown) (unknown) (unknown) (no date) (unknown) (unknown) 04:28 07/25/22 (units unknown) (unknown) (unknown) (no date) (unknown) (unknown) 04:30 07/25/22 (units unknown) (unknown) (unknown) (no date) (unknown) (unknown) 04:30 (units unknown) (unknown) (unknown) (no date) (unknown) (unknown) 04:39 (units unknown) (unknown) (unknown) (no date) (unknown) (unknown) 05:01 07/25/22 (units unknown) (unknown) (unknown) (no date) (unknown) (unknown) 05:03 (units unknown) (unknown) (unknown) (no date) (unknown) (unknown) 05:31 07/25/22 (units unknown) (unknown) (unknown) (no date) (unknown) (unknown) 06:01 07/25/22 (units unknown) (unknown) (unknown) (no date) (unknown) (unknown) 06:01 (units unknown) (unknown) (unknown) (no date) (unknown) (unknown) 06:31 07/25/22 (units unknown) (unknown) (unknown) (no date) (unknown) (unknown) 06:31 (units unknown) (unknown) (unknown) (no date) (unknown) (unknown) 06:54 07/25/22 (units unknown) (unknown) (unknown) (no date) (unknown) (unknown) 07:00 07/25/22 (units unknown) (unknown) (unknown) (no date) (unknown) (unknown) 07:00 (units unknown) (unknown) (unknown) (no date) (unknown) (unknown) 07:30 07/25/22 (units unknown) (unknown) (unknown) (no date) (unknown) (unknown) 07:31 07/25/22 (units unknown) (unknown) (unknown) (no date) (unknown) (unknown) 07:31 (units unknown) (unknown) (unknown) (no date) (unknown) (unknown) 08:00 07/25/22 (units unknown) (unknown) (unknown) (no date) (unknown) (unknown) 08:01 07/25/22 (units unknown) (unknown) (unknown) (no date) (unknown) (unknown) 08:01 (units unknown) (unknown) (unknown) (no date) (unknown) (unknown) 08:30 07/25/22 (units unknown) (unknown) (unknown) (no date) (unknown) (unknown) 08:31 07/25/22 (units unknown) (unknown) (unknown) (no date) (unknown) (unknown) 08:31 (units unknown) (unknown) (unknown) (no date) (unknown) (unknown) 1. Acute on chronic hypoxic and hypercarbic respiratory failure (units unknown) (unknown) (unknown) (no date) (unknown) (unknown) 10. Reported CKD stage 3 (units unknown) (unknown) (unknown) (no date) (unknown) (unknown) 11. Chronic pain syndrome (units unknown) (unknown) (unknown) (no date) (unknown) (unknown) 12. Hypertension (units unknown) (unknown) (unknown) (no date) (unknown) (unknown) 12:06 13:06 13:30 (units unknown) (unknown) (unknown) (no date) (unknown) (unknown) 13. Hyperlipidemia (units unknown) (unknown) (unknown) (no date) (unknown) (unknown) 17:25 21:32 04:39 (units unknown) (unknown) (unknown) (no date) (unknown) (unknown) [id number] (units unknown) (unknown) (unknown) (no date) (unknown) (unknown) 2. Acute on chronic systolic congestive heart failure exacerbation (units unknown) (unknown) (unknown) (no date) (unknown) (unknown) 3. COPD exacerbation , likely secondary to metapneumovirus infection (units unknown) (unknown) (unknown) (no date) (unknown) (unknown) 4. Metapneumovirus infection (units unknown) (unknown) (unknown) (no date) (unknown) (unknown) 5. Coronary artery disease with prior DC (units unknown) (unknown) (unknown) (no date) (unknown) (unknown) 6. History of cardia c arrest, status post pacemaker/AICD placement (units unknown) (unknown) (unknown) (no date) (unknown) (unknown) 7. Atrial fibrillation on chronic anticoagulation with Eliquis (units unknown) (unknown) (unknown) (no date) (unknown) (unknown) 8. Diabetes mellitus type 2 (units unknown) (unknown) (unknown) (no date) (unknown) (unknown) 9. Class 3 obesity with BMI of 42.2 (units unknown) (unknown) (unknown) (no date) (unknown) (unknown) ABD: Firm, obese, nontender, nondistended, bowel sounds present in all 4 (units unknown) (unknown) (unknown) (no date) (unknown) (unknown) ABG Base Excess 24.0 H (units unknown) (unknown) (unknown) (no date) (unknown) (unknown) ABG Base Excess (units unknown) (unknown) (unknown) (no date) (unknown) (unknown) ABG HCO3 48 H (units unknown) (unknown) (unknown) (no date) (unknown) (unknown) ABG HCO3 (units unknown) (unknown) (unknown) (no date) (unknown) (unknown) ABG O2 Saturation 84 L* (units unknown) (unknown) (unknown) (no date) (unknown) (unknown) ABG O2 Saturation (units unknown) (unknown) (unknown) (no date) (unknown) (unknown) ABG Total CO2 50 H (units unknown) (unknown) (unknown) (no date) (unknown) (unknown) ABG Total CO2 (units unknown) (unknown) (unknown) (no date) (unknown) (unknown) ABG pCO2 69.4 H* (units unknown) (unknown) (unknown) (no date) (unknown) (unknown) ABG pCO2 (units unknown) (unknown) (unknown) (no date) (unknown) (unknown) ABG pH 7.45 (units unknown) (unknown) (unknown) (no date) (unknown) (unknown) ABG pH (units unknown) (unknown) (unknown) (no date) (unknown) (unknown) ABG pO2 50 L (units unknown) (unknown) (unknown) (no date) (unknown) (unknown) ABG pO2 (units unknown) (unknown) (unknown) (no date) (unknown) (unknown) ALT 74 H (units unknown) (unknown) (unknown) (no date) (unknown) (unknown) ALT (units unknown) (unknown) (unknown) (no date) (unknown) (unknown) AST 31 (units unknown) (unknown) (unknown) (no date) (unknown) (unknown) AST (units unknown) (unknown) (unknown) (no date) (unknown) (unknown) Adenovirus (PCR) Not detected (units unknown) (unknown) (unknown) (no date) (unknown) (unknown) Adenovirus (PCR) (units unknown) (unknown) (unknown) (no date) (unknown) (unknown) Admit to ICU with Georgette rosen I personally spoke with Dr. Medeiros. (units unknown) (unknown) (unknown) (no date) (unknown) (unknown) Age/Sex: 57 / F (units unknown) (unknown) (unknown) (no date) (unknown) (unknown) Albumin 3.8 (units unknown) (unknown) (unknown) (no date) (unknown) (unknown) Albumin (units unknown) (unknown) (unknown) (no date) (unknown) (unknown) Albumin/Globulin Ratio 1.2 (units unknown) (unknown) (unknown) (no date) (unknown) (unknown) Albumin/Globulin Ratio (units unknown) (unknown) (unknown) (no date) (unknown) (unknown) Alkaline Phosphatase 83 (units unknown) (unknown) (unknown) (no date) (unknown) (unknown) Alkaline Phosphatase (units unknown) (unknown) (unknown) (no date) (unknown) (unknown) Appears to be on Eliquis chronically. Await medication reconciliation (units unknown) (unknown) (unknown) (no date) (unknown) (unknown) As noted, outside documentation shows history of CKD 3. However here her GFR (units unknown) (unknown) (unknown) (no date) (unknown) (unknown) Assessment + Plan narrative: (units unknown) (unknown) (unknown) (no date) (unknown) (unknown) Assessment + Plan (units unknown) (unknown) (unknown) (no date) (unknown) (unknown) Await medication reconciliation to confirm meds. (units unknown) (unknown) (unknown) (no date) (unknown) (unknown) B. pertussis DNA (PCR) Not detected (units unknown) (unknown) (unknown) (no date) (unknown) (unknown) B. pertussis DNA (PCR) (units unknown) (unknown) (unknown) (no date) (unknown) (unknown) B.parapertussis DNA PCR Not detected (units unknown) (unknown) (unknown) (no date) (unknown) (unknown) B.parapertussis DNA PCR (units unknown) (unknown) (unknown) (no date) (unknown) (unknown) BUN 41 H (units unknown) (unknown) (unknown) (no date) (unknown) (unknown) BUN 42 H (units unknown) (unknown) (unknown) (no date) (unknown) (unknown) BUN (units unknown) (unknown) (unknown) (no date) (unknown) (unknown) BUN/Creatinine Ratio 33.1 H (units unknown) (unknown) (unknown) (no date) (unknown) (unknown) BUN/Creatinine Ratio 51.3 H (units unknown) (unknown) (unknown) (no date) (unknown) (unknown) BUN/Creatinine Ratio (units unknown) (unknown) (unknown) (no date) (unknown) (unknown) Baso # (Auto) 0 (units unknown) (unknown) (unknown) (no date) (unknown) (unknown) Baso # (Auto) (units unknown) (unknown) (unknown) (no date) (unknown) (unknown) Baso % (Auto) 0.1 (units unknown) (unknown) (unknown) (no date) (unknown) (unknown) Baso % (Auto) (units unknown) (unknown) (unknown) (no date) (unknown) (unknown) Blood Pressure 103/62 (units unknown) (unknown) (unknown) (no date) (unknown) (unknown) Blood Pressure 110/5 4 L (units unknown) (unknown) (unknown) (no date) (unknown) (unknown) Blood Pressure 120/5 7 L (units unknown) (unknown) (unknown) (no date) (unknown) (unknown) Blood Pressure 121/7 7 125/60 (units unknown) (unknown) (unknown) (no date) (unknown) (unknown) Blood Pressure 122/5 7 L (units unknown) (unknown) (unknown) (no date) (unknown) (unknown) Blood Pressure 123/5 6 L (units unknown) (unknown) (unknown) (no date) (unknown) (unknown) Blood Pressure 128/5 6 L (units unknown) (unknown) (unknown) (no date) (unknown) (unknown) Blood Pressure 132/5 8 L (units unknown) (unknown) (unknown) (no date) (unknown) (unknown) Blood Pressure 132/6 0 133/60 (units unknown) (unknown) (unknown) (no date) (unknown) (unknown) Blood Pressure 135/62 (units unknown) (unknown) (unknown) (no date) (unknown) (unknown) Blood Pressure 136/6 3 145/67 H (units unknown) (unknown) (unknown) (no date) (unknown) (unknown) Blood Pressure 142/7 2 H (units unknown) (unknown) (unknown) (no date) (unknown) (unknown) Blood Pressure 151/6 6 H (units unknown) (unknown) (unknown) (no date) (unknown) (unknown) Blood Pressure (units unknown) (unknown) (unknown) (no date) (unknown) (unknown) Blood pressures are normotensive here. Await medication reconciliation to (units unknown) (unknown) (unknown) (no date) (unknown) (unknown) CHEST: Respiratory excursions symmetric, clear to auscultation bilaterally (units unknown) (unknown) (unknown) (no date) (unknown) (unknown) CK-MB (CK-2) Rel Index TNP (units unknown) (unknown) (unknown) (no date) (unknown) (unknown) CK-MB (CK-2) Rel Index (units unknown) (unknown) (unknown) (no date) (unknown) (unknown) CK-MB (CK-2) TNP (units unknown) (unknown) (unknown) (no date) (unknown) (unknown) CK-MB (CK-2) (units unknown) (unknown) (unknown) (no date) (unknown) (unknown) COPD (chronic obstructive pulmonary disease) (units unknown) (unknown) (unknown) (no date) (unknown) (unknown) CV: Regular rate and rhythm, no murmurs, rubs, gallops, PMI can not be palpated (units unknown) (unknown) (unknown) (no date) (unknown) (unknown) Calcium 8.7 (units unknown) (unknown) (unknown) (no date) (unknown) (unknown) Calcium 9.5 (units unknown) (unknown) (unknown) (no date) (unknown) (unknown) Calcium (units unknown) (unknown) (unknown) (no date) (unknown) (unknown) Cannula (units unknown) (unknown) (unknown) (no date) (unknown) (unknown) Carbon Dioxide 38 H (units unknown) (unknown) (unknown) (no date) (unknown) (unknown) Carbon Dioxide 39 H (units unknown) (unknown) (unknown) (no date) (unknown) (unknown) Carbon Dioxide (units unknown) (unknown) (unknown) (no date) (unknown) (unknown) Chlamy pneumoniae PC R Not detected (units unknown) (unknown) (unknown) (no date) (unknown) (unknown) Chlamy pneumoniae PCR (units unknown) (unknown) (unknown) (no date) (unknown) (unknown) Chloride 90 L (units unknown) (unknown) (unknown) (no date) (unknown) (unknown) Chloride (units unknown) (unknown) (unknown) (no date) (unknown) (unknown) Code status (units unknown) (unknown) (unknown) (no date) (unknown) (unknown) Congestive heart failure noted on chest x-ray as well as on previous imaging (units unknown) (unknown) (unknown) (no date) (unknown) (unknown) Continue diuresis as noted above with IV Lasix and Diamox. She does have (units unknown) (unknown) (unknown) (no date) (unknown) (unknown) Continue her outpatient respiratory medications. As noted, continue IV Solu (units unknown) (unknown) (unknown) (no date) (unknown) (unknown) Coronavirus 229E (PCR) Not detected (units unknown) (unknown) (unknown) (no date) (unknown) (unknown) Coronavirus 229E (PCR) (units unknown) (unknown) (unknown) (no date) (unknown) (unknown) Coronavirus HKU1 (PCR) Not detected (units unknown) (unknown) (unknown) (no date) (unknown) (unknown) Coronavirus HKU1 (PCR) (units unknown) (unknown) (unknown) (no date) (unknown) (unknown) Coronavirus NL63 (PCR) Not detected (units unknown) (unknown) (unknown) (no date) (unknown) (unknown) Coronavirus NL63 (PCR) (units unknown) (unknown) (unknown) (no date) (unknown) (unknown) Coronavirus OC43 (PCR) Not detected (units unknown) (unknown) (unknown) (no date) (unknown) (unknown) Coronavirus OC43 (PCR) (units unknown) (unknown) (unknown) (no date) (unknown) (unknown) Creatinine 0.80 (units unknown) (unknown) (unknown) (no date) (unknown) (unknown) Creatinine 1.27 H (units unknown) (unknown) (unknown) (no date) (unknown) (unknown) Creatinine (units unknown) (unknown) (unknown) (no date) (unknown) (unknown) Critical Care time: (units unknown) (unknown) (unknown) (no date) (unknown) (unknown) : 1965 Acct:[id number] (units unknown) (unknown) (unknown) (no date) (unknown) (unknown) Date of Service: 07/24/22 (units unknown) (unknown) (unknown) (no date) (unknown) (unknown) Disposition (units unknown) (unknown) (unknown) (no date) (unknown) (unknown) EXTR: Warm, well perfused, no clubbing/cyanosis/whit ma (units unknown) (unknown) (unknown) (no date) (unknown) (unknown) Entero/Rhino (PCR) Not detected (units unknown) (unknown) (unknown) (no date) (unknown) (unknown) Entero/Rhino (PCR) (units unknown) (unknown) (unknown) (no date) (unknown) (unknown) Eos # (Auto) 0 (units unknown) (unknown) (unknown) (no date) (unknown) (unknown) Eos # (Auto) (units unknown) (unknown) (unknown) (no date) (unknown) (unknown) Eos % (Auto) 0.0 L (units unknown) (unknown) (unknown) (no date) (unknown) (unknown) Eos % (Auto) (units unknown) (unknown) (unknown) (no date) (unknown) (unknown) Estimated GFR > 60 (units unknown) (unknown) (unknown) (no date) (unknown) (unknown) Estimated GFR 49 L (units unknown) (unknown) (unknown) (no date) (unknown) (unknown) Estimated GFR (units unknown) (unknown) (unknown) (no date) (unknown) (unknown) Exam Narrative: (units unknown) (unknown) (unknown) (no date) (unknown) (unknown) Exam (units unknown) (unknown) (unknown) (no date) (unknown) (unknown) FiO2 40 (units unknown) (unknown) (unknown) (no date) (unknown) (unknown) FiO2 (units unknown) (unknown) (unknown) (no date) (unknown) (unknown) Fraction of Inspired Oxygen 36 (units unknown) (unknown) (unknown) (no date) (unknown) (unknown) Full (units unknown) (unknown) (unknown) (no date) (unknown) (unknown) GEN: Acutely and chronically ill-appearing middle-aged female, drowsy but (units unknown) (unknown) (unknown) (no date) (unknown) (unknown) Globulin 3.2 (units unknown) (unknown) (unknown) (no date) (unknown) (unknown) Globulin (units unknown) (unknown) (unknown) (no date) (unknown) (unknown) Glucose 248 H (units unknown) (unknown) (unknown) (no date) (unknown) (unknown) Glucose 290 H D (units unknown) (unknown) (unknown) (no date) (unknown) (unknown) Glucose 502 H* D (units unknown) (unknown) (unknown) (no date) (unknown) (unknown) Glucose (units unknown) (unknown) (unknown) (no date) (unknown) (unknown) HEENT: Normocephalic , face symmetric, pupils equal round reactive to light, (units unknown) (unknown) (unknown) (no date) (unknown) (unknown) Hct 46.5 H (units unknown) (unknown) (unknown) (no date) (unknown) (unknown) Hct 48.5 H (units unknown) (unknown) (unknown) (no date) (unknown) (unknown) Hct (units unknown) (unknown) (unknown) (no date) (unknown) (unknown) Her obesity puts her at significant risk of morbidity and mortality. Would (units unknown) (unknown) (unknown) (no date) (unknown) (unknown) Hgb 15.2 (units unknown) (unknown) (unknown) (no date) (unknown) (unknown) Hgb 15.8 (units unknown) (unknown) (unknown) (no date) (unknown) (unknown) Hgb (units unknown) (unknown) (unknown) (no date) (unknown) (unknown) Human Metapneumovir PCR Detected H (units unknown) (unknown) (unknown) (no date) (unknown) (unknown) Human Metapneumovir PCR (units unknown) (unknown) (unknown) (no date) (unknown) (unknown) I spent a total of [ ] minutes of critical care time on this patient's care (units unknown) (unknown) (unknown) (no date) (unknown) (unknown) Influenza Type A (PCR) Not detected (units unknown) (unknown) (unknown) (no date) (unknown) (unknown) Influenza Type A (PCR) (units unknown) (unknown) (unknown) (no date) (unknown) (unknown) Influenza Type B (PCR) Not detected (units unknown) (unknown) (unknown) (no date) (unknown) (unknown) Influenza Type B (PCR) (units unknown) (unknown) (unknown) (no date) (unknown) (unknown) [address] [address] (units unknown) (unknown) (unknown) (no date) (unknown) (unknown) Laboratory Results - last 24 hr (units unknown) (unknown) (unknown) (no date) (unknown) (unknown) Labs (units unknown) (unknown) (unknown) (no date) (unknown) (unknown) Labs: (units unknown) (unknown) (unknown) (no date) (unknown) (unknown) Lactate 2.2 H 2.2 H (units unknown) (unknown) (unknown) (no date) (unknown) (unknown) Lactate (units unknown) (unknown) (unknown) (no date) (unknown) (unknown) Lipase 43 (units unknown) (unknown) (unknown) (no date) (unknown) (unknown) Lipase (units unknown) (unknown) (unknown) (no date) (unknown) (unknown) Lymph # (Auto) 1000 L (units unknown) (unknown) (unknown) (no date) (unknown) (unknown) Lymph # (Auto) 600 L (units unknown) (unknown) (unknown) (no date) (unknown) (unknown) Lymph # (Auto) (units unknown) (unknown) (unknown) (no date) (unknown) (unknown) Lymph % (Auto) 3.7 L (units unknown) (unknown) (unknown) (no date) (unknown) (unknown) Lymph % (Auto) 5.0 L (units unknown) (unknown) (unknown) (no date) (unknown) (unknown) Lymph % (Auto) (units unknown) (unknown) (unknown) (no date) (unknown) (unknown) M. pneumoniae (PCR) Not detected (units unknown) (unknown) (unknown) (no date) (unknown) (unknown) M. pneumoniae (PCR) (units unknown) (unknown) (unknown) (no date) (unknown) (unknown) MCH 30.9 (units unknown) (unknown) (unknown) (no date) (unknown) (unknown) MCH (units unknown) (unknown) (unknown) (no date) (unknown) (unknown) MCHC 32.6 (units unknown) (unknown) (unknown) (no date) (unknown) (unknown) MCHC 32.7 (units unknown) (unknown) (unknown) (no date) (unknown) (unknown) MCHC (units unknown) (unknown) (unknown) (no date) (unknown) (unknown) MCV 94.5 (units unknown) (unknown) (unknown) (no date) (unknown) (unknown) MCV 94.8 (units unknown) (unknown) (unknown) (no date) (unknown) (unknown) MCV (units unknown) (unknown) (unknown) (no date) (unknown) (unknown) Magnesium 2.3 (units unknown) (unknown) (unknown) (no date) (unknown) (unknown) Magnesium (units unknown) (unknown) (unknown) (no date) (unknown) (unknown) Medical History (units unknown) (unknown) (unknown) (no date) (unknown) (unknown) Medrol 80 mg q.12. Will start budesonide as well. Duo nebs 4 times daily (units unknown) (unknown) (unknown) (no date) (unknown) (unknown) [place] # (Auto) 1400 H (units unknown) (unknown) (unknown) (no date) (unknown) (unknown) [place] # (Auto) 800 (units unknown) (unknown) (unknown) (no date) (unknown) (unknown) [place] # (Auto) (units unknown) (unknown) (unknown) (no date) (unknown) (unknown) [place] % (Auto) 4.6 (units unknown) (unknown) (unknown) (no date) (unknown) (unknown) [place] % (Auto) 7.0 (units unknown) (unknown) (unknown) (no date) (unknown) (unknown) [place] % (Auto) (units unknown) (unknown) (unknown) (no date) (unknown) (unknown) NECK: Supple, no lymphadenopathy, can not palpate any thyroid nodularity, (units unknown) (unknown) (unknown) (no date) (unknown) (unknown) NEURO: Drowsy, follows simple commands, ears grossly intact (units unknown) (unknown) (unknown) (no date) (unknown) (unknown) NT-Pro-B Natriuret Pep 2860 H (units unknown) (unknown) (unknown) (no date) (unknown) (unknown) NT-Pro-B Natriuret Pep (units unknown) (unknown) (unknown) (no date) (unknown) (unknown) Narrative (units unknown) (unknown) (unknown) (no date) (unknown) (unknown) Nasal Screen MRSA (PCR) Not detected (units unknown) (unknown) (unknown) (no date) (unknown) (unknown) Nasal Screen MRSA (PCR) (units unknown) (unknown) (unknown) (no date) (unknown) (unknown) Neut # (Auto) 77397 H (units unknown) (unknown) (unknown) (no date) (unknown) (unknown) Neut # (Auto) 85048 H (units unknown) (unknown) (unknown) (no date) (unknown) (unknown) Neut # (Auto) (units unknown) (unknown) (unknown) (no date) (unknown) (unknown) Neut % (Auto) 87.9 H (units unknown) (unknown) (unknown) (no date) (unknown) (unknown) Neut % (Auto) 91.6 H (units unknown) (unknown) (unknown) (no date) (unknown) (unknown) Neut % (Auto) (units unknown) (unknown) (unknown) (no date) (unknown) (unknown) No RVR at this time. Regular on exam. Await medication reconciliation to (units unknown) (unknown) (unknown) (no date) (unknown) (unknown) Objective (units unknown) (unknown) (unknown) (no date) (unknown) (unknown) On oral medications only per report. A1c at the outside facility was reported (units unknown) (unknown) (unknown) (no date) (unknown) (unknown) Oxygen Delivery Method High Flow Nasal Cannula (units unknown) (unknown) (unknown) (no date) (unknown) (unknown) Oxygen Delivery Method High Flow Nasal (units unknown) (unknown) (unknown) (no date) (unknown) (unknown) Oxygen Delivery Method (units unknown) (unknown) (unknown) (no date) (unknown) (unknown) Oxygen Flow Rate 4 4 4 (units unknown) (unknown) (unknown) (no date) (unknown) (unknown) Oxygen Flow Rate 4 4 (units unknown) (unknown) (unknown) (no date) (unknown) (unknown) Oxygen Flow Rate 4 (units unknown) (unknown) (unknown) (no date) (unknown) (unknown) Oxygen Flow Rate (units unknown) (unknown) (unknown) (no date) (unknown) (unknown) PFSH (units unknown) (unknown) (unknown) (no date) (unknown) (unknown) PSYCH: Mood, affect, judgment, and insight can not be assessed (units unknown) (unknown) (unknown) (no date) (unknown) (unknown) Parainfluenza 1 (PCR ) Not detected (units unknown) (unknown) (unknown) (no date) (unknown) (unknown) Parainfluenza 1 (PCR) (units unknown) (unknown) (unknown) (no date) (unknown) (unknown) Parainfluenza 2 (PCR ) Not detected (units unknown) (unknown) (unknown) (no date) (unknown) (unknown) Parainfluenza 2 (PCR) (units unknown) (unknown) (unknown) (no date) (unknown) (unknown) Parainfluenza 3 (PCR ) Not detected (units unknown) (unknown) (unknown) (no date) (unknown) (unknown) Parainfluenza 3 (PCR) (units unknown) (unknown) (unknown) (no date) (unknown) (unknown) Parainfluenza 4 (PCR ) Not detected (units unknown) (unknown) (unknown) (no date) (unknown) (unknown) Parainfluenza 4 (PCR) (units unknown) (unknown) (unknown) (no date) (unknown) (unknown) Patient presents after leaving outside hospital Against Medical Advice after a 5 (units unknown) (unknown) (unknown) (no date) (unknown) (unknown) Patient: Ester Benavides MR#: [id number] (units unknown) (unknown) (unknown) (no date) (unknown) (unknown) Per outside records, she reports receiving a shock a couple of times a year. I (units unknown) (unknown) (unknown) (no date) (unknown) (unknown) Plt Count 264 (units unknown) (unknown) (unknown) (no date) (unknown) (unknown) Plt Count 320 (units unknown) (unknown) (unknown) (no date) (unknown) (unknown) Plt Count (units unknown) (unknown) (unknown) (no date) (unknown) (unknown) Potassium 4.1 (units unknown) (unknown) (unknown) (no date) (unknown) (unknown) Potassium 4.2 (units unknown) (unknown) (unknown) (no date) (unknown) (unknown) Potassium (units unknown) (unknown) (unknown) (no date) (unknown) (unknown) Procalcitonin 0.06 (units unknown) (unknown) (unknown) (no date) (unknown) (unknown) Procalcitonin (units unknown) (unknown) (unknown) (no date) (unknown) (unknown) Progress Note (units unknown) (unknown) (unknown) (no date) (unknown) (unknown) Prophylaxis (units unknown) (unknown) (unknown) (no date) (unknown) (unknown) Provider: Jerald Sanches D.O. (units unknown) (unknown) (unknown) (no date) (unknown) (unknown) Pulse Oximetry 90 L 91 (units unknown) (unknown) (unknown) (no date) (unknown) (unknown) Pulse Oximetry 90 L 92 (units unknown) (unknown) (unknown) (no date) (unknown) (unknown) Pulse Oximetry 90 L (units unknown) (unknown) (unknown) (no date) (unknown) (unknown) Pulse Oximetry 92 92 (units unknown) (unknown) (unknown) (no date) (unknown) (unknown) Pulse Oximetry 93 92 (units unknown) (unknown) (unknown) (no date) (unknown) (unknown) Pulse Oximetry 93 96 (units unknown) (unknown) (unknown) (no date) (unknown) (unknown) Pulse Oximetry 94 92 (units unknown) (unknown) (unknown) (no date) (unknown) (unknown) Pulse Oximetry 94 94 (units unknown) (unknown) (unknown) (no date) (unknown) (unknown) Pulse Oximetry 95 95 (units unknown) (unknown) (unknown) (no date) (unknown) (unknown) Pulse Oximetry 95 (units unknown) (unknown) (unknown) (no date) (unknown) (unknown) Pulse Oximetry 96 96 (units unknown) (unknown) (unknown) (no date) (unknown) (unknown) Pulse Oximetry 97 92 (units unknown) (unknown) (unknown) (no date) (unknown) (unknown) Pulse Rate 60 60 (units unknown) (unknown) (unknown) (no date) (unknown) (unknown) Pulse Rate 60 62 (units unknown) (unknown) (unknown) (no date) (unknown) (unknown) Pulse Rate 60 (units unknown) (unknown) (unknown) (no date) (unknown) (unknown) Pulse Rate 68 61 (units unknown) (unknown) (unknown) (no date) (unknown) (unknown) RBC 4.92 (units unknown) (unknown) (unknown) (no date) (unknown) (unknown) RBC 5.11 (units unknown) (unknown) (unknown) (no date) (unknown) (unknown) RBC (units unknown) (unknown) (unknown) (no date) (unknown) (unknown) RDW 13.9 (units unknown) (unknown) (unknown) (no date) (unknown) (unknown) RDW 14.0 (units unknown) (unknown) (unknown) (no date) (unknown) (unknown) RDW (units unknown) (unknown) (unknown) (no date) (unknown) (unknown) RSV (PCR) Not detected (units unknown) (unknown) (unknown) (no date) (unknown) (unknown) RSV (PCR) (units unknown) (unknown) (unknown) (no date) (unknown) (unknown) Respiratory Rate 20 35 H (units unknown) (unknown) (unknown) (no date) (unknown) (unknown) Respiratory Rate 22 24 (units unknown) (unknown) (unknown) (no date) (unknown) (unknown) Respiratory Rate 24 28 H (units unknown) (unknown) (unknown) (no date) (unknown) (unknown) Respiratory Rate 24 (units unknown) (unknown) (unknown) (no date) (unknown) (unknown) Respiratory Rate 25 H 26 H (units unknown) (unknown) (unknown) (no date) (unknown) (unknown) Respiratory Rate 26 H 27 H (units unknown) (unknown) (unknown) (no date) (unknown) (unknown) Respiratory Rate 26 H (units unknown) (unknown) (unknown) (no date) (unknown) (unknown) Respiratory Rate 28 H 25 H (units unknown) (unknown) (unknown) (no date) (unknown) (unknown) Respiratory Rate 30 H 27 H (units unknown) (unknown) (unknown) (no date) (unknown) (unknown) Respiratory Rate 31 H 26 H (units unknown) (unknown) (unknown) (no date) (unknown) (unknown) Respiratory Rate 31 H (units unknown) (unknown) (unknown) (no date) (unknown) (unknown) Respiratory Rate 33 H 26 H (units unknown) (unknown) (unknown) (no date) (unknown) (unknown) Respiratory Rate 34 H 32 H (units unknown) (unknown) (unknown) (no date) (unknown) (unknown) SARS-CoV-2 (PCR) Not detected (units unknown) (unknown) (unknown) (no date) (unknown) (unknown) SARS-CoV-2 (PCR) (units unknown) (unknown) (unknown) (no date) (unknown) (unknown) SKIN: Warm and dry, without rash (units unknown) (unknown) (unknown) (no date) (unknown) (unknown) SaO2/FiO2 Ratio 250 (units unknown) (unknown) (unknown) (no date) (unknown) (unknown) She tested positive both at the outside hospital and on today's labs. She is (units unknown) (unknown) (unknown) (no date) (unknown) (unknown) Signed By: (units unknown) (unknown) (unknown) (no date) (unknown) (unknown) Smoking Status: Current every day smoker (units unknown) (unknown) (unknown) (no date) (unknown) (unknown) Social History (units unknown) (unknown) (unknown) (no date) (unknown) (unknown) Sodium 136 L (units unknown) (unknown) (unknown) (no date) (unknown) (unknown) Sodium 137 (units unknown) (unknown) (unknown) (no date) (unknown) (unknown) Sodium (units unknown) (unknown) (unknown) (no date) (unknown) (unknown) Temperature 97.0 F L (units unknown) (unknown) (unknown) (no date) (unknown) (unknown) Temperature 97.7 F (units unknown) (unknown) (unknown) (no date) (unknown) (unknown) Temperature (units unknown) (unknown) (unknown) (no date) (unknown) (unknown) Time Spent With Patient (units unknown) (unknown) (unknown) (no date) (unknown) (unknown) Total Bilirubin 0.7 (units unknown) (unknown) (unknown) (no date) (unknown) (unknown) Total Bilirubin (units unknown) (unknown) (unknown) (no date) (unknown) (unknown) Total Creatine Kinas e 36 (units unknown) (unknown) (unknown) (no date) (unknown) (unknown) Total Creatine Kinase (units unknown) (unknown) (unknown) (no date) (unknown) (unknown) Total Protein 7.0 (units unknown) (unknown) (unknown) (no date) (unknown) (unknown) Total Protein (units unknown) (unknown) (unknown) (no date) (unknown) (unknown) Troponin I < 0.012 (units unknown) (unknown) (unknown) (no date) (unknown) (unknown) Troponin I (units unknown) (unknown) (unknown) (no date) (unknown) (unknown) Troponin here is negative. Await medication reconciliation. (units unknown) (unknown) (unknown) (no date) (unknown) (unknown) URI symptoms for the duration of her hospitalization at the outside hospital. (units unknown) (unknown) (unknown) (no date) (unknown) (unknown) Vital Signs (units unknown) (unknown) (unknown) (no date) (unknown) (unknown) WBC 17.1 H (units unknown) (unknown) (unknown) (no date) (unknown) (unknown) WBC 20.6 H (units unknown) (unknown) (unknown) (no date) (unknown) (unknown) WBC (units unknown) (unknown) (unknown) (no date) (unknown) (unknown) [Embedded Image Not Available] (units unknown) (unknown) (unknown) (no date) (unknown) (unknown) afebrile. She does have a leukocytosis but this is likely steroid induced (units unknown) (unknown) (unknown) (no date) (unknown) (unknown) also report of CKD 3 , but here her creatinine is normal at 0.8. We will monitor (units unknown) (unknown) (unknown) (no date) (unknown) (unknown) am uncertain when sh e last had her device interrogated. (units unknown) (unknown) (unknown) (no date) (unknown) (unknown) and creatinine are normal. Will monitor. (units unknown) (unknown) (unknown) (no date) (unknown) (unknown) appears reasonably well compensated by her ABG. (units unknown) (unknown) (unknown) (no date) (unknown) (unknown) carotid arteries can not be heard over the BiPAP and respiratory noises (units unknown) (unknown) (unknown) (no date) (unknown) (unknown) confirm meds. (units unknown) (unknown) (unknown) (no date) (unknown) (unknown) confirm that she is indeed taking Eliquis at this time. (units unknown) (unknown) (unknown) (no date) (unknown) (unknown) continue BiPAP for relief of her severe respiratory distress. Fortunately, she (units unknown) (unknown) (unknown) (no date) (unknown) (unknown) day hospital stay. While there, she received diuresis, fluid restriction, IV (units unknown) (unknown) (unknown) (no date) (unknown) (unknown) department, she was hypoxic with room air saturations of 70%, tachypneic, and (units unknown) (unknown) (unknown) (no date) (unknown) (unknown) dependence, as I suspect she also has a component of obesity hypoventilation (units unknown) (unknown) (unknown) (no date) (unknown) (unknown) done at the outside hospital. No echocardiogram available in records to denote (units unknown) (unknown) (unknown) (no date) (unknown) (unknown) extraocular movement s intact, sclerae anicteric, conjunctiva clear, (units unknown) (unknown) (unknown) (no date) (unknown) (unknown) greatly benefit from weight reduction. (units unknown) (unknown) (unknown) (no date) (unknown) (unknown) heart failure. Exam also indicates a component of COPD exacerbation. Will (units unknown) (unknown) (unknown) (no date) (unknown) (unknown) her renal function closely. Ballard catheter will be placed. (units unknown) (unknown) (unknown) (no date) (unknown) (unknown) labs at the outside hospital. We will continue close monitoring. There is (units unknown) (unknown) (unknown) (no date) (unknown) (unknown) lives independently: Yes (units unknown) (unknown) (unknown) (no date) (unknown) (unknown) noting severe respiratory distress. Chest x-ray reveals evidence of congestive (units unknown) (unknown) (unknown) (no date) (unknown) (unknown) oropharyngeal exam can not be performed secondary to having BiPAP in place (units unknown) (unknown) (unknown) (no date) (unknown) (unknown) presently complainin g of any pain. Would avoid opioids for now given her BiPAP (units unknown) (unknown) (unknown) (no date) (unknown) (unknown) q.12. She does have significant hypercarbia thus will also add Diamox. We will (units unknown) (unknown) (unknown) (no date) (unknown) (unknown) quadrants, body habitus limits exam (units unknown) (unknown) (unknown) (no date) (unknown) (unknown) rather than related to an infection as she was afebrile and not complaining of (units unknown) (unknown) (unknown) (no date) (unknown) (unknown) responsive, appears to be oriented to self and situation, no acute distress (units unknown) (unknown) (unknown) (no date) (unknown) (unknown) restart furosemide 4 0 mg IV b.i.d.. Will also place on Solu-Medrol 80 mg IV (units unknown) (unknown) (unknown) (no date) (unknown) (unknown) scheduled (units unknown) (unknown) (unknown) (no date) (unknown) (unknown) significant azotemia with a BUN of 41 today. This appears to be consistent with (units unknown) (unknown) (unknown) (no date) (unknown) (unknown) steroids, and respiratory treatments. Upon arriving to our emergency (units unknown) (unknown) (unknown) (no date) (unknown) (unknown) syndrome. (units unknown) (unknown) (unknown) (no date) (unknown) (unknown) the severity of her congestive heart failure. Will obtain an echocardiogram. (units unknown) (unknown) (unknown) (no date) (unknown) (unknown) to be 8%. Will place on fingersticks and sliding scale. (units unknown) (unknown) (unknown) (no date) (unknown) (unknown) today; this time is exclusive of procedural time. (units unknown) (unknown) (unknown) (no date) (unknown) (unknown) uncertain if she takes chronic opioid medication at baseline. She is not (units unknown) (unknown) Result panel [id number] (unknown) (no date) (unknown) (unknown) (no value) (units unknown) (unknown) (unknown) (no date) (unknown) (unknown) (1) Human metapneumovirus (hMPV) pneumonia: (units unknown) (unknown) (unknown) (no date) (unknown) (unknown) (2) CHF exacerbation: (units unknown) (unknown) (unknown) (no date) (unknown) (unknown) (3) Acute metabolic encephalopathy: (units unknown) (unknown) (unknown) (no date) (unknown) (unknown) (4) Acute hypoxemic respiratory failure: (units unknown) (unknown) (unknown) (no date) (unknown) (unknown) (5) Acute exacerbation of chronic obstructive airways disease: (units unknown) (unknown) (unknown) (no date) (unknown) (unknown) (past 8 hours): (units unknown) (unknown) (unknown) (no date) (unknown) (unknown) 01:38 12:06 12:06 (units unknown) (unknown) (unknown) (no date) (unknown) (unknown) 02:13 07/25/22 (units unknown) (unknown) (unknown) (no date) (unknown) (unknown) 02:31 07/25/22 (units unknown) (unknown) (unknown) (no date) (unknown) (unknown) 02:31 (units unknown) (unknown) (unknown) (no date) (unknown) (unknown) 07/24/22 07/24/22 07/24/22 (units unknown) (unknown) (unknown) (no date) (unknown) (unknown) 07/24/22 07/24/22 07/25/22 (units unknown) (unknown) (unknown) (no date) (unknown) (unknown) 07/25/22 04:39 (units unknown) (unknown) (unknown) (no date) (unknown) (unknown) 07/25/22 1021 (units unknown) (unknown) (unknown) (no date) (unknown) (unknown) 07/25/22 [History Confirmed 07/25/22] (units unknown) (unknown) (unknown) (no date) (unknown) (unknown) 07/25/22 (units unknown) (unknown) (unknown) (no date) (unknown) (unknown) 03:00 07/25/22 (units unknown) (unknown) (unknown) (no date) (unknown) (unknown) 03:05 (units unknown) (unknown) (unknown) (no date) (unknown) (unknown) 03:30 07/25/22 (units unknown) (unknown) (unknown) (no date) (unknown) (unknown) 03:30 (units unknown) (unknown) (unknown) (no date) (unknown) (unknown) 04:00 07/25/22 (units unknown) (unknown) (unknown) (no date) (unknown) (unknown) 04:28 (units unknown) (unknown) (unknown) (no date) (unknown) (unknown) 04:30 07/25/22 (units unknown) (unknown) (unknown) (no date) (unknown) (unknown) 04:39 (units unknown) (unknown) (unknown) (no date) (unknown) (unknown) 05:01 07/25/22 (units unknown) (unknown) (unknown) (no date) (unknown) (unknown) 05:01 (units unknown) (unknown) (unknown) (no date) (unknown) (unknown) 05:03 07/25/22 (units unknown) (unknown) (unknown) (no date) (unknown) (unknown) 05:31 07/25/22 (units unknown) (unknown) (unknown) (no date) (unknown) (unknown) 05:31 (units unknown) (unknown) (unknown) (no date) (unknown) (unknown) 06:01 07/25/22 (units unknown) (unknown) (unknown) (no date) (unknown) (unknown) 06:01 (units unknown) (unknown) (unknown) (no date) (unknown) (unknown) 06:31 07/25/22 (units unknown) (unknown) (unknown) (no date) (unknown) (unknown) 06:54 (units unknown) (unknown) (unknown) (no date) (unknown) (unknown) 07:00 07/25/22 (units unknown) (unknown) (unknown) (no date) (unknown) (unknown) 07:30 (units unknown) (unknown) (unknown) (no date) (unknown) (unknown) 07:31 07/25/22 (units unknown) (unknown) (unknown) (no date) (unknown) (unknown) 08:00 (units unknown) (unknown) (unknown) (no date) (unknown) (unknown) 08:01 07/25/22 (units unknown) (unknown) (unknown) (no date) (unknown) (unknown) 08:30 (units unknown) (unknown) (unknown) (no date) (unknown) (unknown) 08:31 07/25/22 (units unknown) (unknown) (unknown) (no date) (unknown) (unknown) 09:00 (units unknown) (unknown) (unknown) (no date) (unknown) (unknown) 09:01 07/25/22 (units unknown) (unknown) (unknown) (no date) (unknown) (unknown) 09:30 (units unknown) (unknown) (unknown) (no date) (unknown) (unknown) 09:31 07/25/22 (units unknown) (unknown) (unknown) (no date) (unknown) (unknown) 09:31 (units unknown) (unknown) (unknown) (no date) (unknown) (unknown) 12:06 13:06 13:30 (units unknown) (unknown) (unknown) (no date) (unknown) (unknown) 17:25 21:32 04:39 (units unknown) (unknown) (unknown) (no date) (unknown) (unknown) [id number] (units unknown) (unknown) (unknown) (no date) (unknown) (unknown) 4-6) 07/25/22 [History Confirmed 07/25/22] (units unknown) (unknown) (unknown) (no date) (unknown) (unknown) ABG Base Excess 24.0 H (units unknown) (unknown) (unknown) (no date) (unknown) (unknown) ABG Base Excess (units unknown) (unknown) (unknown) (no date) (unknown) (unknown) ABG HCO3 48 H (units unknown) (unknown) (unknown) (no date) (unknown) (unknown) ABG HCO3 (units unknown) (unknown) (unknown) (no date) (unknown) (unknown) ABG O2 Saturation 84 L* (units unknown) (unknown) (unknown) (no date) (unknown) (unknown) ABG O2 Saturation (units unknown) (unknown) (unknown) (no date) (unknown) (unknown) ABG Total CO2 50 H (units unknown) (unknown) (unknown) (no date) (unknown) (unknown) ABG Total CO2 (units unknown) (unknown) (unknown) (no date) (unknown) (unknown) ABG pCO2 69.4 H* (units unknown) (unknown) (unknown) (no date) (unknown) (unknown) ABG pCO2 (units unknown) (unknown) (unknown) (no date) (unknown) (unknown) ABG pH 7.45 (units unknown) (unknown) (unknown) (no date) (unknown) (unknown) ABG pH (units unknown) (unknown) (unknown) (no date) (unknown) (unknown) ABG pO2 50 L (units unknown) (unknown) (unknown) (no date) (unknown) (unknown) ABG pO2 (units unknown) (unknown) (unknown) (no date) (unknown) (unknown) ALT 74 H (units unknown) (unknown) (unknown) (no date) (unknown) (unknown) ALT (units unknown) (unknown) (unknown) (no date) (unknown) (unknown) AST 31 (units unknown) (unknown) (unknown) (no date) (unknown) (unknown) AST (units unknown) (unknown) (unknown) (no date) (unknown) (unknown) Acetaminophen 325 Mg Tablet PO 650 mg (units unknown) (unknown) (unknown) (no date) (unknown) (unknown) Acetaminophen 650 mg 07/25/22 01:53 07/25/22 02:00 (units unknown) (unknown) (unknown) (no date) (unknown) (unknown) Acute respiratory failure, hypoxemia resolving: likely multifactorial, + human (units unknown) (unknown) (unknown) (no date) (unknown) (unknown) Adenovirus (PCR) Not detected (units unknown) (unknown) (unknown) (no date) (unknown) (unknown) Adenovirus (PCR) (units unknown) (unknown) (unknown) (no date) (unknown) (unknown) Age/Sex: 57 / F (units unknown) (unknown) (unknown) (no date) (unknown) (unknown) Albumin 3.8 (units unknown) (unknown) (unknown) (no date) (unknown) (unknown) Albumin (units unknown) (unknown) (unknown) (no date) (unknown) (unknown) Albumin/Globulin Ratio 1.2 (units unknown) (unknown) (unknown) (no date) (unknown) (unknown) Albumin/Globulin Ratio (units unknown) (unknown) (unknown) (no date) (unknown) (unknown) Albuterol 2.5 Mg/3 M l Neb (Adult) INH 2.5 mg (units unknown) (unknown) (unknown) (no date) (unknown) (unknown) Albuterol 2.5 mg 07/24/22 14:57 07/24/22 20:08 (units unknown) (unknown) (unknown) (no date) (unknown) (unknown) Albuterol/Ipratropiu m 3 Ml Ampul INH 3 ml (units unknown) (unknown) (unknown) (no date) (unknown) (unknown) Albuterol/Ipratropiu m 3 ml 07/24/22 15:00 07/25/22 05:52 (units unknown) (unknown) (unknown) (no date) (unknown) (unknown) Alkaline Phosphatase 83 (units unknown) (unknown) (unknown) (no date) (unknown) (unknown) Alkaline Phosphatase (units unknown) (unknown) (unknown) (no date) (unknown) (unknown) Assessment + Plan narrative: (units unknown) (unknown) (unknown) (no date) (unknown) (unknown) Assessment + Plan (units unknown) (unknown) (unknown) (no date) (unknown) (unknown) Assessment and plan (units unknown) (unknown) (unknown) (no date) (unknown) (unknown) B. pertussis DNA (PCR) Not detected (units unknown) (unknown) (unknown) (no date) (unknown) (unknown) B. pertussis DNA (PCR) (units unknown) (unknown) (unknown) (no date) (unknown) (unknown) B.parapertussis DNA PCR Not detected (units unknown) (unknown) (unknown) (no date) (unknown) (unknown) B.parapertussis DNA PCR (units unknown) (unknown) (unknown) (no date) (unknown) (unknown) BID ROMAN Administration (units unknown) (unknown) (unknown) (no date) (unknown) (unknown) BUN 41 H (units unknown) (unknown) (unknown) (no date) (unknown) (unknown) BUN 42 H (units unknown) (unknown) (unknown) (no date) (unknown) (unknown) BUN (units unknown) (unknown) (unknown) (no date) (unknown) (unknown) BUN/Creatinine Ratio 33.1 H (units unknown) (unknown) (unknown) (no date) (unknown) (unknown) BUN/Creatinine Ratio 51.3 H (units unknown) (unknown) (unknown) (no date) (unknown) (unknown) BUN/Creatinine Ratio (units unknown) (unknown) (unknown) (no date) (unknown) (unknown) Baso # (Auto) 0 (units unknown) (unknown) (unknown) (no date) (unknown) (unknown) Baso # (Auto) (units unknown) (unknown) (unknown) (no date) (unknown) (unknown) Baso % (Auto) 0.1 (units unknown) (unknown) (unknown) (no date) (unknown) (unknown) Baso % (Auto) (units unknown) (unknown) (unknown) (no date) (unknown) (unknown) Blood Pressure 103/62 (units unknown) (unknown) (unknown) (no date) (unknown) (unknown) Blood Pressure 110/5 4 L (units unknown) (unknown) (unknown) (no date) (unknown) (unknown) Blood Pressure 119/5 3 L (units unknown) (unknown) (unknown) (no date) (unknown) (unknown) Blood Pressure 121/77 (units unknown) (unknown) (unknown) (no date) (unknown) (unknown) Blood Pressure 122/5 7 L (units unknown) (unknown) (unknown) (no date) (unknown) (unknown) Blood Pressure 123/5 6 L (units unknown) (unknown) (unknown) (no date) (unknown) (unknown) Blood Pressure 125/60 (units unknown) (unknown) (unknown) (no date) (unknown) (unknown) Blood Pressure 128/5 6 L (units unknown) (unknown) (unknown) (no date) (unknown) (unknown) Blood Pressure 132/6 0 133/60 (units unknown) (unknown) (unknown) (no date) (unknown) (unknown) Blood Pressure 135/62 (units unknown) (unknown) (unknown) (no date) (unknown) (unknown) Blood Pressure 136/63 (units unknown) (unknown) (unknown) (no date) (unknown) (unknown) Blood Pressure 145/6 7 H (units unknown) (unknown) (unknown) (no date) (unknown) (unknown) Blood Pressure 151/6 6 H (units unknown) (unknown) (unknown) (no date) (unknown) (unknown) Blood Pressure 96/53 L (units unknown) (unknown) (unknown) (no date) (unknown) (unknown) Budesonide 0.5 Mg/2 Ml Neb INH 0.5 mg (units unknown) (unknown) (unknown) (no date) (unknown) (unknown) Budesonide 0.5 mg 07/24/22 20:00 07/24/22 20:08 (units unknown) (unknown) (unknown) (no date) (unknown) (unknown) CK-MB (CK-2) Rel Index TNP (units unknown) (unknown) (unknown) (no date) (unknown) (unknown) CK-MB (CK-2) Rel Index (units unknown) (unknown) (unknown) (no date) (unknown) (unknown) CK-MB (CK-2) TNP (units unknown) (unknown) (unknown) (no date) (unknown) (unknown) CK-MB (CK-2) (units unknown) (unknown) (unknown) (no date) (unknown) (unknown) Calcium 8.7 (units unknown) (unknown) (unknown) (no date) (unknown) (unknown) Calcium 9.5 (units unknown) (unknown) (unknown) (no date) (unknown) (unknown) Calcium (units unknown) (unknown) (unknown) (no date) (unknown) (unknown) Can likely downgrade from ICU today (units unknown) (unknown) (unknown) (no date) (unknown) (unknown) Cannula (units unknown) (unknown) (unknown) (no date) (unknown) (unknown) Carbon Dioxide 38 H (units unknown) (unknown) (unknown) (no date) (unknown) (unknown) Carbon Dioxide 39 H (units unknown) (unknown) (unknown) (no date) (unknown) (unknown) Carbon Dioxide (units unknown) (unknown) (unknown) (no date) (unknown) (unknown) Chlamy pneumoniae PC R Not detected (units unknown) (unknown) (unknown) (no date) (unknown) (unknown) Chlamy pneumoniae PCR (units unknown) (unknown) (unknown) (no date) (unknown) (unknown) Chloride 90 L (units unknown) (unknown) (unknown) (no date) (unknown) (unknown) Chloride (units unknown) (unknown) (unknown) (no date) (unknown) (unknown) Consent obtained for tele-credit officer care: Yes (units unknown) (unknown) (unknown) (no date) (unknown) (unknown) Continue doxycycline , steroid taper, nebs (units unknown) (unknown) (unknown) (no date) (unknown) (unknown) Continue home medications for htn/chf (units unknown) (unknown) (unknown) (no date) (unknown) (unknown) Coronavirus 229E (PCR) Not detected (units unknown) (unknown) (unknown) (no date) (unknown) (unknown) Coronavirus 229E (PCR) (units unknown) (unknown) (unknown) (no date) (unknown) (unknown) Coronavirus HKU1 (PCR) Not detected (units unknown) (unknown) (unknown) (no date) (unknown) (unknown) Coronavirus HKU1 (PCR) (units unknown) (unknown) (unknown) (no date) (unknown) (unknown) Coronavirus NL63 (PCR) Not detected (units unknown) (unknown) (unknown) (no date) (unknown) (unknown) Coronavirus NL63 (PCR) (units unknown) (unknown) (unknown) (no date) (unknown) (unknown) Coronavirus OC43 (PCR) Not detected (units unknown) (unknown) (unknown) (no date) (unknown) (unknown) Coronavirus OC43 (PCR) (units unknown) (unknown) (unknown) (no date) (unknown) (unknown) Cr bump this am (units unknown) (unknown) (unknown) (no date) (unknown) (unknown) Cr elevated this am after diuresis. Would aim for even fluid balance today (units unknown) (unknown) (unknown) (no date) (unknown) (unknown) Creatinine 0.80 (units unknown) (unknown) (unknown) (no date) (unknown) (unknown) Creatinine 1.27 H (units unknown) (unknown) (unknown) (no date) (unknown) (unknown) Creatinine (units unknown) (unknown) (unknown) (no date) (unknown) (unknown) Critical Care time: (units unknown) (unknown) (unknown) (no date) (unknown) (unknown) Current Medications (units unknown) (unknown) (unknown) (no date) (unknown) (unknown) DAILY ROMAN Administration (units unknown) (unknown) (unknown) (no date) (unknown) (unknown) : 1965 Acct:[id number] (units unknown) (unknown) (unknown) (no date) (unknown) (unknown) Date Patient Seen: 07/25/22 (units unknown) (unknown) (unknown) (no date) (unknown) (unknown) Date of Service: 07/24/22 (units unknown) (unknown) (unknown) (no date) (unknown) (unknown) Diphenhydramine 25 M g Tablet PO 50 mg (units unknown) (unknown) (unknown) (no date) (unknown) (unknown) Diphenhydramine HCl 50 mg 07/24/22 20:03 07/24/22 20:14 (units unknown) (unknown) (unknown) (no date) (unknown) (unknown) Doxycycline Hyclate 100 Mg Tablet PO 100 mg (units unknown) (unknown) (unknown) (no date) (unknown) (unknown) Doxycycline Hyclate 100 mg 07/24/22 21:00 07/25/22 09:21 (units unknown) (unknown) (unknown) (no date) (unknown) (unknown) Echo pending (units unknown) (unknown) (unknown) (no date) (unknown) (unknown) Effort + Inspection: normal respiratory effort (units unknown) (unknown) (unknown) (no date) (unknown) (unknown) Enoxaparin 40 Mg/0.4 Ml Syringe SUBCUT 40 mg (units unknown) (unknown) (unknown) (no date) (unknown) (unknown) Enoxaparin Sodium 40 mg 07/25/22 09:00 07/25/22 09:21 (units unknown) (unknown) (unknown) (no date) (unknown) (unknown) Entero/Rhino (PCR) Not detected (units unknown) (unknown) (unknown) (no date) (unknown) (unknown) Entero/Rhino (PCR) (units unknown) (unknown) (unknown) (no date) (unknown) (unknown) Eos # (Auto) 0 (units unknown) (unknown) (unknown) (no date) (unknown) (unknown) Eos # (Auto) (units unknown) (unknown) (unknown) (no date) (unknown) (unknown) Eos % (Auto) 0.0 L (units unknown) (unknown) (unknown) (no date) (unknown) (unknown) Eos % (Auto) (units unknown) (unknown) (unknown) (no date) (unknown) (unknown) Estimated GFR > 60 (units unknown) (unknown) (unknown) (no date) (unknown) (unknown) Estimated GFR 49 L (units unknown) (unknown) (unknown) (no date) (unknown) (unknown) Estimated GFR (units unknown) (unknown) (unknown) (no date) (unknown) (unknown) Exam Narrative: (units unknown) (unknown) (unknown) (no date) (unknown) (unknown) Exam (units unknown) (unknown) (unknown) (no date) (unknown) (unknown) Fever/Mild Pain (1-3) (units unknown) (unknown) (unknown) (no date) (unknown) (unknown) FiO2 40 (units unknown) (unknown) (unknown) (no date) (unknown) (unknown) FiO2 (units unknown) (unknown) (unknown) (no date) (unknown) (unknown) Fraction of Inspired Oxygen 36 (units unknown) (unknown) (unknown) (no date) (unknown) (unknown) General: patient alert and patient oriented x3 (units unknown) (unknown) (unknown) (no date) (unknown) (unknown) Generic Name Dose Route Start Last Admin (units unknown) (unknown) (unknown) (no date) (unknown) (unknown) Globulin 3.2 (units unknown) (unknown) (unknown) (no date) (unknown) (unknown) Globulin (units unknown) (unknown) (unknown) (no date) (unknown) (unknown) Glucose 248 H (units unknown) (unknown) (unknown) (no date) (unknown) (unknown) Glucose 290 H D (units unknown) (unknown) (unknown) (no date) (unknown) (unknown) Glucose 502 H* D (units unknown) (unknown) (unknown) (no date) (unknown) (unknown) Glucose (units unknown) (unknown) (unknown) (no date) (unknown) (unknown) Has been weaned off of bipap, on 4 L NC with last sat 95%. Home O2 requirement (units unknown) (unknown) (unknown) (no date) (unknown) (unknown) Has diuresed >1 L (units unknown) (unknown) (unknown) (no date) (unknown) (unknown) Hct 46.5 H (units unknown) (unknown) (unknown) (no date) (unknown) (unknown) Hct 48.5 H (units unknown) (unknown) (unknown) (no date) (unknown) (unknown) Hct (units unknown) (unknown) (unknown) (no date) (unknown) (unknown) Hgb 15.2 (units unknown) (unknown) (unknown) (no date) (unknown) (unknown) Hgb 15.8 (units unknown) (unknown) (unknown) (no date) (unknown) (unknown) Hgb (units unknown) (unknown) (unknown) (no date) (unknown) (unknown) Home Medications (units unknown) (unknown) (unknown) (no date) (unknown) (unknown) Human Metapneumovir PCR Detected H (units unknown) (unknown) (unknown) (no date) (unknown) (unknown) Human Metapneumovir PCR (units unknown) (unknown) (unknown) (no date) (unknown) (unknown) I spent a total of [33] minutes of critical care time on this patient's care (units unknown) (unknown) (unknown) (no date) (unknown) (unknown) IF CAMER[place] ACTIVATED, patient seen via real-time interactive audiovisual (units unknown) (unknown) (unknown) (no date) (unknown) (unknown) Influenza Type A (PCR) Not detected (units unknown) (unknown) (unknown) (no date) (unknown) (unknown) Influenza Type A (PCR) (units unknown) (unknown) (unknown) (no date) (unknown) (unknown) Influenza Type B (PCR) Not detected (units unknown) (unknown) (unknown) (no date) (unknown) (unknown) Influenza Type B (PCR) (units unknown) (unknown) (unknown) (no date) (unknown) (unknown) Insulin Glargine 100 Unit/Ml 3ml Pen SUBCUT 25 unit (units unknown) (unknown) (unknown) (no date) (unknown) (unknown) Insulin Glargine 25 unit 07/25/22 09:15 07/25/22 09:22 (units unknown) (unknown) (unknown) (no date) (unknown) (unknown) Interval history: (units unknown) (unknown) (unknown) (no date) (unknown) (unknown) [address] [id number] (units unknown) (unknown) (unknown) (no date) (unknown) (unknown) Itching (units unknown) (unknown) (unknown) (no date) (unknown) (unknown) L NC with sats between 88-94%. (units unknown) (unknown) (unknown) (no date) (unknown) (unknown) Laboratory Results - last 24 hr (units unknown) (unknown) (unknown) (no date) (unknown) (unknown) Labs (units unknown) (unknown) (unknown) (no date) (unknown) (unknown) Labs: (units unknown) (unknown) (unknown) (no date) (unknown) (unknown) Lactate 2.2 H 2.2 H (units unknown) (unknown) (unknown) (no date) (unknown) (unknown) Lactate (units unknown) (unknown) (unknown) (no date) (unknown) (unknown) Lipase 43 (units unknown) (unknown) (unknown) (no date) (unknown) (unknown) Lipase (units unknown) (unknown) (unknown) (no date) (unknown) (unknown) Lymph # (Auto) 1000 L (units unknown) (unknown) (unknown) (no date) (unknown) (unknown) Lymph # (Auto) 600 L (units unknown) (unknown) (unknown) (no date) (unknown) (unknown) Lymph # (Auto) (units unknown) (unknown) (unknown) (no date) (unknown) (unknown) Lymph % (Auto) 3.7 L (units unknown) (unknown) (unknown) (no date) (unknown) (unknown) Lymph % (Auto) 5.0 L (units unknown) (unknown) (unknown) (no date) (unknown) (unknown) Lymph % (Auto) (units unknown) (unknown) (unknown) (no date) (unknown) (unknown) M. pneumoniae (PCR) Not detected (units unknown) (unknown) (unknown) (no date) (unknown) (unknown) M. pneumoniae (PCR) (units unknown) (unknown) (unknown) (no date) (unknown) (unknown) MCH 30.9 (units unknown) (unknown) (unknown) (no date) (unknown) (unknown) MCH (units unknown) (unknown) (unknown) (no date) (unknown) (unknown) MCHC 32.6 (units unknown) (unknown) (unknown) (no date) (unknown) (unknown) MCHC 32.7 (units unknown) (unknown) (unknown) (no date) (unknown) (unknown) MCHC (units unknown) (unknown) (unknown) (no date) (unknown) (unknown) MCV 94.5 (units unknown) (unknown) (unknown) (no date) (unknown) (unknown) MCV 94.8 (units unknown) (unknown) (unknown) (no date) (unknown) (unknown) MCV (units unknown) (unknown) (unknown) (no date) (unknown) (unknown) Magnesium 2.3 (units unknown) (unknown) (unknown) (no date) (unknown) (unknown) Magnesium (units unknown) (unknown) (unknown) (no date) (unknown) (unknown) Med rec in process: eliquis and amiodarone to be restarted (units unknown) (unknown) (unknown) (no date) (unknown) (unknown) Medications: (units unknown) (unknown) (unknown) (no date) (unknown) (unknown) Methylprednisolone 125 Mg/2 Ml Vial IV 80 mg (units unknown) (unknown) (unknown) (no date) (unknown) (unknown) Methylprednisolone 8 0 mg 07/24/22 13:53 07/25/22 01:54 (units unknown) (unknown) (unknown) (no date) (unknown) (unknown) [place] # (Auto) 1400 H (units unknown) (unknown) (unknown) (no date) (unknown) (unknown) [place] # (Auto) 800 (units unknown) (unknown) (unknown) (no date) (unknown) (unknown) [place] # (Auto) (units unknown) (unknown) (unknown) (no date) (unknown) (unknown) [place] % (Auto) 4.6 (units unknown) (unknown) (unknown) (no date) (unknown) (unknown) [place] % (Auto) 7.0 (units unknown) (unknown) (unknown) (no date) (unknown) (unknown) [place] % (Auto) (units unknown) (unknown) (unknown) (no date) (unknown) (unknown) NT-Pro-B Natriuret Pep 2860 H (units unknown) (unknown) (unknown) (no date) (unknown) (unknown) NT-Pro-B Natriuret Pep (units unknown) (unknown) (unknown) (no date) (unknown) (unknown) Narrative (units unknown) (unknown) (unknown) (no date) (unknown) (unknown) Nasal Screen MRSA (PCR) Not detected (units unknown) (unknown) (unknown) (no date) (unknown) (unknown) Nasal Screen MRSA (PCR) (units unknown) (unknown) (unknown) (no date) (unknown) (unknown) Nausea And Vomiting (units unknown) (unknown) (unknown) (no date) (unknown) (unknown) Neuro (units unknown) (unknown) (unknown) (no date) (unknown) (unknown) Neut # (Auto) 40401 H (units unknown) (unknown) (unknown) (no date) (unknown) (unknown) Neut # (Auto) 58646 H (units unknown) (unknown) (unknown) (no date) (unknown) (unknown) Neut # (Auto) (units unknown) (unknown) (unknown) (no date) (unknown) (unknown) Neut % (Auto) 87.9 H (units unknown) (unknown) (unknown) (no date) (unknown) (unknown) Neut % (Auto) 91.6 H (units unknown) (unknown) (unknown) (no date) (unknown) (unknown) Neut % (Auto) (units unknown) (unknown) (unknown) (no date) (unknown) (unknown) No acute distress (units unknown) (unknown) (unknown) (no date) (unknown) (unknown) Objective (units unknown) (unknown) (unknown) (no date) (unknown) (unknown) Ondansetron 4 Mg/2 M l Inj IV 4 mg (units unknown) (unknown) (unknown) (no date) (unknown) (unknown) Ondansetron HCl 4 mg 07/24/22 20:03 07/24/22 20:14 (units unknown) (unknown) (unknown) (no date) (unknown) (unknown) Other participants/roles: Bedside RN (units unknown) (unknown) (unknown) (no date) (unknown) (unknown) Oxycodone HCl 5 mg 07/25/22 01:53 07/25/22 06:14 (units unknown) (unknown) (unknown) (no date) (unknown) (unknown) Oxycodone Ir 5 Mg Tablet PO 5 mg (units unknown) (unknown) (unknown) (no date) (unknown) (unknown) Oxygen Delivery Method High Flow Nasal Cannula (units unknown) (unknown) (unknown) (no date) (unknown) (unknown) Oxygen Delivery Method High Flow Nasal (units unknown) (unknown) (unknown) (no date) (unknown) (unknown) Oxygen Delivery Method (units unknown) (unknown) (unknown) (no date) (unknown) (unknown) Oxygen Flow Rate 4 4 4 (units unknown) (unknown) (unknown) (no date) (unknown) (unknown) Oxygen Flow Rate 4 4 (units unknown) (unknown) (unknown) (no date) (unknown) (unknown) Oxygen Flow Rate 4 (units unknown) (unknown) (unknown) (no date) (unknown) (unknown) Oxygen Flow Rate (units unknown) (unknown) (unknown) (no date) (unknown) (unknown) Pain, Moderate (4-10) (units unknown) (unknown) (unknown) (no date) (unknown) (unknown) Parainfluenza 1 (PCR ) Not detected (units unknown) (unknown) (unknown) (no date) (unknown) (unknown) Parainfluenza 1 (PCR) (units unknown) (unknown) (unknown) (no date) (unknown) (unknown) Parainfluenza 2 (PCR ) Not detected (units unknown) (unknown) (unknown) (no date) (unknown) (unknown) Parainfluenza 2 (PCR) (units unknown) (unknown) (unknown) (no date) (unknown) (unknown) Parainfluenza 3 (PCR ) Not detected (units unknown) (unknown) (unknown) (no date) (unknown) (unknown) Parainfluenza 3 (PCR) (units unknown) (unknown) (unknown) (no date) (unknown) (unknown) Parainfluenza 4 (PCR ) Not detected (units unknown) (unknown) (unknown) (no date) (unknown) (unknown) Parainfluenza 4 (PCR) (units unknown) (unknown) (unknown) (no date) (unknown) (unknown) Patient Location: ICU (units unknown) (unknown) (unknown) (no date) (unknown) (unknown) Patient has been off of bipap since yesterday around 1800. Has since been on 4 (units unknown) (unknown) (unknown) (no date) (unknown) (unknown) Patient: Ester Benavides MR#: [id number] (units unknown) (unknown) (unknown) (no date) (unknown) (unknown) Plan: (units unknown) (unknown) (unknown) (no date) (unknown) (unknown) Plt Count 264 (units unknown) (unknown) (unknown) (no date) (unknown) (unknown) Plt Count 320 (units unknown) (unknown) (unknown) (no date) (unknown) (unknown) Plt Count (units unknown) (unknown) (unknown) (no date) (unknown) (unknown) Potassium 4.1 (units unknown) (unknown) (unknown) (no date) (unknown) (unknown) Potassium 4.2 (units unknown) (unknown) (unknown) (no date) (unknown) (unknown) Potassium (units unknown) (unknown) (unknown) (no date) (unknown) (unknown) Procalcitonin 0.06 (units unknown) (unknown) (unknown) (no date) (unknown) (unknown) Procalcitonin (units unknown) (unknown) (unknown) (no date) (unknown) (unknown) Provider location (State): [place] (units unknown) (unknown) (unknown) (no date) (unknown) (unknown) Provider: Tammy Carrillo MD (units unknown) (unknown) (unknown) (no date) (unknown) (unknown) Pulse Oximetry 90 L 90 L (units unknown) (unknown) (unknown) (no date) (unknown) (unknown) Pulse Oximetry 90 L 95 (units unknown) (unknown) (unknown) (no date) (unknown) (unknown) Pulse Oximetry 90 L (units unknown) (unknown) (unknown) (no date) (unknown) (unknown) Pulse Oximetry 91 90 L (units unknown) (unknown) (unknown) (no date) (unknown) (unknown) Pulse Oximetry 92 90 L (units unknown) (unknown) (unknown) (no date) (unknown) (unknown) Pulse Oximetry 92 92 (units unknown) (unknown) (unknown) (no date) (unknown) (unknown) Pulse Oximetry 92 93 (units unknown) (unknown) (unknown) (no date) (unknown) (unknown) Pulse Oximetry 92 94 (units unknown) (unknown) (unknown) (no date) (unknown) (unknown) Pulse Oximetry 94 96 (units unknown) (unknown) (unknown) (no date) (unknown) (unknown) Pulse Oximetry 95 94 (units unknown) (unknown) (unknown) (no date) (unknown) (unknown) Pulse Oximetry 95 95 (units unknown) (unknown) (unknown) (no date) (unknown) (unknown) Pulse Oximetry 95 (units unknown) (unknown) (unknown) (no date) (unknown) (unknown) Pulse Oximetry 96 95 (units unknown) (unknown) (unknown) (no date) (unknown) (unknown) Pulse Rate 60 60 (units unknown) (unknown) (unknown) (no date) (unknown) (unknown) Pulse Rate 60 62 (units unknown) (unknown) (unknown) (no date) (unknown) (unknown) Pulse Rate 60 68 (units unknown) (unknown) (unknown) (no date) (unknown) (unknown) Pulse Rate 60 (units unknown) (unknown) (unknown) (no date) (unknown) (unknown) Pulse Rate 61 64 (units unknown) (unknown) (unknown) (no date) (unknown) (unknown) Pulse Rate 68 (units unknown) (unknown) (unknown) (no date) (unknown) (unknown) Q12H ROMAN Administration (units unknown) (unknown) (unknown) (no date) (unknown) (unknown) Q4HR PRN Administration (units unknown) (unknown) (unknown) (no date) (unknown) (unknown) Q6H PRN Administration (units unknown) (unknown) (unknown) (no date) (unknown) (unknown) Q6HR PRN Administration (units unknown) (unknown) (unknown) (no date) (unknown) (unknown) RBC 4.92 (units unknown) (unknown) (unknown) (no date) (unknown) (unknown) RBC 5.11 (units unknown) (unknown) (unknown) (no date) (unknown) (unknown) RBC (units unknown) (unknown) (unknown) (no date) (unknown) (unknown) RDW 13.9 (units unknown) (unknown) (unknown) (no date) (unknown) (unknown) RDW 14.0 (units unknown) (unknown) (unknown) (no date) (unknown) (unknown) RDW (units unknown) (unknown) (unknown) (no date) (unknown) (unknown) RSV (PCR) Not detected (units unknown) (unknown) (unknown) (no date) (unknown) (unknown) RSV (PCR) (units unknown) (unknown) (unknown) (no date) (unknown) (unknown) RTBID ROMAN Administration (units unknown) (unknown) (unknown) (no date) (unknown) (unknown) [id number] PRN Administration (units unknown) (unknown) (unknown) (no date) (unknown) (unknown) [id number] ROMAN Administration (units unknown) (unknown) (unknown) (no date) (unknown) (unknown) Resp (units unknown) (unknown) (unknown) (no date) (unknown) (unknown) Respiratory Rate 24 22 (units unknown) (unknown) (unknown) (no date) (unknown) (unknown) Respiratory Rate 24 26 H (units unknown) (unknown) (unknown) (no date) (unknown) (unknown) Respiratory Rate 24 30 H (units unknown) (unknown) (unknown) (no date) (unknown) (unknown) Respiratory Rate 25 H 26 H (units unknown) (unknown) (unknown) (no date) (unknown) (unknown) Respiratory Rate 25 H (units unknown) (unknown) (unknown) (no date) (unknown) (unknown) Respiratory Rate 26 H 34 H (units unknown) (unknown) (unknown) (no date) (unknown) (unknown) Respiratory Rate 27 H 24 (units unknown) (unknown) (unknown) (no date) (unknown) (unknown) Respiratory Rate 27 H 31 H (units unknown) (unknown) (unknown) (no date) (unknown) (unknown) Respiratory Rate 28 H 26 H (units unknown) (unknown) (unknown) (no date) (unknown) (unknown) Respiratory Rate 31 H 28 H (units unknown) (unknown) (unknown) (no date) (unknown) (unknown) Respiratory Rate 32 H 22 (units unknown) (unknown) (unknown) (no date) (unknown) (unknown) Respiratory Rate 32 H 33 H (units unknown) (unknown) (unknown) (no date) (unknown) (unknown) Respiratory Rate 33 H (units unknown) (unknown) (unknown) (no date) (unknown) (unknown) Restarted home eliquis/amiodarone (units unknown) (unknown) (unknown) (no date) (unknown) (unknown) SARS-CoV-2 (PCR) Not detected (units unknown) (unknown) (unknown) (no date) (unknown) (unknown) SARS-CoV-2 (PCR) (units unknown) (unknown) (unknown) (no date) (unknown) (unknown) SaO2/FiO2 Ratio 250 (units unknown) (unknown) (unknown) (no date) (unknown) (unknown) Shortness Of Breath (units unknown) (unknown) (unknown) (no date) (unknown) (unknown) Signed By:<Electronically signed by Nikki Carrillo MD> (units unknown) (unknown) (unknown) (no date) (unknown) (unknown) Sodium 136 L (units unknown) (unknown) (unknown) (no date) (unknown) (unknown) Sodium 137 (units unknown) (unknown) (unknown) (no date) (unknown) (unknown) Sodium (units unknown) (unknown) (unknown) (no date) (unknown) (unknown) Status: Acute (units unknown) (unknown) (unknown) (no date) (unknown) (unknown) Subjective (units unknown) (unknown) (unknown) (no date) (unknown) (unknown) Teleintensivist Progress Note (units unknown) (unknown) (unknown) (no date) (unknown) (unknown) Temperature 97.0 F L (units unknown) (unknown) (unknown) (no date) (unknown) (unknown) Temperature 97.7 F (units unknown) (unknown) (unknown) (no date) (unknown) (unknown) Temperature (units unknown) (unknown) (unknown) (no date) (unknown) (unknown) Time Spent With Patient (units unknown) (unknown) (unknown) (no date) (unknown) (unknown) Total Bilirubin 0.7 (units unknown) (unknown) (unknown) (no date) (unknown) (unknown) Total Bilirubin (units unknown) (unknown) (unknown) (no date) (unknown) (unknown) Total Creatine Kinas e 36 (units unknown) (unknown) (unknown) (no date) (unknown) (unknown) Total Creatine Kinase (units unknown) (unknown) (unknown) (no date) (unknown) (unknown) Total Protein 7.0 (units unknown) (unknown) (unknown) (no date) (unknown) (unknown) Total Protein (units unknown) (unknown) (unknown) (no date) (unknown) (unknown) Trade Name [employer] PR Reason Stop Dose Admin (units unknown) (unknown) (unknown) (no date) (unknown) (unknown) Troponin I < 0.012 (units unknown) (unknown) (unknown) (no date) (unknown) (unknown) Troponin I (units unknown) (unknown) (unknown) (no date) (unknown) (unknown) Visit Medications (administered) (units unknown) (unknown) (unknown) (no date) (unknown) (unknown) Vital Signs (units unknown) (unknown) (unknown) (no date) (unknown) (unknown) WBC 17.1 H (units unknown) (unknown) (unknown) (no date) (unknown) (unknown) WBC 20.6 H (units unknown) (unknown) (unknown) (no date) (unknown) (unknown) WBC (units unknown) (unknown) (unknown) (no date) (unknown) (unknown) Wearing NC (units unknown) (unknown) (unknown) (no date) (unknown) (unknown) [Embedded Image Not Available] (units unknown) (unknown) (unknown) (no date) (unknown) (unknown) [History Confirmed 07/25/22] (units unknown) (unknown) (unknown) (no date) (unknown) (unknown) albuterol sulfate 90 mcg/actuation aerosol inhaler (Ventolin HFA) 2 puff (units unknown) (unknown) (unknown) (no date) (unknown) (unknown) amiodarone 200 mg tablet 100 mg PO DAILY 07/25/22 [History Confirmed 07/25/22] (units unknown) (unknown) (unknown) (no date) (unknown) (unknown) apixaban 5 mg tablet (Eliquis) 5 mg PO BID 07/25/22 [History Confirmed 07/25/22] (units unknown) (unknown) (unknown) (no date) (unknown) (unknown) budesonide 90 mcg/actuation breath activated powder inhaler 2 inh inhalation BID (units unknown) (unknown) (unknown) (no date) (unknown) (unknown) communication: [place] a activated (units unknown) (unknown) (unknown) (no date) (unknown) (unknown) furosemide 40 mg tablet 40 mg PO BID 07/25/22 [History Confirmed 07/25/22] (units unknown) (unknown) (unknown) (no date) (unknown) (unknown) hydrocodone 5 mg-acetaminophen 325 mg tablet 1 tab PO Q6H PRN Pain (Scale Score (units unknown) (unknown) (unknown) (no date) (unknown) (unknown) inhalation QID PRN Shortness Of Breath 07/25/22 [History Confirmed 07/25/22] (units unknown) (unknown) (unknown) (no date) (unknown) (unknown) is 2-3 L O2 (units unknown) (unknown) (unknown) (no date) (unknown) (unknown) lisinopril 5 mg tablet 5 mg PO DAILY 07/25/22 [History Confirmed 07/25/22] (units unknown) (unknown) (unknown) (no date) (unknown) (unknown) mental status improved (units unknown) (unknown) (unknown) (no date) (unknown) (unknown) metapneumovirus PNA, plus CHF, underlying COPD (units unknown) (unknown) (unknown) (no date) (unknown) (unknown) metoprolol succinate 100 mg tablet,extended release 24 hr 100 mg PO BID 07/25/22 (units unknown) (unknown) (unknown) (no date) (unknown) (unknown) montelukast 10 mg tablet 10 mg PO DAILY 07/25/22 [History Confirmed 07/25/22] (units unknown) (unknown) (unknown) (no date) (unknown) (unknown) prednisone 5 mg tablet 5 mg PO DAILY 07/25/22 [History Confirmed 07/25/22] (units unknown) (unknown) (unknown) (no date) (unknown) (unknown) spironolactone 25 mg tablet 25 mg PO DAILY 07/25/22 [History Confirmed 07/25/22] (units unknown) (unknown) (unknown) (no date) (unknown) (unknown) today; this time is exclusive of procedural time. (units unknown) (unknown) Result panel [id number] (unknown) (no date) (unknown) (unknown) (no value) (units unknown) (unknown) (unknown) (no date) (unknown) (unknown) (past 8 hours): (units unknown) (unknown) (unknown) (no date) (unknown) (unknown) 01:01 07/25/22 (units unknown) (unknown) (unknown) (no date) (unknown) (unknown) 01:25 (units unknown) (unknown) (unknown) (no date) (unknown) (unknown) 01:30 07/25/22 (units unknown) (unknown) (unknown) (no date) (unknown) (unknown) 01:38 12:06 12:06 (units unknown) (unknown) (unknown) (no date) (unknown) (unknown) 02:01 07/25/22 (units unknown) (unknown) (unknown) (no date) (unknown) (unknown) 02:01 (units unknown) (unknown) (unknown) (no date) (unknown) (unknown) 02:13 07/25/22 (units unknown) (unknown) (unknown) (no date) (unknown) (unknown) 02:31 07/25/22 (units unknown) (unknown) (unknown) (no date) (unknown) (unknown) 02:31 (units unknown) (unknown) (unknown) (no date) (unknown) (unknown) 07/24/22 07/24/22 07/24/22 (units unknown) (unknown) (unknown) (no date) (unknown) (unknown) 07/24/22 07/24/22 07/25/22 (units unknown) (unknown) (unknown) (no date) (unknown) (unknown) 07/25/22 04:39 (units unknown) (unknown) (unknown) (no date) (unknown) (unknown) 07/25/22 (units unknown) (unknown) (unknown) (no date) (unknown) (unknown) 03:00 07/25/22 (units unknown) (unknown) (unknown) (no date) (unknown) (unknown) 03:00 (units unknown) (unknown) (unknown) (no date) (unknown) (unknown) 03:05 07/25/22 (units unknown) (unknown) (unknown) (no date) (unknown) (unknown) 03:30 07/25/22 (units unknown) (unknown) (unknown) (no date) (unknown) (unknown) 03:30 (units unknown) (unknown) (unknown) (no date) (unknown) (unknown) 04:00 07/25/22 (units unknown) (unknown) (unknown) (no date) (unknown) (unknown) 04:00 (units unknown) (unknown) (unknown) (no date) (unknown) (unknown) 04:28 07/25/22 (units unknown) (unknown) (unknown) (no date) (unknown) (unknown) 04:30 07/25/22 (units unknown) (unknown) (unknown) (no date) (unknown) (unknown) 04:30 (units unknown) (unknown) (unknown) (no date) (unknown) (unknown) 04:39 (units unknown) (unknown) (unknown) (no date) (unknown) (unknown) 05:01 07/25/22 (units unknown) (unknown) (unknown) (no date) (unknown) (unknown) 05:03 (units unknown) (unknown) (unknown) (no date) (unknown) (unknown) 05:31 07/25/22 (units unknown) (unknown) (unknown) (no date) (unknown) (unknown) 06:01 07/25/22 (units unknown) (unknown) (unknown) (no date) (unknown) (unknown) 06:01 (units unknown) (unknown) (unknown) (no date) (unknown) (unknown) 06:31 07/25/22 (units unknown) (unknown) (unknown) (no date) (unknown) (unknown) 06:31 (units unknown) (unknown) (unknown) (no date) (unknown) (unknown) 06:54 07/25/22 (units unknown) (unknown) (unknown) (no date) (unknown) (unknown) 07:00 07/25/22 (units unknown) (unknown) (unknown) (no date) (unknown) (unknown) 07:00 (units unknown) (unknown) (unknown) (no date) (unknown) (unknown) 07:30 07/25/22 (units unknown) (unknown) (unknown) (no date) (unknown) (unknown) 07:31 07/25/22 (units unknown) (unknown) (unknown) (no date) (unknown) (unknown) 07:31 (units unknown) (unknown) (unknown) (no date) (unknown) (unknown) 08:00 07/25/22 (units unknown) (unknown) (unknown) (no date) (unknown) (unknown) 08:01 07/25/22 (units unknown) (unknown) (unknown) (no date) (unknown) (unknown) 08:01 (units unknown) (unknown) (unknown) (no date) (unknown) (unknown) 08:30 07/25/22 (units unknown) (unknown) (unknown) (no date) (unknown) (unknown) 08:31 07/25/22 (units unknown) (unknown) (unknown) (no date) (unknown) (unknown) 08:31 (units unknown) (unknown) (unknown) (no date) (unknown) (unknown) 1. Acute on chronic hypoxic and hypercarbic respiratory failure, improving (units unknown) (unknown) (unknown) (no date) (unknown) (unknown) 10. Reported CKD stage 3 (units unknown) (unknown) (unknown) (no date) (unknown) (unknown) 11. Chronic pain syndrome (units unknown) (unknown) (unknown) (no date) (unknown) (unknown) 12. Hypertension (units unknown) (unknown) (unknown) (no date) (unknown) (unknown) 12:06 13:06 13:30 (units unknown) (unknown) (unknown) (no date) (unknown) (unknown) 13. Hyperlipidemia (units unknown) (unknown) (unknown) (no date) (unknown) (unknown) 17:25 21:32 04:39 (units unknown) (unknown) (unknown) (no date) (unknown) (unknown) [id number] (units unknown) (unknown) (unknown) (no date) (unknown) (unknown) 2. Acute on chronic systolic congestive heart failure exacerbation (units unknown) (unknown) (unknown) (no date) (unknown) (unknown) 3. COPD exacerbation , likely secondary to metapneumovirus infection (units unknown) (unknown) (unknown) (no date) (unknown) (unknown) 4. Metapneumovirus infection (units unknown) (unknown) (unknown) (no date) (unknown) (unknown) 5. Coronary artery disease with prior DC (units unknown) (unknown) (unknown) (no date) (unknown) (unknown) 6. History of cardia c arrest, status post pacemaker/AICD placement (units unknown) (unknown) (unknown) (no date) (unknown) (unknown) 7. Atrial fibrillation on chronic anticoagulation with Eliquis (units unknown) (unknown) (unknown) (no date) (unknown) (unknown) 8. Diabetes mellitus type 2 (units unknown) (unknown) (unknown) (no date) (unknown) (unknown) 9. Class 3 obesity with BMI of 42.2 (units unknown) (unknown) (unknown) (no date) (unknown) (unknown) ABD: Firm, obese, nontender, nondistended, bowel sounds present in all 4 (units unknown) (unknown) (unknown) (no date) (unknown) (unknown) ABG Base Excess 24.0 H (units unknown) (unknown) (unknown) (no date) (unknown) (unknown) ABG Base Excess (units unknown) (unknown) (unknown) (no date) (unknown) (unknown) ABG HCO3 48 H (units unknown) (unknown) (unknown) (no date) (unknown) (unknown) ABG HCO3 (units unknown) (unknown) (unknown) (no date) (unknown) (unknown) ABG O2 Saturation 84 L* (units unknown) (unknown) (unknown) (no date) (unknown) (unknown) ABG O2 Saturation (units unknown) (unknown) (unknown) (no date) (unknown) (unknown) ABG Total CO2 50 H (units unknown) (unknown) (unknown) (no date) (unknown) (unknown) ABG Total CO2 (units unknown) (unknown) (unknown) (no date) (unknown) (unknown) ABG pCO2 69.4 H* (units unknown) (unknown) (unknown) (no date) (unknown) (unknown) ABG pCO2 (units unknown) (unknown) (unknown) (no date) (unknown) (unknown) ABG pH 7.45 (units unknown) (unknown) (unknown) (no date) (unknown) (unknown) ABG pH (units unknown) (unknown) (unknown) (no date) (unknown) (unknown) ABG pO2 50 L (units unknown) (unknown) (unknown) (no date) (unknown) (unknown) ABG pO2 (units unknown) (unknown) (unknown) (no date) (unknown) (unknown) ALT 74 H (units unknown) (unknown) (unknown) (no date) (unknown) (unknown) ALT (units unknown) (unknown) (unknown) (no date) (unknown) (unknown) AST 31 (units unknown) (unknown) (unknown) (no date) (unknown) (unknown) AST (units unknown) (unknown) (unknown) (no date) (unknown) (unknown) Adenovirus (PCR) Not detected (units unknown) (unknown) (unknown) (no date) (unknown) (unknown) Adenovirus (PCR) (units unknown) (unknown) (unknown) (no date) (unknown) (unknown) Admit to ICU with eICU consult. I personally spoke with Dr. Medeiros. (units unknown) (unknown) (unknown) (no date) (unknown) (unknown) Age/Sex: 57 / F (units unknown) (unknown) (unknown) (no date) (unknown) (unknown) Albumin 3.8 (units unknown) (unknown) (unknown) (no date) (unknown) (unknown) Albumin (units unknown) (unknown) (unknown) (no date) (unknown) (unknown) Albumin/Globulin Ratio 1.2 (units unknown) (unknown) (unknown) (no date) (unknown) (unknown) Albumin/Globulin Ratio (units unknown) (unknown) (unknown) (no date) (unknown) (unknown) Alkaline Phosphatase 83 (units unknown) (unknown) (unknown) (no date) (unknown) (unknown) Alkaline Phosphatase (units unknown) (unknown) (unknown) (no date) (unknown) (unknown) Appears to be on Eliquis chronically. Await medication reconciliation (units unknown) (unknown) (unknown) (no date) (unknown) (unknown) As noted, outside documentation shows history of CKD 3. However here her GFR (units unknown) (unknown) (unknown) (no date) (unknown) (unknown) Assessment + Plan narrative: (units unknown) (unknown) (unknown) (no date) (unknown) (unknown) Assessment + Plan (units unknown) (unknown) (unknown) (no date) (unknown) (unknown) Await medication reconciliation to confirm meds. (units unknown) (unknown) (unknown) (no date) (unknown) (unknown) B. pertussis DNA (PCR) Not detected (units unknown) (unknown) (unknown) (no date) (unknown) (unknown) B. pertussis DNA (PCR) (units unknown) (unknown) (unknown) (no date) (unknown) (unknown) B.parapertussis DNA PCR Not detected (units unknown) (unknown) (unknown) (no date) (unknown) (unknown) B.parapertussis DNA PCR (units unknown) (unknown) (unknown) (no date) (unknown) (unknown) BUN 41 H (units unknown) (unknown) (unknown) (no date) (unknown) (unknown) BUN 42 H (units unknown) (unknown) (unknown) (no date) (unknown) (unknown) BUN (units unknown) (unknown) (unknown) (no date) (unknown) (unknown) BUN/Creatinine Ratio 33.1 H (units unknown) (unknown) (unknown) (no date) (unknown) (unknown) BUN/Creatinine Ratio 51.3 H (units unknown) (unknown) (unknown) (no date) (unknown) (unknown) BUN/Creatinine Ratio (units unknown) (unknown) (unknown) (no date) (unknown) (unknown) Baso # (Auto) 0 (units unknown) (unknown) (unknown) (no date) (unknown) (unknown) Baso # (Auto) (units unknown) (unknown) (unknown) (no date) (unknown) (unknown) Baso % (Auto) 0.1 (units unknown) (unknown) (unknown) (no date) (unknown) (unknown) Baso % (Auto) (units unknown) (unknown) (unknown) (no date) (unknown) (unknown) Blood Pressure 103/62 (units unknown) (unknown) (unknown) (no date) (unknown) (unknown) Blood Pressure 110/5 4 L (units unknown) (unknown) (unknown) (no date) (unknown) (unknown) Blood Pressure 120/5 7 L (units unknown) (unknown) (unknown) (no date) (unknown) (unknown) Blood Pressure 121/7 7 125/60 (units unknown) (unknown) (unknown) (no date) (unknown) (unknown) Blood Pressure 122/5 7 L (units unknown) (unknown) (unknown) (no date) (unknown) (unknown) Blood Pressure 123/5 6 L (units unknown) (unknown) (unknown) (no date) (unknown) (unknown) Blood Pressure 128/5 6 L (units unknown) (unknown) (unknown) (no date) (unknown) (unknown) Blood Pressure 132/5 8 L (units unknown) (unknown) (unknown) (no date) (unknown) (unknown) Blood Pressure 132/6 0 133/60 (units unknown) (unknown) (unknown) (no date) (unknown) (unknown) Blood Pressure 135/62 (units unknown) (unknown) (unknown) (no date) (unknown) (unknown) Blood Pressure 136/6 3 145/67 H (units unknown) (unknown) (unknown) (no date) (unknown) (unknown) Blood Pressure 142/7 2 H (units unknown) (unknown) (unknown) (no date) (unknown) (unknown) Blood Pressure 151/6 6 H (units unknown) (unknown) (unknown) (no date) (unknown) (unknown) Blood Pressure (units unknown) (unknown) (unknown) (no date) (unknown) (unknown) Blood pressures are normotensive here. Await medication reconciliation to (units unknown) (unknown) (unknown) (no date) (unknown) (unknown) CHEST: Respiratory excursions symmetric, diffuse wheezes and coarse breath (units unknown) (unknown) (unknown) (no date) (unknown) (unknown) CK-MB (CK-2) Rel Index TNP (units unknown) (unknown) (unknown) (no date) (unknown) (unknown) CK-MB (CK-2) Rel Index (units unknown) (unknown) (unknown) (no date) (unknown) (unknown) CK-MB (CK-2) TNP (units unknown) (unknown) (unknown) (no date) (unknown) (unknown) CK-MB (CK-2) (units unknown) (unknown) (unknown) (no date) (unknown) (unknown) COPD (chronic obstructive pulmonary disease) (units unknown) (unknown) (unknown) (no date) (unknown) (unknown) CV: Regular rate and rhythm, no murmurs, rubs, gallops, PMI can not be palpated (units unknown) (unknown) (unknown) (no date) (unknown) (unknown) Calcium 8.7 (units unknown) (unknown) (unknown) (no date) (unknown) (unknown) Calcium 9.5 (units unknown) (unknown) (unknown) (no date) (unknown) (unknown) Calcium (units unknown) (unknown) (unknown) (no date) (unknown) (unknown) Cannula (units unknown) (unknown) (unknown) (no date) (unknown) (unknown) Carbon Dioxide 38 H (units unknown) (unknown) (unknown) (no date) (unknown) (unknown) Carbon Dioxide 39 H (units unknown) (unknown) (unknown) (no date) (unknown) (unknown) Carbon Dioxide (units unknown) (unknown) (unknown) (no date) (unknown) (unknown) Chlamy pneumoniae PC R Not detected (units unknown) (unknown) (unknown) (no date) (unknown) (unknown) Chlamy pneumoniae PCR (units unknown) (unknown) (unknown) (no date) (unknown) (unknown) Chloride 90 L (units unknown) (unknown) (unknown) (no date) (unknown) (unknown) Chloride (units unknown) (unknown) (unknown) (no date) (unknown) (unknown) Code status (units unknown) (unknown) (unknown) (no date) (unknown) (unknown) Congestive heart failure noted on chest x-ray as well as on previous imaging (units unknown) (unknown) (unknown) (no date) (unknown) (unknown) Continue diuresis as noted above with IV Lasix and Diamox. She does have (units unknown) (unknown) (unknown) (no date) (unknown) (unknown) Continue her outpatient respiratory medications. As noted, continue IV Solu (units unknown) (unknown) (unknown) (no date) (unknown) (unknown) Coronavirus 229E (PCR) Not detected (units unknown) (unknown) (unknown) (no date) (unknown) (unknown) Coronavirus 229E (PCR) (units unknown) (unknown) (unknown) (no date) (unknown) (unknown) Coronavirus HKU1 (PCR) Not detected (units unknown) (unknown) (unknown) (no date) (unknown) (unknown) Coronavirus HKU1 (PCR) (units unknown) (unknown) (unknown) (no date) (unknown) (unknown) Coronavirus NL63 (PCR) Not detected (units unknown) (unknown) (unknown) (no date) (unknown) (unknown) Coronavirus NL63 (PCR) (units unknown) (unknown) (unknown) (no date) (unknown) (unknown) Coronavirus OC43 (PCR) Not detected (units unknown) (unknown) (unknown) (no date) (unknown) (unknown) Coronavirus OC43 (PCR) (units unknown) (unknown) (unknown) (no date) (unknown) (unknown) Creatinine 0.80 (units unknown) (unknown) (unknown) (no date) (unknown) (unknown) Creatinine 1.27 H (units unknown) (unknown) (unknown) (no date) (unknown) (unknown) Creatinine (units unknown) (unknown) (unknown) (no date) (unknown) (unknown) Critical Care time: (units unknown) (unknown) (unknown) (no date) (unknown) (unknown) : 1965 Acct:[id number] (units unknown) (unknown) (unknown) (no date) (unknown) (unknown) Date of Service: 07/24/22 (units unknown) (unknown) (unknown) (no date) (unknown) (unknown) Disposition (units unknown) (unknown) (unknown) (no date) (unknown) (unknown) EXTR: Warm, well perfused, no clubbing/cyanosis/whit ma (units unknown) (unknown) (unknown) (no date) (unknown) (unknown) Entero/Rhino (PCR) Not detected (units unknown) (unknown) (unknown) (no date) (unknown) (unknown) Entero/Rhino (PCR) (units unknown) (unknown) (unknown) (no date) (unknown) (unknown) Eos # (Auto) 0 (units unknown) (unknown) (unknown) (no date) (unknown) (unknown) Eos # (Auto) (units unknown) (unknown) (unknown) (no date) (unknown) (unknown) Eos % (Auto) 0.0 L (units unknown) (unknown) (unknown) (no date) (unknown) (unknown) Eos % (Auto) (units unknown) (unknown) (unknown) (no date) (unknown) (unknown) Estimated GFR > 60 (units unknown) (unknown) (unknown) (no date) (unknown) (unknown) Estimated GFR 49 L (units unknown) (unknown) (unknown) (no date) (unknown) (unknown) Estimated GFR (units unknown) (unknown) (unknown) (no date) (unknown) (unknown) Exam Narrative: (units unknown) (unknown) (unknown) (no date) (unknown) (unknown) Exam (units unknown) (unknown) (unknown) (no date) (unknown) (unknown) FiO2 40 (units unknown) (unknown) (unknown) (no date) (unknown) (unknown) FiO2 (units unknown) (unknown) (unknown) (no date) (unknown) (unknown) Fraction of Inspired Oxygen 36 (units unknown) (unknown) (unknown) (no date) (unknown) (unknown) Full (units unknown) (unknown) (unknown) (no date) (unknown) (unknown) GEN: Acutely and chronically ill-appearing middle-aged female, drowsy but (units unknown) (unknown) (unknown) (no date) (unknown) (unknown) Globulin 3.2 (units unknown) (unknown) (unknown) (no date) (unknown) (unknown) Globulin (units unknown) (unknown) (unknown) (no date) (unknown) (unknown) Glucose 248 H (units unknown) (unknown) (unknown) (no date) (unknown) (unknown) Glucose 290 H D (units unknown) (unknown) (unknown) (no date) (unknown) (unknown) Glucose 502 H* D (units unknown) (unknown) (unknown) (no date) (unknown) (unknown) Glucose (units unknown) (unknown) (unknown) (no date) (unknown) (unknown) HEENT: Normocephalic , face symmetric, pupils equal round reactive to light, (units unknown) (unknown) (unknown) (no date) (unknown) (unknown) Hct 46.5 H (units unknown) (unknown) (unknown) (no date) (unknown) (unknown) Hct 48.5 H (units unknown) (unknown) (unknown) (no date) (unknown) (unknown) Hct (units unknown) (unknown) (unknown) (no date) (unknown) (unknown) Her obesity puts her at significant risk of morbidity and mortality. Would (units unknown) (unknown) (unknown) (no date) (unknown) (unknown) Hgb 15.2 (units unknown) (unknown) (unknown) (no date) (unknown) (unknown) Hgb 15.8 (units unknown) (unknown) (unknown) (no date) (unknown) (unknown) Hgb (units unknown) (unknown) (unknown) (no date) (unknown) (unknown) Human Metapneumovir PCR Detected H (units unknown) (unknown) (unknown) (no date) (unknown) (unknown) Human Metapneumovir PCR (units unknown) (unknown) (unknown) (no date) (unknown) (unknown) I spent a total of [ ] minutes of critical care time on this patient's care (units unknown) (unknown) (unknown) (no date) (unknown) (unknown) ICU status. Echo pending. (units unknown) (unknown) (unknown) (no date) (unknown) (unknown) Influenza Type A (PCR) Not detected (units unknown) (unknown) (unknown) (no date) (unknown) (unknown) Influenza Type A (PCR) (units unknown) (unknown) (unknown) (no date) (unknown) (unknown) Influenza Type B (PCR) Not detected (units unknown) (unknown) (unknown) (no date) (unknown) (unknown) Influenza Type B (PCR) (units unknown) (unknown) (unknown) (no date) (unknown) (unknown) Interval history: (units unknown) (unknown) (unknown) (no date) (unknown) (unknown) [address] [id number] (units unknown) (unknown) (unknown) (no date) (unknown) (unknown) Laboratory Results - last 24 hr (units unknown) (unknown) (unknown) (no date) (unknown) (unknown) Labs (units unknown) (unknown) (unknown) (no date) (unknown) (unknown) Labs: (units unknown) (unknown) (unknown) (no date) (unknown) (unknown) Lactate 2.2 H 2.2 H (units unknown) (unknown) (unknown) (no date) (unknown) (unknown) Lactate (units unknown) (unknown) (unknown) (no date) (unknown) (unknown) Lipase 43 (units unknown) (unknown) (unknown) (no date) (unknown) (unknown) Lipase (units unknown) (unknown) (unknown) (no date) (unknown) (unknown) Lymph # (Auto) 1000 L (units unknown) (unknown) (unknown) (no date) (unknown) (unknown) Lymph # (Auto) 600 L (units unknown) (unknown) (unknown) (no date) (unknown) (unknown) Lymph # (Auto) (units unknown) (unknown) (unknown) (no date) (unknown) (unknown) Lymph % (Auto) 3.7 L (units unknown) (unknown) (unknown) (no date) (unknown) (unknown) Lymph % (Auto) 5.0 L (units unknown) (unknown) (unknown) (no date) (unknown) (unknown) Lymph % (Auto) (units unknown) (unknown) (unknown) (no date) (unknown) (unknown) M. pneumoniae (PCR) Not detected (units unknown) (unknown) (unknown) (no date) (unknown) (unknown) M. pneumoniae (PCR) (units unknown) (unknown) (unknown) (no date) (unknown) (unknown) MCH 30.9 (units unknown) (unknown) (unknown) (no date) (unknown) (unknown) MCH (units unknown) (unknown) (unknown) (no date) (unknown) (unknown) MCHC 32.6 (units unknown) (unknown) (unknown) (no date) (unknown) (unknown) MCHC 32.7 (units unknown) (unknown) (unknown) (no date) (unknown) (unknown) MCHC (units unknown) (unknown) (unknown) (no date) (unknown) (unknown) MCV 94.5 (units unknown) (unknown) (unknown) (no date) (unknown) (unknown) MCV 94.8 (units unknown) (unknown) (unknown) (no date) (unknown) (unknown) MCV (units unknown) (unknown) (unknown) (no date) (unknown) (unknown) Magnesium 2.3 (units unknown) (unknown) (unknown) (no date) (unknown) (unknown) Magnesium (units unknown) (unknown) (unknown) (no date) (unknown) (unknown) Medical History (units unknown) (unknown) (unknown) (no date) (unknown) (unknown) Medrol 80 mg q.12. Will start budesonide as well. Duo nebs 4 times daily (units unknown) (unknown) (unknown) (no date) (unknown) (unknown) [place] # (Auto) 1400 H (units unknown) (unknown) (unknown) (no date) (unknown) (unknown) [place] # (Auto) 800 (units unknown) (unknown) (unknown) (no date) (unknown) (unknown) [place] # (Auto) (units unknown) (unknown) (unknown) (no date) (unknown) (unknown) [place] % (Auto) 4.6 (units unknown) (unknown) (unknown) (no date) (unknown) (unknown) [place] % (Auto) 7.0 (units unknown) (unknown) (unknown) (no date) (unknown) (unknown) [place] % (Auto) (units unknown) (unknown) (unknown) (no date) (unknown) (unknown) NECK: Supple, no lymphadenopathy, can not palpate any thyroid nodularity, (units unknown) (unknown) (unknown) (no date) (unknown) (unknown) NEURO: Drowsy, follows simple commands, ears grossly intact (units unknown) (unknown) (unknown) (no date) (unknown) (unknown) NT-Pro-B Natriuret Pep 2860 H (units unknown) (unknown) (unknown) (no date) (unknown) (unknown) NT-Pro-B Natriuret Pep (units unknown) (unknown) (unknown) (no date) (unknown) (unknown) Narrative (units unknown) (unknown) (unknown) (no date) (unknown) (unknown) Nasal Screen MRSA (PCR) Not detected (units unknown) (unknown) (unknown) (no date) (unknown) (unknown) Nasal Screen MRSA (PCR) (units unknown) (unknown) (unknown) (no date) (unknown) (unknown) Neut # (Auto) 78051 H (units unknown) (unknown) (unknown) (no date) (unknown) (unknown) Neut # (Auto) 84922 H (units unknown) (unknown) (unknown) (no date) (unknown) (unknown) Neut # (Auto) (units unknown) (unknown) (unknown) (no date) (unknown) (unknown) Neut % (Auto) 87.9 H (units unknown) (unknown) (unknown) (no date) (unknown) (unknown) Neut % (Auto) 91.6 H (units unknown) (unknown) (unknown) (no date) (unknown) (unknown) Neut % (Auto) (units unknown) (unknown) (unknown) (no date) (unknown) (unknown) No RVR at this time. Regular on exam. Await medication reconciliation to (units unknown) (unknown) (unknown) (no date) (unknown) (unknown) Objective (units unknown) (unknown) (unknown) (no date) (unknown) (unknown) On oral medications only per report. A1c at the outside facility was reported (units unknown) (unknown) (unknown) (no date) (unknown) (unknown) Oxygen Delivery Method High Flow Nasal Cannula (units unknown) (unknown) (unknown) (no date) (unknown) (unknown) Oxygen Delivery Method High Flow Nasal (units unknown) (unknown) (unknown) (no date) (unknown) (unknown) Oxygen Delivery Method (units unknown) (unknown) (unknown) (no date) (unknown) (unknown) Oxygen Flow Rate 4 4 4 (units unknown) (unknown) (unknown) (no date) (unknown) (unknown) Oxygen Flow Rate 4 4 (units unknown) (unknown) (unknown) (no date) (unknown) (unknown) Oxygen Flow Rate 4 (units unknown) (unknown) (unknown) (no date) (unknown) (unknown) Oxygen Flow Rate (units unknown) (unknown) (unknown) (no date) (unknown) (unknown) PFSH (units unknown) (unknown) (unknown) (no date) (unknown) (unknown) PSYCH: Mood, affect, judgment, and insight can not be assessed (units unknown) (unknown) (unknown) (no date) (unknown) (unknown) Parainfluenza 1 (PCR ) Not detected (units unknown) (unknown) (unknown) (no date) (unknown) (unknown) Parainfluenza 1 (PCR) (units unknown) (unknown) (unknown) (no date) (unknown) (unknown) Parainfluenza 2 (PCR ) Not detected (units unknown) (unknown) (unknown) (no date) (unknown) (unknown) Parainfluenza 2 (PCR) (units unknown) (unknown) (unknown) (no date) (unknown) (unknown) Parainfluenza 3 (PCR ) Not detected (units unknown) (unknown) (unknown) (no date) (unknown) (unknown) Parainfluenza 3 (PCR) (units unknown) (unknown) (unknown) (no date) (unknown) (unknown) Parainfluenza 4 (PCR ) Not detected (units unknown) (unknown) (unknown) (no date) (unknown) (unknown) Parainfluenza 4 (PCR) (units unknown) (unknown) (unknown) (no date) (unknown) (unknown) Patient needed bipap briefly this morning but now off. Able to downgrade from (units unknown) (unknown) (unknown) (no date) (unknown) (unknown) Patient presents after leaving outside hospital Against Medical Advice after a 5 (units unknown) (unknown) (unknown) (no date) (unknown) (unknown) Patient: Ester Benavides MR#: [id number] (units unknown) (unknown) (unknown) (no date) (unknown) (unknown) Per outside records, she reports receiving a shock a couple of times a year. I (units unknown) (unknown) (unknown) (no date) (unknown) (unknown) Plt Count 264 (units unknown) (unknown) (unknown) (no date) (unknown) (unknown) Plt Count 320 (units unknown) (unknown) (unknown) (no date) (unknown) (unknown) Plt Count (units unknown) (unknown) (unknown) (no date) (unknown) (unknown) Potassium 4.1 (units unknown) (unknown) (unknown) (no date) (unknown) (unknown) Potassium 4.2 (units unknown) (unknown) (unknown) (no date) (unknown) (unknown) Potassium (units unknown) (unknown) (unknown) (no date) (unknown) (unknown) Procalcitonin 0.06 (units unknown) (unknown) (unknown) (no date) (unknown) (unknown) Procalcitonin (units unknown) (unknown) (unknown) (no date) (unknown) (unknown) Progress Note (units unknown) (unknown) (unknown) (no date) (unknown) (unknown) Prophylaxis (units unknown) (unknown) (unknown) (no date) (unknown) (unknown) Provider: Jerald Sanches D.O. (units unknown) (unknown) (unknown) (no date) (unknown) (unknown) Pulse Oximetry 90 L 91 (units unknown) (unknown) (unknown) (no date) (unknown) (unknown) Pulse Oximetry 90 L 92 (units unknown) (unknown) (unknown) (no date) (unknown) (unknown) Pulse Oximetry 90 L (units unknown) (unknown) (unknown) (no date) (unknown) (unknown) Pulse Oximetry 92 92 (units unknown) (unknown) (unknown) (no date) (unknown) (unknown) Pulse Oximetry 93 92 (units unknown) (unknown) (unknown) (no date) (unknown) (unknown) Pulse Oximetry 93 96 (units unknown) (unknown) (unknown) (no date) (unknown) (unknown) Pulse Oximetry 94 92 (units unknown) (unknown) (unknown) (no date) (unknown) (unknown) Pulse Oximetry 94 94 (units unknown) (unknown) (unknown) (no date) (unknown) (unknown) Pulse Oximetry 95 95 (units unknown) (unknown) (unknown) (no date) (unknown) (unknown) Pulse Oximetry 95 (units unknown) (unknown) (unknown) (no date) (unknown) (unknown) Pulse Oximetry 96 96 (units unknown) (unknown) (unknown) (no date) (unknown) (unknown) Pulse Oximetry 97 92 (units unknown) (unknown) (unknown) (no date) (unknown) (unknown) Pulse Rate 60 60 (units unknown) (unknown) (unknown) (no date) (unknown) (unknown) Pulse Rate 60 62 (units unknown) (unknown) (unknown) (no date) (unknown) (unknown) Pulse Rate 60 (units unknown) (unknown) (unknown) (no date) (unknown) (unknown) Pulse Rate 68 61 (units unknown) (unknown) (unknown) (no date) (unknown) (unknown) RBC 4.92 (units unknown) (unknown) (unknown) (no date) (unknown) (unknown) RBC 5.11 (units unknown) (unknown) (unknown) (no date) (unknown) (unknown) RBC (units unknown) (unknown) (unknown) (no date) (unknown) (unknown) RDW 13.9 (units unknown) (unknown) (unknown) (no date) (unknown) (unknown) RDW 14.0 (units unknown) (unknown) (unknown) (no date) (unknown) (unknown) RDW (units unknown) (unknown) (unknown) (no date) (unknown) (unknown) RSV (PCR) Not detected (units unknown) (unknown) (unknown) (no date) (unknown) (unknown) RSV (PCR) (units unknown) (unknown) (unknown) (no date) (unknown) (unknown) Respiratory Rate 20 35 H (units unknown) (unknown) (unknown) (no date) (unknown) (unknown) Respiratory Rate 22 24 (units unknown) (unknown) (unknown) (no date) (unknown) (unknown) Respiratory Rate 24 28 H (units unknown) (unknown) (unknown) (no date) (unknown) (unknown) Respiratory Rate 24 (units unknown) (unknown) (unknown) (no date) (unknown) (unknown) Respiratory Rate 25 H 26 H (units unknown) (unknown) (unknown) (no date) (unknown) (unknown) Respiratory Rate 26 H 27 H (units unknown) (unknown) (unknown) (no date) (unknown) (unknown) Respiratory Rate 26 H (units unknown) (unknown) (unknown) (no date) (unknown) (unknown) Respiratory Rate 28 H 25 H (units unknown) (unknown) (unknown) (no date) (unknown) (unknown) Respiratory Rate 30 H 27 H (units unknown) (unknown) (unknown) (no date) (unknown) (unknown) Respiratory Rate 31 H 26 H (units unknown) (unknown) (unknown) (no date) (unknown) (unknown) Respiratory Rate 31 H (units unknown) (unknown) (unknown) (no date) (unknown) (unknown) Respiratory Rate 33 H 26 H (units unknown) (unknown) (unknown) (no date) (unknown) (unknown) Respiratory Rate 34 H 32 H (units unknown) (unknown) (unknown) (no date) (unknown) (unknown) SARS-CoV-2 (PCR) Not detected (units unknown) (unknown) (unknown) (no date) (unknown) (unknown) SARS-CoV-2 (PCR) (units unknown) (unknown) (unknown) (no date) (unknown) (unknown) SKIN: Warm and dry, without rash (units unknown) (unknown) (unknown) (no date) (unknown) (unknown) SaO2/FiO2 Ratio 250 (units unknown) (unknown) (unknown) (no date) (unknown) (unknown) She tested positive both at the outside hospital and on today's labs. She is (units unknown) (unknown) (unknown) (no date) (unknown) (unknown) Signed By: (units unknown) (unknown) (unknown) (no date) (unknown) (unknown) Smoking Status: Current every day smoker (units unknown) (unknown) (unknown) (no date) (unknown) (unknown) Social History (units unknown) (unknown) (unknown) (no date) (unknown) (unknown) Sodium 136 L (units unknown) (unknown) (unknown) (no date) (unknown) (unknown) Sodium 137 (units unknown) (unknown) (unknown) (no date) (unknown) (unknown) Sodium (units unknown) (unknown) (unknown) (no date) (unknown) (unknown) Subjective (units unknown) (unknown) (unknown) (no date) (unknown) (unknown) Temperature 97.0 F L (units unknown) (unknown) (unknown) (no date) (unknown) (unknown) Temperature 97.7 F (units unknown) (unknown) (unknown) (no date) (unknown) (unknown) Temperature (units unknown) (unknown) (unknown) (no date) (unknown) (unknown) Time Spent With Patient (units unknown) (unknown) (unknown) (no date) (unknown) (unknown) Total Bilirubin 0.7 (units unknown) (unknown) (unknown) (no date) (unknown) (unknown) Total Bilirubin (units unknown) (unknown) (unknown) (no date) (unknown) (unknown) Total Creatine Kinas e 36 (units unknown) (unknown) (unknown) (no date) (unknown) (unknown) Total Creatine Kinase (units unknown) (unknown) (unknown) (no date) (unknown) (unknown) Total Protein 7.0 (units unknown) (unknown) (unknown) (no date) (unknown) (unknown) Total Protein (units unknown) (unknown) (unknown) (no date) (unknown) (unknown) Troponin I < 0.012 (units unknown) (unknown) (unknown) (no date) (unknown) (unknown) Troponin I (units unknown) (unknown) (unknown) (no date) (unknown) (unknown) Troponin here is negative. Await medication reconciliation. (units unknown) (unknown) (unknown) (no date) (unknown) (unknown) URI symptoms for the duration of her hospitalization at the outside hospital. (units unknown) (unknown) (unknown) (no date) (unknown) (unknown) Vital Signs (units unknown) (unknown) (unknown) (no date) (unknown) (unknown) WBC 17.1 H (units unknown) (unknown) (unknown) (no date) (unknown) (unknown) WBC 20.6 H (units unknown) (unknown) (unknown) (no date) (unknown) (unknown) WBC (units unknown) (unknown) (unknown) (no date) (unknown) (unknown) [Embedded Image Not Available] (units unknown) (unknown) (unknown) (no date) (unknown) (unknown) afebrile. She does have a leukocytosis but this is likely steroid induced (units unknown) (unknown) (unknown) (no date) (unknown) (unknown) also report of CKD 3 , but here her creatinine is normal at 0.8. We will monitor (units unknown) (unknown) (unknown) (no date) (unknown) (unknown) am uncertain when e last had her device interrogated. (units unknown) (unknown) (unknown) (no date) (unknown) (unknown) and creatinine are normal. Will monitor. (units unknown) (unknown) (unknown) (no date) (unknown) (unknown) bipap but now on 3L NC. Lasix and diamox stopped on 06/27 due to uptrending Cr. (units unknown) (unknown) (unknown) (no date) (unknown) (unknown) carotid arteries can not be heard over the BiPAP and respiratory noises (units unknown) (unknown) (unknown) (no date) (unknown) (unknown) confirm meds. (units unknown) (unknown) (unknown) (no date) (unknown) (unknown) confirm that she is indeed taking Eliquis at this time. (units unknown) (unknown) (unknown) (no date) (unknown) (unknown) day hospital stay. While there, she received diuresis, fluid restriction, IV (units unknown) (unknown) (unknown) (no date) (unknown) (unknown) department, she was hypoxic with room air saturations of 70%, tachypneic, and (units unknown) (unknown) (unknown) (no date) (unknown) (unknown) dependence, as I suspect she also has a component of obesity hypoventilation (units unknown) (unknown) (unknown) (no date) (unknown) (unknown) done at the outside hospital. No echocardiogram available in records to denote (units unknown) (unknown) (unknown) (no date) (unknown) (unknown) extraocular movement s intact, sclerae anicteric, conjunctiva clear, (units unknown) (unknown) (unknown) (no date) (unknown) (unknown) furosemide 40 mg IV b.i.d. and Solu-Medrol 80 mg IV q.12. Initially required (units unknown) (unknown) (unknown) (no date) (unknown) (unknown) greatly benefit from weight reduction. (units unknown) (unknown) (unknown) (no date) (unknown) (unknown) heart failure. Exam also indicates a component of COPD exacerbation. Received (units unknown) (unknown) (unknown) (no date) (unknown) (unknown) her renal function closely. Ballard catheter will be placed. (units unknown) (unknown) (unknown) (no date) (unknown) (unknown) household members: spouse (units unknown) (unknown) (unknown) (no date) (unknown) (unknown) labs at the outside hospital. We will continue close monitoring. There is (units unknown) (unknown) (unknown) (no date) (unknown) (unknown) lives independently: Yes (units unknown) (unknown) (unknown) (no date) (unknown) (unknown) noting severe respiratory distress. Chest x-ray reveals evidence of congestive (units unknown) (unknown) (unknown) (no date) (unknown) (unknown) oropharyngeal exam can not be performed secondary to having BiPAP in place (units unknown) (unknown) (unknown) (no date) (unknown) (unknown) presently complainin g of any pain. Would avoid opioids for now given her BiPAP (units unknown) (unknown) (unknown) (no date) (unknown) (unknown) quadrants, body habitus limits exam (units unknown) (unknown) (unknown) (no date) (unknown) (unknown) rather than related to an infection as she was afebrile and not complaining of (units unknown) (unknown) (unknown) (no date) (unknown) (unknown) responsive, appears to be oriented to self and situation, no acute distress (units unknown) (unknown) (unknown) (no date) (unknown) (unknown) scheduled (units unknown) (unknown) (unknown) (no date) (unknown) (unknown) significant azotemia with a BUN of 41 today. This appears to be consistent with (units unknown) (unknown) (unknown) (no date) (unknown) (unknown) sounds (units unknown) (unknown) (unknown) (no date) (unknown) (unknown) steroids, and respiratory treatments. Upon arriving to our emergency (units unknown) (unknown) (unknown) (no date) (unknown) (unknown) syndrome. (units unknown) (unknown) (unknown) (no date) (unknown) (unknown) the severity of her congestive heart failure. Will obtain an echocardiogram. (units unknown) (unknown) (unknown) (no date) (unknown) (unknown) to be 8%. Will place on fingersticks and sliding scale. (units unknown) (unknown) (unknown) (no date) (unknown) (unknown) today; this time is exclusive of procedural time. (units unknown) (unknown) (unknown) (no date) (unknown) (unknown) uncertain if she takes chronic opioid medication at baseline. She is not (units unknown) (unknown) Result panel [id number] (unknown) (no date) (unknown) (unknown) (no value) (units unknown) (unknown) (unknown) (no date) (unknown) (unknown) (past 8 hours): (units unknown) (unknown) (unknown) (no date) (unknown) (unknown) 01:01 07/25/22 (units unknown) (unknown) (unknown) (no date) (unknown) (unknown) 01:25 (units unknown) (unknown) (unknown) (no date) (unknown) (unknown) 01:30 07/25/22 (units unknown) (unknown) (unknown) (no date) (unknown) (unknown) 01:38 12:06 12:06 (units unknown) (unknown) (unknown) (no date) (unknown) (unknown) 02:01 07/25/22 (units unknown) (unknown) (unknown) (no date) (unknown) (unknown) 02:01 (units unknown) (unknown) (unknown) (no date) (unknown) (unknown) 02:13 07/25/22 (units unknown) (unknown) (unknown) (no date) (unknown) (unknown) 02:31 07/25/22 (units unknown) (unknown) (unknown) (no date) (unknown) (unknown) 02:31 (units unknown) (unknown) (unknown) (no date) (unknown) (unknown) 07/24/22 07/24/22 07/24/22 (units unknown) (unknown) (unknown) (no date) (unknown) (unknown) 07/24/22 07/24/22 07/25/22 (units unknown) (unknown) (unknown) (no date) (unknown) (unknown) 07/25/22 04:39 (units unknown) (unknown) (unknown) (no date) (unknown) (unknown) 07/25/22 1640 (units unknown) (unknown) (unknown) (no date) (unknown) (unknown) 07/25/22 (units unknown) (unknown) (unknown) (no date) (unknown) (unknown) 03:00 07/25/22 (units unknown) (unknown) (unknown) (no date) (unknown) (unknown) 03:00 (units unknown) (unknown) (unknown) (no date) (unknown) (unknown) 03:05 07/25/22 (units unknown) (unknown) (unknown) (no date) (unknown) (unknown) 03:30 07/25/22 (units unknown) (unknown) (unknown) (no date) (unknown) (unknown) 03:30 (units unknown) (unknown) (unknown) (no date) (unknown) (unknown) 04:00 07/25/22 (units unknown) (unknown) (unknown) (no date) (unknown) (unknown) 04:00 (units unknown) (unknown) (unknown) (no date) (unknown) (unknown) 04:28 07/25/22 (units unknown) (unknown) (unknown) (no date) (unknown) (unknown) 04:30 07/25/22 (units unknown) (unknown) (unknown) (no date) (unknown) (unknown) 04:30 (units unknown) (unknown) (unknown) (no date) (unknown) (unknown) 04:39 (units unknown) (unknown) (unknown) (no date) (unknown) (unknown) 05:01 07/25/22 (units unknown) (unknown) (unknown) (no date) (unknown) (unknown) 05:03 (units unknown) (unknown) (unknown) (no date) (unknown) (unknown) 05:31 07/25/22 (units unknown) (unknown) (unknown) (no date) (unknown) (unknown) 06:01 07/25/22 (units unknown) (unknown) (unknown) (no date) (unknown) (unknown) 06:01 (units unknown) (unknown) (unknown) (no date) (unknown) (unknown) 06:31 07/25/22 (units unknown) (unknown) (unknown) (no date) (unknown) (unknown) 06:31 (units unknown) (unknown) (unknown) (no date) (unknown) (unknown) 06:54 07/25/22 (units unknown) (unknown) (unknown) (no date) (unknown) (unknown) 07:00 07/25/22 (units unknown) (unknown) (unknown) (no date) (unknown) (unknown) 07:00 (units unknown) (unknown) (unknown) (no date) (unknown) (unknown) 07:30 07/25/22 (units unknown) (unknown) (unknown) (no date) (unknown) (unknown) 07:31 07/25/22 (units unknown) (unknown) (unknown) (no date) (unknown) (unknown) 07:31 (units unknown) (unknown) (unknown) (no date) (unknown) (unknown) 08:00 07/25/22 (units unknown) (unknown) (unknown) (no date) (unknown) (unknown) 08:01 07/25/22 (units unknown) (unknown) (unknown) (no date) (unknown) (unknown) 08:01 (units unknown) (unknown) (unknown) (no date) (unknown) (unknown) 08:30 07/25/22 (units unknown) (unknown) (unknown) (no date) (unknown) (unknown) 08:31 07/25/22 (units unknown) (unknown) (unknown) (no date) (unknown) (unknown) 08:31 (units unknown) (unknown) (unknown) (no date) (unknown) (unknown) 1. Acute on chronic hypoxic and hypercarbic respiratory failure, improving (units unknown) (unknown) (unknown) (no date) (unknown) (unknown) 10. Reported CKD stage 3 (units unknown) (unknown) (unknown) (no date) (unknown) (unknown) 11. Chronic pain syndrome (units unknown) (unknown) (unknown) (no date) (unknown) (unknown) 12. Hypertension (units unknown) (unknown) (unknown) (no date) (unknown) (unknown) 12:06 13:06 13:30 (units unknown) (unknown) (unknown) (no date) (unknown) (unknown) 13. Hyperlipidemia (units unknown) (unknown) (unknown) (no date) (unknown) (unknown) 17:25 21:32 04:39 (units unknown) (unknown) (unknown) (no date) (unknown) (unknown) [id number] (units unknown) (unknown) (unknown) (no date) (unknown) (unknown) 2. Acute on chronic systolic congestive heart failure exacerbation (units unknown) (unknown) (unknown) (no date) (unknown) (unknown) 3. COPD exacerbation , likely secondary to metapneumovirus infection (units unknown) (unknown) (unknown) (no date) (unknown) (unknown) 4. Metapneumovirus infection (units unknown) (unknown) (unknown) (no date) (unknown) (unknown) 5. Coronary artery disease with prior DC (units unknown) (unknown) (unknown) (no date) (unknown) (unknown) 6. History of cardia c arrest, status post pacemaker/AICD placement (units unknown) (unknown) (unknown) (no date) (unknown) (unknown) 7. Atrial fibrillation on chronic anticoagulation with Eliquis (units unknown) (unknown) (unknown) (no date) (unknown) (unknown) 8. Diabetes mellitus type 2 (units unknown) (unknown) (unknown) (no date) (unknown) (unknown) 9. Class 3 obesity with BMI of 42.2 (units unknown) (unknown) (unknown) (no date) (unknown) (unknown) ABD: Firm, obese, nontender, nondistended, bowel sounds present in all 4 (units unknown) (unknown) (unknown) (no date) (unknown) (unknown) ABG Base Excess 24.0 H (units unknown) (unknown) (unknown) (no date) (unknown) (unknown) ABG Base Excess (units unknown) (unknown) (unknown) (no date) (unknown) (unknown) ABG HCO3 48 H (units unknown) (unknown) (unknown) (no date) (unknown) (unknown) ABG HCO3 (units unknown) (unknown) (unknown) (no date) (unknown) (unknown) ABG O2 Saturation 84 L* (units unknown) (unknown) (unknown) (no date) (unknown) (unknown) ABG O2 Saturation (units unknown) (unknown) (unknown) (no date) (unknown) (unknown) ABG Total CO2 50 H (units unknown) (unknown) (unknown) (no date) (unknown) (unknown) ABG Total CO2 (units unknown) (unknown) (unknown) (no date) (unknown) (unknown) ABG pCO2 69.4 H* (units unknown) (unknown) (unknown) (no date) (unknown) (unknown) ABG pCO2 (units unknown) (unknown) (unknown) (no date) (unknown) (unknown) ABG pH 7.45 (units unknown) (unknown) (unknown) (no date) (unknown) (unknown) ABG pH (units unknown) (unknown) (unknown) (no date) (unknown) (unknown) ABG pO2 50 L (units unknown) (unknown) (unknown) (no date) (unknown) (unknown) ABG pO2 (units unknown) (unknown) (unknown) (no date) (unknown) (unknown) ALT 74 H (units unknown) (unknown) (unknown) (no date) (unknown) (unknown) ALT (units unknown) (unknown) (unknown) (no date) (unknown) (unknown) AST 31 (units unknown) (unknown) (unknown) (no date) (unknown) (unknown) AST (units unknown) (unknown) (unknown) (no date) (unknown) (unknown) Adenovirus (PCR) Not detected (units unknown) (unknown) (unknown) (no date) (unknown) (unknown) Adenovirus (PCR) (units unknown) (unknown) (unknown) (no date) (unknown) (unknown) Age/Sex: 57 / F (units unknown) (unknown) (unknown) (no date) (unknown) (unknown) Albumin 3.8 (units unknown) (unknown) (unknown) (no date) (unknown) (unknown) Albumin (units unknown) (unknown) (unknown) (no date) (unknown) (unknown) Albumin/Globulin Ratio 1.2 (units unknown) (unknown) (unknown) (no date) (unknown) (unknown) Albumin/Globulin Ratio (units unknown) (unknown) (unknown) (no date) (unknown) (unknown) Alkaline Phosphatase 83 (units unknown) (unknown) (unknown) (no date) (unknown) (unknown) Alkaline Phosphatase (units unknown) (unknown) (unknown) (no date) (unknown) (unknown) As noted, outside documentation shows history of CKD 3. However here her GFR (units unknown) (unknown) (unknown) (no date) (unknown) (unknown) Assessment + Plan narrative: (units unknown) (unknown) (unknown) (no date) (unknown) (unknown) Assessment + Plan (units unknown) (unknown) (unknown) (no date) (unknown) (unknown) B. pertussis DNA (PCR) Not detected (units unknown) (unknown) (unknown) (no date) (unknown) (unknown) B. pertussis DNA (PCR) (units unknown) (unknown) (unknown) (no date) (unknown) (unknown) B.parapertussis DNA PCR Not detected (units unknown) (unknown) (unknown) (no date) (unknown) (unknown) B.parapertussis DNA PCR (units unknown) (unknown) (unknown) (no date) (unknown) (unknown) BUN 41 H (units unknown) (unknown) (unknown) (no date) (unknown) (unknown) BUN 42 H (units unknown) (unknown) (unknown) (no date) (unknown) (unknown) BUN (units unknown) (unknown) (unknown) (no date) (unknown) (unknown) BUN/Creatinine Ratio 33.1 H (units unknown) (unknown) (unknown) (no date) (unknown) (unknown) BUN/Creatinine Ratio 51.3 H (units unknown) (unknown) (unknown) (no date) (unknown) (unknown) BUN/Creatinine Ratio (units unknown) (unknown) (unknown) (no date) (unknown) (unknown) Baso # (Auto) 0 (units unknown) (unknown) (unknown) (no date) (unknown) (unknown) Baso # (Auto) (units unknown) (unknown) (unknown) (no date) (unknown) (unknown) Baso % (Auto) 0.1 (units unknown) (unknown) (unknown) (no date) (unknown) (unknown) Baso % (Auto) (units unknown) (unknown) (unknown) (no date) (unknown) (unknown) Blood Pressure 103/62 (units unknown) (unknown) (unknown) (no date) (unknown) (unknown) Blood Pressure 110/5 4 L (units unknown) (unknown) (unknown) (no date) (unknown) (unknown) Blood Pressure 120/5 7 L (units unknown) (unknown) (unknown) (no date) (unknown) (unknown) Blood Pressure 121/7 7 125/60 (units unknown) (unknown) (unknown) (no date) (unknown) (unknown) Blood Pressure 122/5 7 L (units unknown) (unknown) (unknown) (no date) (unknown) (unknown) Blood Pressure 123/5 6 L (units unknown) (unknown) (unknown) (no date) (unknown) (unknown) Blood Pressure 128/5 6 L (units unknown) (unknown) (unknown) (no date) (unknown) (unknown) Blood Pressure 132/5 8 L (units unknown) (unknown) (unknown) (no date) (unknown) (unknown) Blood Pressure 132/6 0 133/60 (units unknown) (unknown) (unknown) (no date) (unknown) (unknown) Blood Pressure 135/62 (units unknown) (unknown) (unknown) (no date) (unknown) (unknown) Blood Pressure 136/6 3 145/67 H (units unknown) (unknown) (unknown) (no date) (unknown) (unknown) Blood Pressure 142/7 2 H (units unknown) (unknown) (unknown) (no date) (unknown) (unknown) Blood Pressure 151/6 6 H (units unknown) (unknown) (unknown) (no date) (unknown) (unknown) Blood Pressure (units unknown) (unknown) (unknown) (no date) (unknown) (unknown) Blood pressures are normotensive here. Holding home lisinopril due to (units unknown) (unknown) (unknown) (no date) (unknown) (unknown) CHEST: Respiratory excursions symmetric, diffuse wheezes and coarse breath (units unknown) (unknown) (unknown) (no date) (unknown) (unknown) CK-MB (CK-2) Rel Index TNP (units unknown) (unknown) (unknown) (no date) (unknown) (unknown) CK-MB (CK-2) Rel Index (units unknown) (unknown) (unknown) (no date) (unknown) (unknown) CK-MB (CK-2) TNP (units unknown) (unknown) (unknown) (no date) (unknown) (unknown) CK-MB (CK-2) (units unknown) (unknown) (unknown) (no date) (unknown) (unknown) COPD (chronic obstructive pulmonary disease) (units unknown) (unknown) (unknown) (no date) (unknown) (unknown) CV: Regular rate and rhythm, no murmurs, rubs, gallops, PMI can not be palpated (units unknown) (unknown) (unknown) (no date) (unknown) (unknown) Calcium 8.7 (units unknown) (unknown) (unknown) (no date) (unknown) (unknown) Calcium 9.5 (units unknown) (unknown) (unknown) (no date) (unknown) (unknown) Calcium (units unknown) (unknown) (unknown) (no date) (unknown) (unknown) Cannula (units unknown) (unknown) (unknown) (no date) (unknown) (unknown) Carbon Dioxide 38 H (units unknown) (unknown) (unknown) (no date) (unknown) (unknown) Carbon Dioxide 39 H (units unknown) (unknown) (unknown) (no date) (unknown) (unknown) Carbon Dioxide (units unknown) (unknown) (unknown) (no date) (unknown) (unknown) Chlamy pneumoniae PC R Not detected (units unknown) (unknown) (unknown) (no date) (unknown) (unknown) Chlamy pneumoniae PCR (units unknown) (unknown) (unknown) (no date) (unknown) (unknown) Chloride 90 L (units unknown) (unknown) (unknown) (no date) (unknown) (unknown) Chloride (units unknown) (unknown) (unknown) (no date) (unknown) (unknown) Code status (units unknown) (unknown) (unknown) (no date) (unknown) (unknown) Congestive heart failure noted on chest x-ray as well as on previous imaging (units unknown) (unknown) (unknown) (no date) (unknown) (unknown) Continue her outpatient respiratory medications. As noted, continue IV Solu (units unknown) (unknown) (unknown) (no date) (unknown) (unknown) Coronavirus 229E (PCR) Not detected (units unknown) (unknown) (unknown) (no date) (unknown) (unknown) Coronavirus 229E (PCR) (units unknown) (unknown) (unknown) (no date) (unknown) (unknown) Coronavirus HKU1 (PCR) Not detected (units unknown) (unknown) (unknown) (no date) (unknown) (unknown) Coronavirus HKU1 (PCR) (units unknown) (unknown) (unknown) (no date) (unknown) (unknown) Coronavirus NL63 (PCR) Not detected (units unknown) (unknown) (unknown) (no date) (unknown) (unknown) Coronavirus NL63 (PCR) (units unknown) (unknown) (unknown) (no date) (unknown) (unknown) Coronavirus OC43 (PCR) Not detected (units unknown) (unknown) (unknown) (no date) (unknown) (unknown) Coronavirus OC43 (PCR) (units unknown) (unknown) (unknown) (no date) (unknown) (unknown) Creatinine 0.80 (units unknown) (unknown) (unknown) (no date) (unknown) (unknown) Creatinine 1.27 H (units unknown) (unknown) (unknown) (no date) (unknown) (unknown) Creatinine (units unknown) (unknown) (unknown) (no date) (unknown) (unknown) Critical Care time: (units unknown) (unknown) (unknown) (no date) (unknown) (unknown) : 1965 Acct:[id number] (units unknown) (unknown) (unknown) (no date) (unknown) (unknown) Date of Service: 07/24/22 (units unknown) (unknown) (unknown) (no date) (unknown) (unknown) Disposition (units unknown) (unknown) (unknown) (no date) (unknown) (unknown) Diuresed to euvolemia. F/u echo read and hold more lasix for now. Restarted home (units unknown) (unknown) (unknown) (no date) (unknown) (unknown) Downgraded from ICU 07/25. Likely 2-3 more days. (units unknown) (unknown) (unknown) (no date) (unknown) (unknown) EXTR: Warm, well perfused, no clubbing/cyanosis/whit ma (units unknown) (unknown) (unknown) (no date) (unknown) (unknown) Eliquis (units unknown) (unknown) (unknown) (no date) (unknown) (unknown) Entero/Rhino (PCR) Not detected (units unknown) (unknown) (unknown) (no date) (unknown) (unknown) Entero/Rhino (PCR) (units unknown) (unknown) (unknown) (no date) (unknown) (unknown) Eos # (Auto) 0 (units unknown) (unknown) (unknown) (no date) (unknown) (unknown) Eos # (Auto) (units unknown) (unknown) (unknown) (no date) (unknown) (unknown) Eos % (Auto) 0.0 L (units unknown) (unknown) (unknown) (no date) (unknown) (unknown) Eos % (Auto) (units unknown) (unknown) (unknown) (no date) (unknown) (unknown) Estimated GFR > 60 (units unknown) (unknown) (unknown) (no date) (unknown) (unknown) Estimated GFR 49 L (units unknown) (unknown) (unknown) (no date) (unknown) (unknown) Estimated GFR (units unknown) (unknown) (unknown) (no date) (unknown) (unknown) Exam Narrative: (units unknown) (unknown) (unknown) (no date) (unknown) (unknown) Exam (units unknown) (unknown) (unknown) (no date) (unknown) (unknown) FiO2 40 (units unknown) (unknown) (unknown) (no date) (unknown) (unknown) FiO2 (units unknown) (unknown) (unknown) (no date) (unknown) (unknown) Fraction of Inspired Oxygen 36 (units unknown) (unknown) (unknown) (no date) (unknown) (unknown) Full (units unknown) (unknown) (unknown) (no date) (unknown) (unknown) GEN: Acutely and chronically ill-appearing middle-aged female, drowsy but (units unknown) (unknown) (unknown) (no date) (unknown) (unknown) Globulin 3.2 (units unknown) (unknown) (unknown) (no date) (unknown) (unknown) Globulin (units unknown) (unknown) (unknown) (no date) (unknown) (unknown) Glucose 248 H (units unknown) (unknown) (unknown) (no date) (unknown) (unknown) Glucose 290 H D (units unknown) (unknown) (unknown) (no date) (unknown) (unknown) Glucose 502 H* D (units unknown) (unknown) (unknown) (no date) (unknown) (unknown) Glucose (units unknown) (unknown) (unknown) (no date) (unknown) (unknown) HEENT: Normocephalic , face symmetric, pupils equal round reactive to light, (units unknown) (unknown) (unknown) (no date) (unknown) (unknown) Hct 46.5 H (units unknown) (unknown) (unknown) (no date) (unknown) (unknown) Hct 48.5 H (units unknown) (unknown) (unknown) (no date) (unknown) (unknown) Hct (units unknown) (unknown) (unknown) (no date) (unknown) (unknown) Her obesity puts her at significant risk of morbidity and mortality. Would (units unknown) (unknown) (unknown) (no date) (unknown) (unknown) Hgb 15.2 (units unknown) (unknown) (unknown) (no date) (unknown) (unknown) Hgb 15.8 (units unknown) (unknown) (unknown) (no date) (unknown) (unknown) Hgb (units unknown) (unknown) (unknown) (no date) (unknown) (unknown) Human Metapneumovir PCR Detected H (units unknown) (unknown) (unknown) (no date) (unknown) (unknown) Human Metapneumovir PCR (units unknown) (unknown) (unknown) (no date) (unknown) (unknown) I spent a total of [ ] minutes of critical care time on this patient's care (units unknown) (unknown) (unknown) (no date) (unknown) (unknown) ICU status. Echo pending. (units unknown) (unknown) (unknown) (no date) (unknown) (unknown) Influenza Type A (PCR) Not detected (units unknown) (unknown) (unknown) (no date) (unknown) (unknown) Influenza Type A (PCR) (units unknown) (unknown) (unknown) (no date) (unknown) (unknown) Influenza Type B (PCR) Not detected (units unknown) (unknown) (unknown) (no date) (unknown) (unknown) Influenza Type B (PCR) (units unknown) (unknown) (unknown) (no date) (unknown) (unknown) Interval history: (units unknown) (unknown) (unknown) (no date) (unknown) (unknown) [address] [address] (units unknown) (unknown) (unknown) (no date) (unknown) (unknown) Laboratory Results - last 24 hr (units unknown) (unknown) (unknown) (no date) (unknown) (unknown) Labs (units unknown) (unknown) (unknown) (no date) (unknown) (unknown) Labs: (units unknown) (unknown) (unknown) (no date) (unknown) (unknown) Lactate 2.2 H 2.2 H (units unknown) (unknown) (unknown) (no date) (unknown) (unknown) Lactate (units unknown) (unknown) (unknown) (no date) (unknown) (unknown) Lipase 43 (units unknown) (unknown) (unknown) (no date) (unknown) (unknown) Lipase (units unknown) (unknown) (unknown) (no date) (unknown) (unknown) Lymph # (Auto) 1000 L (units unknown) (unknown) (unknown) (no date) (unknown) (unknown) Lymph # (Auto) 600 L (units unknown) (unknown) (unknown) (no date) (unknown) (unknown) Lymph # (Auto) (units unknown) (unknown) (unknown) (no date) (unknown) (unknown) Lymph % (Auto) 3.7 L (units unknown) (unknown) (unknown) (no date) (unknown) (unknown) Lymph % (Auto) 5.0 L (units unknown) (unknown) (unknown) (no date) (unknown) (unknown) Lymph % (Auto) (units unknown) (unknown) (unknown) (no date) (unknown) (unknown) M. pneumoniae (PCR) Not detected (units unknown) (unknown) (unknown) (no date) (unknown) (unknown) M. pneumoniae (PCR) (units unknown) (unknown) (unknown) (no date) (unknown) (unknown) MCH 30.9 (units unknown) (unknown) (unknown) (no date) (unknown) (unknown) MCH (units unknown) (unknown) (unknown) (no date) (unknown) (unknown) MCHC 32.6 (units unknown) (unknown) (unknown) (no date) (unknown) (unknown) MCHC 32.7 (units unknown) (unknown) (unknown) (no date) (unknown) (unknown) MCHC (units unknown) (unknown) (unknown) (no date) (unknown) (unknown) MCV 94.5 (units unknown) (unknown) (unknown) (no date) (unknown) (unknown) MCV 94.8 (units unknown) (unknown) (unknown) (no date) (unknown) (unknown) MCV (units unknown) (unknown) (unknown) (no date) (unknown) (unknown) Magnesium 2.3 (units unknown) (unknown) (unknown) (no date) (unknown) (unknown) Magnesium (units unknown) (unknown) (unknown) (no date) (unknown) (unknown) Medical History (units unknown) (unknown) (unknown) (no date) (unknown) (unknown) Medrol 80 mg IV q.12 . Initially required bipap but now on 3L NC. Lasix and (units unknown) (unknown) (unknown) (no date) (unknown) (unknown) Medrol 80 mg q.12. Will start budesonide as well. Duo nebs 4 times daily (units unknown) (unknown) (unknown) (no date) (unknown) (unknown) [place] # (Auto) 1400 H (units unknown) (unknown) (unknown) (no date) (unknown) (unknown) [place] # (Auto) 800 (units unknown) (unknown) (unknown) (no date) (unknown) (unknown) [place] # (Auto) (units unknown) (unknown) (unknown) (no date) (unknown) (unknown) [place] % (Auto) 4.6 (units unknown) (unknown) (unknown) (no date) (unknown) (unknown) [place] % (Auto) 7.0 (units unknown) (unknown) (unknown) (no date) (unknown) (unknown) [place] % (Auto) (units unknown) (unknown) (unknown) (no date) (unknown) (unknown) NECK: Supple, no lymphadenopathy, can not palpate any thyroid nodularity, (units unknown) (unknown) (unknown) (no date) (unknown) (unknown) NEURO: Drowsy, follows simple commands, ears grossly intact (units unknown) (unknown) (unknown) (no date) (unknown) (unknown) NT-Pro-B Natriuret Pep 2860 H (units unknown) (unknown) (unknown) (no date) (unknown) (unknown) NT-Pro-B Natriuret Pep (units unknown) (unknown) (unknown) (no date) (unknown) (unknown) Narrative (units unknown) (unknown) (unknown) (no date) (unknown) (unknown) Nasal Screen MRSA (PCR) Not detected (units unknown) (unknown) (unknown) (no date) (unknown) (unknown) Nasal Screen MRSA (PCR) (units unknown) (unknown) (unknown) (no date) (unknown) (unknown) Neut # (Auto) 23829 H (units unknown) (unknown) (unknown) (no date) (unknown) (unknown) Neut # (Auto) 42745 H (units unknown) (unknown) (unknown) (no date) (unknown) (unknown) Neut # (Auto) (units unknown) (unknown) (unknown) (no date) (unknown) (unknown) Neut % (Auto) 87.9 H (units unknown) (unknown) (unknown) (no date) (unknown) (unknown) Neut % (Auto) 91.6 H (units unknown) (unknown) (unknown) (no date) (unknown) (unknown) Neut % (Auto) (units unknown) (unknown) (unknown) (no date) (unknown) (unknown) No RVR at this time. Regular on exam. Restarted home amio and eliquis. (units unknown) (unknown) (unknown) (no date) (unknown) (unknown) Not on statin. (units unknown) (unknown) (unknown) (no date) (unknown) (unknown) Objective (units unknown) (unknown) (unknown) (no date) (unknown) (unknown) On oral medications only per report. A1c at the outside facility was reported (units unknown) (unknown) (unknown) (no date) (unknown) (unknown) Oxygen Delivery Method High Flow Nasal Cannula (units unknown) (unknown) (unknown) (no date) (unknown) (unknown) Oxygen Delivery Method High Flow Nasal (units unknown) (unknown) (unknown) (no date) (unknown) (unknown) Oxygen Delivery Method (units unknown) (unknown) (unknown) (no date) (unknown) (unknown) Oxygen Flow Rate 4 4 4 (units unknown) (unknown) (unknown) (no date) (unknown) (unknown) Oxygen Flow Rate 4 4 (units unknown) (unknown) (unknown) (no date) (unknown) (unknown) Oxygen Flow Rate 4 (units unknown) (unknown) (unknown) (no date) (unknown) (unknown) Oxygen Flow Rate (units unknown) (unknown) (unknown) (no date) (unknown) (unknown) PFSH (units unknown) (unknown) (unknown) (no date) (unknown) (unknown) PSYCH: Mood, affect, judgment, and insight can not be assessed (units unknown) (unknown) (unknown) (no date) (unknown) (unknown) Parainfluenza 1 (PCR ) Not detected (units unknown) (unknown) (unknown) (no date) (unknown) (unknown) Parainfluenza 1 (PCR) (units unknown) (unknown) (unknown) (no date) (unknown) (unknown) Parainfluenza 2 (PCR ) Not detected (units unknown) (unknown) (unknown) (no date) (unknown) (unknown) Parainfluenza 2 (PCR) (units unknown) (unknown) (unknown) (no date) (unknown) (unknown) Parainfluenza 3 (PCR ) Not detected (units unknown) (unknown) (unknown) (no date) (unknown) (unknown) Parainfluenza 3 (PCR) (units unknown) (unknown) (unknown) (no date) (unknown) (unknown) Parainfluenza 4 (PCR ) Not detected (units unknown) (unknown) (unknown) (no date) (unknown) (unknown) Parainfluenza 4 (PCR) (units unknown) (unknown) (unknown) (no date) (unknown) (unknown) Patient needed bipap briefly this morning but now off. Able to downgrade from (units unknown) (unknown) (unknown) (no date) (unknown) (unknown) Patient presents after leaving outside hospital Against Medical Advice after a 5 (units unknown) (unknown) (unknown) (no date) (unknown) (unknown) Patient: Ester Benavides MR#: [id number] (units unknown) (unknown) (unknown) (no date) (unknown) (unknown) Per outside records, she reports receiving a shock a couple of times a year. I (units unknown) (unknown) (unknown) (no date) (unknown) (unknown) Plt Count 264 (units unknown) (unknown) (unknown) (no date) (unknown) (unknown) Plt Count 320 (units unknown) (unknown) (unknown) (no date) (unknown) (unknown) Plt Count (units unknown) (unknown) (unknown) (no date) (unknown) (unknown) Potassium 4.1 (units unknown) (unknown) (unknown) (no date) (unknown) (unknown) Potassium 4.2 (units unknown) (unknown) (unknown) (no date) (unknown) (unknown) Potassium (units unknown) (unknown) (unknown) (no date) (unknown) (unknown) Procalcitonin 0.06 (units unknown) (unknown) (unknown) (no date) (unknown) (unknown) Procalcitonin (units unknown) (unknown) (unknown) (no date) (unknown) (unknown) Progress Note (units unknown) (unknown) (unknown) (no date) (unknown) (unknown) Prophylaxis (units unknown) (unknown) (unknown) (no date) (unknown) (unknown) Provider: Jerald Sanches D.O. (units unknown) (unknown) (unknown) (no date) (unknown) (unknown) Pulse Oximetry 90 L 91 (units unknown) (unknown) (unknown) (no date) (unknown) (unknown) Pulse Oximetry 90 L 92 (units unknown) (unknown) (unknown) (no date) (unknown) (unknown) Pulse Oximetry 90 L (units unknown) (unknown) (unknown) (no date) (unknown) (unknown) Pulse Oximetry 92 92 (units unknown) (unknown) (unknown) (no date) (unknown) (unknown) Pulse Oximetry 93 92 (units unknown) (unknown) (unknown) (no date) (unknown) (unknown) Pulse Oximetry 93 96 (units unknown) (unknown) (unknown) (no date) (unknown) (unknown) Pulse Oximetry 94 92 (units unknown) (unknown) (unknown) (no date) (unknown) (unknown) Pulse Oximetry 94 94 (units unknown) (unknown) (unknown) (no date) (unknown) (unknown) Pulse Oximetry 95 95 (units unknown) (unknown) (unknown) (no date) (unknown) (unknown) Pulse Oximetry 95 (units unknown) (unknown) (unknown) (no date) (unknown) (unknown) Pulse Oximetry 96 96 (units unknown) (unknown) (unknown) (no date) (unknown) (unknown) Pulse Oximetry 97 92 (units unknown) (unknown) (unknown) (no date) (unknown) (unknown) Pulse Rate 60 60 (units unknown) (unknown) (unknown) (no date) (unknown) (unknown) Pulse Rate 60 62 (units unknown) (unknown) (unknown) (no date) (unknown) (unknown) Pulse Rate 60 (units unknown) (unknown) (unknown) (no date) (unknown) (unknown) Pulse Rate 68 61 (units unknown) (unknown) (unknown) (no date) (unknown) (unknown) RBC 4.92 (units unknown) (unknown) (unknown) (no date) (unknown) (unknown) RBC 5.11 (units unknown) (unknown) (unknown) (no date) (unknown) (unknown) RBC (units unknown) (unknown) (unknown) (no date) (unknown) (unknown) RDW 13.9 (units unknown) (unknown) (unknown) (no date) (unknown) (unknown) RDW 14.0 (units unknown) (unknown) (unknown) (no date) (unknown) (unknown) RDW (units unknown) (unknown) (unknown) (no date) (unknown) (unknown) RSV (PCR) Not detected (units unknown) (unknown) (unknown) (no date) (unknown) (unknown) RSV (PCR) (units unknown) (unknown) (unknown) (no date) (unknown) (unknown) Respiratory Rate 20 35 H (units unknown) (unknown) (unknown) (no date) (unknown) (unknown) Respiratory Rate 22 24 (units unknown) (unknown) (unknown) (no date) (unknown) (unknown) Respiratory Rate 24 28 H (units unknown) (unknown) (unknown) (no date) (unknown) (unknown) Respiratory Rate 24 (units unknown) (unknown) (unknown) (no date) (unknown) (unknown) Respiratory Rate 25 H 26 H (units unknown) (unknown) (unknown) (no date) (unknown) (unknown) Respiratory Rate 26 H 27 H (units unknown) (unknown) (unknown) (no date) (unknown) (unknown) Respiratory Rate 26 H (units unknown) (unknown) (unknown) (no date) (unknown) (unknown) Respiratory Rate 28 H 25 H (units unknown) (unknown) (unknown) (no date) (unknown) (unknown) Respiratory Rate 30 H 27 H (units unknown) (unknown) (unknown) (no date) (unknown) (unknown) Respiratory Rate 31 H 26 H (units unknown) (unknown) (unknown) (no date) (unknown) (unknown) Respiratory Rate 31 H (units unknown) (unknown) (unknown) (no date) (unknown) (unknown) Respiratory Rate 33 H 26 H (units unknown) (unknown) (unknown) (no date) (unknown) (unknown) Respiratory Rate 34 H 32 H (units unknown) (unknown) (unknown) (no date) (unknown) (unknown) SARS-CoV-2 (PCR) Not detected (units unknown) (unknown) (unknown) (no date) (unknown) (unknown) SARS-CoV-2 (PCR) (units unknown) (unknown) (unknown) (no date) (unknown) (unknown) SKIN: Warm and dry, without rash (units unknown) (unknown) (unknown) (no date) (unknown) (unknown) SaO2/FiO2 Ratio 250 (units unknown) (unknown) (unknown) (no date) (unknown) (unknown) She tested positive both at the outside hospital and on today's labs. She is (units unknown) (unknown) (unknown) (no date) (unknown) (unknown) Signed By:<Electronically signed by Jerald Sanches D.O.> (units unknown) (unknown) (unknown) (no date) (unknown) (unknown) Smoking Status: Current every day smoker (units unknown) (unknown) (unknown) (no date) (unknown) (unknown) Social History (units unknown) (unknown) (unknown) (no date) (unknown) (unknown) Sodium 136 L (units unknown) (unknown) (unknown) (no date) (unknown) (unknown) Sodium 137 (units unknown) (unknown) (unknown) (no date) (unknown) (unknown) Sodium (units unknown) (unknown) (unknown) (no date) (unknown) (unknown) Subjective (units unknown) (unknown) (unknown) (no date) (unknown) (unknown) Temperature 97.0 F L (units unknown) (unknown) (unknown) (no date) (unknown) (unknown) Temperature 97.7 F (units unknown) (unknown) (unknown) (no date) (unknown) (unknown) Temperature (units unknown) (unknown) (unknown) (no date) (unknown) (unknown) Time Spent With Patient (units unknown) (unknown) (unknown) (no date) (unknown) (unknown) Total Bilirubin 0.7 (units unknown) (unknown) (unknown) (no date) (unknown) (unknown) Total Bilirubin (units unknown) (unknown) (unknown) (no date) (unknown) (unknown) Total Creatine Kinas e 36 (units unknown) (unknown) (unknown) (no date) (unknown) (unknown) Total Creatine Kinase (units unknown) (unknown) (unknown) (no date) (unknown) (unknown) Total Protein 7.0 (units unknown) (unknown) (unknown) (no date) (unknown) (unknown) Total Protein (units unknown) (unknown) (unknown) (no date) (unknown) (unknown) Troponin I < 0.012 (units unknown) (unknown) (unknown) (no date) (unknown) (unknown) Troponin I (units unknown) (unknown) (unknown) (no date) (unknown) (unknown) Troponin here is negative. On eliquis. (units unknown) (unknown) (unknown) (no date) (unknown) (unknown) URI symptoms for the duration of her hospitalization at the outside hospital. (units unknown) (unknown) (unknown) (no date) (unknown) (unknown) Vital Signs (units unknown) (unknown) (unknown) (no date) (unknown) (unknown) WBC 17.1 H (units unknown) (unknown) (unknown) (no date) (unknown) (unknown) WBC 20.6 H (units unknown) (unknown) (unknown) (no date) (unknown) (unknown) WBC (units unknown) (unknown) (unknown) (no date) (unknown) (unknown) [Embedded Image Not Available] (units unknown) (unknown) (unknown) (no date) (unknown) (unknown) afebrile. She does have a leukocytosis but this is likely steroid induced (units unknown) (unknown) (unknown) (no date) (unknown) (unknown) am uncertain when e last had her device interrogated. (units unknown) (unknown) (unknown) (no date) (unknown) (unknown) and creatinine are normal. Will monitor. (units unknown) (unknown) (unknown) (no date) (unknown) (unknown) carotid arteries can not be heard over the BiPAP and respiratory noises (units unknown) (unknown) (unknown) (no date) (unknown) (unknown) daily due to elevate d sugars. (units unknown) (unknown) (unknown) (no date) (unknown) (unknown) day hospital stay. While there, she received diuresis, fluid restriction, IV (units unknown) (unknown) (unknown) (no date) (unknown) (unknown) department, she was hypoxic with room air saturations of 70%, tachypneic, and (units unknown) (unknown) (unknown) (no date) (unknown) (unknown) dependence, as I suspect she also has a component of obesity hypoventilation (units unknown) (unknown) (unknown) (no date) (unknown) (unknown) diamox stopped on 06/27 due to uptrending Cr. (units unknown) (unknown) (unknown) (no date) (unknown) (unknown) done at the outside hospital. No echocardiogram available in records to denote (units unknown) (unknown) (unknown) (no date) (unknown) (unknown) exacerbated by metapneumovirus. Received furosemide 40 mg IV b.i.d. and Solu (units unknown) (unknown) (unknown) (no date) (unknown) (unknown) extraocular movement s intact, sclerae anicteric, conjunctiva clear, (units unknown) (unknown) (unknown) (no date) (unknown) (unknown) greatly benefit from weight reduction. (units unknown) (unknown) (unknown) (no date) (unknown) (unknown) heart failure. Exam also indicates a component of COPD exacerbation likely (units unknown) (unknown) (unknown) (no date) (unknown) (unknown) household members: spouse (units unknown) (unknown) (unknown) (no date) (unknown) (unknown) lives independently: Yes (units unknown) (unknown) (unknown) (no date) (unknown) (unknown) metoprolol and aldactone. (units unknown) (unknown) (unknown) (no date) (unknown) (unknown) noting severe respiratory distress. Chest x-ray reveals evidence of congestive (units unknown) (unknown) (unknown) (no date) (unknown) (unknown) oropharyngeal exam can not be performed secondary to having BiPAP in place (units unknown) (unknown) (unknown) (no date) (unknown) (unknown) presently complainin g of any pain. Would avoid opioids for now given her BiPAP (units unknown) (unknown) (unknown) (no date) (unknown) (unknown) quadrants, body habitus limits exam (units unknown) (unknown) (unknown) (no date) (unknown) (unknown) rather than related to an infection as she was afebrile and not complaining of (units unknown) (unknown) (unknown) (no date) (unknown) (unknown) responsive, appears to be oriented to self and situation, no acute distress (units unknown) (unknown) (unknown) (no date) (unknown) (unknown) scheduled (units unknown) (unknown) (unknown) (no date) (unknown) (unknown) sounds (units unknown) (unknown) (unknown) (no date) (unknown) (unknown) steroids, and respiratory treatments. Upon arriving to our emergency (units unknown) (unknown) (unknown) (no date) (unknown) (unknown) syndrome. (units unknown) (unknown) (unknown) (no date) (unknown) (unknown) the severity of her congestive heart failure. Will obtain an echocardiogram. (units unknown) (unknown) (unknown) (no date) (unknown) (unknown) to be 8%. Will place on fingersticks and sliding scale. Added lantus 25 units (units unknown) (unknown) (unknown) (no date) (unknown) (unknown) today; this time is exclusive of procedural time. (units unknown) (unknown) (unknown) (no date) (unknown) (unknown) uncertain if she takes chronic opioid medication at baseline. She is not (units unknown) (unknown) (unknown) (no date) (unknown) (unknown) uptrending Cr. (units unknown) (unknown) Result panel 659 (unknown) (no date) (unknown) (unknown) 0 /ul (unknown) (unknown) (no date) (unknown) (unknown) 0.0 % (unknown) (unknown) (no date) (unknown) (unknown) 0.3 % (unknown) (unknown) (no date) (unknown) (unknown) 100 /ul (unknown) (unknown) (no date) (unknown) (unknown) 13.8 % (unknown) (unknown) (no date) (unknown) (unknown) 15.6 g/dl (unknown) (unknown) (no date) (unknown) (unknown) 52823 /ul (unknown) (unknown) (no date) (unknown) (unknown) 18.6 x10 3/ul (unknown) (unknown) (no date) (unknown) (unknown) 2.1 % (unknown) (unknown) (no date) (unknown) (unknown) 244 x10 3/ul (unknown) (unknown) (no date) (unknown) (unknown) 3.0 % (unknown) (unknown) (no date) (unknown) (unknown) 30.9 pg (unknown) (unknown) (no date) (unknown) (unknown) 33.0 % (unknown) (unknown) (no date) (unknown) (unknown) 400 /ul (unknown) (unknown) (no date) (unknown) (unknown) 47.3 % (unknown) (unknown) (no date) (unknown) (unknown) 5.05 x10 6/ul (unknown) (unknown) (no date) (unknown) (unknown) 500 /ul (unknown) (unknown) (no date) (unknown) (unknown) 93.7 fl (unknown) (unknown) (no date) (unknown) (unknown) 94.6 % (unknown) Result panel 660 (unknown) (no date) (unknown) (unknown) 1.14 mg/dl (unknown) (unknown) (no date) (unknown) (unknown) 133 mmol/l (unknown) (unknown) (no date) (unknown) (unknown) 214 mg/dl (unknown) (unknown) (no date) (unknown) (unknown) 214 mg/dl (unknown) (unknown) (no date) (unknown) (unknown) 34.2 (units unknown) (unknown) (unknown) (no date) (unknown) (unknown) 39 mg/dl (unknown) (unknown) (no date) (unknown) (unknown) 39 mmol/l (unknown) (unknown) (no date) (unknown) (unknown) 4.8 mmol/l (unknown) (unknown) (no date) (unknown) (unknown) 55 ml/min (unknown) (unknown) (no date) (unknown) (unknown) 55 ml/min (unknown) (unknown) (no date) (unknown) (unknown) 8.9 mg/dl (unknown) (unknown) (no date) (unknown) (unknown) 92 mmol/l (unknown) Result panel 661 (unknown) (no date) (unknown) (unknown) 0 /ul (unknown) (unknown) (no date) (unknown) (unknown) 0.0 % (unknown) (unknown) (no date) (unknown) (unknown) 0.3 % (unknown) (unknown) (no date) (unknown) (unknown) 100 /ul (unknown) (unknown) (no date) (unknown) (unknown) 13.8 % (unknown) (unknown) (no date) (unknown) (unknown) 15.6 g/dl (unknown) (unknown) (no date) (unknown) (unknown) 55480 /ul (unknown) (unknown) (no date) (unknown) (unknown) 18.6 x10 3/ul (unknown) (unknown) (no date) (unknown) (unknown) 2.1 % (unknown) (unknown) (no date) (unknown) (unknown) 244 x10 3/ul (unknown) (unknown) (no date) (unknown) (unknown) 3.0 % (unknown) (unknown) (no date) (unknown) (unknown) 30.9 pg (unknown) (unknown) (no date) (unknown) (unknown) 33.0 % (unknown) (unknown) (no date) (unknown) (unknown) 400 /ul (unknown) (unknown) (no date) (unknown) (unknown) 47.3 % (unknown) (unknown) (no date) (unknown) (unknown) 5.05 x10 6/ul (unknown) (unknown) (no date) (unknown) (unknown) 500 /ul (unknown) (unknown) (no date) (unknown) (unknown) 93.7 fl (unknown) (unknown) (no date) (unknown) (unknown) 94.6 % (unknown) (unknown) (no date) (unknown) (unknown) Normal Morphology (units unknown) (unknown) Result panel 662 (unknown) (no date) (unknown) (unknown) (no value) (units unknown) (unknown) (unknown) (no date) (unknown) (unknown) (past 8 hours): (units unknown) (unknown) (unknown) (no date) (unknown) (unknown) 00:35 07/26/22 (units unknown) (unknown) (unknown) (no date) (unknown) (unknown) 02:41 07/26/22 (units unknown) (unknown) (unknown) (no date) (unknown) (unknown) 07/26/22 07/26/22 (units unknown) (unknown) (unknown) (no date) (unknown) (unknown) 07/26/22 06:00 (units unknown) (unknown) (unknown) (no date) (unknown) (unknown) 07/26/22 (units unknown) (unknown) (unknown) (no date) (unknown) (unknown) 03:40 (units unknown) (unknown) (unknown) (no date) (unknown) (unknown) 06:00 06:00 (units unknown) (unknown) (unknown) (no date) (unknown) (unknown) 1. Acute on chronic hypoxic and hypercarbic respiratory failure, improving (units unknown) (unknown) (unknown) (no date) (unknown) (unknown) 10. Reported CKD stage 3 (units unknown) (unknown) (unknown) (no date) (unknown) (unknown) 11. Chronic pain syndrome (units unknown) (unknown) (unknown) (no date) (unknown) (unknown) 12. Hypertension (units unknown) (unknown) (unknown) (no date) (unknown) (unknown) 13. Hyperlipidemia (units unknown) (unknown) (unknown) (no date) (unknown) (unknown) 60992 (units unknown) (unknown) (unknown) (no date) (unknown) (unknown) 2. Acute on chronic systolic congestive heart failure exacerbation (units unknown) (unknown) (unknown) (no date) (unknown) (unknown) 3. COPD exacerbation , likely secondary to metapneumovirus infection (units unknown) (unknown) (unknown) (no date) (unknown) (unknown) 4. Metapneumovirus infection (units unknown) (unknown) (unknown) (no date) (unknown) (unknown) 5. Coronary artery disease with prior DC (units unknown) (unknown) (unknown) (no date) (unknown) (unknown) 6. History of cardia c arrest, status post pacemaker/AICD placement (units unknown) (unknown) (unknown) (no date) (unknown) (unknown) 7. Atrial fibrillation on chronic anticoagulation with Eliquis (units unknown) (unknown) (unknown) (no date) (unknown) (unknown) 8. Diabetes mellitus type 2 (units unknown) (unknown) (unknown) (no date) (unknown) (unknown) 9. Class 3 obesity with BMI of 42.2 (units unknown) (unknown) (unknown) (no date) (unknown) (unknown) ABD: Firm, obese, nontender, nondistended, bowel sounds present in all 4 (units unknown) (unknown) (unknown) (no date) (unknown) (unknown) Age/Sex: 57 / F (units unknown) (unknown) (unknown) (no date) (unknown) (unknown) As noted, outside documentation shows history of CKD 3. However here her GFR (units unknown) (unknown) (unknown) (no date) (unknown) (unknown) Assessment + Plan narrative: (units unknown) (unknown) (unknown) (no date) (unknown) (unknown) Assessment + Plan (units unknown) (unknown) (unknown) (no date) (unknown) (unknown) BUN 39 H (units unknown) (unknown) (unknown) (no date) (unknown) (unknown) BUN/Creatinine Ratio 34.2 H (units unknown) (unknown) (unknown) (no date) (unknown) (unknown) Baso # (Auto) 100 (units unknown) (unknown) (unknown) (no date) (unknown) (unknown) Baso % (Auto) 0.3 (units unknown) (unknown) (unknown) (no date) (unknown) (unknown) Blood Pressure 123/5 1 L 118/67 (units unknown) (unknown) (unknown) (no date) (unknown) (unknown) Blood pressures are normotensive here. Holding home lisinopril due to (units unknown) (unknown) (unknown) (no date) (unknown) (unknown) CHEST: Respiratory excursions symmetric, diffuse wheezes and coarse breath (units unknown) (unknown) (unknown) (no date) (unknown) (unknown) COPD (chronic obstructive pulmonary disease) (units unknown) (unknown) (unknown) (no date) (unknown) (unknown) CV: Regular rate and rhythm, no murmurs, rubs, gallops, PMI can not be palpated (units unknown) (unknown) (unknown) (no date) (unknown) (unknown) Calcium 8.9 (units unknown) (unknown) (unknown) (no date) (unknown) (unknown) Carbon Dioxide 39 H (units unknown) (unknown) (unknown) (no date) (unknown) (unknown) Chloride 92 L (units unknown) (unknown) (unknown) (no date) (unknown) (unknown) Code status (units unknown) (unknown) (unknown) (no date) (unknown) (unknown) Congestive heart failure noted on chest x-ray as well as on previous imaging (units unknown) (unknown) (unknown) (no date) (unknown) (unknown) Continue her outpatient respiratory medications. As noted, continue IV Solu (units unknown) (unknown) (unknown) (no date) (unknown) (unknown) Creatinine 1.14 H (units unknown) (unknown) (unknown) (no date) (unknown) (unknown) Critical Care time: (units unknown) (unknown) (unknown) (no date) (unknown) (unknown) : 1965 Acct:[id number] (units unknown) (unknown) (unknown) (no date) (unknown) (unknown) Date of Service: 07/24/22 (units unknown) (unknown) (unknown) (no date) (unknown) (unknown) Disposition (units unknown) (unknown) (unknown) (no date) (unknown) (unknown) Diuresed to euvolemia. F/u echo read and hold more lasix for now. Restarted home (units unknown) (unknown) (unknown) (no date) (unknown) (unknown) Downgraded from ICU 07/25. Likely 2-3 more days. (units unknown) (unknown) (unknown) (no date) (unknown) (unknown) EXTR: Warm, well perfused, no clubbing/cyanosis/whit ma (units unknown) (unknown) (unknown) (no date) (unknown) (unknown) Eliquis (units unknown) (unknown) (unknown) (no date) (unknown) (unknown) Eos # (Auto) 0 (units unknown) (unknown) (unknown) (no date) (unknown) (unknown) Eos % (Auto) 0.0 L (units unknown) (unknown) (unknown) (no date) (unknown) (unknown) Estimated GFR 55 L (units unknown) (unknown) (unknown) (no date) (unknown) (unknown) Exam Narrative: (units unknown) (unknown) (unknown) (no date) (unknown) (unknown) Exam (units unknown) (unknown) (unknown) (no date) (unknown) (unknown) Fraction of Inspired Oxygen 36 (units unknown) (unknown) (unknown) (no date) (unknown) (unknown) Full (units unknown) (unknown) (unknown) (no date) (unknown) (unknown) GEN: Acutely and chronically ill-appearing middle-aged female, drowsy but (units unknown) (unknown) (unknown) (no date) (unknown) (unknown) Glucose 214 H (units unknown) (unknown) (unknown) (no date) (unknown) (unknown) HEENT: Normocephalic , face symmetric, pupils equal round reactive to light, (units unknown) (unknown) (unknown) (no date) (unknown) (unknown) Hct 47.3 H (units unknown) (unknown) (unknown) (no date) (unknown) (unknown) Her obesity puts her at significant risk of morbidity and mortality. Would (units unknown) (unknown) (unknown) (no date) (unknown) (unknown) Hgb 15.6 (units unknown) (unknown) (unknown) (no date) (unknown) (unknown) I spent a total of [ ] minutes of critical care time on this patient's care (units unknown) (unknown) (unknown) (no date) (unknown) (unknown) [address] [address] (units unknown) (unknown) (unknown) (no date) (unknown) (unknown) Laboratory Results - last 24 hr (units unknown) (unknown) (unknown) (no date) (unknown) (unknown) Labs (units unknown) (unknown) (unknown) (no date) (unknown) (unknown) Labs: (units unknown) (unknown) (unknown) (no date) (unknown) (unknown) Lymph # (Auto) 500 L (units unknown) (unknown) (unknown) (no date) (unknown) (unknown) Lymph % (Auto) 3.0 L (units unknown) (unknown) (unknown) (no date) (unknown) (unknown) MCH 30.9 (units unknown) (unknown) (unknown) (no date) (unknown) (unknown) MCHC 33.0 (units unknown) (unknown) (unknown) (no date) (unknown) (unknown) MCV 93.7 (units unknown) (unknown) (unknown) (no date) (unknown) (unknown) Medical History (units unknown) (unknown) (unknown) (no date) (unknown) (unknown) Medrol 80 mg IV q.12 . Initially required bipap but now on 3L NC. Lasix and (units unknown) (unknown) (unknown) (no date) (unknown) (unknown) Medrol 80 mg q.12. Will start budesonide as well. Duo nebs 4 times daily s (units unknown) (unknown) (unknown) (no date) (unknown) (unknown) [place] # (Auto) 400 (units unknown) (unknown) (unknown) (no date) (unknown) (unknown) [place] % (Auto) 2.1 L (units unknown) (unknown) (unknown) (no date) (unknown) (unknown) NECK: Supple, no lymphadenopathy, can not palpate any thyroid nodularity, (units unknown) (unknown) (unknown) (no date) (unknown) (unknown) NEURO: Drowsy, follows simple commands, ears grossly intact (units unknown) (unknown) (unknown) (no date) (unknown) (unknown) Narrative (units unknown) (unknown) (unknown) (no date) (unknown) (unknown) Neut # (Auto) 83426 H (units unknown) (unknown) (unknown) (no date) (unknown) (unknown) Neut % (Auto) 94.6 H (units unknown) (unknown) (unknown) (no date) (unknown) (unknown) No RVR at this time. Regular on exam. Restarted home amio and eliquis. (units unknown) (unknown) (unknown) (no date) (unknown) (unknown) Not on statin. (units unknown) (unknown) (unknown) (no date) (unknown) (unknown) Objective (units unknown) (unknown) (unknown) (no date) (unknown) (unknown) On oral medications only per report. A1c at the outside facility was reported (units unknown) (unknown) (unknown) (no date) (unknown) (unknown) Oxygen Delivery Method Nasal Cannula (units unknown) (unknown) (unknown) (no date) (unknown) (unknown) Oxygen Flow Rate 4 4 (units unknown) (unknown) (unknown) (no date) (unknown) (unknown) Oxygen Flow Rate 4 (units unknown) (unknown) (unknown) (no date) (unknown) (unknown) PFSH (units unknown) (unknown) (unknown) (no date) (unknown) (unknown) PSYCH: Mood, affect, judgment, and insight can not be assessed (units unknown) (unknown) (unknown) (no date) (unknown) (unknown) Patient presents after leaving outside hospital Against Medical Advice after a 5 (units unknown) (unknown) (unknown) (no date) (unknown) (unknown) Patient: Ester Benavides MR#: [id number] (units unknown) (unknown) (unknown) (no date) (unknown) (unknown) Per outside records, she reports receiving a shock a couple of times a year. I (units unknown) (unknown) (unknown) (no date) (unknown) (unknown) Plt Count 244 (units unknown) (unknown) (unknown) (no date) (unknown) (unknown) Potassium 4.8 (units unknown) (unknown) (unknown) (no date) (unknown) (unknown) Progress Note (units unknown) (unknown) (unknown) (no date) (unknown) (unknown) Prophylaxis (units unknown) (unknown) (unknown) (no date) (unknown) (unknown) Provider: Jerald Sanches D.O. (units unknown) (unknown) (unknown) (no date) (unknown) (unknown) Pulse Oximetry 96 95 93 (units unknown) (unknown) (unknown) (no date) (unknown) (unknown) Pulse Rate 56 L 60 64 (units unknown) (unknown) (unknown) (no date) (unknown) (unknown) RBC 5.05 (units unknown) (unknown) (unknown) (no date) (unknown) (unknown) RBC Morphology Eula l morphology (units unknown) (unknown) (unknown) (no date) (unknown) (unknown) RDW 13.8 (units unknown) (unknown) (unknown) (no date) (unknown) (unknown) Respiratory Rate 18 24 18 (units unknown) (unknown) (unknown) (no date) (unknown) (unknown) SKIN: Warm and dry, without rash (units unknown) (unknown) (unknown) (no date) (unknown) (unknown) SaO2/FiO2 Ratio 263 (units unknown) (unknown) (unknown) (no date) (unknown) (unknown) She tested positive both at the outside hospital and on today's labs. She is (units unknown) (unknown) (unknown) (no date) (unknown) (unknown) Signed By: (units unknown) (unknown) (unknown) (no date) (unknown) (unknown) Smoking Status: Current every day smoker (units unknown) (unknown) (unknown) (no date) (unknown) (unknown) Social History (units unknown) (unknown) (unknown) (no date) (unknown) (unknown) Sodium 133 L (units unknown) (unknown) (unknown) (no date) (unknown) (unknown) Temperature 98.6 F 97.0 F L (units unknown) (unknown) (unknown) (no date) (unknown) (unknown) Time Spent With Patient (units unknown) (unknown) (unknown) (no date) (unknown) (unknown) Troponin here is negative. On eliquis. (units unknown) (unknown) (unknown) (no date) (unknown) (unknown) URI symptoms for the duration of her hospitalization at the outside hospital. (units unknown) (unknown) (unknown) (no date) (unknown) (unknown) Vital Signs (units unknown) (unknown) (unknown) (no date) (unknown) (unknown) WBC 18.6 H (units unknown) (unknown) (unknown) (no date) (unknown) (unknown) [Embedded Image Not Available] (units unknown) (unknown) (unknown) (no date) (unknown) (unknown) afebrile. She does have a leukocytosis but this is likely steroid induced (units unknown) (unknown) (unknown) (no date) (unknown) (unknown) am uncertain when sh e last had her device interrogated. (units unknown) (unknown) (unknown) (no date) (unknown) (unknown) and creatinine are normal. Will monitor. (units unknown) (unknown) (unknown) (no date) (unknown) (unknown) carotid arteries can not be heard over the BiPAP and respiratory noises (units unknown) (unknown) (unknown) (no date) (unknown) (unknown) cheduled (units unknown) (unknown) (unknown) (no date) (unknown) (unknown) daily due to elevate d sugars. (units unknown) (unknown) (unknown) (no date) (unknown) (unknown) day hospital stay. While there, she received diuresis, fluid restriction, IV (units unknown) (unknown) (unknown) (no date) (unknown) (unknown) department, she was hypoxic with room air saturations of 70%, tachypneic, and (units unknown) (unknown) (unknown) (no date) (unknown) (unknown) dependence, as I suspect she also has a component of obesity hypoventilation (units unknown) (unknown) (unknown) (no date) (unknown) (unknown) diamox stopped on 06/27 due to uptrending Cr. (units unknown) (unknown) (unknown) (no date) (unknown) (unknown) done at the outside hospital. No echocardiogram available in records to denote (units unknown) (unknown) (unknown) (no date) (unknown) (unknown) exacerbated by metapneumovirus. Received furosemide 40 mg IV b.i.d. and Solu (units unknown) (unknown) (unknown) (no date) (unknown) (unknown) extraocular movement s intact, sclerae anicteric, conjunctiva clear, (units unknown) (unknown) (unknown) (no date) (unknown) (unknown) greatly benefit from weight reduction. (units unknown) (unknown) (unknown) (no date) (unknown) (unknown) heart failure. Exam also indicates a component of COPD exacerbation likely (units unknown) (unknown) (unknown) (no date) (unknown) (unknown) household members: spouse (units unknown) (unknown) (unknown) (no date) (unknown) (unknown) lives independently: Yes (units unknown) (unknown) (unknown) (no date) (unknown) (unknown) metoprolol and aldactone. (units unknown) (unknown) (unknown) (no date) (unknown) (unknown) noting severe respiratory distress. Chest x-ray reveals evidence of congestive (units unknown) (unknown) (unknown) (no date) (unknown) (unknown) oropharyngeal exam can not be performed secondary to having BiPAP in place (units unknown) (unknown) (unknown) (no date) (unknown) (unknown) presently complainin g of any pain. Would avoid opioids for now given her BiPAP (units unknown) (unknown) (unknown) (no date) (unknown) (unknown) quadrants, body habitus limits exam (units unknown) (unknown) (unknown) (no date) (unknown) (unknown) rather than related to an infection as she was afebrile and not complaining of (units unknown) (unknown) (unknown) (no date) (unknown) (unknown) responsive, appears to be oriented to self and situation, no acute distress (units unknown) (unknown) (unknown) (no date) (unknown) (unknown) sounds (units unknown) (unknown) (unknown) (no date) (unknown) (unknown) steroids, and respiratory treatments. Upon arriving to our emergency (units unknown) (unknown) (unknown) (no date) (unknown) (unknown) syndrome. (units unknown) (unknown) (unknown) (no date) (unknown) (unknown) the severity of her congestive heart failure. Will obtain an echocardiogram. (units unknown) (unknown) (unknown) (no date) (unknown) (unknown) to be 8%. Will place on fingersticks and sliding scale. Added lantus 25 units (units unknown) (unknown) (unknown) (no date) (unknown) (unknown) today; this time is exclusive of procedural time. (units unknown) (unknown) (unknown) (no date) (unknown) (unknown) uncertain if she takes chronic opioid medication at baseline. She is not (units unknown) (unknown) (unknown) (no date) (unknown) (unknown) uptrending Cr. (units unknown) (unknown) Result panel 663 (unknown) (no date) (unknown) (unknown) (no value) (units unknown) (unknown) (unknown) (no date) (unknown) (unknown) 'scared her'. She is now on 3L NC which is her baseline. (units unknown) (unknown) (unknown) (no date) (unknown) (unknown) (past 8 hours): (units unknown) (unknown) (unknown) (no date) (unknown) (unknown) 00:35 07/26/22 (units unknown) (unknown) (unknown) (no date) (unknown) (unknown) 02:41 07/26/22 (units unknown) (unknown) (unknown) (no date) (unknown) (unknown) 07/26/22 07/26/22 (units unknown) (unknown) (unknown) (no date) (unknown) (unknown) 07/26/22 06:00 (units unknown) (unknown) (unknown) (no date) (unknown) (unknown) 07/26/22 1601 (units unknown) (unknown) (unknown) (no date) (unknown) (unknown) 07/26/22 (units unknown) (unknown) (unknown) (no date) (unknown) (unknown) 03:40 (units unknown) (unknown) (unknown) (no date) (unknown) (unknown) 06:00 06:00 (units unknown) (unknown) (unknown) (no date) (unknown) (unknown) 1. Acute on chronic hypoxic and hypercarbic respiratory failure, improving (units unknown) (unknown) (unknown) (no date) (unknown) (unknown) 10. Reported CKD stage 3 (units unknown) (unknown) (unknown) (no date) (unknown) (unknown) 11. Chronic pain syndrome (units unknown) (unknown) (unknown) (no date) (unknown) (unknown) 12. Hypertension (units unknown) (unknown) (unknown) (no date) (unknown) (unknown) 13. Hyperlipidemia (units unknown) (unknown) (unknown) (no date) (unknown) (unknown) [id number] (units unknown) (unknown) (unknown) (no date) (unknown) (unknown) 2. Acute on chronic systolic congestive heart failure exacerbation (units unknown) (unknown) (unknown) (no date) (unknown) (unknown) 3. COPD exacerbation , likely secondary to metapneumovirus infection (units unknown) (unknown) (unknown) (no date) (unknown) (unknown) 4. Metapneumovirus infection (units unknown) (unknown) (unknown) (no date) (unknown) (unknown) 5. Coronary artery disease with prior DC (units unknown) (unknown) (unknown) (no date) (unknown) (unknown) 6. History of cardia c arrest, status post pacemaker/AICD placement (units unknown) (unknown) (unknown) (no date) (unknown) (unknown) 7. Atrial fibrillation on chronic anticoagulation with Eliquis (units unknown) (unknown) (unknown) (no date) (unknown) (unknown) 8. Diabetes mellitus type 2 (units unknown) (unknown) (unknown) (no date) (unknown) (unknown) 9. Class 3 obesity with BMI of 42.2 (units unknown) (unknown) (unknown) (no date) (unknown) (unknown) ABD: Firm, obese, nontender, nondistended, bowel sounds present in all 4 (units unknown) (unknown) (unknown) (no date) (unknown) (unknown) Age/Sex: 57 / F (units unknown) (unknown) (unknown) (no date) (unknown) (unknown) As noted, outside documentation shows history of CKD 3. However here her GFR (units unknown) (unknown) (unknown) (no date) (unknown) (unknown) Assessment + Plan narrative: (units unknown) (unknown) (unknown) (no date) (unknown) (unknown) Assessment + Plan (units unknown) (unknown) (unknown) (no date) (unknown) (unknown) BUN 39 H (units unknown) (unknown) (unknown) (no date) (unknown) (unknown) BUN/Creatinine Ratio 34.2 H (units unknown) (unknown) (unknown) (no date) (unknown) (unknown) Baso # (Auto) 100 (units unknown) (unknown) (unknown) (no date) (unknown) (unknown) Baso % (Auto) 0.3 (units unknown) (unknown) (unknown) (no date) (unknown) (unknown) Blood Pressure 123/5 1 L 118/67 (units unknown) (unknown) (unknown) (no date) (unknown) (unknown) Blood pressures are normotensive here. Holding home lisinopril due to (units unknown) (unknown) (unknown) (no date) (unknown) (unknown) CHEST: Respiratory excursions symmetric, diffuse wheezes and coarse breath (units unknown) (unknown) (unknown) (no date) (unknown) (unknown) COPD (chronic obstructive pulmonary disease) (units unknown) (unknown) (unknown) (no date) (unknown) (unknown) CV: Regular rate and rhythm, no murmurs, rubs, gallops, PMI can not be palpated (units unknown) (unknown) (unknown) (no date) (unknown) (unknown) Calcium 8.9 (units unknown) (unknown) (unknown) (no date) (unknown) (unknown) Carbon Dioxide 39 H (units unknown) (unknown) (unknown) (no date) (unknown) (unknown) Chloride 92 L (units unknown) (unknown) (unknown) (no date) (unknown) (unknown) Code status (units unknown) (unknown) (unknown) (no date) (unknown) (unknown) Congestive heart failure noted on chest x-ray as well as on previous imaging (units unknown) (unknown) (unknown) (no date) (unknown) (unknown) Continue her outpatient respiratory medications. Received IV Solu-Medrol 80 mg (units unknown) (unknown) (unknown) (no date) (unknown) (unknown) Continue supportive care. Mucinex and tessalon perles ordered. (units unknown) (unknown) (unknown) (no date) (unknown) (unknown) Creatinine 1.14 H (units unknown) (unknown) (unknown) (no date) (unknown) (unknown) Critical Care time: (units unknown) (unknown) (unknown) (no date) (unknown) (unknown) : 1965 Acct:[id number] (units unknown) (unknown) (unknown) (no date) (unknown) (unknown) Date of Service: 07/24/22 (units unknown) (unknown) (unknown) (no date) (unknown) (unknown) Disposition (units unknown) (unknown) (unknown) (no date) (unknown) (unknown) Diuresed to euvolemia. Echo 07/25 with EF 25-30% withi severe global hypokinesis (units unknown) (unknown) (unknown) (no date) (unknown) (unknown) EXTR: Warm, well perfused, no clubbing/cyanosis/whit ma (units unknown) (unknown) (unknown) (no date) (unknown) (unknown) Eliquis (units unknown) (unknown) (unknown) (no date) (unknown) (unknown) Eos # (Auto) 0 (units unknown) (unknown) (unknown) (no date) (unknown) (unknown) Eos % (Auto) 0.0 L (units unknown) (unknown) (unknown) (no date) (unknown) (unknown) Estimated GFR 55 L (units unknown) (unknown) (unknown) (no date) (unknown) (unknown) Exam Narrative: (units unknown) (unknown) (unknown) (no date) (unknown) (unknown) Exam (units unknown) (unknown) (unknown) (no date) (unknown) (unknown) Fraction of Inspired Oxygen 36 (units unknown) (unknown) (unknown) (no date) (unknown) (unknown) Full (units unknown) (unknown) (unknown) (no date) (unknown) (unknown) GEN: Acutely and chronically ill-appearing middle-aged female, drowsy but (units unknown) (unknown) (unknown) (no date) (unknown) (unknown) Glucose 214 H (units unknown) (unknown) (unknown) (no date) (unknown) (unknown) HEENT: Normocephalic , face symmetric, pupils equal round reactive to light, (units unknown) (unknown) (unknown) (no date) (unknown) (unknown) Hct 47.3 H (units unknown) (unknown) (unknown) (no date) (unknown) (unknown) Her obesity puts her at significant risk of morbidity and mortality. Would (units unknown) (unknown) (unknown) (no date) (unknown) (unknown) Hgb 15.6 (units unknown) (unknown) (unknown) (no date) (unknown) (unknown) I spent a total of [ ] minutes of critical care time on this patient's care (units unknown) (unknown) (unknown) (no date) (unknown) (unknown) Interval history: (units unknown) (unknown) (unknown) (no date) (unknown) (unknown) [address] [address] (units unknown) (unknown) (unknown) (no date) (unknown) (unknown) Laboratory Results - last 24 hr (units unknown) (unknown) (unknown) (no date) (unknown) (unknown) Labs (units unknown) (unknown) (unknown) (no date) (unknown) (unknown) Labs: (units unknown) (unknown) (unknown) (no date) (unknown) (unknown) Likely home with HH in 2-3 more days. (units unknown) (unknown) (unknown) (no date) (unknown) (unknown) Lymph # (Auto) 500 L (units unknown) (unknown) (unknown) (no date) (unknown) (unknown) Lymph % (Auto) 3.0 L (units unknown) (unknown) (unknown) (no date) (unknown) (unknown) MCH 30.9 (units unknown) (unknown) (unknown) (no date) (unknown) (unknown) MCHC 33.0 (units unknown) (unknown) (unknown) (no date) (unknown) (unknown) MCV 93.7 (units unknown) (unknown) (unknown) (no date) (unknown) (unknown) Medical History (units unknown) (unknown) (unknown) (no date) (unknown) (unknown) Medrol 80 mg IV q.12 . Initially required bipap but now on 3L NC. Lasix and (units unknown) (unknown) (unknown) (no date) (unknown) (unknown) [place] # (Auto) 400 (units unknown) (unknown) (unknown) (no date) (unknown) (unknown) [place] % (Auto) 2.1 L (units unknown) (unknown) (unknown) (no date) (unknown) (unknown) NECK: Supple, no lymphadenopathy, can not palpate any thyroid nodularity, (units unknown) (unknown) (unknown) (no date) (unknown) (unknown) NEURO: Drowsy, follows simple commands, ears grossly intact (units unknown) (unknown) (unknown) (no date) (unknown) (unknown) Narrative (units unknown) (unknown) (unknown) (no date) (unknown) (unknown) Neut # (Auto) 43549 H (units unknown) (unknown) (unknown) (no date) (unknown) (unknown) Neut % (Auto) 94.6 H (units unknown) (unknown) (unknown) (no date) (unknown) (unknown) No RVR at this time. Regular on exam. Restarted home amio and eliquis. (units unknown) (unknown) (unknown) (no date) (unknown) (unknown) Not on statin. (units unknown) (unknown) (unknown) (no date) (unknown) (unknown) Objective (units unknown) (unknown) (unknown) (no date) (unknown) (unknown) On oral medications only per report. A1c at the outside facility was reported (units unknown) (unknown) (unknown) (no date) (unknown) (unknown) Oxygen Delivery Method Nasal Cannula (units unknown) (unknown) (unknown) (no date) (unknown) (unknown) Oxygen Flow Rate 4 4 (units unknown) (unknown) (unknown) (no date) (unknown) (unknown) Oxygen Flow Rate 4 (units unknown) (unknown) (unknown) (no date) (unknown) (unknown) PFSH (units unknown) (unknown) (unknown) (no date) (unknown) (unknown) PSYCH: Mood, affect, judgment, and insight can not be assessed (units unknown) (unknown) (unknown) (no date) (unknown) (unknown) Patient presents after leaving outside hospital Against Medical Advice after a 5 (units unknown) (unknown) (unknown) (no date) (unknown) (unknown) Patient's breathing somewhat better, but had a coughing fit this morning which (units unknown) (unknown) (unknown) (no date) (unknown) (unknown) Patient: Ester Benavides MR#: [id number] (units unknown) (unknown) (unknown) (no date) (unknown) (unknown) Per outside records, she reports receiving a shock a couple of times a year. I (units unknown) (unknown) (unknown) (no date) (unknown) (unknown) Plt Count 244 (units unknown) (unknown) (unknown) (no date) (unknown) (unknown) Potassium 4.8 (units unknown) (unknown) (unknown) (no date) (unknown) (unknown) Progress Note (units unknown) (unknown) (unknown) (no date) (unknown) (unknown) Prophylaxis (units unknown) (unknown) (unknown) (no date) (unknown) (unknown) Provider: Jerald Sanches D.O. (units unknown) (unknown) (unknown) (no date) (unknown) (unknown) Pulse Oximetry 96 95 93 (units unknown) (unknown) (unknown) (no date) (unknown) (unknown) Pulse Rate 56 L 60 64 (units unknown) (unknown) (unknown) (no date) (unknown) (unknown) RBC 5.05 (units unknown) (unknown) (unknown) (no date) (unknown) (unknown) RBC Morphology Eula l morphology (units unknown) (unknown) (unknown) (no date) (unknown) (unknown) RDW 13.8 (units unknown) (unknown) (unknown) (no date) (unknown) (unknown) Respiratory Rate 18 24 18 (units unknown) (unknown) (unknown) (no date) (unknown) (unknown) SKIN: Warm and dry, without rash (units unknown) (unknown) (unknown) (no date) (unknown) (unknown) SaO2/FiO2 Ratio 263 (units unknown) (unknown) (unknown) (no date) (unknown) (unknown) She tested positive both at the outside hospital and on admission here. She is (units unknown) (unknown) (unknown) (no date) (unknown) (unknown) Signed By:<Electronically signed by Jerald Sanches D.O.> (units unknown) (unknown) (unknown) (no date) (unknown) (unknown) Smoking Status: Current every day smoker (units unknown) (unknown) (unknown) (no date) (unknown) (unknown) Social History (units unknown) (unknown) (unknown) (no date) (unknown) (unknown) Sodium 133 L (units unknown) (unknown) (unknown) (no date) (unknown) (unknown) Subjective (units unknown) (unknown) (unknown) (no date) (unknown) (unknown) Temperature 98.6 F 97.0 F L (units unknown) (unknown) (unknown) (no date) (unknown) (unknown) Time Spent With Patient (units unknown) (unknown) (unknown) (no date) (unknown) (unknown) Troponin here is negative. On eliquis. (units unknown) (unknown) (unknown) (no date) (unknown) (unknown) URI symptoms for the duration of her hospitalization at the outside hospital. (units unknown) (unknown) (unknown) (no date) (unknown) (unknown) Vital Signs (units unknown) (unknown) (unknown) (no date) (unknown) (unknown) WBC 18.6 H (units unknown) (unknown) (unknown) (no date) (unknown) (unknown) [Embedded Image Not Available] (units unknown) (unknown) (unknown) (no date) (unknown) (unknown) afebrile. She does have a leukocytosis but this is likely steroid induced (units unknown) (unknown) (unknown) (no date) (unknown) (unknown) aldactone. (units unknown) (unknown) (unknown) (no date) (unknown) (unknown) am uncertain when sh e last had her device interrogated. (units unknown) (unknown) (unknown) (no date) (unknown) (unknown) and creatinine are normal. Will monitor. (units unknown) (unknown) (unknown) (no date) (unknown) (unknown) carotid arteries can not be heard over the BiPAP and respiratory noises (units unknown) (unknown) (unknown) (no date) (unknown) (unknown) daily due to elevate d sugars. (units unknown) (unknown) (unknown) (no date) (unknown) (unknown) day hospital stay. While there, she received diuresis, fluid restriction, IV (units unknown) (unknown) (unknown) (no date) (unknown) (unknown) department, she was hypoxic with room air saturations of 70%, tachypneic, and (units unknown) (unknown) (unknown) (no date) (unknown) (unknown) dependence, as I suspect she also has a component of obesity hypoventilation (units unknown) (unknown) (unknown) (no date) (unknown) (unknown) diamox stopped on 06/27 due to uptrending Cr. (units unknown) (unknown) (unknown) (no date) (unknown) (unknown) done at the outside hospital. No echocardiogram available in records to denote (units unknown) (unknown) (unknown) (no date) (unknown) (unknown) exacerbated by metapneumovirus. Received furosemide 40 mg IV b.i.d. and Solu (units unknown) (unknown) (unknown) (no date) (unknown) (unknown) extraocular movement s intact, sclerae anicteric, conjunctiva clear, (units unknown) (unknown) (unknown) (no date) (unknown) (unknown) greatly benefit from weight reduction. (units unknown) (unknown) (unknown) (no date) (unknown) (unknown) heart failure. Exam also indicates a component of COPD exacerbation likely (units unknown) (unknown) (unknown) (no date) (unknown) (unknown) household members: spouse (units unknown) (unknown) (unknown) (no date) (unknown) (unknown) lives independently: Yes (units unknown) (unknown) (unknown) (no date) (unknown) (unknown) noting severe respiratory distress. Chest x-ray reveals evidence of congestive (units unknown) (unknown) (unknown) (no date) (unknown) (unknown) of LV and inferior, posterolateral wall. Restarted home metoprolol and (units unknown) (unknown) (unknown) (no date) (unknown) (unknown) oropharyngeal exam can not be performed secondary to having BiPAP in place (units unknown) (unknown) (unknown) (no date) (unknown) (unknown) prednisone 40mg usman y to finish 5 days. (units unknown) (unknown) (unknown) (no date) (unknown) (unknown) presently complainin g of any pain. Would avoid opioids for now given her BiPAP (units unknown) (unknown) (unknown) (no date) (unknown) (unknown) q.12. Will start budesonide with Duo nebs 4 times daily scheduled. Now on po (units unknown) (unknown) (unknown) (no date) (unknown) (unknown) quadrants, body habitus limits exam (units unknown) (unknown) (unknown) (no date) (unknown) (unknown) rather than related to an infection as she was afebrile and not complaining of (units unknown) (unknown) (unknown) (no date) (unknown) (unknown) responsive, appears to be oriented to self and situation, no acute distress (units unknown) (unknown) (unknown) (no date) (unknown) (unknown) sounds (units unknown) (unknown) (unknown) (no date) (unknown) (unknown) steroids, and respiratory treatments. Upon arriving to our emergency (units unknown) (unknown) (unknown) (no date) (unknown) (unknown) syndrome. (units unknown) (unknown) (unknown) (no date) (unknown) (unknown) the severity of her congestive heart failure. Will obtain an echocardiogram. (units unknown) (unknown) (unknown) (no date) (unknown) (unknown) to be 8%. Will place on fingersticks and sliding scale. Added lantus 30 units (units unknown) (unknown) (unknown) (no date) (unknown) (unknown) today; this time is exclusive of procedural time. (units unknown) (unknown) (unknown) (no date) (unknown) (unknown) uncertain if she takes chronic opioid medication at baseline. She is not (units unknown) (unknown) (unknown) (no date) (unknown) (unknown) uptrending Cr. (units unknown) (unknown) Result panel 664 (unknown) (no date) (unknown) (unknown) 13.6 % (unknown) (unknown) (no date) (unknown) (unknown) 15.5 g/dl (unknown) (unknown) (no date) (unknown) (unknown) 16.8 x10 3/ul (unknown) (unknown) (no date) (unknown) (unknown) 258 x10 3/ul (unknown) (unknown) (no date) (unknown) (unknown) 30.4 pg (unknown) (unknown) (no date) (unknown) (unknown) 32.2 % (unknown) (unknown) (no date) (unknown) (unknown) 48.0 % (unknown) (unknown) (no date) (unknown) (unknown) 5.09 x10 6/ul (unknown) (unknown) (no date) (unknown) (unknown) 94.2 fl (unknown) Result panel 665 (unknown) (no date) (unknown) (unknown) 1.07 mg/dl (unknown) (unknown) (no date) (unknown) (unknown) 135 mmol/l (unknown) (unknown) (no date) (unknown) (unknown) 36 mmol/l (unknown) (unknown) (no date) (unknown) (unknown) 36.4 (units unknown) (unknown) (unknown) (no date) (unknown) (unknown) 39 mg/dl (unknown) (unknown) (no date) (unknown) (unknown) 4.8 mmol/l (unknown) (unknown) (no date) (unknown) (unknown) 60 ml/min (unknown) (unknown) (no date) (unknown) (unknown) 60 ml/min (unknown) (unknown) (no date) (unknown) (unknown) 77 mg/dl (unknown) (unknown) (no date) (unknown) (unknown) 77 mg/dl (unknown) (unknown) (no date) (unknown) (unknown) 9.1 mg/dl (unknown) (unknown) (no date) (unknown) (unknown) 97 mmol/l (unknown) Result panel 666 (unknown) (no date) (unknown) (unknown) 100 (units unknown) (unknown) (unknown) (no date) (unknown) (unknown) 13911 /ul (unknown) (unknown) (no date) (unknown) (unknown) 13.6 % (unknown) (unknown) (no date) (unknown) (unknown) 15.5 g/dl (unknown) (unknown) (no date) (unknown) (unknown) 16.8 x10 3/ul (unknown) (unknown) (no date) (unknown) (unknown) 17.0 % (unknown) (unknown) (no date) (unknown) (unknown) 258 x10 3/ul (unknown) (unknown) (no date) (unknown) (unknown) 3.0 % (unknown) (unknown) (no date) (unknown) (unknown) 30.4 pg (unknown) (unknown) (no date) (unknown) (unknown) 32.2 % (unknown) (unknown) (no date) (unknown) (unknown) 48.0 % (unknown) (unknown) (no date) (unknown) (unknown) 5.0 % (unknown) (unknown) (no date) (unknown) (unknown) 5.09 x10 6/ul (unknown) (unknown) (no date) (unknown) (unknown) 75.0 % (unknown) (unknown) (no date) (unknown) (unknown) 94.2 fl (unknown) (unknown) (no date) (unknown) (unknown) Normal Morphology (units unknown) (unknown) Result panel 667 (unknown) (no date) (unknown) (unknown) (no value) (units unknown) (unknown) (unknown) (no date) (unknown) (unknown) (past 8 hours): (units unknown) (unknown) (unknown) (no date) (unknown) (unknown) -continue oral prednisone 40 mg daily started on 07/26 through 07/30, continue (units unknown) (unknown) (unknown) (no date) (unknown) (unknown) -patient with improving course, back on baseline O2 requirements and hopefully (units unknown) (unknown) (unknown) (no date) (unknown) (unknown) 07/27/22 07/27/22 (units unknown) (unknown) (unknown) (no date) (unknown) (unknown) 07/27/22 06:17 (units unknown) (unknown) (unknown) (no date) (unknown) (unknown) 07/27/22 1412 (units unknown) (unknown) (unknown) (no date) (unknown) (unknown) 07/27/22 (units unknown) (unknown) (unknown) (no date) (unknown) (unknown) 06:17 06:17 (units unknown) (unknown) (unknown) (no date) (unknown) (unknown) 07:00 07/27/22 (units unknown) (unknown) (unknown) (no date) (unknown) (unknown) 08:33 07/27/22 (units unknown) (unknown) (unknown) (no date) (unknown) (unknown) 08:50 (units unknown) (unknown) (unknown) (no date) (unknown) (unknown) 1. Acute on chronic hypoxic and hypercarbic respiratory failure, improving (units unknown) (unknown) (unknown) (no date) (unknown) (unknown) 10. Reported CKD stage 3 (units unknown) (unknown) (unknown) (no date) (unknown) (unknown) 11. Chronic pain syndrome (units unknown) (unknown) (unknown) (no date) (unknown) (unknown) 11:46 07/27/22 (units unknown) (unknown) (unknown) (no date) (unknown) (unknown) 12. Hypertension (units unknown) (unknown) (unknown) (no date) (unknown) (unknown) 13. Hyperlipidemia (units unknown) (unknown) (unknown) (no date) (unknown) (unknown) 13:52 (units unknown) (unknown) (unknown) (no date) (unknown) (unknown) [address] (units unknown) (unknown) (unknown) (no date) (unknown) (unknown) 2. Acute on chronic systolic congestive heart failure exacerbation (units unknown) (unknown) (unknown) (no date) (unknown) (unknown) 3. COPD exacerbation , likely secondary to metapneumovirus infection (units unknown) (unknown) (unknown) (no date) (unknown) (unknown) 4. Metapneumovirus infection (units unknown) (unknown) (unknown) (no date) (unknown) (unknown) 5. Coronary artery disease with prior DC (units unknown) (unknown) (unknown) (no date) (unknown) (unknown) 6. History of cardia c arrest, status post pacemaker/AICD placement (units unknown) (unknown) (unknown) (no date) (unknown) (unknown) 7. Atrial fibrillation on chronic anticoagulation with Eliquis (units unknown) (unknown) (unknown) (no date) (unknown) (unknown) 8. Diabetes mellitus type 2 (units unknown) (unknown) (unknown) (no date) (unknown) (unknown) 9. Class 3 obesity with BMI of 42.2 (units unknown) (unknown) (unknown) (no date) (unknown) (unknown) Age/Sex: 57 / F (units unknown) (unknown) (unknown) (no date) (unknown) (unknown) As noted, outside documentation shows history of CKD 3.? However here her GFR (units unknown) (unknown) (unknown) (no date) (unknown) (unknown) Assessment + Plan narrative: (units unknown) (unknown) (unknown) (no date) (unknown) (unknown) Assessment + Plan (units unknown) (unknown) (unknown) (no date) (unknown) (unknown) Atypical Lymphs % 17.0 H (units unknown) (unknown) (unknown) (no date) (unknown) (unknown) BUN 39 H (units unknown) (unknown) (unknown) (no date) (unknown) (unknown) BUN/Creatinine Ratio 36.4 H (units unknown) (unknown) (unknown) (no date) (unknown) (unknown) Baso # (Auto) Not Reportable (units unknown) (unknown) (unknown) (no date) (unknown) (unknown) Baso % (Auto) Not Reportable (units unknown) (unknown) (unknown) (no date) (unknown) (unknown) Blood Pressure 101/5 7 L 101/57 L (units unknown) (unknown) (unknown) (no date) (unknown) (unknown) Blood Pressure (units unknown) (unknown) (unknown) (no date) (unknown) (unknown) Blood pressures are normotensive here.? Holding home lisinopril due to (units unknown) (unknown) (unknown) (no date) (unknown) (unknown) COPD (chronic obstructive pulmonary disease) (units unknown) (unknown) (unknown) (no date) (unknown) (unknown) Calcium 9.1 (units unknown) (unknown) (unknown) (no date) (unknown) (unknown) Cannula High Flow Nasal (units unknown) (unknown) (unknown) (no date) (unknown) (unknown) Cannula (units unknown) (unknown) (unknown) (no date) (unknown) (unknown) Carbon Dioxide 36 H (units unknown) (unknown) (unknown) (no date) (unknown) (unknown) Chloride 97 L (units unknown) (unknown) (unknown) (no date) (unknown) (unknown) Congestive heart failure noted on chest x-ray as well as on previous imaging (units unknown) (unknown) (unknown) (no date) (unknown) (unknown) Continue her outpatient respiratory medications. Received IV Solu-Medrol 80 mg (units unknown) (unknown) (unknown) (no date) (unknown) (unknown) Continue supportive care. Mucinex and tessalon perles ordered. (units unknown) (unknown) (unknown) (no date) (unknown) (unknown) Creatinine 1.07 H (units unknown) (unknown) (unknown) (no date) (unknown) (unknown) Critical Care time: (units unknown) (unknown) (unknown) (no date) (unknown) (unknown) : 1965 Acct:[id number] (units unknown) (unknown) (unknown) (no date) (unknown) (unknown) Date Patient Seen: 07/27/22 (units unknown) (unknown) (unknown) (no date) (unknown) (unknown) Date of Service: 07/24/22 (units unknown) (unknown) (unknown) (no date) (unknown) (unknown) Diuresed to euvolemia. Echo 07/25 with EF 25-30% withi severe global hypokinesis (units unknown) (unknown) (unknown) (no date) (unknown) (unknown) Eos % (Auto) Not Reportable (units unknown) (unknown) (unknown) (no date) (unknown) (unknown) Estimated GFR 60 (units unknown) (unknown) (unknown) (no date) (unknown) (unknown) Exam Narrative: (units unknown) (unknown) (unknown) (no date) (unknown) (unknown) Exam (units unknown) (unknown) (unknown) (no date) (unknown) (unknown) Extremities: No edema (units unknown) (unknown) (unknown) (no date) (unknown) (unknown) Fraction of Inspired Oxygen 36 (units unknown) (unknown) (unknown) (no date) (unknown) (unknown) General: Alert and cooperative (units unknown) (unknown) (unknown) (no date) (unknown) (unknown) Glucose 77 D (units unknown) (unknown) (unknown) (no date) (unknown) (unknown) Hct 48.0 H (units unknown) (unknown) (unknown) (no date) (unknown) (unknown) Her obesity puts her at significant risk of morbidity and mortality.? Would (units unknown) (unknown) (unknown) (no date) (unknown) (unknown) Hgb 15.5 (units unknown) (unknown) (unknown) (no date) (unknown) (unknown) I spent a total of [ ] minutes of critical care time on this patient's care (units unknown) (unknown) (unknown) (no date) (unknown) (unknown) Interval history: (units unknown) (unknown) (unknown) (no date) (unknown) (unknown) [address] [address] (units unknown) (unknown) (unknown) (no date) (unknown) (unknown) Laboratory Results - last 24 hr (units unknown) (unknown) (unknown) (no date) (unknown) (unknown) Labs (units unknown) (unknown) (unknown) (no date) (unknown) (unknown) Labs: (units unknown) (unknown) (unknown) (no date) (unknown) (unknown) Lungs: Diffuse inspiratory and expiratory wheeze (units unknown) (unknown) (unknown) (no date) (unknown) (unknown) Lymph # (Auto) Not Reportable (units unknown) (unknown) (unknown) (no date) (unknown) (unknown) Lymph % (Auto) Not Reportable (units unknown) (unknown) (unknown) (no date) (unknown) (unknown) Lymphocytes % (Manual) 5.0 L (units unknown) (unknown) (unknown) (no date) (unknown) (unknown) MCH 30.4 (units unknown) (unknown) (unknown) (no date) (unknown) (unknown) MCHC 32.2 (units unknown) (unknown) (unknown) (no date) (unknown) (unknown) MCV 94.2 (units unknown) (unknown) (unknown) (no date) (unknown) (unknown) Medical History (units unknown) (unknown) (unknown) (no date) (unknown) (unknown) Medrol 80 mg IV q.12.? Initially required bipap but now on 3L NC. Lasix and (units unknown) (unknown) (unknown) (no date) (unknown) (unknown) [place] # (Auto) Not Reportable (units unknown) (unknown) (unknown) (no date) (unknown) (unknown) [place] % (Auto) Not Reportable (units unknown) (unknown) (unknown) (no date) (unknown) (unknown) [place] % (Manual) 3.0 (units unknown) (unknown) (unknown) (no date) (unknown) (unknown) Narrative (units unknown) (unknown) (unknown) (no date) (unknown) (unknown) Neuro: Affect somewhat anxious, speech normal (units unknown) (unknown) (unknown) (no date) (unknown) (unknown) Neut % (Auto) Not Reportable (units unknown) (unknown) (unknown) (no date) (unknown) (unknown) Neutrophils # (Manual) 27020 H (units unknown) (unknown) (unknown) (no date) (unknown) (unknown) No RVR at this time. ? Regular on exam.? Restarted home amio and eliquis. (units unknown) (unknown) (unknown) (no date) (unknown) (unknown) Not on statin. (units unknown) (unknown) (unknown) (no date) (unknown) (unknown) Objective (units unknown) (unknown) (unknown) (no date) (unknown) (unknown) On oral medications only per report.? A1c at the outside facility was reported (units unknown) (unknown) (unknown) (no date) (unknown) (unknown) Oxygen Delivery Method High Flow Nasal Cannula (units unknown) (unknown) (unknown) (no date) (unknown) (unknown) Oxygen Delivery Method High Flow Nasal (units unknown) (unknown) (unknown) (no date) (unknown) (unknown) Oxygen Flow Rate 3 (units unknown) (unknown) (unknown) (no date) (unknown) (unknown) PFSH (units unknown) (unknown) (unknown) (no date) (unknown) (unknown) Patient does note some improvement in the cough and breathing. States there is (units unknown) (unknown) (unknown) (no date) (unknown) (unknown) Patient presents after leaving outside hospital Against Medical Advice after a 5 (units unknown) (unknown) (unknown) (no date) (unknown) (unknown) Patient: Ester Benavides MR#: [id number] (units unknown) (unknown) (unknown) (no date) (unknown) (unknown) Per outside records, she reports receiving a shock a couple of times a year.? I (units unknown) (unknown) (unknown) (no date) (unknown) (unknown) Plt Count 258 (units unknown) (unknown) (unknown) (no date) (unknown) (unknown) Potassium 4.8 (units unknown) (unknown) (unknown) (no date) (unknown) (unknown) Progress Note (units unknown) (unknown) (unknown) (no date) (unknown) (unknown) Provider: Elio Tavera MD (units unknown) (unknown) (unknown) (no date) (unknown) (unknown) Pulse Oximetry 91 92 (units unknown) (unknown) (unknown) (no date) (unknown) (unknown) Pulse Oximetry 92 93 (units unknown) (unknown) (unknown) (no date) (unknown) (unknown) Pulse Rate 61 63 (units unknown) (unknown) (unknown) (no date) (unknown) (unknown) Pulse Rate 62 60 (units unknown) (unknown) (unknown) (no date) (unknown) (unknown) RBC 5.09 (units unknown) (unknown) (unknown) (no date) (unknown) (unknown) RBC Morphology Eula l morphology (units unknown) (unknown) (unknown) (no date) (unknown) (unknown) RDW 13.6 (units unknown) (unknown) (unknown) (no date) (unknown) (unknown) Respiratory Rate 16 20 (units unknown) (unknown) (unknown) (no date) (unknown) (unknown) Respiratory Rate 18 18 (units unknown) (unknown) (unknown) (no date) (unknown) (unknown) SaO2/FiO2 Ratio 263 (units unknown) (unknown) (unknown) (no date) (unknown) (unknown) Seg Neutrophils % 75.0 H (units unknown) (unknown) (unknown) (no date) (unknown) (unknown) She tested positive both at the outside hospital and on admission here.? She is (units unknown) (unknown) (unknown) (no date) (unknown) (unknown) Signed By:<Electronically signed by Elio Tavera MD> (units unknown) (unknown) (unknown) (no date) (unknown) (unknown) Smoking Status: Current every day smoker (units unknown) (unknown) (unknown) (no date) (unknown) (unknown) Social History (units unknown) (unknown) (unknown) (no date) (unknown) (unknown) Sodium 135 L (units unknown) (unknown) (unknown) (no date) (unknown) (unknown) Subjective (units unknown) (unknown) (unknown) (no date) (unknown) (unknown) Temperature 97.9 F (units unknown) (unknown) (unknown) (no date) (unknown) (unknown) Temperature (units unknown) (unknown) (unknown) (no date) (unknown) (unknown) Time Spent With Patient (units unknown) (unknown) (unknown) (no date) (unknown) (unknown) Total Counted 100 (units unknown) (unknown) (unknown) (no date) (unknown) (unknown) Troponin here is negative. On eliquis. (units unknown) (unknown) (unknown) (no date) (unknown) (unknown) URI symptoms for the duration of her hospitalization at the outside hospital. (units unknown) (unknown) (unknown) (no date) (unknown) (unknown) Vital Signs (units unknown) (unknown) (unknown) (no date) (unknown) (unknown) WBC 16.8 H (units unknown) (unknown) (unknown) (no date) (unknown) (unknown) [Embedded Image Not Available] (units unknown) (unknown) (unknown) (no date) (unknown) (unknown) a lot of thick white or creamy phlegm. She is presently on 3 L NC. (units unknown) (unknown) (unknown) (no date) (unknown) (unknown) afebrile.? She does have a leukocytosis but this is likely steroid induced (units unknown) (unknown) (unknown) (no date) (unknown) (unknown) aldactone. (units unknown) (unknown) (unknown) (no date) (unknown) (unknown) am uncertain when sh e last had her device interrogated. (units unknown) (unknown) (unknown) (no date) (unknown) (unknown) and creatinine are normal.? Will monitor. (units unknown) (unknown) (unknown) (no date) (unknown) (unknown) can discharge home tomorrow, (units unknown) (unknown) (unknown) (no date) (unknown) (unknown) daily due to elevate d sugars. (units unknown) (unknown) (unknown) (no date) (unknown) (unknown) day hospital stay.? While there, she received diuresis, fluid restriction, IV (units unknown) (unknown) (unknown) (no date) (unknown) (unknown) department, she was hypoxic with room air saturations of 70%, tachypneic, and (units unknown) (unknown) (unknown) (no date) (unknown) (unknown) dependence, as I suspect she also has a component of obesity hypoventilation (units unknown) (unknown) (unknown) (no date) (unknown) (unknown) diamox stopped on 06/27 due to uptrending Cr. (units unknown) (unknown) (unknown) (no date) (unknown) (unknown) done at the outside hospital.? No echocardiogram available in records to denote (units unknown) (unknown) (unknown) (no date) (unknown) (unknown) exacerbated by metapneumovirus.? Received furosemide 40 mg IV b.i.d. and Solu (units unknown) (unknown) (unknown) (no date) (unknown) (unknown) greatly benefit from weight reduction. (units unknown) (unknown) (unknown) (no date) (unknown) (unknown) heart failure.? Exam also indicates a component of COPD exacerbation likely (units unknown) (unknown) (unknown) (no date) (unknown) (unknown) household members: spouse (units unknown) (unknown) (unknown) (no date) (unknown) (unknown) lives independently: Yes (units unknown) (unknown) (unknown) (no date) (unknown) (unknown) nebs with RT, continue guaifenesin (units unknown) (unknown) (unknown) (no date) (unknown) (unknown) noting severe respiratory distress.? Chest x-ray reveals evidence of congestive (units unknown) (unknown) (unknown) (no date) (unknown) (unknown) of LV and inferior, posterolateral wall. Restarted home metoprolol and (units unknown) (unknown) (unknown) (no date) (unknown) (unknown) prednisone 40mg usman y to finish 5 days. (units unknown) (unknown) (unknown) (no date) (unknown) (unknown) presently complainin g of any pain.? Would avoid opioids for now given her BiPAP (units unknown) (unknown) (unknown) (no date) (unknown) (unknown) q.12.? Will start budesonide with Duo nebs 4 times daily scheduled. Now on po (units unknown) (unknown) (unknown) (no date) (unknown) (unknown) rather than related to an infection as she was afebrile and not complaining of (units unknown) (unknown) (unknown) (no date) (unknown) (unknown) steroids, and respiratory treatments.? Upon arriving to our emergency (units unknown) (unknown) (unknown) (no date) (unknown) (unknown) syndrome. (units unknown) (unknown) (unknown) (no date) (unknown) (unknown) the severity of her congestive heart failure.? Will obtain an echocardiogram.? (units unknown) (unknown) (unknown) (no date) (unknown) (unknown) to be 8%.? Will plac e on fingersticks and sliding scale. Added lantus 30 units (units unknown) (unknown) (unknown) (no date) (unknown) (unknown) today; this time is exclusive of procedural time. (units unknown) (unknown) (unknown) (no date) (unknown) (unknown) uncertain if she takes chronic opioid medication at baseline.? She is not (units unknown) (unknown) (unknown) (no date) (unknown) (unknown) uptrending Cr. (units unknown) (unknown) Result panel 668 (unknown) (no date) (unknown) (unknown) (no value) (units unknown) (unknown) (unknown) (no date) (unknown) (unknown) (past 8 hours): (units unknown) (unknown) (unknown) (no date) (unknown) (unknown) 07/24/22 13:14 (units unknown) (unknown) (unknown) (no date) (unknown) (unknown) 07/24/22 13:53 (units unknown) (unknown) (unknown) (no date) (unknown) (unknown) 07/24/22 13:59 (units unknown) (unknown) (unknown) (no date) (unknown) (unknown) 07/24/22 14:03 (units unknown) (unknown) (unknown) (no date) (unknown) (unknown) 07/27/22 06:17 (units unknown) (unknown) (unknown) (no date) (unknown) (unknown) 07/28/22 (units unknown) (unknown) (unknown) (no date) (unknown) (unknown) 04:00 07/28/22 (units unknown) (unknown) (unknown) (no date) (unknown) (unknown) 08:00 (units unknown) (unknown) (unknown) (no date) (unknown) (unknown) 08:26 (units unknown) (unknown) (unknown) (no date) (unknown) (unknown) 08:36 07/28/22 (units unknown) (unknown) (unknown) (no date) (unknown) (unknown) 09:24 07/28/22 (units unknown) (unknown) (unknown) (no date) (unknown) (unknown) 1 tab PO Q6H PRN (Reason: Pain (Scale Score 4-6)) (units unknown) (unknown) (unknown) (no date) (unknown) (unknown) 10 mg PO DAILY (units unknown) (unknown) (unknown) (no date) (unknown) (unknown) 100 mg PO BID (units unknown) (unknown) (unknown) (no date) (unknown) (unknown) 100 mg PO DAILY (units unknown) (unknown) (unknown) (no date) (unknown) (unknown) 15.8, hematocrit 40.5, platelets 320. Chemistry revealed a sodium of 136, (units unknown) (unknown) (unknown) (no date) (unknown) (unknown) [id number] (units unknown) (unknown) (unknown) (no date) (unknown) (unknown) 2 inh INHALATION BID (units unknown) (unknown) (unknown) (no date) (unknown) (unknown) 2 puff INHALATION QI D PRN (Reason: Shortness Of Breath) (units unknown) (unknown) (unknown) (no date) (unknown) (unknown) 25 mg PO DAILY (units unknown) (unknown) (unknown) (no date) (unknown) (unknown) 3 L of oxygen continuously), chronic systolic congestive heart failure, coronary (units unknown) (unknown) (unknown) (no date) (unknown) (unknown) 40 mg PO BID (units unknown) (unknown) (unknown) (no date) (unknown) (unknown) 40 mg PO DAILY Qty: 3 0RF (units unknown) (unknown) (unknown) (no date) (unknown) (unknown) 5 mg PO BID (units unknown) (unknown) (unknown) (no date) (unknown) (unknown) 5 mg PO DAILY Qty: 3 0RF (units unknown) (unknown) (unknown) (no date) (unknown) (unknown) 5 mg PO DAILY Qty: 3 0 3RF (units unknown) (unknown) (unknown) (no date) (unknown) (unknown) 5 mg PO DAILY (units unknown) (unknown) (unknown) (no date) (unknown) (unknown) 5 mg PO Q4HR PRN (Reason: pain) Qty: 20 0RF (units unknown) (unknown) (unknown) (no date) (unknown) (unknown) 50, bicarb 48, O2 sa t 84% on 40% FiO2. Due to her persistent respiratory (units unknown) (unknown) (unknown) (no date) (unknown) (unknown) 57-year-old female with COPD, chronic hypoxic respiratory failure (prescribed 2 (units unknown) (unknown) (unknown) (no date) (unknown) (unknown) Age/Sex: 57 / F (units unknown) (unknown) (unknown) (no date) (unknown) (unknown) Elio Vogel MD (units unknown) (unknown) (unknown) (no date) (unknown) (unknown) Blood Pressure 118/5 5 L (units unknown) (unknown) (unknown) (no date) (unknown) (unknown) Blood Pressure 118/5 9 L 118/59 L (units unknown) (unknown) (unknown) (no date) (unknown) (unknown) COPD (chronic obstructive pulmonary disease) (units unknown) (unknown) (unknown) (no date) (unknown) (unknown) Cannula High Flow Nasal (units unknown) (unknown) (unknown) (no date) (unknown) (unknown) Cannula (units unknown) (unknown) (unknown) (no date) (unknown) (unknown) Chief complaint: Sob , 'congestive heart failure' per pt (units unknown) (unknown) (unknown) (no date) (unknown) (unknown) Comment: (units unknown) (unknown) (unknown) (no date) (unknown) (unknown) Consult to Cardio/Pulmonary Rehabilitation Routine (units unknown) (unknown) (unknown) (no date) (unknown) (unknown) Consult to Discharge Planning Routine (units unknown) (unknown) (unknown) (no date) (unknown) (unknown) Consult to Occupational Therapy Evaluate + Treat (units unknown) (unknown) (unknown) (no date) (unknown) (unknown) Consult to Physical Therapy Evaluate + Treat (units unknown) (unknown) (unknown) (no date) (unknown) (unknown) Consult to Tele-credit officer Routine (units unknown) (unknown) (unknown) (no date) (unknown) (unknown) Consulting Provider: [facility] [employer] (units unknown) (unknown) (unknown) (no date) (unknown) (unknown) Consults: (units unknown) (unknown) (unknown) (no date) (unknown) (unknown) Continued (units unknown) (unknown) (unknown) (no date) (unknown) (unknown) : 1965 Acct:[id number] (units unknown) (unknown) (unknown) (no date) (unknown) (unknown) Date of Service: 07/24/22 (units unknown) (unknown) (unknown) (no date) (unknown) (unknown) Date of admission: (units unknown) (unknown) (unknown) (no date) (unknown) (unknown) Discharge Data (units unknown) (unknown) (unknown) (no date) (unknown) (unknown) Discharge Plan (units unknown) (unknown) (unknown) (no date) (unknown) (unknown) Discharge Providers (units unknown) (unknown) (unknown) (no date) (unknown) (unknown) Discharge Summary (units unknown) (unknown) (unknown) (no date) (unknown) (unknown) Discharge orders + Medications (units unknown) (unknown) (unknown) (no date) (unknown) (unknown) Discharge provider: (units unknown) (unknown) (unknown) (no date) (unknown) (unknown) Eliquis 5 mg tablet (units unknown) (unknown) (unknown) (no date) (unknown) (unknown) Exam (units unknown) (unknown) (unknown) (no date) (unknown) (unknown) Follow up/Referrals: (units unknown) (unknown) (unknown) (no date) (unknown) (unknown) Fraction of Inspired Oxygen 32 (units unknown) (unknown) (unknown) (no date) (unknown) (unknown) Health on July 19, 2022. She presented complaining of a 1 day history of severe (units unknown) (unknown) (unknown) (no date) (unknown) (unknown) Health today after a 5 day hospitalization. Patient was admitted to [facility] (units unknown) (unknown) (unknown) (no date) (unknown) (unknown) Her primary care provider referred her to hospice in June of this year. She (units unknown) (unknown) (unknown) (no date) (unknown) (unknown) History of Present Illness (units unknown) (unknown) (unknown) (no date) (unknown) (unknown) INHALE 2 PUFFS BY MOUTH 4 TIMES DAILY NEEDED (units unknown) (unknown) (unknown) (no date) (unknown) (unknown) Initial lactate was 2.2. ALT was elevated at 74. BNP was 2860. Troponin was (units unknown) (unknown) (unknown) (no date) (unknown) (unknown) [address] [address] (units unknown) (unknown) (unknown) (no date) (unknown) (unknown) Rohini Ceron PA-C (units unknown) (unknown) (unknown) (no date) (unknown) (unknown) L via nasal cannula due to continuing low oxygen saturations. Labs revealed a (units unknown) (unknown) (unknown) (no date) (unknown) (unknown) Labs (units unknown) (unknown) (unknown) (no date) (unknown) (unknown) Medical History (units unknown) (unknown) (unknown) (no date) (unknown) (unknown) Narrative: (units unknown) (unknown) (unknown) (no date) (unknown) (unknown) New (units unknown) (unknown) (unknown) (no date) (unknown) (unknown) Objective (units unknown) (unknown) (unknown) (no date) (unknown) (unknown) On arrival to the emergency department, patient was noted to be hypoxic at 78% (units unknown) (unknown) (unknown) (no date) (unknown) (unknown) Oxygen Delivery Method High Flow Nasal Cannula (units unknown) (unknown) (unknown) (no date) (unknown) (unknown) Oxygen Delivery Method High Flow Nasal (units unknown) (unknown) (unknown) (no date) (unknown) (unknown) Oxygen Delivery Method Nasal Cannula (units unknown) (unknown) (unknown) (no date) (unknown) (unknown) Oxygen Flow Rate 3 3 3 (units unknown) (unknown) (unknown) (no date) (unknown) (unknown) Oxygen Flow Rate 3 3 (units unknown) (unknown) (unknown) (no date) (unknown) (unknown) Oxygen Flow Rate 3 (units unknown) (unknown) (unknown) (no date) (unknown) (unknown) PFSH (units unknown) (unknown) (unknown) (no date) (unknown) (unknown) Patient Comments: (units unknown) (unknown) (unknown) (no date) (unknown) (unknown) Patient Disposition: Home Health Service (units unknown) (unknown) (unknown) (no date) (unknown) (unknown) Patient: Ester Benavides MR#: [id number] (units unknown) (unknown) (unknown) (no date) (unknown) (unknown) Physician Instructions: Evaluate and Treat (units unknown) (unknown) (unknown) (no date) (unknown) (unknown) Physician Instructions: Evaluate and treat (units unknown) (unknown) (unknown) (no date) (unknown) (unknown) Prescriptions: (units unknown) (unknown) (unknown) (no date) (unknown) (unknown) Primary Care Provider: Rohini Ceron (units unknown) (unknown) (unknown) (no date) (unknown) (unknown) Primary care physician: (units unknown) (unknown) (unknown) (no date) (unknown) (unknown) Provider (units unknown) (unknown) (unknown) (no date) (unknown) (unknown) Provider: Elio Vogel MD (units unknown) (unknown) (unknown) (no date) (unknown) (unknown) Pulse Oximetry 93 93 95 (units unknown) (unknown) (unknown) (no date) (unknown) (unknown) Pulse Oximetry 96 94 (units unknown) (unknown) (unknown) (no date) (unknown) (unknown) Pulse Rate 60 59 L (units unknown) (unknown) (unknown) (no date) (unknown) (unknown) Pulse Rate 61 (units unknown) (unknown) (unknown) (no date) (unknown) (unknown) 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 (units unknown) (unknown) (unknown) (no date) (unknown) (unknown) Respiratory Rate 18 (units unknown) (unknown) (unknown) (no date) (unknown) (unknown) Respiratory Rate 24 16 (units unknown) (unknown) (unknown) (no date) (unknown) (unknown) SaO2/FiO2 Ratio 290 (units unknown) (unknown) (unknown) (no date) (unknown) (unknown) Signed By: (units unknown) (unknown) (unknown) (no date) (unknown) (unknown) Smoking Status: Current every day smoker (units unknown) (unknown) (unknown) (no date) (unknown) (unknown) Social History (units unknown) (unknown) (unknown) (no date) (unknown) (unknown) Stand Alone Forms: Patient Portal/API (units unknown) (unknown) (unknown) (no date) (unknown) (unknown) TAKE 1 TABLET BY MOUTH EVERY 6 HOURS NEEDED FOR PAIN (units unknown) (unknown) (unknown) (no date) (unknown) (unknown) TAKE 1 TABLET BY MOUTH ONCE DAILY (units unknown) (unknown) (unknown) (no date) (unknown) (unknown) TAKE 1 TABLET BY MOUTH TWICE DAILY (units unknown) (unknown) (unknown) (no date) (unknown) (unknown) TAKE 1/2 (ONE-HALF) TABLET BY MOUTH ONCE DAILY (units unknown) (unknown) (unknown) (no date) (unknown) (unknown) Temperature 97.0 F L (units unknown) (unknown) (unknown) (no date) (unknown) (unknown) Temperature 97.7 F (units unknown) (unknown) (unknown) (no date) (unknown) (unknown) Transfer to: [facility] (units unknown) (unknown) (unknown) (no date) (unknown) (unknown) Visit Report/Discharge Packet (units unknown) (unknown) (unknown) (no date) (unknown) (unknown) Vital Signs (units unknown) (unknown) (unknown) (no date) (unknown) (unknown) [facility] and brought her to [facility] Emergency Department. (units unknown) (unknown) (unknown) (no date) (unknown) (unknown) Rohini Ceron PA-C [Primary Care Provider] (units unknown) (unknown) (unknown) (no date) (unknown) (unknown) [Embedded Image Not Available] (units unknown) (unknown) (unknown) (no date) (unknown) (unknown) admitted with acute on chronic hypoxic respiratory failure felt to be secondary (units unknown) (unknown) (unknown) (no date) (unknown) (unknown) aggressive interventions for her disease processes. With regard to her coronary (units unknown) (unknown) (unknown) (no date) (unknown) (unknown) albuterol sulfate [Ventolin HFA] 90 mcg/actuation HFA aerosol inhaler (units unknown) (unknown) (unknown) (no date) (unknown) (unknown) amiodarone 200 mg tablet (units unknown) (unknown) (unknown) (no date) (unknown) (unknown) artery disease with her 1st DC at age 29 previous cardiac arrest status post (units unknown) (unknown) (unknown) (no date) (unknown) (unknown) artery disease, she reportedly has had multiple MIs as noted with the 1st 1 (units unknown) (unknown) (unknown) (no date) (unknown) (unknown) be the etiology of her COPD exacerbation. On July 22, she was able to be (units unknown) (unknown) (unknown) (no date) (unknown) (unknown) budesonide 90 mcg/actuation Aerosol Powdr Breath Activated (units unknown) (unknown) (unknown) (no date) (unknown) (unknown) class 3 obesity, who presented after leaving Against Medical Advice from [facility] (units unknown) (unknown) (unknown) (no date) (unknown) (unknown) combination of both congestive heart failure and COPD exacerbation. She was (units unknown) (unknown) (unknown) (no date) (unknown) (unknown) department to the ICU. RT notes since BiPAP has been placed, her respiratory (units unknown) (unknown) (unknown) (no date) (unknown) (unknown) distress and overall fatigue, BiPAP was placed upon transfer from the emergency (units unknown) (unknown) (unknown) (no date) (unknown) (unknown) diuretics, fluid restriction of 2000 cc, IV Solu-Medrol, and her usual home (units unknown) (unknown) (unknown) (no date) (unknown) (unknown) due to her shortness of breath. She was given steroids and found to have a (units unknown) (unknown) (unknown) (no date) (unknown) (unknown) feeling better with the BiPAP. She also reiterates her full code status. (units unknown) (unknown) (unknown) (no date) (unknown) (unknown) furosemide 40 mg tablet (units unknown) (unknown) (unknown) (no date) (unknown) (unknown) glipizide [Glucotrol XL] 5 mg tablet extended release 24hr (units unknown) (unknown) (unknown) (no date) (unknown) (unknown) granddaughter bring in potato chips and extra fluids due to complaining of (units unknown) (unknown) (unknown) (no date) (unknown) (unknown) granddaughter reported over the month prior she had been increasing it to 4 L (units unknown) (unknown) (unknown) (no date) (unknown) (unknown) had an informational visit with hospice but reported she continued to want (units unknown) (unknown) (unknown) (no date) (unknown) (unknown) household members: spouse (units unknown) (unknown) (unknown) (no date) (unknown) (unknown) hydrocodone-acetamin o phen 5-325 mg tablet (units unknown) (unknown) (unknown) (no date) (unknown) (unknown) hypoxic in the emergency department and required supplemental O2. She was (units unknown) (unknown) (unknown) (no date) (unknown) (unknown) in room air. She cam e up to 89% on 4 L. Respiratory rate increased over her (units unknown) (unknown) (unknown) (no date) (unknown) (unknown) leave Against Medica l Advice. She was noted to take her oxygen off and have (units unknown) (unknown) (unknown) (no date) (unknown) (unknown) less than 0.012. Again human metapneumovirus was positive. All other viral (units unknown) (unknown) (unknown) (no date) (unknown) (unknown) lisinopril 5 mg tablet (units unknown) (unknown) (unknown) (no date) (unknown) (unknown) lives independently: Yes (units unknown) (unknown) (unknown) (no date) (unknown) (unknown) medications. She did test positive for human metapneumovirus which was felt to (units unknown) (unknown) (unknown) (no date) (unknown) (unknown) metoprolol succinate 100 mg Tablet Extended Release 24 Hr (units unknown) (unknown) (unknown) (no date) (unknown) (unknown) montelukast 10 mg Tablet (units unknown) (unknown) (unknown) (no date) (unknown) (unknown) occurring at age 29. (units unknown) (unknown) (unknown) (no date) (unknown) (unknown) of severe shortness of breath, an ABG was performed. PH was 7.45, pCO2 69, PO2 (units unknown) (unknown) (unknown) (no date) (unknown) (unknown) oxycodone 5 mg Tablet (units unknown) (unknown) (unknown) (no date) (unknown) (unknown) pacemaker/AICD placement, diabetes mellitus type 2 on oral antidiabetic agents, (units unknown) (unknown) (unknown) (no date) (unknown) (unknown) potassium 4.1, chloride 90, bicarb 38, BUN 41, creatinine 0.8, glucose 248. (units unknown) (unknown) (unknown) (no date) (unknown) (unknown) prednisone 20 mg Tablet (units unknown) (unknown) (unknown) (no date) (unknown) (unknown) prednisone 5 mg tablet (units unknown) (unknown) (unknown) (no date) (unknown) (unknown) pulmonary vascular congestion. Due to worsening anemia and patient complaints (units unknown) (unknown) (unknown) (no date) (unknown) (unknown) respiratory studies were negative. Chest x-ray revealed cardiomegaly with (units unknown) (unknown) (unknown) (no date) (unknown) (unknown) sats down to 70% debby m air. She ultimately had her granddaughter take her from (units unknown) (unknown) (unknown) (no date) (unknown) (unknown) shortness of breath. She reported using 2-3 L of oxygen continuously but her (units unknown) (unknown) (unknown) (no date) (unknown) (unknown) spironolactone 25 mg tablet (units unknown) (unknown) (unknown) (no date) (unknown) (unknown) status is improved. She is presently on FiO2 of 35%. She does answer questions (units unknown) (unknown) (unknown) (no date) (unknown) (unknown) thirst well on the fluid restricted diet. This morning, patient requested to (units unknown) (unknown) (unknown) (no date) (unknown) (unknown) time in the emergenc y department to a max of 38. She did require titration to 5 (units unknown) (unknown) (unknown) (no date) (unknown) (unknown) to acute on chronic systolic CHF and COPD exacerbation. She was placed on IV (units unknown) (unknown) (unknown) (no date) (unknown) (unknown) weaned from 4 L of oxygen to 3 L of oxygen. However, patient was having her (units unknown) (unknown) (unknown) (no date) (unknown) (unknown) white blood cell count of 20.6 (it was 16 at [facility] today), hemoglobin (units unknown) (unknown) (unknown) (no date) (unknown) (unknown) with a brief shake her head yes or no. She does outer head yes that she is (units unknown) (unknown) Result panel [id number] (unknown) (no date) (unknown) (unknown) (no value) (units unknown) (unknown) (unknown) (no date) (unknown) (unknown) (past 8 hours): (units unknown) (unknown) (unknown) (no date) (unknown) (unknown) -continue oral prednisone 40 mg daily started on 07/26 through 07/30, continue (units unknown) (unknown) (unknown) (no date) (unknown) (unknown) -patient had oxygen baseline and feels well enough to go home on July 28. (units unknown) (unknown) (unknown) (no date) (unknown) (unknown) 07/24/22 13:14 (units unknown) (unknown) (unknown) (no date) (unknown) (unknown) 07/24/22 13:53 (units unknown) (unknown) (unknown) (no date) (unknown) (unknown) 07/24/22 13:59 (units unknown) (unknown) (unknown) (no date) (unknown) (unknown) 07/24/22 14:03 (units unknown) (unknown) (unknown) (no date) (unknown) (unknown) 07/27/22 06:17 (units unknown) (unknown) (unknown) (no date) (unknown) (unknown) 07/28/22 1350 (units unknown) (unknown) (unknown) (no date) (unknown) (unknown) 07/28/22 (units unknown) (unknown) (unknown) (no date) (unknown) (unknown) 04:00 07/28/22 (units unknown) (unknown) (unknown) (no date) (unknown) (unknown) 08:00 (units unknown) (unknown) (unknown) (no date) (unknown) (unknown) 08:26 (units unknown) (unknown) (unknown) (no date) (unknown) (unknown) 08:36 07/28/22 (units unknown) (unknown) (unknown) (no date) (unknown) (unknown) 09:24 07/28/22 (units unknown) (unknown) (unknown) (no date) (unknown) (unknown) 1 tab PO Q6H PRN (Reason: Pain (Scale Score 4-6)) (units unknown) (unknown) (unknown) (no date) (unknown) (unknown) 1. Acute on chronic hypoxic and hypercarbic respiratory failure, improving (units unknown) (unknown) (unknown) (no date) (unknown) (unknown) 10 mg PO DAILY (units unknown) (unknown) (unknown) (no date) (unknown) (unknown) 10. Reported CKD stage 3, present on admission and stable. (units unknown) (unknown) (unknown) (no date) (unknown) (unknown) 100 mg PO BID (units unknown) (unknown) (unknown) (no date) (unknown) (unknown) 100 mg PO DAILY (units unknown) (unknown) (unknown) (no date) (unknown) (unknown) 11. Chronic pain syndrome, present on admission and stable. (units unknown) (unknown) (unknown) (no date) (unknown) (unknown) 12. Hypertension, present on admission and stable. (units unknown) (unknown) (unknown) (no date) (unknown) (unknown) 13. Hyperlipidemia, present on admission and stable. (units unknown) (unknown) (unknown) (no date) (unknown) (unknown) 15.8, hematocrit 40.5, platelets 320. Chemistry revealed a sodium of 136, (units unknown) (unknown) (unknown) (no date) (unknown) (unknown) [id number] (units unknown) (unknown) (unknown) (no date) (unknown) (unknown) 2 inh INHALATION BID (units unknown) (unknown) (unknown) (no date) (unknown) (unknown) 2 puff INHALATION QI D PRN (Reason: Shortness Of Breath) (units unknown) (unknown) (unknown) (no date) (unknown) (unknown) 2. Acute on chronic systolic congestive heart failure exacerbation, present on (units unknown) (unknown) (unknown) (no date) (unknown) (unknown) 25 mg PO DAILY (units unknown) (unknown) (unknown) (no date) (unknown) (unknown) 3 L of oxygen continuously), chronic systolic congestive heart failure, coronary (units unknown) (unknown) (unknown) (no date) (unknown) (unknown) 3. COPD exacerbation , likely secondary to metapneumovirus infection. Present on (units unknown) (unknown) (unknown) (no date) (unknown) (unknown) 4. Metapneumovirus infection. Present on admission and improved. (units unknown) (unknown) (unknown) (no date) (unknown) (unknown) 40 mg PO BID (units unknown) (unknown) (unknown) (no date) (unknown) (unknown) 40 mg PO DAILY Qty: 3 0RF (units unknown) (unknown) (unknown) (no date) (unknown) (unknown) 5 mg PO BID (units unknown) (unknown) (unknown) (no date) (unknown) (unknown) 5 mg PO DAILY Qty: 3 0RF (units unknown) (unknown) (unknown) (no date) (unknown) (unknown) 5 mg PO DAILY Qty: 3 0 3RF (units unknown) (unknown) (unknown) (no date) (unknown) (unknown) 5 mg PO DAILY (units unknown) (unknown) (unknown) (no date) (unknown) (unknown) 5 mg PO Q4HR PRN (Reason: pain) Qty: 20 0RF (units unknown) (unknown) (unknown) (no date) (unknown) (unknown) 5. Coronary artery disease with prior DC, present on admission and stable. (units unknown) (unknown) (unknown) (no date) (unknown) (unknown) 50, bicarb 48, O2 sa t 84% on 40% FiO2. Due to her persistent respiratory (units unknown) (unknown) (unknown) (no date) (unknown) (unknown) 57-year-old female with COPD, chronic hypoxic respiratory failure (prescribed 2 (units unknown) (unknown) (unknown) (no date) (unknown) (unknown) 6. History of cardia c arrest, status post pacemaker/AICD placement. Present on (units unknown) (unknown) (unknown) (no date) (unknown) (unknown) 7. Atrial fibrillation on chronic anticoagulation with Eliquis. Present on (units unknown) (unknown) (unknown) (no date) (unknown) (unknown) 8. Diabetes mellitus type 2. Present on admission and stable. (units unknown) (unknown) (unknown) (no date) (unknown) (unknown) 9. Class 3 obesity with BMI of 42.2. Present on admission and stable. (units unknown) (unknown) (unknown) (no date) (unknown) (unknown) Activity: As tolerated. (units unknown) (unknown) (unknown) (no date) (unknown) (unknown) Acute on chronic hypoxic hypercarbic respiratory failure, present on admission (units unknown) (unknown) (unknown) (no date) (unknown) (unknown) Acute on chronic systolic congestive heart failure, present on admission and (units unknown) (unknown) (unknown) (no date) (unknown) (unknown) Age/Sex: 57 / F (units unknown) (unknown) (unknown) (no date) (unknown) (unknown) Elio Vogel MD (units unknown) (unknown) (unknown) (no date) (unknown) (unknown) As noted, outside documentation shows history of CKD 3.? However here her GFR (units unknown) (unknown) (unknown) (no date) (unknown) (unknown) Assessment and Plan (units unknown) (unknown) (unknown) (no date) (unknown) (unknown) Assessment: (units unknown) (unknown) (unknown) (no date) (unknown) (unknown) Atrial Fibrillation, present on admission and stable. (units unknown) (unknown) (unknown) (no date) (unknown) (unknown) Blood Pressure 118/5 5 L (units unknown) (unknown) (unknown) (no date) (unknown) (unknown) Blood Pressure 118/5 9 L 118/59 L (units unknown) (unknown) (unknown) (no date) (unknown) (unknown) Blood pressures are normotensive here.? Holding home lisinopril due to (units unknown) (unknown) (unknown) (no date) (unknown) (unknown) COPD (chronic obstructive pulmonary disease) (units unknown) (unknown) (unknown) (no date) (unknown) (unknown) COPD exacerbation, present on admission and improved. (units unknown) (unknown) (unknown) (no date) (unknown) (unknown) Cannula High Flow Nasal (units unknown) (unknown) (unknown) (no date) (unknown) (unknown) Cannula (units unknown) (unknown) (unknown) (no date) (unknown) (unknown) Cardiomegaly and pulmonary Edema. (units unknown) (unknown) (unknown) (no date) (unknown) (unknown) Cardiomegaly and pulmonary edema. (units unknown) (unknown) (unknown) (no date) (unknown) (unknown) Chest x-ray: (units unknown) (unknown) (unknown) (no date) (unknown) (unknown) Chief complaint: Sob , 'congestive heart failure' per pt (units unknown) (unknown) (unknown) (no date) (unknown) (unknown) Chronic kidney disease 3, present on admission and stable. (units unknown) (unknown) (unknown) (no date) (unknown) (unknown) Class 3 obesity, present on admission and active (units unknown) (unknown) (unknown) (no date) (unknown) (unknown) Cognitive/behavioral status at discharge: oriented (units unknown) (unknown) (unknown) (no date) (unknown) (unknown) Comment: (units unknown) (unknown) (unknown) (no date) (unknown) (unknown) Congestive heart failure noted on chest x-ray as well as on previous imaging (units unknown) (unknown) (unknown) (no date) (unknown) (unknown) Consult to Cardio/Pulmonary Rehabilitation Routine (units unknown) (unknown) (unknown) (no date) (unknown) (unknown) Consult to Discharge Planning Routine (units unknown) (unknown) (unknown) (no date) (unknown) (unknown) Consult to Occupational Therapy Evaluate + Treat (units unknown) (unknown) (unknown) (no date) (unknown) (unknown) Consult to Physical Therapy Evaluate + Treat (units unknown) (unknown) (unknown) (no date) (unknown) (unknown) Consult to Tele-credit officer Routine (units unknown) (unknown) (unknown) (no date) (unknown) (unknown) Consulting Provider: [facility] [employer] (units unknown) (unknown) (unknown) (no date) (unknown) (unknown) Consults: (units unknown) (unknown) (unknown) (no date) (unknown) (unknown) Continue her outpatient respiratory medications. Received IV Solu-Medrol 80 mg (units unknown) (unknown) (unknown) (no date) (unknown) (unknown) Continue supportive care. Mucinex and tessalon perles ordered. (units unknown) (unknown) (unknown) (no date) (unknown) (unknown) Continued (units unknown) (unknown) (unknown) (no date) (unknown) (unknown) Coronary artery disease, present on admission and stable. (units unknown) (unknown) (unknown) (no date) (unknown) (unknown) : 1965 Acct:[id number] (units unknown) (unknown) (unknown) (no date) (unknown) (unknown) Date of Service: 07/24/22 (units unknown) (unknown) (unknown) (no date) (unknown) (unknown) Date of admission: (units unknown) (unknown) (unknown) (no date) (unknown) (unknown) Diet/Activity/Treatm e nts (units unknown) (unknown) (unknown) (no date) (unknown) (unknown) Diet: Carb-consistent/Diabe tic (units unknown) (unknown) (unknown) (no date) (unknown) (unknown) Discharge Assessment + Plan (units unknown) (unknown) (unknown) (no date) (unknown) (unknown) Discharge Data (units unknown) (unknown) (unknown) (no date) (unknown) (unknown) Discharge Date: 07/28/22 (units unknown) (unknown) (unknown) (no date) (unknown) (unknown) Discharge Diagnosis: (units unknown) (unknown) (unknown) (no date) (unknown) (unknown) Discharge Plan (units unknown) (unknown) (unknown) (no date) (unknown) (unknown) Discharge Providers (units unknown) (unknown) (unknown) (no date) (unknown) (unknown) Discharge Summary (units unknown) (unknown) (unknown) (no date) (unknown) (unknown) Discharge orders + Medications (units unknown) (unknown) (unknown) (no date) (unknown) (unknown) Discharge provider: (units unknown) (unknown) (unknown) (no date) (unknown) (unknown) Diuresed to euvolemia. Echo 07/25 with EF 25-30% withi severe global hypokinesis (units unknown) (unknown) (unknown) (no date) (unknown) (unknown) Echo: (units unknown) (unknown) (unknown) (no date) (unknown) (unknown) Eliquis 5 mg tablet (units unknown) (unknown) (unknown) (no date) (unknown) (unknown) Essential hypertension, present on admission and stable (units unknown) (unknown) (unknown) (no date) (unknown) (unknown) Exam Narrative: (units unknown) (unknown) (unknown) (no date) (unknown) (unknown) Exam (units unknown) (unknown) (unknown) (no date) (unknown) (unknown) Extremities: No edema (units unknown) (unknown) (unknown) (no date) (unknown) (unknown) Follow up/Referrals: (units unknown) (unknown) (unknown) (no date) (unknown) (unknown) Fraction of Inspired Oxygen 32 (units unknown) (unknown) (unknown) (no date) (unknown) (unknown) Functional status at discharge: independent ambulation (units unknown) (unknown) (unknown) (no date) (unknown) (unknown) General: Alert and cooperative MS speech and judgment are normal. (units unknown) (unknown) (unknown) (no date) (unknown) (unknown) Health on July 19, 2022. She presented complaining of a 1 day history of severe (units unknown) (unknown) (unknown) (no date) (unknown) (unknown) Health today after a 5 day hospitalization. Patient was admitted to [facility] (units unknown) (unknown) (unknown) (no date) (unknown) (unknown) Heart is irregular and tachycardic. (units unknown) (unknown) (unknown) (no date) (unknown) (unknown) Her obesity puts her at significant risk of morbidity and mortality.? Would (units unknown) (unknown) (unknown) (no date) (unknown) (unknown) Her primary care provider referred her to hospice in June of this year. She (units unknown) (unknown) (unknown) (no date) (unknown) (unknown) History of Present Illness (units unknown) (unknown) (unknown) (no date) (unknown) (unknown) Hospital Course (units unknown) (unknown) (unknown) (no date) (unknown) (unknown) Hospital Course: (units unknown) (unknown) (unknown) (no date) (unknown) (unknown) INHALE 2 PUFFS BY MOUTH 4 TIMES DAILY NEEDED (units unknown) (unknown) (unknown) (no date) (unknown) (unknown) Imaging (units unknown) (unknown) (unknown) (no date) (unknown) (unknown) Initial lactate was 2.2. ALT was elevated at 74. BNP was 2860. Troponin was (units unknown) (unknown) (unknown) (no date) (unknown) (unknown) Instructions: DI for Prescription Opioid Use (units unknown) (unknown) (unknown) (no date) (unknown) (unknown) [address] [place] [address] (units unknown) (unknown) (unknown) (no date) (unknown) (unknown) Rohini Ceron PA-C (units unknown) (unknown) (unknown) (no date) (unknown) (unknown) L via nasal cannula due to continuing low oxygen saturations. Labs revealed a (units unknown) (unknown) (unknown) (no date) (unknown) (unknown) LVEF of 55-30% with severe global hypokinesis. (units unknown) (unknown) (unknown) (no date) (unknown) (unknown) Labs (units unknown) (unknown) (unknown) (no date) (unknown) (unknown) Lungs: Lungs are mostly clear with normal rate and effort. (units unknown) (unknown) (unknown) (no date) (unknown) (unknown) Medical History (units unknown) (unknown) (unknown) (no date) (unknown) (unknown) Medication counselin g provided by Pharmacist: No (units unknown) (unknown) (unknown) (no date) (unknown) (unknown) Medrol 80 mg IV q.12.? Initially required bipap but now on 3L NC. Lasix and (units unknown) (unknown) (unknown) (no date) (unknown) (unknown) Metapneumovirus infection, present on admission and improved. (units unknown) (unknown) (unknown) (no date) (unknown) (unknown) My impression: (units unknown) (unknown) (unknown) (no date) (unknown) (unknown) Narrative (units unknown) (unknown) (unknown) (no date) (unknown) (unknown) Narrative: (units unknown) (unknown) (unknown) (no date) (unknown) (unknown) Neuro: Affect somewhat anxious, speech normal (units unknown) (unknown) (unknown) (no date) (unknown) (unknown) New (units unknown) (unknown) (unknown) (no date) (unknown) (unknown) No RVR at this time. ? Regular on exam.? Restarted home amio and eliquis. (units unknown) (unknown) (unknown) (no date) (unknown) (unknown) Not on statin. (units unknown) (unknown) (unknown) (no date) (unknown) (unknown) Not personally read. (units unknown) (unknown) (unknown) (no date) (unknown) (unknown) Objective (units unknown) (unknown) (unknown) (no date) (unknown) (unknown) On arrival to the emergency department, patient was noted to be hypoxic at 78% (units unknown) (unknown) (unknown) (no date) (unknown) (unknown) On oral medications only per report.? A1c at the outside facility was reported (units unknown) (unknown) (unknown) (no date) (unknown) (unknown) Overall status at discharge: patient is back to baseline (units unknown) (unknown) (unknown) (no date) (unknown) (unknown) Oxygen Delivery Method High Flow Nasal Cannula (units unknown) (unknown) (unknown) (no date) (unknown) (unknown) Oxygen Delivery Method High Flow Nasal (units unknown) (unknown) (unknown) (no date) (unknown) (unknown) Oxygen Delivery Method Nasal Cannula (units unknown) (unknown) (unknown) (no date) (unknown) (unknown) Oxygen Flow Rate 3 3 3 (units unknown) (unknown) (unknown) (no date) (unknown) (unknown) Oxygen Flow Rate 3 3 (units unknown) (unknown) (unknown) (no date) (unknown) (unknown) Oxygen Flow Rate 3 (units unknown) (unknown) (unknown) (no date) (unknown) (unknown) PFSH (units unknown) (unknown) (unknown) (no date) (unknown) (unknown) Patient Comments: (units unknown) (unknown) (unknown) (no date) (unknown) (unknown) Patient Disposition: Home Health Service (units unknown) (unknown) (unknown) (no date) (unknown) (unknown) Patient presents after leaving outside hospital Against Medical Advice after a 5 (units unknown) (unknown) (unknown) (no date) (unknown) (unknown) Patient: Ester Benavides MR#: [id number] (units unknown) (unknown) (unknown) (no date) (unknown) (unknown) Per outside records, she reports receiving a shock a couple of times a year.? I (units unknown) (unknown) (unknown) (no date) (unknown) (unknown) Physician Instructions: Evaluate and Treat (units unknown) (unknown) (unknown) (no date) (unknown) (unknown) Physician Instructions: Evaluate and treat (units unknown) (unknown) (unknown) (no date) (unknown) (unknown) Prescriptions: (units unknown) (unknown) (unknown) (no date) (unknown) (unknown) Primary Care Provider: Rohini Ceron (units unknown) (unknown) (unknown) (no date) (unknown) (unknown) Primary care physician: (units unknown) (unknown) (unknown) (no date) (unknown) (unknown) Provider (units unknown) (unknown) (unknown) (no date) (unknown) (unknown) Provider: Elio Vogel MD (units unknown) (unknown) (unknown) (no date) (unknown) (unknown) Pulse Oximetry 93 93 95 (units unknown) (unknown) (unknown) (no date) (unknown) (unknown) Pulse Oximetry 96 94 (units unknown) (unknown) (unknown) (no date) (unknown) (unknown) Pulse Rate 60 59 L (units unknown) (unknown) (unknown) (no date) (unknown) (unknown) Pulse Rate 61 (units unknown) (unknown) (unknown) (no date) (unknown) (unknown) Radiologist's impression: (units unknown) (unknown) (unknown) (no date) (unknown) (unknown) 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 She is (units unknown) (unknown) (unknown) (no date) (unknown) (unknown) Signed By:<Electronically signed by Elio Vogel MD> (units unknown) (unknown) (unknown) (no date) (unknown) (unknown) Skin/Wound/Dressing Care (units unknown) (unknown) (unknown) (no date) (unknown) (unknown) Smoking Status: Current every day smoker (units unknown) (unknown) (unknown) (no date) (unknown) (unknown) Social History (units unknown) (unknown) (unknown) (no date) (unknown) (unknown) Stand Alone Forms: Congestive Heart Failure, Patient Portal/API (units unknown) (unknown) (unknown) (no date) (unknown) (unknown) Status at Discharge (units unknown) (unknown) (unknown) (no date) (unknown) (unknown) Summary (units unknown) (unknown) (unknown) (no date) (unknown) (unknown) TAKE 1 TABLET BY MOUTH EVERY 6 HOURS NEEDED FOR PAIN (units unknown) (unknown) (unknown) (no date) (unknown) (unknown) TAKE 1 TABLET BY MOUTH ONCE DAILY (units unknown) (unknown) (unknown) (no date) (unknown) (unknown) TAKE 1 TABLET BY MOUTH TWICE DAILY (units unknown) (unknown) (unknown) (no date) (unknown) (unknown) TAKE 1/2 (ONE-HALF) TABLET BY MOUTH ONCE DAILY (units unknown) (unknown) (unknown) (no date) (unknown) (unknown) Temperature 97.0 F L (units unknown) (unknown) (unknown) (no date) (unknown) (unknown) Temperature 97.7 F (units unknown) (unknown) (unknown) (no date) (unknown) (unknown) The patient presente d to the hospital with acute respiratory failure. In November (units unknown) (unknown) (unknown) (no date) (unknown) (unknown) Time Spent with Patient (units unknown) (unknown) (unknown) (no date) (unknown) (unknown) Time spent: Greater than 30 minutes (units unknown) (unknown) (unknown) (no date) (unknown) (unknown) Transfer to: [facility] (units unknown) (unknown) (unknown) (no date) (unknown) (unknown) Troponin here is negative. On eliquis. (units unknown) (unknown) (unknown) (no date) (unknown) (unknown) URI symptoms for the duration of her hospitalization at the outside hospital. (units unknown) (unknown) (unknown) (no date) (unknown) (unknown) Visit Report/Discharge Packet (units unknown) (unknown) (unknown) (no date) (unknown) (unknown) Vital Signs (units unknown) (unknown) (unknown) (no date) (unknown) (unknown) [facility] and brought her to [facility] Emergency Department. (units unknown) (unknown) (unknown) (no date) (unknown) (unknown) Rohini Ceron PA-C [Primary Care Provider] (units unknown) (unknown) (unknown) (no date) (unknown) (unknown) [Embedded Image Not Available] (units unknown) (unknown) (unknown) (no date) (unknown) (unknown) admission and improved. (units unknown) (unknown) (unknown) (no date) (unknown) (unknown) admission and stable. (units unknown) (unknown) (unknown) (no date) (unknown) (unknown) admitted with acute on chronic hypoxic respiratory failure felt to be secondary (units unknown) (unknown) (unknown) (no date) (unknown) (unknown) afebrile.? She does have a leukocytosis but this is likely steroid induced (units unknown) (unknown) (unknown) (no date) (unknown) (unknown) aggressive interventions for her disease processes. With regard to her coronary (units unknown) (unknown) (unknown) (no date) (unknown) (unknown) albuterol sulfate [Ventolin HFA] 90 mcg/actuation HFA aerosol inhaler (units unknown) (unknown) (unknown) (no date) (unknown) (unknown) aldactone. (units unknown) (unknown) (unknown) (no date) (unknown) (unknown) am uncertain when sh e last had her device interrogated. (units unknown) (unknown) (unknown) (no date) (unknown) (unknown) amiodarone 200 mg tablet (units unknown) (unknown) (unknown) (no date) (unknown) (unknown) and creatinine are normal.? Will monitor. (units unknown) (unknown) (unknown) (no date) (unknown) (unknown) and improved (units unknown) (unknown) (unknown) (no date) (unknown) (unknown) artery disease with her 1st DC at age 29 previous cardiac arrest status post (units unknown) (unknown) (unknown) (no date) (unknown) (unknown) artery disease, she reportedly has had multiple MIs as noted with the 05 15 (units unknown) (unknown) (unknown) (no date) (unknown) (unknown) be the etiology of her COPD exacerbation. On July 22, she was able to be (units unknown) (unknown) (unknown) (no date) (unknown) (unknown) budesonide 90 mcg/actuation Aerosol Powdr Breath Activated (units unknown) (unknown) (unknown) (no date) (unknown) (unknown) class 3 obesity, who presented after leaving Against Medical Advice from [place] (units unknown) (unknown) (unknown) (no date) (unknown) (unknown) combination of both congestive heart failure and COPD exacerbation. She was (units unknown) (unknown) (unknown) (no date) (unknown) (unknown) daily due to elevate d sugars. (units unknown) (unknown) (unknown) (no date) (unknown) (unknown) day hospital stay.? While there, she received diuresis, fluid restriction, IV (units unknown) (unknown) (unknown) (no date) (unknown) (unknown) department to the ICU. RT notes since BiPAP has been placed, her respiratory (units unknown) (unknown) (unknown) (no date) (unknown) (unknown) department, she was hypoxic with room air saturations of 70%, tachypneic, and (units unknown) (unknown) (unknown) (no date) (unknown) (unknown) dependence, as I suspect she also has a component of obesity hypoventilation (units unknown) (unknown) (unknown) (no date) (unknown) (unknown) diamox stopped on 06/27 due to uptrending Cr. (units unknown) (unknown) (unknown) (no date) (unknown) (unknown) distress and overall fatigue, BiPAP was placed upon transfer from the emergency (units unknown) (unknown) (unknown) (no date) (unknown) (unknown) diuretics, fluid restriction of 2000 cc, IV Solu-Medrol, and her usual home (units unknown) (unknown) (unknown) (no date) (unknown) (unknown) done at the outside hospital.? No echocardiogram available in records to denote (units unknown) (unknown) (unknown) (no date) (unknown) (unknown) due to her shortness of breath. She was given steroids and found to have a (units unknown) (unknown) (unknown) (no date) (unknown) (unknown) exacerbated by metapneumovirus.? Received furosemide 40 mg IV b.i.d. and Solu (units unknown) (unknown) (unknown) (no date) (unknown) (unknown) feeling better with the BiPAP. She also reiterates her full code status. (units unknown) (unknown) (unknown) (no date) (unknown) (unknown) fever, night sweats and increased pain (units unknown) (unknown) (unknown) (no date) (unknown) (unknown) for COPD exacerbatio n given her reactive. She was able to wean off from oxygen (units unknown) (unknown) (unknown) (no date) (unknown) (unknown) furosemide 40 mg tablet (units unknown) (unknown) (unknown) (no date) (unknown) (unknown) glipizide [Glucotrol XL] 5 mg tablet extended release 24hr (units unknown) (unknown) (unknown) (no date) (unknown) (unknown) granddaughter bring in potato chips and extra fluids due to complaining of (units unknown) (unknown) (unknown) (no date) (unknown) (unknown) granddaughter reported over the month prior she had been increasing it to 4 L (units unknown) (unknown) (unknown) (no date) (unknown) (unknown) greatly benefit from weight reduction. (units unknown) (unknown) (unknown) (no date) (unknown) (unknown) had an informational visit with hospice but reported she continued to want (units unknown) (unknown) (unknown) (no date) (unknown) (unknown) heart failure.? Exam also indicates a component of COPD exacerbation likely (units unknown) (unknown) (unknown) (no date) (unknown) (unknown) her regular set up. (units unknown) (unknown) (unknown) (no date) (unknown) (unknown) household members: spouse (units unknown) (unknown) (unknown) (no date) (unknown) (unknown) hydrocodone-acetamin o phen 5-325 mg tablet (units unknown) (unknown) (unknown) (no date) (unknown) (unknown) hypoxic in the emergency department and required supplemental O2. She was (units unknown) (unknown) (unknown) (no date) (unknown) (unknown) improved. (units unknown) (unknown) (unknown) (no date) (unknown) (unknown) in room air. She cam e up to 89% on 4 L. Respiratory rate increased over her (units unknown) (unknown) (unknown) (no date) (unknown) (unknown) in the hospital. She felt close to her baseline on the day of discharge was (units unknown) (unknown) (unknown) (no date) (unknown) (unknown) leave Against Medica l Advice. She was noted to take her oxygen off and have (units unknown) (unknown) (unknown) (no date) (unknown) (unknown) less than 0.012. Again human metapneumovirus was positive. All other viral (units unknown) (unknown) (unknown) (no date) (unknown) (unknown) lisinopril 5 mg tablet (units unknown) (unknown) (unknown) (no date) (unknown) (unknown) lives independently: Yes (units unknown) (unknown) (unknown) (no date) (unknown) (unknown) medications. She did test positive for human metapneumovirus which was felt to (units unknown) (unknown) (unknown) (no date) (unknown) (unknown) metoprolol succinate 100 mg Tablet Extended Release 24 Hr (units unknown) (unknown) (unknown) (no date) (unknown) (unknown) montelukast 10 mg Tablet (units unknown) (unknown) (unknown) (no date) (unknown) (unknown) nebs with RT, continue guaifenesin (units unknown) (unknown) (unknown) (no date) (unknown) (unknown) noting severe respiratory distress.? Chest x-ray reveals evidence of congestive (units unknown) (unknown) (unknown) (no date) (unknown) (unknown) occurring at age 29. (units unknown) (unknown) (unknown) (no date) (unknown) (unknown) of LV and inferior, posterolateral wall. Restarted home metoprolol and (units unknown) (unknown) (unknown) (no date) (unknown) (unknown) of discharge. The patient had no evidence of an acute coronary syndrome while (units unknown) (unknown) (unknown) (no date) (unknown) (unknown) of severe shortness of breath, an ABG was performed. PH was 7.45, pCO2 69, PO2 (units unknown) (unknown) (unknown) (no date) (unknown) (unknown) oxycodone 5 mg Tablet (units unknown) (unknown) (unknown) (no date) (unknown) (unknown) oxygen at 3 L which is her baseline and the amount of oxygen she was on the day (units unknown) (unknown) (unknown) (no date) (unknown) (unknown) pacemaker/AICD placement, diabetes mellitus type 2 on oral antidiabetic agents, (units unknown) (unknown) (unknown) (no date) (unknown) (unknown) picked up by a famil y member. She was given a loaner oxygen tank to get home to (units unknown) (unknown) (unknown) (no date) (unknown) (unknown) potassium 4.1, chloride 90, bicarb 38, BUN 41, creatinine 0.8, glucose 248. (units unknown) (unknown) (unknown) (no date) (unknown) (unknown) prednisone 20 mg Tablet (units unknown) (unknown) (unknown) (no date) (unknown) (unknown) prednisone 40mg usman y to finish 5 days. (units unknown) (unknown) (unknown) (no date) (unknown) (unknown) prednisone 5 mg tablet (units unknown) (unknown) (unknown) (no date) (unknown) (unknown) presently complainin g of any pain.? Would avoid opioids for now given her BiPAP (units unknown) (unknown) (unknown) (no date) (unknown) (unknown) pulmonary vascular congestion. Due to worsening anemia and patient complaints (units unknown) (unknown) (unknown) (no date) (unknown) (unknown) q.12.? Will start budesonide with Duo nebs 4 times daily scheduled. Now on po (units unknown) (unknown) (unknown) (no date) (unknown) (unknown) rather than related to an infection as she was afebrile and not complaining of (units unknown) (unknown) (unknown) (no date) (unknown) (unknown) respiratory studies were negative. Chest x-ray revealed cardiomegaly with (units unknown) (unknown) (unknown) (no date) (unknown) (unknown) reveals an EF of 25-30% with severe global hypokinesis. She also was treated (units unknown) (unknown) (unknown) (no date) (unknown) (unknown) sats down to 70% debby m air. She ultimately had her granddaughter take her from (units unknown) (unknown) (unknown) (no date) (unknown) (unknown) she was found to hav e evidence of pulmonary edema and was diuresed. Echo (units unknown) (unknown) (unknown) (no date) (unknown) (unknown) shortness of breath. She reported using 2-3 L of oxygen continuously but her (units unknown) (unknown) (unknown) (no date) (unknown) (unknown) spironolactone 25 mg tablet (units unknown) (unknown) (unknown) (no date) (unknown) (unknown) status is improved. She is presently on FiO2 of 35%. She does answer questions (units unknown) (unknown) (unknown) (no date) (unknown) (unknown) steroids, and respiratory treatments.? Upon arriving to our emergency (units unknown) (unknown) (unknown) (no date) (unknown) (unknown) syndrome. (units unknown) (unknown) (unknown) (no date) (unknown) (unknown) the severity of her congestive heart failure.? Will obtain an echocardiogram.? (units unknown) (unknown) (unknown) (no date) (unknown) (unknown) thirst well on the fluid restricted diet. This morning, patient requested to (units unknown) (unknown) (unknown) (no date) (unknown) (unknown) time in the emergenc y department to a max of 38. She did require titration to 5 (units unknown) (unknown) (unknown) (no date) (unknown) (unknown) to acute on chronic systolic CHF and COPD exacerbation. She was placed on IV (units unknown) (unknown) (unknown) (no date) (unknown) (unknown) to be 8%.? Will plac e on fingersticks and sliding scale. Added lantus 30 units (units unknown) (unknown) (unknown) (no date) (unknown) (unknown) uncertain if she takes chronic opioid medication at baseline.? She is not (units unknown) (unknown) (unknown) (no date) (unknown) (unknown) uptrending Cr. We will resume upon discharge. (units unknown) (unknown) (unknown) (no date) (unknown) (unknown) weaned from 4 L of oxygen to 3 L of oxygen. However, patient was having her (units unknown) (unknown) (unknown) (no date) (unknown) (unknown) white blood cell count of 20.6 (it was 16 at [facility] today), hemoglobin (units unknown) (unknown) (unknown) (no date) (unknown) (unknown) with a brief shake her head yes or no. She does outer head yes that she is (units unknown) (unknown) (unknown) (no date) (unknown) (unknown) without difficulty, initially she did require BiPAP. The patient is on home (units unknown) (unknown) Result panel [id number] (unknown) (no date) (unknown) (unknown) (no value) (units unknown) (unknown) (unknown) (no date) (unknown) (unknown) 09/06/22 (units unknown) (unknown) (unknown) (no date) (unknown) (unknown) 1. Findings suggest central vascular and mild interstitial congestion. (units unknown) (unknown) (unknown) (no date) (unknown) (unknown) [address] [place] [address] (units unknown) (unknown) (unknown) (no date) (unknown) (unknown) 2. Interstitial thickening can also be seen in viral pneumonitis. (units unknown) (unknown) (unknown) (no date) (unknown) (unknown) 3. Stable cardiomegaly. (units unknown) (unknown) (unknown) (no date) (unknown) (unknown) [id number] (units unknown) (unknown) (unknown) (no date) (unknown) (unknown) Accession Number: [id number] (units unknown) (unknown) (unknown) (no date) (unknown) (unknown) Age/Sex: 57 / F Date of Service: (units unknown) (unknown) (unknown) (no date) (unknown) (unknown) SHAKEEL Pinto [id number] (units unknown) (unknown) (unknown) (no date) (unknown) (unknown) Approved by: Mattie Way M.D. on 09/06/2022 at 17:03 (units unknown) (unknown) (unknown) (no date) (unknown) (unknown) BNP. (units unknown) (unknown) (unknown) (no date) (unknown) (unknown) Bones and chest wall : No suspicious bony lesions. Overlying soft tissues (units unknown) (unknown) (unknown) (no date) (unknown) (unknown) COMPARISON: [facility], CR, XR CHEST 1V, 07/24/2022, 12:09. (units unknown) (unknown) (unknown) (no date) (unknown) (unknown) Correlate with (units unknown) (unknown) (unknown) (no date) (unknown) (unknown) : 1965 Acct:[id number] (units unknown) (unknown) (unknown) (no date) (unknown) (unknown) Dictated by: Mattie Way M.D. on 09/06/2022 at 17:01 (units unknown) (unknown) (unknown) (no date) (unknown) (unknown) FINDINGS: (units unknown) (unknown) (unknown) (no date) (unknown) (unknown) IMPRESSION: (units unknown) (unknown) (unknown) (no date) (unknown) (unknown) INDICATIONS: SOB (units unknown) (unknown) (unknown) (no date) (unknown) (unknown) [facility] (units unknown) (unknown) (unknown) (no date) (unknown) (unknown) Loc: ED (units unknown) (unknown) (unknown) (no date) (unknown) (unknown) Lungs and pleura: Lo w lung volumes with hazy interstitial thickening (units unknown) (unknown) (unknown) (no date) (unknown) (unknown) Mediastinum: Mild cardiomegaly and indistinct central vessels. Normal aortic (units unknown) (unknown) (unknown) (no date) (unknown) (unknown) Monitoring (units unknown) (unknown) (unknown) (no date) (unknown) (unknown) Ordering Provider: Aristeo Xiong D.O. (units unknown) (unknown) (unknown) (no date) (unknown) (unknown) PROCEDURE: XR CHEST 1V (units unknown) (unknown) (unknown) (no date) (unknown) (unknown) Patient: Ester Benavides MR#: [id number] (units unknown) (unknown) (unknown) (no date) (unknown) (unknown) Procedure: XR chest 1V (units unknown) (unknown) (unknown) (no date) (unknown) (unknown) Signed (units unknown) (unknown) (unknown) (no date) (unknown) (unknown) Surgical changes and devices: Dual lead left-sided transvenous pacemaker. (units unknown) (unknown) (unknown) (no date) (unknown) (unknown) TECHNIQUE: One view of the chest was acquired. (units unknown) (unknown) (unknown) (no date) (unknown) (unknown) XRay Report (units unknown) (unknown) (unknown) (no date) (unknown) (unknown) appear (units unknown) (unknown) (unknown) (no date) (unknown) (unknown) bilaterally. No (units unknown) (unknown) (unknown) (no date) (unknown) (unknown) contour. (units unknown) (unknown) (unknown) (no date) (unknown) (unknown) focal consolidations or effusions. (units unknown) (unknown) (unknown) (no date) (unknown) (unknown) unremarkable. (units unknown) (unknown) (unknown) (no date) (unknown) (unknown) wires. (units unknown) (unknown) Result panel [id number] (unknown) (no date) (unknown) (unknown) (no value) (units unknown) (unknown) (unknown) (no date) (unknown) (unknown) 07/25/22 (units unknown) (unknown) (unknown) (no date) (unknown) (unknown) 09/06/22 16:35 (units unknown) (unknown) (unknown) (no date) (unknown) (unknown) 09/06/22 16:36 (units unknown) (unknown) (unknown) (no date) (unknown) (unknown) 1 tab PO Q6H PRN (Reason: Pain (Scale Score 4-6)) (units unknown) (unknown) (unknown) (no date) (unknown) (unknown) 10 mg PO DAILY (units unknown) (unknown) (unknown) (no date) (unknown) (unknown) 100 mg PO BID (units unknown) (unknown) (unknown) (no date) (unknown) (unknown) 100 mg PO DAILY (units unknown) (unknown) (unknown) (no date) (unknown) (unknown) 12 point review of systems is negative except for those stated above (units unknown) (unknown) (unknown) (no date) (unknown) (unknown) [id number] (units unknown) (unknown) (unknown) (no date) (unknown) (unknown) 2 inh INHALATION BID (units unknown) (unknown) (unknown) (no date) (unknown) (unknown) 2 puff INHALATION QI D PRN (Reason: Shortness Of Breath) (units unknown) (unknown) (unknown) (no date) (unknown) (unknown) 25 mg PO DAILY (units unknown) (unknown) (unknown) (no date) (unknown) (unknown) 40 mg PO BID (units unknown) (unknown) (unknown) (no date) (unknown) (unknown) 40 mg PO DAILY Qty: 3 0RF (units unknown) (unknown) (unknown) (no date) (unknown) (unknown) 5 mg PO BID (units unknown) (unknown) (unknown) (no date) (unknown) (unknown) 5 mg PO DAILY Qty: 3 0RF (units unknown) (unknown) (unknown) (no date) (unknown) (unknown) 5 mg PO DAILY Qty: 3 0 3RF (units unknown) (unknown) (unknown) (no date) (unknown) (unknown) 5 mg PO DAILY (units unknown) (unknown) (unknown) (no date) (unknown) (unknown) 5 mg PO Q4HR PRN (Reason: pain) Qty: 20 0RF (units unknown) (unknown) (unknown) (no date) (unknown) (unknown) 57-year-old female daily smoker with history of COPD on home oxygen at 3 L (units unknown) (unknown) (unknown) (no date) (unknown) (unknown) Age/Sex: 57 / F (units unknown) (unknown) (unknown) (no date) (unknown) (unknown) Allergies (units unknown) (unknown) (unknown) (no date) (unknown) (unknown) Allergy/AdvReac Type Severity Reaction Status Date / Time (units unknown) (unknown) (unknown) (no date) (unknown) (unknown) Arterial Blood Gas Stat (units unknown) (unknown) (unknown) (no date) (unknown) (unknown) BACK: Nontender without deformity or crepitance. No flank tenderness. (units unknown) (unknown) (unknown) (no date) (unknown) (unknown) CARDIOVASCULAR: Irregular rhythm (units unknown) (unknown) (unknown) (no date) (unknown) (unknown) CARDIOVASCULAR: see HPI (units unknown) (unknown) (unknown) (no date) (unknown) (unknown) COPD (chronic obstructive pulmonary disease) (units unknown) (unknown) (unknown) (no date) (unknown) (unknown) Chest [XR chest 1V] Stat (units unknown) (unknown) (unknown) (no date) (unknown) (unknown) Complete Blood Count AUTO DIFF Stat (units unknown) (unknown) (unknown) (no date) (unknown) (unknown) Comprehensive Metabolic Panel Stat (units unknown) (unknown) (unknown) (no date) (unknown) (unknown) Course (units unknown) (unknown) (unknown) (no date) (unknown) (unknown) : 1965 Acct:[id number] (units unknown) (unknown) (unknown) (no date) (unknown) (unknown) Date of Service: 09/06/22 (units unknown) (unknown) (unknown) (no date) (unknown) (unknown) Departure (units unknown) (unknown) (unknown) (no date) (unknown) (unknown) Discharge Plan (units unknown) (unknown) (unknown) (no date) (unknown) (unknown) Discontinued Medications (units unknown) (unknown) (unknown) (no date) (unknown) (unknown) ED Orders (units unknown) (unknown) (unknown) (no date) (unknown) (unknown) EKG-12 Lead Stat (units unknown) (unknown) (unknown) (no date) (unknown) (unknown) ENT: Nose without bleeding, purulent drainage. Throat without erythema, (units unknown) (unknown) (unknown) (no date) (unknown) (unknown) ER Physician: Aristeo Xiong D.O. (units unknown) (unknown) (unknown) (no date) (unknown) (unknown) EXTREMITIES: No valdo a or joint tenderness. (units unknown) (unknown) (unknown) (no date) (unknown) (unknown) EYES: Pupils equal round and reactive. Extraocular motions intact. No scleral (units unknown) (unknown) (unknown) (no date) (unknown) (unknown) Eliquis 5 mg tablet (units unknown) (unknown) (unknown) (no date) (unknown) (unknown) Emergency Report (units unknown) (unknown) (unknown) (no date) (unknown) (unknown) Exam Narrative: (units unknown) (unknown) (unknown) (no date) (unknown) (unknown) Exam (units unknown) (unknown) (unknown) (no date) (unknown) (unknown) Fish Containing Products Allergy Severe Anaphylaxis Verified 07/27/22 13:29 (units unknown) (unknown) (unknown) (no date) (unknown) (unknown) GASTROINTESTINAL: Abdomen soft, non-tender, nondistended. (units unknown) (unknown) (unknown) (no date) (unknown) (unknown) GASTROINTESTINAL: Denies nausea, vomiting, abdominal pain, diarrhea, (units unknown) (unknown) (unknown) (no date) (unknown) (unknown) GENERAL: [57] year old patient appears stated age. Well-developed patient, in (units unknown) (unknown) (unknown) (no date) (unknown) (unknown) GENERAL: see HPI. (units unknown) (unknown) (unknown) (no date) (unknown) (unknown) : Denies dysuria, frequency, incontinence, hematuria, urinary retention. (units unknown) (unknown) (unknown) (no date) (unknown) (unknown) General (units unknown) (unknown) (unknown) (no date) (unknown) (unknown) HEAD: Atraumatic. Normocephalic. (units unknown) (unknown) (unknown) (no date) (unknown) (unknown) HEENT: Denies sinus pain, ear pain, sore throat, difficulty swallowing, (units unknown) (unknown) (unknown) (no date) (unknown) (unknown) HPI - General Adult (units unknown) (unknown) (unknown) (no date) (unknown) (unknown) HPI narrative: (units unknown) (unknown) (unknown) (no date) (unknown) (unknown) History of Present Illness (units unknown) (unknown) (unknown) (no date) (unknown) (unknown) Home Medications (units unknown) (unknown) (unknown) (no date) (unknown) (unknown) INHALE 2 PUFFS BY MOUTH 4 TIMES DAILY NEEDED (units unknown) (unknown) (unknown) (no date) (unknown) (unknown) [address] [address] (units unknown) (unknown) (unknown) (no date) (unknown) (unknown) Lactate (Lactic Acid ) Stat (units unknown) (unknown) (unknown) (no date) (unknown) (unknown) Lipase Stat (units unknown) (unknown) (unknown) (no date) (unknown) (unknown) MUSCULOSKELETAL: denies weakness, joint pain, or bony pain (units unknown) (unknown) (unknown) (no date) (unknown) (unknown) Magnesium Stat (units unknown) (unknown) (unknown) (no date) (unknown) (unknown) Medical History (units unknown) (unknown) (unknown) (no date) (unknown) (unknown) Medication Instructions Recorded Confirmed (units unknown) (unknown) (unknown) (no date) (unknown) (unknown) Medication Instructions Recorded (units unknown) (unknown) (unknown) (no date) (unknown) (unknown) Methylprednisolone (Methylprednisolone 125 Mg/2 Ml Vial) 125 mg IV NOW ONE (units unknown) (unknown) (unknown) (no date) (unknown) (unknown) NECK: Trachea midline. Non tender (units unknown) (unknown) (unknown) (no date) (unknown) (unknown) NEURO: AOx3. (units unknown) (unknown) (unknown) (no date) (unknown) (unknown) NEUROLOGIC: Denies weakness, headache, numbness, change in speech, confusion, (units unknown) (unknown) (unknown) (no date) (unknown) (unknown) NT-proBNP (BNP-Adult 18+) Stat (units unknown) (unknown) (unknown) (no date) (unknown) (unknown) Narrative (units unknown) (unknown) (unknown) (no date) (unknown) (unknown) Narrative: (units unknown) (unknown) (unknown) (no date) (unknown) (unknown) No Action (units unknown) (unknown) (unknown) (no date) (unknown) (unknown) Ordered: (units unknown) (unknown) (unknown) (no date) (unknown) (unknown) Orders (units unknown) (unknown) (unknown) (no date) (unknown) (unknown) PSYCHIATRIC: No concerning psychosocial issues. (units unknown) (unknown) (unknown) (no date) (unknown) (unknown) PTT Partial Thromboplastin Efrem Stat (units unknown) (unknown) (unknown) (no date) (unknown) (unknown) Patient Comments: (units unknown) (unknown) (unknown) (no date) (unknown) (unknown) Patient History (units unknown) (unknown) (unknown) (no date) (unknown) (unknown) Patient: Ester Benavides MR#: [id number] (units unknown) (unknown) (unknown) (no date) (unknown) (unknown) Prescriptions: (units unknown) (unknown) (unknown) (no date) (unknown) (unknown) Previous Rx's (units unknown) (unknown) (unknown) (no date) (unknown) (unknown) Procalcitonin Stat (units unknown) (unknown) (unknown) (no date) (unknown) (unknown) Prothrombin Time INR Stat (units unknown) (unknown) (unknown) (no date) (unknown) (unknown) RESPIRATORY: prolonged expiratory phase with decreased breath sounds (units unknown) (unknown) (unknown) (no date) (unknown) (unknown) RESPIRATORY: see HPI (units unknown) (unknown) (unknown) (no date) (unknown) (unknown) Referrals: (units unknown) (unknown) (unknown) (no date) (unknown) (unknown) Related Data (units unknown) (unknown) (unknown) (no date) (unknown) (unknown) Respiratory Panel (Film Array) Stat (units unknown) (unknown) (unknown) (no date) (unknown) (unknown) Review of Systems (units unknown) (unknown) (unknown) (no date) (unknown) (unknown) SKIN: Denies rash, skin lesions, or other (units unknown) (unknown) (unknown) (no date) (unknown) (unknown) SKIN: No rash or erythema of visible areas (units unknown) (unknown) (unknown) (no date) (unknown) (unknown) She is had no recent travel, change in medications, doses or diet. (units unknown) (unknown) (unknown) (no date) (unknown) (unknown) Signed By: (units unknown) (unknown) (unknown) (no date) (unknown) (unknown) Smoking Status: Current every day smoker (units unknown) (unknown) (unknown) (no date) (unknown) (unknown) Social History (units unknown) (unknown) (unknown) (no date) (unknown) (unknown) Stated complaint: SO B monday/ [place] (units unknown) (unknown) (unknown) (no date) (unknown) (unknown) Stop: 09/06/22 16:36 (units unknown) (unknown) (unknown) (no date) (unknown) (unknown) Substance Use Type: does not use (units unknown) (unknown) (unknown) (no date) (unknown) (unknown) TAKE 1 TABLET BY MOUTH EVERY 6 HOURS NEEDED FOR PAIN (units unknown) (unknown) (unknown) (no date) (unknown) (unknown) TAKE 1 TABLET BY MOUTH ONCE DAILY (units unknown) (unknown) (unknown) (no date) (unknown) (unknown) TAKE 1 TABLET BY MOUTH TWICE DAILY (units unknown) (unknown) (unknown) (no date) (unknown) (unknown) TAKE 1/2 (ONE-HALF) TABLET BY MOUTH ONCE DAILY (units unknown) (unknown) (unknown) (no date) (unknown) (unknown) Time Seen by Provider: 09/06/22 16:31 (units unknown) (unknown) (unknown) (no date) (unknown) (unknown) Troponin + CK Cardia c Panel Stat (units unknown) (unknown) (unknown) (no date) (unknown) (unknown) Rohini Ceron PA-C [Primary Care Provider] (units unknown) (unknown) (unknown) (no date) (unknown) (unknown) acetaminophen [From [facility]] Allergy Verified 07/06/21 13:33 (units unknown) (unknown) (unknown) (no date) (unknown) (unknown) activated powder inhaler (units unknown) (unknown) (unknown) (no date) (unknown) (unknown) aerosol inhaler (Ventolin HFA) Shortness Of Breath (units unknown) (unknown) (unknown) (no date) (unknown) (unknown) albuterol sulfate 90 mcg/actuation 2 puff inhalation QID PRN 07/25/22 07/25/22 (units unknown) (unknown) (unknown) (no date) (unknown) (unknown) albuterol sulfate [Ventolin HFA] 90 mcg/actuation HFA aerosol inhaler (units unknown) (unknown) (unknown) (no date) (unknown) (unknown) amiodarone 200 mg tablet 100 mg PO DAILY 07/25/22 07/25/22 (units unknown) (unknown) (unknown) (no date) (unknown) (unknown) amiodarone 200 mg tablet (units unknown) (unknown) (unknown) (no date) (unknown) (unknown) apixaban 5 mg tablet (Eliquis) 5 mg PO BID 07/25/22 07/25/22 (units unknown) (unknown) (unknown) (no date) (unknown) (unknown) bee pollen Allergy Severe Anaphylaxis Verified 07/28/22 10:43 (units unknown) (unknown) (unknown) (no date) (unknown) (unknown) budesonide 90 mcg/actuation Aerosol Powdr Breath Activated (units unknown) (unknown) (unknown) (no date) (unknown) (unknown) budesonide 90 mcg/actuation breath 2 inh inhalation BID 07/25/22 07/25/22 (units unknown) (unknown) (unknown) (no date) (unknown) (unknown) codeine Allergy Verified 07/06/21 13:34 (units unknown) (unknown) (unknown) (no date) (unknown) (unknown) constipation, melena. (units unknown) (unknown) (unknown) (no date) (unknown) (unknown) denies any runny nose, sore throat and has had a harsh wet sounding cough she (units unknown) (unknown) (unknown) (no date) (unknown) (unknown) dizziness. (units unknown) (unknown) (unknown) (no date) (unknown) (unknown) doxycycline AdvReac Vomiting Verified 07/28/22 10:43 (units unknown) (unknown) (unknown) (no date) (unknown) (unknown) erythromycin base Allergy Verified 07/06/21 13:34 (units unknown) (unknown) (unknown) (no date) (unknown) (unknown) furosemide 40 mg tablet 40 mg PO BID 07/25/22 07/25/22 (units unknown) (unknown) (unknown) (no date) (unknown) (unknown) furosemide 40 mg tablet (units unknown) (unknown) (unknown) (no date) (unknown) (unknown) glipizide 5 mg tablet, extended 5 mg PO DAILY #30 tabs 07/28/22 (units unknown) (unknown) (unknown) (no date) (unknown) (unknown) glipizide [Glucotrol XL] 5 mg tablet extended release 24hr (units unknown) (unknown) (unknown) (no date) (unknown) (unknown) her oxygen more ofte n than normal. She denies nausea, vomiting or diarrhea. (units unknown) (unknown) (unknown) (no date) (unknown) (unknown) household members: spouse (units unknown) (unknown) (unknown) (no date) (unknown) (unknown) hydrocodone 5 mg-acetaminophen 325 1 tab PO Q6H PRN Pain (Scale Score 07/25/22 (units unknown) (unknown) (unknown) (no date) (unknown) (unknown) hydrocodone-acetamin o phen 5-325 mg tablet (units unknown) (unknown) (unknown) (no date) (unknown) (unknown) icterus. No injectio n or drainage. (units unknown) (unknown) (unknown) (no date) (unknown) (unknown) iodine Allergy Rash Verified 07/27/22 13:32 (units unknown) (unknown) (unknown) (no date) (unknown) (unknown) latex Allergy Rash Verified 07/27/22 13:29 (units unknown) (unknown) (unknown) (no date) (unknown) (unknown) lisinopril 5 mg tablet 5 mg PO DAILY 07/25/22 07/25/22 (units unknown) (unknown) (unknown) (no date) (unknown) (unknown) lisinopril 5 mg tablet (units unknown) (unknown) (unknown) (no date) (unknown) (unknown) lives independently: Yes (units unknown) (unknown) (unknown) (no date) (unknown) (unknown) metoprolol succinate 100 mg 100 mg PO BID 07/25/22 07/25/22 (units unknown) (unknown) (unknown) (no date) (unknown) (unknown) metoprolol succinate 100 mg Tablet Extended Release 24 Hr (units unknown) (unknown) (unknown) (no date) (unknown) (unknown) mg tablet 4-6) (units unknown) (unknown) (unknown) (no date) (unknown) (unknown) mild distress. (units unknown) (unknown) (unknown) (no date) (unknown) (unknown) montelukast 10 mg Tablet (units unknown) (unknown) (unknown) (no date) (unknown) (unknown) montelukast 10 mg tablet 10 mg PO DAILY 07/25/22 07/25/22 (units unknown) (unknown) (unknown) (no date) (unknown) (unknown) oxycodone 5 mg Tablet (units unknown) (unknown) (unknown) (no date) (unknown) (unknown) oxycodone 5 mg table t 5 mg PO Q4HR PRN pain #20 tabs 07/28/22 (units unknown) (unknown) (unknown) (no date) (unknown) (unknown) pamabrom [From [facility] ] Allergy Verified 07/06/21 13:33 (units unknown) (unknown) (unknown) (no date) (unknown) (unknown) prednisone 20 mg Tablet (units unknown) (unknown) (unknown) (no date) (unknown) (unknown) prednisone 20 mg tablet 40 mg PO DAILY #3 tabs 07/28/22 (units unknown) (unknown) (unknown) (no date) (unknown) (unknown) prednisone 5 mg tablet 5 mg PO DAILY #3 tabs 07/28/22 (units unknown) (unknown) (unknown) (no date) (unknown) (unknown) prednisone 5 mg tablet (units unknown) (unknown) (unknown) (no date) (unknown) (unknown) presents by EMS with worsening shortness of breath over the past 3-4 days. She (units unknown) (unknown) (unknown) (no date) (unknown) (unknown) release 24 hr (Glucotrol XL) (units unknown) (unknown) (unknown) (no date) (unknown) (unknown) seizures, incoordination. (units unknown) (unknown) (unknown) (no date) (unknown) (unknown) shellfish derived Allergy Severe Anaphylaxis Verified 07/28/22 10:43 (units unknown) (unknown) (unknown) (no date) (unknown) (unknown) short of breath with exertion and lying flat and admits that she is been using (units unknown) (unknown) (unknown) (no date) (unknown) (unknown) spironolactone 25 mg tablet 25 mg PO DAILY 07/25/22 07/25/22 (units unknown) (unknown) (unknown) (no date) (unknown) (unknown) spironolactone 25 mg tablet (units unknown) (unknown) (unknown) (no date) (unknown) (unknown) states for many year s and it is no different than normal. She becomes more (units unknown) (unknown) (unknown) (no date) (unknown) (unknown) tablet,extended release 24 hr (units unknown) (unknown) (unknown) (no date) (unknown) (unknown) throughout, perhaps faint crackles in bilateral bases (units unknown) (unknown) (unknown) (no date) (unknown) (unknown) tonsillar hypertroph y or exudate. Airway patent. (units unknown) (unknown) Result panel 672 (unknown) (no date) (unknown) (unknown) 1.0 % (unknown) (unknown) (no date) (unknown) (unknown) 1.1 % (unknown) (unknown) (no date) (unknown) (unknown) 10.2 x10 3/ul (unknown) (unknown) (no date) (unknown) (unknown) 100 /ul (unknown) (unknown) (no date) (unknown) (unknown) 100 /ul (unknown) (unknown) (no date) (unknown) (unknown) 1000 /ul (unknown) (unknown) (no date) (unknown) (unknown) 14.5 g/dl (unknown) (unknown) (no date) (unknown) (unknown) 14.8 % (unknown) (unknown) (no date) (unknown) (unknown) 232 x10 3/ul (unknown) (unknown) (no date) (unknown) (unknown) 26.3 % (unknown) (unknown) (no date) (unknown) (unknown) 2700 /ul (unknown) (unknown) (no date) (unknown) (unknown) 32.5 pg (unknown) (unknown) (no date) (unknown) (unknown) 34.6 % (unknown) (unknown) (no date) (unknown) (unknown) 4.48 x10 6/ul (unknown) (unknown) (no date) (unknown) (unknown) 42.1 % (unknown) (unknown) (no date) (unknown) (unknown) 62.0 % (unknown) (unknown) (no date) (unknown) (unknown) 6300 /ul (unknown) (unknown) (no date) (unknown) (unknown) 9.6 % (unknown) (unknown) (no date) (unknown) (unknown) 93.9 fl (unknown) Result panel 673 (unknown) (no date) (unknown) (unknown) 31 mmol/l (unknown) (unknown) (no date) (unknown) (unknown) 32 (units unknown) (unknown) (unknown) (no date) (unknown) (unknown) 32 mmol/l (unknown) (unknown) (no date) (unknown) (unknown) 46.9 mmhg (unknown) (unknown) (no date) (unknown) (unknown) 6.0 mmol/l (unknown) (unknown) (no date) (unknown) (unknown) 7.42 (units unknown) (unknown) (unknown) (no date) (unknown) (unknown) 7.42 (units unknown) (unknown) (unknown) (no date) (unknown) (unknown) 70 mmhg (unknown) (unknown) (no date) (unknown) (unknown) 94 % (unknown) Result panel 674 (unknown) (no date) (unknown) (unknown) < 20 u/l (unknown) (unknown) (no date) (unknown) (unknown) 0.5 mg/dl (unknown) (unknown) (no date) (unknown) (unknown) 1.0 mmol/l (unknown) (unknown) (no date) (unknown) (unknown) 1.29 mg/dl (unknown) (unknown) (no date) (unknown) (unknown) 1.3 (units unknown) (unknown) (unknown) (no date) (unknown) (unknown) 1.9 mg/dl (unknown) (unknown) (no date) (unknown) (unknown) 100 mmol/l (unknown) (unknown) (no date) (unknown) (unknown) 140 mmol/l (unknown) (unknown) (no date) (unknown) (unknown) 19 iu/l (unknown) (unknown) (no date) (unknown) (unknown) 2.9 g/dl (unknown) (unknown) (no date) (unknown) (unknown) 20 iu/l (unknown) (unknown) (no date) (unknown) (unknown) 20.2 (units unknown) (unknown) (unknown) (no date) (unknown) (unknown) 26 mg/dl (unknown) (unknown) (no date) (unknown) (unknown) 3.4 mmol/l (unknown) (unknown) (no date) (unknown) (unknown) 3.8 g/dl (unknown) (unknown) (no date) (unknown) (unknown) 35 mmol/l (unknown) (unknown) (no date) (unknown) (unknown) 48 ml/min (unknown) (unknown) (no date) (unknown) (unknown) 48 ml/min (unknown) (unknown) (no date) (unknown) (unknown) 6.7 g/dl (unknown) (unknown) (no date) (unknown) (unknown) 80 u/l (unknown) (unknown) (no date) (unknown) (unknown) 81 u/l (unknown) (unknown) (no date) (unknown) (unknown) 89 mg/dl (unknown) (unknown) (no date) (unknown) (unknown) 89 mg/dl (unknown) (unknown) (no date) (unknown) (unknown) 9.0 mg/dl (unknown) (unknown) (no date) (unknown) (unknown) Test not performed % (unknown) (unknown) (no date) (unknown) (unknown) Test not performed % (unknown) (unknown) (no date) (unknown) (unknown) Test not performed ng/ml (unknown) (unknown) (no date) (unknown) (unknown) Test not performed ng/ml (unknown) Result panel 675 (unknown) (no date) (unknown) (unknown) < 20 u/l (unknown) (unknown) (no date) (unknown) (unknown) 0.013 ng/ml (unknown) (unknown) (no date) (unknown) (unknown) 0.013 ng/ml (unknown) (unknown) (no date) (unknown) (unknown) 0.5 mg/dl (unknown) (unknown) (no date) (unknown) (unknown) 1.29 mg/dl (unknown) (unknown) (no date) (unknown) (unknown) 1.3 (units unknown) (unknown) (unknown) (no date) (unknown) (unknown) 1.9 mg/dl (unknown) (unknown) (no date) (unknown) (unknown) 100 mmol/l (unknown) (unknown) (no date) (unknown) (unknown) 1250 pg/ml (unknown) (unknown) (no date) (unknown) (unknown) 1250 pg/ml (unknown) (unknown) (no date) (unknown) (unknown) 140 mmol/l (unknown) (unknown) (no date) (unknown) (unknown) 19 iu/l (unknown) (unknown) (no date) (unknown) (unknown) 2.9 g/dl (unknown) (unknown) (no date) (unknown) (unknown) 20 iu/l (unknown) (unknown) (no date) (unknown) (unknown) 20.2 (units unknown) (unknown) (unknown) (no date) (unknown) (unknown) 26 mg/dl (unknown) (unknown) (no date) (unknown) (unknown) 3.4 mmol/l (unknown) (unknown) (no date) (unknown) (unknown) 3.8 g/dl (unknown) (unknown) (no date) (unknown) (unknown) 35 mmol/l (unknown) (unknown) (no date) (unknown) (unknown) 48 ml/min (unknown) (unknown) (no date) (unknown) (unknown) 48 ml/min (unknown) (unknown) (no date) (unknown) (unknown) 6.7 g/dl (unknown) (unknown) (no date) (unknown) (unknown) 80 u/l (unknown) (unknown) (no date) (unknown) (unknown) 81 u/l (unknown) (unknown) (no date) (unknown) (unknown) 89 mg/dl (unknown) (unknown) (no date) (unknown) (unknown) 89 mg/dl (unknown) (unknown) (no date) (unknown) (unknown) 9.0 mg/dl (unknown) (unknown) (no date) (unknown) (unknown) Test not performed % (unknown) (unknown) (no date) (unknown) (unknown) Test not performed % (unknown) (unknown) (no date) (unknown) (unknown) Test not performed ng/ml (unknown) (unknown) (no date) (unknown) (unknown) Test not performed ng/ml (unknown) Result panel 676 (unknown) (no date) (unknown) (unknown) < 20 u/l (unknown) (unknown) (no date) (unknown) (unknown) 0.013 ng/ml (unknown) (unknown) (no date) (unknown) (unknown) 0.013 ng/ml (unknown) (unknown) (no date) (unknown) (unknown) 0.06 ng/ml (unknown) (unknown) (no date) (unknown) (unknown) 0.06 ng/ml (unknown) (unknown) (no date) (unknown) (unknown) 0.5 mg/dl (unknown) (unknown) (no date) (unknown) (unknown) 1.29 mg/dl (unknown) (unknown) (no date) (unknown) (unknown) 1.3 (units unknown) (unknown) (unknown) (no date) (unknown) (unknown) 1.9 mg/dl (unknown) (unknown) (no date) (unknown) (unknown) 100 mmol/l (unknown) (unknown) (no date) (unknown) (unknown) 1250 pg/ml (unknown) (unknown) (no date) (unknown) (unknown) 1250 pg/ml (unknown) (unknown) (no date) (unknown) (unknown) 140 mmol/l (unknown) (unknown) (no date) (unknown) (unknown) 19 iu/l (unknown) (unknown) (no date) (unknown) (unknown) 2.9 g/dl (unknown) (unknown) (no date) (unknown) (unknown) 20 iu/l (unknown) (unknown) (no date) (unknown) (unknown) 20.2 (units unknown) (unknown) (unknown) (no date) (unknown) (unknown) 26 mg/dl (unknown) (unknown) (no date) (unknown) (unknown) 3.4 mmol/l (unknown) (unknown) (no date) (unknown) (unknown) 3.8 g/dl (unknown) (unknown) (no date) (unknown) (unknown) 35 mmol/l (unknown) (unknown) (no date) (unknown) (unknown) 48 ml/min (unknown) (unknown) (no date) (unknown) (unknown) 48 ml/min (unknown) (unknown) (no date) (unknown) (unknown) 6.7 g/dl (unknown) (unknown) (no date) (unknown) (unknown) 80 u/l (unknown) (unknown) (no date) (unknown) (unknown) 81 u/l (unknown) (unknown) (no date) (unknown) (unknown) 89 mg/dl (unknown) (unknown) (no date) (unknown) (unknown) 89 mg/dl (unknown) (unknown) (no date) (unknown) (unknown) 9.0 mg/dl (unknown) (unknown) (no date) (unknown) (unknown) Test not performed % (unknown) (unknown) (no date) (unknown) (unknown) Test not performed % (unknown) (unknown) (no date) (unknown) (unknown) Test not performed ng/ml (unknown) (unknown) (no date) (unknown) (unknown) Test not performed ng/ml (unknown) Result panel 677 (unknown) (no date) (unknown) (unknown) 1.3 (units unknown) (unknown) (unknown) (no date) (unknown) (unknown) 15.5 seconds (unknown) (unknown) (no date) (unknown) (unknown) 23 seconds (unknown) (unknown) (no date) (unknown) (unknown) 23 seconds (unknown) Result panel 678 (unknown) (no date) (unknown) (unknown) (no value) (units unknown) (unknown) (unknown) (no date) (unknown) (unknown) 07/25/22 (units unknown) (unknown) (unknown) (no date) (unknown) (unknown) 09/06/22 09/06/22 09/06/22 Range/Units (units unknown) (unknown) (unknown) (no date) (unknown) (unknown) 09/06/22 09/06/22 Range/Units (units unknown) (unknown) (unknown) (no date) (unknown) (unknown) 09/06/22 16:35 (units unknown) (unknown) (unknown) (no date) (unknown) (unknown) 09/06/22 16:36 (units unknown) (unknown) (unknown) (no date) (unknown) (unknown) 09/06/22 17:10 (units unknown) (unknown) (unknown) (no date) (unknown) (unknown) 09/06/22 17:16 (units unknown) (unknown) (unknown) (no date) (unknown) (unknown) 09/06/22 17:30 (units unknown) (unknown) (unknown) (no date) (unknown) (unknown) 09/06/22 (units unknown) (unknown) (unknown) (no date) (unknown) (unknown) 1 tab PO Q6H PRN (Reason: Pain (Scale Score 4-6)) (units unknown) (unknown) (unknown) (no date) (unknown) (unknown) 10 mg PO DAILY (units unknown) (unknown) (unknown) (no date) (unknown) (unknown) 100 mg PO BID (units unknown) (unknown) (unknown) (no date) (unknown) (unknown) 100 mg PO DAILY (units unknown) (unknown) (unknown) (no date) (unknown) (unknown) 12 point review of systems is negative except for those stated above (units unknown) (unknown) (unknown) (no date) (unknown) (unknown) 16:39 09/06/22 (units unknown) (unknown) (unknown) (no date) (unknown) (unknown) 16:42 09/06/22 (units unknown) (unknown) (unknown) (no date) (unknown) (unknown) 16:42 (units unknown) (unknown) (unknown) (no date) (unknown) (unknown) 16:45 09/06/22 (units unknown) (unknown) (unknown) (no date) (unknown) (unknown) 16:45 (units unknown) (unknown) (unknown) (no date) (unknown) (unknown) 16:50 09/06/22 (units unknown) (unknown) (unknown) (no date) (unknown) (unknown) 17:00 09/06/22 (units unknown) (unknown) (unknown) (no date) (unknown) (unknown) 17:01 09/06/22 (units unknown) (unknown) (unknown) (no date) (unknown) (unknown) 17:01 (units unknown) (unknown) (unknown) (no date) (unknown) (unknown) 17:06 09/06/22 (units unknown) (unknown) (unknown) (no date) (unknown) (unknown) 17:10 09/06/22 (units unknown) (unknown) (unknown) (no date) (unknown) (unknown) 17:10 17:16 17:16 (units unknown) (unknown) (unknown) (no date) (unknown) (unknown) 17:10 (units unknown) (unknown) (unknown) (no date) (unknown) (unknown) 17:15 09/06/22 (units unknown) (unknown) (unknown) (no date) (unknown) (unknown) 17:15 (units unknown) (unknown) (unknown) (no date) (unknown) (unknown) 17:16 17:16 (units unknown) (unknown) (unknown) (no date) (unknown) (unknown) 17:21 09/06/22 (units unknown) (unknown) (unknown) (no date) (unknown) (unknown) 17:26 09/06/22 (units unknown) (unknown) (unknown) (no date) (unknown) (unknown) 17:26 (units unknown) (unknown) (unknown) (no date) (unknown) (unknown) 17:30 09/06/22 (units unknown) (unknown) (unknown) (no date) (unknown) (unknown) 17:30 (units unknown) (unknown) (unknown) (no date) (unknown) (unknown) 17:36 09/06/22 (units unknown) (unknown) (unknown) (no date) (unknown) (unknown) 17:38 09/06/22 (units unknown) (unknown) (unknown) (no date) (unknown) (unknown) 17:38 (units unknown) (unknown) (unknown) (no date) (unknown) (unknown) 17:40 09/06/22 (units unknown) (unknown) (unknown) (no date) (unknown) (unknown) 17:40 (units unknown) (unknown) (unknown) (no date) (unknown) (unknown) 17:42 09/06/22 (units unknown) (unknown) (unknown) (no date) (unknown) (unknown) 17:45 (units unknown) (unknown) (unknown) (no date) (unknown) (unknown) 17:46 09/06/22 (units unknown) (unknown) (unknown) (no date) (unknown) (unknown) 17:48 (units unknown) (unknown) (unknown) (no date) (unknown) (unknown) [id number] (units unknown) (unknown) (unknown) (no date) (unknown) (unknown) 2 inh INHALATION BID (units unknown) (unknown) (unknown) (no date) (unknown) (unknown) 2 puff INHALATION QI D PRN (Reason: Shortness Of Breath) (units unknown) (unknown) (unknown) (no date) (unknown) (unknown) 25 mg PO DAILY (units unknown) (unknown) (unknown) (no date) (unknown) (unknown) 40 mg PO BID (units unknown) (unknown) (unknown) (no date) (unknown) (unknown) 40 mg PO DAILY Qty: 3 0RF (units unknown) (unknown) (unknown) (no date) (unknown) (unknown) 5 mg PO BID (units unknown) (unknown) (unknown) (no date) (unknown) (unknown) 5 mg PO DAILY Qty: 3 0RF (units unknown) (unknown) (unknown) (no date) (unknown) (unknown) 5 mg PO DAILY Qty: 3 0 3RF (units unknown) (unknown) (unknown) (no date) (unknown) (unknown) 5 mg PO DAILY (units unknown) (unknown) (unknown) (no date) (unknown) (unknown) 5 mg PO Q4HR PRN (Reason: pain) Qty: 20 0RF (units unknown) (unknown) (unknown) (no date) (unknown) (unknown) 57-year-old female daily smoker with history of COPD on home oxygen at 3 L (units unknown) (unknown) (unknown) (no date) (unknown) (unknown) ABG Base Excess (-2-3) mmol/L (units unknown) (unknown) (unknown) (no date) (unknown) (unknown) ABG Base Excess 6.0 H (-2-3) mmol/L (units unknown) (unknown) (unknown) (no date) (unknown) (unknown) ABG HCO3 (23-27) mmol/L (units unknown) (unknown) (unknown) (no date) (unknown) (unknown) ABG HCO3 31 H (23-27 ) mmol/L (units unknown) (unknown) (unknown) (no date) (unknown) (unknown) ABG O2 Saturation (95-100) % (units unknown) (unknown) (unknown) (no date) (unknown) (unknown) ABG O2 Saturation 94 L (95-100) % (units unknown) (unknown) (unknown) (no date) (unknown) (unknown) ABG Total CO2 (23-27 ) mmol/L (units unknown) (unknown) (unknown) (no date) (unknown) (unknown) ABG Total CO2 32 H (23-27) mmol/L (units unknown) (unknown) (unknown) (no date) (unknown) (unknown) ABG pCO2 (35-45) mmHg (units unknown) (unknown) (unknown) (no date) (unknown) (unknown) ABG pCO2 46.9 H (35-45) mmHg (units unknown) (unknown) (unknown) (no date) (unknown) (unknown) ABG pH (7.35-7.45) (units unknown) (unknown) (unknown) (no date) (unknown) (unknown) ABG pH 7.42 (7.35-7.45) (units unknown) (unknown) (unknown) (no date) (unknown) (unknown) ABG pO2 (80-100) mmHg (units unknown) (unknown) (unknown) (no date) (unknown) (unknown) ABG pO2 70 L (80-100 ) mmHg (units unknown) (unknown) (unknown) (no date) (unknown) (unknown) ALT (<35) IU/L (units unknown) (unknown) (unknown) (no date) (unknown) (unknown) ALT 19 (<35) IU/L (units unknown) (unknown) (unknown) (no date) (unknown) (unknown) APTT (26-36) SECONDS (units unknown) (unknown) (unknown) (no date) (unknown) (unknown) APTT 23 L (26-36) SECONDS (units unknown) (unknown) (unknown) (no date) (unknown) (unknown) AST (14-36) IU/L (units unknown) (unknown) (unknown) (no date) (unknown) (unknown) AST 20 (14-36) IU/L (units unknown) (unknown) (unknown) (no date) (unknown) (unknown) Age/Sex: 57 / F (units unknown) (unknown) (unknown) (no date) (unknown) (unknown) Albumin (3.5-5.0) g/dL (units unknown) (unknown) (unknown) (no date) (unknown) (unknown) Albumin 3.8 (3.5-5.0 ) g/dL (units unknown) (unknown) (unknown) (no date) (unknown) (unknown) Albumin/Globulin Ratio (1.0-2.8) (units unknown) (unknown) (unknown) (no date) (unknown) (unknown) Albumin/Globulin Ratio 1.3 (1.0-2.8) (units unknown) (unknown) (unknown) (no date) (unknown) (unknown) Alkaline Phosphatase (38-126) U/L (units unknown) (unknown) (unknown) (no date) (unknown) (unknown) Alkaline Phosphatase 81 (38-126) U/L (units unknown) (unknown) (unknown) (no date) (unknown) (unknown) Allergies (units unknown) (unknown) (unknown) (no date) (unknown) (unknown) Allergy/AdvReac Type Severity Reaction Status Date / Time (units unknown) (unknown) (unknown) (no date) (unknown) (unknown) Arterial Blood Gas Stat (units unknown) (unknown) (unknown) (no date) (unknown) (unknown) BACK: Nontender without deformity or crepitance. No flank tenderness. (units unknown) (unknown) (unknown) (no date) (unknown) (unknown) BUN (7-17) mg/dL (units unknown) (unknown) (unknown) (no date) (unknown) (unknown) BUN 26 H (7-17) mg/dL (units unknown) (unknown) (unknown) (no date) (unknown) (unknown) BUN/Creatinine Ratio (6-22) (units unknown) (unknown) (unknown) (no date) (unknown) (unknown) BUN/Creatinine Ratio 20.2 (6-22) (units unknown) (unknown) (unknown) (no date) (unknown) (unknown) Baso # (Auto) (0-100 ) /uL (units unknown) (unknown) (unknown) (no date) (unknown) (unknown) Baso # (Auto) 100 (0-100) /uL (units unknown) (unknown) (unknown) (no date) (unknown) (unknown) Baso % (Auto) (0-2) % (units unknown) (unknown) (unknown) (no date) (unknown) (unknown) Baso % (Auto) 1.0 (0-2) % (units unknown) (unknown) (unknown) (no date) (unknown) (unknown) Blood Pressure 100/4 9 L 104/52 L (units unknown) (unknown) (unknown) (no date) (unknown) (unknown) Blood Pressure 102/7 1 150/71 H (units unknown) (unknown) (unknown) (no date) (unknown) (unknown) Blood Pressure 104/4 8 L (units unknown) (unknown) (unknown) (no date) (unknown) (unknown) Blood Pressure 110/5 3 L 96/54 L (units unknown) (unknown) (unknown) (no date) (unknown) (unknown) Blood Pressure 112/5 4 L (units unknown) (unknown) (unknown) (no date) (unknown) (unknown) Blood Pressure 115/5 8 L (units unknown) (unknown) (unknown) (no date) (unknown) (unknown) Blood Pressure 72/43 L (units unknown) (unknown) (unknown) (no date) (unknown) (unknown) Blood Pressure 76/42 L 93/54 L (units unknown) (unknown) (unknown) (no date) (unknown) (unknown) Blood Pressure 83/51 L 71/46 L (units unknown) (unknown) (unknown) (no date) (unknown) (unknown) Blood Pressure 93/54 L (units unknown) (unknown) (unknown) (no date) (unknown) (unknown) Blood Pressure (units unknown) (unknown) (unknown) (no date) (unknown) (unknown) CARDIOVASCULAR: Irregular rhythm (units unknown) (unknown) (unknown) (no date) (unknown) (unknown) CARDIOVASCULAR: see HPI (units unknown) (unknown) (unknown) (no date) (unknown) (unknown) CK-MB (CK-2) Rel Index TNP (units unknown) (unknown) (unknown) (no date) (unknown) (unknown) CK-MB (CK-2) Rel Index (units unknown) (unknown) (unknown) (no date) (unknown) (unknown) CK-MB (CK-2) TNP (units unknown) (unknown) (unknown) (no date) (unknown) (unknown) CK-MB (CK-2) (units unknown) (unknown) (unknown) (no date) (unknown) (unknown) COPD (chronic obstructive pulmonary disease) (units unknown) (unknown) (unknown) (no date) (unknown) (unknown) Calcium (8.4-10.2) mg/dL (units unknown) (unknown) (unknown) (no date) (unknown) (unknown) Calcium 9.0 (8.4-10.2) mg/dL (units unknown) (unknown) (unknown) (no date) (unknown) (unknown) Carbon Dioxide (22-32) mmol/L (units unknown) (unknown) (unknown) (no date) (unknown) (unknown) Carbon Dioxide 35 H (22-32) mmol/L (units unknown) (unknown) (unknown) (no date) (unknown) (unknown) Chest [XR chest 1V] Stat (units unknown) (unknown) (unknown) (no date) (unknown) (unknown) Chief complaint: Shortness of Breath/Dyspnea (units unknown) (unknown) (unknown) (no date) (unknown) (unknown) Chloride (98-107) mmol/L (units unknown) (unknown) (unknown) (no date) (unknown) (unknown) Chloride 100 (98-107 ) mmol/L (units unknown) (unknown) (unknown) (no date) (unknown) (unknown) Complete Blood Count AUTO DIFF Stat (units unknown) (unknown) (unknown) (no date) (unknown) (unknown) Comprehensive Metabolic Panel Stat (units unknown) (unknown) (unknown) (no date) (unknown) (unknown) Course (units unknown) (unknown) (unknown) (no date) (unknown) (unknown) Creatinine (0.52-1.04) mg/dL (units unknown) (unknown) (unknown) (no date) (unknown) (unknown) Creatinine 1.29 H (0.52-1.04) mg/dL (units unknown) (unknown) (unknown) (no date) (unknown) (unknown) : 1965 Acct:[id number] (units unknown) (unknown) (unknown) (no date) (unknown) (unknown) Date of Service: 09/06/22 (units unknown) (unknown) (unknown) (no date) (unknown) (unknown) Departure (units unknown) (unknown) (unknown) (no date) (unknown) (unknown) Discharge Plan (units unknown) (unknown) (unknown) (no date) (unknown) (unknown) Discontinued Medications (units unknown) (unknown) (unknown) (no date) (unknown) (unknown) ED Orders (units unknown) (unknown) (unknown) (no date) (unknown) (unknown) EKG-12 Lead Stat (units unknown) (unknown) (unknown) (no date) (unknown) (unknown) ENT: Nose without bleeding, purulent drainage. Throat without erythema, (units unknown) (unknown) (unknown) (no date) (unknown) (unknown) ER Physician: Aristeo Xiong D.O. (units unknown) (unknown) (unknown) (no date) (unknown) (unknown) EXTREMITIES: No valdo a or joint tenderness. (units unknown) (unknown) (unknown) (no date) (unknown) (unknown) EYES: Pupils equal round and reactive. Extraocular motions intact. No scleral (units unknown) (unknown) (unknown) (no date) (unknown) (unknown) Eliquis 5 mg tablet (units unknown) (unknown) (unknown) (no date) (unknown) (unknown) Emergency Report (units unknown) (unknown) (unknown) (no date) (unknown) (unknown) Eos # (Auto) (0-450) /uL (units unknown) (unknown) (unknown) (no date) (unknown) (unknown) Eos # (Auto) 100 (0-450) /uL (units unknown) (unknown) (unknown) (no date) (unknown) (unknown) Eos % (Auto) (2-4) % (units unknown) (unknown) (unknown) (no date) (unknown) (unknown) Eos % (Auto) 1.1 L (2-4) % (units unknown) (unknown) (unknown) (no date) (unknown) (unknown) Estimated GFR (>60) mL/min (units unknown) (unknown) (unknown) (no date) (unknown) (unknown) Estimated GFR 48 L (>60) mL/min (units unknown) (unknown) (unknown) (no date) (unknown) (unknown) Exam Narrative: (units unknown) (unknown) (unknown) (no date) (unknown) (unknown) Exam (units unknown) (unknown) (unknown) (no date) (unknown) (unknown) FiO2 32 (units unknown) (unknown) (unknown) (no date) (unknown) (unknown) FiO2 (units unknown) (unknown) (unknown) (no date) (unknown) (unknown) Fish Containing Products Allergy Severe Anaphylaxis Verified 07/27/22 13:29 (units unknown) (unknown) (unknown) (no date) (unknown) (unknown) GASTROINTESTINAL: Abdomen soft, non-tender, nondistended. (units unknown) (unknown) (unknown) (no date) (unknown) (unknown) GASTROINTESTINAL: Denies nausea, vomiting, abdominal pain, diarrhea, (units unknown) (unknown) (unknown) (no date) (unknown) (unknown) GENERAL: [57] year old patient appears stated age. Well-developed patient, in (units unknown) (unknown) (unknown) (no date) (unknown) (unknown) GENERAL: see HPI. (units unknown) (unknown) (unknown) (no date) (unknown) (unknown) : Denies dysuria, frequency, incontinence, hematuria, urinary retention. (units unknown) (unknown) (unknown) (no date) (unknown) (unknown) General (units unknown) (unknown) (unknown) (no date) (unknown) (unknown) Globulin (1.7-4.1) g/dL (units unknown) (unknown) (unknown) (no date) (unknown) (unknown) Globulin 2.9 (1.7-4.1) g/dL (units unknown) (unknown) (unknown) (no date) (unknown) (unknown) Glucose (70-100) mg/dL (units unknown) (unknown) (unknown) (no date) (unknown) (unknown) Glucose 89 (70-100) mg/dL (units unknown) (unknown) (unknown) (no date) (unknown) (unknown) HEAD: Atraumatic. Normocephalic. (units unknown) (unknown) (unknown) (no date) (unknown) (unknown) HEENT: Denies sinus pain, ear pain, sore throat, difficulty swallowing, (units unknown) (unknown) (unknown) (no date) (unknown) (unknown) HPI - General Adult (units unknown) (unknown) (unknown) (no date) (unknown) (unknown) HPI narrative: (units unknown) (unknown) (unknown) (no date) (unknown) (unknown) Hct (36-46) % (units unknown) (unknown) (unknown) (no date) (unknown) (unknown) Hct 42.1 (36-46) % (units unknown) (unknown) (unknown) (no date) (unknown) (unknown) Hgb (12.0-16.0) g/dL (units unknown) (unknown) (unknown) (no date) (unknown) (unknown) Hgb 14.5 (12.0-16.0) g/dL (units unknown) (unknown) (unknown) (no date) (unknown) (unknown) History of Present Illness (units unknown) (unknown) (unknown) (no date) (unknown) (unknown) Home Medications (units unknown) (unknown) (unknown) (no date) (unknown) (unknown) INHALE 2 PUFFS BY MOUTH 4 TIMES DAILY NEEDED (units unknown) (unknown) (unknown) (no date) (unknown) (unknown) INR (0.9-1.3) (units unknown) (unknown) (unknown) (no date) (unknown) (unknown) INR 1.3 (0.9-1.3) (units unknown) (unknown) (unknown) (no date) (unknown) (unknown) Initial Vital Signs (units unknown) (unknown) (unknown) (no date) (unknown) (unknown) Initial Vital Signs: (units unknown) (unknown) (unknown) (no date) (unknown) (unknown) [address] [address] (units unknown) (unknown) (unknown) (no date) (unknown) (unknown) Lab Data (units unknown) (unknown) (unknown) (no date) (unknown) (unknown) Lab Results (units unknown) (unknown) (unknown) (no date) (unknown) (unknown) Labs: (units unknown) (unknown) (unknown) (no date) (unknown) (unknown) Lactate (0.7-2.1) mmol/L (units unknown) (unknown) (unknown) (no date) (unknown) (unknown) Lactate (Lactic Acid ) Stat (units unknown) (unknown) (unknown) (no date) (unknown) (unknown) Lactate 1.0 (0.7-2.1 ) mmol/L (units unknown) (unknown) (unknown) (no date) (unknown) (unknown) Lipase (23-300) U/L (units unknown) (unknown) (unknown) (no date) (unknown) (unknown) Lipase 80 (23-300) U/L (units unknown) (unknown) (unknown) (no date) (unknown) (unknown) Lipase Stat (units unknown) (unknown) (unknown) (no date) (unknown) (unknown) Lymph # (Auto) (8112-1383) /uL (units unknown) (unknown) (unknown) (no date) (unknown) (unknown) Lymph # (Auto) 2700 (0943-4441) /uL (units unknown) (unknown) (unknown) (no date) (unknown) (unknown) Lymph % (Auto) (25-40) % (units unknown) (unknown) (unknown) (no date) (unknown) (unknown) Lymph % (Auto) 26.3 (25-40) % (units unknown) (unknown) (unknown) (no date) (unknown) (unknown) MCH (26-34) PG (units unknown) (unknown) (unknown) (no date) (unknown) (unknown) MCH 32.5 (26-34) PG (units unknown) (unknown) (unknown) (no date) (unknown) (unknown) MCHC (30-36) % (units unknown) (unknown) (unknown) (no date) (unknown) (unknown) MCHC 34.6 (30-36) % (units unknown) (unknown) (unknown) (no date) (unknown) (unknown) MCV (80-100) fL (units unknown) (unknown) (unknown) (no date) (unknown) (unknown) MCV 93.9 (80-100) fL (units unknown) (unknown) (unknown) (no date) (unknown) (unknown) MUSCULOSKELETAL: denies weakness, joint pain, or bony pain (units unknown) (unknown) (unknown) (no date) (unknown) (unknown) Magnesium (1.6-2.3) mg/dL (units unknown) (unknown) (unknown) (no date) (unknown) (unknown) Magnesium 1.9 (1.6-2.3) mg/dL (units unknown) (unknown) (unknown) (no date) (unknown) (unknown) Magnesium Stat (units unknown) (unknown) (unknown) (no date) (unknown) (unknown) Medical Decision Making (units unknown) (unknown) (unknown) (no date) (unknown) (unknown) Medical History (units unknown) (unknown) (unknown) (no date) (unknown) (unknown) Medication Instructions Recorded Confirmed (units unknown) (unknown) (unknown) (no date) (unknown) (unknown) Medication Instructions Recorded (units unknown) (unknown) (unknown) (no date) (unknown) (unknown) Methylprednisolone (Methylprednisolone 125 Mg/2 Ml Vial) 125 mg IV NOW ONE (units unknown) (unknown) (unknown) (no date) (unknown) (unknown) [place] # (Auto) (0-900 ) /uL (units unknown) (unknown) (unknown) (no date) (unknown) (unknown) [place] # (Auto) 1000 H (0-900) /uL (units unknown) (unknown) (unknown) (no date) (unknown) (unknown) [place] % (Auto) (3-14) % (units unknown) (unknown) (unknown) (no date) (unknown) (unknown) [place] % (Auto) 9.6 (3-14) % (units unknown) (unknown) (unknown) (no date) (unknown) (unknown) NECK: Trachea midline. Non tender (units unknown) (unknown) (unknown) (no date) (unknown) (unknown) NEURO: AOx3. (units unknown) (unknown) (unknown) (no date) (unknown) (unknown) NEUROLOGIC: Denies weakness, headache, numbness, change in speech, confusion, (units unknown) (unknown) (unknown) (no date) (unknown) (unknown) NT-Pro-B Natriuret Pep (<125) pg/mL (units unknown) (unknown) (unknown) (no date) (unknown) (unknown) NT-Pro-B Natriuret Pep 1250 H (<125) pg/mL (units unknown) (unknown) (unknown) (no date) (unknown) (unknown) NT-proBNP (BNP-Adult 18+) Stat (units unknown) (unknown) (unknown) (no date) (unknown) (unknown) Narrative (units unknown) (unknown) (unknown) (no date) (unknown) (unknown) Narrative: (units unknown) (unknown) (unknown) (no date) (unknown) (unknown) Neut # (Auto) (6306-5531) /uL (units unknown) (unknown) (unknown) (no date) (unknown) (unknown) Neut # (Auto) 6300 (3666-4491) /uL (units unknown) (unknown) (unknown) (no date) (unknown) (unknown) Neut % (Auto) (50-75 ) % (units unknown) (unknown) (unknown) (no date) (unknown) (unknown) Neut % (Auto) 62.0 (50-75) % (units unknown) (unknown) (unknown) (no date) (unknown) (unknown) No Action (units unknown) (unknown) (unknown) (no date) (unknown) (unknown) Ordered: (units unknown) (unknown) (unknown) (no date) (unknown) (unknown) Orders (units unknown) (unknown) (unknown) (no date) (unknown) (unknown) Oxygen Delivery Method Nasal Cannula (units unknown) (unknown) (unknown) (no date) (unknown) (unknown) Oxygen Delivery Method (units unknown) (unknown) (unknown) (no date) (unknown) (unknown) Oxygen Flow Rate 3 (units unknown) (unknown) (unknown) (no date) (unknown) (unknown) Oxygen Flow Rate (units unknown) (unknown) (unknown) (no date) (unknown) (unknown) PSYCHIATRIC: No concerning psychosocial issues. (units unknown) (unknown) (unknown) (no date) (unknown) (unknown) PT (10.1-12.7) SECONDS (units unknown) (unknown) (unknown) (no date) (unknown) (unknown) PT 15.5 H (10.1-12.7 ) SECONDS (units unknown) (unknown) (unknown) (no date) (unknown) (unknown) PTT Partial Thromboplastin Efrem Stat (units unknown) (unknown) (unknown) (no date) (unknown) (unknown) Patient Comments: (units unknown) (unknown) (unknown) (no date) (unknown) (unknown) Patient History (units unknown) (unknown) (unknown) (no date) (unknown) (unknown) Patient: Ester Benavides MR#: [id number] (units unknown) (unknown) (unknown) (no date) (unknown) (unknown) Plt Count (150-400) X103/uL (units unknown) (unknown) (unknown) (no date) (unknown) (unknown) Plt Count 232 (150-400) X103/uL (units unknown) (unknown) (unknown) (no date) (unknown) (unknown) Potassium (3.4-5.1) mmol/L (units unknown) (unknown) (unknown) (no date) (unknown) (unknown) Potassium 3.4 (3.4-5.1) mmol/L (units unknown) (unknown) (unknown) (no date) (unknown) (unknown) Prescriptions: (units unknown) (unknown) (unknown) (no date) (unknown) (unknown) Previous Rx's (units unknown) (unknown) (unknown) (no date) (unknown) (unknown) Procalcitonin (<0.5) ng/mL (units unknown) (unknown) (unknown) (no date) (unknown) (unknown) Procalcitonin 0.06 (<0.5) ng/mL (units unknown) (unknown) (unknown) (no date) (unknown) (unknown) Procalcitonin Stat (units unknown) (unknown) (unknown) (no date) (unknown) (unknown) Prothrombin Time INR Stat (units unknown) (unknown) (unknown) (no date) (unknown) (unknown) Pulse Oximetry 100 (units unknown) (unknown) (unknown) (no date) (unknown) (unknown) Pulse Oximetry 82 L (units unknown) (unknown) (unknown) (no date) (unknown) (unknown) Pulse Oximetry 93 94 (units unknown) (unknown) (unknown) (no date) (unknown) (unknown) Pulse Oximetry 93 96 (units unknown) (unknown) (unknown) (no date) (unknown) (unknown) Pulse Oximetry 96 (units unknown) (unknown) (unknown) (no date) (unknown) (unknown) Pulse Oximetry 97 96 (units unknown) (unknown) (unknown) (no date) (unknown) (unknown) Pulse Oximetry 97 97 (units unknown) (unknown) (unknown) (no date) (unknown) (unknown) Pulse Oximetry 98 09/06/22 16:39 (units unknown) (unknown) (unknown) (no date) (unknown) (unknown) Pulse Oximetry 98 98 (units unknown) (unknown) (unknown) (no date) (unknown) (unknown) Pulse Oximetry 99 98 98 (units unknown) (unknown) (unknown) (no date) (unknown) (unknown) Pulse Rate 44 L 09/06/22 16:39 (units unknown) (unknown) (unknown) (no date) (unknown) (unknown) Pulse Rate 80 44 L 80 (units unknown) (unknown) (unknown) (no date) (unknown) (unknown) Pulse Rate 80 (units unknown) (unknown) (unknown) (no date) (unknown) (unknown) Pulse Rate 81 78 (units unknown) (unknown) (unknown) (no date) (unknown) (unknown) Pulse Rate 81 80 (units unknown) (unknown) (unknown) (no date) (unknown) (unknown) Pulse Rate 82 82 (units unknown) (unknown) (unknown) (no date) (unknown) (unknown) Pulse Rate 83 80 (units unknown) (unknown) (unknown) (no date) (unknown) (unknown) Pulse Rate 84 (units unknown) (unknown) (unknown) (no date) (unknown) (unknown) Pulse Rate 86 (units unknown) (unknown) (unknown) (no date) (unknown) (unknown) Pulse Rate 93 H 82 (units unknown) (unknown) (unknown) (no date) (unknown) (unknown) Pulse Rate 94 H (units unknown) (unknown) (unknown) (no date) (unknown) (unknown) Pulse Rate 96 H (units unknown) (unknown) (unknown) (no date) (unknown) (unknown) RBC (4.0-5.2) X106/uL (units unknown) (unknown) (unknown) (no date) (unknown) (unknown) RBC 4.48 (4.0-5.2) X106/uL (units unknown) (unknown) (unknown) (no date) (unknown) (unknown) RDW (11.6-14.8) % (units unknown) (unknown) (unknown) (no date) (unknown) (unknown) RDW 14.8 (11.6-14.8) % (units unknown) (unknown) (unknown) (no date) (unknown) (unknown) RESPIRATORY: prolonged expiratory phase with decreased breath sounds (units unknown) (unknown) (unknown) (no date) (unknown) (unknown) RESPIRATORY: see HPI (units unknown) (unknown) (unknown) (no date) (unknown) (unknown) Referrals: (units unknown) (unknown) (unknown) (no date) (unknown) (unknown) Related Data (units unknown) (unknown) (unknown) (no date) (unknown) (unknown) Respiratory Panel (Film Array) Stat (units unknown) (unknown) (unknown) (no date) (unknown) (unknown) Respiratory Rate 24 (units unknown) (unknown) (unknown) (no date) (unknown) (unknown) Respiratory Rate 26 H (units unknown) (unknown) (unknown) (no date) (unknown) (unknown) Respiratory Rate 27 H (units unknown) (unknown) (unknown) (no date) (unknown) (unknown) Respiratory Rate 28 H 28 H (units unknown) (unknown) (unknown) (no date) (unknown) (unknown) Respiratory Rate 28 H 29 H (units unknown) (unknown) (unknown) (no date) (unknown) (unknown) Respiratory Rate 28 H (units unknown) (unknown) (unknown) (no date) (unknown) (unknown) Respiratory Rate 29 H 33 H (units unknown) (unknown) (unknown) (no date) (unknown) (unknown) Respiratory Rate 29 H (units unknown) (unknown) (unknown) (no date) (unknown) (unknown) Respiratory Rate 33 H 35 H (units unknown) (unknown) (unknown) (no date) (unknown) (unknown) Respiratory Rate 35 H 29 H (units unknown) (unknown) (unknown) (no date) (unknown) (unknown) Respiratory Rate 35 H 33 H (units unknown) (unknown) (unknown) (no date) (unknown) (unknown) Respiratory Rate 36 H (units unknown) (unknown) (unknown) (no date) (unknown) (unknown) Review of Systems (units unknown) (unknown) (unknown) (no date) (unknown) (unknown) SKIN: Denies rash, skin lesions, or other (units unknown) (unknown) (unknown) (no date) (unknown) (unknown) SKIN: No rash or erythema of visible areas (units unknown) (unknown) (unknown) (no date) (unknown) (unknown) She is had no recent travel, change in medications, doses or diet. (units unknown) (unknown) (unknown) (no date) (unknown) (unknown) Signed By: (units unknown) (unknown) (unknown) (no date) (unknown) (unknown) Smoking Status: Current every day smoker (units unknown) (unknown) (unknown) (no date) (unknown) (unknown) Social History (units unknown) (unknown) (unknown) (no date) (unknown) (unknown) Sodium (137-145) mmol/L (units unknown) (unknown) (unknown) (no date) (unknown) (unknown) Sodium 140 (137-145) mmol/L (units unknown) (unknown) (unknown) (no date) (unknown) (unknown) Stated complaint: SO B monday/ (units unknown) (unknown) (unknown) (no date) (unknown) (unknown) Stop: 09/06/22 16:36 (units unknown) (unknown) (unknown) (no date) (unknown) (unknown) Substance Use Type: does not use (units unknown) (unknown) (unknown) (no date) (unknown) (unknown) TAKE 1 TABLET BY MOUTH EVERY 6 HOURS NEEDED FOR PAIN (units unknown) (unknown) (unknown) (no date) (unknown) (unknown) TAKE 1 TABLET BY MOUTH ONCE DAILY (units unknown) (unknown) (unknown) (no date) (unknown) (unknown) TAKE 1 TABLET BY MOUTH TWICE DAILY (units unknown) (unknown) (unknown) (no date) (unknown) (unknown) TAKE 1/2 (ONE-HALF) TABLET BY MOUTH ONCE DAILY (units unknown) (unknown) (unknown) (no date) (unknown) (unknown) Time Seen by Provider: 09/06/22 16:31 (units unknown) (unknown) (unknown) (no date) (unknown) (unknown) Total Bilirubin (0.2-1.3) mg/dL (units unknown) (unknown) (unknown) (no date) (unknown) (unknown) Total Bilirubin 0.5 (0.2-1.3) mg/dL (units unknown) (unknown) (unknown) (no date) (unknown) (unknown) Total Creatine Kinas e < 20 L (30-135) U/L (units unknown) (unknown) (unknown) (no date) (unknown) (unknown) Total Creatine Kin[place] e (30-135) U/L (units unknown) (unknown) (unknown) (no date) (unknown) (unknown) Total Protein (6.3-8.2) g/dL (units unknown) (unknown) (unknown) (no date) (unknown) (unknown) Total Protein 6.7 (6.3-8.2) g/dL (units unknown) (unknown) (unknown) (no date) (unknown) (unknown) Troponin + CK Cardia c Panel Stat (units unknown) (unknown) (unknown) (no date) (unknown) (unknown) Troponin I (0.01-0.034) ng/mL (units unknown) (unknown) (unknown) (no date) (unknown) (unknown) Troponin I 0.013 (0.01-0.034) ng/mL (units unknown) (unknown) (unknown) (no date) (unknown) (unknown) Urinalysis and Microscopic Stat (units unknown) (unknown) (unknown) (no date) (unknown) (unknown) Vital Signs - 8 hr (units unknown) (unknown) (unknown) (no date) (unknown) (unknown) Vital Signs (units unknown) (unknown) (unknown) (no date) (unknown) (unknown) Vital signs: (units unknown) (unknown) (unknown) (no date) (unknown) (unknown) WBC (4.5-11.0) X103/uL (units unknown) (unknown) (unknown) (no date) (unknown) (unknown) WBC 10.2 (4.5-11.0) X103/uL (units unknown) (unknown) (unknown) (no date) (unknown) (unknown) Rohini Ceron PA-C [Primary Care Provider] (units unknown) (unknown) (unknown) (no date) (unknown) (unknown) [Embedded Image Not Available] (units unknown) (unknown) (unknown) (no date) (unknown) (unknown) acetaminophen [From Midol] Allergy Verified 07/06/21 13:33 (units unknown) (unknown) (unknown) (no date) (unknown) (unknown) activated powder inhaler (units unknown) (unknown) (unknown) (no date) (unknown) (unknown) aerosol inhaler (Ventolin HFA) Shortness Of Breath (units unknown) (unknown) (unknown) (no date) (unknown) (unknown) albuterol sulfate 90 mcg/actuation 2 puff inhalation QID PRN 07/25/22 07/25/22 (units unknown) (unknown) (unknown) (no date) (unknown) (unknown) albuterol sulfate [Ventolin HFA] 90 mcg/actuation HFA aerosol inhaler (units unknown) (unknown) (unknown) (no date) (unknown) (unknown) amiodarone 200 mg tablet 100 mg PO DAILY 07/25/22 07/25/22 (units unknown) (unknown) (unknown) (no date) (unknown) (unknown) amiodarone 200 mg tablet (units unknown) (unknown) (unknown) (no date) (unknown) (unknown) apixaban 5 mg tablet (Eliquis) 5 mg PO BID 07/25/22 07/25/22 (units unknown) (unknown) (unknown) (no date) (unknown) (unknown) bee pollen Allergy Severe Anaphylaxis Verified 07/28/22 10:43 (units unknown) (unknown) (unknown) (no date) (unknown) (unknown) budesonide 90 mcg/actuation Aerosol Powdr Breath Activated (units unknown) (unknown) (unknown) (no date) (unknown) (unknown) budesonide 90 mcg/actuation breath 2 inh inhalation BID 07/25/22 07/25/22 (units unknown) (unknown) (unknown) (no date) (unknown) (unknown) codeine Allergy Verified 07/06/21 13:34 (units unknown) (unknown) (unknown) (no date) (unknown) (unknown) constipation, melena. (units unknown) (unknown) (unknown) (no date) (unknown) (unknown) denies any runny nose, sore throat and has had a harsh wet sounding cough she (units unknown) (unknown) (unknown) (no date) (unknown) (unknown) dizziness. (units unknown) (unknown) (unknown) (no date) (unknown) (unknown) doxycycline AdvReac Vomiting Verified 07/28/22 10:43 (units unknown) (unknown) (unknown) (no date) (unknown) (unknown) erythromycin base Allergy Verified 07/06/21 13:34 (units unknown) (unknown) (unknown) (no date) (unknown) (unknown) furosemide 40 mg tablet 40 mg PO BID 07/25/22 07/25/22 (units unknown) (unknown) (unknown) (no date) (unknown) (unknown) furosemide 40 mg tablet (units unknown) (unknown) (unknown) (no date) (unknown) (unknown) glipizide 5 mg tablet, extended 5 mg PO DAILY #30 tabs 07/28/22 (units unknown) (unknown) (unknown) (no date) (unknown) (unknown) glipizide [Glucotrol XL] 5 mg tablet extended release 24hr (units unknown) (unknown) (unknown) (no date) (unknown) (unknown) her oxygen more ofte n than normal. She denies nausea, vomiting or diarrhea. (units unknown) (unknown) (unknown) (no date) (unknown) (unknown) household members: spouse (units unknown) (unknown) (unknown) (no date) (unknown) (unknown) hydrocodone 5 mg-acetaminophen 325 1 tab PO Q6H PRN Pain (Scale Score 07/25/22 (units unknown) (unknown) (unknown) (no date) (unknown) (unknown) hydrocodone-acetamin o phen 5-325 mg tablet (units unknown) (unknown) (unknown) (no date) (unknown) (unknown) icterus. No injectio n or drainage. (units unknown) (unknown) (unknown) (no date) (unknown) (unknown) iodine Allergy Rash Verified 07/27/22 13:32 (units unknown) (unknown) (unknown) (no date) (unknown) (unknown) latex Allergy Rash Verified 07/27/22 13:29 (units unknown) (unknown) (unknown) (no date) (unknown) (unknown) lisinopril 5 mg tablet 5 mg PO DAILY 07/25/22 07/25/22 (units unknown) (unknown) (unknown) (no date) (unknown) (unknown) lisinopril 5 mg tablet (units unknown) (unknown) (unknown) (no date) (unknown) (unknown) lives independently: Yes (units unknown) (unknown) (unknown) (no date) (unknown) (unknown) metoprolol succinate 100 mg 100 mg PO BID 07/25/22 07/25/22 (units unknown) (unknown) (unknown) (no date) (unknown) (unknown) metoprolol succinate 100 mg Tablet Extended Release 24 Hr (units unknown) (unknown) (unknown) (no date) (unknown) (unknown) mg tablet 4-6) (units unknown) (unknown) (unknown) (no date) (unknown) (unknown) mild distress. (units unknown) (unknown) (unknown) (no date) (unknown) (unknown) montelukast 10 mg Tablet (units unknown) (unknown) (unknown) (no date) (unknown) (unknown) montelukast 10 mg tablet 10 mg PO DAILY 07/25/22 07/25/22 (units unknown) (unknown) (unknown) (no date) (unknown) (unknown) oxycodone 5 mg Tablet (units unknown) (unknown) (unknown) (no date) (unknown) (unknown) oxycodone 5 mg table t 5 mg PO Q4HR PRN pain #20 tabs 07/28/22 (units unknown) (unknown) (unknown) (no date) (unknown) (unknown) tereza [From [facility] ] Allergy Verified 07/06/21 13:33 (units unknown) (unknown) (unknown) (no date) (unknown) (unknown) prednisone 20 mg Tablet (units unknown) (unknown) (unknown) (no date) (unknown) (unknown) prednisone 20 mg tablet 40 mg PO DAILY #3 tabs 07/28/22 (units unknown) (unknown) (unknown) (no date) (unknown) (unknown) prednisone 5 mg tablet 5 mg PO DAILY #3 tabs 07/28/22 (units unknown) (unknown) (unknown) (no date) (unknown) (unknown) prednisone 5 mg tablet (units unknown) (unknown) (unknown) (no date) (unknown) (unknown) presents by EMS with worsening shortness of breath over the past 3-4 days. She (units unknown) (unknown) (unknown) (no date) (unknown) (unknown) release 24 hr (Glucotrol XL) (units unknown) (unknown) (unknown) (no date) (unknown) (unknown) seizures, incoordination. (units unknown) (unknown) (unknown) (no date) (unknown) (unknown) shellfish derived Allergy Severe Anaphylaxis Verified 07/28/22 10:43 (units unknown) (unknown) (unknown) (no date) (unknown) (unknown) short of breath with exertion and lying flat and admits that she is been using (units unknown) (unknown) (unknown) (no date) (unknown) (unknown) spironolactone 25 mg tablet 25 mg PO DAILY 07/25/22 07/25/22 (units unknown) (unknown) (unknown) (no date) (unknown) (unknown) spironolactone 25 mg tablet (units unknown) (unknown) (unknown) (no date) (unknown) (unknown) states for many year s and it is no different than normal. She becomes more (units unknown) (unknown) (unknown) (no date) (unknown) (unknown) tablet,extended release 24 hr (units unknown) (unknown) (unknown) (no date) (unknown) (unknown) throughout, perhaps faint crackles in bilateral bases (units unknown) (unknown) (unknown) (no date) (unknown) (unknown) tonsillar hypertroph y or exudate. Airway patent. (units unknown) (unknown) Result panel [id number] (unknown) (no date) (unknown) (unknown) (no value) (units unknown) (unknown) (unknown) (no date) (unknown) (unknown) 07/25/22 (units unknown) (unknown) (unknown) (no date) (unknown) (unknown) 09/06/22 09/06/22 09/06/22 Range/Units (units unknown) (unknown) (unknown) (no date) (unknown) (unknown) 09/06/22 09/06/22 Range/Units (units unknown) (unknown) (unknown) (no date) (unknown) (unknown) 09/06/22 16:35 (units unknown) (unknown) (unknown) (no date) (unknown) (unknown) 09/06/22 16:36 (units unknown) (unknown) (unknown) (no date) (unknown) (unknown) 09/06/22 17:10 (units unknown) (unknown) (unknown) (no date) (unknown) (unknown) 09/06/22 17:16 (units unknown) (unknown) (unknown) (no date) (unknown) (unknown) 09/06/22 17:30 (units unknown) (unknown) (unknown) (no date) (unknown) (unknown) 09/06/22 (units unknown) (unknown) (unknown) (no date) (unknown) (unknown) 1 tab PO Q6H PRN (Reason: Pain (Scale Score 4-6)) (units unknown) (unknown) (unknown) (no date) (unknown) (unknown) 10 mg PO DAILY (units unknown) (unknown) (unknown) (no date) (unknown) (unknown) 100 mg PO BID (units unknown) (unknown) (unknown) (no date) (unknown) (unknown) 100 mg PO DAILY (units unknown) (unknown) (unknown) (no date) (unknown) (unknown) 12 point review of systems is negative except for those stated above (units unknown) (unknown) (unknown) (no date) (unknown) (unknown) 16:39 09/06/22 (units unknown) (unknown) (unknown) (no date) (unknown) (unknown) 16:42 09/06/22 (units unknown) (unknown) (unknown) (no date) (unknown) (unknown) 16:42 (units unknown) (unknown) (unknown) (no date) (unknown) (unknown) 16:45 09/06/22 (units unknown) (unknown) (unknown) (no date) (unknown) (unknown) 16:45 (units unknown) (unknown) (unknown) (no date) (unknown) (unknown) 16:50 09/06/22 (units unknown) (unknown) (unknown) (no date) (unknown) (unknown) 17:00 09/06/22 (units unknown) (unknown) (unknown) (no date) (unknown) (unknown) 17:01 09/06/22 (units unknown) (unknown) (unknown) (no date) (unknown) (unknown) 17:01 (units unknown) (unknown) (unknown) (no date) (unknown) (unknown) 17:06 09/06/22 (units unknown) (unknown) (unknown) (no date) (unknown) (unknown) 17:10 09/06/22 (units unknown) (unknown) (unknown) (no date) (unknown) (unknown) 17:10 17:16 17:16 (units unknown) (unknown) (unknown) (no date) (unknown) (unknown) 17:10 (units unknown) (unknown) (unknown) (no date) (unknown) (unknown) 17:15 09/06/22 (units unknown) (unknown) (unknown) (no date) (unknown) (unknown) 17:15 (units unknown) (unknown) (unknown) (no date) (unknown) (unknown) 17:16 17:16 (units unknown) (unknown) (unknown) (no date) (unknown) (unknown) 17:21 09/06/22 (units unknown) (unknown) (unknown) (no date) (unknown) (unknown) 17:26 09/06/22 (units unknown) (unknown) (unknown) (no date) (unknown) (unknown) 17:26 (units unknown) (unknown) (unknown) (no date) (unknown) (unknown) 17:30 09/06/22 (units unknown) (unknown) (unknown) (no date) (unknown) (unknown) 17:30 (units unknown) (unknown) (unknown) (no date) (unknown) (unknown) 17:36 09/06/22 (units unknown) (unknown) (unknown) (no date) (unknown) (unknown) 17:38 09/06/22 (units unknown) (unknown) (unknown) (no date) (unknown) (unknown) 17:38 (units unknown) (unknown) (unknown) (no date) (unknown) (unknown) 17:40 09/06/22 (units unknown) (unknown) (unknown) (no date) (unknown) (unknown) 17:40 (units unknown) (unknown) (unknown) (no date) (unknown) (unknown) 17:42 09/06/22 (units unknown) (unknown) (unknown) (no date) (unknown) (unknown) 17:45 (units unknown) (unknown) (unknown) (no date) (unknown) (unknown) 17:46 09/06/22 (units unknown) (unknown) (unknown) (no date) (unknown) (unknown) 17:48 (units unknown) (unknown) (unknown) (no date) (unknown) (unknown) [id number] (units unknown) (unknown) (unknown) (no date) (unknown) (unknown) 2 inh INHALATION BID (units unknown) (unknown) (unknown) (no date) (unknown) (unknown) 2 puff INHALATION QI D PRN (Reason: Shortness Of Breath) (units unknown) (unknown) (unknown) (no date) (unknown) (unknown) 25 mg PO DAILY (units unknown) (unknown) (unknown) (no date) (unknown) (unknown) 40 mg PO BID (units unknown) (unknown) (unknown) (no date) (unknown) (unknown) 40 mg PO DAILY Qty: 3 0RF (units unknown) (unknown) (unknown) (no date) (unknown) (unknown) 5 mg PO BID (units unknown) (unknown) (unknown) (no date) (unknown) (unknown) 5 mg PO DAILY Qty: 3 0RF (units unknown) (unknown) (unknown) (no date) (unknown) (unknown) 5 mg PO DAILY Qty: 3 0 3RF (units unknown) (unknown) (unknown) (no date) (unknown) (unknown) 5 mg PO DAILY (units unknown) (unknown) (unknown) (no date) (unknown) (unknown) 5 mg PO Q4HR PRN (Reason: pain) Qty: 20 0RF (units unknown) (unknown) (unknown) (no date) (unknown) (unknown) 57-year-old female daily smoker with history of COPD on home oxygen at 3 L (units unknown) (unknown) (unknown) (no date) (unknown) (unknown) ABG Base Excess (-2-3) mmol/L (units unknown) (unknown) (unknown) (no date) (unknown) (unknown) ABG Base Excess 6.0 H (-2-3) mmol/L (units unknown) (unknown) (unknown) (no date) (unknown) (unknown) ABG HCO3 (23-27) mmol/L (units unknown) (unknown) (unknown) (no date) (unknown) (unknown) ABG HCO3 31 H (23-27 ) mmol/L (units unknown) (unknown) (unknown) (no date) (unknown) (unknown) ABG O2 Saturation (95-100) % (units unknown) (unknown) (unknown) (no date) (unknown) (unknown) ABG O2 Saturation 94 L (95-100) % (units unknown) (unknown) (unknown) (no date) (unknown) (unknown) ABG Total CO2 (23-27 ) mmol/L (units unknown) (unknown) (unknown) (no date) (unknown) (unknown) ABG Total CO2 32 H (23-27) mmol/L (units unknown) (unknown) (unknown) (no date) (unknown) (unknown) ABG pCO2 (35-45) mmHg (units unknown) (unknown) (unknown) (no date) (unknown) (unknown) ABG pCO2 46.9 H (35-45) mmHg (units unknown) (unknown) (unknown) (no date) (unknown) (unknown) ABG pH (7.35-7.45) (units unknown) (unknown) (unknown) (no date) (unknown) (unknown) ABG pH 7.42 (7.35-7.45) (units unknown) (unknown) (unknown) (no date) (unknown) (unknown) ABG pO2 (80-100) mmHg (units unknown) (unknown) (unknown) (no date) (unknown) (unknown) ABG pO2 70 L (80-100 ) mmHg (units unknown) (unknown) (unknown) (no date) (unknown) (unknown) ALT (<35) IU/L (units unknown) (unknown) (unknown) (no date) (unknown) (unknown) ALT 19 (<35) IU/L (units unknown) (unknown) (unknown) (no date) (unknown) (unknown) APTT (26-36) SECONDS (units unknown) (unknown) (unknown) (no date) (unknown) (unknown) APTT 23 L (26-36) SECONDS (units unknown) (unknown) (unknown) (no date) (unknown) (unknown) AST (14-36) IU/L (units unknown) (unknown) (unknown) (no date) (unknown) (unknown) AST 20 (14-36) IU/L (units unknown) (unknown) (unknown) (no date) (unknown) (unknown) Age/Sex: 57 / F (units unknown) (unknown) (unknown) (no date) (unknown) (unknown) Albumin (3.5-5.0) g/dL (units unknown) (unknown) (unknown) (no date) (unknown) (unknown) Albumin 3.8 (3.5-5.0 ) g/dL (units unknown) (unknown) (unknown) (no date) (unknown) (unknown) Albumin/Globulin Ratio (1.0-2.8) (units unknown) (unknown) (unknown) (no date) (unknown) (unknown) Albumin/Globulin Ratio 1.3 (1.0-2.8) (units unknown) (unknown) (unknown) (no date) (unknown) (unknown) Alkaline Phosphatase (38-126) U/L (units unknown) (unknown) (unknown) (no date) (unknown) (unknown) Alkaline Phosphatase 81 (38-126) U/L (units unknown) (unknown) (unknown) (no date) (unknown) (unknown) Allergies (units unknown) (unknown) (unknown) (no date) (unknown) (unknown) Allergy/AdvReac Type Severity Reaction Status Date / Time (units unknown) (unknown) (unknown) (no date) (unknown) (unknown) Arterial Blood Gas Stat (units unknown) (unknown) (unknown) (no date) (unknown) (unknown) BACK: Nontender without deformity or crepitance. No flank tenderness. (units unknown) (unknown) (unknown) (no date) (unknown) (unknown) BUN (7-17) mg/dL (units unknown) (unknown) (unknown) (no date) (unknown) (unknown) BUN 26 H (7-17) mg/dL (units unknown) (unknown) (unknown) (no date) (unknown) (unknown) BUN/Creatinine Ratio (6-22) (units unknown) (unknown) (unknown) (no date) (unknown) (unknown) BUN/Creatinine Ratio 20.2 (6-22) (units unknown) (unknown) (unknown) (no date) (unknown) (unknown) Baso # (Auto) (0-100 ) /uL (units unknown) (unknown) (unknown) (no date) (unknown) (unknown) Baso # (Auto) 100 (0-100) /uL (units unknown) (unknown) (unknown) (no date) (unknown) (unknown) Baso % (Auto) (0-2) % (units unknown) (unknown) (unknown) (no date) (unknown) (unknown) Baso % (Auto) 1.0 (0-2) % (units unknown) (unknown) (unknown) (no date) (unknown) (unknown) Blood Pressure 100/4 9 L 104/52 L (units unknown) (unknown) (unknown) (no date) (unknown) (unknown) Blood Pressure 102/7 1 150/71 H (units unknown) (unknown) (unknown) (no date) (unknown) (unknown) Blood Pressure 104/4 8 L (units unknown) (unknown) (unknown) (no date) (unknown) (unknown) Blood Pressure 110/5 3 L 96/54 L (units unknown) (unknown) (unknown) (no date) (unknown) (unknown) Blood Pressure 112/5 4 L (units unknown) (unknown) (unknown) (no date) (unknown) (unknown) Blood Pressure 115/5 8 L (units unknown) (unknown) (unknown) (no date) (unknown) (unknown) Blood Pressure 72/43 L (units unknown) (unknown) (unknown) (no date) (unknown) (unknown) Blood Pressure 76/42 L 93/54 L (units unknown) (unknown) (unknown) (no date) (unknown) (unknown) Blood Pressure 83/51 L 71/46 L (units unknown) (unknown) (unknown) (no date) (unknown) (unknown) Blood Pressure 93/54 L (units unknown) (unknown) (unknown) (no date) (unknown) (unknown) Blood Pressure (units unknown) (unknown) (unknown) (no date) (unknown) (unknown) CARDIOVASCULAR: Irregular rhythm (units unknown) (unknown) (unknown) (no date) (unknown) (unknown) CARDIOVASCULAR: see HPI (units unknown) (unknown) (unknown) (no date) (unknown) (unknown) CK-MB (CK-2) Rel Index TNP (units unknown) (unknown) (unknown) (no date) (unknown) (unknown) CK-MB (CK-2) Rel Index (units unknown) (unknown) (unknown) (no date) (unknown) (unknown) CK-MB (CK-2) TNP (units unknown) (unknown) (unknown) (no date) (unknown) (unknown) CK-MB (CK-2) (units unknown) (unknown) (unknown) (no date) (unknown) (unknown) COPD (chronic obstructive pulmonary disease) (units unknown) (unknown) (unknown) (no date) (unknown) (unknown) Calcium (8.4-10.2) mg/dL (units unknown) (unknown) (unknown) (no date) (unknown) (unknown) Calcium 9.0 (8.4-10.2) mg/dL (units unknown) (unknown) (unknown) (no date) (unknown) (unknown) Carbon Dioxide (22-32) mmol/L (units unknown) (unknown) (unknown) (no date) (unknown) (unknown) Carbon Dioxide 35 H (22-32) mmol/L (units unknown) (unknown) (unknown) (no date) (unknown) (unknown) Chest [XR chest 1V] Stat (units unknown) (unknown) (unknown) (no date) (unknown) (unknown) Chief complaint: Shortness of Breath/Dyspnea (units unknown) (unknown) (unknown) (no date) (unknown) (unknown) Chloride (98-107) mmol/L (units unknown) (unknown) (unknown) (no date) (unknown) (unknown) Chloride 100 (98-107 ) mmol/L (units unknown) (unknown) (unknown) (no date) (unknown) (unknown) Complete Blood Count AUTO DIFF Stat (units unknown) (unknown) (unknown) (no date) (unknown) (unknown) Comprehensive Metabolic Panel Stat (units unknown) (unknown) (unknown) (no date) (unknown) (unknown) Course (units unknown) (unknown) (unknown) (no date) (unknown) (unknown) Creatinine (0.52-1.04) mg/dL (units unknown) (unknown) (unknown) (no date) (unknown) (unknown) Creatinine 1.29 H (0.52-1.04) mg/dL (units unknown) (unknown) (unknown) (no date) (unknown) (unknown) : 1965 Acct:[id number] (units unknown) (unknown) (unknown) (no date) (unknown) (unknown) Date of Service: 09/06/22 (units unknown) (unknown) (unknown) (no date) (unknown) (unknown) Departure (units unknown) (unknown) (unknown) (no date) (unknown) (unknown) Discharge Plan (units unknown) (unknown) (unknown) (no date) (unknown) (unknown) Discontinued Medications (units unknown) (unknown) (unknown) (no date) (unknown) (unknown) ED Orders (units unknown) (unknown) (unknown) (no date) (unknown) (unknown) EKG-12 Lead Stat (units unknown) (unknown) (unknown) (no date) (unknown) (unknown) ENT: Nose without bleeding, purulent drainage. Throat without erythema, (units unknown) (unknown) (unknown) (no date) (unknown) (unknown) ER Physician: Aristeo Xiong D.O. (units unknown) (unknown) (unknown) (no date) (unknown) (unknown) EXTREMITIES: No valdo a or joint tenderness. (units unknown) (unknown) (unknown) (no date) (unknown) (unknown) EYES: Pupils equal round and reactive. Extraocular motions intact. No scleral (units unknown) (unknown) (unknown) (no date) (unknown) (unknown) Eliquis 5 mg tablet (units unknown) (unknown) (unknown) (no date) (unknown) (unknown) Emergency Report (units unknown) (unknown) (unknown) (no date) (unknown) (unknown) Eos # (Auto) (0-450) /uL (units unknown) (unknown) (unknown) (no date) (unknown) (unknown) Eos # (Auto) 100 (0-450) /uL (units unknown) (unknown) (unknown) (no date) (unknown) (unknown) Eos % (Auto) (2-4) % (units unknown) (unknown) (unknown) (no date) (unknown) (unknown) Eos % (Auto) 1.1 L (2-4) % (units unknown) (unknown) (unknown) (no date) (unknown) (unknown) Estimated GFR (>60) mL/min (units unknown) (unknown) (unknown) (no date) (unknown) (unknown) Estimated GFR 48 L (>60) mL/min (units unknown) (unknown) (unknown) (no date) (unknown) (unknown) Exam Narrative: (units unknown) (unknown) (unknown) (no date) (unknown) (unknown) Exam (units unknown) (unknown) (unknown) (no date) (unknown) (unknown) FiO2 32 (units unknown) (unknown) (unknown) (no date) (unknown) (unknown) FiO2 (units unknown) (unknown) (unknown) (no date) (unknown) (unknown) Fish Containing Products Allergy Severe Anaphylaxis Verified 07/27/22 13:29 (units unknown) (unknown) (unknown) (no date) (unknown) (unknown) GASTROINTESTINAL: Abdomen soft, non-tender, nondistended. (units unknown) (unknown) (unknown) (no date) (unknown) (unknown) GASTROINTESTINAL: Denies nausea, vomiting, abdominal pain, diarrhea, (units unknown) (unknown) (unknown) (no date) (unknown) (unknown) GENERAL: [57] year old patient appears stated age. Well-developed patient, in (units unknown) (unknown) (unknown) (no date) (unknown) (unknown) GENERAL: see HPI. (units unknown) (unknown) (unknown) (no date) (unknown) (unknown) : Denies dysuria, frequency, incontinence, hematuria, urinary retention. (units unknown) (unknown) (unknown) (no date) (unknown) (unknown) General (units unknown) (unknown) (unknown) (no date) (unknown) (unknown) Globulin (1.7-4.1) g/dL (units unknown) (unknown) (unknown) (no date) (unknown) (unknown) Globulin 2.9 (1.7-4.1) g/dL (units unknown) (unknown) (unknown) (no date) (unknown) (unknown) Glucose (70-100) mg/dL (units unknown) (unknown) (unknown) (no date) (unknown) (unknown) Glucose 89 (70-100) mg/dL (units unknown) (unknown) (unknown) (no date) (unknown) (unknown) HEAD: Atraumatic. Normocephalic. (units unknown) (unknown) (unknown) (no date) (unknown) (unknown) HEENT: Denies sinus pain, ear pain, sore throat, difficulty swallowing, (units unknown) (unknown) (unknown) (no date) (unknown) (unknown) HPI - General Adult (units unknown) (unknown) (unknown) (no date) (unknown) (unknown) HPI narrative: (units unknown) (unknown) (unknown) (no date) (unknown) (unknown) Hct (36-46) % (units unknown) (unknown) (unknown) (no date) (unknown) (unknown) Hct 42.1 (36-46) % (units unknown) (unknown) (unknown) (no date) (unknown) (unknown) Hgb (12.0-16.0) g/dL (units unknown) (unknown) (unknown) (no date) (unknown) (unknown) Hgb 14.5 (12.0-16.0) g/dL (units unknown) (unknown) (unknown) (no date) (unknown) (unknown) History of Present Illness (units unknown) (unknown) (unknown) (no date) (unknown) (unknown) Home Medications (units unknown) (unknown) (unknown) (no date) (unknown) (unknown) INHALE 2 PUFFS BY MOUTH 4 TIMES DAILY NEEDED (units unknown) (unknown) (unknown) (no date) (unknown) (unknown) INR (0.9-1.3) (units unknown) (unknown) (unknown) (no date) (unknown) (unknown) INR 1.3 (0.9-1.3) (units unknown) (unknown) (unknown) (no date) (unknown) (unknown) Initial Vital Signs (units unknown) (unknown) (unknown) (no date) (unknown) (unknown) Initial Vital Signs: (units unknown) (unknown) (unknown) (no date) (unknown) (unknown) [address] [address] (units unknown) (unknown) (unknown) (no date) (unknown) (unknown) Lab Data (units unknown) (unknown) (unknown) (no date) (unknown) (unknown) Lab Results (units unknown) (unknown) (unknown) (no date) (unknown) (unknown) Labs: (units unknown) (unknown) (unknown) (no date) (unknown) (unknown) Lactate (0.7-2.1) mmol/L (units unknown) (unknown) (unknown) (no date) (unknown) (unknown) Lactate (Lactic Acid ) Stat (units unknown) (unknown) (unknown) (no date) (unknown) (unknown) Lactate 1.0 (0.7-2.1 ) mmol/L (units unknown) (unknown) (unknown) (no date) (unknown) (unknown) Lipase (23-300) U/L (units unknown) (unknown) (unknown) (no date) (unknown) (unknown) Lipase 80 (23-300) U/L (units unknown) (unknown) (unknown) (no date) (unknown) (unknown) Lipase Stat (units unknown) (unknown) (unknown) (no date) (unknown) (unknown) Lymph # (Auto) (7896-9202) /uL (units unknown) (unknown) (unknown) (no date) (unknown) (unknown) Lymph # (Auto) 2700 (5748-0122) /uL (units unknown) (unknown) (unknown) (no date) (unknown) (unknown) Lymph % (Auto) (25-40) % (units unknown) (unknown) (unknown) (no date) (unknown) (unknown) Lymph % (Auto) 26.3 (25-40) % (units unknown) (unknown) (unknown) (no date) (unknown) (unknown) MCH (26-34) PG (units unknown) (unknown) (unknown) (no date) (unknown) (unknown) MCH 32.5 (26-34) PG (units unknown) (unknown) (unknown) (no date) (unknown) (unknown) MCHC (30-36) % (units unknown) (unknown) (unknown) (no date) (unknown) (unknown) MCHC 34.6 (30-36) % (units unknown) (unknown) (unknown) (no date) (unknown) (unknown) MCV (80-100) fL (units unknown) (unknown) (unknown) (no date) (unknown) (unknown) MCV 93.9 (80-100) fL (units unknown) (unknown) (unknown) (no date) (unknown) (unknown) MUSCULOSKELETAL: denies weakness, joint pain, or bony pain (units unknown) (unknown) (unknown) (no date) (unknown) (unknown) Magnesium (1.6-2.3) mg/dL (units unknown) (unknown) (unknown) (no date) (unknown) (unknown) Magnesium 1.9 (1.6-2.3) mg/dL (units unknown) (unknown) (unknown) (no date) (unknown) (unknown) Magnesium Stat (units unknown) (unknown) (unknown) (no date) (unknown) (unknown) Medical Decision Making (units unknown) (unknown) (unknown) (no date) (unknown) (unknown) Medical History (units unknown) (unknown) (unknown) (no date) (unknown) (unknown) Medication Instructions Recorded Confirmed (units unknown) (unknown) (unknown) (no date) (unknown) (unknown) Medication Instructions Recorded (units unknown) (unknown) (unknown) (no date) (unknown) (unknown) Methylprednisolone (Methylprednisolone 125 Mg/2 Ml Vial) 125 mg IV NOW ONE (units unknown) (unknown) (unknown) (no date) (unknown) (unknown) [place] # (Auto) (0-900 ) /uL (units unknown) (unknown) (unknown) (no date) (unknown) (unknown) [place] # (Auto) 1000 H (0-900) /uL (units unknown) (unknown) (unknown) (no date) (unknown) (unknown) [place] % (Auto) (3-14) % (units unknown) (unknown) (unknown) (no date) (unknown) (unknown) [place] % (Auto) 9.6 (3-14) % (units unknown) (unknown) (unknown) (no date) (unknown) (unknown) NECK: Trachea midline. Non tender (units unknown) (unknown) (unknown) (no date) (unknown) (unknown) NEURO: AOx3. (units unknown) (unknown) (unknown) (no date) (unknown) (unknown) NEUROLOGIC: Denies weakness, headache, numbness, change in speech, confusion, (units unknown) (unknown) (unknown) (no date) (unknown) (unknown) NT-Pro-B Natriuret Pep (<125) pg/mL (units unknown) (unknown) (unknown) (no date) (unknown) (unknown) NT-Pro-B Natriuret Pep 1250 H (<125) pg/mL (units unknown) (unknown) (unknown) (no date) (unknown) (unknown) NT-proBNP (BNP-Adult 18+) Stat (units unknown) (unknown) (unknown) (no date) (unknown) (unknown) Narrative (units unknown) (unknown) (unknown) (no date) (unknown) (unknown) Narrative: (units unknown) (unknown) (unknown) (no date) (unknown) (unknown) Neut # (Auto) (7277-7998) /uL (units unknown) (unknown) (unknown) (no date) (unknown) (unknown) Neut # (Auto) 6300 (7624-2627) /uL (units unknown) (unknown) (unknown) (no date) (unknown) (unknown) Neut % (Auto) (50-75 ) % (units unknown) (unknown) (unknown) (no date) (unknown) (unknown) Neut % (Auto) 62.0 (50-75) % (units unknown) (unknown) (unknown) (no date) (unknown) (unknown) No Action (units unknown) (unknown) (unknown) (no date) (unknown) (unknown) Ordered: (units unknown) (unknown) (unknown) (no date) (unknown) (unknown) Orders (units unknown) (unknown) (unknown) (no date) (unknown) (unknown) Oxygen Delivery Method Nasal Cannula (units unknown) (unknown) (unknown) (no date) (unknown) (unknown) Oxygen Delivery Method (units unknown) (unknown) (unknown) (no date) (unknown) (unknown) Oxygen Flow Rate 3 (units unknown) (unknown) (unknown) (no date) (unknown) (unknown) Oxygen Flow Rate (units unknown) (unknown) (unknown) (no date) (unknown) (unknown) PSYCHIATRIC: No concerning psychosocial issues. (units unknown) (unknown) (unknown) (no date) (unknown) (unknown) PT (10.1-12.7) SECONDS (units unknown) (unknown) (unknown) (no date) (unknown) (unknown) PT 15.5 H (10.1-12.7 ) SECONDS (units unknown) (unknown) (unknown) (no date) (unknown) (unknown) PTT Partial Thromboplastin Efrem Stat (units unknown) (unknown) (unknown) (no date) (unknown) (unknown) Patient Comments: (units unknown) (unknown) (unknown) (no date) (unknown) (unknown) Patient History (units unknown) (unknown) (unknown) (no date) (unknown) (unknown) Patient: Ester Benavides MR#: [id number] (units unknown) (unknown) (unknown) (no date) (unknown) (unknown) Plt Count (150-400) X103/uL (units unknown) (unknown) (unknown) (no date) (unknown) (unknown) Plt Count 232 (150-400) X103/uL (units unknown) (unknown) (unknown) (no date) (unknown) (unknown) Potassium (3.4-5.1) mmol/L (units unknown) (unknown) (unknown) (no date) (unknown) (unknown) Potassium 3.4 (3.4-5.1) mmol/L (units unknown) (unknown) (unknown) (no date) (unknown) (unknown) Prescriptions: (units unknown) (unknown) (unknown) (no date) (unknown) (unknown) Previous Rx's (units unknown) (unknown) (unknown) (no date) (unknown) (unknown) Procalcitonin (<0.5) ng/mL (units unknown) (unknown) (unknown) (no date) (unknown) (unknown) Procalcitonin 0.06 (<0.5) ng/mL (units unknown) (unknown) (unknown) (no date) (unknown) (unknown) Procalcitonin Stat (units unknown) (unknown) (unknown) (no date) (unknown) (unknown) Prothrombin Time INR Stat (units unknown) (unknown) (unknown) (no date) (unknown) (unknown) Pulse Oximetry 100 (units unknown) (unknown) (unknown) (no date) (unknown) (unknown) Pulse Oximetry 82 L (units unknown) (unknown) (unknown) (no date) (unknown) (unknown) Pulse Oximetry 93 94 (units unknown) (unknown) (unknown) (no date) (unknown) (unknown) Pulse Oximetry 93 96 (units unknown) (unknown) (unknown) (no date) (unknown) (unknown) Pulse Oximetry 96 (units unknown) (unknown) (unknown) (no date) (unknown) (unknown) Pulse Oximetry 97 96 (units unknown) (unknown) (unknown) (no date) (unknown) (unknown) Pulse Oximetry 97 97 (units unknown) (unknown) (unknown) (no date) (unknown) (unknown) Pulse Oximetry 98 09/06/22 16:39 (units unknown) (unknown) (unknown) (no date) (unknown) (unknown) Pulse Oximetry 98 98 (units unknown) (unknown) (unknown) (no date) (unknown) (unknown) Pulse Oximetry 99 98 98 (units unknown) (unknown) (unknown) (no date) (unknown) (unknown) Pulse Rate 44 L 09/06/22 16:39 (units unknown) (unknown) (unknown) (no date) (unknown) (unknown) Pulse Rate 80 44 L 80 (units unknown) (unknown) (unknown) (no date) (unknown) (unknown) Pulse Rate 80 (units unknown) (unknown) (unknown) (no date) (unknown) (unknown) Pulse Rate 81 78 (units unknown) (unknown) (unknown) (no date) (unknown) (unknown) Pulse Rate 81 80 (units unknown) (unknown) (unknown) (no date) (unknown) (unknown) Pulse Rate 82 82 (units unknown) (unknown) (unknown) (no date) (unknown) (unknown) Pulse Rate 83 80 (units unknown) (unknown) (unknown) (no date) (unknown) (unknown) Pulse Rate 84 (units unknown) (unknown) (unknown) (no date) (unknown) (unknown) Pulse Rate 86 (units unknown) (unknown) (unknown) (no date) (unknown) (unknown) Pulse Rate 93 H 82 (units unknown) (unknown) (unknown) (no date) (unknown) (unknown) Pulse Rate 94 H (units unknown) (unknown) (unknown) (no date) (unknown) (unknown) Pulse Rate 96 H (units unknown) (unknown) (unknown) (no date) (unknown) (unknown) RBC (4.0-5.2) X106/uL (units unknown) (unknown) (unknown) (no date) (unknown) (unknown) RBC 4.48 (4.0-5.2) X106/uL (units unknown) (unknown) (unknown) (no date) (unknown) (unknown) RDW (11.6-14.8) % (units unknown) (unknown) (unknown) (no date) (unknown) (unknown) RDW 14.8 (11.6-14.8) % (units unknown) (unknown) (unknown) (no date) (unknown) (unknown) RESPIRATORY: prolonged expiratory phase with decreased breath sounds (units unknown) (unknown) (unknown) (no date) (unknown) (unknown) RESPIRATORY: see HPI (units unknown) (unknown) (unknown) (no date) (unknown) (unknown) Referrals: (units unknown) (unknown) (unknown) (no date) (unknown) (unknown) Related Data (units unknown) (unknown) (unknown) (no date) (unknown) (unknown) Respiratory Panel (Film Array) Stat (units unknown) (unknown) (unknown) (no date) (unknown) (unknown) Respiratory Rate 24 (units unknown) (unknown) (unknown) (no date) (unknown) (unknown) Respiratory Rate 26 H (units unknown) (unknown) (unknown) (no date) (unknown) (unknown) Respiratory Rate 27 H (units unknown) (unknown) (unknown) (no date) (unknown) (unknown) Respiratory Rate 28 H 28 H (units unknown) (unknown) (unknown) (no date) (unknown) (unknown) Respiratory Rate 28 H 29 H (units unknown) (unknown) (unknown) (no date) (unknown) (unknown) Respiratory Rate 28 H (units unknown) (unknown) (unknown) (no date) (unknown) (unknown) Respiratory Rate 29 H 33 H (units unknown) (unknown) (unknown) (no date) (unknown) (unknown) Respiratory Rate 29 H (units unknown) (unknown) (unknown) (no date) (unknown) (unknown) Respiratory Rate 33 H 35 H (units unknown) (unknown) (unknown) (no date) (unknown) (unknown) Respiratory Rate 35 H 29 H (units unknown) (unknown) (unknown) (no date) (unknown) (unknown) Respiratory Rate 35 H 33 H (units unknown) (unknown) (unknown) (no date) (unknown) (unknown) Respiratory Rate 36 H (units unknown) (unknown) (unknown) (no date) (unknown) (unknown) Review of Systems (units unknown) (unknown) (unknown) (no date) (unknown) (unknown) SKIN: Denies rash, skin lesions, or other (units unknown) (unknown) (unknown) (no date) (unknown) (unknown) SKIN: No rash or erythema of visible areas (units unknown) (unknown) (unknown) (no date) (unknown) (unknown) She is had no recent travel, change in medications, doses or diet. (units unknown) (unknown) (unknown) (no date) (unknown) (unknown) Signed By: (units unknown) (unknown) (unknown) (no date) (unknown) (unknown) Smoking Status: Current every day smoker (units unknown) (unknown) (unknown) (no date) (unknown) (unknown) Social History (units unknown) (unknown) (unknown) (no date) (unknown) (unknown) Sodium (137-145) mmol/L (units unknown) (unknown) (unknown) (no date) (unknown) (unknown) Sodium 140 (137-145) mmol/L (units unknown) (unknown) (unknown) (no date) (unknown) (unknown) Stated complaint: SO B monday/ [place] (units unknown) (unknown) (unknown) (no date) (unknown) (unknown) Stop: 09/06/22 16:36 (units unknown) (unknown) (unknown) (no date) (unknown) (unknown) Substance Use Type: does not use (units unknown) (unknown) (unknown) (no date) (unknown) (unknown) TAKE 1 TABLET BY MOUTH EVERY 6 HOURS NEEDED FOR PAIN (units unknown) (unknown) (unknown) (no date) (unknown) (unknown) TAKE 1 TABLET BY MOUTH ONCE DAILY (units unknown) (unknown) (unknown) (no date) (unknown) (unknown) TAKE 1 TABLET BY MOUTH TWICE DAILY (units unknown) (unknown) (unknown) (no date) (unknown) (unknown) TAKE 1/2 (ONE-HALF) TABLET BY MOUTH ONCE DAILY (units unknown) (unknown) (unknown) (no date) (unknown) (unknown) Time Seen by Provider: 09/06/22 16:31 (units unknown) (unknown) (unknown) (no date) (unknown) (unknown) Total Bilirubin (0.2-1.3) mg/dL (units unknown) (unknown) (unknown) (no date) (unknown) (unknown) Total Bilirubin 0.5 (0.2-1.3) mg/dL (units unknown) (unknown) (unknown) (no date) (unknown) (unknown) Total Creatine Kinas e < 20 L (30-135) U/L (units unknown) (unknown) (unknown) (no date) (unknown) (unknown) Total Creatine Kinas e (30-135) U/L (units unknown) (unknown) (unknown) (no date) (unknown) (unknown) Total Protein (6.3-8.2) g/dL (units unknown) (unknown) (unknown) (no date) (unknown) (unknown) Total Protein 6.7 (6.3-8.2) g/dL (units unknown) (unknown) (unknown) (no date) (unknown) (unknown) Troponin + CK Cardia c Panel Stat (units unknown) (unknown) (unknown) (no date) (unknown) (unknown) Troponin I (0.01-0.034) ng/mL (units unknown) (unknown) (unknown) (no date) (unknown) (unknown) Troponin I 0.013 (0.01-0.034) ng/mL (units unknown) (unknown) (unknown) (no date) (unknown) (unknown) Urinalysis and Microscopic Stat (units unknown) (unknown) (unknown) (no date) (unknown) (unknown) Vital Signs - 8 hr (units unknown) (unknown) (unknown) (no date) (unknown) (unknown) Vital Signs (units unknown) (unknown) (unknown) (no date) (unknown) (unknown) Vital signs: (units unknown) (unknown) (unknown) (no date) (unknown) (unknown) WBC (4.5-11.0) X103/uL (units unknown) (unknown) (unknown) (no date) (unknown) (unknown) WBC 10.2 (4.5-11.0) X103/uL (units unknown) (unknown) (unknown) (no date) (unknown) (unknown) Rohini Ceron PA-C [Primary Care Provider] (units unknown) (unknown) (unknown) (no date) (unknown) (unknown) [Embedded Image Not Available] (units unknown) (unknown) (unknown) (no date) (unknown) (unknown) acetaminophen [From [facility]] Allergy Verified 07/06/21 13:33 (units unknown) (unknown) (unknown) (no date) (unknown) (unknown) activated powder inhaler (units unknown) (unknown) (unknown) (no date) (unknown) (unknown) aerosol inhaler (Ventolin HFA) Shortness Of Breath (units unknown) (unknown) (unknown) (no date) (unknown) (unknown) albuterol sulfate 90 mcg/actuation 2 puff inhalation QID PRN 07/25/22 07/25/22 (units unknown) (unknown) (unknown) (no date) (unknown) (unknown) albuterol sulfate [Ventolin HFA] 90 mcg/actuation HFA aerosol inhaler (units unknown) (unknown) (unknown) (no date) (unknown) (unknown) amiodarone 200 mg tablet 100 mg PO DAILY 07/25/22 07/25/22 (units unknown) (unknown) (unknown) (no date) (unknown) (unknown) amiodarone 200 mg tablet (units unknown) (unknown) (unknown) (no date) (unknown) (unknown) apixaban 5 mg tablet (Eliquis) 5 mg PO BID 07/25/22 07/25/22 (units unknown) (unknown) (unknown) (no date) (unknown) (unknown) bee pollen Allergy Severe Anaphylaxis Verified 07/28/22 10:43 (units unknown) (unknown) (unknown) (no date) (unknown) (unknown) budesonide 90 mcg/actuation Aerosol Powdr Breath Activated (units unknown) (unknown) (unknown) (no date) (unknown) (unknown) budesonide 90 mcg/actuation breath 2 inh inhalation BID 07/25/22 07/25/22 (units unknown) (unknown) (unknown) (no date) (unknown) (unknown) codeine Allergy Verified 07/06/21 13:34 (units unknown) (unknown) (unknown) (no date) (unknown) (unknown) constipation, melena. (units unknown) (unknown) (unknown) (no date) (unknown) (unknown) denies any runny nose, sore throat and has had a harsh wet sounding cough she (units unknown) (unknown) (unknown) (no date) (unknown) (unknown) dizziness. (units unknown) (unknown) (unknown) (no date) (unknown) (unknown) doxycycline AdvReac Vomiting Verified 07/28/22 10:43 (units unknown) (unknown) (unknown) (no date) (unknown) (unknown) erythromycin base Allergy Verified 07/06/21 13:34 (units unknown) (unknown) (unknown) (no date) (unknown) (unknown) furosemide 40 mg tablet 40 mg PO BID 07/25/22 07/25/22 (units unknown) (unknown) (unknown) (no date) (unknown) (unknown) furosemide 40 mg tablet (units unknown) (unknown) (unknown) (no date) (unknown) (unknown) glipizide 5 mg tablet, extended 5 mg PO DAILY #30 tabs 07/28/22 (units unknown) (unknown) (unknown) (no date) (unknown) (unknown) glipizide [Glucotrol XL] 5 mg tablet extended release 24hr (units unknown) (unknown) (unknown) (no date) (unknown) (unknown) her oxygen more ofte n than normal. She denies nausea, vomiting or diarrhea. (units unknown) (unknown) (unknown) (no date) (unknown) (unknown) household members: spouse (units unknown) (unknown) (unknown) (no date) (unknown) (unknown) hydrocodone 5 mg-acetaminophen 325 1 tab PO Q6H PRN Pain (Scale Score 07/25/22 (units unknown) (unknown) (unknown) (no date) (unknown) (unknown) hydrocodone-acetamin o phen 5-325 mg tablet (units unknown) (unknown) (unknown) (no date) (unknown) (unknown) icterus. No injectio n or drainage. (units unknown) (unknown) (unknown) (no date) (unknown) (unknown) iodine Allergy Rash Verified 07/27/22 13:32 (units unknown) (unknown) (unknown) (no date) (unknown) (unknown) latex Allergy Rash Verified 07/27/22 13:29 (units unknown) (unknown) (unknown) (no date) (unknown) (unknown) lisinopril 5 mg tablet 5 mg PO DAILY 07/25/22 07/25/22 (units unknown) (unknown) (unknown) (no date) (unknown) (unknown) lisinopril 5 mg tablet (units unknown) (unknown) (unknown) (no date) (unknown) (unknown) lives independently: Yes (units unknown) (unknown) (unknown) (no date) (unknown) (unknown) metoprolol succinate 100 mg 100 mg PO BID 07/25/22 07/25/22 (units unknown) (unknown) (unknown) (no date) (unknown) (unknown) metoprolol succinate 100 mg Tablet Extended Release 24 Hr (units unknown) (unknown) (unknown) (no date) (unknown) (unknown) mg tablet 4-6) (units unknown) (unknown) (unknown) (no date) (unknown) (unknown) mild distress. (units unknown) (unknown) (unknown) (no date) (unknown) (unknown) montelukast 10 mg Tablet (units unknown) (unknown) (unknown) (no date) (unknown) (unknown) montelukast 10 mg tablet 10 mg PO DAILY 07/25/22 07/25/22 (units unknown) (unknown) (unknown) (no date) (unknown) (unknown) oxycodone 5 mg Tablet (units unknown) (unknown) (unknown) (no date) (unknown) (unknown) oxycodone 5 mg table t 5 mg PO Q4HR PRN pain #20 tabs 07/28/22 (units unknown) (unknown) (unknown) (no date) (unknown) (unknown) pamabrom [From [facility] ] Allergy Verified 07/06/21 13:33 (units unknown) (unknown) (unknown) (no date) (unknown) (unknown) prednisone 20 mg Tablet (units unknown) (unknown) (unknown) (no date) (unknown) (unknown) prednisone 20 mg tablet 40 mg PO DAILY #3 tabs 07/28/22 (units unknown) (unknown) (unknown) (no date) (unknown) (unknown) prednisone 5 mg tablet 5 mg PO DAILY #3 tabs 07/28/22 (units unknown) (unknown) (unknown) (no date) (unknown) (unknown) prednisone 5 mg tablet (units unknown) (unknown) (unknown) (no date) (unknown) (unknown) presents by EMS with worsening shortness of breath over the past 3-4 days. She (units unknown) (unknown) (unknown) (no date) (unknown) (unknown) release 24 hr (Glucotrol XL) (units unknown) (unknown) (unknown) (no date) (unknown) (unknown) seizures, incoordination. (units unknown) (unknown) (unknown) (no date) (unknown) (unknown) shellfish derived Allergy Severe Anaphylaxis Verified 07/28/22 10:43 (units unknown) (unknown) (unknown) (no date) (unknown) (unknown) short of breath with exertion and lying flat and admits that she is been using (units unknown) (unknown) (unknown) (no date) (unknown) (unknown) spironolactone 25 mg tablet 25 mg PO DAILY 07/25/22 07/25/22 (units unknown) (unknown) (unknown) (no date) (unknown) (unknown) spironolactone 25 mg tablet (units unknown) (unknown) (unknown) (no date) (unknown) (unknown) states for many year s and it is no different than normal. She becomes more (units unknown) (unknown) (unknown) (no date) (unknown) (unknown) tablet,extended release 24 hr (units unknown) (unknown) (unknown) (no date) (unknown) (unknown) throughout, perhaps faint crackles in bilateral bases (units unknown) (unknown) (unknown) (no date) (unknown) (unknown) tonsillar hypertroph y or exudate. Airway patent. (units unknown) (unknown) Result panel 680 (unknown) (no date) (unknown) (unknown) (no value) (units unknown) (unknown) (unknown) (no date) (unknown) (unknown) 07/25/22 (units unknown) (unknown) (unknown) (no date) (unknown) (unknown) 09/06/22 09/06/22 09/06/22 Range/Units (units unknown) (unknown) (unknown) (no date) (unknown) (unknown) 09/06/22 09/06/22 Range/Units (units unknown) (unknown) (unknown) (no date) (unknown) (unknown) 09/06/22 16:35 (units unknown) (unknown) (unknown) (no date) (unknown) (unknown) 09/06/22 16:36 (units unknown) (unknown) (unknown) (no date) (unknown) (unknown) 09/06/22 17:10 (units unknown) (unknown) (unknown) (no date) (unknown) (unknown) 09/06/22 17:16 (units unknown) (unknown) (unknown) (no date) (unknown) (unknown) 09/06/22 17:30 (units unknown) (unknown) (unknown) (no date) (unknown) (unknown) 09/06/22 (units unknown) (unknown) (unknown) (no date) (unknown) (unknown) 1 tab PO Q6H PRN (Reason: Pain (Scale Score 4-6)) (units unknown) (unknown) (unknown) (no date) (unknown) (unknown) 10 mg PO DAILY (units unknown) (unknown) (unknown) (no date) (unknown) (unknown) 100 mg PO BID (units unknown) (unknown) (unknown) (no date) (unknown) (unknown) 100 mg PO DAILY (units unknown) (unknown) (unknown) (no date) (unknown) (unknown) 12 point review of systems is negative except for those stated above (units unknown) (unknown) (unknown) (no date) (unknown) (unknown) 16:39 09/06/22 (units unknown) (unknown) (unknown) (no date) (unknown) (unknown) 16:42 09/06/22 (units unknown) (unknown) (unknown) (no date) (unknown) (unknown) 16:42 (units unknown) (unknown) (unknown) (no date) (unknown) (unknown) 16:45 09/06/22 (units unknown) (unknown) (unknown) (no date) (unknown) (unknown) 16:45 (units unknown) (unknown) (unknown) (no date) (unknown) (unknown) 16:50 09/06/22 (units unknown) (unknown) (unknown) (no date) (unknown) (unknown) 17:00 09/06/22 (units unknown) (unknown) (unknown) (no date) (unknown) (unknown) 17:01 09/06/22 (units unknown) (unknown) (unknown) (no date) (unknown) (unknown) 17:01 (units unknown) (unknown) (unknown) (no date) (unknown) (unknown) 17:06 09/06/22 (units unknown) (unknown) (unknown) (no date) (unknown) (unknown) 17:10 09/06/22 (units unknown) (unknown) (unknown) (no date) (unknown) (unknown) 17:10 17:16 17:16 (units unknown) (unknown) (unknown) (no date) (unknown) (unknown) 17:10 (units unknown) (unknown) (unknown) (no date) (unknown) (unknown) 17:15 09/06/22 (units unknown) (unknown) (unknown) (no date) (unknown) (unknown) 17:15 (units unknown) (unknown) (unknown) (no date) (unknown) (unknown) 17:16 17:16 (units unknown) (unknown) (unknown) (no date) (unknown) (unknown) 17:21 09/06/22 (units unknown) (unknown) (unknown) (no date) (unknown) (unknown) 17:26 09/06/22 (units unknown) (unknown) (unknown) (no date) (unknown) (unknown) 17:26 (units unknown) (unknown) (unknown) (no date) (unknown) (unknown) 17:30 09/06/22 (units unknown) (unknown) (unknown) (no date) (unknown) (unknown) 17:30 (units unknown) (unknown) (unknown) (no date) (unknown) (unknown) 17:36 09/06/22 (units unknown) (unknown) (unknown) (no date) (unknown) (unknown) 17:38 09/06/22 (units unknown) (unknown) (unknown) (no date) (unknown) (unknown) 17:38 (units unknown) (unknown) (unknown) (no date) (unknown) (unknown) 17:40 09/06/22 (units unknown) (unknown) (unknown) (no date) (unknown) (unknown) 17:40 (units unknown) (unknown) (unknown) (no date) (unknown) (unknown) 17:42 09/06/22 (units unknown) (unknown) (unknown) (no date) (unknown) (unknown) 17:45 (units unknown) (unknown) (unknown) (no date) (unknown) (unknown) 17:46 09/06/22 (units unknown) (unknown) (unknown) (no date) (unknown) (unknown) 17:48 (units unknown) (unknown) (unknown) (no date) (unknown) (unknown) [id number] (units unknown) (unknown) (unknown) (no date) (unknown) (unknown) 2 inh INHALATION BID (units unknown) (unknown) (unknown) (no date) (unknown) (unknown) 2 puff INHALATION QI D PRN (Reason: Shortness Of Breath) (units unknown) (unknown) (unknown) (no date) (unknown) (unknown) 25 mg PO DAILY (units unknown) (unknown) (unknown) (no date) (unknown) (unknown) 40 mg PO BID (units unknown) (unknown) (unknown) (no date) (unknown) (unknown) 40 mg PO DAILY Qty: 3 0RF (units unknown) (unknown) (unknown) (no date) (unknown) (unknown) 5 mg PO BID (units unknown) (unknown) (unknown) (no date) (unknown) (unknown) 5 mg PO DAILY Qty: 3 0RF (units unknown) (unknown) (unknown) (no date) (unknown) (unknown) 5 mg PO DAILY Qty: 3 0 3RF (units unknown) (unknown) (unknown) (no date) (unknown) (unknown) 5 mg PO DAILY (units unknown) (unknown) (unknown) (no date) (unknown) (unknown) 5 mg PO Q4HR PRN (Reason: pain) Qty: 20 0RF (units unknown) (unknown) (unknown) (no date) (unknown) (unknown) 57-year-old female daily smoker with history of COPD on home oxygen at 3 L (units unknown) (unknown) (unknown) (no date) (unknown) (unknown) ABG Base Excess (-2-3) mmol/L (units unknown) (unknown) (unknown) (no date) (unknown) (unknown) ABG Base Excess 6.0 H (-2-3) mmol/L (units unknown) (unknown) (unknown) (no date) (unknown) (unknown) ABG HCO3 (23-27) mmol/L (units unknown) (unknown) (unknown) (no date) (unknown) (unknown) ABG HCO3 31 H (23-27 ) mmol/L (units unknown) (unknown) (unknown) (no date) (unknown) (unknown) ABG O2 Saturation (95-100) % (units unknown) (unknown) (unknown) (no date) (unknown) (unknown) ABG O2 Saturation 94 L (95-100) % (units unknown) (unknown) (unknown) (no date) (unknown) (unknown) ABG Total CO2 (23-27 ) mmol/L (units unknown) (unknown) (unknown) (no date) (unknown) (unknown) ABG Total CO2 32 H (23-27) mmol/L (units unknown) (unknown) (unknown) (no date) (unknown) (unknown) ABG pCO2 (35-45) mmHg (units unknown) (unknown) (unknown) (no date) (unknown) (unknown) ABG pCO2 46.9 H (35-45) mmHg (units unknown) (unknown) (unknown) (no date) (unknown) (unknown) ABG pH (7.35-7.45) (units unknown) (unknown) (unknown) (no date) (unknown) (unknown) ABG pH 7.42 (7.35-7.45) (units unknown) (unknown) (unknown) (no date) (unknown) (unknown) ABG pO2 (80-100) mmHg (units unknown) (unknown) (unknown) (no date) (unknown) (unknown) ABG pO2 70 L (80-100 ) mmHg (units unknown) (unknown) (unknown) (no date) (unknown) (unknown) ALT (<35) IU/L (units unknown) (unknown) (unknown) (no date) (unknown) (unknown) ALT 19 (<35) IU/L (units unknown) (unknown) (unknown) (no date) (unknown) (unknown) APTT (26-36) SECONDS (units unknown) (unknown) (unknown) (no date) (unknown) (unknown) APTT 23 L (26-36) SECONDS (units unknown) (unknown) (unknown) (no date) (unknown) (unknown) AST (14-36) IU/L (units unknown) (unknown) (unknown) (no date) (unknown) (unknown) AST 20 (14-36) IU/L (units unknown) (unknown) (unknown) (no date) (unknown) (unknown) Age/Sex: 57 / F (units unknown) (unknown) (unknown) (no date) (unknown) (unknown) Albumin (3.5-5.0) g/dL (units unknown) (unknown) (unknown) (no date) (unknown) (unknown) Albumin 3.8 (3.5-5.0 ) g/dL (units unknown) (unknown) (unknown) (no date) (unknown) (unknown) Albumin/Globulin Ratio (1.0-2.8) (units unknown) (unknown) (unknown) (no date) (unknown) (unknown) Albumin/Globulin Ratio 1.3 (1.0-2.8) (units unknown) (unknown) (unknown) (no date) (unknown) (unknown) Alkaline Phosphatase (38-126) U/L (units unknown) (unknown) (unknown) (no date) (unknown) (unknown) Alkaline Phosphatase 81 (38-126) U/L (units unknown) (unknown) (unknown) (no date) (unknown) (unknown) Allergies (units unknown) (unknown) (unknown) (no date) (unknown) (unknown) Allergy/AdvReac Type Severity Reaction Status Date / Time (units unknown) (unknown) (unknown) (no date) (unknown) (unknown) Arterial Blood Gas Stat (units unknown) (unknown) (unknown) (no date) (unknown) (unknown) BACK: Nontender without deformity or crepitance. No flank tenderness. (units unknown) (unknown) (unknown) (no date) (unknown) (unknown) BUN (7-17) mg/dL (units unknown) (unknown) (unknown) (no date) (unknown) (unknown) BUN 26 H (7-17) mg/dL (units unknown) (unknown) (unknown) (no date) (unknown) (unknown) BUN/Creatinine Ratio (6-22) (units unknown) (unknown) (unknown) (no date) (unknown) (unknown) BUN/Creatinine Ratio 20.2 (6-22) (units unknown) (unknown) (unknown) (no date) (unknown) (unknown) Baso # (Auto) (0-100 ) /uL (units unknown) (unknown) (unknown) (no date) (unknown) (unknown) Baso # (Auto) 100 (0-100) /uL (units unknown) (unknown) (unknown) (no date) (unknown) (unknown) Baso % (Auto) (0-2) % (units unknown) (unknown) (unknown) (no date) (unknown) (unknown) Baso % (Auto) 1.0 (0-2) % (units unknown) (unknown) (unknown) (no date) (unknown) (unknown) Blood Pressure 100/4 9 L 104/52 L (units unknown) (unknown) (unknown) (no date) (unknown) (unknown) Blood Pressure 102/7 1 150/71 H (units unknown) (unknown) (unknown) (no date) (unknown) (unknown) Blood Pressure 104/4 8 L (units unknown) (unknown) (unknown) (no date) (unknown) (unknown) Blood Pressure 110/5 3 L 96/54 L (units unknown) (unknown) (unknown) (no date) (unknown) (unknown) Blood Pressure 112/5 4 L (units unknown) (unknown) (unknown) (no date) (unknown) (unknown) Blood Pressure 115/5 8 L (units unknown) (unknown) (unknown) (no date) (unknown) (unknown) Blood Pressure 72/43 L (units unknown) (unknown) (unknown) (no date) (unknown) (unknown) Blood Pressure 76/42 L 93/54 L (units unknown) (unknown) (unknown) (no date) (unknown) (unknown) Blood Pressure 83/51 L 71/46 L (units unknown) (unknown) (unknown) (no date) (unknown) (unknown) Blood Pressure 93/54 L (units unknown) (unknown) (unknown) (no date) (unknown) (unknown) Blood Pressure (units unknown) (unknown) (unknown) (no date) (unknown) (unknown) CARDIOVASCULAR: Irregular rhythm (units unknown) (unknown) (unknown) (no date) (unknown) (unknown) CARDIOVASCULAR: see HPI (units unknown) (unknown) (unknown) (no date) (unknown) (unknown) CK-MB (CK-2) Rel Index TNP (units unknown) (unknown) (unknown) (no date) (unknown) (unknown) CK-MB (CK-2) Rel Index (units unknown) (unknown) (unknown) (no date) (unknown) (unknown) CK-MB (CK-2) TNP (units unknown) (unknown) (unknown) (no date) (unknown) (unknown) CK-MB (CK-2) (units unknown) (unknown) (unknown) (no date) (unknown) (unknown) COPD (chronic obstructive pulmonary disease) (units unknown) (unknown) (unknown) (no date) (unknown) (unknown) Calcium (8.4-10.2) mg/dL (units unknown) (unknown) (unknown) (no date) (unknown) (unknown) Calcium 9.0 (8.4-10.2) mg/dL (units unknown) (unknown) (unknown) (no date) (unknown) (unknown) Carbon Dioxide (22-32) mmol/L (units unknown) (unknown) (unknown) (no date) (unknown) (unknown) Carbon Dioxide 35 H (22-32) mmol/L (units unknown) (unknown) (unknown) (no date) (unknown) (unknown) Chest [XR chest 1V] Stat (units unknown) (unknown) (unknown) (no date) (unknown) (unknown) Chief complaint: Shortness of Breath/Dyspnea (units unknown) (unknown) (unknown) (no date) (unknown) (unknown) Chloride (98-107) mmol/L (units unknown) (unknown) (unknown) (no date) (unknown) (unknown) Chloride 100 (98-107 ) mmol/L (units unknown) (unknown) (unknown) (no date) (unknown) (unknown) Complete Blood Count AUTO DIFF Stat (units unknown) (unknown) (unknown) (no date) (unknown) (unknown) Comprehensive Metabolic Panel Stat (units unknown) (unknown) (unknown) (no date) (unknown) (unknown) Course (units unknown) (unknown) (unknown) (no date) (unknown) (unknown) Creatinine (0.52-1.04) mg/dL (units unknown) (unknown) (unknown) (no date) (unknown) (unknown) Creatinine 1.29 H (0.52-1.04) mg/dL (units unknown) (unknown) (unknown) (no date) (unknown) (unknown) : 1965 Acct:[id number] (units unknown) (unknown) (unknown) (no date) (unknown) (unknown) Date of Service: 09/06/22 (units unknown) (unknown) (unknown) (no date) (unknown) (unknown) Departure (units unknown) (unknown) (unknown) (no date) (unknown) (unknown) Discharge Plan (units unknown) (unknown) (unknown) (no date) (unknown) (unknown) Discontinued Medications (units unknown) (unknown) (unknown) (no date) (unknown) (unknown) ED Orders (units unknown) (unknown) (unknown) (no date) (unknown) (unknown) EKG-12 Lead Stat (units unknown) (unknown) (unknown) (no date) (unknown) (unknown) ENT: Nose without bleeding, purulent drainage. Throat without erythema, (units unknown) (unknown) (unknown) (no date) (unknown) (unknown) ER Physician: Aristeo Xiong D.O. (units unknown) (unknown) (unknown) (no date) (unknown) (unknown) EXTREMITIES: No valdo a or joint tenderness. (units unknown) (unknown) (unknown) (no date) (unknown) (unknown) EYES: Pupils equal round and reactive. Extraocular motions intact. No scleral (units unknown) (unknown) (unknown) (no date) (unknown) (unknown) Eliquis 5 mg tablet (units unknown) (unknown) (unknown) (no date) (unknown) (unknown) Emergency Report (units unknown) (unknown) (unknown) (no date) (unknown) (unknown) Eos # (Auto) (0-450) /uL (units unknown) (unknown) (unknown) (no date) (unknown) (unknown) Eos # (Auto) 100 (0-450) /uL (units unknown) (unknown) (unknown) (no date) (unknown) (unknown) Eos % (Auto) (2-4) % (units unknown) (unknown) (unknown) (no date) (unknown) (unknown) Eos % (Auto) 1.1 L (2-4) % (units unknown) (unknown) (unknown) (no date) (unknown) (unknown) Estimated GFR (>60) mL/min (units unknown) (unknown) (unknown) (no date) (unknown) (unknown) Estimated GFR 48 L (>60) mL/min (units unknown) (unknown) (unknown) (no date) (unknown) (unknown) Exam Narrative: (units unknown) (unknown) (unknown) (no date) (unknown) (unknown) Exam (units unknown) (unknown) (unknown) (no date) (unknown) (unknown) FiO2 32 (units unknown) (unknown) (unknown) (no date) (unknown) (unknown) FiO2 (units unknown) (unknown) (unknown) (no date) (unknown) (unknown) Fish Containing Products Allergy Severe Anaphylaxis Verified 07/27/22 13:29 (units unknown) (unknown) (unknown) (no date) (unknown) (unknown) GASTROINTESTINAL: Abdomen soft, non-tender, nondistended. (units unknown) (unknown) (unknown) (no date) (unknown) (unknown) GASTROINTESTINAL: Denies nausea, vomiting, abdominal pain, diarrhea, (units unknown) (unknown) (unknown) (no date) (unknown) (unknown) GENERAL: [57] year old patient appears stated age. Well-developed patient, in (units unknown) (unknown) (unknown) (no date) (unknown) (unknown) GENERAL: see HPI. (units unknown) (unknown) (unknown) (no date) (unknown) (unknown) : Denies dysuria, frequency, incontinence, hematuria, urinary retention. (units unknown) (unknown) (unknown) (no date) (unknown) (unknown) General (units unknown) (unknown) (unknown) (no date) (unknown) (unknown) Globulin (1.7-4.1) g/dL (units unknown) (unknown) (unknown) (no date) (unknown) (unknown) Globulin 2.9 (1.7-4.1) g/dL (units unknown) (unknown) (unknown) (no date) (unknown) (unknown) Glucose (70-100) mg/dL (units unknown) (unknown) (unknown) (no date) (unknown) (unknown) Glucose 89 (70-100) mg/dL (units unknown) (unknown) (unknown) (no date) (unknown) (unknown) HEAD: Atraumatic. Normocephalic. (units unknown) (unknown) (unknown) (no date) (unknown) (unknown) HEENT: Denies sinus pain, ear pain, sore throat, difficulty swallowing, (units unknown) (unknown) (unknown) (no date) (unknown) (unknown) HPI - General Adult (units unknown) (unknown) (unknown) (no date) (unknown) (unknown) HPI narrative: (units unknown) (unknown) (unknown) (no date) (unknown) (unknown) Hct (36-46) % (units unknown) (unknown) (unknown) (no date) (unknown) (unknown) Hct 42.1 (36-46) % (units unknown) (unknown) (unknown) (no date) (unknown) (unknown) Hgb (12.0-16.0) g/dL (units unknown) (unknown) (unknown) (no date) (unknown) (unknown) Hgb 14.5 (12.0-16.0) g/dL (units unknown) (unknown) (unknown) (no date) (unknown) (unknown) History of Present Illness (units unknown) (unknown) (unknown) (no date) (unknown) (unknown) Home Medications (units unknown) (unknown) (unknown) (no date) (unknown) (unknown) INHALE 2 PUFFS BY MOUTH 4 TIMES DAILY NEEDED (units unknown) (unknown) (unknown) (no date) (unknown) (unknown) INR (0.9-1.3) (units unknown) (unknown) (unknown) (no date) (unknown) (unknown) INR 1.3 (0.9-1.3) (units unknown) (unknown) (unknown) (no date) (unknown) (unknown) Initial Vital Signs (units unknown) (unknown) (unknown) (no date) (unknown) (unknown) Initial Vital Signs: (units unknown) (unknown) (unknown) (no date) (unknown) (unknown) [address] [address] (units unknown) (unknown) (unknown) (no date) (unknown) (unknown) Lab Data (units unknown) (unknown) (unknown) (no date) (unknown) (unknown) Lab Results (units unknown) (unknown) (unknown) (no date) (unknown) (unknown) Labs: (units unknown) (unknown) (unknown) (no date) (unknown) (unknown) Lactate (0.7-2.1) mmol/L (units unknown) (unknown) (unknown) (no date) (unknown) (unknown) Lactate (Lactic Acid ) Stat (units unknown) (unknown) (unknown) (no date) (unknown) (unknown) Lactate 1.0 (0.7-2.1 ) mmol/L (units unknown) (unknown) (unknown) (no date) (unknown) (unknown) Lipase (23-300) U/L (units unknown) (unknown) (unknown) (no date) (unknown) (unknown) Lipase 80 (23-300) U/L (units unknown) (unknown) (unknown) (no date) (unknown) (unknown) Lipase Stat (units unknown) (unknown) (unknown) (no date) (unknown) (unknown) Lymph # (Auto) (2498-5726) /uL (units unknown) (unknown) (unknown) (no date) (unknown) (unknown) Lymph # (Auto) 2700 (6807-5864) /uL (units unknown) (unknown) (unknown) (no date) (unknown) (unknown) Lymph % (Auto) (25-40) % (units unknown) (unknown) (unknown) (no date) (unknown) (unknown) Lymph % (Auto) 26.3 (25-40) % (units unknown) (unknown) (unknown) (no date) (unknown) (unknown) MCH (26-34) PG (units unknown) (unknown) (unknown) (no date) (unknown) (unknown) MCH 32.5 (26-34) PG (units unknown) (unknown) (unknown) (no date) (unknown) (unknown) MCHC (30-36) % (units unknown) (unknown) (unknown) (no date) (unknown) (unknown) MCHC 34.6 (30-36) % (units unknown) (unknown) (unknown) (no date) (unknown) (unknown) MCV (80-100) fL (units unknown) (unknown) (unknown) (no date) (unknown) (unknown) MCV 93.9 (80-100) fL (units unknown) (unknown) (unknown) (no date) (unknown) (unknown) MUSCULOSKELETAL: denies weakness, joint pain, or bony pain (units unknown) (unknown) (unknown) (no date) (unknown) (unknown) Magnesium (1.6-2.3) mg/dL (units unknown) (unknown) (unknown) (no date) (unknown) (unknown) Magnesium 1.9 (1.6-2.3) mg/dL (units unknown) (unknown) (unknown) (no date) (unknown) (unknown) Magnesium Stat (units unknown) (unknown) (unknown) (no date) (unknown) (unknown) Medical Decision Making (units unknown) (unknown) (unknown) (no date) (unknown) (unknown) Medical History (units unknown) (unknown) (unknown) (no date) (unknown) (unknown) Medication Instructions Recorded Confirmed (units unknown) (unknown) (unknown) (no date) (unknown) (unknown) Medication Instructions Recorded (units unknown) (unknown) (unknown) (no date) (unknown) (unknown) Methylprednisolone (Methylprednisolone 125 Mg/2 Ml Vial) 125 mg IV NOW ONE (units unknown) (unknown) (unknown) (no date) (unknown) (unknown) [place] # (Auto) (0-900 ) /uL (units unknown) (unknown) (unknown) (no date) (unknown) (unknown) [place] # (Auto) 1000 H (0-900) /uL (units unknown) (unknown) (unknown) (no date) (unknown) (unknown) [place] % (Auto) (3-14) % (units unknown) (unknown) (unknown) (no date) (unknown) (unknown) [place] % (Auto) 9.6 (3-14) % (units unknown) (unknown) (unknown) (no date) (unknown) (unknown) NECK: Trachea midline. Non tender (units unknown) (unknown) (unknown) (no date) (unknown) (unknown) NEURO: AOx3. (units unknown) (unknown) (unknown) (no date) (unknown) (unknown) NEUROLOGIC: Denies weakness, headache, numbness, change in speech, confusion, (units unknown) (unknown) (unknown) (no date) (unknown) (unknown) NT-Pro-B Natriuret Pep (<125) pg/mL (units unknown) (unknown) (unknown) (no date) (unknown) (unknown) NT-Pro-B Natriuret Pep 1250 H (<125) pg/mL (units unknown) (unknown) (unknown) (no date) (unknown) (unknown) NT-proBNP (BNP-Adult 18+) Stat (units unknown) (unknown) (unknown) (no date) (unknown) (unknown) Narrative (units unknown) (unknown) (unknown) (no date) (unknown) (unknown) Narrative: (units unknown) (unknown) (unknown) (no date) (unknown) (unknown) Neut # (Auto) (4082-0453) /uL (units unknown) (unknown) (unknown) (no date) (unknown) (unknown) Neut # (Auto) 6300 (4199-6404) /uL (units unknown) (unknown) (unknown) (no date) (unknown) (unknown) Neut % (Auto) (50-75 ) % (units unknown) (unknown) (unknown) (no date) (unknown) (unknown) Neut % (Auto) 62.0 (50-75) % (units unknown) (unknown) (unknown) (no date) (unknown) (unknown) No Action (units unknown) (unknown) (unknown) (no date) (unknown) (unknown) Ordered: (units unknown) (unknown) (unknown) (no date) (unknown) (unknown) Orders (units unknown) (unknown) (unknown) (no date) (unknown) (unknown) Oxygen Delivery Method Nasal Cannula (units unknown) (unknown) (unknown) (no date) (unknown) (unknown) Oxygen Delivery Method (units unknown) (unknown) (unknown) (no date) (unknown) (unknown) Oxygen Flow Rate 3 (units unknown) (unknown) (unknown) (no date) (unknown) (unknown) Oxygen Flow Rate (units unknown) (unknown) (unknown) (no date) (unknown) (unknown) PSYCHIATRIC: No concerning psychosocial issues. (units unknown) (unknown) (unknown) (no date) (unknown) (unknown) PT (10.1-12.7) SECONDS (units unknown) (unknown) (unknown) (no date) (unknown) (unknown) PT 15.5 H (10.1-12.7 ) SECONDS (units unknown) (unknown) (unknown) (no date) (unknown) (unknown) PTT Partial Thromboplastin Efrem Stat (units unknown) (unknown) (unknown) (no date) (unknown) (unknown) Patient Comments: (units unknown) (unknown) (unknown) (no date) (unknown) (unknown) Patient History (units unknown) (unknown) (unknown) (no date) (unknown) (unknown) Patient: Ester Benavides MR#: [id number] (units unknown) (unknown) (unknown) (no date) (unknown) (unknown) Plt Count (150-400) X103/uL (units unknown) (unknown) (unknown) (no date) (unknown) (unknown) Plt Count 232 (150-400) X103/uL (units unknown) (unknown) (unknown) (no date) (unknown) (unknown) Potassium (3.4-5.1) mmol/L (units unknown) (unknown) (unknown) (no date) (unknown) (unknown) Potassium 3.4 (3.4-5.1) mmol/L (units unknown) (unknown) (unknown) (no date) (unknown) (unknown) Prescriptions: (units unknown) (unknown) (unknown) (no date) (unknown) (unknown) Previous Rx's (units unknown) (unknown) (unknown) (no date) (unknown) (unknown) Procalcitonin (<0.5) ng/mL (units unknown) (unknown) (unknown) (no date) (unknown) (unknown) Procalcitonin 0.06 (<0.5) ng/mL (units unknown) (unknown) (unknown) (no date) (unknown) (unknown) Procalcitonin Stat (units unknown) (unknown) (unknown) (no date) (unknown) (unknown) Prothrombin Time INR Stat (units unknown) (unknown) (unknown) (no date) (unknown) (unknown) Pulse Oximetry 100 (units unknown) (unknown) (unknown) (no date) (unknown) (unknown) Pulse Oximetry 82 L (units unknown) (unknown) (unknown) (no date) (unknown) (unknown) Pulse Oximetry 93 94 (units unknown) (unknown) (unknown) (no date) (unknown) (unknown) Pulse Oximetry 93 96 (units unknown) (unknown) (unknown) (no date) (unknown) (unknown) Pulse Oximetry 96 (units unknown) (unknown) (unknown) (no date) (unknown) (unknown) Pulse Oximetry 97 96 (units unknown) (unknown) (unknown) (no date) (unknown) (unknown) Pulse Oximetry 97 97 (units unknown) (unknown) (unknown) (no date) (unknown) (unknown) Pulse Oximetry 98 09/06/22 16:39 (units unknown) (unknown) (unknown) (no date) (unknown) (unknown) Pulse Oximetry 98 98 (units unknown) (unknown) (unknown) (no date) (unknown) (unknown) Pulse Oximetry 99 98 98 (units unknown) (unknown) (unknown) (no date) (unknown) (unknown) Pulse Rate 44 L 09/06/22 16:39 (units unknown) (unknown) (unknown) (no date) (unknown) (unknown) Pulse Rate 80 44 L 80 (units unknown) (unknown) (unknown) (no date) (unknown) (unknown) Pulse Rate 80 (units unknown) (unknown) (unknown) (no date) (unknown) (unknown) Pulse Rate 81 78 (units unknown) (unknown) (unknown) (no date) (unknown) (unknown) Pulse Rate 81 80 (units unknown) (unknown) (unknown) (no date) (unknown) (unknown) Pulse Rate 82 82 (units unknown) (unknown) (unknown) (no date) (unknown) (unknown) Pulse Rate 83 80 (units unknown) (unknown) (unknown) (no date) (unknown) (unknown) Pulse Rate 84 (units unknown) (unknown) (unknown) (no date) (unknown) (unknown) Pulse Rate 86 (units unknown) (unknown) (unknown) (no date) (unknown) (unknown) Pulse Rate 93 H 82 (units unknown) (unknown) (unknown) (no date) (unknown) (unknown) Pulse Rate 94 H (units unknown) (unknown) (unknown) (no date) (unknown) (unknown) Pulse Rate 96 H (units unknown) (unknown) (unknown) (no date) (unknown) (unknown) RBC (4.0-5.2) X106/uL (units unknown) (unknown) (unknown) (no date) (unknown) (unknown) RBC 4.48 (4.0-5.2) X106/uL (units unknown) (unknown) (unknown) (no date) (unknown) (unknown) RDW (11.6-14.8) % (units unknown) (unknown) (unknown) (no date) (unknown) (unknown) RDW 14.8 (11.6-14.8) % (units unknown) (unknown) (unknown) (no date) (unknown) (unknown) RESPIRATORY: prolonged expiratory phase with decreased breath sounds (units unknown) (unknown) (unknown) (no date) (unknown) (unknown) RESPIRATORY: see HPI (units unknown) (unknown) (unknown) (no date) (unknown) (unknown) Referrals: (units unknown) (unknown) (unknown) (no date) (unknown) (unknown) Related Data (units unknown) (unknown) (unknown) (no date) (unknown) (unknown) Respiratory Panel (Film Array) Stat (units unknown) (unknown) (unknown) (no date) (unknown) (unknown) Respiratory Rate 24 (units unknown) (unknown) (unknown) (no date) (unknown) (unknown) Respiratory Rate 26 H (units unknown) (unknown) (unknown) (no date) (unknown) (unknown) Respiratory Rate 27 H (units unknown) (unknown) (unknown) (no date) (unknown) (unknown) Respiratory Rate 28 H 28 H (units unknown) (unknown) (unknown) (no date) (unknown) (unknown) Respiratory Rate 28 H 29 H (units unknown) (unknown) (unknown) (no date) (unknown) (unknown) Respiratory Rate 28 H (units unknown) (unknown) (unknown) (no date) (unknown) (unknown) Respiratory Rate 29 H 33 H (units unknown) (unknown) (unknown) (no date) (unknown) (unknown) Respiratory Rate 29 H (units unknown) (unknown) (unknown) (no date) (unknown) (unknown) Respiratory Rate 33 H 35 H (units unknown) (unknown) (unknown) (no date) (unknown) (unknown) Respiratory Rate 35 H 29 H (units unknown) (unknown) (unknown) (no date) (unknown) (unknown) Respiratory Rate 35 H 33 H (units unknown) (unknown) (unknown) (no date) (unknown) (unknown) Respiratory Rate 36 H (units unknown) (unknown) (unknown) (no date) (unknown) (unknown) Review of Systems (units unknown) (unknown) (unknown) (no date) (unknown) (unknown) SKIN: Denies rash, skin lesions, or other (units unknown) (unknown) (unknown) (no date) (unknown) (unknown) SKIN: No rash or erythema of visible areas (units unknown) (unknown) (unknown) (no date) (unknown) (unknown) She is had no recent travel, change in medications, doses or diet. (units unknown) (unknown) (unknown) (no date) (unknown) (unknown) Signed By: (units unknown) (unknown) (unknown) (no date) (unknown) (unknown) Smoking Status: Current every day smoker (units unknown) (unknown) (unknown) (no date) (unknown) (unknown) Social History (units unknown) (unknown) (unknown) (no date) (unknown) (unknown) Sodium (137-145) mmol/L (units unknown) (unknown) (unknown) (no date) (unknown) (unknown) Sodium 140 (137-145) mmol/L (units unknown) (unknown) (unknown) (no date) (unknown) (unknown) Stated complaint: SO B monday/ [place] (units unknown) (unknown) (unknown) (no date) (unknown) (unknown) Stop: 09/06/22 16:36 (units unknown) (unknown) (unknown) (no date) (unknown) (unknown) Substance Use Type: does not use (units unknown) (unknown) (unknown) (no date) (unknown) (unknown) TAKE 1 TABLET BY MOUTH EVERY 6 HOURS NEEDED FOR PAIN (units unknown) (unknown) (unknown) (no date) (unknown) (unknown) TAKE 1 TABLET BY MOUTH ONCE DAILY (units unknown) (unknown) (unknown) (no date) (unknown) (unknown) TAKE 1 TABLET BY MOUTH TWICE DAILY (units unknown) (unknown) (unknown) (no date) (unknown) (unknown) TAKE 1/2 (ONE-HALF) TABLET BY MOUTH ONCE DAILY (units unknown) (unknown) (unknown) (no date) (unknown) (unknown) Time Seen by Provider: 09/06/22 16:31 (units unknown) (unknown) (unknown) (no date) (unknown) (unknown) Total Bilirubin (0.2-1.3) mg/dL (units unknown) (unknown) (unknown) (no date) (unknown) (unknown) Total Bilirubin 0.5 (0.2-1.3) mg/dL (units unknown) (unknown) (unknown) (no date) (unknown) (unknown) Total Creatine Kin[place] e < 20 L (30-135) U/L (units unknown) (unknown) (unknown) (no date) (unknown) (unknown) Total Creatine [place] e (30-135) U/L (units unknown) (unknown) (unknown) (no date) (unknown) (unknown) Total Protein (6.3-8.2) g/dL (units unknown) (unknown) (unknown) (no date) (unknown) (unknown) Total Protein 6.7 (6.3-8.2) g/dL (units unknown) (unknown) (unknown) (no date) (unknown) (unknown) Troponin + CK Cardia c Panel Stat (units unknown) (unknown) (unknown) (no date) (unknown) (unknown) Troponin I (0.01-0.034) ng/mL (units unknown) (unknown) (unknown) (no date) (unknown) (unknown) Troponin I 0.013 (0.01-0.034) ng/mL (units unknown) (unknown) (unknown) (no date) (unknown) (unknown) Urinalysis and Microscopic Stat (units unknown) (unknown) (unknown) (no date) (unknown) (unknown) Vital Signs - 8 hr (units unknown) (unknown) (unknown) (no date) (unknown) (unknown) Vital Signs (units unknown) (unknown) (unknown) (no date) (unknown) (unknown) Vital signs: (units unknown) (unknown) (unknown) (no date) (unknown) (unknown) WBC (4.5-11.0) X103/uL (units unknown) (unknown) (unknown) (no date) (unknown) (unknown) WBC 10.2 (4.5-11.0) X103/uL (units unknown) (unknown) (unknown) (no date) (unknown) (unknown) Rohini Ceron PA-C [Primary Care Provider] (units unknown) (unknown) (unknown) (no date) (unknown) (unknown) [Embedded Image Not Available] (units unknown) (unknown) (unknown) (no date) (unknown) (unknown) acetaminophen [From Midol] Allergy Verified 07/06/21 13:33 (units unknown) (unknown) (unknown) (no date) (unknown) (unknown) activated powder inhaler (units unknown) (unknown) (unknown) (no date) (unknown) (unknown) aerosol inhaler (Ventolin HFA) Shortness Of Breath (units unknown) (unknown) (unknown) (no date) (unknown) (unknown) albuterol sulfate 90 mcg/actuation 2 puff inhalation QID PRN 07/25/22 07/25/22 (units unknown) (unknown) (unknown) (no date) (unknown) (unknown) albuterol sulfate [Ventolin HFA] 90 mcg/actuation HFA aerosol inhaler (units unknown) (unknown) (unknown) (no date) (unknown) (unknown) amiodarone 200 mg tablet 100 mg PO DAILY 07/25/22 07/25/22 (units unknown) (unknown) (unknown) (no date) (unknown) (unknown) amiodarone 200 mg tablet (units unknown) (unknown) (unknown) (no date) (unknown) (unknown) apixaban 5 mg tablet (Eliquis) 5 mg PO BID 07/25/22 07/25/22 (units unknown) (unknown) (unknown) (no date) (unknown) (unknown) bee pollen Allergy Severe Anaphylaxis Verified 07/28/22 10:43 (units unknown) (unknown) (unknown) (no date) (unknown) (unknown) budesonide 90 mcg/actuation Aerosol Powdr Breath Activated (units unknown) (unknown) (unknown) (no date) (unknown) (unknown) budesonide 90 mcg/actuation breath 2 inh inhalation BID 07/25/22 07/25/22 (units unknown) (unknown) (unknown) (no date) (unknown) (unknown) codeine Allergy Verified 07/06/21 13:34 (units unknown) (unknown) (unknown) (no date) (unknown) (unknown) constipation, melena. (units unknown) (unknown) (unknown) (no date) (unknown) (unknown) denies any runny nose, sore throat and has had a harsh wet sounding cough she (units unknown) (unknown) (unknown) (no date) (unknown) (unknown) dizziness. (units unknown) (unknown) (unknown) (no date) (unknown) (unknown) doxycycline AdvReac Vomiting Verified 07/28/22 10:43 (units unknown) (unknown) (unknown) (no date) (unknown) (unknown) erythromycin base Allergy Verified 07/06/21 13:34 (units unknown) (unknown) (unknown) (no date) (unknown) (unknown) furosemide 40 mg tablet 40 mg PO BID 07/25/22 07/25/22 (units unknown) (unknown) (unknown) (no date) (unknown) (unknown) furosemide 40 mg tablet (units unknown) (unknown) (unknown) (no date) (unknown) (unknown) glipizide 5 mg tablet, extended 5 mg PO DAILY #30 tabs 07/28/22 (units unknown) (unknown) (unknown) (no date) (unknown) (unknown) glipizide [Glucotrol XL] 5 mg tablet extended release 24hr (units unknown) (unknown) (unknown) (no date) (unknown) (unknown) her oxygen more ofte n than normal. She denies nausea, vomiting or diarrhea. (units unknown) (unknown) (unknown) (no date) (unknown) (unknown) household members: spouse (units unknown) (unknown) (unknown) (no date) (unknown) (unknown) hydrocodone 5 mg-acetaminophen 325 1 tab PO Q6H PRN Pain (Scale Score 07/25/22 (units unknown) (unknown) (unknown) (no date) (unknown) (unknown) hydrocodone-acetamin o phen 5-325 mg tablet (units unknown) (unknown) (unknown) (no date) (unknown) (unknown) icterus. No injectio n or drainage. (units unknown) (unknown) (unknown) (no date) (unknown) (unknown) iodine Allergy Rash Verified 07/27/22 13:32 (units unknown) (unknown) (unknown) (no date) (unknown) (unknown) latex Allergy Rash Verified 07/27/22 13:29 (units unknown) (unknown) (unknown) (no date) (unknown) (unknown) lisinopril 5 mg tablet 5 mg PO DAILY 07/25/22 07/25/22 (units unknown) (unknown) (unknown) (no date) (unknown) (unknown) lisinopril 5 mg tablet (units unknown) (unknown) (unknown) (no date) (unknown) (unknown) lives independently: Yes (units unknown) (unknown) (unknown) (no date) (unknown) (unknown) metoprolol succinate 100 mg 100 mg PO BID 07/25/22 07/25/22 (units unknown) (unknown) (unknown) (no date) (unknown) (unknown) metoprolol succinate 100 mg Tablet Extended Release 24 Hr (units unknown) (unknown) (unknown) (no date) (unknown) (unknown) mg tablet 4-6) (units unknown) (unknown) (unknown) (no date) (unknown) (unknown) mild distress. (units unknown) (unknown) (unknown) (no date) (unknown) (unknown) montelukast 10 mg Tablet (units unknown) (unknown) (unknown) (no date) (unknown) (unknown) montelukast 10 mg tablet 10 mg PO DAILY 07/25/22 07/25/22 (units unknown) (unknown) (unknown) (no date) (unknown) (unknown) oxycodone 5 mg Tablet (units unknown) (unknown) (unknown) (no date) (unknown) (unknown) oxycodone 5 mg table t 5 mg PO Q4HR PRN pain #20 tabs 07/28/22 (units unknown) (unknown) (unknown) (no date) (unknown) (unknown) carlos aabrom [From [facility] ] Allergy Verified 07/06/21 13:33 (units unknown) (unknown) (unknown) (no date) (unknown) (unknown) prednisone 20 mg Tablet (units unknown) (unknown) (unknown) (no date) (unknown) (unknown) prednisone 20 mg tablet 40 mg PO DAILY #3 tabs 07/28/22 (units unknown) (unknown) (unknown) (no date) (unknown) (unknown) prednisone 5 mg tablet 5 mg PO DAILY #3 tabs 07/28/22 (units unknown) (unknown) (unknown) (no date) (unknown) (unknown) prednisone 5 mg tablet (units unknown) (unknown) (unknown) (no date) (unknown) (unknown) presents by EMS with worsening shortness of breath over the past 3-4 days. She (units unknown) (unknown) (unknown) (no date) (unknown) (unknown) release 24 hr (Glucotrol XL) (units unknown) (unknown) (unknown) (no date) (unknown) (unknown) seizures, incoordination. (units unknown) (unknown) (unknown) (no date) (unknown) (unknown) shellfish derived Allergy Severe Anaphylaxis Verified 07/28/22 10:43 (units unknown) (unknown) (unknown) (no date) (unknown) (unknown) short of breath with exertion and lying flat and admits that she is been using (units unknown) (unknown) (unknown) (no date) (unknown) (unknown) spironolactone 25 mg tablet 25 mg PO DAILY 07/25/22 07/25/22 (units unknown) (unknown) (unknown) (no date) (unknown) (unknown) spironolactone 25 mg tablet (units unknown) (unknown) (unknown) (no date) (unknown) (unknown) states for many year s and it is no different than normal. She becomes more (units unknown) (unknown) (unknown) (no date) (unknown) (unknown) tablet,extended release 24 hr (units unknown) (unknown) (unknown) (no date) (unknown) (unknown) throughout, perhaps faint crackles in bilateral bases (units unknown) (unknown) (unknown) (no date) (unknown) (unknown) tonsillar hypertroph y or exudate. Airway patent. (units unknown) (unknown) Result panel [id number] (unknown) (no date) (unknown) (unknown) (no value) (units unknown) (unknown) (unknown) (no date) (unknown) (unknown) 07/25/22 (units unknown) (unknown) (unknown) (no date) (unknown) (unknown) 09/06/22 09/06/22 09/06/22 Range/Units (units unknown) (unknown) (unknown) (no date) (unknown) (unknown) 09/06/22 09/06/22 Range/Units (units unknown) (unknown) (unknown) (no date) (unknown) (unknown) 09/06/22 16:35 (units unknown) (unknown) (unknown) (no date) (unknown) (unknown) 09/06/22 16:36 (units unknown) (unknown) (unknown) (no date) (unknown) (unknown) 09/06/22 17:10 (units unknown) (unknown) (unknown) (no date) (unknown) (unknown) 09/06/22 17:16 (units unknown) (unknown) (unknown) (no date) (unknown) (unknown) 09/06/22 17:30 (units unknown) (unknown) (unknown) (no date) (unknown) (unknown) 09/06/22 (units unknown) (unknown) (unknown) (no date) (unknown) (unknown) 1 tab PO Q6H PRN (Reason: Pain (Scale Score 4-6)) (units unknown) (unknown) (unknown) (no date) (unknown) (unknown) 10 mg PO DAILY (units unknown) (unknown) (unknown) (no date) (unknown) (unknown) 100 mg PO BID (units unknown) (unknown) (unknown) (no date) (unknown) (unknown) 100 mg PO DAILY (units unknown) (unknown) (unknown) (no date) (unknown) (unknown) 12 point review of systems is negative except for those stated above (units unknown) (unknown) (unknown) (no date) (unknown) (unknown) 16:39 09/06/22 (units unknown) (unknown) (unknown) (no date) (unknown) (unknown) 16:42 09/06/22 (units unknown) (unknown) (unknown) (no date) (unknown) (unknown) 16:42 (units unknown) (unknown) (unknown) (no date) (unknown) (unknown) 16:45 09/06/22 (units unknown) (unknown) (unknown) (no date) (unknown) (unknown) 16:45 (units unknown) (unknown) (unknown) (no date) (unknown) (unknown) 16:50 09/06/22 (units unknown) (unknown) (unknown) (no date) (unknown) (unknown) 17:00 09/06/22 (units unknown) (unknown) (unknown) (no date) (unknown) (unknown) 17:01 09/06/22 (units unknown) (unknown) (unknown) (no date) (unknown) (unknown) 17:01 (units unknown) (unknown) (unknown) (no date) (unknown) (unknown) 17:06 09/06/22 (units unknown) (unknown) (unknown) (no date) (unknown) (unknown) 17:10 09/06/22 (units unknown) (unknown) (unknown) (no date) (unknown) (unknown) 17:10 17:16 17:16 (units unknown) (unknown) (unknown) (no date) (unknown) (unknown) 17:10 (units unknown) (unknown) (unknown) (no date) (unknown) (unknown) 17:15 09/06/22 (units unknown) (unknown) (unknown) (no date) (unknown) (unknown) 17:15 (units unknown) (unknown) (unknown) (no date) (unknown) (unknown) 17:16 17:16 (units unknown) (unknown) (unknown) (no date) (unknown) (unknown) 17:21 09/06/22 (units unknown) (unknown) (unknown) (no date) (unknown) (unknown) 17:26 09/06/22 (units unknown) (unknown) (unknown) (no date) (unknown) (unknown) 17:26 (units unknown) (unknown) (unknown) (no date) (unknown) (unknown) 17:30 09/06/22 (units unknown) (unknown) (unknown) (no date) (unknown) (unknown) 17:30 (units unknown) (unknown) (unknown) (no date) (unknown) (unknown) 17:36 09/06/22 (units unknown) (unknown) (unknown) (no date) (unknown) (unknown) 17:38 09/06/22 (units unknown) (unknown) (unknown) (no date) (unknown) (unknown) 17:38 (units unknown) (unknown) (unknown) (no date) (unknown) (unknown) 17:40 09/06/22 (units unknown) (unknown) (unknown) (no date) (unknown) (unknown) 17:40 (units unknown) (unknown) (unknown) (no date) (unknown) (unknown) 17:42 09/06/22 (units unknown) (unknown) (unknown) (no date) (unknown) (unknown) 17:45 (units unknown) (unknown) (unknown) (no date) (unknown) (unknown) 17:46 09/06/22 (units unknown) (unknown) (unknown) (no date) (unknown) (unknown) 17:48 (units unknown) (unknown) (unknown) (no date) (unknown) (unknown) [id number] (units unknown) (unknown) (unknown) (no date) (unknown) (unknown) 2 inh INHALATION BID (units unknown) (unknown) (unknown) (no date) (unknown) (unknown) 2 puff INHALATION QI D PRN (Reason: Shortness Of Breath) (units unknown) (unknown) (unknown) (no date) (unknown) (unknown) 25 mg PO DAILY (units unknown) (unknown) (unknown) (no date) (unknown) (unknown) 40 mg PO BID (units unknown) (unknown) (unknown) (no date) (unknown) (unknown) 40 mg PO DAILY Qty: 3 0RF (units unknown) (unknown) (unknown) (no date) (unknown) (unknown) 5 mg PO BID (units unknown) (unknown) (unknown) (no date) (unknown) (unknown) 5 mg PO DAILY Qty: 3 0RF (units unknown) (unknown) (unknown) (no date) (unknown) (unknown) 5 mg PO DAILY Qty: 3 0 3RF (units unknown) (unknown) (unknown) (no date) (unknown) (unknown) 5 mg PO DAILY (units unknown) (unknown) (unknown) (no date) (unknown) (unknown) 5 mg PO Q4HR PRN (Reason: pain) Qty: 20 0RF (units unknown) (unknown) (unknown) (no date) (unknown) (unknown) 57-year-old female daily smoker with history of COPD on home oxygen at 3 L (units unknown) (unknown) (unknown) (no date) (unknown) (unknown) ABG Base Excess (-2-3) mmol/L (units unknown) (unknown) (unknown) (no date) (unknown) (unknown) ABG Base Excess 6.0 H (-2-3) mmol/L (units unknown) (unknown) (unknown) (no date) (unknown) (unknown) ABG HCO3 (23-27) mmol/L (units unknown) (unknown) (unknown) (no date) (unknown) (unknown) ABG HCO3 31 H (23-27 ) mmol/L (units unknown) (unknown) (unknown) (no date) (unknown) (unknown) ABG O2 Saturation (95-100) % (units unknown) (unknown) (unknown) (no date) (unknown) (unknown) ABG O2 Saturation 94 L (95-100) % (units unknown) (unknown) (unknown) (no date) (unknown) (unknown) ABG Total CO2 (23-27 ) mmol/L (units unknown) (unknown) (unknown) (no date) (unknown) (unknown) ABG Total CO2 32 H (23-27) mmol/L (units unknown) (unknown) (unknown) (no date) (unknown) (unknown) ABG pCO2 (35-45) mmHg (units unknown) (unknown) (unknown) (no date) (unknown) (unknown) ABG pCO2 46.9 H (35-45) mmHg (units unknown) (unknown) (unknown) (no date) (unknown) (unknown) ABG pH (7.35-7.45) (units unknown) (unknown) (unknown) (no date) (unknown) (unknown) ABG pH 7.42 (7.35-7.45) (units unknown) (unknown) (unknown) (no date) (unknown) (unknown) ABG pO2 (80-100) mmHg (units unknown) (unknown) (unknown) (no date) (unknown) (unknown) ABG pO2 70 L (80-100 ) mmHg (units unknown) (unknown) (unknown) (no date) (unknown) (unknown) ALT (<35) IU/L (units unknown) (unknown) (unknown) (no date) (unknown) (unknown) ALT 19 (<35) IU/L (units unknown) (unknown) (unknown) (no date) (unknown) (unknown) APTT (26-36) SECONDS (units unknown) (unknown) (unknown) (no date) (unknown) (unknown) APTT 23 L (26-36) SECONDS (units unknown) (unknown) (unknown) (no date) (unknown) (unknown) AST (14-36) IU/L (units unknown) (unknown) (unknown) (no date) (unknown) (unknown) AST 20 (14-36) IU/L (units unknown) (unknown) (unknown) (no date) (unknown) (unknown) Age/Sex: 57 / F (units unknown) (unknown) (unknown) (no date) (unknown) (unknown) Albumin (3.5-5.0) g/dL (units unknown) (unknown) (unknown) (no date) (unknown) (unknown) Albumin 3.8 (3.5-5.0 ) g/dL (units unknown) (unknown) (unknown) (no date) (unknown) (unknown) Albumin/Globulin Ratio (1.0-2.8) (units unknown) (unknown) (unknown) (no date) (unknown) (unknown) Albumin/Globulin Ratio 1.3 (1.0-2.8) (units unknown) (unknown) (unknown) (no date) (unknown) (unknown) Alkaline Phosphatase (38-126) U/L (units unknown) (unknown) (unknown) (no date) (unknown) (unknown) Alkaline Phosphatase 81 (38-126) U/L (units unknown) (unknown) (unknown) (no date) (unknown) (unknown) Allergies (units unknown) (unknown) (unknown) (no date) (unknown) (unknown) Allergy/AdvReac Type Severity Reaction Status Date / Time (units unknown) (unknown) (unknown) (no date) (unknown) (unknown) Arterial Blood Gas Stat (units unknown) (unknown) (unknown) (no date) (unknown) (unknown) BACK: Nontender without deformity or crepitance. No flank tenderness. (units unknown) (unknown) (unknown) (no date) (unknown) (unknown) BUN (7-17) mg/dL (units unknown) (unknown) (unknown) (no date) (unknown) (unknown) BUN 26 H (7-17) mg/dL (units unknown) (unknown) (unknown) (no date) (unknown) (unknown) BUN/Creatinine Ratio (6-22) (units unknown) (unknown) (unknown) (no date) (unknown) (unknown) BUN/Creatinine Ratio 20.2 (6-22) (units unknown) (unknown) (unknown) (no date) (unknown) (unknown) Baso # (Auto) (0-100 ) /uL (units unknown) (unknown) (unknown) (no date) (unknown) (unknown) Baso # (Auto) 100 (0-100) /uL (units unknown) (unknown) (unknown) (no date) (unknown) (unknown) Baso % (Auto) (0-2) % (units unknown) (unknown) (unknown) (no date) (unknown) (unknown) Baso % (Auto) 1.0 (0-2) % (units unknown) (unknown) (unknown) (no date) (unknown) (unknown) Blood Pressure 100/4 9 L 104/52 L (units unknown) (unknown) (unknown) (no date) (unknown) (unknown) Blood Pressure 102/7 1 150/71 H (units unknown) (unknown) (unknown) (no date) (unknown) (unknown) Blood Pressure 104/4 8 L (units unknown) (unknown) (unknown) (no date) (unknown) (unknown) Blood Pressure 110/5 3 L 96/54 L (units unknown) (unknown) (unknown) (no date) (unknown) (unknown) Blood Pressure 112/5 4 L (units unknown) (unknown) (unknown) (no date) (unknown) (unknown) Blood Pressure 115/5 8 L (units unknown) (unknown) (unknown) (no date) (unknown) (unknown) Blood Pressure 72/43 L (units unknown) (unknown) (unknown) (no date) (unknown) (unknown) Blood Pressure 76/42 L 93/54 L (units unknown) (unknown) (unknown) (no date) (unknown) (unknown) Blood Pressure 83/51 L 71/46 L (units unknown) (unknown) (unknown) (no date) (unknown) (unknown) Blood Pressure 93/54 L (units unknown) (unknown) (unknown) (no date) (unknown) (unknown) Blood Pressure (units unknown) (unknown) (unknown) (no date) (unknown) (unknown) CARDIOVASCULAR: Irregular rhythm (units unknown) (unknown) (unknown) (no date) (unknown) (unknown) CARDIOVASCULAR: see HPI (units unknown) (unknown) (unknown) (no date) (unknown) (unknown) CK-MB (CK-2) Rel Index TNP (units unknown) (unknown) (unknown) (no date) (unknown) (unknown) CK-MB (CK-2) Rel Index (units unknown) (unknown) (unknown) (no date) (unknown) (unknown) CK-MB (CK-2) TNP (units unknown) (unknown) (unknown) (no date) (unknown) (unknown) CK-MB (CK-2) (units unknown) (unknown) (unknown) (no date) (unknown) (unknown) COPD (chronic obstructive pulmonary disease) (units unknown) (unknown) (unknown) (no date) (unknown) (unknown) Calcium (8.4-10.2) mg/dL (units unknown) (unknown) (unknown) (no date) (unknown) (unknown) Calcium 9.0 (8.4-10.2) mg/dL (units unknown) (unknown) (unknown) (no date) (unknown) (unknown) Carbon Dioxide (22-32) mmol/L (units unknown) (unknown) (unknown) (no date) (unknown) (unknown) Carbon Dioxide 35 H (22-32) mmol/L (units unknown) (unknown) (unknown) (no date) (unknown) (unknown) Chest [XR chest 1V] Stat (units unknown) (unknown) (unknown) (no date) (unknown) (unknown) Chief complaint: Shortness of Breath/Dyspnea (units unknown) (unknown) (unknown) (no date) (unknown) (unknown) Chloride (98-107) mmol/L (units unknown) (unknown) (unknown) (no date) (unknown) (unknown) Chloride 100 (98-107 ) mmol/L (units unknown) (unknown) (unknown) (no date) (unknown) (unknown) Complete Blood Count AUTO DIFF Stat (units unknown) (unknown) (unknown) (no date) (unknown) (unknown) Comprehensive Metabolic Panel Stat (units unknown) (unknown) (unknown) (no date) (unknown) (unknown) Consultation #1: (units unknown) (unknown) (unknown) (no date) (unknown) (unknown) Consultations (units unknown) (unknown) (unknown) (no date) (unknown) (unknown) Course (units unknown) (unknown) (unknown) (no date) (unknown) (unknown) Creatinine (0.52-1.04) mg/dL (units unknown) (unknown) (unknown) (no date) (unknown) (unknown) Creatinine 1.29 H (0.52-1.04) mg/dL (units unknown) (unknown) (unknown) (no date) (unknown) (unknown) : 1965 Acct:[id number] (units unknown) (unknown) (unknown) (no date) (unknown) (unknown) Date of Service: 09/06/22 (units unknown) (unknown) (unknown) (no date) (unknown) (unknown) Departure (units unknown) (unknown) (unknown) (no date) (unknown) (unknown) Discharge Plan (units unknown) (unknown) (unknown) (no date) (unknown) (unknown) Discontinued Medications (units unknown) (unknown) (unknown) (no date) (unknown) (unknown) ED Orders (units unknown) (unknown) (unknown) (no date) (unknown) (unknown) EKG-12 Lead Stat (units unknown) (unknown) (unknown) (no date) (unknown) (unknown) ENT: Nose without bleeding, purulent drainage. Throat without erythema, (units unknown) (unknown) (unknown) (no date) (unknown) (unknown) ER Physician: Aristeo Xiong D.O. (units unknown) (unknown) (unknown) (no date) (unknown) (unknown) EXTREMITIES: No valdo a or joint tenderness. (units unknown) (unknown) (unknown) (no date) (unknown) (unknown) EYES: Pupils equal round and reactive. Extraocular motions intact. No scleral (units unknown) (unknown) (unknown) (no date) (unknown) (unknown) Eliquis 5 mg tablet (units unknown) (unknown) (unknown) (no date) (unknown) (unknown) Emergency Report (units unknown) (unknown) (unknown) (no date) (unknown) (unknown) Eos # (Auto) (0-450) /uL (units unknown) (unknown) (unknown) (no date) (unknown) (unknown) Eos # (Auto) 100 (0-450) /uL (units unknown) (unknown) (unknown) (no date) (unknown) (unknown) Eos % (Auto) (2-4) % (units unknown) (unknown) (unknown) (no date) (unknown) (unknown) Eos % (Auto) 1.1 L (2-4) % (units unknown) (unknown) (unknown) (no date) (unknown) (unknown) Estimated GFR (>60) mL/min (units unknown) (unknown) (unknown) (no date) (unknown) (unknown) Estimated GFR 48 L (>60) mL/min (units unknown) (unknown) (unknown) (no date) (unknown) (unknown) Exam Narrative: (units unknown) (unknown) (unknown) (no date) (unknown) (unknown) Exam (units unknown) (unknown) (unknown) (no date) (unknown) (unknown) FiO2 32 (units unknown) (unknown) (unknown) (no date) (unknown) (unknown) FiO2 (units unknown) (unknown) (unknown) (no date) (unknown) (unknown) Fish Containing Products Allergy Severe Anaphylaxis Verified 07/27/22 13:29 (units unknown) (unknown) (unknown) (no date) (unknown) (unknown) GASTROINTESTINAL: Abdomen soft, non-tender, nondistended. (units unknown) (unknown) (unknown) (no date) (unknown) (unknown) GASTROINTESTINAL: Denies nausea, vomiting, abdominal pain, diarrhea, (units unknown) (unknown) (unknown) (no date) (unknown) (unknown) GENERAL: [57] year old patient appears stated age. Well-developed patient, in (units unknown) (unknown) (unknown) (no date) (unknown) (unknown) GENERAL: see HPI. (units unknown) (unknown) (unknown) (no date) (unknown) (unknown) : Denies dysuria, frequency, incontinence, hematuria, urinary retention. (units unknown) (unknown) (unknown) (no date) (unknown) (unknown) General (units unknown) (unknown) (unknown) (no date) (unknown) (unknown) Globulin (1.7-4.1) g/dL (units unknown) (unknown) (unknown) (no date) (unknown) (unknown) Globulin 2.9 (1.7-4.1) g/dL (units unknown) (unknown) (unknown) (no date) (unknown) (unknown) Glucose (70-100) mg/dL (units unknown) (unknown) (unknown) (no date) (unknown) (unknown) Glucose 89 (70-100) mg/dL (units unknown) (unknown) (unknown) (no date) (unknown) (unknown) HEAD: Atraumatic. Normocephalic. (units unknown) (unknown) (unknown) (no date) (unknown) (unknown) HEENT: Denies sinus pain, ear pain, sore throat, difficulty swallowing, (units unknown) (unknown) (unknown) (no date) (unknown) (unknown) HPI - General Adult (units unknown) (unknown) (unknown) (no date) (unknown) (unknown) HPI narrative: (units unknown) (unknown) (unknown) (no date) (unknown) (unknown) Hct (36-46) % (units unknown) (unknown) (unknown) (no date) (unknown) (unknown) Hct 42.1 (36-46) % (units unknown) (unknown) (unknown) (no date) (unknown) (unknown) Hgb (12.0-16.0) g/dL (units unknown) (unknown) (unknown) (no date) (unknown) (unknown) Hgb 14.5 (12.0-16.0) g/dL (units unknown) (unknown) (unknown) (no date) (unknown) (unknown) History of Present Illness (units unknown) (unknown) (unknown) (no date) (unknown) (unknown) Home Medications (units unknown) (unknown) (unknown) (no date) (unknown) (unknown) INHALE 2 PUFFS BY MOUTH 4 TIMES DAILY NEEDED (units unknown) (unknown) (unknown) (no date) (unknown) (unknown) INR (0.9-1.3) (units unknown) (unknown) (unknown) (no date) (unknown) (unknown) INR 1.3 (0.9-1.3) (units unknown) (unknown) (unknown) (no date) (unknown) (unknown) Initial Vital Signs (units unknown) (unknown) (unknown) (no date) (unknown) (unknown) Initial Vital Signs: (units unknown) (unknown) (unknown) (no date) (unknown) (unknown) [address] [address] (units unknown) (unknown) (unknown) (no date) (unknown) (unknown) Lab Data (units unknown) (unknown) (unknown) (no date) (unknown) (unknown) Lab Results (units unknown) (unknown) (unknown) (no date) (unknown) (unknown) Labs: (units unknown) (unknown) (unknown) (no date) (unknown) (unknown) Lactate (0.7-2.1) mmol/L (units unknown) (unknown) (unknown) (no date) (unknown) (unknown) Lactate (Lactic Acid ) Stat (units unknown) (unknown) (unknown) (no date) (unknown) (unknown) Lactate 1.0 (0.7-2.1 ) mmol/L (units unknown) (unknown) (unknown) (no date) (unknown) (unknown) Lipase (23-300) U/L (units unknown) (unknown) (unknown) (no date) (unknown) (unknown) Lipase 80 (23-300) U/L (units unknown) (unknown) (unknown) (no date) (unknown) (unknown) Lipase Stat (units unknown) (unknown) (unknown) (no date) (unknown) (unknown) Lymph # (Auto) (4801-5151) /uL (units unknown) (unknown) (unknown) (no date) (unknown) (unknown) Lymph # (Auto) 2700 (0713-4531) /uL (units unknown) (unknown) (unknown) (no date) (unknown) (unknown) Lymph % (Auto) (25-40) % (units unknown) (unknown) (unknown) (no date) (unknown) (unknown) Lymph % (Auto) 26.3 (25-40) % (units unknown) (unknown) (unknown) (no date) (unknown) (unknown) MCH (26-34) PG (units unknown) (unknown) (unknown) (no date) (unknown) (unknown) MCH 32.5 (26-34) PG (units unknown) (unknown) (unknown) (no date) (unknown) (unknown) MCHC (30-36) % (units unknown) (unknown) (unknown) (no date) (unknown) (unknown) MCHC 34.6 (30-36) % (units unknown) (unknown) (unknown) (no date) (unknown) (unknown) MCV (80-100) fL (units unknown) (unknown) (unknown) (no date) (unknown) (unknown) MCV 93.9 (80-100) fL (units unknown) (unknown) (unknown) (no date) (unknown) (unknown) MUSCULOSKELETAL: denies weakness, joint pain, or bony pain (units unknown) (unknown) (unknown) (no date) (unknown) (unknown) Magnesium (1.6-2.3) mg/dL (units unknown) (unknown) (unknown) (no date) (unknown) (unknown) Magnesium 1.9 (1.6-2.3) mg/dL (units unknown) (unknown) (unknown) (no date) (unknown) (unknown) Magnesium Stat (units unknown) (unknown) (unknown) (no date) (unknown) (unknown) Medical Decision Making (units unknown) (unknown) (unknown) (no date) (unknown) (unknown) Medical History (units unknown) (unknown) (unknown) (no date) (unknown) (unknown) Medication Instructions Recorded Confirmed (units unknown) (unknown) (unknown) (no date) (unknown) (unknown) Medication Instructions Recorded (units unknown) (unknown) (unknown) (no date) (unknown) (unknown) Methylprednisolone (Methylprednisolone 125 Mg/2 Ml Vial) 125 mg IV NOW ONE (units unknown) (unknown) (unknown) (no date) (unknown) (unknown) [place] # (Auto) (0-900 ) /uL (units unknown) (unknown) (unknown) (no date) (unknown) (unknown) [place] # (Auto) 1000 H (0-900) /uL (units unknown) (unknown) (unknown) (no date) (unknown) (unknown) [place] % (Auto) (3-14) % (units unknown) (unknown) (unknown) (no date) (unknown) (unknown) [place] % (Auto) 9.6 (3-14) % (units unknown) (unknown) (unknown) (no date) (unknown) (unknown) NECK: Trachea midline. Non tender (units unknown) (unknown) (unknown) (no date) (unknown) (unknown) NEURO: AOx3. (units unknown) (unknown) (unknown) (no date) (unknown) (unknown) NEUROLOGIC: Denies weakness, headache, numbness, change in speech, confusion, (units unknown) (unknown) (unknown) (no date) (unknown) (unknown) NO need for transfer (units unknown) (unknown) (unknown) (no date) (unknown) (unknown) NT-Pro-B Natriuret Pep (<125) pg/mL (units unknown) (unknown) (unknown) (no date) (unknown) (unknown) NT-Pro-B Natriuret Pep 1250 H (<125) pg/mL (units unknown) (unknown) (unknown) (no date) (unknown) (unknown) NT-proBNP (BNP-Adult 18+) Stat (units unknown) (unknown) (unknown) (no date) (unknown) (unknown) Narrative (units unknown) (unknown) (unknown) (no date) (unknown) (unknown) Narrative: (units unknown) (unknown) (unknown) (no date) (unknown) (unknown) Neut # (Auto) (0883-3135) /uL (units unknown) (unknown) (unknown) (no date) (unknown) (unknown) Neut # (Auto) 6300 (7915-1818) /uL (units unknown) (unknown) (unknown) (no date) (unknown) (unknown) Neut % (Auto) (50-75 ) % (units unknown) (unknown) (unknown) (no date) (unknown) (unknown) Neut % (Auto) 62.0 (50-75) % (units unknown) (unknown) (unknown) (no date) (unknown) (unknown) No Action (units unknown) (unknown) (unknown) (no date) (unknown) (unknown) Ordered: (units unknown) (unknown) (unknown) (no date) (unknown) (unknown) Orders (units unknown) (unknown) (unknown) (no date) (unknown) (unknown) Oxygen Delivery Method Nasal Cannula (units unknown) (unknown) (unknown) (no date) (unknown) (unknown) Oxygen Delivery Method (units unknown) (unknown) (unknown) (no date) (unknown) (unknown) Oxygen Flow Rate 3 (units unknown) (unknown) (unknown) (no date) (unknown) (unknown) Oxygen Flow Rate (units unknown) (unknown) (unknown) (no date) (unknown) (unknown) PSYCHIATRIC: No concerning psychosocial issues. (units unknown) (unknown) (unknown) (no date) (unknown) (unknown) PT (10.1-12.7) SECONDS (units unknown) (unknown) (unknown) (no date) (unknown) (unknown) PT 15.5 H (10.1-12.7 ) SECONDS (units unknown) (unknown) (unknown) (no date) (unknown) (unknown) PTT Partial Thromboplastin Efrem Stat (units unknown) (unknown) (unknown) (no date) (unknown) (unknown) Patient Comments: (units unknown) (unknown) (unknown) (no date) (unknown) (unknown) Patient History (units unknown) (unknown) (unknown) (no date) (unknown) (unknown) Patient: Ester Benavides MR#: [id number] (units unknown) (unknown) (unknown) (no date) (unknown) (unknown) Plt Count (150-400) X103/uL (units unknown) (unknown) (unknown) (no date) (unknown) (unknown) Plt Count 232 (150-400) X103/uL (units unknown) (unknown) (unknown) (no date) (unknown) (unknown) Potassium (3.4-5.1) mmol/L (units unknown) (unknown) (unknown) (no date) (unknown) (unknown) Potassium 3.4 (3.4-5.1) mmol/L (units unknown) (unknown) (unknown) (no date) (unknown) (unknown) Prescriptions: (units unknown) (unknown) (unknown) (no date) (unknown) (unknown) Previous Rx's (units unknown) (unknown) (unknown) (no date) (unknown) (unknown) Procalcitonin (<0.5) ng/mL (units unknown) (unknown) (unknown) (no date) (unknown) (unknown) Procalcitonin 0.06 (<0.5) ng/mL (units unknown) (unknown) (unknown) (no date) (unknown) (unknown) Procalcitonin Stat (units unknown) (unknown) (unknown) (no date) (unknown) (unknown) Prothrombin Time INR Stat (units unknown) (unknown) (unknown) (no date) (unknown) (unknown) Pulse Oximetry 100 (units unknown) (unknown) (unknown) (no date) (unknown) (unknown) Pulse Oximetry 82 L (units unknown) (unknown) (unknown) (no date) (unknown) (unknown) Pulse Oximetry 93 94 (units unknown) (unknown) (unknown) (no date) (unknown) (unknown) Pulse Oximetry 93 96 (units unknown) (unknown) (unknown) (no date) (unknown) (unknown) Pulse Oximetry 96 (units unknown) (unknown) (unknown) (no date) (unknown) (unknown) Pulse Oximetry 97 96 (units unknown) (unknown) (unknown) (no date) (unknown) (unknown) Pulse Oximetry 97 97 (units unknown) (unknown) (unknown) (no date) (unknown) (unknown) Pulse Oximetry 98 09/06/22 16:39 (units unknown) (unknown) (unknown) (no date) (unknown) (unknown) Pulse Oximetry 98 98 (units unknown) (unknown) (unknown) (no date) (unknown) (unknown) Pulse Oximetry 99 98 98 (units unknown) (unknown) (unknown) (no date) (unknown) (unknown) Pulse Rate 44 L 09/06/22 16:39 (units unknown) (unknown) (unknown) (no date) (unknown) (unknown) Pulse Rate 80 44 L 80 (units unknown) (unknown) (unknown) (no date) (unknown) (unknown) Pulse Rate 80 (units unknown) (unknown) (unknown) (no date) (unknown) (unknown) Pulse Rate 81 78 (units unknown) (unknown) (unknown) (no date) (unknown) (unknown) Pulse Rate 81 80 (units unknown) (unknown) (unknown) (no date) (unknown) (unknown) Pulse Rate 82 82 (units unknown) (unknown) (unknown) (no date) (unknown) (unknown) Pulse Rate 83 80 (units unknown) (unknown) (unknown) (no date) (unknown) (unknown) Pulse Rate 84 (units unknown) (unknown) (unknown) (no date) (unknown) (unknown) Pulse Rate 86 (units unknown) (unknown) (unknown) (no date) (unknown) (unknown) Pulse Rate 93 H 82 (units unknown) (unknown) (unknown) (no date) (unknown) (unknown) Pulse Rate 94 H (units unknown) (unknown) (unknown) (no date) (unknown) (unknown) Pulse Rate 96 H (units unknown) (unknown) (unknown) (no date) (unknown) (unknown) RBC (4.0-5.2) X106/uL (units unknown) (unknown) (unknown) (no date) (unknown) (unknown) RBC 4.48 (4.0-5.2) X106/uL (units unknown) (unknown) (unknown) (no date) (unknown) (unknown) RDW (11.6-14.8) % (units unknown) (unknown) (unknown) (no date) (unknown) (unknown) RDW 14.8 (11.6-14.8) % (units unknown) (unknown) (unknown) (no date) (unknown) (unknown) RESPIRATORY: prolonged expiratory phase with decreased breath sounds (units unknown) (unknown) (unknown) (no date) (unknown) (unknown) RESPIRATORY: see HPI (units unknown) (unknown) (unknown) (no date) (unknown) (unknown) Referrals: (units unknown) (unknown) (unknown) (no date) (unknown) (unknown) Related Data (units unknown) (unknown) (unknown) (no date) (unknown) (unknown) Respiratory Panel (Film Array) Stat (units unknown) (unknown) (unknown) (no date) (unknown) (unknown) Respiratory Rate 24 (units unknown) (unknown) (unknown) (no date) (unknown) (unknown) Respiratory Rate 26 H (units unknown) (unknown) (unknown) (no date) (unknown) (unknown) Respiratory Rate 27 H (units unknown) (unknown) (unknown) (no date) (unknown) (unknown) Respiratory Rate 28 H 28 H (units unknown) (unknown) (unknown) (no date) (unknown) (unknown) Respiratory Rate 28 H 29 H (units unknown) (unknown) (unknown) (no date) (unknown) (unknown) Respiratory Rate 28 H (units unknown) (unknown) (unknown) (no date) (unknown) (unknown) Respiratory Rate 29 H 33 H (units unknown) (unknown) (unknown) (no date) (unknown) (unknown) Respiratory Rate 29 H (units unknown) (unknown) (unknown) (no date) (unknown) (unknown) Respiratory Rate 33 H 35 H (units unknown) (unknown) (unknown) (no date) (unknown) (unknown) Respiratory Rate 35 H 29 H (units unknown) (unknown) (unknown) (no date) (unknown) (unknown) Respiratory Rate 35 H 33 H (units unknown) (unknown) (unknown) (no date) (unknown) (unknown) Respiratory Rate 36 H (units unknown) (unknown) (unknown) (no date) (unknown) (unknown) Review of Systems (units unknown) (unknown) (unknown) (no date) (unknown) (unknown) SKIN: Denies rash, skin lesions, or other (units unknown) (unknown) (unknown) (no date) (unknown) (unknown) SKIN: No rash or erythema of visible areas (units unknown) (unknown) (unknown) (no date) (unknown) (unknown) She is had no recent travel, change in medications, doses or diet. (units unknown) (unknown) (unknown) (no date) (unknown) (unknown) Signed By: (units unknown) (unknown) (unknown) (no date) (unknown) (unknown) Smoking Status: Current every day smoker (units unknown) (unknown) (unknown) (no date) (unknown) (unknown) Social History (units unknown) (unknown) (unknown) (no date) (unknown) (unknown) Sodium (137-145) mmol/L (units unknown) (unknown) (unknown) (no date) (unknown) (unknown) Sodium 140 (137-145) mmol/L (units unknown) (unknown) (unknown) (no date) (unknown) (unknown) Stated complaint: SO B monday/ (units unknown) (unknown) (unknown) (no date) (unknown) (unknown) Stop: 09/06/22 16:36 (units unknown) (unknown) (unknown) (no date) (unknown) (unknown) Substance Use Type: does not use (units unknown) (unknown) (unknown) (no date) (unknown) (unknown) TAKE 1 TABLET BY MOUTH EVERY 6 HOURS NEEDED FOR PAIN (units unknown) (unknown) (unknown) (no date) (unknown) (unknown) TAKE 1 TABLET BY MOUTH ONCE DAILY (units unknown) (unknown) (unknown) (no date) (unknown) (unknown) TAKE 1 TABLET BY MOUTH TWICE DAILY (units unknown) (unknown) (unknown) (no date) (unknown) (unknown) TAKE 1/2 (ONE-HALF) TABLET BY MOUTH ONCE DAILY (units unknown) (unknown) (unknown) (no date) (unknown) (unknown) Time Seen by Provider: 09/06/22 16:31 (units unknown) (unknown) (unknown) (no date) (unknown) (unknown) Total Bilirubin (0.2-1.3) mg/dL (units unknown) (unknown) (unknown) (no date) (unknown) (unknown) Total Bilirubin 0.5 (0.2-1.3) mg/dL (units unknown) (unknown) (unknown) (no date) (unknown) (unknown) Total Creatine Kinas e < 20 L (30-135) U/L (units unknown) (unknown) (unknown) (no date) (unknown) (unknown) Total Creatine Kinas e (30-135) U/L (units unknown) (unknown) (unknown) (no date) (unknown) (unknown) Total Protein (6.3-8.2) g/dL (units unknown) (unknown) (unknown) (no date) (unknown) (unknown) Total Protein 6.7 (6.3-8.2) g/dL (units unknown) (unknown) (unknown) (no date) (unknown) (unknown) Troponin + CK Cardia c Panel Stat (units unknown) (unknown) (unknown) (no date) (unknown) (unknown) Troponin I (0.01-0.034) ng/mL (units unknown) (unknown) (unknown) (no date) (unknown) (unknown) Troponin I 0.013 (0.01-0.034) ng/mL (units unknown) (unknown) (unknown) (no date) (unknown) (unknown) Urinalysis and Microscopic Stat (units unknown) (unknown) (unknown) (no date) (unknown) (unknown) Vital Signs - 8 hr (units unknown) (unknown) (unknown) (no date) (unknown) (unknown) Vital Signs (units unknown) (unknown) (unknown) (no date) (unknown) (unknown) Vital signs: (units unknown) (unknown) (unknown) (no date) (unknown) (unknown) WBC (4.5-11.0) X103/uL (units unknown) (unknown) (unknown) (no date) (unknown) (unknown) WBC 10.2 (4.5-11.0) X103/uL (units unknown) (unknown) (unknown) (no date) (unknown) (unknown) Rohini Ceron PA-C [Primary Care Provider] (units unknown) (unknown) (unknown) (no date) (unknown) (unknown) [Embedded Image Not Available] (units unknown) (unknown) (unknown) (no date) (unknown) (unknown) acetaminophen [From [facility]] Allergy Verified 07/06/21 13:33 (units unknown) (unknown) (unknown) (no date) (unknown) (unknown) activated powder inhaler (units unknown) (unknown) (unknown) (no date) (unknown) (unknown) aerosol inhaler (Ventolin HFA) Shortness Of Breath (units unknown) (unknown) (unknown) (no date) (unknown) (unknown) albuterol sulfate 90 mcg/actuation 2 puff inhalation QID PRN 07/25/22 07/25/22 (units unknown) (unknown) (unknown) (no date) (unknown) (unknown) albuterol sulfate [Ventolin HFA] 90 mcg/actuation HFA aerosol inhaler (units unknown) (unknown) (unknown) (no date) (unknown) (unknown) amiodarone 200 mg tablet 100 mg PO DAILY 07/25/22 07/25/22 (units unknown) (unknown) (unknown) (no date) (unknown) (unknown) amiodarone 200 mg tablet (units unknown) (unknown) (unknown) (no date) (unknown) (unknown) apixaban 5 mg tablet (Eliquis) 5 mg PO BID 07/25/22 07/25/22 (units unknown) (unknown) (unknown) (no date) (unknown) (unknown) bee pollen Allergy Severe Anaphylaxis Verified 07/28/22 10:43 (units unknown) (unknown) (unknown) (no date) (unknown) (unknown) budesonide 90 mcg/actuation Aerosol Powdr Breath Activated (units unknown) (unknown) (unknown) (no date) (unknown) (unknown) budesonide 90 mcg/actuation breath 2 inh inhalation BID 07/25/22 07/25/22 (units unknown) (unknown) (unknown) (no date) (unknown) (unknown) codeine Allergy Verified 07/06/21 13:34 (units unknown) (unknown) (unknown) (no date) (unknown) (unknown) constipation, melena. (units unknown) (unknown) (unknown) (no date) (unknown) (unknown) denies any runny nose, sore throat and has had a harsh wet sounding cough she (units unknown) (unknown) (unknown) (no date) (unknown) (unknown) discussed with Dr. Butler. Recommends diuresis, admission here at [place], [place]. (units unknown) (unknown) (unknown) (no date) (unknown) (unknown) dizziness. (units unknown) (unknown) (unknown) (no date) (unknown) (unknown) doxycycline AdvReac Vomiting Verified 07/28/22 10:43 (units unknown) (unknown) (unknown) (no date) (unknown) (unknown) erythromycin base Allergy Verified 07/06/21 13:34 (units unknown) (unknown) (unknown) (no date) (unknown) (unknown) furosemide 40 mg tablet 40 mg PO BID 07/25/22 07/25/22 (units unknown) (unknown) (unknown) (no date) (unknown) (unknown) furosemide 40 mg tablet (units unknown) (unknown) (unknown) (no date) (unknown) (unknown) glipizide 5 mg tablet, extended 5 mg PO DAILY #30 tabs 07/28/22 (units unknown) (unknown) (unknown) (no date) (unknown) (unknown) glipizide [Glucotrol XL] 5 mg tablet extended release 24hr (units unknown) (unknown) (unknown) (no date) (unknown) (unknown) her oxygen more ofte n than normal. She denies nausea, vomiting or diarrhea. (units unknown) (unknown) (unknown) (no date) (unknown) (unknown) household members: spouse (units unknown) (unknown) (unknown) (no date) (unknown) (unknown) hydrocodone 5 mg-acetaminophen 325 1 tab PO Q6H PRN Pain (Scale Score 07/25/22 (units unknown) (unknown) (unknown) (no date) (unknown) (unknown) hydrocodone-acetamin o phen 5-325 mg tablet (units unknown) (unknown) (unknown) (no date) (unknown) (unknown) icterus. No injectio n or drainage. (units unknown) (unknown) (unknown) (no date) (unknown) (unknown) iodine Allergy Rash Verified 07/27/22 13:32 (units unknown) (unknown) (unknown) (no date) (unknown) (unknown) latex Allergy Rash Verified 07/27/22 13:29 (units unknown) (unknown) (unknown) (no date) (unknown) (unknown) lisinopril 5 mg tablet 5 mg PO DAILY 07/25/22 07/25/22 (units unknown) (unknown) (unknown) (no date) (unknown) (unknown) lisinopril 5 mg tablet (units unknown) (unknown) (unknown) (no date) (unknown) (unknown) lives independently: Yes (units unknown) (unknown) (unknown) (no date) (unknown) (unknown) metoprolol succinate 100 mg 100 mg PO BID 07/25/22 07/25/22 (units unknown) (unknown) (unknown) (no date) (unknown) (unknown) metoprolol succinate 100 mg Tablet Extended Release 24 Hr (units unknown) (unknown) (unknown) (no date) (unknown) (unknown) mg tablet 4-6) (units unknown) (unknown) (unknown) (no date) (unknown) (unknown) mild distress. (units unknown) (unknown) (unknown) (no date) (unknown) (unknown) montelukast 10 mg Tablet (units unknown) (unknown) (unknown) (no date) (unknown) (unknown) montelukast 10 mg tablet 10 mg PO DAILY 07/25/22 07/25/22 (units unknown) (unknown) (unknown) (no date) (unknown) (unknown) oxycodone 5 mg Tablet (units unknown) (unknown) (unknown) (no date) (unknown) (unknown) oxycodone 5 mg table t 5 mg PO Q4HR PRN pain #20 tabs 07/28/22 (units unknown) (unknown) (unknown) (no date) (unknown) (unknown) pamabrom [From [facility] ] Allergy Verified 07/06/21 13:33 (units unknown) (unknown) (unknown) (no date) (unknown) (unknown) prednisone 20 mg Tablet (units unknown) (unknown) (unknown) (no date) (unknown) (unknown) prednisone 20 mg tablet 40 mg PO DAILY #3 tabs 07/28/22 (units unknown) (unknown) (unknown) (no date) (unknown) (unknown) prednisone 5 mg tablet 5 mg PO DAILY #3 tabs 07/28/22 (units unknown) (unknown) (unknown) (no date) (unknown) (unknown) prednisone 5 mg tablet (units unknown) (unknown) (unknown) (no date) (unknown) (unknown) presents by EMS with worsening shortness of breath over the past 3-4 days. She (units unknown) (unknown) (unknown) (no date) (unknown) (unknown) release 24 hr (Glucotrol XL) (units unknown) (unknown) (unknown) (no date) (unknown) (unknown) seizures, incoordination. (units unknown) (unknown) (unknown) (no date) (unknown) (unknown) shellfish derived Allergy Severe Anaphylaxis Verified 07/28/22 10:43 (units unknown) (unknown) (unknown) (no date) (unknown) (unknown) short of breath with exertion and lying flat and admits that she is been using (units unknown) (unknown) (unknown) (no date) (unknown) (unknown) spironolactone 25 mg tablet 25 mg PO DAILY 07/25/22 07/25/22 (units unknown) (unknown) (unknown) (no date) (unknown) (unknown) spironolactone 25 mg tablet (units unknown) (unknown) (unknown) (no date) (unknown) (unknown) states for many year s and it is no different than normal. She becomes more (units unknown) (unknown) (unknown) (no date) (unknown) (unknown) tablet,extended release 24 hr (units unknown) (unknown) (unknown) (no date) (unknown) (unknown) throughout, perhaps faint crackles in bilateral bases (units unknown) (unknown) (unknown) (no date) (unknown) (unknown) tonsillar hypertroph y or exudate. Airway patent. (units unknown) (unknown) Result panel [id number] (unknown) (no date) (unknown) (unknown) (no value) (units unknown) (unknown) (unknown) (no date) (unknown) (unknown) 07/25/22 (units unknown) (unknown) (unknown) (no date) (unknown) (unknown) 09/06/22 09/06/22 09/06/22 Range/Units (units unknown) (unknown) (unknown) (no date) (unknown) (unknown) 09/06/22 09/06/22 Range/Units (units unknown) (unknown) (unknown) (no date) (unknown) (unknown) 09/06/22 16:35 (units unknown) (unknown) (unknown) (no date) (unknown) (unknown) 09/06/22 16:36 (units unknown) (unknown) (unknown) (no date) (unknown) (unknown) 09/06/22 17:10 (units unknown) (unknown) (unknown) (no date) (unknown) (unknown) 09/06/22 17:16 (units unknown) (unknown) (unknown) (no date) (unknown) (unknown) 09/06/22 17:30 (units unknown) (unknown) (unknown) (no date) (unknown) (unknown) 09/06/22 (units unknown) (unknown) (unknown) (no date) (unknown) (unknown) 1. Findings suggest central vascular and mild interstitial congestion.? (units unknown) (unknown) (unknown) (no date) (unknown) (unknown) 12 point review of systems is negative except for those stated above (units unknown) (unknown) (unknown) (no date) (unknown) (unknown) 16:39 09/06/22 (units unknown) (unknown) (unknown) (no date) (unknown) (unknown) 16:42 09/06/22 (units unknown) (unknown) (unknown) (no date) (unknown) (unknown) 16:42 (units unknown) (unknown) (unknown) (no date) (unknown) (unknown) 16:45 09/06/22 (units unknown) (unknown) (unknown) (no date) (unknown) (unknown) 16:45 (units unknown) (unknown) (unknown) (no date) (unknown) (unknown) 16:50 09/06/22 (units unknown) (unknown) (unknown) (no date) (unknown) (unknown) 17:00 09/06/22 (units unknown) (unknown) (unknown) (no date) (unknown) (unknown) 17:01 09/06/22 (units unknown) (unknown) (unknown) (no date) (unknown) (unknown) 17:01 (units unknown) (unknown) (unknown) (no date) (unknown) (unknown) 17:06 09/06/22 (units unknown) (unknown) (unknown) (no date) (unknown) (unknown) 17:10 09/06/22 (units unknown) (unknown) (unknown) (no date) (unknown) (unknown) 17:10 17:16 17:16 (units unknown) (unknown) (unknown) (no date) (unknown) (unknown) 17:10 (units unknown) (unknown) (unknown) (no date) (unknown) (unknown) 17:15 09/06/22 (units unknown) (unknown) (unknown) (no date) (unknown) (unknown) 17:15 (units unknown) (unknown) (unknown) (no date) (unknown) (unknown) 17:16 17:16 (units unknown) (unknown) (unknown) (no date) (unknown) (unknown) 17:21 04/25/23 (units unknown) (unknown) (unknown) (no date) (unknown) (unknown) 17:26 09/06/22 (units unknown) (unknown) (unknown) (no date) (unknown) (unknown) 17:26 (units unknown) (unknown) (unknown) (no date) (unknown) (unknown) 17:30 09/06/22 (units unknown) (unknown) (unknown) (no date) (unknown) (unknown) 17:30 (units unknown) (unknown) (unknown) (no date) (unknown) (unknown) 17:36 09/06/22 (units unknown) (unknown) (unknown) (no date) (unknown) (unknown) 17:38 09/06/22 (units unknown) (unknown) (unknown) (no date) (unknown) (unknown) 17:38 (units unknown) (unknown) (unknown) (no date) (unknown) (unknown) 17:40 09/06/22 (units unknown) (unknown) (unknown) (no date) (unknown) (unknown) 17:40 (units unknown) (unknown) (unknown) (no date) (unknown) (unknown) 17:42 09/06/22 (units unknown) (unknown) (unknown) (no date) (unknown) (unknown) 17:45 (units unknown) (unknown) (unknown) (no date) (unknown) (unknown) 17:46 09/06/22 (units unknown) (unknown) (unknown) (no date) (unknown) (unknown) 17:48 09/06/22 (units unknown) (unknown) (unknown) (no date) (unknown) (unknown) 17:48 (units unknown) (unknown) (unknown) (no date) (unknown) (unknown) 17:50 09/06/22 (units unknown) (unknown) (unknown) (no date) (unknown) (unknown) 17:50 (units unknown) (unknown) (unknown) (no date) (unknown) (unknown) 17:55 09/06/22 (units unknown) (unknown) (unknown) (no date) (unknown) (unknown) 18:00 09/06/22 (units unknown) (unknown) (unknown) (no date) (unknown) (unknown) 18:00 (units unknown) (unknown) (unknown) (no date) (unknown) (unknown) 18:05 09/06/22 (units unknown) (unknown) (unknown) (no date) (unknown) (unknown) 18:06 09/06/22 (units unknown) (unknown) (unknown) (no date) (unknown) (unknown) 18:06 (units unknown) (unknown) (unknown) (no date) (unknown) (unknown) 18:10 09/06/22 (units unknown) (unknown) (unknown) (no date) (unknown) (unknown) 18:10 (units unknown) (unknown) (unknown) (no date) (unknown) (unknown) 18:15 09/06/22 (units unknown) (unknown) (unknown) (no date) (unknown) (unknown) 18:20 09/06/22 (units unknown) (unknown) (unknown) (no date) (unknown) (unknown) 18:20 (units unknown) (unknown) (unknown) (no date) (unknown) (unknown) 18:25 09/06/22 (units unknown) (unknown) (unknown) (no date) (unknown) (unknown) 18:26 09/06/22 (units unknown) (unknown) (unknown) (no date) (unknown) (unknown) 18:26 (units unknown) (unknown) (unknown) (no date) (unknown) (unknown) 18:30 09/06/22 (units unknown) (unknown) (unknown) (no date) (unknown) (unknown) 18:30 (units unknown) (unknown) (unknown) (no date) (unknown) (unknown) 18:35 09/06/22 (units unknown) (unknown) (unknown) (no date) (unknown) (unknown) 18:40 (units unknown) (unknown) (unknown) (no date) (unknown) (unknown) [id number] (units unknown) (unknown) (unknown) (no date) (unknown) (unknown) 2. Interstitial thickening can also be seen in viral pneumonitis. (units unknown) (unknown) (unknown) (no date) (unknown) (unknown) 3. Stable cardiomegaly.? (units unknown) (unknown) (unknown) (no date) (unknown) (unknown) 57-year-old female daily smoker with history of COPD on home oxygen at 3 L (units unknown) (unknown) (unknown) (no date) (unknown) (unknown) ? (units unknown) (unknown) (unknown) (no date) (unknown) (unknown) ABG Base Excess (-2-3) mmol/L (units unknown) (unknown) (unknown) (no date) (unknown) (unknown) ABG Base Excess 6.0 H (-2-3) mmol/L (units unknown) (unknown) (unknown) (no date) (unknown) (unknown) ABG HCO3 (23-27) mmol/L (units unknown) (unknown) (unknown) (no date) (unknown) (unknown) ABG HCO3 31 H (23-27 ) mmol/L (units unknown) (unknown) (unknown) (no date) (unknown) (unknown) ABG O2 Saturation (95-100) % (units unknown) (unknown) (unknown) (no date) (unknown) (unknown) ABG O2 Saturation 94 L (95-100) % (units unknown) (unknown) (unknown) (no date) (unknown) (unknown) ABG Total CO2 (23-27 ) mmol/L (units unknown) (unknown) (unknown) (no date) (unknown) (unknown) ABG Total CO2 32 H (23-27) mmol/L (units unknown) (unknown) (unknown) (no date) (unknown) (unknown) ABG pCO2 (35-45) mmHg (units unknown) (unknown) (unknown) (no date) (unknown) (unknown) ABG pCO2 46.9 H (35-45) mmHg (units unknown) (unknown) (unknown) (no date) (unknown) (unknown) ABG pH (7.35-7.45) (units unknown) (unknown) (unknown) (no date) (unknown) (unknown) ABG pH 7.42 (7.35-7.45) (units unknown) (unknown) (unknown) (no date) (unknown) (unknown) ABG pO2 (80-100) mmHg (units unknown) (unknown) (unknown) (no date) (unknown) (unknown) ABG pO2 70 L (80-100 ) mmHg (units unknown) (unknown) (unknown) (no date) (unknown) (unknown) ALT (<35) IU/L (units unknown) (unknown) (unknown) (no date) (unknown) (unknown) ALT 19 (<35) IU/L (units unknown) (unknown) (unknown) (no date) (unknown) (unknown) APTT (26-36) SECONDS (units unknown) (unknown) (unknown) (no date) (unknown) (unknown) APTT 23 L (26-36) SECONDS (units unknown) (unknown) (unknown) (no date) (unknown) (unknown) AST (14-36) IU/L (units unknown) (unknown) (unknown) (no date) (unknown) (unknown) AST 20 (14-36) IU/L (units unknown) (unknown) (unknown) (no date) (unknown) (unknown) Acute CHF (units unknown) (unknown) (unknown) (no date) (unknown) (unknown) Age/Sex: 57 / F (units unknown) (unknown) (unknown) (no date) (unknown) (unknown) Albumin (3.5-5.0) g/dL (units unknown) (unknown) (unknown) (no date) (unknown) (unknown) Albumin 3.8 (3.5-5.0 ) g/dL (units unknown) (unknown) (unknown) (no date) (unknown) (unknown) Albumin/Globulin Ratio (1.0-2.8) (units unknown) (unknown) (unknown) (no date) (unknown) (unknown) Albumin/Globulin Ratio 1.3 (1.0-2.8) (units unknown) (unknown) (unknown) (no date) (unknown) (unknown) Alkaline Phosphatase (38-126) U/L (units unknown) (unknown) (unknown) (no date) (unknown) (unknown) Alkaline Phosphatase 81 (38-126) U/L (units unknown) (unknown) (unknown) (no date) (unknown) (unknown) Allergies (units unknown) (unknown) (unknown) (no date) (unknown) (unknown) Allergy/AdvReac Type Severity Reaction Status Date / Time (units unknown) (unknown) (unknown) (no date) (unknown) (unknown) Approved by: Mattie Way M.D. on 09/06/2022 at 17:03 ? (units unknown) (unknown) (unknown) (no date) (unknown) (unknown) Arterial Blood Gas Stat (units unknown) (unknown) (unknown) (no date) (unknown) (unknown) BACK: Nontender without deformity or crepitance. No flank tenderness. (units unknown) (unknown) (unknown) (no date) (unknown) (unknown) BNP. (units unknown) (unknown) (unknown) (no date) (unknown) (unknown) BUN (7-17) mg/dL (units unknown) (unknown) (unknown) (no date) (unknown) (unknown) BUN 26 H (7-17) mg/dL (units unknown) (unknown) (unknown) (no date) (unknown) (unknown) BUN/Creatinine Ratio (6-22) (units unknown) (unknown) (unknown) (no date) (unknown) (unknown) BUN/Creatinine Ratio 20.2 (6-22) (units unknown) (unknown) (unknown) (no date) (unknown) (unknown) Baso # (Auto) (0-100 ) /uL (units unknown) (unknown) (unknown) (no date) (unknown) (unknown) Baso # (Auto) 100 (0-100) /uL (units unknown) (unknown) (unknown) (no date) (unknown) (unknown) Baso % (Auto) (0-2) % (units unknown) (unknown) (unknown) (no date) (unknown) (unknown) Baso % (Auto) 1.0 (0-2) % (units unknown) (unknown) (unknown) (no date) (unknown) (unknown) Blood Pressure 100/4 9 L 104/52 L (units unknown) (unknown) (unknown) (no date) (unknown) (unknown) Blood Pressure 102/7 1 150/71 H (units unknown) (unknown) (unknown) (no date) (unknown) (unknown) Blood Pressure 104/4 8 L (units unknown) (unknown) (unknown) (no date) (unknown) (unknown) Blood Pressure 109/5 3 L 116/66 (units unknown) (unknown) (unknown) (no date) (unknown) (unknown) Blood Pressure 110/5 3 L 96/54 L (units unknown) (unknown) (unknown) (no date) (unknown) (unknown) Blood Pressure 112/5 4 L (units unknown) (unknown) (unknown) (no date) (unknown) (unknown) Blood Pressure 115/5 8 L (units unknown) (unknown) (unknown) (no date) (unknown) (unknown) Blood Pressure 126/6 0 132/74 (units unknown) (unknown) (unknown) (no date) (unknown) (unknown) Blood Pressure 130/60 (units unknown) (unknown) (unknown) (no date) (unknown) (unknown) Blood Pressure 132/6 2 141/61 H (units unknown) (unknown) (unknown) (no date) (unknown) (unknown) Blood Pressure 140/6 7 137/70 (units unknown) (unknown) (unknown) (no date) (unknown) (unknown) Blood Pressure 158/8 5 H (units unknown) (unknown) (unknown) (no date) (unknown) (unknown) Blood Pressure 165/108 H (units unknown) (unknown) (unknown) (no date) (unknown) (unknown) Blood Pressure 72/43 L (units unknown) (unknown) (unknown) (no date) (unknown) (unknown) Blood Pressure 76/42 L 93/54 L (units unknown) (unknown) (unknown) (no date) (unknown) (unknown) Blood Pressure 83/51 L 71/46 L (units unknown) (unknown) (unknown) (no date) (unknown) (unknown) Blood Pressure 93/54 L (units unknown) (unknown) (unknown) (no date) (unknown) (unknown) Blood Pressure (units unknown) (unknown) (unknown) (no date) (unknown) (unknown) CARDIOVASCULAR: Irregular rhythm (units unknown) (unknown) (unknown) (no date) (unknown) (unknown) CARDIOVASCULAR: see HPI (units unknown) (unknown) (unknown) (no date) (unknown) (unknown) CK-MB (CK-2) Rel Index TNP (units unknown) (unknown) (unknown) (no date) (unknown) (unknown) CK-MB (CK-2) Rel Index (units unknown) (unknown) (unknown) (no date) (unknown) (unknown) CK-MB (CK-2) TNP (units unknown) (unknown) (unknown) (no date) (unknown) (unknown) CK-MB (CK-2) (units unknown) (unknown) (unknown) (no date) (unknown) (unknown) COPD (chronic obstructive pulmonary disease) (units unknown) (unknown) (unknown) (no date) (unknown) (unknown) Calcium (8.4-10.2) mg/dL (units unknown) (unknown) (unknown) (no date) (unknown) (unknown) Calcium 9.0 (8.4-10.2) mg/dL (units unknown) (unknown) (unknown) (no date) (unknown) (unknown) Carbon Dioxide (22-32) mmol/L (units unknown) (unknown) (unknown) (no date) (unknown) (unknown) Carbon Dioxide 35 H (22-32) mmol/L (units unknown) (unknown) (unknown) (no date) (unknown) (unknown) Chest [XR chest 1V] Stat (units unknown) (unknown) (unknown) (no date) (unknown) (unknown) Chest x-ray: (units unknown) (unknown) (unknown) (no date) (unknown) (unknown) Chief complaint: Shortness of Breath/Dyspnea (units unknown) (unknown) (unknown) (no date) (unknown) (unknown) Chloride (98-107) mmol/L (units unknown) (unknown) (unknown) (no date) (unknown) (unknown) Chloride 100 (98-107 ) mmol/L (units unknown) (unknown) (unknown) (no date) (unknown) (unknown) Clinical Impression: (units unknown) (unknown) (unknown) (no date) (unknown) (unknown) Complete Blood Count AUTO DIFF Stat (units unknown) (unknown) (unknown) (no date) (unknown) (unknown) Comprehensive Metabolic Panel Stat (units unknown) (unknown) (unknown) (no date) (unknown) (unknown) Consultation #1: (units unknown) (unknown) (unknown) (no date) (unknown) (unknown) Consultations (units unknown) (unknown) (unknown) (no date) (unknown) (unknown) Correlate with (units unknown) (unknown) (unknown) (no date) (unknown) (unknown) Course (units unknown) (unknown) (unknown) (no date) (unknown) (unknown) Creatinine (0.52-1.04) mg/dL (units unknown) (unknown) (unknown) (no date) (unknown) (unknown) Creatinine 1.29 H (0.52-1.04) mg/dL (units unknown) (unknown) (unknown) (no date) (unknown) (unknown) : 1965 Acct:[id number] (units unknown) (unknown) (unknown) (no date) (unknown) (unknown) Date of Service: 09/06/22 (units unknown) (unknown) (unknown) (no date) (unknown) (unknown) Departure (units unknown) (unknown) (unknown) (no date) (unknown) (unknown) Dictated by: Mattie Way M.D. on 09/06/2022 at 17:01 ? ? (units unknown) (unknown) (unknown) (no date) (unknown) (unknown) Discharge Plan (units unknown) (unknown) (unknown) (no date) (unknown) (unknown) Discontinued Medications (units unknown) (unknown) (unknown) (no date) (unknown) (unknown) ED Orders (units unknown) (unknown) (unknown) (no date) (unknown) (unknown) EKG-12 Lead Stat (units unknown) (unknown) (unknown) (no date) (unknown) (unknown) ENT: Nose without bleeding, purulent drainage. Throat without erythema, (units unknown) (unknown) (unknown) (no date) (unknown) (unknown) ER Physician: Aristeo Xiong D.O. (units unknown) (unknown) (unknown) (no date) (unknown) (unknown) EXTREMITIES: No valdo a or joint tenderness. (units unknown) (unknown) (unknown) (no date) (unknown) (unknown) EYES: Pupils equal round and reactive. Extraocular motions intact. No scleral (units unknown) (unknown) (unknown) (no date) (unknown) (unknown) Emergency Report (units unknown) (unknown) (unknown) (no date) (unknown) (unknown) Eos # (Auto) (0-450) /uL (units unknown) (unknown) (unknown) (no date) (unknown) (unknown) Eos # (Auto) 100 (0-450) /uL (units unknown) (unknown) (unknown) (no date) (unknown) (unknown) Eos % (Auto) (2-4) % (units unknown) (unknown) (unknown) (no date) (unknown) (unknown) Eos % (Auto) 1.1 L (2-4) % (units unknown) (unknown) (unknown) (no date) (unknown) (unknown) Estimated GFR (>60) mL/min (units unknown) (unknown) (unknown) (no date) (unknown) (unknown) Estimated GFR 48 L (>60) mL/min (units unknown) (unknown) (unknown) (no date) (unknown) (unknown) Exam Narrative: (units unknown) (unknown) (unknown) (no date) (unknown) (unknown) Exam (units unknown) (unknown) (unknown) (no date) (unknown) (unknown) FiO2 32 (units unknown) (unknown) (unknown) (no date) (unknown) (unknown) FiO2 (units unknown) (unknown) (unknown) (no date) (unknown) (unknown) Fish Containing Products Allergy Severe Anaphylaxis Verified 07/27/22 13:29 (units unknown) (unknown) (unknown) (no date) (unknown) (unknown) Furosemide (Furosemide 40 Mg/4 Ml Vial) 40 mg IV NOW ONE (units unknown) (unknown) (unknown) (no date) (unknown) (unknown) GASTROINTESTINAL: Abdomen soft, non-tender, nondistended. (units unknown) (unknown) (unknown) (no date) (unknown) (unknown) GASTROINTESTINAL: Denies nausea, vomiting, abdominal pain, diarrhea, (units unknown) (unknown) (unknown) (no date) (unknown) (unknown) GENERAL: [57] year old patient appears stated age. Well-developed patient, in (units unknown) (unknown) (unknown) (no date) (unknown) (unknown) GENERAL: see HPI. (units unknown) (unknown) (unknown) (no date) (unknown) (unknown) : Denies dysuria, frequency, incontinence, hematuria, urinary retention. (units unknown) (unknown) (unknown) (no date) (unknown) (unknown) General (units unknown) (unknown) (unknown) (no date) (unknown) (unknown) Globulin (1.7-4.1) g/dL (units unknown) (unknown) (unknown) (no date) (unknown) (unknown) Globulin 2.9 (1.7-4.1) g/dL (units unknown) (unknown) (unknown) (no date) (unknown) (unknown) Glucose (70-100) mg/dL (units unknown) (unknown) (unknown) (no date) (unknown) (unknown) Glucose 89 (70-100) mg/dL (units unknown) (unknown) (unknown) (no date) (unknown) (unknown) HEAD: Atraumatic. Normocephalic. (units unknown) (unknown) (unknown) (no date) (unknown) (unknown) HEENT: Denies sinus pain, ear pain, sore throat, difficulty swallowing, (units unknown) (unknown) (unknown) (no date) (unknown) (unknown) HPI - General Adult (units unknown) (unknown) (unknown) (no date) (unknown) (unknown) HPI narrative: (units unknown) (unknown) (unknown) (no date) (unknown) (unknown) Hct (36-46) % (units unknown) (unknown) (unknown) (no date) (unknown) (unknown) Hct 42.1 (36-46) % (units unknown) (unknown) (unknown) (no date) (unknown) (unknown) Hgb (12.0-16.0) g/dL (units unknown) (unknown) (unknown) (no date) (unknown) (unknown) Hgb 14.5 (12.0-16.0) g/dL (units unknown) (unknown) (unknown) (no date) (unknown) (unknown) History of Present Illness (units unknown) (unknown) (unknown) (no date) (unknown) (unknown) Home Medications (units unknown) (unknown) (unknown) (no date) (unknown) (unknown) IMPRESSION:? (units unknown) (unknown) (unknown) (no date) (unknown) (unknown) INR (0.9-1.3) (units unknown) (unknown) (unknown) (no date) (unknown) (unknown) INR 1.3 (0.9-1.3) (units unknown) (unknown) (unknown) (no date) (unknown) (unknown) Imaging Data (units unknown) (unknown) (unknown) (no date) (unknown) (unknown) Initial Vital Signs (units unknown) (unknown) (unknown) (no date) (unknown) (unknown) Initial Vital Signs: (units unknown) (unknown) (unknown) (no date) (unknown) (unknown) [address] [address] (units unknown) (unknown) (unknown) (no date) (unknown) (unknown) Lab Data (units unknown) (unknown) (unknown) (no date) (unknown) (unknown) Lab Results (units unknown) (unknown) (unknown) (no date) (unknown) (unknown) Labs: (units unknown) (unknown) (unknown) (no date) (unknown) (unknown) Lactate (0.7-2.1) mmol/L (units unknown) (unknown) (unknown) (no date) (unknown) (unknown) Lactate (Lactic Acid ) Stat (units unknown) (unknown) (unknown) (no date) (unknown) (unknown) Lactate 1.0 (0.7-2.1 ) mmol/L (units unknown) (unknown) (unknown) (no date) (unknown) (unknown) Last Admin: 09/06/22 18:22 Dose: 125 mg (units unknown) (unknown) (unknown) (no date) (unknown) (unknown) Lipase (23-300) U/L (units unknown) (unknown) (unknown) (no date) (unknown) (unknown) Lipase 80 (23-300) U/L (units unknown) (unknown) (unknown) (no date) (unknown) (unknown) Lipase Stat (units unknown) (unknown) (unknown) (no date) (unknown) (unknown) Lymph # (Auto) (2599-5357) /uL (units unknown) (unknown) (unknown) (no date) (unknown) (unknown) Lymph # (Auto) 2700 (2019-2875) /uL (units unknown) (unknown) (unknown) (no date) (unknown) (unknown) Lymph % (Auto) (25-40) % (units unknown) (unknown) (unknown) (no date) (unknown) (unknown) Lymph % (Auto) 26.3 (25-40) % (units unknown) (unknown) (unknown) (no date) (unknown) (unknown) MCH (26-34) PG (units unknown) (unknown) (unknown) (no date) (unknown) (unknown) MCH 32.5 (26-34) PG (units unknown) (unknown) (unknown) (no date) (unknown) (unknown) MCHC (30-36) % (units unknown) (unknown) (unknown) (no date) (unknown) (unknown) MCHC 34.6 (30-36) % (units unknown) (unknown) (unknown) (no date) (unknown) (unknown) MCV (80-100) fL (units unknown) (unknown) (unknown) (no date) (unknown) (unknown) MCV 93.9 (80-100) fL (units unknown) (unknown) (unknown) (no date) (unknown) (unknown) MUSCULOSKELETAL: denies weakness, joint pain, or bony pain (units unknown) (unknown) (unknown) (no date) (unknown) (unknown) Magnesium (1.6-2.3) mg/dL (units unknown) (unknown) (unknown) (no date) (unknown) (unknown) Magnesium 1.9 (1.6-2.3) mg/dL (units unknown) (unknown) (unknown) (no date) (unknown) (unknown) Magnesium Stat (units unknown) (unknown) (unknown) (no date) (unknown) (unknown) Medical Decision Making (units unknown) (unknown) (unknown) (no date) (unknown) (unknown) Medical History (units unknown) (unknown) (unknown) (no date) (unknown) (unknown) Medication Instructions Recorded Confirmed (units unknown) (unknown) (unknown) (no date) (unknown) (unknown) Medication Instructions Recorded (units unknown) (unknown) (unknown) (no date) (unknown) (unknown) Methylprednisolone (Methylprednisolone 125 Mg/2 Ml Vial) 125 mg IV NOW ONE (units unknown) (unknown) (unknown) (no date) (unknown) (unknown) [place] # (Auto) (0-900 ) /uL (units unknown) (unknown) (unknown) (no date) (unknown) (unknown) [place] # (Auto) 1000 H (0-900) /uL (units unknown) (unknown) (unknown) (no date) (unknown) (unknown) [place] % (Auto) (3-14) % (units unknown) (unknown) (unknown) (no date) (unknown) (unknown) [place] % (Auto) 9.6 (3-14) % (units unknown) (unknown) (unknown) (no date) (unknown) (unknown) NECK: Trachea midline. Non tender (units unknown) (unknown) (unknown) (no date) (unknown) (unknown) NEURO: AOx3. (units unknown) (unknown) (unknown) (no date) (unknown) (unknown) NEUROLOGIC: Denies weakness, headache, numbness, change in speech, confusion, (units unknown) (unknown) (unknown) (no date) (unknown) (unknown) NO need for transfer (units unknown) (unknown) (unknown) (no date) (unknown) (unknown) NT-Pro-B Natriuret Pep (<125) pg/mL (units unknown) (unknown) (unknown) (no date) (unknown) (unknown) NT-Pro-B Natriuret Pep 1250 H (<125) pg/mL (units unknown) (unknown) (unknown) (no date) (unknown) (unknown) NT-proBNP (BNP-Adult 18+) Stat (units unknown) (unknown) (unknown) (no date) (unknown) (unknown) Narrative (units unknown) (unknown) (unknown) (no date) (unknown) (unknown) Narrative: (units unknown) (unknown) (unknown) (no date) (unknown) (unknown) Neut # (Auto) (2815-1632) /uL (units unknown) (unknown) (unknown) (no date) (unknown) (unknown) Neut # (Auto) 6300 (2093-8398) /uL (units unknown) (unknown) (unknown) (no date) (unknown) (unknown) Neut % (Auto) (50-75 ) % (units unknown) (unknown) (unknown) (no date) (unknown) (unknown) Neut % (Auto) 62.0 (50-75) % (units unknown) (unknown) (unknown) (no date) (unknown) (unknown) Ordered: (units unknown) (unknown) (unknown) (no date) (unknown) (unknown) Orders (units unknown) (unknown) (unknown) (no date) (unknown) (unknown) Oxygen Delivery Method Nasal Cannula (units unknown) (unknown) (unknown) (no date) (unknown) (unknown) Oxygen Delivery Method (units unknown) (unknown) (unknown) (no date) (unknown) (unknown) Oxygen Flow Rate 3 (units unknown) (unknown) (unknown) (no date) (unknown) (unknown) Oxygen Flow Rate (units unknown) (unknown) (unknown) (no date) (unknown) (unknown) PSYCHIATRIC: No concerning psychosocial issues. (units unknown) (unknown) (unknown) (no date) (unknown) (unknown) PT (10.1-12.7) SECONDS (units unknown) (unknown) (unknown) (no date) (unknown) (unknown) PT 15.5 H (10.1-12.7 ) SECONDS (units unknown) (unknown) (unknown) (no date) (unknown) (unknown) PTT Partial Thromboplastin Efrem Stat (units unknown) (unknown) (unknown) (no date) (unknown) (unknown) Patient Disposition: Admitted as Observation (units unknown) (unknown) (unknown) (no date) (unknown) (unknown) Patient History (units unknown) (unknown) (unknown) (no date) (unknown) (unknown) Patient: Ester Benavides MR#: [id number] (units unknown) (unknown) (unknown) (no date) (unknown) (unknown) Plt Count (150-400) X103/uL (units unknown) (unknown) (unknown) (no date) (unknown) (unknown) Plt Count 232 (150-400) X103/uL (units unknown) (unknown) (unknown) (no date) (unknown) (unknown) Potassium (3.4-5.1) mmol/L (units unknown) (unknown) (unknown) (no date) (unknown) (unknown) Potassium 3.4 (3.4-5.1) mmol/L (units unknown) (unknown) (unknown) (no date) (unknown) (unknown) Previous Rx's (units unknown) (unknown) (unknown) (no date) (unknown) (unknown) Procalcitonin (<0.5) ng/mL (units unknown) (unknown) (unknown) (no date) (unknown) (unknown) Procalcitonin 0.06 (<0.5) ng/mL (units unknown) (unknown) (unknown) (no date) (unknown) (unknown) Procalcitonin Stat (units unknown) (unknown) (unknown) (no date) (unknown) (unknown) Prothrombin Time INR Stat (units unknown) (unknown) (unknown) (no date) (unknown) (unknown) Pulse Oximetry 100 97 (units unknown) (unknown) (unknown) (no date) (unknown) (unknown) Pulse Oximetry 82 L (units unknown) (unknown) (unknown) (no date) (unknown) (unknown) Pulse Oximetry 93 94 (units unknown) (unknown) (unknown) (no date) (unknown) (unknown) Pulse Oximetry 93 96 (units unknown) (unknown) (unknown) (no date) (unknown) (unknown) Pulse Oximetry 94 (units unknown) (unknown) (unknown) (no date) (unknown) (unknown) Pulse Oximetry 95 (units unknown) (unknown) (unknown) (no date) (unknown) (unknown) Pulse Oximetry 96 98 (units unknown) (unknown) (unknown) (no date) (unknown) (unknown) Pulse Oximetry 96 (units unknown) (unknown) (unknown) (no date) (unknown) (unknown) Pulse Oximetry 97 96 (units unknown) (unknown) (unknown) (no date) (unknown) (unknown) Pulse Oximetry 97 97 (units unknown) (unknown) (unknown) (no date) (unknown) (unknown) Pulse Oximetry 98 09/06/22 16:39 (units unknown) (unknown) (unknown) (no date) (unknown) (unknown) Pulse Oximetry 98 97 (units unknown) (unknown) (unknown) (no date) (unknown) (unknown) Pulse Oximetry 98 98 (units unknown) (unknown) (unknown) (no date) (unknown) (unknown) Pulse Oximetry 98 (units unknown) (unknown) (unknown) (no date) (unknown) (unknown) Pulse Oximetry 99 98 98 (units unknown) (unknown) (unknown) (no date) (unknown) (unknown) Pulse Oximetry 99 98 (units unknown) (unknown) (unknown) (no date) (unknown) (unknown) Pulse Oximetry 99 (units unknown) (unknown) (unknown) (no date) (unknown) (unknown) Pulse Rate 44 L 09/06/22 16:39 (units unknown) (unknown) (unknown) (no date) (unknown) (unknown) Pulse Rate 78 (units unknown) (unknown) (unknown) (no date) (unknown) (unknown) Pulse Rate 79 77 78 (units unknown) (unknown) (unknown) (no date) (unknown) (unknown) Pulse Rate 79 (units unknown) (unknown) (unknown) (no date) (unknown) (unknown) Pulse Rate 80 44 L 80 (units unknown) (unknown) (unknown) (no date) (unknown) (unknown) Pulse Rate 80 (units unknown) (unknown) (unknown) (no date) (unknown) (unknown) Pulse Rate 81 78 (units unknown) (unknown) (unknown) (no date) (unknown) (unknown) Pulse Rate 81 80 (units unknown) (unknown) (unknown) (no date) (unknown) (unknown) Pulse Rate 82 73 (units unknown) (unknown) (unknown) (no date) (unknown) (unknown) Pulse Rate 82 82 (units unknown) (unknown) (unknown) (no date) (unknown) (unknown) Pulse Rate 83 80 (units unknown) (unknown) (unknown) (no date) (unknown) (unknown) Pulse Rate 84 (units unknown) (unknown) (unknown) (no date) (unknown) (unknown) Pulse Rate 85 83 (units unknown) (unknown) (unknown) (no date) (unknown) (unknown) Pulse Rate 86 (units unknown) (unknown) (unknown) (no date) (unknown) (unknown) Pulse Rate 93 H 82 (units unknown) (unknown) (unknown) (no date) (unknown) (unknown) Pulse Rate 94 H 82 (units unknown) (unknown) (unknown) (no date) (unknown) (unknown) Pulse Rate 96 H (units unknown) (unknown) (unknown) (no date) (unknown) (unknown) RBC (4.0-5.2) X106/uL (units unknown) (unknown) (unknown) (no date) (unknown) (unknown) RBC 4.48 (4.0-5.2) X106/uL (units unknown) (unknown) (unknown) (no date) (unknown) (unknown) RDW (11.6-14.8) % (units unknown) (unknown) (unknown) (no date) (unknown) (unknown) RDW 14.8 (11.6-14.8) % (units unknown) (unknown) (unknown) (no date) (unknown) (unknown) RESPIRATORY: prolonged expiratory phase with decreased breath sounds (units unknown) (unknown) (unknown) (no date) (unknown) (unknown) RESPIRATORY: see HPI (units unknown) (unknown) (unknown) (no date) (unknown) (unknown) Radiologist's Impression: (units unknown) (unknown) (unknown) (no date) (unknown) (unknown) Related Data (units unknown) (unknown) (unknown) (no date) (unknown) (unknown) Respiratory Panel (Film Array) Stat (units unknown) (unknown) (unknown) (no date) (unknown) (unknown) Respiratory Rate 24 29 H (units unknown) (unknown) (unknown) (no date) (unknown) (unknown) Respiratory Rate 24 (units unknown) (unknown) (unknown) (no date) (unknown) (unknown) Respiratory Rate 25 H (units unknown) (unknown) (unknown) (no date) (unknown) (unknown) Respiratory Rate 26 H (units unknown) (unknown) (unknown) (no date) (unknown) (unknown) Respiratory Rate 27 H (units unknown) (unknown) (unknown) (no date) (unknown) (unknown) Respiratory Rate 28 H 28 H (units unknown) (unknown) (unknown) (no date) (unknown) (unknown) Respiratory Rate 28 H 29 H (units unknown) (unknown) (unknown) (no date) (unknown) (unknown) Respiratory Rate 28 H (units unknown) (unknown) (unknown) (no date) (unknown) (unknown) Respiratory Rate 29 H 25 H (units unknown) (unknown) (unknown) (no date) (unknown) (unknown) Respiratory Rate 29 H 33 H (units unknown) (unknown) (unknown) (no date) (unknown) (unknown) Respiratory Rate 29 H 35 H 39 H (units unknown) (unknown) (unknown) (no date) (unknown) (unknown) Respiratory Rate 29 H (units unknown) (unknown) (unknown) (no date) (unknown) (unknown) Respiratory Rate 30 H (units unknown) (unknown) (unknown) (no date) (unknown) (unknown) Respiratory Rate 32 H 31 H (units unknown) (unknown) (unknown) (no date) (unknown) (unknown) Respiratory Rate 33 H 35 H (units unknown) (unknown) (unknown) (no date) (unknown) (unknown) Respiratory Rate 35 H 29 H (units unknown) (unknown) (unknown) (no date) (unknown) (unknown) Respiratory Rate 35 H 33 H (units unknown) (unknown) (unknown) (no date) (unknown) (unknown) Respiratory Rate 36 H (units unknown) (unknown) (unknown) (no date) (unknown) (unknown) Respiratory Rate 41 H (units unknown) (unknown) (unknown) (no date) (unknown) (unknown) Review of Systems (units unknown) (unknown) (unknown) (no date) (unknown) (unknown) SKIN: Denies rash, skin lesions, or other (units unknown) (unknown) (unknown) (no date) (unknown) (unknown) SKIN: No rash or erythema of visible areas (units unknown) (unknown) (unknown) (no date) (unknown) (unknown) She is had no recent travel, change in medications, doses or diet. (units unknown) (unknown) (unknown) (no date) (unknown) (unknown) Signed By: (units unknown) (unknown) (unknown) (no date) (unknown) (unknown) Smoking Status: Current every day smoker (units unknown) (unknown) (unknown) (no date) (unknown) (unknown) Social History (units unknown) (unknown) (unknown) (no date) (unknown) (unknown) Sodium (137-145) mmol/L (units unknown) (unknown) (unknown) (no date) (unknown) (unknown) Sodium 140 (137-145) mmol/L (units unknown) (unknown) (unknown) (no date) (unknown) (unknown) Stated complaint: SO B monday/ [place] (units unknown) (unknown) (unknown) (no date) (unknown) (unknown) Stop: 09/06/22 16:36 (units unknown) (unknown) (unknown) (no date) (unknown) (unknown) Stop: 09/06/22 18:43 (units unknown) (unknown) (unknown) (no date) (unknown) (unknown) Substance Use Type: does not use (units unknown) (unknown) (unknown) (no date) (unknown) (unknown) Time Seen by Provider: 09/06/22 16:31 (units unknown) (unknown) (unknown) (no date) (unknown) (unknown) Total Bilirubin (0.2-1.3) mg/dL (units unknown) (unknown) (unknown) (no date) (unknown) (unknown) Total Bilirubin 0.5 (0.2-1.3) mg/dL (units unknown) (unknown) (unknown) (no date) (unknown) (unknown) Total Creatine [place] e < 20 L (30-135) U/L (units unknown) (unknown) (unknown) (no date) (unknown) (unknown) Total Creatine [place] e (30-135) U/L (units unknown) (unknown) (unknown) (no date) (unknown) (unknown) Total Protein (6.3-8.2) g/dL (units unknown) (unknown) (unknown) (no date) (unknown) (unknown) Total Protein 6.7 (6.3-8.2) g/dL (units unknown) (unknown) (unknown) (no date) (unknown) (unknown) Troponin + CK Cardia c Panel Stat (units unknown) (unknown) (unknown) (no date) (unknown) (unknown) Troponin I (0.01-0.034) ng/mL (units unknown) (unknown) (unknown) (no date) (unknown) (unknown) Troponin I 0.013 (0.01-0.034) ng/mL (units unknown) (unknown) (unknown) (no date) (unknown) (unknown) Urinalysis and Microscopic Stat (units unknown) (unknown) (unknown) (no date) (unknown) (unknown) Vital Signs - 8 hr (units unknown) (unknown) (unknown) (no date) (unknown) (unknown) Vital Signs (units unknown) (unknown) (unknown) (no date) (unknown) (unknown) Vital signs: (units unknown) (unknown) (unknown) (no date) (unknown) (unknown) WBC (4.5-11.0) X103/uL (units unknown) (unknown) (unknown) (no date) (unknown) (unknown) WBC 10.2 (4.5-11.0) X103/uL (units unknown) (unknown) (unknown) (no date) (unknown) (unknown) [Embedded Image Not Available] (units unknown) (unknown) (unknown) (no date) (unknown) (unknown) acetaminophen [From [facility]] Allergy Verified 07/06/21 13:33 (units unknown) (unknown) (unknown) (no date) (unknown) (unknown) activated powder inhaler (units unknown) (unknown) (unknown) (no date) (unknown) (unknown) aerosol inhaler (Ventolin HFA) Shortness Of Breath (units unknown) (unknown) (unknown) (no date) (unknown) (unknown) albuterol sulfate 90 mcg/actuation 2 puff inhalation QID PRN 07/25/22 07/25/22 (units unknown) (unknown) (unknown) (no date) (unknown) (unknown) amiodarone 200 mg tablet 100 mg PO DAILY 07/25/22 07/25/22 (units unknown) (unknown) (unknown) (no date) (unknown) (unknown) apixaban 5 mg tablet (Eliquis) 5 mg PO BID 07/25/22 07/25/22 (units unknown) (unknown) (unknown) (no date) (unknown) (unknown) bee pollen Allergy Severe Anaphylaxis Verified 07/28/22 10:43 (units unknown) (unknown) (unknown) (no date) (unknown) (unknown) budesonide 90 mcg/actuation breath 2 inh inhalation BID 07/25/22 07/25/22 (units unknown) (unknown) (unknown) (no date) (unknown) (unknown) codeine Allergy Verified 07/06/21 13:34 (units unknown) (unknown) (unknown) (no date) (unknown) (unknown) constipation, melena. (units unknown) (unknown) (unknown) (no date) (unknown) (unknown) denies any runny nose, sore throat and has had a harsh wet sounding cough she (units unknown) (unknown) (unknown) (no date) (unknown) (unknown) discussed with Dr. Butler. Recommends diuresis, [facility]. (units unknown) (unknown) (unknown) (no date) (unknown) (unknown) dizziness. (units unknown) (unknown) (unknown) (no date) (unknown) (unknown) doxycycline AdvReac Vomiting Verified 07/28/22 10:43 (units unknown) (unknown) (unknown) (no date) (unknown) (unknown) erythromycin base Allergy Verified 07/06/21 13:34 (units unknown) (unknown) (unknown) (no date) (unknown) (unknown) furosemide 40 mg tablet 40 mg PO BID 07/25/22 07/25/22 (units unknown) (unknown) (unknown) (no date) (unknown) (unknown) glipizide 5 mg tablet, extended 5 mg PO DAILY #30 tabs 07/28/22 (units unknown) (unknown) (unknown) (no date) (unknown) (unknown) her oxygen more ofte n than normal. She denies nausea, vomiting or diarrhea. (units unknown) (unknown) (unknown) (no date) (unknown) (unknown) household members: spouse (units unknown) (unknown) (unknown) (no date) (unknown) (unknown) hydrocodone 5 mg-acetaminophen 325 1 tab PO Q6H PRN Pain (Scale Score 07/25/22 (units unknown) (unknown) (unknown) (no date) (unknown) (unknown) icterus. No injectio n or drainage. (units unknown) (unknown) (unknown) (no date) (unknown) (unknown) iodine Allergy Rash Verified 07/27/22 13:32 (units unknown) (unknown) (unknown) (no date) (unknown) (unknown) latex Allergy Rash Verified 07/27/22 13:29 (units unknown) (unknown) (unknown) (no date) (unknown) (unknown) lisinopril 5 mg tablet 5 mg PO DAILY 07/25/22 07/25/22 (units unknown) (unknown) (unknown) (no date) (unknown) (unknown) lives independently: Yes (units unknown) (unknown) (unknown) (no date) (unknown) (unknown) metoprolol succinate 100 mg 100 mg PO BID 07/25/22 07/25/22 (units unknown) (unknown) (unknown) (no date) (unknown) (unknown) mg tablet 4-6) (units unknown) (unknown) (unknown) (no date) (unknown) (unknown) mild distress. (units unknown) (unknown) (unknown) (no date) (unknown) (unknown) montelukast 10 mg tablet 10 mg PO DAILY 07/25/22 07/25/22 (units unknown) (unknown) (unknown) (no date) (unknown) (unknown) oxycodone 5 mg table t 5 mg PO Q4HR PRN pain #20 tabs 07/28/22 (units unknown) (unknown) (unknown) (no date) (unknown) (unknown) tereza [From [facility] ] Allergy Verified 07/06/21 13:33 (units unknown) (unknown) (unknown) (no date) (unknown) (unknown) prednisone 20 mg tablet 40 mg PO DAILY #3 tabs 07/28/22 (units unknown) (unknown) (unknown) (no date) (unknown) (unknown) prednisone 5 mg tablet 5 mg PO DAILY #3 tabs 07/28/22 (units unknown) (unknown) (unknown) (no date) (unknown) (unknown) presents by EMS with worsening shortness of breath over the past 3-4 days. She (units unknown) (unknown) (unknown) (no date) (unknown) (unknown) release 24 hr (Glucotrol XL) (units unknown) (unknown) (unknown) (no date) (unknown) (unknown) seizures, incoordination. (units unknown) (unknown) (unknown) (no date) (unknown) (unknown) shellfish derived Allergy Severe Anaphylaxis Verified 07/28/22 10:43 (units unknown) (unknown) (unknown) (no date) (unknown) (unknown) short of breath with exertion and lying flat and admits that she is been using (units unknown) (unknown) (unknown) (no date) (unknown) (unknown) spironolactone 25 mg tablet 25 mg PO DAILY 07/25/22 07/25/22 (units unknown) (unknown) (unknown) (no date) (unknown) (unknown) states for many year s and it is no different than normal. She becomes more (units unknown) (unknown) (unknown) (no date) (unknown) (unknown) tablet,extended release 24 hr (units unknown) (unknown) (unknown) (no date) (unknown) (unknown) throughout, perhaps faint crackles in bilateral bases (units unknown) (unknown) (unknown) (no date) (unknown) (unknown) tonsillar hypertroph y or exudate. Airway patent. (units unknown) (unknown) Result panel [id number] (unknown) (no date) (unknown) (unknown) (no value) (units unknown) (unknown) (unknown) (no date) (unknown) (unknown) 07/25/22 (units unknown) (unknown) (unknown) (no date) (unknown) (unknown) 09/06/22 09/06/22 09/06/22 Range/Units (units unknown) (unknown) (unknown) (no date) (unknown) (unknown) 09/06/22 09/06/22 Range/Units (units unknown) (unknown) (unknown) (no date) (unknown) (unknown) 09/06/22 16:35 (units unknown) (unknown) (unknown) (no date) (unknown) (unknown) 09/06/22 16:36 (units unknown) (unknown) (unknown) (no date) (unknown) (unknown) 09/06/22 17:10 (units unknown) (unknown) (unknown) (no date) (unknown) (unknown) 09/06/22 17:16 (units unknown) (unknown) (unknown) (no date) (unknown) (unknown) 09/06/22 17:30 (units unknown) (unknown) (unknown) (no date) (unknown) (unknown) 09/06/22 (units unknown) (unknown) (unknown) (no date) (unknown) (unknown) 1. Findings suggest central vascular and mild interstitial congestion.? (units unknown) (unknown) (unknown) (no date) (unknown) (unknown) 12 point review of systems is negative except for those stated above (units unknown) (unknown) (unknown) (no date) (unknown) (unknown) 16:39 09/06/22 (units unknown) (unknown) (unknown) (no date) (unknown) (unknown) 16:42 09/06/22 (units unknown) (unknown) (unknown) (no date) (unknown) (unknown) 16:42 (units unknown) (unknown) (unknown) (no date) (unknown) (unknown) 16:45 09/06/22 (units unknown) (unknown) (unknown) (no date) (unknown) (unknown) 16:45 (units unknown) (unknown) (unknown) (no date) (unknown) (unknown) 16:50 09/06/22 (units unknown) (unknown) (unknown) (no date) (unknown) (unknown) 17:00 09/06/22 (units unknown) (unknown) (unknown) (no date) (unknown) (unknown) 17:01 09/06/22 (units unknown) (unknown) (unknown) (no date) (unknown) (unknown) 17:01 (units unknown) (unknown) (unknown) (no date) (unknown) (unknown) 17:06 09/06/22 (units unknown) (unknown) (unknown) (no date) (unknown) (unknown) 17:10 09/06/22 (units unknown) (unknown) (unknown) (no date) (unknown) (unknown) 17:10 17:16 17:16 (units unknown) (unknown) (unknown) (no date) (unknown) (unknown) 17:10 (units unknown) (unknown) (unknown) (no date) (unknown) (unknown) 17:15 09/06/22 (units unknown) (unknown) (unknown) (no date) (unknown) (unknown) 17:15 (units unknown) (unknown) (unknown) (no date) (unknown) (unknown) 17:16 17:16 (units unknown) (unknown) (unknown) (no date) (unknown) (unknown) 17:21 09/06/22 (units unknown) (unknown) (unknown) (no date) (unknown) (unknown) 17:26 09/06/22 (units unknown) (unknown) (unknown) (no date) (unknown) (unknown) 17:26 (units unknown) (unknown) (unknown) (no date) (unknown) (unknown) 17:30 09/06/22 (units unknown) (unknown) (unknown) (no date) (unknown) (unknown) 17:30 (units unknown) (unknown) (unknown) (no date) (unknown) (unknown) 17:36 09/06/22 (units unknown) (unknown) (unknown) (no date) (unknown) (unknown) 17:38 09/06/22 (units unknown) (unknown) (unknown) (no date) (unknown) (unknown) 17:38 (units unknown) (unknown) (unknown) (no date) (unknown) (unknown) 17:40 09/06/22 (units unknown) (unknown) (unknown) (no date) (unknown) (unknown) 17:40 (units unknown) (unknown) (unknown) (no date) (unknown) (unknown) 17:42 09/06/22 (units unknown) (unknown) (unknown) (no date) (unknown) (unknown) 17:45 (units unknown) (unknown) (unknown) (no date) (unknown) (unknown) 17:46 09/06/22 (units unknown) (unknown) (unknown) (no date) (unknown) (unknown) 17:48 09/06/22 (units unknown) (unknown) (unknown) (no date) (unknown) (unknown) 17:48 (units unknown) (unknown) (unknown) (no date) (unknown) (unknown) 17:50 09/06/22 (units unknown) (unknown) (unknown) (no date) (unknown) (unknown) 17:50 (units unknown) (unknown) (unknown) (no date) (unknown) (unknown) 17:55 09/06/22 (units unknown) (unknown) (unknown) (no date) (unknown) (unknown) 18:00 09/06/22 (units unknown) (unknown) (unknown) (no date) (unknown) (unknown) 18:00 (units unknown) (unknown) (unknown) (no date) (unknown) (unknown) 18:05 09/06/22 (units unknown) (unknown) (unknown) (no date) (unknown) (unknown) 18:06 09/06/22 (units unknown) (unknown) (unknown) (no date) (unknown) (unknown) 18:06 (units unknown) (unknown) (unknown) (no date) (unknown) (unknown) 18:10 09/06/22 (units unknown) (unknown) (unknown) (no date) (unknown) (unknown) 18:10 (units unknown) (unknown) (unknown) (no date) (unknown) (unknown) 18:15 09/06/22 (units unknown) (unknown) (unknown) (no date) (unknown) (unknown) 18:20 09/06/22 (units unknown) (unknown) (unknown) (no date) (unknown) (unknown) 18:20 (units unknown) (unknown) (unknown) (no date) (unknown) (unknown) 18:25 09/06/22 (units unknown) (unknown) (unknown) (no date) (unknown) (unknown) 18:26 09/06/22 (units unknown) (unknown) (unknown) (no date) (unknown) (unknown) 18:26 (units unknown) (unknown) (unknown) (no date) (unknown) (unknown) 18:30 09/06/22 (units unknown) (unknown) (unknown) (no date) (unknown) (unknown) 18:30 (units unknown) (unknown) (unknown) (no date) (unknown) (unknown) 18:35 09/06/22 (units unknown) (unknown) (unknown) (no date) (unknown) (unknown) 18:40 (units unknown) (unknown) (unknown) (no date) (unknown) (unknown) [id number] (units unknown) (unknown) (unknown) (no date) (unknown) (unknown) 2. Interstitial thickening can also be seen in viral pneumonitis. (units unknown) (unknown) (unknown) (no date) (unknown) (unknown) 3. Stable cardiomegaly.? (units unknown) (unknown) (unknown) (no date) (unknown) (unknown) 57-year-old female daily smoker with history of COPD on home oxygen at 3 L (units unknown) (unknown) (unknown) (no date) (unknown) (unknown) ? (units unknown) (unknown) (unknown) (no date) (unknown) (unknown) ABG Base Excess (-2-3) mmol/L (units unknown) (unknown) (unknown) (no date) (unknown) (unknown) ABG Base Excess 6.0 H (-2-3) mmol/L (units unknown) (unknown) (unknown) (no date) (unknown) (unknown) ABG HCO3 (23-27) mmol/L (units unknown) (unknown) (unknown) (no date) (unknown) (unknown) ABG HCO3 31 H (23-27 ) mmol/L (units unknown) (unknown) (unknown) (no date) (unknown) (unknown) ABG O2 Saturation (95-100) % (units unknown) (unknown) (unknown) (no date) (unknown) (unknown) ABG O2 Saturation 94 L (95-100) % (units unknown) (unknown) (unknown) (no date) (unknown) (unknown) ABG Total CO2 (23-27 ) mmol/L (units unknown) (unknown) (unknown) (no date) (unknown) (unknown) ABG Total CO2 32 H (23-27) mmol/L (units unknown) (unknown) (unknown) (no date) (unknown) (unknown) ABG pCO2 (35-45) mmHg (units unknown) (unknown) (unknown) (no date) (unknown) (unknown) ABG pCO2 46.9 H (35-45) mmHg (units unknown) (unknown) (unknown) (no date) (unknown) (unknown) ABG pH (7.35-7.45) (units unknown) (unknown) (unknown) (no date) (unknown) (unknown) ABG pH 7.42 (7.35-7.45) (units unknown) (unknown) (unknown) (no date) (unknown) (unknown) ABG pO2 (80-100) mmHg (units unknown) (unknown) (unknown) (no date) (unknown) (unknown) ABG pO2 70 L (80-100 ) mmHg (units unknown) (unknown) (unknown) (no date) (unknown) (unknown) ALT (<35) IU/L (units unknown) (unknown) (unknown) (no date) (unknown) (unknown) ALT 19 (<35) IU/L (units unknown) (unknown) (unknown) (no date) (unknown) (unknown) APTT (26-36) SECONDS (units unknown) (unknown) (unknown) (no date) (unknown) (unknown) APTT 23 L (26-36) SECONDS (units unknown) (unknown) (unknown) (no date) (unknown) (unknown) AST (14-36) IU/L (units unknown) (unknown) (unknown) (no date) (unknown) (unknown) AST 20 (14-36) IU/L (units unknown) (unknown) (unknown) (no date) (unknown) (unknown) Acute CHF (units unknown) (unknown) (unknown) (no date) (unknown) (unknown) Age/Sex: 57 / F (units unknown) (unknown) (unknown) (no date) (unknown) (unknown) Albumin (3.5-5.0) g/dL (units unknown) (unknown) (unknown) (no date) (unknown) (unknown) Albumin 3.8 (3.5-5.0 ) g/dL (units unknown) (unknown) (unknown) (no date) (unknown) (unknown) Albumin/Globulin Ratio (1.0-2.8) (units unknown) (unknown) (unknown) (no date) (unknown) (unknown) Albumin/Globulin Ratio 1.3 (1.0-2.8) (units unknown) (unknown) (unknown) (no date) (unknown) (unknown) Alkaline Phosphatase (38-126) U/L (units unknown) (unknown) (unknown) (no date) (unknown) (unknown) Alkaline Phosphatase 81 (38-126) U/L (units unknown) (unknown) (unknown) (no date) (unknown) (unknown) Allergies (units unknown) (unknown) (unknown) (no date) (unknown) (unknown) Allergy/AdvReac Type Severity Reaction Status Date / Time (units unknown) (unknown) (unknown) (no date) (unknown) (unknown) Approved by: Mattie Way M.D. on 09/06/2022 at 17:03 ? (units unknown) (unknown) (unknown) (no date) (unknown) (unknown) Arterial Blood Gas Stat (units unknown) (unknown) (unknown) (no date) (unknown) (unknown) BACK: Nontender without deformity or crepitance. No flank tenderness. (units unknown) (unknown) (unknown) (no date) (unknown) (unknown) BNP. (units unknown) (unknown) (unknown) (no date) (unknown) (unknown) BUN (7-17) mg/dL (units unknown) (unknown) (unknown) (no date) (unknown) (unknown) BUN 26 H (7-17) mg/dL (units unknown) (unknown) (unknown) (no date) (unknown) (unknown) BUN/Creatinine Ratio (6-22) (units unknown) (unknown) (unknown) (no date) (unknown) (unknown) BUN/Creatinine Ratio 20.2 (6-22) (units unknown) (unknown) (unknown) (no date) (unknown) (unknown) Baso # (Auto) (0-100 ) /uL (units unknown) (unknown) (unknown) (no date) (unknown) (unknown) Baso # (Auto) 100 (0-100) /uL (units unknown) (unknown) (unknown) (no date) (unknown) (unknown) Baso % (Auto) (0-2) % (units unknown) (unknown) (unknown) (no date) (unknown) (unknown) Baso % (Auto) 1.0 (0-2) % (units unknown) (unknown) (unknown) (no date) (unknown) (unknown) Blood Pressure 100/4 9 L 104/52 L (units unknown) (unknown) (unknown) (no date) (unknown) (unknown) Blood Pressure 102/7 1 150/71 H (units unknown) (unknown) (unknown) (no date) (unknown) (unknown) Blood Pressure 104/4 8 L (units unknown) (unknown) (unknown) (no date) (unknown) (unknown) Blood Pressure 109/5 3 L 116/66 (units unknown) (unknown) (unknown) (no date) (unknown) (unknown) Blood Pressure 110/5 3 L 96/54 L (units unknown) (unknown) (unknown) (no date) (unknown) (unknown) Blood Pressure 112/5 4 L (units unknown) (unknown) (unknown) (no date) (unknown) (unknown) Blood Pressure 115/5 8 L (units unknown) (unknown) (unknown) (no date) (unknown) (unknown) Blood Pressure 126/6 0 132/74 (units unknown) (unknown) (unknown) (no date) (unknown) (unknown) Blood Pressure 130/60 (units unknown) (unknown) (unknown) (no date) (unknown) (unknown) Blood Pressure 132/6 2 141/61 H (units unknown) (unknown) (unknown) (no date) (unknown) (unknown) Blood Pressure 140/6 7 137/70 (units unknown) (unknown) (unknown) (no date) (unknown) (unknown) Blood Pressure 158/8 5 H (units unknown) (unknown) (unknown) (no date) (unknown) (unknown) Blood Pressure 165/108 H (units unknown) (unknown) (unknown) (no date) (unknown) (unknown) Blood Pressure 72/43 L (units unknown) (unknown) (unknown) (no date) (unknown) (unknown) Blood Pressure 76/42 L 93/54 L (units unknown) (unknown) (unknown) (no date) (unknown) (unknown) Blood Pressure 83/51 L 71/46 L (units unknown) (unknown) (unknown) (no date) (unknown) (unknown) Blood Pressure 93/54 L (units unknown) (unknown) (unknown) (no date) (unknown) (unknown) Blood Pressure (units unknown) (unknown) (unknown) (no date) (unknown) (unknown) CARDIOVASCULAR: Irregular rhythm (units unknown) (unknown) (unknown) (no date) (unknown) (unknown) CARDIOVASCULAR: see HPI (units unknown) (unknown) (unknown) (no date) (unknown) (unknown) CK-MB (CK-2) Rel Index TNP (units unknown) (unknown) (unknown) (no date) (unknown) (unknown) CK-MB (CK-2) Rel Index (units unknown) (unknown) (unknown) (no date) (unknown) (unknown) CK-MB (CK-2) TNP (units unknown) (unknown) (unknown) (no date) (unknown) (unknown) CK-MB (CK-2) (units unknown) (unknown) (unknown) (no date) (unknown) (unknown) COPD (chronic obstructive pulmonary disease) (units unknown) (unknown) (unknown) (no date) (unknown) (unknown) Calcium (8.4-10.2) mg/dL (units unknown) (unknown) (unknown) (no date) (unknown) (unknown) Calcium 9.0 (8.4-10.2) mg/dL (units unknown) (unknown) (unknown) (no date) (unknown) (unknown) Carbon Dioxide (22-32) mmol/L (units unknown) (unknown) (unknown) (no date) (unknown) (unknown) Carbon Dioxide 35 H (22-32) mmol/L (units unknown) (unknown) (unknown) (no date) (unknown) (unknown) Chest [XR chest 1V] Stat (units unknown) (unknown) (unknown) (no date) (unknown) (unknown) Chest x-ray: (units unknown) (unknown) (unknown) (no date) (unknown) (unknown) Chief complaint: Shortness of Breath/Dyspnea (units unknown) (unknown) (unknown) (no date) (unknown) (unknown) Chloride (98-107) mmol/L (units unknown) (unknown) (unknown) (no date) (unknown) (unknown) Chloride 100 (98-107 ) mmol/L (units unknown) (unknown) (unknown) (no date) (unknown) (unknown) Clinical Impression: (units unknown) (unknown) (unknown) (no date) (unknown) (unknown) Complete Blood Count AUTO DIFF Stat (units unknown) (unknown) (unknown) (no date) (unknown) (unknown) Comprehensive Metabolic Panel Stat (units unknown) (unknown) (unknown) (no date) (unknown) (unknown) Consultation #1: (units unknown) (unknown) (unknown) (no date) (unknown) (unknown) Consultations (units unknown) (unknown) (unknown) (no date) (unknown) (unknown) Correlate with (units unknown) (unknown) (unknown) (no date) (unknown) (unknown) Course (units unknown) (unknown) (unknown) (no date) (unknown) (unknown) Creatinine (0.52-1.04) mg/dL (units unknown) (unknown) (unknown) (no date) (unknown) (unknown) Creatinine 1.29 H (0.52-1.04) mg/dL (units unknown) (unknown) (unknown) (no date) (unknown) (unknown) : 1965 Acct:[id number] (units unknown) (unknown) (unknown) (no date) (unknown) (unknown) Date of Service: 09/06/22 (units unknown) (unknown) (unknown) (no date) (unknown) (unknown) Departure (units unknown) (unknown) (unknown) (no date) (unknown) (unknown) Dictated by: Mattie Way M.D. on 09/06/2022 at 17:01 ? ? (units unknown) (unknown) (unknown) (no date) (unknown) (unknown) Discharge Plan (units unknown) (unknown) (unknown) (no date) (unknown) (unknown) Discontinued Medications (units unknown) (unknown) (unknown) (no date) (unknown) (unknown) ED Orders (units unknown) (unknown) (unknown) (no date) (unknown) (unknown) EKG-12 Lead Stat (units unknown) (unknown) (unknown) (no date) (unknown) (unknown) ENT: Nose without bleeding, purulent drainage. Throat without erythema, (units unknown) (unknown) (unknown) (no date) (unknown) (unknown) ER Physician: Aristeo Xiong D.O. (units unknown) (unknown) (unknown) (no date) (unknown) (unknown) EXTREMITIES: No valdo a or joint tenderness. (units unknown) (unknown) (unknown) (no date) (unknown) (unknown) EYES: Pupils equal round and reactive. Extraocular motions intact. No scleral (units unknown) (unknown) (unknown) (no date) (unknown) (unknown) Emergency Report (units unknown) (unknown) (unknown) (no date) (unknown) (unknown) Eos # (Auto) (0-450) /uL (units unknown) (unknown) (unknown) (no date) (unknown) (unknown) Eos # (Auto) 100 (0-450) /uL (units unknown) (unknown) (unknown) (no date) (unknown) (unknown) Eos % (Auto) (2-4) % (units unknown) (unknown) (unknown) (no date) (unknown) (unknown) Eos % (Auto) 1.1 L (2-4) % (units unknown) (unknown) (unknown) (no date) (unknown) (unknown) Estimated GFR (>60) mL/min (units unknown) (unknown) (unknown) (no date) (unknown) (unknown) Estimated GFR 48 L (>60) mL/min (units unknown) (unknown) (unknown) (no date) (unknown) (unknown) Exam Narrative: (units unknown) (unknown) (unknown) (no date) (unknown) (unknown) Exam (units unknown) (unknown) (unknown) (no date) (unknown) (unknown) FiO2 32 (units unknown) (unknown) (unknown) (no date) (unknown) (unknown) FiO2 (units unknown) (unknown) (unknown) (no date) (unknown) (unknown) Fish Containing Products Allergy Severe Anaphylaxis Verified 07/27/22 13:29 (units unknown) (unknown) (unknown) (no date) (unknown) (unknown) Furosemide (Furosemide 40 Mg/4 Ml Vial) 40 mg IV NOW ONE (units unknown) (unknown) (unknown) (no date) (unknown) (unknown) GASTROINTESTINAL: Abdomen soft, non-tender, nondistended. (units unknown) (unknown) (unknown) (no date) (unknown) (unknown) GASTROINTESTINAL: Denies nausea, vomiting, abdominal pain, diarrhea, (units unknown) (unknown) (unknown) (no date) (unknown) (unknown) GENERAL: [57] year old patient appears stated age. Well-developed patient, in (units unknown) (unknown) (unknown) (no date) (unknown) (unknown) GENERAL: see HPI. (units unknown) (unknown) (unknown) (no date) (unknown) (unknown) : Denies dysuria, frequency, incontinence, hematuria, urinary retention. (units unknown) (unknown) (unknown) (no date) (unknown) (unknown) General (units unknown) (unknown) (unknown) (no date) (unknown) (unknown) Globulin (1.7-4.1) g/dL (units unknown) (unknown) (unknown) (no date) (unknown) (unknown) Globulin 2.9 (1.7-4.1) g/dL (units unknown) (unknown) (unknown) (no date) (unknown) (unknown) Glucose (70-100) mg/dL (units unknown) (unknown) (unknown) (no date) (unknown) (unknown) Glucose 89 (70-100) mg/dL (units unknown) (unknown) (unknown) (no date) (unknown) (unknown) HEAD: Atraumatic. Normocephalic. (units unknown) (unknown) (unknown) (no date) (unknown) (unknown) HEENT: Denies sinus pain, ear pain, sore throat, difficulty swallowing, (units unknown) (unknown) (unknown) (no date) (unknown) (unknown) HPI - General Adult (units unknown) (unknown) (unknown) (no date) (unknown) (unknown) HPI narrative: (units unknown) (unknown) (unknown) (no date) (unknown) (unknown) Hct (36-46) % (units unknown) (unknown) (unknown) (no date) (unknown) (unknown) Hct 42.1 (36-46) % (units unknown) (unknown) (unknown) (no date) (unknown) (unknown) Hgb (12.0-16.0) g/dL (units unknown) (unknown) (unknown) (no date) (unknown) (unknown) Hgb 14.5 (12.0-16.0) g/dL (units unknown) (unknown) (unknown) (no date) (unknown) (unknown) History of Present Illness (units unknown) (unknown) (unknown) (no date) (unknown) (unknown) Home Medications (units unknown) (unknown) (unknown) (no date) (unknown) (unknown) IMPRESSION:? (units unknown) (unknown) (unknown) (no date) (unknown) (unknown) INR (0.9-1.3) (units unknown) (unknown) (unknown) (no date) (unknown) (unknown) INR 1.3 (0.9-1.3) (units unknown) (unknown) (unknown) (no date) (unknown) (unknown) Imaging Data (units unknown) (unknown) (unknown) (no date) (unknown) (unknown) Initial Vital Signs (units unknown) (unknown) (unknown) (no date) (unknown) (unknown) Initial Vital Signs: (units unknown) (unknown) (unknown) (no date) (unknown) (unknown) [address] [address] (units unknown) (unknown) (unknown) (no date) (unknown) (unknown) Lab Data (units unknown) (unknown) (unknown) (no date) (unknown) (unknown) Lab Results (units unknown) (unknown) (unknown) (no date) (unknown) (unknown) Labs: (units unknown) (unknown) (unknown) (no date) (unknown) (unknown) Lactate (0.7-2.1) mmol/L (units unknown) (unknown) (unknown) (no date) (unknown) (unknown) Lactate (Lactic Acid ) Stat (units unknown) (unknown) (unknown) (no date) (unknown) (unknown) Lactate 1.0 (0.7-2.1 ) mmol/L (units unknown) (unknown) (unknown) (no date) (unknown) (unknown) Last Admin: 09/06/22 18:22 Dose: 125 mg (units unknown) (unknown) (unknown) (no date) (unknown) (unknown) Last Admin: 09/06/22 18:55 Dose: 40 mg (units unknown) (unknown) (unknown) (no date) (unknown) (unknown) Lipase (23-300) U/L (units unknown) (unknown) (unknown) (no date) (unknown) (unknown) Lipase 80 (23-300) U/L (units unknown) (unknown) (unknown) (no date) (unknown) (unknown) Lipase Stat (units unknown) (unknown) (unknown) (no date) (unknown) (unknown) Lymph # (Auto) (7659-1107) /uL (units unknown) (unknown) (unknown) (no date) (unknown) (unknown) Lymph # (Auto) 2700 (0804-8967) /uL (units unknown) (unknown) (unknown) (no date) (unknown) (unknown) Lymph % (Auto) (25-40) % (units unknown) (unknown) (unknown) (no date) (unknown) (unknown) Lymph % (Auto) 26.3 (25-40) % (units unknown) (unknown) (unknown) (no date) (unknown) (unknown) MCH (26-34) PG (units unknown) (unknown) (unknown) (no date) (unknown) (unknown) MCH 32.5 (26-34) PG (units unknown) (unknown) (unknown) (no date) (unknown) (unknown) MCHC (30-36) % (units unknown) (unknown) (unknown) (no date) (unknown) (unknown) MCHC 34.6 (30-36) % (units unknown) (unknown) (unknown) (no date) (unknown) (unknown) MCV (80-100) fL (units unknown) (unknown) (unknown) (no date) (unknown) (unknown) MCV 93.9 (80-100) fL (units unknown) (unknown) (unknown) (no date) (unknown) (unknown) MUSCULOSKELETAL: denies weakness, joint pain, or bony pain (units unknown) (unknown) (unknown) (no date) (unknown) (unknown) Magnesium (1.6-2.3) mg/dL (units unknown) (unknown) (unknown) (no date) (unknown) (unknown) Magnesium 1.9 (1.6-2.3) mg/dL (units unknown) (unknown) (unknown) (no date) (unknown) (unknown) Magnesium Stat (units unknown) (unknown) (unknown) (no date) (unknown) (unknown) Medical Decision Making (units unknown) (unknown) (unknown) (no date) (unknown) (unknown) Medical History (units unknown) (unknown) (unknown) (no date) (unknown) (unknown) Medication Instructions Recorded Confirmed (units unknown) (unknown) (unknown) (no date) (unknown) (unknown) Medication Instructions Recorded (units unknown) (unknown) (unknown) (no date) (unknown) (unknown) Methylprednisolone (Methylprednisolone 125 Mg/2 Ml Vial) 125 mg IV NOW ONE (units unknown) (unknown) (unknown) (no date) (unknown) (unknown) [place] # (Auto) (0-900 ) /uL (units unknown) (unknown) (unknown) (no date) (unknown) (unknown) [place] # (Auto) 1000 H (0-900) /uL (units unknown) (unknown) (unknown) (no date) (unknown) (unknown) [place] % (Auto) (3-14) % (units unknown) (unknown) (unknown) (no date) (unknown) (unknown) [place] % (Auto) 9.6 (3-14) % (units unknown) (unknown) (unknown) (no date) (unknown) (unknown) NECK: Trachea midline. Non tender (units unknown) (unknown) (unknown) (no date) (unknown) (unknown) NEURO: AOx3. (units unknown) (unknown) (unknown) (no date) (unknown) (unknown) NEUROLOGIC: Denies weakness, headache, numbness, change in speech, confusion, (units unknown) (unknown) (unknown) (no date) (unknown) (unknown) NO need for transfer (units unknown) (unknown) (unknown) (no date) (unknown) (unknown) NT-Pro-B Natriuret Pep (<125) pg/mL (units unknown) (unknown) (unknown) (no date) (unknown) (unknown) NT-Pro-B Natriuret Pep 1250 H (<125) pg/mL (units unknown) (unknown) (unknown) (no date) (unknown) (unknown) NT-proBNP (BNP-Adult 18+) Stat (units unknown) (unknown) (unknown) (no date) (unknown) (unknown) Narrative (units unknown) (unknown) (unknown) (no date) (unknown) (unknown) Narrative: (units unknown) (unknown) (unknown) (no date) (unknown) (unknown) Neut # (Auto) (8038-4850) /uL (units unknown) (unknown) (unknown) (no date) (unknown) (unknown) Neut # (Auto) 6300 (6779-0410) /uL (units unknown) (unknown) (unknown) (no date) (unknown) (unknown) Neut % (Auto) (50-75 ) % (units unknown) (unknown) (unknown) (no date) (unknown) (unknown) Neut % (Auto) 62.0 (50-75) % (units unknown) (unknown) (unknown) (no date) (unknown) (unknown) Ordered: (units unknown) (unknown) (unknown) (no date) (unknown) (unknown) Orders (units unknown) (unknown) (unknown) (no date) (unknown) (unknown) Oxygen Delivery Method Nasal Cannula (units unknown) (unknown) (unknown) (no date) (unknown) (unknown) Oxygen Delivery Method (units unknown) (unknown) (unknown) (no date) (unknown) (unknown) Oxygen Flow Rate 3 (units unknown) (unknown) (unknown) (no date) (unknown) (unknown) Oxygen Flow Rate (units unknown) (unknown) (unknown) (no date) (unknown) (unknown) PSYCHIATRIC: No concerning psychosocial issues. (units unknown) (unknown) (unknown) (no date) (unknown) (unknown) PT (10.1-12.7) SECONDS (units unknown) (unknown) (unknown) (no date) (unknown) (unknown) PT 15.5 H (10.1-12.7 ) SECONDS (units unknown) (unknown) (unknown) (no date) (unknown) (unknown) PTT Partial Thromboplastin Efrem Stat (units unknown) (unknown) (unknown) (no date) (unknown) (unknown) Patient Disposition: Admitted as Observation (units unknown) (unknown) (unknown) (no date) (unknown) (unknown) Patient History (units unknown) (unknown) (unknown) (no date) (unknown) (unknown) Patient: Ester Benavides MR#: [id number] (units unknown) (unknown) (unknown) (no date) (unknown) (unknown) Plt Count (150-400) X103/uL (units unknown) (unknown) (unknown) (no date) (unknown) (unknown) Plt Count 232 (150-400) X103/uL (units unknown) (unknown) (unknown) (no date) (unknown) (unknown) Potassium (3.4-5.1) mmol/L (units unknown) (unknown) (unknown) (no date) (unknown) (unknown) Potassium 3.4 (3.4-5.1) mmol/L (units unknown) (unknown) (unknown) (no date) (unknown) (unknown) Previous Rx's (units unknown) (unknown) (unknown) (no date) (unknown) (unknown) Procalcitonin (<0.5) ng/mL (units unknown) (unknown) (unknown) (no date) (unknown) (unknown) Procalcitonin 0.06 (<0.5) ng/mL (units unknown) (unknown) (unknown) (no date) (unknown) (unknown) Procalcitonin Stat (units unknown) (unknown) (unknown) (no date) (unknown) (unknown) Prothrombin Time INR Stat (units unknown) (unknown) (unknown) (no date) (unknown) (unknown) Pulse Oximetry 100 97 (units unknown) (unknown) (unknown) (no date) (unknown) (unknown) Pulse Oximetry 82 L (units unknown) (unknown) (unknown) (no date) (unknown) (unknown) Pulse Oximetry 93 94 (units unknown) (unknown) (unknown) (no date) (unknown) (unknown) Pulse Oximetry 93 96 (units unknown) (unknown) (unknown) (no date) (unknown) (unknown) Pulse Oximetry 94 (units unknown) (unknown) (unknown) (no date) (unknown) (unknown) Pulse Oximetry 95 (units unknown) (unknown) (unknown) (no date) (unknown) (unknown) Pulse Oximetry 96 98 (units unknown) (unknown) (unknown) (no date) (unknown) (unknown) Pulse Oximetry 96 (units unknown) (unknown) (unknown) (no date) (unknown) (unknown) Pulse Oximetry 97 96 (units unknown) (unknown) (unknown) (no date) (unknown) (unknown) Pulse Oximetry 97 97 (units unknown) (unknown) (unknown) (no date) (unknown) (unknown) Pulse Oximetry 98 09/06/22 16:39 (units unknown) (unknown) (unknown) (no date) (unknown) (unknown) Pulse Oximetry 98 97 (units unknown) (unknown) (unknown) (no date) (unknown) (unknown) Pulse Oximetry 98 98 (units unknown) (unknown) (unknown) (no date) (unknown) (unknown) Pulse Oximetry 98 (units unknown) (unknown) (unknown) (no date) (unknown) (unknown) Pulse Oximetry 99 98 98 (units unknown) (unknown) (unknown) (no date) (unknown) (unknown) Pulse Oximetry 99 98 (units unknown) (unknown) (unknown) (no date) (unknown) (unknown) Pulse Oximetry 99 (units unknown) (unknown) (unknown) (no date) (unknown) (unknown) Pulse Rate 44 L 09/06/22 16:39 (units unknown) (unknown) (unknown) (no date) (unknown) (unknown) Pulse Rate 78 (units unknown) (unknown) (unknown) (no date) (unknown) (unknown) Pulse Rate 79 77 78 (units unknown) (unknown) (unknown) (no date) (unknown) (unknown) Pulse Rate 79 (units unknown) (unknown) (unknown) (no date) (unknown) (unknown) Pulse Rate 80 44 L 80 (units unknown) (unknown) (unknown) (no date) (unknown) (unknown) Pulse Rate 80 (units unknown) (unknown) (unknown) (no date) (unknown) (unknown) Pulse Rate 81 78 (units unknown) (unknown) (unknown) (no date) (unknown) (unknown) Pulse Rate 81 80 (units unknown) (unknown) (unknown) (no date) (unknown) (unknown) Pulse Rate 82 73 (units unknown) (unknown) (unknown) (no date) (unknown) (unknown) Pulse Rate 82 82 (units unknown) (unknown) (unknown) (no date) (unknown) (unknown) Pulse Rate 83 80 (units unknown) (unknown) (unknown) (no date) (unknown) (unknown) Pulse Rate 84 (units unknown) (unknown) (unknown) (no date) (unknown) (unknown) Pulse Rate 85 83 (units unknown) (unknown) (unknown) (no date) (unknown) (unknown) Pulse Rate 86 (units unknown) (unknown) (unknown) (no date) (unknown) (unknown) Pulse Rate 93 H 82 (units unknown) (unknown) (unknown) (no date) (unknown) (unknown) Pulse Rate 94 H 82 (units unknown) (unknown) (unknown) (no date) (unknown) (unknown) Pulse Rate 96 H (units unknown) (unknown) (unknown) (no date) (unknown) (unknown) RBC (4.0-5.2) X106/uL (units unknown) (unknown) (unknown) (no date) (unknown) (unknown) RBC 4.48 (4.0-5.2) X106/uL (units unknown) (unknown) (unknown) (no date) (unknown) (unknown) RDW (11.6-14.8) % (units unknown) (unknown) (unknown) (no date) (unknown) (unknown) RDW 14.8 (11.6-14.8) % (units unknown) (unknown) (unknown) (no date) (unknown) (unknown) RESPIRATORY: prolonged expiratory phase with decreased breath sounds (units unknown) (unknown) (unknown) (no date) (unknown) (unknown) RESPIRATORY: see HPI (units unknown) (unknown) (unknown) (no date) (unknown) (unknown) Radiologist's Impression: (units unknown) (unknown) (unknown) (no date) (unknown) (unknown) Related Data (units unknown) (unknown) (unknown) (no date) (unknown) (unknown) Respiratory Panel (Film Array) Stat (units unknown) (unknown) (unknown) (no date) (unknown) (unknown) Respiratory Rate 24 29 H (units unknown) (unknown) (unknown) (no date) (unknown) (unknown) Respiratory Rate 24 (units unknown) (unknown) (unknown) (no date) (unknown) (unknown) Respiratory Rate 25 H (units unknown) (unknown) (unknown) (no date) (unknown) (unknown) Respiratory Rate 26 H (units unknown) (unknown) (unknown) (no date) (unknown) (unknown) Respiratory Rate 27 H (units unknown) (unknown) (unknown) (no date) (unknown) (unknown) Respiratory Rate 28 H 28 H (units unknown) (unknown) (unknown) (no date) (unknown) (unknown) Respiratory Rate 28 H 29 H (units unknown) (unknown) (unknown) (no date) (unknown) (unknown) Respiratory Rate 28 H (units unknown) (unknown) (unknown) (no date) (unknown) (unknown) Respiratory Rate 29 H 25 H (units unknown) (unknown) (unknown) (no date) (unknown) (unknown) Respiratory Rate 29 H 33 H (units unknown) (unknown) (unknown) (no date) (unknown) (unknown) Respiratory Rate 29 H 35 H 39 H (units unknown) (unknown) (unknown) (no date) (unknown) (unknown) Respiratory Rate 29 H (units unknown) (unknown) (unknown) (no date) (unknown) (unknown) Respiratory Rate 30 H (units unknown) (unknown) (unknown) (no date) (unknown) (unknown) Respiratory Rate 32 H 31 H (units unknown) (unknown) (unknown) (no date) (unknown) (unknown) Respiratory Rate 33 H 35 H (units unknown) (unknown) (unknown) (no date) (unknown) (unknown) Respiratory Rate 35 H 29 H (units unknown) (unknown) (unknown) (no date) (unknown) (unknown) Respiratory Rate 35 H 33 H (units unknown) (unknown) (unknown) (no date) (unknown) (unknown) Respiratory Rate 36 H (units unknown) (unknown) (unknown) (no date) (unknown) (unknown) Respiratory Rate 41 H (units unknown) (unknown) (unknown) (no date) (unknown) (unknown) Review of Systems (units unknown) (unknown) (unknown) (no date) (unknown) (unknown) SKIN: Denies rash, skin lesions, or other (units unknown) (unknown) (unknown) (no date) (unknown) (unknown) SKIN: No rash or erythema of visible areas (units unknown) (unknown) (unknown) (no date) (unknown) (unknown) She is had no recent travel, change in medications, doses or diet. (units unknown) (unknown) (unknown) (no date) (unknown) (unknown) Signed By: (units unknown) (unknown) (unknown) (no date) (unknown) (unknown) Smoking Status: Current every day smoker (units unknown) (unknown) (unknown) (no date) (unknown) (unknown) Social History (units unknown) (unknown) (unknown) (no date) (unknown) (unknown) Sodium (137-145) mmol/L (units unknown) (unknown) (unknown) (no date) (unknown) (unknown) Sodium 140 (137-145) mmol/L (units unknown) (unknown) (unknown) (no date) (unknown) (unknown) Stated complaint: SO B monday/ [place] (units unknown) (unknown) (unknown) (no date) (unknown) (unknown) Stop: 09/06/22 16:36 (units unknown) (unknown) (unknown) (no date) (unknown) (unknown) Stop: 09/06/22 18:43 (units unknown) (unknown) (unknown) (no date) (unknown) (unknown) Substance Use Type: does not use (units unknown) (unknown) (unknown) (no date) (unknown) (unknown) Time Seen by Provider: 09/06/22 16:31 (units unknown) (unknown) (unknown) (no date) (unknown) (unknown) Total Bilirubin (0.2-1.3) mg/dL (units unknown) (unknown) (unknown) (no date) (unknown) (unknown) Total Bilirubin 0.5 (0.2-1.3) mg/dL (units unknown) (unknown) (unknown) (no date) (unknown) (unknown) Total Creatine Kin[place] e < 20 L (30-135) U/L (units unknown) (unknown) (unknown) (no date) (unknown) (unknown) Total Creatine [place] e (30-135) U/L (units unknown) (unknown) (unknown) (no date) (unknown) (unknown) Total Protein (6.3-8.2) g/dL (units unknown) (unknown) (unknown) (no date) (unknown) (unknown) Total Protein 6.7 (6.3-8.2) g/dL (units unknown) (unknown) (unknown) (no date) (unknown) (unknown) Troponin + CK Cardia c Panel Stat (units unknown) (unknown) (unknown) (no date) (unknown) (unknown) Troponin I (0.01-0.034) ng/mL (units unknown) (unknown) (unknown) (no date) (unknown) (unknown) Troponin I 0.013 (0.01-0.034) ng/mL (units unknown) (unknown) (unknown) (no date) (unknown) (unknown) Urinalysis and Microscopic Stat (units unknown) (unknown) (unknown) (no date) (unknown) (unknown) Vital Signs - 8 hr (units unknown) (unknown) (unknown) (no date) (unknown) (unknown) Vital Signs (units unknown) (unknown) (unknown) (no date) (unknown) (unknown) Vital signs: (units unknown) (unknown) (unknown) (no date) (unknown) (unknown) WBC (4.5-11.0) X103/uL (units unknown) (unknown) (unknown) (no date) (unknown) (unknown) WBC 10.2 (4.5-11.0) X103/uL (units unknown) (unknown) (unknown) (no date) (unknown) (unknown) [Embedded Image Not Available] (units unknown) (unknown) (unknown) (no date) (unknown) (unknown) acetaminophen [From Midol] Allergy Verified 07/06/21 13:33 (units unknown) (unknown) (unknown) (no date) (unknown) (unknown) activated powder inhaler (units unknown) (unknown) (unknown) (no date) (unknown) (unknown) aerosol inhaler (Ventolin HFA) Shortness Of Breath (units unknown) (unknown) (unknown) (no date) (unknown) (unknown) albuterol sulfate 90 mcg/actuation 2 puff inhalation QID PRN 07/25/22 07/25/22 (units unknown) (unknown) (unknown) (no date) (unknown) (unknown) amiodarone 200 mg tablet 100 mg PO DAILY 07/25/22 07/25/22 (units unknown) (unknown) (unknown) (no date) (unknown) (unknown) apixaban 5 mg tablet (Eliquis) 5 mg PO BID 07/25/22 07/25/22 (units unknown) (unknown) (unknown) (no date) (unknown) (unknown) bee pollen Allergy Severe Anaphylaxis Verified 07/28/22 10:43 (units unknown) (unknown) (unknown) (no date) (unknown) (unknown) budesonide 90 mcg/actuation breath 2 inh inhalation BID 07/25/22 07/25/22 (units unknown) (unknown) (unknown) (no date) (unknown) (unknown) codeine Allergy Verified 07/06/21 13:34 (units unknown) (unknown) (unknown) (no date) (unknown) (unknown) constipation, melena. (units unknown) (unknown) (unknown) (no date) (unknown) (unknown) denies any runny nose, sore throat and has had a harsh wet sounding cough she (units unknown) (unknown) (unknown) (no date) (unknown) (unknown) discussed with Dr. Butler. Recommends diuresis, admission here at [place], [place]. (units unknown) (unknown) (unknown) (no date) (unknown) (unknown) dizziness. (units unknown) (unknown) (unknown) (no date) (unknown) (unknown) doxycycline AdvReac Vomiting Verified 07/28/22 10:43 (units unknown) (unknown) (unknown) (no date) (unknown) (unknown) erythromycin base Allergy Verified 07/06/21 13:34 (units unknown) (unknown) (unknown) (no date) (unknown) (unknown) furosemide 40 mg tablet 40 mg PO BID 07/25/22 07/25/22 (units unknown) (unknown) (unknown) (no date) (unknown) (unknown) glipizide 5 mg tablet, extended 5 mg PO DAILY #30 tabs 07/28/22 (units unknown) (unknown) (unknown) (no date) (unknown) (unknown) her oxygen more ofte n than normal. She denies nausea, vomiting or diarrhea. (units unknown) (unknown) (unknown) (no date) (unknown) (unknown) household members: spouse (units unknown) (unknown) (unknown) (no date) (unknown) (unknown) hydrocodone 5 mg-acetaminophen 325 1 tab PO Q6H PRN Pain (Scale Score 07/25/22 (units unknown) (unknown) (unknown) (no date) (unknown) (unknown) icterus. No injectio n or drainage. (units unknown) (unknown) (unknown) (no date) (unknown) (unknown) iodine Allergy Rash Verified 07/27/22 13:32 (units unknown) (unknown) (unknown) (no date) (unknown) (unknown) latex Allergy Rash Verified 07/27/22 13:29 (units unknown) (unknown) (unknown) (no date) (unknown) (unknown) lisinopril 5 mg tablet 5 mg PO DAILY 07/25/22 07/25/22 (units unknown) (unknown) (unknown) (no date) (unknown) (unknown) lives independently: Yes (units unknown) (unknown) (unknown) (no date) (unknown) (unknown) metoprolol succinate 100 mg 100 mg PO BID 07/25/22 07/25/22 (units unknown) (unknown) (unknown) (no date) (unknown) (unknown) mg tablet 4-6) (units unknown) (unknown) (unknown) (no date) (unknown) (unknown) mild distress. (units unknown) (unknown) (unknown) (no date) (unknown) (unknown) montelukast 10 mg tablet 10 mg PO DAILY 07/25/22 07/25/22 (units unknown) (unknown) (unknown) (no date) (unknown) (unknown) oxycodone 5 mg table t 5 mg PO Q4HR PRN pain #20 tabs 07/28/22 (units unknown) (unknown) (unknown) (no date) (unknown) (unknown) tereza [From Midol ] Allergy Verified 07/06/21 13:33 (units unknown) (unknown) (unknown) (no date) (unknown) (unknown) prednisone 20 mg tablet 40 mg PO DAILY #3 tabs 07/28/22 (units unknown) (unknown) (unknown) (no date) (unknown) (unknown) prednisone 5 mg tablet 5 mg PO DAILY #3 tabs 07/28/22 (units unknown) (unknown) (unknown) (no date) (unknown) (unknown) presents by EMS with worsening shortness of breath over the past 3-4 days. She (units unknown) (unknown) (unknown) (no date) (unknown) (unknown) release 24 hr (Glucotrol XL) (units unknown) (unknown) (unknown) (no date) (unknown) (unknown) seizures, incoordination. (units unknown) (unknown) (unknown) (no date) (unknown) (unknown) shellfish derived Allergy Severe Anaphylaxis Verified 07/28/22 10:43 (units unknown) (unknown) (unknown) (no date) (unknown) (unknown) short of breath with exertion and lying flat and admits that she is been using (units unknown) (unknown) (unknown) (no date) (unknown) (unknown) spironolactone 25 mg tablet 25 mg PO DAILY 07/25/22 07/25/22 (units unknown) (unknown) (unknown) (no date) (unknown) (unknown) states for many year s and it is no different than normal. She becomes more (units unknown) (unknown) (unknown) (no date) (unknown) (unknown) tablet,extended release 24 hr (units unknown) (unknown) (unknown) (no date) (unknown) (unknown) throughout, perhaps faint crackles in bilateral bases (units unknown) (unknown) (unknown) (no date) (unknown) (unknown) tonsillar hypertroph y or exudate. Airway patent. (units unknown) (unknown) Result panel [id number] (unknown) (no date) (unknown) (unknown) (no value) (units unknown) (unknown) (unknown) (no date) (unknown) (unknown) 07/25/22 (units unknown) (unknown) (unknown) (no date) (unknown) (unknown) 0409/06/22 09/06/22 Range/Units (units unknown) (unknown) (unknown) (no date) (unknown) (unknown) 09/06/22 09/06/22 Range/Units (units unknown) (unknown) (unknown) (no date) (unknown) (unknown) 09/06/22 16:35 (units unknown) (unknown) (unknown) (no date) (unknown) (unknown) 09/06/22 16:36 (units unknown) (unknown) (unknown) (no date) (unknown) (unknown) 09/06/22 17:10 (units unknown) (unknown) (unknown) (no date) (unknown) (unknown) 09/06/22 17:16 (units unknown) (unknown) (unknown) (no date) (unknown) (unknown) 09/06/22 17:30 (units unknown) (unknown) (unknown) (no date) (unknown) (unknown) 09/06/22 (units unknown) (unknown) (unknown) (no date) (unknown) (unknown) 1. Findings suggest central vascular and mild interstitial congestion.? (units unknown) (unknown) (unknown) (no date) (unknown) (unknown) 12 point review of systems is negative except for those stated above (units unknown) (unknown) (unknown) (no date) (unknown) (unknown) 16:39 09/06/22 (units unknown) (unknown) (unknown) (no date) (unknown) (unknown) 16:42 09/06/22 (units unknown) (unknown) (unknown) (no date) (unknown) (unknown) 16:42 (units unknown) (unknown) (unknown) (no date) (unknown) (unknown) 16:45 09/06/22 (units unknown) (unknown) (unknown) (no date) (unknown) (unknown) 16:45 (units unknown) (unknown) (unknown) (no date) (unknown) (unknown) 16:50 09/06/22 (units unknown) (unknown) (unknown) (no date) (unknown) (unknown) 17:00 09/06/22 (units unknown) (unknown) (unknown) (no date) (unknown) (unknown) 17:01 09/06/22 (units unknown) (unknown) (unknown) (no date) (unknown) (unknown) 17:01 (units unknown) (unknown) (unknown) (no date) (unknown) (unknown) 17:06 09/06/22 (units unknown) (unknown) (unknown) (no date) (unknown) (unknown) 17:10 09/06/22 (units unknown) (unknown) (unknown) (no date) (unknown) (unknown) 17:10 17:16 17:16 (units unknown) (unknown) (unknown) (no date) (unknown) (unknown) 17:10 (units unknown) (unknown) (unknown) (no date) (unknown) (unknown) 17:15 09/06/22 (units unknown) (unknown) (unknown) (no date) (unknown) (unknown) 17:15 (units unknown) (unknown) (unknown) (no date) (unknown) (unknown) 17:16 17:16 (units unknown) (unknown) (unknown) (no date) (unknown) (unknown) 17:21 09/06/22 (units unknown) (unknown) (unknown) (no date) (unknown) (unknown) 17:26 09/06/22 (units unknown) (unknown) (unknown) (no date) (unknown) (unknown) 17:26 (units unknown) (unknown) (unknown) (no date) (unknown) (unknown) 17:30 09/06/22 (units unknown) (unknown) (unknown) (no date) (unknown) (unknown) 17:30 (units unknown) (unknown) (unknown) (no date) (unknown) (unknown) 17:36 09/06/22 (units unknown) (unknown) (unknown) (no date) (unknown) (unknown) 17:38 09/06/22 (units unknown) (unknown) (unknown) (no date) (unknown) (unknown) 17:38 (units unknown) (unknown) (unknown) (no date) (unknown) (unknown) 17:40 09/06/22 (units unknown) (unknown) (unknown) (no date) (unknown) (unknown) 17:40 (units unknown) (unknown) (unknown) (no date) (unknown) (unknown) 17:42 09/06/22 (units unknown) (unknown) (unknown) (no date) (unknown) (unknown) 17:45 (units unknown) (unknown) (unknown) (no date) (unknown) (unknown) 17:46 09/06/22 (units unknown) (unknown) (unknown) (no date) (unknown) (unknown) 17:48 09/06/22 (units unknown) (unknown) (unknown) (no date) (unknown) (unknown) 17:48 (units unknown) (unknown) (unknown) (no date) (unknown) (unknown) 17:50 09/06/22 (units unknown) (unknown) (unknown) (no date) (unknown) (unknown) 17:50 (units unknown) (unknown) (unknown) (no date) (unknown) (unknown) 17:55 09/06/22 (units unknown) (unknown) (unknown) (no date) (unknown) (unknown) 18:00 09/06/22 (units unknown) (unknown) (unknown) (no date) (unknown) (unknown) 18:00 (units unknown) (unknown) (unknown) (no date) (unknown) (unknown) 18:05 09/06/22 (units unknown) (unknown) (unknown) (no date) (unknown) (unknown) 18:06 09/06/22 (units unknown) (unknown) (unknown) (no date) (unknown) (unknown) 18:06 (units unknown) (unknown) (unknown) (no date) (unknown) (unknown) 18:10 09/06/22 (units unknown) (unknown) (unknown) (no date) (unknown) (unknown) 18:10 (units unknown) (unknown) (unknown) (no date) (unknown) (unknown) 18:15 09/06/22 (units unknown) (unknown) (unknown) (no date) (unknown) (unknown) 18:20 09/06/22 (units unknown) (unknown) (unknown) (no date) (unknown) (unknown) 18:20 (units unknown) (unknown) (unknown) (no date) (unknown) (unknown) 18:25 09/06/22 (units unknown) (unknown) (unknown) (no date) (unknown) (unknown) 18:26 09/06/22 (units unknown) (unknown) (unknown) (no date) (unknown) (unknown) 18:26 (units unknown) (unknown) (unknown) (no date) (unknown) (unknown) 18:30 09/06/22 (units unknown) (unknown) (unknown) (no date) (unknown) (unknown) 18:30 (units unknown) (unknown) (unknown) (no date) (unknown) (unknown) 18:35 09/06/22 (units unknown) (unknown) (unknown) (no date) (unknown) (unknown) 18:40 09/06/22 (units unknown) (unknown) (unknown) (no date) (unknown) (unknown) 18:40 (units unknown) (unknown) (unknown) (no date) (unknown) (unknown) 18:45 09/06/22 (units unknown) (unknown) (unknown) (no date) (unknown) (unknown) 18:46 09/06/22 (units unknown) (unknown) (unknown) (no date) (unknown) (unknown) 18:46 (units unknown) (unknown) (unknown) (no date) (unknown) (unknown) 18:50 09/06/22 (units unknown) (unknown) (unknown) (no date) (unknown) (unknown) 18:50 (units unknown) (unknown) (unknown) (no date) (unknown) (unknown) 18:55 09/06/22 (units unknown) (unknown) (unknown) (no date) (unknown) (unknown) [id number] (units unknown) (unknown) (unknown) (no date) (unknown) (unknown) 19:00 (units unknown) (unknown) (unknown) (no date) (unknown) (unknown) 19:01 09/06/22 (units unknown) (unknown) (unknown) (no date) (unknown) (unknown) 19:05 (units unknown) (unknown) (unknown) (no date) (unknown) (unknown) 2. Interstitial thickening can also be seen in viral pneumonitis. (units unknown) (unknown) (unknown) (no date) (unknown) (unknown) 3. Stable cardiomegaly.? (units unknown) (unknown) (unknown) (no date) (unknown) (unknown) 57-year-old female daily smoker with history of COPD on home oxygen at 3 L (units unknown) (unknown) (unknown) (no date) (unknown) (unknown) ? (units unknown) (unknown) (unknown) (no date) (unknown) (unknown) ABG Base Excess (-2-3) mmol/L (units unknown) (unknown) (unknown) (no date) (unknown) (unknown) ABG Base Excess 6.0 H (-2-3) mmol/L (units unknown) (unknown) (unknown) (no date) (unknown) (unknown) ABG HCO3 (23-27) mmol/L (units unknown) (unknown) (unknown) (no date) (unknown) (unknown) ABG HCO3 31 H (23-27 ) mmol/L (units unknown) (unknown) (unknown) (no date) (unknown) (unknown) ABG O2 Saturation (95-100) % (units unknown) (unknown) (unknown) (no date) (unknown) (unknown) ABG O2 Saturation 94 L (95-100) % (units unknown) (unknown) (unknown) (no date) (unknown) (unknown) ABG Total CO2 (23-27 ) mmol/L (units unknown) (unknown) (unknown) (no date) (unknown) (unknown) ABG Total CO2 32 H (23-27) mmol/L (units unknown) (unknown) (unknown) (no date) (unknown) (unknown) ABG pCO2 (35-45) mmHg (units unknown) (unknown) (unknown) (no date) (unknown) (unknown) ABG pCO2 46.9 H (35-45) mmHg (units unknown) (unknown) (unknown) (no date) (unknown) (unknown) ABG pH (7.35-7.45) (units unknown) (unknown) (unknown) (no date) (unknown) (unknown) ABG pH 7.42 (7.35-7.45) (units unknown) (unknown) (unknown) (no date) (unknown) (unknown) ABG pO2 (80-100) mmHg (units unknown) (unknown) (unknown) (no date) (unknown) (unknown) ABG pO2 70 L (80-100 ) mmHg (units unknown) (unknown) (unknown) (no date) (unknown) (unknown) ALT (<35) IU/L (units unknown) (unknown) (unknown) (no date) (unknown) (unknown) ALT 19 (<35) IU/L (units unknown) (unknown) (unknown) (no date) (unknown) (unknown) APTT (26-36) SECONDS (units unknown) (unknown) (unknown) (no date) (unknown) (unknown) APTT 23 L (26-36) SECONDS (units unknown) (unknown) (unknown) (no date) (unknown) (unknown) AST (14-36) IU/L (units unknown) (unknown) (unknown) (no date) (unknown) (unknown) AST 20 (14-36) IU/L (units unknown) (unknown) (unknown) (no date) (unknown) (unknown) Acute CHF (units unknown) (unknown) (unknown) (no date) (unknown) (unknown) Age/Sex: 57 / F (units unknown) (unknown) (unknown) (no date) (unknown) (unknown) Albumin (3.5-5.0) g/dL (units unknown) (unknown) (unknown) (no date) (unknown) (unknown) Albumin 3.8 (3.5-5.0 ) g/dL (units unknown) (unknown) (unknown) (no date) (unknown) (unknown) Albumin/Globulin Ratio (1.0-2.8) (units unknown) (unknown) (unknown) (no date) (unknown) (unknown) Albumin/Globulin Ratio 1.3 (1.0-2.8) (units unknown) (unknown) (unknown) (no date) (unknown) (unknown) Alkaline Phosphatase (38-126) U/L (units unknown) (unknown) (unknown) (no date) (unknown) (unknown) Alkaline Phosphatase 81 (38-126) U/L (units unknown) (unknown) (unknown) (no date) (unknown) (unknown) Allergies (units unknown) (unknown) (unknown) (no date) (unknown) (unknown) Allergy/AdvReac Type Severity Reaction Status Date / Time (units unknown) (unknown) (unknown) (no date) (unknown) (unknown) Approved by: Mattie Way M.D. on 09/06/2022 at 17:03 ? (units unknown) (unknown) (unknown) (no date) (unknown) (unknown) Arterial Blood Gas Stat (units unknown) (unknown) (unknown) (no date) (unknown) (unknown) BACK: Nontender without deformity or crepitance. No flank tenderness. (units unknown) (unknown) (unknown) (no date) (unknown) (unknown) BNP. (units unknown) (unknown) (unknown) (no date) (unknown) (unknown) BUN (7-17) mg/dL (units unknown) (unknown) (unknown) (no date) (unknown) (unknown) BUN 26 H (7-17) mg/dL (units unknown) (unknown) (unknown) (no date) (unknown) (unknown) BUN/Creatinine Ratio (6-22) (units unknown) (unknown) (unknown) (no date) (unknown) (unknown) BUN/Creatinine Ratio 20.2 (6-22) (units unknown) (unknown) (unknown) (no date) (unknown) (unknown) Baso # (Auto) (0-100 ) /uL (units unknown) (unknown) (unknown) (no date) (unknown) (unknown) Baso # (Auto) 100 (0-100) /uL (units unknown) (unknown) (unknown) (no date) (unknown) (unknown) Baso % (Auto) (0-2) % (units unknown) (unknown) (unknown) (no date) (unknown) (unknown) Baso % (Auto) 1.0 (0-2) % (units unknown) (unknown) (unknown) (no date) (unknown) (unknown) Blood Pressure 100/4 9 L 104/52 L (units unknown) (unknown) (unknown) (no date) (unknown) (unknown) Blood Pressure 102/7 1 150/71 H (units unknown) (unknown) (unknown) (no date) (unknown) (unknown) Blood Pressure 104/4 8 L (units unknown) (unknown) (unknown) (no date) (unknown) (unknown) Blood Pressure 109/5 3 L 116/66 (units unknown) (unknown) (unknown) (no date) (unknown) (unknown) Blood Pressure 110/5 3 L 96/54 L (units unknown) (unknown) (unknown) (no date) (unknown) (unknown) Blood Pressure 112/5 4 L (units unknown) (unknown) (unknown) (no date) (unknown) (unknown) Blood Pressure 115/5 8 L (units unknown) (unknown) (unknown) (no date) (unknown) (unknown) Blood Pressure 125/5 9 L 132/54 L (units unknown) (unknown) (unknown) (no date) (unknown) (unknown) Blood Pressure 126/6 0 132/74 (units unknown) (unknown) (unknown) (no date) (unknown) (unknown) Blood Pressure 130/60 (units unknown) (unknown) (unknown) (no date) (unknown) (unknown) Blood Pressure 132/6 2 141/61 H (units unknown) (unknown) (unknown) (no date) (unknown) (unknown) Blood Pressure 137/68 (units unknown) (unknown) (unknown) (no date) (unknown) (unknown) Blood Pressure 137/7 8 143/76 H (units unknown) (unknown) (unknown) (no date) (unknown) (unknown) Blood Pressure 140/6 7 137/70 (units unknown) (unknown) (unknown) (no date) (unknown) (unknown) Blood Pressure 158/8 5 H (units unknown) (unknown) (unknown) (no date) (unknown) (unknown) Blood Pressure 165/108 H (units unknown) (unknown) (unknown) (no date) (unknown) (unknown) Blood Pressure 72/43 L (units unknown) (unknown) (unknown) (no date) (unknown) (unknown) Blood Pressure 76/42 L 93/54 L (units unknown) (unknown) (unknown) (no date) (unknown) (unknown) Blood Pressure 83/51 L 71/46 L (units unknown) (unknown) (unknown) (no date) (unknown) (unknown) Blood Pressure 93/54 L (units unknown) (unknown) (unknown) (no date) (unknown) (unknown) Blood Pressure (units unknown) (unknown) (unknown) (no date) (unknown) (unknown) CARDIOVASCULAR: Irregular rhythm (units unknown) (unknown) (unknown) (no date) (unknown) (unknown) CARDIOVASCULAR: see HPI (units unknown) (unknown) (unknown) (no date) (unknown) (unknown) CK-MB (CK-2) Rel Index TNP (units unknown) (unknown) (unknown) (no date) (unknown) (unknown) CK-MB (CK-2) Rel Index (units unknown) (unknown) (unknown) (no date) (unknown) (unknown) CK-MB (CK-2) TNP (units unknown) (unknown) (unknown) (no date) (unknown) (unknown) CK-MB (CK-2) (units unknown) (unknown) (unknown) (no date) (unknown) (unknown) COPD (chronic obstructive pulmonary disease) (units unknown) (unknown) (unknown) (no date) (unknown) (unknown) Calcium (8.4-10.2) mg/dL (units unknown) (unknown) (unknown) (no date) (unknown) (unknown) Calcium 9.0 (8.4-10.2) mg/dL (units unknown) (unknown) (unknown) (no date) (unknown) (unknown) Carbon Dioxide (22-32) mmol/L (units unknown) (unknown) (unknown) (no date) (unknown) (unknown) Carbon Dioxide 35 H (22-32) mmol/L (units unknown) (unknown) (unknown) (no date) (unknown) (unknown) Chest [XR chest 1V] Stat (units unknown) (unknown) (unknown) (no date) (unknown) (unknown) Chest x-ray: (units unknown) (unknown) (unknown) (no date) (unknown) (unknown) Chief complaint: Shortness of Breath/Dyspnea (units unknown) (unknown) (unknown) (no date) (unknown) (unknown) Chloride (98-107) mmol/L (units unknown) (unknown) (unknown) (no date) (unknown) (unknown) Chloride 100 (98-107 ) mmol/L (units unknown) (unknown) (unknown) (no date) (unknown) (unknown) Clinical Impression: (units unknown) (unknown) (unknown) (no date) (unknown) (unknown) Complete Blood Count AUTO DIFF Stat (units unknown) (unknown) (unknown) (no date) (unknown) (unknown) Comprehensive Metabolic Panel Stat (units unknown) (unknown) (unknown) (no date) (unknown) (unknown) Consultation #1: (units unknown) (unknown) (unknown) (no date) (unknown) (unknown) Consultations (units unknown) (unknown) (unknown) (no date) (unknown) (unknown) Correlate with (units unknown) (unknown) (unknown) (no date) (unknown) (unknown) Course (units unknown) (unknown) (unknown) (no date) (unknown) (unknown) Creatinine (0.52-1.04) mg/dL (units unknown) (unknown) (unknown) (no date) (unknown) (unknown) Creatinine 1.29 H (0.52-1.04) mg/dL (units unknown) (unknown) (unknown) (no date) (unknown) (unknown) : 1965 Acct:[id number] (units unknown) (unknown) (unknown) (no date) (unknown) (unknown) Date of Service: 09/06/22 (units unknown) (unknown) (unknown) (no date) (unknown) (unknown) Departure (units unknown) (unknown) (unknown) (no date) (unknown) (unknown) Dictated by: Mattie Way M.D. on 09/06/2022 at 17:01 ? ? (units unknown) (unknown) (unknown) (no date) (unknown) (unknown) Discharge Plan (units unknown) (unknown) (unknown) (no date) (unknown) (unknown) Discontinued Medications (units unknown) (unknown) (unknown) (no date) (unknown) (unknown) ED Orders (units unknown) (unknown) (unknown) (no date) (unknown) (unknown) EKG-12 Lead Stat (units unknown) (unknown) (unknown) (no date) (unknown) (unknown) ENT: Nose without bleeding, purulent drainage. Throat without erythema, (units unknown) (unknown) (unknown) (no date) (unknown) (unknown) ER Physician: Aristeo Xiong D.O. (units unknown) (unknown) (unknown) (no date) (unknown) (unknown) EXTREMITIES: No valdo a or joint tenderness. (units unknown) (unknown) (unknown) (no date) (unknown) (unknown) EYES: Pupils equal round and reactive. Extraocular motions intact. No scleral (units unknown) (unknown) (unknown) (no date) (unknown) (unknown) Emergency Report (units unknown) (unknown) (unknown) (no date) (unknown) (unknown) Eos # (Auto) (0-450) /uL (units unknown) (unknown) (unknown) (no date) (unknown) (unknown) Eos # (Auto) 100 (0-450) /uL (units unknown) (unknown) (unknown) (no date) (unknown) (unknown) Eos % (Auto) (2-4) % (units unknown) (unknown) (unknown) (no date) (unknown) (unknown) Eos % (Auto) 1.1 L (2-4) % (units unknown) (unknown) (unknown) (no date) (unknown) (unknown) Estimated GFR (>60) mL/min (units unknown) (unknown) (unknown) (no date) (unknown) (unknown) Estimated GFR 48 L (>60) mL/min (units unknown) (unknown) (unknown) (no date) (unknown) (unknown) Exam Narrative: (units unknown) (unknown) (unknown) (no date) (unknown) (unknown) Exam (units unknown) (unknown) (unknown) (no date) (unknown) (unknown) FiO2 32 (units unknown) (unknown) (unknown) (no date) (unknown) (unknown) FiO2 (units unknown) (unknown) (unknown) (no date) (unknown) (unknown) Fish Containing Products Allergy Severe Anaphylaxis Verified 07/27/22 13:29 (units unknown) (unknown) (unknown) (no date) (unknown) (unknown) Furosemide (Furosemide 40 Mg/4 Ml Vial) 40 mg IV NOW ONE (units unknown) (unknown) (unknown) (no date) (unknown) (unknown) GASTROINTESTINAL: Abdomen soft, non-tender, nondistended. (units unknown) (unknown) (unknown) (no date) (unknown) (unknown) GASTROINTESTINAL: Denies nausea, vomiting, abdominal pain, diarrhea, (units unknown) (unknown) (unknown) (no date) (unknown) (unknown) GENERAL: [57] year old patient appears stated age. Well-developed patient, in (units unknown) (unknown) (unknown) (no date) (unknown) (unknown) GENERAL: see HPI. (units unknown) (unknown) (unknown) (no date) (unknown) (unknown) : Denies dysuria, frequency, incontinence, hematuria, urinary retention. (units unknown) (unknown) (unknown) (no date) (unknown) (unknown) General (units unknown) (unknown) (unknown) (no date) (unknown) (unknown) Globulin (1.7-4.1) g/dL (units unknown) (unknown) (unknown) (no date) (unknown) (unknown) Globulin 2.9 (1.7-4.1) g/dL (units unknown) (unknown) (unknown) (no date) (unknown) (unknown) Glucose (70-100) mg/dL (units unknown) (unknown) (unknown) (no date) (unknown) (unknown) Glucose 89 (70-100) mg/dL (units unknown) (unknown) (unknown) (no date) (unknown) (unknown) HEAD: Atraumatic. Normocephalic. (units unknown) (unknown) (unknown) (no date) (unknown) (unknown) HEENT: Denies sinus pain, ear pain, sore throat, difficulty swallowing, (units unknown) (unknown) (unknown) (no date) (unknown) (unknown) HPI - General Adult (units unknown) (unknown) (unknown) (no date) (unknown) (unknown) HPI narrative: (units unknown) (unknown) (unknown) (no date) (unknown) (unknown) Hct (36-46) % (units unknown) (unknown) (unknown) (no date) (unknown) (unknown) Hct 42.1 (36-46) % (units unknown) (unknown) (unknown) (no date) (unknown) (unknown) Hgb (12.0-16.0) g/dL (units unknown) (unknown) (unknown) (no date) (unknown) (unknown) Hgb 14.5 (12.0-16.0) g/dL (units unknown) (unknown) (unknown) (no date) (unknown) (unknown) History of Present Illness (units unknown) (unknown) (unknown) (no date) (unknown) (unknown) Home Medications (units unknown) (unknown) (unknown) (no date) (unknown) (unknown) IMPRESSION:? (units unknown) (unknown) (unknown) (no date) (unknown) (unknown) INR (0.9-1.3) (units unknown) (unknown) (unknown) (no date) (unknown) (unknown) INR 1.3 (0.9-1.3) (units unknown) (unknown) (unknown) (no date) (unknown) (unknown) Imaging Data (units unknown) (unknown) (unknown) (no date) (unknown) (unknown) Initial Vital Signs (units unknown) (unknown) (unknown) (no date) (unknown) (unknown) Initial Vital Signs: (units unknown) (unknown) (unknown) (no date) (unknown) (unknown) [address] [address] (units unknown) (unknown) (unknown) (no date) (unknown) (unknown) Lab Data (units unknown) (unknown) (unknown) (no date) (unknown) (unknown) Lab Results (units unknown) (unknown) (unknown) (no date) (unknown) (unknown) Labs: (units unknown) (unknown) (unknown) (no date) (unknown) (unknown) Lactate (0.7-2.1) mmol/L (units unknown) (unknown) (unknown) (no date) (unknown) (unknown) Lactate (Lactic Acid ) Stat (units unknown) (unknown) (unknown) (no date) (unknown) (unknown) Lactate 1.0 (0.7-2.1 ) mmol/L (units unknown) (unknown) (unknown) (no date) (unknown) (unknown) Last Admin: 09/06/22 18:22 Dose: 125 mg (units unknown) (unknown) (unknown) (no date) (unknown) (unknown) Last Admin: 09/06/22 18:55 Dose: 40 mg (units unknown) (unknown) (unknown) (no date) (unknown) (unknown) Lipase (23-300) U/L (units unknown) (unknown) (unknown) (no date) (unknown) (unknown) Lipase 80 (23-300) U/L (units unknown) (unknown) (unknown) (no date) (unknown) (unknown) Lipase Stat (units unknown) (unknown) (unknown) (no date) (unknown) (unknown) Lymph # (Auto) (9918-2609) /uL (units unknown) (unknown) (unknown) (no date) (unknown) (unknown) Lymph # (Auto) 2700 (2052-4895) /uL (units unknown) (unknown) (unknown) (no date) (unknown) (unknown) Lymph % (Auto) (25-40) % (units unknown) (unknown) (unknown) (no date) (unknown) (unknown) Lymph % (Auto) 26.3 (25-40) % (units unknown) (unknown) (unknown) (no date) (unknown) (unknown) MCH (26-34) PG (units unknown) (unknown) (unknown) (no date) (unknown) (unknown) MCH 32.5 (26-34) PG (units unknown) (unknown) (unknown) (no date) (unknown) (unknown) MCHC (30-36) % (units unknown) (unknown) (unknown) (no date) (unknown) (unknown) MCHC 34.6 (30-36) % (units unknown) (unknown) (unknown) (no date) (unknown) (unknown) MCV (80-100) fL (units unknown) (unknown) (unknown) (no date) (unknown) (unknown) MCV 93.9 (80-100) fL (units unknown) (unknown) (unknown) (no date) (unknown) (unknown) MUSCULOSKELETAL: denies weakness, joint pain, or bony pain (units unknown) (unknown) (unknown) (no date) (unknown) (unknown) Magnesium (1.6-2.3) mg/dL (units unknown) (unknown) (unknown) (no date) (unknown) (unknown) Magnesium 1.9 (1.6-2.3) mg/dL (units unknown) (unknown) (unknown) (no date) (unknown) (unknown) Magnesium Stat (units unknown) (unknown) (unknown) (no date) (unknown) (unknown) Medical Decision Making (units unknown) (unknown) (unknown) (no date) (unknown) (unknown) Medical History (units unknown) (unknown) (unknown) (no date) (unknown) (unknown) Medication Instructions Recorded Confirmed (units unknown) (unknown) (unknown) (no date) (unknown) (unknown) Medication Instructions Recorded (units unknown) (unknown) (unknown) (no date) (unknown) (unknown) Methylprednisolone (Methylprednisolone 125 Mg/2 Ml Vial) 125 mg IV NOW ONE (units unknown) (unknown) (unknown) (no date) (unknown) (unknown) [place] # (Auto) (0-900 ) /uL (units unknown) (unknown) (unknown) (no date) (unknown) (unknown) [place] # (Auto) 1000 H (0-900) /uL (units unknown) (unknown) (unknown) (no date) (unknown) (unknown) [place] % (Auto) (3-14) % (units unknown) (unknown) (unknown) (no date) (unknown) (unknown) [place] % (Auto) 9.6 (3-14) % (units unknown) (unknown) (unknown) (no date) (unknown) (unknown) NECK: Trachea midline. Non tender (units unknown) (unknown) (unknown) (no date) (unknown) (unknown) NEURO: AOx3. (units unknown) (unknown) (unknown) (no date) (unknown) (unknown) NEUROLOGIC: Denies weakness, headache, numbness, change in speech, confusion, (units unknown) (unknown) (unknown) (no date) (unknown) (unknown) NO need for transfer (units unknown) (unknown) (unknown) (no date) (unknown) (unknown) NT-Pro-B Natriuret Pep (<125) pg/mL (units unknown) (unknown) (unknown) (no date) (unknown) (unknown) NT-Pro-B Natriuret Pep 1250 H (<125) pg/mL (units unknown) (unknown) (unknown) (no date) (unknown) (unknown) NT-proBNP (BNP-Adult 18+) Stat (units unknown) (unknown) (unknown) (no date) (unknown) (unknown) Narrative (units unknown) (unknown) (unknown) (no date) (unknown) (unknown) Narrative: (units unknown) (unknown) (unknown) (no date) (unknown) (unknown) Neut # (Auto) (6581-6770) /uL (units unknown) (unknown) (unknown) (no date) (unknown) (unknown) Neut # (Auto) 6300 (5151-7180) /uL (units unknown) (unknown) (unknown) (no date) (unknown) (unknown) Neut % (Auto) (50-75 ) % (units unknown) (unknown) (unknown) (no date) (unknown) (unknown) Neut % (Auto) 62.0 (50-75) % (units unknown) (unknown) (unknown) (no date) (unknown) (unknown) Ordered: (units unknown) (unknown) (unknown) (no date) (unknown) (unknown) Orders (units unknown) (unknown) (unknown) (no date) (unknown) (unknown) Oxygen Delivery Method Nasal Cannula (units unknown) (unknown) (unknown) (no date) (unknown) (unknown) Oxygen Delivery Method (units unknown) (unknown) (unknown) (no date) (unknown) (unknown) Oxygen Flow Rate 3 (units unknown) (unknown) (unknown) (no date) (unknown) (unknown) Oxygen Flow Rate (units unknown) (unknown) (unknown) (no date) (unknown) (unknown) PSYCHIATRIC: No concerning psychosocial issues. (units unknown) (unknown) (unknown) (no date) (unknown) (unknown) PT (10.1-12.7) SECONDS (units unknown) (unknown) (unknown) (no date) (unknown) (unknown) PT 15.5 H (10.1-12.7 ) SECONDS (units unknown) (unknown) (unknown) (no date) (unknown) (unknown) PTT Partial Thromboplastin Efrem Stat (units unknown) (unknown) (unknown) (no date) (unknown) (unknown) Patient Disposition: Admitted as Observation (units unknown) (unknown) (unknown) (no date) (unknown) (unknown) Patient History (units unknown) (unknown) (unknown) (no date) (unknown) (unknown) Patient: Ester Benavides MR#: [id number] (units unknown) (unknown) (unknown) (no date) (unknown) (unknown) Plt Count (150-400) X103/uL (units unknown) (unknown) (unknown) (no date) (unknown) (unknown) Plt Count 232 (150-400) X103/uL (units unknown) (unknown) (unknown) (no date) (unknown) (unknown) Potassium (3.4-5.1) mmol/L (units unknown) (unknown) (unknown) (no date) (unknown) (unknown) Potassium 3.4 (3.4-5.1) mmol/L (units unknown) (unknown) (unknown) (no date) (unknown) (unknown) Previous Rx's (units unknown) (unknown) (unknown) (no date) (unknown) (unknown) Procalcitonin (<0.5) ng/mL (units unknown) (unknown) (unknown) (no date) (unknown) (unknown) Procalcitonin 0.06 (<0.5) ng/mL (units unknown) (unknown) (unknown) (no date) (unknown) (unknown) Procalcitonin Stat (units unknown) (unknown) (unknown) (no date) (unknown) (unknown) Prothrombin Time INR Stat (units unknown) (unknown) (unknown) (no date) (unknown) (unknown) Pulse Oximetry 100 97 (units unknown) (unknown) (unknown) (no date) (unknown) (unknown) Pulse Oximetry 82 L (units unknown) (unknown) (unknown) (no date) (unknown) (unknown) Pulse Oximetry 93 94 (units unknown) (unknown) (unknown) (no date) (unknown) (unknown) Pulse Oximetry 93 96 (units unknown) (unknown) (unknown) (no date) (unknown) (unknown) Pulse Oximetry 94 (units unknown) (unknown) (unknown) (no date) (unknown) (unknown) Pulse Oximetry 95 (units unknown) (unknown) (unknown) (no date) (unknown) (unknown) Pulse Oximetry 96 98 (units unknown) (unknown) (unknown) (no date) (unknown) (unknown) Pulse Oximetry 96 (units unknown) (unknown) (unknown) (no date) (unknown) (unknown) Pulse Oximetry 97 96 (units unknown) (unknown) (unknown) (no date) (unknown) (unknown) Pulse Oximetry 97 97 (units unknown) (unknown) (unknown) (no date) (unknown) (unknown) Pulse Oximetry 97 (units unknown) (unknown) (unknown) (no date) (unknown) (unknown) Pulse Oximetry 98 09/06/22 16:39 (units unknown) (unknown) (unknown) (no date) (unknown) (unknown) Pulse Oximetry 98 97 (units unknown) (unknown) (unknown) (no date) (unknown) (unknown) Pulse Oximetry 98 98 (units unknown) (unknown) (unknown) (no date) (unknown) (unknown) Pulse Oximetry 98 (units unknown) (unknown) (unknown) (no date) (unknown) (unknown) Pulse Oximetry 99 98 95 (units unknown) (unknown) (unknown) (no date) (unknown) (unknown) Pulse Oximetry 99 98 98 (units unknown) (unknown) (unknown) (no date) (unknown) (unknown) Pulse Oximetry 99 98 (units unknown) (unknown) (unknown) (no date) (unknown) (unknown) Pulse Oximetry 99 (units unknown) (unknown) (unknown) (no date) (unknown) (unknown) Pulse Rate 44 L 09/06/22 16:39 (units unknown) (unknown) (unknown) (no date) (unknown) (unknown) Pulse Rate 74 (units unknown) (unknown) (unknown) (no date) (unknown) (unknown) Pulse Rate 78 (units unknown) (unknown) (unknown) (no date) (unknown) (unknown) Pulse Rate 79 77 78 (units unknown) (unknown) (unknown) (no date) (unknown) (unknown) Pulse Rate 79 (units unknown) (unknown) (unknown) (no date) (unknown) (unknown) Pulse Rate 80 44 L 80 (units unknown) (unknown) (unknown) (no date) (unknown) (unknown) Pulse Rate 80 (units unknown) (unknown) (unknown) (no date) (unknown) (unknown) Pulse Rate 81 78 (units unknown) (unknown) (unknown) (no date) (unknown) (unknown) Pulse Rate 81 80 (units unknown) (unknown) (unknown) (no date) (unknown) (unknown) Pulse Rate 82 73 (units unknown) (unknown) (unknown) (no date) (unknown) (unknown) Pulse Rate 82 82 (units unknown) (unknown) (unknown) (no date) (unknown) (unknown) Pulse Rate 83 75 (units unknown) (unknown) (unknown) (no date) (unknown) (unknown) Pulse Rate 83 80 (units unknown) (unknown) (unknown) (no date) (unknown) (unknown) Pulse Rate 84 (units unknown) (unknown) (unknown) (no date) (unknown) (unknown) Pulse Rate 85 83 (units unknown) (unknown) (unknown) (no date) (unknown) (unknown) Pulse Rate 86 80 83 (units unknown) (unknown) (unknown) (no date) (unknown) (unknown) Pulse Rate 86 (units unknown) (unknown) (unknown) (no date) (unknown) (unknown) Pulse Rate 93 H 82 (units unknown) (unknown) (unknown) (no date) (unknown) (unknown) Pulse Rate 93 H (units unknown) (unknown) (unknown) (no date) (unknown) (unknown) Pulse Rate 94 H 82 (units unknown) (unknown) (unknown) (no date) (unknown) (unknown) Pulse Rate 96 H (units unknown) (unknown) (unknown) (no date) (unknown) (unknown) RBC (4.0-5.2) X106/uL (units unknown) (unknown) (unknown) (no date) (unknown) (unknown) RBC 4.48 (4.0-5.2) X106/uL (units unknown) (unknown) (unknown) (no date) (unknown) (unknown) RDW (11.6-14.8) % (units unknown) (unknown) (unknown) (no date) (unknown) (unknown) RDW 14.8 (11.6-14.8) % (units unknown) (unknown) (unknown) (no date) (unknown) (unknown) RESPIRATORY: prolonged expiratory phase with decreased breath sounds (units unknown) (unknown) (unknown) (no date) (unknown) (unknown) RESPIRATORY: see HPI (units unknown) (unknown) (unknown) (no date) (unknown) (unknown) Radiologist's Impression: (units unknown) (unknown) (unknown) (no date) (unknown) (unknown) Related Data (units unknown) (unknown) (unknown) (no date) (unknown) (unknown) Respiratory Panel (Film Array) Stat (units unknown) (unknown) (unknown) (no date) (unknown) (unknown) Respiratory Rate 24 28 H 36 H (units unknown) (unknown) (unknown) (no date) (unknown) (unknown) Respiratory Rate 24 29 H (units unknown) (unknown) (unknown) (no date) (unknown) (unknown) Respiratory Rate 25 H (units unknown) (unknown) (unknown) (no date) (unknown) (unknown) Respiratory Rate 26 H (units unknown) (unknown) (unknown) (no date) (unknown) (unknown) Respiratory Rate 27 H (units unknown) (unknown) (unknown) (no date) (unknown) (unknown) Respiratory Rate 28 H 28 H (units unknown) (unknown) (unknown) (no date) (unknown) (unknown) Respiratory Rate 28 H 29 H (units unknown) (unknown) (unknown) (no date) (unknown) (unknown) Respiratory Rate 28 H (units unknown) (unknown) (unknown) (no date) (unknown) (unknown) Respiratory Rate 29 H 25 H (units unknown) (unknown) (unknown) (no date) (unknown) (unknown) Respiratory Rate 29 H 33 H (units unknown) (unknown) (unknown) (no date) (unknown) (unknown) Respiratory Rate 29 H 35 H 39 H (units unknown) (unknown) (unknown) (no date) (unknown) (unknown) Respiratory Rate 29 H (units unknown) (unknown) (unknown) (no date) (unknown) (unknown) Respiratory Rate 30 H (units unknown) (unknown) (unknown) (no date) (unknown) (unknown) Respiratory Rate 32 H 31 H (units unknown) (unknown) (unknown) (no date) (unknown) (unknown) Respiratory Rate 33 H 35 H (units unknown) (unknown) (unknown) (no date) (unknown) (unknown) Respiratory Rate 35 H 29 H (units unknown) (unknown) (unknown) (no date) (unknown) (unknown) Respiratory Rate 35 H 33 H (units unknown) (unknown) (unknown) (no date) (unknown) (unknown) Respiratory Rate 36 H (units unknown) (unknown) (unknown) (no date) (unknown) (unknown) Respiratory Rate 40 H 24 (units unknown) (unknown) (unknown) (no date) (unknown) (unknown) Respiratory Rate 41 H (units unknown) (unknown) (unknown) (no date) (unknown) (unknown) Review of Systems (units unknown) (unknown) (unknown) (no date) (unknown) (unknown) SKIN: Denies rash, skin lesions, or other (units unknown) (unknown) (unknown) (no date) (unknown) (unknown) SKIN: No rash or erythema of visible areas (units unknown) (unknown) (unknown) (no date) (unknown) (unknown) She is had no recent travel, change in medications, doses or diet. (units unknown) (unknown) (unknown) (no date) (unknown) (unknown) Signed By: (units unknown) (unknown) (unknown) (no date) (unknown) (unknown) Smoking Status: Current every day smoker (units unknown) (unknown) (unknown) (no date) (unknown) (unknown) Social History (units unknown) (unknown) (unknown) (no date) (unknown) (unknown) Sodium (137-145) mmol/L (units unknown) (unknown) (unknown) (no date) (unknown) (unknown) Sodium 140 (137-145) mmol/L (units unknown) (unknown) (unknown) (no date) (unknown) (unknown) Stated complaint: SO B monday/ (units unknown) (unknown) (unknown) (no date) (unknown) (unknown) Stop: 09/06/22 16:36 (units unknown) (unknown) (unknown) (no date) (unknown) (unknown) Stop: 09/06/22 18:43 (units unknown) (unknown) (unknown) (no date) (unknown) (unknown) Substance Use Type: does not use (units unknown) (unknown) (unknown) (no date) (unknown) (unknown) Time Seen by Provider: 09/06/22 16:31 (units unknown) (unknown) (unknown) (no date) (unknown) (unknown) Total Bilirubin (0.2-1.3) mg/dL (units unknown) (unknown) (unknown) (no date) (unknown) (unknown) Total Bilirubin 0.5 (0.2-1.3) mg/dL (units unknown) (unknown) (unknown) (no date) (unknown) (unknown) Total Creatine Kinas e < 20 L (30-135) U/L (units unknown) (unknown) (unknown) (no date) (unknown) (unknown) Total Creatine Kinas e (30-135) U/L (units unknown) (unknown) (unknown) (no date) (unknown) (unknown) Total Protein (6.3-8.2) g/dL (units unknown) (unknown) (unknown) (no date) (unknown) (unknown) Total Protein 6.7 (6.3-8.2) g/dL (units unknown) (unknown) (unknown) (no date) (unknown) (unknown) Troponin + CK Cardia c Panel Stat (units unknown) (unknown) (unknown) (no date) (unknown) (unknown) Troponin I (0.01-0.034) ng/mL (units unknown) (unknown) (unknown) (no date) (unknown) (unknown) Troponin I 0.013 (0.01-0.034) ng/mL (units unknown) (unknown) (unknown) (no date) (unknown) (unknown) Urinalysis and Microscopic Stat (units unknown) (unknown) (unknown) (no date) (unknown) (unknown) Vital Signs - 8 hr (units unknown) (unknown) (unknown) (no date) (unknown) (unknown) Vital Signs (units unknown) (unknown) (unknown) (no date) (unknown) (unknown) Vital signs: (units unknown) (unknown) (unknown) (no date) (unknown) (unknown) WBC (4.5-11.0) X103/uL (units unknown) (unknown) (unknown) (no date) (unknown) (unknown) WBC 10.2 (4.5-11.0) X103/uL (units unknown) (unknown) (unknown) (no date) (unknown) (unknown) [Embedded Image Not Available] (units unknown) (unknown) (unknown) (no date) (unknown) (unknown) acetaminophen [From [facility]] Allergy Verified 07/06/21 13:33 (units unknown) (unknown) (unknown) (no date) (unknown) (unknown) activated powder inhaler (units unknown) (unknown) (unknown) (no date) (unknown) (unknown) aerosol inhaler (Ventolin HFA) Shortness Of Breath (units unknown) (unknown) (unknown) (no date) (unknown) (unknown) albuterol sulfate 90 mcg/actuation 2 puff inhalation QID PRN 07/25/22 07/25/22 (units unknown) (unknown) (unknown) (no date) (unknown) (unknown) amiodarone 200 mg tablet 100 mg PO DAILY 07/25/22 07/25/22 (units unknown) (unknown) (unknown) (no date) (unknown) (unknown) apixaban 5 mg tablet (Eliquis) 5 mg PO BID 07/25/22 07/25/22 (units unknown) (unknown) (unknown) (no date) (unknown) (unknown) bee pollen Allergy Severe Anaphylaxis Verified 07/28/22 10:43 (units unknown) (unknown) (unknown) (no date) (unknown) (unknown) budesonide 90 mcg/actuation breath 2 inh inhalation BID 07/25/22 07/25/22 (units unknown) (unknown) (unknown) (no date) (unknown) (unknown) codeine Allergy Verified 07/06/21 13:34 (units unknown) (unknown) (unknown) (no date) (unknown) (unknown) constipation, melena. (units unknown) (unknown) (unknown) (no date) (unknown) (unknown) denies any runny nose, sore throat and has had a harsh wet sounding cough she (units unknown) (unknown) (unknown) (no date) (unknown) (unknown) discussed with Dr. Butler. Recommends diuresis, [facility]. (units unknown) (unknown) (unknown) (no date) (unknown) (unknown) dizziness. (units unknown) (unknown) (unknown) (no date) (unknown) (unknown) doxycycline AdvReac Vomiting Verified 07/28/22 10:43 (units unknown) (unknown) (unknown) (no date) (unknown) (unknown) erythromycin base Allergy Verified 07/06/21 13:34 (units unknown) (unknown) (unknown) (no date) (unknown) (unknown) furosemide 40 mg tablet 40 mg PO BID 07/25/22 07/25/22 (units unknown) (unknown) (unknown) (no date) (unknown) (unknown) glipizide 5 mg tablet, extended 5 mg PO DAILY #30 tabs 07/28/22 (units unknown) (unknown) (unknown) (no date) (unknown) (unknown) her oxygen more ofte n than normal. She denies nausea, vomiting or diarrhea. (units unknown) (unknown) (unknown) (no date) (unknown) (unknown) household members: spouse (units unknown) (unknown) (unknown) (no date) (unknown) (unknown) hydrocodone 5 mg-acetaminophen 325 1 tab PO Q6H PRN Pain (Scale Score 07/25/22 (units unknown) (unknown) (unknown) (no date) (unknown) (unknown) icterus. No injectio n or drainage. (units unknown) (unknown) (unknown) (no date) (unknown) (unknown) iodine Allergy Rash Verified 07/27/22 13:32 (units unknown) (unknown) (unknown) (no date) (unknown) (unknown) latex Allergy Rash Verified 07/27/22 13:29 (units unknown) (unknown) (unknown) (no date) (unknown) (unknown) lisinopril 5 mg tablet 5 mg PO DAILY 07/25/22 07/25/22 (units unknown) (unknown) (unknown) (no date) (unknown) (unknown) lives independently: Yes (units unknown) (unknown) (unknown) (no date) (unknown) (unknown) metoprolol succinate 100 mg 100 mg PO BID 07/25/22 07/25/22 (units unknown) (unknown) (unknown) (no date) (unknown) (unknown) mg tablet 4-6) (units unknown) (unknown) (unknown) (no date) (unknown) (unknown) mild distress. (units unknown) (unknown) (unknown) (no date) (unknown) (unknown) montelukast 10 mg tablet 10 mg PO DAILY 07/25/22 07/25/22 (units unknown) (unknown) (unknown) (no date) (unknown) (unknown) oxycodone 5 mg table t 5 mg PO Q4HR PRN pain #20 tabs 07/28/22 (units unknown) (unknown) (unknown) (no date) (unknown) (unknown) pamabrom [From [facility] ] Allergy Verified 07/06/21 13:33 (units unknown) (unknown) (unknown) (no date) (unknown) (unknown) prednisone 20 mg tablet 40 mg PO DAILY #3 tabs 07/28/22 (units unknown) (unknown) (unknown) (no date) (unknown) (unknown) prednisone 5 mg tablet 5 mg PO DAILY #3 tabs 07/28/22 (units unknown) (unknown) (unknown) (no date) (unknown) (unknown) presents by EMS with worsening shortness of breath over the past 3-4 days. She (units unknown) (unknown) (unknown) (no date) (unknown) (unknown) release 24 hr (Glucotrol XL) (units unknown) (unknown) (unknown) (no date) (unknown) (unknown) seizures, incoordination. (units unknown) (unknown) (unknown) (no date) (unknown) (unknown) shellfish derived Allergy Severe Anaphylaxis Verified 07/28/22 10:43 (units unknown) (unknown) (unknown) (no date) (unknown) (unknown) short of breath with exertion and lying flat and admits that she is been using (units unknown) (unknown) (unknown) (no date) (unknown) (unknown) spironolactone 25 mg tablet 25 mg PO DAILY 07/25/22 07/25/22 (units unknown) (unknown) (unknown) (no date) (unknown) (unknown) states for many year s and it is no different than normal. She becomes more (units unknown) (unknown) (unknown) (no date) (unknown) (unknown) tablet,extended release 24 hr (units unknown) (unknown) (unknown) (no date) (unknown) (unknown) throughout, perhaps faint crackles in bilateral bases (units unknown) (unknown) (unknown) (no date) (unknown) (unknown) tonsillar hypertroph y or exudate. Airway patent. (units unknown) (unknown) Result panel [id number] (unknown) (no date) (unknown) (unknown) Not Detected (units unknown) (unknown) (unknown) (no date) (unknown) (unknown) Not Detected (units unknown) (unknown) Result panel 686 (unknown) (no date) (unknown) (unknown) (no value) (units unknown) (unknown) (unknown) (no date) (unknown) (unknown) (past 8 hours): (units unknown) (unknown) (unknown) (no date) (unknown) (unknown) -acute on chronic CHFrEF (units unknown) (unknown) (unknown) (no date) (unknown) (unknown) -dietary nonadherence (units unknown) (unknown) (unknown) (no date) (unknown) (unknown) -possible acute COPD exacerbation (units unknown) (unknown) (unknown) (no date) (unknown) (unknown) 07/25/22 History (units unknown) (unknown) (unknown) (no date) (unknown) (unknown) 09/06/22 09/06/22 09/06/22 (units unknown) (unknown) (unknown) (no date) (unknown) (unknown) 09/06/22 09/06/22 (units unknown) (unknown) (unknown) (no date) (unknown) (unknown) 09/06/22 17:16 (units unknown) (unknown) (unknown) (no date) (unknown) (unknown) 09/06/22 (units unknown) (unknown) (unknown) (no date) (unknown) (unknown) 1. Acute on chronic respiratory failure secondary to: (units unknown) (unknown) (unknown) (no date) (unknown) (unknown) 16:39 09/06/22 (units unknown) (unknown) (unknown) (no date) (unknown) (unknown) 16:42 09/06/22 (units unknown) (unknown) (unknown) (no date) (unknown) (unknown) 16:42 (units unknown) (unknown) (unknown) (no date) (unknown) (unknown) 16:45 09/06/22 (units unknown) (unknown) (unknown) (no date) (unknown) (unknown) 16:45 (units unknown) (unknown) (unknown) (no date) (unknown) (unknown) 16:50 09/06/22 (units unknown) (unknown) (unknown) (no date) (unknown) (unknown) 17:00 09/06/22 (units unknown) (unknown) (unknown) (no date) (unknown) (unknown) 17:01 09/06/22 (units unknown) (unknown) (unknown) (no date) (unknown) (unknown) 17:01 (units unknown) (unknown) (unknown) (no date) (unknown) (unknown) 17:06 09/06/22 (units unknown) (unknown) (unknown) (no date) (unknown) (unknown) 17:10 09/06/22 (units unknown) (unknown) (unknown) (no date) (unknown) (unknown) 17:10 17:16 17:16 (units unknown) (unknown) (unknown) (no date) (unknown) (unknown) 17:10 (units unknown) (unknown) (unknown) (no date) (unknown) (unknown) 17:15 09/06/22 (units unknown) (unknown) (unknown) (no date) (unknown) (unknown) 17:15 (units unknown) (unknown) (unknown) (no date) (unknown) (unknown) 17:16 17:16 (units unknown) (unknown) (unknown) (no date) (unknown) (unknown) 17:21 09/06/22 (units unknown) (unknown) (unknown) (no date) (unknown) (unknown) 17:26 09/06/22 (units unknown) (unknown) (unknown) (no date) (unknown) (unknown) 17:26 (units unknown) (unknown) (unknown) (no date) (unknown) (unknown) 17:30 09/06/22 (units unknown) (unknown) (unknown) (no date) (unknown) (unknown) 17:30 (units unknown) (unknown) (unknown) (no date) (unknown) (unknown) 17:36 09/06/22 (units unknown) (unknown) (unknown) (no date) (unknown) (unknown) 17:38 09/06/22 (units unknown) (unknown) (unknown) (no date) (unknown) (unknown) 17:38 (units unknown) (unknown) (unknown) (no date) (unknown) (unknown) 17:40 09/06/22 (units unknown) (unknown) (unknown) (no date) (unknown) (unknown) 17:40 (units unknown) (unknown) (unknown) (no date) (unknown) (unknown) 17:42 09/06/22 (units unknown) (unknown) (unknown) (no date) (unknown) (unknown) 17:45 (units unknown) (unknown) (unknown) (no date) (unknown) (unknown) 17:46 09/06/22 (units unknown) (unknown) (unknown) (no date) (unknown) (unknown) 17:48 09/06/22 (units unknown) (unknown) (unknown) (no date) (unknown) (unknown) 17:48 (units unknown) (unknown) (unknown) (no date) (unknown) (unknown) 17:50 09/06/22 (units unknown) (unknown) (unknown) (no date) (unknown) (unknown) 17:50 (units unknown) (unknown) (unknown) (no date) (unknown) (unknown) 17:55 09/06/22 (units unknown) (unknown) (unknown) (no date) (unknown) (unknown) 18:00 09/06/22 (units unknown) (unknown) (unknown) (no date) (unknown) (unknown) 18:00 (units unknown) (unknown) (unknown) (no date) (unknown) (unknown) 18:05 09/06/22 (units unknown) (unknown) (unknown) (no date) (unknown) (unknown) 18:06 09/06/22 (units unknown) (unknown) (unknown) (no date) (unknown) (unknown) 18:06 (units unknown) (unknown) (unknown) (no date) (unknown) (unknown) 18:10 09/06/22 (units unknown) (unknown) (unknown) (no date) (unknown) (unknown) 18:10 (units unknown) (unknown) (unknown) (no date) (unknown) (unknown) 18:15 09/06/22 (units unknown) (unknown) (unknown) (no date) (unknown) (unknown) 18:20 09/06/22 (units unknown) (unknown) (unknown) (no date) (unknown) (unknown) 18:20 (units unknown) (unknown) (unknown) (no date) (unknown) (unknown) 18:25 09/06/22 (units unknown) (unknown) (unknown) (no date) (unknown) (unknown) 18:26 09/06/22 (units unknown) (unknown) (unknown) (no date) (unknown) (unknown) 18:26 (units unknown) (unknown) (unknown) (no date) (unknown) (unknown) 18:30 09/06/22 (units unknown) (unknown) (unknown) (no date) (unknown) (unknown) 18:30 (units unknown) (unknown) (unknown) (no date) (unknown) (unknown) 18:35 09/06/22 (units unknown) (unknown) (unknown) (no date) (unknown) (unknown) 18:40 09/06/22 (units unknown) (unknown) (unknown) (no date) (unknown) (unknown) 18:40 (units unknown) (unknown) (unknown) (no date) (unknown) (unknown) 18:45 09/06/22 (units unknown) (unknown) (unknown) (no date) (unknown) (unknown) 18:46 09/06/22 (units unknown) (unknown) (unknown) (no date) (unknown) (unknown) 18:46 (units unknown) (unknown) (unknown) (no date) (unknown) (unknown) 18:50 09/06/22 (units unknown) (unknown) (unknown) (no date) (unknown) (unknown) 18:50 (units unknown) (unknown) (unknown) (no date) (unknown) (unknown) 18:55 09/06/22 (units unknown) (unknown) (unknown) (no date) (unknown) (unknown) [id number] (units unknown) (unknown) (unknown) (no date) (unknown) (unknown) 19:00 (units unknown) (unknown) (unknown) (no date) (unknown) (unknown) 19:01 09/06/22 (units unknown) (unknown) (unknown) (no date) (unknown) (unknown) 19:05 (units unknown) (unknown) (unknown) (no date) (unknown) (unknown) 2. CAD s/p stents s/ p ppm/aicd (units unknown) (unknown) (unknown) (no date) (unknown) (unknown) 3. Chronic atrial fibrillation (units unknown) (unknown) (unknown) (no date) (unknown) (unknown) 4. CKD stage 2-3 (units unknown) (unknown) (unknown) (no date) (unknown) (unknown) 5. Morbid obesity (units unknown) (unknown) (unknown) (no date) (unknown) (unknown) ABG Base Excess 6.0 H (units unknown) (unknown) (unknown) (no date) (unknown) (unknown) ABG Base Excess (units unknown) (unknown) (unknown) (no date) (unknown) (unknown) ABG HCO3 31 H (units unknown) (unknown) (unknown) (no date) (unknown) (unknown) ABG HCO3 (units unknown) (unknown) (unknown) (no date) (unknown) (unknown) ABG O2 Saturation 94 L (units unknown) (unknown) (unknown) (no date) (unknown) (unknown) ABG O2 Saturation (units unknown) (unknown) (unknown) (no date) (unknown) (unknown) ABG Total CO2 32 H (units unknown) (unknown) (unknown) (no date) (unknown) (unknown) ABG Total CO2 (units unknown) (unknown) (unknown) (no date) (unknown) (unknown) ABG pCO2 46.9 H (units unknown) (unknown) (unknown) (no date) (unknown) (unknown) ABG pCO2 (units unknown) (unknown) (unknown) (no date) (unknown) (unknown) ABG pH 7.42 (units unknown) (unknown) (unknown) (no date) (unknown) (unknown) ABG pH (units unknown) (unknown) (unknown) (no date) (unknown) (unknown) ABG pO2 70 L (units unknown) (unknown) (unknown) (no date) (unknown) (unknown) ABG pO2 (units unknown) (unknown) (unknown) (no date) (unknown) (unknown) ALT 19 (units unknown) (unknown) (unknown) (no date) (unknown) (unknown) ALT (units unknown) (unknown) (unknown) (no date) (unknown) (unknown) APTT 23 L (units unknown) (unknown) (unknown) (no date) (unknown) (unknown) APTT (units unknown) (unknown) (unknown) (no date) (unknown) (unknown) AST 20 (units unknown) (unknown) (unknown) (no date) (unknown) (unknown) AST (units unknown) (unknown) (unknown) (no date) (unknown) (unknown) Age/Sex: 57 / F (units unknown) (unknown) (unknown) (no date) (unknown) (unknown) Albumin 3.8 (units unknown) (unknown) (unknown) (no date) (unknown) (unknown) Albumin (units unknown) (unknown) (unknown) (no date) (unknown) (unknown) Albumin/Globulin Ratio 1.3 (units unknown) (unknown) (unknown) (no date) (unknown) (unknown) Albumin/Globulin Ratio (units unknown) (unknown) (unknown) (no date) (unknown) (unknown) Alkaline Phosphatase 81 (units unknown) (unknown) (unknown) (no date) (unknown) (unknown) Alkaline Phosphatase (units unknown) (unknown) (unknown) (no date) (unknown) (unknown) Allergies (units unknown) (unknown) (unknown) (no date) (unknown) (unknown) Allergy/AdvReac Type Severity Reaction Status Date / Time (units unknown) (unknown) (unknown) (no date) (unknown) (unknown) Assessment + Plan narrative: (units unknown) (unknown) (unknown) (no date) (unknown) (unknown) Assessment + Plan (units unknown) (unknown) (unknown) (no date) (unknown) (unknown) BUN 26 H (units unknown) (unknown) (unknown) (no date) (unknown) (unknown) BUN (units unknown) (unknown) (unknown) (no date) (unknown) (unknown) BUN/Creatinine Ratio 20.2 (units unknown) (unknown) (unknown) (no date) (unknown) (unknown) BUN/Creatinine Ratio (units unknown) (unknown) (unknown) (no date) (unknown) (unknown) Baso # (Auto) 100 (units unknown) (unknown) (unknown) (no date) (unknown) (unknown) Baso # (Auto) (units unknown) (unknown) (unknown) (no date) (unknown) (unknown) Baso % (Auto) 1.0 (units unknown) (unknown) (unknown) (no date) (unknown) (unknown) Baso % (Auto) (units unknown) (unknown) (unknown) (no date) (unknown) (unknown) Blood Pressure 100/4 9 L 104/52 L (units unknown) (unknown) (unknown) (no date) (unknown) (unknown) Blood Pressure 102/7 1 150/71 H (units unknown) (unknown) (unknown) (no date) (unknown) (unknown) Blood Pressure 104/4 8 L (units unknown) (unknown) (unknown) (no date) (unknown) (unknown) Blood Pressure 109/5 3 L 116/66 (units unknown) (unknown) (unknown) (no date) (unknown) (unknown) Blood Pressure 110/5 3 L 96/54 L (units unknown) (unknown) (unknown) (no date) (unknown) (unknown) Blood Pressure 112/5 4 L (units unknown) (unknown) (unknown) (no date) (unknown) (unknown) Blood Pressure 115/5 8 L (units unknown) (unknown) (unknown) (no date) (unknown) (unknown) Blood Pressure 125/5 9 L 132/54 L (units unknown) (unknown) (unknown) (no date) (unknown) (unknown) Blood Pressure 126/6 0 132/74 (units unknown) (unknown) (unknown) (no date) (unknown) (unknown) Blood Pressure 130/60 (units unknown) (unknown) (unknown) (no date) (unknown) (unknown) Blood Pressure 132/6 2 141/61 H (units unknown) (unknown) (unknown) (no date) (unknown) (unknown) Blood Pressure 137/68 (units unknown) (unknown) (unknown) (no date) (unknown) (unknown) Blood Pressure 137/7 8 143/76 H (units unknown) (unknown) (unknown) (no date) (unknown) (unknown) Blood Pressure 140/6 7 137/70 (units unknown) (unknown) (unknown) (no date) (unknown) (unknown) Blood Pressure 158/8 5 H (units unknown) (unknown) (unknown) (no date) (unknown) (unknown) Blood Pressure 165/108 H (units unknown) (unknown) (unknown) (no date) (unknown) (unknown) Blood Pressure 72/43 L (units unknown) (unknown) (unknown) (no date) (unknown) (unknown) Blood Pressure 76/42 L 93/54 L (units unknown) (unknown) (unknown) (no date) (unknown) (unknown) Blood Pressure 83/51 L 71/46 L (units unknown) (unknown) (unknown) (no date) (unknown) (unknown) Blood Pressure 93/54 L (units unknown) (unknown) (unknown) (no date) (unknown) (unknown) Blood Pressure (units unknown) (unknown) (unknown) (no date) (unknown) (unknown) CK-MB (CK-2) Rel Index TNP (units unknown) (unknown) (unknown) (no date) (unknown) (unknown) CK-MB (CK-2) Rel Index (units unknown) (unknown) (unknown) (no date) (unknown) (unknown) CK-MB (CK-2) TNP (units unknown) (unknown) (unknown) (no date) (unknown) (unknown) CK-MB (CK-2) (units unknown) (unknown) (unknown) (no date) (unknown) (unknown) CODE: Full (units unknown) (unknown) (unknown) (no date) (unknown) (unknown) COPD (chronic obstructive pulmonary disease) (units unknown) (unknown) (unknown) (no date) (unknown) (unknown) Calcium 9.0 (units unknown) (unknown) (unknown) (no date) (unknown) (unknown) Calcium (units unknown) (unknown) (unknown) (no date) (unknown) (unknown) Carbon Dioxide 35 H (units unknown) (unknown) (unknown) (no date) (unknown) (unknown) Carbon Dioxide (units unknown) (unknown) (unknown) (no date) (unknown) (unknown) Chief complaint: SOB monday/ [place] (units unknown) (unknown) (unknown) (no date) (unknown) (unknown) Chloride 100 (units unknown) (unknown) (unknown) (no date) (unknown) (unknown) Chloride (units unknown) (unknown) (unknown) (no date) (unknown) (unknown) Creatinine 1.29 H (units unknown) (unknown) (unknown) (no date) (unknown) (unknown) Creatinine (units unknown) (unknown) (unknown) (no date) (unknown) (unknown) : 1965 Acct:[id number] (units unknown) (unknown) (unknown) (no date) (unknown) (unknown) Date of Service: 09/06/22 (units unknown) (unknown) (unknown) (no date) (unknown) (unknown) Eos # (Auto) 100 (units unknown) (unknown) (unknown) (no date) (unknown) (unknown) Eos # (Auto) (units unknown) (unknown) (unknown) (no date) (unknown) (unknown) Eos % (Auto) 1.1 L (units unknown) (unknown) (unknown) (no date) (unknown) (unknown) Eos % (Auto) (units unknown) (unknown) (unknown) (no date) (unknown) (unknown) Estimated GFR 48 L (units unknown) (unknown) (unknown) (no date) (unknown) (unknown) Estimated GFR (units unknown) (unknown) (unknown) (no date) (unknown) (unknown) Exam (units unknown) (unknown) (unknown) (no date) (unknown) (unknown) FiO2 32 (units unknown) (unknown) (unknown) (no date) (unknown) (unknown) FiO2 (units unknown) (unknown) (unknown) (no date) (unknown) (unknown) Fish Containing Products Allergy Severe Anaphylaxis Verified 07/27/22 13:29 (units unknown) (unknown) (unknown) (no date) (unknown) (unknown) Globulin 2.9 (units unknown) (unknown) (unknown) (no date) (unknown) (unknown) Globulin (units unknown) (unknown) (unknown) (no date) (unknown) (unknown) Glucose 89 (units unknown) (unknown) (unknown) (no date) (unknown) (unknown) Glucose (units unknown) (unknown) (unknown) (no date) (unknown) (unknown) Hct 42.1 (units unknown) (unknown) (unknown) (no date) (unknown) (unknown) Hct (units unknown) (unknown) (unknown) (no date) (unknown) (unknown) Hgb 14.5 (units unknown) (unknown) (unknown) (no date) (unknown) (unknown) Hgb (units unknown) (unknown) (unknown) (no date) (unknown) (unknown) History + Physical Report (units unknown) (unknown) (unknown) (no date) (unknown) (unknown) History of Present Illness (units unknown) (unknown) (unknown) (no date) (unknown) (unknown) History (units unknown) (unknown) (unknown) (no date) (unknown) (unknown) Home Medications and Allergies (units unknown) (unknown) (unknown) (no date) (unknown) (unknown) Home Medications (units unknown) (unknown) (unknown) (no date) (unknown) (unknown) INR 1.3 (units unknown) (unknown) (unknown) (no date) (unknown) (unknown) INR (units unknown) (unknown) (unknown) (no date) (unknown) (unknown) [address] [address] (units unknown) (unknown) (unknown) (no date) (unknown) (unknown) Laboratory Results - last 24 hr (units unknown) (unknown) (unknown) (no date) (unknown) (unknown) Labs (units unknown) (unknown) (unknown) (no date) (unknown) (unknown) Labs: (units unknown) (unknown) (unknown) (no date) (unknown) (unknown) Lactate 1.0 (units unknown) (unknown) (unknown) (no date) (unknown) (unknown) Lactate (units unknown) (unknown) (unknown) (no date) (unknown) (unknown) Lipase 80 (units unknown) (unknown) (unknown) (no date) (unknown) (unknown) Lipase (units unknown) (unknown) (unknown) (no date) (unknown) (unknown) Lymph # (Auto) 2700 (units unknown) (unknown) (unknown) (no date) (unknown) (unknown) Lymph # (Auto) (units unknown) (unknown) (unknown) (no date) (unknown) (unknown) Lymph % (Auto) 26.3 (units unknown) (unknown) (unknown) (no date) (unknown) (unknown) Lymph % (Auto) (units unknown) (unknown) (unknown) (no date) (unknown) (unknown) MCH 32.5 (units unknown) (unknown) (unknown) (no date) (unknown) (unknown) MCH (units unknown) (unknown) (unknown) (no date) (unknown) (unknown) MCHC 34.6 (units unknown) (unknown) (unknown) (no date) (unknown) (unknown) MCHC (units unknown) (unknown) (unknown) (no date) (unknown) (unknown) MCV 93.9 (units unknown) (unknown) (unknown) (no date) (unknown) (unknown) MCV (units unknown) (unknown) (unknown) (no date) (unknown) (unknown) Magnesium 1.9 (units unknown) (unknown) (unknown) (no date) (unknown) (unknown) Magnesium (units unknown) (unknown) (unknown) (no date) (unknown) (unknown) Medical History (units unknown) (unknown) (unknown) (no date) (unknown) (unknown) Medication Instructions Recorded Confirmed Type (units unknown) (unknown) (unknown) (no date) (unknown) (unknown) Meds (units unknown) (unknown) (unknown) (no date) (unknown) (unknown) [place] # (Auto) 1000 H (units unknown) (unknown) (unknown) (no date) (unknown) (unknown) [place] # (Auto) (units unknown) (unknown) (unknown) (no date) (unknown) (unknown) [place] % (Auto) 9.6 (units unknown) (unknown) (unknown) (no date) (unknown) (unknown) [place] % (Auto) (units unknown) (unknown) (unknown) (no date) (unknown) (unknown) NT-Pro-B Natriuret Pep 1250 H (units unknown) (unknown) (unknown) (no date) (unknown) (unknown) NT-Pro-B Natriuret Pep (units unknown) (unknown) (unknown) (no date) (unknown) (unknown) Neut # (Auto) 6300 (units unknown) (unknown) (unknown) (no date) (unknown) (unknown) Neut # (Auto) (units unknown) (unknown) (unknown) (no date) (unknown) (unknown) Neut % (Auto) 62.0 (units unknown) (unknown) (unknown) (no date) (unknown) (unknown) Neut % (Auto) (units unknown) (unknown) (unknown) (no date) (unknown) (unknown) Objective (units unknown) (unknown) (unknown) (no date) (unknown) (unknown) Oxygen Delivery Method Nasal Cannula (units unknown) (unknown) (unknown) (no date) (unknown) (unknown) Oxygen Delivery Method (units unknown) (unknown) (unknown) (no date) (unknown) (unknown) Oxygen Flow Rate 3 (units unknown) (unknown) (unknown) (no date) (unknown) (unknown) Oxygen Flow Rate (units unknown) (unknown) (unknown) (no date) (unknown) (unknown) PFSH (units unknown) (unknown) (unknown) (no date) (unknown) (unknown) PT 15.5 H (units unknown) (unknown) (unknown) (no date) (unknown) (unknown) PT (units unknown) (unknown) (unknown) (no date) (unknown) (unknown) Patient: Ester Benavides MR#: [id number] (units unknown) (unknown) (unknown) (no date) (unknown) (unknown) Plt Count 232 (units unknown) (unknown) (unknown) (no date) (unknown) (unknown) Plt Count (units unknown) (unknown) (unknown) (no date) (unknown) (unknown) Potassium 3.4 (units unknown) (unknown) (unknown) (no date) (unknown) (unknown) Potassium (units unknown) (unknown) (unknown) (no date) (unknown) (unknown) Procalcitonin 0.06 (units unknown) (unknown) (unknown) (no date) (unknown) (unknown) Procalcitonin (units unknown) (unknown) (unknown) (no date) (unknown) (unknown) Provider: Joaquín Waggoner MD (units unknown) (unknown) (unknown) (no date) (unknown) (unknown) Pulse Oximetry 100 97 (units unknown) (unknown) (unknown) (no date) (unknown) (unknown) Pulse Oximetry 82 L (units unknown) (unknown) (unknown) (no date) (unknown) (unknown) Pulse Oximetry 93 94 (units unknown) (unknown) (unknown) (no date) (unknown) (unknown) Pulse Oximetry 93 96 (units unknown) (unknown) (unknown) (no date) (unknown) (unknown) Pulse Oximetry 94 (units unknown) (unknown) (unknown) (no date) (unknown) (unknown) Pulse Oximetry 95 (units unknown) (unknown) (unknown) (no date) (unknown) (unknown) Pulse Oximetry 96 98 (units unknown) (unknown) (unknown) (no date) (unknown) (unknown) Pulse Oximetry 96 (units unknown) (unknown) (unknown) (no date) (unknown) (unknown) Pulse Oximetry 97 96 (units unknown) (unknown) (unknown) (no date) (unknown) (unknown) Pulse Oximetry 97 97 (units unknown) (unknown) (unknown) (no date) (unknown) (unknown) Pulse Oximetry 97 (units unknown) (unknown) (unknown) (no date) (unknown) (unknown) Pulse Oximetry 98 97 (units unknown) (unknown) (unknown) (no date) (unknown) (unknown) Pulse Oximetry 98 98 (units unknown) (unknown) (unknown) (no date) (unknown) (unknown) Pulse Oximetry 98 (units unknown) (unknown) (unknown) (no date) (unknown) (unknown) Pulse Oximetry 99 98 95 (units unknown) (unknown) (unknown) (no date) (unknown) (unknown) Pulse Oximetry 99 98 98 (units unknown) (unknown) (unknown) (no date) (unknown) (unknown) Pulse Oximetry 99 98 (units unknown) (unknown) (unknown) (no date) (unknown) (unknown) Pulse Oximetry 99 (units unknown) (unknown) (unknown) (no date) (unknown) (unknown) Pulse Rate 74 (units unknown) (unknown) (unknown) (no date) (unknown) (unknown) Pulse Rate 78 (units unknown) (unknown) (unknown) (no date) (unknown) (unknown) Pulse Rate 79 77 78 (units unknown) (unknown) (unknown) (no date) (unknown) (unknown) Pulse Rate 79 (units unknown) (unknown) (unknown) (no date) (unknown) (unknown) Pulse Rate 80 44 L 80 (units unknown) (unknown) (unknown) (no date) (unknown) (unknown) Pulse Rate 80 (units unknown) (unknown) (unknown) (no date) (unknown) (unknown) Pulse Rate 81 78 (units unknown) (unknown) (unknown) (no date) (unknown) (unknown) Pulse Rate 81 80 (units unknown) (unknown) (unknown) (no date) (unknown) (unknown) Pulse Rate 82 73 (units unknown) (unknown) (unknown) (no date) (unknown) (unknown) Pulse Rate 82 82 (units unknown) (unknown) (unknown) (no date) (unknown) (unknown) Pulse Rate 83 75 (units unknown) (unknown) (unknown) (no date) (unknown) (unknown) Pulse Rate 83 80 (units unknown) (unknown) (unknown) (no date) (unknown) (unknown) Pulse Rate 84 (units unknown) (unknown) (unknown) (no date) (unknown) (unknown) Pulse Rate 85 83 (units unknown) (unknown) (unknown) (no date) (unknown) (unknown) Pulse Rate 86 80 83 (units unknown) (unknown) (unknown) (no date) (unknown) (unknown) Pulse Rate 86 (units unknown) (unknown) (unknown) (no date) (unknown) (unknown) Pulse Rate 93 H 82 (units unknown) (unknown) (unknown) (no date) (unknown) (unknown) Pulse Rate 93 H (units unknown) (unknown) (unknown) (no date) (unknown) (unknown) Pulse Rate 94 H 82 (units unknown) (unknown) (unknown) (no date) (unknown) (unknown) Pulse Rate 96 H (units unknown) (unknown) (unknown) (no date) (unknown) (unknown) RBC 4.48 (units unknown) (unknown) (unknown) (no date) (unknown) (unknown) RBC (units unknown) (unknown) (unknown) (no date) (unknown) (unknown) RDW 14.8 (units unknown) (unknown) (unknown) (no date) (unknown) (unknown) RDW (units unknown) (unknown) (unknown) (no date) (unknown) (unknown) Respiratory Rate 24 28 H 36 H (units unknown) (unknown) (unknown) (no date) (unknown) (unknown) Respiratory Rate 24 29 H (units unknown) (unknown) (unknown) (no date) (unknown) (unknown) Respiratory Rate 25 H (units unknown) (unknown) (unknown) (no date) (unknown) (unknown) Respiratory Rate 26 H (units unknown) (unknown) (unknown) (no date) (unknown) (unknown) Respiratory Rate 27 H (units unknown) (unknown) (unknown) (no date) (unknown) (unknown) Respiratory Rate 28 H 28 H (units unknown) (unknown) (unknown) (no date) (unknown) (unknown) Respiratory Rate 28 H 29 H (units unknown) (unknown) (unknown) (no date) (unknown) (unknown) Respiratory Rate 28 H (units unknown) (unknown) (unknown) (no date) (unknown) (unknown) Respiratory Rate 29 H 25 H (units unknown) (unknown) (unknown) (no date) (unknown) (unknown) Respiratory Rate 29 H 33 H (units unknown) (unknown) (unknown) (no date) (unknown) (unknown) Respiratory Rate 29 H 35 H 39 H (units unknown) (unknown) (unknown) (no date) (unknown) (unknown) Respiratory Rate 29 H (units unknown) (unknown) (unknown) (no date) (unknown) (unknown) Respiratory Rate 30 H (units unknown) (unknown) (unknown) (no date) (unknown) (unknown) Respiratory Rate 32 H 31 H (units unknown) (unknown) (unknown) (no date) (unknown) (unknown) Respiratory Rate 33 H 35 H (units unknown) (unknown) (unknown) (no date) (unknown) (unknown) Respiratory Rate 35 H 29 H (units unknown) (unknown) (unknown) (no date) (unknown) (unknown) Respiratory Rate 35 H 33 H (units unknown) (unknown) (unknown) (no date) (unknown) (unknown) Respiratory Rate 36 H (units unknown) (unknown) (unknown) (no date) (unknown) (unknown) Respiratory Rate 40 H 24 (units unknown) (unknown) (unknown) (no date) (unknown) (unknown) Respiratory Rate 41 H (units unknown) (unknown) (unknown) (no date) (unknown) (unknown) Signed By: (units unknown) (unknown) (unknown) (no date) (unknown) (unknown) Smoking Status: Current every day smoker (units unknown) (unknown) (unknown) (no date) (unknown) (unknown) Social History (units unknown) (unknown) (unknown) (no date) (unknown) (unknown) Sodium 140 (units unknown) (unknown) (unknown) (no date) (unknown) (unknown) Sodium (units unknown) (unknown) (unknown) (no date) (unknown) (unknown) Total Bilirubin 0.5 (units unknown) (unknown) (unknown) (no date) (unknown) (unknown) Total Bilirubin (units unknown) (unknown) (unknown) (no date) (unknown) (unknown) Total Creatine Kinas e < 20 L (units unknown) (unknown) (unknown) (no date) (unknown) (unknown) Total Creatine Kinase (units unknown) (unknown) (unknown) (no date) (unknown) (unknown) Total Protein 6.7 (units unknown) (unknown) (unknown) (no date) (unknown) (unknown) Total Protein (units unknown) (unknown) (unknown) (no date) (unknown) (unknown) Troponin I 0.013 (units unknown) (unknown) (unknown) (no date) (unknown) (unknown) Troponin I (units unknown) (unknown) (unknown) (no date) (unknown) (unknown) Vital Signs (units unknown) (unknown) (unknown) (no date) (unknown) (unknown) WBC 10.2 (units unknown) (unknown) (unknown) (no date) (unknown) (unknown) WBC (units unknown) (unknown) (unknown) (no date) (unknown) (unknown) [Embedded Image Not Available] (units unknown) (unknown) (unknown) (no date) (unknown) (unknown) acetaminophen [From Midol] Allergy Verified 07/06/21 13:33 (units unknown) (unknown) (unknown) (no date) (unknown) (unknown) activated powder inhaler (units unknown) (unknown) (unknown) (no date) (unknown) (unknown) aerosol inhaler (Ventolin HFA) Shortness Of Breath (units unknown) (unknown) (unknown) (no date) (unknown) (unknown) albuterol sulfate 90 mcg/actuation 2 puff inhalation QID PRN 07/25/22 07/25/22 (units unknown) (unknown) (unknown) (no date) (unknown) (unknown) amiodarone 200 mg tablet 100 mg PO DAILY 07/25/22 07/25/22 History (units unknown) (unknown) (unknown) (no date) (unknown) (unknown) apixaban 5 mg tablet (Eliquis) 5 mg PO BID 07/25/22 07/25/22 History (units unknown) (unknown) (unknown) (no date) (unknown) (unknown) bee pollen Allergy Severe Anaphylaxis Verified 07/28/22 10:43 (units unknown) (unknown) (unknown) (no date) (unknown) (unknown) budesonide 90 mcg/actuation breath 2 inh inhalation BID 07/25/22 07/25/22 (units unknown) (unknown) (unknown) (no date) (unknown) (unknown) codeine Allergy Verified 07/06/21 13:34 (units unknown) (unknown) (unknown) (no date) (unknown) (unknown) doxycycline AdvReac Vomiting Verified 07/28/22 10:43 (units unknown) (unknown) (unknown) (no date) (unknown) (unknown) erythromycin base Allergy Verified 07/06/21 13:34 (units unknown) (unknown) (unknown) (no date) (unknown) (unknown) furosemide 40 mg tablet 40 mg PO BID 07/25/22 07/25/22 History (units unknown) (unknown) (unknown) (no date) (unknown) (unknown) glipizide 5 mg tablet, extended 5 mg PO DAILY #30 tabs 07/28/22 Rx (units unknown) (unknown) (unknown) (no date) (unknown) (unknown) household members: spouse (units unknown) (unknown) (unknown) (no date) (unknown) (unknown) hydrocodone 5 mg-acetaminophen 325 1 tab PO Q6H PRN Pain (Scale Score 07/25/22 (units unknown) (unknown) (unknown) (no date) (unknown) (unknown) iodine Allergy Rash Verified 07/27/22 13:32 (units unknown) (unknown) (unknown) (no date) (unknown) (unknown) latex Allergy Rash Verified 07/27/22 13:29 (units unknown) (unknown) (unknown) (no date) (unknown) (unknown) lisinopril 5 mg tablet 5 mg PO DAILY 07/25/22 07/25/22 History (units unknown) (unknown) (unknown) (no date) (unknown) (unknown) lives independently: Yes (units unknown) (unknown) (unknown) (no date) (unknown) (unknown) metoprolol succinate 100 mg 100 mg PO BID 07/25/22 07/25/22 History (units unknown) (unknown) (unknown) (no date) (unknown) (unknown) mg tablet 4-6) (units unknown) (unknown) (unknown) (no date) (unknown) (unknown) montelukast 10 mg tablet 10 mg PO DAILY 07/25/22 07/25/22 History (units unknown) (unknown) (unknown) (no date) (unknown) (unknown) oxycodone 5 mg table t 5 mg PO Q4HR PRN pain #20 tabs 07/28/22 Rx (units unknown) (unknown) (unknown) (no date) (unknown) (unknown) pamabrom [From Midol ] Allergy Verified 07/06/21 13:33 (units unknown) (unknown) (unknown) (no date) (unknown) (unknown) prednisone 20 mg tablet 40 mg PO DAILY #3 tabs 07/28/22 Rx (units unknown) (unknown) (unknown) (no date) (unknown) (unknown) prednisone 5 mg tablet 5 mg PO DAILY #3 tabs 07/28/22 Rx (units unknown) (unknown) (unknown) (no date) (unknown) (unknown) release 24 hr (Glucotrol XL) (units unknown) (unknown) (unknown) (no date) (unknown) (unknown) shellfish derived Allergy Severe Anaphylaxis Verified 07/28/22 10:43 (units unknown) (unknown) (unknown) (no date) (unknown) (unknown) spironolactone 25 mg tablet 25 mg PO DAILY 07/25/22 07/25/22 History (units unknown) (unknown) (unknown) (no date) (unknown) (unknown) tablet,extended release 24 hr (units unknown) (unknown) Result panel 687 (unknown) (no date) (unknown) (unknown) 1.3 (units unknown) (unknown) (unknown) (no date) (unknown) (unknown) 15.5 seconds (unknown) (unknown) (no date) (unknown) (unknown) 35 seconds (unknown) (unknown) (no date) (unknown) (unknown) 35 seconds (unknown) Result panel 688 (unknown) (no date) (unknown) (unknown) 0.2 e.u./dl (unknown) (unknown) (no date) (unknown) (unknown) 1.010 (units unknown) (unknown) (unknown) (no date) (unknown) (unknown) 6.0 (units unknown) (unknown) (unknown) (no date) (unknown) (unknown) CLEAR (units unknown) (unknown) (unknown) (no date) (unknown) (unknown) NEGATIVE (units unknown) (unknown) (unknown) (no date) (unknown) (unknown) NEGATIVE g/dl (unknown) (unknown) (no date) (unknown) (unknown) YELLOW (units unknown) (unknown) (unknown) (no date) (unknown) (unknown) YELLOW (units unknown) (unknown) Result panel 689 (unknown) (no date) (unknown) (unknown) 0-1 /HPF (units unknown) (unknown) (unknown) (no date) (unknown) (unknown) 0.2 e.u./dl (unknown) (unknown) (no date) (unknown) (unknown) 1.010 (units unknown) (unknown) (unknown) (no date) (unknown) (unknown) 6.0 (units unknown) (unknown) (unknown) (no date) (unknown) (unknown) CLEAR (units unknown) (unknown) (unknown) (no date) (unknown) (unknown) Cult Not Indicated (units unknown) (unknown) (unknown) (no date) (unknown) (unknown) NEGATIVE (units unknown) (unknown) (unknown) (no date) (unknown) (unknown) NEGATIVE g/dl (unknown) (unknown) (no date) (unknown) (unknown) None Seen (units unknown) (unknown) (unknown) (no date) (unknown) (unknown) Occasional (0-1) (units unknown) (unknown) (unknown) (no date) (unknown) (unknown) YELLOW (units unknown) (unknown) (unknown) (no date) (unknown) (unknown) YELLOW (units unknown) (unknown) Result panel 690 (unknown) (no date) (unknown) (unknown) (no value) (units unknown) (unknown) (unknown) (no date) (unknown) (unknown) +---------+ [phone] +--------- (units unknown) (unknown) (unknown) (no date) (unknown) (unknown) +---------+ Hospital +--------- (units unknown) (unknown) (unknown) (no date) (unknown) (unknown) + - (units unknown) (unknown) (unknown) (no date) (unknown) (unknown) 07/25/2022. The patient had occasional PVCs during the exam. The heart rate (units unknown) (unknown) (unknown) (no date) (unknown) (unknown) 09/06/22 (units unknown) (unknown) (unknown) (no date) (unknown) (unknown) [address] [facility] (units unknown) (unknown) (unknown) (no date) (unknown) (unknown) [id number] (units unknown) (unknown) (unknown) (no date) (unknown) (unknown) : : [address] : : (units unknown) (unknown) (unknown) (no date) (unknown) (unknown) : : [id number] : : (units unknown) (unknown) (unknown) (no date) (unknown) (unknown) : : SHAKEEL Pinto : : (units unknown) (unknown) (unknown) (no date) (unknown) (unknown) : : Phone: [phone] : : (units unknown) (unknown) (unknown) (no date) (unknown) (unknown) :JOAQUÍN WAGGONER Performed By: Lolis Rosario : (units unknown) (unknown) (unknown) (no date) (unknown) (unknown) : Gender: Female BSA: 2.1 m2 : (units unknown) (unknown) (unknown) (no date) (unknown) (unknown) :: 1965 Age : 57 yrs BP: 111/57 mmHg: (units unknown) (unknown) (unknown) (no date) (unknown) (unknown) :[facility] ReadingLocation: Weight: 239 lb : (units unknown) (unknown) (unknown) (no date) (unknown) (unknown) :Name: ESTER BENAVIDES Study Date: 09/07/2022 Height: 64 in : (units unknown) (unknown) (unknown) (no date) (unknown) (unknown) :Ordering Physician: : (units unknown) (unknown) (unknown) (no date) (unknown) (unknown) :Reason For Study: CHF EXACERBATION : (units unknown) (unknown) (unknown) (no date) (unknown) (unknown) :Referring: JOAQUÍN WAGGONER : (units unknown) (unknown) (unknown) (no date) (unknown) (unknown) Accession Number: [id number] (units unknown) (unknown) (unknown) (no date) (unknown) (unknown) Age/Sex: 57 / F Date of Service: (units unknown) (unknown) (unknown) (no date) (unknown) (unknown) [place] [id number] (units unknown) (unknown) (unknown) (no date) (unknown) (unknown) Atria: The left atrium is borderline dilated. There is a catheter/pacemaker (units unknown) (unknown) (unknown) (no date) (unknown) (unknown) : 1965 Acct:[id number] (units unknown) (unknown) (unknown) (no date) (unknown) (unknown) EPSS: 2.1 cm LA vol: 73.6 ml (units unknown) (unknown) (unknown) (no date) (unknown) (unknown) Echocardiogram Report (units unknown) (unknown) (unknown) (no date) (unknown) (unknown) Echocardiography Report (units unknown) (unknown) (unknown) (no date) (unknown) (unknown) Electronically nicole d by: Yevgeniy Jara on 09/07/2022 (units unknown) (unknown) (unknown) (no date) (unknown) (unknown) FS: 14.4 % LA length (vol): 5.0 cm (units unknown) (unknown) (unknown) (no date) (unknown) (unknown) IVSd: 0.85 cm LA vol index: 34.9 ml/m2 (units unknown) (unknown) (unknown) (no date) (unknown) (unknown) Interpretation Summary (units unknown) (unknown) (unknown) (no date) (unknown) (unknown) [facility] (units unknown) (unknown) (unknown) (no date) (unknown) (unknown) [facility] (units unknown) (unknown) (unknown) (no date) (unknown) (unknown) LV nagy. diameter/BS A (cm/m2): 3.1 (units unknown) (unknown) (unknown) (no date) (unknown) (unknown) LV sys. diameter/BSA (cm/m2): 2.6 (units unknown) (unknown) (unknown) (no date) (unknown) (unknown) LVIDd: 6.5 cm LA A2 area: 20.6 cm2 (units unknown) (unknown) (unknown) (no date) (unknown) (unknown) LVIDs: 5.5 cm LA A4 area: 21.1 cm2 (units unknown) (unknown) (unknown) (no date) (unknown) (unknown) LVPWd: 0.93 cm (units unknown) (unknown) (unknown) (no date) (unknown) (unknown) Left Ventricle: The left ventricle is moderately dilated. Left ventricular (units unknown) (unknown) (unknown) (no date) (unknown) (unknown) Loc: AC 225-1 (units unknown) (unknown) (unknown) (no date) (unknown) (unknown) MMode/2D Measurement s + Calculations (units unknown) (unknown) (unknown) (no date) (unknown) (unknown) Ordering Provider: Joaquín Waggoner MD (units unknown) (unknown) (unknown) (no date) (unknown) (unknown) Patient: Ester Benavides MR#: [id number] (units unknown) (unknown) (unknown) (no date) (unknown) (unknown) Pericardium/ Pleura There is no pericardial effusion. There is no pleural (units unknown) (unknown) (unknown) (no date) (unknown) (unknown) Procedure: EC echo limited (units unknown) (unknown) (unknown) (no date) (unknown) (unknown) Procedure: The study quality was technically limited. The study quality was (units unknown) (unknown) (unknown) (no date) (unknown) (unknown) RA : 20.7 ml/m2 (units unknown) (unknown) (unknown) (no date) (unknown) (unknown) RA area: 15.2 cm2 (units unknown) (unknown) (unknown) (no date) (unknown) (unknown) RA long axis: 4.5 cm (units unknown) (unknown) (unknown) (no date) (unknown) (unknown) RA vol: 43.6 ml (units unknown) (unknown) (unknown) (no date) (unknown) (unknown) Reading Physician:01:28 PM (units unknown) (unknown) (unknown) (no date) (unknown) (unknown) Right Ventricle: There is a pacemaker lead in the right ventricle. (units unknown) (unknown) (unknown) (no date) (unknown) (unknown) Signed (units unknown) (unknown) (unknown) (no date) (unknown) (unknown) The ejection fractio n is estimated to be 25-30%. (units unknown) (unknown) (unknown) (no date) (unknown) (unknown) There has been no significant change since the previous exam. (units unknown) (unknown) (unknown) (no date) (unknown) (unknown) _ (units unknown) (unknown) (unknown) (no date) (unknown) (unknown) effusion. (units unknown) (unknown) (unknown) (no date) (unknown) (unknown) estimated to be 25-30%. There has been no significant change since the (units unknown) (unknown) (unknown) (no date) (unknown) (unknown) lead seen in the right atrium. Right atrial size is normal. (units unknown) (unknown) (unknown) (no date) (unknown) (unknown) previous exam. (units unknown) (unknown) (unknown) (no date) (unknown) (unknown) ranged between 69-92 bpm during the study. (units unknown) (unknown) (unknown) (no date) (unknown) (unknown) technically adequate . Comparison is made with the echocardiogram of (units unknown) (unknown) (unknown) (no date) (unknown) (unknown) wall thickness is at the upper limits of normal. The ejection fraction is (units unknown) (unknown) Result panel [id number] (unknown) (no date) (unknown) (unknown) (no value) (units unknown) (unknown) (unknown) (no date) (unknown) (unknown) ([employer]Air RespiClick) (units unknown) (unknown) (unknown) (no date) (unknown) (unknown) (past 8 hours): (units unknown) (unknown) (unknown) (no date) (unknown) (unknown) ---acute on chronic CHFrEF (units unknown) (unknown) (unknown) (no date) (unknown) (unknown) ---possible acute COPD exacerbation (units unknown) (unknown) (unknown) (no date) (unknown) (unknown) -BMI 41, will affect illness healing (units unknown) (unknown) (unknown) (no date) (unknown) (unknown) -continue eliquis, metoprolol, and amiodarone (units unknown) (unknown) (unknown) (no date) (unknown) (unknown) -continue lisinopril , eliquis, metoprolol (units unknown) (unknown) (unknown) (no date) (unknown) (unknown) -continue metoprolol , lisinopril (units unknown) (unknown) (unknown) (no date) (unknown) (unknown) -creatinine 1.29, near baseline (units unknown) (unknown) (unknown) (no date) (unknown) (unknown) -echo done just one month ago showing severe global hypokinesis and EF 25-30%, (units unknown) (unknown) (unknown) (no date) (unknown) (unknown) -for copd exacerbation will order steroids, azithromycin, and nebs (units unknown) (unknown) (unknown) (no date) (unknown) (unknown) -for now hold spironolactone (units unknown) (unknown) (unknown) (no date) (unknown) (unknown) -hold oral medications (units unknown) (unknown) (unknown) (no date) (unknown) (unknown) -ordered for IV lasix, low salt diet (units unknown) (unknown) (unknown) (no date) (unknown) (unknown) -ordered insulin sliding scale (units unknown) (unknown) (unknown) (no date) (unknown) (unknown) -patient has history of dietary nonadherence (units unknown) (unknown) (unknown) (no date) (unknown) (unknown) -start lantus as she is hyperglycemic likely secondary to steroids (units unknown) (unknown) (unknown) (no date) (unknown) (unknown) -symptoms are more consistent with acute CHF exacerbation with elevated BNP, (units unknown) (unknown) (unknown) (no date) (unknown) (unknown) -trend daily (units unknown) (unknown) (unknown) (no date) (unknown) (unknown) 0.013. BNP 1250. Procal 0.06. Chest xray reviewed by me and showed cardiomegaly (units unknown) (unknown) (unknown) (no date) (unknown) (unknown) 09/06/22 09/06/22 09/06/22 (units unknown) (unknown) (unknown) (no date) (unknown) (unknown) 09/06/22 09/06/22 (units unknown) (unknown) (unknown) (no date) (unknown) (unknown) 09/06/22 17:16 (units unknown) (unknown) (unknown) (no date) (unknown) (unknown) 09/06/22 2315 (units unknown) (unknown) (unknown) (no date) (unknown) (unknown) 09/06/22 History (units unknown) (unknown) (unknown) (no date) (unknown) (unknown) 09/06/22 (units unknown) (unknown) (unknown) (no date) (unknown) (unknown) 1. Acute on chronic respiratory failure secondary to: (units unknown) (unknown) (unknown) (no date) (unknown) (unknown) 14 systems reviewed and negative aside from what is noted in HPI (units unknown) (unknown) (unknown) (no date) (unknown) (unknown) 140, k 3.4, creatinine 1.29. INR 1.3. ABG pH 7.42, pCO2 46.9. Lactate 1.0. Trop (units unknown) (unknown) (unknown) (no date) (unknown) (unknown) 16:39 09/06/22 (units unknown) (unknown) (unknown) (no date) (unknown) (unknown) 16:42 09/06/22 (units unknown) (unknown) (unknown) (no date) (unknown) (unknown) 16:42 (units unknown) (unknown) (unknown) (no date) (unknown) (unknown) 16:45 09/06/22 (units unknown) (unknown) (unknown) (no date) (unknown) (unknown) 16:45 (units unknown) (unknown) (unknown) (no date) (unknown) (unknown) 16:50 09/06/22 (units unknown) (unknown) (unknown) (no date) (unknown) (unknown) 17:00 09/06/22 (units unknown) (unknown) (unknown) (no date) (unknown) (unknown) 17:01 09/06/22 (units unknown) (unknown) (unknown) (no date) (unknown) (unknown) 17:01 (units unknown) (unknown) (unknown) (no date) (unknown) (unknown) 17:06 09/06/22 (units unknown) (unknown) (unknown) (no date) (unknown) (unknown) 17:10 09/06/22 (units unknown) (unknown) (unknown) (no date) (unknown) (unknown) 17:10 17:16 17:16 (units unknown) (unknown) (unknown) (no date) (unknown) (unknown) 17:10 (units unknown) (unknown) (unknown) (no date) (unknown) (unknown) 17:15 09/06/22 (units unknown) (unknown) (unknown) (no date) (unknown) (unknown) 17:15 (units unknown) (unknown) (unknown) (no date) (unknown) (unknown) 17:16 17:16 (units unknown) (unknown) (unknown) (no date) (unknown) (unknown) 17:21 09/06/22 (units unknown) (unknown) (unknown) (no date) (unknown) (unknown) 17:26 09/06/22 (units unknown) (unknown) (unknown) (no date) (unknown) (unknown) 17:26 (units unknown) (unknown) (unknown) (no date) (unknown) (unknown) 17:30 09/06/22 (units unknown) (unknown) (unknown) (no date) (unknown) (unknown) 17:30 (units unknown) (unknown) (unknown) (no date) (unknown) (unknown) 17:36 09/06/22 (units unknown) (unknown) (unknown) (no date) (unknown) (unknown) 17:38 09/06/22 (units unknown) (unknown) (unknown) (no date) (unknown) (unknown) 17:38 (units unknown) (unknown) (unknown) (no date) (unknown) (unknown) 17:40 09/06/22 (units unknown) (unknown) (unknown) (no date) (unknown) (unknown) 17:40 (units unknown) (unknown) (unknown) (no date) (unknown) (unknown) 17:42 09/06/22 (units unknown) (unknown) (unknown) (no date) (unknown) (unknown) 17:45 (units unknown) (unknown) (unknown) (no date) (unknown) (unknown) 17:46 09/06/22 (units unknown) (unknown) (unknown) (no date) (unknown) (unknown) 17:48 09/06/22 (units unknown) (unknown) (unknown) (no date) (unknown) (unknown) 17:48 (units unknown) (unknown) (unknown) (no date) (unknown) (unknown) 17:50 09/06/22 (units unknown) (unknown) (unknown) (no date) (unknown) (unknown) 17:50 (units unknown) (unknown) (unknown) (no date) (unknown) (unknown) 17:55 09/06/22 (units unknown) (unknown) (unknown) (no date) (unknown) (unknown) 18:00 09/06/22 (units unknown) (unknown) (unknown) (no date) (unknown) (unknown) 18:00 (units unknown) (unknown) (unknown) (no date) (unknown) (unknown) 18:05 09/06/22 (units unknown) (unknown) (unknown) (no date) (unknown) (unknown) 18:06 09/06/22 (units unknown) (unknown) (unknown) (no date) (unknown) (unknown) 18:06 (units unknown) (unknown) (unknown) (no date) (unknown) (unknown) 18:10 09/06/22 (units unknown) (unknown) (unknown) (no date) (unknown) (unknown) 18:10 (units unknown) (unknown) (unknown) (no date) (unknown) (unknown) 18:15 09/06/22 (units unknown) (unknown) (unknown) (no date) (unknown) (unknown) 18:20 09/06/22 (units unknown) (unknown) (unknown) (no date) (unknown) (unknown) 18:20 (units unknown) (unknown) (unknown) (no date) (unknown) (unknown) 18:25 09/06/22 (units unknown) (unknown) (unknown) (no date) (unknown) (unknown) 18:26 04/25/23 (units unknown) (unknown) (unknown) (no date) (unknown) (unknown) 18:26 (units unknown) (unknown) (unknown) (no date) (unknown) (unknown) 18:30 09/06/22 (units unknown) (unknown) (unknown) (no date) (unknown) (unknown) 18:30 (units unknown) (unknown) (unknown) (no date) (unknown) (unknown) 18:35 09/06/22 (units unknown) (unknown) (unknown) (no date) (unknown) (unknown) 18:40 09/06/22 (units unknown) (unknown) (unknown) (no date) (unknown) (unknown) 18:40 (units unknown) (unknown) (unknown) (no date) (unknown) (unknown) 18:45 09/06/22 (units unknown) (unknown) (unknown) (no date) (unknown) (unknown) 18:46 09/06/22 (units unknown) (unknown) (unknown) (no date) (unknown) (unknown) 18:46 (units unknown) (unknown) (unknown) (no date) (unknown) (unknown) 18:50 09/06/22 (units unknown) (unknown) (unknown) (no date) (unknown) (unknown) 18:50 (units unknown) (unknown) (unknown) (no date) (unknown) (unknown) 18:55 09/06/22 (units unknown) (unknown) (unknown) (no date) (unknown) (unknown) [id number] (units unknown) (unknown) (unknown) (no date) (unknown) (unknown) 19:00 (units unknown) (unknown) (unknown) (no date) (unknown) (unknown) 19:01 09/06/22 (units unknown) (unknown) (unknown) (no date) (unknown) (unknown) 19:05 (units unknown) (unknown) (unknown) (no date) (unknown) (unknown) 2. CAD s/p stents s/ p ppm/aicd (units unknown) (unknown) (unknown) (no date) (unknown) (unknown) 3. Chronic atrial fibrillation (units unknown) (unknown) (unknown) (no date) (unknown) (unknown) 4. CKD stage 2 (units unknown) (unknown) (unknown) (no date) (unknown) (unknown) 5. Morbid obesity (units unknown) (unknown) (unknown) (no date) (unknown) (unknown) 6. Type 2 Diabetes (units unknown) (unknown) (unknown) (no date) (unknown) (unknown) 80s, respiratory rat e in 20s-30s, blood pressure 70-100s/40s-50s. Sats in the (units unknown) (unknown) (unknown) (no date) (unknown) (unknown) 90s on 3L. Labs reviewed by me and notable for WBC 10.2, hgb 14.5, plts 232. Na (units unknown) (unknown) (unknown) (no date) (unknown) (unknown) ?Ms. Benavides is a 57W with PMH COPD on 3L oxygen, smoker, CHFrEF, CAD s/p stents, (units unknown) (unknown) (unknown) (no date) (unknown) (unknown) ABD: soft, nontender , nondistended, no organomegaly, normal bowel sounds (units unknown) (unknown) (unknown) (no date) (unknown) (unknown) ABG Base Excess 6.0 H (units unknown) (unknown) (unknown) (no date) (unknown) (unknown) ABG Base Excess (units unknown) (unknown) (unknown) (no date) (unknown) (unknown) ABG HCO3 31 H (units unknown) (unknown) (unknown) (no date) (unknown) (unknown) ABG HCO3 (units unknown) (unknown) (unknown) (no date) (unknown) (unknown) ABG O2 Saturation 94 L (units unknown) (unknown) (unknown) (no date) (unknown) (unknown) ABG O2 Saturation (units unknown) (unknown) (unknown) (no date) (unknown) (unknown) ABG Total CO2 32 H (units unknown) (unknown) (unknown) (no date) (unknown) (unknown) ABG Total CO2 (units unknown) (unknown) (unknown) (no date) (unknown) (unknown) ABG pCO2 46.9 H (units unknown) (unknown) (unknown) (no date) (unknown) (unknown) ABG pCO2 (units unknown) (unknown) (unknown) (no date) (unknown) (unknown) ABG pH 7.42 (units unknown) (unknown) (unknown) (no date) (unknown) (unknown) ABG pH (units unknown) (unknown) (unknown) (no date) (unknown) (unknown) ABG pO2 70 L (units unknown) (unknown) (unknown) (no date) (unknown) (unknown) ABG pO2 (units unknown) (unknown) (unknown) (no date) (unknown) (unknown) ALT 19 (units unknown) (unknown) (unknown) (no date) (unknown) (unknown) ALT (units unknown) (unknown) (unknown) (no date) (unknown) (unknown) APTT 23 L (units unknown) (unknown) (unknown) (no date) (unknown) (unknown) APTT (units unknown) (unknown) (unknown) (no date) (unknown) (unknown) AST 20 (units unknown) (unknown) (unknown) (no date) (unknown) (unknown) AST (units unknown) (unknown) (unknown) (no date) (unknown) (unknown) Age/Sex: 57 / F (units unknown) (unknown) (unknown) (no date) (unknown) (unknown) Albumin 3.8 (units unknown) (unknown) (unknown) (no date) (unknown) (unknown) Albumin (units unknown) (unknown) (unknown) (no date) (unknown) (unknown) Albumin/Globulin Ratio 1.3 (units unknown) (unknown) (unknown) (no date) (unknown) (unknown) Albumin/Globulin Ratio (units unknown) (unknown) (unknown) (no date) (unknown) (unknown) Alkaline Phosphatase 81 (units unknown) (unknown) (unknown) (no date) (unknown) (unknown) Alkaline Phosphatase (units unknown) (unknown) (unknown) (no date) (unknown) (unknown) Allergies (units unknown) (unknown) (unknown) (no date) (unknown) (unknown) Allergy/AdvReac Type Severity Reaction Status Date / Time (units unknown) (unknown) (unknown) (no date) (unknown) (unknown) Assessment + Plan narrative: (units unknown) (unknown) (unknown) (no date) (unknown) (unknown) Assessment + Plan (units unknown) (unknown) (unknown) (no date) (unknown) (unknown) BUN 26 H (units unknown) (unknown) (unknown) (no date) (unknown) (unknown) BUN (units unknown) (unknown) (unknown) (no date) (unknown) (unknown) BUN/Creatinine Ratio 20.2 (units unknown) (unknown) (unknown) (no date) (unknown) (unknown) BUN/Creatinine Ratio (units unknown) (unknown) (unknown) (no date) (unknown) (unknown) Baso # (Auto) 100 (units unknown) (unknown) (unknown) (no date) (unknown) (unknown) Baso # (Auto) (units unknown) (unknown) (unknown) (no date) (unknown) (unknown) Baso % (Auto) 1.0 (units unknown) (unknown) (unknown) (no date) (unknown) (unknown) Baso % (Auto) (units unknown) (unknown) (unknown) (no date) (unknown) (unknown) Blood Pressure 100/4 9 L 104/52 L (units unknown) (unknown) (unknown) (no date) (unknown) (unknown) Blood Pressure 102/7 1 150/71 H (units unknown) (unknown) (unknown) (no date) (unknown) (unknown) Blood Pressure 104/4 8 L (units unknown) (unknown) (unknown) (no date) (unknown) (unknown) Blood Pressure 109/5 3 L 116/66 (units unknown) (unknown) (unknown) (no date) (unknown) (unknown) Blood Pressure 110/5 3 L 96/54 L (units unknown) (unknown) (unknown) (no date) (unknown) (unknown) Blood Pressure 112/5 4 L (units unknown) (unknown) (unknown) (no date) (unknown) (unknown) Blood Pressure 115/5 8 L (units unknown) (unknown) (unknown) (no date) (unknown) (unknown) Blood Pressure 125/5 9 L 132/54 L (units unknown) (unknown) (unknown) (no date) (unknown) (unknown) Blood Pressure 126/6 0 132/74 (units unknown) (unknown) (unknown) (no date) (unknown) (unknown) Blood Pressure 130/60 (units unknown) (unknown) (unknown) (no date) (unknown) (unknown) Blood Pressure 132/6 2 141/61 H (units unknown) (unknown) (unknown) (no date) (unknown) (unknown) Blood Pressure 137/68 (units unknown) (unknown) (unknown) (no date) (unknown) (unknown) Blood Pressure 137/7 8 143/76 H (units unknown) (unknown) (unknown) (no date) (unknown) (unknown) Blood Pressure 140/6 7 137/70 (units unknown) (unknown) (unknown) (no date) (unknown) (unknown) Blood Pressure 158/8 5 H (units unknown) (unknown) (unknown) (no date) (unknown) (unknown) Blood Pressure 165/108 H (units unknown) (unknown) (unknown) (no date) (unknown) (unknown) Blood Pressure 72/43 L (units unknown) (unknown) (unknown) (no date) (unknown) (unknown) Blood Pressure 76/42 L 93/54 L (units unknown) (unknown) (unknown) (no date) (unknown) (unknown) Blood Pressure 83/51 L 71/46 L (units unknown) (unknown) (unknown) (no date) (unknown) (unknown) Blood Pressure 93/54 L (units unknown) (unknown) (unknown) (no date) (unknown) (unknown) Blood Pressure (units unknown) (unknown) (unknown) (no date) (unknown) (unknown) CK-MB (CK-2) Rel Index TNP (units unknown) (unknown) (unknown) (no date) (unknown) (unknown) CK-MB (CK-2) Rel Index (units unknown) (unknown) (unknown) (no date) (unknown) (unknown) CK-MB (CK-2) TNP (units unknown) (unknown) (unknown) (no date) (unknown) (unknown) CK-MB (CK-2) (units unknown) (unknown) (unknown) (no date) (unknown) (unknown) CODE: Full (units unknown) (unknown) (unknown) (no date) (unknown) (unknown) COPD (chronic obstructive pulmonary disease) (units unknown) (unknown) (unknown) (no date) (unknown) (unknown) CV: irregular, no murmurs (units unknown) (unknown) (unknown) (no date) (unknown) (unknown) Calcium 9.0 (units unknown) (unknown) (unknown) (no date) (unknown) (unknown) Calcium (units unknown) (unknown) (unknown) (no date) (unknown) (unknown) Carbon Dioxide 35 H (units unknown) (unknown) (unknown) (no date) (unknown) (unknown) Carbon Dioxide (units unknown) (unknown) (unknown) (no date) (unknown) (unknown) Chief complaint: SOB monday/ [place] (units unknown) (unknown) (unknown) (no date) (unknown) (unknown) Chloride 100 (units unknown) (unknown) (unknown) (no date) (unknown) (unknown) Chloride (units unknown) (unknown) (unknown) (no date) (unknown) (unknown) Creatinine 1.29 H (units unknown) (unknown) (unknown) (no date) (unknown) (unknown) Creatinine (units unknown) (unknown) (unknown) (no date) (unknown) (unknown) : 1965 Acct:[id number] (units unknown) (unknown) (unknown) (no date) (unknown) (unknown) Date Patient Seen: 09/06/22 (units unknown) (unknown) (unknown) (no date) (unknown) (unknown) Date of Service: 09/06/22 (units unknown) (unknown) (unknown) (no date) (unknown) (unknown) EXT: warm and well perfused with no edema (units unknown) (unknown) (unknown) (no date) (unknown) (unknown) Eos # (Auto) 100 (units unknown) (unknown) (unknown) (no date) (unknown) (unknown) Eos # (Auto) (units unknown) (unknown) (unknown) (no date) (unknown) (unknown) Eos % (Auto) 1.1 L (units unknown) (unknown) (unknown) (no date) (unknown) (unknown) Eos % (Auto) (units unknown) (unknown) (unknown) (no date) (unknown) (unknown) Estimated GFR 48 L (units unknown) (unknown) (unknown) (no date) (unknown) (unknown) Estimated GFR (units unknown) (unknown) (unknown) (no date) (unknown) (unknown) Exam Narrative: (units unknown) (unknown) (unknown) (no date) (unknown) (unknown) Exam (units unknown) (unknown) (unknown) (no date) (unknown) (unknown) FiO2 32 (units unknown) (unknown) (unknown) (no date) (unknown) (unknown) FiO2 (units unknown) (unknown) (unknown) (no date) (unknown) (unknown) Fish Containing Products Allergy Severe Anaphylaxis Verified 07/27/22 13:29 (units unknown) (unknown) (unknown) (no date) (unknown) (unknown) GEN: in respiratory distress (units unknown) (unknown) (unknown) (no date) (unknown) (unknown) Globulin 2.9 (units unknown) (unknown) (unknown) (no date) (unknown) (unknown) Globulin (units unknown) (unknown) (unknown) (no date) (unknown) (unknown) Glucose 89 (units unknown) (unknown) (unknown) (no date) (unknown) (unknown) Glucose (units unknown) (unknown) (unknown) (no date) (unknown) (unknown) HEENT: moist mucous membranes, PERRL (units unknown) (unknown) (unknown) (no date) (unknown) (unknown) Hct 42.1 (units unknown) (unknown) (unknown) (no date) (unknown) (unknown) Hct (units unknown) (unknown) (unknown) (no date) (unknown) (unknown) Hgb 14.5 (units unknown) (unknown) (unknown) (no date) (unknown) (unknown) Hgb (units unknown) (unknown) (unknown) (no date) (unknown) (unknown) History + Physical Report (units unknown) (unknown) (unknown) (no date) (unknown) (unknown) History of Present Illness (units unknown) (unknown) (unknown) (no date) (unknown) (unknown) History (units unknown) (unknown) (unknown) (no date) (unknown) (unknown) Home Medications and Allergies (units unknown) (unknown) (unknown) (no date) (unknown) (unknown) Home Medications (units unknown) (unknown) (unknown) (no date) (unknown) (unknown) I have discussed marguerite n and obtained history from the patient. I have discussed (units unknown) (unknown) (unknown) (no date) (unknown) (unknown) INR 1.3 (units unknown) (unknown) (unknown) (no date) (unknown) (unknown) INR (units unknown) (unknown) (unknown) (no date) (unknown) (unknown) In the ED workup was done, vitals notable for afebrlie, heart rate in the 70s (units unknown) (unknown) (unknown) (no date) (unknown) (unknown) [address] [id number] (units unknown) (unknown) (unknown) (no date) (unknown) (unknown) Laboratory Results - last 24 hr (units unknown) (unknown) (unknown) (no date) (unknown) (unknown) Labs (units unknown) (unknown) (unknown) (no date) (unknown) (unknown) Labs: (units unknown) (unknown) (unknown) (no date) (unknown) (unknown) Lactate 1.0 (units unknown) (unknown) (unknown) (no date) (unknown) (unknown) Lactate (units unknown) (unknown) (unknown) (no date) (unknown) (unknown) Lipase 80 (units unknown) (unknown) (unknown) (no date) (unknown) (unknown) Lipase (units unknown) (unknown) (unknown) (no date) (unknown) (unknown) Lymph # (Auto) 2700 (units unknown) (unknown) (unknown) (no date) (unknown) (unknown) Lymph # (Auto) (units unknown) (unknown) (unknown) (no date) (unknown) (unknown) Lymph % (Auto) 26.3 (units unknown) (unknown) (unknown) (no date) (unknown) (unknown) Lymph % (Auto) (units unknown) (unknown) (unknown) (no date) (unknown) (unknown) MCH 32.5 (units unknown) (unknown) (unknown) (no date) (unknown) (unknown) MCH (units unknown) (unknown) (unknown) (no date) (unknown) (unknown) MCHC 34.6 (units unknown) (unknown) (unknown) (no date) (unknown) (unknown) MCHC (units unknown) (unknown) (unknown) (no date) (unknown) (unknown) MCV 93.9 (units unknown) (unknown) (unknown) (no date) (unknown) (unknown) MCV (units unknown) (unknown) (unknown) (no date) (unknown) (unknown) Magnesium 1.9 (units unknown) (unknown) (unknown) (no date) (unknown) (unknown) Magnesium (units unknown) (unknown) (unknown) (no date) (unknown) (unknown) Medical History (units unknown) (unknown) (unknown) (no date) (unknown) (unknown) Medication Instructions Recorded Confirmed Type (units unknown) (unknown) (unknown) (no date) (unknown) (unknown) Meds (units unknown) (unknown) (unknown) (no date) (unknown) (unknown) [place] # (Auto) 1000 H (units unknown) (unknown) (unknown) (no date) (unknown) (unknown) [place] # (Auto) (units unknown) (unknown) (unknown) (no date) (unknown) (unknown) [place] % (Auto) 9.6 (units unknown) (unknown) (unknown) (no date) (unknown) (unknown) [place] % (Auto) (units unknown) (unknown) (unknown) (no date) (unknown) (unknown) NECK: trachea midline, no JVD (units unknown) (unknown) (unknown) (no date) (unknown) (unknown) NEURO: awake, alert, oriented, no focal deficits (units unknown) (unknown) (unknown) (no date) (unknown) (unknown) NT-Pro-B Natriuret Pep 1250 H (units unknown) (unknown) (unknown) (no date) (unknown) (unknown) NT-Pro-B Natriuret Pep (units unknown) (unknown) (unknown) (no date) (unknown) (unknown) Narrative (units unknown) (unknown) (unknown) (no date) (unknown) (unknown) Narrative: (units unknown) (unknown) (unknown) (no date) (unknown) (unknown) Neut # (Auto) 6300 (units unknown) (unknown) (unknown) (no date) (unknown) (unknown) Neut # (Auto) (units unknown) (unknown) (unknown) (no date) (unknown) (unknown) Neut % (Auto) 62.0 (units unknown) (unknown) (unknown) (no date) (unknown) (unknown) Neut % (Auto) (units unknown) (unknown) (unknown) (no date) (unknown) (unknown) Objective (units unknown) (unknown) (unknown) (no date) (unknown) (unknown) Oxygen Delivery Method Nasal Cannula (units unknown) (unknown) (unknown) (no date) (unknown) (unknown) Oxygen Delivery Method (units unknown) (unknown) (unknown) (no date) (unknown) (unknown) Oxygen Flow Rate 3 (units unknown) (unknown) (unknown) (no date) (unknown) (unknown) Oxygen Flow Rate (units unknown) (unknown) (unknown) (no date) (unknown) (unknown) PFSH (units unknown) (unknown) (unknown) (no date) (unknown) (unknown) PT 15.5 H (units unknown) (unknown) (unknown) (no date) (unknown) (unknown) PT (units unknown) (unknown) (unknown) (no date) (unknown) (unknown) PULM: decreased air sound bilaterally, with bilateral crackles (units unknown) (unknown) (unknown) (no date) (unknown) (unknown) Patient: Ester Benavides MR#: [id number] (units unknown) (unknown) (unknown) (no date) (unknown) (unknown) Plt Count 232 (units unknown) (unknown) (unknown) (no date) (unknown) (unknown) Plt Count (units unknown) (unknown) (unknown) (no date) (unknown) (unknown) Potassium 3.4 (units unknown) (unknown) (unknown) (no date) (unknown) (unknown) Potassium (units unknown) (unknown) (unknown) (no date) (unknown) (unknown) Procalcitonin 0.06 (units unknown) (unknown) (unknown) (no date) (unknown) (unknown) Procalcitonin (units unknown) (unknown) (unknown) (no date) (unknown) (unknown) Provider: Joaquín Waggoner MD (units unknown) (unknown) (unknown) (no date) (unknown) (unknown) Proxy: jon Chacon (units unknown) (unknown) (unknown) (no date) (unknown) (unknown) Pulse Oximetry 100 97 (units unknown) (unknown) (unknown) (no date) (unknown) (unknown) Pulse Oximetry 82 L (units unknown) (unknown) (unknown) (no date) (unknown) (unknown) Pulse Oximetry 93 94 (units unknown) (unknown) (unknown) (no date) (unknown) (unknown) Pulse Oximetry 93 96 (units unknown) (unknown) (unknown) (no date) (unknown) (unknown) Pulse Oximetry 94 (units unknown) (unknown) (unknown) (no date) (unknown) (unknown) Pulse Oximetry 95 (units unknown) (unknown) (unknown) (no date) (unknown) (unknown) Pulse Oximetry 96 98 (units unknown) (unknown) (unknown) (no date) (unknown) (unknown) Pulse Oximetry 96 (units unknown) (unknown) (unknown) (no date) (unknown) (unknown) Pulse Oximetry 97 96 (units unknown) (unknown) (unknown) (no date) (unknown) (unknown) Pulse Oximetry 97 97 (units unknown) (unknown) (unknown) (no date) (unknown) (unknown) Pulse Oximetry 97 (units unknown) (unknown) (unknown) (no date) (unknown) (unknown) Pulse Oximetry 98 97 (units unknown) (unknown) (unknown) (no date) (unknown) (unknown) Pulse Oximetry 98 98 (units unknown) (unknown) (unknown) (no date) (unknown) (unknown) Pulse Oximetry 98 (units unknown) (unknown) (unknown) (no date) (unknown) (unknown) Pulse Oximetry 99 98 95 (units unknown) (unknown) (unknown) (no date) (unknown) (unknown) Pulse Oximetry 99 98 98 (units unknown) (unknown) (unknown) (no date) (unknown) (unknown) Pulse Oximetry 99 98 (units unknown) (unknown) (unknown) (no date) (unknown) (unknown) Pulse Oximetry 99 (units unknown) (unknown) (unknown) (no date) (unknown) (unknown) Pulse Rate 74 (units unknown) (unknown) (unknown) (no date) (unknown) (unknown) Pulse Rate 78 (units unknown) (unknown) (unknown) (no date) (unknown) (unknown) Pulse Rate 79 77 78 (units unknown) (unknown) (unknown) (no date) (unknown) (unknown) Pulse Rate 79 (units unknown) (unknown) (unknown) (no date) (unknown) (unknown) Pulse Rate 80 44 L 80 (units unknown) (unknown) (unknown) (no date) (unknown) (unknown) Pulse Rate 80 (units unknown) (unknown) (unknown) (no date) (unknown) (unknown) Pulse Rate 81 78 (units unknown) (unknown) (unknown) (no date) (unknown) (unknown) Pulse Rate 81 80 (units unknown) (unknown) (unknown) (no date) (unknown) (unknown) Pulse Rate 82 73 (units unknown) (unknown) (unknown) (no date) (unknown) (unknown) Pulse Rate 82 82 (units unknown) (unknown) (unknown) (no date) (unknown) (unknown) Pulse Rate 83 75 (units unknown) (unknown) (unknown) (no date) (unknown) (unknown) Pulse Rate 83 80 (units unknown) (unknown) (unknown) (no date) (unknown) (unknown) Pulse Rate 84 (units unknown) (unknown) (unknown) (no date) (unknown) (unknown) Pulse Rate 85 83 (units unknown) (unknown) (unknown) (no date) (unknown) (unknown) Pulse Rate 86 80 83 (units unknown) (unknown) (unknown) (no date) (unknown) (unknown) Pulse Rate 86 (units unknown) (unknown) (unknown) (no date) (unknown) (unknown) Pulse Rate 93 H 82 (units unknown) (unknown) (unknown) (no date) (unknown) (unknown) Pulse Rate 93 H (units unknown) (unknown) (unknown) (no date) (unknown) (unknown) Pulse Rate 94 H 82 (units unknown) (unknown) (unknown) (no date) (unknown) (unknown) Pulse Rate 96 H (units unknown) (unknown) (unknown) (no date) (unknown) (unknown) RBC 4.48 (units unknown) (unknown) (unknown) (no date) (unknown) (unknown) RBC (units unknown) (unknown) (unknown) (no date) (unknown) (unknown) RDW 14.8 (units unknown) (unknown) (unknown) (no date) (unknown) (unknown) RDW (units unknown) (unknown) (unknown) (no date) (unknown) (unknown) Respiratory Rate 24 28 H 36 H (units unknown) (unknown) (unknown) (no date) (unknown) (unknown) Respiratory Rate 24 29 H (units unknown) (unknown) (unknown) (no date) (unknown) (unknown) Respiratory Rate 25 H (units unknown) (unknown) (unknown) (no date) (unknown) (unknown) Respiratory Rate 26 H (units unknown) (unknown) (unknown) (no date) (unknown) (unknown) Respiratory Rate 27 H (units unknown) (unknown) (unknown) (no date) (unknown) (unknown) Respiratory Rate 28 H 28 H (units unknown) (unknown) (unknown) (no date) (unknown) (unknown) Respiratory Rate 28 H 29 H (units unknown) (unknown) (unknown) (no date) (unknown) (unknown) Respiratory Rate 28 H (units unknown) (unknown) (unknown) (no date) (unknown) (unknown) Respiratory Rate 29 H 25 H (units unknown) (unknown) (unknown) (no date) (unknown) (unknown) Respiratory Rate 29 H 33 H (units unknown) (unknown) (unknown) (no date) (unknown) (unknown) Respiratory Rate 29 H 35 H 39 H (units unknown) (unknown) (unknown) (no date) (unknown) (unknown) Respiratory Rate 29 H (units unknown) (unknown) (unknown) (no date) (unknown) (unknown) Respiratory Rate 30 H (units unknown) (unknown) (unknown) (no date) (unknown) (unknown) Respiratory Rate 32 H 31 H (units unknown) (unknown) (unknown) (no date) (unknown) (unknown) Respiratory Rate 33 H 35 H (units unknown) (unknown) (unknown) (no date) (unknown) (unknown) Respiratory Rate 35 H 29 H (units unknown) (unknown) (unknown) (no date) (unknown) (unknown) Respiratory Rate 35 H 33 H (units unknown) (unknown) (unknown) (no date) (unknown) (unknown) Respiratory Rate 36 H (units unknown) (unknown) (unknown) (no date) (unknown) (unknown) Respiratory Rate 40 H 24 (units unknown) (unknown) (unknown) (no date) (unknown) (unknown) Respiratory Rate 41 H (units unknown) (unknown) (unknown) (no date) (unknown) (unknown) Review of Systems (units unknown) (unknown) (unknown) (no date) (unknown) (unknown) Signed By:<Electronically signed by Joaquín Waggoner MD> (units unknown) (unknown) (unknown) (no date) (unknown) (unknown) Smoking Status: Current every day smoker (units unknown) (unknown) (unknown) (no date) (unknown) (unknown) Social History (units unknown) (unknown) (unknown) (no date) (unknown) (unknown) Sodium 140 (units unknown) (unknown) (unknown) (no date) (unknown) (unknown) Sodium (units unknown) (unknown) (unknown) (no date) (unknown) (unknown) Time Patient Seen: 20:00 (units unknown) (unknown) (unknown) (no date) (unknown) (unknown) Total Bilirubin 0.5 (units unknown) (unknown) (unknown) (no date) (unknown) (unknown) Total Bilirubin (units unknown) (unknown) (unknown) (no date) (unknown) (unknown) Total Creatine Kinas e < 20 L (units unknown) (unknown) (unknown) (no date) (unknown) (unknown) Total Creatine Kinase (units unknown) (unknown) (unknown) (no date) (unknown) (unknown) Total Protein 6.7 (units unknown) (unknown) (unknown) (no date) (unknown) (unknown) Total Protein (units unknown) (unknown) (unknown) (no date) (unknown) (unknown) Troponin I 0.013 (units unknown) (unknown) (unknown) (no date) (unknown) (unknown) Troponin I (units unknown) (unknown) (unknown) (no date) (unknown) (unknown) Vital Signs (units unknown) (unknown) (unknown) (no date) (unknown) (unknown) WBC 10.2 (units unknown) (unknown) (unknown) (no date) (unknown) (unknown) WBC (units unknown) (unknown) (unknown) (no date) (unknown) (unknown) [Embedded Image Not Available] (units unknown) (unknown) (unknown) (no date) (unknown) (unknown) acetaminophen [From [facility]] Allergy Verified 07/06/21 13:33 (units unknown) (unknown) (unknown) (no date) (unknown) (unknown) adherence to CHF diet. She has been referred to hospice in the past by her PCP, (units unknown) (unknown) (unknown) (no date) (unknown) (unknown) aerosol inhaler (Ventolin HFA) Shortness Of Breath (units unknown) (unknown) (unknown) (no date) (unknown) (unknown) albuterol sulfate 90 mcg/actuation 2 inh inhalation Q4H PRN Shortness 09/06/22 (units unknown) (unknown) (unknown) (no date) (unknown) (unknown) albuterol sulfate 90 mcg/actuation 2 puff inhalation QID PRN 07/25/22 09/06/22 (units unknown) (unknown) (unknown) (no date) (unknown) (unknown) alcohol intake: former (units unknown) (unknown) (unknown) (no date) (unknown) (unknown) amiodarone 200 mg tablet 100 mg PO DAILY 07/25/22 09/06/22 History (units unknown) (unknown) (unknown) (no date) (unknown) (unknown) and interstitial congestion. She was ordered for lasix and steroids and (units unknown) (unknown) (unknown) (no date) (unknown) (unknown) and lying flat which worsen her shortness of breath. She is using her oxygen (units unknown) (unknown) (unknown) (no date) (unknown) (unknown) apixaban 5 mg tablet (Eliquis) 5 mg PO BID 07/25/22 09/06/22 History (units unknown) (unknown) (unknown) (no date) (unknown) (unknown) bee pollen Allergy Severe Anaphylaxis Verified 07/28/22 10:43 (units unknown) (unknown) (unknown) (no date) (unknown) (unknown) breath activated powder inhaler Of Breath (units unknown) (unknown) (unknown) (no date) (unknown) (unknown) breath. She has note d a chronic cough. It is not worse than her usual. She (units unknown) (unknown) (unknown) (no date) (unknown) (unknown) brings up clear phlegm. She has noted no chest pain. She thinks her weight has (units unknown) (unknown) (unknown) (no date) (unknown) (unknown) but has remained ful l code. (units unknown) (unknown) (unknown) (no date) (unknown) (unknown) codeine Allergy Verified 07/06/21 13:34 (units unknown) (unknown) (unknown) (no date) (unknown) (unknown) dextromethorphan-gua i fenesin 30 1 tab PO BEDTIME 09/06/22 09/06/22 History (units unknown) (unknown) (unknown) (no date) (unknown) (unknown) doxycycline AdvReac Vomiting Verified 07/28/22 10:43 (units unknown) (unknown) (unknown) (no date) (unknown) (unknown) erythromycin base Allergy Verified 07/06/21 13:34 (units unknown) (unknown) (unknown) (no date) (unknown) (unknown) fluid evidence on chest xray (units unknown) (unknown) (unknown) (no date) (unknown) (unknown) furosemide 40 mg tablet 80 mg PO DAILY 07/25/22 09/06/22 History (units unknown) (unknown) (unknown) (no date) (unknown) (unknown) glipizide 5 mg tablet, extended 5 mg PO DAILY #30 tabs 07/28/22 09/06/22 Rx (units unknown) (unknown) (unknown) (no date) (unknown) (unknown) gone up, but she has no scale to measure this. She has difficulty with exertion (units unknown) (unknown) (unknown) (no date) (unknown) (unknown) hospital last month with a similar presentation and ordered for diuresis and for (units unknown) (unknown) (unknown) (no date) (unknown) (unknown) household members: spouse (units unknown) (unknown) (unknown) (no date) (unknown) (unknown) iodine Allergy Rash Verified 07/27/22 13:32 (units unknown) (unknown) (unknown) (no date) (unknown) (unknown) latex Allergy Rash Verified 07/27/22 13:29 (units unknown) (unknown) (unknown) (no date) (unknown) (unknown) lisinopril 5 mg tablet 5 mg PO DAILY 07/25/22 09/06/22 History (units unknown) (unknown) (unknown) (no date) (unknown) (unknown) lives independently: Yes (units unknown) (unknown) (unknown) (no date) (unknown) (unknown) methocarbamol 500 mg tablet 500 mg PO TID PRN Muscle Spasm 09/06/22 09/06/22 (units unknown) (unknown) (unknown) (no date) (unknown) (unknown) metoprolol succinate 25 mg 25 mg PO BID 09/06/22 09/06/22 History (units unknown) (unknown) (unknown) (no date) (unknown) (unknown) mg-600 mg tablet extended (units unknown) (unknown) (unknown) (no date) (unknown) (unknown) more frequently. She is not urinating very much. She was admitted to the (units unknown) (unknown) (unknown) (no date) (unknown) (unknown) multivitamin 1 tab P O DAILY 09/06/22 09/06/22 History (units unknown) (unknown) (unknown) (no date) (unknown) (unknown) nebulizers and admitte for further treatment. (units unknown) (unknown) (unknown) (no date) (unknown) (unknown) no indication to repeat echo for now (units unknown) (unknown) (unknown) (no date) (unknown) (unknown) oxycodone 5 mg table t 5 mg PO Q4HR PRN pain #20 tabs 07/28/22 09/06/22 Rx (units unknown) (unknown) (unknown) (no date) (unknown) (unknown) pamabrom [From [facility] ] Allergy Verified 07/06/21 13:33 (units unknown) (unknown) (unknown) (no date) (unknown) (unknown) plan of care with ED physician and bedside nurse. I have reviewed labs, chest (units unknown) (unknown) (unknown) (no date) (unknown) (unknown) promethazine 25 mg tablet 25 mg PO Q6H PRN Nausea 09/06/22 09/06/22 History (units unknown) (unknown) (unknown) (no date) (unknown) (unknown) release 24 hr (Glucotrol XL) (units unknown) (unknown) (unknown) (no date) (unknown) (unknown) [id number] hr (Mucine x DM) (units unknown) (unknown) (unknown) (no date) (unknown) (unknown) s/p ppm/aicd, Type 2 DM, afib who presents to the hospital with shortness of (units unknown) (unknown) (unknown) (no date) (unknown) (unknown) shellfish derived Allergy Severe Anaphylaxis Verified 07/28/22 10:43 (units unknown) (unknown) (unknown) (no date) (unknown) (unknown) spironolactone 25 mg tablet 25 mg PO DAILY 07/25/22 09/06/22 History (units unknown) (unknown) (unknown) (no date) (unknown) (unknown) tablet,extended release 24 hr (units unknown) (unknown) (unknown) (no date) (unknown) (unknown) treatment of COPD, and she had ECHO with EF 25-30%. She has a history of poor (units unknown) (unknown) (unknown) (no date) (unknown) (unknown) xray. (units unknown) (unknown) Result panel 692 (unknown) (no date) (unknown) (unknown) 0 /ul (unknown) (unknown) (no date) (unknown) (unknown) 0 /ul (unknown) (unknown) (no date) (unknown) (unknown) 0.0 % (unknown) (unknown) (no date) (unknown) (unknown) 0.3 % (unknown) (unknown) (no date) (unknown) (unknown) 1.4 % (unknown) (unknown) (no date) (unknown) (unknown) 100 /ul (unknown) (unknown) (no date) (unknown) (unknown) 14.5 % (unknown) (unknown) (no date) (unknown) (unknown) 14.5 g/dl (unknown) (unknown) (no date) (unknown) (unknown) 219 x10 3/ul (unknown) (unknown) (no date) (unknown) (unknown) 31.9 pg (unknown) (unknown) (no date) (unknown) (unknown) 33.8 % (unknown) (unknown) (no date) (unknown) (unknown) 4.54 x10 6/ul (unknown) (unknown) (no date) (unknown) (unknown) 42.8 % (unknown) (unknown) (no date) (unknown) (unknown) 500 /ul (unknown) (unknown) (no date) (unknown) (unknown) 6.3 % (unknown) (unknown) (no date) (unknown) (unknown) 6.3 % (unknown) (unknown) (no date) (unknown) (unknown) 7900 /ul (unknown) (unknown) (no date) (unknown) (unknown) 8.6 x10 3/ul (unknown) (unknown) (no date) (unknown) (unknown) 92.0 % (unknown) (unknown) (no date) (unknown) (unknown) 92.0 % (unknown) (unknown) (no date) (unknown) (unknown) 94.3 fl (unknown) Result panel 693 (unknown) (no date) (unknown) (unknown) 1.24 mg/dl (unknown) (unknown) (no date) (unknown) (unknown) 1.8 mg/dl (unknown) (unknown) (no date) (unknown) (unknown) 136 mmol/l (unknown) (unknown) (no date) (unknown) (unknown) 22.6 (units unknown) (unknown) (unknown) (no date) (unknown) (unknown) 28 mg/dl (unknown) (unknown) (no date) (unknown) (unknown) 28 mmol/l (unknown) (unknown) (no date) (unknown) (unknown) 284 mg/dl (unknown) (unknown) (no date) (unknown) (unknown) 284 mg/dl (unknown) (unknown) (no date) (unknown) (unknown) 3.6 mmol/l (unknown) (unknown) (no date) (unknown) (unknown) 50 ml/min (unknown) (unknown) (no date) (unknown) (unknown) 50 ml/min (unknown) (unknown) (no date) (unknown) (unknown) 8.7 mg/dl (unknown) (unknown) (no date) (unknown) (unknown) 98 mmol/l (unknown) Result panel 694 (unknown) (no date) (unknown) (unknown) (no value) (units unknown) (unknown) (unknown) (no date) (unknown) (unknown) <Electronically signed by Aristeo Xiong D.O.> (units unknown) (unknown) (unknown) (no date) (unknown) (unknown) ([employer]) (units unknown) (unknown) (unknown) (no date) (unknown) (unknown) 09/06/22 09/06/22 09/06/22 Range/Units (units unknown) (unknown) (unknown) (no date) (unknown) (unknown) 09/06/22 (units unknown) (unknown) (unknown) (no date) (unknown) (unknown) 09/07/22 04:51 (units unknown) (unknown) (unknown) (no date) (unknown) (unknown) 09/07/22 0645 (units unknown) (unknown) (unknown) (no date) (unknown) (unknown) 1. Findings suggest central vascular and mild interstitial congestion.? (units unknown) (unknown) (unknown) (no date) (unknown) (unknown) 12 point review of systems is negative except for those stated above (units unknown) (unknown) (unknown) (no date) (unknown) (unknown) 16:39 09/06/22 (units unknown) (unknown) (unknown) (no date) (unknown) (unknown) 16:42 09/06/22 (units unknown) (unknown) (unknown) (no date) (unknown) (unknown) 16:42 (units unknown) (unknown) (unknown) (no date) (unknown) (unknown) 16:45 09/06/22 (units unknown) (unknown) (unknown) (no date) (unknown) (unknown) 16:45 (units unknown) (unknown) (unknown) (no date) (unknown) (unknown) 16:50 09/06/22 (units unknown) (unknown) (unknown) (no date) (unknown) (unknown) 17:00 09/06/22 (units unknown) (unknown) (unknown) (no date) (unknown) (unknown) 17:01 09/06/22 (units unknown) (unknown) (unknown) (no date) (unknown) (unknown) 17:01 (units unknown) (unknown) (unknown) (no date) (unknown) (unknown) 17:06 09/06/22 (units unknown) (unknown) (unknown) (no date) (unknown) (unknown) 17:10 09/06/22 (units unknown) (unknown) (unknown) (no date) (unknown) (unknown) 17:10 17:16 17:16 (units unknown) (unknown) (unknown) (no date) (unknown) (unknown) 17:10 (units unknown) (unknown) (unknown) (no date) (unknown) (unknown) 17:15 09/06/22 (units unknown) (unknown) (unknown) (no date) (unknown) (unknown) 17:15 (units unknown) (unknown) (unknown) (no date) (unknown) (unknown) 17:16 17:16 18:35 (units unknown) (unknown) (unknown) (no date) (unknown) (unknown) 17:21 09/06/22 (units unknown) (unknown) (unknown) (no date) (unknown) (unknown) 17:26 09/06/22 (units unknown) (unknown) (unknown) (no date) (unknown) (unknown) 17:26 (units unknown) (unknown) (unknown) (no date) (unknown) (unknown) 17:30 09/06/22 (units unknown) (unknown) (unknown) (no date) (unknown) (unknown) 17:30 (units unknown) (unknown) (unknown) (no date) (unknown) (unknown) 17:36 09/06/22 (units unknown) (unknown) (unknown) (no date) (unknown) (unknown) 17:38 09/06/22 (units unknown) (unknown) (unknown) (no date) (unknown) (unknown) 17:38 (units unknown) (unknown) (unknown) (no date) (unknown) (unknown) 17:40 09/06/22 (units unknown) (unknown) (unknown) (no date) (unknown) (unknown) 17:40 (units unknown) (unknown) (unknown) (no date) (unknown) (unknown) 17:42 09/06/22 (units unknown) (unknown) (unknown) (no date) (unknown) (unknown) 17:45 (units unknown) (unknown) (unknown) (no date) (unknown) (unknown) 17:46 09/06/22 (units unknown) (unknown) (unknown) (no date) (unknown) (unknown) 17:48 09/06/22 (units unknown) (unknown) (unknown) (no date) (unknown) (unknown) 17:48 (units unknown) (unknown) (unknown) (no date) (unknown) (unknown) 17:50 09/06/22 (units unknown) (unknown) (unknown) (no date) (unknown) (unknown) 17:50 (units unknown) (unknown) (unknown) (no date) (unknown) (unknown) 17:55 09/06/22 (units unknown) (unknown) (unknown) (no date) (unknown) (unknown) 18:00 09/06/22 (units unknown) (unknown) (unknown) (no date) (unknown) (unknown) 18:00 (units unknown) (unknown) (unknown) (no date) (unknown) (unknown) 18:05 09/06/22 (units unknown) (unknown) (unknown) (no date) (unknown) (unknown) 18:06 09/06/22 (units unknown) (unknown) (unknown) (no date) (unknown) (unknown) 18:06 (units unknown) (unknown) (unknown) (no date) (unknown) (unknown) 18:10 09/06/22 (units unknown) (unknown) (unknown) (no date) (unknown) (unknown) 18:10 (units unknown) (unknown) (unknown) (no date) (unknown) (unknown) 18:15 09/06/22 (units unknown) (unknown) (unknown) (no date) (unknown) (unknown) 18:20 09/06/22 (units unknown) (unknown) (unknown) (no date) (unknown) (unknown) 18:20 (units unknown) (unknown) (unknown) (no date) (unknown) (unknown) 18:25 09/06/22 (units unknown) (unknown) (unknown) (no date) (unknown) (unknown) 18:26 09/06/22 (units unknown) (unknown) (unknown) (no date) (unknown) (unknown) 18:26 (units unknown) (unknown) (unknown) (no date) (unknown) (unknown) 18:30 09/06/22 (units unknown) (unknown) (unknown) (no date) (unknown) (unknown) 18:30 (units unknown) (unknown) (unknown) (no date) (unknown) (unknown) 18:35 09/06/22 (units unknown) (unknown) (unknown) (no date) (unknown) (unknown) 18:40 09/06/22 (units unknown) (unknown) (unknown) (no date) (unknown) (unknown) 18:40 (units unknown) (unknown) (unknown) (no date) (unknown) (unknown) 18:45 09/06/22 (units unknown) (unknown) (unknown) (no date) (unknown) (unknown) 18:46 09/06/22 (units unknown) (unknown) (unknown) (no date) (unknown) (unknown) 18:46 (units unknown) (unknown) (unknown) (no date) (unknown) (unknown) 18:50 09/06/22 (units unknown) (unknown) (unknown) (no date) (unknown) (unknown) 18:50 (units unknown) (unknown) (unknown) (no date) (unknown) (unknown) 18:55 09/06/22 (units unknown) (unknown) (unknown) (no date) (unknown) (unknown) [id number] (units unknown) (unknown) (unknown) (no date) (unknown) (unknown) 19:00 (units unknown) (unknown) (unknown) (no date) (unknown) (unknown) 19:01 09/06/22 (units unknown) (unknown) (unknown) (no date) (unknown) (unknown) 19:05 (units unknown) (unknown) (unknown) (no date) (unknown) (unknown) 2. Interstitial thickening can also be seen in viral pneumonitis. (units unknown) (unknown) (unknown) (no date) (unknown) (unknown) 3. Stable cardiomegaly.? (units unknown) (unknown) (unknown) (no date) (unknown) (unknown) 57-year-old female daily smoker with history of COPD on home oxygen at 3 L (units unknown) (unknown) (unknown) (no date) (unknown) (unknown) ? (units unknown) (unknown) (unknown) (no date) (unknown) (unknown) ABG Base Excess (-2-3) mmol/L (units unknown) (unknown) (unknown) (no date) (unknown) (unknown) ABG Base Excess 6.0 H (-2-3) mmol/L (units unknown) (unknown) (unknown) (no date) (unknown) (unknown) ABG HCO3 (23-27) mmol/L (units unknown) (unknown) (unknown) (no date) (unknown) (unknown) ABG HCO3 31 H (23-27 ) mmol/L (units unknown) (unknown) (unknown) (no date) (unknown) (unknown) ABG O2 Saturation (95-100) % (units unknown) (unknown) (unknown) (no date) (unknown) (unknown) ABG O2 Saturation 94 L (95-100) % (units unknown) (unknown) (unknown) (no date) (unknown) (unknown) ABG Total CO2 (23-27 ) mmol/L (units unknown) (unknown) (unknown) (no date) (unknown) (unknown) ABG Total CO2 32 H (23-27) mmol/L (units unknown) (unknown) (unknown) (no date) (unknown) (unknown) ABG pCO2 (35-45) mmHg (units unknown) (unknown) (unknown) (no date) (unknown) (unknown) ABG pCO2 46.9 H (35-45) mmHg (units unknown) (unknown) (unknown) (no date) (unknown) (unknown) ABG pH (7.35-7.45) (units unknown) (unknown) (unknown) (no date) (unknown) (unknown) ABG pH 7.42 (7.35-7.45) (units unknown) (unknown) (unknown) (no date) (unknown) (unknown) ABG pO2 (80-100) mmHg (units unknown) (unknown) (unknown) (no date) (unknown) (unknown) ABG pO2 70 L (80-100 ) mmHg (units unknown) (unknown) (unknown) (no date) (unknown) (unknown) ALT (<35) IU/L (units unknown) (unknown) (unknown) (no date) (unknown) (unknown) ALT 19 (<35) IU/L (units unknown) (unknown) (unknown) (no date) (unknown) (unknown) APTT (26-36) SECONDS (units unknown) (unknown) (unknown) (no date) (unknown) (unknown) APTT 35 (26-36) SECONDS (units unknown) (unknown) (unknown) (no date) (unknown) (unknown) AST (14-36) IU/L (units unknown) (unknown) (unknown) (no date) (unknown) (unknown) AST 20 (14-36) IU/L (units unknown) (unknown) (unknown) (no date) (unknown) (unknown) Acetaminophen (Acetaminophen 325 Mg Tablet) 650 mg PO Q6H PRN (units unknown) (unknown) (unknown) (no date) (unknown) (unknown) Acute CHF (units unknown) (unknown) (unknown) (no date) (unknown) (unknown) Adenovirus (PCR) (No t Detect) (units unknown) (unknown) (unknown) (no date) (unknown) (unknown) Adenovirus (PCR) Not detected (Not Detect) (units unknown) (unknown) (unknown) (no date) (unknown) (unknown) Admit Date/Time: 09/06/22 19:22 (units unknown) (unknown) (unknown) (no date) (unknown) (unknown) Admit Provider: Joaquín Waggoner (units unknown) (unknown) (unknown) (no date) (unknown) (unknown) Age/Sex: 57 / F (units unknown) (unknown) (unknown) (no date) (unknown) (unknown) Albumin (3.5-5.0) g/dL (units unknown) (unknown) (unknown) (no date) (unknown) (unknown) Albumin 3.8 (3.5-5.0 ) g/dL (units unknown) (unknown) (unknown) (no date) (unknown) (unknown) Albumin/Globulin Ratio (1.0-2.8) (units unknown) (unknown) (unknown) (no date) (unknown) (unknown) Albumin/Globulin Ratio 1.3 (1.0-2.8) (units unknown) (unknown) (unknown) (no date) (unknown) (unknown) Albuterol (Albuterol 2.5 Mg/3 Ml Neb (Adult)) 2.5 mg INH [id number] PRN (units unknown) (unknown) (unknown) (no date) (unknown) (unknown) Albuterol/Ipratropiu m (Albuterol/Ipratropiu m 3 Ml Ampul) 3 ml INH [id number] ROMAN (units unknown) (unknown) (unknown) (no date) (unknown) (unknown) Alkaline Phosphatase (38-126) U/L (units unknown) (unknown) (unknown) (no date) (unknown) (unknown) Alkaline Phosphatase 81 (38-126) U/L (units unknown) (unknown) (unknown) (no date) (unknown) (unknown) Allergies (units unknown) (unknown) (unknown) (no date) (unknown) (unknown) Allergy/AdvReac Type Severity Reaction Status Date / Time (units unknown) (unknown) (unknown) (no date) (unknown) (unknown) Amiodarone HCl (Amiodarone 200 Mg Tablet) 100 mg PO DAILY ROMAN (units unknown) (unknown) (unknown) (no date) (unknown) (unknown) Apixaban (Apixaban 5 Mg Tablet) 5 mg PO BID ROMAN (units unknown) (unknown) (unknown) (no date) (unknown) (unknown) Approved by: Mattie Way M.D. on 09/06/2022 at 17:03 ? (units unknown) (unknown) (unknown) (no date) (unknown) (unknown) Azithromycin 500 mg/ Dextrose 250 mls @ 250 mls/hr IV Q24H ROMAN (units unknown) (unknown) (unknown) (no date) (unknown) (unknown) B. pertussis DNA (PCR) (Not Detecte) (units unknown) (unknown) (unknown) (no date) (unknown) (unknown) B. pertussis DNA (PCR) Not detected (Not Detecte) (units unknown) (unknown) (unknown) (no date) (unknown) (unknown) B.parapertussis DNA PCR (Not Detecte) (units unknown) (unknown) (unknown) (no date) (unknown) (unknown) B.parapertussis DNA PCR Not detected (Not Detecte) (units unknown) (unknown) (unknown) (no date) (unknown) (unknown) BACK: Nontender without deformity or crepitance. No flank tenderness. (units unknown) (unknown) (unknown) (no date) (unknown) (unknown) BNP. (units unknown) (unknown) (unknown) (no date) (unknown) (unknown) BUN (7-17) mg/dL (units unknown) (unknown) (unknown) (no date) (unknown) (unknown) BUN 26 H (7-17) mg/dL (units unknown) (unknown) (unknown) (no date) (unknown) (unknown) BUN/Creatinine Ratio (6-22) (units unknown) (unknown) (unknown) (no date) (unknown) (unknown) BUN/Creatinine Ratio 20.2 (6-22) (units unknown) (unknown) (unknown) (no date) (unknown) (unknown) Baso # (Auto) (0-100 ) /uL (units unknown) (unknown) (unknown) (no date) (unknown) (unknown) Baso # (Auto) 100 (0-100) /uL (units unknown) (unknown) (unknown) (no date) (unknown) (unknown) Baso % (Auto) (0-2) % (units unknown) (unknown) (unknown) (no date) (unknown) (unknown) Baso % (Auto) 1.0 (0-2) % (units unknown) (unknown) (unknown) (no date) (unknown) (unknown) Blood Pressure 100/4 9 L 104/52 L (units unknown) (unknown) (unknown) (no date) (unknown) (unknown) Blood Pressure 102/7 1 150/71 H (units unknown) (unknown) (unknown) (no date) (unknown) (unknown) Blood Pressure 104/4 8 L (units unknown) (unknown) (unknown) (no date) (unknown) (unknown) Blood Pressure 109/5 3 L 116/66 (units unknown) (unknown) (unknown) (no date) (unknown) (unknown) Blood Pressure 110/5 3 L 96/54 L (units unknown) (unknown) (unknown) (no date) (unknown) (unknown) Blood Pressure 112/5 4 L (units unknown) (unknown) (unknown) (no date) (unknown) (unknown) Blood Pressure 115/5 8 L (units unknown) (unknown) (unknown) (no date) (unknown) (unknown) Blood Pressure 125/5 9 L 132/54 L (units unknown) (unknown) (unknown) (no date) (unknown) (unknown) Blood Pressure 126/6 0 132/74 (units unknown) (unknown) (unknown) (no date) (unknown) (unknown) Blood Pressure 130/60 (units unknown) (unknown) (unknown) (no date) (unknown) (unknown) Blood Pressure 132/6 2 141/61 H (units unknown) (unknown) (unknown) (no date) (unknown) (unknown) Blood Pressure 137/68 (units unknown) (unknown) (unknown) (no date) (unknown) (unknown) Blood Pressure 137/7 8 143/76 H (units unknown) (unknown) (unknown) (no date) (unknown) (unknown) Blood Pressure 140/6 7 137/70 (units unknown) (unknown) (unknown) (no date) (unknown) (unknown) Blood Pressure 158/8 5 H (units unknown) (unknown) (unknown) (no date) (unknown) (unknown) Blood Pressure 165/108 H (units unknown) (unknown) (unknown) (no date) (unknown) (unknown) Blood Pressure 72/43 L (units unknown) (unknown) (unknown) (no date) (unknown) (unknown) Blood Pressure 76/42 L 93/54 L (units unknown) (unknown) (unknown) (no date) (unknown) (unknown) Blood Pressure 83/51 L 71/46 L (units unknown) (unknown) (unknown) (no date) (unknown) (unknown) Blood Pressure 93/54 L (units unknown) (unknown) (unknown) (no date) (unknown) (unknown) Blood Pressure (units unknown) (unknown) (unknown) (no date) (unknown) (unknown) Budesonide (Budesonide 0.5 Mg/2 Ml Neb) 0.5 mg INH RTBID ROMAN (units unknown) (unknown) (unknown) (no date) (unknown) (unknown) CARDIOVASCULAR: Irregular rhythm (units unknown) (unknown) (unknown) (no date) (unknown) (unknown) CARDIOVASCULAR: see HPI (units unknown) (unknown) (unknown) (no date) (unknown) (unknown) CK-MB (CK-2) Rel Index TNP (units unknown) (unknown) (unknown) (no date) (unknown) (unknown) CK-MB (CK-2) Rel Index (units unknown) (unknown) (unknown) (no date) (unknown) (unknown) CK-MB (CK-2) TNP (units unknown) (unknown) (unknown) (no date) (unknown) (unknown) CK-MB (CK-2) (units unknown) (unknown) (unknown) (no date) (unknown) (unknown) COPD (chronic obstructive pulmonary disease) (units unknown) (unknown) (unknown) (no date) (unknown) (unknown) Calcium (8.4-10.2) mg/dL (units unknown) (unknown) (unknown) (no date) (unknown) (unknown) Calcium 9.0 (8.4-10.2) mg/dL (units unknown) (unknown) (unknown) (no date) (unknown) (unknown) Carbon Dioxide (22-32) mmol/L (units unknown) (unknown) (unknown) (no date) (unknown) (unknown) Carbon Dioxide 35 H (22-32) mmol/L (units unknown) (unknown) (unknown) (no date) (unknown) (unknown) Chest x-ray: (units unknown) (unknown) (unknown) (no date) (unknown) (unknown) Chief complaint: Shortness of Breath/Dyspnea (units unknown) (unknown) (unknown) (no date) (unknown) (unknown) Chlamy pneumoniae PC R (Not Detect) (units unknown) (unknown) (unknown) (no date) (unknown) (unknown) Chlamy pneumoniae PC R Not detected (Not Detect) (units unknown) (unknown) (unknown) (no date) (unknown) (unknown) Chloride (98-107) mmol/L (units unknown) (unknown) (unknown) (no date) (unknown) (unknown) Chloride 100 (98-107 ) mmol/L (units unknown) (unknown) (unknown) (no date) (unknown) (unknown) Clinical Impression: (units unknown) (unknown) (unknown) (no date) (unknown) (unknown) Consultation #1: (units unknown) (unknown) (unknown) (no date) (unknown) (unknown) Consultations (units unknown) (unknown) (unknown) (no date) (unknown) (unknown) Coronavirus 229E (PCR) (Not Detect) (units unknown) (unknown) (unknown) (no date) (unknown) (unknown) Coronavirus 229E (PCR) Not detected (Not Detect) (units unknown) (unknown) (unknown) (no date) (unknown) (unknown) Coronavirus HKU1 (PCR) (Not Detect) (units unknown) (unknown) (unknown) (no date) (unknown) (unknown) Coronavirus HKU1 (PCR) Not detected (Not Detect) (units unknown) (unknown) (unknown) (no date) (unknown) (unknown) Coronavirus NL63 (PCR) (Not Detect) (units unknown) (unknown) (unknown) (no date) (unknown) (unknown) Coronavirus NL63 (PCR) Not detected (Not Detect) (units unknown) (unknown) (unknown) (no date) (unknown) (unknown) Coronavirus OC43 (PCR) (Not Detect) (units unknown) (unknown) (unknown) (no date) (unknown) (unknown) Coronavirus OC43 (PCR) Not detected (Not Detect) (units unknown) (unknown) (unknown) (no date) (unknown) (unknown) Correlate with (units unknown) (unknown) (unknown) (no date) (unknown) (unknown) Course (units unknown) (unknown) (unknown) (no date) (unknown) (unknown) Creatinine (0.52-1.04) mg/dL (units unknown) (unknown) (unknown) (no date) (unknown) (unknown) Creatinine 1.29 H (0.52-1.04) mg/dL (units unknown) (unknown) (unknown) (no date) (unknown) (unknown) : 1965 Acct:[id number] (units unknown) (unknown) (unknown) (no date) (unknown) (unknown) Date of Service: 09/06/22 (units unknown) (unknown) (unknown) (no date) (unknown) (unknown) Departure (units unknown) (unknown) (unknown) (no date) (unknown) (unknown) Dextrose (Dextrose 5 0 % In Water 25 Gm/50 Ml Syringe) 25 gm IV PRN PRN (units unknown) (unknown) (unknown) (no date) (unknown) (unknown) Dictated by: Mattie Way M.D. on 09/06/2022 at 17:01 ? ? (units unknown) (unknown) (unknown) (no date) (unknown) (unknown) Discharge Plan (units unknown) (unknown) (unknown) (no date) (unknown) (unknown) Discontinued Medications (units unknown) (unknown) (unknown) (no date) (unknown) (unknown) Discussed with both hospitalists (Dr. Sanches and Jovani) who are happy to (units unknown) (unknown) (unknown) (no date) (unknown) (unknown) Documented By: AM Co-signed By: MW (units unknown) (unknown) (unknown) (no date) (unknown) (unknown) Documented By: AM (units unknown) (unknown) (unknown) (no date) (unknown) (unknown) Documented By: KLS (units unknown) (unknown) (unknown) (no date) (unknown) (unknown) Documented By: NR (units unknown) (unknown) (unknown) (no date) (unknown) (unknown) Documented By: WJ (units unknown) (unknown) (unknown) (no date) (unknown) (unknown) ENT: Nose without bleeding, purulent drainage. Throat without erythema, (units unknown) (unknown) (unknown) (no date) (unknown) (unknown) ER Physician: Aristeo Xiong D.O. (units unknown) (unknown) (unknown) (no date) (unknown) (unknown) EXTREMITIES: No valdo a or joint tenderness. (units unknown) (unknown) (unknown) (no date) (unknown) (unknown) EYES: Pupils equal round and reactive. Extraocular motions intact. No scleral (units unknown) (unknown) (unknown) (no date) (unknown) (unknown) Emergency Report (units unknown) (unknown) (unknown) (no date) (unknown) (unknown) Entero/Rhino (PCR) (Not Detect) (units unknown) (unknown) (unknown) (no date) (unknown) (unknown) Entero/Rhino (PCR) Not detected (Not Detect) (units unknown) (unknown) (unknown) (no date) (unknown) (unknown) Eos # (Auto) (0-450) /uL (units unknown) (unknown) (unknown) (no date) (unknown) (unknown) Eos # (Auto) 100 (0-450) /uL (units unknown) (unknown) (unknown) (no date) (unknown) (unknown) Eos % (Auto) (2-4) % (units unknown) (unknown) (unknown) (no date) (unknown) (unknown) Eos % (Auto) 1.1 L (2-4) % (units unknown) (unknown) (unknown) (no date) (unknown) (unknown) Estimated GFR (>60) mL/min (units unknown) (unknown) (unknown) (no date) (unknown) (unknown) Estimated GFR 48 L (>60) mL/min (units unknown) (unknown) (unknown) (no date) (unknown) (unknown) Exam Narrative: (units unknown) (unknown) (unknown) (no date) (unknown) (unknown) Exam (units unknown) (unknown) (unknown) (no date) (unknown) (unknown) FiO2 32 (units unknown) (unknown) (unknown) (no date) (unknown) (unknown) FiO2 (units unknown) (unknown) (unknown) (no date) (unknown) (unknown) Fish Containing Products Allergy Severe Anaphylaxis Verified 07/27/22 13:29 (units unknown) (unknown) (unknown) (no date) (unknown) (unknown) Furosemide (Furosemide 40 Mg/4 Ml Vial) 40 mg IV NOW ONE (units unknown) (unknown) (unknown) (no date) (unknown) (unknown) Furosemide (Furosemide 40 Mg/4 Ml Vial) 40 mg IV Q12HR ROMAN (units unknown) (unknown) (unknown) (no date) (unknown) (unknown) GASTROINTESTINAL: Abdomen soft, non-tender, nondistended. (units unknown) (unknown) (unknown) (no date) (unknown) (unknown) GASTROINTESTINAL: Denies nausea, vomiting, abdominal pain, diarrhea, (units unknown) (unknown) (unknown) (no date) (unknown) (unknown) GENERAL: [57] year old patient appears stated age. Well-developed patient, in (units unknown) (unknown) (unknown) (no date) (unknown) (unknown) GENERAL: see HPI. (units unknown) (unknown) (unknown) (no date) (unknown) (unknown) : Denies dysuria, frequency, incontinence, hematuria, urinary retention. (units unknown) (unknown) (unknown) (no date) (unknown) (unknown) General (units unknown) (unknown) (unknown) (no date) (unknown) (unknown) Globulin (1.7-4.1) g/dL (units unknown) (unknown) (unknown) (no date) (unknown) (unknown) Globulin 2.9 (1.7-4.1) g/dL (units unknown) (unknown) (unknown) (no date) (unknown) (unknown) Glucose (70-100) mg/dL (units unknown) (unknown) (unknown) (no date) (unknown) (unknown) Glucose 89 (70-100) mg/dL (units unknown) (unknown) (unknown) (no date) (unknown) (unknown) HEAD: Atraumatic. Normocephalic. (units unknown) (unknown) (unknown) (no date) (unknown) (unknown) HEENT: Denies sinus pain, ear pain, sore throat, difficulty swallowing, (units unknown) (unknown) (unknown) (no date) (unknown) (unknown) HPI - General Adult (units unknown) (unknown) (unknown) (no date) (unknown) (unknown) HPI narrative: (units unknown) (unknown) (unknown) (no date) (unknown) (unknown) Hct (36-46) % (units unknown) (unknown) (unknown) (no date) (unknown) (unknown) Hct 42.1 (36-46) % (units unknown) (unknown) (unknown) (no date) (unknown) (unknown) Hgb (12.0-16.0) g/dL (units unknown) (unknown) (unknown) (no date) (unknown) (unknown) Hgb 14.5 (12.0-16.0) g/dL (units unknown) (unknown) (unknown) (no date) (unknown) (unknown) History of Present Illness (units unknown) (unknown) (unknown) (no date) (unknown) (unknown) Home Medications (units unknown) (unknown) (unknown) (no date) (unknown) (unknown) Human Metapneumovir PCR (Not Detect) (units unknown) (unknown) (unknown) (no date) (unknown) (unknown) Human Metapneumovir PCR Not detected (Not Detect) (units unknown) (unknown) (unknown) (no date) (unknown) (unknown) IMPRESSION:? (units unknown) (unknown) (unknown) (no date) (unknown) (unknown) INR (0.9-1.3) (units unknown) (unknown) (unknown) (no date) (unknown) (unknown) INR 1.3 (0.9-1.3) (units unknown) (unknown) (unknown) (no date) (unknown) (unknown) Imaging Data (units unknown) (unknown) (unknown) (no date) (unknown) (unknown) Influenza Type A (PCR) (Not Detect) (units unknown) (unknown) (unknown) (no date) (unknown) (unknown) Influenza Type A (PCR) Not detected (Not Detect) (units unknown) (unknown) (unknown) (no date) (unknown) (unknown) Influenza Type B (PCR) (Not Detect) (units unknown) (unknown) (unknown) (no date) (unknown) (unknown) Influenza Type B (PCR) Not detected (Not Detect) (units unknown) (unknown) (unknown) (no date) (unknown) (unknown) Influenza Virus Vaccine (Influenza Vaccine Qiv 0.5 Ml Syringe) 0.5 ml IM .ONCE (units unknown) (unknown) (unknown) (no date) (unknown) (unknown) Initial Vital Signs (units unknown) (unknown) (unknown) (no date) (unknown) (unknown) Initial Vital Signs: (units unknown) (unknown) (unknown) (no date) (unknown) (unknown) Insulin Glargine (Insulin Glargine 100 Unit/Ml 3ml Pen) 10 unit SUBCUT BEDTIME (units unknown) (unknown) (unknown) (no date) (unknown) (unknown) Insulin Human Lispro (Insulin Lispro 100 Unit/Ml 3ml Vial) 0 unit SUBCUT ACHS (units unknown) (unknown) (unknown) (no date) (unknown) (unknown) [address] [address] (units unknown) (unknown) (unknown) (no date) (unknown) (unknown) Lab Data (units unknown) (unknown) (unknown) (no date) (unknown) (unknown) Lab Results (units unknown) (unknown) (unknown) (no date) (unknown) (unknown) Labs: (units unknown) (unknown) (unknown) (no date) (unknown) (unknown) Lactate (0.7-2.1) mmol/L (units unknown) (unknown) (unknown) (no date) (unknown) (unknown) Lactate 1.0 (0.7-2.1 ) mmol/L (units unknown) (unknown) (unknown) (no date) (unknown) (unknown) Last Admin: 09/06/22 18:22 Dose: 125 mg (units unknown) (unknown) (unknown) (no date) (unknown) (unknown) Last Admin: 09/06/22 18:55 Dose: 40 mg (units unknown) (unknown) (unknown) (no date) (unknown) (unknown) Last Admin: 09/06/22 22:36 Dose: 250 mls/hr (units unknown) (unknown) (unknown) (no date) (unknown) (unknown) Last Admin: 09/06/22 22:36 Dose: 5 mg (units unknown) (unknown) (unknown) (no date) (unknown) (unknown) Last Admin: 09/06/22 22:37 Dose: 25 mg (units unknown) (unknown) (unknown) (no date) (unknown) (unknown) Last Admin: 09/06/22 22:39 Dose: 7 unit (units unknown) (unknown) (unknown) (no date) (unknown) (unknown) Last Admin: 09/06/22 22:44 Dose: 10 unit (units unknown) (unknown) (unknown) (no date) (unknown) (unknown) Last Admin: 09/06/22 23:00 Dose: Not Given (units unknown) (unknown) (unknown) (no date) (unknown) (unknown) Last Admin: 09/06/22 23:03 Dose: Not Given (units unknown) (unknown) (unknown) (no date) (unknown) (unknown) Last Admin: 09/07/22 00:54 Dose: 40 mg (units unknown) (unknown) (unknown) (no date) (unknown) (unknown) Last Admin: 09/07/22 01:55 Dose: 2.5 mg (units unknown) (unknown) (unknown) (no date) (unknown) (unknown) Lipase (23-300) U/L (units unknown) (unknown) (unknown) (no date) (unknown) (unknown) Lipase 80 (23-300) U/L (units unknown) (unknown) (unknown) (no date) (unknown) (unknown) Lisinopril (Lisinopril 5 Mg Tablet) 5 mg PO DAILY ROMAN (units unknown) (unknown) (unknown) (no date) (unknown) (unknown) Lymph # (Auto) (6384-7651) /uL (units unknown) (unknown) (unknown) (no date) (unknown) (unknown) Lymph # (Auto) 2700 (7723-4317) /uL (units unknown) (unknown) (unknown) (no date) (unknown) (unknown) Lymph % (Auto) (25-40) % (units unknown) (unknown) (unknown) (no date) (unknown) (unknown) Lymph % (Auto) 26.3 (25-40) % (units unknown) (unknown) (unknown) (no date) (unknown) (unknown) M. pneumoniae (PCR) (Not Detect) (units unknown) (unknown) (unknown) (no date) (unknown) (unknown) M. pneumoniae (PCR) Not detected (Not Detect) (units unknown) (unknown) (unknown) (no date) (unknown) (unknown) MCH (26-34) PG (units unknown) (unknown) (unknown) (no date) (unknown) (unknown) MCH 32.5 (26-34) PG (units unknown) (unknown) (unknown) (no date) (unknown) (unknown) MCHC (30-36) % (units unknown) (unknown) (unknown) (no date) (unknown) (unknown) MCHC 34.6 (30-36) % (units unknown) (unknown) (unknown) (no date) (unknown) (unknown) MCV (80-100) fL (units unknown) (unknown) (unknown) (no date) (unknown) (unknown) MCV 93.9 (80-100) fL (units unknown) (unknown) (unknown) (no date) (unknown) (unknown) MDM Narrative (units unknown) (unknown) (unknown) (no date) (unknown) (unknown) MUSCULOSKELETAL: denies weakness, joint pain, or bony pain (units unknown) (unknown) (unknown) (no date) (unknown) (unknown) Magnesium (1.6-2.3) mg/dL (units unknown) (unknown) (unknown) (no date) (unknown) (unknown) Magnesium 1.9 (1.6-2.3) mg/dL (units unknown) (unknown) (unknown) (no date) (unknown) (unknown) Medical Decision Making (units unknown) (unknown) (unknown) (no date) (unknown) (unknown) Medical History (units unknown) (unknown) (unknown) (no date) (unknown) (unknown) Medical decision making narrative: (units unknown) (unknown) (unknown) (no date) (unknown) (unknown) Medication Instructions Recorded Confirmed (units unknown) (unknown) (unknown) (no date) (unknown) (unknown) Medication Instructions Recorded (units unknown) (unknown) (unknown) (no date) (unknown) (unknown) Methylprednisolone (Methylprednisolone 125 Mg/2 Ml Vial) 125 mg IV NOW ONE (units unknown) (unknown) (unknown) (no date) (unknown) (unknown) Metoprolol Succinate (Metoprolol Er 50 Mg Tablet) 100 mg PO BID ROMAN (units unknown) (unknown) (unknown) (no date) (unknown) (unknown) Metoprolol Succinate (Metoprolol Er 50 Mg Tablet) 25 mg PO BID ROMAN (units unknown) (unknown) (unknown) (no date) (unknown) (unknown) [place] # (Auto) (0-900 ) /uL (units unknown) (unknown) (unknown) (no date) (unknown) (unknown) [place] # (Auto) 1000 H (0-900) /uL (units unknown) (unknown) (unknown) (no date) (unknown) (unknown) [place] % (Auto) (3-14) % (units unknown) (unknown) (unknown) (no date) (unknown) (unknown) [place] % (Auto) 9.6 (3-14) % (units unknown) (unknown) (unknown) (no date) (unknown) (unknown) Montelukast Sodium (Montelukast 10 Mg Tablet) 10 mg PO DAILY ROMAN (units unknown) (unknown) (unknown) (no date) (unknown) (unknown) NECK: Trachea midline. Non tender (units unknown) (unknown) (unknown) (no date) (unknown) (unknown) NEURO: AOx3. (units unknown) (unknown) (unknown) (no date) (unknown) (unknown) NEUROLOGIC: Denies weakness, headache, numbness, change in speech, confusion, (units unknown) (unknown) (unknown) (no date) (unknown) (unknown) NO need for transfer (units unknown) (unknown) (unknown) (no date) (unknown) (unknown) NT-Pro-B Natriuret Pep (<125) pg/mL (units unknown) (unknown) (unknown) (no date) (unknown) (unknown) NT-Pro-B Natriuret Pep 1250 H (<125) pg/mL (units unknown) (unknown) (unknown) (no date) (unknown) (unknown) Naloxone HCl (Naloxone 0.4 Mg/Ml Vial) 0.2 mg IV Q2MIN PRN (units unknown) (unknown) (unknown) (no date) (unknown) (unknown) Narrative (units unknown) (unknown) (unknown) (no date) (unknown) (unknown) Narrative: (units unknown) (unknown) (unknown) (no date) (unknown) (unknown) Neut # (Auto) (7544-0932) /uL (units unknown) (unknown) (unknown) (no date) (unknown) (unknown) Neut # (Auto) 6300 (4296-7766) /uL (units unknown) (unknown) (unknown) (no date) (unknown) (unknown) Neut % (Auto) (50-75 ) % (units unknown) (unknown) (unknown) (no date) (unknown) (unknown) Neut % (Auto) 62.0 (50-75) % (units unknown) (unknown) (unknown) (no date) (unknown) (unknown) ONE (units unknown) (unknown) (unknown) (no date) (unknown) (unknown) Ondansetron HCl (Ondansetron 4 Mg/2 Ml Inj) 4 mg IV Q8HR PRN (units unknown) (unknown) (unknown) (no date) (unknown) (unknown) Ordered: (units unknown) (unknown) (unknown) (no date) (unknown) (unknown) Orders (units unknown) (unknown) (unknown) (no date) (unknown) (unknown) Oxygen Delivery Method Nasal Cannula (units unknown) (unknown) (unknown) (no date) (unknown) (unknown) Oxygen Delivery Method (units unknown) (unknown) (unknown) (no date) (unknown) (unknown) Oxygen Flow Rate 3 (units unknown) (unknown) (unknown) (no date) (unknown) (unknown) Oxygen Flow Rate (units unknown) (unknown) (unknown) (no date) (unknown) (unknown) PRN Reason: Fever/Mild Pain (1-3) (units unknown) (unknown) (unknown) (no date) (unknown) (unknown) PRN Reason: Hypoglycemia (units unknown) (unknown) (unknown) (no date) (unknown) (unknown) PRN Reason: Nausea And Vomiting (units unknown) (unknown) (unknown) (no date) (unknown) (unknown) PRN Reason: Opiate Reversal (units unknown) (unknown) (unknown) (no date) (unknown) (unknown) PRN Reason: Shortnes s Of Breath (units unknown) (unknown) (unknown) (no date) (unknown) (unknown) PSYCHIATRIC: No concerning psychosocial issues. (units unknown) (unknown) (unknown) (no date) (unknown) (unknown) PT (10.1-12.7) SECONDS (units unknown) (unknown) (unknown) (no date) (unknown) (unknown) PT 15.5 H (10.1-12.7 ) SECONDS (units unknown) (unknown) (unknown) (no date) (unknown) (unknown) Pacemaker was interrogated without any events noted. Consultation with (units unknown) (unknown) (unknown) (no date) (unknown) (unknown) Parainfluenza 1 (PCR ) (Not Detect) (units unknown) (unknown) (unknown) (no date) (unknown) (unknown) Parainfluenza 1 (PCR ) Not detected (Not Detect) (units unknown) (unknown) (unknown) (no date) (unknown) (unknown) Parainfluenza 2 (PCR ) (Not Detect) (units unknown) (unknown) (unknown) (no date) (unknown) (unknown) Parainfluenza 2 (PCR ) Not detected (Not Detect) (units unknown) (unknown) (unknown) (no date) (unknown) (unknown) Parainfluenza 3 (PCR ) (Not Detect) (units unknown) (unknown) (unknown) (no date) (unknown) (unknown) Parainfluenza 3 (PCR ) Not detected (Not Detect) (units unknown) (unknown) (unknown) (no date) (unknown) (unknown) Parainfluenza 4 (PCR ) (Not Detect) (units unknown) (unknown) (unknown) (no date) (unknown) (unknown) Parainfluenza 4 (PCR ) Not detected (Not Detect) (units unknown) (unknown) (unknown) (no date) (unknown) (unknown) Patient Disposition: Admitted as Observation (units unknown) (unknown) (unknown) (no date) (unknown) (unknown) Patient History (units unknown) (unknown) (unknown) (no date) (unknown) (unknown) Patient with increased work of breathing over the past few days, increased (units unknown) (unknown) (unknown) (no date) (unknown) (unknown) Patient: Ester Benavides MR#: [id number] (units unknown) (unknown) (unknown) (no date) (unknown) (unknown) Plt Count (150-400) X103/uL (units unknown) (unknown) (unknown) (no date) (unknown) (unknown) Plt Count 232 (150-400) X103/uL (units unknown) (unknown) (unknown) (no date) (unknown) (unknown) Potassium (3.4-5.1) mmol/L (units unknown) (unknown) (unknown) (no date) (unknown) (unknown) Potassium 3.4 (3.4-5.1) mmol/L (units unknown) (unknown) (unknown) (no date) (unknown) (unknown) Prednisone (Prednisone 20 Mg Tablet) 40 mg PO DAILY ROMAN (units unknown) (unknown) (unknown) (no date) (unknown) (unknown) Previous Rx's (units unknown) (unknown) (unknown) (no date) (unknown) (unknown) Procalcitonin (<0.5) ng/mL (units unknown) (unknown) (unknown) (no date) (unknown) (unknown) Procalcitonin 0.06 (<0.5) ng/mL (units unknown) (unknown) (unknown) (no date) (unknown) (unknown) Pulse Oximetry 100 97 (units unknown) (unknown) (unknown) (no date) (unknown) (unknown) Pulse Oximetry 82 L (units unknown) (unknown) (unknown) (no date) (unknown) (unknown) Pulse Oximetry 93 94 (units unknown) (unknown) (unknown) (no date) (unknown) (unknown) Pulse Oximetry 93 96 (units unknown) (unknown) (unknown) (no date) (unknown) (unknown) Pulse Oximetry 94 (units unknown) (unknown) (unknown) (no date) (unknown) (unknown) Pulse Oximetry 95 (units unknown) (unknown) (unknown) (no date) (unknown) (unknown) Pulse Oximetry 96 98 (units unknown) (unknown) (unknown) (no date) (unknown) (unknown) Pulse Oximetry 96 (units unknown) (unknown) (unknown) (no date) (unknown) (unknown) Pulse Oximetry 97 96 (units unknown) (unknown) (unknown) (no date) (unknown) (unknown) Pulse Oximetry 97 97 (units unknown) (unknown) (unknown) (no date) (unknown) (unknown) Pulse Oximetry 97 (units unknown) (unknown) (unknown) (no date) (unknown) (unknown) Pulse Oximetry 98 09/06/22 16:39 (units unknown) (unknown) (unknown) (no date) (unknown) (unknown) Pulse Oximetry 98 97 (units unknown) (unknown) (unknown) (no date) (unknown) (unknown) Pulse Oximetry 98 98 (units unknown) (unknown) (unknown) (no date) (unknown) (unknown) Pulse Oximetry 98 (units unknown) (unknown) (unknown) (no date) (unknown) (unknown) Pulse Oximetry 99 98 95 (units unknown) (unknown) (unknown) (no date) (unknown) (unknown) Pulse Oximetry 99 98 98 (units unknown) (unknown) (unknown) (no date) (unknown) (unknown) Pulse Oximetry 99 98 (units unknown) (unknown) (unknown) (no date) (unknown) (unknown) Pulse Oximetry 99 (units unknown) (unknown) (unknown) (no date) (unknown) (unknown) Pulse Rate 44 L 09/06/22 16:39 (units unknown) (unknown) (unknown) (no date) (unknown) (unknown) Pulse Rate 74 (units unknown) (unknown) (unknown) (no date) (unknown) (unknown) Pulse Rate 78 (units unknown) (unknown) (unknown) (no date) (unknown) (unknown) Pulse Rate 79 77 78 (units unknown) (unknown) (unknown) (no date) (unknown) (unknown) Pulse Rate 79 (units unknown) (unknown) (unknown) (no date) (unknown) (unknown) Pulse Rate 80 44 L 80 (units unknown) (unknown) (unknown) (no date) (unknown) (unknown) Pulse Rate 80 (units unknown) (unknown) (unknown) (no date) (unknown) (unknown) Pulse Rate 81 78 (units unknown) (unknown) (unknown) (no date) (unknown) (unknown) Pulse Rate 81 80 (units unknown) (unknown) (unknown) (no date) (unknown) (unknown) Pulse Rate 82 73 (units unknown) (unknown) (unknown) (no date) (unknown) (unknown) Pulse Rate 82 82 (units unknown) (unknown) (unknown) (no date) (unknown) (unknown) Pulse Rate 83 75 (units unknown) (unknown) (unknown) (no date) (unknown) (unknown) Pulse Rate 83 80 (units unknown) (unknown) (unknown) (no date) (unknown) (unknown) Pulse Rate 84 (units unknown) (unknown) (unknown) (no date) (unknown) (unknown) Pulse Rate 85 83 (units unknown) (unknown) (unknown) (no date) (unknown) (unknown) Pulse Rate 86 80 83 (units unknown) (unknown) (unknown) (no date) (unknown) (unknown) Pulse Rate 86 (units unknown) (unknown) (unknown) (no date) (unknown) (unknown) Pulse Rate 93 H 82 (units unknown) (unknown) (unknown) (no date) (unknown) (unknown) Pulse Rate 93 H (units unknown) (unknown) (unknown) (no date) (unknown) (unknown) Pulse Rate 94 H 82 (units unknown) (unknown) (unknown) (no date) (unknown) (unknown) Pulse Rate 96 H (units unknown) (unknown) (unknown) (no date) (unknown) (unknown) RBC (4.0-5.2) X106/uL (units unknown) (unknown) (unknown) (no date) (unknown) (unknown) RBC 4.48 (4.0-5.2) X106/uL (units unknown) (unknown) (unknown) (no date) (unknown) (unknown) RDW (11.6-14.8) % (units unknown) (unknown) (unknown) (no date) (unknown) (unknown) RDW 14.8 (11.6-14.8) % (units unknown) (unknown) (unknown) (no date) (unknown) (unknown) RESPIRATORY: prolonged expiratory phase with decreased breath sounds (units unknown) (unknown) (unknown) (no date) (unknown) (unknown) RESPIRATORY: see HPI (units unknown) (unknown) (unknown) (no date) (unknown) (unknown) RSV (PCR) (Not Detect) (units unknown) (unknown) (unknown) (no date) (unknown) (unknown) RSV (PCR) Not detected (Not Detect) (units unknown) (unknown) (unknown) (no date) (unknown) (unknown) Radiologist's Impression: (units unknown) (unknown) (unknown) (no date) (unknown) (unknown) Related Data (units unknown) (unknown) (unknown) (no date) (unknown) (unknown) Respiratory Rate 24 28 H 36 H (units unknown) (unknown) (unknown) (no date) (unknown) (unknown) Respiratory Rate 24 29 H (units unknown) (unknown) (unknown) (no date) (unknown) (unknown) Respiratory Rate 25 H (units unknown) (unknown) (unknown) (no date) (unknown) (unknown) Respiratory Rate 26 H (units unknown) (unknown) (unknown) (no date) (unknown) (unknown) Respiratory Rate 27 H (units unknown) (unknown) (unknown) (no date) (unknown) (unknown) Respiratory Rate 28 H 28 H (units unknown) (unknown) (unknown) (no date) (unknown) (unknown) Respiratory Rate 28 H 29 H (units unknown) (unknown) (unknown) (no date) (unknown) (unknown) Respiratory Rate 28 H (units unknown) (unknown) (unknown) (no date) (unknown) (unknown) Respiratory Rate 29 H 25 H (units unknown) (unknown) (unknown) (no date) (unknown) (unknown) Respiratory Rate 29 H 33 H (units unknown) (unknown) (unknown) (no date) (unknown) (unknown) Respiratory Rate 29 H 35 H 39 H (units unknown) (unknown) (unknown) (no date) (unknown) (unknown) Respiratory Rate 29 H (units unknown) (unknown) (unknown) (no date) (unknown) (unknown) Respiratory Rate 30 H (units unknown) (unknown) (unknown) (no date) (unknown) (unknown) Respiratory Rate 32 H 31 H (units unknown) (unknown) (unknown) (no date) (unknown) (unknown) Respiratory Rate 33 H 35 H (units unknown) (unknown) (unknown) (no date) (unknown) (unknown) Respiratory Rate 35 H 29 H (units unknown) (unknown) (unknown) (no date) (unknown) (unknown) Respiratory Rate 35 H 33 H (units unknown) (unknown) (unknown) (no date) (unknown) (unknown) Respiratory Rate 36 H (units unknown) (unknown) (unknown) (no date) (unknown) (unknown) Respiratory Rate 40 H 24 (units unknown) (unknown) (unknown) (no date) (unknown) (unknown) Respiratory Rate 41 H (units unknown) (unknown) (unknown) (no date) (unknown) (unknown) Review of Systems (units unknown) (unknown) (unknown) (no date) (unknown) (unknown) SARS-CoV-2 (PCR) (No t Detecte) (units unknown) (unknown) (unknown) (no date) (unknown) (unknown) SARS-CoV-2 (PCR) Not detected (Not Detecte) (units unknown) (unknown) (unknown) (no date) (unknown) (unknown) ROMAN (units unknown) (unknown) (unknown) (no date) (unknown) (unknown) ROMAN; Protocol (units unknown) (unknown) (unknown) (no date) (unknown) (unknown) SKIN: Denies rash, skin lesions, or other (units unknown) (unknown) (unknown) (no date) (unknown) (unknown) SKIN: No rash or erythema of visible areas (units unknown) (unknown) (unknown) (no date) (unknown) (unknown) She is had no recent travel, change in medications, doses or diet. (units unknown) (unknown) (unknown) (no date) (unknown) (unknown) Signed By: (units unknown) (unknown) (unknown) (no date) (unknown) (unknown) Smoking Status: Current every day smoker (units unknown) (unknown) (unknown) (no date) (unknown) (unknown) Social History (units unknown) (unknown) (unknown) (no date) (unknown) (unknown) Sodium (137-145) mmol/L (units unknown) (unknown) (unknown) (no date) (unknown) (unknown) Sodium 140 (137-145) mmol/L (units unknown) (unknown) (unknown) (no date) (unknown) (unknown) Stated complaint: SO B monday/ [place] (units unknown) (unknown) (unknown) (no date) (unknown) (unknown) Stop: 09/06/22 16:36 (units unknown) (unknown) (unknown) (no date) (unknown) (unknown) Stop: 09/06/22 18:43 (units unknown) (unknown) (unknown) (no date) (unknown) (unknown) Stop: 09/07/22 09:01 (units unknown) (unknown) (unknown) (no date) (unknown) (unknown) Substance Use Type: does not use (units unknown) (unknown) (unknown) (no date) (unknown) (unknown) Time Seen by Provider: 09/06/22 16:31 (units unknown) (unknown) (unknown) (no date) (unknown) (unknown) Total Bilirubin (0.2-1.3) mg/dL (units unknown) (unknown) (unknown) (no date) (unknown) (unknown) Total Bilirubin 0.5 (0.2-1.3) mg/dL (units unknown) (unknown) (unknown) (no date) (unknown) (unknown) Total Creatine Kinas e < 20 L (30-135) U/L (units unknown) (unknown) (unknown) (no date) (unknown) (unknown) Total Creatine Kinas e (30-135) U/L (units unknown) (unknown) (unknown) (no date) (unknown) (unknown) Total Protein (6.3-8.2) g/dL (units unknown) (unknown) (unknown) (no date) (unknown) (unknown) Total Protein 6.7 (6.3-8.2) g/dL (units unknown) (unknown) (unknown) (no date) (unknown) (unknown) Troponin I (0.01-0.034) ng/mL (units unknown) (unknown) (unknown) (no date) (unknown) (unknown) Troponin I 0.013 (0.01-0.034) ng/mL (units unknown) (unknown) (unknown) (no date) (unknown) (unknown) Vital Signs - 8 hr (units unknown) (unknown) (unknown) (no date) (unknown) (unknown) Vital Signs (units unknown) (unknown) (unknown) (no date) (unknown) (unknown) Vital signs: (units unknown) (unknown) (unknown) (no date) (unknown) (unknown) WBC (4.5-11.0) X103/uL (units unknown) (unknown) (unknown) (no date) (unknown) (unknown) WBC 10.2 (4.5-11.0) X103/uL (units unknown) (unknown) (unknown) (no date) (unknown) (unknown) [Embedded Image Not Available] (units unknown) (unknown) (unknown) (no date) (unknown) (unknown) accept patient on their service. Patient understands and agrees with diagnosis (units unknown) (unknown) (unknown) (no date) (unknown) (unknown) acetaminophen [From Midol] Allergy Verified 07/06/21 13:33 (units unknown) (unknown) (unknown) (no date) (unknown) (unknown) aerosol inhaler (Ventolin HFA) Shortness Of Breath (units unknown) (unknown) (unknown) (no date) (unknown) (unknown) albuterol sulfate 90 mcg/actuation 2 inh inhalation Q4H PRN Shortness 09/06/22 (units unknown) (unknown) (unknown) (no date) (unknown) (unknown) albuterol sulfate 90 mcg/actuation 2 puff inhalation QID PRN 07/25/22 09/06/22 (units unknown) (unknown) (unknown) (no date) (unknown) (unknown) alcohol intake: former (units unknown) (unknown) (unknown) (no date) (unknown) (unknown) amiodarone 200 mg tablet 100 mg PO DAILY 07/25/22 09/06/22 (units unknown) (unknown) (unknown) (no date) (unknown) (unknown) and plan (units unknown) (unknown) (unknown) (no date) (unknown) (unknown) apixaban 5 mg tablet (Eliquis) 5 mg PO BID 07/25/22 09/06/22 (units unknown) (unknown) (unknown) (no date) (unknown) (unknown) bee pollen Allergy Severe Anaphylaxis Verified 07/28/22 10:43 (units unknown) (unknown) (unknown) (no date) (unknown) (unknown) breath activated powder inhaler Of Breath (units unknown) (unknown) (unknown) (no date) (unknown) (unknown) cardiology (Dr. Butler) see details above. Patient requires hospitalization (units unknown) (unknown) (unknown) (no date) (unknown) (unknown) codeine Allergy Verified 07/06/21 13:34 (units unknown) (unknown) (unknown) (no date) (unknown) (unknown) considered, infectious process, cardiac etiology, pacemaker dysfunction etc.. (units unknown) (unknown) (unknown) (no date) (unknown) (unknown) constipation, melena. (units unknown) (unknown) (unknown) (no date) (unknown) (unknown) denies any runny nose, sore throat and has had a harsh wet sounding cough she (units unknown) (unknown) (unknown) (no date) (unknown) (unknown) dextromethorphan-gua i fenesin 30 1 tab PO BEDTIME 09/06/22 09/06/22 (units unknown) (unknown) (unknown) (no date) (unknown) (unknown) discussed with Dr. Butler. Recommends diuresis, admission here at [place], [place]. (units unknown) (unknown) (unknown) (no date) (unknown) (unknown) dizziness. (units unknown) (unknown) (unknown) (no date) (unknown) (unknown) doxycycline AdvReac Vomiting Verified 07/28/22 10:43 (units unknown) (unknown) (unknown) (no date) (unknown) (unknown) erythromycin base Allergy Verified 07/06/21 13:34 (units unknown) (unknown) (unknown) (no date) (unknown) (unknown) for further treatmen t and stabilization of condition, including echocardiogram. (units unknown) (unknown) (unknown) (no date) (unknown) (unknown) furosemide 40 mg tablet 80 mg PO DAILY 07/25/22 09/06/22 (units unknown) (unknown) (unknown) (no date) (unknown) (unknown) glipizide 5 mg tablet, extended 5 mg PO DAILY #30 tabs 07/28/22 (units unknown) (unknown) (unknown) (no date) (unknown) (unknown) her oxygen more ofte n than normal. She denies nausea, vomiting or diarrhea. (units unknown) (unknown) (unknown) (no date) (unknown) (unknown) household members: spouse (units unknown) (unknown) (unknown) (no date) (unknown) (unknown) icterus. No injectio n or drainage. (units unknown) (unknown) (unknown) (no date) (unknown) (unknown) iodine Allergy Rash Verified 07/27/22 13:32 (units unknown) (unknown) (unknown) (no date) (unknown) (unknown) latex Allergy Rash Verified 07/27/22 13:29 (units unknown) (unknown) (unknown) (no date) (unknown) (unknown) lisinopril 5 mg tablet 5 mg PO DAILY 07/25/22 09/06/22 (units unknown) (unknown) (unknown) (no date) (unknown) (unknown) lives independently: Yes (units unknown) (unknown) (unknown) (no date) (unknown) (unknown) methocarbamol 500 mg tablet 500 mg PO TID PRN Muscle Spasm 09/06/22 09/06/22 (units unknown) (unknown) (unknown) (no date) (unknown) (unknown) metoprolol succinate 25 mg 25 mg PO BID 09/06/22 09/06/22 (units unknown) (unknown) (unknown) (no date) (unknown) (unknown) mg-600 mg tablet extended (units unknown) (unknown) (unknown) (no date) (unknown) (unknown) mild distress. (units unknown) (unknown) (unknown) (no date) (unknown) (unknown) multivitamin 1 tab P O DAILY 09/06/22 09/06/22 (units unknown) (unknown) (unknown) (no date) (unknown) (unknown) oxycodone 5 mg table t 5 mg PO Q4HR PRN pain #20 tabs 07/28/22 (units unknown) (unknown) (unknown) (no date) (unknown) (unknown) oxygen demand including flow rate and duration of use. Multiple diagnoses (units unknown) (unknown) (unknown) (no date) (unknown) (unknown) pamabrom [From Midol ] Allergy Verified 07/06/21 13:33 (units unknown) (unknown) (unknown) (no date) (unknown) (unknown) presents by EMS with worsening shortness of breath over the past 3-4 days. She (units unknown) (unknown) (unknown) (no date) (unknown) (unknown) promethazine 25 mg tablet 25 mg PO Q6H PRN Nausea 09/06/22 09/06/22 (units unknown) (unknown) (unknown) (no date) (unknown) (unknown) release 24 hr (Glucotrol XL) (units unknown) (unknown) (unknown) (no date) (unknown) (unknown) [id number] hr (Mucine x DM) (units unknown) (unknown) (unknown) (no date) (unknown) (unknown) seizures, incoordination. (units unknown) (unknown) (unknown) (no date) (unknown) (unknown) shellfish derived Allergy Severe Anaphylaxis Verified 07/28/22 10:43 (units unknown) (unknown) (unknown) (no date) (unknown) (unknown) short of breath with exertion and lying flat and admits that she is been using (units unknown) (unknown) (unknown) (no date) (unknown) (unknown) spironolactone 25 mg tablet 25 mg PO DAILY 07/25/22 09/06/22 (units unknown) (unknown) (unknown) (no date) (unknown) (unknown) states for many year s and it is no different than normal. She becomes more (units unknown) (unknown) (unknown) (no date) (unknown) (unknown) tablet,extended release 24 hr (units unknown) (unknown) (unknown) (no date) (unknown) (unknown) throughout, perhaps faint crackles in bilateral bases (units unknown) (unknown) (unknown) (no date) (unknown) (unknown) tonsillar hypertroph y or exudate. Airway patent. (units unknown) (unknown) Result panel [id number] (unknown) (no date) (unknown) (unknown) (no value) (units unknown) (unknown) (unknown) (no date) (unknown) (unknown) (past 8 hours): (units unknown) (unknown) (unknown) (no date) (unknown) (unknown) ---acute on chronic CHFrEF (units unknown) (unknown) (unknown) (no date) (unknown) (unknown) ---possible acute COPD exacerbation (units unknown) (unknown) (unknown) (no date) (unknown) (unknown) -BMI 41, will affect illness healing (units unknown) (unknown) (unknown) (no date) (unknown) (unknown) -continue eliquis, metoprolol, and amiodarone (units unknown) (unknown) (unknown) (no date) (unknown) (unknown) -continue lisinopril , eliquis, metoprolol (units unknown) (unknown) (unknown) (no date) (unknown) (unknown) -continue metoprolol , lisinopril (units unknown) (unknown) (unknown) (no date) (unknown) (unknown) -creatinine 1.29, near baseline (units unknown) (unknown) (unknown) (no date) (unknown) (unknown) -echo done just one month ago showing severe global hypokinesis and EF 25-30%, (units unknown) (unknown) (unknown) (no date) (unknown) (unknown) -for copd exacerbation will order steroids, azithromycin, and nebs (units unknown) (unknown) (unknown) (no date) (unknown) (unknown) -for now hold spironolactone (units unknown) (unknown) (unknown) (no date) (unknown) (unknown) -hold oral medications (units unknown) (unknown) (unknown) (no date) (unknown) (unknown) -ordered for IV lasix, low salt diet (units unknown) (unknown) (unknown) (no date) (unknown) (unknown) -ordered insulin sliding scale (units unknown) (unknown) (unknown) (no date) (unknown) (unknown) -patient has history of dietary nonadherence (units unknown) (unknown) (unknown) (no date) (unknown) (unknown) -start lantus as she is hyperglycemic likely secondary to steroids (units unknown) (unknown) (unknown) (no date) (unknown) (unknown) -symptoms are more consistent with acute CHF exacerbation with elevated BNP, (units unknown) (unknown) (unknown) (no date) (unknown) (unknown) -trend daily (units unknown) (unknown) (unknown) (no date) (unknown) (unknown) 04/09/06/22 09/06/22 (units unknown) (unknown) (unknown) (no date) (unknown) (unknown) 09/06/22 09/07/22 09/07/22 (units unknown) (unknown) (unknown) (no date) (unknown) (unknown) 09/07/22 04:51 (units unknown) (unknown) (unknown) (no date) (unknown) (unknown) 09/07/22 (units unknown) (unknown) (unknown) (no date) (unknown) (unknown) 04:00 09/07/22 (units unknown) (unknown) (unknown) (no date) (unknown) (unknown) 06:16 09/07/22 (units unknown) (unknown) (unknown) (no date) (unknown) (unknown) 07:13 (units unknown) (unknown) (unknown) (no date) (unknown) (unknown) 07:58 (units unknown) (unknown) (unknown) (no date) (unknown) (unknown) 1. Acute on chronic respiratory failure secondary to: (units unknown) (unknown) (unknown) (no date) (unknown) (unknown) 17:10 17:16 17:16 (units unknown) (unknown) (unknown) (no date) (unknown) (unknown) 17:16 17:16 18:35 (units unknown) (unknown) (unknown) (no date) (unknown) (unknown) [id number] (units unknown) (unknown) (unknown) (no date) (unknown) (unknown) 19:33 04:51 04:51 (units unknown) (unknown) (unknown) (no date) (unknown) (unknown) 2. CAD s/p stents s/ p ppm/aicd (units unknown) (unknown) (unknown) (no date) (unknown) (unknown) 3. Chronic atrial fibrillation (units unknown) (unknown) (unknown) (no date) (unknown) (unknown) 4. CKD stage 2 (units unknown) (unknown) (unknown) (no date) (unknown) (unknown) 5. Morbid obesity (units unknown) (unknown) (unknown) (no date) (unknown) (unknown) 6. Type 2 Diabetes (units unknown) (unknown) (unknown) (no date) (unknown) (unknown) ABD: soft, nontender , nondistended, no organomegaly, normal bowel sounds (units unknown) (unknown) (unknown) (no date) (unknown) (unknown) ABG Base Excess 6.0 H (units unknown) (unknown) (unknown) (no date) (unknown) (unknown) ABG Base Excess (units unknown) (unknown) (unknown) (no date) (unknown) (unknown) ABG HCO3 31 H (units unknown) (unknown) (unknown) (no date) (unknown) (unknown) ABG HCO3 (units unknown) (unknown) (unknown) (no date) (unknown) (unknown) ABG O2 Saturation 94 L (units unknown) (unknown) (unknown) (no date) (unknown) (unknown) ABG O2 Saturation (units unknown) (unknown) (unknown) (no date) (unknown) (unknown) ABG Total CO2 32 H (units unknown) (unknown) (unknown) (no date) (unknown) (unknown) ABG Total CO2 (units unknown) (unknown) (unknown) (no date) (unknown) (unknown) ABG pCO2 46.9 H (units unknown) (unknown) (unknown) (no date) (unknown) (unknown) ABG pCO2 (units unknown) (unknown) (unknown) (no date) (unknown) (unknown) ABG pH 7.42 (units unknown) (unknown) (unknown) (no date) (unknown) (unknown) ABG pH (units unknown) (unknown) (unknown) (no date) (unknown) (unknown) ABG pO2 70 L (units unknown) (unknown) (unknown) (no date) (unknown) (unknown) ABG pO2 (units unknown) (unknown) (unknown) (no date) (unknown) (unknown) ALT 19 (units unknown) (unknown) (unknown) (no date) (unknown) (unknown) ALT (units unknown) (unknown) (unknown) (no date) (unknown) (unknown) APTT 35 (units unknown) (unknown) (unknown) (no date) (unknown) (unknown) APTT (units unknown) (unknown) (unknown) (no date) (unknown) (unknown) AST 20 (units unknown) (unknown) (unknown) (no date) (unknown) (unknown) AST (units unknown) (unknown) (unknown) (no date) (unknown) (unknown) Adenovirus (PCR) Not detected (units unknown) (unknown) (unknown) (no date) (unknown) (unknown) Adenovirus (PCR) (units unknown) (unknown) (unknown) (no date) (unknown) (unknown) Age/Sex: 57 / F (units unknown) (unknown) (unknown) (no date) (unknown) (unknown) Albumin 3.8 (units unknown) (unknown) (unknown) (no date) (unknown) (unknown) Albumin (units unknown) (unknown) (unknown) (no date) (unknown) (unknown) Albumin/Globulin Ratio 1.3 (units unknown) (unknown) (unknown) (no date) (unknown) (unknown) Albumin/Globulin Ratio (units unknown) (unknown) (unknown) (no date) (unknown) (unknown) Alkaline Phosphatase 81 (units unknown) (unknown) (unknown) (no date) (unknown) (unknown) Alkaline Phosphatase (units unknown) (unknown) (unknown) (no date) (unknown) (unknown) Assessment + Plan narrative: (units unknown) (unknown) (unknown) (no date) (unknown) (unknown) Assessment + Plan (units unknown) (unknown) (unknown) (no date) (unknown) (unknown) B. pertussis DNA (PCR) Not detected (units unknown) (unknown) (unknown) (no date) (unknown) (unknown) B. pertussis DNA (PCR) (units unknown) (unknown) (unknown) (no date) (unknown) (unknown) B.parapertussis DNA PCR Not detected (units unknown) (unknown) (unknown) (no date) (unknown) (unknown) B.parapertussis DNA PCR (units unknown) (unknown) (unknown) (no date) (unknown) (unknown) BUN 26 H (units unknown) (unknown) (unknown) (no date) (unknown) (unknown) BUN 28 H (units unknown) (unknown) (unknown) (no date) (unknown) (unknown) BUN (units unknown) (unknown) (unknown) (no date) (unknown) (unknown) BUN/Creatinine Ratio 20.2 (units unknown) (unknown) (unknown) (no date) (unknown) (unknown) BUN/Creatinine Ratio 22.6 H (units unknown) (unknown) (unknown) (no date) (unknown) (unknown) BUN/Creatinine Ratio (units unknown) (unknown) (unknown) (no date) (unknown) (unknown) Baso # (Auto) 0 (units unknown) (unknown) (unknown) (no date) (unknown) (unknown) Baso # (Auto) 100 (units unknown) (unknown) (unknown) (no date) (unknown) (unknown) Baso # (Auto) (units unknown) (unknown) (unknown) (no date) (unknown) (unknown) Baso % (Auto) 0.3 (units unknown) (unknown) (unknown) (no date) (unknown) (unknown) Baso % (Auto) 1.0 (units unknown) (unknown) (unknown) (no date) (unknown) (unknown) Baso % (Auto) (units unknown) (unknown) (unknown) (no date) (unknown) (unknown) Blood Pressure 111/5 7 L 119/61 (units unknown) (unknown) (unknown) (no date) (unknown) (unknown) Blood Pressure 112/74 (units unknown) (unknown) (unknown) (no date) (unknown) (unknown) CK-MB (CK-2) Rel Index TNP (units unknown) (unknown) (unknown) (no date) (unknown) (unknown) CK-MB (CK-2) Rel Index (units unknown) (unknown) (unknown) (no date) (unknown) (unknown) CK-MB (CK-2) TNP (units unknown) (unknown) (unknown) (no date) (unknown) (unknown) CK-MB (CK-2) (units unknown) (unknown) (unknown) (no date) (unknown) (unknown) CODE: Full (units unknown) (unknown) (unknown) (no date) (unknown) (unknown) COPD (chronic obstructive pulmonary disease) (units unknown) (unknown) (unknown) (no date) (unknown) (unknown) CV: irregular, no murmurs (units unknown) (unknown) (unknown) (no date) (unknown) (unknown) Calcium 8.7 (units unknown) (unknown) (unknown) (no date) (unknown) (unknown) Calcium 9.0 (units unknown) (unknown) (unknown) (no date) (unknown) (unknown) Calcium (units unknown) (unknown) (unknown) (no date) (unknown) (unknown) Carbon Dioxide 28 (units unknown) (unknown) (unknown) (no date) (unknown) (unknown) Carbon Dioxide 35 H (units unknown) (unknown) (unknown) (no date) (unknown) (unknown) Carbon Dioxide (units unknown) (unknown) (unknown) (no date) (unknown) (unknown) Chlamy pneumoniae PC R Not detected (units unknown) (unknown) (unknown) (no date) (unknown) (unknown) Chlamy pneumoniae PCR (units unknown) (unknown) (unknown) (no date) (unknown) (unknown) Chloride 100 (units unknown) (unknown) (unknown) (no date) (unknown) (unknown) Chloride 98 (units unknown) (unknown) (unknown) (no date) (unknown) (unknown) Chloride (units unknown) (unknown) (unknown) (no date) (unknown) (unknown) Coronavirus 229E (PCR) Not detected (units unknown) (unknown) (unknown) (no date) (unknown) (unknown) Coronavirus 229E (PCR) (units unknown) (unknown) (unknown) (no date) (unknown) (unknown) Coronavirus HKU1 (PCR) Not detected (units unknown) (unknown) (unknown) (no date) (unknown) (unknown) Coronavirus HKU1 (PCR) (units unknown) (unknown) (unknown) (no date) (unknown) (unknown) Coronavirus NL63 (PCR) Not detected (units unknown) (unknown) (unknown) (no date) (unknown) (unknown) Coronavirus NL63 (PCR) (units unknown) (unknown) (unknown) (no date) (unknown) (unknown) Coronavirus OC43 (PCR) Not detected (units unknown) (unknown) (unknown) (no date) (unknown) (unknown) Coronavirus OC43 (PCR) (units unknown) (unknown) (unknown) (no date) (unknown) (unknown) Creatinine 1.24 H (units unknown) (unknown) (unknown) (no date) (unknown) (unknown) Creatinine 1.29 H (units unknown) (unknown) (unknown) (no date) (unknown) (unknown) Creatinine (units unknown) (unknown) (unknown) (no date) (unknown) (unknown) : 1965 Acct:[id number] (units unknown) (unknown) (unknown) (no date) (unknown) (unknown) Date of Service: 09/06/22 (units unknown) (unknown) (unknown) (no date) (unknown) (unknown) Deep Vein Thrombosis/Pulmonary Embolism Present on Admission: No (units unknown) (unknown) (unknown) (no date) (unknown) (unknown) EXT: warm and well perfused with no edema (units unknown) (unknown) (unknown) (no date) (unknown) (unknown) Entero/Rhino (PCR) Not detected (units unknown) (unknown) (unknown) (no date) (unknown) (unknown) Entero/Rhino (PCR) (units unknown) (unknown) (unknown) (no date) (unknown) (unknown) Eos # (Auto) 0 (units unknown) (unknown) (unknown) (no date) (unknown) (unknown) Eos # (Auto) 100 (units unknown) (unknown) (unknown) (no date) (unknown) (unknown) Eos # (Auto) (units unknown) (unknown) (unknown) (no date) (unknown) (unknown) Eos % (Auto) 0.0 L (units unknown) (unknown) (unknown) (no date) (unknown) (unknown) Eos % (Auto) 1.1 L (units unknown) (unknown) (unknown) (no date) (unknown) (unknown) Eos % (Auto) (units unknown) (unknown) (unknown) (no date) (unknown) (unknown) Estimated GFR 48 L (units unknown) (unknown) (unknown) (no date) (unknown) (unknown) Estimated GFR 50 L (units unknown) (unknown) (unknown) (no date) (unknown) (unknown) Estimated GFR (units unknown) (unknown) (unknown) (no date) (unknown) (unknown) Exam Narrative: (units unknown) (unknown) (unknown) (no date) (unknown) (unknown) Exam (units unknown) (unknown) (unknown) (no date) (unknown) (unknown) FiO2 32 (units unknown) (unknown) (unknown) (no date) (unknown) (unknown) FiO2 (units unknown) (unknown) (unknown) (no date) (unknown) (unknown) Fraction of Inspired Oxygen 32 (units unknown) (unknown) (unknown) (no date) (unknown) (unknown) GEN: in respiratory distress (units unknown) (unknown) (unknown) (no date) (unknown) (unknown) Globulin 2.9 (units unknown) (unknown) (unknown) (no date) (unknown) (unknown) Globulin (units unknown) (unknown) (unknown) (no date) (unknown) (unknown) Glucose 284 H D (units unknown) (unknown) (unknown) (no date) (unknown) (unknown) Glucose 89 (units unknown) (unknown) (unknown) (no date) (unknown) (unknown) Glucose (units unknown) (unknown) (unknown) (no date) (unknown) (unknown) HEENT: moist mucous membranes, PERRL (units unknown) (unknown) (unknown) (no date) (unknown) (unknown) Hct 42.1 (units unknown) (unknown) (unknown) (no date) (unknown) (unknown) Hct 42.8 (units unknown) (unknown) (unknown) (no date) (unknown) (unknown) Hct (units unknown) (unknown) (unknown) (no date) (unknown) (unknown) Hgb 14.5 (units unknown) (unknown) (unknown) (no date) (unknown) (unknown) Hgb (units unknown) (unknown) (unknown) (no date) (unknown) (unknown) Human Metapneumovir PCR Not detected (units unknown) (unknown) (unknown) (no date) (unknown) (unknown) Human Metapneumovir PCR (units unknown) (unknown) (unknown) (no date) (unknown) (unknown) I have discussed marguerite n and obtained history from the patient. I have discussed (units unknown) (unknown) (unknown) (no date) (unknown) (unknown) INR 1.3 (units unknown) (unknown) (unknown) (no date) (unknown) (unknown) INR (units unknown) (unknown) (unknown) (no date) (unknown) (unknown) Influenza Type A (PCR) Not detected (units unknown) (unknown) (unknown) (no date) (unknown) (unknown) Influenza Type A (PCR) (units unknown) (unknown) (unknown) (no date) (unknown) (unknown) Influenza Type B (PCR) Not detected (units unknown) (unknown) (unknown) (no date) (unknown) (unknown) Influenza Type B (PCR) (units unknown) (unknown) (unknown) (no date) (unknown) (unknown) [address] [address] (units unknown) (unknown) (unknown) (no date) (unknown) (unknown) Laboratory Results - last 24 hr (units unknown) (unknown) (unknown) (no date) (unknown) (unknown) Labs (units unknown) (unknown) (unknown) (no date) (unknown) (unknown) Labs: (units unknown) (unknown) (unknown) (no date) (unknown) (unknown) Lactate 1.0 (units unknown) (unknown) (unknown) (no date) (unknown) (unknown) Lactate (units unknown) (unknown) (unknown) (no date) (unknown) (unknown) Lipase 80 (units unknown) (unknown) (unknown) (no date) (unknown) (unknown) Lipase (units unknown) (unknown) (unknown) (no date) (unknown) (unknown) Lymph # (Auto) 2700 (units unknown) (unknown) (unknown) (no date) (unknown) (unknown) Lymph # (Auto) 500 L (units unknown) (unknown) (unknown) (no date) (unknown) (unknown) Lymph # (Auto) (units unknown) (unknown) (unknown) (no date) (unknown) (unknown) Lymph % (Auto) 26.3 (units unknown) (unknown) (unknown) (no date) (unknown) (unknown) Lymph % (Auto) 6.3 L D (units unknown) (unknown) (unknown) (no date) (unknown) (unknown) Lymph % (Auto) (units unknown) (unknown) (unknown) (no date) (unknown) (unknown) M. pneumoniae (PCR) Not detected (units unknown) (unknown) (unknown) (no date) (unknown) (unknown) M. pneumoniae (PCR) (units unknown) (unknown) (unknown) (no date) (unknown) (unknown) MCH 31.9 (units unknown) (unknown) (unknown) (no date) (unknown) (unknown) MCH 32.5 (units unknown) (unknown) (unknown) (no date) (unknown) (unknown) MCH (units unknown) (unknown) (unknown) (no date) (unknown) (unknown) MCHC 33.8 (units unknown) (unknown) (unknown) (no date) (unknown) (unknown) MCHC 34.6 (units unknown) (unknown) (unknown) (no date) (unknown) (unknown) MCHC (units unknown) (unknown) (unknown) (no date) (unknown) (unknown) MCV 93.9 (units unknown) (unknown) (unknown) (no date) (unknown) (unknown) MCV 94.3 (units unknown) (unknown) (unknown) (no date) (unknown) (unknown) MCV (units unknown) (unknown) (unknown) (no date) (unknown) (unknown) Magnesium 1.8 (units unknown) (unknown) (unknown) (no date) (unknown) (unknown) Magnesium 1.9 (units unknown) (unknown) (unknown) (no date) (unknown) (unknown) Magnesium (units unknown) (unknown) (unknown) (no date) (unknown) (unknown) Medical History (units unknown) (unknown) (unknown) (no date) (unknown) (unknown) [place] # (Auto) 100 (units unknown) (unknown) (unknown) (no date) (unknown) (unknown) [place] # (Auto) 1000 H (units unknown) (unknown) (unknown) (no date) (unknown) (unknown) [place] # (Auto) (units unknown) (unknown) (unknown) (no date) (unknown) (unknown) [place] % (Auto) 1.4 L (units unknown) (unknown) (unknown) (no date) (unknown) (unknown) [place] % (Auto) 9.6 (units unknown) (unknown) (unknown) (no date) (unknown) (unknown) [place] % (Auto) (units unknown) (unknown) (unknown) (no date) (unknown) (unknown) NECK: trachea midline, no JVD (units unknown) (unknown) (unknown) (no date) (unknown) (unknown) NEURO: awake, alert, oriented, no focal deficits (units unknown) (unknown) (unknown) (no date) (unknown) (unknown) NT-Pro-B Natriuret Pep 1250 H (units unknown) (unknown) (unknown) (no date) (unknown) (unknown) NT-Pro-B Natriuret Pep (units unknown) (unknown) (unknown) (no date) (unknown) (unknown) Narrative (units unknown) (unknown) (unknown) (no date) (unknown) (unknown) Neut # (Auto) 6300 (units unknown) (unknown) (unknown) (no date) (unknown) (unknown) Neut # (Auto) 7900 H (units unknown) (unknown) (unknown) (no date) (unknown) (unknown) Neut # (Auto) (units unknown) (unknown) (unknown) (no date) (unknown) (unknown) Neut % (Auto) 62.0 (units unknown) (unknown) (unknown) (no date) (unknown) (unknown) Neut % (Auto) 92.0 H D (units unknown) (unknown) (unknown) (no date) (unknown) (unknown) Neut % (Auto) (units unknown) (unknown) (unknown) (no date) (unknown) (unknown) Objective (units unknown) (unknown) (unknown) (no date) (unknown) (unknown) Oxygen Delivery Method Oximask (units unknown) (unknown) (unknown) (no date) (unknown) (unknown) Oxygen Delivery Method (units unknown) (unknown) (unknown) (no date) (unknown) (unknown) Oxygen Flow Rate 3 3 (units unknown) (unknown) (unknown) (no date) (unknown) (unknown) Oxygen Flow Rate 3 (units unknown) (unknown) (unknown) (no date) (unknown) (unknown) PFSH (units unknown) (unknown) (unknown) (no date) (unknown) (unknown) PT 15.5 H (units unknown) (unknown) (unknown) (no date) (unknown) (unknown) PT (units unknown) (unknown) (unknown) (no date) (unknown) (unknown) PULM: decreased air sound bilaterally, with bilateral crackles (units unknown) (unknown) (unknown) (no date) (unknown) (unknown) Parainfluenza 1 (PCR ) Not detected (units unknown) (unknown) (unknown) (no date) (unknown) (unknown) Parainfluenza 1 (PCR) (units unknown) (unknown) (unknown) (no date) (unknown) (unknown) Parainfluenza 2 (PCR ) Not detected (units unknown) (unknown) (unknown) (no date) (unknown) (unknown) Parainfluenza 2 (PCR) (units unknown) (unknown) (unknown) (no date) (unknown) (unknown) Parainfluenza 3 (PCR ) Not detected (units unknown) (unknown) (unknown) (no date) (unknown) (unknown) Parainfluenza 3 (PCR) (units unknown) (unknown) (unknown) (no date) (unknown) (unknown) Parainfluenza 4 (PCR ) Not detected (units unknown) (unknown) (unknown) (no date) (unknown) (unknown) Parainfluenza 4 (PCR) (units unknown) (unknown) (unknown) (no date) (unknown) (unknown) Patient: Ester Benavides MR#: [id number] (units unknown) (unknown) (unknown) (no date) (unknown) (unknown) Plt Count 219 (units unknown) (unknown) (unknown) (no date) (unknown) (unknown) Plt Count 232 (units unknown) (unknown) (unknown) (no date) (unknown) (unknown) Plt Count (units unknown) (unknown) (unknown) (no date) (unknown) (unknown) Potassium 3.4 (units unknown) (unknown) (unknown) (no date) (unknown) (unknown) Potassium 3.6 (units unknown) (unknown) (unknown) (no date) (unknown) (unknown) Potassium (units unknown) (unknown) (unknown) (no date) (unknown) (unknown) Procalcitonin 0.06 (units unknown) (unknown) (unknown) (no date) (unknown) (unknown) Procalcitonin (units unknown) (unknown) (unknown) (no date) (unknown) (unknown) Progress Note (units unknown) (unknown) (unknown) (no date) (unknown) (unknown) Provider: Jerald Sanches D.O. (units unknown) (unknown) (unknown) (no date) (unknown) (unknown) Proxy: jon Chacon (units unknown) (unknown) (unknown) (no date) (unknown) (unknown) Pulse Oximetry 93 (units unknown) (unknown) (unknown) (no date) (unknown) (unknown) Pulse Oximetry 94 93 (units unknown) (unknown) (unknown) (no date) (unknown) (unknown) Pulse Rate 52 L 78 (units unknown) (unknown) (unknown) (no date) (unknown) (unknown) Pulse Rate 80 (units unknown) (unknown) (unknown) (no date) (unknown) (unknown) Quality (units unknown) (unknown) (unknown) (no date) (unknown) (unknown) RBC 4.48 (units unknown) (unknown) (unknown) (no date) (unknown) (unknown) RBC 4.54 (units unknown) (unknown) (unknown) (no date) (unknown) (unknown) RBC (units unknown) (unknown) (unknown) (no date) (unknown) (unknown) RDW 14.5 (units unknown) (unknown) (unknown) (no date) (unknown) (unknown) RDW 14.8 (units unknown) (unknown) (unknown) (no date) (unknown) (unknown) RDW (units unknown) (unknown) (unknown) (no date) (unknown) (unknown) RSV (PCR) Not detected (units unknown) (unknown) (unknown) (no date) (unknown) (unknown) RSV (PCR) (units unknown) (unknown) (unknown) (no date) (unknown) (unknown) Respiratory Rate 19 (units unknown) (unknown) (unknown) (no date) (unknown) (unknown) Respiratory Rate 24 (units unknown) (unknown) (unknown) (no date) (unknown) (unknown) SARS-CoV-2 (PCR) Not detected (units unknown) (unknown) (unknown) (no date) (unknown) (unknown) SARS-CoV-2 (PCR) (units unknown) (unknown) (unknown) (no date) (unknown) (unknown) SaO2/FiO2 Ratio 290 (units unknown) (unknown) (unknown) (no date) (unknown) (unknown) Signed By: (units unknown) (unknown) (unknown) (no date) (unknown) (unknown) Smoking Status: Current every day smoker (units unknown) (unknown) (unknown) (no date) (unknown) (unknown) Social History (units unknown) (unknown) (unknown) (no date) (unknown) (unknown) Sodium 136 L (units unknown) (unknown) (unknown) (no date) (unknown) (unknown) Sodium 140 (units unknown) (unknown) (unknown) (no date) (unknown) (unknown) Sodium (units unknown) (unknown) (unknown) (no date) (unknown) (unknown) Temperature 96.8 F L (units unknown) (unknown) (unknown) (no date) (unknown) (unknown) Temperature 98 F (units unknown) (unknown) (unknown) (no date) (unknown) (unknown) Total Bilirubin 0.5 (units unknown) (unknown) (unknown) (no date) (unknown) (unknown) Total Bilirubin (units unknown) (unknown) (unknown) (no date) (unknown) (unknown) Total Creatine Kinas e < 20 L (units unknown) (unknown) (unknown) (no date) (unknown) (unknown) Total Creatine Kinase (units unknown) (unknown) (unknown) (no date) (unknown) (unknown) Total Protein 6.7 (units unknown) (unknown) (unknown) (no date) (unknown) (unknown) Total Protein (units unknown) (unknown) (unknown) (no date) (unknown) (unknown) Troponin I 0.013 (units unknown) (unknown) (unknown) (no date) (unknown) (unknown) Troponin I (units unknown) (unknown) (unknown) (no date) (unknown) (unknown) Ur Culture Indicated ? Cult not indicated (units unknown) (unknown) (unknown) (no date) (unknown) (unknown) Ur Culture Indicated? (units unknown) (unknown) (unknown) (no date) (unknown) (unknown) Ur Leukocyte [place] e Negative (units unknown) (unknown) (unknown) (no date) (unknown) (unknown) Ur Leukocyte Esterase (units unknown) (unknown) (unknown) (no date) (unknown) (unknown) Ur Specific [place] 1.010 (units unknown) (unknown) (unknown) (no date) (unknown) (unknown) Ur Specific [place] (units unknown) (unknown) (unknown) (no date) (unknown) (unknown) Ur Squamous Epith Cells 0-1 /hpf (units unknown) (unknown) (unknown) (no date) (unknown) (unknown) Ur Squamous Epith Cells (units unknown) (unknown) (unknown) (no date) (unknown) (unknown) Urine Appearance Clear (units unknown) (unknown) (unknown) (no date) (unknown) (unknown) Urine Appearance (units unknown) (unknown) (unknown) (no date) (unknown) (unknown) Urine Bacteria Occasional (0-1) (units unknown) (unknown) (unknown) (no date) (unknown) (unknown) Urine Bacteria (units unknown) (unknown) (unknown) (no date) (unknown) (unknown) Urine Bilirubin Negative (units unknown) (unknown) (unknown) (no date) (unknown) (unknown) Urine Bilirubin (units unknown) (unknown) (unknown) (no date) (unknown) (unknown) Urine Color Yellow (units unknown) (unknown) (unknown) (no date) (unknown) (unknown) Urine Color (units unknown) (unknown) (unknown) (no date) (unknown) (unknown) Urine Glucose (UA) Negative (units unknown) (unknown) (unknown) (no date) (unknown) (unknown) Urine Glucose (UA) (units unknown) (unknown) (unknown) (no date) (unknown) (unknown) Urine Ketones Negative (units unknown) (unknown) (unknown) (no date) (unknown) (unknown) Urine Ketones (units unknown) (unknown) (unknown) (no date) (unknown) (unknown) Urine Nitrate Negative (units unknown) (unknown) (unknown) (no date) (unknown) (unknown) Urine Nitrate (units unknown) (unknown) (unknown) (no date) (unknown) (unknown) Urine Occult Blood Negative (units unknown) (unknown) (unknown) (no date) (unknown) (unknown) Urine Occult Blood (units unknown) (unknown) (unknown) (no date) (unknown) (unknown) Urine Protein Negative (units unknown) (unknown) (unknown) (no date) (unknown) (unknown) Urine Protein (units unknown) (unknown) (unknown) (no date) (unknown) (unknown) Urine RBC None seen (units unknown) (unknown) (unknown) (no date) (unknown) (unknown) Urine RBC (units unknown) (unknown) (unknown) (no date) (unknown) (unknown) Urine Urobilinogen 0.2 (units unknown) (unknown) (unknown) (no date) (unknown) (unknown) Urine Urobilinogen (units unknown) (unknown) (unknown) (no date) (unknown) (unknown) Urine WBC None seen (units unknown) (unknown) (unknown) (no date) (unknown) (unknown) Urine WBC (units unknown) (unknown) (unknown) (no date) (unknown) (unknown) Urine pH 6.0 (units unknown) (unknown) (unknown) (no date) (unknown) (unknown) Urine pH (units unknown) (unknown) (unknown) (no date) (unknown) (unknown) VTE (units unknown) (unknown) (unknown) (no date) (unknown) (unknown) Vital Signs (units unknown) (unknown) (unknown) (no date) (unknown) (unknown) WBC 10.2 (units unknown) (unknown) (unknown) (no date) (unknown) (unknown) WBC 8.6 (units unknown) (unknown) (unknown) (no date) (unknown) (unknown) WBC (units unknown) (unknown) (unknown) (no date) (unknown) (unknown) [Embedded Image Not Available] (units unknown) (unknown) (unknown) (no date) (unknown) (unknown) alcohol intake: former (units unknown) (unknown) (unknown) (no date) (unknown) (unknown) fluid evidence on chest xray (units unknown) (unknown) (unknown) (no date) (unknown) (unknown) household members: spouse (units unknown) (unknown) (unknown) (no date) (unknown) (unknown) lives independently: Yes (units unknown) (unknown) (unknown) (no date) (unknown) (unknown) no indication to repeat echo for now (units unknown) (unknown) (unknown) (no date) (unknown) (unknown) plan of care with ED physician and bedside nurse. I have reviewed labs, chest (units unknown) (unknown) (unknown) (no date) (unknown) (unknown) xray. (units unknown) (unknown) Result panel 696 (unknown) (no date) (unknown) (unknown) (no value) (units unknown) (unknown) (unknown) (no date) (unknown) (unknown) (past 8 hours): (units unknown) (unknown) (unknown) (no date) (unknown) (unknown) ---acute COPD exacerbation (units unknown) (unknown) (unknown) (no date) (unknown) (unknown) ---acute on chronic CHFrEF (units unknown) (unknown) (unknown) (no date) (unknown) (unknown) -BMI 41, will affect illness healing (units unknown) (unknown) (unknown) (no date) (unknown) (unknown) -changed po prednisone to IV solumedrol due to persistent wheezes (units unknown) (unknown) (unknown) (no date) (unknown) (unknown) -continue eliquis, lisinopril, metoprolol (units unknown) (unknown) (unknown) (no date) (unknown) (unknown) -continue eliquis, metoprolol, and amiodarone (units unknown) (unknown) (unknown) (no date) (unknown) (unknown) -continue metoprolol and lisinopril (units unknown) (unknown) (unknown) (no date) (unknown) (unknown) -creatinine 1.29 on admission, near baseline (units unknown) (unknown) (unknown) (no date) (unknown) (unknown) -echo done just one month ago showing severe global hypokinesis and EF 25-30%, (units unknown) (unknown) (unknown) (no date) (unknown) (unknown) -for copd exacerbation will order steroids, azithromycin, and nebs (units unknown) (unknown) (unknown) (no date) (unknown) (unknown) -for now hold spironolactone (units unknown) (unknown) (unknown) (no date) (unknown) (unknown) -hold oral medications (units unknown) (unknown) (unknown) (no date) (unknown) (unknown) -ordered for IV lasix, s/p -1.5L and BP soft (units unknown) (unknown) (unknown) (no date) (unknown) (unknown) -ordered high dose insulin sliding scale (units unknown) (unknown) (unknown) (no date) (unknown) (unknown) -oxy PRN (units unknown) (unknown) (unknown) (no date) (unknown) (unknown) -patient has history of dietary nonadherence (units unknown) (unknown) (unknown) (no date) (unknown) (unknown) -patient says she starr s pinched nerves in her neck causing severe pain (units unknown) (unknown) (unknown) (no date) (unknown) (unknown) -start lantus as she is hyperglycemic likely secondary to steroids (units unknown) (unknown) (unknown) (no date) (unknown) (unknown) -symptoms are more consistent with acute CHF exacerbation with elevated BNP, (units unknown) (unknown) (unknown) (no date) (unknown) (unknown) -trend daily (units unknown) (unknown) (unknown) (no date) (unknown) (unknown) 09/06/22 09/06/22 09/06/22 (units unknown) (unknown) (unknown) (no date) (unknown) (unknown) 09/06/22 09/07/22 09/07/22 (units unknown) (unknown) (unknown) (no date) (unknown) (unknown) 09/07/22 04:51 (units unknown) (unknown) (unknown) (no date) (unknown) (unknown) 09/07/22 1709 (units unknown) (unknown) (unknown) (no date) (unknown) (unknown) 09/07/22 (units unknown) (unknown) (unknown) (no date) (unknown) (unknown) 04:00 09/07/22 (units unknown) (unknown) (unknown) (no date) (unknown) (unknown) 06:16 09/07/22 (units unknown) (unknown) (unknown) (no date) (unknown) (unknown) 07:13 (units unknown) (unknown) (unknown) (no date) (unknown) (unknown) 07:58 (units unknown) (unknown) (unknown) (no date) (unknown) (unknown) 1. Acute on chronic respiratory failure secondary to: (units unknown) (unknown) (unknown) (no date) (unknown) (unknown) 17:10 17:16 17:16 (units unknown) (unknown) (unknown) (no date) (unknown) (unknown) 17:16 17:16 18:35 (units unknown) (unknown) (unknown) (no date) (unknown) (unknown) [id number] (units unknown) (unknown) (unknown) (no date) (unknown) (unknown) 19:33 04:51 04:51 (units unknown) (unknown) (unknown) (no date) (unknown) (unknown) 2. CAD s/p stents s/ p ppm/aicd (units unknown) (unknown) (unknown) (no date) (unknown) (unknown) 3. Chronic atrial fibrillation (units unknown) (unknown) (unknown) (no date) (unknown) (unknown) 4. CKD stage 2 (units unknown) (unknown) (unknown) (no date) (unknown) (unknown) 5. Morbid obesity (units unknown) (unknown) (unknown) (no date) (unknown) (unknown) 6. Type 2 Diabetes (units unknown) (unknown) (unknown) (no date) (unknown) (unknown) 7. Neck pain (units unknown) (unknown) (unknown) (no date) (unknown) (unknown) ABD: soft, nontender , nondistended, no organomegaly, normal bowel sounds (units unknown) (unknown) (unknown) (no date) (unknown) (unknown) ABG Base Excess 6.0 H (units unknown) (unknown) (unknown) (no date) (unknown) (unknown) ABG Base Excess (units unknown) (unknown) (unknown) (no date) (unknown) (unknown) ABG HCO3 31 H (units unknown) (unknown) (unknown) (no date) (unknown) (unknown) ABG HCO3 (units unknown) (unknown) (unknown) (no date) (unknown) (unknown) ABG O2 Saturation 94 L (units unknown) (unknown) (unknown) (no date) (unknown) (unknown) ABG O2 Saturation (units unknown) (unknown) (unknown) (no date) (unknown) (unknown) ABG Total CO2 32 H (units unknown) (unknown) (unknown) (no date) (unknown) (unknown) ABG Total CO2 (units unknown) (unknown) (unknown) (no date) (unknown) (unknown) ABG pCO2 46.9 H (units unknown) (unknown) (unknown) (no date) (unknown) (unknown) ABG pCO2 (units unknown) (unknown) (unknown) (no date) (unknown) (unknown) ABG pH 7.42 (units unknown) (unknown) (unknown) (no date) (unknown) (unknown) ABG pH (units unknown) (unknown) (unknown) (no date) (unknown) (unknown) ABG pO2 70 L (units unknown) (unknown) (unknown) (no date) (unknown) (unknown) ABG pO2 (units unknown) (unknown) (unknown) (no date) (unknown) (unknown) ALT 19 (units unknown) (unknown) (unknown) (no date) (unknown) (unknown) ALT (units unknown) (unknown) (unknown) (no date) (unknown) (unknown) APTT 35 (units unknown) (unknown) (unknown) (no date) (unknown) (unknown) APTT (units unknown) (unknown) (unknown) (no date) (unknown) (unknown) AST 20 (units unknown) (unknown) (unknown) (no date) (unknown) (unknown) AST (units unknown) (unknown) (unknown) (no date) (unknown) (unknown) Adenovirus (PCR) Not detected (units unknown) (unknown) (unknown) (no date) (unknown) (unknown) Adenovirus (PCR) (units unknown) (unknown) (unknown) (no date) (unknown) (unknown) Age/Sex: 57 / F (units unknown) (unknown) (unknown) (no date) (unknown) (unknown) Albumin 3.8 (units unknown) (unknown) (unknown) (no date) (unknown) (unknown) Albumin (units unknown) (unknown) (unknown) (no date) (unknown) (unknown) Albumin/Globulin Ratio 1.3 (units unknown) (unknown) (unknown) (no date) (unknown) (unknown) Albumin/Globulin Ratio (units unknown) (unknown) (unknown) (no date) (unknown) (unknown) Alkaline Phosphatase 81 (units unknown) (unknown) (unknown) (no date) (unknown) (unknown) Alkaline Phosphatase (units unknown) (unknown) (unknown) (no date) (unknown) (unknown) Assessment + Plan narrative: (units unknown) (unknown) (unknown) (no date) (unknown) (unknown) Assessment + Plan (units unknown) (unknown) (unknown) (no date) (unknown) (unknown) B. pertussis DNA (PCR) Not detected (units unknown) (unknown) (unknown) (no date) (unknown) (unknown) B. pertussis DNA (PCR) (units unknown) (unknown) (unknown) (no date) (unknown) (unknown) B.parapertussis DNA PCR Not detected (units unknown) (unknown) (unknown) (no date) (unknown) (unknown) B.parapertussis DNA PCR (units unknown) (unknown) (unknown) (no date) (unknown) (unknown) BUN 26 H (units unknown) (unknown) (unknown) (no date) (unknown) (unknown) BUN 28 H (units unknown) (unknown) (unknown) (no date) (unknown) (unknown) BUN (units unknown) (unknown) (unknown) (no date) (unknown) (unknown) BUN/Creatinine Ratio 20.2 (units unknown) (unknown) (unknown) (no date) (unknown) (unknown) BUN/Creatinine Ratio 22.6 H (units unknown) (unknown) (unknown) (no date) (unknown) (unknown) BUN/Creatinine Ratio (units unknown) (unknown) (unknown) (no date) (unknown) (unknown) Baso # (Auto) 0 (units unknown) (unknown) (unknown) (no date) (unknown) (unknown) Baso # (Auto) 100 (units unknown) (unknown) (unknown) (no date) (unknown) (unknown) Baso # (Auto) (units unknown) (unknown) (unknown) (no date) (unknown) (unknown) Baso % (Auto) 0.3 (units unknown) (unknown) (unknown) (no date) (unknown) (unknown) Baso % (Auto) 1.0 (units unknown) (unknown) (unknown) (no date) (unknown) (unknown) Baso % (Auto) (units unknown) (unknown) (unknown) (no date) (unknown) (unknown) Blood Pressure 111/5 7 L 119/61 (units unknown) (unknown) (unknown) (no date) (unknown) (unknown) Blood Pressure 112/74 (units unknown) (unknown) (unknown) (no date) (unknown) (unknown) CK-MB (CK-2) Rel Index TNP (units unknown) (unknown) (unknown) (no date) (unknown) (unknown) CK-MB (CK-2) Rel Index (units unknown) (unknown) (unknown) (no date) (unknown) (unknown) CK-MB (CK-2) TNP (units unknown) (unknown) (unknown) (no date) (unknown) (unknown) CK-MB (CK-2) (units unknown) (unknown) (unknown) (no date) (unknown) (unknown) CODE: Full (units unknown) (unknown) (unknown) (no date) (unknown) (unknown) COPD (chronic obstructive pulmonary disease) (units unknown) (unknown) (unknown) (no date) (unknown) (unknown) CV: irregular, no murmurs (units unknown) (unknown) (unknown) (no date) (unknown) (unknown) Calcium 8.7 (units unknown) (unknown) (unknown) (no date) (unknown) (unknown) Calcium 9.0 (units unknown) (unknown) (unknown) (no date) (unknown) (unknown) Calcium (units unknown) (unknown) (unknown) (no date) (unknown) (unknown) Carbon Dioxide 28 (units unknown) (unknown) (unknown) (no date) (unknown) (unknown) Carbon Dioxide 35 H (units unknown) (unknown) (unknown) (no date) (unknown) (unknown) Carbon Dioxide (units unknown) (unknown) (unknown) (no date) (unknown) (unknown) Chlamy pneumoniae PC R Not detected (units unknown) (unknown) (unknown) (no date) (unknown) (unknown) Chlamy pneumoniae PCR (units unknown) (unknown) (unknown) (no date) (unknown) (unknown) Chloride 100 (units unknown) (unknown) (unknown) (no date) (unknown) (unknown) Chloride 98 (units unknown) (unknown) (unknown) (no date) (unknown) (unknown) Chloride (units unknown) (unknown) (unknown) (no date) (unknown) (unknown) Coronavirus 229E (PCR) Not detected (units unknown) (unknown) (unknown) (no date) (unknown) (unknown) Coronavirus 229E (PCR) (units unknown) (unknown) (unknown) (no date) (unknown) (unknown) Coronavirus HKU1 (PCR) Not detected (units unknown) (unknown) (unknown) (no date) (unknown) (unknown) Coronavirus HKU1 (PCR) (units unknown) (unknown) (unknown) (no date) (unknown) (unknown) Coronavirus NL63 (PCR) Not detected (units unknown) (unknown) (unknown) (no date) (unknown) (unknown) Coronavirus NL63 (PCR) (units unknown) (unknown) (unknown) (no date) (unknown) (unknown) Coronavirus OC43 (PCR) Not detected (units unknown) (unknown) (unknown) (no date) (unknown) (unknown) Coronavirus OC43 (PCR) (units unknown) (unknown) (unknown) (no date) (unknown) (unknown) Creatinine 1.24 H (units unknown) (unknown) (unknown) (no date) (unknown) (unknown) Creatinine 1.29 H (units unknown) (unknown) (unknown) (no date) (unknown) (unknown) Creatinine (units unknown) (unknown) (unknown) (no date) (unknown) (unknown) : 1965 Acct:[id number] (units unknown) (unknown) (unknown) (no date) (unknown) (unknown) Date of Service: 09/06/22 (units unknown) (unknown) (unknown) (no date) (unknown) (unknown) Deep Vein Thrombosis/Pulmonary Embolism Present on Admission: No (units unknown) (unknown) (unknown) (no date) (unknown) (unknown) Dispo: Home in 2-3 days pending improvement in oxygenation. (units unknown) (unknown) (unknown) (no date) (unknown) (unknown) EXT: warm and well perfused with no edema (units unknown) (unknown) (unknown) (no date) (unknown) (unknown) Entero/Rhino (PCR) Not detected (units unknown) (unknown) (unknown) (no date) (unknown) (unknown) Entero/Rhino (PCR) (units unknown) (unknown) (unknown) (no date) (unknown) (unknown) Eos # (Auto) 0 (units unknown) (unknown) (unknown) (no date) (unknown) (unknown) Eos # (Auto) 100 (units unknown) (unknown) (unknown) (no date) (unknown) (unknown) Eos # (Auto) (units unknown) (unknown) (unknown) (no date) (unknown) (unknown) Eos % (Auto) 0.0 L (units unknown) (unknown) (unknown) (no date) (unknown) (unknown) Eos % (Auto) 1.1 L (units unknown) (unknown) (unknown) (no date) (unknown) (unknown) Eos % (Auto) (units unknown) (unknown) (unknown) (no date) (unknown) (unknown) Estimated GFR 48 L (units unknown) (unknown) (unknown) (no date) (unknown) (unknown) Estimated GFR 50 L (units unknown) (unknown) (unknown) (no date) (unknown) (unknown) Estimated GFR (units unknown) (unknown) (unknown) (no date) (unknown) (unknown) Exam Narrative: (units unknown) (unknown) (unknown) (no date) (unknown) (unknown) Exam (units unknown) (unknown) (unknown) (no date) (unknown) (unknown) FiO2 32 (units unknown) (unknown) (unknown) (no date) (unknown) (unknown) FiO2 (units unknown) (unknown) (unknown) (no date) (unknown) (unknown) Fraction of Inspired Oxygen 32 (units unknown) (unknown) (unknown) (no date) (unknown) (unknown) GEN: in mild resp distress (units unknown) (unknown) (unknown) (no date) (unknown) (unknown) Globulin 2.9 (units unknown) (unknown) (unknown) (no date) (unknown) (unknown) Globulin (units unknown) (unknown) (unknown) (no date) (unknown) (unknown) Glucose 284 H D (units unknown) (unknown) (unknown) (no date) (unknown) (unknown) Glucose 89 (units unknown) (unknown) (unknown) (no date) (unknown) (unknown) Glucose (units unknown) (unknown) (unknown) (no date) (unknown) (unknown) HEENT: moist mucous membranes, PERRL (units unknown) (unknown) (unknown) (no date) (unknown) (unknown) Hct 42.1 (units unknown) (unknown) (unknown) (no date) (unknown) (unknown) Hct 42.8 (units unknown) (unknown) (unknown) (no date) (unknown) (unknown) Hct (units unknown) (unknown) (unknown) (no date) (unknown) (unknown) Hgb 14.5 (units unknown) (unknown) (unknown) (no date) (unknown) (unknown) Hgb (units unknown) (unknown) (unknown) (no date) (unknown) (unknown) Human Metapneumovir PCR Not detected (units unknown) (unknown) (unknown) (no date) (unknown) (unknown) Human Metapneumovir PCR (units unknown) (unknown) (unknown) (no date) (unknown) (unknown) INR 1.3 (units unknown) (unknown) (unknown) (no date) (unknown) (unknown) INR (units unknown) (unknown) (unknown) (no date) (unknown) (unknown) Influenza Type A (PCR) Not detected (units unknown) (unknown) (unknown) (no date) (unknown) (unknown) Influenza Type A (PCR) (units unknown) (unknown) (unknown) (no date) (unknown) (unknown) Influenza Type B (PCR) Not detected (units unknown) (unknown) (unknown) (no date) (unknown) (unknown) Influenza Type B (PCR) (units unknown) (unknown) (unknown) (no date) (unknown) (unknown) Interval history: (units unknown) (unknown) (unknown) (no date) (unknown) (unknown) [address] [address] (units unknown) (unknown) (unknown) (no date) (unknown) (unknown) Laboratory Results - last 24 hr (units unknown) (unknown) (unknown) (no date) (unknown) (unknown) Labs (units unknown) (unknown) (unknown) (no date) (unknown) (unknown) Labs: (units unknown) (unknown) (unknown) (no date) (unknown) (unknown) Lactate 1.0 (units unknown) (unknown) (unknown) (no date) (unknown) (unknown) Lactate (units unknown) (unknown) (unknown) (no date) (unknown) (unknown) Lipase 80 (units unknown) (unknown) (unknown) (no date) (unknown) (unknown) Lipase (units unknown) (unknown) (unknown) (no date) (unknown) (unknown) Lymph # (Auto) 2700 (units unknown) (unknown) (unknown) (no date) (unknown) (unknown) Lymph # (Auto) 500 L (units unknown) (unknown) (unknown) (no date) (unknown) (unknown) Lymph # (Auto) (units unknown) (unknown) (unknown) (no date) (unknown) (unknown) Lymph % (Auto) 26.3 (units unknown) (unknown) (unknown) (no date) (unknown) (unknown) Lymph % (Auto) 6.3 L D (units unknown) (unknown) (unknown) (no date) (unknown) (unknown) Lymph % (Auto) (units unknown) (unknown) (unknown) (no date) (unknown) (unknown) M. pneumoniae (PCR) Not detected (units unknown) (unknown) (unknown) (no date) (unknown) (unknown) M. pneumoniae (PCR) (units unknown) (unknown) (unknown) (no date) (unknown) (unknown) MCH 31.9 (units unknown) (unknown) (unknown) (no date) (unknown) (unknown) MCH 32.5 (units unknown) (unknown) (unknown) (no date) (unknown) (unknown) MCH (units unknown) (unknown) (unknown) (no date) (unknown) (unknown) MCHC 33.8 (units unknown) (unknown) (unknown) (no date) (unknown) (unknown) MCHC 34.6 (units unknown) (unknown) (unknown) (no date) (unknown) (unknown) MCHC (units unknown) (unknown) (unknown) (no date) (unknown) (unknown) MCV 93.9 (units unknown) (unknown) (unknown) (no date) (unknown) (unknown) MCV 94.3 (units unknown) (unknown) (unknown) (no date) (unknown) (unknown) MCV (units unknown) (unknown) (unknown) (no date) (unknown) (unknown) Magnesium 1.8 (units unknown) (unknown) (unknown) (no date) (unknown) (unknown) Magnesium 1.9 (units unknown) (unknown) (unknown) (no date) (unknown) (unknown) Magnesium (units unknown) (unknown) (unknown) (no date) (unknown) (unknown) Medical History (units unknown) (unknown) (unknown) (no date) (unknown) (unknown) [place] # (Auto) 100 (units unknown) (unknown) (unknown) (no date) (unknown) (unknown) [place] # (Auto) 1000 H (units unknown) (unknown) (unknown) (no date) (unknown) (unknown) [place] # (Auto) (units unknown) (unknown) (unknown) (no date) (unknown) (unknown) [place] % (Auto) 1.4 L (units unknown) (unknown) (unknown) (no date) (unknown) (unknown) [place] % (Auto) 9.6 (units unknown) (unknown) (unknown) (no date) (unknown) (unknown) [place] % (Auto) (units unknown) (unknown) (unknown) (no date) (unknown) (unknown) NECK: trachea midline, no JVD (units unknown) (unknown) (unknown) (no date) (unknown) (unknown) NEURO: awake, alert, oriented, no focal deficits (units unknown) (unknown) (unknown) (no date) (unknown) (unknown) NT-Pro-B Natriuret Pep 1250 H (units unknown) (unknown) (unknown) (no date) (unknown) (unknown) NT-Pro-B Natriuret Pep (units unknown) (unknown) (unknown) (no date) (unknown) (unknown) Narrative (units unknown) (unknown) (unknown) (no date) (unknown) (unknown) Neut # (Auto) 6300 (units unknown) (unknown) (unknown) (no date) (unknown) (unknown) Neut # (Auto) 7900 H (units unknown) (unknown) (unknown) (no date) (unknown) (unknown) Neut # (Auto) (units unknown) (unknown) (unknown) (no date) (unknown) (unknown) Neut % (Auto) 62.0 (units unknown) (unknown) (unknown) (no date) (unknown) (unknown) Neut % (Auto) 92.0 H D (units unknown) (unknown) (unknown) (no date) (unknown) (unknown) Neut % (Auto) (units unknown) (unknown) (unknown) (no date) (unknown) (unknown) Objective (units unknown) (unknown) (unknown) (no date) (unknown) (unknown) Oxygen Delivery Method Oximask (units unknown) (unknown) (unknown) (no date) (unknown) (unknown) Oxygen Delivery Method (units unknown) (unknown) (unknown) (no date) (unknown) (unknown) Oxygen Flow Rate 3 3 (units unknown) (unknown) (unknown) (no date) (unknown) (unknown) Oxygen Flow Rate 3 (units unknown) (unknown) (unknown) (no date) (unknown) (unknown) PFSH (units unknown) (unknown) (unknown) (no date) (unknown) (unknown) PT 15.5 H (units unknown) (unknown) (unknown) (no date) (unknown) (unknown) PT (units unknown) (unknown) (unknown) (no date) (unknown) (unknown) PULM: diffuse wheezes (units unknown) (unknown) (unknown) (no date) (unknown) (unknown) Parainfluenza 1 (PCR ) Not detected (units unknown) (unknown) (unknown) (no date) (unknown) (unknown) Parainfluenza 1 (PCR) (units unknown) (unknown) (unknown) (no date) (unknown) (unknown) Parainfluenza 2 (PCR ) Not detected (units unknown) (unknown) (unknown) (no date) (unknown) (unknown) Parainfluenza 2 (PCR) (units unknown) (unknown) (unknown) (no date) (unknown) (unknown) Parainfluenza 3 (PCR ) Not detected (units unknown) (unknown) (unknown) (no date) (unknown) (unknown) Parainfluenza 3 (PCR) (units unknown) (unknown) (unknown) (no date) (unknown) (unknown) Parainfluenza 4 (PCR ) Not detected (units unknown) (unknown) (unknown) (no date) (unknown) (unknown) Parainfluenza 4 (PCR) (units unknown) (unknown) (unknown) (no date) (unknown) (unknown) Patient says she is having alot of neck pain. Lungs still feel 'very tight and (units unknown) (unknown) (unknown) (no date) (unknown) (unknown) Patient: Ester Benavides MR#: [id number] (units unknown) (unknown) (unknown) (no date) (unknown) (unknown) Plt Count 219 (units unknown) (unknown) (unknown) (no date) (unknown) (unknown) Plt Count 232 (units unknown) (unknown) (unknown) (no date) (unknown) (unknown) Plt Count (units unknown) (unknown) (unknown) (no date) (unknown) (unknown) Potassium 3.4 (units unknown) (unknown) (unknown) (no date) (unknown) (unknown) Potassium 3.6 (units unknown) (unknown) (unknown) (no date) (unknown) (unknown) Potassium (units unknown) (unknown) (unknown) (no date) (unknown) (unknown) Procalcitonin 0.06 (units unknown) (unknown) (unknown) (no date) (unknown) (unknown) Procalcitonin (units unknown) (unknown) (unknown) (no date) (unknown) (unknown) Progress Note (units unknown) (unknown) (unknown) (no date) (unknown) (unknown) Provider: Jerald Sanches D.O. (units unknown) (unknown) (unknown) (no date) (unknown) (unknown) Proxy: jon Chacon (units unknown) (unknown) (unknown) (no date) (unknown) (unknown) Pulse Oximetry 93 (units unknown) (unknown) (unknown) (no date) (unknown) (unknown) Pulse Oximetry 94 93 (units unknown) (unknown) (unknown) (no date) (unknown) (unknown) Pulse Rate 52 L 78 (units unknown) (unknown) (unknown) (no date) (unknown) (unknown) Pulse Rate 80 (units unknown) (unknown) (unknown) (no date) (unknown) (unknown) Quality (units unknown) (unknown) (unknown) (no date) (unknown) (unknown) RBC 4.48 (units unknown) (unknown) (unknown) (no date) (unknown) (unknown) RBC 4.54 (units unknown) (unknown) (unknown) (no date) (unknown) (unknown) RBC (units unknown) (unknown) (unknown) (no date) (unknown) (unknown) RDW 14.5 (units unknown) (unknown) (unknown) (no date) (unknown) (unknown) RDW 14.8 (units unknown) (unknown) (unknown) (no date) (unknown) (unknown) RDW (units unknown) (unknown) (unknown) (no date) (unknown) (unknown) RSV (PCR) Not detected (units unknown) (unknown) (unknown) (no date) (unknown) (unknown) RSV (PCR) (units unknown) (unknown) (unknown) (no date) (unknown) (unknown) Respiratory Rate 19 (units unknown) (unknown) (unknown) (no date) (unknown) (unknown) Respiratory Rate 24 (units unknown) (unknown) (unknown) (no date) (unknown) (unknown) SARS-CoV-2 (PCR) Not detected (units unknown) (unknown) (unknown) (no date) (unknown) (unknown) SARS-CoV-2 (PCR) (units unknown) (unknown) (unknown) (no date) (unknown) (unknown) SaO2/FiO2 Ratio 290 (units unknown) (unknown) (unknown) (no date) (unknown) (unknown) Signed By:<Electronically signed by Jerald Sanches D.O.> (units unknown) (unknown) (unknown) (no date) (unknown) (unknown) Smoking Status: Current every day smoker (units unknown) (unknown) (unknown) (no date) (unknown) (unknown) Social History (units unknown) (unknown) (unknown) (no date) (unknown) (unknown) Sodium 136 L (units unknown) (unknown) (unknown) (no date) (unknown) (unknown) Sodium 140 (units unknown) (unknown) (unknown) (no date) (unknown) (unknown) Sodium (units unknown) (unknown) (unknown) (no date) (unknown) (unknown) Subjective (units unknown) (unknown) (unknown) (no date) (unknown) (unknown) Temperature 96.8 F L (units unknown) (unknown) (unknown) (no date) (unknown) (unknown) Temperature 98 F (units unknown) (unknown) (unknown) (no date) (unknown) (unknown) Total Bilirubin 0.5 (units unknown) (unknown) (unknown) (no date) (unknown) (unknown) Total Bilirubin (units unknown) (unknown) (unknown) (no date) (unknown) (unknown) Total Creatine Kinas e < 20 L (units unknown) (unknown) (unknown) (no date) (unknown) (unknown) Total Creatine Kinase (units unknown) (unknown) (unknown) (no date) (unknown) (unknown) Total Protein 6.7 (units unknown) (unknown) (unknown) (no date) (unknown) (unknown) Total Protein (units unknown) (unknown) (unknown) (no date) (unknown) (unknown) Troponin I 0.013 (units unknown) (unknown) (unknown) (no date) (unknown) (unknown) Troponin I (units unknown) (unknown) (unknown) (no date) (unknown) (unknown) Ur Culture Indicated ? Cult not indicated (units unknown) (unknown) (unknown) (no date) (unknown) (unknown) Ur Culture Indicated? (units unknown) (unknown) (unknown) (no date) (unknown) (unknown) Ur Leukocyte [place] e Negative (units unknown) (unknown) (unknown) (no date) (unknown) (unknown) Ur Leukocyte Esterase (units unknown) (unknown) (unknown) (no date) (unknown) (unknown) Ur Specific [place] 1.010 (units unknown) (unknown) (unknown) (no date) (unknown) (unknown) Ur Specific [place] (units unknown) (unknown) (unknown) (no date) (unknown) (unknown) Ur Squamous Epith Cells 0-1 /hpf (units unknown) (unknown) (unknown) (no date) (unknown) (unknown) Ur Squamous Epith Cells (units unknown) (unknown) (unknown) (no date) (unknown) (unknown) Urine Appearance Clear (units unknown) (unknown) (unknown) (no date) (unknown) (unknown) Urine Appearance (units unknown) (unknown) (unknown) (no date) (unknown) (unknown) Urine Bacteria Occasional (0-1) (units unknown) (unknown) (unknown) (no date) (unknown) (unknown) Urine Bacteria (units unknown) (unknown) (unknown) (no date) (unknown) (unknown) Urine Bilirubin Negative (units unknown) (unknown) (unknown) (no date) (unknown) (unknown) Urine Bilirubin (units unknown) (unknown) (unknown) (no date) (unknown) (unknown) Urine Color Yellow (units unknown) (unknown) (unknown) (no date) (unknown) (unknown) Urine Color (units unknown) (unknown) (unknown) (no date) (unknown) (unknown) Urine Glucose (UA) Negative (units unknown) (unknown) (unknown) (no date) (unknown) (unknown) Urine Glucose (UA) (units unknown) (unknown) (unknown) (no date) (unknown) (unknown) Urine Ketones Negative (units unknown) (unknown) (unknown) (no date) (unknown) (unknown) Urine Ketones (units unknown) (unknown) (unknown) (no date) (unknown) (unknown) Urine Nitrate Negative (units unknown) (unknown) (unknown) (no date) (unknown) (unknown) Urine Nitrate (units unknown) (unknown) (unknown) (no date) (unknown) (unknown) Urine Occult Blood Negative (units unknown) (unknown) (unknown) (no date) (unknown) (unknown) Urine Occult Blood (units unknown) (unknown) (unknown) (no date) (unknown) (unknown) Urine Protein Negative (units unknown) (unknown) (unknown) (no date) (unknown) (unknown) Urine Protein (units unknown) (unknown) (unknown) (no date) (unknown) (unknown) Urine RBC None seen (units unknown) (unknown) (unknown) (no date) (unknown) (unknown) Urine RBC (units unknown) (unknown) (unknown) (no date) (unknown) (unknown) Urine Urobilinogen 0.2 (units unknown) (unknown) (unknown) (no date) (unknown) (unknown) Urine Urobilinogen (units unknown) (unknown) (unknown) (no date) (unknown) (unknown) Urine WBC None seen (units unknown) (unknown) (unknown) (no date) (unknown) (unknown) Urine WBC (units unknown) (unknown) (unknown) (no date) (unknown) (unknown) Urine pH 6.0 (units unknown) (unknown) (unknown) (no date) (unknown) (unknown) Urine pH (units unknown) (unknown) (unknown) (no date) (unknown) (unknown) VTE (units unknown) (unknown) (unknown) (no date) (unknown) (unknown) Vital Signs (units unknown) (unknown) (unknown) (no date) (unknown) (unknown) WBC 10.2 (units unknown) (unknown) (unknown) (no date) (unknown) (unknown) WBC 8.6 (units unknown) (unknown) (unknown) (no date) (unknown) (unknown) WBC (units unknown) (unknown) (unknown) (no date) (unknown) (unknown) [Embedded Image Not Available] (units unknown) (unknown) (unknown) (no date) (unknown) (unknown) alcohol intake: former (units unknown) (unknown) (unknown) (no date) (unknown) (unknown) fluid evidence on chest xray (units unknown) (unknown) (unknown) (no date) (unknown) (unknown) household members: spouse (units unknown) (unknown) (unknown) (no date) (unknown) (unknown) lives independently: Yes (units unknown) (unknown) (unknown) (no date) (unknown) (unknown) repeat limited on 09/07 unchanged (units unknown) (unknown) (unknown) (no date) (unknown) (unknown) wheezy'. BP soft today. (units unknown) (unknown) Result panel 697 (unknown) (no date) (unknown) (unknown) (no value) (units unknown) (unknown) (unknown) (no date) (unknown) (unknown) (past 8 hours): (units unknown) (unknown) (unknown) (no date) (unknown) (unknown) ---acute COPD exacerbation (units unknown) (unknown) (unknown) (no date) (unknown) (unknown) ---acute on chronic CHFrEF (units unknown) (unknown) (unknown) (no date) (unknown) (unknown) -BMI 41, will affect illness healing (units unknown) (unknown) (unknown) (no date) (unknown) (unknown) -changed po prednisone to IV solumedrol due to persistent wheezes (units unknown) (unknown) (unknown) (no date) (unknown) (unknown) -continue eliquis, lisinopril, metoprolol (units unknown) (unknown) (unknown) (no date) (unknown) (unknown) -continue eliquis, metoprolol, and amiodarone (units unknown) (unknown) (unknown) (no date) (unknown) (unknown) -continue metoprolol and lisinopril (units unknown) (unknown) (unknown) (no date) (unknown) (unknown) -creatinine 1.29 on admission, near baseline (units unknown) (unknown) (unknown) (no date) (unknown) (unknown) -echo done just one month ago showing severe global hypokinesis and EF 25-30%, (units unknown) (unknown) (unknown) (no date) (unknown) (unknown) -for copd exacerbation will order steroids, azithromycin, and nebs (units unknown) (unknown) (unknown) (no date) (unknown) (unknown) -for now hold spironolactone (units unknown) (unknown) (unknown) (no date) (unknown) (unknown) -hold oral medications (units unknown) (unknown) (unknown) (no date) (unknown) (unknown) -now back on baselin e 3L O2 and wheezes improving (units unknown) (unknown) (unknown) (no date) (unknown) (unknown) -ordered for IV lasix, s/p -2.5L since admission (units unknown) (unknown) (unknown) (no date) (unknown) (unknown) -ordered high dose insulin sliding scale (units unknown) (unknown) (unknown) (no date) (unknown) (unknown) -oxy PRN (units unknown) (unknown) (unknown) (no date) (unknown) (unknown) -patient has history of dietary nonadherence (units unknown) (unknown) (unknown) (no date) (unknown) (unknown) -patient says she starr s pinched nerves in her neck causing severe pain (units unknown) (unknown) (unknown) (no date) (unknown) (unknown) -start lantus as she is hyperglycemic likely secondary to steroids (units unknown) (unknown) (unknown) (no date) (unknown) (unknown) -symptoms are more consistent with acute CHF exacerbation with elevated BNP, (units unknown) (unknown) (unknown) (no date) (unknown) (unknown) -trend daily (units unknown) (unknown) (unknown) (no date) (unknown) (unknown) 09/07/22 04:51 (units unknown) (unknown) (unknown) (no date) (unknown) (unknown) 09/08/22 1410 (units unknown) (unknown) (unknown) (no date) (unknown) (unknown) 09/08/22 (units unknown) (unknown) (unknown) (no date) (unknown) (unknown) 07:25 09/08/22 (units unknown) (unknown) (unknown) (no date) (unknown) (unknown) 08:00 09/08/22 (units unknown) (unknown) (unknown) (no date) (unknown) (unknown) 08:26 09/08/22 (units unknown) (unknown) (unknown) (no date) (unknown) (unknown) 08:26 (units unknown) (unknown) (unknown) (no date) (unknown) (unknown) 1. Acute on chronic respiratory failure now improving secondary to: (units unknown) (unknown) (unknown) (no date) (unknown) (unknown) 10:46 09/08/22 (units unknown) (unknown) (unknown) (no date) (unknown) (unknown) 11:09 (units unknown) (unknown) (unknown) (no date) (unknown) (unknown) 12:00 (units unknown) (unknown) (unknown) (no date) (unknown) (unknown) [id number] (units unknown) (unknown) (unknown) (no date) (unknown) (unknown) 2. CAD s/p stents s/ p ppm/aicd (units unknown) (unknown) (unknown) (no date) (unknown) (unknown) 3. Chronic atrial fibrillation (units unknown) (unknown) (unknown) (no date) (unknown) (unknown) 4. CKD stage 2 (units unknown) (unknown) (unknown) (no date) (unknown) (unknown) 5. Morbid obesity (units unknown) (unknown) (unknown) (no date) (unknown) (unknown) 6. Type 2 Diabetes (units unknown) (unknown) (unknown) (no date) (unknown) (unknown) 7. Neck pain (units unknown) (unknown) (unknown) (no date) (unknown) (unknown) ABD: soft, nontender , nondistended, no organomegaly, normal bowel sounds (units unknown) (unknown) (unknown) (no date) (unknown) (unknown) Age/Sex: 57 / F (units unknown) (unknown) (unknown) (no date) (unknown) (unknown) Assessment + Plan narrative: (units unknown) (unknown) (unknown) (no date) (unknown) (unknown) Assessment + Plan (units unknown) (unknown) (unknown) (no date) (unknown) (unknown) Blood Pressure 125/5 4 L (units unknown) (unknown) (unknown) (no date) (unknown) (unknown) Blood Pressure 126/5 8 L (units unknown) (unknown) (unknown) (no date) (unknown) (unknown) Blood Pressure 128/5 4 L (units unknown) (unknown) (unknown) (no date) (unknown) (unknown) CODE: Full (units unknown) (unknown) (unknown) (no date) (unknown) (unknown) COPD (chronic obstructive pulmonary disease) (units unknown) (unknown) (unknown) (no date) (unknown) (unknown) CV: irregular, no murmurs (units unknown) (unknown) (unknown) (no date) (unknown) (unknown) : 1965 Acct:[id number] (units unknown) (unknown) (unknown) (no date) (unknown) (unknown) Date of Service: 09/06/22 (units unknown) (unknown) (unknown) (no date) (unknown) (unknown) Deep Vein Thrombosis/Pulmonary Embolism Present on Admission: No (units unknown) (unknown) (unknown) (no date) (unknown) (unknown) Dispo: Home in 1-2 days pending improvement in oxygenation. (units unknown) (unknown) (unknown) (no date) (unknown) (unknown) EXT: warm and well perfused with no edema (units unknown) (unknown) (unknown) (no date) (unknown) (unknown) Exam Narrative: (units unknown) (unknown) (unknown) (no date) (unknown) (unknown) Exam (units unknown) (unknown) (unknown) (no date) (unknown) (unknown) Fraction of Inspired Oxygen 32 (units unknown) (unknown) (unknown) (no date) (unknown) (unknown) Fraction of Inspired Oxygen (units unknown) (unknown) (unknown) (no date) (unknown) (unknown) GEN: NAD (units unknown) (unknown) (unknown) (no date) (unknown) (unknown) HEENT: moist mucous membranes, PERRL (units unknown) (unknown) (unknown) (no date) (unknown) (unknown) Interval history: (units unknown) (unknown) (unknown) (no date) (unknown) (unknown) [address] [address] (units unknown) (unknown) (unknown) (no date) (unknown) (unknown) Labs (units unknown) (unknown) (unknown) (no date) (unknown) (unknown) Medical History (units unknown) (unknown) (unknown) (no date) (unknown) (unknown) NECK: trachea midline, no JVD (units unknown) (unknown) (unknown) (no date) (unknown) (unknown) NEURO: awake, alert, oriented, no focal deficits (units unknown) (unknown) (unknown) (no date) (unknown) (unknown) Narrative (units unknown) (unknown) (unknown) (no date) (unknown) (unknown) Objective (units unknown) (unknown) (unknown) (no date) (unknown) (unknown) Oxygen Delivery Method Oximask Nasal Cannula (units unknown) (unknown) (unknown) (no date) (unknown) (unknown) Oxygen Delivery Method Oximask Oximask (units unknown) (unknown) (unknown) (no date) (unknown) (unknown) Oxygen Delivery Method Oximask (units unknown) (unknown) (unknown) (no date) (unknown) (unknown) Oxygen Delivery Method (units unknown) (unknown) (unknown) (no date) (unknown) (unknown) Oxygen Flow Rate 3 3 (units unknown) (unknown) (unknown) (no date) (unknown) (unknown) Oxygen Flow Rate 3 (units unknown) (unknown) (unknown) (no date) (unknown) (unknown) PFSH (units unknown) (unknown) (unknown) (no date) (unknown) (unknown) PULM: diffuse wheeze s have improved today (units unknown) (unknown) (unknown) (no date) (unknown) (unknown) Patient says her breathing is still poor. She doesn't feel very well. Now on her (units unknown) (unknown) (unknown) (no date) (unknown) (unknown) Patient: Ester Benavides MR#: [id number] (units unknown) (unknown) (unknown) (no date) (unknown) (unknown) Progress Note (units unknown) (unknown) (unknown) (no date) (unknown) (unknown) Provider: Jerald Sanches D.O. (units unknown) (unknown) (unknown) (no date) (unknown) (unknown) Proxy: Rajat Benavides, (units unknown) (unknown) (unknown) (no date) (unknown) (unknown) Pulse Oximetry 93 (units unknown) (unknown) (unknown) (no date) (unknown) (unknown) Pulse Oximetry 94 94 93 (units unknown) (unknown) (unknown) (no date) (unknown) (unknown) Pulse Oximetry 94 94 (units unknown) (unknown) (unknown) (no date) (unknown) (unknown) Pulse Rate 63 (units unknown) (unknown) (unknown) (no date) (unknown) (unknown) Pulse Rate 64 65 (units unknown) (unknown) (unknown) (no date) (unknown) (unknown) Pulse Rate 64 82 (units unknown) (unknown) (unknown) (no date) (unknown) (unknown) Quality (units unknown) (unknown) (unknown) (no date) (unknown) (unknown) Respiratory Rate 17 (units unknown) (unknown) (unknown) (no date) (unknown) (unknown) Respiratory Rate 18 20 (units unknown) (unknown) (unknown) (no date) (unknown) (unknown) SaO2/FiO2 Ratio 290 (units unknown) (unknown) (unknown) (no date) (unknown) (unknown) Signed By:<Electronically signed by Jerald Sanches D.O.> (units unknown) (unknown) (unknown) (no date) (unknown) (unknown) Smoking Status: Current every day smoker (units unknown) (unknown) (unknown) (no date) (unknown) (unknown) Social History (units unknown) (unknown) (unknown) (no date) (unknown) (unknown) Subjective (units unknown) (unknown) (unknown) (no date) (unknown) (unknown) Temperature 96.7 F L (units unknown) (unknown) (unknown) (no date) (unknown) (unknown) Temperature 96.8 F L (units unknown) (unknown) (unknown) (no date) (unknown) (unknown) Temperature (units unknown) (unknown) (unknown) (no date) (unknown) (unknown) VTE (units unknown) (unknown) (unknown) (no date) (unknown) (unknown) Vital Signs (units unknown) (unknown) (unknown) (no date) (unknown) (unknown) [Embedded Image Not Available] (units unknown) (unknown) (unknown) (no date) (unknown) (unknown) alcohol intake: former (units unknown) (unknown) (unknown) (no date) (unknown) (unknown) baseline 3L O2. (units unknown) (unknown) (unknown) (no date) (unknown) (unknown) fluid evidence on chest xray (units unknown) (unknown) (unknown) (no date) (unknown) (unknown) household members: spouse (units unknown) (unknown) (unknown) (no date) (unknown) (unknown) lives independently: Yes (units unknown) (unknown) (unknown) (no date) (unknown) (unknown) repeat limited on 09/07 unchanged (units unknown) (unknown) Result panel 698 (unknown) (no date) (unknown) (unknown) (no value) (units unknown) (unknown) (unknown) (no date) (unknown) (unknown) (*Appt on September With (units unknown) (unknown) (unknown) (no date) (unknown) (unknown) (past 8 hours): (units unknown) (unknown) (unknown) (no date) (unknown) (unknown) Discharges patien t from system. (units unknown) (unknown) (unknown) (no date) (unknown) (unknown) 0.013. BNP 1250. Procal 0.06. Chest xray reviewed by me and showed cardiomegaly (units unknown) (unknown) (unknown) (no date) (unknown) (unknown) 09/06/22 19:22 (units unknown) (unknown) (unknown) (no date) (unknown) (unknown) 09/06/22 21:02 (units unknown) (unknown) (unknown) (no date) (unknown) (unknown) 09/07/22 04:51 (units unknown) (unknown) (unknown) (no date) (unknown) (unknown) 09/08/22 13:13 (units unknown) (unknown) (unknown) (no date) (unknown) (unknown) 1 tab PO BEDTIME (units unknown) (unknown) (unknown) (no date) (unknown) (unknown) 1 tab PO DAILY (units unknown) (unknown) (unknown) (no date) (unknown) (unknown) 100 mg PO DAILY (units unknown) (unknown) (unknown) (no date) (unknown) (unknown) 140, k 3.4, creatinine 1.29. INR 1.3. ABG pH 7.42, pCO2 46.9. Lactate 1.0. Trop (units unknown) (unknown) (unknown) (no date) (unknown) (unknown) [address] (units unknown) (unknown) (unknown) (no date) (unknown) (unknown) 2 inh INHALATION Q4H PRN (Reason: Shortness Of Breath) (units unknown) (unknown) (unknown) (no date) (unknown) (unknown) 2 puff INHALATION QI D PRN (Reason: Shortness Of Breath) (units unknown) (unknown) (unknown) (no date) (unknown) (unknown) 25 mg PO BID (units unknown) (unknown) (unknown) (no date) (unknown) (unknown) 25 mg PO DAILY (units unknown) (unknown) (unknown) (no date) (unknown) (unknown) 25 mg PO Q6H PRN (Reason: Nausea) (units unknown) (unknown) (unknown) (no date) (unknown) (unknown) [phone]. ) (units unknown) (unknown) (unknown) (no date) (unknown) (unknown) 40 mg PO DAILY 3 Day s Qty: 6 0RF (units unknown) (unknown) (unknown) (no date) (unknown) (unknown) 5 mg PO BID (units unknown) (unknown) (unknown) (no date) (unknown) (unknown) 5 mg PO DAILY Qty: 3 0 3RF (units unknown) (unknown) (unknown) (no date) (unknown) (unknown) 5 mg PO DAILY (units unknown) (unknown) (unknown) (no date) (unknown) (unknown) 5 mg PO Q4HR PRN (Reason: pain) Qty: 20 0RF (units unknown) (unknown) (unknown) (no date) (unknown) (unknown) 500 mg PO TID PRN (Reason: Muscle Spasm) (units unknown) (unknown) (unknown) (no date) (unknown) (unknown) 80 mg PO DAILY (units unknown) (unknown) (unknown) (no date) (unknown) (unknown) 80s, respiratory rat e in 20s-30s, blood pressure 70-100s/40s-50s. Sats in the (units unknown) (unknown) (unknown) (no date) (unknown) (unknown) 90s on 3L. Labs reviewed by me and notable for WBC 10.2, hgb 14.5, plts 232. Na (units unknown) (unknown) (unknown) (no date) (unknown) (unknown) ?Ms. Benavides is a 57W with PMH COPD on 3L oxygen, smoker, CHFrEF, CAD s/p stents, (units unknown) (unknown) (unknown) (no date) (unknown) (unknown) Age/Sex: 57 / F (units unknown) (unknown) (unknown) (no date) (unknown) (unknown) COPD (chronic obstructive pulmonary disease) (units unknown) (unknown) (unknown) (no date) (unknown) (unknown) Chief complaint: SOB monday/ [place] (units unknown) (unknown) (unknown) (no date) (unknown) (unknown) Comment: (units unknown) (unknown) (unknown) (no date) (unknown) (unknown) Consult to Dietitian , Adult Routine (units unknown) (unknown) (unknown) (no date) (unknown) (unknown) Consult to Home Health Routine (units unknown) (unknown) (unknown) (no date) (unknown) (unknown) Consults: (units unknown) (unknown) (unknown) (no date) (unknown) (unknown) Continued (units unknown) (unknown) (unknown) (no date) (unknown) (unknown) : 1965 Acct:[id number] (units unknown) (unknown) (unknown) (no date) (unknown) (unknown) Date Patient Seen: 09/06/22 (units unknown) (unknown) (unknown) (no date) (unknown) (unknown) Date of Service: 09/06/22 (units unknown) (unknown) (unknown) (no date) (unknown) (unknown) Date of admission: (units unknown) (unknown) (unknown) (no date) (unknown) (unknown) Deep Vein Thrombosis/Pulmonary Embolism Present on Admission: No (units unknown) (unknown) (unknown) (no date) (unknown) (unknown) Discharge Data (units unknown) (unknown) (unknown) (no date) (unknown) (unknown) Discharge Date/Time: 09/09/22 11:00 (units unknown) (unknown) (unknown) (no date) (unknown) (unknown) Discharge Date: 09/09/22 (units unknown) (unknown) (unknown) (no date) (unknown) (unknown) Discharge Plan (units unknown) (unknown) (unknown) (no date) (unknown) (unknown) Discharge Providers (units unknown) (unknown) (unknown) (no date) (unknown) (unknown) Discharge Summary (units unknown) (unknown) (unknown) (no date) (unknown) (unknown) Discharge orders + Medications (units unknown) (unknown) (unknown) (no date) (unknown) (unknown) Discharge provider: (units unknown) (unknown) (unknown) (no date) (unknown) (unknown) Eliquis 5 mg tablet (units unknown) (unknown) (unknown) (no date) (unknown) (unknown) Exam (units unknown) (unknown) (unknown) (no date) (unknown) (unknown) Falls, DI for Encephalopathy (units unknown) (unknown) (unknown) (no date) (unknown) (unknown) Follow up/Referrals: (units unknown) (unknown) (unknown) (no date) (unknown) (unknown) Fraction of Inspired Oxygen 32 (units unknown) (unknown) (unknown) (no date) (unknown) (unknown) History of Present Illness (units unknown) (unknown) (unknown) (no date) (unknown) (unknown) INHALE 2 PUFFS BY MOUTH 4 TIMES DAILY NEEDED (units unknown) (unknown) (unknown) (no date) (unknown) (unknown) INHALE 2 PUFFS BY MOUTH EVERY 4 TO 6 HOURS NEEDED (units unknown) (unknown) (unknown) (no date) (unknown) (unknown) In the ED workup was done, vitals notable for afebrlie, heart rate in the 70s (units unknown) (unknown) (unknown) (no date) (unknown) (unknown) Instructions: DI for Heart Failure, DI for Pneumonia -- Adult, How to Prevent (units unknown) (unknown) (unknown) (no date) (unknown) (unknown) [address] [address] (units unknown) (unknown) (unknown) (no date) (unknown) (unknown) Rohini Ceron PA-C (units unknown) (unknown) (unknown) (no date) (unknown) (unknown) Labs (units unknown) (unknown) (unknown) (no date) (unknown) (unknown) Jerald Sanches DO (units unknown) (unknown) (unknown) (no date) (unknown) (unknown) Medical History (units unknown) (unknown) (unknown) (no date) (unknown) (unknown) Mucinex DM 30-600 mg Tablet Extended Release 12 Hr (units unknown) (unknown) (unknown) (no date) (unknown) (unknown) Narrative: (units unknown) (unknown) (unknown) (no date) (unknown) (unknown) New (units unknown) (unknown) (unknown) (no date) (unknown) (unknown) Objective (units unknown) (unknown) (unknown) (no date) (unknown) (unknown) Oxygen Delivery Method Nasal Cannula (units unknown) (unknown) (unknown) (no date) (unknown) (unknown) Oxygen Flow Rate 3 (units unknown) (unknown) (unknown) (no date) (unknown) (unknown) PFSH (units unknown) (unknown) (unknown) (no date) (unknown) (unknown) Patient Comments: (units unknown) (unknown) (unknown) (no date) (unknown) (unknown) Patient Disposition: Home Health Service (units unknown) (unknown) (unknown) (no date) (unknown) (unknown) Patient: Ester Benavides MR#: [id number] (units unknown) (unknown) (unknown) (no date) (unknown) (unknown) Prescriptions: (units unknown) (unknown) (unknown) (no date) (unknown) (unknown) Primary Care Provider: Rohini Ceron (units unknown) (unknown) (unknown) (no date) (unknown) (unknown) Primary care physician: (units unknown) (unknown) (unknown) (no date) (unknown) (unknown) ProAir RespiClick 90 mcg/actuation aerosol powdr breath activated (units unknown) (unknown) (unknown) (no date) (unknown) (unknown) Provider Discharge Comment: You were admitted to the hospital for worsening (units unknown) (unknown) (unknown) (no date) (unknown) (unknown) Provider (units unknown) (unknown) (unknown) (no date) (unknown) (unknown) Provider: Jerald Sanches D.O. (units unknown) (unknown) (unknown) (no date) (unknown) (unknown) Quality (units unknown) (unknown) (unknown) (no date) (unknown) (unknown) Reason For Exam: [facility] upon discharge (units unknown) (unknown) (unknown) (no date) (unknown) (unknown) Reason For Exam: weight loss >50# in a month (units unknown) (unknown) (unknown) (no date) (unknown) (unknown) SaO2/FiO2 Ratio 290 (units unknown) (unknown) (unknown) (no date) (unknown) (unknown) Signed By: (units unknown) (unknown) (unknown) (no date) (unknown) (unknown) Smoking Status: Current every day smoker (units unknown) (unknown) (unknown) (no date) (unknown) (unknown) Social History (units unknown) (unknown) (unknown) (no date) (unknown) (unknown) Stand Alone Forms: Congestive Heart Failure, Patient Portal/API, Stroke Signs (units unknown) (unknown) (unknown) (no date) (unknown) (unknown) Symptoms (units unknown) (unknown) (unknown) (no date) (unknown) (unknown) TAKE 1 TABLET BY MOUTH EVERY 6 HOURS (units unknown) (unknown) (unknown) (no date) (unknown) (unknown) TAKE 1 TABLET BY MOUTH ONCE DAILY (units unknown) (unknown) (unknown) (no date) (unknown) (unknown) TAKE 1 TABLET BY MOUTH THREE TIMES DAILY NEEDED FOR MUSCLE SPASM (units unknown) (unknown) (unknown) (no date) (unknown) (unknown) TAKE 1 TABLET BY MOUTH TWICE DAILY FOR BLOOD PRESSURE (units unknown) (unknown) (unknown) (no date) (unknown) (unknown) TAKE 1 TABLET BY MOUTH TWICE DAILY (units unknown) (unknown) (unknown) (no date) (unknown) (unknown) TAKE 1/2 (ONE-HALF) TABLET BY MOUTH ONCE DAILY (units unknown) (unknown) (unknown) (no date) (unknown) (unknown) Time Patient Seen: 20:00 (units unknown) (unknown) (unknown) (no date) (unknown) (unknown) VTE (units unknown) (unknown) (unknown) (no date) (unknown) (unknown) Visit Report/Discharge Packet (units unknown) (unknown) (unknown) (no date) (unknown) (unknown) Vital Signs (units unknown) (unknown) (unknown) (no date) (unknown) (unknown) Rohini Ceron PA-C [Primary Care Provider] - 2 Weeks (units unknown) (unknown) (unknown) (no date) (unknown) (unknown) [Embedded Image Not Available] (units unknown) (unknown) (unknown) (no date) (unknown) (unknown) adherence to CHF diet. She has been referred to hospice in the past by her PCP, (units unknown) (unknown) (unknown) (no date) (unknown) (unknown) albuterol sulfate [Ventolin HFA] 90 mcg/actuation HFA aerosol inhaler (units unknown) (unknown) (unknown) (no date) (unknown) (unknown) alcohol intake: former (units unknown) (unknown) (unknown) (no date) (unknown) (unknown) amiodarone 200 mg tablet (units unknown) (unknown) (unknown) (no date) (unknown) (unknown) and interstitial congestion. She was ordered for lasix and steroids and (units unknown) (unknown) (unknown) (no date) (unknown) (unknown) and lying flat which worsen her shortness of breath. She is using her oxygen (units unknown) (unknown) (unknown) (no date) (unknown) (unknown) and your breathing improved. You will now finish a few days of steroids at home. (units unknown) (unknown) (unknown) (no date) (unknown) (unknown) at 10:00am. Please check-in at 09:45am. (units unknown) (unknown) (unknown) (no date) (unknown) (unknown) breath. She has note d a chronic cough. It is not worse than her usual. She (units unknown) (unknown) (unknown) (no date) (unknown) (unknown) brings up clear phlegm. She has noted no chest pain. She thinks her weight has (units unknown) (unknown) (unknown) (no date) (unknown) (unknown) but has remained ful l code. (units unknown) (unknown) (unknown) (no date) (unknown) (unknown) furosemide 40 mg tablet (units unknown) (unknown) (unknown) (no date) (unknown) (unknown) glipizide [Glucotrol XL] 5 mg tablet extended release 24hr (units unknown) (unknown) (unknown) (no date) (unknown) (unknown) gone up, but she has no scale to measure this. She has difficulty with exertion (units unknown) (unknown) (unknown) (no date) (unknown) (unknown) hospital last month with a similar presentation and ordered for diuresis and for (units unknown) (unknown) (unknown) (no date) (unknown) (unknown) household members: spouse (units unknown) (unknown) (unknown) (no date) (unknown) (unknown) lisinopril 5 mg tablet (units unknown) (unknown) (unknown) (no date) (unknown) (unknown) lives independently: Yes (units unknown) (unknown) (unknown) (no date) (unknown) (unknown) methocarbamol 500 mg tablet (units unknown) (unknown) (unknown) (no date) (unknown) (unknown) metoprolol succinate 25 mg tablet extended release 24 hr (units unknown) (unknown) (unknown) (no date) (unknown) (unknown) more frequently. She is not urinating very much. She was admitted to the (units unknown) (unknown) (unknown) (no date) (unknown) (unknown) multivitamin Tablet (units unknown) (unknown) (unknown) (no date) (unknown) (unknown) nebulizers and admitte for further treatment. (units unknown) (unknown) (unknown) (no date) (unknown) (unknown) oxycodone 5 mg Tablet (units unknown) (unknown) (unknown) (no date) (unknown) (unknown) prednisone 20 mg tablet (units unknown) (unknown) (unknown) (no date) (unknown) (unknown) promethazine 25 mg tablet (units unknown) (unknown) (unknown) (no date) (unknown) (unknown) s/p ppm/aicd, Type 2 DM, afib who presents to the hospital with shortness of (units unknown) (unknown) (unknown) (no date) (unknown) (unknown) shortness of breath. We gave you high dose lasix to get water off and steroids (units unknown) (unknown) (unknown) (no date) (unknown) (unknown) spironolactone 25 mg tablet (units unknown) (unknown) (unknown) (no date) (unknown) (unknown) treatment of COPD, and she had ECHO with EF 25-30%. She has a history of poor (units unknown) (unknown) Result panel 699 (unknown) (no date) (unknown) (unknown) (no value) (units unknown) (unknown) (unknown) (no date) (unknown) (unknown) (*Appt on September With (units unknown) (unknown) (unknown) (no date) (unknown) (unknown) (past 8 hours): (units unknown) (unknown) (unknown) (no date) (unknown) (unknown) Discharges patien t from system. (units unknown) (unknown) (unknown) (no date) (unknown) (unknown) ---acute COPD exacerbation (units unknown) (unknown) (unknown) (no date) (unknown) (unknown) ---acute on chronic CHFrEF (units unknown) (unknown) (unknown) (no date) (unknown) (unknown) -BMI 41, will affect illness healing (units unknown) (unknown) (unknown) (no date) (unknown) (unknown) -changed po prednisone to IV solumedrol due to persistent wheezes (units unknown) (unknown) (unknown) (no date) (unknown) (unknown) -continue eliquis, lisinopril, metoprolol (units unknown) (unknown) (unknown) (no date) (unknown) (unknown) -continue eliquis, metoprolol, and amiodarone (units unknown) (unknown) (unknown) (no date) (unknown) (unknown) -continue metoprolol and lisinopril (units unknown) (unknown) (unknown) (no date) (unknown) (unknown) -creatinine 1.29 on admission, near baseline (units unknown) (unknown) (unknown) (no date) (unknown) (unknown) -discharged on 40mg prednisone x3 more days (units unknown) (unknown) (unknown) (no date) (unknown) (unknown) -echo done just one month ago showing severe global hypokinesis and EF 25-30%, (units unknown) (unknown) (unknown) (no date) (unknown) (unknown) -for copd exacerbation will order steroids, azithromycin, and nebs (units unknown) (unknown) (unknown) (no date) (unknown) (unknown) -for now hold spironolactone (units unknown) (unknown) (unknown) (no date) (unknown) (unknown) -hold oral medications (units unknown) (unknown) (unknown) (no date) (unknown) (unknown) -now back on baselin e 3L O2 and wheezes improving (units unknown) (unknown) (unknown) (no date) (unknown) (unknown) -ordered for IV lasix, s/p -2.5L since admission (units unknown) (unknown) (unknown) (no date) (unknown) (unknown) -ordered high dose insulin sliding scale (units unknown) (unknown) (unknown) (no date) (unknown) (unknown) -oxy PRN (units unknown) (unknown) (unknown) (no date) (unknown) (unknown) -patient has history of dietary nonadherence (units unknown) (unknown) (unknown) (no date) (unknown) (unknown) -patient says she starr s pinched nerves in her neck causing severe pain (units unknown) (unknown) (unknown) (no date) (unknown) (unknown) -start lantus as she is hyperglycemic likely secondary to steroids (units unknown) (unknown) (unknown) (no date) (unknown) (unknown) -symptoms are more consistent with acute CHF exacerbation with elevated BNP, (units unknown) (unknown) (unknown) (no date) (unknown) (unknown) -trend daily (units unknown) (unknown) (unknown) (no date) (unknown) (unknown) 0.013. BNP 1250. Procal 0.06. Chest xray reviewed by me and showed cardiomegaly (units unknown) (unknown) (unknown) (no date) (unknown) (unknown) 09/06/22 19:22 (units unknown) (unknown) (unknown) (no date) (unknown) (unknown) 09/06/22 21:02 (units unknown) (unknown) (unknown) (no date) (unknown) (unknown) 09/07/22 04:51 (units unknown) (unknown) (unknown) (no date) (unknown) (unknown) 09/08/22 13:13 (units unknown) (unknown) (unknown) (no date) (unknown) (unknown) 09/10/22 0742 (units unknown) (unknown) (unknown) (no date) (unknown) (unknown) 1 tab PO BEDTIME (units unknown) (unknown) (unknown) (no date) (unknown) (unknown) 1 tab PO DAILY (units unknown) (unknown) (unknown) (no date) (unknown) (unknown) 1. Acute on chronic respiratory failure now improving secondary to: (units unknown) (unknown) (unknown) (no date) (unknown) (unknown) 100 mg PO DAILY (units unknown) (unknown) (unknown) (no date) (unknown) (unknown) 140, k 3.4, creatinine 1.29. INR 1.3. ABG pH 7.42, pCO2 46.9. Lactate 1.0. Trop (units unknown) (unknown) (unknown) (no date) (unknown) (unknown) 07114 (units unknown) (unknown) (unknown) (no date) (unknown) (unknown) 2 inh INHALATION Q4H PRN (Reason: Shortness Of Breath) (units unknown) (unknown) (unknown) (no date) (unknown) (unknown) 2 puff INHALATION QI D PRN (Reason: Shortness Of Breath) (units unknown) (unknown) (unknown) (no date) (unknown) (unknown) 2. CAD s/p stents s/ p ppm/aicd (units unknown) (unknown) (unknown) (no date) (unknown) (unknown) 25 mg PO BID (units unknown) (unknown) (unknown) (no date) (unknown) (unknown) 25 mg PO DAILY (units unknown) (unknown) (unknown) (no date) (unknown) (unknown) 25 mg PO Q6H PRN (Reason: Nausea) (units unknown) (unknown) (unknown) (no date) (unknown) (unknown) 3. Chronic atrial fibrillation (units unknown) (unknown) (unknown) (no date) (unknown) (unknown) [phone]. ) (units unknown) (unknown) (unknown) (no date) (unknown) (unknown) 4. CKD stage 2 (units unknown) (unknown) (unknown) (no date) (unknown) (unknown) 40 mg PO DAILY 3 Day s Qty: 6 0RF (units unknown) (unknown) (unknown) (no date) (unknown) (unknown) 5 mg PO BID (units unknown) (unknown) (unknown) (no date) (unknown) (unknown) 5 mg PO DAILY Qty: 3 0 3RF (units unknown) (unknown) (unknown) (no date) (unknown) (unknown) 5 mg PO DAILY (units unknown) (unknown) (unknown) (no date) (unknown) (unknown) 5 mg PO Q4HR PRN (Reason: pain) Qty: 20 0RF (units unknown) (unknown) (unknown) (no date) (unknown) (unknown) 5. Morbid obesity (units unknown) (unknown) (unknown) (no date) (unknown) (unknown) 500 mg PO TID PRN (Reason: Muscle Spasm) (units unknown) (unknown) (unknown) (no date) (unknown) (unknown) 6. Type 2 Diabetes (units unknown) (unknown) (unknown) (no date) (unknown) (unknown) 7. Neck pain (units unknown) (unknown) (unknown) (no date) (unknown) (unknown) 80 mg PO DAILY (units unknown) (unknown) (unknown) (no date) (unknown) (unknown) 80s, respiratory rat e in 20s-30s, blood pressure 70-100s/40s-50s. Sats in the (units unknown) (unknown) (unknown) (no date) (unknown) (unknown) 90s on 3L. Labs reviewed by me and notable for WBC 10.2, hgb 14.5, plts 232. Na (units unknown) (unknown) (unknown) (no date) (unknown) (unknown) ?Ms. Benavides is a 57W with PMH COPD on 3L oxygen, smoker, CHFrEF, CAD s/p stents, (units unknown) (unknown) (unknown) (no date) (unknown) (unknown) ABD: soft, nontender , nondistended, no organomegaly, normal bowel sounds (units unknown) (unknown) (unknown) (no date) (unknown) (unknown) Admitted for worsening SOB and wheezing. CXR showed interstitial edema so (units unknown) (unknown) (unknown) (no date) (unknown) (unknown) Age/Sex: 57 / F (units unknown) (unknown) (unknown) (no date) (unknown) (unknown) COPD (chronic obstructive pulmonary disease) (units unknown) (unknown) (unknown) (no date) (unknown) (unknown) CV: irregular, no murmurs (units unknown) (unknown) (unknown) (no date) (unknown) (unknown) Chief complaint: SOB monday/ (units unknown) (unknown) (unknown) (no date) (unknown) (unknown) Comment: (units unknown) (unknown) (unknown) (no date) (unknown) (unknown) Consult to Dietitian , Adult Routine (units unknown) (unknown) (unknown) (no date) (unknown) (unknown) Consult to Home Health Routine (units unknown) (unknown) (unknown) (no date) (unknown) (unknown) Consults: (units unknown) (unknown) (unknown) (no date) (unknown) (unknown) Continued (units unknown) (unknown) (unknown) (no date) (unknown) (unknown) : 1965 Acct:[id number] (units unknown) (unknown) (unknown) (no date) (unknown) (unknown) Date Patient Seen: 09/06/22 (units unknown) (unknown) (unknown) (no date) (unknown) (unknown) Date of Service: 09/06/22 (units unknown) (unknown) (unknown) (no date) (unknown) (unknown) Date of admission: (units unknown) (unknown) (unknown) (no date) (unknown) (unknown) Deep Vein Thrombosis/Pulmonary Embolism Present on Admission: No (units unknown) (unknown) (unknown) (no date) (unknown) (unknown) Discharge Data (units unknown) (unknown) (unknown) (no date) (unknown) (unknown) Discharge Date/Time: 09/09/22 11:00 (units unknown) (unknown) (unknown) (no date) (unknown) (unknown) Discharge Date: 09/09/22 (units unknown) (unknown) (unknown) (no date) (unknown) (unknown) Discharge Diagnosis: (units unknown) (unknown) (unknown) (no date) (unknown) (unknown) Discharge Plan (units unknown) (unknown) (unknown) (no date) (unknown) (unknown) Discharge Providers (units unknown) (unknown) (unknown) (no date) (unknown) (unknown) Discharge Summary (units unknown) (unknown) (unknown) (no date) (unknown) (unknown) Discharge orders + Medications (units unknown) (unknown) (unknown) (no date) (unknown) (unknown) Discharge provider: (units unknown) (unknown) (unknown) (no date) (unknown) (unknown) EXT: warm and well perfused with no edema (units unknown) (unknown) (unknown) (no date) (unknown) (unknown) Eliquis 5 mg tablet (units unknown) (unknown) (unknown) (no date) (unknown) (unknown) Exam Narrative: (units unknown) (unknown) (unknown) (no date) (unknown) (unknown) Exam (units unknown) (unknown) (unknown) (no date) (unknown) (unknown) Falls, DI for Encephalopathy (units unknown) (unknown) (unknown) (no date) (unknown) (unknown) Follow up/Referrals: (units unknown) (unknown) (unknown) (no date) (unknown) (unknown) Fraction of Inspired Oxygen 32 (units unknown) (unknown) (unknown) (no date) (unknown) (unknown) GEN: NAD (units unknown) (unknown) (unknown) (no date) (unknown) (unknown) HEENT: moist mucous membranes, PERRL (units unknown) (unknown) (unknown) (no date) (unknown) (unknown) History of Present Illness (units unknown) (unknown) (unknown) (no date) (unknown) (unknown) Hospital Course (units unknown) (unknown) (unknown) (no date) (unknown) (unknown) Hospital Course: (units unknown) (unknown) (unknown) (no date) (unknown) (unknown) INHALE 2 PUFFS BY MOUTH 4 TIMES DAILY NEEDED (units unknown) (unknown) (unknown) (no date) (unknown) (unknown) INHALE 2 PUFFS BY MOUTH EVERY 4 TO 6 HOURS NEEDED (units unknown) (unknown) (unknown) (no date) (unknown) (unknown) In the ED workup was done, vitals notable for afebrlie, heart rate in the 70s (units unknown) (unknown) (unknown) (no date) (unknown) (unknown) Instructions: DI for Heart Failure, DI for Pneumonia -- Adult, How to Prevent (units unknown) (unknown) (unknown) (no date) (unknown) (unknown) [address] [address] (units unknown) (unknown) (unknown) (no date) (unknown) (unknown) Rohini Ceron PA-C (units unknown) (unknown) (unknown) (no date) (unknown) (unknown) Labs (units unknown) (unknown) (unknown) (no date) (unknown) (unknown) Jerald Sanches, DO (units unknown) (unknown) (unknown) (no date) (unknown) (unknown) Medical History (units unknown) (unknown) (unknown) (no date) (unknown) (unknown) Mucinex DM 30-600 mg Tablet Extended Release 12 Hr (units unknown) (unknown) (unknown) (no date) (unknown) (unknown) NECK: trachea midline, no JVD (units unknown) (unknown) (unknown) (no date) (unknown) (unknown) NEURO: awake, alert, oriented, no focal deficits (units unknown) (unknown) (unknown) (no date) (unknown) (unknown) Narrative (units unknown) (unknown) (unknown) (no date) (unknown) (unknown) Narrative: (units unknown) (unknown) (unknown) (no date) (unknown) (unknown) New (units unknown) (unknown) (unknown) (no date) (unknown) (unknown) Objective (units unknown) (unknown) (unknown) (no date) (unknown) (unknown) Oxygen Delivery Method Nasal Cannula (units unknown) (unknown) (unknown) (no date) (unknown) (unknown) Oxygen Flow Rate 3 (units unknown) (unknown) (unknown) (no date) (unknown) (unknown) PFSH (units unknown) (unknown) (unknown) (no date) (unknown) (unknown) PULM: diffuse wheeze s have improved today (units unknown) (unknown) (unknown) (no date) (unknown) (unknown) Patient Comments: (units unknown) (unknown) (unknown) (no date) (unknown) (unknown) Patient Disposition: Home Health Service (units unknown) (unknown) (unknown) (no date) (unknown) (unknown) Patient: Ester Benavides MR#: [id number] (units unknown) (unknown) (unknown) (no date) (unknown) (unknown) Prescriptions: (units unknown) (unknown) (unknown) (no date) (unknown) (unknown) Primary Care Provider: Rohini Ceron (units unknown) (unknown) (unknown) (no date) (unknown) (unknown) Primary care physician: (units unknown) (unknown) (unknown) (no date) (unknown) (unknown) ProAir RespiClick 90 mcg/actuation aerosol powdr breath activated (units unknown) (unknown) (unknown) (no date) (unknown) (unknown) Provider Discharge Comment: You were admitted to the hospital for worsening (units unknown) (unknown) (unknown) (no date) (unknown) (unknown) Provider (units unknown) (unknown) (unknown) (no date) (unknown) (unknown) Provider: Jerald Sanches D.O. (units unknown) (unknown) (unknown) (no date) (unknown) (unknown) Quality (units unknown) (unknown) (unknown) (no date) (unknown) (unknown) Reason For Exam: [facility] health upon discharge (units unknown) (unknown) (unknown) (no date) (unknown) (unknown) Reason For Exam: weight loss >50# in a month (units unknown) (unknown) (unknown) (no date) (unknown) (unknown) SaO2/FiO2 Ratio 290 (units unknown) (unknown) (unknown) (no date) (unknown) (unknown) Signed By:<Electronically signed by Jerald Sanches D.O.> (units unknown) (unknown) (unknown) (no date) (unknown) (unknown) Smoking Status: Current every day smoker (units unknown) (unknown) (unknown) (no date) (unknown) (unknown) Social History (units unknown) (unknown) (unknown) (no date) (unknown) (unknown) Stand Alone Forms: Congestive Heart Failure, Patient Portal/API, Stroke Signs (units unknown) (unknown) (unknown) (no date) (unknown) (unknown) Summary (units unknown) (unknown) (unknown) (no date) (unknown) (unknown) Symptoms (units unknown) (unknown) (unknown) (no date) (unknown) (unknown) TAKE 1 TABLET BY MOUTH EVERY 6 HOURS (units unknown) (unknown) (unknown) (no date) (unknown) (unknown) TAKE 1 TABLET BY MOUTH ONCE DAILY (units unknown) (unknown) (unknown) (no date) (unknown) (unknown) TAKE 1 TABLET BY MOUTH THREE TIMES DAILY NEEDED FOR MUSCLE SPASM (units unknown) (unknown) (unknown) (no date) (unknown) (unknown) TAKE 1 TABLET BY MOUTH TWICE DAILY FOR BLOOD PRESSURE (units unknown) (unknown) (unknown) (no date) (unknown) (unknown) TAKE 1 TABLET BY MOUTH TWICE DAILY (units unknown) (unknown) (unknown) (no date) (unknown) (unknown) TAKE 1/2 (ONE-HALF) TABLET BY MOUTH ONCE DAILY (units unknown) (unknown) (unknown) (no date) (unknown) (unknown) Time Patient Seen: 20:00 (units unknown) (unknown) (unknown) (no date) (unknown) (unknown) Time Spent with Patient (units unknown) (unknown) (unknown) (no date) (unknown) (unknown) Time spent: Greater than 30 minutes (units unknown) (unknown) (unknown) (no date) (unknown) (unknown) VTE (units unknown) (unknown) (unknown) (no date) (unknown) (unknown) Visit Report/Discharge Packet (units unknown) (unknown) (unknown) (no date) (unknown) (unknown) Vital Signs (units unknown) (unknown) (unknown) (no date) (unknown) (unknown) Rohini Ceron PA-C [Primary Care Provider] - 2 Weeks (units unknown) (unknown) (unknown) (no date) (unknown) (unknown) [Embedded Image Not Available] (units unknown) (unknown) (unknown) (no date) (unknown) (unknown) adherence to CHF diet. She has been referred to hospice in the past by her PCP, (units unknown) (unknown) (unknown) (no date) (unknown) (unknown) albuterol sulfate [Ventolin HFA] 90 mcg/actuation HFA aerosol inhaler (units unknown) (unknown) (unknown) (no date) (unknown) (unknown) alcohol intake: former (units unknown) (unknown) (unknown) (no date) (unknown) (unknown) amiodarone 200 mg tablet (units unknown) (unknown) (unknown) (no date) (unknown) (unknown) and interstitial congestion. She was ordered for lasix and steroids and (units unknown) (unknown) (unknown) (no date) (unknown) (unknown) and lying flat which worsen her shortness of breath. She is using her oxygen (units unknown) (unknown) (unknown) (no date) (unknown) (unknown) and your breathing improved. You will now finish a few days of steroids at home. (units unknown) (unknown) (unknown) (no date) (unknown) (unknown) at 10:00am. Please check-in at 09:45am. (units unknown) (unknown) (unknown) (no date) (unknown) (unknown) breath. She has note d a chronic cough. It is not worse than her usual. She (units unknown) (unknown) (unknown) (no date) (unknown) (unknown) brings up clear phlegm. She has noted no chest pain. She thinks her weight has (units unknown) (unknown) (unknown) (no date) (unknown) (unknown) but has remained ful l code. (units unknown) (unknown) (unknown) (no date) (unknown) (unknown) fluid evidence on chest xray (units unknown) (unknown) (unknown) (no date) (unknown) (unknown) for wheezing which improved. Able to wean back to baseline 3L O2. Discharged (units unknown) (unknown) (unknown) (no date) (unknown) (unknown) furosemide 40 mg tablet (units unknown) (unknown) (unknown) (no date) (unknown) (unknown) glipizide [Glucotrol XL] 5 mg tablet extended release 24hr (units unknown) (unknown) (unknown) (no date) (unknown) (unknown) gone up, but she has no scale to measure this. She has difficulty with exertion (units unknown) (unknown) (unknown) (no date) (unknown) (unknown) home on po prednison e and home po lasix. (units unknown) (unknown) (unknown) (no date) (unknown) (unknown) hospital last month with a similar presentation and ordered for diuresis and for (units unknown) (unknown) (unknown) (no date) (unknown) (unknown) household members: spouse (units unknown) (unknown) (unknown) (no date) (unknown) (unknown) lisinopril 5 mg tablet (units unknown) (unknown) (unknown) (no date) (unknown) (unknown) lives independently: Yes (units unknown) (unknown) (unknown) (no date) (unknown) (unknown) methocarbamol 500 mg tablet (units unknown) (unknown) (unknown) (no date) (unknown) (unknown) metoprolol succinate 25 mg tablet extended release 24 hr (units unknown) (unknown) (unknown) (no date) (unknown) (unknown) more frequently. She is not urinating very much. She was admitted to the (units unknown) (unknown) (unknown) (no date) (unknown) (unknown) multivitamin Tablet (units unknown) (unknown) (unknown) (no date) (unknown) (unknown) nebulizers and admitte for further treatment. (units unknown) (unknown) (unknown) (no date) (unknown) (unknown) oxycodone 5 mg Tablet (units unknown) (unknown) (unknown) (no date) (unknown) (unknown) prednisone 20 mg tablet (units unknown) (unknown) (unknown) (no date) (unknown) (unknown) promethazine 25 mg tablet (units unknown) (unknown) (unknown) (no date) (unknown) (unknown) repeat limited on 09/07 unchanged (units unknown) (unknown) (unknown) (no date) (unknown) (unknown) s/p ppm/aicd, Type 2 DM, afib who presents to the hospital with shortness of (units unknown) (unknown) (unknown) (no date) (unknown) (unknown) shortness of breath. We gave you high dose lasix to get water off and steroids (units unknown) (unknown) (unknown) (no date) (unknown) (unknown) spironolactone 25 mg tablet (units unknown) (unknown) (unknown) (no date) (unknown) (unknown) started on IV lasix. Repeat echo showed no changes from prior. Given IV steroids (units unknown) (unknown) (unknown) (no date) (unknown) (unknown) treatment of COPD, and she had ECHO with EF 25-30%. She has a history of poor (units unknown) (unknown) Social History date description facility 2022-07-24 00:00 Smokes tobacco daily (finding) [facility] 2022-09-06 00:00 Smokes tobacco daily (finding) [facility] Vital Signs date measurement value units 2022-07-24 00:00 BMI 74.4 kg/m2 2022-07-24 00:00 BP_diastolic 60 mmHg 2022-07-24 00:00 BP_systolic 129 mmHg 2022-07-24 00:00 heart_rate 59 /min 2022-07-24 00:00 height_metric 160.02 cm 2022-07-24 00:00 height_standard 63 in 2022-07-24 00:00 o2_saturation 86 % 2022-07-24 00:00 respiration_rate 38 /min 2022-07-24 00:00 temperature_metric 36.72 C 2022-07-24 00:00 temperature_standard 98.1 F 2022-07-24 00:00 weight_metric 190.5 kg 2022-07-24 00:00 weight_standard 419.98 lb 2022-07-27 00:00 weight_metric 112.6 kg 2022-07-27 00:00 weight_standard 248.24 lb 2022-07-28 00:00 BP_diastolic 59 mmHg 2022-07-28 00:00 BP_systolic 118 mmHg 2022-07-28 00:00 heart_rate 61 /min 2022-07-28 00:00 o2_saturation 96 % 2022-07-28 00:00 respiration_rate 18 /min 2022-07-28 00:00 temperature_metric 36.11 C 2022-07-28 00:00 temperature_standard 97 F 2022-09-06 00:00 BMI 41.0 kg/m2 2022-09-06 00:00 BP_diastolic 82 mmHg 2022-09-06 00:00 BP_systolic 155 mmHg 2022-09-06 00:00 heart_rate 80 /min 2022-09-06 00:00 height_metric 162.56 cm 2022-09-06 00:00 height_standard 64 in 2022-09-06 00:00 o2_saturation 96 % 2022-09-06 00:00 respiration_rate 34 /min 2022-09-06 00:00 weight_metric 108.4 kg 2022-09-06 00:00 weight_standard 238.98 lb 2022-09-09 00:00 BP_diastolic 63 mmHg 2022-09-09 00:00 BP_systolic 125 mmHg 2022-09-09 00:00 heart_rate 80 /min 2022-09-09 00:00 o2_saturation 96 % 2022-09-09 00:00 respiration_rate 16 /min 2022-09-09 00:00 temperature_metric 36.78 C 2022-09-09 00:00 temperature_standard 98.2 F 2022-09-09 00:00 weight_metric 110.5 kg 2022-09-09 00:00 weight_standard 243.61 lb
--- NOTE | 2022-09-29 14:53 | CT Report ---
PROCEDURE: HEAD WO INDICATIONS: fell, struck face, on Eliquis TECHNIQUE: Noncontrast 4.5 mm thick angled axial sections acquired from the foramen magnum to the vertex. For r adiation dose reduction, the following was used: automated exposure control, adjustment of mA and/or kV according to patient size. COMPARISON: CT head 03/17/2021 FINDINGS: Image quality: Excellent. CSF spaces: Basal cisterns are patent. No extra-axial fluid collections. Ventricles are normal in size and shape. Brain: No midline shift. No intracranial masses or hemorrhage. Garcia-white matter interface is norm al. Skull and face: Calvarium and visualized facial bones are intact, without suspicious lesions. Sinuses: Visualized sinuses demonstrate minimal right maxillary sinus mucosal thickening. IMPRESSION: 1. No acute intracranial process. Reviewed by: Tania Kat MD on 09/29/2022 2:52 PM PDT Approved by: Tania Kat MD on 09/29/2022 2:52 PM PDT Station ID: [id number]
[2022-09-29 15:29] VITALS: BP 137/44
== END 2022-09-29 15:29 | disposition home or self-care (01) ==
LOC: ED 14:03
DX: S82.831A Other fracture of upper and lower end of right fibula, initial encounter for closed fracture (principal); W01.0XXA Fall on same level from slipping, tripping and stumbling without subsequent striking against object, initial encounter; S09.93XA Unspecified injury of face, initial encounter; I48.91 Unspecified atrial fibrillation; Z79.01 Long term (current) use of anticoagulants; I11.0 Hypertensive heart disease with heart failure; I50.9 Heart failure, unspecified; I25.2 Old myocardial infarction; I25.10 Atherosclerotic heart disease of native coronary artery without angina pectoris; J43.9 Emphysema, unspecified; F17.200 Nicotine dependence, unspecified, uncomplicated
CPT/HCPCS: 36415; 70450; 73610; 96372; 99283; 99284; J1170

== ENCOUNTER 2022-10-04 08:00 | Outpatient (CLI) | payer MEDICARE, MEDICAID ==
--- NOTE | 2022-10-04 16:54 | XRAY Report ---
PROCEDURE: Ankle 3 View RT INDICATIONS: RIGHT ANKLE FRACTURE TECHNIQUE: 3 views of the ankle were acquired. COMPARISON: 09/29/2022 FINDINGS: Bones: Linear lucency of the distal fibular tip consistent with a nondisplaced distal fibular fractu re. Ankle mortise is normally aligned. No suspicious bony lesions. Plantar calcaneal spurs seen. Soft tissues: No tibiotalar joint effusion. Achilles tendon appears normal. IMPRESSION: Nondisplaced distal fibular fracture. Reviewed by: Moi Gray on 10/04/2022 4:53 PM PDT Approved by: Moi Gray on 10/04/2022 4:53 PM PDT Station ID: [id number]
== END 2022-10-04 23:59 | disposition home or self-care (01) ==
LOC: DI.WOS 08:00
PROVIDERS: ATTEND Orthopaedic Surgery
DX: S82.831A Other fracture of upper and lower end of right fibula, initial encounter for closed fracture (principal)

== ENCOUNTER 2022-10-05 07:54 | Outpatient (CLI) | payer MEDICARE, MEDICAID ==
[2022-10-05 11:45] LABS: CALCIUM 9.9 mg/dL (8.5-10.3); CREATININE 0.9 mg/dL (0.4-1.0); POTASSIUM 4.1 mmol/L (3.5-5.0)
[2022-10-05 12:24] LABS: ESTIMATED AVERAGE GLUCOSE 166 mg/dL (70-100); HEMOGLOBIN A1c% 7.4 % (4.27-6.07)
== END 2022-10-05 07:55 | disposition home or self-care (01) ==
LOC: LAB.N 07:54
PROVIDERS: ATTEND Family Medicine
DX: I50.9 Heart failure, unspecified (principal); R00.1 Bradycardia, unspecified; E26.1 Secondary hyperaldosteronism; I95.9 Hypotension, unspecified; E11.9 Type 2 diabetes mellitus without complications
CPT/HCPCS: 36415; 80048; 83036

== ENCOUNTER 2022-11-03 15:58 | Inpatient (IN) | payer MEDICARE, MEDICAID ==
[2022-11-03] MEDS ORDERED: IPRATROPIUM/ALBUTEROL 3 ML NEB INH STA (16:08)
[2022-11-03] MEDS ORDERED: predniSONE 20 MG TABLET PO STA (16:26)
--- OUTSIDE RECORDS SUMMARY | 2022-11-03 16:26 | EXTERNAL MEDICAL SUMMARY RPT | Continuity of Care Document ---
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 Role Phone Unavailable Unavailable Unavailable Rohini Ceron Unavailable Unavailable Allergies and Intolerances date description facility type (no date) Fish Containing Products [facility] (unknown) (no date) acetaminophen [facility] (unknown) (no date) bee pollen [facility] (unknown) (no date) codeine [facility] (unknown) (no date) doxycycline [facility] (unknown) (no date) erythromycin base [facility] (unknow n) (no date) iodine [facility] (unknown) (no date) latex [facility] (unknown) (no date) pamabrom [facility] (unknown) (no date) shellfish derived [facility] (unknow n) Medications date description facility 2022-09-06 00:00 Dextromethorphan-Guaifenesin Is [facility] 2022-09-06 00:00 Albuterol Sulfate [facility] al 2022-09-06 00:00 Methocarbamol [facility] 2022-09-09 00:00 Prednisone [facility] 2022-09-06 00:00 Metoprolol Succinate [facility]ital 2022-09-06 00:00 Promethazine [facility] Problems date description facility 2022-09-06 00:00 Acute congestive heart failure [facility] 2022-09-09 09:28 Acute on chronic systolic (daniel estive) heart failure [facility] 2022-09-09 09:57 Acute on chronic systolic (daniel estive) heart failure [facility] 2022-09-09 10:44 Acute on chronic systolic (daniel estive) heart failure [facility] 2022-09-09 13:52 Acute on chronic systolic (daniel estive) heart failure [facility] 2022-09-11 09:34 Acute on chronic systolic (daniel estive) heart failure [facility] Procedures date description facility 2022-09-06 00:00 X-ray of chest, single view [facility] 2022-09-06 00:00 Limited echocardiography [facility] Results/Labs test date author facility value unit interpretation Result panel 1 (unknown) (no date) (unknown) [facility] (no value) (units unknown) (unknown) Result panel 2 (unknown) (no date) (unknown) [facility] (no value) (units unknown) (unknown) Result panel 3 (unknown) (no date) (unknown) [facility] (no value) (units unknown) (unknown) Result panel 4 (unknown) (no date) (unknown) [facility] (no value) (units unknown) (unknown) Result panel 5 (unknown) (no date) (unknown) [facility] (no value) (units unknown) (unknown) Result panel 6 (unknown) (no date) (unknown) [facility] (no value) (units unknown) (unknown) Result panel 7 (unknown) (no date) (unknown) [facility] (no value) (units unknown) (unknown) Result panel 8 (unknown) (no date) (unknown) [facility] (no value) (units unknown) (unknown) Result panel 9 (unknown) (no date) (unknown) [facility] (no value) (units unknown) (unknown) Result panel 10 (unknown) (no date) (unknown) [facility] (no value) (units unknown) (unknown) Result panel 11 (unknown) (no date) (unknown) [facility] (no value) (units unknown) (unknown) Result panel 12 (unknown) (no date) (unknown) [facility] (no value) (units unknown) (unknown) Result panel 13 (unknown) (no date) (unknown) [facility] (no value) (units unknown) (unknown) Result panel 14 (unknown) (no date) (unknown) [facility] (no value) (units unknown) (unknown) Result panel 15 (unknown) (no date) (unknown) [facility] (no value) (units unknown) (unknown) Result panel 16 (unknown) (no date) (unknown) [facility] (no value) (units unknown) (unknown) Result panel 17 (unknown) (no date) (unknown) [facility] (no value) (units unknown) (unknown) Result panel 18 (unknown) (no date) (unknown) [facility] (no value) (units unknown) (unknown) Result panel 19 (unknown) (no date) (unknown) [facility] (no value) (units unknown) (unknown) Result panel 20 (unknown) (no date) (unknown) [facility] (no value) (units unknown) (unknown) Result panel 21 (unknown) (no date) (unknown) [facility] (no value) (units unknown) (unknown) Result panel 22 (unknown) (no date) (unknown) [facility] (no value) (units unknown) (unknown) Result panel 23 (unknown) (no date) (unknown) [facility] (no value) (units unknown) (unknown) Result panel 24 (unknown) (no date) (unknown) [facility] (no value) (units unknown) (unknown) Result panel 25 (unknown) (no date) (unknown) [facility] (no value) (units unknown) (unknown) Result panel 26 (unknown) (no date) (unknown) [facility] (no value) (units unknown) (unknown) Result panel 27 (unknown) (no date) (unknown) [facility] (no value) (units unknown) (unknown) Result panel 28 (unknown) (no date) (unknown) [facility] (no value) (units unknown) (unknown) Result panel 29 (unknown) (no date) (unknown) [facility] (no value) (units unknown) (unknown) Result panel 30 (unknown) (no date) (unknown) [facility] (no value) (units unknown) (unknown) Result panel 31 (unknown) (no date) (unknown) [facility] (no value) (units unknown) (unknown) Result panel 32 (unknown) (no date) (unknown) [facility] (no value) (units unknown) (unknown) Result panel 33 (unknown) (no date) (unknown) [facility] (no value) (units unknown) (unknown) Result panel 34 (unknown) (no date) (unknown) [facility] (no value) (units unknown) (unknown) Result panel 35 (unknown) (no date) (unknown) [facility] (no value) (units unknown) (unknown) Result panel 36 (unknown) (no date) (unknown) [facility] (no value) (units unknown) (unknown) Result panel 37 (unknown) (no date) (unknown) [facility] (no value) (units unknown) (unknown) Result panel 38 (unknown) (no date) (unknown) [facility] (no value) (units unknown) (unknown) Result panel 39 (unknown) (no date) (unknown) [facility] (no value) (units unknown) (unknown) Result panel 40 (unknown) (no date) (unknown) [facility] (no value) (units unknown) (unknown) Result panel 41 (unknown) (no date) (unknown) [facility] (no value) (units unknown) (unknown) Result panel 42 (unknown) (no date) (unknown) [facility] (no value) (units unknown) (unknown) Result panel 43 (unknown) (no date) (unknown) [facility] (no value) (units unknown) (unknown) Result panel 44 (unknown) (no date) (unknown) [facility] (no value) (units unknown) (unknown) Result panel 45 (unknown) (no date) (unknown) [facility] (no value) (units unknown) (unknown) Result panel 46 (unknown) (no date) (unknown) [facility] (no value) (units unknown) (unknown) Result panel 47 (unknown) (no date) (unknown) [facility] (no value) (units unknown) (unknown) Result panel 48 (unknown) (no date) (unknown) [facility] (no value) (units unknown) (unknown) Result panel 49 (unknown) (no date) (unknown) [facility] (no value) (units unknown) (unknown) Result panel 50 (unknown) (no date) (unknown) [facility] (no value) (units unknown) (unknown) Result panel 51 (unknown) (no date) (unknown) [facility] (no value) (units unknown) (unknown) Result panel 52 (unknown) (no date) (unknown) [facility] (no value) (units unknown) (unknown) Result panel 53 (unknown) (no date) (unknown) [facility] (no value) (units unknown) (unknown) Result panel 54 (unknown) (no date) (unknown) [facility] (no value) (units unknown) (unknown) Result panel 55 (unknown) (no date) (unknown) [facility] (no value) (units unknown) (unknown) Result panel 56 (unknown) (no date) (unknown) [facility] (no value) (units unknown) (unknown) Result panel 57 (unknown) (no date) (unknown) [facility] (no value) (units unknown) (unknown) Result panel 58 (unknown) (no date) (unknown) [facility] (no value) (units unknown) (unknown) Result panel 59 (unknown) (no date) (unknown) [facility] (no value) (units unknown) (unknown) Result panel 60 (unknown) (no date) (unknown) [facility] (no value) (units unknown) (unknown) Result panel 61 (unknown) (no date) (unknown) [facility] (no value) (units unknown) (unknown) Result panel 62 (unknown) (no date) (unknown) [facility] (no value) (units unknown) (unknown) Result panel 63 (unknown) (no date) (unknown) [facility] (no value) (units unknown) (unknown) Result panel 64 (unknown) (no date) (unknown) [facility] (no value) (units unknown) (unknown) Result panel 65 (unknown) (no date) (unknown) [facility] (no value) (units unknown) (unknown) Result panel 66 (unknown) (no date) (unknown) [facility] (no value) (units unknown) (unknown) Result panel 67 (unknown) (no date) (unknown) [facility] (no value) (units unknown) (unknown) Result panel 68 (unknown) (no date) (unknown) [facility] (no value) (units unknown) (unknown) Result panel 69 (unknown) (no date) (unknown) [facility] (no value) (units unknown) (unknown) Result panel 70 (unknown) (no date) (unknown) [facility] (no value) (units unknown) (unknown) Result panel 71 (unknown) (no date) (unknown) [facility] (no value) (units unknown) (unknown) Result panel 72 (unknown) (no date) (unknown) [facility] (no value) (units unknown) (unknown) Result panel 73 (unknown) (no date) (unknown) [facility] (no value) (units unknown) (unknown) Result panel 74 (unknown) (no date) (unknown) [facility] (no value) (units unknown) (unknown) Result panel 75 (unknown) (no date) (unknown) [facility] (no value) (units unknown) (unknown) Result panel 76 (unknown) (no date) (unknown) [facility] (no value) (units unknown) (unknown) Result panel 77 (unknown) (no date) (unknown) [facility] (no value) (units unknown) (unknown) Result panel 78 (unknown) (no date) (unknown) [facility] (no value) (units unknown) (unknown) Result panel 79 (unknown) (no date) (unknown) [facility] (no value) (units unknown) (unknown) Result panel 80 (unknown) (no date) (unknown) [facility] (no value) (units unknown) (unknown) Result panel 81 (unknown) (no date) (unknown) [facility] (no value) (units unknown) (unknown) Result panel 82 (unknown) (no date) (unknown) [facility] (no value) (units unknown) (unknown) Result panel 83 (unknown) (no date) (unknown) [facility] (no value) (units unknown) (unknown) Result panel 84 (unknown) (no date) (unknown) [facility] (no value) (units unknown) (unknown) Result panel 85 (unknown) (no date) (unknown) [facility] (no value) (units unknown) (unknown) Result panel 86 (unknown) (no date) (unknown) [facility] (no value) (units unknown) (unknown) Result panel 87 (unknown) (no date) (unknown) [facility] (no value) (units unknown) (unknown) Result panel 88 (unknown) (no date) (unknown) [facility] (no value) (units unknown) (unknown) Result panel 89 (unknown) (no date) (unknown) [facility] (no value) (units unknown) (unknown) Result panel 90 (unknown) (no date) (unknown) [facility] (no value) (units unknown) (unknown) Result panel 91 (unknown) (no date) (unknown) [facility] (no value) (units unknown) (unknown) Result panel 92 (unknown) (no date) (unknown) [facility] (no value) (units unknown) (unknown) Result panel 93 (unknown) (no date) (unknown) [facility] (no value) (units unknown) (unknown) Result panel 94 (unknown) (no date) (unknown) [facility] (no value) (units unknown) (unknown) Result panel 95 (unknown) (no date) (unknown) [facility] (no value) (units unknown) (unknown) Result panel 96 (unknown) (no date) (unknown) [facility] (no value) (units unknown) (unknown) Result panel 97 (unknown) (no date) (unknown) [facility] (no value) (units unknown) (unknown) Result panel 98 (unknown) (no date) (unknown) [facility] (no value) (units unknown) (unknown) Result panel 99 (unknown) (no date) (unknown) [facility] (no value) (units unknown) (unknown) Result panel 100 (unknown) (no date) (unknown) [facility] (no value) (units unknown) (unknown) Result panel 101 (unknown) (no date) (unknown) [facility] (no value) (units unknown) (unknown) Result panel 102 (unknown) (no date) (unknown) [facility] (no value) (units unknown) (unknown) Result panel 103 (unknown) (no date) (unknown) [facility] (no value) (units unknown) (unknown) Result panel 104 (unknown) (no date) (unknown) [facility] (no value) (units unknown) (unknown) Result panel 105 (unknown) (no date) (unknown) [facility] (no value) (units unknown) (unknown) Result panel 106 (unknown) (no date) (unknown) [facility] (no value) (units unknown) (unknown) Result panel 107 (unknown) (no date) (unknown) [facility] (no value) (units unknown) (unknown) Result panel 108 (unknown) (no date) (unknown) [facility] (no value) (units unknown) (unknown) Result panel 109 (unknown) (no date) (unknown) [facility] (no value) (units unknown) (unknown) Result panel 110 (unknown) (no date) (unknown) [facility] (no value) (units unknown) (unknown) Result panel 111 (unknown) (no date) (unknown) [facility] (no value) (units unknown) (unknown) Result panel 112 (unknown) (no date) (unknown) [facility] (no value) (units unknown) (unknown) Result panel 113 (unknown) (no date) (unknown) [facility] (no value) (units unknown) (unknown) Result panel 114 (unknown) (no date) (unknown) [facility] (no value) (units unknown) (unknown) Result panel 115 (unknown) (no date) (unknown) [facility] (no value) (units unknown) (unknown) Result panel 116 (unknown) (no date) (unknown) [facility] (no value) (units unknown) (unknown) Result panel 117 (unknown) (no date) (unknown) [facility] (no value) (units unknown) (unknown) Result panel 118 (unknown) (no date) (unknown) [facility] (no value) (units unknown) (unknown) Result panel 119 (unknown) (no date) (unknown) [facility] (no value) (units unknown) (unknown) Result panel 120 (unknown) (no date) (unknown) [facility] (no value) (units unknown) (unknown) Result panel 121 (unknown) (no date) (unknown) [facility] (no value) (units unknown) (unknown) Result panel 122 (unknown) (no date) (unknown) [facility] (no value) (units unknown) (unknown) Result panel 123 (unknown) (no date) (unknown) [facility] (no value) (units unknown) (unknown) Result panel 124 (unknown) (no date) (unknown) [facility] (no value) (units unknown) (unknown) Result panel 125 (unknown) (no date) (unknown) [facility] (no value) (units unknown) (unknown) Result panel 126 (unknown) (no date) (unknown) [facility] (no value) (units unknown) (unknown) Result panel 127 (unknown) (no date) (unknown) [facility] (no value) (units unknown) (unknown) Result panel 128 (unknown) (no date) (unknown) [facility] (no value) (units unknown) (unknown) Result panel 129 (unknown) (no date) (unknown) [facility] (no value) (units unknown) (unknown) Result panel 130 (unknown) (no date) (unknown) [facility] (no value) (units unknown) (unknown) Result panel 131 (unknown) (no date) (unknown) [facility] (no value) (units unknown) (unknown) Result panel 132 (unknown) (no date) (unknown) [facility] (no value) (units unknown) (unknown) Result panel 133 (unknown) (no date) (unknown) [facility] (no value) (units unknown) (unknown) Result panel 134 (unknown) (no date) (unknown) [facility] (no value) (units unknown) (unknown) Result panel 135 (unknown) (no date) (unknown) [facility] (no value) (units unknown) (unknown) Result panel 136 (unknown) (no date) (unknown) [facility] (no value) (units unknown) (unknown) Result panel 137 (unknown) (no date) (unknown) [facility] (no value) (units unknown) (unknown) Result panel 138 (unknown) (no date) (unknown) [facility] (no value) (units unknown) (unknown) Result panel 139 (unknown) (no date) (unknown) [facility] (no value) (units unknown) (unknown) Result panel 140 (unknown) (no date) (unknown) [facility] (no value) (units unknown) (unknown) Result panel 141 (unknown) (no date) (unknown) [facility] (no value) (units unknown) (unknown) Result panel 142 (unknown) (no date) (unknown) [facility] (no value) (units unknown) (unknown) Result panel 143 (unknown) (no date) (unknown) [facility] (no value) (units unknown) (unknown) Result panel 144 (unknown) (no date) (unknown) [facility] (no value) (units unknown) (unknown) Result panel 145 (unknown) (no date) (unknown) [facility] (no value) (units unknown) (unknown) Result panel 146 (unknown) (no date) (unknown) [facility] (no value) (units unknown) (unknown) Result panel 147 (unknown) (no date) (unknown) [facility] (no value) (units unknown) (unknown) Result panel 148 (unknown) (no date) (unknown) [facility] (no value) (units unknown) (unknown) Result panel 149 (unknown) (no date) (unknown) [facility] (no value) (units unknown) (unknown) Result panel 150 (unknown) (no date) (unknown) [facility] (no value) (units unknown) (unknown) Result panel 151 (unknown) (no date) (unknown) [facility] (no value) (units unknown) (unknown) Result panel 152 (unknown) (no date) (unknown) [facility] (no value) (units unknown) (unknown) Result panel 153 (unknown) (no date) (unknown) [facility] (no value) (units unknown) (unknown) Result panel 154 (unknown) (no date) (unknown) [facility] (no value) (units unknown) (unknown) Result panel 155 (unknown) (no date) (unknown) [facility] (no value) (units unknown) (unknown) Result panel 156 (unknown) (no date) (unknown) [facility] (no value) (units unknown) (unknown) Result panel 157 (unknown) (no date) (unknown) [facility] (no value) (units unknown) (unknown) Result panel 158 (unknown) (no date) (unknown) [facility] (no value) (units unknown) (unknown) Result panel 159 (unknown) (no date) (unknown) [facility] (no value) (units unknown) (unknown) Result panel 160 (unknown) (no date) (unknown) [facility] (no value) (units unknown) (unknown) Result panel 161 (unknown) (no date) (unknown) [facility] (no value) (units unknown) (unknown) Result panel 162 (unknown) (no date) (unknown) [facility] (no value) (units unknown) (unknown) Result panel 163 (unknown) (no date) (unknown) [facility] (no value) (units unknown) (unknown) Result panel 164 (unknown) (no date) (unknown) [facility] (no value) (units unknown) (unknown) Result panel 165 (unknown) (no date) (unknown) [facility] (no value) (units unknown) (unknown) Result panel 166 (unknown) (no date) (unknown) [facility] (no value) (units unknown) (unknown) Result panel 167 (unknown) (no date) (unknown) [facility] (no value) (units unknown) (unknown) Result panel 168 (unknown) (no date) (unknown) [facility] (no value) (units unknown) (unknown) Result panel 169 (unknown) (no date) (unknown) [facility] (no value) (units unknown) (unknown) Result panel 170 (unknown) (no date) (unknown) [facility] (no value) (units unknown) (unknown) Result panel 171 (unknown) (no date) (unknown) [facility] (no value) (units unknown) (unknown) Result panel 172 (unknown) (no date) (unknown) [facility] (no value) (units unknown) (unknown) Result panel 173 (unknown) (no date) (unknown) [facility] (no value) (units unknown) (unknown) Result panel 174 (unknown) (no date) (unknown) [facility] (no value) (units unknown) (unknown) Result panel 175 (unknown) (no date) (unknown) [facility] (no value) (units unknown) (unknown) Result panel 176 (unknown) (no date) (unknown) [facility] (no value) (units unknown) (unknown) Result panel 177 (unknown) (no date) (unknown) [facility] (no value) (units unknown) (unknown) Result panel 178 (unknown) (no date) (unknown) [facility] (no value) (units unknown) (unknown) Result panel 179 (unknown) (no date) (unknown) [facility] (no value) (units unknown) (unknown) Result panel 180 (unknown) (no date) (unknown) [facility] (no value) (units unknown) (unknown) Result panel 181 (unknown) (no date) (unknown) [facility] (no value) (units unknown) (unknown) Result panel 182 (unknown) (no date) (unknown) [facility] (no value) (units unknown) (unknown) Result panel 183 (unknown) (no date) (unknown) [facility] (no value) (units unknown) (unknown) Result panel 184 (unknown) (no date) (unknown) [facility] (no value) (units unknown) (unknown) Result panel 185 (unknown) (no date) (unknown) [facility] (no value) (units unknown) (unknown) Result panel 186 (unknown) (no date) (unknown) [facility] (no value) (units unknown) (unknown) Result panel 187 (unknown) (no date) (unknown) [facility] (no value) (units unknown) (unknown) Result panel 188 (unknown) (no date) (unknown) [facility] (no value) (units unknown) (unknown) Result panel 189 (unknown) (no date) (unknown) [facility] (no value) (units unknown) (unknown) Result panel 190 (unknown) (no date) (unknown) [facility] (no value) (units unknown) (unknown) Result panel 191 (unknown) (no date) (unknown) [facility] (no value) (units unknown) (unknown) Result panel 192 (unknown) (no date) (unknown) [facility] (no value) (units unknown) (unknown) Result panel 193 (unknown) (no date) (unknown) [facility] (no value) (units unknown) (unknown) Result panel 194 (unknown) (no date) (unknown) [facility] (no value) (units unknown) (unknown) Result panel 195 (unknown) (no date) (unknown) [facility] (no value) (units unknown) (unknown) Result panel 196 (unknown) (no date) (unknown) [facility] (no value) (units unknown) (unknown) Result panel 197 (unknown) (no date) (unknown) [facility] (no value) (units unknown) (unknown) Result panel 198 (unknown) (no date) (unknown) [facility] (no value) (units unknown) (unknown) Result panel 199 (unknown) (no date) (unknown) [facility] (no value) (units unknown) (unknown) Result panel 200 (unknown) (no date) (unknown) [facility] (no value) (units unknown) (unknown) Result panel 201 (unknown) (no date) (unknown) [facility] (no value) (units unknown) (unknown) Result panel 202 (unknown) (no date) (unknown) [facility] (no value) (units unknown) (unknown) Result panel 203 (unknown) (no date) (unknown) [facility] (no value) (units unknown) (unknown) Result panel 204 (unknown) (no date) (unknown) [facility] (no value) (units unknown) (unknown) Result panel 205 (unknown) (no date) (unknown) [facility] (no value) (units unknown) (unknown) Result panel 206 (unknown) (no date) (unknown) [facility] (no value) (units unknown) (unknown) Result panel 207 (unknown) (no date) (unknown) [facility] (no value) (units unknown) (unknown) Result panel 208 (unknown) (no date) (unknown) [facility] (no value) (units unknown) (unknown) Result panel 209 (unknown) (no date) (unknown) [facility] (no value) (units unknown) (unknown) Result panel 210 (unknown) (no date) (unknown) [facility] (no value) (units unknown) (unknown) Result panel 211 (unknown) (no date) (unknown) [facility] (no value) (units unknown) (unknown) Result panel 212 (unknown) (no date) (unknown) [facility] (no value) (units unknown) (unknown) Result panel 213 (unknown) (no date) (unknown) [facility] (no value) (units unknown) (unknown) Result panel 214 (unknown) (no date) (unknown) [facility] (no value) (units unknown) (unknown) Result panel 215 (unknown) (no date) (unknown) [facility] (no value) (units unknown) (unknown) Result panel 216 (unknown) (no date) (unknown) [facility] (no value) (units unknown) (unknown) Result panel 217 (unknown) (no date) (unknown) [facility] (no value) (units unknown) (unknown) Result panel 218 (unknown) (no date) (unknown) [facility] (no value) (units unknown) (unknown) Result panel 219 (unknown) (no date) (unknown) [facility] (no value) (units unknown) (unknown) Result panel 220 (unknown) (no date) (unknown) [facility] (no value) (units unknown) (unknown) Result panel 221 (unknown) (no date) (unknown) [facility] (no value) (units unknown) (unknown) Result panel 222 (unknown) (no date) (unknown) [facility] (no value) (units unknown) (unknown) Result panel 223 (unknown) (no date) (unknown) [facility] (no value) (units unknown) (unknown) Result panel 224 (unknown) (no date) (unknown) [facility] (no value) (units unknown) (unknown) Result panel 225 (unknown) (no date) (unknown) [facility] (no value) (units unknown) (unknown) Result panel 226 (unknown) (no date) (unknown) [facility] (no value) (units unknown) (unknown) Result panel 227 (unknown) (no date) (unknown) [facility] (no value) (units unknown) (unknown) Result panel 228 (unknown) (no date) (unknown) [facility] (no value) (units unknown) (unknown) Result panel 229 (unknown) (no date) (unknown) [facility] (no value) (units unknown) (unknown) Result panel 230 (unknown) (no date) (unknown) [facility] (no value) (units unknown) (unknown) Result panel 231 (unknown) (no date) (unknown) [facility] (no value) (units unknown) (unknown) Result panel 232 (unknown) (no date) (unknown) [facility] (no value) (units unknown) (unknown) Result panel 233 (unknown) (no date) (unknown) [facility] (no value) (units unknown) (unknown) Result panel 234 (unknown) (no date) (unknown) [facility] (no value) (units unknown) (unknown) Result panel 235 (unknown) (no date) (unknown) [facility] (no value) (units unknown) (unknown) Result panel 236 (unknown) (no date) (unknown) [facility] (no value) (units unknown) (unknown) Result panel 237 (unknown) (no date) (unknown) [facility] (no value) (units unknown) (unknown) Result panel 238 (unknown) (no date) (unknown) [facility] (no value) (units unknown) (unknown) Result panel 239 (unknown) (no date) (unknown) [facility] (no value) (units unknown) (unknown) Result panel 240 (unknown) (no date) (unknown) [facility] (no value) (units unknown) (unknown) Result panel 241 (unknown) (no date) (unknown) [facility] (no value) (units unknown) (unknown) Result panel 242 (unknown) (no date) (unknown) [facility] (no value) (units unknown) (unknown) Result panel 243 (unknown) (no date) (unknown) [facility] (no value) (units unknown) (unknown) Result panel 244 (unknown) (no date) (unknown) [facility] (no value) (units unknown) (unknown) Result panel 245 (unknown) (no date) (unknown) [facility] (no value) (units unknown) (unknown) Result panel 246 (unknown) (no date) (unknown) [facility] (no value) (units unknown) (unknown) Result panel 247 (unknown) (no date) (unknown) [facility] (no value) (units unknown) (unknown) Result panel 248 (unknown) (no date) (unknown) [facility] (no value) (units unknown) (unknown) Result panel 249 (unknown) (no date) (unknown) [facility] (no value) (units unknown) (unknown) Result panel 250 (unknown) (no date) (unknown) [facility] (no value) (units unknown) (unknown) Result panel 251 (unknown) (no date) (unknown) [facility] (no value) (units unknown) (unknown) Result panel 252 (unknown) (no date) (unknown) [facility] (no value) (units unknown) (unknown) Result panel 253 (unknown) (no date) (unknown) [facility] (no value) (units unknown) (unknown) Result panel 254 (unknown) (no date) (unknown) [facility] (no value) (units unknown) (unknown) Result panel 255 (unknown) (no date) (unknown) [facility] (no value) (units unknown) (unknown) Result panel 256 (unknown) (no date) (unknown) [facility] (no value) (units unknown) (unknown) Result panel 257 (unknown) (no date) (unknown) [facility] (no value) (units unknown) (unknown) Result panel 258 (unknown) (no date) (unknown) [facility] (no value) (units unknown) (unknown) Result panel 259 (unknown) (no date) (unknown) [facility] (no value) (units unknown) (unknown) Result panel 260 (unknown) (no date) (unknown) [facility] (no value) (units unknown) (unknown) Result panel 261 (unknown) (no date) (unknown) [facility] (no value) (units unknown) (unknown) Result panel 262 (unknown) (no date) (unknown) [facility] (no value) (units unknown) (unknown) Result panel 263 (unknown) (no date) (unknown) [facility] (no value) (units unknown) (unknown) Result panel 264 (unknown) (no date) (unknown) [facility] (no value) (units unknown) (unknown) Result panel 265 (unknown) (no date) (unknown) [facility] (no value) (units unknown) (unknown) Result panel 266 (unknown) (no date) (unknown) [facility] (no value) (units unknown) (unknown) Result panel 267 (unknown) (no date) (unknown) [facility] (no value) (units unknown) (unknown) Result panel 268 (unknown) (no date) (unknown) [facility] (no value) (units unknown) (unknown) Result panel 269 (unknown) (no date) (unknown) [facility] (no value) (units unknown) (unknown) Result panel 270 (unknown) (no date) (unknown) [facility] (no value) (units unknown) (unknown) Result panel 271 (unknown) (no date) (unknown) [facility] (no value) (units unknown) (unknown) Result panel 272 (unknown) (no date) (unknown) [facility] (no value) (units unknown) (unknown) Result panel 273 (unknown) (no date) (unknown) [facility] (no value) (units unknown) (unknown) Result panel 274 (unknown) (no date) (unknown) [facility] (no value) (units unknown) (unknown) Result panel 275 (unknown) (no date) (unknown) [facility] (no value) (units unknown) (unknown) Result panel 276 (unknown) (no date) (unknown) [facility] (no value) (units unknown) (unknown) Result panel 277 (unknown) (no date) (unknown) [facility] (no value) (units unknown) (unknown) Result panel 278 (unknown) (no date) (unknown) [facility] (no value) (units unknown) (unknown) Result panel 279 (unknown) (no date) (unknown) [facility] (no value) (units unknown) (unknown) Result panel 280 (unknown) (no date) (unknown) [facility] (no value) (units unknown) (unknown) Result panel 281 (unknown) (no date) (unknown) [facility] (no value) (units unknown) (unknown) Result panel 282 (unknown) (no date) (unknown) [facility] (no value) (units unknown) (unknown) Result panel 283 (unknown) (no date) (unknown) [facility] (no value) (units unknown) (unknown) Result panel 284 (unknown) (no date) (unknown) [facility] (no value) (units unknown) (unknown) Result panel 285 (unknown) (no date) (unknown) [facility] (no value) (units unknown) (unknown) Result panel 286 (unknown) (no date) (unknown) [facility] (no value) (units unknown) (unknown) Result panel 287 (unknown) (no date) (unknown) [facility] (no value) (units unknown) (unknown) Result panel 288 (unknown) (no date) (unknown) [facility] (no value) (units unknown) (unknown) Result panel 289 (unknown) (no date) (unknown) [facility] (no value) (units unknown) (unknown) Result panel 290 (unknown) (no date) (unknown) [facility] (no value) (units unknown) (unknown) Result panel 291 (unknown) (no date) (unknown) [facility] (no value) (units unknown) (unknown) Result panel 292 (unknown) (no date) (unknown) [facility] (no value) (units unknown) (unknown) Result panel 293 (unknown) (no date) (unknown) [facility] (no value) (units unknown) (unknown) Result panel 294 (unknown) (no date) (unknown) [facility] (no value) (units unknown) (unknown) Result panel 295 (unknown) (no date) (unknown) [facility] (no value) (units unknown) (unknown) Result panel 296 (unknown) (no date) (unknown) [facility] (no value) (units unknown) (unknown) Result panel 297 (unknown) (no date) (unknown) [facility] (no value) (units unknown) (unknown) Result panel 298 (unknown) (no date) (unknown) [facility] (no value) (units unknown) (unknown) Result panel 299 (unknown) (no date) (unknown) [facility] (no value) (units unknown) (unknown) Result panel 300 (unknown) (no date) (unknown) [facility] (no value) (units unknown) (unknown) Result panel 301 (unknown) (no date) (unknown) [facility] (no value) (units unknown) (unknown) Result panel 302 (unknown) (no date) (unknown) [facility] (no value) (units unknown) (unknown) Result panel 303 (unknown) (no date) (unknown) [facility] (no value) (units unknown) (unknown) Result panel 304 (unknown) (no date) (unknown) [facility] (no value) (units unknown) (unknown) Result panel 305 (unknown) (no date) (unknown) [facility] (no value) (units unknown) (unknown) Result panel 306 (unknown) (no date) (unknown) [facility] (no value) (units unknown) (unknown) Result panel 307 (unknown) (no date) (unknown) [facility] (no value) (units unknown) (unknown) Result panel 308 (unknown) (no date) (unknown) [facility] (no value) (units unknown) (unknown) Result panel 309 (unknown) (no date) (unknown) [facility] (no value) (units unknown) (unknown) Result panel 310 (unknown) (no date) (unknown) [facility] (no value) (units unknown) (unknown) Result panel 311 (unknown) (no date) (unknown) [facility] (no value) (units unknown) (unknown) Result panel 312 (unknown) (no date) (unknown) [facility] (no value) (units unknown) (unknown) Result panel 313 (unknown) (no date) (unknown) (unknown) (no value) (units unknown) (unknown) (unknown) (no date) (unknown) (unknown) 09/06/22 (units unknown) (unknown) (unknown) (no date) (unknown) (unknown) 1. Findings suggest central vascular and mild interstitial congestion. (units unknown) (unknown) (unknown) (no date) (unknown) (unknown) [address] [place] [address] (units unknown) (unknown) (unknown) (no date) (unknown) (unknown) 2. Interstitial thickening can also be seen in viral pneumonitis. (units unknown) (unknown) (unknown) (no date) (unknown) (unknown) 3. Stable cardiomegaly. (units unknown) (unknown) (unknown) (no date) (unknown) (unknown) [id number] (units unknown) (unknown) (unknown) (no date) (unknown) (unknown) Accession Number: [id number] (units unknown) (unknown) (unknown) (no date) (unknown) (unknown) Age/Sex: 57 / F Date of Service: (units unknown) (unknown) (unknown) (no date) (unknown) (unknown) [place] [id number] (units unknown) (unknown) (unknown) (no date) (unknown) (unknown) Approved by: Mattie Way M.D. on 09/06/2022 at 17:03 (units unknown) (unknown) (unknown) (no date) (unknown) (unknown) BNP. (units unknown) (unknown) (unknown) (no date) (unknown) (unknown) Bones and chest wall : No suspicious bony lesions. Overlying soft tissues (units unknown) (unknown) (unknown) (no date) (unknown) (unknown) COMPARISON: [facility], CR, XR CHEST 1V, 07/24/2022, 12:09. (units unknown) (unknown) (unknown) (no date) (unknown) (unknown) Correlate with (units unknown) (unknown) (unknown) (no date) (unknown) (unknown) : 1965 Acct:[id number] (units unknown) (unknown) (unknown) (no date) (unknown) (unknown) Dictated by: Mattie Way M.D. on 09/06/2022 at 17:01 (units unknown) (unknown) (unknown) (no date) (unknown) (unknown) FINDINGS: (units unknown) (unknown) (unknown) (no date) (unknown) (unknown) IMPRESSION: (units unknown) (unknown) (unknown) (no date) (unknown) (unknown) INDICATIONS: SOB (units unknown) (unknown) (unknown) (no date) (unknown) (unknown) [facility] (units unknown) (unknown) (unknown) (no date) (unknown) [...] (unknown) (no date) (unknown) (unknown) Patient: Ester Brewster MR#: [id number] (units unknown) (unknown) (unknown) (no [...] (unknown) wires. (units unknown) (unknown) Result panel 314 (unknown) (no date) (unknown) (unknown) (no value) [...] unknown) (unknown) (unknown) (no date) (unknown) (unknown) [id number] (units unknown) (unknown) (unknown) (no date) (unknown) [...] (unknown) (no date) (unknown) (unknown) : 1965 Acct:[id number] (units unknown) (unknown) (unknown) (no date) (unknown) [...] unknown) (unknown) (unknown) (no date) (unknown) (unknown) [address] [address] (units unknown) (unknown) (unknown) (no date) (unknown) [...] (unknown) (no date) (unknown) (unknown) Patient: Ester Brewster MR#: [id number] (units unknown) (unknown) (unknown) (no [...] (unknown) (no date) (unknown) (unknown) pamabrom [From [facility] ] Allergy Verified 07/06/21 13:33 (units [...] 25 mg tablet 25 mg PO DAILY 03/13/23 03/13/23 (units unknown) (unknown) (unknown) (no date) [...] [employer] patent. (units unknown) (unknown) Result panel 315 (unknown) (no date) (unknown) (unknown) 1.0 % [...] (unknown) (unknown) 93.9 fl (unknown) Result panel 316 (unknown) (no date) (unknown) (unknown) 31 mmol/l [...] (unknown) (unknown) 94 % (unknown) Result panel 317 (unknown) (no date) (unknown) (unknown) < 20 [...] Test not performed ng/ml (unknown) Result panel 318 (unknown) (no date) (unknown) (unknown) < 20 [...] Test not performed ng/ml (unknown) Result panel 319 (unknown) (no date) (unknown) (unknown) < 20 [...] Test not performed ng/ml (unknown) Result panel 320 (unknown) (no date) (unknown) (unknown) 1.3 (units unknown) (unknown) (unknown) (no date) (unknown) (unknown) 15.5 seconds (unknown) (unknown) (no date) (unknown) (unknown) 23 seconds (unknown) (unknown) (no date) (unknown) (unknown) 23 seconds (unknown) Result panel 321 (unknown) (no date) (unknown) (unknown) (no value) [...] unknown) (unknown) (unknown) (no date) (unknown) (unknown) [id number] (units unknown) (unknown) (unknown) (no date) (unknown) [...] (unknown) (no date) (unknown) (unknown) : 1965 Acct:[id number] (units unknown) (unknown) (unknown) (no date) (unknown) [...] unknown) (unknown) (unknown) (no date) (unknown) (unknown) [address] [address] (units unknown) (unknown) (unknown) (no date) (unknown) [...] (no date) (unknown) (unknown) Lymph # (Auto) (6603-9714) /uL (units unknown) (unknown) (unknown) (no date) (unknown) (unknown) Lymph # (Auto) 2700 (9284-0801) /uL (units unknown) (unknown) (unknown) (no date) [...] unknown) (unknown) (unknown) (no date) (unknown) (unknown) Stone # (Auto) (0-900 ) /uL (units unknown) (unknown) (unknown) (no date) (unknown) (unknown) Stone # (Auto) 1000 H (0-900) /uL (units unknown) (unknown) (unknown) (no date) (unknown) (unknown) Stone % (Auto) (3-14) % (units unknown) (unknown) (unknown) (no date) (unknown) (unknown) Stone % (Auto) 9.6 (3-14) % (units unknown) [...] (no date) (unknown) (unknown) Neut # (Auto) (5039-9007) /uL (units unknown) (unknown) (unknown) (no date) (unknown) (unknown) Neut # (Auto) 6300 (6505-4926) /uL (units unknown) (unknown) (unknown) (no date) [...] (unknown) (no date) (unknown) (unknown) Patient: Ester Brewster MR#: [id number] (units unknown) (unknown) (unknown) (no [...] (unknown) (no date) (unknown) (unknown) tereza [From [facility] ] Allergy Verified 07/06/21 13:33 (units [...] [employer] patent. (units unknown) (unknown) Result panel 322 (unknown) (no date) (unknown) (unknown) (no value) [...] unknown) (unknown) (unknown) (no date) (unknown) (unknown) [id number] (units unknown) (unknown) (unknown) (no date) (unknown) [...] (unknown) (no date) (unknown) (unknown) : 1965 Acct:[id number] (units unknown) (unknown) (unknown) (no date) (unknown) [...] unknown) (unknown) (unknown) (no date) (unknown) (unknown) [address] [address] (units unknown) (unknown) (unknown) (no date) (unknown) [...] (no date) (unknown) (unknown) Lymph # (Auto) (3412-1106) /uL (units unknown) (unknown) (unknown) (no date) (unknown) (unknown) Lymph # (Auto) 2700 (4543-0295) /uL (units unknown) (unknown) (unknown) (no date) [...] unknown) (unknown) (unknown) (no date) (unknown) (unknown) Stone # (Auto) (0-900 ) /uL (units unknown) (unknown) (unknown) (no date) (unknown) (unknown) Stone # (Auto) 1000 H (0-900) /uL (units unknown) (unknown) (unknown) (no date) (unknown) (unknown) Stone % (Auto) (3-14) % (units unknown) (unknown) (unknown) (no date) (unknown) (unknown) Stone % (Auto) 9.6 (3-14) % (units unknown) [...] (no date) (unknown) (unknown) Neut # (Auto) (5644-3323) /uL (units unknown) (unknown) (unknown) (no date) (unknown) (unknown) Neut # (Auto) 6300 (6653-7410) /uL (units unknown) (unknown) (unknown) (no date) [...] (unknown) (no date) (unknown) (unknown) Patient: Ester Brewster MR#: [id number] (units unknown) (unknown) (unknown) (no [...] (unknown) (no date) (unknown) (unknown) pamabrom [From [facility] ] Allergy Verified 07/06/21 13:33 (units [...] [employer] patent. (units unknown) (unknown) Result panel 323 (unknown) (no date) (unknown) (unknown) (no value) [...] unknown) (unknown) (unknown) (no date) (unknown) (unknown) [id number] (units unknown) (unknown) (unknown) (no date) (unknown) [...] (unknown) (no date) (unknown) (unknown) : 1965 Acct:[id number] (units unknown) (unknown) (unknown) (no date) (unknown) [...] unknown) (unknown) (unknown) (no date) (unknown) (unknown) [address] [address] (units unknown) (unknown) (unknown) (no date) (unknown) [...] (no date) (unknown) (unknown) Lymph # (Auto) (7846-6140) /uL (units unknown) (unknown) (unknown) (no date) (unknown) (unknown) Lymph # (Auto) 2700 (3712-8163) /uL (units unknown) (unknown) (unknown) (no date) [...] unknown) (unknown) (unknown) (no date) (unknown) (unknown) Stone # (Auto) (0-900 ) /uL (units unknown) (unknown) (unknown) (no date) (unknown) (unknown) Stone # (Auto) 1000 H (0-900) /uL (units unknown) (unknown) (unknown) (no date) (unknown) (unknown) Stone % (Auto) (3-14) % (units unknown) (unknown) (unknown) (no date) (unknown) (unknown) Stone % (Auto) 9.6 (3-14) % (units unknown) [...] (no date) (unknown) (unknown) Neut # (Auto) (0091-7005) /uL (units unknown) (unknown) (unknown) (no date) (unknown) (unknown) Neut # (Auto) 6300 (4394-5721) /uL (units unknown) (unknown) (unknown) (no date) [...] (unknown) (no date) (unknown) (unknown) Patient: Ester Brewster MR#: [id number] (units unknown) (unknown) (unknown) (no [...] (unknown) (unknown) (no date) (unknown) (unknown) Rohini Cerno PA-C [Primary Care Provider] (units unknown) (unknown) [...] (no date) (unknown) (unknown) carlos aabrom [From [facility] ] Allergy Verified 07/06/21 13:33 (units [...] [employer] patent. (units unknown) (unknown) Result panel 324 (unknown) (no date) (unknown) (unknown) (no value) [...] unknown) (unknown) (unknown) (no date) (unknown) (unknown) [id number] (units unknown) (unknown) (unknown) (no date) (unknown) [...] (unknown) (no date) (unknown) (unknown) : 1965 Acct:[id number] (units unknown) (unknown) (unknown) (no date) (unknown) [...] unknown) (unknown) (unknown) (no date) (unknown) (unknown) [address] [address] (units unknown) (unknown) (unknown) (no date) (unknown) [...] (no date) (unknown) (unknown) Lymph # (Auto) (3954-4240) /uL (units unknown) (unknown) (unknown) (no date) (unknown) (unknown) Lymph # (Auto) 2700 (6746-5255) /uL (units unknown) (unknown) (unknown) (no date) [...] unknown) (unknown) (unknown) (no date) (unknown) (unknown) Stone # (Auto) (0-900 ) /uL (units unknown) (unknown) (unknown) (no date) (unknown) (unknown) Stone # (Auto) 1000 H (0-900) /uL (units unknown) (unknown) (unknown) (no date) (unknown) (unknown) Stone % (Auto) (3-14) % (units unknown) (unknown) (unknown) (no date) (unknown) (unknown) Stone % (Auto) 9.6 (3-14) % (units unknown) [...] (no date) (unknown) (unknown) Neut # (Auto) (2251-8712) /uL (units unknown) (unknown) (unknown) (no date) (unknown) (unknown) Neut # (Auto) 6300 (4640-4733) /uL (units unknown) (unknown) (unknown) (no date) [...] (unknown) (no date) (unknown) (unknown) Patient: Ester Brewster MR#: [id number] (units unknown) (unknown) (unknown) (no [...] Dr. Butler. Recommends diuresis, admission here at [place]. (units unknown) (unknown) (unknown) (no date) (unknown) [...] (unknown) (no date) (unknown) (unknown) [facility] [From [facility] ] Allergy Verified 07/06/21 13:33 (units [...] [employer] patent. (units unknown) (unknown) Result panel 325 (unknown) (no date) (unknown) (unknown) (no value) [...] unknown) (unknown) (unknown) (no date) (unknown) (unknown) [id number] (units unknown) (unknown) (unknown) (no date) (unknown) [...] (unknown) (no date) (unknown) (unknown) : 1965 Acct:[id number] (units unknown) (unknown) (unknown) (no date) (unknown) [...] unknown) (unknown) (unknown) (no date) (unknown) (unknown) [address] [address] (units unknown) (unknown) (unknown) (no date) (unknown) [...] (no date) (unknown) (unknown) Lymph # (Auto) (0743-7528) /uL (units unknown) (unknown) (unknown) (no date) (unknown) (unknown) Lymph # (Auto) 2700 (8221-4597) /uL (units unknown) (unknown) (unknown) (no date) [...] unknown) (unknown) (unknown) (no date) (unknown) (unknown) Stone # (Auto) (0-900 ) /uL (units unknown) (unknown) (unknown) (no date) (unknown) (unknown) Stone # (Auto) 1000 H (0-900) /uL (units unknown) (unknown) (unknown) (no date) (unknown) (unknown) Stone % (Auto) (3-14) % (units unknown) (unknown) (unknown) (no date) (unknown) (unknown) Stone % (Auto) 9.6 (3-14) % (units unknown) [...] (no date) (unknown) (unknown) Neut # (Auto) (3396-9835) /uL (units unknown) (unknown) (unknown) (no date) (unknown) (unknown) Neut # (Auto) 6300 (1330-3339) /uL (units unknown) (unknown) (unknown) (no date) [...] (unknown) (no date) (unknown) (unknown) Patient: Ester Brewster MR#: [id number] (units unknown) (unknown) (unknown) (no [...] Dr. Butler. Recommends diuresis, admission here at [facility] [place]. (units unknown) (unknown) (unknown) (no date) (unknown) [...] (unknown) (no date) (unknown) (unknown) tereza [From [facility] ] Allergy Verified 07/06/21 13:33 (units [...] [employer]way patent. (units unknown) (unknown) Result panel 326 (unknown) (no date) (unknown) (unknown) (no value) [...] (unknown) (unknown) (no date) (unknown) (unknown) 18:15 04/25/23 (units unknown) (unknown) (unknown) (no date) [...] unknown) (unknown) (unknown) (no date) (unknown) (unknown) [id number] (units unknown) (unknown) (unknown) (no date) (unknown) [...] (unknown) (no date) (unknown) (unknown) : 1965 Acct:[id number] (units unknown) (unknown) (unknown) (no date) (unknown) [...] unknown) (unknown) (unknown) (no date) (unknown) (unknown) [address] [address] (units unknown) (unknown) (unknown) (no date) (unknown) [...] (no date) (unknown) (unknown) Lymph # (Auto) (9981-8429) /uL (units unknown) (unknown) (unknown) (no date) (unknown) (unknown) Lymph # (Auto) 2700 (0028-3705) /uL (units unknown) (unknown) (unknown) (no date) [...] unknown) (unknown) (unknown) (no date) (unknown) (unknown) Stone # (Auto) (0-900 ) /uL (units unknown) (unknown) (unknown) (no date) (unknown) (unknown) Stone # (Auto) 1000 H (0-900) /uL (units unknown) (unknown) (unknown) (no date) (unknown) (unknown) Stone % (Auto) (3-14) % (units unknown) (unknown) (unknown) (no date) (unknown) (unknown) Stone % (Auto) 9.6 (3-14) % (units unknown) [...] (no date) (unknown) (unknown) Neut # (Auto) (7180-8551) /uL (units unknown) (unknown) (unknown) (no date) (unknown) (unknown) Neut # (Auto) 6300 (1935-9009) /uL (units unknown) (unknown) (unknown) (no date) [...] (unknown) (no date) (unknown) (unknown) Patient: Ester Brewster MR#: [id number] (units unknown) (unknown) (unknown) (no [...] Dr. Butler. Recommends diuresis, admission here at [facility] [place]. (units unknown) (unknown) (unknown) (no date) (unknown) [...] [employer] patent. (units unknown) (unknown) Result panel 327 (unknown) (no date) (unknown) (unknown) (no value) [...] unknown) (unknown) (unknown) (no date) (unknown) (unknown) [id number] (units unknown) (unknown) (unknown) (no date) (unknown) [...] (unknown) (no date) (unknown) (unknown) : 1965 Acct:[id number] (units unknown) (unknown) (unknown) (no date) (unknown) [...] unknown) (unknown) (unknown) (no date) (unknown) (unknown) [address] [address] (units unknown) (unknown) (unknown) (no date) (unknown) [...] (no date) (unknown) (unknown) Lymph # (Auto) (4827-3908) /uL (units unknown) (unknown) (unknown) (no date) (unknown) (unknown) Lymph # (Auto) 2700 (0691-0991) /uL (units unknown) (unknown) (unknown) (no date) [...] unknown) (unknown) (unknown) (no date) (unknown) (unknown) Stone # (Auto) (0-900 ) /uL (units unknown) (unknown) (unknown) (no date) (unknown) (unknown) Stone # (Auto) 1000 H (0-900) /uL (units unknown) (unknown) (unknown) (no date) (unknown) (unknown) Stone % (Auto) (3-14) % (units unknown) (unknown) (unknown) (no date) (unknown) (unknown) Stone % (Auto) 9.6 (3-14) % (units unknown) [...] (no date) (unknown) (unknown) Neut # (Auto) (8554-4749) /uL (units unknown) (unknown) (unknown) (no date) (unknown) (unknown) Neut # (Auto) 6300 (0021-8847) /uL (units unknown) (unknown) (unknown) (no date) [...] (unknown) (no date) (unknown) (unknown) Patient: Ester Brewster MR#: [id number] (units unknown) (unknown) (unknown) (no [...] Dr. Butler. Recommends diuresis, admission here at [facility]. (units unknown) (unknown) (unknown) (no date) (unknown) [...] (unknown) (no date) (unknown) (unknown) pamabrom [From [facility] ] Allergy Verified 07/06/21 13:33 (units [...] Airway patent. (units unknown) (unknown) Result panel 328 (unknown) (no date) (unknown) (unknown) Not Detected (units unknown) (unknown) (unknown) (no date) (unknown) (unknown) Not Detected (units unknown) (unknown) Result panel 329 (unknown) (no date) (unknown) (unknown) (no value) [...] unknown) (unknown) (unknown) (no date) (unknown) (unknown) [id number] (units unknown) (unknown) (unknown) (no date) (unknown) [...] (unknown) (no date) (unknown) (unknown) : 1965 Acct:[id number] (units unknown) (unknown) (unknown) (no date) (unknown) [...] unknown) (unknown) (unknown) (no date) (unknown) (unknown) [address] [address] (units unknown) (unknown) (unknown) (no date) (unknown) [...] unknown) (unknown) (unknown) (no date) (unknown) (unknown) Stone # (Auto) 1000 H (units unknown) (unknown) (unknown) (no date) (unknown) (unknown) Stone # (Auto) (units unknown) (unknown) (unknown) (no date) (unknown) (unknown) Stone % (Auto) 9.6 (units unknown) (unknown) (unknown) (no date) (unknown) (unknown) Stone % (Auto) (units unknown) (unknown) (unknown) (no [...] (unknown) (unknown) (no date) (unknown) (unknown) Patient: Voogd,Ester A MR#: M0003 (units unknown) (unknown) (unknown) (no [...] 24 hr (units unknown) (unknown) Result panel 330 (unknown) (no date) (unknown) (unknown) 1.3 (units unknown) (unknown) (unknown) (no date) (unknown) (unknown) 15.5 seconds (unknown) (unknown) (no date) (unknown) (unknown) 35 seconds (unknown) (unknown) (no date) (unknown) (unknown) 35 seconds (unknown) Result panel 331 (unknown) (no date) (unknown) (unknown) 0.2 e.u./dl [...] (unknown) YELLOW (units unknown) (unknown) Result panel 332 (unknown) (no date) (unknown) (unknown) 0-1 /HPF [...] (unknown) YELLOW (units unknown) (unknown) Result panel 333 (unknown) (no date) (unknown) (unknown) (no value) [...] (unknown) (unknown) (no date) (unknown) (unknown) [address] [facility] (units unknown) (unknown) (unknown) (no date) (unknown) (unknown) [id number] (units unknown) (unknown) (unknown) (no date) (unknown) (unknown) : : [address] : : (units unknown) (unknown) (unknown) (no date) (unknown) (unknown) : : [address] : : (units unknown) (unknown) (unknown) (no [...] unknown) (unknown) (unknown) (no date) (unknown) (unknown) :[facility] ReadingLocation: Weight: 239 lb : (units unknown) (unknown) (unknown) (no date) (unknown) (unknown) :Name: ESTER BREWSTER Study Date: 09/07/2022 Height: 64 in : (units unknown) (unknown) (unknown) (no date) (unknown) (unknown) :Ordering Physician: : (units unknown) (unknown) (unknown) (no date) (unknown) (unknown) :Reason For Study: CHF EXACERBATION : (units unknown) (unknown) (unknown) (no date) (unknown) (unknown) :Referring: JOAQUÍN WAGGONER : (units unknown) (unknown) (unknown) (no date) (unknown) (unknown) Accession Number: [id number] (units unknown) (unknown) (unknown) (no date) (unknown) (unknown) Age/Sex: 57 / F Date of Service: (units unknown) (unknown) (unknown) (no date) (unknown) (unknown) [place] [address] (units unknown) (unknown) (unknown) (no date) (unknown) (unknown) [place]: The left atrium is borderline dilated. There is a catheter/pacemaker (units unknown) (unknown) (unknown) (no date) (unknown) (unknown) : 1965 Acct:[id number] (units unknown) (unknown) (unknown) (no date) (unknown) [...] unknown) (unknown) (unknown) (no date) (unknown) (unknown) [facility] (units unknown) (unknown) (unknown) (no date) (unknown) (unknown) [place] (units unknown) (unknown) (unknown) (no date) (unknown) [...] (unknown) (no date) (unknown) (unknown) Patient: Ester Brewster MR#: [id number] (units unknown) (unknown) (unknown) (no [...] fraction is (units unknown) (unknown) Result panel 334 (unknown) (no date) (unknown) (unknown) (no value) [...] unknown) (unknown) (unknown) (no date) (unknown) (unknown) [address] (units unknown) (unknown) (unknown) (no date) (unknown) [...] (unknown) (unknown) (no date) (unknown) (unknown) ?Ms. Brewster is a 57W with PMH COPD on [...] (unknown) (no date) (unknown) (unknown) : 1965 Acct:[id number] (units unknown) (unknown) (unknown) (no date) (unknown) [...] unknown) (unknown) (unknown) (no date) (unknown) (unknown) [address] [address] (units unknown) (unknown) (unknown) (no date) (unknown) [...] unknown) (unknown) (unknown) (no date) (unknown) (unknown) Stone # (Auto) 1000 H (units unknown) (unknown) (unknown) (no date) (unknown) (unknown) Stone # (Auto) (units unknown) (unknown) (unknown) (no date) (unknown) (unknown) Stone % (Auto) 9.6 (units unknown) (unknown) (unknown) (no date) (unknown) (unknown) Stone % (Auto) (units unknown) (unknown) (unknown) (no [...] (unknown) (no date) (unknown) (unknown) Patient: Ester Brewster MR#: [id number] (units unknown) (unknown) (unknown) (no [...] (unknown) (no date) (unknown) (unknown) pamabrom [From [facility] ] Allergy Verified 07/06/21 13:33 (units [...] unknown) (unknown) (unknown) (no date) (unknown) (unknown) [id number] hr (Mucine x DM) (units unknown) (unknown) [...] (unknown) xray. (units unknown) (unknown) Result panel 335 (unknown) (no date) (unknown) (unknown) 0 /ul [...] (unknown) (unknown) 94.3 fl (unknown) Result panel 336 (unknown) (no date) (unknown) (unknown) 1.24 mg/dl [...] (unknown) (unknown) 98 mmol/l (unknown) Result panel 337 (unknown) (no date) (unknown) (unknown) (no value) [...] unknown) (unknown) (unknown) (no date) (unknown) (unknown) [id number] (units unknown) (unknown) (unknown) (no date) (unknown) [...] Mg/3 Ml Neb (Adult)) 2.5 mg INH [id number] PRN (units unknown) (unknown) (unknown) (no date) (unknown) (unknown) Albuterol/Ipratropiu m (Albuterol/Ipratropiu m 3 Ml Ampul) 3 ml INH [id number] ROMAN (units unknown) (unknown) (unknown) (no date) [...] (unknown) (no date) (unknown) (unknown) : 1965 Acct:[id number] (units unknown) (unknown) (unknown) (no date) (unknown) [...] (unknown) (unknown) Documented By: AM Co-signed By: ISIDORO (units unknown) (unknown) (unknown) (no date) (unknown) [...] unknown) (unknown) (unknown) (no date) (unknown) (unknown) [address] [address] (units unknown) (unknown) (unknown) (no date) (unknown) [...] (no date) (unknown) (unknown) Lymph # (Auto) (3364-3036) /uL (units unknown) (unknown) (unknown) (no date) (unknown) (unknown) Lymph # (Auto) 2700 (5199-6500) /uL (units unknown) (unknown) (unknown) (no date) [...] unknown) (unknown) (unknown) (no date) (unknown) (unknown) Stone # (Auto) (0-900 ) /uL (units unknown) (unknown) (unknown) (no date) (unknown) (unknown) Stone # (Auto) 1000 H (0-900) /uL (units unknown) (unknown) (unknown) (no date) (unknown) (unknown) Stone % (Auto) (3-14) % (units unknown) (unknown) (unknown) (no date) (unknown) (unknown) Stone % (Auto) 9.6 (3-14) % (units unknown) [...] (no date) (unknown) (unknown) Neut # (Auto) (8760-8784) /uL (units unknown) (unknown) (unknown) (no date) (unknown) (unknown) Neut # (Auto) 6300 (8578-7013) /uL (units unknown) (unknown) (unknown) (no date) [...] (unknown) (no date) (unknown) (unknown) Patient: Ester Brewster MR#: M0003 (units unknown) (unknown) (unknown) (no [...] Dr. Butler. Recommends diuresis, admission here at [facility] [place]. (units unknown) (unknown) (unknown) (no date) (unknown) [...] (unknown) (no date) (unknown) (unknown) pamabrom [From [facility] ] Allergy Verified 07/06/21 13:33 (units [...] unknown) (unknown) (unknown) (no date) (unknown) (unknown) [id number] hr (Mucine x DM) (units unknown) (unknown) [...] Airway patent. (units unknown) (unknown) Result panel 338 (unknown) (no date) (unknown) (unknown) (no value) [...] unknown) (unknown) (unknown) (no date) (unknown) (unknown) [address] (units unknown) (unknown) (unknown) (no date) (unknown) [...] (unknown) (no date) (unknown) (unknown) : 1965 Acct:[id number] (units unknown) (unknown) (unknown) (no date) (unknown) [...] unknown) (unknown) (unknown) (no date) (unknown) (unknown) [address] [address] (units unknown) (unknown) (unknown) (no date) (unknown) [...] unknown) (unknown) (unknown) (no date) (unknown) (unknown) Stone # (Auto) 100 (units unknown) (unknown) (unknown) (no date) (unknown) (unknown) Stone # (Auto) 1000 H (units unknown) (unknown) (unknown) (no date) (unknown) (unknown) Stone # (Auto) (units unknown) (unknown) (unknown) (no date) (unknown) (unknown) Stone % (Auto) 1.4 L (units unknown) (unknown) (unknown) (no date) (unknown) (unknown) Stone % (Auto) 9.6 (units unknown) (unknown) (unknown) (no date) (unknown) (unknown) Stone % (Auto) (units unknown) (unknown) (unknown) (no [...] (unknown) (no date) (unknown) (unknown) Patient: Ester Brewster MR#: M0003 (units unknown) (unknown) (unknown) (no [...] (unknown) (no date) (unknown) (unknown) Proxy: Rajat Brewster, (units unknown) (unknown) (unknown) (no date) (unknown) [...] (unknown) (no date) (unknown) (unknown) Ur Specific [place] 1.010 (units unknown) (unknown) (unknown) (no date) (unknown) (unknown) [facility] Specific [place] (units unknown) (unknown) (unknown) (no date) (unknown) [...] (unknown) xray. (units unknown) (unknown) Result panel 339 (unknown) (no date) (unknown) (unknown) (no value) [...] unknown) (unknown) (unknown) (no date) (unknown) (unknown) [address] (units unknown) (unknown) (unknown) (no date) (unknown) [...] (unknown) (no date) (unknown) (unknown) : 1965 Acct:[id number] (units unknown) (unknown) (unknown) (no date) (unknown) [...] unknown) (unknown) (unknown) (no date) (unknown) (unknown) [address] [address] (units unknown) (unknown) (unknown) (no date) (unknown) [...] unknown) (unknown) (unknown) (no date) (unknown) (unknown) Stone # (Auto) 100 (units unknown) (unknown) (unknown) (no date) (unknown) (unknown) Stone # (Auto) 1000 H (units unknown) (unknown) (unknown) (no date) (unknown) (unknown) Stone # (Auto) (units unknown) (unknown) (unknown) (no date) (unknown) (unknown) Stone % (Auto) 1.4 L (units unknown) (unknown) (unknown) (no date) (unknown) (unknown) Stone % (Auto) 9.6 (units unknown) (unknown) (unknown) (no date) (unknown) (unknown) Stone % (Auto) (units unknown) (unknown) (unknown) (no [...] (unknown) (no date) (unknown) (unknown) Patient: Ester Brewster MR#: M0003 (units unknown) (unknown) (unknown) (no [...] (unknown) (no date) (unknown) (unknown) Ur Specific [place] 1.010 (units unknown) (unknown) (unknown) (no date) (unknown) (unknown) Ur Specific [place] (units unknown) (unknown) (unknown) (no date) (unknown) [...] soft today. (units unknown) (unknown) Result panel 340 (unknown) (no date) (unknown) (unknown) (no value) [...] unknown) (unknown) (unknown) (no date) (unknown) (unknown) [address] (units unknown) (unknown) (unknown) (no date) (unknown) [...] (unknown) (no date) (unknown) (unknown) : 1965 Acct:[id number] (units unknown) (unknown) (unknown) (no date) (unknown) [...] unknown) (unknown) (unknown) (no date) (unknown) (unknown) [address] [address] (units unknown) (unknown) (unknown) (no date) (unknown) [...] (unknown) (no date) (unknown) (unknown) Patient: Ester Brewster MR#: M0003 (units unknown) (unknown) (unknown) (no date) (unknown) (unknown) Progress Note (units unknown) (unknown) (unknown) (no date) (unknown) (unknown) Provider: Jerald Sanches D.O. (units unknown) (unknown) (unknown) (no date) (unknown) (unknown) Proxy: Rajat Brewster, (units unknown) (unknown) (unknown) (no date) (unknown) [...] 09/07 unchanged (units unknown) (unknown) Result panel 341 (unknown) (no date) (unknown) (unknown) (no value) [...] unknown) (unknown) (unknown) (no date) (unknown) (unknown) [address] (units unknown) (unknown) (unknown) (no date) (unknown) [...] unknown) (unknown) (unknown) (no date) (unknown) (unknown) [phone]. ) (units unknown) (unknown) (unknown) (no date) [...] (unknown) (unknown) (no date) (unknown) (unknown) ?Ms. Brewster is a 57W with PMH COPD on [...] (unknown) (no date) (unknown) (unknown) : 1965 Acct:[id number] (units unknown) (unknown) (unknown) (no date) (unknown) [...] unknown) (unknown) (unknown) (no date) (unknown) (unknown) [address] [address] (units unknown) (unknown) (unknown) (no date) (unknown) [...] (unknown) (no date) (unknown) (unknown) Patient: Ester Brewster MR#: M0003 (units unknown) (unknown) (unknown) (no [...] (no date) (unknown) (unknown) Reason For Exam: [facility] e health upon discharge (units unknown) (unknown) [...] of poor (units unknown) (unknown) Result panel 342 (unknown) (no date) (unknown) (unknown) (no value) [...] unknown) (unknown) (unknown) (no date) (unknown) (unknown) [address] (units unknown) (unknown) (unknown) (no date) (unknown) [...] unknown) (unknown) (unknown) (no date) (unknown) (unknown) [phone]. ) (units unknown) (unknown) (unknown) (no date) [...] (unknown) (unknown) (no date) (unknown) (unknown) ?Ms. Brewster is a 57W with PMH COPD on [...] (unknown) (no date) (unknown) (unknown) : 1965 Acct:[id number] (units unknown) (unknown) (unknown) (no date) (unknown) [...] unknown) (unknown) (unknown) (no date) (unknown) (unknown) [address] [address] (units unknown) (unknown) (unknown) (no date) (unknown) [...] (unknown) (no date) (unknown) (unknown) Patient: Ester Brewster MR#: M0003 (units unknown) (unknown) (unknown) (no [...] (no date) (unknown) (unknown) Reason For Exam: [facility] e health upon discharge (units unknown) (unknown) [...] unknown) (unknown) Social History date description facility 2022-09-06 00:00 Smokes tobacco daily (finding) [facility] Vital Signs date measurement value units 2022-09-06 00:00 BMI 41.0 kg/m2 2022-09-06 00:00 [...]
[2022-11-03] MEDS ORDERED: ALBUTEROL NEB 2.5 MG/3 ML INH STA ×2 (16:27→17:09)
--- NOTE | 2022-11-03 16:32 | ED Physician Documentation ---
History of Present Illness - Stated complaint Stated Complaint: SOA - Chief complaint Chief Complaint: Resp - Additonal information Additional information: 57-year-old female who has a history of nonoxygen dependent COPD and asthma presents to the emergency department for evaluation of several weeks worsening dyspnea. Reports she was seen by her primary care provider about 2 weeks ago and started on antibiotics without resolution of cough or shortness of air. She has been using a DuoNeb and albuterol nebulizers at home without relief of symptoms. She reports a productive green cough. No fevers. She continues to smoke tobacco daily. Review of Systems Constitutional: denies: Fever Cardiac: denies: Chest pain / pressure, Palpitations Respiratory: reports: Dyspnea, Wheezing GI: reports: Reviewed and negative : reports: Reviewed and negative Skin: reports: Reviewed and negative PD PAST MEDICAL HISTORY - Past Medical History Past Medical History: Yes Cardiovascular: Congestive heart failure, Hypertension, High cholesterol, Coronary artery disease, [place], Atrial fibrillation, Murmur, Arrhythmia Respiratory: Asthma, COPD, Emphysema, Pneumonia, Shortness of breath, Other Neuro: Headaches, Tremors Endocrine/Autoimmune: None GI: GERD 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 , Other : None, Frequency HEENT: Chronic vision loss, Chronic sinusitis, Chronic hearing loss Psych: Depression, Anxiety, Claustrophobia Musculoskeletal: Osteoarthritis, Fatigue, Chronic back pain Derm: None - Past Surgical History Past Surgical History: Yes General: Cholecystectomy, EGD Ortho: Knee replacement /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: Hysterectomy, LEEP (Cervical surgery) Cardiovascular: Cardiac catheterization HEENT: Rhinoplasty - Present Medications Home Medications: Ambulatory Orders Medication Instructions Recorded Confirmed Furosemide 40 mg PO BIDDIURETIC 09/07/20 07/19/22 Apixaban [Eliquis] 5 mg PO BID 10/24/20 07/19/22 Albuterol Sulfate [Proair Hfa 2 puffs INH Q4H PRN #1 inh 10/29/20 07/19/22 Inhaler] Amiodarone [Pacerone] 100 mg PO DAILY 02/04/21 07/19/22 Nitroglycerin [Nitrostat] 0.4 mg PO Q5MIN PRN 03/16/21 07/19/22 EPINEPHrine [Epinephrine] 0.3 mg IM PRN PRN 12/11/21 07/19/22 Glipizide [Glipizide ER] 5 mg PO DAILY 12/11/21 07/20/22 Spironolactone [Aldactone] 25 mg PO DAILY 12/11/21 07/19/22 Cetirizine [ZyrTEC] 10 mg PO DAILY PRN 02/08/22 07/19/22 Fluticasone [Flonase] 2 sprays CLARISA DAILY 02/08/22 07/19/22 Montelukast [Singulair] 10 mg PO QPM PRN 02/08/22 07/19/22 Albuterol 2.5 mg INH RTQ4H PRN #30 ea 02/19/22 07/19/22 Budesonide [Pulmicort] 0.5 mg INH BID #60 ea 02/19/22 07/19/22 Metoprolol Succinate [Toprol Xl] 25 mg PO BID #30 tab 02/19/22 07/19/22 Multivitamin [Theragran] 1 tab PO DAILYWM tab 02/19/22 07/19/22 guaiFENesin [Mucinex] 600 mg PO BID PRN #10 tab 02/19/22 07/19/22 Loperamide HCl [Imodium A-D] 2 mg PO Q6H PRN #12 tablet 07/13/22 07/19/22 Promethazine [Phenergan] 25 mg PO Q6H PRN #15 tab 07/13/22 07/19/22 Ascorbic Acid [Vitamin C] 1,000 mg PO DAILY 07/20/22 07/20/22 Calcium Carbonate/Vitamin D3 1 each PO DAILY 07/20/22 07/20/22 [Calcium 600-Vit D3 800 Tablet] lisinopriL [Zestril] 5 mg PO DAILY 07/20/22 07/20/22 predniSONE [Deltasone] 20 mg PO BID 07/20/22 07/20/22 HYDROcod/ACETAM 5/325 [[place] 5/325] 1 ea PO Q6H PRN #18 tablet 09/29/22 - Allergies Allergies/Adverse Reactions: Allergies Allergy/AdvReac Type Severity Reaction Status Date / Time codeine [Codeine] Allergy Severe Swelling/Hi Verified 11/03/22 16:03 ves erythromycin base Allergy Severe Anaphylaxis Verified 11/03/22 16:03 [Erythromycin Base] gabapentin Allergy Severe Anaphylaxis Verified 11/03/22 16:03 Latex, Natural Rubber Allergy Severe Blisters Verified 11/03/22 16:03 pamabrom [From Midol] Allergy Severe Respiratory Verified 11/03/22 16:03 pyrilamine maleate * Allergy Severe Respiratory Verified 11/03/22 16:03 [From Midol] shellfish derived Allergy Severe Anaphylaxis Verified 11/03/22 16:03 venom-honey bee Allergy Severe Anaphylaxis Verified 09/29/22 14:06 [bee venom (honey bee)] chlorhexidine Allergy Intermediate Rash Verified 11/03/22 16:03 morphine Allergy Respiratory Verified 11/03/22 16:03 ondansetron Allergy Respiratory Verified 07/19/22 08:47 piperacillin [From Zosyn] AdvReac Rash Verified 07/19/22 08:47 tazobactam [From Zosyn] AdvReac Rash Verified 07/19/22 08:47 - Social History Does the pt smoke?: Yes Smoking Status: Current every day smoker Does the pt drink ETOH?: No Does the pt have substance abuse?: No - Immunizations Immunizations are current?: No Immunizations: Other immun not current - POLST Patient has POLST: No POLST Status: Full Code PD ED PE NORMAL - General General: Alert and oriented X 3, No acute distress, Well developed/nourished - HEENT HEENT: Atraumatic, Moist mucous membranes - Neck Neck: Supple, no meningeal sign, No adenopathy - Cardiac Cardiac: RRR, No murmur - Respiratory Respiratory: Clear bilaterally (Diffuse expiratory wheeze). No: No respiratory distress (Mild tachypnea and labored breathing.) - Abdomen Abdomen: Normal bowel sounds, Soft - Back Back: No CVA TTP - Derm Derm: Normal color, Warm and dry - Extremities Extremities: No deformity - Neuro Neuro: Alert and oriented X 3 Eye Opening: Spontaneous Motor: Obeys Commands Verbal: Oriented GCS Score: 15 Results - Vitals Vitals: Vital Signs - 24 hr 11/03/22 11/03/22 11/03/22 16:03 16:20 16:40 Temperature 36.5 C Heart Rate 86 79 89 Respiratory 30 H 26 H 28 H Rate Blood Pressure 148/64 H 110/63 O2 Saturation 94 92 If not protocol : Oxygen Flow, liters/minute 11/03/22 11/03/22 11/03/22 17:41 18:04 18:32 Temperature Heart Rate 86 92 90 Respiratory 23 17 29 H Rate Blood Pressure 91/79 O2 Saturation 93 99 If not protocol 3 3 : Oxygen Flow, liters/minute 11/03/22 18:38 Temperature Heart Rate Respiratory Rate Blood Pressure 96/44 L O2 Saturation If not protocol : Oxygen Flow, liters/minute Oxygen O2 Source [] Room air O2 Source Oxymizer Oxygen Flow Rate 2 - Labs Labs: Laboratory Tests 11/03/22 11/03/22 11/03/22 16:13 16:13 16:13 WBC 12.6 H RBC 5.11 Hgb 16.3 H Hct 49.6 H MCV 97.1 MCH 31.9 H MCHC 32.9 RDW 12.9 Plt Count 286 MPV 10.4 Neut # (Auto) 8.9 H Lymph # (Auto) 2.3 [place] # (Auto) 1.0 Eos # (Auto) 0.3 Baso # (Auto) 0.1 Absolute Nucleated RBC 0.00 Nucleated RBC % 0.0 Sodium 137 Potassium 3.5 Chloride 99 L Carbon Dioxide 31 Anion Gap 7.0 BUN 13 Creatinine 1.0 Estimated GFR (MDRD) 57 L Glucose 109 H Lactic Acid Calcium 9.7 Total Bilirubin 0.5 AST 18 ALT 16 Alkaline Phosphatase 79 B-Natriuretic Peptide 237 H Total Protein 7.9 Albumin 3.9 Globulin 4.0 Albumin/Globulin Ratio 1.0 Lipase 46 Nasal Adenovirus (PCR) Nasal B. parapertussis DNA (PCR) Nasal Coronavir 229E PCR Nasal Coronavir HKU1 PCR Nasal Coronavir NL63 PCR Nasal Coronavir OC43 PCR Nasal Enterovir/Rhinovir PCR Nasal Influenza B PCR Nasal Influenza A PCR Nasal Parainfluen 1 PCR Nasal Parainfluen 2 PCR Nasal Parainfluen 3 PCR Nasal Parainfluen 4 PCR Nasal RSV (PCR) Nasal B.pertussis DNA PCR Nasal C.pneumoniae (PCR) Clarisa Human Metapneumo PCR Nasal M.pneumoniae (PCR) Nasal SARS-CoV-2 (PCR) 11/03/22 11/03/22 18:15 18:30 WBC RBC Hgb Hct MCV MCH MCHC RDW Plt Count MPV Neut # (Auto) Lymph # (Auto) [place] # (Auto) Eos # (Auto) Baso # (Auto) Absolute Nucleated RBC Nucleated RBC % Sodium Potassium Chloride Carbon Dioxide Anion Gap BUN Creatinine Estimated GFR (MDRD) Glucose Lactic Acid 1.7 Calcium Total Bilirubin AST ALT Alkaline Phosphatase B-Natriuretic Peptide Total Protein Albumin Globulin Albumin/Globulin Ratio Lipase Nasal Adenovirus (PCR) NOT DETECTED Nasal B. parapertussis DNA (PCR) NOT DETECTED Nasal Coronavir 229E PCR NOT DETECTED Nasal Coronavir HKU1 PCR NOT DETECTED Nasal Coronavir NL63 PCR NOT DETECTED Nasal Coronavir OC43 PCR NOT DETECTED Nasal Enterovir/Rhinovir PCR NOT DETECTED Nasal Influenza B PCR NOT DETECTED Nasal Influenza A PCR NOT DETECTED Nasal Parainfluen 1 PCR NOT DETECTED Nasal Parainfluen 2 PCR NOT DETECTED Nasal Parainfluen 3 PCR NOT DETECTED Nasal Parainfluen 4 PCR NOT DETECTED Nasal RSV (PCR) NOT DETECTED Nasal B.pertussis DNA PCR NOT DETECTED Nasal C.pneumoniae (PCR) NOT DETECTED Clarisa Human Metapneumo PCR NOT DETECTED Nasal M.pneumoniae (PCR) NOT DETECTED Nasal SARS-CoV-2 (PCR) NOT DETECTED - Rads (name of study) cxr Relevant Findings:: Final report received (Increased vascularity and cardiomegaly suggestive of edema) PD Medical Decision Making - ED course Complexity details: reviewed results, re-evaluated patient, considered differential, d/w patient ED course: 57-year-old female is brought to the emergency department for evaluation of respiratory distress. She has a history of oxygen dependent COPD, typically on 2 L nasal cannula at home. She also continues to smoke tobacco daily. She states that for the last several weeks she has been having worsening shortness of air. She did complete a course of antibiotics recently without resolution in symptoms. EMS noted that she was in severe distress when they arrived though that improved a little bit with a DuoNeb treatment. On presentation to the ER here she has saturations of 88 to 94% on room air. This improved to the high 90s with 4 L facemask/nasal cannula oxygen. She is however very tachypneic with respiratory rate in the mid 30s. She had diffuse expiratory wheezes. I initially gave her a DuoNeb without resolution of symptoms. I followed this with 2 additional albuterol nebulized treatments without resolution of the respiratory distress or wheeze. A chest x-ray suggest some mild volume overload/CHF. Patient has no peripheral edema. I did obtain a CBC, electrolytes and a BNP. Per my interpretation no acute findings. Her BNP today is 278 essentially unchanged from recent. The patient was initially normotensive and based on chest x-ray findings I had plan to give 20 mg of Lasix IV but nursing staff then told me that her blood pressures had become soft then in the 90s over 70s. I reevaluated the patient she may remained labored and alert. A lactic acid was obtained and was not elev ated. lasix administration was held. Patient's respiratory PCR panel is negative. Patient will be admitted to the hospital for COPD exacerbation that may also be coupled with CHF exacerbation as well. Though her BNP is not markedly different from baseline this may be some right-sided heart failure in the setting of COPD. I have spoken with Dr. Valles [facility] telehealth hospitalist who agrees to see, evaluate and admit the patient for further management of her respiratory distress Departure - Departure Disposition: 66 [facility] DC/Johanna Clinical Impression: COPD exacerbation
[2022-11-03] MEDS ORDERED: fentaNYL 100 MCG/2 ML VIAL IVP STA (16:52)
[2022-11-03 16:57] LABS: BASOPHILS # (AUTO) 0.1 10^3/uL (0.0-0.1); BASOPHILS % (AUTO) 0.4 %; EOSINOPHILS # (AUTO) 0.3 10^3/uL (0.0-0.7); EOSINOPHILS % (AUTO) 2.5 %; HCT - HEMATOCRIT 49.6 % (37.0-47.0); HGB - HEMOGLOBIN 16.3 g/dL (12.0-16.0); LYMPHOCYTES # (AUTO) 2.3 10^3/uL (1.5-3.5); LYMPHOCYTES % (AUTO) 18.5 %; MEAN CORPUSCULAR HEMOGLOBIN 31.9 pg (27.0-31.0); MEAN CORPUSCULAR HGB CONC 32.9 g/dL (32.0-36.0); MEAN CORPUSCULAR VOLUME 97.1 fL (81.0-99.0); MEAN PLATELET VOLUME 10.4 fL (7.9-10.8); MONOCYTES % (AUTO) 7.7 %; NEUTROPHILS # (AUTO) 8.9 10^3/uL (1.5-6.6); NEUTROPHILS % (AUTO) 70.7 %; PLT - PLATELET COUNT 286 10^3/uL (130-450); RED BLOOD COUNT 5.11 10^6/uL (4.20-5.40); RED CELL DISTRIBUTION WIDTH 12.9 % (12.0-15.0); WHITE BLOOD COUNT 12.6 x10^3/uL (4.8-10.8)
--- NOTE | 2022-11-03 16:57 | XRAY Report ---
PROCEDURE: Chest 1 View X-Ray INDICATIONS: chest pain TECHNIQUE: One view of the chest was acquired. COMPARISON: Chest x-ray 07/24/2022 FINDINGS: Surgical changes and devices: Pacemaker Lungs and pleura: Increased pulmonary vascularity is present. Mediastinum: Mediastinal contours appear normal. Heart size is enlarged. Bones and chest wall: No suspicious bony lesions. Overlying soft tissues appear unremarkable. IMPRESSION: Increased vascularity and cardiomegaly suggestive of edema. Reviewed by: Tania Kat MD on 11/03/2022 4:56 PM PDT Approved by: Tania Kat MD on 11/03/2022 4:56 PM PDT Station ID: [id number]
[2022-11-03 17:06] LABS: ALBUMIN 3.9 g/dL (3.2-5.5); BILIRUBIN,TOTAL 0.5 mg/dL (0.2-1.0); CALCIUM 9.7 mg/dL (8.5-10.3); POTASSIUM 3.5 mmol/L (3.5-5.0); TOTAL PROTEIN 7.9 g/dL (6.7-8.2)
[2022-11-03] MEDS ORDERED: FUROSEMIDE 20 MG/2 ML VIAL IVP STA (17:42)
[2022-11-03] MEDS ORDERED: cefTRIAXone 1 GM VIAL IVP STA (18:13)
[2022-11-03] MEDS ORDERED: AZITHROMYCIN INJ 500 MG in SODIUM CHLORIDE 0.9% 250 ML IV STA (18:13)
[2022-11-03 19:18] LABS: B. PARAPERTUSSIS- RESP PCR PAN NOT DETECTED; B. PERTUSSIS- RESP PCR PANEL NOT DETECTED; C. PNEUMONIAE- RESP PCR PANEL NOT DETECTED; CORONAVIRUS 229E-RESP PCR NOT DETECTED; CORONAVIRUS HKU1-RESP PCR NOT DETECTED; CORONAVIRUS NL63-RESP PCR NOT DETECTED; CORONAVIRUS OC43-RESP PCR NOT DETECTED; HUMAN METAPNEUMOVIRUS NOT DETECTED; INFLUENZA A- RESP PCR PANEL NOT DETECTED; INFLUENZA B - RESP PCR PANEL NOT DETECTED; PARAINFLUENZA VIRUS 1 NOT DETECTED; PARAINFLUENZA VIRUS 2 NOT DETECTED; PARAINFLUENZA VIRUS 3 NOT DETECTED; PARAINFLUENZA VIRUS 4 NOT DETECTED; RHINOVIRUS/ENTEROVIRUS NOT DETECTED; RSV- RESP PCR PANEL NOT DETECTED; SARS-CoV-2 -RESP PCR PANEL NOT DETECTED
[2022-11-03 19:19] LABS: M. PNEUMONIAE- RESP PCR PANEL NOT DETECTED
--- NOTE | 2022-11-03 19:24 | HISTORY & PHYSICAL EXAMINATION ---
Chief Complaint - Chief Complaint Chief Complaint: Shortness of breath, cough History of Present Illness - Admitted From Admitted From:: ER - History Obtained From Records Reviewed: Yes History obtained from: Patient, staff, chart Exam Limitations: H&P was conducted via video remotely, using Access Cart. - History of Present Illness HPI Comment/Other: Patient is in [place]. Physician is in [place]. No one is at bedside. 57 yo F with h/o COPD on Home 2L NC O2, +tobacco abuse, CAD, HTN, HLD, AFib, DM type 2, Depression/Anxiety, DJD, Chronic Back pain presented to the ER with c/o 2 week h/o increasing Shortness of breath, cough. Pt started having URI symptoms 2 weeks ago with sore throat, coryza, cough. Her cough worsened until she is now bringing up green sputum, has chest pain from cough and is unable to sleep at night d/t cough. Her Shortness of breath has increased. She saw her PCP when she first had symptoms 2 weeks ago and was prescribed antibiotics (no steroids at that time). Her symptoms worsened despite taking antibiotics. She has been using Duonebs multiple times/day w/o imrprovement of her symptoms. No F/C. No abdo pain/N/V. Her throat is still sore, worse on the L side. She has to eat soft foods now. Her L ear is bothering her. She was referred to a Heating Operators Engineer in the past, but has not seen them in >1 year d/t transportation issues. She recently found out from her new insurance company that they will help with transportation to medical appointments, so she plans to make appt in the future. Also, she recently broke her L ankle. She has seen the Orthopedic Surgeon for this and they recommend that she wears the boot and cane that they gave her when she ambulates; she left these at home. She can have partial WB to L foot. Pt has long h/o Depression/Anxiety and was admitted to Psych facility when she was 11 years old. She says that they tried 43 medications for her and she had side effects from all of these. Her PCP recently decreased her dose of Metoprolol, but she doesn't know the current correct dose. Pt was last hospitalized at [facility] for COPD Exacerbation from 07/19-07/24/2022 and then she left AMA. In the ER, SBP 90s, RR 30, SpO2 88-90% RA, 94% 3L NC, Resp panel neg, WBC 12.6, Hgb 16.3, BNP 237 CXR: CMG, increased interstitial edema Pt was given Duonebs, Rocephin/Azithromycin, Prednisone 60 mg PO x 1, Fentanyl 75 mg IV x 1 in the ER. Pt was placed on FM O2 and BIPAP was attempted, but pt refused this. History - Past Medical History Cardiovascular: reports: Congestive heart failure, Hypertension, High cholester ol, Coronary artery disease, [place], Atrial fibrillation, Murmur, Arrhythmia Respiratory: reports: Asthma, COPD, Emphysema, Pneumonia, Shortness of breath, Other Neuro: reports: Headaches, Tremors Endocrine/Autoimmune: reports: None GI: reports: GERD GOVERNMENT AUDITOR: reports: Ectopic , Other : reports: None, Frequency HEENT: reports: Chronic vision loss, Chronic sinusitis, Chronic hearing loss Psych: reports: Depression, Anxiety, Claustrophobia Musculoskeletal: reports: Osteoarthritis, Fatigue, Chronic back pain Derm: reports: None MRSA Hx?: No - Past Surgical History General: reports: Cholecystectomy, EGD Ortho: reports: Knee replacement /GOVERNMENT AUDITOR: reports: Hysterectomy, LEEP (Cervical surgery) Cardiovascular: reports: Cardiac catheterization HEENT: reports: Rhinoplasty - Family & Social History Family History: Mother: Alive and Well, Alzheimer's Disease, Hyperlipidemia, Hypertension, Father: , Cancer, Other family: CVA/TIA, Diabetes, Type 1, DC Family History Comment/Other: To her knowledge, her father from an unknown cancer. She denies a family history of heart disease or diabetes but review of prior records reveal that both her parents had coronary artery disease and diabetes. Living Situation: With family Social History Notes: She lives with her grand-daughter's boyfriend who she is trying to evict. 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 She reports that she quit smoking about a year ago. She started at the age of 7 and smoked up to 1.5 packs a day. She reported she had alcoholism but she quit alcohol use. - Substance History Use: Uses substance without health or social issues: NONE - POLST Patient has POLST: No POLST Status: Full Code Meds/Allgy - Home Medications Home Medications: Ambulatory Orders Medication Instructions Recorded Confirmed Furosemide 40 mg PO BIDDIURETIC 09/07/20 07/19/22 Apixaban [Eliquis] 5 mg PO BID 10/24/20 07/19/22 Albuterol Sulfate [Proair Hfa 2 puffs INH Q4H PRN #1 inh 10/29/20 07/19/22 Inhaler] Amiodarone [Pacerone] 100 mg PO DAILY 02/04/21 07/19/22 Nitroglycerin [Nitrostat] 0.4 mg PO Q5MIN PRN 03/16/21 07/19/22 EPINEPHrine [Epinephrine] 0.3 mg IM PRN PRN 12/11/21 07/19/22 Glipizide [Glipizide ER] 5 mg PO DAILY 12/11/21 07/20/22 Spironolactone [Aldactone] 25 mg PO DAILY 12/11/21 07/19/22 Cetirizine [ZyrTEC] 10 mg PO DAILY PRN 02/08/22 07/19/22 Fluticasone [Flonase] 2 sprays CLARISA DAILY 02/08/22 07/19/22 Montelukast [Singulair] 10 mg PO QPM PRN 02/08/22 07/19/22 Albuterol 2.5 mg INH RTQ4H PRN #30 ea 02/19/22 07/19/22 Budesonide [Pulmicort] 0.5 mg INH BID #60 ea 02/19/22 07/19/22 Metoprolol Succinate [Toprol Xl] 25 mg PO BID #30 tab 02/19/22 07/19/22 Multivitamin [Theragran] 1 tab PO DAILYWM tab 02/19/22 07/19/22 guaiFENesin [Mucinex] 600 mg PO BID PRN #10 tab 02/19/22 07/19/22 Loperamide HCl [Imodium A-D] 2 mg PO Q6H PRN #12 tablet 07/13/22 07/19/22 Promethazine [Phenergan] 25 mg PO Q6H PRN #15 tab 07/13/22 07/19/22 Ascorbic Acid [Vitamin C] 1,000 mg PO DAILY 07/20/22 07/20/22 Calcium Carbonate/Vitamin D3 1 each PO DAILY 07/20/22 07/20/22 [Calcium 600-Vit D3 800 Tablet] lisinopriL [Zestril] 5 mg PO DAILY 07/20/22 07/20/22 predniSONE [Deltasone] 20 mg PO BID 07/20/22 07/20/22 HYDROcod/ACETAM 5/325 [[place] 5/325] 1 ea PO Q6H PRN #18 tablet 09/29/22 - Allergies Allergies/Adverse Reactions: Allergies Allergy/AdvReac Type Severity Reaction Status Date / Time codeine [Codeine] Allergy Severe Swelling/Hi Verified 11/03/22 16:03 ves erythromycin base Allergy Severe Anaphylaxis Verified 11/03/22 16:03 [Erythromycin Base] gabapentin Allergy Severe Anaphylaxis Verified 11/03/22 16:03 Latex, Natural Rubber Allergy Severe Blisters Verified 11/03/22 16:03 pamabrom [From Midol] Allergy Severe Respiratory Verified 11/03/22 16:03 pyrilamine maleate * Allergy Severe Respiratory Verified 11/03/22 16:03 [From Midol] shellfish derived Allergy Severe Anaphylaxis Verified 11/03/22 16:03 venom-honey bee Allergy Severe Anaphylaxis Verified 09/29/22 14:06 [bee venom (honey bee)] chlorhexidine Allergy Intermediate Rash Verified 11/03/22 16:03 morphine Allergy Respiratory Verified 11/03/22 16:03 ondansetron Allergy Respiratory Verified 07/19/22 08:47 piperacillin [From Zosyn] AdvReac Rash Verified 07/19/22 08:47 tazobactam [From Zosyn] AdvReac Rash Verified 07/19/22 08:47 Review of Systems - All Other Systems All Other Systems: reports: Reviewed and negative Exam - Vital Signs Reviewed Vital Signs: Yes Vital Signs: Vital Signs x48h Temp Pulse Resp BP Pulse Ox O2 Flow Rate 11/03/22 18:38 96/44 L 11/03/22 18:32 90 29 H 99 3 11/03/22 18:04 92 17 91/79 93 3 11/03/22 17:41 86 23 11/03/22 16:40 89 28 H 11/03/22 16:20 79 26 H 110/63 92 11/03/22 16:03 36.5 C 86 30 H 148/64 H 94 - Physical Exam General Appearance: positive: No acute distress Eyes Bilateral: positive: No scleral icterus ENT: positive: Other (Attempted so see pharynx, but unable to visualize well via video) Respiratory: positive: Other (Access cart stethoscope not working; per ER Provider: Decreased BS, Diffuse expiratory wheeze, Mild tachypnea and labored b reathing.) Cardiovascular: positive: Other (Access cart stethoscope not working; per ER Provider: RRR, no murmurs) Abdomen: positive: Other (per ER Provider: non-distended, NT, Soft) Extremities: positive: Nml appearance Neurologic/Psychiatric: positive: Oriented x3, CN's nml (2-12), Mood/affect nml Conclusion/Plan - Problem List (1) COPD exacerbation Conclusion/Plan: Acute on Chronic Respiratory failure with hypoxia COPD Exacerbation COPD on Home 2L NC O2 +tobacco abuse Failed outpatient treatment Leukocytosis Shortness of breath Cough Sore throat Tachypnea Hypotension -SBP 90s, RR 30, SpO2 88-90% RA, 94% 3L NC, Resp panel neg, WBC 12.6, Hgb 16.3 -CXR: CMG, increased interstitial edema -Pt was given Duonebs, Rocephin/Azithromycin, Prednisone 60 mg PO x 1, Fentanyl 75 mg IV x 1 in the ER. -Pt was placed on FM O2 and BIPAP was attempted, but pt refused this. -admit to Med Tele -continue O2 support -continue Rocephin/Azithro -continue home medications: Duonebs, Pulmicort MDI -hold home medications: Lisinopril, Spironolactone, Lasix d/t Hypotension -tobacco cessation counseling -needs F/U with Heating Operators Engineer when discharged; SW consult to help arrange CAD HTN HLD AFib HFrEF H/o VFib s/p AICD and PPM placement -BNP 237 -Echocardiogram done February 09, 2022: mild left ventricular enlargement, moderate global hypokinesis with diastolic dysfunction indeterminate, LV Ejection fraction 30 to 35%. -continue home medications: Eliquis, Amiodarone; low dose of Metoprolol as BP tolerates -hold home medications: Lisinopril, Spironolactone, Lasix d/t Hypotension; restart as able -current symptoms more c/w COPD than CHF Exac -monitor Is/Os, telemetry -fluid and Na restriction -Echo ordered L Ankle Fracture -She has seen the Orthopedic Surgeon for this and they recommend that she wears the boot and cane that they gave her when she ambulates; she left these at home. -She can have partial WB to L foot. -asked pt to have FM bring in her boot and cane for when she is able to ambulate -continue outpatient F/U with Orthopedic Surgeon DM type 2 -accuchecks, SS Insulin, Hypoglycemic protocol -hold home medications:Glipizide -check Hgba1c Depression/Anxiety -Pt has long h/o Depression/Anxiety and was admitted to Psych facility when she was 11 years old. She says that they tried 43 medications for her and she had side effects from all of these. -Hydroxyzine PRN -supportive care DJD Chronic Back pain -muscle relaxants, pain meds PRN VTE Prophylaxis: on Eliquis Code Status: Full Code ~Michelle Valles MD Hospitalist - Lab Results Fish Bones: 11/03/22 16:13 11/03/22 16:13
[2022-11-03] MEDS ORDERED: MONTELUKAST 10 MG TABLET PO PRN (19:37)
[2022-11-03] MEDS ORDERED: PROMETHAZINE 25 MG TABLET PO PRN (19:37)
[2022-11-03] MEDS ORDERED: CETIRIZINE 10 MG TABLET PO PRN (19:37)
[2022-11-03] MEDS ORDERED: NITROGLYCERIN SL 0.4 MG TABLET SL PRN (19:37)
[2022-11-03] MEDS ORDERED: ACETAMINOPHEN 325 MG TABLET PO PRN (19:55)
[2022-11-03] MEDS ORDERED: PROCHLORPERAZINE 10 MG/2 ML VIAL IVP PRN (19:55)
[2022-11-03] MEDS ORDERED: SODIUM CHLORIDE FLUSH 0.9% 10 ML SYRINGE IVP PRN (19:55)
[2022-11-03] MEDS ORDERED: EPINEPHrine 1 MG/ML AMP IM PRN (19:58)
[2022-11-03] MEDS ORDERED: tiZANidine 4 MG TABLET PO PRN (21:00)
[2022-11-03] MEDS ORDERED: METOPROLOL SUCCINATE 50 MG TABLET PO SCH (21:00)
[2022-11-03] MEDS: METOPROLOL SUCCINATE 25 MG TABLET PO SCH (21:18)
[2022-11-03] MEDS: HYDROcod/ACETAM 5/325 MG TABLET PO PRN (21:18)
[2022-11-03] MEDS: APIXABAN 5 MG TABLET PO SCH (21:19)
[2022-11-03] MEDS: SODIUM CHLORIDE FLUSH 0.9% 10 ML SYRINGE IVP SCH (21:20)
[2022-11-03] MEDS: INSULIN LISPRO 300 UNIT/3 ML PEN SUBQ SCH (21:44)
[2022-11-03] MEDS: ALBUTEROL NEB 2.5 MG/3 ML INH PRN (23:15)
[2022-11-03] MEDS: BUDESONIDE 0.5 MG/2 ML NEB INH SCH (23:15)
[2022-11-03] MEDS: BENZONATATE 100 MG CAPSULE PO PRN (23:40)
[2022-11-03] MEDS: guaiFENesin 600 MG TABLET PO PRN (23:44)
[2022-11-03] MEDS: hydrOXYzine PAMOATE 25 MG CAPSULE PO PRN (23:44)
[2022-11-04] MEDS ORDERED: IPRATROPIUM/ALBUTEROL 3 ML NEB INH PRN (03:10)
[2022-11-04] MEDS ORDERED: FUROSEMIDE 40 MG TABLET PO SCH (06:00)
[2022-11-04] MEDS: BUDESONIDE 0.5 MG/2 ML NEB INH SCH ×2 (06:05→19:55)
[2022-11-04] MEDS: INSULIN LISPRO 300 UNIT/3 ML PEN SUBQ SCH ×4 (08:05→20:52)
[2022-11-04] MEDS ORDERED: FLUTICASONE NASAL SPRAY NAS SCH (09:00)
[2022-11-04] MEDS ORDERED: cefTRIAXone 1 GM in SODIUM CHLORIDE 0.9% MINIBAG 100 ML IV SCH (09:00)
[2022-11-04] MEDS ORDERED: AMIODARONE 200 MG TABLET PO SCH (09:00)
[2022-11-04] MEDS ORDERED: methylPREDNISolone SUCCINATE 40 MG/ML VIAL IVP SCH (09:00)
[2022-11-04] MEDS ORDERED: lisinopriL 5 MG TABLET PO SCH (09:00)
[2022-11-04] MEDS ORDERED: SPIRONOLACTONE 25 MG TABLET PO SCH (09:00)
[2022-11-04] MEDS ORDERED: ASCORBIC ACID 500 MG TABLET PO SCH (09:00)
[2022-11-04] MEDS ORDERED: cefTRIAXone 1 GM VIAL IVP SCH (09:00)
[2022-11-04 09:27] LABS: ESTIMATED AVERAGE GLUCOSE 154 mg/dL (70-100)
[2022-11-04] MEDS: MULTIVITAMIN TABLET PO SCH (09:35)
[2022-11-04] MEDS: METOPROLOL SUCCINATE 25 MG TABLET PO SCH ×2 (09:35→20:53)
[2022-11-04] MEDS: BENZONATATE 100 MG CAPSULE PO PRN ×2 (09:36→17:40)
[2022-11-04] MEDS: guaiFENesin 600 MG TABLET PO PRN ×2 (09:36→19:58)
[2022-11-04] MEDS: APIXABAN 5 MG TABLET PO SCH ×2 (09:36→20:52)
[2022-11-04] MEDS: SODIUM CHLORIDE FLUSH 0.9% 10 ML SYRINGE IVP SCH ×2 (09:37→17:40)
[2022-11-04] MEDS ORDERED: AZITHROMYCIN INJ 500 MG in SODIUM CHLORIDE 0.9% 250 ML IV SCH (10:00)
--- NOTE | 2022-11-04 10:36 | PHARMACY PROGRESS NOTE ---
- Best Possible Medication History Admit Date and Time: 11/03/221954 Processed by: Pharmacy Medication History completed: Yes Patient Interview: Completed Secondary Source(s): Pharmacy records, Insurance records As the person ultimately responsible for medication therapy, providers are able to order a medication from an existing home medication list in [facility] via the "Reconcile Routine" prior to Confirmation of that medication by lab support service tech. Such practice is discouraged except when the physician, in their clinical judgment, deems that a medical need exists for a medication without regard to previous use.
[2022-11-04] MEDS: ALBUTEROL NEB 2.5 MG/3 ML INH PRN (11:00)
[2022-11-04] MEDS: HYDROcod/ACETAM 5/325 MG TABLET PO PRN ×2 (12:30→19:58)
[2022-11-04] MEDS: HYDROmorphone 1 MG/ML CARPUJECT IVP PRN ×2 (13:09→19:04)
--- NOTE | 2022-11-04 16:18 | PROVIDER PROGRESS NOTE ---
Progress Note November 04, 2022 4:18 PM Very fixated on fluid restriction. Wonders why it is happening. She also does not like the diet that is been ordered which is a soft mechanical diet. And wants me to change all of this. She still significantly short of breath, coughing, wheezing as she sits up in her chair. Because she did not like the diet she had her daughter bring in Aest-om-dpt-Box. Exam: Temperature 38.9, heart rate 57, blood pressure 103/40, respirations 18, she is 93% saturated on 3 L OxyMask. Short statured morbidly obese elderly female, disheveled, unkempt, hoarse voice, audible wheezing even without the stethoscope. Neck is too thick to assess for JVD but is supple Severe wheezing in all lung mathews, rhonchi in all lung mathews, but no use of accessory muscles Regular rate and rhythm without tachycardia Obese abdominal wall, nontender, normal bowel sounds. Extremities have 1+ edema Neurologically alert, oriented, able to sit up and walk over to her chair but significantly short of breath with it. No focal deficits. Labs: A1c is 7% Glucose last night before bedtime was 252. Glucose this morning before breakfast is 132. Assessment/plan 1. Acute respiratory failure on chronic respiratory failure with hypoxia. This patient is on home O2 at 2 L/min. She reported increasing shortness of breath with a congested cough that was nonproductive for the last several days. She is still a current every day smoker. Medications for her ENT and lungs include Flonase nasal spray, Singulair, albuterol via nebulizer, albuterol ProAir inhaler, budesonide. She is very vague about the use of these medications. Cannot really tell me how often she uses them but just "that I do use them". There is an antecedent history of sore throat, fever, eustachian tube dysfunction. Her primary care provider prescribed antibiotics 2 weeks ago when she for started having the symptoms. And in spite of the antibiotics is getting worse. It is gotten to the point where she cannot lay down because every time she lays down she starts to cough and she cannot sleep. Her phlegm has gone from clear to green. Her rib cage hurts tremendously from the coughing. The chest x-ray has increased vascularity and cardiomegaly suggestive of edema. Her exam indicates that there is quite a bit of bronchospasm involved. So I am wondering if she has cardiogenic bronchospasm as well as a viral bronchitis.. Plan: Continue treatment here with albuterol, ceftriaxone, Lasix, steroids, 2. Acute on chronic systolic heart failure. Just by watching her eating fast food, and being very annoyed at fluid restriction, I suspect that this patient is noncompliant at home. She shrugs her shoulders and says "I do what you people tell me to do" but I doubt it. Right now her lisinopril is being held because of hypotension. She is not on a diuretic. She is on Beta-julius. Her last echocardiogram was February 09, 2022. She had mild left ventricular enlargement with global hypokinesis of an ejection fraction of 30 to 35%. Right ventricle is normal in size and function. Because of her overall noncompliance and statistical low rate of survival, her primary care provider did offer her hospice. The patient said "I fired that " And went on to do what she wanted to do. "I am a fighter" no one can tell me that I am going to . Plan: Home medications that are listed for her CHF are Aldactone 25 mg daily, Lasix 80 mg daily, lisinopril 5 mg daily, metoprolol XL 25 mg p.o. twice daily. I will resume Lasix. Hold off on Aldactone for now. Continue lisinopril with parameters for blood pressure. Metoprolol was resumed and metoprolol XL 12.5 mg p.o. twice daily and I will continue that. I will take away the fluid restriction since it is annoying her so tremendously. But if she starts to have more than 2000 cc then, I will then restrict her again. 3. COPD with exacerbation. Continue steroids, Rocephin, azithromycin, DuoNeb every 4 hours as needed, albuterol every 4 hours as needed, Tessalon, Pulmicort, Zyrtec, Flonase, Mucinex, Singulair. I will change the DuoNeb to a fixed scheduled dose as opposed to as needed. And change the albuterol to as needed. 4. Tobacco abuse. I did offer her a nicotine patch and she declined at this time. 5. Left ankle fracture. It is recommended that she wear a boot and use a cane. However she left these things at home. Plan: Partial weightbearing to left foot Family still has not brought in her boot and we will reask again Follow-up with orthopedic surgeon in the outpatient setting 6. Type 2 diabetes mellitus, controlled, without long-term use of insulin At home she is on glipizide extended release 5 mg daily. The 7% indicates that she is diet controlled. Here she is on sliding scale insulin. Glucose yesterday she was 252. Today she is 132 and 168. Plan: No change in sliding scale insulin at this time.I will change her diet from the mechanical soft that was ordered to a 3 choice carb restricted diet. She will also be on low-sodium. 7. Chronic atrial fibrillation. Rate is currently controlled. Patient is on amiodarone and Eliquis at home and those have been resumed here. 8. Hypertension. Blood pressure is currently low. Systolics have been 102, 109. Lisinopril being held with parameters.
[2022-11-04] MEDS: FUROSEMIDE 20 MG/2 ML VIAL IVP SCH (17:40)
[2022-11-04] MEDS: hydrOXYzine PAMOATE 25 MG CAPSULE PO PRN (19:20)
[2022-11-04] MEDS: PHENOL THROAT SPRAY 177 ML MM PRN ×2 (19:39→22:55)
[2022-11-04] MEDS: BENZOCAINE/MENTHOL LOZENGE MM PRN (19:58)
[2022-11-05] MEDS: SODIUM CHLORIDE FLUSH 0.9% 10 ML SYRINGE IVP SCH (00:22)
[2022-11-05] MEDS: HYDROcod/ACETAM 5/325 MG TABLET PO PRN ×2 (00:34→07:53)
[2022-11-05] MEDS: BENZOCAINE/MENTHOL LOZENGE MM PRN (00:34)
[2022-11-05] MEDS: HYDROmorphone 1 MG/ML CARPUJECT IVP PRN (02:56)
[2022-11-05] MEDS: FUROSEMIDE 20 MG/2 ML VIAL IVP SCH (05:50)
[2022-11-05 06:09] LABS: BASOPHILS % (AUTO) 0.2 %; EOSINOPHILS % (AUTO) 0.1 %; HCT - HEMATOCRIT 42.2 % (37.0-47.0); HGB - HEMOGLOBIN 13.8 g/dL (12.0-16.0); LYMPHOCYTES # (AUTO) 1.6 10^3/uL (1.5-3.5); LYMPHOCYTES % (AUTO) 11.5 %; MEAN CORPUSCULAR HGB CONC 32.7 g/dL (32.0-36.0); MEAN CORPUSCULAR VOLUME 97.9 fL (81.0-99.0); MEAN PLATELET VOLUME 10.4 fL (7.9-10.8); MONOCYTES # (AUTO) 0.9 10^3/uL (0.0-1.0); MONOCYTES % (AUTO) 6.7 %; NEUTROPHILS # (AUTO) 11.5 10^3/uL (1.5-6.6); NEUTROPHILS % (AUTO) 81.1 %; PLT - PLATELET COUNT 234 10^3/uL (130-450); RED BLOOD COUNT 4.31 10^6/uL (4.20-5.40); WHITE BLOOD COUNT 14.1 x10^3/uL (4.8-10.8)
[2022-11-05 06:21] LABS: CALCIUM 9.3 mg/dL (8.5-10.3); CREATININE 1.2 mg/dL (0.4-1.0); POTASSIUM 3.8 mmol/L (3.5-5.0)
[2022-11-05] MEDS: ALBUTEROL NEB 2.5 MG/3 ML INH PRN (07:09)
[2022-11-05] MEDS: BUDESONIDE 0.5 MG/2 ML NEB INH SCH (07:09)
[2022-11-05] MEDS: BENZONATATE 100 MG CAPSULE PO PRN (07:53)
[2022-11-05] MEDS: guaiFENesin 600 MG TABLET PO PRN (07:53)
[2022-11-05] MEDS: MULTIVITAMIN TABLET PO SCH (07:53)
[2022-11-05] MEDS: INSULIN LISPRO 300 UNIT/3 ML PEN SUBQ SCH (07:54)
[2022-11-05 08:00] VITALS: BP 121/49
--- NOTE | 2022-11-05 12:37 | DISCHARGE SUMMARY ---
"Discharge Summary Admit Date: 11/03/22 Discharge Date: 11/05/22 Discharging Provider: Loretta Coles MD Primary Care Provider: RANDY Villagomez Code Status: Attempt Resuscitation Condition at Discharge: Fair Discharge Disposition: 07 Against Medical Advice - DIAGNOSES Discharge Diagnoses with Status of Each Condition: 1. Acute respiratory failure on chronic respiratory failure with hypoxia 2. COPD with exacerbation 3. Acute on chronic systolic heart failure 4. Tobacco abuse 5. Left ankle fracture prior to admission 6. Type 2 diabetes mellitus, controlled, with long-term use of insulin 7. Chronic atrial fibrillation 8. Hypertension - HPI History of Present Illness: Patient is in [place]. Physician is in [place]. No one is at bedside. 57 yo F with h/o COPD on Home 2L NC O2, +tobacco abuse, CAD, HTN, HLD, AFib, DM type 2, Depression/Anxiety, DJD, Chronic Back pain presented to the ER with c/o 2 week h/o increasing Shortness of breath, cough. Pt started having URI symptoms 2 weeks ago with sore throat, coryza, cough. Her cough worsened until she is now bringing up green sputum, has chest pain from cough and is unable to sleep at night d/t cough. Her Shortness of breath has increased. She saw her PCP when she first had symptoms 2 weeks ago and was prescribed antibiotics (no steroids at that time). Her symptoms worsened despite taking antibiotics. She has been using Duonebs multiple times/day w/o imrprovement of her symptoms. No F/C. No abdo pain/N/V. Her throat is still sore, worse on the L side. She has to eat soft foods now. Her L ear is bothering her. She was referred to a [facility] in the past, but has not seen them in >1 year d/t transportation issues. She recently found out from her new insurance company that they will help with transportation to medical appointments, so she plans to make appt in the future. Also, she recently broke her L ankle. She has seen the Orthopedic Surgeon for this and they recommend that she wears the boot and cane that they gave her when she ambulates; she left these at home. She can have partial WB to L foot. Pt has long h/o Depression/Anxiety and was admitted to Psych facility when she was 11 years old. She says that they tried 43 medications for her and she had side effects from all of these. Her PCP recently decreased her dose of Metoprolol, but she doesn't know the current correct dose. Pt was last hospitalized at [facility] for COPD Exacerbation from 07/19-07/24/2022 and then she left AMA. In the ER, SBP 90s, RR 30, SpO2 88-90% RA, 94% 3L NC, Resp panel neg, WBC 12.6, Hgb 16.3, BNP 237 CXR: CMG, increased interstitial edema Pt was given Duonebs, Rocephin/Azithromycin, Prednisone 60 mg PO x 1, Fentanyl 75 mg IV x 1 in the ER. Pt was placed on FM O2 and BIPAP was attempted, but pt refused this. History - Past Medical History Cardiovascular: reports: Congestive heart failure, Hypertension, High cholesterol, Coronary artery disease, [place], Atrial fibrillation, Murmur, Arrhythmia Respiratory: reports: Asthma, COPD, Emphysema, Pneumonia, Shortness of breath, Other Neuro: reports: Headaches, Tremors Endocrine/Autoimmune: reports: None GI: reports: GERD COST ENGINEER: reports: Ectopic , Other : reports: None, Frequency HEENT: reports: Chronic vision loss, Chronic sinusitis, Chronic hearing loss Psych: reports: Depression, Anxiety, Claustrophobia Musculoskeletal: reports: Osteoarthritis, Fatigue, Chronic back pain Derm: reports: None MRSA Hx?: No - Past Surgical History General: reports: Cholecystectomy, EGD Ortho: reports: Knee replacement /COST ENGINEER: reports: Hysterectomy, LEEP (Cervical surgery) Cardiovascular: reports: Cardiac catheterization HEENT: reports: Rhinoplasty - CONSULTS | PROCEDURES Procedures: Chest x-ray had increased vascularity and cardiomegaly suggestive of edema Blood cultures are negative from admission - HOSPITAL COURSE Hospital Course: The patient was placed on empiric antibiotic therapy for her emphysema and bronchitis that was quite evident with severe wheezing and cough. It was also recognized that she has a history of congestive heart failure and had evidence of fluid overload on chest x-ray. She was treated with Lasix IV push twice daily for this. And Toprol-XL 12.5 twice daily. Her atrial fibrillation was treated with the metoprolol, and Eliquis. Because she was hypotensive, Toprol- XL was reduced from 25 to12.5 twice daily. She was reminded about her ankle. We asked twice to have her boot brought in so that she can ambulate as instructed by orthopedics. During her stay, she tells me that family was unable to bring in the boot. I did point out to her that her family was bringing her Twyw-na-bka-Box, and was there any possibility they could swing by her house to bring up the boot while they brought in her Ylgi-rt-vvq-Box. The patient stated it was not likely She still had severe spasmodic cough on the evening of the . Coughing was severe enough that she sometimes had gag reflex induced with emesis. Throughout her stay she was very frustrated by the dietary restrictions of her diabetes and congestive heart failure. She did not want to be in a car restricted diet nor did she want to be on a low-salt diet. She kept on repeatedly asking for a diet change and I declined. On the day of discharge she asked 1 more time for more salt. And when I declined again she said that she was leaving AMA. I did explain to her that salt diet, especially in a fast food diet which her family was bringing into her, was really bad for her heart. It caused water retention, and water retention would make her CHF and her emphysema worse. She disagreed. As such the patient left AMA. The day before discharge wheezing was still moderate. On the day of discharge wheezing was still present. Voice was hoar se. Mild rhinorrhea. Spasmodic coughing noted on the evening of the was not present. With her requesting dietary changes, she was not tachypneic, using her accessory muscles. And able to put together 2 or 3 sentences without dyspnea on exertion.She was able to walk down the hallway, and walk across the hospital parking lot on her own. She is on 2 L nasal cannula at home. Here, when she left AMA, she was on a 4 L OxyMask. I did explain to her that hypoxemia can cause brain damage, coronary ischemia, sometimes outright risk for stroke and MA. She told me that she was fine. This was not going to happen to her. I asked her to please resume her usual home medications that she had pr escriptions for. Please see her primary care provider in follow-up. - ALLERGIES Allergies/Adverse Reactions: Allergies Allergy/AdvReac Type Severity Reaction Status Date / Time codeine [Codeine] Allergy Severe Swelling/Hi Verified 11/03/22 16:03 ves erythromycin base Allergy Severe Anaphylaxis Verified 11/03/22 16:03 [Erythromycin Base] gabapentin Allergy Severe Anaphylaxis Verified 11/03/22 16:03 Latex, Natural Rubber Allergy Severe Blisters Verified 11/03/22 16:03 pamabrom [From Midol] Allergy Severe Respiratory Verified 11/03/22 16:03 pyrilamine maleate * Allergy Severe Respiratory Verified 11/03/22 16:03 [From Midol] shellfish derived Allergy Severe Anaphylaxis Verified 11/03/22 16:03 venom-honey bee Allergy Severe Anaphylaxis Verified 09/29/22 14:06 [bee venom (honey bee)] chlorhexidine Allergy Intermediate Rash Verified 11/03/22 16:03 morphine Allergy Respiratory Verified 11/03/22 16:03 ondansetron Allergy Respiratory Verified 07/19/22 08:47 piperacillin [From Zosyn] AdvReac Rash Verified 07/19/22 08:47 tazobactam [From Zosyn] AdvReac Rash Verified 07/19/22 08:47 - MEDICATIONS Home Medications: Ambulatory Orders Medication Instructions Recorded Confirmed Furosemide 80 mg PO DAILY 09/07/20 11/04/22 Apixaban [Eliquis] 5 mg PO BID 10/24/20 11/04/22 Albuterol Sulfate [Proair Hfa 2 puffs INH Q4H PRN #1 inh 10/29/20 11/04/22 Inhaler] Amiodarone [Pacerone] 100 mg PO DAILY 02/04/21 11/04/22 Nitroglycerin [Nitrostat] 0.4 mg PO Q5MIN PRN 03/16/21 11/04/22 EPINEPHrine [Epinephrine] 0.3 mg IM PRN PRN 12/11/21 11/04/22 Glipizide [Glipizide ER] 5 mg PO DAILY 12/11/21 11/04/22 Spironolactone [Aldactone] 25 mg PO DAILY 12/11/21 11/04/22 Cetirizine [ZyrTEC] 10 mg PO DAILY PRN 02/08/22 11/04/22 Fluticasone [Flonase] 2 sprays CLARISA DAILY 02/08/22 11/04/22 Montelukast [Singulair] 10 mg PO QPM 02/08/22 11/04/22 Albuterol 2.5 mg INH RTQ4H PRN #30 ea 02/19/22 11/04/22 Budesonide [Pulmicort] 0.5 mg INH BID #60 ea 02/19/22 11/04/22 Metoprolol Succinate [Toprol Xl] 25 mg PO BID #30 tab 02/19/22 11/04/22 Multivitamin [Theragran] 1 tab PO DAILYWM tab 02/19/22 11/04/22 Loperamide HCl [Imodium A-D] 2 mg PO Q6H PRN #12 tablet 07/13/22 11/04/22 Promethazine [Phenergan] 25 mg PO Q6H PRN #15 tab 07/13/22 11/04/22 Ascorbic Acid [Vitamin C] 1,000 mg PO DAILY 07/20/22 11/04/22 Calcium Carbonate/Vitamin D3 1 each PO DAILY 07/20/22 11/04/22 [Calcium 600-Vit D3 800 Tablet] lisinopriL [Zestril] 5 mg PO DAILY 07/20/22 11/04/22 - LABS Result Diagrams: 11/05/22 05:07 11/05/22 05:07"
== END 2022-11-05 09:00 | disposition left against medical advice (07) | DRG 189 ==
LOC: ED 15:58 → MS2 19:55
PROVIDERS: ADMIT Internal Medicine; ATTEND Specialist
DX: J96.21 Acute and chronic respiratory failure with hypoxia (principal); I50.23 Acute on chronic systolic (congestive) heart failure; I50.9 Heart failure, unspecified; Z68.41 Body mass index [BMI] 40.0-44.9, adult; I48.20 Chronic atrial fibrillation, unspecified; Z20.822 Contact with and (suspected) exposure to COVID-19; Z99.81 Dependence on supplemental oxygen; R06.03 Acute respiratory distress; J43.9 Emphysema, unspecified; I11.0 Hypertensive heart disease with heart failure; J40 Bronchitis, not specified as acute or chronic; I25.10 Atherosclerotic heart disease of native coronary artery without angina pectoris; E78.5 Hyperlipidemia, unspecified; E11.9 Type 2 diabetes mellitus without complications; F32.A Depression, unspecified; F41.9 Anxiety disorder, unspecified; Z53.29 Procedure and treatment not carried out because of patient's decision for other reasons; Z79.01 Long term (current) use of anticoagulants; Z79.84 Long term (current) use of oral hypoglycemic drugs; S82.892A Other fracture of left lower leg, initial encounter for closed fracture; X58.XXXA Exposure to other specified factors, initial encounter; F17.200 Nicotine dependence, unspecified, uncomplicated; G89.29 Other chronic pain; M54.9 Dorsalgia, unspecified; M19.90 Unspecified osteoarthritis, unspecified site; E66.01 Morbid (severe) obesity due to excess calories; J98.01 Acute bronchospasm; I95.9 Hypotension, unspecified
CPT/HCPCS: 36415; 71045; 80048; 80053; 83036; 83605; 83690; 83880; 85025; 87040; 87633; 94640; 96365; 96375; 99285; A9270; J1170; J7512; J7626; 82947; 84145

== ENCOUNTER 2022-12-23 19:29 | Outpatient (CLI) | payer MEDICARE, MEDICAID | END 2022-12-23 23:59 | disposition short-term general hospital (02) | LOC: EMS 19:29 | DX: I47.20 Ventricular tachycardia, unspecified (principal); I48.91 Unspecified atrial fibrillation; I44.7 Left bundle-branch block, unspecified; Z95.810 Presence of automatic (implantable) cardiac defibrillator | CPT/HCPCS: A0425; A0427 ==

== ENCOUNTER 2023-02-14 13:51 | Outpatient (CLI) | payer MEDICARE, MEDICAID ==
--- NOTE | 2023-02-14 17:30 | XRAY Report ---
PROCEDURE: Ankle 3 View RT INDICATIONS: RIGHT ANKLE FRACTURE TECHNIQUE: 3 views of the ankle were acquired. COMPARISON: 01/30/2023 and 10/04/2022. FINDINGS: Bones: Transverse fracture through distal portion of lateral malleolus is again seen and unchanged. No new fracture or dislocation. Ankle mortise is normally aligned. Well-defined plantar and dorsal c alcaneal enthesophytes are seen. No suspicious bony lesions. Soft tissues: No tibiotalar joint effusion. Achilles tendon appears normal. IMPRESSION: Stable appearance of minimally displaced lateral malleolus tip fracture. No new fracture or dislocation. Stable ankle alignment. Reviewed by: Edgar Bueno MD on 02/14/2023 5:29 PM PDT Approved by: Edgar Bueno MD on 02/14/2023 5:29 PM PDT Station ID: [id number]
== END 2023-02-14 23:59 | disposition home or self-care (01) ==
LOC: DI.WOS 13:51
PROVIDERS: ATTEND Orthopaedic Surgery
DX: S82.64XD Nondisplaced fracture of lateral malleolus of right fibula, subsequent encounter for closed fracture with routine healing (principal)

== ENCOUNTER 2023-02-15 16:31 | Outpatient (CLI) | payer MEDICARE, MEDICAID ==
[2023-02-15 16:47] LABS: BASOPHILS % (AUTO) 0.4 %; EOSINOPHILS # (AUTO) 0.1 10^3/uL (0.0-0.7); EOSINOPHILS % (AUTO) 1.4 %; HGB - HEMOGLOBIN 15.4 g/dL (12.0-16.0); LYMPHOCYTES # (AUTO) 2.2 10^3/uL (1.5-3.5); LYMPHOCYTES % (AUTO) 24.4 %; MEAN CORPUSCULAR HEMOGLOBIN 31.6 pg (27.0-31.0); MEAN CORPUSCULAR HGB CONC 32.8 g/dL (32.0-36.0); MEAN CORPUSCULAR VOLUME 96.5 fL (81.0-99.0); MEAN PLATELET VOLUME 10.2 fL (7.9-10.8); MONOCYTES # (AUTO) 0.7 10^3/uL (0.0-1.0); MONOCYTES % (AUTO) 7.5 %; PLT - PLATELET COUNT 226 10^3/uL (130-450); RED BLOOD COUNT 4.87 10^6/uL (4.20-5.40); RED CELL DISTRIBUTION WIDTH 12.8 % (12.0-15.0)
[2023-02-15 17:28] LABS: CALCIUM 9.8 mg/dL (8.5-10.3); CREATININE 0.9 mg/dL (0.6-1.3); POTASSIUM 3.8 mmol/L (3.5-4.5)
== END 2023-02-15 16:32 | disposition home or self-care (01) ==
LOC: LAB 16:31
PROVIDERS: ATTEND Internal Medicine Cardiovascular Disease
DX: I42.8 Other cardiomyopathies (principal)
CPT/HCPCS: 36415; 80048; 85025

== ENCOUNTER 2023-06-19 12:20 | Outpatient (CLI) | payer MEDICARE, MEDICAID ==
[2023-06-19 18:22] LABS: BASOPHILS % (AUTO) 0.5 %; EOSINOPHILS # (AUTO) 0.2 10^3/uL (0.0-0.7); EOSINOPHILS % (AUTO) 2.3 %; HCT - HEMATOCRIT 48.2 % (37.0-47.0); HGB - HEMOGLOBIN 15.3 g/dL (12.0-16.0); LYMPHOCYTES % (AUTO) 24.1 %; MEAN CORPUSCULAR HEMOGLOBIN 32.1 pg (27.0-31.0); MEAN CORPUSCULAR HGB CONC 31.7 g/dL (32.0-36.0); MEAN PLATELET VOLUME 10.5 fL (7.9-10.8); MONOCYTES # (AUTO) 0.7 10^3/uL (0.0-1.0); MONOCYTES % (AUTO) 8.2 %; NEUTROPHILS # (AUTO) 5.3 10^3/uL (1.5-6.6); NEUTROPHILS % (AUTO) 64.7 %; PLT - PLATELET COUNT 229 10^3/uL (130-450); RED BLOOD COUNT 4.77 10^6/uL (4.20-5.40); RED CELL DISTRIBUTION WIDTH 13.2 % (12.0-15.0); WHITE BLOOD COUNT 8.2 x10^3/uL (4.8-10.8)
[2023-06-19 18:48] LABS: ALBUMIN 3.7 g/dL (3.2-5.5); ALBUMIN/GLOBULIN RATIO 1.4 (1.0-2.2); BILIRUBIN,TOTAL 0.4 mg/dL (0.2-1.0); CALCIUM 9.6 mg/dL (8.5-10.3); TOTAL PROTEIN 6.3 g/dL (6.4-8.9)
[2023-06-19 20:04] LABS: ESTIMATED AVERAGE GLUCOSE 131 mg/dL (70-100); HEMOGLOBIN A1c% 6.2 % (4.27-6.07)
== END 2023-06-19 12:21 | disposition home or self-care (01) ==
LOC: LAB.N 12:20
PROVIDERS: ATTEND Nurse Practitioner Family
DX: E11.22 Type 2 diabetes mellitus with diabetic chronic kidney disease (principal); N18.32 Chronic kidney disease, stage 3b
CPT/HCPCS: 36415; 80053; 83036; 85025

== ENCOUNTER 2023-07-18 11:50 | Outpatient (CLI) | payer MEDICARE, MEDICAID | END 2023-07-18 23:59 | disposition EMS.NT | LOC: EMS 11:50 | DX: R42 Dizziness and giddiness (principal) ==

== ENCOUNTER 2023-07-25 14:14 | Outpatient (CLI) | payer MEDICARE, MEDICAID | END 2023-07-25 23:59 | disposition critical access hospital (66) | LOC: EMS 14:14 | DX: M25.522 Pain in left elbow (principal); M25.512 Pain in left shoulder; M25.532 Pain in left wrist; M25.572 Pain in left ankle and joints of left foot; M25.562 Pain in left knee; R07.1 Chest pain on breathing; Z79.01 Long term (current) use of anticoagulants; V00.831A Fall from motorized mobility scooter, initial encounter; Y92.029 Unspecified place in mobile home as the place of occurrence of the external cause | CPT/HCPCS: A0425; A0429 ==

== ENCOUNTER 2023-07-25 14:40 | Emergency (ER) | payer MEDICARE, MEDICAID ==
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
[2023-07-25] MEDS: ACETAMINOPHEN 500 MG TABLET PO STA (15:47)
[2023-07-25 16:02] VITALS: O2SAT 93
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
--- NOTE | 2023-07-25 16:14 | CT Report ---
PROCEDURE: Head WO INDICATIONS: head injury/eliquis TECHNIQUE: Noncontrast 4.5 mm thick angled axial sections acquired from the foramen magnum to the vertex. For r adiation dose reduction, the following was used: automated exposure control, adjustment of mA and/or kV according to patient size. COMPARISON: None. FINDINGS: Image quality: Excellent. CSF spaces: Basal cisterns are patent. No extra-axial fluid collections. Ventricles are normal in size and shape. Brain: No midline shift. No intracranial masses or hemorrhage. Garcia-white matter interface is norm al. Skull and face: Calvarium and visualized facial bones are intact, without suspicious lesions. Sinuses: Frothy air-fluid level in the visualized left maxillary sinus. Mastoids are clear. IMPRESSION: No acute intracranial disease process. Reviewed by: Mara Payne MD, PhD on 07/25/2023 4:13 PM PDT Approved by: Mara Payne MD, PhD on 07/25/2023 4:13 PM PDT Station ID: [id number]
--- NOTE | 2023-07-25 16:17 | CT Report ---
PROCEDURE: Cervical Spine WO INDICATIONS: head injury/pain TECHNIQUE: Noncontrast 3 mm thick sections acquired from the skull base to the T4 level. Sagittal and coronal r eformats were then constructed. For radiation dose reduction, the following was used: automated exp osure control, adjustment of mA and/or kV according to patient size. COMPARISON: CT cervical spine 12/10/2021. FINDINGS: Image quality: Excellent. Bones: No fractures or dislocations. Visualized superior ribs are intact. Spine degenerative disc d isease and facet arthropathy are noted. Soft tissues: Prevertebral soft tissues are normal in thickness. No paravertebral hematomas. No ap ical pneumothoraces. Cardiac pacer leads. IMPRESSION: No fracture. No acute osseous lesion. If there is continued clinical concern for pathology, then MRI should be considered for further evaluation. Reviewed by: Mara Payne MD, PhD on 07/25/2023 4:15 PM PDT Approved by: Mara Payne MD, PhD on 07/25/2023 4:15 PM PDT Station ID: [id number]
[2023-07-25 16:59] VITALS: BP 100/49
[2023-07-25] MEDS: LIDOCAINE PATCH 5% TOP STA (17:00)
== END 2023-07-25 17:11 | disposition home or self-care (01) ==
LOC: EDUNIT# → ED 14:40
DX: S46.912A Strain of unspecified muscle, fascia and tendon at shoulder and upper arm level, left arm, initial encounter (principal); V00.141A Fall from scooter (nonmotorized), initial encounter; I10 Essential (primary) hypertension; I48.91 Unspecified atrial fibrillation; Z79.01 Long term (current) use of anticoagulants; F17.200 Nicotine dependence, unspecified, uncomplicated
CPT/HCPCS: 70450; 72125; 73060; 73090; 73502; 73590; 99284; A9270

== ENCOUNTER 2023-10-02 08:00 | Outpatient (CLI) | payer MEDICARE, MEDICAID | END 2023-10-02 23:59 | disposition home or self-care (01) | LOC: LAB.WCP 08:00 | PROVIDERS: ATTEND Physician Assistant Medical | DX: N39.0 Urinary tract infection, site not specified (principal) | CPT/HCPCS: 87086; 87181 ==

== ENCOUNTER 2023-10-03 15:23 | Outpatient (CLI) | payer MEDICARE, MEDICAID ==
[2023-10-03 17:43] LABS: BASOPHILS # (AUTO) 0.1 10^3/uL (0.0-0.1); BASOPHILS % (AUTO) 0.5 %; EOSINOPHILS # (AUTO) 0.1 10^3/uL (0.0-0.7); HCT - HEMATOCRIT 50.1 % (37.0-47.0); HGB - HEMOGLOBIN 15.8 g/dL (12.0-16.0); LYMPHOCYTES % (AUTO) 15.9 %; MEAN CORPUSCULAR HEMOGLOBIN 30.9 pg (27.0-31.0); MEAN CORPUSCULAR HGB CONC 31.5 g/dL (32.0-36.0); MEAN PLATELET VOLUME 10.5 fL (7.9-10.8); NEUTROPHILS # (AUTO) 9.5 10^3/uL (1.5-6.6); NEUTROPHILS % (AUTO) 74.1 %; PLT - PLATELET COUNT 272 10^3/uL (130-450); RED BLOOD COUNT 5.11 10^6/uL (4.20-5.40); RED CELL DISTRIBUTION WIDTH 13.9 % (12.0-15.0); WHITE BLOOD COUNT 12.9 x10^3/uL (4.8-10.8)
== END 2023-10-03 15:24 ==
LOC: LAB.N 15:23
PROVIDERS: ATTEND Physician Assistant Medical
DX: J18.9 Pneumonia, unspecified organism (principal); N39.0 Urinary tract infection, site not specified
CPT/HCPCS: 36415; 85025; 87086

== ENCOUNTER 2023-10-12 11:45 | Outpatient (CLI) | payer MEDICARE, MEDICAID | END 2023-10-12 11:46 | disposition short-term general hospital (02) | LOC: EMS 11:45 | DX: R06.02 Shortness of breath (principal); R07.89 Other chest pain; R07.1 Chest pain on breathing; R06.2 Wheezing; R05.9 Cough, unspecified; Z99.81 Dependence on supplemental oxygen; J44.9 Chronic obstructive pulmonary disease, unspecified | CPT/HCPCS: A0425; A0427; A0888 ==

== ENCOUNTER 2023-10-24 13:21 | Outpatient (CLI) | payer MEDICARE, MEDICAID ==
[2023-10-24 18:01] LABS: BASOPHILS % (AUTO) 0.3 %; HCT - HEMATOCRIT 37.3 % (37.0-47.0); HGB - HEMOGLOBIN 11.4 g/dL (12.0-16.0); LYMPHOCYTES # (AUTO) 0.8 10^3/uL (1.5-3.5); LYMPHOCYTES % (AUTO) 6.2 %; MEAN CORPUSCULAR HEMOGLOBIN 30.1 pg (27.0-31.0); MEAN CORPUSCULAR HGB CONC 30.6 g/dL (32.0-36.0); MEAN CORPUSCULAR VOLUME 98.4 fL (81.0-99.0); MEAN PLATELET VOLUME 9.6 fL (7.9-10.8); MONOCYTES # (AUTO) 0.3 10^3/uL (0.0-1.0); MONOCYTES % (AUTO) 2.3 %; NEUTROPHILS # (AUTO) 12.1 10^3/uL (1.5-6.6); NEUTROPHILS % (AUTO) 90.8 %; PLT - PLATELET COUNT 445 10^3/uL (130-450); RED BLOOD COUNT 3.79 10^6/uL (4.20-5.40); RED CELL DISTRIBUTION WIDTH 15.9 % (12.0-15.0); WHITE BLOOD COUNT 13.4 x10^3/uL (4.8-10.8)
[2023-10-24 18:21] LABS: ALBUMIN/GLOBULIN RATIO 2.7 (1.0-2.2); BILIRUBIN,TOTAL 0.3 mg/dL (0.2-1.0); CALCIUM 9.5 mg/dL (8.5-10.3); CREATININE 1.2 mg/dL (0.6-1.3); POTASSIUM 3.6 mmol/L (3.5-4.5); TOTAL PROTEIN 5.5 g/dL (6.4-8.9)
== END 2023-10-24 13:22 | disposition home or self-care (01) ==
LOC: LAB.N 13:21
PROVIDERS: ATTEND Physician Assistant Medical
DX: K92.1 Melena (principal)
CPT/HCPCS: 36415; 80053; 85025

== ENCOUNTER 2023-12-25 11:15 | Outpatient (CLI) | payer MEDICARE, MEDICAID | END 2023-12-25 23:59 | disposition critical access hospital (66) | LOC: EMS 11:15 | DX: T63.441A Toxic effect of venom of bees, accidental (unintentional), initial encounter (principal) | CPT/HCPCS: A0425; A0433 ==

== ENCOUNTER 2023-12-25 11:31 | Inpatient (IN) | payer MEDICARE, MEDICAID ==
--- NOTE | 2023-12-25 11:43 | ED Physician Documentation ---
History of Present Illness - Stated complaint Stated Complaint: INTUBATED/BEE STING - History obtained from History obtained from: EMS - Additonal information Additional information: The patient is brought to the emergency department by EMS for chief complaint of reaction to bee sting. 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 When EMS got there, the patient had swelling of her tongue and lips and was feeling short of breath and itchy. She had already taken 2 of her EpiPen doses and they were not working. EMS got an IV, gave her IV Solu-Medrol, Benadryl, and IM epi but patient symptoms were still progressing so they intubated her. She was given a DuoNeb Plus albuterol and route. Oxygen saturation has been in the upper 90s to 100 per EMS. The patient is otherwise been stable. She is intubated and cannot offer any mission but has had to be intubated previously due to anaphylactic reactions. PD PAST MEDICAL HISTORY - Past Medical History Cardiovascular: Congestive heart failure, Hypertension, High cholesterol, Coronary artery disease, CO, Atrial fibrillation, Murmur, Arrhythmia Respiratory: Asthma, COPD, Emphysema, Pneumonia, Shortness of breath, Other Neuro: Headaches, Tremors Endocrine/Autoimmune: None GI: GERD COMBER FIXER: Ectopic , Other : None, Frequency HEENT: Chronic vision loss, Chronic sinusitis, Chronic hearing loss Psych: Depression, Anxiety, Claustrophobia Musculoskeletal: Osteoarthritis, Fatigue, Chronic back pain Derm: None - Past Surgical History Past Surgical History: Yes General: Cholecystectomy, EGD Ortho: Knee replacement /COMBER FIXER: Hysterectomy, LEEP (Cervical surgery) Cardiovascular: Cardiac catheterization HEENT: Rhinoplasty - Present Medications Home Medications: Ambulatory Orders Medication Instructions Recorded Confirmed Furosemide 80 mg PO DAILY 09/07/20 12/26/23 Apixaban [Eliquis] 5 mg PO BID 10/24/20 12/26/23 Albuterol Sulfate [Proair Hfa 2 puffs INH Q4H PRN #1 inh 10/29/20 12/26/23 Inhaler] Amiodarone [Pacerone] 100 mg PO DAILY 02/04/21 12/26/23 EPINEPHrine [Epinephrine] 0.3 mg IM PRN PRN 12/11/21 12/26/23 Glipizide [Glipizide ER] 5 mg PO DAILY 12/11/21 12/26/23 Cetirizine [ZyrTEC] 10 mg PO DAILY PRN 02/08/22 12/26/23 Fluticasone [Flonase] 1 sprays CLARISA BID 02/08/22 12/26/23 Montelukast [Singulair] 10 mg PO QPM 02/08/22 12/26/23 Budesonide [Pulmicort] 0.5 mg INH BID #60 ea 02/19/22 12/26/23 Multivitamin [Theragran] 1 tab PO DAILYWM tab 02/19/22 12/26/23 Ascorbic Acid [Vitamin C] 1,000 mg PO DAILY 07/20/22 12/26/23 Empagliflozin [Jardiance] 10 mg PO DAILY 12/26/23 12/26/23 Metoprolol Succinate [Toprol Xl] 25 mg PO DAILY 12/26/23 12/26/23 Mexiletine HCl 150 mg PO Q12H 12/26/23 12/26/23 Pantoprazole [Protonix] 40 mg PO BID 12/26/23 12/26/23 Promethazine [Phenergan] 25 mg PO DAILY PRN 12/26/23 12/26/23 Saccharomyces Boulardii [Florastor] 250 mg PO BID 12/26/23 12/26/23 Sacubitril/Valsartan [Entresto 24 1 tab PO BID 12/26/23 12/26/23 mg-26 mg Tablet] - Allergies Allergies/Adverse Reactions: Allergies Allergy/AdvReac Type Severity Reaction Status Date / Time codeine [Codeine] Allergy Severe Swelling/Hi Verified 07/25/23 14:54 ves erythromycin base Allergy Severe Anaphylaxis Verified 07/25/23 14:54 [Erythromycin Base] gabapentin Allergy Severe Anaphylaxis Verified 07/25/23 14:54 Latex, Natural Rubber Allergy Severe Blisters Verified 07/25/23 14:54 pamabrom [From Midol] Allergy Severe Respiratory Verified 07/25/23 14:54 pyrilamine maleate * Allergy Severe Respiratory Verified 07/25/23 14:54 [From Midol] shellfish derived Allergy Severe Anaphylaxis Verified 07/25/23 14:54 venom-honey bee Allergy Severe Anaphylaxis Verified 07/25/23 14:54 [bee venom (honey bee)] chlorhexidine Allergy Intermediate Rash Verified 07/25/23 14:54 morphine Allergy Respiratory Verified 07/25/23 14:54 ondansetron Allergy Respiratory Verified 07/25/23 14:54 piperacillin [From Zosyn] AdvReac Rash Verified 07/25/23 14:54 tazobactam [From Zosyn] AdvReac Rash Verified 07/25/23 14:54 - Social History Does the pt smoke?: Yes Smoking Status: Current every day smoker Does the pt drink ETOH?: No Does the pt have substance abuse?: No - Immunizations Immunizations are current?: No Immunizations: Other immun not current - POLST Patient has POLST: No POLST Status: Full Code PD ED PE NORMAL - Vitals Vital signs reviewed: Yes - General General: Well developed/nourished - HEENT HEENT: Atraumatic, EOMI, Moist mucous membranes, Other (Moderate edema of lips, tongue, and face.) - Neck Neck: Supple, no meningeal sign - Cardiac Cardiac: RRR, No murmur - Respiratory Respiratory: Other (Intubated, bilateral rhonchi.) - Abdomen Abdomen: Soft, Non distended - Derm Derm: Warm and dry - Extremities Extremities: No deformity - Neuro Neuro: Other (Intubated, paralyzed, sedated.) - Psych Psych: Normal mood, Normal affect Results - Vitals Vitals: Oxygen O2 Source [With Activity] Room air O2 Source Mechanical ventilator - Labs Labs: Laboratory Tests 12/25/23 12/25/23 12/25/23 11:40 11:40 12:05 WBC 15.1 H RBC 4.65 Hgb 12.2 Hct 41.2 MCV 88.6 MCH 26.2 L MCHC 29.6 L RDW 16.5 H Plt Count 354 MPV 9.9 Neut # (Auto) Not Reportable Lymph # (Auto) Not Reportable [place] # (Auto) Not Reportable Eos # (Auto) Not Reportable Baso # (Auto) Not Reportable Absolute Nucleated RBC Not Reportable Total Counted 100 Band Neuts % (Manual) 0 Abnorm Lymph % (Manual) 0 Nucleated RBC % Not Reportable Neutrophils # (Manual) 9.2 H Lymphocytes # (Manual) 4.1 H Monocytes # (Manual) 1.4 H Eosinophils # (Manual) 0.3 Basophils # (Manual) 0.2 H Differential Comment MANUAL DIFFERENTIAL Manual Slide Review Indicated WBC Morphology 2+ REACTIVE LYMPHS Platelet Estimate NORMAL (130-450,000) Platelet Morphology NORMAL APPEARANCE RBC Morph Micro Appear 1+ ANISOCYTOSIS Bld Gas Analysis Time Sample Site ABG pH ABG pCO2 ABG pO2 ABG HCO3 ABG Total CO2 ABG O2 Saturation ABG Base Excess Elio Test Respiration Rate O2 Delivery Device Vent Mode FiO2 Tidal Volume PEEP Pressure Support Vent Sodium 142 Potassium 3.2 L Chloride 105 Carbon Dioxide 30 Anion Gap 7.0 BUN 13 Creatinine 1.0 Estimated GFR (MDRD) 57 L Glucose 193 H Calcium 9.6 Magnesium Total Bilirubin 0.3 AST 18 ALT 13 Alkaline Phosphatase 117 Troponin I High Sens B-Natriuretic Peptide Total Protein 6.7 Albumin 3.9 Globulin 2.8 Albumin/Globulin Ratio 1.4 Lipase 27 Nasal Adenovirus (PCR) NOT DETECTED Nasal B. parapertussis DNA (PCR) NOT DETECTED Nasal Coronavir 229E PCR NOT DETECTED Nasal Coronavir HKU1 PCR NOT DETECTED Nasal Coronavir NL63 PCR NOT DETECTED Nasal Coronavir OC43 PCR NOT DETECTED Nasal Enterovir/Rhinovir PCR NOT DETECTED Nasal Influenza B PCR NOT DETECTED Nasal Influenza A PCR NOT DETECTED Nasal Parainfluen 1 PCR NOT DETECTED Nasal Parainfluen 2 PCR NOT DETECTED Nasal Parainfluen 3 PCR NOT DETECTED Nasal Parainfluen 4 PCR NOT DETECTED Nasal RSV (PCR) NOT DETECTED Nasal B.pertussis DNA PCR NOT DETECTED Nasal C.pneumoniae (PCR) NOT DETECTED Clarisa Human Metapneumo PCR NOT DETECTED Nasal M.pneumoniae (PCR) NOT DETECTED Nasal SARS-CoV-2 (PCR) NOT DETECTED 12/25/23 12/25/23 12/25/23 12:13 15:12 16:38 WBC RBC Hgb Hct MCV MCH MCHC RDW Plt Count MPV Neut # (Auto) Lymph # (Auto) [place] # (Auto) Eos # (Auto) Baso # (Auto) Absolute Nucleated RBC Total Counted Band Neuts % (Manual) Abnorm Lymph % (Manual) Nucleated RBC % Neutrophils # (Manual) Lymphocytes # (Manual) Monocytes # (Manual) Eosinophils # (Manual) Basophils # (Manual) Differential Comment Manual Slide Review WBC Morphology Platelet Estimate Platelet Morphology RBC Morph Micro Appear Bld Gas Analysis Time 0759 9328 Sample Site LEFT RADIAL UNKNOWN ABG pH 7.32 L 7.35 ABG pCO2 48 H 52 H ABG pO2 73 L 67 L ABG HCO3 23.9 28.0 H ABG Total CO2 25.3 29.6 H ABG O2 Saturation 94 92 L ABG Base Excess -2.5 L 1.6 Elio Test POSITIVE POSITIVE Respiration Rate 20 20 O2 Delivery Device VENTILATOR VENTILATOR Vent Mode SIMV SIMV FiO2 60.00 50.00 Tidal Volume 360 360 PEEP 5 5 Pressure Support Vent 12 12 Sodium Potassium Chloride Carbon Dioxide Anion Gap BUN Creatinine Estimated GFR (MDRD) Glucose Calcium Magnesium 2.1 Total Bilirubin AST ALT Alkaline Phosphatase Troponin I High Sens 75.9 H* B-Natriuretic Peptide Total Protein Albumin Globulin Albumin/Globulin Ratio Lipase Nasal Adenovirus (PCR) Nasal B. parapertussis DNA (PCR) Nasal Coronavir 229E PCR Nasal Coronavir HKU1 PCR Nasal Coronavir NL63 PCR Nasal Coronavir OC43 PCR Nasal Enterovir/Rhinovir PCR Nasal Influenza B PCR Nasal Influenza A PCR Nasal Parainfluen 1 PCR Nasal Parainfluen 2 PCR Nasal Parainfluen 3 PCR Nasal Parainfluen 4 PCR Nasal RSV (PCR) Nasal B.pertussis DNA PCR Nasal C.pneumoniae (PCR) Clarisa Human Metapneumo PCR Nasal M.pneumoniae (PCR) Nasal SARS-CoV-2 (PCR) 12/25/23 16:38 WBC RBC Hgb Hct MCV MCH MCHC RDW Plt Count MPV Neut # (Auto) Lymph # (Auto) [place] # (Auto) Eos # (Auto) Baso # (Auto) Absolute Nucleated RBC Total Counted Band Neuts % (Manual) Abnorm Lymph % (Manual) Nucleated RBC % Neutrophils # (Manual) Lymphocytes # (Manual) Monocytes # (Manual) Eosinophils # (Manual) Basophils # (Manual) Differential Comment Manual Slide Review WBC Morphology Platelet Estimate Platelet Morphology RBC Morph Micro Appear Bld Gas Analysis Time Sample Site ABG pH ABG pCO2 ABG pO2 ABG HCO3 ABG Total CO2 ABG O2 Saturation ABG Base Excess Elio Test Respiration Rate O2 Delivery Device Vent Mode FiO2 Tidal Volume PEEP Pressure Support Vent Sodium Potassium Chloride Carbon Dioxide Anion Gap BUN Creatinine Estimated GFR (MDRD) Glucose Calcium Magnesium Total Bilirubin AST ALT Alkaline Phosphatase Troponin I High Sens B-Natriuretic Peptide 303 H Total Protein Albumin Globulin Albumin/Globulin Ratio Lipase Nasal Adenovirus (PCR) Nasal B. parapertussis DNA (PCR) Nasal Coronavir 229E PCR Nasal Coronavir HKU1 PCR Nasal Coronavir NL63 PCR Nasal Coronavir OC43 PCR Nasal Enterovir/Rhinovir PCR Nasal Influenza B PCR Nasal Influenza A PCR Nasal Parainfluen 1 PCR Nasal Parainfluen 2 PCR Nasal Parainfluen 3 PCR Nasal Parainfluen 4 PCR Nasal RSV (PCR) Nasal B.pertussis DNA PCR Nasal C.pneumoniae (PCR) Clarisa Human Metapneumo PCR Nasal M.pneumoniae (PCR) Nasal SARS-CoV-2 (PCR) PD Medical Decision Making - ED course Complexity details: reviewed results, re-evaluated patient, considered d ifferential, d/w weight loss sales consultant ED course: The patient arrived intubated and had already received 3 rounds of epinephrine between her own EpiPens and EMS. She had also received IV Solu-Medrol and Benadryl. The patient did have improvement in her swelling of her tongue and lips, but had pulmonary edema on her chest x-ray and was not ready to wean off the vent. Furthermore, given the severity of her initial reaction and the refractoriness to at least 4 EpiPen doses, I felt she was at risk for a biphasic reaction which her symptoms would escalate again. As such, in addition to the fact that she cannot be weaned off the ventilator yet, I feel she should be admitted to the hospital. I spoke with hospitalist on-call who agreed to admit the pt to his service. Departure - Departure Disposition: 66 [facility] DC/Xfer Clinical Impression: Anaphylactic reaction to bee sting Qualifiers: Encounter type: initial encounter Injury intent: accidental or unintentional Qualified Code(s): T63.441A - Toxic effect of venom of bees, accidental (unintentional), initial encounter Condition: Critical Discharge Date/Time: 12/25/23 18:30
[2023-12-25 11:44] LABS: BASOPHILS % (AUTO) 0.5 %; HCT - HEMATOCRIT 41.2 % (37.0-47.0); HGB - HEMOGLOBIN 12.2 g/dL (12.0-16.0); LYMPHOCYTES % (AUTO) 30.4 %; MEAN CORPUSCULAR HEMOGLOBIN 26.2 pg (27.0-31.0); MEAN CORPUSCULAR HGB CONC 29.6 g/dL (32.0-36.0); MEAN CORPUSCULAR VOLUME 88.6 fL (81.0-99.0); MEAN PLATELET VOLUME 9.9 fL (7.9-10.8); MONOCYTES % (AUTO) 10.2 %; NEUTROPHILS % (AUTO) 55.5 %; PLT - PLATELET COUNT 354 10^3/uL (130-450); RED BLOOD COUNT 4.65 10^6/uL (4.20-5.40); RED CELL DISTRIBUTION WIDTH 16.5 % (12.0-15.0); WHITE BLOOD COUNT 15.1 x10^3/uL (4.8-10.8)
[2023-12-25 11:45] LABS: SLIDE REVIEW? Indicated
[2023-12-25] MEDS: SODIUM CHLORIDE 0.9% 1,000 ML IV STA (11:45)
[2023-12-25 11:46] LABS: ABNORMAL LYMPHS % (MANUAL) 0 %; BAND NEUTROPHILS % (MANUAL) 0 %
[2023-12-25] MEDS: PROPOFOL 1000 MG/100 ML 1,000 MG/100 ML BOTTLE IV STA ×3 (11:50→17:43)
[2023-12-25 11:59] LABS: ALBUMIN 3.9 g/dL (3.2-5.5); ALBUMIN/GLOBULIN RATIO 1.4 (1.0-2.2); BILIRUBIN,TOTAL 0.3 mg/dL (0.2-1.0); CALCIUM 9.6 mg/dL (8.5-10.3); POTASSIUM 3.2 mmol/L (3.5-4.5); TOTAL PROTEIN 6.7 g/dL (6.4-8.9)
[2023-12-25 12:03] LABS: BASOPHILS # (MANUAL) 0.2 10^3/uL (0-0.1); BASOPHILS % (MANUAL) 1 %; EOSINOPHILS # (MANUAL) 0.3 10^3/uL (0-0.7); LYMPHOCYTES # (MANUAL) 4.1 10^3/uL (1.5-3.5); LYMPHOCYTES % (MANUAL) 27 %; MONOCYTES # (MANUAL) 1.4 10^3/uL (0.0-1.0); NEUTROPHILS # (MANUAL) 9.2 10^3/uL (1.5-6.6)
[2023-12-25 12:04] LABS: PLATELET ESTIMATE, MANUAL NORMAL (130-450,000) (NORMAL); PLATELET MORPHOLOGY NORMAL APPEARANCE (NORMAL); RBC MORPHOLOGY (MULTIPLE) 1+ ANISOCYTOSIS (NORMAL); WBC MORPHOLOGY (MULTIPLE) 2+ REACTIVE LYMPHS (NORMAL)
[2023-12-25 12:05] LABS: DIFFERENTIAL COMMENT MANUAL DIFFERENTIAL
[2023-12-25 12:22] LABS: ABG BASE EXCESS -2.5 mmol/L (-2.0-3.0); ABG HCO3 23.9 mmol/L (22.0-26.0); ABG PCO2 48 mmHg (34-45); ABG PH 7.32 (7.35-7.45); ABG PO2 73 mmHg (80-100); ABG TCO2 25.3 MMOL/L (21.0-29.0)
[2023-12-25 12:23] LABS: ABG MODE OF VENTILATION SIMV; ABG OXYGEN SATURATION 94 % (94-98); ABG RESPIRATORY RATE 20 b/min; ALLEN TEST POSITIVE
--- NOTE | 2023-12-25 12:29 | XRAY Report ---
PROCEDURE: Chest 1V INDICATIONS: intubated, anaphylaxis TECHNIQUE: One view of the chest was acquired. COMPARISON: 01/30/2023 FINDINGS: Surgical changes and devices: An endotracheal tube is seen, with the tip 2 cm above the lai. A ga stric tube is seen, with the tip not visible within the [id number] of this image, although clearly below the diaphragm. Stable AICD leads are seen. Lungs and pleura: On the supine study, no large pneumothorax or large pleural effusions can be seen. No focal infiltrates are detected. Low lung volumes can be seen, causing a crowded appearance to th e lung markings. Generalized interstitial prominence is seen. Mediastinum: Mediastinal contours appear normal. Heart size is moderately enlarged. Calcification is seen of the aortic arch. Bones and chest wall: No suspicious bony lesions. Overlying soft tissues appear unremarkable. IMPRESSION: The tip of endotracheal tube is seen 2 cm above the lai. A gastric tube has been placed, with the tip below the level of the diaphragm. There is cardiomegaly and interstitial prominence. CHF is suspected. Reviewed by: Jaime Fowler MD on 12/25/2023 11:28 AM JORGE L Approved by: Jaime Fowler MD on 12/25/2023 11:28 AM JORGE L Station ID: [id number]
[2023-12-25 13:02] LABS: CORONAVIRUS 229E-RESP PCR NOT DETECTED; CORONAVIRUS HKU1-RESP PCR NOT DETECTED; CORONAVIRUS NL63-RESP PCR NOT DETECTED; CORONAVIRUS OC43-RESP PCR NOT DETECTED; HUMAN METAPNEUMOVIRUS NOT DETECTED; INFLUENZA A- RESP PCR PANEL NOT DETECTED; RHINOVIRUS/ENTEROVIRUS NOT DETECTED; SARS-CoV-2 -RESP PCR PANEL NOT DETECTED
[2023-12-25 13:03] LABS: B. PARAPERTUSSIS- RESP PCR PAN NOT DETECTED; B. PERTUSSIS- RESP PCR PANEL NOT DETECTED; C. PNEUMONIAE- RESP PCR PANEL NOT DETECTED; INFLUENZA B - RESP PCR PANEL NOT DETECTED; M. PNEUMONIAE- RESP PCR PANEL NOT DETECTED; PARAINFLUENZA VIRUS 1 NOT DETECTED; PARAINFLUENZA VIRUS 2 NOT DETECTED; PARAINFLUENZA VIRUS 3 NOT DETECTED; PARAINFLUENZA VIRUS 4 NOT DETECTED; RSV- RESP PCR PANEL NOT DETECTED
[2023-12-25] MEDS: FUROSEMIDE 40 MG/4 ML VIAL IVP STA (14:32)
[2023-12-25 15:19] LABS: ABG PCO2 52 mmHg (34-45); ABG PH 7.35 (7.35-7.45); ABG PO2 67 mmHg (80-100)
[2023-12-25 15:20] LABS: ABG BASE EXCESS 1.6 mmol/L (-2.0-3.0); ABG OXYGEN SATURATION 92 % (94-98); ABG TCO2 29.6 MMOL/L (21.0-29.0); ALLEN TEST POSITIVE
[2023-12-25 15:22] LABS: ABG MODE OF VENTILATION SIMV; ABG RESPIRATORY RATE 20 b/min
[2023-12-25] MEDS: POTASSIUM CHLOR 10 MEQ/100 ML 10 MEQ/100 ML BAG IV SCH (16:38)
[2023-12-25] MEDS ORDERED: ALBUTEROL NEB 2.5 MG/3 ML INH PRN (16:54)
[2023-12-25] MEDS ORDERED: PROPOFOL 1000 MG/100 ML 1,000 MG/100 ML BOTTLE IV STA (16:55)
--- NOTE | 2023-12-25 17:07 | HISTORY & PHYSICAL EXAMINATION ---
Chief Complaint - Chief Complaint Chief Complaint: Bee sting History of Present Illness - Admitted From Admitted From:: [facility] Emergency Department - History Obtained From Records Reviewed: EMR History obtained from: ED staff Exam Limitations: Patient intubated and sedated, unable to provide information - History of Present Illness HPI Comment/Other: Ester Benavides is a 58yo with a history of COPD previously on 2 L oxygen (unclear if still using), tobacco abuse, CAD, hypertension, hyperlipidemia, atrial fibrillation, type 2 diabetes, depression, chronic back pain and history of anaphylaxis to bee stings who presented with a bee sting today. Today she was stung by bee on one of the fingers on her right hand and immediately started to feel her lips and throat swelling. She carried 2 EpiPen's with her and she used both of them after contacting EMS. When EMS arrived she continued to have progressive lip, tongue and laryngeal edema. Due to the rapid progression and development of impending respiratory failure, she was intubated by EMS and given Solu-Medrol, Benadryl and an additional EpiPen. On arrival to the emergency department she was afebrile and was never hypotensive. She was saturating 90 to 95% on the mechanical ventilator at 50% FiO2. Her chest x-ray showed findings concerning for pulmonary edema and she was given 80 mg of IV Lasix. An ABG several hours after presentation showed relatively unremarkable acid-base status however her pO2 was 67 on 50% FiO2. She was sedated on propofol but alert and interactive. Due to her presentation and continued hypoxia it was felt that it was unsafe to extubate in the emergency department thus she was admitted for further care. History - Past Medical History Cardiovascular: reports: Congestive heart failure, Hypertension, High cholesterol, Coronary artery disease, [place], Atrial fibrillation, Murmur, Arrhythmia Respiratory: reports: Asthma, COPD, Emphysema, Pneumonia, Shortness of breath, Other Neuro: reports: Headaches, Tremors Endocrine/Autoimmune: reports: None GI: reports: GERD CASKET ASSEMBLER: reports: Ectopic , Other : reports: None, Frequency HEENT: reports: Chronic vision loss, Chronic sinusitis, Chronic hearing loss Psych: reports: Depression, Anxiety, Claustrophobia Musculoskeletal: reports: Osteoarthritis, Fatigue, Chronic back pain Derm: reports: None MRSA Hx?: No - Past Surgical History General: reports: Cholecystectomy, EGD Ortho: reports: Knee replacement /CASKET ASSEMBLER: reports: Hysterectomy, LEEP (Cervical surgery) Cardiovascular: reports: Cardiac catheterization HEENT: reports: Rhinoplasty - Family & Social History Family History: Mother: Alive and Well, Alzheimer's Disease, Hyperlipidemia, Hypertension, Father: , Cancer, Other family: CVA/TIA, Diabetes, Type 1, [place] Family History Comment/Other: To her knowledge, her father from an unknown cancer. She denies a family history of heart disease or diabetes but review of prior records reveal that both her parents had coronary artery disease and diabetes. Living Situation: With family Social History Notes: She lives with her grand-daughter's boyfriend who she is trying to evict. 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 She reports that she quit smoking about a year ago. She started at the age of 7 and smoked up to 1.5 packs a day. She reported she had alcoholism but she quit alcohol use. - Substance History Use: Uses substance without health or social issues: NONE - POLST Patient has POLST: No POLST Status: Full Code Meds/Allgy - Home Medications Home Medications: Ambulatory Orders Medication Instructions Recorded Confirmed Furosemide 80 mg PO DAILY 09/07/20 11/04/22 Apixaban [Eliquis] 5 mg PO BID 10/24/20 11/04/22 Albuterol Sulfate [Proair Hfa 2 puffs INH Q4H PRN #1 inh 10/29/20 11/04/22 Inhaler] Amiodarone [Pacerone] 100 mg PO DAILY 02/04/21 11/04/22 Nitroglycerin [Nitrostat] 0.4 mg PO Q5MIN PRN 03/16/21 11/04/22 EPINEPHrine [Epinephrine] 0.3 mg IM PRN PRN 12/11/21 11/04/22 Glipizide [Glipizide ER] 5 mg PO DAILY 12/11/21 11/04/22 Spironolactone [Aldactone] 25 mg PO DAILY 12/11/21 11/04/22 Cetirizine [ZyrTEC] 10 mg PO DAILY PRN 02/08/22 11/04/22 Fluticasone [Flonase] 2 sprays CLARISA DAILY 02/08/22 11/04/22 Montelukast [Singulair] 10 mg PO QPM 02/08/22 11/04/22 Albuterol 2.5 mg INH RTQ4H PRN #30 ea 02/19/22 11/04/22 Budesonide [Pulmicort] 0.5 mg INH BID #60 ea 02/19/22 11/04/22 Metoprolol Succinate [Toprol Xl] 25 mg PO BID #30 tab 02/19/22 11/04/22 Multivitamin [Theragran] 1 tab PO DAILYWM tab 02/19/22 11/04/22 Loperamide HCl [Imodium A-D] 2 mg PO Q6H PRN #12 tablet 07/13/22 11/04/22 Promethazine [Phenergan] 25 mg PO Q6H PRN #15 tab 07/13/22 11/04/22 Ascorbic Acid [Vitamin C] 1,000 mg PO DAILY 07/20/22 11/04/22 Calcium Carbonate/Vitamin D3 1 each PO DAILY 07/20/22 11/04/22 [Calcium 600-Vit D3 800 Tablet] lisinopriL [Zestril] 5 mg PO DAILY 07/20/22 11/04/22 Lidocaine [Lidoderm] 1 each TP DAILY PRN #10 patch 07/25/23 - Allergies Allergies/Adverse Reactions: Allergies Allergy/AdvReac Type Severity Reaction Status Date / Time codeine [Codeine] Allergy Severe Swelling/Hi Verified 07/25/23 14:54 ves erythromycin base Allergy Severe Anaphylaxis Verified 07/25/23 14:54 [Erythromycin Base] gabapentin Allergy Severe Anaphylaxis Verified 07/25/23 14:54 Latex, Natural Rubber Allergy Severe Blisters Verified 07/25/23 14:54 pamabrom [From Midol] Allergy Severe Respiratory Verified 07/25/23 14:54 pyrilamine maleate * Allergy Severe Respiratory Verified 07/25/23 14:54 [From Midol] shellfish derived Allergy Severe Anaphylaxis Verified 07/25/23 14:54 venom-honey bee Allergy Severe Anaphylaxis Verified 07/25/23 14:54 [bee venom (honey bee)] chlorhexidine Allergy Intermediate Rash Verified 07/25/23 14:54 morphine Allergy Respiratory Verified 07/25/23 14:54 ondansetron Allergy Respiratory Verified 07/25/23 14:54 piperacillin [From Zosyn] AdvReac Rash Verified 07/25/23 14:54 tazobactam [From Zosyn] AdvReac Rash Verified 07/25/23 14:54 Review of Systems - All Other Systems All Other Systems: reports: Other (Aside from what is mentioned in the HPI, further review of systems are unobtainable as the patient is intubated and unable to provide that information.) Exam - Vital Signs Reviewed Vital Signs: Yes Vital Signs: Vital Signs x48h Temp Pulse Resp BP Pulse Ox O2 Flow Rate 12/25/23 15:45 65 20 125/76 93 12/25/23 15:36 65 12/25/23 14:45 67 21 125/72 95 50 12/25/23 14:30 68 20 129/74 95 50 12/25/23 14:15 68 20 130/78 95 50 12/25/23 14:01 68 12/25/23 14:00 65 20 134/71 H 97 50 12/25/23 13:45 66 28 H 107/67 94 12/25/23 13:30 66 20 114/61 93 60 12/25/23 13:15 73 18 139/128 H 94 60 12/25/23 13:00 69 12 130/118 H 98 60 12/25/23 12:45 77 20 129/66 94 60 12/25/23 12:30 76 21 142/80 H 95 60 12/25/23 12:15 70 20 138/74 H 95 60 12/25/23 12:01 65 18 141/84 H 100 12/25/23 11:49 74 12/25/23 11:32 36.3 C L 78 20 152/81 H 100 - Physical Exam General Appearance: positive: Other (Intubated and sedated. Appears chronically ill and older than stated age. Opens her eyes to verbal cues and follows commands.) Eyes Bilateral: positive: Normal inspection, PERRL, EOMI ENT: positive: Other (ET tube in place.Lips and tongue minimally swollen but per report significantly improved.) Neck: positive: Nml inspection, Thyroid nml, No JVD, Trachea midline Respiratory: positive: Other (Breathing over the ventilator but not in any apparent respiratory distress. Fair air movement throughout both lung mathews however lung sounds are coarse with expiratory wheezing and occasional rhonchi.) Cardiovascular: positive: No murmur, No gallop, Irregularly irregular Peripheral Pulses: positive: 2+ Abdomen: positive: Non-tender, No organomegaly, No distention Back: positive: Nml inspection Skin: positive: Color nml, No rash, Warm, Dry Extremities: positive: Nml appearance, Pedal edema (1+ pitting edema bilater ally) Neurologic/Psychiatric: positive: Other (Intubated and sedated but opens eyes to verbal cues. Moves all extremities without focal neurologic deficit.) Sepsis Event Note (H) - Evaluation Current Stage of Sepsis: Ruled out Conclusion/Plan - Problem List (1) Anaphylactic reaction to bee sting Conclusion/Plan: She has a history of anaphylaxis to bee stings and she was stung on the right third or fourth finger. -Status post 2 EpiPen's by the patient along with IV Solu-Medrol, Benadryl and an additional EpiPen by EMS. -She developed angioedema with lip, tongue and laryngeal swelling requiring intubation. -She did not develop anaphylactic shock. -Her swelling is improving at this time. Will continue IV Solu-Medrol, IV Pepcid and IV Benadryl overnight. Qualifiers: Encounter type: initial encounter Injury intent: accidental or unintentional Qualified Code(s): T63.441A - Toxic effect of venom of bees, accidental (unintentional), initial encounter (2) Acute on chronic systolic heart failure Conclusion/Plan: Her chest x-ray shows cardiomegaly and findings concerning for pulmonary edema. -She received 80 mg IV Lasix in the emergency department. -Placed on 40 mg IV Lasix twice daily. -Last TTE in our system was January 2023 where her LVEF was 30 to 35%. -I am unclear what medication she is taking at home at this time, we will have to reassess tomorrow. (3) Acute respiratory failure with hypoxemia Conclusion/Plan: Her acute respiratory failure is likely secondary to her anaphylaxis but also acute pulmonary edema. Her COPD may be contributing as well given her wheezing. It is unclear if she is still using 2 L of oxygen, which she had used in the past. -Continue mechanical ventilation for now. Treat acute CHF as noted elsewhere in this note. -Placed on scheduled DuoNebs with as needed albuterol. -Sedate with propofol and as needed fentanyl pushes. -If she develops hypotension, would switch propofol to midazolam given her CHF. -Repeat ABG and chest x-ray in the morning. Hopefully will be able to extubate tomorrow. (4) COPD (chronic obstructive pulmonary disease) Conclusion/Plan: Unclear if she is having a true COPD exacerbation versus reactive airway disease and CHF from her anaphylaxis. -Placed on scheduled DuoNebs with as needed albuterol. -On IV Solu-Medrol mainly for anaphylaxis, but will have to reassess need for continued steroid therapy if she is still wheezing tomorrow. Qualifiers: COPD type: COPD with acute exacerbation Qualified Code(s): J44.1 - Chronic obstructive pulmonary disease with (acute) exacerbation (5) Hypokalemia Conclusion/Plan: -Will give IV potassium chloride replacement. -Check magnesium level. -Repeat BMP in the morning given IV diuresis. (6) Chronic atrial fibrillation Conclusion/Plan: She previously had been on amiodarone and apixaban as an outpatient though I am unsure if she is still taking this. -Monitor on telemetry for now, can institute as needed metoprolol if needed. -Will need to reassess medication list tomorrow. -Placed on prophylactic Lovenox dosing for now until medication list is verified . (7) Diabetes mellitus type 2 in obese Conclusion/Plan: -Reportedly has an allergy to latex and subcutaneous insulin may contain some latex. -Will monitor Accu-Cheks and if significantly elevated may need to try oral medications or verify if an IV insulin infusion has the same latex. (8) Hx of coronary artery disease Conclusion/Plan: Unable to see any acute changes on EKG but she is in a paced rhythm. -Do not suspect primary acute coronary syndrome but will trend troponins. -Placed on aspirin 81 mg. (9) Hypertension Conclusion/Plan: Currently well-controlled. -Monitor for now, verify medication list tomorrow. (10) Sleep apnea Conclusion/Plan: Will need to monitor for sleep apnea after extubation. Qualifiers: Sleep apnea type: unspecified type Qualified Code(s): G47.30 - Sleep apnea, unspecified - Lab Results Lab results reviewed: Yes Fish Bones: 12/25/23 11:40 12/25/23 11:40 Other Lab Results: Laboratory Results - last 24 hr 12/25/23 12/25/23 12/25/23 11:40 11:40 12:05 WBC 15.1 H RBC 4.65 Hgb 12.2 Hct 41.2 MCV 88.6 MCH 26.2 L MCHC 29.6 L RDW 16.5 H Plt Count 354 MPV 9.9 Neut # (Auto) Not Reportable Lymph # (Auto) Not Reportable Sandoval # (Auto) Not Reportable Eos # (Auto) Not Reportable Baso # (Auto) Not Reportable Absolute Nucleated RBC Not Reportable Total Counted 100 Band Neuts % (Manual) 0 Abnorm Lymph % (Manual) 0 Nucleated RBC % Not Reportable Neutrophils # (Manual) 9.2 H Lymphocytes # (Manual) 4.1 H Monocytes # (Manual) 1.4 H Eosinophils # (Manual) 0.3 Basophils # (Manual) 0.2 H Differential Comment MANUAL DIFFERENTIAL Manual Slide Review Indicated WBC Morphology 2+ REACTIVE LYMPHS Platelet Estimate NORMAL (130-450,000) Platelet Morphology NORMAL APPEARANCE RBC Morph Micro Appear 1+ ANISOCYTOSIS Bld Gas Analysis Time Sample Site ABG pH ABG pCO2 ABG pO2 ABG HCO3 ABG Total CO2 ABG O2 Saturation ABG Base Excess Elio Test Respiration Rate O2 Delivery Device Vent Mode FiO2 Tidal Volume PEEP Pressure Support Vent Sodium 142 Potassium 3.2 L Chloride 105 Carbon Dioxide 30 Anion Gap 7.0 BUN 13 Creatinine 1.0 Estimated GFR (MDRD) 57 L Glucose 193 H Calcium 9.6 Magnesium Total Bilirubin 0.3 AST 18 ALT 13 Alkaline Phosphatase 117 Troponin I High Sens B-Natriuretic Peptide Total Protein 6.7 Albumin 3.9 Globulin 2.8 Albumin/Globulin Ratio 1.4 Lipase 27 Nasal Adenovirus (PCR) NOT DETECTED Nasal B. parapertussis DNA (PCR) NOT DETECTED Nasal Coronavir 229E PCR NOT DETECTED Nasal Coronavir HKU1 PCR NOT DETECTED Nasal Coronavir NL63 PCR NOT DETECTED Nasal Coronavir OC43 PCR NOT DETECTED Nasal Enterovir/Rhinovir PCR NOT DETECTED Nasal Influenza B PCR NOT DETECTED Nasal Influenza A PCR NOT DETECTED Nasal Parainfluen 1 PCR NOT DETECTED Nasal Parainfluen 2 PCR NOT DETECTED Nasal Parainfluen 3 PCR NOT DETECTED Nasal Parainfluen 4 PCR NOT DETECTED Nasal RSV (PCR) NOT DETECTED Nasal B.pertussis DNA PCR NOT DETECTED Nasal C.pneumoniae (PCR) NOT DETECTED Clarisa Human Metapneumo PCR NOT DETECTED Nasal M.pneumoniae (PCR) NOT DETECTED Nasal SARS-CoV-2 (PCR) NOT DETECTED 12/25/23 12/25/23 12/25/23 12:13 15:12 16:38 WBC RBC Hgb Hct MCV MCH MCHC RDW Plt Count MPV Neut # (Auto) Lymph # (Auto) Sandoval # (Auto) Eos # (Auto) Baso # (Auto) Absolute Nucleated RBC Total Counted Band Neuts % (Manual) Abnorm Lymph % (Manual) Nucleated RBC % Neutrophils # (Manual) Lymphocytes # (Manual) Monocytes # (Manual) Eosinophils # (Manual) Basophils # (Manual) Differential Comment Manual Slide Review WBC Morphology Platelet Estimate Platelet Morphology RBC Morph Micro Appear Bld Gas Analysis Time 1219 1518 Sample Site LEFT RADIAL UNKNOWN ABG pH 7.32 L 7.35 ABG pCO2 48 H 52 H ABG pO2 73 L 67 L ABG HCO3 23.9 28.0 H ABG Total CO2 25.3 29.6 H ABG O2 Saturation 94 92 L ABG Base Excess -2.5 L 1.6 Elio Test POSITIVE POSITIVE Respiration Rate 20 20 O2 Delivery Device VENTILATOR VENTILATOR Vent Mode SIMV SIMV FiO2 60.00 50.00 Tidal Volume 360 360 PEEP 5 5 Pressure Support Vent 12 12 Sodium Potassium Chloride Carbon Dioxide Anion Gap BUN Creatinine Estimated GFR (MDRD) Glucose Calcium Magnesium 2.1 Total Bilirubin AST ALT Alkaline Phosphatase Troponin I High Sens 75.9 H* B-Natriuretic Peptide Total Protein Albumin Globulin Albumin/Globulin Ratio Lipase Nasal Adenovirus (PCR) Nasal B. parapertussis DNA (PCR) Nasal Coronavir 229E PCR Nasal Coronavir HKU1 PCR Nasal Coronavir NL63 PCR Nasal Coronavir OC43 PCR Nasal Enterovir/Rhinovir PCR Nasal Influenza B PCR Nasal Influenza A PCR Nasal Parainfluen 1 PCR Nasal Parainfluen 2 PCR Nasal Parainfluen 3 PCR Nasal Parainfluen 4 PCR Nasal RSV (PCR) Nasal B.pertussis DNA PCR Nasal C.pneumoniae (PCR) Clarisa Human Metapneumo PCR Nasal M.pneumoniae (PCR) Nasal SARS-CoV-2 (PCR) 12/25/23 16:38 WBC RBC Hgb Hct MCV MCH MCHC RDW Plt Count MPV Neut # (Auto) Lymph # (Auto) Sandoval # (Auto) Eos # (Auto) Baso # (Auto) Absolute Nucleated RBC Total Counted Band Neuts % (Manual) Abnorm Lymph % (Manual) Nucleated RBC % Neutrophils # (Manual) Lymphocytes # (Manual) Monocytes # (Manual) Eosinophils # (Manual) Basophils # (Manual) Differential Comment Manual Slide Review WBC Morphology Platelet Estimate Platelet Morphology RBC Morph Micro Appear Bld Gas Analysis Time Sample Site ABG pH ABG pCO2 ABG pO2 ABG HCO3 ABG Total CO2 ABG O2 Saturation ABG Base Excess Elio Test Respiration Rate O2 Delivery Device Vent Mode FiO2 Tidal Volume PEEP Pressure Support Vent Sodium Potassium Chloride Carbon Dioxide Anion Gap BUN Creatinine Estimated GFR (MDRD) Glucose Calcium Magnesium Total Bilirubin AST ALT Alkaline Phosphatase Troponin I High Sens B-Natriuretic Peptide 303 H Total Protein Albumin Globulin Albumin/Globulin Ratio Lipase Nasal Adenovirus (PCR) Nasal B. parapertussis DNA (PCR) Nasal Coronavir 229E PCR Nasal Coronavir HKU1 PCR Nasal Coronavir NL63 PCR Nasal Coronavir OC43 PCR Nasal Enterovir/Rhinovir PCR Nasal Influenza B PCR Nasal Influenza A PCR Nasal Parainfluen 1 PCR Nasal Parainfluen 2 PCR Nasal Parainfluen 3 PCR Nasal Parainfluen 4 PCR Nasal RSV (PCR) Nasal B.pertussis DNA PCR Nasal C.pneumoniae (PCR) Clarisa Human Metapneumo PCR Nasal M.pneumoniae (PCR) Nasal SARS-CoV-2 (PCR) - Diagnostic Imaging Results Diagnostic Imaging Results: positive: Final report reviewed Diagnostic Imaging Results Comments: Chest x-ray 12/25/2023 The tip of the endotracheal tube is seen 2 cm above the lai. A gastric tube has been placed, with the tip below the level of the diaphragm. There is cardiomegaly and interstitial prominence, CHF is suspected. - EKG Results EKG Interpreted Independently: Yes EKG Findings: per my read - Atrial fibrillation with AV paced rhythm. Core Measures - Anticipated LOS I expect patient to be DC'd or transferred within 96 hours.: Yes - Issues Hospital Issues and Management Plan: Critical Care Time, independent from any separately billable procedures: 75 minutes - DVT/VTE - Prophylaxis VTE/DVT Device ordered at admit?: No VTE/DVT Prophylaxis med ordered at admit?: Yes
[2023-12-25 17:08] LABS: TROPONIN I HIGH SENSITIVITY 75.9 ng/L (2.3-14.8)
[2023-12-25 17:09] LABS: MAGNESIUM 2.1 mg/dL (1.7-2.3)
[2023-12-25] MEDS: IPRATROPIUM/ALBUTEROL 3 ML NEB INH SCH (17:47)
[2023-12-25] MEDS: diphenhydrAMINE INJ 50 MG/ML VIAL IVP SCH (17:53)
[2023-12-25] MEDS: SODIUM CHLORIDE FLUSH 0.9% 10 ML SYRINGE IVP SCH (17:53)
[2023-12-25] MEDS: ASPIRIN CHEW 81 MG TABLET NG SCH (18:47)
[2023-12-25] MEDS: methylPREDNISolone SUCCINATE 40 MG/ML VIAL IVP SCH (19:45)
[2023-12-25 20:54] LABS: AMPHETAMINE SCREEN,URINE NEGATIVE (NEGATIVE); BARBITURATE SCREEN,UR NEGATIVE (NEGATIVE); BENZODIAZEPINES SCREEN, URINE NEGATIVE (NEGATIVE); BUPRENORPHINE SCREEN, URINE NEGATIVE (NEGATIVE); COCAINE SCREEN URINE NEGATIVE (NEGATIVE); METHADONE SCREEN, URINE NEGATIVE (NEGATIVE); METHAMPHETAMINES SCREEN, URINE NEGATIVE (NEGATIVE); OPIATE SCREEN, URINE NEGATIVE (NEGATIVE); OXYCODONE SCREEN, URINE NEGATIVE (NEGATIVE); THC CANNABINOID SCREEN, URINE NEGATIVE (NEGATIVE); TRICYCLIC ANTIDEPRESSANT,URINE NEGATIVE (NEGATIVE)
[2023-12-25] MEDS: FAMOTIDINE 20 MG/2 ML VIAL IVP SCH (21:02)
[2023-12-25] MEDS: FUROSEMIDE 40 MG/4 ML VIAL IVP SCH (21:02)
[2023-12-26] MEDS: PROPOFOL 1000 MG/100 ML 1,000 MG/100 ML BOTTLE IV SCH (02:19)
[2023-12-26] MEDS: fentaNYL 100 MCG/2 ML VIAL IVP PRN (04:31)
[2023-12-26 04:57] LABS: BASOPHILS % (AUTO) 0.1 %; HCT - HEMATOCRIT 40.1 % (37.0-47.0); LYMPHOCYTES # (AUTO) 0.8 10^3/uL (1.5-3.5); LYMPHOCYTES % (AUTO) 5.5 %; MEAN CORPUSCULAR HGB CONC 29.9 g/dL (32.0-36.0); MEAN CORPUSCULAR VOLUME 86.8 fL (81.0-99.0); MEAN PLATELET VOLUME 9.6 fL (7.9-10.8); MONOCYTES # (AUTO) 0.2 10^3/uL (0.0-1.0); MONOCYTES % (AUTO) 1.4 %; NEUTROPHILS # (AUTO) 13.6 10^3/uL (1.5-6.6); NEUTROPHILS % (AUTO) 92.5 %; PLT - PLATELET COUNT 298 10^3/uL (130-450); RED BLOOD COUNT 4.62 10^6/uL (4.20-5.40); RED CELL DISTRIBUTION WIDTH 16.7 % (12.0-15.0); WHITE BLOOD COUNT 14.6 x10^3/uL (4.8-10.8)
[2023-12-26] MEDS: SODIUM CHLORIDE FLUSH 0.9% 10 ML SYRINGE IVP PRN (05:23)
[2023-12-26 05:29] LABS: CALCIUM, IONIZED 1.16 mmol/L (1.15-1.33); VBG PH 7.432 (7.31-7.41)
[2023-12-26 05:41] LABS: ABG PCO2 44 mmHg (34-45); ABG PH 7.44 (7.35-7.45); ABG PO2 70 mmHg (80-100)
[2023-12-26 05:42] LABS: ABG BASE EXCESS 3.9 mmol/L (-2.0-3.0); ABG HCO3 28.7 mmol/L (22.0-26.0); ABG MODE OF VENTILATION SIMV; ABG OXYGEN SATURATION 94 % (94-98); ALLEN TEST POSITIVE
[2023-12-26 05:43] LABS: CALCIUM 9.8 mg/dL (8.5-10.3); CREATININE 1.1 mg/dL (0.6-1.3); POTASSIUM 3.8 mmol/L (3.5-4.5)
[2023-12-26 05:43] LABS: ABG RESPIRATORY RATE 20 b/min
[2023-12-26 05:50] LABS: TROPONIN I HIGH SENSITIVITY 85.2 ng/L (2.3-14.8)
[2023-12-26 05:57] LABS: PHOSPHORUS 3.2 mg/dL (2.5-5.0)
[2023-12-26] MEDS: POTASSIUM CHLOR 10 MEQ/100 ML 10 MEQ/100 ML BAG IV SCH (06:38)
[2023-12-26] MEDS: SODIUM CHLORIDE 0.9% 500 ML IV PRN (06:38)
--- NOTE | 2023-12-26 07:42 | PROVIDER PROGRESS NOTE ---
Assessment/Plan - Problem List (1) Acute respiratory failure with hypoxemia Assessment/Plan: Conclusion/Plan: Patient remains critically ill and continues to require artificial life support with mechanical ventilation. Ventilator settings: Assist-control, rate 14, PEEP 10 cmH2O, tidal volume 360, FiO2 55% Continue to wean FiO2 as tolerated. Acute respiratory failure is most likely multifactorial and secondary to anaphylaxis that resulted in acute pulmonary edema, chronic systolic heart failure with an estimated ejection fraction of 30 to 35% and underlying chronic obstructive pulmonary disease Patient is critically ill and continues to require artificial life support with mechanical ventilation. (2) Anaphylactic reaction to bee sting Conclusion/Plan: Anaphylaxis appears to have improved significantly. Continue to monitor (3) Acute on chronic systolic heart failure Conclusion/Plan: Continue Lasix 40 mg twice daily. Transthoracic echocardiogram performed in January 2023 where her LVEF was 30 to 35%. (4) COPD (chronic obstructive pulmonary disease) with hypoxia Conclusion/Plan: Continue DuoNebs and IV corticosteroids. (5) Hypokalemia Conclusion/Plan: Continue to replace as needed (6) Chronic atrial fibrillation Conclusion/Plan: Stable continue to monitor. (7) Diabetes mellitus type 2 in obese Conclusion/Plan: -Reportedly has an allergy to latex and subcutaneous insulin may contain some latex. -Will monitor Accu-Cheks and if significantly elevated may need to try oral medications or verify if an IV insulin infusion has the same latex. (8) Hx of coronary artery disease Conclusion/Plan: Continue aspirin 81 mg. (9) Hypertension Conclusion/Plan: Currently well-controlled. Continue to monitor. (10) Sleep apnea Conclusion/Plan: Will need to monitor for sleep apnea after extubation. Critical care time: Time spent reviewing chart, reviewing laboratory and radiology results, physical exam is 35 minutes. Time excludes any procedure time. - Current Meds Current Meds: Current Medications Generic Name Dose Route Start Last Admin Trade Name Freq PRN Reason Stop Dose Admin Albuterol/Ipratropium 3 ml 12/25/23 18:00 12/26/23 07:07 Ipratropium/Albuterol 3 Ml Neb INH 3 ml Q6HR ROMAN Administration Aspirin 81 mg 12/25/23 17:46 12/25/23 18:47 Aspirin Chew 81 Mg Tablet NG 81 mg DAILY ROMAN Administration Diphenhydramine HCl 25 mg 12/25/23 18:00 12/26/23 05:22 Diphenhydramine Inj 50 Mg/Ml Vial IVP 12/27/23 17:59 25 mg Q6H ROMAN Administration Famotidine 20 mg 12/25/23 21:00 12/25/23 21:02 Famotidine 20 Mg/2 Ml Vial IVP 20 mg BID ROMAN Administration Fentanyl 50 mcg 12/25/23 17:06 12/26/23 04:31 Fentanyl 100 Mcg/2 Ml Vial IVP 50 mcg Q2H PRN Administration PER PHYSICIAN ORDER Furosemide 40 mg 12/25/23 21:00 12/25/23 21:02 Furosemide 40 Mg/4 Ml Vial IVP 40 mg BID ROMAN Administration Sodium Chloride 500 mls @ 20 mls/hr 12/25/23 20:26 12/26/23 06:38 Normal Saline 0.9% IV 20 mls/hr Q24H PRN Administration TKO RATE Propofol 1,000 mg in 100 mls @ 6.6 mls/hr 12/26/23 02:00 12/26/23 07:07 Diprivan IV 40 mcg/kg/min .[id number] ROMAN 26.4 mls/hr Administration Protocol 10 MCG/KG/MIN Potassium Chloride 10 meq in 100 mls @ 100 mls/hr 12/26/23 07:00 12/26/23 06:38 Potassium Chloride IV 12/26/23 08:59 100 mls/hr Q1H ROMAN Administration Protocol Methylprednisolone 40 mg 12/25/23 20:00 12/25/23 20:24 Methylprednisolone Succinate 40 Mg/Ml Vial IVP Not Given BID ROMAN Sodium Chloride 10 ml 12/25/23 17:00 12/26/23 00:18 Sodium Chloride Flush 0.9% 10 Ml Syringe IVP Not Given 0100,0900,1700 ROMAN Sodium Chloride 10 ml 12/25/23 16:54 12/26/23 05:23 Sodium Chloride Flush 0.9% 10 Ml Syringe IVP 10 ml PRN PRN Administration NEEDED PER PROVIDER ORDERS - Lab Result Fish Bone Diagrams: 12/26/23 04:15 12/26/23 13:47 Subjective - Subjective Patient Reports: Other (Intubated and sedated. Following some commands.) Objective Vital Signs: Vital Signs - 24 hr 12/25/23 12/25/23 12/25/23 11:32 11:46 11:49 Temperature 36.3 C L Heart Rate 78 69 74 Heart Rate [ Monitoring electrodes] Respiratory 20 20 Rate Blood Pressure 152/81 H Blood Pressure [Right Radial artery] O2 Saturation 100 If not protocol : Oxygen Flow, liters/minute 12/25/23 12/25/23 12/25/23 12:01 12:15 12:30 Temperature Heart Rate 65 70 76 Heart Rate [ Monitoring electrodes] Respiratory 18 20 21 Rate Blood Pressure 141/84 H 138/74 H 142/80 H Blood Pressure [Right Radial artery] O2 Saturation 100 95 95 If not protocol 60 60 : Oxygen Flow, liters/minute 12/25/23 12/25/23 12/25/23 12:45 13:00 13:15 Temperature Heart Rate 77 69 73 Heart Rate [ Monitoring electrodes] Respiratory 20 12 18 Rate Blood Pressure 129/66 130/118 H 139/128 H Blood Pressure [Right Radial artery] O2 Saturation 94 98 94 If not protocol 60 60 60 : Oxygen Flow, liters/minute 12/25/23 12/25/23 12/25/23 13:30 13:45 14:00 Temperature Heart Rate 66 66 65 Heart Rate [ Monitoring electrodes] Respiratory 20 28 H 20 Rate Blood Pressure 114/61 107/67 134/71 H Blood Pressure [Right Radial artery] O2 Saturation 93 94 97 If not protocol 60 50 : Oxygen Flow, liters/minute 12/25/23 12/25/23 12/25/23 14:01 14:15 14:30 Temperature Heart Rate 68 68 68 Heart Rate [ Monitoring electrodes] Respiratory 20 20 Rate Blood Pressure 130/78 129/74 Blood Pressure [Right Radial artery] O2 Saturation 95 95 If not protocol 50 50 : Oxygen Flow, liters/minute 12/25/23 12/25/23 12/25/23 14:45 15:36 15:45 Temperature Heart Rate 67 65 65 Heart Rate [ Monitoring electrodes] Respiratory 21 20 Rate Blood Pressure 125/72 125/76 Blood Pressure [Right Radial artery] O2 Saturation 95 93 If not protocol 50 : Oxygen Flow, liters/minute 12/25/23 12/25/23 12/25/23 16:00 16:15 16:30 Temperature Heart Rate 73 70 72 Heart Rate [ Monitoring electrodes] Respiratory 20 20 20 Rate Blood Pressure 124/78 113/67 122/69 Blood Pressure [Right Radial artery] O2 Saturation 95 90 L 90 L If not protocol : Oxygen Flow, liters/minute 12/25/23 12/25/23 12/25/23 16:45 17:00 17:15 Temperature Heart Rate 60 69 71 Heart Rate [ Monitoring electrodes] Respiratory 19 19 22 Rate Blood Pressure 109/72 113/74 138/69 H Blood Pressure [Right Radial artery] O2 Saturation 90 L 90 L 91 L If not protocol : Oxygen Flow, liters/minute 12/25/23 12/25/23 12/25/23 17:47 18:00 19:00 Temperature Heart Rate 70 Heart Rate [ 73 70 Monitoring electrodes] Respiratory 20 20 Rate Blood Pressure Blood Pressure 125/78 115/62 [Right Radial artery] O2 Saturation 93 90 L If not protocol : Oxygen Flow, liters/minute 12/25/23 12/25/23 12/25/23 19:47 20:00 21:00 Temperature 36.7 C Heart Rate 70 Heart Rate [ 73 69 Monitoring electrodes] Respiratory 21 20 Rate Blood Pressure Blood Pressure 113/81 H 102/58 L [Right Radial artery] O2 Saturation 100 94 If not protocol : Oxygen Flow, liters/minute 12/25/23 12/25/23 12/25/23 22:00 22:52 23:00 Temperature Heart Rate 69 Heart Rate [ 71 77 Monitoring electrodes] Respiratory 20 20 Rate Blood Pressure Blood Pressure 120/62 117/61 [Right Radial artery] O2 Saturation 95 95 If not protocol : Oxygen Flow, liters/minute 12/26/23 12/26/23 12/26/23 00:00 00:49 01:00 Temperature 36.7 C Heart Rate 71 Heart Rate [ 60 70 Monitoring electrodes] Respiratory 20 20 Rate Blood Pressure Blood Pressure 109/59 L 110/67 [Right Radial artery] O2 Saturation 95 95 If not protocol : Oxygen Flow, liters/minute 12/26/23 12/26/23 12/26/23 02:00 03:00 03:45 Temperature Heart Rate 71 Heart Rate [ 60 60 Monitoring electrodes] Respiratory 20 20 Rate Blood Pressure Blood Pressure 103/56 L 112/57 L [Right Radial artery] O2 Saturation 94 95 If not protocol : Oxygen Flow, liters/minute 12/26/23 12/26/23 12/26/23 04:00 05:00 05:38 Temperature 37.1 C Heart Rate 75 Heart Rate [ 72 73 Monitoring electrodes] Respiratory 20 20 Rate Blood Pressure Blood Pressure 109/57 L 102/91 H [Right Radial artery] O2 Saturation 95 93 If not protocol : Oxygen Flow, liters/minute 12/26/23 12/26/23 12/26/23 06:00 07:00 07:04 Temperature Heart Rate 74 Heart Rate [ 74 74 Monitoring electrodes] Respiratory 20 20 Rate Blood Pressure Blood Pressure 112/58 L 103/58 L [Right Radial artery] O2 Saturation 97 98 If not protocol : Oxygen Flow, liters/minute 12/26/23 07:08 Temperature Heart Rate 64 Heart Rate [ Monitoring electrodes] Respiratory 20 Rate Blood Pressure Blood Pressure [Right Radial artery] O2 Saturation If not protocol : Oxygen Flow, liters/minute Oxygen O2 Source [With Activity] Room air O2 Source Mechanical ventilator I&O (Last 24 Hrs): Intake and Output Totals x24h 12/24/23 12/25/23 12/26/23 23:59 23:59 23:59 Intake Total 1577.818 100.000 Output Total 2518 513 Balance -940.182 -413.000 General: Alert, Other (Sedated and on ventilator) HEENT: Atraumatic Neck: No JVD, No thyromegaly, Other (Trachea midline) Neuro: Alert, Non Focal, Other (Moving all 4 extremities) Cardiovascular: Regular rate, Normal S1, Normal S2 Respiratory: Other (Fair air exchange in all lung field. Positive diffuse wheezing.) Abdomen: Normal bowel sounds, Soft, No tenderness Extremities: No cyanosis, No edema Skin: No rashes - Results Results: Laboratory Results WBC 14.6 x10^3/uL (4.8-10.8) H 12/26/23 04:15 RBC 4.62 10^6/uL (4.20-5.40) 12/26/23 04:15 Hgb 12.0 g/dL (12.0-16.0) 12/26/23 04:15 Hct 40.1 % (37.0-47.0) 12/26/23 04:15 MCV 86.8 fL (81.0-99.0) 12/26/23 04:15 MCH 26.0 pg (27.0-31.0) L 12/26/23 04:15 MCHC 29.9 g/dL (32.0-36.0) L 12/26/23 04:15 RDW 16.7 % (12.0-15.0) H 12/26/23 04:15 Plt Count 298 10^3/uL (130-450) 12/26/23 04:15 MPV 9.6 fL (7.9-10.8) 12/26/23 04:15 Neut # (Auto) 13.6 10^3/uL (1.5-6.6) H 12/26/23 04:15 Lymph # (Auto) 0.8 10^3/uL (1.5-3.5) L 12/26/23 04:15 Ralls # (Auto) 0.2 10^3/uL (0.0-1.0) 12/26/23 04:15 Eos # (Auto) 0.0 10^3/uL (0.0-0.7) 12/26/23 04:15 Baso # (Auto) 0.0 10^3/uL (0.0-0.1) 12/26/23 04:15 Absolute Nucleated RBC 0.00 x10^3/uL 12/26/23 04:15 Total Counted 100 12/25/23 11:40 Band Neuts % (Manual) 0 % (0-10) 12/25/23 11:40 Abnorm Lymph % (Manual) 0 % 12/25/23 11:40 Nucleated RBC % 0.0 /100WBC 12/26/23 04:15 Neutrophils # (Manual) 9.2 10^3/uL (1.5-6.6) H 12/25/23 11:40 Lymphocytes # (Manual) 4.1 10^3/uL (1.5-3.5) H 12/25/23 11:40 Monocytes # (Manual) 1.4 10^3/uL (0.0-1.0) H 12/25/23 11:40 Eosinophils # (Manual) 0.3 10^3/uL (0-0.7) 12/25/23 11:40 Basophils # (Manual) 0.2 10^3/uL (0-0.1) H 12/25/23 11:40 Differential Comment MANUAL DIFFERENTIAL 12/25/23 11:40 Manual Slide Review Indicated 12/25/23 11:40 WBC Morphology 2+ REACTIVE LYMPHS (NORMAL) 12/25/23 11:40 Platelet Estimate NORMAL (130-450,000) (NORMAL) 12/25/23 11:40 Platelet Morphology NORMAL APPEARANCE (NORMAL) 12/25/23 11:40 RBC Morph Micro Appear 1+ ANISOCYTOSIS (NORMAL) 12/25/23 11:40 Bld Gas Analysis Time 0531 12/26/23 05:25 Sample Site RIGHT RADIAL 12/26/23 05:25 ABG pH 7.44 (7.35-7.45) 12/26/23 05:25 ABG pCO2 44 mmHg (34-45) 12/26/23 05:25 ABG pO2 70 mmHg (80-100) L 12/26/23 05:25 ABG HCO3 28.7 mmol/L (22.0-26.0) H 12/26/23 05:25 ABG Total CO2 30.0 MMOL/L (21.0-29.0) H 12/26/23 05:25 ABG O2 Saturation 94 % (94-98) 12/26/23 05:25 ABG Base Excess 3.9 mmol/L (-2.0-3.0) H 12/26/23 05:25 Elio Test POSITIVE 12/26/23 05:25 VBG pH 7.432 (7.31-7.41) H 12/26/23 04:15 Ionized Calcium 1.16 mmol/L (1.15-1.33) 12/26/23 04:15 Respiration Rate 20 b/min 12/26/23 05:25 O2 Delivery Device VENTILATOR 12/26/23 05:25 Vent Mode SIMV 12/26/23 05:25 FiO2 70.00 12/26/23 05:25 Tidal Volume 360 mL 12/26/23 05:25 PEEP 5 cmH2O 12/25/23 15:12 Pressure Support Vent 12 cmH2O 12/25/23 15:12 Sodium 143 mmol/L (135-145) 12/26/23 04:15 Potassium 3.8 mmol/L (3.5-4.5) 12/26/23 04:15 Chloride 105 mmol/L (101-111) 12/26/23 04:15 Carbon Dioxide 29 mmol/L (21-32) 12/26/23 04:15 Anion Gap 9.0 (6-13) 12/26/23 04:15 BUN 19 mg/dL (6-20) 12/26/23 04:15 Creatinine 1.1 mg/dL (0.6-1.3) 12/26/23 04:15 Estimated GFR (MDRD) 51 (>89) L 12/26/23 04:15 Glucose 175 mg/dL (74-104) H 12/26/23 04:15 POC Whole Bld Glucose 175 mg/dL (70 - 100) H 12/26/23 05:58 Calcium 9.8 mg/dL (8.5-10.3) 12/26/23 04:15 Phosphorus 3.2 mg/dL (2.5-5.0) 12/26/23 04:15 Magnesium 2.0 mg/dL (1.7-2.3) 12/26/23 04:15 Total Bilirubin 0.3 mg/dL (0.2-1.0) 12/25/23 11:40 AST 18 IU/L (10-42) 12/25/23 11:40 ALT 13 IU/L (10-60) 12/25/23 11:40 Alkaline Phosphatase 117 IU/L (42-121) 12/25/23 11:40 Troponin I High Sens 85.2 ng/L (2.3-14.8) H* 12/26/23 04:15 B-Natriuretic Peptide 303 pg/mL (5-100) H 12/25/23 16:38 Total Protein 6.7 g/dL (6.4-8.9) 12/25/23 11:40 Albumin 3.9 g/dL (3.2-5.5) 12/25/23 11:40 Globulin 2.8 g/dL (2.1-4.2) 12/25/23 11:40 Albumin/Globulin Ratio 1.4 (1.0-2.2) 12/25/23 11:40 Lipase 27 U/L (11-82) 12/25/23 11:40 Nasal Adenovirus (PCR) NOT DETECTED 12/25/23 12:05 Nasal B. parapertussis DNA (PCR) NOT DETECTED 12/25/23 12:05 Nasal Coronavir 229E PCR NOT DETECTED 12/25/23 12:05 Nasal Coronavir HKU1 PCR NOT DETECTED 12/25/23 12:05 Nasal Coronavir NL63 PCR NOT DETECTED 12/25/23 12:05 Nasal Coronavir OC43 PCR NOT DETECTED 12/25/23 12:05 Nasal Enterovir/Rhinovir PCR NOT DETECTED 12/25/23 12:05 Nasal Influenza B PCR NOT DETECTED 12/25/23 12:05 Nasal Influenza A PCR NOT DETECTED 12/25/23 12:05 Nasal Parainfluen 1 PCR NOT DETECTED 12/25/23 12:05 Nasal Parainfluen 2 PCR NOT DETECTED 12/25/23 12:05 Nasal Parainfluen 3 PCR NOT DETECTED 12/25/23 12:05 Nasal Parainfluen 4 PCR NOT DETECTED 12/25/23 12:05 Nasal RSV (PCR) NOT DETECTED 12/25/23 12:05 Nasal Screen MRSA (PCR) NEGATIVE (NEGATIVE) 12/25/23 17:35 Nasal B.pertussis DNA PCR NOT DETECTED 12/25/23 12:05 Nasal C.pneumoniae (PCR) NOT DETECTED 12/25/23 12:05 Azar Human Metapneumo PCR NOT DETECTED 12/25/23 12:05 Nasal M.pneumoniae (PCR) NOT DETECTED 12/25/23 12:05 Nasal SARS-CoV-2 (PCR) NOT DETECTED 12/25/23 12:05 Urine Opiates Screen NEGATIVE (NEGATIVE) 12/25/23 20:10 Ur Buprenorphine Scrn NEGATIVE (NEGATIVE) 12/25/23 20:10 Ur Oxycodone Screen NEGATIVE (NEGATIVE) 12/25/23 20:10 Urine Methadone Screen NEGATIVE (NEGATIVE) 12/25/23 20:10 Ur Barbiturates Screen NEGATIVE (NEGATIVE) 12/25/23 20:10 Ur Tricyclics Screen NEGATIVE (NEGATIVE) 12/25/23 20:10 Ur Phencyclidine Scrn NEGATIVE (NEGATIVE) 12/25/23 20:10 Ur Amphetamine Screen NEGATIVE (NEGATIVE) 12/25/23 20:10 U Methamphetamines Scrn NEGATIVE (NEGATIVE) 12/25/23 20:10 U Benzodiazepines Scrn NEGATIVE (NEGATIVE) 12/25/23 20:10 Urine Cocaine Screen NEGATIVE (NEGATIVE) 12/25/23 20:10 U Cannabinoids Screen NEGATIVE (NEGATIVE) 12/25/23 20:10 Ur Drug Screen Comment CUTOFF CONC BELOW: 12/25/23 20:10 - Procedures Procedures: Procedures (02/05/21) ESOPHAGOGASTRODUODENOSCOPY [EGD] W/CLOSED BIOPSY (11/29/13) INSERTION OF INFUSION DEV INTO SUP VENA CAVA, PERC APPROACH (12/28/17) MANUAL RUPT JOINT ADHES (04/27/14) TOTAL KNEE REPLACEMENT (06/16/14) Sepsis Event Note (H) - Evaluation Current Stage of Sepsis: Ruled out
[2023-12-26] MEDS: POTASSIUM CHLORIDE 20 MEQ/15 ML UDC NG ONE (08:50)
[2023-12-26] MEDS: ENOXAPARIN 40 MG/0.4 ML SYRINGE SUBQ SCH (08:50)
--- NOTE | 2023-12-26 12:25 | XRAY Report ---
PROCEDURE: Chest 1V INDICATIONS: Intubated patient with hypoxemia TECHNIQUE: One view of the chest was acquired. COMPARISON: 12/25/2023 FINDINGS: Surgical changes and devices: There is a possible right IJ central venous line tip projecting over t he mid right heart which appears new from prior exam. Position is difficult to assess due to rotation . Other lines and tubes unchanged. Left-sided biventricular pacemaker/defibrillator present. Lungs and pleura: Moderate vascular congestion Mediastinum: Mediastinal contours appear normal. Heart size is enlarged. Obscuration left hemidiaph ragm. No pneumothorax. Bones and chest wall: No suspicious bony lesions. Overlying soft tissues appear unremarkable. IMPRESSION: New probable right IJ central venous line with the tip projecting over the upper mid heart, location uncertain. Advise repeat straight AP chest x-ray with increased technique Other lines and tubes unchanged. No pneumothorax. Reviewed by: David Garcia MD on 12/26/2023 11:23 AM JORGE L Approved by: David Garcia MD on 12/26/2023 11:23 AM [facility] Station ID: [id number]
--- NOTE | 2023-12-26 17:26 | PHARMACY PROGRESS NOTE ---
- Best Possible Medication History Admit Date and Time: 12/25/23 3400 Processed by: Pharmacy Medications reviewed in ED?: Yes Medication History completed: Yes Patient Interview: Completed Secondary Source(s): Written medication list, Pharmacy records, Insurance records As the person ultimately responsible for medication therapy, providers are able to order a medication from an existing home medication list in [facility] via the "Reconcile Routine" prior to Confirmation of that medication by operations support analyst. Such practice is discouraged except when the physician, in their clinical judgment, deems that a medical need exists for a medication without regard to previous use.
[2023-12-27 05:14] LABS: BASOPHILS % (AUTO) 0.1 %; HGB - HEMOGLOBIN 11.6 g/dL (12.0-16.0); LYMPHOCYTES # (AUTO) 0.6 10^3/uL (1.5-3.5); LYMPHOCYTES % (AUTO) 3.5 %; MEAN CORPUSCULAR HEMOGLOBIN 26.2 pg (27.0-31.0); MEAN CORPUSCULAR HGB CONC 30.5 g/dL (32.0-36.0); MEAN CORPUSCULAR VOLUME 85.8 fL (81.0-99.0); MEAN PLATELET VOLUME 9.9 fL (7.9-10.8); MONOCYTES # (AUTO) 0.5 10^3/uL (0.0-1.0); MONOCYTES % (AUTO) 2.8 %; NEUTROPHILS # (AUTO) 16.7 10^3/uL (1.5-6.6); NEUTROPHILS % (AUTO) 93.2 %; PLT - PLATELET COUNT 331 10^3/uL (130-450); RED BLOOD COUNT 4.43 10^6/uL (4.20-5.40); RED CELL DISTRIBUTION WIDTH 17.6 % (12.0-15.0); WHITE BLOOD COUNT 17.9 x10^3/uL (4.8-10.8)
[2023-12-27 05:25] LABS: CALCIUM, IONIZED 1.14 mmol/L (1.15-1.33); VBG PH 7.476 (7.31-7.41)
[2023-12-27 05:33] LABS: ALBUMIN 3.5 g/dL (3.2-5.5); ALKALINE PHOSPHATASE 88 IU/L (42-121); ALT ALANINE AMINOTRANSFERASE 11 IU/L (10-60); AST ASPARTATE AMINOTRANSFERASE 9 IU/L (10-42); BILIRUBIN,DIRECT < 0.10 mg/dL (0.03-0.18); BILIRUBIN,TOTAL 0.3 mg/dL (0.2-1.0); BUN - BLOOD UREA NITROGEN 37 mg/dL (6-20); CALCIUM 9.4 mg/dL (8.5-10.3); CARBON DIOXIDE - CO2 29 mmol/L (21-32); CHLORIDE 106 mmol/L (101-111); CREATININE 1.4 mg/dL (0.6-1.3); GFR - MDRD 38 (>89); GLUCOSE 190 mg/dL (74-104); MAGNESIUM 2.2 mg/dL (1.7-2.3); PHOSPHORUS 5.1 mg/dL (2.5-5.0); POTASSIUM 4.4 mmol/L (3.5-4.5); SODIUM 144 mmol/L (135-145); TOTAL PROTEIN 6.1 g/dL (6.4-8.9)
--- NOTE | 2023-12-27 08:18 | PROVIDER PROGRESS NOTE ---
Assessment/Plan - Problem List (1) Acute respiratory failure with hypoxemia Assessment/Plan: Patient remains critically ill and continues to require artificial life support with mechanical ventilation. Ventilator settings: Assist-control, rate 14, PEEP 14 cmH2O, tidal volume 360, FiO2 45%. Over the last 24 hours, her oxygenation has improved. FiO2 has been decreased to 40%. Throughout the day, PEEP was decreased from 11 cm of water to 8 cm water. Patient underwent a spontaneous breathing trial and did well and was subsequently extubated this evening at 5 PM. (2) Anaphylactic reaction to bee sting Conclusion/Plan: Anaphylaxis appears to have resolved. Continue to monitor (3) Acute on chronic systolic heart failure Conclusion/Plan: Continue Lasix 20 mg twice daily. Transthoracic echocardiogram performed in January 2023 where her LVEF was 30 to 35%. (4) COPD (chronic obstructive pulmonary disease) with hypoxia Conclusion/Plan: Continue DuoNebs and IV corticosteroids.Clinically patient does not appear to be having an exacerbation of her COPD at this time. (5) Hypokalemia Conclusion/Plan: Continue to replace as needed (6) Chronic atrial fibrillation Conclusion/Plan: Stable continue to monitor. Continue anticoagulation with IV heparin. (7) Diabetes mellitus type 2 in obese Conclusion/Plan: Initiate sliding scale insulin. (8) Hx of coronary artery disease Conclusion/Plan: Continue aspirin 81 mg. (9) Hypertension Conclusion/Plan: Currently well-controlled. Continue to monitor. (10) Sleep apnea Conclusion/Plan: Will need to monitor for sleep apnea after extubation. - Current Meds Current Meds: Current Medications Generic Name Dose Route Start Last Admin Trade Name Freq PRN Reason Stop Dose Admin Albuterol/Ipratropium 3 ml 12/25/23 18:00 12/27/23 07:06 Ipratropium/Albuterol 3 Ml Neb INH 3 ml Q6HR ROMAN Administration Aspirin 81 mg 12/25/23 17:46 12/27/23 08:05 Aspirin Chew 81 Mg Tablet NG 81 mg DAILY ROMAN Administration Diphenhydramine HCl 25 mg 12/25/23 18:00 12/27/23 06:02 Diphenhydramine Inj 50 Mg/Ml Vial IVP 12/27/23 17:59 25 mg Q6H ROMAN Administration Enoxaparin Sodium 40 mg 12/26/23 09:00 12/27/23 08:05 Enoxaparin 40 Mg/0.4 Ml Syringe SUBQ 40 mg DAILY ROMAN Administration Famotidine 20 mg 12/25/23 21:00 12/27/23 08:05 Famotidine 20 Mg/2 Ml Vial IVP 20 mg BID ROMAN Administration Fentanyl 50 mcg 12/25/23 17:06 12/27/23 08:05 Fentanyl 100 Mcg/2 Ml Vial IVP 50 mcg Q2H PRN Administration PER PHYSICIAN ORDER Furosemide 40 mg 12/25/23 21:00 12/27/23 08:05 Furosemide 40 Mg/4 Ml Vial IVP 40 mg BID ROMAN Administration Sodium Chloride 500 mls @ 20 mls/hr 12/25/23 20:26 12/26/23 06:38 Normal Saline 0.9% IV 20 mls/hr Q24H PRN Administration TKO RATE Propofol 1,000 mg in 100 mls @ 6.6 mls/hr 12/26/23 02:00 12/27/23 06:02 Diprivan IV 30 mcg/kg/min .[id number] ROMAN 19.8 mls/hr Administration Protocol 10 MCG/KG/MIN Methylprednisolone 40 mg 12/25/23 20:00 12/27/23 08:05 Methylprednisolone Succinate 40 Mg/Ml Vial IVP 40 mg BID ROMAN Administration Sodium Chloride 10 ml 12/25/23 17:00 12/27/23 08:06 Sodium Chloride Flush 0.9% 10 Ml Syringe IVP 10 ml 0100,0900,1700 ROMAN Administration Sodium Chloride 10 ml 12/25/23 16:54 12/27/23 06:05 Sodium Chloride Flush 0.9% 10 Ml Syringe IVP 10 ml PRN PRN Administration NEEDED PER PROVIDER ORDERS - Lab Result Fish Bone Diagrams: 12/28/23 09:00 12/29/23 04:41 - Additional Planning My Orders: My Active Orders 12/26/23 17:25 NonViolent Restraint(s) Q24H Subjective - Subjective Patient Reports: Other (Patient is alert and denies chest pain and abdominal pain. She reports her breathing is at baseline at this time. She has no other complaints.) Objective Vital Signs: Vital Signs - 24 hr 12/26/23 12/26/23 12/26/23 09:00 09:18 10:00 Temperature Heart Rate 78 Heart Rate [ 77 63 Monitoring electrodes] Respiratory 24 24 Rate Blood Pressure 119/61 102/59 L [Right Radial artery] O2 Saturation 94 91 L 12/26/23 12/26/23 12/26/23 11:00 12:00 13:00 Temperature 37.3 C Heart Rate Heart Rate [ 80 74 74 Monitoring electrodes] Respiratory 24 22 29 H Rate Blood Pressure 107/62 104/66 100/48 L [Right Radial artery] O2 Saturation 92 92 93 12/26/23 12/26/23 12/26/23 13:10 13:14 14:00 Temperature Heart Rate 80 68 Heart Rate [ 80 Monitoring electrodes] Respiratory 20 23 Rate Blood Pressure 98/53 L [Right Radial artery] O2 Saturation 91 L 12/26/23 12/26/23 12/26/23 15:00 15:03 16:00 Temperature 37.4 C Heart Rate 74 Heart Rate [ 76 77 Monitoring electrodes] Respiratory 20 25 H Rate Blood Pressure 102/50 L 104/52 L [Right Radial artery] O2 Saturation 96 90 L 12/26/23 12/26/23 12/26/23 17:00 17:48 18:00 Temperature Heart Rate 74 Heart Rate [ 78 85 Monitoring electrodes] Respiratory 22 25 H Rate Blood Pressure 115/71 116/47 L [Right Radial artery] O2 Saturation 91 L 90 L 12/26/23 12/26/23 12/26/23 19:00 19:11 19:21 Temperature Heart Rate 77 80 Heart Rate [ 77 Monitoring electrodes] Respiratory 25 H 20 Rate Blood Pressure 98/55 L [Right Radial artery] O2 Saturation 93 12/26/23 12/26/23 12/26/23 20:00 21:00 21:30 Temperature 37.2 C Heart Rate 73 Heart Rate [ 78 80 Monitoring electrodes] Respiratory 21 21 Rate Blood Pressure 117/55 L 103/48 L [Right Radial artery] O2 Saturation 93 92 12/26/23 12/26/23 12/26/23 22:00 23:00 23:35 Temperature Heart Rate 72 Heart Rate [ 80 69 Monitoring electrodes] Respiratory 21 21 Rate Blood Pressure 113/66 112/61 [Right Radial artery] O2 Saturation 94 95 12/27/23 12/27/23 12/27/23 00:00 01:00 01:48 Temperature 37.3 C Heart Rate 68 Heart Rate [ 80 83 Monitoring electrodes] Respiratory 25 H 25 H Rate Blood Pressure 120/54 L 108/66 [Right Radial artery] O2 Saturation 94 94 12/27/23 12/27/23 12/27/23 02:00 03:00 03:30 Temperature Heart Rate 73 Heart Rate [ 79 77 Monitoring electrodes] Respiratory 22 23 Rate Blood Pressure 114/61 112/59 L [Right Radial artery] O2 Saturation 95 94 12/27/23 12/27/23 12/27/23 04:00 05:00 05:36 Temperature 37.0 C Heart Rate 76 Heart Rate [ 76 75 Monitoring electrodes] Respiratory 22 25 H Rate Blood Pressure 114/62 111/62 [Right Radial artery] O2 Saturation 95 93 12/27/23 12/27/23 12/27/23 06:00 07:00 07:07 Temperature Heart Rate 75 Heart Rate [ 73 72 Monitoring electrodes] Respiratory 19 23 22 Rate Blood Pressure 110/68 116/67 [Right Radial artery] O2 Saturation 92 92 Oxygen O2 Source [With Activity] Room air O2 Source Mechanical ventilator I&O (Last 24 Hrs): Intake and Output Totals x24h 12/25/23 12/26/23 12/27/23 23:59 23:59 23:59 Intake Total 1577.818 545.530 190.42 Output Total 2518 1568 603 Balance -940.182 -1022.470 -412.58 General: Alert, Oriented x3, No acute distress HEENT: Atraumatic Neck: No JVD Neuro: Alert, Non Focal Cardiovascular: Other (Positive S1-S2 no extra heart sounds) Respiratory: Other (Good air exchange in all lung mathews no wheezing no crackles) Abdomen: Other (Soft nontender nondistended positive bowel) Extremities: No cyanosis, No edema, Other Skin: No rashes - Results Results: Laboratory Results WBC 17.9 x10^3/uL (4.8-10.8) H 12/27/23 04:20 RBC 4.43 10^6/uL (4.20-5.40) 12/27/23 04:20 Hgb 11.6 g/dL (12.0-16.0) L 12/27/23 04:20 Hct 38.0 % (37.0-47.0) 12/27/23 04:20 MCV 85.8 fL (81.0-99.0) 12/27/23 04:20 MCH 26.2 pg (27.0-31.0) L 12/27/23 04:20 MCHC 30.5 g/dL (32.0-36.0) L 12/27/23 04:20 RDW 17.6 % (12.0-15.0) H 12/27/23 04:20 Plt Count 331 10^3/uL (130-450) 12/27/23 04:20 MPV 9.9 fL (7.9-10.8) 12/27/23 04:20 Neut # (Auto) 16.7 10^3/uL (1.5-6.6) H 12/27/23 04:20 Lymph # (Auto) 0.6 10^3/uL (1.5-3.5) L 12/27/23 04:20 [place] # (Auto) 0.5 10^3/uL (0.0-1.0) 12/27/23 04:20 Eos # (Auto) 0.0 10^3/uL (0.0-0.7) 12/27/23 04:20 Baso # (Auto) 0.0 10^3/uL (0.0-0.1) 12/27/23 04:20 Absolute Nucleated RBC 0.00 x10^3/uL 12/27/23 04:20 Total Counted 100 12/25/23 11:40 Band Neuts % (Manual) 0 % (0-10) 12/25/23 11:40 Abnorm Lymph % (Manual) 0 % 12/25/23 11:40 Nucleated RBC % 0.0 /100WBC 12/27/23 04:20 Neutrophils # (Manual) 9.2 10^3/uL (1.5-6.6) H 12/25/23 11:40 Lymphocytes # (Manual) 4.1 10^3/uL (1.5-3.5) H 12/25/23 11:40 Monocytes # (Manual) 1.4 10^3/uL (0.0-1.0) H 12/25/23 11:40 Eosinophils # (Manual) 0.3 10^3/uL (0-0.7) 12/25/23 11:40 Basophils # (Manual) 0.2 10^3/uL (0-0.1) H 12/25/23 11:40 Differential Comment MANUAL DIFFERENTIAL 12/25/23 11:40 Manual Slide Review Indicated 12/25/23 11:40 WBC Morphology 2+ REACTIVE LYMPHS (NORMAL) 12/25/23 11:40 Platelet Estimate NORMAL (130-450,000) (NORMAL) 12/25/23 11:40 Platelet Morphology NORMAL APPEARANCE (NORMAL) 12/25/23 11:40 RBC Morph Micro Appear 1+ ANISOCYTOSIS (NORMAL) 12/25/23 11:40 Bld Gas Analysis Time 0531 12/26/23 05:25 Sample Site RIGHT RADIAL 12/26/23 05:25 ABG pH 7.44 (7.35-7.45) 12/26/23 05:25 ABG pCO2 44 mmHg (34-45) 12/26/23 05:25 ABG pO2 70 mmHg (80-100) L 12/26/23 05:25 ABG HCO3 28.7 mmol/L (22.0-26.0) H 12/26/23 05:25 ABG Total CO2 30.0 MMOL/L (21.0-29.0) H 12/26/23 05:25 ABG O2 Saturation 94 % (94-98) 12/26/23 05:25 ABG Base Excess 3.9 mmol/L (-2.0-3.0) H 12/26/23 05:25 Elio Test POSITIVE 12/26/23 05:25 VBG pH 7.476 (7.31-7.41) H 12/27/23 04:20 Ionized Calcium 1.14 mmol/L (1.15-1.33) L 12/27/23 04:20 Respiration Rate 20 b/min 12/26/23 05:25 O2 Delivery Device VENTILATOR 12/26/23 05:25 Vent Mode SIMV 12/26/23 05:25 FiO2 70.00 12/26/23 05:25 Tidal Volume 360 mL 12/26/23 05:25 PEEP 5 cmH2O 12/25/23 15:12 Pressure Support Vent 12 cmH2O 12/25/23 15:12 Sodium 144 mmol/L (135-145) 12/27/23 04:20 Potassium 4.4 mmol/L (3.5-4.5) 12/27/23 04:20 Chloride 106 mmol/L (101-111) 12/27/23 04:20 Carbon Dioxide 29 mmol/L (21-32) 12/27/23 04:20 Anion Gap 9.0 (6-13) 12/27/23 04:20 BUN 37 mg/dL (6-20) H 12/27/23 04:20 Creatinine 1.4 mg/dL (0.6-1.3) H 12/27/23 04:20 Estimated GFR (MDRD) 38 (>89) L 12/27/23 04:20 Glucose 190 mg/dL (74-104) H 12/27/23 04:20 POC Whole Bld Glucose 160 mg/dL (70 - 100) H 12/27/23 06:00 Calcium 9.4 mg/dL (8.5-10.3) 12/27/23 04:20 Phosphorus 5.1 mg/dL (2.5-5.0) H 12/27/23 04:20 Magnesium 2.2 mg/dL (1.7-2.3) 12/27/23 04:20 Total Bilirubin 0.3 mg/dL (0.2-1.0) 12/27/23 04:20 Direct Bilirubin < 0.10 mg/dL (0.03-0.18) 12/27/23 04:20 AST 9 IU/L (10-42) L 12/27/23 04:20 ALT 11 IU/L (10-60) 12/27/23 04:20 Alkaline Phosphatase 88 IU/L (42-121) 12/27/23 04:20 Troponin I High Sens 85.2 ng/L (2.3-14.8) H* 12/26/23 04:15 B-Natriuretic Peptide 303 pg/mL (5-100) H 12/25/23 16:38 Total Protein 6.1 g/dL (6.4-8.9) L 12/27/23 04:20 Albumin 3.5 g/dL (3.2-5.5) 12/27/23 04:20 Globulin 2.6 g/dL (2.1-4.2) 12/27/23 04:20 Albumin/Globulin Ratio 1.4 (1.0-2.2) 12/25/23 11:40 Triglycerides 111 mg/dL 12/26/23 04:15 Lipase 27 U/L (11-82) 12/25/23 11:40 Nasal Adenovirus (PCR) NOT DETECTED 12/25/23 12:05 Nasal B. parapertussis DNA (PCR) NOT DETECTED 12/25/23 12:05 Nasal Coronavir 229E PCR NOT DETECTED 12/25/23 12:05 Nasal Coronavir HKU1 PCR NOT DETECTED 12/25/23 12:05 Nasal Coronavir NL63 PCR NOT DETECTED 12/25/23 12:05 Nasal Coronavir OC43 PCR NOT DETECTED 12/25/23 12:05 Nasal Enterovir/Rhinovir PCR NOT DETECTED 12/25/23 12:05 Nasal Influenza B PCR NOT DETECTED 12/25/23 12:05 Nasal Influenza A PCR NOT DETECTED 12/25/23 12:05 Nasal Parainfluen 1 PCR NOT DETECTED 12/25/23 12:05 Nasal Parainfluen 2 PCR NOT DETECTED 12/25/23 12:05 Nasal Parainfluen 3 PCR NOT DETECTED 12/25/23 12:05 Nasal Parainfluen 4 PCR NOT DETECTED 12/25/23 12:05 Nasal RSV (PCR) NOT DETECTED 12/25/23 12:05 Nasal Screen MRSA (PCR) NEGATIVE (NEGATIVE) 12/25/23 17:35 Nasal B.pertussis DNA PCR NOT DETECTED 12/25/23 12:05 Nasal C.pneumoniae (PCR) NOT DETECTED 12/25/23 12:05 Azar Human Metapneumo PCR NOT DETECTED 12/25/23 12:05 Nasal M.pneumoniae (PCR) NOT DETECTED 12/25/23 12:05 Nasal SARS-CoV-2 (PCR) NOT DETECTED 12/25/23 12:05 Urine Opiates Screen NEGATIVE (NEGATIVE) 12/25/23 20:10 Ur Buprenorphine Scrn NEGATIVE (NEGATIVE) 12/25/23 20:10 Ur Oxycodone Screen NEGATIVE (NEGATIVE) 12/25/23 20:10 Urine Methadone Screen NEGATIVE (NEGATIVE) 12/25/23 20:10 Ur Barbiturates Screen NEGATIVE (NEGATIVE) 12/25/23 20:10 Ur Tricyclics Screen NEGATIVE (NEGATIVE) 12/25/23 20:10 Ur Phencyclidine Scrn NEGATIVE (NEGATIVE) 12/25/23 20:10 Ur Amphetamine Screen NEGATIVE (NEGATIVE) 12/25/23 20:10 U Methamphetamines Scrn NEGATIVE (NEGATIVE) 12/25/23 20:10 U Benzodiazepines Scrn NEGATIVE (NEGATIVE) 12/25/23 20:10 Urine Cocaine Screen NEGATIVE (NEGATIVE) 12/25/23 20:10 U Cannabinoids Screen NEGATIVE (NEGATIVE) 12/25/23 20:10 Ur Drug Screen Comment CUTOFF CONC BELOW: 12/25/23 20:10 - Procedures Procedures: Procedures (02/05/21) ESOPHAGOGASTRODUODENOSCOPY [EGD] W/CLOSED BIOPSY (11/29/13) INSERTION OF INFUSION DEV INTO SUP VENA CAVA, PERC APPROACH (12/28/17) MANUAL RUPT JOINT ADHES (04/27/14) TOTAL KNEE REPLACEMENT (06/16/14) Sepsis Event Note (H) - Evaluation Current Stage of Sepsis: Ruled out
--- NOTE | 2023-12-27 11:15 | PROVIDER PROGRESS NOTE ---
Assessment/Plan - Problem List (1) Acute respiratory failure with hypoxemia Assessment/Plan: Assessment/Plan: Patient remains critically ill and continues to require artificial life support with mechanical ventilation. Ventilator settings: Assist-control, rate 14, PEEP 12 cmH2O, tidal volume 360, FiO2 70%. Her respiratory status has not improved overnight. Currently her oxygen requirement has increased to 70%. Etiology of respiratory failure is most likely related to anaphylaxis and chronic systolic heart failure with an ejection fraction of 30%. Patient remains afebrile but has copious secretions and an elevated white count. Empiric treatment with antibiotics will be initiated. Continue to wean FiO2 as tolerated. Patient is critically ill and continues to have a life-threatening condition requiring artificial life support with mechanical ventilation. (2) Anaphylactic reaction to bee sting Conclusion/Plan: Anaphylaxis appears to have resolved. Continue to monitor (3) Acute on chronic systolic heart failure Conclusion/Plan: Lasix discontinued given increase in creatinine. Check creatinine in at 1600. Transthoracic echocardiogram performed in January 2023 where her LVEF was 30 to 35%. (4) COPD (chronic obstructive pulmonary disease) with hypoxia Conclusion/Plan: Continue DuoNebs and IV corticosteroids.Clinically patient does not appear to be having an exacerbation of her COPD at this time. (5) Hypokalemia Conclusion/Plan: Continue to replace as needed (6) Chronic atrial fibrillation Conclusion/Plan: Stable continue to monitor. Treatment with IV heparin has been initiated (7) Diabetes mellitus type 2 in obese Conclusion/Plan: Initiate sliding scale insulin. (8) Hx of coronary artery disease Conclusion/Plan: Continue aspirin 81 mg. (9) Hypertension Conclusion/Plan: Currently well-controlled. Continue to monitor. (10) Sleep apnea Conclusion/Plan: Will need to monitor for sleep apnea after extubation. Critical care time: Time spent reviewing chart, reviewing laboratory and r adiology results, physical exam and writing orders is 42 minutes. Time excludes any procedure time. - Current Meds Current Meds: Current Medications Generic Name Dose Route Start Last Admin Trade Name Freq PRN Reason Stop Dose Admin Albuterol/Ipratropium 3 ml 12/25/23 18:00 12/27/23 07:06 Ipratropium/Albuterol 3 Ml Neb INH 3 ml Q6HR ROMAN Administration Aspirin 81 mg 12/25/23 17:46 12/27/23 08:05 Aspirin Chew 81 Mg Tablet NG 81 mg DAILY ROMAN Administration Diphenhydramine HCl 25 mg 12/25/23 18:00 12/27/23 06:02 Diphenhydramine Inj 50 Mg/Ml Vial IVP 12/27/23 17:59 25 mg Q6H ROMAN Administration Enoxaparin Sodium 40 mg 12/26/23 09:00 12/27/23 08:05 Enoxaparin 40 Mg/0.4 Ml Syringe SUBQ 40 mg DAILY ROMAN Administration Famotidine 20 mg 12/25/23 21:00 12/27/23 08:05 Famotidine 20 Mg/2 Ml Vial IVP 20 mg BID ROMAN Administration Fentanyl 50 mcg 12/25/23 17:06 12/27/23 08:05 Fentanyl 100 Mcg/2 Ml Vial IVP 50 mcg Q2H PRN Administration PER PHYSICIAN ORDER Sodium Chloride 500 mls @ 20 mls/hr 12/25/23 20:26 12/26/23 06:38 Normal Saline 0.9% IV 20 mls/hr Q24H PRN Administration TKO RATE Propofol 1,000 mg in 100 mls @ 6.6 mls/hr 12/26/23 02:00 12/27/23 10:23 Diprivan IV 30 mcg/kg/min .[id number] ROMAN 19.8 mls/hr Administration Protocol 10 MCG/KG/MIN Methylprednisolone 40 mg 12/25/23 20:00 12/27/23 08:05 Methylprednisolone Succinate 40 Mg/Ml Vial IVP 40 mg BID ROMAN Administration Sodium Chloride 10 ml 12/25/23 17:00 12/27/23 08:06 Sodium Chloride Flush 0.9% 10 Ml Syringe IVP 10 ml 0100,0900,1700 ROMAN Administration Sodium Chloride 10 ml 12/25/23 16:54 12/27/23 06:05 Sodium Chloride Flush 0.9% 10 Ml Syringe IVP 10 ml PRN PRN Administration NEEDED PER PROVIDER ORDERS - Lab Result Fish Bone Diagrams: 12/27/23 11:39 12/27/23 18:56 - Additional Planning My Orders: My Active Orders 12/26/23 17:25 NonViolent Restraint(s) Q24H 12/27/23 05:00 HEMOGLOBIN A1c% [CHEM] Routine 12/27/23 10:29 Tube Feeding [RC] QSHIFT 12/27/23 10:45 Daily Weight [RC] DAILY IO [RC] QSHIFT Tube Feeding [RC] QSHIFT 12/27/23 11:09 Miscellaenous Nursing Order [RC] ONCE 12/28/23 05:00 PHOSPHORUS [CHEM] Timed PREALBUMIN [CHEM] Timed 12/28/23 09:00 polyethylene glycoL 3350 [Miralax] 17 gm PO DAILY 12/30/23 05:00 PREALBUMIN [CHEM] Timed 01/02/24 05:00 PHOSPHORUS [CHEM] Timed PREALBUMIN [CHEM] Timed Subjective - Subjective Patient Reports: Other (Intubated and sedated. Following commands.) Objective Vital Signs: Vital Signs - 24 hr 12/26/23 12/26/23 12/26/23 12:00 13:00 13:10 Temperature 37.3 C Heart Rate 80 Heart Rate [ 74 74 Monitoring electrodes] Respiratory 22 29 H Rate Blood Pressure 104/66 100/48 L [Right Radial artery] O2 Saturation 92 93 12/26/23 12/26/23 12/26/23 13:14 14:00 15:00 Temperature Heart Rate 68 Heart Rate [ 80 76 Monitoring electrodes] Respiratory 20 23 20 Rate Blood Pressure 98/53 L 102/50 L [Right Radial artery] O2 Saturation 91 L 96 12/26/23 12/26/23 12/26/23 15:03 16:00 17:00 Temperature 37.4 C Heart Rate 74 Heart Rate [ 77 78 Monitoring electrodes] Respiratory 25 H 22 Rate Blood Pressure 104/52 L 115/71 [Right Radial artery] O2 Saturation 90 L 91 L 12/26/23 12/26/23 12/26/23 17:48 18:00 19:00 Temperature Heart Rate 74 Heart Rate [ 85 77 Monitoring electrodes] Respiratory 25 H 25 H Rate Blood Pressure 116/47 L 98/55 L [Right Radial artery] O2 Saturation 90 L 93 12/26/23 12/26/23 12/26/23 19:11 19:21 20:00 Temperature 37.2 C Heart Rate 77 80 Heart Rate [ 78 Monitoring electrodes] Respiratory 20 21 Rate Blood Pressure 117/55 L [Right Radial artery] O2 Saturation 93 12/26/23 12/26/23 12/26/23 21:00 21:30 22:00 Temperature Heart Rate 73 Heart Rate [ 80 80 Monitoring electrodes] Respiratory 21 21 Rate Blood Pressure 103/48 L 113/66 [Right Radial artery] O2 Saturation 92 94 12/26/23 12/26/23 12/27/23 23:00 23:35 00:00 Temperature 37.3 C Heart Rate 72 Heart Rate [ 69 80 Monitoring electrodes] Respiratory 21 25 H Rate Blood Pressure 112/61 120/54 L [Right Radial artery] O2 Saturation 95 94 12/27/23 12/27/23 12/27/23 01:00 01:48 02:00 Temperature Heart Rate 68 Heart Rate [ 83 79 Monitoring electrodes] Respiratory 25 H 22 Rate Blood Pressure 108/66 114/61 [Right Radial artery] O2 Saturation 94 95 12/27/23 12/27/23 12/27/23 03:00 03:30 04:00 Temperature 37.0 C Heart Rate 73 Heart Rate [ 77 76 Monitoring electrodes] Respiratory 23 22 Rate Blood Pressure 112/59 L 114/62 [Right Radial artery] O2 Saturation 94 95 12/27/23 12/27/23 12/27/23 05:00 05:36 06:00 Temperature Heart Rate 76 Heart Rate [ 75 73 Monitoring electrodes] Respiratory 25 H 19 Rate Blood Pressure 111/62 110/68 [Right Radial artery] O2 Saturation 93 92 12/27/23 12/27/23 12/27/23 07:00 07:07 08:00 Temperature 36.7 C Heart Rate 75 Heart Rate [ 72 84 Monitoring electrodes] Respiratory 23 22 20 Rate Blood Pressure 116/67 131/63 H [Right Radial artery] O2 Saturation 92 92 12/27/23 12/27/23 12/27/23 08:54 09:34 10:00 Temperature Heart Rate 89 Heart Rate [ 84 74 Monitoring electrodes] Respiratory 24 23 Rate Blood Pressure 122/58 L 131/61 H [Right Radial artery] O2 Saturation 90 L 90 L 12/27/23 11:00 Temperature Heart Rate Heart Rate [ 76 Monitoring electrodes] Respiratory 20 Rate Blood Pressure 117/65 [Right Radial artery] O2 Saturation 90 L Oxygen O2 Source [With Activity] Room air O2 Source Mechanical ventilator I&O (Last 24 Hrs): Intake and Output Totals x24h 12/25/23 12/26/23 12/27/23 23:59 23:59 23:59 Intake Total 1577.818 545.530 276.55 Output Total 0488 1568 1238 Balance -940.182 -1022.470 -961.45 General: Alert, No acute distress HEENT: Other (Endotracheal tube in good position.Trachea midline) Neck: Supple, No JVD Neuro: Alert, Non Focal Cardiovascular: Other (Positive S1-S2 no extra heart sounds.) Respiratory: Other (Improved air exchange in all lung mathews no wheezing no crackles.) Abdomen: Other (Positive bowel sounds soft nontender nondistended) Extremities: No cyanosis Skin: No rashes - Results Results: Laboratory Results WBC 17.9 x10^3/uL (4.8-10.8) H 12/27/23 04:20 RBC 4.43 10^6/uL (4.20-5.40) 12/27/23 04:20 Hgb 11.6 g/dL (12.0-16.0) L 12/27/23 04:20 Hct 38.0 % (37.0-47.0) 12/27/23 04:20 MCV 85.8 fL (81.0-99.0) 12/27/23 04:20 MCH 26.2 pg (27.0-31.0) L 12/27/23 04:20 MCHC 30.5 g/dL (32.0-36.0) L 12/27/23 04:20 RDW 17.6 % (12.0-15.0) H 12/27/23 04:20 Plt Count 331 10^3/uL (130-450) 12/27/23 04:20 MPV 9.9 fL (7.9-10.8) 12/27/23 04:20 Neut # (Auto) 16.7 10^3/uL (1.5-6.6) H 12/27/23 04:20 Lymph # (Auto) 0.6 10^3/uL (1.5-3.5) L 12/27/23 04:20 [place] # (Auto) 0.5 10^3/uL (0.0-1.0) 12/27/23 04:20 Eos # (Auto) 0.0 10^3/uL (0.0-0.7) 12/27/23 04:20 Baso # (Auto) 0.0 10^3/uL (0.0-0.1) 12/27/23 04:20 Absolute Nucleated RBC 0.00 x10^3/uL 12/27/23 04:20 Total Counted 100 12/25/23 11:40 Band Neuts % (Manual) 0 % (0-10) 12/25/23 11:40 Abnorm Lymph % (Manual) 0 % 12/25/23 11:40 Nucleated RBC % 0.0 /100WBC 12/27/23 04:20 Neutrophils # (Manual) 9.2 10^3/uL (1.5-6.6) H 12/25/23 11:40 Lymphocytes # (Manual) 4.1 10^3/uL (1.5-3.5) H 12/25/23 11:40 Monocytes # (Manual) 1.4 10^3/uL (0.0-1.0) H 12/25/23 11:40 Eosinophils # (Manual) 0.3 10^3/uL (0-0.7) 12/25/23 11:40 Basophils # (Manual) 0.2 10^3/uL (0-0.1) H 12/25/23 11:40 Differential Comment MANUAL DIFFERENTIAL 12/25/23 11:40 Manual Slide Review Indicated 12/25/23 11:40 WBC Morphology 2+ REACTIVE LYMPHS (NORMAL) 12/25/23 11:40 Platelet Estimate NORMAL (130-450,000) (NORMAL) 12/25/23 11:40 Platelet Morphology NORMAL APPEARANCE (NORMAL) 12/25/23 11:40 RBC Morph Micro Appear 1+ ANISOCYTOSIS (NORMAL) 12/25/23 11:40 Bld Gas Analysis Time 0531 12/26/23 05:25 Sample Site RIGHT RADIAL 12/26/23 05:25 ABG pH 7.44 (7.35-7.45) 12/26/23 05:25 ABG pCO2 44 mmHg (34-45) 12/26/23 05:25 ABG pO2 70 mmHg (80-100) L 12/26/23 05:25 ABG HCO3 28.7 mmol/L (22.0-26.0) H 12/26/23 05:25 ABG Total CO2 30.0 MMOL/L (21.0-29.0) H 12/26/23 05:25 ABG O2 Saturation 94 % (94-98) 12/26/23 05:25 ABG Base Excess 3.9 mmol/L (-2.0-3.0) H 12/26/23 05:25 Elio Test POSITIVE 12/26/23 05:25 VBG pH 7.476 (7.31-7.41) H 12/27/23 04:20 Ionized Calcium 1.14 mmol/L (1.15-1.33) L 12/27/23 04:20 Respiration Rate 20 b/min 12/26/23 05:25 O2 Delivery Device VENTILATOR 12/26/23 05:25 Vent Mode SIMV 12/26/23 05:25 FiO2 70.00 12/26/23 05:25 Tidal Volume 360 mL 12/26/23 05:25 PEEP 5 cmH2O 12/25/23 15:12 Pressure Support Vent 12 cmH2O 12/25/23 15:12 Sodium 144 mmol/L (135-145) 12/27/23 04:20 Potassium 4.4 mmol/L (3.5-4.5) 12/27/23 04:20 Chloride 106 mmol/L (101-111) 12/27/23 04:20 Carbon Dioxide 29 mmol/L (21-32) 12/27/23 04:20 Anion Gap 9.0 (6-13) 12/27/23 04:20 BUN 37 mg/dL (6-20) H 12/27/23 04:20 Creatinine 1.4 mg/dL (0.6-1.3) H 12/27/23 04:20 Estimated GFR (MDRD) 38 (>89) L 12/27/23 04:20 Glucose 190 mg/dL (74-104) H 12/27/23 04:20 POC Whole Bld Glucose 160 mg/dL (70 - 100) H 12/27/23 06:00 Calcium 9.4 mg/dL (8.5-10.3) 12/27/23 04:20 Phosphorus 5.1 mg/dL (2.5-5.0) H 12/27/23 04:20 Magnesium 2.2 mg/dL (1.7-2.3) 12/27/23 04:20 Total Bilirubin 0.3 mg/dL (0.2-1.0) 12/27/23 04:20 Direct Bilirubin < 0.10 mg/dL (0.03-0.18) 12/27/23 04:20 AST 9 IU/L (10-42) L 12/27/23 04:20 ALT 11 IU/L (10-60) 12/27/23 04:20 Alkaline Phosphatase 88 IU/L (42-121) 12/27/23 04:20 Troponin I High Sens 85.2 ng/L (2.3-14.8) H* 12/26/23 04:15 B-Natriuretic Peptide 303 pg/mL (5-100) H 12/25/23 16:38 Total Protein 6.1 g/dL (6.4-8.9) L 12/27/23 04:20 Albumin 3.5 g/dL (3.2-5.5) 12/27/23 04:20 Globulin 2.6 g/dL (2.1-4.2) 12/27/23 04:20 Albumin/Globulin Ratio 1.4 (1.0-2.2) 12/25/23 11:40 Triglycerides 111 mg/dL 12/26/23 04:15 Lipase 27 U/L (11-82) 12/25/23 11:40 Nasal Adenovirus (PCR) NOT DETECTED 12/25/23 12:05 Nasal B. parapertussis DNA (PCR) NOT DETECTED 12/25/23 12:05 Nasal Coronavir 229E PCR NOT DETECTED 12/25/23 12:05 Nasal Coronavir HKU1 PCR NOT DETECTED 12/25/23 12:05 Nasal Coronavir NL63 PCR NOT DETECTED 12/25/23 12:05 Nasal Coronavir OC43 PCR NOT DETECTED 12/25/23 12:05 Nasal Enterovir/Rhinovir PCR NOT DETECTED 12/25/23 12:05 Nasal Influenza B PCR NOT DETECTED 12/25/23 12:05 Nasal Influenza A PCR NOT DETECTED 12/25/23 12:05 Nasal Parainfluen 1 PCR NOT DETECTED 12/25/23 12:05 Nasal Parainfluen 2 PCR NOT DETECTED 12/25/23 12:05 Nasal Parainfluen 3 PCR NOT DETECTED 12/25/23 12:05 Nasal Parainfluen 4 PCR NOT DETECTED 12/25/23 12:05 Nasal RSV (PCR) NOT DETECTED 12/25/23 12:05 Nasal Screen MRSA (PCR) NEGATIVE (NEGATIVE) 12/25/23 17:35 Nasal B.pertussis DNA PCR NOT DETECTED 12/25/23 12:05 Nasal C.pneumoniae (PCR) NOT DETECTED 12/25/23 12:05 Azar Human Metapneumo PCR NOT DETECTED 12/25/23 12:05 Nasal M.pneumoniae (PCR) NOT DETECTED 12/25/23 12:05 Nasal SARS-CoV-2 (PCR) NOT DETECTED 12/25/23 12:05 Urine Opiates Screen NEGATIVE (NEGATIVE) 12/25/23 20:10 Ur Buprenorphine Scrn NEGATIVE (NEGATIVE) 12/25/23 20:10 Ur Oxycodone Screen NEGATIVE (NEGATIVE) 12/25/23 20:10 Urine Methadone Screen NEGATIVE (NEGATIVE) 12/25/23 20:10 Ur Barbiturates Screen NEGATIVE (NEGATIVE) 12/25/23 20:10 Ur Tricyclics Screen NEGATIVE (NEGATIVE) 12/25/23 20:10 Ur Phencyclidine Scrn NEGATIVE (NEGATIVE) 12/25/23 20:10 Ur Amphetamine Screen NEGATIVE (NEGATIVE) 12/25/23 20:10 U Methamphetamines Scrn NEGATIVE (NEGATIVE) 12/25/23 20:10 U Benzodiazepines Scrn NEGATIVE (NEGATIVE) 12/25/23 20:10 Urine Cocaine Screen NEGATIVE (NEGATIVE) 12/25/23 20:10 U Cannabinoids Screen NEGATIVE (NEGATIVE) 12/25/23 20:10 Ur Drug Screen Comment CUTOFF CONC BELOW: 12/25/23 20:10 - Procedures Procedures: Procedures (02/05/21) ESOPHAGOGASTRODUODENOSCOPY [EGD] W/CLOSED BIOPSY (11/29/13) INSERTION OF INFUSION DEV INTO SUP VENA CAVA, PERC APPROACH (12/28/17) MANUAL RUPT JOINT ADHES (04/27/14) TOTAL KNEE REPLACEMENT (06/16/14) Sepsis Event Note (H) - Evaluation Current Stage of Sepsis: Ruled out
[2023-12-27 11:45] LABS: HCT - HEMATOCRIT 39.6 % (37.0-47.0); HGB - HEMOGLOBIN 11.8 g/dL (12.0-16.0); MEAN CORPUSCULAR HEMOGLOBIN 25.7 pg (27.0-31.0); MEAN CORPUSCULAR HGB CONC 29.8 g/dL (32.0-36.0); MEAN CORPUSCULAR VOLUME 86.1 fL (81.0-99.0); MEAN PLATELET VOLUME 9.6 fL (7.9-10.8); RED BLOOD COUNT 4.6 10^6/uL (4.20-5.40); RED CELL DISTRIBUTION WIDTH 17.4 % (12.0-15.0); WHITE BLOOD COUNT 20.8 x10^3/uL (4.8-10.8)
[2023-12-27 11:54] LABS: ESTIMATED AVERAGE GLUCOSE 143 mg/dL (70-100); HEMOGLOBIN A1c% 6.6 % (4.27-6.07)
[2023-12-27] MEDS: metroNIDAZOLE 500 MG/100 ML 500 MG/100 ML BAG IV SCH (12:44)
[2023-12-27] MEDS: HEPARIN 25000UNITS/500ML (D5W) 25,000 UNIT/500 ML BAG IV SCH (13:06)
[2023-12-27] MEDS: cefTRIAXone 2 GM in SODIUM CHLORIDE 0.9% MINIBAG 100 ML IV SCH (14:02)
[2023-12-27] MEDS: IPRATROPIUM/ALBUTEROL 3 ML NEB INH SCH (14:50)
[2023-12-27] MEDS: DEXMEDETOMIDINE 400 MCG/100 ML 100 ML IV PRN (17:16)
[2023-12-27] MEDS: INSULIN REGULAR, HUMAN 300 UNIT/3 ML PEN SUBQ SCH (18:17)
[2023-12-27] MEDS: LORazepam 2 MG/ML VIAL IVP PRN (19:50)
[2023-12-27 19:54] LABS: CALCIUM 9.2 mg/dL (8.5-10.3); CREATININE 1.3 mg/dL (0.6-1.3); POTASSIUM 4.1 mmol/L (3.5-4.5)
[2023-12-28 04:55] LABS: BASOPHILS % (AUTO) 0.1 %; EOSINOPHILS % (AUTO) 0.1 %; HCT - HEMATOCRIT 38.8 % (37.0-47.0); HGB - HEMOGLOBIN 11.6 g/dL (12.0-16.0); LYMPHOCYTES # (AUTO) 0.6 10^3/uL (1.5-3.5); LYMPHOCYTES % (AUTO) 3.8 %; MEAN CORPUSCULAR HEMOGLOBIN 25.8 pg (27.0-31.0); MEAN CORPUSCULAR HGB CONC 29.9 g/dL (32.0-36.0); MEAN CORPUSCULAR VOLUME 86.2 fL (81.0-99.0); MEAN PLATELET VOLUME 10.3 fL (7.9-10.8); MONOCYTES # (AUTO) 0.7 10^3/uL (0.0-1.0); MONOCYTES % (AUTO) 4.1 %; NEUTROPHILS # (AUTO) 15.5 10^3/uL (1.5-6.6); NEUTROPHILS % (AUTO) 91.2 %; PLT - PLATELET COUNT 275 10^3/uL (130-450); RED CELL DISTRIBUTION WIDTH 17.5 % (12.0-15.0)
[2023-12-28 05:13] LABS: CALCIUM 9.4 mg/dL (8.5-10.3); CREATININE 1.2 mg/dL (0.6-1.3); POTASSIUM 4.3 mmol/L (3.5-4.5)
[2023-12-28 05:34] LABS: MAGNESIUM 2.3 mg/dL (1.7-2.3); PHOSPHORUS 4.6 mg/dL (2.5-5.0)
[2023-12-28 05:43] LABS: VBG PH 7.412 (7.31-7.41)
[2023-12-28 05:44] LABS: CALCIUM, IONIZED 1.17 mmol/L (1.15-1.33)
[2023-12-28 09:12] LABS: HCT - HEMATOCRIT 38.5 % (37.0-47.0); HGB - HEMOGLOBIN 11.6 g/dL (12.0-16.0); MEAN CORPUSCULAR HEMOGLOBIN 26.2 pg (27.0-31.0); MEAN CORPUSCULAR HGB CONC 30.1 g/dL (32.0-36.0); MEAN CORPUSCULAR VOLUME 86.9 fL (81.0-99.0); MEAN PLATELET VOLUME 9.9 fL (7.9-10.8); RED BLOOD COUNT 4.43 10^6/uL (4.20-5.40); RED CELL DISTRIBUTION WIDTH 17.2 % (12.0-15.0); WHITE BLOOD COUNT 14.8 x10^3/uL (4.8-10.8)
[2023-12-28] MEDS: polyethylene glycoL 3350 17 GM PACKET PO SCH (09:18)
[2023-12-28] MEDS: FUROSEMIDE 40 MG/4 ML VIAL IVP SCH ×2 (09:18→22:44)
--- NOTE | 2023-12-28 12:41 | XRAY Report ---
PROCEDURE: Chest 1V INDICATIONS: Intubated patient with acute respir fail/hypoxemia TECHNIQUE: One view of the chest was acquired. COMPARISON: 12/26/2023. FINDINGS: Surgical changes and devices: Left chest wall pacemaker. Endotracheal tube with tip approximately 2 cm above the lai. Enteric tube with tip and side-port projecting over the expected location of the stomach. Lungs and pleura: No pleural effusions or pneumothorax. Prominent interstitial markings. Mediastinum: Mediastinal contours appear normal. Heart size is enlarged. Bones and chest wall: No suspicious bony lesions. Overlying soft tissues appear unremarkable. IMPRESSION: 1.Lines and tubes as above. Previously described possible central venous catheter is not visualized o n current exam. 2.Redemonstration of cardiomegaly and prominent interstitial markings, likely presenting pulmonary va scular congestion. Reviewed by: Wali Caba MD on 12/28/2023 12:40 PM PDT Approved by: Wali Caba MD on 12/28/2023 12:40 PM PDT Station ID: [id number]
[2023-12-28] MEDS: INSULIN REGULAR, HUMAN 300 UNIT/3 ML PEN SUBQ SCH (18:18)
--- NOTE | 2023-12-28 21:35 | PROVIDER PROGRESS NOTE ---
Assessment/Plan - Problem List (1) Acute respiratory failure with hypoxemia Assessment/Plan: Patient remains critically ill and continues to require artificial life support with mechanical ventilation. Ventilator settings: Assist-control, rate 14, PEEP 14 cmH2O, tidal volume 360, FiO2 45%. Over the last 24 hours, her oxygenation has improved, however, she continues to have a life-threatening condition requiring mechanical ventilation for artificial life support. FiO2 has been decreased to 40%. Plan is to decrease PEEP by 1 cm of water every 4 hours if oxygen saturation is greater than or equal to 92%. Etiology of respiratory failure is most likely related to anaphylaxis and chronic systolic heart failure with an ejection fraction of 30%. Patient remains afebrile but has copious secretions and an elevated white count. Continue ceftriaxone and metronidazole. Continue to wean PEEP as tolerated. Patient is currently not ready for spontaneous breathing trial. Plan is to decrease PEEP to 58 range and then consider spontaneous breathing trial. Patient is critically ill and continues to have a life-threatening condition requiring artificial life support with mechanical ventilation. (2) Anaphylactic reaction to bee sting Conclusion/Plan: Anaphylaxis appears to have resolved. Continue to monitor (3) Acute on chronic systolic heart failure Conclusion/Plan: Restart Lasix at 20 mg intravenously twice daily Transthoracic echocardiogram performed in January 2023 where her LVEF was 30 to 35%. (4) COPD (chronic obstructive pulmonary disease) with hypoxia Conclusion/Plan: Continue DuoNebs and IV corticosteroids.Clinically patient does not appear to be having an exacerbation of her COPD at this time. (5) Hypokalemia Conclusion/Plan: Continue to replace as needed (6) Chronic atrial fibrillation Conclusion/Plan: Stable continue to monitor. Continue IV heparin. (7) Diabetes mellitus type 2 in obese Conclusion/Plan: Initiate sliding scale insulin. (8) Hx of coronary artery disease Conclusion/Plan: Continue aspirin 81 mg. (9) Hypertension Conclusion/Plan: Currently well-controlled. Continue to monitor. (10) Sleep apnea Conclusion/Plan: Will need to monitor for sleep apnea after extubation. Critical care time: Time spent reviewing chart, reviewing laboratory and radiology results, physical exam and writing orders is 34 minutes. Time excludes any procedure time. - Current Meds Current Meds: Current Medications Generic Name Dose Route Start Last Admin Trade Name Freq PRN Reason Stop Dose Admin Albuterol/Ipratropium 3 ml 12/27/23 14:49 12/28/23 19:00 Ipratropium/Albuterol 3 Ml Neb INH 3 ml RTQ6H ROMAN Administration Aspirin 81 mg 12/25/23 17:46 12/28/23 08:02 Aspirin Chew 81 Mg Tablet NG 81 mg DAILY ROMAN Administration Famotidine 20 mg 12/25/23 21:00 12/28/23 20:23 Famotidine 20 Mg/2 Ml Vial IVP 20 mg BID ROMAN Administration Fentanyl 50 mcg 12/25/23 17:06 12/28/23 18:58 Fentanyl 100 Mcg/2 Ml Vial IVP 50 mcg Q2H PRN Administration PER PHYSICIAN ORDER Furosemide 40 mg 12/28/23 09:00 12/28/23 20:23 Furosemide 40 Mg/4 Ml Vial IVP 40 mg BID ROMAN Administration Sodium Chloride 500 mls @ 20 mls/hr 12/25/23 20:26 12/26/23 06:38 Normal Saline 0.9% IV 20 mls/hr Q24H PRN Administration TKO RATE Heparin Sodium/Dextrose 25,000 unit in 500 mls @ 39.24 mls/hr 12/27/23 12:00 12/28/23 18:15 Heparin Sodium/Dextrose IV 16.01 unit/kg/hr .[id number] ROMAN 34.902 mls/hr Administration Protocol 18 UNIT/KG/HR Ceftriaxone Sodium 2 gm/ 100 mls @ 200 mls/hr 12/27/23 13:00 12/28/23 18:22 Sodium Chloride IV Infused DAILY ROMAN Infusion Metronidazole 500 mg in 100 mls @ 100 mls/hr 12/27/23 13:00 12/28/23 20:23 Flagyl 500 Mg/100 Ml IV 100 mls/hr Q8H ROMAN Administration Dexmedetomidine/Sodium Chloride 100 mls @ 5.45 mls/hr 12/27/23 16:40 12/28/23 19:27 Precedex Premix IV 0.6 mcg/kg/hr .[id number] PRN 16.35 mls/hr Agitation Administration Protocol 0.2 MCG/KG/HR Insulin Human Regular 2 - 10 unit 12/28/23 19:00 12/28/23 18:18 Insulin Regular, Human 300 Unit/3 Ml Pen SUBQ 6 unit Q6HR ROMAN Administration Protocol Lorazepam 1 mg 12/27/23 14:37 12/28/23 19:34 Lorazepam 2 Mg/Ml Vial IVP 1 mg Q1H PRN Administration Anxiety Methylprednisolone 40 mg 12/25/23 20:00 12/28/23 20:23 Methylprednisolone Succinate 40 Mg/Ml Vial IVP 40 mg BID ROMAN Administration Polyethylene Glycol 17 gm 12/28/23 09:00 12/28/23 09:18 Polyethylene Glycol 3350 17 Gm Packet PO 17 gm DAILY ROMAN Administration Sodium Chloride 10 ml 12/25/23 17:00 12/28/23 19:34 Sodium Chloride Flush 0.9% 10 Ml Syringe IVP 10 ml 0100,0900,1700 ROMAN Administration Sodium Chloride 10 ml 12/25/23 16:54 12/27/23 19:51 Sodium Chloride Flush 0.9% 10 Ml Syringe IVP 10 ml PRN PRN Administration NEEDED PER PROVIDER ORDERS - Lab Result Fish Bone Diagrams: 12/28/23 09:00 12/28/23 04:20 - Additional Planning My Orders: My Active Orders 12/28/23 08:37 CPT - Chest Physical Therapy [RC] TID 12/28/23 09:00 FUROSEMIDE INJ 40mg VIAL [LASIX INJ 40 mg VIAL] 40 mg IVP BID polyethylene glycoL 3350 [Miralax] 17 gm PO DAILY 12/28/23 10:31 IO [RC] QSHIFT Tube Feeding [RC] Q2HR 12/28/23 14:00 Ventilator Setting Changes [RC] .ONCE 12/28/23 16:59 Ventilator Setting Changes [RC] .ONCE 12/28/23 18:07 NonViolent Restraint(s) Q24H 12/28/23 18:13 Initiate Hypoglycemia Protocol [RC] .protocol 12/28/23 19:00 Insulin Regular, Human [NovoLIN R FlexPen] 2 - 10 unit SUBQ Q6HR 12/29/23 05:00 COMPREHENSIVE METABOLIC PANEL [CHEM] Timed MAGNESIUM [CHEM] Timed PHOSPHORUS [CHEM] Timed 12/29/23 09:00 PTT [PARTIAL THROMBOPLASTIN TIME] [COAG] Timed 12/31/23 05:00 COMPREHENSIVE METABOLIC PANEL [CHEM] Timed MAGNESIUM [CHEM] Timed PHOSPHORUS [CHEM] Timed 01/02/24 05:00 PHOSPHORUS [CHEM] Timed PREALBUMIN [CHEM] Timed 01/03/24 05:00 COMPREHENSIVE METABOLIC PANEL [CHEM] Timed MAGNESIUM [CHEM] Timed Subjective - Subjective Patient Reports: Other (Intubated and sedated. Following commands.) Objective Vital Signs: Vital Signs - 24 hr 12/27/23 12/27/23 12/28/23 22:00 23:00 00:00 Temperature 36.7 C Heart Rate Heart Rate [ 78 74 80 Monitoring electrodes] Respiratory 22 23 22 Rate Blood Pressure 134/71 H 142/68 H 152/73 H [Right Radial artery] O2 Saturation 92 91 L 91 L 12/28/23 12/28/23 12/28/23 01:00 01:15 02:00 Temperature Heart Rate 74 Heart Rate [ 76 72 Monitoring electrodes] Respiratory 23 23 Rate Blood Pressure 127/67 114/54 L [Right Radial artery] O2 Saturation 94 95 12/28/23 12/28/23 12/28/23 03:00 04:00 04:05 Temperature 36.7 C Heart Rate 67 Heart Rate [ 77 93 Monitoring electrodes] Respiratory 23 22 Rate Blood Pressure 125/61 135/63 H [Right Radial artery] O2 Saturation 95 93 12/28/23 12/28/23 12/28/23 05:00 06:00 06:55 Temperature Heart Rate 76 74 Heart Rate [ 75 66 Monitoring electrodes] Respiratory 23 22 26 H Rate Blood Pressure 127/63 124/89 H [Right Radial artery] O2 Saturation 92 92 12/28/23 12/28/23 12/28/23 07:00 08:00 08:54 Temperature 36.7 C Heart Rate 74 Heart Rate [ 78 77 Monitoring electrodes] Respiratory 23 23 Rate Blood Pressure 130/55 L 118/53 L [Right Radial artery] O2 Saturation 97 89 L 12/28/23 12/28/23 12/28/23 09:00 10:00 11:00 Temperature Heart Rate Heart Rate [ 78 79 64 Monitoring electrodes] Respiratory 21 21 22 Rate Blood Pressure 125/54 L 132/63 H 126/57 L [Right Radial artery] O2 Saturation 91 L 89 L 89 L 12/28/23 12/28/23 12/28/23 11:30 12:00 13:00 Temperature 36.8 C Heart Rate 61 Heart Rate [ 69 86 Monitoring electrodes] Respiratory 21 23 Rate Blood Pressure 148/68 H 154/60 H [Right Radial artery] O2 Saturation 92 92 12/28/23 12/28/23 12/28/23 14:00 15:00 15:08 Temperature Heart Rate 77 Heart Rate [ 67 74 Monitoring electrodes] Respiratory 23 18 Rate Blood Pressure 159/67 H 141/57 H [Right Radial artery] O2 Saturation 91 L 92 12/28/23 12/28/23 12/28/23 16:00 17:00 18:00 Temperature 36.6 C Heart Rate Heart Rate [ 71 72 62 Monitoring electrodes] Respiratory 21 19 21 Rate Blood Pressure 145/65 H 131/103 H 125/93 H [Right Radial artery] O2 Saturation 91 L 93 100 12/28/23 12/28/23 12/28/23 19:00 20:00 21:00 Temperature 36.7 C Heart Rate 71 Heart Rate [ 69 7 L 83 Monitoring electrodes] Respiratory 20 23 22 Rate Blood Pressure 148/68 H 132/68 H 129/47 L [Right Radial artery] O2 Saturation 91 L 94 96 Oxygen O2 Source [With Activity] Room air O2 Source Mechanical ventilator I&O (Last 24 Hrs): Intake and Output Totals x24h 12/26/23 12/27/23 12/28/23 23:59 23:59 23:59 Intake Total 803.170 5754.174 3115.809 Output Total 1568 1935 2259 Balance -1022.470 -217.826 856.809 General: Alert, No acute distress HEENT: PERRLA Neck: No JVD, Other (Trachea midline) Neuro: Alert Cardiovascular: Other (Positive S1-S2 no extra heart sounds.) Respiratory: Other (Good air exchange in all lung mathews no wheezing no c rackles) Abdomen: Other (Soft nontender nondistended positive bowel sounds) Extremities: No clubbing, No cyanosis, No edema Skin: No rashes - Results Results: Laboratory Results WBC 14.8 x10^3/uL (4.8-10.8) H 12/28/23 09:00 RBC 4.43 10^6/uL (4.20-5.40) 12/28/23 09:00 Hgb 11.6 g/dL (12.0-16.0) L 12/28/23 09:00 Hct 38.5 % (37.0-47.0) 12/28/23 09:00 MCV 86.9 fL (81.0-99.0) 12/28/23 09:00 MCH 26.2 pg (27.0-31.0) L 12/28/23 09:00 MCHC 30.1 g/dL (32.0-36.0) L 12/28/23 09:00 RDW 17.2 % (12.0-15.0) H 12/28/23 09:00 Plt Count 249 10^3/uL (130-450) 12/28/23 09:00 MPV 9.9 fL (7.9-10.8) 12/28/23 09:00 Neut # (Auto) 15.5 10^3/uL (1.5-6.6) H 12/28/23 04:20 Lymph # (Auto) 0.6 10^3/uL (1.5-3.5) L 12/28/23 04:20 [place] # (Auto) 0.7 10^3/uL (0.0-1.0) 12/28/23 04:20 Eos # (Auto) 0.0 10^3/uL (0.0-0.7) 12/28/23 04:20 Baso # (Auto) 0.0 10^3/uL (0.0-0.1) 12/28/23 04:20 Absolute Nucleated RBC 0.00 x10^3/uL 12/28/23 04:20 Total Counted 100 12/25/23 11:40 Band Neuts % (Manual) 0 % (0-10) 12/25/23 11:40 Abnorm Lymph % (Manual) 0 % 12/25/23 11:40 Nucleated RBC % 0.0 /100WBC 12/28/23 04:20 Neutrophils # (Manual) 9.2 10^3/uL (1.5-6.6) H 12/25/23 11:40 Lymphocytes # (Manual) 4.1 10^3/uL (1.5-3.5) H 12/25/23 11:40 Monocytes # (Manual) 1.4 10^3/uL (0.0-1.0) H 12/25/23 11:40 Eosinophils # (Manual) 0.3 10^3/uL (0-0.7) 12/25/23 11:40 Basophils # (Manual) 0.2 10^3/uL (0-0.1) H 12/25/23 11:40 Differential Comment MANUAL DIFFERENTIAL 12/25/23 11:40 Manual Slide Review Indicated 12/25/23 11:40 WBC Morphology 2+ REACTIVE LYMPHS (NORMAL) 12/25/23 11:40 Platelet Estimate NORMAL (130-450,000) (NORMAL) 12/25/23 11:40 Platelet Morphology NORMAL APPEARANCE (NORMAL) 12/25/23 11:40 RBC Morph Micro Appear 1+ ANISOCYTOSIS (NORMAL) 12/25/23 11:40 APTT 88.4 secs (24.9-33.3) H 12/28/23 09:00 Bld Gas Analysis Time 0531 12/26/23 05:25 Sample Site RIGHT RADIAL 12/26/23 05:25 ABG pH 7.44 (7.35-7.45) 12/26/23 05:25 ABG pCO2 44 mmHg (34-45) 12/26/23 05:25 ABG pO2 70 mmHg (80-100) L 12/26/23 05:25 ABG HCO3 28.7 mmol/L (22.0-26.0) H 12/26/23 05:25 ABG Total CO2 30.0 MMOL/L (21.0-29.0) H 12/26/23 05:25 ABG O2 Saturation 94 % (94-98) 12/26/23 05:25 ABG Base Excess 3.9 mmol/L (-2.0-3.0) H 12/26/23 05:25 Elio Test POSITIVE 12/26/23 05:25 VBG pH 7.412 (7.31-7.41) H 12/28/23 04:20 Ionized Calcium 1.17 mmol/L (1.15-1.33) 12/28/23 04:20 Respiration Rate 20 b/min 12/26/23 05:25 O2 Delivery Device VENTILATOR 12/26/23 05:25 Vent Mode SIMV 12/26/23 05:25 FiO2 70.00 12/26/23 05:25 Tidal Volume 360 mL 12/26/23 05:25 PEEP 5 cmH2O 12/25/23 15:12 Pressure Support Vent 12 cmH2O 12/25/23 15:12 Sodium 142 mmol/L (135-145) 12/28/23 04:20 Potassium 4.3 mmol/L (3.5-4.5) 12/28/23 04:20 Chloride 105 mmol/L (101-111) 12/28/23 04:20 Carbon Dioxide 28 mmol/L (21-32) 12/28/23 04:20 Anion Gap 9.0 (6-13) 12/28/23 04:20 BUN 42 mg/dL (6-20) H 12/28/23 04:20 Creatinine 1.2 mg/dL (0.6-1.3) 12/28/23 04:20 Estimated GFR (MDRD) 46 (>89) L 12/28/23 04:20 Glucose 250 mg/dL (74-104) H 12/28/23 04:20 POC Whole Bld Glucose 236 mg/dL (70 - 100) H 12/28/23 17:57 Estimat Average Glucose 143 mg/dL (70-100) H 12/27/23 04:20 Hemoglobin A1c % 6.6 % (4.27-6.07) H 12/27/23 04:20 Calcium 9.4 mg/dL (8.5-10.3) 12/28/23 04:20 Phosphorus 4.6 mg/dL (2.5-5.0) 12/28/23 04:20 Magnesium 2.3 mg/dL (1.7-2.3) 12/28/23 04:20 Total Bilirubin 0.3 mg/dL (0.2-1.0) 12/27/23 04:20 Direct Bilirubin < 0.10 mg/dL (0.03-0.18) 12/27/23 04:20 AST 9 IU/L (10-42) L 12/27/23 04:20 ALT 11 IU/L (10-60) 12/27/23 04:20 Alkaline Phosphatase 88 IU/L (42-121) 12/27/23 04:20 Troponin I High Sens 85.2 ng/L (2.3-14.8) H* 12/26/23 04:15 B-Natriuretic Peptide 303 pg/mL (5-100) H 12/25/23 16:38 Total Protein 6.1 g/dL (6.4-8.9) L 12/27/23 04:20 Albumin 3.5 g/dL (3.2-5.5) 12/27/23 04:20 Globulin 2.6 g/dL (2.1-4.2) 12/27/23 04:20 Albumin/Globulin Ratio 1.4 (1.0-2.2) 12/25/23 11:40 Prealbumin 29 mg/dL (17-34) 12/28/23 04:20 Triglycerides 111 mg/dL 12/26/23 04:15 Lipase 27 U/L (11-82) 12/25/23 11:40 Nasal Adenovirus (PCR) NOT DETECTED 12/25/23 12:05 Nasal B. parapertussis DNA (PCR) NOT DETECTED 12/25/23 12:05 Nasal Coronavir 229E PCR NOT DETECTED 12/25/23 12:05 Nasal Coronavir HKU1 PCR NOT DETECTED 12/25/23 12:05 Nasal Coronavir NL63 PCR NOT DETECTED 12/25/23 12:05 Nasal Coronavir OC43 PCR NOT DETECTED 12/25/23 12:05 Nasal Enterovir/Rhinovir PCR NOT DETECTED 12/25/23 12:05 Nasal Influenza B PCR NOT DETECTED 12/25/23 12:05 Nasal Influenza A PCR NOT DETECTED 12/25/23 12:05 Nasal Parainfluen 1 PCR NOT DETECTED 12/25/23 12:05 Nasal Parainfluen 2 PCR NOT DETECTED 12/25/23 12:05 Nasal Parainfluen 3 PCR NOT DETECTED 12/25/23 12:05 Nasal Parainfluen 4 PCR NOT DETECTED 12/25/23 12:05 Nasal RSV (PCR) NOT DETECTED 12/25/23 12:05 Nasal Screen MRSA (PCR) NEGATIVE (NEGATIVE) 12/25/23 17:35 Nasal B.pertussis DNA PCR NOT DETECTED 12/25/23 12:05 Nasal C.pneumoniae (PCR) NOT DETECTED 12/25/23 12:05 Azar Human Metapneumo PCR NOT DETECTED 12/25/23 12:05 Nasal M.pneumoniae (PCR) NOT DETECTED 12/25/23 12:05 Nasal SARS-CoV-2 (PCR) NOT DETECTED 12/25/23 12:05 Urine Opiates Screen NEGATIVE (NEGATIVE) 12/25/23 20:10 Ur Buprenorphine Scrn NEGATIVE (NEGATIVE) 12/25/23 20:10 Ur Oxycodone Screen NEGATIVE (NEGATIVE) 12/25/23 20:10 Urine Methadone Screen NEGATIVE (NEGATIVE) 12/25/23 20:10 Ur Barbiturates Screen NEGATIVE (NEGATIVE) 12/25/23 20:10 Ur Tricyclics Screen NEGATIVE (NEGATIVE) 12/25/23 20:10 Ur Phencyclidine Scrn NEGATIVE (NEGATIVE) 12/25/23 20:10 Ur Amphetamine Screen NEGATIVE (NEGATIVE) 12/25/23 20:10 U Methamphetamines Scrn NEGATIVE (NEGATIVE) 12/25/23 20:10 U Benzodiazepines Scrn NEGATIVE (NEGATIVE) 12/25/23 20:10 Urine Cocaine Screen NEGATIVE (NEGATIVE) 12/25/23 20:10 U Cannabinoids Screen NEGATIVE (NEGATIVE) 12/25/23 20:10 Ur Drug Screen Comment CUTOFF CONC BELOW: 12/25/23 20:10 - Procedures Procedures: Procedures (02/05/21) ESOPHAGOGASTRODUODENOSCOPY [EGD] W/CLOSED BIOPSY (11/29/13) INSERTION OF INFUSION DEV INTO SUP VENA CAVA, PERC APPROACH (12/28/17) MANUAL RUPT JOINT ADHES (04/27/14) TOTAL KNEE REPLACEMENT (06/16/14) Sepsis Event Note (H) - Evaluation Current Stage of Sepsis: Ruled out
[2023-12-28] MEDS: INSULIN GLARGINE-YFGN 300 UNIT/3 ML PEN SUBQ SCH (22:45)
[2023-12-29 04:58] LABS: MAGNESIUM 2.4 mg/dL (1.7-2.3)
[2023-12-29 05:04] LABS: CALCIUM 9.8 mg/dL (8.5-10.3); CREATININE 1.1 mg/dL (0.6-1.3); PHOSPHORUS 3.8 mg/dL (2.5-5.0); POTASSIUM 4.7 mmol/L (3.5-4.5)
[2023-12-29] MEDS ORDERED: DEXMEDETOMIDINE 400 MCG/100 ML 100 ML IV PRN (10:22)
[2023-12-29] MEDS: DEXMEDETOMIDINE 400 MCG in SODIUM CHLORIDE 0.9% 100ML 96 ML IV PRN (12:36)
[2023-12-29] MEDS ORDERED: INSULIN GLARGINE-YFGN 300 UNIT/3 ML PEN SUBQ SCH (21:00)
--- NOTE | 2023-12-29 22:05 | PROVIDER PROGRESS NOTE ---
Assessment/Plan - Problem List (1) Acute respiratory failure with hypoxemia Assessment/Plan: Patient remains critically ill and continues to require artificial life support with mechanical ventilation. Ventilator settings: Assist-control, rate 14, PEEP 14 cmH2O, tidal volume 360, FiO2 45%. Over the last 24 hours, her oxygenation has improved. FiO2 has been decreased to 40%. Throughout the day, PEEP was decreased from 11 cm of water to 8 cm water. Patient underwent a spontaneous breathing trial and did well and was subsequently extubated this evening at 5 PM. (2) Anaphylactic reaction to bee sting Conclusion/Plan: Anaphylaxis appears to have resolved. Continue to monitor (3) Acute on chronic systolic heart failure Conclusion/Plan: Continue Lasix 20 mg twice daily. Transthoracic echocardiogram performed in January 2023 where her LVEF was 30 to 35%. (4) COPD (chronic obstructive pulmonary disease) with hypoxia Conclusion/Plan: Continue DuoNebs and IV corticosteroids.Clinically patient does not appear to be having an exacerbation of her COPD at this time. (5) Hypokalemia Conclusion/Plan: Continue to replace as needed (6) Chronic atrial fibrillation Conclusion/Plan: Stable continue to monitor. Continue anticoagulation with IV heparin. (7) Diabetes mellitus type 2 in obese Conclusion/Plan: Continue sliding scale insulin. (8) Hx of coronary artery disease Conclusion/Plan: Continue aspirin 81 mg. (9) Hypertension Conclusion/Plan: Currently well-controlled. Continue to monitor. (10) Sleep apnea Conclusion/Plan: Patient cannot tolerate CPAP. Continue to monitor. - Current Meds Current Meds: Current Medications Generic Name Dose Route Start Last Admin Trade Name Freq PRN Reason Stop Dose Admin Albuterol/Ipratropium 3 ml 12/27/23 14:49 12/29/23 13:35 Ipratropium/Albuterol 3 Ml Neb INH 3 ml RTQ6H ROMAN Administration Aspirin 81 mg 12/25/23 17:46 12/29/23 08:24 Aspirin Chew 81 Mg Tablet NG 81 mg DAILY ROMAN Administration Famotidine 20 mg 12/25/23 21:00 12/29/23 21:18 Famotidine 20 Mg/2 Ml Vial IVP 20 mg BID ROMAN Administration Fentanyl 50 mcg 12/25/23 17:06 12/29/23 19:34 Fentanyl 100 Mcg/2 Ml Vial IVP 50 mcg Q2H PRN Administration PER PHYSICIAN ORDER Furosemide 20 mg 12/28/23 22:00 12/29/23 21:17 Furosemide 40 Mg/4 Ml Vial IVP 20 mg BID ROMAN Administration Sodium Chloride 500 mls @ 20 mls/hr 12/25/23 20:26 12/26/23 06:38 Normal Saline 0.9% IV 20 mls/hr Q24H PRN Administration TKO RATE Heparin Sodium/Dextrose 25,000 unit in 500 mls @ 39.24 mls/hr 12/27/23 12:00 12/29/23 11:08 Heparin Sodium/Dextrose IV 16.01 unit/kg/hr .[id number] ROMAN 34.902 mls/hr Titration Protocol 18 UNIT/KG/HR Ceftriaxone Sodium 2 gm/ 100 mls @ 200 mls/hr 12/27/23 13:00 12/29/23 08:53 Sodium Chloride IV Infused DAILY ROMAN Infusion Metronidazole 500 mg in 100 mls @ 100 mls/hr 12/27/23 13:00 12/29/23 21:16 Flagyl 500 Mg/100 Ml IV 100 mls/hr Q8H ROMAN Administration Insulin Glargine-yfgn 10 unit 12/28/23 21:59 12/29/23 21:18 Insulin Glargine-Yfgn 300 Unit/3 Ml Pen SUBQ 10 unit QPM ROMAN Administration Insulin Human Regular 2 - 10 unit 12/28/23 19:00 12/29/23 18:29 Insulin Regular, Human 300 Unit/3 Ml Pen SUBQ 4 unit Q6HR ROMAN Administration Protocol Lorazepam 1 mg 12/27/23 14:37 12/29/23 21:18 Lorazepam 2 Mg/Ml Vial IVP 1 mg Q1H PRN Administration Anxiety Polyethylene Glycol 17 gm 12/28/23 09:00 12/29/23 08:24 Polyethylene Glycol 3350 17 Gm Packet PO 17 gm DAILY ROMAN Administration Sodium Chloride 10 ml 12/25/23 17:00 12/29/23 21:19 Sodium Chloride Flush 0.9% 10 Ml Syringe IVP 10 ml 0100,0900,1700 ROMAN Administration Sodium Chloride 10 ml 12/25/23 16:54 12/29/23 21:19 Sodium Chloride Flush 0.9% 10 Ml Syringe IVP 10 ml PRN PRN Administration NEEDED PER PROVIDER ORDERS - Lab Result Fish Bone Diagrams: 12/28/23 09:00 12/29/23 04:41 - Additional Planning My Orders: My Active Orders 12/28/23 21:59 Insulin Glargine-Yfgn [Semglee] 10 unit SUBQ QPM 12/28/23 22:00 FUROSEMIDE INJ 40mg VIAL [LASIX INJ 40 mg VIAL] 20 mg IVP BID 12/30/23 05:00 BMP - BASIC METABOLIC PANEL [CHEM] Routine CBC W/O DIFF (HEMOGRAM) [HEME] Routine 12/30/23 06:00 Chest 1V [XR] Routine 12/30/23 09:00 methylPREDNISolone SUCCINATE [SOLU-Medrol (40MG VIAL)] 40 mg IVP DAILY 12/31/23 05:00 COMPREHENSIVE METABOLIC PANEL [CHEM] Timed MAGNESIUM [CHEM] Timed PHOSPHORUS [CHEM] Timed 01/02/24 05:00 PHOSPHORUS [CHEM] Timed PREALBUMIN [CHEM] Timed 01/03/24 05:00 COMPREHENSIVE METABOLIC PANEL [CHEM] Timed MAGNESIUM [CHEM] Timed Subjective - Subjective Patient Reports: Other (Alert. Following commands. Denies chest pain and abdominal pain. Reports her breathing is at baseline.) Objective Vital Signs: Vital Signs - 24 hr 12/28/23 12/28/23 12/29/23 22:30 23:00 00:00 Temperature 36.1 C L Heart Rate 69 Heart Rate [ 78 80 Monitoring electrodes] Respiratory 22 18 Rate Blood Pressure 151/73 H 113/59 L [Right Radial artery] O2 Saturation 94 92 If not protocol : Oxygen Flow, liters/minute 12/29/23 12/29/23 12/29/23 01:00 01:15 02:00 Temperature Heart Rate 77 Heart Rate [ 71 75 Monitoring electrodes] Respiratory 19 22 23 Rate Blood Pressure 108/47 L 139/67 H [Right Radial artery] O2 Saturation 92 92 If not protocol : Oxygen Flow, liters/minute 12/29/23 12/29/23 12/29/23 03:00 04:00 04:05 Temperature Heart Rate 61 Heart Rate [ 71 74 Monitoring electrodes] Respiratory 23 24 Rate Blood Pressure 139/46 H 117/54 L [Right Radial artery] O2 Saturation 93 90 L If not protocol : Oxygen Flow, liters/minute 12/29/23 12/29/23 12/29/23 05:00 06:00 06:59 Temperature 37.5 C Heart Rate 67 Heart Rate [ 60 68 68 Monitoring electrodes] Respiratory 20 18 21 Rate Blood Pressure 109/90 H 143/56 H 125/45 L [Right Radial artery] O2 Saturation 88 L 92 91 L If not protocol : Oxygen Flow, liters/minute 12/29/23 12/29/23 12/29/23 07:19 08:00 09:00 Temperature 37.1 C Heart Rate 66 Heart Rate [ 73 70 Monitoring electrodes] Respiratory 24 23 Rate Blood Pressure 141/72 H 133/71 H [Right Radial artery] O2 Saturation 89 L 87 L If not protocol : Oxygen Flow, liters/minute 12/29/23 12/29/23 12/29/23 10:00 10:21 11:00 Temperature 36.6 C Heart Rate 72 Heart Rate [ 64 65 Monitoring electrodes] Respiratory 18 23 Rate Blood Pressure 122/100 H 145/71 H [Right Radial artery] O2 Saturation 88 L 88 L If not protocol : Oxygen Flow, liters/minute 12/29/23 12/29/23 12/29/23 12:00 13:00 13:35 Temperature Heart Rate 60 Heart Rate [ 66 60 Monitoring electrodes] Respiratory 22 15 Rate Blood Pressure 126/68 140/71 H [Right Radial artery] O2 Saturation 93 99 If not protocol : Oxygen Flow, liters/minute 12/29/23 12/29/23 12/29/23 13:45 14:00 15:00 Temperature Heart Rate 60 Heart Rate [ 60 72 Monitoring electrodes] Respiratory 16 23 14 Rate Blood Pressure 112/53 L 147/123 H [Right Radial artery] O2 Saturation 91 L 96 If not protocol : Oxygen Flow, liters/minute 12/29/23 12/29/23 12/29/23 16:00 16:06 17:00 Temperature 36.8 C Heart Rate 61 Heart Rate [ 61 60 Monitoring electrodes] Respiratory 18 18 Rate Blood Pressure 146/79 H 153/84 H [Right Radial artery] O2 Saturation 95 90 L If not protocol 3 : Oxygen Flow, liters/minute 12/29/23 12/29/23 12/29/23 18:00 19:00 20:00 Temperature Heart Rate Heart Rate [ 60 60 66 Monitoring electrodes] Respiratory 20 27 H 21 Rate Blood Pressure 136/69 H 128/95 H 132/67 H [Right Radial artery] O2 Saturation 88 L 88 L 91 L If not protocol 3 3 : Oxygen Flow, liters/minute 12/29/23 12/29/23 21:00 22:00 Temperature 36.4 C L Heart Rate Heart Rate [ 68 60 Monitoring electrodes] Respiratory 20 16 Rate Blood Pressure 88/72 L 113/87 H [Right Radial artery] O2 Saturation 90 L 91 L If not protocol 3 3 : Oxygen Flow, liters/minute Oxygen O2 Source [With Activity] Room air O2 Source Simple Mask I&O (Last 24 Hrs): Intake and Output Totals x24h 12/27/23 12/28/23 12/29/23 23:59 23:59 23:59 Intake Total 2575.555 0960.809 1384.713 Output Total 1935 4229 4170 Balance -217.826 -812.191 -2785.287 General: Alert, No acute distress HEENT: Atraumatic Neck: No JVD Neuro: Non Focal Cardiovascular: Other (Positive S1-S2 no extra heart sounds) Respiratory: Other (Good air exchange in all lung mathews no wheezing or crackles) Abdomen: Other (Soft nontender nondistended positive bowel sound) Extremities: No cyanosis, No edema Skin: No rashes - Results Results: Laboratory Results WBC 14.8 x10^3/uL (4.8-10.8) H 12/28/23 09:00 RBC 4.43 10^6/uL (4.20-5.40) 12/28/23 09:00 Hgb 11.6 g/dL (12.0-16.0) L 12/28/23 09:00 Hct 38.5 % (37.0-47.0) 12/28/23 09:00 MCV 86.9 fL (81.0-99.0) 12/28/23 09:00 MCH 26.2 pg (27.0-31.0) L 12/28/23 09:00 MCHC 30.1 g/dL (32.0-36.0) L 12/28/23 09:00 RDW 17.2 % (12.0-15.0) H 12/28/23 09:00 Plt Count 249 10^3/uL (130-450) 12/28/23 09:00 MPV 9.9 fL (7.9-10.8) 12/28/23 09:00 Neut # (Auto) 15.5 10^3/uL (1.5-6.6) H 12/28/23 04:20 Lymph # (Auto) 0.6 10^3/uL (1.5-3.5) L 12/28/23 04:20 Rosebud # (Auto) 0.7 10^3/uL (0.0-1.0) 12/28/23 04:20 Eos # (Auto) 0.0 10^3/uL (0.0-0.7) 12/28/23 04:20 Baso # (Auto) 0.0 10^3/uL (0.0-0.1) 12/28/23 04:20 Absolute Nucleated RBC 0.00 x10^3/uL 12/28/23 04:20 Total Counted 100 12/25/23 11:40 Band Neuts % (Manual) 0 % (0-10) 12/25/23 11:40 Abnorm Lymph % (Manual) 0 % 12/25/23 11:40 Nucleated RBC % 0.0 /100WBC 12/28/23 04:20 Neutrophils # (Manual) 9.2 10^3/uL (1.5-6.6) H 12/25/23 11:40 Lymphocytes # (Manual) 4.1 10^3/uL (1.5-3.5) H 12/25/23 11:40 Monocytes # (Manual) 1.4 10^3/uL (0.0-1.0) H 12/25/23 11:40 Eosinophils # (Manual) 0.3 10^3/uL (0-0.7) 12/25/23 11:40 Basophils # (Manual) 0.2 10^3/uL (0-0.1) H 12/25/23 11:40 Differential Comment MANUAL DIFFERENTIAL 12/25/23 11:40 Manual Slide Review Indicated 12/25/23 11:40 WBC Morphology 2+ REACTIVE LYMPHS (NORMAL) 12/25/23 11:40 Platelet Estimate NORMAL (130-450,000) (NORMAL) 12/25/23 11:40 Platelet Morphology NORMAL APPEARANCE (NORMAL) 12/25/23 11:40 RBC Morph Micro Appear 1+ ANISOCYTOSIS (NORMAL) 12/25/23 11:40 APTT 73.3 secs (24.9-33.3) H 12/29/23 09:10 Bld Gas Analysis Time 0531 12/26/23 05:25 Sample Site RIGHT RADIAL 12/26/23 05:25 ABG pH 7.44 (7.35-7.45) 12/26/23 05:25 ABG pCO2 44 mmHg (34-45) 12/26/23 05:25 ABG pO2 70 mmHg (80-100) L 12/26/23 05:25 ABG HCO3 28.7 mmol/L (22.0-26.0) H 12/26/23 05:25 ABG Total CO2 30.0 MMOL/L (21.0-29.0) H 12/26/23 05:25 ABG O2 Saturation 94 % (94-98) 12/26/23 05:25 ABG Base Excess 3.9 mmol/L (-2.0-3.0) H 12/26/23 05:25 Elio Test POSITIVE 12/26/23 05:25 VBG pH 7.412 (7.31-7.41) H 12/28/23 04:20 Ionized Calcium 1.17 mmol/L (1.15-1.33) 12/28/23 04:20 Respiration Rate 20 b/min 12/26/23 05:25 O2 Delivery Device VENTILATOR 12/26/23 05:25 Vent Mode SIMV 12/26/23 05:25 FiO2 70.00 12/26/23 05:25 Tidal Volume 360 mL 12/26/23 05:25 PEEP 5 cmH2O 12/25/23 15:12 Pressure Support Vent 12 cmH2O 12/25/23 15:12 Sodium 140 mmol/L (135-145) 12/29/23 04:41 Potassium 4.7 mmol/L (3.5-4.5) H 12/29/23 04:41 Chloride 100 mmol/L (101-111) L 12/29/23 04:41 Carbon Dioxide 31 mmol/L (21-32) 12/29/23 04:41 Anion Gap 9.0 (6-13) 12/29/23 04:41 BUN 46 mg/dL (6-20) H 12/29/23 04:41 Creatinine 1.1 mg/dL (0.6-1.3) 12/29/23 04:41 Estimated GFR (MDRD) 51 (>89) L 12/29/23 04:41 Glucose 287 mg/dL (74-104) H 12/29/23 04:41 POC Whole Bld Glucose 192 mg/dL (70 - 100) H 12/29/23 18:20 Estimat Average Glucose 143 mg/dL (70-100) H 12/27/23 04:20 Hemoglobin A1c % 6.6 % (4.27-6.07) H 12/27/23 04:20 Calcium 9.8 mg/dL (8.5-10.3) 12/29/23 04:41 Phosphorus 3.8 mg/dL (2.5-5.0) 12/29/23 04:41 Magnesium 2.4 mg/dL (1.7-2.3) H 12/29/23 04:41 Total Bilirubin 0.3 mg/dL (0.2-1.0) 12/27/23 04:20 Direct Bilirubin < 0.10 mg/dL (0.03-0.18) 12/27/23 04:20 AST 9 IU/L (10-42) L 12/27/23 04:20 ALT 11 IU/L (10-60) 12/27/23 04:20 Alkaline Phosphatase 88 IU/L (42-121) 12/27/23 04:20 Troponin I High Sens 85.2 ng/L (2.3-14.8) H* 12/26/23 04:15 B-Natriuretic Peptide 303 pg/mL (5-100) H 12/25/23 16:38 Total Protein 6.1 g/dL (6.4-8.9) L 12/27/23 04:20 Albumin 3.5 g/dL (3.2-5.5) 12/27/23 04:20 Globulin 2.6 g/dL (2.1-4.2) 12/27/23 04:20 Albumin/Globulin Ratio 1.4 (1.0-2.2) 12/25/23 11:40 Prealbumin 29 mg/dL (17-34) 12/28/23 04:20 Triglycerides 111 mg/dL 12/26/23 04:15 Lipase 27 U/L (11-82) 12/25/23 11:40 Nasal Adenovirus (PCR) NOT DETECTED 12/25/23 12:05 Nasal B. parapertussis DNA (PCR) NOT DETECTED 12/25/23 12:05 Nasal Coronavir 229E PCR NOT DETECTED 12/25/23 12:05 Nasal Coronavir HKU1 PCR NOT DETECTED 12/25/23 12:05 Nasal Coronavir NL63 PCR NOT DETECTED 12/25/23 12:05 Nasal Coronavir OC43 PCR NOT DETECTED 12/25/23 12:05 Nasal Enterovir/Rhinovir PCR NOT DETECTED 12/25/23 12:05 Nasal Influenza B PCR NOT DETECTED 12/25/23 12:05 Nasal Influenza A PCR NOT DETECTED 12/25/23 12:05 Nasal Parainfluen 1 PCR NOT DETECTED 12/25/23 12:05 Nasal Parainfluen 2 PCR NOT DETECTED 12/25/23 12:05 Nasal Parainfluen 3 PCR NOT DETECTED 12/25/23 12:05 Nasal Parainfluen 4 PCR NOT DETECTED 12/25/23 12:05 Nasal RSV (PCR) NOT DETECTED 12/25/23 12:05 Nasal Screen MRSA (PCR) NEGATIVE (NEGATIVE) 12/25/23 17:35 Nasal B.pertussis DNA PCR NOT DETECTED 12/25/23 12:05 Nasal C.pneumoniae (PCR) NOT DETECTED 12/25/23 12:05 Azar Human Metapneumo PCR NOT DETECTED 12/25/23 12:05 Nasal M.pneumoniae (PCR) NOT DETECTED 12/25/23 12:05 Nasal SARS-CoV-2 (PCR) NOT DETECTED 12/25/23 12:05 Urine Opiates Screen NEGATIVE (NEGATIVE) 12/25/23 20:10 Ur Buprenorphine Scrn NEGATIVE (NEGATIVE) 12/25/23 20:10 Ur Oxycodone Screen NEGATIVE (NEGATIVE) 12/25/23 20:10 Urine Methadone Screen NEGATIVE (NEGATIVE) 12/25/23 20:10 Ur Barbiturates Screen NEGATIVE (NEGATIVE) 12/25/23 20:10 Ur Tricyclics Screen NEGATIVE (NEGATIVE) 12/25/23 20:10 Ur Phencyclidine Scrn NEGATIVE (NEGATIVE) 12/25/23 20:10 Ur Amphetamine Screen NEGATIVE (NEGATIVE) 12/25/23 20:10 U Methamphetamines Scrn NEGATIVE (NEGATIVE) 12/25/23 20:10 U Benzodiazepines Scrn NEGATIVE (NEGATIVE) 12/25/23 20:10 Urine Cocaine Screen NEGATIVE (NEGATIVE) 12/25/23 20:10 U Cannabinoids Screen NEGATIVE (NEGATIVE) 12/25/23 20:10 Ur Drug Screen Comment CUTOFF CONC BELOW: 12/25/23 20:10 - Procedures Procedures: Procedures (02/05/21) ESOPHAGOGASTRODUODENOSCOPY [EGD] W/CLOSED BIOPSY (11/29/13) INSERTION OF INFUSION DEV INTO SUP VENA CAVA, PERC APPROACH (12/28/17) MANUAL RUPT JOINT ADHES (04/27/14) TOTAL KNEE REPLACEMENT (06/16/14) Sepsis Event Note (H) - Evaluation Current Stage of Sepsis: Ruled out
[2023-12-30 04:34] LABS: HCT - HEMATOCRIT 45.8 % (37.0-47.0); HGB - HEMOGLOBIN 13.8 g/dL (12.0-16.0); MEAN CORPUSCULAR HGB CONC 30.1 g/dL (32.0-36.0); MEAN CORPUSCULAR VOLUME 86.4 fL (81.0-99.0); RED BLOOD COUNT 5.3 10^6/uL (4.20-5.40); RED CELL DISTRIBUTION WIDTH 17.6 % (12.0-15.0); WHITE BLOOD COUNT 15.7 x10^3/uL (4.8-10.8)
[2023-12-30 04:49] LABS: CALCIUM 9.7 mg/dL (8.5-10.3); POTASSIUM 4.9 mmol/L (3.5-4.5)
--- NOTE | 2023-12-30 08:07 | XRAY Report ---
PROCEDURE: Chest 1V INDICATIONS: s/p extubation TECHNIQUE: One view of the chest was acquired. COMPARISON: 12/27/23. FINDINGS: Surgical changes and devices: Pacemaker. Lungs and pleura: No pleural effusions or pneumothorax. Patchy bibasilar atelectasis. Mediastinum: Mediastinal contours appear normal. Cardiomegaly. Bones and chest wall: No suspicious bony lesions. Overlying soft tissues appear unremarkable. IMPRESSION: Cardiomegaly, that she bibasilar atelectasis. Reviewed by: Papo Reyes MD on 12/30/2023 8:05 AM PDT Approved by: Papo Reyes MD on 12/30/2023 8:05 AM PDT Station ID: [id number]
[2023-12-30] MEDS: methylPREDNISolone SUCCINATE 40 MG/ML VIAL IVP SCH (09:33)
[2023-12-30] MEDS: APIXABAN 5 MG TABLET PO SCH (11:39)
[2023-12-30] MEDS: HYDROcod/ACETAM 5/325 MG TABLET PO PRN (19:21)
--- NOTE | 2023-12-30 20:34 | PROVIDER PROGRESS NOTE ---
Assessment/Plan - Problem List (1) Acute respiratory failure with hypoxemia Assessment/Plan: Patient is doing well from a respiratory standpoint. Continue to encourage use of incentive spirometer. DuoNeb changed to as needed. Restart Pulmicort nebulizer treatments. Continue empiric coverage with ceftriaxone and metronidazole for possible aspiration. If patient remains afebrile and white blood cell count decreases, consider discontinuing antibiotics. (2) Anaphylactic reaction to bee sting Conclusion/Plan: Anaphylaxis appears to have resolved. Continue to monitor (3) Acute on chronic systolic heart failure Conclusion/Plan: Continue Lasix 40 mg daily by mouth Transthoracic echocardiogram performed in January 2023 where her LVEF was 30 to 35%. (4) COPD (chronic obstructive pulmonary disease) with hypoxia Conclusion/Plan: Continue DuoNebs. Systemic steroids discontinued. Start outpatient pulmicort. Clinically patient does not appear to be having an exacerbation of her COPD at this time. (5) Hypokalemia Conclusion/Plan: Continue to replace as needed (6) Chronic atrial fibrillation Conclusion/Plan: Stable continue to monitor. Heparin discontinued and apixaban initiated 5 mg twice daily (7) Diabetes mellitus type 2 in obese Conclusion/Plan: Continue sliding scale insulin. Continue glargine 10 units daily. (8) Hx of coronary artery disease Conclusion/Plan: Continue aspirin 81 mg. (9) Hypertension Conclusion/Plan: Currently well-controlled. Continue to monitor. (10) Sleep apnea Conclusion/Plan: Patient cannot tolerate CPAP. Continue to monitor. (11) Headache Conclusion/Plan: Continue to follow. [place] 5 mg every 4 hours as needed for headache. - Current Meds Current Meds: Current Medications Generic Name Dose Route Start Last Admin Trade Name Freq PRN Reason Stop Dose Admin Hydrocodone Bitart/Acetaminophen 1 tab 12/30/23 18:52 12/30/23 19:21 Hydrocod/Acetam 5/325 Mg Tablet PO 1 tab Q4HR PRN Administration Moderate Pain (Level 4-6) Albuterol/Ipratropium 3 ml 12/27/23 14:49 12/30/23 12:57 Ipratropium/Albuterol 3 Ml Neb INH 3 ml RTQ6H ROMAN Administration Apixaban 5 mg 12/30/23 11:00 12/30/23 11:39 Apixaban 5 Mg Tablet PO 5 mg BID ROMAN Administration Aspirin 81 mg 12/25/23 17:46 12/30/23 09:32 Aspirin Chew 81 Mg Tablet NG 81 mg DAILY ROMAN Administration Sodium Chloride 500 mls @ 20 mls/hr 12/25/23 20:26 12/30/23 00:31 Normal Saline 0.9% IV 20 mls/hr Q24H PRN Administration TKO RATE Ceftriaxone Sodium 2 gm/ 100 mls @ 200 mls/hr 12/27/23 13:00 12/30/23 10:16 Sodium Chloride IV Infused DAILY ROMAN Infusion Metronidazole 500 mg in 100 mls @ 100 mls/hr 12/27/23 13:00 12/30/23 14:40 Flagyl 500 Mg/100 Ml IV Infused Q8H ROMAN Infusion Insulin Glargine-yfgn 10 unit 12/28/23 21:59 12/29/23 21:18 Insulin Glargine-Yfgn 300 Unit/3 Ml Pen SUBQ 10 unit QPM ROMAN Administration Lorazepam 1 mg 12/27/23 14:37 12/30/23 04:30 Lorazepam 2 Mg/Ml Vial IVP 1 mg Q1H PRN Administration Anxiety Polyethylene Glycol 17 gm 12/28/23 09:00 12/30/23 09:33 Polyethylene Glycol 3350 17 Gm Packet PO Not Given DAILY ROMAN Sodium Chloride 10 ml 12/25/23 17:00 12/30/23 17:14 Sodium Chloride Flush 0.9% 10 Ml Syringe IVP 10 ml 0100,0900,1700 ROMAN Administration Sodium Chloride 10 ml 12/25/23 16:54 12/30/23 04:31 Sodium Chloride Flush 0.9% 10 Ml Syringe IVP 10 ml PRN PRN Administration NEEDED PER PROVIDER ORDERS - Lab Result Fish Bone Diagrams: 12/30/23 04:20 12/30/23 04:20 - Additional Planning My Orders: My Active Orders 12/30/23 11:00 Apixaban [Eliquis] 5 mg PO BID 12/30/23 Lunch DIET [Carb-controlled Diet] [DIET] 12/30/23 18:44 Blood Glucose Checks - Eating [RC] 0800,1200,1700,2100 Initiate Hypoglycemia Protocol [RC] .protocol 12/30/23 18:52 HYDROcod/ACETAM 5/325 [[place] 5/325] 1 tab PO Q4HR PRN 12/30/23 20:20 C DIFF PCR Routine 12/30/23 21:00 Insulin Lispro [Humalog Kwikpen U-100] 1 - 9 unit SUBQ 0800,1200,1700,2100 Subjective - Subjective Patient Reports: Other (Alert. Breathing is at baseline. Denies chest pain and abdominal pain. Patient is complaining of headache.) Objective Vital Signs: Vital Signs - 24 hr 12/29/23 12/29/23 12/29/23 21:00 22:00 22:34 Temperature 36.4 C L Heart Rate 58 L Heart Rate [ 68 60 Monitoring electrodes] Respiratory 20 16 28 H Rate Blood Pressure 88/72 L 113/87 H [Right Radial artery] O2 Saturation 90 L 91 L If not protocol 3 3 3 : Oxygen Flow, liters/minute 12/29/23 12/30/23 12/30/23 23:00 00:00 01:00 Temperature 36.5 C Heart Rate Heart Rate [ 76 71 77 Monitoring electrodes] Respiratory 17 17 23 Rate Blood Pressure 105/53 L 128/69 145/62 H [Right Radial artery] O2 Saturation 90 L 90 L 89 L If not protocol 3 10 4 : Oxygen Flow, liters/minute 12/30/23 12/30/23 12/30/23 02:00 03:00 04:00 Temperature 36.5 C Heart Rate Heart Rate [ 81 84 73 Monitoring electrodes] Respiratory 21 17 19 Rate Blood Pressure 116/87 H 121/67 109/72 [Right Radial artery] O2 Saturation 91 L 89 L 90 L If not protocol 4 4 4 : Oxygen Flow, liters/minute 12/30/23 12/30/23 12/30/23 05:00 05:48 07:00 Temperature Heart Rate Heart Rate [ 72 65 67 Monitoring electrodes] Respiratory 19 18 21 Rate Blood Pressure 132/56 H 132/56 H 128/75 [Right Radial artery] O2 Saturation 91 L 90 L 98 If not protocol 4 4 4 : Oxygen Flow, liters/minute 12/30/23 12/30/23 12/30/23 07:03 08:00 09:00 Temperature 36.5 C Heart Rate 76 Heart Rate [ 82 80 Monitoring electrodes] Respiratory 16 20 22 Rate Blood Pressure 111/87 H 143/79 H [Right Radial artery] O2 Saturation 92 95 If not protocol 4 4 4 : Oxygen Flow, liters/minute 12/30/23 12/30/23 12/30/23 10:00 11:00 12:00 Temperature 36.6 C Heart Rate Heart Rate [ 91 94 92 Monitoring electrodes] Respiratory 25 H 18 Rate Blood Pressure 149/81 H 146/96 H 161/90 H [Right Radial artery] O2 Saturation 91 L 96 97 If not protocol 4 4 4 : Oxygen Flow, liters/minute 12/30/23 12/30/23 12/30/23 12:58 13:00 14:00 Temperature 37.2 C Heart Rate 98 Heart Rate [ 98 95 Monitoring electrodes] Respiratory 20 22 22 Rate Blood Pressure 137/89 H 152/83 H [Right Radial artery] O2 Saturation 98 89 L If not protocol 4 4 : Oxygen Flow, liters/minute 12/30/23 12/30/23 12/30/23 15:00 16:00 18:37 Temperature 36.6 C Heart Rate Heart Rate [ 88 77 74 Monitoring electrodes] Respiratory 22 17 20 Rate Blood Pressure 145/100 H 140/90 H 157/81 H [Right Radial artery] O2 Saturation 94 97 98 If not protocol 4 4 4 : Oxygen Flow, liters/minute 12/30/23 20:21 Temperature 36.5 C Heart Rate Heart Rate [ 69 Monitoring electrodes] Respiratory 22 Rate Blood Pressure 158/86 H [Right Radial artery] O2 Saturation 97 If not protocol 4 : Oxygen Flow, liters/minute Oxygen O2 Source [With Activity] Room air O2 Source Simple Mask I&O (Last 24 Hrs): Intake and Output Totals x24h 12/28/23 12/29/23 12/30/23 23:59 23:59 23:59 Intake Total 3416.809 9844.627 2392.157 Output Total 4229 4720 1420 Balance -812.191 -3235.287 160.157 General: Alert, Oriented x3, No acute distress Neck: Supple, No JVD Neuro: Alert, Non Focal Cardiovascular: Other (Positive S1-S2 no extra heart sounds.) Respiratory: Other (Fair air exchange in all lung mathews no wheezing or crackles.) Abdomen: Other (Soft nontender nondistended positive bowel sounds.) Extremities: No cyanosis, No edema Skin: No rashes - Results Results: Laboratory Results WBC 15.7 x10^3/uL (4.8-10.8) H 12/30/23 04:20 RBC 5.30 10^6/uL (4.20-5.40) 12/30/23 04:20 Hgb 13.8 g/dL (12.0-16.0) 12/30/23 04:20 Hct 45.8 % (37.0-47.0) 12/30/23 04:20 MCV 86.4 fL (81.0-99.0) 12/30/23 04:20 MCH 26.0 pg (27.0-31.0) L 12/30/23 04:20 MCHC 30.1 g/dL (32.0-36.0) L 12/30/23 04:20 RDW 17.6 % (12.0-15.0) H 12/30/23 04:20 Plt Count 283 10^3/uL (130-450) 12/30/23 04:20 MPV 11.0 fL (7.9-10.8) H 12/30/23 04:20 Neut # (Auto) 15.5 10^3/uL (1.5-6.6) H 12/28/23 04:20 Lymph # (Auto) 0.6 10^3/uL (1.5-3.5) L 12/28/23 04:20 [place] # (Auto) 0.7 10^3/uL (0.0-1.0) 12/28/23 04:20 Eos # (Auto) 0.0 10^3/uL (0.0-0.7) 12/28/23 04:20 Baso # (Auto) 0.0 10^3/uL (0.0-0.1) 12/28/23 04:20 Absolute Nucleated RBC 0.00 x10^3/uL 12/28/23 04:20 Total Counted 100 12/25/23 11:40 Band Neuts % (Manual) 0 % (0-10) 12/25/23 11:40 Abnorm Lymph % (Manual) 0 % 12/25/23 11:40 Nucleated RBC % 0.0 /100WBC 12/28/23 04:20 Neutrophils # (Manual) 9.2 10^3/uL (1.5-6.6) H 12/25/23 11:40 Lymphocytes # (Manual) 4.1 10^3/uL (1.5-3.5) H 12/25/23 11:40 Monocytes # (Manual) 1.4 10^3/uL (0.0-1.0) H 12/25/23 11:40 Eosinophils # (Manual) 0.3 10^3/uL (0-0.7) 12/25/23 11:40 Basophils # (Manual) 0.2 10^3/uL (0-0.1) H 12/25/23 11:40 Differential Comment MANUAL DIFFERENTIAL 12/25/23 11:40 Manual Slide Review Indicated 12/25/23 11:40 WBC Morphology 2+ REACTIVE LYMPHS (NORMAL) 12/25/23 11:40 Platelet Estimate NORMAL (130-450,000) (NORMAL) 12/25/23 11:40 Platelet Morphology NORMAL APPEARANCE (NORMAL) 12/25/23 11:40 RBC Morph Micro Appear 1+ ANISOCYTOSIS (NORMAL) 12/25/23 11:40 APTT 96.0 secs (24.9-33.3) H* 12/30/23 04:20 Bld Gas Analysis Time 0531 12/26/23 05:25 Sample Site RIGHT RADIAL 12/26/23 05:25 ABG pH 7.44 (7.35-7.45) 12/26/23 05:25 ABG pCO2 44 mmHg (34-45) 12/26/23 05:25 ABG pO2 70 mmHg (80-100) L 12/26/23 05:25 ABG HCO3 28.7 mmol/L (22.0-26.0) H 12/26/23 05:25 ABG Total CO2 30.0 MMOL/L (21.0-29.0) H 12/26/23 05:25 ABG O2 Saturation 94 % (94-98) 12/26/23 05:25 ABG Base Excess 3.9 mmol/L (-2.0-3.0) H 12/26/23 05:25 Elio Test POSITIVE 12/26/23 05:25 VBG pH 7.412 (7.31-7.41) H 12/28/23 04:20 Ionized Calcium 1.17 mmol/L (1.15-1.33) 12/28/23 04:20 Respiration Rate 20 b/min 12/26/23 05:25 O2 Delivery Device VENTILATOR 12/26/23 05:25 Vent Mode SIMV 12/26/23 05:25 FiO2 70.00 12/26/23 05:25 Tidal Volume 360 mL 12/26/23 05:25 PEEP 5 cmH2O 12/25/23 15:12 Pressure Support Vent 12 cmH2O 12/25/23 15:12 Sodium 140 mmol/L (135-145) 12/30/23 04:20 Potassium 4.9 mmol/L (3.5-4.5) H 12/30/23 04:20 Chloride 97 mmol/L (101-111) L 12/30/23 04:20 Carbon Dioxide 33 mmol/L (21-32) H 12/30/23 04:20 Anion Gap 10.0 (6-13) 12/30/23 04:20 BUN 49 mg/dL (6-20) H 12/30/23 04:20 Creatinine 1.0 mg/dL (0.6-1.3) 12/30/23 04:20 Estimated GFR (MDRD) 57 (>89) L 12/30/23 04:20 Glucose 202 mg/dL (74-104) H 12/30/23 04:20 POC Whole Bld Glucose 214 mg/dL (70 - 100) H 12/30/23 20:19 Estimat Average Glucose 143 mg/dL (70-100) H 12/27/23 04:20 Hemoglobin A1c % 6.6 % (4.27-6.07) H 12/27/23 04:20 Calcium 9.7 mg/dL (8.5-10.3) 12/30/23 04:20 Phosphorus 3.8 mg/dL (2.5-5.0) 12/29/23 04:41 Magnesium 2.4 mg/dL (1.7-2.3) H 12/29/23 04:41 Total Bilirubin 0.3 mg/dL (0.2-1.0) 12/27/23 04:20 Direct Bilirubin < 0.10 mg/dL (0.03-0.18) 12/27/23 04:20 AST 9 IU/L (10-42) L 12/27/23 04:20 ALT 11 IU/L (10-60) 12/27/23 04:20 Alkaline Phosphatase 88 IU/L (42-121) 12/27/23 04:20 Troponin I High Sens 85.2 ng/L (2.3-14.8) H* 12/26/23 04:15 B-Natriuretic Peptide 303 pg/mL (5-100) H 12/25/23 16:38 Total Protein 6.1 g/dL (6.4-8.9) L 12/27/23 04:20 Albumin 3.5 g/dL (3.2-5.5) 12/27/23 04:20 Globulin 2.6 g/dL (2.1-4.2) 12/27/23 04:20 Albumin/Globulin Ratio 1.4 (1.0-2.2) 12/25/23 11:40 Prealbumin 29 mg/dL (17-34) 12/28/23 04:20 Triglycerides 111 mg/dL 12/26/23 04:15 Lipase 27 U/L (11-82) 12/25/23 11:40 Nasal Adenovirus (PCR) NOT DETECTED 12/25/23 12:05 Nasal B. parapertussis DNA (PCR) NOT DETECTED 12/25/23 12:05 Nasal Coronavir 229E PCR NOT DETECTED 12/25/23 12:05 Nasal Coronavir HKU1 PCR NOT DETECTED 12/25/23 12:05 Nasal Coronavir NL63 PCR NOT DETECTED 12/25/23 12:05 Nasal Coronavir OC43 PCR NOT DETECTED 12/25/23 12:05 Nasal Enterovir/Rhinovir PCR NOT DETECTED 12/25/23 12:05 Nasal Influenza B PCR NOT DETECTED 12/25/23 12:05 Nasal Influenza A PCR NOT DETECTED 12/25/23 12:05 Nasal Parainfluen 1 PCR NOT DETECTED 12/25/23 12:05 Nasal Parainfluen 2 PCR NOT DETECTED 12/25/23 12:05 Nasal Parainfluen 3 PCR NOT DETECTED 12/25/23 12:05 Nasal Parainfluen 4 PCR NOT DETECTED 12/25/23 12:05 Nasal RSV (PCR) NOT DETECTED 12/25/23 12:05 Nasal Screen MRSA (PCR) NEGATIVE (NEGATIVE) 12/25/23 17:35 Nasal B.pertussis DNA PCR NOT DETECTED 12/25/23 12:05 Nasal C.pneumoniae (PCR) NOT DETECTED 12/25/23 12:05 Azar Human Metapneumo PCR NOT DETECTED 12/25/23 12:05 Nasal M.pneumoniae (PCR) NOT DETECTED 12/25/23 12:05 Nasal SARS-CoV-2 (PCR) NOT DETECTED 12/25/23 12:05 Urine Opiates Screen NEGATIVE (NEGATIVE) 12/25/23 20:10 Ur Buprenorphine Scrn NEGATIVE (NEGATIVE) 12/25/23 20:10 Ur Oxycodone Screen NEGATIVE (NEGATIVE) 12/25/23 20:10 Urine Methadone Screen NEGATIVE (NEGATIVE) 12/25/23 20:10 Ur Barbiturates Screen NEGATIVE (NEGATIVE) 12/25/23 20:10 Ur Tricyclics Screen NEGATIVE (NEGATIVE) 12/25/23 20:10 Ur Phencyclidine Scrn NEGATIVE (NEGATIVE) 12/25/23 20:10 Ur Amphetamine Screen NEGATIVE (NEGATIVE) 12/25/23 20:10 U Methamphetamines Scrn NEGATIVE (NEGATIVE) 12/25/23 20:10 U Benzodiazepines Scrn NEGATIVE (NEGATIVE) 12/25/23 20:10 Urine Cocaine Screen NEGATIVE (NEGATIVE) 12/25/23 20:10 U Cannabinoids Screen NEGATIVE (NEGATIVE) 12/25/23 20:10 Ur Drug Screen Comment CUTOFF CONC BELOW: 12/25/23 20:10 - Procedures Procedures: Procedures (02/05/21) ESOPHAGOGASTRODUODENOSCOPY [EGD] W/CLOSED BIOPSY (11/29/13) INSERTION OF INFUSION DEV INTO SUP VENA CAVA, PERC APPROACH (12/28/17) MANUAL RUPT JOINT ADHES (04/27/14) TOTAL KNEE REPLACEMENT (06/16/14) Sepsis Event Note (H) - Evaluation Current Stage of Sepsis: Ruled out
[2023-12-30] MEDS: INSULIN LISPRO 300 UNIT/3 ML PEN SUBQ SCH (20:40)
[2023-12-30] MEDS: FAMOTIDINE 20 MG TABLET PO SCH (20:42)
[2023-12-31] MEDS: IPRATROPIUM/ALBUTEROL 3 ML NEB INH PRN (00:03)
[2023-12-31] MEDS: BUDESONIDE 0.5 MG/2 ML NEB INH SCH (00:05)
[2023-12-31] MEDS: VANCOMYCIN 125 MG CAPSULE PO SCH (00:55)
[2023-12-31 06:37] LABS: HGB - HEMOGLOBIN 12.3 g/dL (12.0-16.0); MEAN CORPUSCULAR HEMOGLOBIN 25.6 pg (27.0-31.0); MEAN CORPUSCULAR VOLUME 85.4 fL (81.0-99.0); MEAN PLATELET VOLUME 10.2 fL (7.9-10.8); RED BLOOD COUNT 4.8 10^6/uL (4.20-5.40); RED CELL DISTRIBUTION WIDTH 17.5 % (12.0-15.0); WHITE BLOOD COUNT 17.9 x10^3/uL (4.8-10.8)
[2023-12-31 06:47] LABS: CALCIUM 9.3 mg/dL (8.5-10.3); CREATININE 1.2 mg/dL (0.6-1.3); MAGNESIUM 2.1 mg/dL (1.7-2.3); PHOSPHORUS 4.8 mg/dL (2.5-5.0); POTASSIUM 4.1 mmol/L (3.5-4.5)
[2023-12-31] MEDS: FUROSEMIDE 40 MG TABLET PO SCH (09:13)
[2023-12-31] MEDS: AMIODARONE 200 MG TABLET PO SCH (09:13)
--- NOTE | 2023-12-31 13:56 | PROVIDER PROGRESS NOTE ---
Assessment/Plan - Problem List (1) Acute respiratory failure with hypoxemia Assessment/Plan: Patient is doing well from a respiratory standpoint. Continue to encourage use of incentive spirometer. DuoNeb changed to as needed. Restart Pulmicort nebulizer treatments. Continue empiric coverage with ceftriaxone and metronidazole for possible aspiration. If patient remains afebrile and white blood cell count decreases, consider discontinuing antibiotics. (2) Anaphylactic reaction to bee sting Conclusion/Plan: Anaphylaxis appears to have resolved. Continue to monitor (3) Acute on chronic systolic heart failure Conclusion/Plan: Continue Lasix 40 mg daily by mouth Transthoracic echocardiogram performed in January 2023 demonstrated LVEF was 30 to 35%. (4) COPD (chronic obstructive pulmonary disease) with hypoxia Conclusion/Plan: Continue DuoNebs. Systemic steroids discontinued. Start outpatient pulmicort. Clinically patient does not appear to be having an exacerbation of her COPD at this time. (5) Hypokalemia Conclusion/Plan: Continue to replace as needed (6) Chronic atrial fibrillation Conclusion/Plan: Stable continue to monitor. Heparin discontinued and apixaban initiated 5 mg twice daily (7) Diabetes mellitus type 2 in obese Conclusion/Plan: Continue sliding scale insulin. Continue glargine 10 units daily. (8) Hx of coronary artery disease Conclusion/Plan: Continue aspirin 81 mg. (9) Hypertension Conclusion/Plan: Restart metoprolol 50 mg daily. (10) Sleep apnea Conclusion/Plan: Patient cannot tolerate CPAP. Continue to monitor. (11) Headache Conclusion/Plan: Continue to follow. [place] 5 mg every 4 hours as needed for headache. (12) C. Diff Colitis Conclusion/Plan: Continue vancomycin 125 mg po four times a day. With a WBC count of 17.9K and she has severe D.Diff and warrants further observation in the hospital. Continue to monitor. - Current Meds Current Meds: Current Medications Generic Name Dose Route Start Last Admin Trade Name Freq PRN Reason Stop Dose Admin Hydrocodone Bitart/Acetaminophen 1 tab 12/30/23 18:52 12/31/23 13:30 Hydrocod/Acetam 5/325 Mg Tablet PO 1 tab Q4HR PRN Administration Moderate Pain (Level 4-6) Albuterol/Ipratropium 3 ml 12/30/23 20:39 12/31/23 08:43 Ipratropium/Albuterol 3 Ml Neb INH 3 ml RTQ6H PRN Administration Dyspnea Amiodarone HCl 100 mg 12/31/23 09:00 12/31/23 09:13 Amiodarone 200 Mg Tablet PO 100 mg DAILY ROMAN Administration Apixaban 5 mg 12/30/23 11:00 12/31/23 09:13 Apixaban 5 Mg Tablet PO 5 mg BID ROMAN Administration Aspirin 81 mg 12/25/23 17:46 12/31/23 09:13 Aspirin Chew 81 Mg Tablet NG 81 mg DAILY ROMAN Administration Budesonide 0.5 mg 12/30/23 21:00 12/31/23 08:43 Budesonide 0.5 Mg/2 Ml Neb INH 0.5 mg BID ROMAN Administration Famotidine 20 mg 12/30/23 21:00 12/31/23 09:14 Famotidine 20 Mg Tablet PO 20 mg BID ROMAN Administration Furosemide 40 mg 12/31/23 09:00 12/31/23 09:13 Furosemide 40 Mg Tablet PO 40 mg DAILY ROMAN Administration Insulin Glargine-yfgn 10 unit 12/28/23 21:59 12/30/23 20:41 Insulin Glargine-Yfgn 300 Unit/3 Ml Pen SUBQ 10 unit QPM ROMAN Administration Insulin Human Lispro 1 - 9 unit 12/30/23 21:00 12/31/23 11:53 Insulin Lispro 300 Unit/3 Ml Pen SUBQ Not Given 0800,1200,1700,2100 [facility]LY [facility], [facility] Protocol Lorazepam 1 mg 12/27/23 14:37 12/30/23 04:30 Lorazepam 2 Mg/Ml Vial IVP 1 mg Q1H PRN Administration Anxiety Polyethylene Glycol 17 gm 12/28/23 09:00 12/31/23 08:09 Polyethylene Glycol 3350 17 Gm Packet PO Not Given DAILY FOR[facility]LY [facility], [facility]–1983 Sodium Chloride 10 ml 12/25/23 17:00 12/31/23 04:40 Sodium Chloride Flush 0.9% 10 Ml Syringe IVP 10 ml 0100,0900,1700 FOR[facility], [facility]1983 Administration Sodium Chloride 10 ml 12/25/23 16:54 12/30/23 20:39 Sodium Chloride Flush 0.9% 10 Ml Syringe IVP 10 ml PRN PRN Administration NEEDED PER PROVIDER ORDERS Vancomycin HCl 125 mg 12/31/23 01:00 12/31/23 13:30 Vancomycin 125 Mg Capsule PO 125 mg QID ROMAN Administration - Lab Result Fish Bone Diagrams: 12/31/23 06:20 12/31/23 06:20 - Additional Planning My Orders: My Active Orders 12/30/23 18:44 Blood Glucose Checks - Eating [RC] 0800,1200,1700,2100 Initiate Hypoglycemia Protocol [RC] .protocol 12/30/23 18:52 HYDROcod/ACETAM 5/325 [[place] 5/325] 1 tab PO Q4HR PRN 12/30/23 20:39 Ipratropium/Albuterol [Duoneb] 3 ml INH RTQ6H PRN 12/30/23 20:42 Nebulizer/MDI Tx. [RC] QID Resp Teach Nebulizer/MDI [RC] .ONCE 12/30/23 21:00 Budesonide [Pulmicort] 0.5 mg INH BID Insulin Lispro [Humalog Kwikpen U-100] 1 - 9 unit SUBQ 0800,1200,1700,2100 12/31/23 09:00 Amiodarone [Pacerone] 100 mg PO DAILY Furosemide [Lasix] 40 mg PO DAILY 12/31/23 11:39 Melatonin 3 mg PO QPM PRN 12/31/23 14:00 Metoprolol Tartrate [Lopressor] 50 mg PO BID Subjective - Subjective Patient Reports: Other (She is tearful today because of very frequent bowel movements secondary to C. difficile colitis.Alert. Denies chest pain abdominal pain. Breathing is at baseline. Roxann uses 3 LPM at home.) Objective Vital Signs: Vital Signs - 24 hr 12/30/23 12/30/23 12/30/23 14:00 15:00 16:00 Temperature 37.2 C Heart Rate Heart Rate [ 95 88 77 Monitoring electrodes] Heart Rate [ Radial] Respiratory 22 22 17 Rate Blood Pressure 152/83 H 145/100 H 140/90 H [Right Radial artery] Blood Pressure [left radial] O2 Saturation 89 L 94 97 If not protocol 4 4 4 : Oxygen Flow, liters/minute 12/30/23 12/30/23 12/30/23 18:37 20:21 23:07 Temperature 36.6 C 36.5 C 36.0 C L Heart Rate Heart Rate [ 74 69 73 Monitoring electrodes] Heart Rate [ Radial] Respiratory 20 22 23 Rate Blood Pressure 157/81 H 158/86 H 163/93 H [Right Radial artery] Blood Pressure [left radial] O2 Saturation 98 97 98 If not protocol 4 4 4 : Oxygen Flow, liters/minute 12/30/23 12/31/23 12/31/23 23:55 00:07 00:39 Temperature 36.3 C L Heart Rate 74 Heart Rate [ 73 Monitoring electrodes] Heart Rate [ Radial] Respiratory 24 20 Rate Blood Pressure [Right Radial artery] Blood Pressure 114/90 H [left radial] O2 Saturation 95 If not protocol 5 5 4 : Oxygen Flow, liters/minute 12/31/23 12/31/23 12/31/23 05:05 07:48 08:44 Temperature 36.3 C L 36.3 C L Heart Rate 70 Heart Rate [ Monitoring electrodes] Heart Rate [ 59 L 66 Radial] Respiratory 18 22 22 Rate Blood Pressure 160/88 H 155/82 H [Right Radial artery] Blood Pressure [left radial] O2 Saturation 97 96 If not protocol 4 3 4 : Oxygen Flow, liters/minute 12/31/23 12/31/23 12/31/23 08:59 09:15 11:16 Temperature 36.4 C L Heart Rate Heart Rate [ Monitoring electrodes] Heart Rate [ 81 Radial] Respiratory 20 24 Rate Blood Pressure 161/79 H [Right Radial artery] Blood Pressure [left radial] O2 Saturation 95 97 If not protocol 4 3 : Oxygen Flow, liters/minute 12/31/23 12/31/23 13:40 13:43 Temperature Heart Rate Heart Rate [ Monitoring electrodes] Heart Rate [ Radial] Respiratory 20 Rate Blood Pressure [Right Radial artery] Blood Pressure [left radial] O2 Saturation 95 If not protocol 3 : Oxygen Flow, liters/minute Oxygen O2 Source [With Activity] Room air O2 Source Oxymask I&O (Last 24 Hrs): Intake and Output Totals x24h 12/29/23 12/30/23 12/31/23 23:59 23:59 23:59 Intake Total 6741.592 1684.157 1280 Output Total 4720 1420 Balance -3235.287 609.480 7449 General: Alert, No acute distress Neck: No JVD Cardiovascular: Other (Positive S1-S2 no extra heart sounds.) Respiratory: Other (Fair air exchange in lung mathews no wheezing or crackles) Abdomen: Other (Soft nontender nondistended positive bowel sounds) Extremities: No cyanosis Skin: No rashes - Results Results: Laboratory Results WBC 17.9 x10^3/uL (4.8-10.8) H 12/31/23 06:20 RBC 4.80 10^6/uL (4.20-5.40) 12/31/23 06:20 Hgb 12.3 g/dL (12.0-16.0) 12/31/23 06:20 Hct 41.0 % (37.0-47.0) 12/31/23 06:20 MCV 85.4 fL (81.0-99.0) 12/31/23 06:20 MCH 25.6 pg (27.0-31.0) L 12/31/23 06:20 MCHC 30.0 g/dL (32.0-36.0) L 12/31/23 06:20 RDW 17.5 % (12.0-15.0) H 12/31/23 06:20 Plt Count 323 10^3/uL (130-450) 12/31/23 06:20 MPV 10.2 fL (7.9-10.8) 12/31/23 06:20 Neut # (Auto) 15.5 10^3/uL (1.5-6.6) H 12/28/23 04:20 Lymph # (Auto) 0.6 10^3/uL (1.5-3.5) L 12/28/23 04:20 [place] # (Auto) 0.7 10^3/uL (0.0-1.0) 12/28/23 04:20 Eos # (Auto) 0.0 10^3/uL (0.0-0.7) 12/28/23 04:20 Baso # (Auto) 0.0 10^3/uL (0.0-0.1) 12/28/23 04:20 Absolute Nucleated RBC 0.00 x10^3/uL 12/28/23 04:20 Total Counted 100 12/25/23 11:40 Band Neuts % (Manual) 0 % (0-10) 12/25/23 11:40 Abnorm Lymph % (Manual) 0 % 12/25/23 11:40 Nucleated RBC % 0.0 /100WBC 12/28/23 04:20 Neutrophils # (Manual) 9.2 10^3/uL (1.5-6.6) H 12/25/23 11:40 Lymphocytes # (Manual) 4.1 10^3/uL (1.5-3.5) H 12/25/23 11:40 Monocytes # (Manual) 1.4 10^3/uL (0.0-1.0) H 12/25/23 11:40 Eosinophils # (Manual) 0.3 10^3/uL (0-0.7) 12/25/23 11:40 Basophils # (Manual) 0.2 10^3/uL (0-0.1) H 12/25/23 11:40 Differential Comment MANUAL DIFFERENTIAL 12/25/23 11:40 Manual Slide Review Indicated 12/25/23 11:40 WBC Morphology 2+ REACTIVE LYMPHS (NORMAL) 12/25/23 11:40 Platelet Estimate NORMAL (130-450,000) (NORMAL) 12/25/23 11:40 Platelet Morphology NORMAL APPEARANCE (NORMAL) 12/25/23 11:40 RBC Morph Micro Appear 1+ ANISOCYTOSIS (NORMAL) 12/25/23 11:40 APTT 96.0 secs (24.9-33.3) H* 12/30/23 04:20 Bld Gas Analysis Time 0531 12/26/23 05:25 Sample Site RIGHT RADIAL 12/26/23 05:25 ABG pH 7.44 (7.35-7.45) 12/26/23 05:25 ABG pCO2 44 mmHg (34-45) 12/26/23 05:25 ABG pO2 70 mmHg (80-100) L 12/26/23 05:25 ABG HCO3 28.7 mmol/L (22.0-26.0) H 12/26/23 05:25 ABG Total CO2 30.0 MMOL/L (21.0-29.0) H 12/26/23 05:25 ABG O2 Saturation 94 % (94-98) 12/26/23 05:25 ABG Base Excess 3.9 mmol/L (-2.0-3.0) H 12/26/23 05:25 Elio Test POSITIVE 12/26/23 05:25 VBG pH 7.412 (7.31-7.41) H 12/28/23 04:20 Ionized Calcium 1.17 mmol/L (1.15-1.33) 12/28/23 04:20 Respiration Rate 20 b/min 12/26/23 05:25 O2 Delivery Device VENTILATOR 12/26/23 05:25 Vent Mode SIMV 12/26/23 05:25 FiO2 70.00 12/26/23 05:25 Tidal Volume 360 mL 12/26/23 05:25 PEEP 5 cmH2O 12/25/23 15:12 Pressure Support Vent 12 cmH2O 12/25/23 15:12 Sodium 135 mmol/L (135-145) 12/31/23 06:20 Potassium 4.1 mmol/L (3.5-4.5) 12/31/23 06:20 Chloride 96 mmol/L (101-111) L 12/31/23 06:20 Carbon Dioxide 31 mmol/L (21-32) 12/31/23 06:20 Anion Gap 8.0 (6-13) 12/31/23 06:20 BUN 45 mg/dL (6-20) H 12/31/23 06:20 Creatinine 1.2 mg/dL (0.6-1.3) 12/31/23 06:20 Estimated GFR (MDRD) 46 (>89) L 12/31/23 06:20 Glucose 118 mg/dL (74-104) H 12/31/23 06:20 POC Whole Bld Glucose 138 mg/dL (70 - 100) H 12/31/23 11:48 Estimat Average Glucose 143 mg/dL (70-100) H 12/27/23 04:20 Hemoglobin A1c % 6.6 % (4.27-6.07) H 12/27/23 04:20 Calcium 9.3 mg/dL (8.5-10.3) 12/31/23 06:20 Phosphorus 4.8 mg/dL (2.5-5.0) 12/31/23 06:20 Magnesium 2.1 mg/dL (1.7-2.3) 12/31/23 06:20 Total Bilirubin 0.3 mg/dL (0.2-1.0) 12/27/23 04:20 Direct Bilirubin < 0.10 mg/dL (0.03-0.18) 12/27/23 04:20 AST 9 IU/L (10-42) L 12/27/23 04:20 ALT 11 IU/L (10-60) 12/27/23 04:20 Alkaline Phosphatase 88 IU/L (42-121) 12/27/23 04:20 Troponin I High Sens 85.2 ng/L (2.3-14.8) H* 12/26/23 04:15 B-Natriuretic Peptide 303 pg/mL (5-100) H 12/25/23 16:38 Total Protein 6.1 g/dL (6.4-8.9) L 12/27/23 04:20 Albumin 3.5 g/dL (3.2-5.5) 12/27/23 04:20 Globulin 2.6 g/dL (2.1-4.2) 12/27/23 04:20 Albumin/Globulin Ratio 1.4 (1.0-2.2) 12/25/23 11:40 Prealbumin 29 mg/dL (17-34) 12/28/23 04:20 Triglycerides 111 mg/dL 12/26/23 04:15 Lipase 27 U/L (11-82) 12/25/23 11:40 Nasal Adenovirus (PCR) NOT DETECTED 12/25/23 12:05 Nasal B. parapertussis DNA (PCR) NOT DETECTED 12/25/23 12:05 Nasal Coronavir 229E PCR NOT DETECTED 12/25/23 12:05 Nasal Coronavir HKU1 PCR NOT DETECTED 12/25/23 12:05 Nasal Coronavir NL63 PCR NOT DETECTED 12/25/23 12:05 Nasal Coronavir OC43 PCR NOT DETECTED 12/25/23 12:05 Nasal Enterovir/Rhinovir PCR NOT DETECTED 12/25/23 12:05 Nasal Influenza B PCR NOT DETECTED 12/25/23 12:05 Nasal Influenza A PCR NOT DETECTED 12/25/23 12:05 Nasal Parainfluen 1 PCR NOT DETECTED 12/25/23 12:05 Nasal Parainfluen 2 PCR NOT DETECTED 12/25/23 12:05 Nasal Parainfluen 3 PCR NOT DETECTED 12/25/23 12:05 Nasal Parainfluen 4 PCR NOT DETECTED 12/25/23 12:05 Nasal RSV (PCR) NOT DETECTED 12/25/23 12:05 Nasal Screen MRSA (PCR) NEGATIVE (NEGATIVE) 12/25/23 17:35 Nasal B.pertussis DNA PCR NOT DETECTED 12/25/23 12:05 Nasal C.pneumoniae (PCR) NOT DETECTED 12/25/23 12:05 Azar Human Metapneumo PCR NOT DETECTED 12/25/23 12:05 Nasal M.pneumoniae (PCR) NOT DETECTED 12/25/23 12:05 Nasal SARS-CoV-2 (PCR) NOT DETECTED 12/25/23 12:05 Stl C. diff Tox B Gene POSITIVE (NEGATIVE) A* 12/30/23 20:20 Urine Opiates Screen NEGATIVE (NEGATIVE) 12/25/23 20:10 Ur Buprenorphine Scrn NEGATIVE (NEGATIVE) 12/25/23 20:10 Ur Oxycodone Screen NEGATIVE (NEGATIVE) 12/25/23 20:10 Urine Methadone Screen NEGATIVE (NEGATIVE) 12/25/23 20:10 Ur Barbiturates Screen NEGATIVE (NEGATIVE) 12/25/23 20:10 Ur Tricyclics Screen NEGATIVE (NEGATIVE) 12/25/23 20:10 Ur Phencyclidine Scrn NEGATIVE (NEGATIVE) 12/25/23 20:10 Ur Amphetamine Screen NEGATIVE (NEGATIVE) 12/25/23 20:10 U Methamphetamines Scrn NEGATIVE (NEGATIVE) 12/25/23 20:10 U Benzodiazepines Scrn NEGATIVE (NEGATIVE) 12/25/23 20:10 Urine Cocaine Screen NEGATIVE (NEGATIVE) 12/25/23 20:10 U Cannabinoids Screen NEGATIVE (NEGATIVE) 12/25/23 20:10 Ur Drug Screen Comment CUTOFF CONC BELOW: 12/25/23 20:10 - Procedures Procedures: Procedures (02/05/21) ESOPHAGOGASTRODUODENOSCOPY [EGD] W/CLOSED BIOPSY (11/29/13) INSERTION OF INFUSION DEV INTO SUP VENA CAVA, PERC APPROACH (12/28/17) MANUAL RUPT JOINT ADHES (04/27/14) TOTAL KNEE REPLACEMENT (06/16/14) Sepsis Event Note (H) - Evaluation Current Stage of Sepsis: Ruled out
[2023-12-31] MEDS: METOPROLOL TARTRATE 50 MG TABLET PO SCH (14:27)
[2023-12-31] MEDS: ALPRAZolam 0.25 MG TABLET PO PRN (16:24)
[2023-12-31] MEDS: MELATONIN 3 MG TABLET PO PRN (23:42)
[2024-01-01 05:58] LABS: HCT - HEMATOCRIT 40.3 % (37.0-47.0); HGB - HEMOGLOBIN 12.6 g/dL (12.0-16.0); MEAN CORPUSCULAR HEMOGLOBIN 26.4 pg (27.0-31.0); MEAN CORPUSCULAR HGB CONC 31.3 g/dL (32.0-36.0); MEAN CORPUSCULAR VOLUME 84.5 fL (81.0-99.0); MEAN PLATELET VOLUME 10.1 fL (7.9-10.8); RED BLOOD COUNT 4.77 10^6/uL (4.20-5.40); RED CELL DISTRIBUTION WIDTH 17.1 % (12.0-15.0)
[2024-01-01 06:06] LABS: CALCIUM 9.2 mg/dL (8.5-10.3); CREATININE 1.1 mg/dL (0.6-1.3)
[2024-01-01] MEDS: HYDROcod/ACETAM 5/325 MG TABLET PO ONE (11:54)
--- NOTE | 2024-01-01 16:51 | DISCHARGE SUMMARY ---
Discharge Summary Admit Date: 12/25/23 Discharge Date: 01/01/24 Discharging Provider: Oren Gordon MD Code Status: Attempt Resuscitation Condition at Discharge: Stable Discharge Disposition: 01 Home, Self Care Discharge Facility Name: [facility] - DIAGNOSES Admission Diagnoses: (1) Anaphylactic reaction to bee sting (2) Acute on chronic systolic heart failure (3) Acute respiratory failure with hypoxemia (4) COPD (chronic obstructive pulmonary disease) (5) Hypokalemia (6) Chronic atrial fibrillation (7) Diabetes mellitus type 2 in obese (8) Hx of coronary artery disease (9) Hypertension (10) Sleep apnea Discharge Diagnoses with Status of Each Condition: (1) Acute respiratory failure with hypoxemia Assessment/Plan: Resolved. Patient is near her baseline. (2) Anaphylactic reaction to bee sting Conclusion/Plan: Anaphylaxis appears to have resolved. Continue to monitor (3) Acute on chronic systolic heart failure Conclusion/Plan: Resolved. She is near her baseline. Transthoracic echocardiogram performed in January 2023 demonstrated LVEF was 30 to 35%. (4) COPD (chronic obstructive pulmonary disease) with hypoxia Conclusion/Plan: Continue pulmicort nebulizer treatments as an outpatient. (5) Hypokalemia Conclusion/Plan: Resolved. (6) Chronic atrial fibrillation Conclusion/Plan: Continue apixaban and metorpolol (7) Diabetes mellitus type 2 in obese Conclusion/Plan: Continue glipizade and E<pagliflozin (8) Hx of coronary artery disease Conclusion/Plan: Continue aspirin 81 mg. (9) Hypertension Conclusion/Plan: Metoprolol 50 mg daily. (10) Sleep apnea Conclusion/Plan: Patient cannot tolerate CPAP and is not using CPAP at home. (11) Headache Conclusion/Plan: Resolved but has frequent headache. Recommend discussing further work-up with primary care provider. (12) C. Diff Colitis Conclusion/Plan: Continue vancomycin 125 mg po four times a day for 8 more days to complete 10 course of antibiotics. - HPI History of Present Illness: Ester Benavides is a 58yo with a history of COPD previously on 2 L oxygen (unclear if still using), tobacco abuse, CAD, hypertension, hyperlipidemia, atrial fibrillation, type 2 diabetes, depression, chronic back pain and history of anaphylaxis to bee stings who presented with a bee sting today. Today she was stung by bee on one of the fingers on her right hand and immediately started to feel her lips and throat swelling. She carried 2 EpiPen's with her and she used both of them after contacting EMS. When EMS arrived she continued to have progressive lip, tongue and laryngeal edema. Due to the rapid progression and development of impending respiratory failure, she was intubated by EMS and given Solu-Medrol, Benadryl and an additional EpiPen. On arrival to the emergency department she was afebrile and was never hypotensive. She was saturating 90 to 95% on the mechanical ventilator at 50% FiO2. Her chest x-ray showed findings concerning for pulmonary edema and she was given 80 mg of IV Lasix. An ABG several hours after presentation showed relatively unremarkable acid-base status however her pO2 was 67 on 50% FiO2. She was sedated on propofol but alert and interactive. Due to her presentation and continued hypoxia it was felt that it was unsafe to extubate in the emergency department thus she was admitted for further care. - HOSPITAL COURSE Hospital Course: Ester Benavides was intubated in the the field by EMS service. En route to the hospital, patient received IV Solu-Medrol Benadryl and IM epinephrine. She was admitted to the critical care unit on December 24, 2022 with acute respiratory failure for acute respiratory failure with hypoxia. Chest x-ray performed to the emergency room revealed pulmonary edema and she was given 80 mg of IV Lasix in the emergency department. Her outpatient amiodarone and apixiban for atrial fibrillation was withheld upon admission. On December 26, 2023 treatment continued with mechanical ventilation and diuresis with Lasix.Symptoms and sequelae of anaphylaxis had resolved. Treatment continued with IV corticosteroids and bronchodilators for COPD exacerbation. Unfractionated heparin was initiated for anticoagulation. Oxygen requirement remained elevated at 70% FiO2 to maintain oxygen saturation greater than 88%. Patient appeared to respond to PEEP and PEEP was inceased as tolerated to a maximum of 15 cm of water and over the course of the next several days the FiO2 was wean to 40% and the PEEP to 8 cm of water. Ceftriaxone and metronidazole was initiated on December 26 empirically due to high oxygen requirement and the possibility of aspiration during her initial presentation. Patient was extubated on December 29, 2023. Postextubation patient complained of frequent loose stool and C. difficile PCR was positive. Patient was diagnosed with severe C. difficile colitis given the fact that her white blood cell count increased to 17.9 K. Treatment was init iated with vancomycin 125 mg 4 times a day. Empiric antibiotics were discontinued. She has a history of chronic headache and require treatment with [place] with good effect post extubation. She reports prior to admission she stubbed her toe. X-ray of toe during admission reveald comminuted fracture to the base of the first proximal phalanx. The fracture is nondisplaced. WBC count has decreased to 15 and she remains hemodynamically stable. She is discharged to home in stable condition. - ALLERGIES Allergies/Adverse Reactions: Allergies Allergy/AdvReac Type Severity Reaction Status Date / Time codeine [Codeine] Allergy Severe Swelling/Hi Verified 07/25/23 14:54 ves erythromycin base Allergy Severe Anaphylaxis Verified 07/25/23 14:54 [Erythromycin Base] gabapentin Allergy Severe Anaphylaxis Verified 07/25/23 14:54 Latex, Natural Rubber Allergy Severe Blisters Verified 07/25/23 14:54 pamabrom [From Midol] Allergy Severe Respiratory Verified 07/25/23 14:54 pyrilamine maleate * Allergy Severe Respiratory Verified 07/25/23 14:54 [From Midol] shellfish derived Allergy Severe Anaphylaxis Verified 07/25/23 14:54 venom-honey bee Allergy Severe Anaphylaxis Verified 07/25/23 14:54 [bee venom (honey bee)] chlorhexidine Allergy Intermediate Rash Verified 07/25/23 14:54 morphine Allergy Respiratory Verified 07/25/23 14:54 ondansetron Allergy Respiratory Verified 07/25/23 14:54 piperacillin [From Zosyn] AdvReac Rash Verified 07/25/23 14:54 tazobactam [From Zosyn] AdvReac Rash Verified 07/25/23 14:54 - MEDICATIONS Home Medications: Ambulatory Orders Medication Instructions Recorded Confirmed Furosemide 80 mg PO DAILY 09/07/20 12/26/23 Apixaban [Eliquis] 5 mg PO BID 10/24/20 12/26/23 Albuterol Sulfate [Proair Hfa 2 puffs INH Q4H PRN #1 inh 10/29/20 12/26/23 Inhaler] Amiodarone [Pacerone] 100 mg PO DAILY 02/04/21 12/26/23 EPINEPHrine [Epinephrine] 0.3 mg IM PRN PRN 12/11/21 12/26/23 Cetirizine [ZyrTEC] 10 mg PO DAILY PRN 02/08/22 12/26/23 Fluticasone [Flonase] 1 sprays CLARISA BID 02/08/22 12/26/23 Montelukast [Singulair] 10 mg PO QPM 02/08/22 12/26/23 Budesonide [Pulmicort] 0.5 mg INH BID #60 ea 02/19/22 12/26/23 Multivitamin [Theragran] 1 tab PO DAILYWM tab 02/19/22 12/26/23 Ascorbic Acid [Vitamin C] 1,000 mg PO DAILY 07/20/22 12/26/23 Empagliflozin [Jardiance] 10 mg PO DAILY 12/26/23 12/26/23 Metoprolol Succinate [Toprol Xl] 25 mg PO DAILY 12/26/23 12/26/23 Mexiletine HCl 150 mg PO Q12H 12/26/23 12/26/23 Pantoprazole [Protonix] 40 mg PO BID 12/26/23 12/26/23 Promethazine [Phenergan] 25 mg PO DAILY PRN 12/26/23 12/26/23 Saccharomyces Boulardii [Florastor] 250 mg PO BID 12/26/23 12/26/23 Sacubitril/Valsartan [Entresto 24 1 tab PO BID 12/26/23 12/26/23 mg-26 mg Tablet] Vancomycin [Vancocin] 125 mg PO QID 8 Days #32 cap 01/01/24 - PHYSICAL EXAM AT DISCHARGE General Appearance: positive: No acute distress, Alert Eyes Bilateral: positive: Conjunctivae nml Neck: positive: Thyroid nml, No JVD Respiratory: positive: Other (Good air exchange in all lung mathews. 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 - TIME SPENT Time Spent in Discharge (Minutes): 40
--- NOTE | 2024-01-01 16:51 | Discharge Plan ---
Discharge Plan Problem Reviewed?: Yes Disposition: Home, Self Care Condition: Stable Prescriptions: Vancomycin [Vancocin] 125 mg PO QID 8 Days #32 cap Diet: Diabetic Activity Restrictions: Activity as Tolerated Shower Restrictions: No Driving Restrictions: Yes Assistance Devices: Wheelchair, Walker, Cane Weight Bearing: Full Weight Instruction Topics: ED Bite Sting Insect Gen Allergic React Health Concerns: Per Dr. Jayce Castaneda's history and physical: Ester Benavides is a 58yo with a history of COPD previously on 2 L oxygen (unclear if still using), tobacco abuse, CAD, hypertension, hyperlipidemia, atrial fibrillation, type 2 diabetes, depression, chronic back pain and history of anaphylaxis to bee stings who presented with a bee sting today. Today she was stung by bee on one of the fingers on her right hand and immediately started to feel her lips and throat swelling. She carried 2 EpiPen's with her and she used both of them after contacting EMS. When EMS arrived she continued to have progressive lip, tongue and laryngeal edema. Due to the rapid progression and development of impending respiratory failure, she was intubated by EMS and given Solu-Medrol, Benadryl and an additional EpiPen. On arrival to the emergency department she was afebrile and was never hypotensive. She was saturating 90 to 95% on the mechanical ventilator at 50% FiO2. Her chest x-ray showed findings concerning for pulmonary edema and she was given 80 mg of IV Lasix. An ABG several hours after presentation showed relatively unremarkable acid-base status however her pO2 was 67 on 50% FiO2. She was sedated on propofol but alert and interactive. Due to her presentation and continued hypoxia it was felt that it was unsafe to extubate in the emergency department thus she was admitted for further care. Hospital Course: Ester Benavides was intubated in the the field by EMS service. En route to the hospital, patient received IV Solu-Medrol Benadryl and IM epinephrine. She was admitted to the critical care unit on December 24, 2022 with acute respiratory failure for acute respiratory failure with hypoxia. Chest x-ray performed to the emergency room revealed pulmonary edema and she was given 80 mg of IV Lasix in the emergency department. Her outpatient amiodarone and apixiban for atrial fibrillation was withheld upon admission. On December 26, 2023 treatment continued with mechanical ventilation and diuresis with Lasix.Symptoms and sequelae of anaphylaxis had resolved. Treatment continued with IV corticosteroids and bronchodilators for COPD exacerbation. Unfractionated heparin was initiated for anticoagulation. Oxygen requirement remained elevated at 70% FiO2 to maintain oxygen saturation greater than 88%. Patient appeared to respond to PEEP and PEEP was inceased as tolerated to a maximum of 15 cm of water and over the course of the next several days the FiO2 was wean to 40% and the PEEP to 8 cm of water. Ceftriaxone and metronidazole was initiated on December 26 empirically due to high oxygen requirement and the possibility of aspiration during her initial presentation. Patient was extubated on December 29, 2023. Postextubation patient complained of frequent loose stool and C. difficile PCR was positive. Patient was diagnosed with severe C. difficile colitis given the fact that her white blood cell count increased to 17.9 K. Treatment was initiated with vancomycin 125 mg 4 times a day. Empiric antibiotics were discontinued. She has a history of chronic headache and require treatment with [place] with good effect post extubation. She reports prior to admission she stubbed her toe. X-ray of toe during admission reveald comminuted fracture to the base of the first proximal phalanx. The fracture is nondisplaced. WBC count has decreased to 15 and she remains hemodynamically stable. She is discharged to home in stable condition. Plan of Treatment: 1. Take all medications as prescribed. 2. Please follow-up with your primary care provider Rohini Ceron) in 2-4 weeks. 3. Continue vancomycin 125 mg four times a day for 8 days. 4. Please ice left great toe for 20 minutes 2-3 times a day. Recommend taping the great to the adjacent toe. 5. Seek care through your primary care provider, acute care clinic or emergency room for fever greater than 101.5 degrees F, severe abdominal pain, or if loose stool does not resolve after course of vancomycin. Care Goals: To return to baseline prior to hospitalization Assessment: (1) Acute respiratory failure with hypoxemia Assessment/Plan: Resolved. Patient is near her baseline. (2) Anaphylactic reaction to bee sting Conclusion/Plan: Anaphylaxis appears to have resolved. Continue to monitor (3) Acute on chronic systolic heart failure Conclusion/Plan: Resolved. She is near her baseline. Transthoracic echocardiogram performed in January 2023 demonstrated LVEF was 30 to 35%. (4) COPD (chronic obstructive pulmonary disease) with hypoxia Conclusion/Plan: Continue pulmicort nebulizer treatments as an outpatient. (5) Hypokalemia Conclusion/Plan: Resolved. (6) Chronic atrial fibrillation Conclusion/Plan: Continue apixaban and metorpolol (7) Diabetes mellitus type 2 in obese Conclusion/Plan: Continue glipizade and E<pagliflozin (8) Hx of coronary artery disease Conclusion/Plan: Continue aspirin 81 mg. (9) Hypertension Conclusion/Plan: Metoprolol 50 mg daily. (10) Sleep apnea Conclusion/Plan: Patient cannot tolerate CPAP and is not using CPAP at home. (11) Headache Conclusion/Plan: Resolved but has frequent headache. Recommend discussing further work-up with primary care provider. (12) C. Diff Colitis Conclusion/Plan: Continue vancomycin 125 mg po four times a day for 8 more days to complete 10 course of antibiotics. No Smoking: If you smoke, Please STOP! Call for help. Follow-up with: Rohini Ceron PA-C [Provider Admit Priv/Credential] -
[2024-01-01] MEDS ORDERED: ZINC OXIDE 20% OINT 30 GM TUBE TOP PRN (16:56)
--- NOTE | 2024-01-01 17:08 | XRAY Report ---
PROCEDURE: Toe(s) 2+V LT INDICATIONS: Left great pain s/p axial loading TECHNIQUE: 3 views of the toe(s) were obtained. COMPARISON: None FINDINGS: Bones: Nondisplaced longitudinal fracture through the base of the first distal phalanx with intra-art icular involvement of the first interphalangeal joint. Soft tissues: No suspicious soft tissue densities. IMPRESSION: Comminuted fractures to the base of the first proximal phalanx Reviewed by: David Garcia MD on 01/01/2024 4:07 PM JORGE L Approved by: David Garcia MD on 01/01/2024 4:07 PM JORGE L Station ID: [id number]
[2024-01-01 18:10] VITALS: BP 126/68; O2SAT 91
== END 2024-01-01 18:35 | disposition home or self-care (01) | DRG 207 ==
LOC: EDUNIT# → ED 11:31 → ICU 16:58 → MS2 12-30 18:59
PROVIDERS: ADMIT Hospitalist; ATTEND Internal Medicine
PROC: 5A1955Z Respiratory Ventilation, Greater than 96 Consecutive Hours (ICD-10-PCS; principal; 2023-12-25)
DX: J96.01 Acute respiratory failure with hypoxia (principal); T78.3XXA Angioneurotic edema, initial encounter; R06.02 Shortness of breath; I50.23 Acute on chronic systolic (congestive) heart failure; I50.9 Heart failure, unspecified; I48.20 Chronic atrial fibrillation, unspecified; E78.00 Pure hypercholesterolemia, unspecified; J43.9 Emphysema, unspecified; J44.1 Chronic obstructive pulmonary disease with (acute) exacerbation; F41.9 Anxiety disorder, unspecified; F17.200 Nicotine dependence, unspecified, uncomplicated; A04.72 Enterocolitis due to Clostridium difficile, not specified as recurrent; T63.441A Toxic effect of venom of bees, accidental (unintentional), initial encounter; E87.6 Hypokalemia; I11.0 Hypertensive heart disease with heart failure; E66.9 Obesity, unspecified; Z68.38 Body mass index [BMI] 38.0-38.9, adult; I25.10 Atherosclerotic heart disease of native coronary artery without angina pectoris; G47.30 Sleep apnea, unspecified; Z79.82 Long term (current) use of aspirin; R51.9 Headache, unspecified; S92.415A Nondisplaced fracture of proximal phalanx of left great toe, initial encounter for closed fracture; X58.XXXA Exposure to other specified factors, initial encounter; F32.A Depression, unspecified; I25.2 Old myocardial infarction; Z87.891 Personal history of nicotine dependence
CPT/HCPCS: 36415; 36600; 51702; 71045; 73660; 80048; 80053; 80076; 80306; 82272; 82330; 82803; 83036; 83690; 83735; 83880; 84100; 84132; 84134; 84478; 84484; 85025; 85027; 85730; 87070; 87150; 87205; 87493; 87633; 93005; 94002; 94003; 94640; 96365; 96366; 96367; 96375; 99284; 99285; A9270; J1200; J1650; J1815; J2060; J3590; J7626; J8499; 85014; 85018; 85049

== ENCOUNTER 2024-10-10 00:21 | Inpatient (IN) ==
--- NOTE | 2024-10-10 00:38 | ED Physician Documentation ---
History of Present Illness Stated complaint Stated Complaint: RESP DISTRESS Chief complaint Chief Complaint: Resp History obtained from History obtained from: Patient Additonal information Additional information: 59yF with pmh afib on eliquis, pacemaker, zacarias disease, copd, chf on entresto and 80mg lasix, recent pneumonia last week p/w chest pain and shortness of breath starting tonight, prompting ems call. on arrival they found her to be only able to speak in 2-3 word sentences, and with o2 sat 83% RA, improving to mid 90s on bipap and s/p sublingual nitro. denies fever/chills, cough, n/v diaphoresis. Meds/Allgy Home Medications Ambulatory Orders Medication Instructions Recorded Confirmed epinephrine 0.3 mg/0.3 mL 0.3 mg IM PRN PRN Anaphylaxi s 12/11/21 10/10/24 injection, auto-injector cetirizine 10 mg tablet 10 mg PO DAILY PRN Allergy S ymptoms 02/08/22 10/10/24 fluticasone propionate 50 1 sprays intranasal BID 01/1410/10/24 mcg/actuation nasal spray,suspension ascorbic acid (vitamin C) 1,000 mg 1,000 mg PO DAILY 0 07/20/22 10/10/24 tablet pantoprazole 40 mg tablet,delayed 40 mg PO BID 4 10/10/24 release sacubitril 24 mg-valsartan 26 mg 1 tab PO BID 12/26/23 10/10/24 tablet (Entresto) Permanent Disabled Placard 03/21/24 10/10/24 albuterol sulfate 2.5 mg/3 mL 2.5 mg inhalation Q6H FL N soa 03/21/24 10/10/24 (0.083 %) solution for nebulization amiodarone 100 mg tablet 100 mg PO QDAY 03/21/2409/13 blood sugar diagnostic (Accu-Chek 03/21/24 10/10/24 Guide test strips) blood-glucose meter (Accu-Chek 03/21/24 10/10/24 Guide Me Glucose Meter) diazepam 5 mg tablet 5 mg PO BID PRN anxiety 12/0510/10/24 lancets (Accu-Chek Softclix #100 ea 03/21/24 10/10/24 Lancets) methocarbamol 500 mg tablet 1 mg PO TID PRN spasms 12/0510/10/24 mexiletine 150 mg capsule 150 mg PO TID 03/21/2410/10 multivitamin with minerals-folic 1 tab PO QDAY 4 10/10/24 acid 0.4 mg tablet (One-A-Day Women's 50 Plus) promethazine 25 mg tablet 25 mg PO Q6H NV 03/21/24 furosemide 80 mg tablet See Rx Instructions .Route 0 05/21/24 10/10/24 .COMPLEX #180 tabs metoprolol succinate 25 mg 25 mg PO QDAY 05/28/2409/13 tablet,extended release 24 hr empagliflozin 10 mg tablet 10 mg PO QDAY 05/30/2409/13 (Jardiance) potassium chloride 40 mEq/15 mL 40 meq (15 mL) PO QDAY #1,350 mL 05/30/24 10/10/24 oral liquid budesonide 0.5 mg/2 mL suspension See Rx Instructions .Route 07/02/24 10/10/24 for nebulization .COMPLEX #60 mL baclofen 10 mg tablet 10 mg PO TID #15 tabs 10/10/24 methocarbamol 500 mg tablet 500 mg PO TID PRN Pain #90 tabs 07/11/24 10/10/24 montelukast 10 mg tablet See Rx Instructions .Route 0 07/16/24 10/10/24 .COMPLEX #90 tabs apixaban 5 mg tablet (Eliquis) See Rx Instructions .[place] 07/25/24 10/10/24 .COMPLEX #180 tabs albuterol sulfate 90 mcg/actuation 2 puff inhalation Q 4H PRN Wheezing 09/18/24 10/10/24 aerosol inhaler (ProAir HFA) #18 grams Allergies Allergies Allergy/AdvReac Type Severity Reaction Status Date / Time codeine (Codeine) Allergy Severe Swelling/Hi Verified 10/10/24 00:38 ves erythromycin base Allergy Severe Anaphylaxis Verified 10/10/24 00:38 (Erythromycin Base) gabapentin Allergy Severe Anaphylaxis Verified 10/10/24 00:38 Latex, Natural Rubber Allergy Severe Blisters Verified 10/10/24 00:38 pamabrom (From Midol) Allergy Severe Respiratory Verified 10/10/24 00:38 pyrilamine maleate * (From Allergy Severe Respiratory Verified 10/10/24 00:38 Midol) shellfish derived Allergy Severe Anaphylaxis Verified 10/10/24 00:38 venom-honey bee (bee venom Allergy Severe Anaphylaxis Verified 10/10/24 00:38 (honey bee)) chlorhexidine Allergy Intermediate Rash Verified 10/10/24 00:38 acetaminophen Allergy Unknown Verified 10/10/24 00:38 doxycycline Allergy gastrointes Verified 10/10/24 00:38 tinal/vomit ing morphine Allergy Respiratory Verified 10/10/24 00:38 ondansetron Allergy Respiratory Verified 10/10/24 00:38 piperacillin (From Zosyn) AdvReac Rash Verified 10/10/24 00:38 tazobactam (From Zosyn) AdvReac Rash Verified 10/10/24 00:38 PFSH Active Problems All Active Problems (Updated 12/31/23 @ 16:02 by Oren Gordon MD) Acute exacerbation of CHF (congestive heart failure) (Acute) UTI (urinary tract infection) (Acute) Hypokalemia (Acute) Anaphylactic reaction to bee sting (Acute) Acute bronchitis due to human metapneumovirus (Acute) Acute on chronic systolic heart failure (Acute) Secondary bacterial pneumonia (Acute) Chronic systolic congestive heart failure (Acute) Acute renal failure (Acute) Dehydration (Acute) Hypoxia (Acute) RSV infection (Acute) Acute on chronic kidney failure (Acute) Acute on chronic kidney failure (Acute) Bilateral arm pain (Acute) Hypotension (Chronic) Morbid obesity with BMI of 45.0-49.9, adult (Chronic) Hx of coronary artery disease (Chronic) Hx of cardiac arrhythmia (Chronic) Systolic heart failure (Chronic) Chronic HFrEF (heart failure with reduced ejection fraction) (Chronic) Sleep apnea (Chronic) History of latent tuberculosis (Chronic) Tachypnea (Chronic) Dyspnea on minimal exertion (Chronic) Nonproductive cough (Chronic) COPD (chronic obstructive pulmonary disease) (Chronic) Tobacco dependence in remission (Chronic) Depressive disorder (Chronic) Diabetes mellitus type 2 in obese (Chronic) Insomnia (Chronic) Hypertension (Chronic) Chronic atrial fibrillation (Chronic) Cardiomyopathy (Chronic) Caffeine dependence (Chronic) Diastolic congestive heart failure with preserved left ventricular function, NYHA class 2 (Chronic) Arrhythmia (Chronic) Drug-induced hyperglycemia (Chronic) Cervical radiculopathy (Chronic) Chronic pain (Chronic) Status post left knee replacement (Chronic) Medical History Medical History (Updated 10/10/24 @ 00:40 by Chaya Gonzalez MD) COPD exacerbation Respiratory failure with hypoxia Acute respiratory failure with hypoxemia Social History Social History (Updated 05/30/24 @ 09:53 by Fatou Spring, RN, BSN) Smoking Status: Current every day smoker If you are a former smoker, when did you quit? (Date/Year): 2 months ago Number of Years Smoked: 50 How many cigarettes a day do you smoke? (20 cigarettes=1 Pk): 4 Do you dip or chew tobacco?: No Patient requests smoking cessation consult: No Initiate information on smoking cessation: No Living arrangement: At home Living Condition: With family Relationship: Level: Independent Do you feel safe in your home environment?: Yes Suffered physical, verbal, emotional, or financial abuse?: No History of Abuse: No ETOH Use: None Frequency: Weekly Substance Use: denies use POLST Patient has POLST: No POLST Status: Full Code Exam Exam Vital Signs: Vital Signs x48h Temp Pulse Resp BP Pulse Ox 10/10/24 06:30 37 C 71 23 111/72 10/10/24 06:00 72 23 119/93 H 96 10/10/24 05:57 82 10/10/24 05:30 72 22 137/89 H 94 10/10/24 05:16 66 10/10/24 05:00 71 23 119/89 96 10/10/24 04:30 79 22 119/73 96 10/10/24 04:01 27 H 108/55 L 91 L 10/10/24 03:30 24 105/54 L 96 10/10/24 03:00 72 25 H 107/78 96 10/10/24 02:32 26 H 95 10/10/24 02:30 36.6 C 72 40 H 115/67 90 L 10/10/24 02:25 72 18 108/63 92 10/10/24 02:08 63 10/10/24 01:47 72 26 H 107/59 L 92 10/10/24 01:25 96 10/10/24 01:17 82 22 113/45 L 90 L 10/10/24 01:15 72 24 113/54 L 97 10/10/24 01:08 83 24 129/87 96 10/10/24 00:53 77 27 H 100/67 99 10/10/24 00:39 69 10/10/24 00:38 113 H 29 H 98/55 L 90 L 10/10/24 00:21 36.3 C L 64 30 H 99/51 L 97 Constitutional patient on bipap with minimal to mild increased work of breathing. large body habitus HENMT normocephalic, head/scalp atraumatic and oropharynx normal Eyes PERRL and EOMs intact bilaterally Chest inspection of chest normal Respiratory breath sounds equal bilaterally BL inspiratory and expiratory crackles Cardiovascular normal heart rate noted and regular rhythm noted Gastrointestinal abdomen normal to inspection, abdomen soft to palpation and nontender to palpation Results Vitals Vitals: Vital Signs - 24 hr 10/10/24 00:21 10/10/24 00:38 10/10/24 00:39 Temperature 36.3 C L Temperature Source Temporal Artery Scan Pulse Rate 64 113 H 69 Respiratory Rate 30 H 29 H Blood Pressure 99/51 L 98/55 L O2 Saturation 97 90 L Oxygen Delivery Method O2 Source BIPAP CPAP Fraction of Inspired Oxygen (FIO2) 30 FiO2 (%) 30 Pain Intensity 8 10/10/24 00:53 10/10/24 01:08 10/10/24 01:15 Temperature Temperature Source Pulse Rate 77 83 72 Respiratory Rate 27 H 24 24 Blood Pressure 100/67 129/87 113/54 L O2 Saturation 99 96 97 Oxygen Delivery Method O2 Source BIPAP BIPAP BIPAP Fraction of Inspired Oxygen (FIO2) FiO2 (%) Pain Intensity 10/10/24 01:17 10/10/24 01:21 10/10/24 01:25 Temperature Temperature Source Pulse Rate 82 Respiratory Rate 22 Blood Pressure 113/45 L O2 Saturation 90 L 96 Oxygen Delivery Method Bi-pap O2 Source BIPAP BIPAP Fraction of Inspired Oxygen (FIO2) FiO2 (%) Pain Intensity 10/10/24 01:47 10/10/24 02:08 10/10/24 02:25 Temperature Temperature Source Pulse Rate 72 63 72 Respiratory Rate 26 H 18 Blood Pressure 107/59 L 108/63 O2 Saturation 92 92 Oxygen Delivery Method O2 Source BIPAP BIPAP Fraction of Inspired Oxygen (FIO2) 30 FiO2 (%) 30 30 Pain Intensity 10/10/24 02:30 10/10/24 02:32 10/10/24 03:00 Temperature 36.6 C Temperature Source Tympanic Pulse Rate 72 72 Respiratory Rate 40 H 26 H 25 H Blood Pressure 115/67 107/78 O2 Saturation 90 L 95 96 Oxygen Delivery Method O2 Source BIPAP Room air BIPAP Fraction of Inspired Oxygen (FIO2) FiO2 (%) 25 40 40 Pain Intensity 10/10/24 03:30 10/10/24 04:01 10/10/24 04:30 Temperature Temperature Source Pulse Rate 79 Respiratory Rate 24 27 H 22 Blood Pressure 105/54 L 108/55 L 119/73 O2 Saturation 96 91 L 96 Oxygen Delivery Method O2 Source BIPAP BIPAP BIPAP Fraction of Inspired Oxygen (FIO2) FiO2 (%) 40 40 40 Pain Intensity 10/10/24 05:00 10/10/24 05:16 10/10/24 05:30 Temperature Temperature Source Pulse Rate 71 66 72 Respiratory Rate 23 22 Blood Pressure 119/89 137/89 H O2 Saturation 96 94 Oxygen Delivery Method O2 Source BIPAP BIPAP Fraction of Inspired Oxygen (FIO2) 30 FiO2 (%) 40 Pain Intensity 10/10/24 05:32 10/10/24 05:57 10/10/24 06:00 Temperature Temperature Source Pulse Rate 82 72 Respiratory Rate 23 Blood Pressure 119/93 H O2 Saturation 96 Oxygen Delivery Method Bi-pap O2 Source BIPAP Fraction of Inspired Oxygen (FIO2) 40 FiO2 (%) Pain Intensity 10/10/24 06:30 Temperature 37 C Temperature Source Tympanic Pulse Rate 71 Respiratory Rate 23 Blood Pressure 111/72 O2 Saturation Oxygen Delivery Method O2 Source BIPAP Fraction of Inspired Oxygen (FIO2) FiO2 (%) 40 Pain Intensity 2 Oxygen O2 Source [With Activity] Room air O2 Source BIPAP EKG (time done) 0108: EKG releavant findings:: EKG personally interpreted by author of this note. Relevant findings are: Rate: Rate (enter#) (72) Rhythm: Paced Labs Labs: Laboratory Tests 10/10/24 10/10/24 10/10/24 00:30 00:44 03:37 WBC 9.6 RBC 4.71 Hgb 11.8 L Hct 40.2 MCV 85.4 MCH 25.1 L MCHC 29.4 L RDW 18.6 H Plt Count 254 MPV 9.4 Neut # (Auto) 6.1 Lymph # (Auto) 2.4 Ponce # (Auto) 0.7 Eos # (Auto) 0.2 Baso # (Auto) 0.0 Absolute Nucleated RBC 0.00 Nucleated RBC % 0.0 VBG pH 7.508 H VBG pCO2 49.0 VBG pO2 73.7 H VBG HCO3 39.2 H VBG Total CO2 40.7 H VBG O2 Saturation 97.0 H VBG Base Excess 16.0 H Sodium 142 Potassium 4.6 H Chloride 103 Carbon Dioxide 36 H Anion Gap 3.0 L BUN 13 Creatinine 0.9 Estimated GFR (MDRD) 64 L Glucose 101 Lactic Acid 0.8 Calcium 8.9 Total Bilirubin 0.3 AST 13 ALT 17 Alkaline Phosphatase 87 Troponin I High Sens 14.9 H* 12.9 B-Natriuretic Peptide 199 H Total Protein 5.9 L Albumin 3.3 Globulin 2.6 Albumin/Globulin Ratio 1.3 Lipase 22 Nasal Adenovirus (PCR) NOT DETECTED Nasal B. parapertussis DNA (PCR) NOT DETECTED Nasal Coronavir 229E PCR NOT DETECTED Nasal Coronavir HKU1 PCR NOT DETECTED Nasal Coronavir NL63 PCR NOT DETECTED Nasal Coronavir OC43 PCR NOT DETECTED Nasal Enterovir/Rhinovir PCR NOT DETECTED Nasal Influenza B PCR NOT DETECTED Nasal Influenza A PCR NOT DETECTED Nasal Parainfluen 1 PCR DETECTED A Nasal Parainfluen 2 PCR NOT DETECTED Nasal Parainfluen 3 PCR NOT DETECTED Nasal Parainfluen 4 PCR NOT DETECTED Nasal RSV (PCR) NOT DETECTED Nasal B.pertussis DNA PCR NOT DETECTED Nasal C.pneumoniae (PCR) NOT DETECTED Azar Human Metapneumo PCR NOT DETECTED Nasal M.pneumoniae (PCR) NOT DETECTED Nasal SARS-CoV-2 (PCR) NOT DETECTED PD Medical Decision Making ED course ED course: 59yF presents with what appears to be acute chf exacerbation, responding well to SL nitro and bipap en route. patient is improved in the ED and will benefit from continued monitoring and hospitalization. patient endorsed to Dr. Finch at 7am shift change awaiting bed availability. Discharge Plan Discharge Condition: Fair Clinical Impression: Hypoxia, Acute exacerbation of CHF (congestive heart failure) Prescriptions: No Action furosemide 80 mg tablet See Rx Instructions .ROUTE .COMPLEX Qty: 180 0RF Dose Instruction: Take 1 tablet by mouth twice daily Rx Instructions: Take 1 tablet by mouth twice daily budesonide 0.5 mg/2 mL suspension for nebulization See Rx Instructions .ROUTE .COMPLEX Qty: 60 3RF Dose Instruction: USE 1 VIAL IN NEBULIZER TWICE DAILY. RINSE MOUTH AFTER USE Rx Instructions: USE 1 VIAL IN NEBULIZER TWICE DAILY. RINSE MOUTH AFTER USE montelukast 10 mg tablet See Rx Instructions .ROUTE .COMPLEX Qty: 90 0RF Dose Instruction: TAKE 1 TABLET BY MOUTH ONCE DAILY NEEDED FOR ALLERGIES Rx Instructions: TAKE 1 TABLET BY MOUTH ONCE DAILY NEEDED FOR ALLERGIES Eliquis 5 mg tablet See Rx Instructions .ROUTE .COMPLEX Qty: 180 3RF Dose Instruction: Take 1 tablet by mouth twice daily Rx Instructions: Take 1 tablet by mouth twice daily albuterol sulfate [ProAir HFA] 90 mcg/actuation HFA aerosol inhaler 2 puff inhalation Q4H PRN (Reason: Wheezing) Qty: 18 12RF epinephrine 0.3 MG/0.3 ML auto-injector 0.3 mg IM PRN PRN (Reason: Anaphylaxis) Patient Comments: INJECT CONTENTS OF 1 PEN NEEDED FOR SEVERE ALLERGIC REACTION ACCORDING TO [employer] DIRECTIONS. cetirizine 10 MG tablet 10 mg PO DAILY PRN (Reason: Allergy Symptoms) fluticasone propionate 120 SPRAYS spray,suspension 1 sprays intranasal BID ascorbic acid (vitamin C) 1,000 MG tablet 1,000 mg PO DAILY pantoprazole 40 MG tablet,delayed release (DR/EC) 40 mg PO BID Entresto 1 EACH tablet 1 tab PO BID mexiletine 150 mg capsule 150 mg PO TID promethazine 25 mg tablet 25 mg PO Q6H baclofen 10 mg tablet 10 mg PO TID Qty: 15 0RF albuterol sulfate 2.5 mg /3 mL (0.083 %) solution for nebulization 2.5 mg inhalation Q6H PRN (Reason: soa) Rx Instructions: USE 1 VIAL IN NEBULIZER FOUR TIMES DAILY NEEDED FOR COUGHING, WHEEZING OR SHORTNESS OF BREATH amiodarone 100 mg tablet 100 mg PO QDAY methocarbamol 500 mg tablet 1 mg PO TID PRN (Reason: spasms) Rx Instructions: Take 1 tablet by mouth three times a day as needed for muscle spasm multivit with min-folic acid [One-A-Day Women's 50 Plus] 0.4 mg tablet 1 tab PO QDAY diazepam 5 mg tablet 5 mg PO BID PRN (Reason: anxiety) (DME) Accu-Chek Guide test strips Strip See Rx Instructions .Route Rx Instructions: As directed (DME) blood-glucose meter [Accu-Chek Guide Me Glucose Mtr] Misc See Rx Instructions .Route Rx Instructions: As directed (DME) Permanent Disabled Placard Misc See Rx Instructions .Route Rx Instructions: As directed (DME) lancets [Accu-Chek Softclix Lancets] [facility] See Rx Instructions .ROUTE .MEDSUPPLY Qty: 100 Patient Comments: USE 1 LANCET TO CHECK BLOOD GLUCOSE ONCE DAILY Rx Instructions: As directed metoprolol succinate 25 mg tablet extended release 24 hr 25 mg PO QDAY Rx Instructions: Take 1 tablet by mouth once a day Jardiance 10 mg tablet 10 mg PO QDAY potassium chloride 40 mEq/15 mL liquid 40 meq PO QDAY Qty: 1350 3RF methocarbamol 500 mg tablet 500 mg PO TID PRN (Reason: Pain) Qty: 90 2RF Print Language: Czech Stand Alone Forms: PCP List
[2024-10-10 00:50] LABS: BASOPHILS % (AUTO) 0.2 %; EOSINOPHILS # (AUTO) 0.2 10^3/uL (0.0-0.7); EOSINOPHILS % (AUTO) 2.2 %; HCT - HEMATOCRIT 40.2 % (37.0-47.0); HGB - HEMOGLOBIN 11.8 g/dL (12.0-16.0); LYMPHOCYTES # (AUTO) 2.4 10^3/uL (1.5-3.5); LYMPHOCYTES % (AUTO) 24.9 %; MEAN CORPUSCULAR HEMOGLOBIN 25.1 pg (27.0-31.0); MEAN CORPUSCULAR HGB CONC 29.4 g/dL (32.0-36.0); MEAN CORPUSCULAR VOLUME 85.4 fL (81.0-99.0); MEAN PLATELET VOLUME 9.4 fL (7.9-10.8); MONOCYTES # (AUTO) 0.7 10^3/uL (0.0-1.0); MONOCYTES % (AUTO) 7.6 %; NEUTROPHILS # (AUTO) 6.1 10^3/uL (1.5-6.6); NEUTROPHILS % (AUTO) 64.1 %; PLT - PLATELET COUNT 254 10^3/uL (130-450); RED BLOOD COUNT 4.71 10^6/uL (4.20-5.40); RED CELL DISTRIBUTION WIDTH 18.6 % (12.0-15.0); WHITE BLOOD COUNT 9.6 x10^3/uL (4.8-10.8)
[2024-10-10 00:54] LABS: VBG PH 7.508 (7.31-7.41); VBG PO2 73.7 mmHg (25-47); VBG TOTAL CO2 40.7 mmol/L (24-29)
--- OUTSIDE RECORDS SUMMARY | 2024-10-10 00:56 | EXTERNAL MEDICAL SUMMARY RPT | Continuity of Care Document ---
Author Organization [place] Address [address] [address] Phone Care Team Providers Care Conservation Technician Name Role Phone Unavailable Unavailable Unavailable Erlinda Thurston Unavailable Unavailable Allergies and Intolerances date description facility reaction severity 2024-10-02 09:52:19 [facility] (no reactio n) Severe 2024-10-02 09:52:19 [facility] (no reactio n) Severe 2024-10-02 09:52:19 [facility] (no reactio n) (no severity) 2024-10-02 09:52:19 [facility] (no reactio n) (no severity) 2024-10-02 09:52:19 [facility] (no reactio n) (no severity) 2024-10-02 09:52:19 [facility] (no reactio n) (no severity) 2024-10-02 09:52:19 [facility] (no reactio n) (no severity) 2024-10-02 09:52:19 [facility] (no reactio n) Severe Medications date description facility 2024-10-08 00:[address] [facility] 2024-10-02 00:[address] [facility] Problems date description facility 2024-07-22 14:27 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 [facility] 2024-07-22 14:27 Unspecified atrial fibrillation [facility] 2024-07-22 14:27 Chronic kidney disease, stage 3 b [facility] 2024-07-22 14:57 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 [facility] 2024-07-22 14:57 Unspecified atrial fibrillation [facility] 2024-07-22 14:57 Chronic kidney disease, stage 3 b [facility] 2024-08-04 12:58 Anxiety state, unspecified [facility] 2024-08-04 12:58 Swelling, mass, or [facility] in [facility]58 [facility]24-[facility]04 12:58 Allergy, unspecified, not elsew here classified [facility] 2024-08-04 12:58 Emphysema, unspecified [facility] 2024-08-04 12:58 Low back pain, unspecified eloisa [facility] 2024-08-04 12:58 Dorsalgia, unspecified [facility] 2024-08-04 12:58 Pain in leg, unspecified [facility] 2024-08-04 12:58 Other specified [facility] 2024-08-04 12:58 Shortness of breath [facility] 2024-08-04 12:58 Chest pain, unspecified [facility] 2024-08-04 12:58 Unspecified abdominal pain eloisa [facility] [employer] 2024-08-04 12:58 Other specified inju jerry of right ankle, initial encounter [facility] 2024-08-04 12:58 Toxic effect of veno m of bees, accidental (unintentional), initial encounter [facility] 2024-08-04 12:58 Angioneurotic edema, initial en counter [facility] 2024-08-26 12:48 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 [facility] 2024-08-26 12:48 Unspecified atrial fibrillation [facility] 2024-08-26 12:48 Chronic kidney disease, stage 3 b [facility] 2024-08-27 07:35 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 [facility] 2024-08-27 07:35 Unspecified atrial fibrillation [facility] 2024-08-27 07:35 Chronic kidney disease, stage 3 b [facility] 2024-08-29 15:13 Chronic obstructive pulmonary disease with (acute) exacerbat [facility] 2024-10-02 00:[address] [facility] 2024-10-02 00:[address] [facility] 2024-10-[address] [facility] 2024-10-02 17:45 Chronic obstructive pulmonary disease with (acute) [facility] 2024-10-03 02:23 [facility] 06[facility]56 [facility] 2024-10-[facility] 11:20 [facility] 2024-10-04 10:47 [facility] 2024-10-05 12:37 [facility] 23:05 [facility] 2024-10-07 13:16 [facility] 2024-10-07 14:13 [facility] 2024-10-07 15:24 [facility] 2024-10-07 15:27 [facility] 2024-10-08 08:13 [facility] 2024-10-08 09:07 [facility] 2024-10-08 10:02 [facility] 2024-10-08 13:33 [facility]24-[facility]08 16:20 [facility] 2024-10-09 08:09 [facility] 2024-10-09 08:13 [facility] Procedures date description facility 2024-10-04 00:00 Computed tomography of head or brain without contrast [facility] 2024-10-03 00:00 [facility] 2024-10-02 [facility]00 [facility] [address] [facility]:00 Computed tomography angiography of chest with contrast for pulmonary embolus [facility] 2024-10-02 00:00 PICC line placement [facility] ital Results/Labs test date facility value unit notes Result panel 1 Influenza virus A RNA [Presence] in Upper respiratory specimen by LIZZY with probe dete 2024-10-02 09:20:07 [facility] Flu a negative (missing) (missing) Result panel 2 Influenza virus B RNA [Presence] in Upper respiratory specimen by LIZZY with probe dete 2024-10-02 09:20:07 [facility] Flu b negative (missing) (missing) Result panel 3 Respiratory syncytial virus RNA [Presence] in Nasopharynx by LIZZY with probe detection 2024-10-02 09:20:07 [facility] Negative (missing) (missing) Result panel 4 Influenza virus A RNA [Presence] in Upper respiratory specimen by LIZZY with probe dete 2024-10-02 09:20:07 [facility] Flu a negative (missing) (missing) Result panel 5 Influenza virus B RNA [Presence] in Upper respiratory specimen by LIZZY with probe dete 2024-10-02 09:20:07 [facility] Flu b negative (missing) (missing) Result panel 6 Respiratory syncytial virus RNA [Presence] in Nasopharynx by LIZZY with probe detection 2024-10-02 09:20:07 [facility] Negative (missing) (missing) Result panel 7 Serum procalcitonin measurement 2024-10-02 09:54:07 [facility] 0.504 ng/mL (miss ing) Result panel 8 Serum procalcitonin measurement 2024-10-02 09:54:07 [facility] 0.504 ng/mL (miss ing) Result panel 9 Venous blood pH measurement 2024-10-02 10:15:07 [facility] 7.41 (missing) (miss ing) Result panel 10 Venous blood partial pressur e of carbon dioxide measurement 2024-10-02 10:15:07 [facility] 46.4 m mHg (missing) Result panel 11 Venous blood partial pressur e of oxygen measurement 2024-10-02 10:15:07 [facility] 49 mmHg (missing) Result panel 12 Total CO2 [facility] 2024-10-02 10:19 [facility] 29 mmo l/l (missing) HCO3 [facility] 2024-10-02 10:19 [facility] 30 mmol/l (missing) Fractionated [facility] 2024-10-02 10:[address] [place] [address] 36.0 % % (missing ) Base Excess [facility] 2024-10-02 10:19 [facility] 4.1 m mol/l (missing) PCO2 [facility] 2024-10-02 10: [facility] 46.4 mmhg (missing) PO2 [facility]BG 2024-10-02 10:19 [facility] 49 mmhg (missing) pH [facility]BG 2024-10-02 10:19 [facility] 7.41 (missin g) (missing) Oxygen Saturation [facility] 2024-10-02 10:19 [facility] 85 % (missing) Result panel 13 Procalcitonin 2024-10-02 10:36 [facility] 0.504 ng/ ml Social History date description facility 2024-10-02 00:00 Smokes tobacco daily (finding) [facility] Vital Signs date measurement value units 2024-10-02 00:00 BMI 48.0 kg/m2 2024-10-02 00:00 BP_diastolic 58 mmHg 2024-10-02 00:00 BP_systolic 127 mmHg 2024-10-02 00:00 heart_rate 78 /min 2024-10-02 00:00 height_metric 152.4 cm 2024-10-02 00:00 height_metric 160.02 cm 2024-10-02 00:00 height_standard 60 in 2024-10-02 00:00 height_standard 63 in 2024-10-02 00:00 o2_saturation 95 % 2024-10-02 00:00 respiration_rate 31 /min 2024-10-02 00:00 temperature_metric 37.11 C 2024-10-02 00:00 temperature_standard 98.8 F 2024-10-02 00:00 weight_metric 111.58 kg 2024-10-02 00:00 weight_standard 245.99 lb 2024-10-07 00:00 weight_metric 114 kg 2024-10-07 00:00 weight_standard 251.33 lb 2024-10-08 00:00 BP_diastolic 58 mmHg 2024-10-08 00:00 BP_systolic 116 mmHg 2024-10-08 00:00 heart_rate 65 /min 2024-10-08 00:00 o2_saturation 95 % 2024-10-08 00:00 respiration_rate 24 /min 2024-10-08 00:00 temperature_metric 36.56 C 2024-10-08 00:00 temperature_standard 97.8 F
[2024-10-10] MEDS: FUROSEMIDE 40 MG/4 ML VIAL IVP STA (01:01)
[2024-10-10 01:14] LABS: ALBUMIN 3.3 g/dL (3.2-5.5); ALBUMIN/GLOBULIN RATIO 1.3 (1.0-2.2); BILIRUBIN,TOTAL 0.3 mg/dL (0.2-1.0); CALCIUM 8.9 mg/dL (8.5-10.3); CREATININE 0.9 mg/dL (0.6-1.3); POTASSIUM 4.6 mmol/L (3.5-4.5); TOTAL PROTEIN 5.9 g/dL (6.4-8.9)
--- NOTE | 2024-10-10 01:14 | XRAY Report ---
PROCEDURE: XR Chest 1V INDICATIONS: Chest Pain TECHNIQUE: One view of the chest was acquired. COMPARISON: 12/30/2023 FINDINGS: Surgical changes and devices: Left chest wall generator with cardiac leads. Lungs and pleura: No pleural effusions or pneumothorax. No consolidation. Mediastinum: Cardiomegaly. Normal contour otherwise. Bones and chest wall: No suspicious bony lesions. Overlying soft tissues appear unremarkable. IMPRESSION: No acute cardiopulmonary process. Reviewed by: Marlon Gonzalez MD on 10/10/2024 1:13 AM PDT Approved by: Marlon Gonzalez MD on 10/10/2024 1:13 AM PDT Station ID: [id number]
[2024-10-10] MEDS: CEFEPIME 2 GM in SODIUM CHLORIDE 0.9% MINIBAG 100 ML IV SCH (01:50)
[2024-10-10] MEDS ORDERED: VANCOMYCIN 1 GM VIAL ONE (01:51)
[2024-10-10 01:54] LABS: B. PARAPERTUSSIS- RESP PCR PAN NOT DETECTED; B. PERTUSSIS- RESP PCR PANEL NOT DETECTED; C. PNEUMONIAE- RESP PCR PANEL NOT DETECTED; CORONAVIRUS 229E-RESP PCR NOT DETECTED; CORONAVIRUS HKU1-RESP PCR NOT DETECTED; CORONAVIRUS NL63-RESP PCR NOT DETECTED; CORONAVIRUS OC43-RESP PCR NOT DETECTED; HUMAN METAPNEUMOVIRUS NOT DETECTED; INFLUENZA A- RESP PCR PANEL NOT DETECTED; INFLUENZA B - RESP PCR PANEL NOT DETECTED; M. PNEUMONIAE- RESP PCR PANEL NOT DETECTED; PARAINFLUENZA VIRUS 1 DETECTED; PARAINFLUENZA VIRUS 2 NOT DETECTED; PARAINFLUENZA VIRUS 4 NOT DETECTED; RHINOVIRUS/ENTEROVIRUS NOT DETECTED; RSV- RESP PCR PANEL NOT DETECTED; SARS-CoV-2 -RESP PCR PANEL NOT DETECTED
[2024-10-10] MEDS ORDERED: VANCOMYCIN INJ 2 GM in SODIUM CHLORIDE 0.9% 250 ML IV SCH (02:00)
[2024-10-10] MEDS: VANCOMYCIN INJ 2 GM in SODIUM CHLORIDE 0.9% 500 ML IV STA (02:04)
[2024-10-10] MEDS: METOCLOPRAMIDE 10 MG/2 ML VIAL IVP STA (03:51)
--- NOTE | 2024-10-10 07:35 | ED Physician Documentation ---
ED Addendum Addendum Addendum: After change of shift, I checked on the patient and she is sleeping and breathing comfortably. No apparent wheezing or labored breathing. She arouses gently and stirs to a touch and voice but I allowed her to mostly stay asleep. With she had had labs done around midnight and chest x-ray 2. She remains on BiPAP with good oxygenation at 96%. pCO2 seems to have a good platform. I will check morning labs with a repeat VBG as well as electrolytes and blood count. Her white count had been normal. Electrolytes had been good with good renal function and normal potassium. However she has diuresed approximately 650 mL by [employer] from midnight till now so be good to reassess electrolytes. She is positive for parainfluenza 1. Presumably this is causing some COPD exacerbation. She does not appear to be in notable CHF with the very low BNP and chest x-ray does not look like vascular congestion. Blood pressure is adequate at 161/68. Heart rate is at 60 with a paced rhythm and some PVCs. She is on antiarrhythmics of amiodarone and mexiletine. Will see if she is able to take those as would be good for her to stay on. She is also on a anticoagulant. There is a cardiology consult faxed in on the chart from July from Dr. Jara and Roverto Dumont. The patient is to remain on those medications and most recent ejection fraction was 30 to 35% with a reported nonischemic cardiomyopathy related to PVCs in the past and diabetes. The patient had received antibiotic coverage for concern of pneumonia. Next doses are not yet due. Might be reasonable to continue. Will see if she got a steroid bolus and if not likely provide that. Watch sugars. I will repeat the chest x-ray this morning as well to ensure no secondary problems related to BiPAP or evolving pneumonia etc. We we will see if we have ICU beds become available this morning where she is able to be weaned off BiPAP. Last attempt was a few hours ago when she had respiratory distress off of it. This was by report. Discharge Plan Discharge Condition: Fair Clinical Impression: Hypoxia, Acute exacerbation of CHF (congestive heart failure) Prescriptions: No Action furosemide 80 mg tablet See Rx Instructions .ROUTE .COMPLEX Qty: 180 0RF Dose Instruction: Take 1 tablet by mouth twice daily Rx Instructions: Take 1 tablet by mouth twice daily budesonide 0.5 mg/2 mL suspension for nebulization See Rx Instructions .ROUTE .COMPLEX Qty: 60 3RF Dose Instruction: USE 1 VIAL IN NEBULIZER TWICE DAILY. RINSE MOUTH AFTER USE Rx Instructions: USE 1 VIAL IN NEBULIZER TWICE DAILY. RINSE MOUTH AFTER USE montelukast 10 mg tablet See Rx Instructions .ROUTE .COMPLEX Qty: 90 0RF Dose Instruction: TAKE 1 TABLET BY MOUTH ONCE DAILY NEEDED FOR ALLERGIES Rx Instructions: TAKE 1 TABLET BY MOUTH ONCE DAILY NEEDED FOR ALLERGIES Eliquis 5 mg tablet See Rx Instructions .ROUTE .COMPLEX Qty: 180 3RF Dose Instruction: Take 1 tablet by mouth twice daily Rx Instructions: Take 1 tablet by mouth twice daily albuterol sulfate [ProAir HFA] 90 mcg/actuation HFA aerosol inhaler 2 puff inhalation Q4H PRN (Reason: Wheezing) Qty: 18 12RF epinephrine 0.3 MG/0.3 ML auto-injector 0.3 mg IM PRN PRN (Reason: Anaphylaxis) Patient Comments: INJECT CONTENTS OF 1 PEN NEEDED FOR SEVERE ALLERGIC REACTION 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 cetirizine 10 MG tablet 10 mg PO DAILY PRN (Reason: Allergy Symptoms) fluticasone propionate 120 SPRAYS spray,suspension 1 sprays intranasal BID ascorbic acid (vitamin C) 1,000 MG tablet 1,000 mg PO DAILY pantoprazole 40 MG tablet,delayed release (DR/EC) 40 mg PO BID Entresto 1 EACH tablet 1 tab PO BID mexiletine 150 mg capsule 150 mg PO TID promethazine 25 mg tablet 25 mg PO Q6H baclofen 10 mg tablet 10 mg PO TID Qty: 15 0RF albuterol sulfate 2.5 mg /3 mL (0.083 %) solution for nebulization 2.5 mg inhalation Q6H PRN (Reason: soa) Rx Instructions: USE 1 VIAL IN NEBULIZER FOUR TIMES DAILY NEEDED FOR COUGHING, WHEEZING OR SHORTNESS OF BREATH amiodarone 100 mg tablet 100 mg PO QDAY methocarbamol 500 mg tablet 1 mg PO TID PRN (Reason: spasms) Rx Instructions: Take 1 tablet by mouth three times a day as needed for muscle spasm multivit with min-folic acid [One-A-Day Women's 50 Plus] 0.4 mg tablet 1 tab PO QDAY diazepam 5 mg tablet 5 mg PO BID PRN (Reason: anxiety) (DME) Accu-Chek Guide test strips Strip See Rx Instructions .Route Rx Instructions: As directed (DME) blood-glucose meter [Accu-Chek Guide Me Glucose Mtr] Misc See Rx Instructions .Route Rx Instructions: As directed (DME) Permanent Disabled Placard Misc See Rx Instructions .Route Rx Instructions: As directed (DME) lancets [Accu-Chek Softclix Lancets] Misc See Rx Instructions .ROUTE .MEDSUPPLY Qty: 100 Patient Comments: USE 1 LANCET TO CHECK BLOOD GLUCOSE ONCE DAILY Rx Instructions: As directed metoprolol succinate 25 mg tablet extended release 24 hr 25 mg PO QDAY Rx Instructions: Take 1 tablet by mouth once a day Jardiance 10 mg tablet 10 mg PO QDAY potassium chloride 40 mEq/15 mL liquid 40 meq PO QDAY Qty: 1350 3RF methocarbamol 500 mg tablet 500 mg PO TID PRN (Reason: Pain) Qty: 90 2RF Print Language: Kuwaiti Stand Alone Forms: PCP List
[2024-10-10 07:39] LABS: VBG BASE EXCESS 17.8 mmol/L (-2 - +2); VBG PCO2 64.5 mmHg (41-51); VBG PH 7.422 (7.31-7.41); VBG PO2 51.4 mmHg (25-47); VBG TOTAL CO2 44.5 mmol/L (24-29)
[2024-10-10 07:42] LABS: BASOPHILS % (AUTO) 0.2 %; EOSINOPHILS # (AUTO) 0.2 10^3/uL (0.0-0.7); EOSINOPHILS % (AUTO) 2.4 %; HCT - HEMATOCRIT 41.1 % (37.0-47.0); HGB - HEMOGLOBIN 12.3 g/dL (12.0-16.0); LYMPHOCYTES % (AUTO) 23.3 %; MEAN CORPUSCULAR HEMOGLOBIN 25.7 pg (27.0-31.0); MEAN CORPUSCULAR HGB CONC 29.9 g/dL (32.0-36.0); MEAN PLATELET VOLUME 9.4 fL (7.9-10.8); MONOCYTES # (AUTO) 0.7 10^3/uL (0.0-1.0); MONOCYTES % (AUTO) 7.5 %; NEUTROPHILS # (AUTO) 5.7 10^3/uL (1.5-6.6); NEUTROPHILS % (AUTO) 65.5 %; PLT - PLATELET COUNT 238 10^3/uL (130-450); RED BLOOD COUNT 4.78 10^6/uL (4.20-5.40); RED CELL DISTRIBUTION WIDTH 18.7 % (12.0-15.0); WHITE BLOOD COUNT 8.8 x10^3/uL (4.8-10.8)
[2024-10-10 07:52] LABS: CALCIUM 8.8 mg/dL (8.5-10.3); CREATININE 0.8 mg/dL (0.6-1.3); MAGNESIUM 2.2 mg/dL (1.7-2.3); POTASSIUM 4.3 mmol/L (3.5-4.5)
[2024-10-10] MEDS: DEXAMETHASONE 10 MG/ML VIAL IVP STA (08:17)
[2024-10-10] MEDS: ALBUTEROL NEB 2.5 MG/3 ML INH STA (08:24)
--- OUTSIDE RECORDS SUMMARY | 2024-10-10 08:25 | EXTERNAL MEDICAL SUMMARY RPT | Continuity of Care Document ---
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 Name Role Phone Unavailable Unavailable Unavailable Erlinda Thurston Unavailable Unavailable Allergies and Intolerances date description facility reaction severity 2024-10-02 09:52:19 [facility] (no reactio n) Severe 2024-10-02 09:52:19 [facility] (no reactio n) Severe 2024-10-02 09:52:19 [facility] (no reactio n) (no severity) 2024-10-02 09:52:19 [facility] (no reactio n) (no severity) 2024-10-02 09:52:19 [facility] (no reactio n) (no severity) 2024-10-02 09:52:19 [facility] (no reactio n) (no severity) 2024-10-02 09:52:19 [facility] (no reactio n) (no severity) 2024-10-02 09:52:19 [facility] (no reactio n) Severe Medications date description facility 2024-10-08 00:00 Oxycodone [facility] 2024-10-02 00:00 Pantoprazole [facility] Problems date description facility 2024-07-22 14:27 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 [facility] 2024-07-22 14:27 Unspecified atrial fibrillation [facility] 2024-07-22 14:27 Chronic kidney disease, stage 3 b [facility] 2024-07-22 14:57 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 [facility] 2024-07-22 14:57 Unspecified atrial fibrillation [facility] 2024-07-22 14:57 Chronic kidney disease, stage 3 b [facility] 2024-08-04 12:58 Anxiety state, unspecified [facility] 2024-08-04 12:58 Swelling, mass, or lump in head and neck [facility] 12:58 [facility] 12:58 Allergy, unspecified, not elsew here classified [facility] 2024-08-04 12:58 Emphysema, unspecified [facility] 2024-08-04 12:58 Low back pain, unspecified eloisa [facility] 2024-08-04 12:58 Dorsalgia, unspecified [facility] 2024-08-04 12:58 Pain in leg, unspecified [facility] 2024-08-04 12:58 Other specified cough [facility] 2024-08-04 12:58 Shortness of breath [facility] 2024-08-04 12:58 Chest pain, unspecified [facility] 2024-08-04 12:58 Unspecified abdominal pain eloisa [employer] 2024-08-04 12:58 Other specified inju jerry of right ankle, initial encounter [employer] 2024-08-04 12:58 Toxic effect of veno m of bees, accidental (unintentional), initial encounter [facility] 2024-08-04 12:58 Angioneurotic edema, initial en counter [employer] 2024-08-26 12:48 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 [employer] 2024-08-26 12:48 Unspecified atrial fibrillation [facility] 2024-08-26 12:48 Chronic kidney disease, stage 3 b [employer] 2024-08-27 07:35 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 [facility] 2024-08-27 07:35 Unspecified atrial fibrillation [facility] 2024-08-27 07:35 Chronic kidney disease, stage 3 b [employer] 2024-08-29 15:13 Chronic obstructive pulmonary disease with (acute) exacerbat [facility] 2024-10-02 00:00 Hypomagnesemia [facility] 2024-10-02 00:00 Hypokalemia [facility] 2024-10-02 00:00 Pneumonia [facility] 2024-10-02 17:45 Chronic obstructive pulmonary disease with (acute) [facility] 2024-10-03 02:23 [facility] 06:56 [facility] 2024-10-03 11:20 [facility] 2024-10-04 10:47 [facility] 2024-10-05 12:37 [facility]05 [facility] 2024-10-07 13:16 [facility] 2024-10-07 14:13 [facility] 2024-10-07 15:24 [facility] 2024-10-07 15:27 [facility] 2024-10-08 08:13 [facility] 2024-10-08 09:07 [facility] 2024-10-08 10:02 [facility] 2024-10-08 13:33 [facility] 2024-[facility]08 16:20 [facility] 2024-10-09 08:09 [facility] 2024-10-09 08:13 [facility] Procedures date description facility 2024-10-04 00:00 Computed tomography of head or brain without contrast [facility] 2024-10-03 00:00 [facility] 2024-10-02 [facility]:00 [facility]00 Computed tomography angiography of chest with contrast for pulmonary embolus [facility] 2024-10-02 00:00 PICC line placement [facility] ital Results/Labs test date facility value unit notes Result panel 1 Influenza virus A RNA [Presence] in Upper respiratory specimen by LIZZY with probe dete 2024-10-02 09:20:07 [facility] Flu a negative (missing) (missing) Result panel 2 Influenza virus B RNA [Presence] in Upper respiratory specimen by LIZZY with probe dete 2024-10-02 09:20:07 [facility] Flu b negative (missing) (missing) Result panel 3 Respiratory syncytial virus RNA [Presence] in Nasopharynx by LIZZY with probe detection 2024-10-02 09:20:07 [facility] Negative (missing) (missing) Result panel 4 Influenza virus A RNA [Presence] in Upper respiratory specimen by LIZZY with probe dete 2024-10-02 09:20:07 [facility] Flu a negative (missing) (missing) Result panel 5 Influenza virus B RNA [Presence] in Upper respiratory specimen by LIZZY with probe dete 2024-10-02 09:20:07 [facility] Flu b negative (missing) (missing) Result panel 6 Respiratory syncytial virus RNA [Presence] in Nasopharynx by LIZZY with probe detection 2024-10-02 09:20:07 [facility] Negative (missing) (missing) Result panel 7 Serum procalcitonin measurement 2024-10-02 09:54:07 [facility] 0.504 ng/mL (miss ing) Result panel 8 Serum procalcitonin measurement 2024-10-02 09:54:07 [facility] 0.504 ng/mL (miss ing) Result panel 9 Venous blood pH measurement 2024-10-02 10:15:07 [facility] 7.41 (missing) (miss ing) Result panel 10 Venous blood partial pressur e of carbon dioxide measurement 2024-10-02 10:15:07 [facility] 46.4 m mHg (missing) Result panel 11 Venous blood partial pressur e of oxygen measurement 2024-10-02 10:15:07 [facility] 49 mmHg (missing) Result panel 12 Total CO2 [facility] 2024-10-02 10:19 [facility] 29 mmo l/l (missing) HCO3 [facility] 2024-10-02 10:19 [facility] 30 mmol/l (missing) Fractionated [facility] 2024-10-02 10:[address] [place] [address] 36.0 % % (missing ) Base Excess [facility] 2024-10-02 10:19 [facility] 4.1 m mol/l (missing) PCO2 [facility] 2024-10-02 10: [facility] 46.4 mmhg (missing) PO2 [facility] 2024-10-02 10:19 [facility] 49 mmhg (missing) pH [facility] 2024-10-02 10:19 [facility] 7.41 (missin g) (missing) Oxygen Saturation [facility] 2024-10-02 10:19 [facility] 85 % (missing) Result panel 13 Procalcitonin 2024-10-02 10:36 [facility] 0.504 ng/ ml Social History date description facility 2024-10-02 00:00 Smokes tobacco daily (finding) [facility] Vital Signs date measurement value units 2024-10-02 [...]
--- NOTE | 2024-10-10 08:34 | XRAY Report ---
PROCEDURE: XR Chest 1V INDICATIONS: interval eval, dyspnea, on BiPAP TECHNIQUE: One view of the chest was acquired. COMPARISON: 10/10/2024 0108 hours. FINDINGS: Surgical changes and devices: Pacemaker Lungs and pleura: No pleural effusions or pneumothorax. Question mild interstitial pulmonary edema. Mediastinum: Mediastinal contours appear normal. Heart size is mildly enlarged. Bones and chest wall: No suspicious bony lesions. Overlying soft tissues appear unremarkable. IMPRESSION: Question mild interstitial pulmonary edema Reviewed by: Papo Reyes MD on 10/10/2024 8:33 AM PDT Approved by: Papo Reyes MD on 10/10/2024 8:33 AM PDT Station ID: [id number]
[2024-10-10] MEDS ORDERED: ONDANSETRON 4 MG/2 ML VIAL IVP PRN (08:46)
[2024-10-10] MEDS ORDERED: ACETAMINOPHEN 325 MG TABLET PO PRN (08:46)
[2024-10-10] MEDS ORDERED: ONDANSETRON ODT 4 MG TABLET TL PRN (08:46)
[2024-10-10] MEDS ORDERED: CETIRIZINE 10 MG TABLET PO PRN (08:46)
[2024-10-10] MEDS ORDERED: ALBUTEROL NEB 2.5 MG/3 ML INH PRN (08:46)
[2024-10-10] MEDS ORDERED: SODIUM CHLORIDE FLUSH 0.9% 10 ML SYRINGE IVP PRN (08:46)
[2024-10-10] MEDS ORDERED: IPRATROPIUM 0.2 MG/ML NEB INH PRN (08:46)
[2024-10-10] MEDS ORDERED: BUDESONIDE 0.5 MG/2 ML NEB INH SCH (09:00)
[2024-10-10] MEDS ORDERED: METOPROLOL SUCCINATE 25 MG TABLET PO SCH (09:00)
--- NOTE | 2024-10-10 09:18 | HISTORY & PHYSICAL EXAMINATION ---
Chief Complaint Chief Complaint Chief Complaint: short of breath, severe History of Present Illness Admitted From Admitted From:: home History Obtained From Records Reviewed: [facility] History obtained from: patient and Dr. Finch Exam Limitations: on BiPAP History of Present Illness HPI Comment/Other: 59-year-old female who has a history of COPD, JAVID not on CPAP, tobacco use, paroxysmal atrial fibrillation on apixaban/metoprolol/mexiletine/amiodarone, nonischemic cardiomyopathy that presents with sudden worsening of chronic shortness of breath. She is a personality disorder that is undiagnosed and is a difficult communicator. Frequently noncompliant with medications. She is on home O2 with an oxygen tank and concentrator. She is followed by [facility] , cardiology Dr. Yevgeniy Jara and was seen July of this year for follow-up. 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 Some of her medications are contraindicated in the face of COPD but her therapeutic options are very narrow because of complicated comorbidities. He is following her QT. She was last hospitalized in [facility] October 02, 2024 for chest congestion, body aching. She presented with shortness of breath, nausea, being ill for 7 days. She was hypoxemic and hypotensive in their ER. She shared that she had been vomiting and having diarrhea for 2 to 3 days as well. A PICC line was placed, she was given IV fluids, pressors were started. She was treated for septic shock secondary to viral pneumonia, acute exacerbation of COPD, acute on chronic respiratory failure with hypoxia, chronic systolic heart failure with an LVEF of 25% during that admission, when she had a seizure episode where she was described as shaking for 90 seconds and a rapid response was called October 02, 2024. Valium given. CT of the head was negative. She was stable for discharge on October 07 but appealed the discharge. On October 08 she still felt short of breath and changed her mind and thought she was ready to go home. She had wheezing on lung exam at discharge which was felt to be a chronic feature. I was able to speak to her granddaughter Tushar Muñoz since it was hard for the patient to speak due to shortness of breath and BiPAP. She was discharged from [facility] and continued to be short of breath with coughing, wheezing. Never really recovered to baseline. But no fevers, phlegm production. The shortness of breath finally progressed to the point that the patient just could not breathe and EMS was called. No fever, no chills, no abdominal pain, no urgency. Is incontinent of urine. Patient lives in the fifth wheel with her . She ambulates with a cane in the fifth wheel. Granddaughter comes daily to come help from. Family is making plans for this patient and her to move back to [place] because more children are there to help her. While the patient has 4 children, none of them live locally. Is only her granddaughter that lives nearby. The patient is able to take a shower, use the bathroom on her own. Her and granddaughter make meals, clean the fifth floor. Patient does not drive. Granddaughter drives her to appointments. Occasionally she leaves the house to go to the store and uses the motor cart at [employer] to get around. shortness of breath that started getting much worse last night. She called EMS and she was only able to speak in 2-3 word sentences and O2 sats were 83% on room air. She was immediately placed on BiPAP and she improved her O2 sats to 90%, given sublingual nitroglycerin. She did not have any antecedent infectious symptomatology. Vital signs when she was in the emergency room just after midnight she had a temperature of 36.3, heart rate of 64, respirations 30, blood pressure 99/51. Overnight, in addition to the BiPAP, she has received antibiotics with vancomycin and cefepime, steroids, diuresis with Lasix 80 mg IV push. Her tachypnea has gradually improved and she is down to a rate of 23 this morning. Hypotension has improved and she is at 111/72. But she still on BiPAP. 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 As such she is back on BiPAP. Her chest x-ray is not helpful. The first chest x-ray when she came to the ER was without acute cardiopulmonary process. No CHF. The second chest x-ray also says a question of mild interstitial pulmonary edema. There are no infiltrates. Her carbon dioxide is 38. She is usually chronically compensating and the highest she has ever been is 40. BUN and creatinine are normal. BNP is 177. Troponin was 14, repeat troponin 12. White cell count was normal at 8.8, hemoglobin 12.3. I am admitting the patient for respiratory failure. She is being treated as CHF in the ER but with a normal BNP, and a chest x-ray that does not indicate CHF, I hesitate to overly aggressively diurese her. She has known COPD and I will focus on inhaled nebulizers, inhaled steroids, but will not be continuing the cefepime and vancomycin. Past medical history 1. COPD on oxygen 2. Continued tobacco abuse with last tobacco 2 months ago 3. CAD, mild w hx of Vfib arrest 4. Hypertension 5. Hyperlipidemia 6. Atrial fibrillation 7. Type 2 diabetes mellitus 8. Depression with anxiety and claustrophobia 9. Chronic back pain 10. History of anaphylaxis to bee stings who presented with admission in December 2023 with anaphylaxis from a bee sting. She gave himself 2 epinephrine shots in the field and it did not work. Had to call EMS. Intubated by EMS and en route to the hospital received steroids and epinephrine. Admitted December 24, extubated December 28 and discharged December 31. 11. C. difficile positive diarrhea with hospitalization December 2023. 12. Chronic headache 13. Comminuted fracture of the base of the first proximal phalanx of the foot December 2023 14. GERD 15. Ectopic 16. Chronic vision loss 17. Chronic sinusitis 18. Chronic hearing loss 19. nonischemic cardiomyopathy with an EF of 30-45% with history of V-fib arrest, status post DC ICD September 2019, status post CRTD upgrade via [facility] February 2023, recurrent V. tach/V-fib on meds for suppression Past surgical history is that of a cholecystectomy, EGD, knee replacements in both knees, hysterectomy, LEEP, cardiac cath, rhinoplasty Meds/Allgy Home Medications Ambulatory Orders Medication Instructions Recorded Confirmed epinephrine 0.3 mg/0.3 mL 0.3 mg IM PRN PRN Anaphylaxi s 12/11/21 10/10/24 injection, auto-injector cetirizine 10 mg tablet 10 mg PO DAILY PRN Allergy S ymptoms 02/08/22 10/10/24 fluticasone propionate 50 1 sprays intranasal BID 01/1410/10/24 mcg/actuation nasal spray,suspension ascorbic acid (vitamin C) 1,000 mg 1,000 mg PO DAILY 0 07/20/22 10/10/24 tablet pantoprazole 40 mg tablet,delayed 40 mg PO BID 4 10/10/24 release sacubitril 24 mg-valsartan 26 mg 1 tab PO BID 12/26/23 10/10/24 tablet (Entresto) Permanent Disabled Placard 03/21/24 10/10/24 albuterol sulfate 2.5 mg/3 mL 2.5 mg inhalation Q6H [place] N soa 03/21/24 10/10/24 (0.083 %) solution for nebulization blood sugar diagnostic (Accu-Chek 03/21/24 10/10/24 Guide test strips) blood-glucose meter (Accu-Chek 03/21/24 10/10/24 Guide Me Glucose Meter) diazepam 5 mg tablet 5 mg PO BID PRN anxiety 12/0510/10/24 lancets (Accu-Chek Softclix #100 ea 03/21/24 10/10/24 Lancets) mexiletine 150 mg capsule 150 mg PO TID 03/21/2410/10 multivitamin with minerals-folic 1 tab PO QDAY 4 10/10/24 acid 0.4 mg tablet (One-A-Day Women's 50 Plus) promethazine 25 mg tablet 25 mg PO Q6H NV 03/21/24 furosemide 80 mg tablet See Rx Instructions .Route 0 05/21/24 10/10/24 .COMPLEX #180 tabs metoprolol succinate 25 mg 25 mg PO QDAY 05/28/2409/13 tablet,extended release 24 hr empagliflozin 10 mg tablet 10 mg PO QDAY 05/30/2409/13 (Jardiance) potassium chloride 40 mEq/15 mL 40 meq (15 mL) PO QDAY #1,350 mL 05/30/24 10/10/24 oral liquid budesonide 0.5 mg/2 mL suspension See Rx Instructions .Route 07/02/24 10/10/24 for nebulization .COMPLEX #60 mL baclofen 10 mg tablet 10 mg PO TID #15 tabs 10/10/24 methocarbamol 500 mg tablet 500 mg PO TID PRN Pain #90 tabs 07/11/24 10/10/24 montelukast 10 mg tablet See Rx Instructions .Route 0 07/16/24 10/10/24 .COMPLEX #90 tabs apixaban 5 mg tablet (Eliquis) See Rx Instructions .Ro [place] 07/25/24 10/10/24 .COMPLEX #180 tabs albuterol sulfate 90 mcg/actuation 2 puff inhalation Q 4H PRN Wheezing 09/18/24 10/10/24 aerosol inhaler (ProAir HFA) #18 grams amiodarone 200 mg tablet 100 mg PO DAILY 10/10/24 Allergies Allergies Allergy/AdvReac Type Severity Reaction Status Date / Time codeine (Codeine) Allergy Severe Swelling/Hi Verified 10/10/24 00:38 ves erythromycin base Allergy Severe Anaphylaxis Verified 10/10/24 00:38 (Erythromycin Base) gabapentin Allergy Severe Anaphylaxis Verified 10/10/24 00:38 Latex, Natural Rubber Allergy Severe Blisters Verified 10/10/24 00:38 pamabrom (From Midol) Allergy Severe Respiratory Verified 10/10/24 00:38 pyrilamine maleate * (From Allergy Severe Respiratory Verified 10/10/24 00:38 Midol) shellfish derived Allergy Severe Anaphylaxis Verified 10/10/24 00:38 venom-honey bee (bee venom Allergy Severe Anaphylaxis Verified 10/10/24 00:38 (honey bee)) chlorhexidine Allergy Intermediate Rash Verified 10/10/24 00:38 ketorolac (From Toradol) Allergy Unknown Unknown Verified 10/10/24 09:03 acetaminophen Allergy Unknown Verified 10/10/24 00:38 doxycycline Allergy gastrointes Verified 10/10/24 00:38 tinal/vomit ing morphine Allergy Respiratory Verified 10/10/24 00:38 ondansetron Allergy Respiratory Verified 10/10/24 00:38 piperacillin (From Zosyn) AdvReac Rash Verified 10/10/24 00:38 tazobactam (From Zosyn) AdvReac Rash Verified 10/10/24 00:38 PFSH Active Problems All Active Problems (Updated 12/31/23 @ 16:02 by Oren Gordon MD) Acute respiratory failure with hypoxia and hypercapnia (Acute) Acute exacerbation of chronic obstructive pulmonary disease (Acute) Parainfluenza type 1 infection (Acute) Acute respiratory distress (Acute) Acute exacerbation of CHF (congestive heart failure) (Acute) UTI (urinary tract infection) (Acute) Hypokalemia (Acute) Anaphylactic reaction to bee sting (Acute) Acute bronchitis due to human metapneumovirus (Acute) Acute on chronic systolic heart failure (Acute) Secondary bacterial pneumonia (Acute) Chronic systolic congestive heart failure (Acute) Acute renal failure (Acute) Dehydration (Acute) Hypoxia (Acute) RSV infection (Acute) Acute on chronic kidney failure (Acute) Acute on chronic kidney failure (Acute) Bilateral arm pain (Acute) Hypotension (Chronic) Morbid obesity with BMI of 45.0-49.9, adult (Chronic) Hx of coronary artery disease (Chronic) Hx of cardiac arrhythmia (Chronic) Systolic heart failure (Chronic) Chronic HFrEF (heart failure with reduced ejection fraction) (Chronic) Sleep apnea (Chronic) History of latent tuberculosis (Chronic) Tachypnea (Chronic) Dyspnea on minimal exertion (Chronic) Nonproductive cough (Chronic) COPD (chronic obstructive pulmonary disease) (Chronic) Tobacco dependence in remission (Chronic) Depressive disorder (Chronic) Diabetes mellitus type 2 in obese (Chronic) Insomnia (Chronic) Hypertension (Chronic) Chronic atrial fibrillation (Chronic) Cardiomyopathy (Chronic) Caffeine dependence (Chronic) Diastolic congestive heart failure with preserved left ventricular function, NYHA class 2 (Chronic) Arrhythmia (Chronic) Drug-induced hyperglycemia (Chronic) Cervical radiculopathy (Chronic) Chronic pain (Chronic) Status post left knee replacement (Chronic) Medical History Medical History (Updated 10/10/24 @ 10:01 by Loretta Coles MD) COPD exacerbation Respiratory failure with hypoxia Acute respiratory failure with hypoxemia Family History Family History (Updated 10/10/24 @ 09:41 by Loretta Coles MD) Father Cancer CAD (coronary artery disease) Diabetes Mother CAD (coronary artery disease) Diabetes Social History Social History (Updated 05/30/24 @ 09:53 by Fatou Spring, RN, BSN) Smoking Status: Current every day smoker If you are a former smoker, when did you quit? (Date/Year): 2 months ago Number of Years Smoked: 50 How many cigarettes a day do you smoke? (20 cigarettes=1 Pk): 4 Do you dip or chew tobacco?: No Patient requests smoking cessation consult: No Initiate information on smoking cessation: No Living arrangement: At home Living Condition: With family Relationship: Level: Independent Do you feel safe in your home environment?: Yes Suffered physical, verbal, emotional, or financial abuse?: No History of Abuse: No ETOH Use: None Frequency: Weekly Substance Use: denies use POLST Patient has POLST: No POLST Status: Full Code Review of Systems Status of ROS: unobtainable due to medical condition Prior Level of Functionality: Able to go to the bathroom, bathe herself, feed herself. Is not on oxygen concentrator. Uses a cane because she lives in 1/5 wheel. However relies on and granddaughter to make meals, clean the house. Exam Exam Vital Signs: Vital Signs x48h Temp Pulse Resp BP Pulse Ox 10/10/24 08:27 71 28 H 10/10/24 08:27 85 10/10/24 08:00 75 24 143/58 H 98 10/10/24 07:30 80 26 H 161/68 H 98 10/10/24 07:00 36.6 C 81 24 106/78 98 10/10/24 06:30 37 C 71 23 111/72 10/10/24 06:00 72 23 119/93 H 96 10/10/24 05:57 82 10/10/24 05:30 72 22 137/89 H 94 10/10/24 05:16 66 10/10/24 05:00 71 23 119/89 96 10/10/24 04:30 79 22 119/73 96 10/10/24 04:01 27 H 108/55 L 91 L 10/10/24 03:30 24 105/54 L 96 10/10/24 03:00 72 25 H 107/78 96 10/10/24 02:32 26 H 95 10/10/24 02:30 36.6 C 72 40 H 115/67 90 L 10/10/24 02:25 72 18 108/63 92 10/10/24 02:08 63 10/10/24 01:47 72 26 H 107/59 L 92 10/10/24 01:25 96 10/10/24 01:17 82 22 113/45 L 90 L Constitutional 5 feet 3 inches tall, 110 kg. Morbidly obese elderly female on a BiPAP mask resp rate 22, sitting up, eyes open, nodding her head yes or no appropriately. Interacting with nursing and RT appropriately. HENMT normocephalic and head/scalp atraumatic Eyes EOMs intact bilaterally Neck/C-Spine supple Chest palpation of chest normal Large AP diameter and a short statured morbidly obese female Respiratory Mild tachypnea, no use of accessory muscles. I am not asking her to speak in sentences right now. Wheezing, some rhonchi. Cardiovascular normal heart rate noted Gastrointestinal abdomen soft to palpation, nontender to palpation and normoactive bowel sounds Large, obese, abdominal pannus Back/Pelvis spine normal to inspection Extremities full ROM Mild edema. The toes of her feet have rubor from dependent venous stasis Neurology spout positioner II-XII intact, no movement abnormality noted, no focal motor deficit noted and no sensory deficits noted Psychiatry mental status grossly normal and oriented x3 Skin skin color normal Conclusion/Plan Problem List (1) Acute respiratory failure with hypoxia and hypercapnia: Plan: I discussed the case with her granddaughter who is a INDUSTRIAL RENDERER. Patient was not able to participate in care planning as of this moment because of the BiPAP. She has acute respiratory failure on chronic respiratory failure. This patient is usually on home O2. I do not have records from [place] to review. As such I cannot estimate how severe pneumonia was without those films. On our films here, there is no definitive sign of pneumonia on CXR, nml WBC, no fever.. She continues to be positive for parainfluenza as she was at [facility]. But there is no antecedent history in the last few days of an acute URI. This may be holdover from her previous infection. BNP is low. Chest x-ray does not show congestive heart failure. Although she does have a history of congestive heart failure, I do not think that is playing a part in new destabilization of baseline respiratory status. Overall I think she is just a very reactive COPD here who was not quite completely recovered from her previous episode due to parainfluenza. I will give her nebs, IV steroids, inhaled steroids,. Hold off on antibiotics for now but I will check procalcitonin to assess if needs them. This patient is well- known to our service. She usually stays for days. As such I did not put her in observation will we will start her in inpatient from the beginning.When she is less short of breath and off BiPAP I will have OT and PT materials clerk. Her granddaughter says that the patient will never go to a SNF. But I could resume signature home health at home. (2) Acute exacerbation of chronic obstructive pulmonary disease: Plan: As above. Because she seems to have a highly allergic component to asthma, I will also continue her Singulair, Zyrtec and add IV steroids 40 mg IVP for 3 doses, inhaled steroids, plus the albuterol via neb. (3) Chronic HFrEF (heart failure with reduced ejection fraction): Plan: I do not feel like she is in acute congestive heart failure. Her BNP is above 100 but it is only 199 or 177. I don't hear crackles and the CXR doesn't clearly indicate fluid overload. Her cardiomyopathy is nonischemic. Because of ectopy and recurrent V-fib or V. tach, she is on multiple medications to suppress the arrhythmias. She also has an AICD. Those medications will be resumed. Because she is an ICU she will be on telemetry. She is on Entresto but we do not have that on formulary. I discussed this with pharmacy but pharmacy said there is no real substitution for this. So the patient will bring in her bottle and I am asking pharmacy to let the patient use her own med. (4) Diabetes mellitus type 2 in obese: Plan: At home she is on empagliflozin. Her last A1c with us was in February 2024 where she was 6.9%. My treatment will be sliding scale insulin, check an A1c tomorrow. (5) Chronic atrial fibrillation: Plan: On rate control with metoprolol but is also on ectopy suppression with amiodarone and mexiletine. Those medications will be continued. Her anticoagulation will also be continued. Lab Results Lab results reviewed: Yes 10/10/24 07:32 10/10/24 07:32 Core Measures Anticipated LOS I expect patient to be DC'd or transferred within 96 hours.: Yes DVT/VTE - Prophylaxis VTE/DVT Prophylaxis med ordered at admit?: Yes
[2024-10-10] MEDS: PRENATAL VITAMIN TABLET PO SCH (09:24)
[2024-10-10] MEDS: PANTOPRAZOLE 40 MG TABLET PO SCH (09:24)
[2024-10-10] MEDS: PROMETHAZINE 25 MG TABLET PO SCH (09:24)
[2024-10-10] MEDS: APIXABAN 5 MG TABLET PO SCH ×2 (09:25→11:05)
[2024-10-10] MEDS: SODIUM CHLORIDE FLUSH 0.9% 10 ML SYRINGE IVP SCH (09:25)
[2024-10-10] MEDS: METOPROLOL SUCCINATE 25 MG TABLET PO SCH (11:05)
[2024-10-10] MEDS: AMIODARONE 200 MG TABLET PO SCH ×2 (11:05→12:54)
[2024-10-10] MEDS: BACLOFEN 10 MG TABLET PO SCH ×2 (11:05→15:08)
[2024-10-10] MEDS: PANTOPRAZOLE 40 MG VIAL IVP SCH (11:06)
[2024-10-10] MEDS: ASCORBIC ACID 500 MG TABLET PO SCH (11:27)
[2024-10-10] MEDS: BUDESONIDE 0.5 MG/2 ML NEB INH SCH (12:26)
[2024-10-10] MEDS: IPRATROPIUM/ALBUTEROL 3 ML NEB INH SCH (12:26)
[2024-10-10] MEDS: methylPREDNISolone SUCCINATE 40 MG/ML VIAL IVP SCH (12:50)
[2024-10-10] MEDS: ENTRESTO PO SCH (13:16)
[2024-10-10] MEDS: VANCOMYCIN INJ 1 GM in SODIUM CHLORIDE 0.9% 250 ML IV SCH (14:31)
--- NOTE | 2024-10-10 14:35 | PHARMACY PROGRESS NOTE ---
Best Possible Medication History Admit Date and Time: 10/10/24 Home Medications Medication Instructions Recorded Confirmed Type epinephrine 0.3 mg/0.3 mL 0.3 mg IM PRN PRN Anaphylaxi s 12/11/21 10/10/24 History injection, auto-injector cetirizine 10 mg tablet 10 mg PO DAILY PRN Allergy S ymptoms 02/08/22 10/10/24 History fluticasone propionate 50 1 sprays intranasal BID 01/1410/10/24 History mcg/actuation nasal spray,suspension ascorbic acid (vitamin C) 1,000 mg 1,000 mg PO DAILY 0 07/20/22 10/10/24 History tablet pantoprazole 40 mg tablet,delayed 40 mg PO BID 4 10/10/24 History release sacubitril 24 mg-valsartan 26 mg 1 tab PO BID 12/26/23 10/10/24 History tablet (Entresto) Permanent Disabled Placard 03/21/24 10/10/24 History albuterol sulfate 2.5 mg/3 mL 2.5 mg inhalation Q6H NE N soa 03/21/24 10/10/24 History (0.083 %) solution for nebulization blood sugar diagnostic (Accu-Chek 03/21/24 10/10/24 H istory Guide test strips) blood-glucose meter (Accu-Chek 03/21/24 10/10/24 Hist ory Guide Me Glucose Meter) diazepam 5 mg tablet 5 mg PO BID PRN anxiety 12/0510/10/24 History lancets (Accu-Chek Softclix #100 ea 03/21/24 10/10/24 History Lancets) mexiletine 150 mg capsule 150 mg PO Q12H 03/21/2409/13 History multivitamin with minerals-folic 1 tab PO DAILY 10/10/24 History acid 0.4 mg tablet (One-A-Day Women's 50 Plus) promethazine 25 mg tablet 25 mg PO Q6H NV 03/21/24 History furosemide 80 mg tablet See Rx Instructions .Route 0 05/21/24 10/10/24 Rx .COMPLEX #180 tabs empagliflozin 10 mg tablet 10 mg PO DAILY 05/30/24 History (Jardiance) budesonide 0.5 mg/2 mL suspension See Rx Instructions .Route 07/02/24 10/10/24 Rx for nebulization .COMPLEX #60 mL methocarbamol 500 mg tablet 500 mg PO TID PRN Pain #90 tabs 07/11/24 10/10/24 Rx montelukast 10 mg tablet See Rx Instructions .Route 0 07/16/24 10/10/24 Rx .COMPLEX #90 tabs apixaban 5 mg tablet (Eliquis) See Rx Instructions .Ro [place] 07/25/24 10/10/24 Rx .COMPLEX #180 tabs albuterol sulfate 90 mcg/actuation 2 puff inhalation Q 4H PRN Wheezing 09/18/24 10/10/24 Rx aerosol inhaler (ProAir HFA) #18 grams amiodarone 200 mg tablet 100 mg PO DAILY 10/10/24 History potassium chloride 40 mEq/15 mL 40 meq PO DAILY 10/10/24 History oral liquid Processed by: Pharmacy Medications reviewed in ED?: No Medication History completed: Yes Patient Interview: Pt unable to participate (patient answered a few questions, but not for sure on her answer) Secondary Source(s): Prescription bottles (changed mexiletine to q12h based on prescription) and Insurance records [facility] Statement: As the person ultimately responsible for medication therapy, providers are able to order a medication from an existing home medication list in [facility] via the "Reconcile Routine" prior to Confirmation of that medication by sales support assistant. Such practice is discouraged except when the physician, in their clinical judgment, deems that a medical need exists for a medication without regard to previous use.
[2024-10-10] MEDS: FUROSEMIDE 40 MG TABLET PO SCH (15:17)
[2024-10-10] MEDS: Mexiletine 150 mg capsule PO SCH (15:17)
[2024-10-10] MEDS: diazePAM 5 MG TABLET PO PRN (16:00)
[2024-10-10] MEDS: MONTELUKAST 10 MG TABLET PO SCH (20:34)
[2024-10-11] MEDS: oxyCODONE 5 MG TABLET PO PRN (00:06)
[2024-10-11] MEDS: methocarbamoL 500 MG TABLET PO PRN (01:35)
[2024-10-11 04:55] LABS: BASOPHILS % (AUTO) 0.1 %; HGB - HEMOGLOBIN 12.9 g/dL (12.0-16.0); LYMPHOCYTES # (AUTO) 0.6 10^3/uL (1.5-3.5); LYMPHOCYTES % (AUTO) 6.2 %; MEAN CORPUSCULAR HEMOGLOBIN 25.4 pg (27.0-31.0); MEAN CORPUSCULAR VOLUME 84.6 fL (81.0-99.0); MEAN PLATELET VOLUME 9.5 fL (7.9-10.8); MONOCYTES # (AUTO) 0.2 10^3/uL (0.0-1.0); MONOCYTES % (AUTO) 2.4 %; NEUTROPHILS # (AUTO) 8.1 10^3/uL (1.5-6.6); NEUTROPHILS % (AUTO) 90.5 %; PLT - PLATELET COUNT 277 10^3/uL (130-450); RED BLOOD COUNT 5.08 10^6/uL (4.20-5.40); RED CELL DISTRIBUTION WIDTH 19.1 % (12.0-15.0); WHITE BLOOD COUNT 8.9 x10^3/uL (4.8-10.8)
[2024-10-11 05:05] LABS: VBG PH 7.377 (7.31-7.41)
[2024-10-11 05:13] LABS: CALCIUM 9.5 mg/dL (8.5-10.3); CREATININE 0.9 mg/dL (0.6-1.3); MAGNESIUM 2.3 mg/dL (1.7-2.3); PHOSPHORUS 2.8 mg/dL (2.5-5.0); POTASSIUM 4.8 mmol/L (3.5-4.5)
[2024-10-11] MEDS: POTASSIUM CHLORIDE 20 MEQ/15 ML UDC PO SCH (09:33)
[2024-10-11] MEDS: diazePAM INJ 5 MG/ML SYRINGE IVP ONE (12:05)
[2024-10-11] MEDS: diphenhydrAMINE 25 MG CAPSULE PO PRN (12:06)
[2024-10-11 12:13] LABS: BILIRUBIN,URINE NEGATIVE (NEGATIVE); GLUCOSE, URINE (UA) 500 mg/dL (NEGATIVE); KETONES,URINE (UA) NEGATIVE (NEGATIVE); LEUKOCYTE ESTERASE, URINE NEGATIVE (NEGATIVE); NITRITE,URINE NEGATIVE (NEGATIVE); OCCULT BLOOD,URINE NEGATIVE (NEGATIVE); PH,URINE 6.5 PH (5.0-7.5); PROTEIN,URINE NEGATIVE (NEGATIVE); UROBILINOGEN,URINE 0.2 (NORMAL) E.U./dL (NORMAL)
[2024-10-11 12:22] LABS: BACTERIA,URINE None Seen /HPF (None Seen); CLARITY,URINE CLEAR (CLEAR); RBC,URINE None Seen /HPF (0-5); SQUAMOUS EPITHELIAL CELL,UR RARE Squamous (<= Few); WBC,URINE 0-3 /HPF (0-5)
--- NOTE | 2024-10-11 16:57 | PROVIDER PROGRESS NOTE ---
Progress Note Progress Note Progress Note: October 11, 2024 4:45 pm Subjective; Yesterday the patient was in severe respiratory distress in the ER that required BiPAP. After she was treated in the ER and transferred to ICU I examined her and she was still on BiPAP, but less tachypneic. Able to meet my gaze and answer yes/no questions. Today she is sitting upright in bed, no facemask. The BiPAP goes on and off depending on her sudden shortness of breath. Able to eat breakfast. Able to answer my questions. Questions are answered in very quick 2-3 word sentences because of the tachypnea. She denies chest pain, palpitations, noticeably fatigued and tachypneic when she starts getting excited about talking to me. Phlegm production is the same. Nasal tone of voice, cough brings up clear or white phlegm. Some eustachian tube dysfunction. Her main complaint this morning is a severe bilateral occipital headache. She said is the worst she has ever had. She is miserable with it. Oxycodone does not help. She is allergic to Tylenol, she is allergic to Toradol. When she st arts talking about it, she says she is so miserable and then she burst into tears. No blurred vision. No shortness of breath with this. Her neck is not stiff with this. No meningismal complaints. She is also complaining of urgency and frequency and dysuria. Exam: Short stature to 5 foot 3 inches tall, 112 kg with obesity. Blood pressure is 120/72, pulse 72, respirations 23, temperature 36.7, O2 sat 96% on 3 L. Thick neck without ability to discern JVD. But supple. Lungs have faint, scattered bilateral wheezing with rhonchi. Respiratory rate is consistently in the 20s. As high as 29 this morning. Again, BiPAP goes on and off depending on her shortness of breath. Irregular rate and rhythm Obese abdominal pannus soft, nontender, with normal bowel sounds Extremities with the same mild edema as yesterday. Again her toes have rubor as does the sole of her foot. No clubbing or cyanosis. Neurologically cranial nerves appear grossly intact. Alert and oriented to person, place, time and situation. Full range of motion in reaching across the midline consistently to adjust the bed, or bring food to her mouth. No focal deficits. Crying. I reviewed labs today. Sodium 139. Potassium high at 4.8. Yesterday she was 4.3. Chloride is low at 98. Carbon dioxide is down to 35 from 38 last night. BUN 21, creatinine 0.9. Calcium magnesium and phosphorus are normal. Yesterday BNP was 177, today is 310. White cell count and hemoglobin continue to be normal from yesterday's labs. Blood cultures from October 10 are without growth after 1 day I ordered a urinalysis for complaints of cystitis and she has glucosuria. Negative leukocyte Estrace. Rare squamous cells. 0-3 white cells. No red cells seen. No bacteria seen. No culture will be done. Conclusion/Plan Problem List (1) Acute respiratory failure with hypoxia and hypercapnia: Plan: She has acute respiratory failure on chronic respiratory failure. This patient is usually on home O2. I do not have records from [place] to review. I did ask for them yesterday, and those records have not come back. As such I cannot estimate how severe pneumonia was without those films. On our films here, there is no definitive sign of pneumonia on CXR, nml WBC, no fever.. She continues to be positive for parainfluenza as she was at [facility]. But there is no antecedent history in the last few days of an acute URI. This may be holdover from her previous infection. BNP Was low yesterday. But it is a little higher today. I still do not think this woman has severe congestive heart failure. Chest x-ray does not show congestive heart failure. Overall I think she is just a very reactive COPD here who was not quite completely recovered from her previous episode due to parainfluenza. I am giving her nebs, IV steroids, inhaled steroids, I will continue to hold off on antibiotics for now and procalcitonin is pending. I will review that when Ready from lab. (2) Acute exacerbation of chronic obstructive pulmonary disease: Plan: As above. Because she seems to have a highly allergic component to asthma, I will also continue her Singulair, Zyrtec and add IV steroids 40 mg IVP for 3 doses, inhaled steroids, plus the albuterol via neb. She has improved from admission to now. She is not always on the BiPAP. But still markedly tachypneic and short of breath with nasal tone of voice and congested lungs. I will continue current treatment for another day and reassess tomorrow for possible discharge. When she goes home, she would like home health. And I will order that. (3) Chronic HFrEF (heart failure with reduced ejection fraction): Plan: I do not feel like she is in acute congestive heart failure. Her BNP is above 100 but it was only 199 or 177. I don't hear crackles and the CXR doesn't clearly indicate fluid overload. Her cardiomyopathy is nonischemic. Because of ectopy and recurrent V-fib or V. tach, she is on multiple medications to suppress the arrhythmias. She also has an AICD. Those medications have been resumed. Because she is an ICU, she will be on telemetry. She is on Entresto but we do not have that on formulary. I discussed this with pharmacy but pharmacy said there is no real substitution for this. So the patient will bring in her bottle and pharmacy is letting the patient use her own med. (4) Diabetes mellitus type 2 in obese: Plan: At home she is on empagliflozin. Her last A1c with us was in February 2024 where she was 6.9%. My treatment is sliding scale insulin, and I did not order A1c so I will check it tomorrow's labs. Today she is asking if she can take her home medicine of empagliflozin and I will order that through pharmacy. (5) Chronic atrial fibrillation: Plan: On rate control with metoprolol but is also on ectopy suppression with amiodarone and mexiletine. Those medications have been continued. Her anticoagulation will also be continued. (6) Symptoms of UTI UA done today and there is no cystitis. I was going to order fosfomycin but no antibiotics for that now (7) Severe Headache Pupils are reactive. No nuchal rigidity. Is a constant, pounding headache. Associated with crying because it so severe. But she is allergic to Toradol, Tylenol. I am going to try giving her Valium 5 mg one-time injection.
[2024-10-11] MEDS: **Empagliflozin [Jardiance] 10 mg tablet PO SCH (18:33)
[2024-10-11] MEDS: INSULIN LISPRO 300 UNIT/3 ML PEN SUBQ SCH (21:03)
[2024-10-12 04:39] LABS: BASOPHILS % (AUTO) 0.2 %; EOSINOPHILS # (AUTO) 0.2 10^3/uL (0.0-0.7); EOSINOPHILS % (AUTO) 1.5 %; HCT - HEMATOCRIT 37.5 % (37.0-47.0); HGB - HEMOGLOBIN 11.4 g/dL (12.0-16.0); LYMPHOCYTES # (AUTO) 2.3 10^3/uL (1.5-3.5); LYMPHOCYTES % (AUTO) 22.9 %; MEAN CORPUSCULAR HEMOGLOBIN 25.8 pg (27.0-31.0); MEAN CORPUSCULAR HGB CONC 30.4 g/dL (32.0-36.0); MEAN CORPUSCULAR VOLUME 84.8 fL (81.0-99.0); MEAN PLATELET VOLUME 9.3 fL (7.9-10.8); MONOCYTES # (AUTO) 0.8 10^3/uL (0.0-1.0); MONOCYTES % (AUTO) 7.7 %; NEUTROPHILS # (AUTO) 6.6 10^3/uL (1.5-6.6); NEUTROPHILS % (AUTO) 66.8 %; PLT - PLATELET COUNT 249 10^3/uL (130-450); RED BLOOD COUNT 4.42 10^6/uL (4.20-5.40); RED CELL DISTRIBUTION WIDTH 18.8 % (12.0-15.0); WHITE BLOOD COUNT 9.8 x10^3/uL (4.8-10.8)
[2024-10-12 04:50] LABS: VBG PH 7.462 (7.31-7.41)
[2024-10-12 04:51] LABS: CALCIUM, IONIZED 1.16 mmol/L (1.09-1.30)
[2024-10-12 04:52] LABS: CALCIUM 8.6 mg/dL (8.5-10.3); POTASSIUM 3.7 mmol/L (3.5-4.5)
[2024-10-12 04:53] LABS: MAGNESIUM 2.1 mg/dL (1.7-2.3); PHOSPHORUS 3.9 mg/dL (2.5-5.0)
[2024-10-12] MEDS ORDERED: diphenhydrAMINE 25 MG CAPSULE PO PRN (08:08)
[2024-10-12] MEDS: guaiFENesin 600 MG TABLET PO SCH (12:33)
[2024-10-12 13:16] LABS: ESTIMATED AVERAGE GLUCOSE 183 mg/dL (70-100)
--- NOTE | 2024-10-12 15:43 | PROVIDER PROGRESS NOTE ---
Progress Note Progress Note Progress Note: October 12, 2024 3:30 PM She is sitting up in her chair. Eating. Nursing reports she is still markedly tachypneic with minimal exertion. She is getting up to go to the bathroom with a standby assist. She is feeding herself. But gets very tachypneic and tachycardic and it takes her a while to recover by the time she gets back in bed or the chair. The headache that was making her frantic has resolved. Her main pain is leg pain. It hurts from the hip all the way down to her feet. This is a chronic pain that she always has. Examination: 5 feet 3 inches tall, 112.5 kg. Blood pressure 100/60, pulse 78, respirations 18, 94% on 3 L. At home she is on oxygen. 2 to 3 L appears to be her baseline. Short statured, morbidly obese, pleasant white female. Nasal tone of voice. Chest congestion and throat congestion audible. Neck is supple Rhonchi and wheezing at rest. But no increased respiratory effort or tachypnea. That happens when she gets up to go to the bathroom and nursing reports leukocytes 24. Abdomen is obese, soft, nontender Trace edema around the shins, calves and ankles. Dependent rubor of her toes is always present. Is also present on the soles of her feet. Thickened nails with onychomycosis in the right third toe has a little bit of old bleeding where she says that she tried to cut her own toenails unsuccessfully. Alert and oriented to person, place, time and conversation. When she was admitted she could only speak 2-3 word sentences. I was able to have a normal conversation with her without tachypnea. No focal deficits. I reviewed her labs and sodium, potassium were normal. Carbon dioxide is staying in the mid 30s. Today is 36. BUN is 25, creatinine 1.0. Fasting glucose 150. A1c is 8%, with an average glucose of 183. CBC is normal. Blood cultures continue be negative after 2 days from October 10. Conclusion/Plan Problem List (1) Acute respiratory failure with hypoxia and hypercapnia: Plan: She has acute respiratory failure on chronic respiratory failure. This patient is usually on home O2. I do not have records from [place] to review. I did ask for them on admission, and those records have not come back. As such I cannot estimate how severe pneumonia was without those films. I am asking for those records again today. On our films here, there is no definitive sign of pneumonia on CXR, nml WBC, no fever.. She continues to be positive for parainfluenza as she was at [facility]. But there is no antecedent history in the last few days of an acute URI. This may be holdover from her previous infection. BNP has been 199, 177, 310, and 124 today. I still do not think this woman has severe congestive heart failure. Chest x-ray does not show congestive heart failure. And her procalcitonin was 0.06 on October 11. Overall I think she is just a very reactive COPD here who was not quite completely recovered from her previous episode due to parainfluenza. I am giving her nebs, IV steroids, inhaled steroids. No antibiotics. (2) Acute exacerbation of chronic obstructive pulmonary disease: Plan: As above. Because she seems to have a highly allergic component to asthma, I will also continue her Talon Reagan and only gave IV steroids 40 mg IVP for 3 doses, inhaled steroids, plus the albuterol via neb. She has improved from admission to now. She still needed BiPAP last night. Off BiPAP since 7 AM this morning. Still markedly tachypneic and short of breath with nasal tone of voice and congested lungs. Bilateral wheezing and rhonchi are audible even without a stethoscope. And decompensates with minimal activity of walking to bathroom or getting out of bed. I will continue current treatment for another day . I hope to discharge her today. But in assessing her, she still is too tachypneic to go home safely. When she goes home, she would like home health. And I will order that. (3) Chronic HFrEF (heart failure with reduced ejection fraction): Plan: I do not feel like she is in acute congestive heart failure. I don't hear crackles and the CXR doesn't clearly indicate fluid overload. Her cardiomyopathy is nonischemic. Because of ectopy and recurrent V-fib or V. tach, she is on multiple medications to suppress the arrhythmias. She also has an AICD. Those medications have been resumed. Because she is an ICU, she will be on telemetry. She is on Entresto but we do not have that on formulary. I discussed this with pharmacy but pharmacy said there is no real substitution for this. I have given the order to pharmacy that the patient may use her own medication. She is she is taking her home Entresto.. (4) Diabetes mellitus type 2 in obese: Plan: At home she is on empagliflozin. Her last A1c with us was in February 2024 where she was 6.9%.With this admission her hemoglobin A1c is 8%. My treatment is sliding scale insulin plus her home med of empaglifozin. That appears to be adequate. Yesterday her fasting was 233. Today is 150. No change in management (5) Chronic atrial fibrillation: Plan: On rate control with metoprolol but is also on ectopy suppression with amiodarone and mexiletine. Those medications have been continued. Her anticoagulation will also be continued. (6) Symptoms of UTI UA done and there is no cystitis. (7) Severe Headache on 10/11/24. Resolved. Pupils are reactive. No nuchal rigidity. Is a constant, pounding headache. Associated with crying because it so severe. But she is allergic to Toradol, Tylenol. I am going to try giving her Valium 5 mg one-time injection.
[2024-10-13 04:27] LABS: BASOPHILS % (AUTO) 0.3 %; EOSINOPHILS # (AUTO) 0.2 10^3/uL (0.0-0.7); EOSINOPHILS % (AUTO) 2.6 %; HCT - HEMATOCRIT 37.9 % (37.0-47.0); HGB - HEMOGLOBIN 11.1 g/dL (12.0-16.0); LYMPHOCYTES # (AUTO) 2.9 10^3/uL (1.5-3.5); LYMPHOCYTES % (AUTO) 31.4 %; MEAN CORPUSCULAR HEMOGLOBIN 25.2 pg (27.0-31.0); MEAN CORPUSCULAR HGB CONC 29.3 g/dL (32.0-36.0); MEAN CORPUSCULAR VOLUME 86.1 fL (81.0-99.0); MEAN PLATELET VOLUME 9.6 fL (7.9-10.8); MONOCYTES # (AUTO) 0.9 10^3/uL (0.0-1.0); MONOCYTES % (AUTO) 9.2 %; NEUTROPHILS # (AUTO) 5.2 10^3/uL (1.5-6.6); NEUTROPHILS % (AUTO) 55.6 %; PLT - PLATELET COUNT 264 10^3/uL (130-450); RED CELL DISTRIBUTION WIDTH 19.1 % (12.0-15.0); WHITE BLOOD COUNT 9.4 x10^3/uL (4.8-10.8)
[2024-10-13 04:44] LABS: MAGNESIUM 2.2 mg/dL (1.7-2.3); PHOSPHORUS 4.4 mg/dL (2.5-5.0)
[2024-10-13 04:51] LABS: CALCIUM 8.9 mg/dL (8.5-10.3); CREATININE 1.1 mg/dL (0.6-1.3); POTASSIUM 4.4 mmol/L (3.5-4.5)
[2024-10-13 04:52] LABS: CALCIUM, IONIZED 1.23 mmol/L (1.09-1.30); VBG PH 7.359 (7.31-7.41)
[2024-10-13] MEDS: FUROSEMIDE 40 MG TABLET PO SCH (08:17)
[2024-10-13] MEDS: PHENOL THROAT SPRAY 177 ML MM PRN (09:43)
--- NOTE | 2024-10-13 19:35 | PROVIDER PROGRESS NOTE ---
Progress Note Progress Note Progress Note: October 13, 2024 4 PM Ms. Martin is just wiped out. Even though she is improved from when she was admitted with the severe respiratory distress requiring BiPAP, almost intubation, she is still requiring BiPAP at night. During the day she is severely short of breath with minimal activity just sitting up in bed. Just walking in the room, without a stethoscope, she is rumbling like a washer with wheezing and rhonchi. She still requiring 3 L. In spite of her illness, she is eating well. Her weight was 110 kg on the . She is 112 kg today. Urine output is brisk. The she urinated 3250. The she peed 6275. Yesterday 1700. Exam: Blood pressure is 114/55, pulse 94, respirations 22, 95% on 3 L 5 feet 3 inches 112 kg, short statured morbidly obese female who looks older than stated age. Alert and oriented to person, place and time and situation. She just says that "I am really tired of this". Neck is supple. I cannot assess for JVD Coarse rhonchi both lungs with right worse than left, wheezing both lungs with right worse than left, and as long as she is sitting still and talking to me she is not tachypneic. But if you have her get up and go from supine to sitting or sitting to standing or standing to her chair she becomes severely tachypneic, drops her O2 sats at 3 L, and takes 10 minutes to recover. Regular rate and rhythm. Abdomen soft, obese, nontender. She is getting nystatin for her intertrigo. Legs are without edema everything hurts. She says that she has an 8 out of a 10 pain in her hips and her legs. Neurologically alert and oriented person place and time. Able to feed herself. Helps the nurses with rolling over and sitting up. Needs partial assist with all ADLs I reviewed her labs. Sodium 139, potassium 4.4, chloride 99, carbon dioxide is climbing. She is at 39. I interpret this is alkalotic compensation for chronic respiratory acidosis. With the number climbing it is getting worse. Fasting glucose 99. Before lunch 87. Before dinner 124. White cell count is normal. Hemoglobin is 11.1. Conclusion/Plan Problem List (1) Acute respiratory failure with hypoxia and hypercapnia: Plan: She has acute respiratory failure on chronic respiratory failure. This patient is usually on home O2. I do not have records from [place] to review. I did ask for them on admission, and those records have not come back. As such I cannot estimate how severe pneumonia was without those films. I asked for those records again yesterday, 10/12. On our films here, there is no definitive sign of pneumonia on CXR, nml WBC, no fever.. She continues to be positive for parainfluenza as she was at [facility]. But there is no antecedent history in the last few days of an acute URI. This may be holdover from her previous infection. BNP has been 199, 177, 310, 124, and 74 today. I still do not think this woman has severe congestive heart failure. Chest x-ray does not show congestive heart failure. And her procalcitonin was 0.06 on October 11. Overall I think she is just a very reactive COPD here who was not quite completely recovered from her previous episode due to parainfluenza. I am giving her nebs, IV steroids, inhaled steroids. No antibiotics. (2) Acute exacerbation of chronic obstructive pulmonary disease: Plan: As above. Because she seems to have a highly allergic component to asthma, I will also continue her Singulair, Zyrtec and only gave IV steroids 40 mg IVP for 3 doses, inhaled steroids, plus the albuterol via neb. She has improved from admission to now. She still needs BiPAP last night and gets off during the day. But still markedly tachypneic and short of breath with nasal tone of voice and congested lungs. Bilateral wheezing and rhonchi continue to be audible even without a stethoscope. And decompensates with minimal activity of walking to bathroom or getting out of bed. I will continue current treatment . She is not ready for discharge. She still is too tachypneic to go home safely. When she goes home, she would like home health. And I have ordered that. (3) Chronic HFrEF (heart failure with reduced ejection fraction): Plan: I do not feel like she is in acute congestive heart failure. I don't hear crackles and the CXR doesn't clearly indicate fluid overload. Her cardiomy opathy is nonischemic. Because of ectopy and recurrent V-fib or V. tach, she is on multiple medications to suppress the arrhythmias. She also has an AICD. Those medications have been resumed. Because she is an ICU, she will be on telemetry. She is on Entresto but we do not have that on formulary. I discussed this with pharmacy but pharmacy said there is no real substitution for this. I have given the order to pharmacy that the patient may use her own medication. She is she is taking her home Entresto.. (4) Diabetes mellitus type 2 in obese: Plan: At home she is on empagliflozin. Her last A1c with us was in February 2024 where she was 6.9%.With this admission her hemoglobin A1c is 8%. My treatment is sliding scale insulin plus her home med of empaglifozin. That appears to be adequate. October 11 fasting glucose 233, yesterday was 150, today is 99. No change in management (5) Chronic atrial fibrillation: Plan: On rate control with metoprolol but is also on ectopy suppression with amiodarone and mexiletine. Those medications have been continued. Her anticoagulation will also be continued. (6) Symptoms of UTI resolved. UA done and there is no cystitis. (7) Severe Headache on 10/11/24. Resolved. Pupils are reactive. No nuchal rigidity. Is a constant, pounding headache. Associated with crying because it so severe. But she is allergic to Toradol, Tylenol. I am going to try giving her Valium 5 mg one-time injection.
[2024-10-14 04:58] LABS: BASOPHILS % (AUTO) 0.2 %; EOSINOPHILS # (AUTO) 0.3 10^3/uL (0.0-0.7); EOSINOPHILS % (AUTO) 2.9 %; HCT - HEMATOCRIT 39.8 % (37.0-47.0); HGB - HEMOGLOBIN 11.8 g/dL (12.0-16.0); LYMPHOCYTES # (AUTO) 2.5 10^3/uL (1.5-3.5); MEAN CORPUSCULAR HEMOGLOBIN 25.8 pg (27.0-31.0); MEAN CORPUSCULAR HGB CONC 29.6 g/dL (32.0-36.0); MEAN CORPUSCULAR VOLUME 86.9 fL (81.0-99.0); MEAN PLATELET VOLUME 9.8 fL (7.9-10.8); MONOCYTES # (AUTO) 0.8 10^3/uL (0.0-1.0); MONOCYTES % (AUTO) 8.9 %; NEUTROPHILS # (AUTO) 5.8 10^3/uL (1.5-6.6); PLT - PLATELET COUNT 274 10^3/uL (130-450); RED BLOOD COUNT 4.58 10^6/uL (4.20-5.40); RED CELL DISTRIBUTION WIDTH 18.9 % (12.0-15.0); WHITE BLOOD COUNT 9.4 x10^3/uL (4.8-10.8)
[2024-10-14 05:18] LABS: CALCIUM 9.2 mg/dL (8.5-10.3); POTASSIUM 4.5 mmol/L (3.5-4.5)
--- NOTE | 2024-10-14 20:56 | PROVIDER PROGRESS NOTE ---
Progress Note Progress Note Progress Note: October 14, 2024 3 PM Roxann is still markedly short of breath with minimal exertion. But she is comfortable. Eating all of her food. Down to her 3 L basal nasal cannula. The main thing that bothers her is her legs. They hurt. But that is a chronic problem for her. Nothing new. I think she is b although she is below baseline mobility status, she is not ever going to go to a prison. She already gets [facility]. Blood pressure is 103/64, pulse 81, respiration varies between 18-31 depending on if she is moving. O2 sat is 95% on 3 L. She is a short statured morbidly overweight pleasant white female. Alert and oriented to person, place, time and situation. We voice disagreed about her discharge disposition and that I was think she would benefit from fpc facility but she hates them with the passion. She is left AMA from the m. She is 112.5 kg. Nasal tone of voice with some rhinorrhea and coryza from allergies Shotty adenopathy of the neck and it is a thick neck so I cannot assess for JVD but supple Regular rate and rhythm Coarse airway sounds. Dyspneic with minimal, minimal activity. Rhonchi both lungs. Coughing off-and-on but nonproductive. Abdomen is obese, soft, nontender. Some Monae intertrigo is being treated with nystatin. Extremities thick but no edema. Neurologically alert and oriented to person, place, time and situation. Generalized weakness especially when she tries to get out of bed her legs do not want to fully support her sometimes. Needs a walker or wheelchair. But able to feed herself. Able to watch TV or play on her phone. I reviewed her labs and sodium 137, creatinine 1.0. Potassium 4.5 so I have held her potassium dosing for this morning. Glucose 136. She last received insulin last night before bedtime and it was 1 unit. Her home medications have been resumed and are controlling her glucose well. White cell count is normal. Hemoglobin 11.8. Platelets 274 Conclusion/Plan Problem List (1) Acute respiratory failure with hypoxia and hypercapnia: Plan: She has acute respiratory failure on chronic respiratory failure. This patient is usually on home O2. I do not have records from [place] to review. I did ask for them on admission, and those records have not come back. As such I cannot estimate how severe pneumonia was without those films. I asked for those records again 10/12 and today. On our films here, there is no definitive sign of pneumonia on CXR, nml WBC, no fever.. She continues to be positive for parainfluenza as she was at [facility]. But there is no antecedent history in few days prior to admit of an acute URI. This may be holdover from her previous infection. BNP has been 199, 177, 310, 124, 74 and 82 today. I do not think this woman had severe congestive heart failure as her cause of decompensation. Chest x-ray does not show congestive heart failure. As for pneumonia, her procalcitonin was 0.06 on October 11. Overall I think she is just a very reactive COPD with superimposed bronchiolitis from parainfluenza. She was not quite completely recovered from her previous episode due to parainfluenza. I am giving her nebs, IV steroids, inhaled steroids. No antibiotics. She is down to her baseline oxygen level. Still using BiPAP at night. I do think she should probably go to a fpc facility but she refuses. As such I think the neck step is just to get her home. In her own environment and see if she improves. Continue 3 L nasal cannula. Resume her home health with PT/OT/social work/nurses aide. (2) Acute exacerbation of chronic obstructive pulmonary disease: Plan: As above. Because she seems to have a highly allergic component to asthma, I continued her Singulair, Zyrtec and only gave IV steroids 40 mg IVP for 3 doses, inhaled steroids, plus the albuterol via neb. She improved from admission to now but still needs BiPAP at night and gets off during the day. But still markedly tachypneic and short of breath with nasal tone of voice and congested lungs. Bilateral wheezing and rhonchi continue were audible even without a stethoscope. And decompensates with minimal activity of walking to bathroom or getting out of bed. IV Steroids were only a short time but inhaled steroids have been ongoing. Today I hear rhonchi but they are not nearly as gurgly. She is not rumbling like it close washer. Wheezing is less. If at all. (3) Chronic HFrEF (heart failure with reduced ejection fraction): Plan: I do not feel like she is in acute congestive heart failure. I don't hear crackles and the CXR doesn't clearly indicate fluid overload. Her cardiomyopathy is nonischemic. Because of ectopy and recurrent V-fib or V. tach, she is on multiple medications to suppress the arrhythmias. She also has an AICD. Those medications have been resumed. Because she is an ICU, she will be on telemetry. She is on Entresto but we do not have that on formulary. I discussed this with pharmacy but pharmacy said there is no real substitution for this. I have given the order to pharmacy that the patient may use her own medication. She is she is taking her home Entresto.. (4) Diabetes mellitus type 2 in obese: Plan: At home she is on empagliflozin. Her last A1c with us was in February 2024 where she was 6.9%.With this admission her hemoglobin A1c is 8%. My treatment is sliding scale insulin plus her home med of empaglifozin. That appears to be adequate. (5) Chronic atrial fibrillation: Plan: On rate control with metoprolol but is also on ectopy suppression with amiodarone and mexiletine. Those medications have been continued. Her anticoagulation will also be continued.On physical exam I had a regular rate and rhythm. (6) Symptoms of UTI resolved. UA done and there is no cystitis. (7) Severe Headache on 10/11/24. Resolved. Pupils are reactive. No nuchal rigidity. Is a constant, pounding headache. Associated with crying because it so severe. But she is allergic to Toradol, Tylenol. I ordered 1 dose of valium 5 mg and in worked.
[2024-10-15 05:58] LABS: BASOPHILS % (AUTO) 0.3 %; EOSINOPHILS # (AUTO) 0.3 10^3/uL (0.0-0.7); EOSINOPHILS % (AUTO) 2.9 %; HGB - HEMOGLOBIN 11.3 g/dL (12.0-16.0); LYMPHOCYTES # (AUTO) 2.3 10^3/uL (1.5-3.5); LYMPHOCYTES % (AUTO) 20.6 %; MEAN CORPUSCULAR HEMOGLOBIN 25.2 pg (27.0-31.0); MEAN CORPUSCULAR VOLUME 86.9 fL (81.0-99.0); MEAN PLATELET VOLUME 10.2 fL (7.9-10.8); MONOCYTES # (AUTO) 1.1 10^3/uL (0.0-1.0); MONOCYTES % (AUTO) 9.4 %; NEUTROPHILS # (AUTO) 7.3 10^3/uL (1.5-6.6); NEUTROPHILS % (AUTO) 65.6 %; PLT - PLATELET COUNT 261 10^3/uL (130-450); RED BLOOD COUNT 4.49 10^6/uL (4.20-5.40); RED CELL DISTRIBUTION WIDTH 18.8 % (12.0-15.0); WHITE BLOOD COUNT 11.2 x10^3/uL (4.8-10.8)
[2024-10-15 06:10] LABS: CALCIUM 8.9 mg/dL (8.5-10.3)
[2024-10-15 07:48] VITALS: BP 136/62; TEMP 97.5; O2SAT 95
--- NOTE | 2024-10-15 09:47 | Discharge Summary ---
"Discharge Summary Admit Date: 10/10/24 Discharge Date: 10/15/24 Discharging Provider: Dr. Ronak Dean Primary Care Provider: Rohini Ceron Discharge Facility Name: Home DIAGNOSES Admission Diagnoses: Acute respiratory failure with hypoxia and hypercapnia Acute exacerbation of COPD Heart failure with reduced ejection fraction Diabetes mellitus type 2 Chronic atrial fibrillation Discharge Diagnoses with Status of Each Condition: Acute respiratory failure with hypoxia and hypercapniapatient now back on her home oxygen levels of 3 L. Completed steroids, scheduled DuoNebs. Advised to go to a prison facility for further conditioning, but patient refused. Plan on sending her home today. Continue Lasix on discharge. Acute exacerbation of COPDcontinue Singulair, Zyrtec, inhaled steroids, nebulizer treatments. Heart failure with reduced ejection fractionhas an AICD in place, also has recurrent A-fib/V. tach. Continue Entresto, home medications, oral Lasix. Type 2 diabetes mellituscontinue empagliflozin. Chronic atrial fibrillationcontinue metoprolol, amiodarone, mexiletine. Continue anticoagulation. Headacheresolved. HPI History of Present Illness: Per Dr. Coles: 59-year-old female who has a history of COPD, JAVID not on CPAP, tobacco use, paroxysmal atrial fibrillation on apixaban/metoprolol/mexiletine/amiodarone, nonischemic cardiomyopathy that presents with sudden worsening of chronic shortness of breath. She is a personality disorder that is undiagnosed and is a difficult communicator. Frequently noncompliant with medications. She is on home O2 with an oxygen tank and concentrator. She is followed by [facility] , cardiology Dr. Yevgeniy Jara and was seen July of this year for follow-up. She was due for an upgrade to her device for the biventricular pacemaker or [employer]. Some of her medications are contraindicated in the face of COPD but her therapeutic options are very narrow because of complicated comorbidities. He is following her QT. She was last hospitalized in [facility] October 02, 2024 for chest congestion, body aching. She presented with shortness of breath, nausea, being ill for 7 days. She was hypoxemic and hypotensive in their ER. She shared that she had been vomiting and having diarrhea for 2 to 3 days as well. A PICC line was placed, she was given IV fluids, pressors were started. She was treated for septic shock secondary to viral pneumonia, acute exacerbation of COPD, acute on chronic respiratory failure with hypoxia, chronic systolic heart failure with an LVEF of 25% during that admission, when she had a seizure episode where she was described as shaking for 90 seconds and a rapid response was called October 02, 2024. Valium given. CT of the head was negative. She was stable for discharge on October 07 but appealed the discharge. On October 08 she still felt short of breath and changed her mind and thought she was ready to go home. She had wheezing on lung exam at discharge which was felt to be a chronic feature. I was able to speak to her granddaughter Tushar Muñoz since it was hard for the patient to speak due to shortness of breath and BiPAP. She was discharged from [facility] and continued to be short of breath with coughing, wheezing. Never really recovered to baseline. But no fevers, phlegm production. The shortness of breath finally progressed to the point that the patient just could not breathe and EMS was called. No fever, no chills, no abdominal pain, no urgency. Is incontinent of urine. Patient lives in the fifth wheel with her . She ambulates with a cane in the fifth wheel. Granddaughter comes daily to come help from. Family is making plans for this patient and her to move back to [place] because more children are there to help her. While the patient has 4 children, none of them live locally. Is only her granddaughter that lives nearby. The patient is able to take a shower, use the bathroom on her own. Her and granddaughter make meals, clean the fifth floor. Patient does not drive. Granddaughter drives her to appointments. Occasionally she leaves the house to go to the store and uses the motor cart at [employer] to get around. shortness of breath that started getting much worse last night. She called EMS and she was only able to speak in 2-3 word sentences and O2 sats were 83% on room air. She was immediately placed on BiPAP and she improved her O2 sats to 90%, given sublingual nitroglycerin. She did not have any antecedent infectious symptomatology. Vital signs when she was in the emergency room just after midnight she had a temperature of 36.3, heart rate of 64, respirations 30, blood pressure 99/51. Overnight, in addition to the BiPAP, she has received antibiotics with vancomycin and cefepime, steroids, diuresis with Lasix 80 mg IV push. Her tachypnea has gradually improved and she is down to a rate of 23 this morning. Hypotension has improved and she is at 111/72. But she still on BiPAP. They try taking her off in these medicare biller hours and she dropped her O2 sats into the 80s again. As such she is back on BiPAP. Her chest x-ray is not helpful. The first chest x-ray when she came to the ER was without acute cardiopulmonary process. No CHF. The second chest x-ray also says a question of mild interstitial pulmonary edema. There are no infiltrates. Her carbon dioxide is 38. She is usually chronically compensating and the highest she has ever been is 40. BUN and creatinine are normal. BNP is 177. Troponin was 14, repeat troponin 12. White cell count was normal at 8.8, hemoglobin 12.3. I am admitting the patient for respiratory failure. She is being treated as CHF in the ER but with a normal BNP, and a chest x-ray that does not indicate CHF, I hesitate to overly aggressively diurese her. She has known COPD and I will focus on inhaled nebulizers, inhaled steroids, but will not be continuing the cefepime and vancomycin. Past medical history 1. COPD on oxygen 2. Continued tobacco abuse with last tobacco 2 months ago 3. CAD, mild w hx of Vfib arrest 4. Hypertension 5. Hyperlipidemia 6. Atrial fibrillation 7. Type 2 diabetes mellitus 8. Depression with anxiety and claustrophobia 9. Chronic back pain 10. History of anaphylaxis to bee stings who presented with admission in December 2023 with anaphylaxis from a bee sting. She gave himself 2 epinephrine shots in the field and it did not work. Had to call EMS. Intubated by EMS and en route to the hospital received steroids and epinephrine. Admitted December 24, extubated December 28 and discharged December 31. 11. C. difficile positive diarrhea with hospitalization December 2023. 12. Chronic headache 13. Comminuted fracture of the base of the first proximal phalanx of the foot December 2023 14. GERD 15. Ectopic 16. Chronic vision loss 17. Chronic sinusitis 18. Chronic hearing loss 19. nonischemic cardiomyopathy with an EF of 30-45% with history of V-fib arrest, status post DC ICD September 2019, status post CRTD upgrade via [facility] February 2023, recurrent V. tach/V-fib on meds for suppression Past surgical history is that of a cholecystectomy, EGD, knee replacements in both knees, hysterectomy, LEEP, cardiac cath, rhinoplasty CONSULTS | PROCEDURES Procedures: Chest x-ray HOSPITAL COURSE Hospital Course: Patient with a 59 year old female with a history of nonischemic cardiomyopathy with an EF of 30-45% with history of V-fib arrest, status post DC ICD September 2019, status post CRTD upgrade via [facility] February 2023, recurrent V. tach/V-fib on meds for suppression, COPD on 3 L of oxygen at home who presented due to shortness of breath. She was treated initially with IV steroids, scheduled Duonebs. She was also diuresed with Lasix. Her oxygen requirements decreased during her stay to just 3L, her home oxygen requirement. She was advised to consider rehab for further conditioning but she refused. She was deemed suitable for discharge home with close follow up with PCP, cardiology, pulmonology. ALLERGIES Allergies Allergy/AdvReac Type Severity Reaction Status Date / Time codeine (Codeine) Allergy Severe Swelling/Hi Verified 10/10/24 00:38 ves erythromycin base Allergy Severe Anaphylaxis Verified 10/10/24 00:38 (Erythromycin Base) gabapentin Allergy Severe Anaphylaxis Verified 10/10/24 00:38 Latex, Natural Rubber Allergy Severe Blisters Verified 10/10/24 00:38 pamabrom (From Midol) Allergy Severe Respiratory Verified 10/10/24 00:38 pyrilamine maleate * (From Allergy Severe Respiratory Verified 10/10/24 00:38 Midol) shellfish derived Allergy Severe Anaphylaxis Verified 10/10/24 00:38 venom-honey bee (bee venom Allergy Severe Anaphylaxis Verified 10/10/24 00:38 (honey bee)) chlorhexidine Allergy Intermediate Rash Verified 10/10/24 00:38 ketorolac (From Toradol) Allergy Unknown Unknown Verified 10/10/24 09:03 acetaminophen Allergy Unknown Verified 10/10/24 00:38 doxycycline Allergy gastrointes Verified 10/10/24 00:38 tinal/vomit ing morphine Allergy Respiratory Verified 10/10/24 00:38 ondansetron Allergy Respiratory Verified 10/10/24 00:38 piperacillin (From Zosyn) AdvReac Rash Verified 10/10/24 00:38 tazobactam (From Zosyn) AdvReac Rash Verified 10/10/24 00:38 MEDICATIONS Ambulatory Orders Medication Instructions Recorded Confirmed epinephrine 0.3 mg/0.3 mL 0.3 mg IM PRN PRN Anaphylaxi s 12/11/21 10/10/24 injection, auto-injector cetirizine 10 mg tablet 10 mg PO DAILY PRN Allergy S ymptoms 02/08/22 10/10/24 fluticasone propionate 50 1 sprays intranasal BID 01/1410/10/24 mcg/actuation nasal spray,suspension ascorbic acid (vitamin C) 1,000 mg 1,000 mg PO DAILY 0 07/20/22 10/10/24 tablet pantoprazole 40 mg tablet,delayed 40 mg PO BID 4 10/10/24 release sacubitril 24 mg-valsartan 26 mg 1 tab PO BID 12/26/23 10/10/24 tablet (Entresto) Permanent Disabled Placard 03/21/24 10/10/24 albuterol sulfate 2.5 mg/3 mL 2.5 mg inhalation Q6H NE N soa 03/21/24 10/10/24 (0.083 %) solution for nebulization blood sugar diagnostic (Accu-Chek 03/21/24 10/10/24 Guide test strips) blood-glucose meter (Accu-Chek 03/21/24 10/10/24 Guide Me Glucose Meter) diazepam 5 mg tablet 5 mg PO BID PRN anxiety 11/12/0510/10/24 lancets (Accu-Chek Softclix #100 ea 03/21/24 10/10/24 Lancets) mexiletine 150 mg capsule 150 mg PO Q12H 03/21/2409/13 multivitamin with minerals-folic 1 tab PO DAILY 10/10/24 acid 0.4 mg tablet (One-A-Day Women's 50 Plus) promethazine 25 mg tablet 25 mg PO Q6H NV 03/21/24 empagliflozin 10 mg tablet 10 mg PO DAILY 05/30/24 (Jardiance) budesonide 0.5 mg/2 mL suspension See Rx Instructions .Route 07/02/24 10/10/24 for nebulization .COMPLEX #60 mL methocarbamol 500 mg tablet 500 mg PO TID PRN Pain #90 tabs 07/11/24 10/10/24 montelukast 10 mg tablet See Rx Instructions .Route 0 07/16/24 10/10/24 .COMPLEX #90 tabs apixaban 5 mg tablet (Eliquis) See Rx Instructions .Ro nondalton 07/25/24 10/10/24 .COMPLEX #180 tabs albuterol sulfate 90 mcg/actuation 2 puff inhalation Q 4H PRN Wheezing 09/18/24 10/10/24 aerosol inhaler (ProAir HFA) #18 grams amiodarone 200 mg tablet 100 mg PO DAILY 10/10/24 furosemide 80 mg tablet 80 mg PO DAILY 10/10/2409/13 potassium chloride 40 mEq/15 mL 40 meq PO DAILY 10/10/24 oral liquid Held on 10/14/24. Instructions: Resume on 10/21/24. Your potassium is a bit high for now. REsume in 1 week. furosemide 40 mg tablet 40 mg PO DAILY #30 tabs 07/09 diazepam 5 mg tablet 5 mg PO BID PRN anxiety 3 da ys #6 10/15/24 tabs PHYSICAL EXAM AT DISCHARGE Vital Signs: Vital Signs x48h Temp Pulse Pulse Resp BP Pulse Ox O2 Flow Rate 10/15/24 07:47 97.5 F L 64 20 136/62 H 95 3 10/15/24 07:05 3 10/15/24 07:05 69 22 General Appearance: positive No acute distress and Alert; negative Anxious Eyes Bilateral: positive Normal inspection, PERRL and EOMI ENT: positive ENT inspection nml, Pharynx nml and No signs of dehydration Neck: positive Nml inspection, Thyroid nml and No JVD Respiratory: positive Chest non-tender, No respiratory distress and Wheezes (mild expiratory wheezing with good air entry bilaterally) Cardiovascular: positive Regular rate & rhythm, No murmur and No gallop; negative Systolic murmur Peripheral Pulses: positive 2+ Abdomen: positive Non-tender, No organomegaly, Nml bowel sounds and No distention Back: positive Nml inspection; negative CVA tenderness (R) or CVA tenderness (L) Skin: positive Color nml, No rash, Warm and Dry Extremities: positive Non-tender, Full ROM, Nml appearance and No pedal edema Neurologic/Psychiatric: positive Oriented x3 and Mood/affect nml LABS 10/15/24 05:16 10/15/24 05:16 FOLLOW UP Follow Up: Follow up with PCP, cardiology, pulmonology. TIME SPENT Time Spent in Discharge (Minutes): 35 Discharge Plan Discharge Patient Disposition: Home Health Service Condition: Fair Prescriptions: New furosemide 40 mg Tablet 40 mg PO DAILY Qty: 30 0RF diazepam 5 mg Tablet 5 mg PO BID PRN (Reason: anxiety) 3 Days Qty: 6 0RF Continued budesonide 0.5 mg/2 mL suspension for nebulization See Rx Instructions .ROUTE .COMPLEX Qty: 60 3RF Dose Instruction: USE 1 VIAL IN NEBULIZER TWICE DAILY. RINSE MOUTH AFTER USE Rx Instructions: USE 1 VIAL IN NEBULIZER TWICE DAILY. RINSE MOUTH AFTER USE montelukast 10 mg tablet See Rx Instructions .ROUTE .COMPLEX Qty: 90 0RF Dose Instruction: TAKE 1 TABLET BY MOUTH ONCE DAILY NEEDED FOR ALLERGIES Rx Instructions: TAKE 1 TABLET BY MOUTH ONCE DAILY NEEDED FOR ALLERGIES Eliquis 5 mg tablet See Rx Instructions .ROUTE .COMPLEX Qty: 180 3RF Dose Instruction: Take 1 tablet by mouth twice daily Rx Instructions: Take 1 tablet by mouth twice daily albuterol sulfate [ProAir HFA] 90 mcg/actuation HFA aerosol inhaler 2 puff inhalation Q4H PRN (Reason: Wheezing) Qty: 18 12RF epinephrine 0.3 MG/0.3 ML auto-injector 0.3 mg IM PRN PRN (Reason: Anaphylaxis) Patient Comments: INJECT CONTENTS OF 1 PEN NEEDED FOR SEVERE ALLERGIC REACTION 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 cetirizine 10 MG tablet 10 mg PO DAILY PRN (Reason: Allergy Symptoms) fluticasone propionate 120 SPRAYS spray,suspension 1 sprays intranasal BID ascorbic acid (vitamin C) 1,000 MG tablet 1,000 mg PO DAILY pantoprazole 40 MG tablet,delayed release (DR/EC) 40 mg PO BID Entresto 1 EACH tablet 1 tab PO BID mexiletine 150 mg capsule 150 mg PO Q12H promethazine 25 mg tablet 25 mg PO Q6H amiodarone 200 mg tablet 100 mg PO DAILY Patient Comments: TAKE 1/2 (ONE-HALF) TABLET BY MOUTH ONCE DAILY furosemide 80 mg tablet 80 mg PO DAILY albuterol sulfate 2.5 mg /3 mL (0.083 %) solution for nebulization 2.5 mg inhalation Q6H PRN (Reason: soa) Rx Instructions: USE 1 VIAL IN NEBULIZER FOUR TIMES DAILY NEEDED FOR COUGHING, WHEEZING OR SHORTNESS OF BREATH multivit with min-folic acid [One-A-Day Women's 50 Plus] 0.4 mg tablet 1 tab PO DAILY diazepam 5 mg tablet 5 mg PO BID PRN (Reason: anxiety) (DME) Accu-Chek Guide test strips Strip See Rx Instructions .Route Rx Instructions: As directed (DME) blood-glucose meter [Accu-Chek Guide Me Glucose Mtr] [facility] See Rx Instructions .Route Rx Instructions: As directed (DME) Permanent Disabled Placard Misc See Rx Instructions .Route Rx Instructions: As directed (DME) lancets [Accu-Chek Softclix Lancets] [facility] See Rx Instructions .ROUTE .MEDSUPPLY Qty: 100 Patient Comments: USE 1 LANCET TO CHECK BLOOD GLUCOSE ONCE DAILY Rx Instructions: As directed Jardiance 10 mg tablet 10 mg PO DAILY methocarbamol 500 mg tablet 500 mg PO TID PRN (Reason: Pain) Qty: 90 2RF Held potassium chloride 40 mEq/15 mL liquid 40 meq PO DAILY Hold Instructions: Resume on 10/21/24. Your potassium is a bit high for now. REsume in 1 week. Activity Restrictions: Activity as Tolerated Diet: Low Sodium Health Concerns: You had been to [facility] because of a bad viral infection and severe shortness of breath. You tell me that they felt that you are now stable for discharge. You thought you were still a little too short of breath to go home. You are only home for a few days and had come back to our emergency room because of severe shortness of breath. We felt that you had bronchiolitis from a viral infection. You already have severe emphysema and you have a touch of congestive heart failure. The bronchiolitis really made your emphysema worse and you will drop your oxygen and have wheezing and coughing and could not do anything because you are so short of breath. He felt like he was suffocating. A chest x-ray does not show congestive heart failure or pneumonia. Her lab test do not show severe infection or pneumonia. Our treatment consisted of really intensifying our treatment of emphysema. Nebulizers, short-term intravenous steroids, inhaled steroids, cough medicines, etc. In the meantime we did resume your usual home medications for your heart. We were not able to give you your Jardiance for a few days because we do not have it on our list here. But you are able to bring in your home Jardiance and take it. I am resuming all of your normal home medications. However cut your Lasix in half. We made you urinate quite a bit and I do not want you to get dehydrated. I also want you to hold taking your potassium for the next week. Your potassium is actually slightly high normal at this time and you do not need to take extra potassium. Instructions for discharge: Please see your primary care provider in the next 1 to 2 weeks so they can check a BMP, and a BN P for your potassium and your congestive heart failure. Eat a low-salt diet Hold off on your potassium pills as instructed above I am resuming home health to hopefully get you stronger at home. I am ordering PT and OT and a bath aide. Print Language: Micronesian Patient Instructions: Bronchiolitis Follow-up Care: Rohini Ceron PA-C [Provider Admit Priv/Credential] -"
== END 2024-10-15 09:35 | disposition home health service (06) | DRG 189 ==
LOC: ED 00:21 → ICU 08:20 → MS2 10-14 20:00
PROVIDERS: ADMIT Specialist; ATTEND Specialist
DX: F17.210 Nicotine dependence, cigarettes, uncomplicated; R51.9 Headache, unspecified; I95.9 Hypotension, unspecified; Z95.0 Presence of cardiac pacemaker; J96.22 Acute and chronic respiratory failure with hypercapnia; Z79.84 Long term (current) use of oral hypoglycemic drugs; J96.21 Acute and chronic respiratory failure with hypoxia; I11.0 Hypertensive heart disease with heart failure; I50.32 Chronic diastolic (congestive) heart failure; Z68.42 Body mass index [BMI] 45.0-49.9, adult; Z87.891 Personal history of nicotine dependence; I48.20 Chronic atrial fibrillation, unspecified; J44.0 Chronic obstructive pulmonary disease with (acute) lower respiratory infection; J44.1 Chronic obstructive pulmonary disease with (acute) exacerbation; F41.8 Other specified anxiety disorders; L30.4 Erythema intertrigo; H69.80 Other specified disorders of Eustachian tube, unspecified ear; I42.8 Other cardiomyopathies; E27.1 Primary adrenocortical insufficiency; Z99.81 Dependence on supplemental oxygen; R53.1 Weakness; J96.01 Acute respiratory failure with hypoxia; Z79.01 Long term (current) use of anticoagulants; I48.91 Unspecified atrial fibrillation; G89.29 Other chronic pain; B34.8 Other viral infections of unspecified site; I25.10 Atherosclerotic heart disease of native coronary artery without angina pectoris; J18.9 Pneumonia, unspecified organism; J10.1 Influenza due to other identified influenza virus with other respiratory manifestations; R35.0 Frequency of micturition; G47.33 Obstructive sleep apnea (adult) (pediatric); R39.15 Urgency of urination; E66.01 Morbid (severe) obesity due to excess calories; I50.23 Acute on chronic systolic (congestive) heart failure; R30.0 Dysuria; E11.9 Type 2 diabetes mellitus without complications